=== PATIENT | male | born 1965 | race Caucasian/White ===

== ENCOUNTER 2016-04-11 13:15 | Emergency (ER) | payer MEDICAID, OTHER ==
[~2016-04-11 13:15] MED LIST: /ADVA50050 INH; ACTI300C PO; ADV500INH INH; ADVA115A INH; ALBU17IN INH; ALBU17IN2 INH; ALBU83IN INH; AVAP150T PO; AVAP150T31 PO; AZIT600T PO; BREO1INH3 INH; BUSP10TA PO; BUSP15TA47 PO; BUSP5TA PO; CELE20TA PO; CITA20TA4 PO; CITA40TA4 PO; CLOT10TR MT; DUONSOL INH; FLON1SPR; FOLI1TAB2 PO; FOLI1TAB86 PO; FOLI800T PO; HYDR25T PO; HYDROXYZINE HCL PO; INCR1INH IN; IPRA2IN INH; IPRASOL4 INH; IRBE150T3 PO; LEVOTAB10 PO; MONTELUKAST PO; MUCI600T34 PO; NALT50TA4 PO; NICO14PA EXT; NICO14PA TOP; NICO21PAT EXT; NICO21PAT TD; OMEP40CA2 PO; OXAZ10CA PO; PATA2.5S OU; PRED10TA PO; PRED10TA2 PO; PRED1TAB32 PO; PRED20TA PO; PRED50TA2 PO; Pantoprazole Sodium PO; SING10TA32 PO; SPIR1CAP INH; TRAZ50TA4 PO; TRIA1CR TOP; Thiamine Hcl PO; URSO300C2 PO; VENTAER INH; VIBR100C PO; VITA100T18 PO; VITA500T53 PO; XANA0.25 PO; [UNRECOGNIZED DRUG - REMARK] PO; b 12 PO; citalopram PO; ventolin neb INH
--- NOTE | 2016-04-11 16:14 | EDDOCDS ---
Physician Documentation [facility] Name: Dontae Castillo Age: 51 yrs Sex: Male : 1965 Arrival Date: 04/11/2016 Time: 13:15 Bed Triage 3 Private MD: Selwyn Johnson D Disposition: 04/11/16 16:14 Patient left the facility Before Provider Exam, No Interventions. - Patient left due to Left due to wait time. Historical: - Allergies: Latex (Rash); - Home Meds: 1. Advair Diskus 500-50 mcg/dose Inhl dsdv 1 puff 2 times per day 2. breo eliptical daily 200-25mcg daily 3. citalopram 40 mg Oral tab 1 tab once daily 4. DuoNeb 0.5 mg-3 mg(2.5 mg base)/3 mL Inhl nebu 3 mL 4 times per day 5. Flonase 50 mcg/actuation Nasal spsn 1 spray 2 times per day 6. folic acid 1 mg Oral tab 1 tab once daily 7. hydroxyzine HCl 25 mg Oral tab 1 tab as needed 8. incruse elipta 62.5mg daily daily 9. levocetirizine 5 mg oral tab 1 tab once daily 10. montelukast 10 mg oral tab 1 tab once daily 11. naltrexone 50 mg oral tab 1 tab once daily has not been taking 12. Nasonex 50 mcg/actuation Nasal spry 2 sprays once daily 13. nicotine 14 mg/24 hr TD pt24 1 patch once daily 14. Patanol 0.1 % Opht drop 1 drop as needed 15. ProAir HFA 90 mcg/actuation inhalation HFAA 16. trazodone 50 mg Oral tab as needed 17. triamcinolone acetonide 0.1 % Topical crea as needed as needed 18. Ventolin Rotahaler/Rotacaps Inhl as needed 19. Vitamin B-12 150 mg Oral daily - PMHx: COPD; ETOH abuse; Hypertension; Seasonal Allergies; - PSHx: varicocle ligation; - Social history: Smoking status: Patient uses tobacco products, heavy tobacco smoker. No barriers to communication noted, The patient speaks fluent Montserratian. - : The pt / caregiver states he / she is not on anticoagulants. Home medication list is obtained from [employer] import data. - Exposure Risk Screening:: None identified. Vital Signs: 04/11 13:18 BP 164 / 99; Pulse 84; Resp 18 S; Temp 97.8(O); Pulse Ox 98% on R/A; Weight 70.31 kg / gr2 155.01 lbs (R); Height 5 ft. 10 in. (177.80 cm) (R); Pain 0/10; 13:18 Body Mass Index 22.24 (70.31 kg, 177.80 cm) gr2 Signatures: Melissa Sadler, RN RN Rosie Gomez RN RN dls MTDD
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
--- NOTE | 2016-04-13 17:15 | EDDOCDS ---
Physician Documentation [facility] Name: Dontae Castillo Age: 51 yrs Sex: Male : 1965 Arrival Date: 04/11/2016 Time: 13:15 Bed Triage 3 Private MD: Selwyn Johnson D Disposition: 04/11/16 16:14 Patient left the facility Before Provider Exam, No Interventions. - Patient left due to Left due to wait time. Historical: - Allergies: Latex (Rash); - Home Meds: 1. Advair Diskus 500-50 mcg/dose Inhl dsdv 1 puff 2 times per day 2. breo eliptical daily 200-25mcg daily 3. citalopram 40 mg Oral tab 1 tab once daily 4. DuoNeb 0.5 mg-3 mg(2.5 mg base)/3 mL Inhl nebu 3 mL 4 times per day 5. Flonase 50 mcg/actuation Nasal spsn 1 spray 2 times per day 6. folic acid 1 mg Oral tab 1 tab once daily 7. hydroxyzine HCl 25 mg Oral tab 1 tab as needed 8. incruse elipta 62.5mg daily daily 9. levocetirizine 5 mg oral tab 1 tab once daily 10. montelukast 10 mg oral tab 1 tab once daily 11. naltrexone 50 mg oral tab 1 tab once daily has not been taking 12. Nasonex 50 mcg/actuation Nasal spry 2 sprays once daily 13. nicotine 14 mg/24 hr TD pt24 1 patch once daily 14. Patanol 0.1 % Opht drop 1 drop as needed 15. ProAir HFA 90 mcg/actuation inhalation HFAA 16. trazodone 50 mg Oral tab as needed 17. triamcinolone acetonide 0.1 % Topical crea as needed as needed 18. Ventolin Rotahaler/Rotacaps Inhl as needed 19. Vitamin B-12 150 mg Oral daily - PMHx: COPD; ETOH abuse; Hypertension; Seasonal Allergies; - PSHx: varicocle ligation; - Social history: Smoking status: Patient uses tobacco products, heavy tobacco smoker. No barriers to communication noted, The patient speaks fluent Moldovan. - : The pt / caregiver states he / she is not on anticoagulants. Home medication list is obtained from [employer] import data. - Exposure Risk Screening:: None identified. Vital Signs: 04/11 13:18 BP 164 / 99; Pulse 84; Resp 18 S; Temp 97.8(O); Pulse Ox 98% on R/A; Weight 70.31 kg / gr2 155.01 lbs (R); Height 5 ft. 10 in. (177.80 cm) (R); Pain 0/10; 13:18 Body Mass Index 22.24 (70.31 kg, 177.80 cm) gr2 MDM: 04/12 09:34 Refusal of Services was scanned into [employer] and attached to record. gb Signatures: eMlissa Sadler, RN RN kcs Rosie Lei RN RN dls Eryn Rivera, Reg Reg gb Chart Complete MTDD
--- NOTE | 2016-04-13 17:15 | EDDOCDS ---
Physician Documentation [facility] Name: Dontae Castillo Age: 51 yrs Sex: Male : 1965 Arrival Date: 04/11/2016 Time: 13:15 Bed Triage 3 Private MD: Selwyn Johnson D Disposition: 04/11/16 16:14 Patient left the facility Before Provider Exam, No Interventions. - Patient left due to Left due to wait time. Historical: - Allergies: Latex (Rash); - Home Meds: 1. Advair Diskus 500-50 mcg/dose Inhl dsdv 1 puff 2 times per day 2. breo eliptical daily 200-25mcg daily 3. citalopram 40 mg Oral tab 1 tab once daily 4. DuoNeb 0.5 mg-3 mg(2.5 mg base)/3 mL Inhl nebu 3 mL 4 times per day 5. Flonase 50 mcg/actuation Nasal spsn 1 spray 2 times per day 6. folic acid 1 mg Oral tab 1 tab once daily 7. hydroxyzine HCl 25 mg Oral tab 1 tab as needed 8. incruse elipta 62.5mg daily daily 9. levocetirizine 5 mg oral tab 1 tab once daily 10. montelukast 10 mg oral tab 1 tab once daily 11. naltrexone 50 mg oral tab 1 tab once daily has not been taking 12. Nasonex 50 mcg/actuation Nasal spry 2 sprays once daily 13. nicotine 14 mg/24 hr TD pt24 1 patch once daily 14. Patanol 0.1 % Opht drop 1 drop as needed 15. ProAir HFA 90 mcg/actuation inhalation HFAA 16. trazodone 50 mg Oral tab as needed 17. triamcinolone acetonide 0.1 % Topical crea as needed as needed 18. Ventolin Rotahaler/Rotacaps Inhl as needed 19. Vitamin B-12 150 mg Oral daily - PMHx: COPD; ETOH abuse; Hypertension; Seasonal Allergies; - PSHx: varicocle ligation; - Social history: Smoking status: Patient uses tobacco products, heavy tobacco smoker. No barriers to communication noted, The patient speaks fluent Chinese. - : The pt / caregiver states he / she is not on anticoagulants. Home medication list is obtained from [employer] import data. - Exposure Risk Screening:: None identified. Vital Signs: 04/11 13:18 BP 164 / 99; Pulse 84; Resp 18 S; Temp 97.8(O); Pulse Ox 98% on R/A; Weight 70.31 kg / gr2 155.01 lbs (R); Height 5 ft. 10 in. (177.80 cm) (R); Pain 0/10; 13:18 Body Mass Index 22.24 (70.31 kg, 177.80 cm) gr2 MDM: 04/12 09:34 Refusal of Services was scanned into [email or web address] and attached to record. gb Signatures: Melissa Sadler, RN RN kcs Rosie Lei RN RN dls Eryn Rivera, Reg Reg gb Chart Complete MTDD
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
--- NOTE | 2016-04-14 11:58 | EDDOCDS ---
Physician Documentation [facility] Name: Dontae Castillo Age: 51 yrs Sex: Male : 1965 Arrival Date: 04/11/2016 Time: 13:15 Bed Triage 3 Private MD: Selwyn Johnson D Disposition: 04/11/16 16:14 Patient left the facility Before Provider Exam, No Interventions. - Patient left due to Left due to wait time. Historical: - Allergies: Latex (Rash); - Home Meds: 1. Advair Diskus 500-50 mcg/dose Inhl dsdv 1 puff 2 times per day 2. breo eliptical daily 200-25mcg daily 3. citalopram 40 mg Oral tab 1 tab once daily 4. DuoNeb 0.5 mg-3 mg(2.5 mg base)/3 mL Inhl nebu 3 mL 4 times per day 5. Flonase 50 mcg/actuation Nasal spsn 1 spray 2 times per day 6. folic acid 1 mg Oral tab 1 tab once daily 7. hydroxyzine HCl 25 mg Oral tab 1 tab as needed 8. incruse elipta 62.5mg daily daily 9. levocetirizine 5 mg oral tab 1 tab once daily 10. montelukast 10 mg oral tab 1 tab once daily 11. naltrexone 50 mg oral tab 1 tab once daily has not been taking 12. Nasonex 50 mcg/actuation Nasal spry 2 sprays once daily 13. nicotine 14 mg/24 hr TD pt24 1 patch once daily 14. Patanol 0.1 % Opht drop 1 drop as needed 15. ProAir HFA 90 mcg/actuation inhalation HFAA 16. trazodone 50 mg Oral tab as needed 17. triamcinolone acetonide 0.1 % Topical crea as needed as needed 18. Ventolin Rotahaler/Rotacaps Inhl as needed 19. Vitamin B-12 150 mg Oral daily - PMHx: COPD; ETOH abuse; Hypertension; Seasonal Allergies; - PSHx: varicocle ligation; - Social history: Smoking status: Patient uses tobacco products, heavy tobacco smoker. No barriers to communication noted, The patient speaks fluent Polish. - : The pt / caregiver states he / she is not on anticoagulants. Home medication list is obtained from [employer] import data. - Exposure Risk Screening:: None identified. Vital Signs: 04/11 13:18 BP 164 / 99; Pulse 84; Resp 18 S; Temp 97.8(O); Pulse Ox 98% on R/A; Weight 70.31 kg / gr2 155.01 lbs (R); Height 5 ft. 10 in. (177.80 cm) (R); Pain 0/10; 13:18 Body Mass Index 22.24 (70.31 kg, 177.80 cm) gr2 MDM: 04/12 09:34 Refusal of Services was scanned into [employer] and attached to record. gb Signatures: Melissa Sadler, RN RN Rosie Gomez RN RN dls Eryn Rivera, Reg Reg gb MTDD
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
--- NOTE | 2016-04-14 11:58 | EDDOCDS ---
Physician Documentation [facility] Name: Dontae Castillo Age: 51 yrs Sex: Male : 1965 Arrival Date: 04/11/2016 Time: 13:15 Bed Triage 3 Private MD: Selwyn Johnson D Disposition: 04/11/16 16:14 Patient left the facility Before Provider Exam, No Interventions. - Patient left due to Left due to wait time. Historical: - Allergies: Latex (Rash); - Home Meds: 1. Advair Diskus 500-50 mcg/dose Inhl dsdv 1 puff 2 times per day 2. breo eliptical daily 200-25mcg daily 3. citalopram 40 mg Oral tab 1 tab once daily 4. DuoNeb 0.5 mg-3 mg(2.5 mg base)/3 mL Inhl nebu 3 mL 4 times per day 5. Flonase 50 mcg/actuation Nasal spsn 1 spray 2 times per day 6. folic acid 1 mg Oral tab 1 tab once daily 7. hydroxyzine HCl 25 mg Oral tab 1 tab as needed 8. incruse elipta 62.5mg daily daily 9. levocetirizine 5 mg oral tab 1 tab once daily 10. montelukast 10 mg oral tab 1 tab once daily 11. naltrexone 50 mg oral tab 1 tab once daily has not been taking 12. Nasonex 50 mcg/actuation Nasal spry 2 sprays once daily 13. nicotine 14 mg/24 hr TD pt24 1 patch once daily 14. Patanol 0.1 % Opht drop 1 drop as needed 15. ProAir HFA 90 mcg/actuation inhalation HFAA 16. trazodone 50 mg Oral tab as needed 17. triamcinolone acetonide 0.1 % Topical crea as needed as needed 18. Ventolin Rotahaler/Rotacaps Inhl as needed 19. Vitamin B-12 150 mg Oral daily - PMHx: COPD; ETOH abuse; Hypertension; Seasonal Allergies; - PSHx: varicocle ligation; - Social history: Smoking status: Patient uses tobacco products, heavy tobacco smoker. No barriers to communication noted, The patient speaks fluent Malawian. - : The pt / caregiver states he / she is not on anticoagulants. Home medication list is obtained from [employer] import data. - Exposure Risk Screening:: None identified. Vital Signs: 04/11 13:18 BP 164 / 99; Pulse 84; Resp 18 S; Temp 97.8(O); Pulse Ox 98% on R/A; Weight 70.31 kg / gr2 155.01 lbs (R); Height 5 ft. 10 in. (177.80 cm) (R); Pain 0/10; 13:18 Body Mass Index 22.24 (70.31 kg, 177.80 cm) gr2 MDM: 04/12 09:34 Refusal of Services was scanned into [employer] and attached to record. gb Signatures: Melissa Sadler, RN RN kcs Rosie Lei RN RN dls Eryn Rivera, Reg Reg gb Chart Complete MTDD
--- NOTE | 2016-04-14 11:58 | EDDOCDS ---
Physician Documentation [facility] Name: Dontae Castillo Age: 51 yrs Sex: Male : 1965 Arrival Date: 04/11/2016 Time: 13:15 Bed Triage 3 Private MD: Selwyn Johnson D Disposition: 04/11/16 16:14 Patient left the facility Before Provider Exam, No Interventions. - Patient left due to Left due to wait time. Historical: - Allergies: Latex (Rash); - Home Meds: 1. Advair Diskus 500-50 mcg/dose Inhl dsdv 1 puff 2 times per day 2. breo eliptical daily 200-25mcg daily 3. citalopram 40 mg Oral tab 1 tab once daily 4. DuoNeb 0.5 mg-3 mg(2.5 mg base)/3 mL Inhl nebu 3 mL 4 times per day 5. Flonase 50 mcg/actuation Nasal spsn 1 spray 2 times per day 6. folic acid 1 mg Oral tab 1 tab once daily 7. hydroxyzine HCl 25 mg Oral tab 1 tab as needed 8. incruse elipta 62.5mg daily daily 9. levocetirizine 5 mg oral tab 1 tab once daily 10. montelukast 10 mg oral tab 1 tab once daily 11. naltrexone 50 mg oral tab 1 tab once daily has not been taking 12. Nasonex 50 mcg/actuation Nasal spry 2 sprays once daily 13. nicotine 14 mg/24 hr TD pt24 1 patch once daily 14. Patanol 0.1 % Opht drop 1 drop as needed 15. ProAir HFA 90 mcg/actuation inhalation HFAA 16. trazodone 50 mg Oral tab as needed 17. triamcinolone acetonide 0.1 % Topical crea as needed as needed 18. Ventolin Rotahaler/Rotacaps Inhl as needed 19. Vitamin B-12 150 mg Oral daily - PMHx: COPD; ETOH abuse; Hypertension; Seasonal Allergies; - PSHx: varicocle ligation; - Social history: Smoking status: Patient uses tobacco products, heavy tobacco smoker. No barriers to communication noted, The patient speaks fluent Austrian. - : The pt / caregiver states he / she is not on anticoagulants. Home medication list is obtained from [employer] import data. - Exposure Risk Screening:: None identified. Vital Signs: 04/11 13:18 BP 164 / 99; Pulse 84; Resp 18 S; Temp 97.8(O); Pulse Ox 98% on R/A; Weight 70.31 kg / gr2 155.01 lbs (R); Height 5 ft. 10 in. (177.80 cm) (R); Pain 0/10; 13:18 Body Mass Index 22.24 (70.31 kg, 177.80 cm) gr2 MDM: 04/12 09:34 Refusal of Services was scanned into [employer] and attached to record. gb Signatures: Melissa Sadler, RN RN Rosie Gomez RN RN dls Eryn Rivera, Reg Reg gb MTDD
--- NOTE | 2016-04-14 11:59 | EDDOCDS ---
Physician Documentation [facility] Name: Dontae Castillo Age: 51 yrs Sex: Male : 1965 Arrival Date: 04/11/2016 Time: 13:15 Bed Triage 3 Private MD: Selwyn Johnson D Disposition: 04/11/16 16:14 Patient left the facility Before Provider Exam, No Interventions. - Patient left due to Left due to wait time. Historical: - Allergies: Latex (Rash); - Home Meds: 1. Advair Diskus 500-50 mcg/dose Inhl dsdv 1 puff 2 times per day 2. breo eliptical daily 200-25mcg daily 3. citalopram 40 mg Oral tab 1 tab once daily 4. DuoNeb 0.5 mg-3 mg(2.5 mg base)/3 mL Inhl nebu 3 mL 4 times per day 5. Flonase 50 mcg/actuation Nasal spsn 1 spray 2 times per day 6. folic acid 1 mg Oral tab 1 tab once daily 7. hydroxyzine HCl 25 mg Oral tab 1 tab as needed 8. incruse elipta 62.5mg daily daily 9. levocetirizine 5 mg oral tab 1 tab once daily 10. montelukast 10 mg oral tab 1 tab once daily 11. naltrexone 50 mg oral tab 1 tab once daily has not been taking 12. Nasonex 50 mcg/actuation Nasal spry 2 sprays once daily 13. nicotine 14 mg/24 hr TD pt24 1 patch once daily 14. Patanol 0.1 % Opht drop 1 drop as needed 15. ProAir HFA 90 mcg/actuation inhalation HFAA 16. trazodone 50 mg Oral tab as needed 17. triamcinolone acetonide 0.1 % Topical crea as needed as needed 18. Ventolin Rotahaler/Rotacaps Inhl as needed 19. Vitamin B-12 150 mg Oral daily - PMHx: COPD; ETOH abuse; Hypertension; Seasonal Allergies; - PSHx: varicocle ligation; - Social history: Smoking status: Patient uses tobacco products, heavy tobacco smoker. No barriers to communication noted, The patient speaks fluent Gambian. - : The pt / caregiver states he / she is not on anticoagulants. Home medication list is obtained from [employer] import data. - Exposure Risk Screening:: None identified. Vital Signs: 04/11 13:18 BP 164 / 99; Pulse 84; Resp 18 S; Temp 97.8(O); Pulse Ox 98% on R/A; Weight 70.31 kg / gr2 155.01 lbs (R); Height 5 ft. 10 in. (177.80 cm) (R); Pain 0/10; 13:18 Body Mass Index 22.24 (70.31 kg, 177.80 cm) gr2 MDM: 04/12 09:34 Refusal of Services was scanned into [employer] and attached to record. gb Signatures: Melissa Sadler, RN RN kcs Rosie Lei RN RN dls Eryn Rivera, Reg Reg gb Chart Complete MTDD
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
== END 2016-04-11 16:14 | disposition left against medical advice (07) ==
LOC: M ED 13:15
DX: R06.00 Dyspnea, unspecified (principal); Z53.29 Procedure and treatment not carried out because of patient's decision for other reasons

== ENCOUNTER 2016-04-11 19:07 | Emergency (ER) | payer MEDICAID, OTHER ==
[2016-04-11] MEDS ORDERED: dexameTHASONE 20 MG/5 ML VIAL (J1100) As Ordered ONE (23:25)
[2016-04-11] MEDS ORDERED: IPRATROPIUM 0.5MG/ALBUTEROL 2.5MG INH SOL UD 3ML (DUONEB)(J7620) As Ordered ONE (23:29)
--- NOTE | 2016-04-12 00:57 | EDDOCDS ---
Physician Documentation [facility] Name: Dontae Castillo Age: 51 yrs Sex: Male : 1965 Arrival Date: 04/11/2016 Time: 19:07 Bed 17 Private MD: Selwyn Johnson D Disposition: 04/12/16 00:45 Discharged to Home/Self Care. Impression: Chronic obstructive pulmonary disease, unspecified, Patient's other noncompliance with medication regimen. - Condition is Stable. - Medication Reconciliation, Local Pharmacy Hours form. - Follow up: Selwyn Johnson; When: Call to arrange an appointment; Reason: Recheck today's complaints. - Problem is chronic. - Symptoms have improved. Historical: - Allergies: Latex (Rash); - Home Meds: 1. Advair Diskus 500-50 mcg/dose Inhl dsdv 1 puff 2 times per day 2. breo eliptical daily 200-25mcg daily 3. citalopram 40 mg Oral tab 1 tab once daily 4. DuoNeb 0.5 mg-3 mg(2.5 mg base)/3 mL Inhl nebu 3 mL 4 times per day 5. folic acid 1 mg Oral tab 1 tab once daily 6. hydroxyzine HCl 25 mg Oral tab 1 tab as needed 7. incruse elipta 62.5mg daily daily 8. levocetirizine 5 mg oral tab 1 tab once daily 9. montelukast 10 mg oral tab 1 tab once daily 10. naltrexone 50 mg oral tab 1 tab once daily has not been taking 11. nicotine 14 mg/24 hr TD pt24 1 patch once daily 12. Patanol 0.1 % Opht drop 1 drop as needed 13. ProAir HFA 90 mcg/actuation inhalation HFAA prn 14. trazodone 50 mg Oral tab as needed 15. Vitamin B-12 150 mg Oral daily - PMHx: COPD; ETOH abuse; Hypertension; Seasonal Allergies; - PSHx: varicocele ligation; - Social history: Smoking status: Patient uses tobacco products, current every day smoker. No barriers to communication noted, The patient speaks fluent Italian. - Family history: Not pertinent. - : The pt / caregiver states he / she is not on anticoagulants. Home medication list is obtained from the patient, [employer] import data. - Exposure Risk Screening:: None identified. Vital Signs: 02/13 19:09 BP 158 / 109; Pulse 84; Resp 18 S; Temp 97.0(O); Pulse Ox 97% on 3 lpm NC; Weight 70.31 gr2 kg / 155.01 lbs (R); Height 5 ft. 10 in. (177.80 cm) (R); Pain 4/10; 23:07 BP 158 / 96 (auto/); mgs 23:08 Pulse Ox 96% ; mgs 23:09 Pulse 92 MON; Pulse Ox 95% ; mgs 04/12 00:41 Pulse 102; Resp 20; Pulse Ox 94% on R/A; mgs 00:55 Temp 97.1; mgs 04/11 19:09 Body Mass Index 22.24 (70.31 kg, 177.80 cm) gr2 MDM: 04/11 23:04 Chest, 2 View (pa\E\lat) Ordered. EDFL 23:22 Albuterol-Ipratropium 1 neb Nebulizer every 20 minutes x3 ordered. [facility] 23:22 Call Respiratory ordered. 11 23:22 Decadron - Dexamethasone Sodium Phosphate 10 mg IM once ordered. 11 23:23 Call Respiratory complete. mgs 04/12 00:40 Financial registration complete. hs2 Administered Medications: 04/11 23:30 Drug: Albuterol-Ipratropium 1 neb [ipratropium-albuterol 0.5 mg-3 mg(2.5 mg base)/3 mL 6 nebulization soln (1 neb)] Route: Nebulizer; 23:31 Drug: Decadron - Dexamethasone Sodium Phosphate 10 mg [dexamethasone 4 mg/mL injection mgs solution (2.5 mL)] Route: IM; Site: right gluteus; 23:54 Drug: Albuterol-Ipratropium 1 neb [ipratropium-albuterol 0.5 mg-3 mg(2.5 mg base)/3 mL jh6 nebulization soln (1 neb)] Route: Nebulizer; Signatures: Dispatcher [employer] EDMS Virginia Barker RN RN jjr Schiff, Craig, DO DO cs11 Marco Williamson RN RN mgs Talya Kellogg, Reg Reg hs2 Jose Umana 6 MTDD
--- NOTE | 2016-04-12 00:57 | EDDOCDS ---
Nurse's Notes [facility] Name: Dontae Castillo Age: 51 yrs Sex: Male : 1965 Arrival Date: 04/11/2016 Time: 19:07 Bed 17 Private MD: Selwyn Johnson D Diagnosis: Chronic obstructive pulmonary disease, unspecified;Patient's other noncompliance with medication regimen Presentation: 04/11 19:21 Presenting complaint: Patient states: increasing shortness of breath today, reports jjr drinking today. Adult Sepsis Screening: The patient does not have new or worsening altered mentation. Patient's respiratory rate is less than 22. Systolic blood pressure is greater than 100. Patient has a qSOFA score of 0- Negative Sepsis Screen. Suicide/Homicide risk assessment- the patient denies having any suicidal and/or homicidal ideations and does not present with any other emotional, behavioral or mental health complaints. Status: Patient is not a service clerk or dependent. Transition of care: patient was not received from another setting of care. 19:21 Acuity: LAVERNE Level 3 jjr 19:21 Method Of Arrival: Wheelchair jjr Triage Assessment: 19:27 General: Appears in no apparent distress, Behavior is appropriate for age, cooperative. jjr General: nasal cannula in place. Pain: Denies pain. HIV screening NA for this visit Offered previously. Respiratory: Onset: The symptoms/episode began/occurred today, Airway is patent Respiratory effort is even, unlabored, Respiratory pattern is regular. 22:27 General: pt was not available when called as noted, pt now returns with larger oxygen jjr tank stating he left to switch from portable tank. Historical: - Allergies: Latex (Rash); - Home Meds: 1. Advair Diskus 500-50 mcg/dose Inhl dsdv 1 puff 2 times per day 2. breo eliptical daily 200-25mcg daily 3. citalopram 40 mg Oral tab 1 tab once daily 4. DuoNeb 0.5 mg-3 mg(2.5 mg base)/3 mL Inhl nebu 3 mL 4 times per day 5. folic acid 1 mg Oral tab 1 tab once daily 6. hydroxyzine HCl 25 mg Oral tab 1 tab as needed 7. incruse elipta 62.5mg daily daily 8. levocetirizine 5 mg oral tab 1 tab once daily 9. montelukast 10 mg oral tab 1 tab once daily 10. naltrexone 50 mg oral tab 1 tab once daily has not been taking 11. nicotine 14 mg/24 hr TD pt24 1 patch once daily 12. Patanol 0.1 % Opht drop 1 drop as needed 13. ProAir HFA 90 mcg/actuation inhalation HFAA prn 14. trazodone 50 mg Oral tab as needed 15. Vitamin B-12 150 mg Oral daily - PMHx: COPD; ETOH abuse; Hypertension; Seasonal Allergies; - PSHx: varicocele ligation; - Social history: Smoking status: Patient uses tobacco products, current every day smoker. No barriers to communication noted, The patient speaks fluent Chilean. - Family history: Not pertinent. - : The pt / caregiver states he / she is not on anticoagulants. Home medication list is obtained from the patient, [employer] import data. - Exposure Risk Screening:: None identified. Screenin:17 Infection Control. gr2 04/12 00:41 Screening information is obtained from the patient. Fall risk: No risks identified. mgs Assistance ADL's: requires no assistance with activities of daily living. Abuse/DV Screen: The patient / caregiver reports he/she is: not in a situation that causes fear, pain or injury. Nutritional screening: No deficits noted. Advance Directives: Currently, there is a health care proxy, Luis Alberto Castillo, brother. There is no active DNR order. 00:41 home support is adequate. mgs Assessment: 04/11 21:47 General: Alejandro TOLL OPERATOR/Reg states pt left approx 30 minutes ago, pt is not in waiting jjr room or bathrooms. 23:11 General: Appears in no apparent distress, Behavior is cooperative. Pain: Denies pain. mgs Neurological: Level of Consciousness is awake, alert, Oriented to person, place, time. Cardiovascular: Capillary refill < 3 seconds Heart tones S1 S2 present Pulses are 2+ in right radial artery and left radial artery. Respiratory: Airway is patent Respiratory effort is even, unlabored, Respiratory pattern is regular, symmetrical, Breath sounds with rhonchi expiratory bilaterally. Breath sounds are diminished bilaterally. Breath sounds with wheezes expiratory bilaterally. Derm: Skin is pink, warm & dry. 23:11 General: Patient states has not taken any of his meds today and that his last buspirone mgs was at 0300.. 23:36 General: Appears in no apparent distress, Behavior is cooperative. Neurological: Level mgs of Consciousness is awake, alert, Oriented to person, place, time. Cardiovascular: Capillary refill < 3 seconds. Respiratory: Airway is patent Respiratory effort is even, unlabored, Respiratory pattern is regular, symmetrical. Derm: Skin is pink, warm & dry. 04/12 00:31 General: Appears in no apparent distress, Behavior is appropriate for age, cooperative. mgs Neurological: Level of Consciousness is awake, alert, Oriented to person, place, time. Cardiovascular: Capillary refill < 3 seconds. Respiratory: Airway is patent Respiratory effort is even, unlabored, Respiratory pattern is regular, symmetrical. Derm: Skin is pink, warm & dry. Vital Signs: 04/11 19:09 BP 158 / 109; Pulse 84; Resp 18 S; Temp 97.0(O); Pulse Ox 97% on 3 lpm NC; Weight 70.31 gr2 kg (R); Height 5 ft. 10 in. (177.80 cm) (R); Pain 4/10; 23:07 BP 158 / 96 (auto/); mgs 23:08 Pulse Ox 96% ; mgs 23:09 Pulse 92 MON; Pulse Ox 95% ; mgs 04/12 00:41 Pulse 102; Resp 20; Pulse Ox 94% on R/A; mgs 00:55 Temp 97.1; mgs 04/11 19:09 Body Mass Index 22.24 (70.31 kg, 177.80 cm) gr2 Vitals: 04/11 19:09 Log In Time: April 11, 2016 at 19:09. gr2 ED Course: 19:08 Patient visited by Alexa Barker. gr2 19:08 Selwyn Johnson is Private Physician. gr2 19:08 Patient moved to Waiting gr2 19:10 Patient visited by Alexa Barker. gr2 19:10 Patient moved to Pre RCE gr2 19:23 Triage Initiated jjr 22:57 Patient moved to 17 kb5 23:00 Marco Williamson,JAMES is Primary Nurse. mgs 23:01 August Barone DO is Attending Physician. cs11 23:03 Patient visited by August Barone DO. cs11 23:36 Patient visited by Marco Williamson RN. mgs 04/12 00:38 Patient visited by Marco Williamson RN. mgs 00:41 The patient / caregiver is instructed regarding the plan of care and ED course. mgs 00:45 Selwyn Johnson is Referral Physician. cs11 00:55 No procedures done that require assistance. mgs 00:56 No IV's were initiated during this patient's visit. mgs Administered Medications: 04/11 23:30 Drug: Albuterol-Ipratropium 1 neb [ipratropium-albuterol 0.5 mg-3 mg(2.5 mg base)/3 mL jh6 nebulization soln (1 neb)] Route: Nebulizer; 23:31 Drug: Decadron - Dexamethasone Sodium Phosphate 10 mg [dexamethasone 4 mg/mL injection mgs solution (2.5 mL)] Route: IM; Site: right gluteus; 23:54 Drug: Albuterol-Ipratropium 1 neb [ipratropium-albuterol 0.5 mg-3 mg(2.5 mg base)/3 mL jh6 nebulization soln (1 neb)] Route: Nebulizer; RT: 23:30 Initial Med Neb Given as ordered Patient was instructed and evaluated on procedure jh6 Patient tolerated procedure well without adverse effect. Respiratory: Airway is patent Respiratory effort is even, unlabored, Respiratory pattern is regular symmetrical, Breath sounds are coarse in left posterior upper lobe, right posterior upper lobe, left posterior lower lobe, right posterior middle lobe and right posterior lower lobe Breath sounds with wheezes in left posterior upper lobe, right posterior upper lobe, left posterior lower lobe, right posterior middle lobe and right posterior lower lobe at expiration. 23:54 Subsequent Med Neb Given as ordered Patient was reinforced on procedure Patient jh6 tolerated procedure well without adverse effect. Respiratory: Airway is patent Respiratory effort is even, unlabored, Respiratory pattern is regular symmetrical, Breath sounds are coarse in left posterior upper lobe, right posterior upper lobe, left posterior lower lobe, right posterior middle lobe and right posterior lower lobe Breath sounds with rhonchi in left posterior upper lobe, right posterior upper lobe, left posterior lower lobe, right posterior middle lobe and right posterior lower lobe Reports IMPROVEMENT AFTER FIRST NEB. Order Results: There are currently no results for this order. Outcome: 21:48 Left without being seen: Unknown reason, and the Refusal of Services form completed and jjr entered into the chart. 21:48 Patient left the ED. jjr 04/12 00:45 Discharge ordered by Provider. cs11 00:55 Discharge Assessment: Patient awake, alert and oriented x 3. No cognitive and/or mgs functional deficits noted. Patient verbalized understanding of disposition instructions. patient administered narcotics - no. The following High Risk Discharge criteria are identified: None. Discharged to home ambulatory. Condition: stable. Discharge instructions given to patient, Instructed on discharge instructions, follow up and referral plans. Demonstrated understanding of instructions, Pt was receptive of discharge instructions/ teaching. No special radiology studies were completed. Property sent home with patient. 00:56 Patient left the ED. mgs Signatures: Ace English, TOLL OPERATOR TOLL OPERATOR kb5 Virginia Barker, RN RN Jose Moreno 6 August Barone, DO cs11 Alexa Barker gr2 Marco Williamson,JAMES RN mgs Corrections: (The following items were deleted from the chart) 04/11 23:12 23:11 Respiratory: Airway is patent Respiratory effort is even, unlabored, Respiratory mgs pattern is regular, symmetrical, Breath sounds are diminished bilaterally. Breath sounds with wheezes expiratory bilaterally. mgs MTDD
--- NOTE | 2016-04-12 07:56 | REP ---
Clinical: Acute shortness of breath . Comparison: 02/09/2016 . Technique: PA and lateral. Findings: The mediastinum and cardiac silhouette are normal. The lung garcia are clear and without acute consolidation, effusion, or pneumothorax. The skeletal structures are intact and normal. Impression: 1. No acute cardiopulmonary process. Signed by Flex Forrest MD 04/12/2016 07:48 A
--- NOTE | 2016-04-14 01:56 | EDDOCDS ---
Physician Documentation [facility] Name: Dontae Castillo Age: 51 yrs Sex: Male : 1965 Arrival Date: 04/11/2016 Time: 19:07 Bed 17 Private MD: Selwyn Johnson D Disposition: 04/12/16 00:45 Discharged to Home/Self Care. Impression: Chronic obstructive pulmonary disease, unspecified, Patient's other noncompliance with medication regimen. - Condition is Stable. - Medication Reconciliation, Local Pharmacy Hours form. - Follow up: Selwyn Johnson; When: Call to arrange an appointment; Reason: Recheck today's complaints. - Problem is chronic. - Symptoms have improved. Historical: - Allergies: Latex (Rash); - Home Meds: 1. Advair Diskus 500-50 mcg/dose Inhl dsdv 1 puff 2 times per day 2. breo eliptical daily 200-25mcg daily 3. citalopram 40 mg Oral tab 1 tab once daily 4. DuoNeb 0.5 mg-3 mg(2.5 mg base)/3 mL Inhl nebu 3 mL 4 times per day 5. folic acid 1 mg Oral tab 1 tab once daily 6. hydroxyzine HCl 25 mg Oral tab 1 tab as needed 7. incruse elipta 62.5mg daily daily 8. levocetirizine 5 mg oral tab 1 tab once daily 9. montelukast 10 mg oral tab 1 tab once daily 10. naltrexone 50 mg oral tab 1 tab once daily has not been taking 11. nicotine 14 mg/24 hr TD pt24 1 patch once daily 12. Patanol 0.1 % Opht drop 1 drop as needed 13. ProAir HFA 90 mcg/actuation inhalation HFAA prn 14. trazodone 50 mg Oral tab as needed 15. Vitamin B-12 150 mg Oral daily - PMHx: COPD; ETOH abuse; Hypertension; Seasonal Allergies; - PSHx: varicocele ligation; - Social history: Smoking status: Patient uses tobacco products, current every day smoker. No barriers to communication noted, The patient speaks fluent Polish. - Family history: Not pertinent. - : The pt / caregiver states he / she is not on anticoagulants. Home medication list is obtained from the patient, [employer] import data. - Exposure Risk Screening:: None identified. Vital Signs: 02/13 19:09 BP 158 / 109; Pulse 84; Resp 18 S; Temp 97.0(O); Pulse Ox 97% on 3 lpm NC; Weight 70.31 gr2 kg / 155.01 lbs (R); Height 5 ft. 10 in. (177.80 cm) (R); Pain 4/10; 23:07 BP 158 / 96 (auto/); mgs 23:08 Pulse Ox 96% ; mgs 23:09 Pulse 92 MON; Pulse Ox 95% ; mgs 04/12 00:41 Pulse 102; Resp 20; Pulse Ox 94% on R/A; mgs 00:55 Temp 97.1; mgs 04/11 19:09 Body Mass Index 22.24 (70.31 kg, 177.80 cm) gr2 MDM: 04/11 23:04 Chest, 2 View (pa\E\lat) Ordered. EDMS 23:22 Albuterol-Ipratropium 1 neb Nebulizer every 20 minutes x3 ordered. cs11 23:22 Call Respiratory ordered. cs11 23:22 Decadron - Dexamethasone Sodium Phosphate 10 mg IM once ordered. cs11 23:23 Call Respiratory complete. mgs 04/12 00:40 Financial registration complete. hs2 01:37 [facility] was scanned into [employer] and attached to record. hs2 09:34 T-Sheet-- Draft Copy was scanned into [employer] and attached to record. gb 09:37 Refusal of Services was scanned into [employer] and attached to record. gb Administered Medications: 04/11 23:30 Drug: Albuterol-Ipratropium 1 neb [ipratropium-albuterol 0.5 mg-3 mg(2.5 mg base)/3 mL jh6 nebulization soln (1 neb)] Route: Nebulizer; 23:31 Drug: Decadron - Dexamethasone Sodium Phosphate 10 mg [dexamethasone 4 mg/mL injection mgs solution (2.5 mL)] Route: IM; Site: right gluteus; 23:54 Drug: Albuterol-Ipratropium 1 neb [ipratropium-albuterol 0.5 mg-3 mg(2.5 mg base)/3 mL jh6 nebulization soln (1 neb)] Route: Nebulizer; Signatures: Dispatcher [employer] Eryn Geronimo, Reg Reg gb Virginia Barker, JAMES RN August Gallagher, DO cs11 Marco Williamson,JAMES RN Talya Bridges, Reg Reg hs2 Jose Umana jh6 The chart was reviewed and I authenticate all verbal orders and agree with the evaluation and treatment provided.Attachments: 04/12 01:37 [facility] Agreement hs2 09:34 T-Sheet-- Draft Copy gb Chart Complete MTDD
--- NOTE | 2016-04-14 01:56 | EDDOCDS ---
Physician Documentation [facility] Name: Dontae Castillo Age: 51 yrs Sex: Male : 1965 Arrival Date: 04/11/2016 Time: 19:07 Bed 17 Private MD: Selwyn Johnson D Disposition: 04/12/16 00:45 Discharged to Home/Self Care. Impression: Chronic obstructive pulmonary disease, unspecified, Patient's other noncompliance with medication regimen. - Condition is Stable. - Medication Reconciliation, Local Pharmacy Hours form. - Follow up: Selwyn Johnson; When: Call to arrange an appointment; Reason: Recheck today's complaints. - Problem is chronic. - Symptoms have improved. Historical: - Allergies: Latex (Rash); - Home Meds: 1. Advair Diskus 500-50 mcg/dose Inhl dsdv 1 puff 2 times per day 2. breo eliptical daily 200-25mcg daily 3. citalopram 40 mg Oral tab 1 tab once daily 4. DuoNeb 0.5 mg-3 mg(2.5 mg base)/3 mL Inhl nebu 3 mL 4 times per day 5. folic acid 1 mg Oral tab 1 tab once daily 6. hydroxyzine HCl 25 mg Oral tab 1 tab as needed 7. incruse elipta 62.5mg daily daily 8. levocetirizine 5 mg oral tab 1 tab once daily 9. montelukast 10 mg oral tab 1 tab once daily 10. naltrexone 50 mg oral tab 1 tab once daily has not been taking 11. nicotine 14 mg/24 hr TD pt24 1 patch once daily 12. Patanol 0.1 % Opht drop 1 drop as needed 13. ProAir HFA 90 mcg/actuation inhalation HFAA prn 14. trazodone 50 mg Oral tab as needed 15. Vitamin B-12 150 mg Oral daily - PMHx: COPD; ETOH abuse; Hypertension; Seasonal Allergies; - PSHx: varicocele ligation; - Social history: Smoking status: Patient uses tobacco products, current every day smoker. No barriers to communication noted, The patient speaks fluent Greenlandic. - Family history: Not pertinent. - : The pt / caregiver states he / she is not on anticoagulants. Home medication list is obtained from the patient, [employer] import data. - Exposure Risk Screening:: None identified. Vital Signs: 02/13 19:09 BP 158 / 109; Pulse 84; Resp 18 S; Temp 97.0(O); Pulse Ox 97% on 3 lpm NC; Weight 70.31 gr2 kg / 155.01 lbs (R); Height 5 ft. 10 in. (177.80 cm) (R); Pain 4/10; 23:07 BP 158 / 96 (auto/); mgs 23:08 Pulse Ox 96% ; mgs 23:09 Pulse 92 MON; Pulse Ox 95% ; mgs 04/12 00:41 Pulse 102; Resp 20; Pulse Ox 94% on R/A; mgs 00:55 Temp 97.1; mgs 04/11 19:09 Body Mass Index 22.24 (70.31 kg, 177.80 cm) gr2 MDM: 04/11 23:04 Chest, 2 View (pa\E\lat) Ordered. EDMS 23:22 Albuterol-Ipratropium 1 neb Nebulizer every 20 minutes x3 ordered. cs11 23:22 Call Respiratory ordered. cs11 23:22 Decadron - Dexamethasone Sodium Phosphate 10 mg IM once ordered. cs11 23:23 Call Respiratory complete. mgs 04/12 00:40 Financial registration complete. hs2 01:37 [facility] was scanned into [employer] and attached to record. hs2 09:34 T-Sheet-- Draft Copy was scanned into [employer] and attached to record. gb 09:37 Refusal of Services was scanned into [employer] and attached to record. gb Administered Medications: 04/11 23:30 Drug: Albuterol-Ipratropium 1 neb [ipratropium-albuterol 0.5 mg-3 mg(2.5 mg base)/3 mL jh6 nebulization soln (1 neb)] Route: Nebulizer; 23:31 Drug: Decadron - Dexamethasone Sodium Phosphate 10 mg [dexamethasone 4 mg/mL injection mgs solution (2.5 mL)] Route: IM; Site: right gluteus; 23:54 Drug: Albuterol-Ipratropium 1 neb [ipratropium-albuterol 0.5 mg-3 mg(2.5 mg base)/3 mL jh6 nebulization soln (1 neb)] Route: Nebulizer; Signatures: Dispatcher [employer] Eryn Geronimo, Reg Reg gb Virginia Barker, JAMES RN August Gallagher, DO cs11 Marco Williamson,JAMES RN Talya Bridges, Reg Reg hs2 Jose Umana jh6 The chart was reviewed and I authenticate all verbal orders and agree with the evaluation and treatment provided.Attachments: 04/12 01:37 [facility] Agreement hs2 09:34 T-Sheet-- Draft Copy gb Chart Complete MTDD
--- NOTE | 2016-04-14 01:56 | EDDOCDS ---
Nurse's Notes [facility] Name: Dontae Castillo Age: 51 yrs Sex: Male : 1965 Arrival Date: 04/11/2016 Time: 19:07 Bed 17 Private MD: Selwyn Johnson D Diagnosis: Chronic obstructive pulmonary disease, unspecified;Patient's other noncompliance with medication regimen Presentation: 04/11 19:21 Presenting complaint: Patient states: increasing shortness of breath today, reports jjr drinking today. Adult Sepsis Screening: The patient does not have new or worsening altered mentation. Patient's respiratory rate is less than 22. Systolic blood pressure is greater than 100. Patient has a qSOFA score of 0- Negative Sepsis Screen. Suicide/Homicide risk assessment- the patient denies having any suicidal and/or homicidal ideations and does not present with any other emotional, behavioral or mental health complaints. Status: Patient is not a nutrition services manager or dependent. Transition of care: patient was not received from another setting of care. 19:21 Acuity: LAVERNE Level 3 jjr 19:21 Method Of Arrival: Wheelchair jjr Triage Assessment: 19:27 General: Appears in no apparent distress, Behavior is appropriate for age, cooperative. jjr General: nasal cannula in place. Pain: Denies pain. HIV screening NA for this visit Offered previously. Respiratory: Onset: The symptoms/episode began/occurred today, Airway is patent Respiratory effort is even, unlabored, Respiratory pattern is regular. 22:27 General: pt was not available when called as noted, pt now returns with larger oxygen jjr tank stating he left to switch from portable tank. Historical: - Allergies: Latex (Rash); - Home Meds: 1. Advair Diskus 500-50 mcg/dose Inhl dsdv 1 puff 2 times per day 2. breo eliptical daily 200-25mcg daily 3. citalopram 40 mg Oral tab 1 tab once daily 4. DuoNeb 0.5 mg-3 mg(2.5 mg base)/3 mL Inhl nebu 3 mL 4 times per day 5. folic acid 1 mg Oral tab 1 tab once daily 6. hydroxyzine HCl 25 mg Oral tab 1 tab as needed 7. incruse elipta 62.5mg daily daily 8. levocetirizine 5 mg oral tab 1 tab once daily 9. montelukast 10 mg oral tab 1 tab once daily 10. naltrexone 50 mg oral tab 1 tab once daily has not been taking 11. nicotine 14 mg/24 hr TD pt24 1 patch once daily 12. Patanol 0.1 % Opht drop 1 drop as needed 13. ProAir HFA 90 mcg/actuation inhalation HFAA prn 14. trazodone 50 mg Oral tab as needed 15. Vitamin B-12 150 mg Oral daily - PMHx: COPD; ETOH abuse; Hypertension; Seasonal Allergies; - PSHx: varicocele ligation; - Social history: Smoking status: Patient uses tobacco products, current every day smoker. No barriers to communication noted, The patient speaks fluent Yemeni. - Family history: Not pertinent. - : The pt / caregiver states he / she is not on anticoagulants. Home medication list is obtained from the patient, [employer] import data. - Exposure Risk Screening:: None identified. Screenin:17 Infection Control. gr2 04/12 00:41 Screening information is obtained from the patient. Fall risk: No risks identified. mgs Assistance ADL's: requires no assistance with activities of daily living. Abuse/DV Screen: The patient / caregiver reports he/she is: not in a situation that causes fear, pain or injury. Nutritional screening: No deficits noted. Advance Directives: Currently, there is a health care proxy, Luis Alberto Castillo, brother. There is no active DNR order. 00:41 home support is adequate. mgs Assessment: 04/11 21:47 General: Alejandro RESIDENTIAL PROPERTY MANAGER/Reg states pt left approx 30 minutes ago, pt is not in waiting jjr room or bathrooms. 23:11 General: Appears in no apparent distress, Behavior is cooperative. Pain: Denies pain. mgs Neurological: Level of Consciousness is awake, alert, Oriented to person, place, time. Cardiovascular: Capillary refill < 3 seconds Heart tones S1 S2 present Pulses are 2+ in right radial artery and left radial artery. Respiratory: Airway is patent Respiratory effort is even, unlabored, Respiratory pattern is regular, symmetrical, Breath sounds with rhonchi expiratory bilaterally. Breath sounds are diminished bilaterally. Breath sounds with wheezes expiratory bilaterally. Derm: Skin is pink, warm & dry. 23:11 General: Patient states has not taken any of his meds today and that his last buspirone mgs was at 0300.. 23:36 General: Appears in no apparent distress, Behavior is cooperative. Neurological: Level mgs of Consciousness is awake, alert, Oriented to person, place, time. Cardiovascular: Capillary refill < 3 seconds. Respiratory: Airway is patent Respiratory effort is even, unlabored, Respiratory pattern is regular, symmetrical. Derm: Skin is pink, warm & dry. 04/12 00:31 General: Appears in no apparent distress, Behavior is appropriate for age, cooperative. mgs Neurological: Level of Consciousness is awake, alert, Oriented to person, place, time. Cardiovascular: Capillary refill < 3 seconds. Respiratory: Airway is patent Respiratory effort is even, unlabored, Respiratory pattern is regular, symmetrical. Derm: Skin is pink, warm & dry. Vital Signs: 04/11 19:09 BP 158 / 109; Pulse 84; Resp 18 S; Temp 97.0(O); Pulse Ox 97% on 3 lpm NC; Weight 70.31 gr2 kg (R); Height 5 ft. 10 in. (177.80 cm) (R); Pain 4/10; 23:07 BP 158 / 96 (auto/); mgs 23:08 Pulse Ox 96% ; mgs 23:09 Pulse 92 MON; Pulse Ox 95% ; mgs 04/12 00:41 Pulse 102; Resp 20; Pulse Ox 94% on R/A; mgs 00:55 Temp 97.1; mgs 04/11 19:09 Body Mass Index 22.24 (70.31 kg, 177.80 cm) gr2 Vitals: 04/11 19:09 Log In Time: April 11, 2016 at 19:09. gr2 ED Course: 19:08 Patient visited by Alexa Barker. gr2 19:08 Selwyn Johnson is Private Physician. gr2 19:08 Patient moved to Waiting gr2 19:10 Patient visited by Alexa Barker. gr2 19:10 Patient moved to Pre RCE gr2 19:23 Triage Initiated jjr 22:57 Patient moved to 17 kb5 23:00 Marco Williamson,JAMES is Primary Nurse. mgs 23:01 August Barone DO is Attending Physician. cs11 23:03 Patient visited by August Barone DO. cs11 23:36 Patient visited by Marco Williamson RN. mgs 04/12 00:38 Patient visited by Marco Williamson RN. mgs 00:41 The patient / caregiver is instructed regarding the plan of care and ED course. mgs 00:45 Selwyn Johnson is Referral Physician. cs11 00:55 No procedures done that require assistance. mgs 00:56 No IV's were initiated during this patient's visit. mgs 01:37 [facility] Payment Agreement was scanned into [email or web address] and attached to record. hs2 08:07 Chest, 2 View (pa\E\lat) Returned. EDMS 09:34 T-Sheet-- Draft Copy was scanned into [email or web address] and attached to record. gb 09:37 Refusal of Services was scanned into [employer] and attached to record. gb Administered Medications: 04/11 23:30 Drug: Albuterol-Ipratropium 1 neb [ipratropium-albuterol 0.5 mg-3 mg(2.5 mg base)/3 mL jh6 nebulization soln (1 neb)] Route: Nebulizer; 23:31 Drug: Decadron - Dexamethasone Sodium Phosphate 10 mg [dexamethasone 4 mg/mL injection mgs solution (2.5 mL)] Route: IM; Site: right gluteus; 23:54 Drug: Albuterol-Ipratropium 1 neb [ipratropium-albuterol 0.5 mg-3 mg(2.5 mg base)/3 mL jh6 nebulization soln (1 neb)] Route: Nebulizer; Attachments: 09:37 Refusal of Services gb RT: 04/11 23:30 Initial Med Neb Given as ordered Patient was instructed and evaluated on procedure jh6 Patient tolerated procedure well without adverse effect. Respiratory: Airway is patent Respiratory effort is even, unlabored, Respiratory pattern is regular symmetrical, Breath sounds are coarse in left posterior upper lobe, right posterior upper lobe, left posterior lower lobe, right posterior middle lobe and right posterior lower lobe Breath sounds with wheezes in left posterior upper lobe, right posterior upper lobe, left posterior lower lobe, right posterior middle lobe and right posterior lower lobe at expiration. 23:54 Subsequent Med Neb Given as ordered Patient was reinforced on procedure Patient jh6 tolerated procedure well without adverse effect. Respiratory: Airway is patent Respiratory effort is even, unlabored, Respiratory pattern is regular symmetrical, Breath sounds are coarse in left posterior upper lobe, right posterior upper lobe, left posterior lower lobe, right posterior middle lobe and right posterior lower lobe Breath sounds with rhonchi in left posterior upper lobe, right posterior upper lobe, left posterior lower lobe, right posterior middle lobe and right posterior lower lobe Reports IMPROVEMENT AFTER FIRST NEB. Order Results: Radiology Order: Chest, 2 View (pa\E\lat) Test: Chest, 2 View (pa\E\lat) REASON FOR EXAMINATION: Shortness of Breath; Clinical: Acute shortness of breath .; ; Comparison: 02/09/2016 .; ; Technique: PA and lateral.; ; Findings:; The mediastinum and cardiac silhouette are normal. The lung garcia are clear and; without acute consolidation, effusion, or pneumothorax. The skeletal structures; are intact and normal.; ; Impression:; 1. No acute cardiopulmonary process.; ; ; Signed by; Flex Forrest MD 04/12/2016 07:48 A; Outcome: 21:48 Left without being seen: Unknown reason, and the Refusal of Services form completed and jjr entered into the chart. 21:48 Patient left the ED. jjr 04/12 00:45 Discharge ordered by Provider. cs11 00:55 Discharge Assessment: Patient awake, alert and oriented x 3. No cognitive and/or mgs functional deficits noted. Patient verbalized understanding of disposition instructions. patient administered narcotics - no. The following High Risk Discharge criteria are identified: None. Discharged to home ambulatory. Condition: stable. Discharge instructions given to patient, Instructed on discharge instructions, follow up and referral plans. Demonstrated understanding of instructions, Pt was receptive of discharge instructions/ teaching. No special radiology studies were completed. Property sent home with patient. 00:56 Patient left the ED. mgs Signatures: Dispatcher [employer] EDMS Eryn Rivera, Reg Reg gb Amador, Ace, RESIDENTIAL PROPERTY MANAGER RESIDENTIAL PROPERTY MANAGER kb5 Virginia Barker, RN RN Jose Moreno jh6 August Barone DO DO cs11 Alexa Barker gr2 Marco Williamson RN RN mgs Talya Kellogg, Reg Reg hs2 Corrections: (The following items were deleted from the chart) 04/11 23:12 23:11 Respiratory: Airway is patent Respiratory effort is even, unlabored, Respiratory mgs pattern is regular, symmetrical, Breath sounds are diminished bilaterally. Breath sounds with wheezes expiratory bilaterally. mgs Chart Complete MTDD
== END 2016-04-11 21:47 | disposition left against medical advice (07) ==
LOC: M ED 19:07
DX: J44.9 Chronic obstructive pulmonary disease, unspecified (principal); Z91.19 Patient's noncompliance with other medical treatment and regimen; I10 Essential (primary) hypertension; F10.10 Alcohol abuse, uncomplicated; J30.2 Other seasonal allergic rhinitis; Z79.899 Other long term (current) drug therapy; Z79.51 Long term (current) use of inhaled steroids; Z91.040 Latex allergy status; F17.210 Nicotine dependence, cigarettes, uncomplicated

== ENCOUNTER 2016-04-17 00:06 | Inpatient (IN) | payer OTHER ==
[2016-04-17] VITALS (9 sets, daily range): BP systolic 117–162; BP diastolic 66–90
[~2016-04-17] VITALS: Ht 180.3 cm; Wt 64.3 kg
[2016-04-17] MEDS ORDERED: IPRATROPIUM 0.5MG/ALBUTEROL 2.5MG INH SOL UD 3ML (DUONEB)(J7620) As Ordered ONE ×5 (00:39→23:28)
[2016-04-17] MEDS ORDERED: ACETAMINOPHEN TAB 650MG DOSE (2X325MG) As Ordered ONE ×2 (00:43→08:29)
[2016-04-17 01:36] LABS: ADD MORPHOLOGY? YES; BASO % 0.1 % (0.0-1.0); EOS % 0.3 % (0.0-3.0); LARGE UNSTAINED CELL # 0.2 K/mm3 (0.0-0.4); LARGE UNSTAINED CELL % 1.5 % (0.0-4.0); LYMPH # 2.3 K/mm3 (1.5-4.5); LYMPH % 17.5 % (24.0-44.0); MEAN CORPUSCULAR HEMOGLOBIN 32.6 pg (27.0-33.0); MEAN CORPUSCULAR HGB CONC 33.9 g/dl (32.0-36.5); MEAN CORPUSCULAR VOLUME 96.3 fl (80.0-96.0); MONO # 0.6 K/mm3 (0.0-0.8); NEUTROPHILS # 8.9 K/mm3 (1.8-7.7); NEUTROPHILS % 75.5 % (36.0-66.0); PLATELET COUNT, AUTOMATED 113 k/mm3 (150-450); RED CELL DISTRIBUTION WIDTH 14.2 % (11.5-14.5); WHITE BLOOD COUNT 11.8 K/mm3 (4.0-10.0)
[2016-04-17] MEDS ORDERED: NS 1,000 ML IV SCH ×2 (01:53→07:15)
[2016-04-17] MEDS ORDERED: IPRATROPIUM 0.5MG/ALBUTEROL 2.5MG INH SOL UD 3ML (DUONEB)(J7620) NEB PRN (02:00)
[2016-04-17] MEDS ORDERED: ACETAMINOPHEN TAB 650MG DOSE (2X325MG) PO PRN (02:00)
[2016-04-17] MEDS ORDERED: ONDANSETRON 4MG/2ML VIAL (J2405) IV PRN (02:00)
[2016-04-17 02:22] LABS: ANION GAP 13 MEQ/L (8-16); BLOOD UREA NITROGEN 12 MG/DL (7-18); CALCIUM LEVEL 7.4 MG/DL (8.5-10.1); CARBON DIOXIDE LEVEL 25 MEQ/L (21-32); CHLORIDE LEVEL 107 MEQ/L (98-107); GLOMERULAR FILTRATION RATE > 60.0 (>56); GLUCOSE, FASTING 112 MG/DL (70-105); SODIUM LEVEL 145 MEQ/L (136-145)
[2016-04-17] MEDS ORDERED: SODIUM CHLORIDE 0.9% 1000 ML IV ONE (02:30)
[2016-04-17] MEDS ORDERED: POTASSIUM CHLORIDE 10 MEQ SR TABLET PO SCH (02:50)
[2016-04-17] MEDS ORDERED: LevoFLOXacin(LEVAQUIN)500 MG/100 ML BAG (J1956) As Ordered ONE (03:03)
[2016-04-17] MEDS ORDERED: POTASSIUM CHLORIDE 10 MEQ SR TABLET As Ordered ONE (03:03)
[2016-04-17] MEDS ORDERED: BUSP15TA47 PO (03:04)
[2016-04-17] MEDS ORDERED: IPRASOL4 INH (03:04)
[2016-04-17] MEDS ORDERED: MOME50SP (03:04)
[2016-04-17] MEDS ORDERED: NALT50TA4 PO (03:04)
[2016-04-17] MEDS ORDERED: LEVOTAB10 PO (03:04)
[2016-04-17] MEDS ORDERED: TRIA1CR TOP (03:04)
[2016-04-17] MEDS ORDERED: INCR1INH INH (03:04)
[2016-04-17] MEDS ORDERED: FOLI1TAB2 PO (03:04)
[2016-04-17] MEDS ORDERED: CITA40TA4 PO (03:04)
[2016-04-17] MEDS ORDERED: ALBU17IN INH (03:04)
[2016-04-17] MEDS ORDERED: HYDR25T PO (03:04)
[2016-04-17] MEDS ORDERED: ADV500INH INH (03:04)
[2016-04-17] MEDS ORDERED: PRED20TA PO (03:04)
[2016-04-17] MEDS ORDERED: TRAZ100T4 PO (03:04)
[2016-04-17] MEDS ORDERED: BREO1INH3 INH (03:04)
[2016-04-17] MEDS ORDERED: SING10TA32 PO (03:04)
[2016-04-17] MEDS ORDERED: CYAN25TA PO (03:04)
[2016-04-17] MEDS: LevoFLOXacin IV 500 MG in APPROPRIATE DILUENT 1 EA IV SCH (03:22)
[2016-04-17] MEDS ORDERED: hydrOXYzine 25 MG TAB PO PRN (06:30)
[2016-04-17] MEDS: IPRATROPIUM 0.5MG/ALBUTEROL 2.5MG INH SOL UD 3ML (DUONEB)(J7620) NEB SCH ×3 (07:13→23:30)
[2016-04-17] MEDS ORDERED: MULTIVITAMINS/MINERALS THERAP 1 TAB As Ordered ONE (08:27)
[2016-04-17] MEDS ORDERED: busPIRone 5 MG TAB As Ordered ONE ×3 (08:27→20:23)
[2016-04-17] MEDS ORDERED: ENOXAPARIN 40 MG/0.4 ML SYRINGE (J1650) As Ordered ONE (08:27)
[2016-04-17] MEDS ORDERED: FOLIC ACID 1 MG TAB As Ordered ONE (08:27)
[2016-04-17] MEDS ORDERED: THIAMINE 100 MG TAB As Ordered ONE (08:27)
[2016-04-17] MEDS ORDERED: predniSONE 20 MG TAB As Ordered ONE (08:27)
[2016-04-17] MEDS: FLUTICASONE PROP 0.05% NASAL SPRAY 16 GM (FLONASE) SCH (08:30)
[2016-04-17] MEDS: CitaloPRAM (CeleXA) 20 MG TAB PO SCH (08:31)
[2016-04-17] MEDS: MULTIVITAMINS/MINERALS THERAP 1 TAB PO SCH (08:31)
[2016-04-17] MEDS: NICOTINE 14 MG/24 HR TRANSDERMAL TD SCH (08:31)
[2016-04-17] MEDS: THIAMINE 100 MG TAB PO SCH (08:31)
--- NOTE | 2016-04-17 08:31 | REP ---
Clinical: Cough . Comparison: 04/11/2016 . Findings: The mediastinum and cardiac silhouette are stable and within normal limits for portable technique. The lung garcia are clear without acute consolidation, effusion, or pneumothorax. Skeletal structures are intact. Impression: Normal portable chest x-ray Signed by Flex Forrest MD 04/17/2016 08:23 A
[2016-04-17] MEDS: ENOXAPARIN 40 MG/0.4 ML SYRINGE (J1650) SC SCH (08:32)
[2016-04-17] MEDS: NALTREXONE 50 MG TAB PO SCH (08:32)
[2016-04-17] MEDS: CETIRIZINE (ZyrTEC) 10 MG TAB PO SCH (08:32)
[2016-04-17] MEDS: MONTELUKAST 10 MG TAB PO SCH (08:32)
[2016-04-17] MEDS: FOLIC ACID 1 MG TAB PO SCH (08:32)
[2016-04-17] MEDS: busPIRone 5 MG TAB PO SCH ×2 (08:32→20:24)
[2016-04-17] MEDS: CYANOCOBALAMIN 250 MCG TABLET PO SCH (08:32)
--- NOTE | 2016-04-17 08:33 | ECGEPIP ---
Stationary ECG Study [facility] - ED Test Date: 2016-04-17 Pat Name: GORDON SERNA Department: Room: [place] [address] Gender: M [employer] Floor Walker: LugoB: 1965 Requested By: GAMA Frost Order Number: [id number] Reading MD: Stephan Myers Measurements Intervals [place] Rate: 115 P: 36 OR: 138 QRS: 62 QRSD: 148 T: -33 QT: 374 QTc: 518 Interpretive Statements SINUS TACHYCARDIA LEFT BUNDLE BRANCH BLOCK NEW SINCE 02/09/16 BUT SIMILAR TO 12/17/15 Electronically Signed On 04-17-2016 8:33:51 EST by Stephan Myers
[2016-04-17] MEDS ORDERED: OXAZEPAM 10 MG CAP As Ordered ONE ×2 (08:43→16:40)
[2016-04-17] MEDS: OXAZEPAM 10 MG CAP PO PRN ×2 (08:43→16:41)
--- NOTE | 2016-04-17 08:55 | IPNPDOC ---
Subjective Date Seen The patient was seen on 04/17/16. Subjective Chief Complaint/HPI The patient is a 51-year-old male admitted with a reason for visit of CAP. Events since last encounter Admitted for COPD exacerbation/pneumonia with elevated lactic acid level of 2.3. 1 view CXR negative. 2 view ordered and pending. Hypokalemia on admission received 40 mew x 2. Repeat CMP ordered and pending. Patient states homeless. has left SOs home. has had recent domestic disputes and interactions with police. recently trying to live in car in hospital parking lot. Was at [facility] last night to stay and developed sudden, worsening SOB. Smoking 1ppd. Has hx of ETOH abuse and is drinking bottles of vodka daily. Has been in and out of rehab multiple times over the last 2 years. Constitutional: Denies: Chills, Fever, Night Sweats ENT: Denies: Dysphagia, Ear Pain, Head Aches Pulmonary: Reports: Cough, Dyspnea, Pleuritic Chest Pain Cardiovascular: Denies: Chest Pain, Lt Headedness, Orthopnea, Palpitations, Paroxysmal Noc. Dyspnea Gastrointestinal: Denies: Abdominal Pain, Constipation, Diarrhea, Nausea, Vomiting Genitourinary: Denies: Dysuria, Frequency, Incontinence, Retention Hematologic: Denies: Bleeding Excessively, Bruising Psych: Reports: Other Psych (ETOH abuse, homeless. ), Denies: Anger, Thoughts of Harming Other, Thoughts of Self Harm Objective Physical Examination General Exam: Positive: Alert, Cooperative, No Acute Distress ENT Exam: Positive: Atraumatic, Mucous membr. moist/pink, Pharynx Normal Neck Exam: Positive: Supple, Negative: JVD, thyromegaly Chest Exam: Positive: Diminished Heart Exam: Positive: Normal S1, Normal S2, Tachycardic Telemetry: Positive: No significant arrhythmia, Tachycardia Abdomen Exam: Positive: Normal bowel sounds, Soft, Negative: Hepatospenomegaly, Tenderness Extremity Exam: Positive: Normal pulses, Negative: Clubbing, Cyanosis, Edema Skin Exam: Positive: Nl turgor and temperature, Negative: Breakdown, Rash Neuro Exam: Positive: Cranial Nerves 3-12 NL, Normal Gait, Normal Speech, Reflexes 2+ Psych Exam: Positive: Anxiety, Oriented x 3 Assessment /Plan Problems (1) COPD exacerbation Status: Acute Problem Text: Duonebs q 8 hrs with q2 hrs prn ordered. Solumedrol IV. Oxygen 2LNC. (2) CAP (community acquired pneumonia) Status: Acute Problem Text: Levaquin 500 mg D1. Repeat 2 view of chest today. Elevated lactic acid on admission and WBC of 11.8. Repeat labs pending. (3) Alcohol abuse Status: Chronic Problem Text: Folic Acid, B12 and thiamine on board. CIWA protocol ordered. Serax 15 mg po q 8 hrs. PFS consulted. Patient interested in rehabilitation services. Currently without a stable living situation. (4) Hypertension Status: Chronic Response to Treatment: Stable (5) Depression Status: Chronic (6) Tobacco abuse Status: Chronic Problem Text: Nicotine patch ordered and in place. Plan/VTE VTE Prophylaxis Ordered?: Yes (Lovenox) Plan Diet: Continue Current Activity: Continue Current Anticipated Discharge: Psych, Other Anticipated D/C (rehab) Attending Physician Note: I saw and examined this patient. The case was reviewed with the RPA. VS, I&O, 24H, Fishbone Vital Signs/I&O Vital Signs Date Time Temp Pulse Resp B/P Pulse Ox O2 Delivery O2 Flow Rate FiO2 04/17/16 08:41 99.9 112 22 151/76 91 Nasal Cannula 4.5 I&O- Last 24 Hours up to 6 AM 04/17/16 06:00 Intake Total 1160 ml Output Total 0 ml Balance 1160 ml Laboratory Data 24H LABS Laboratory Tests 2 04/17/16 00:54: White Blood Count 11.8H, Red Blood Count 3.81L, Hemoglobin 12.4L, Hematocrit 36.7L, Mean Corpuscular Volume 96.3H, Mean Corpuscular Hemoglobin 32.6, Mean Corpuscular Hemoglobin Concent 33.9, Red Cell Distribution Width 14.2, Platelet Count 113L, Neutrophils (%) (Auto) 75.5H, Lymphocytes (%) (Auto) 17.5L, Monocytes (%) (Auto) 5.0, Eosinophils (%) (Auto) 0.3, Basophils (%) (Auto) 0.1, Neutrophils # (Auto) 8.9H, Lymphocytes # (Auto) 2.3, Monocytes # (Auto) 0.6, Eosinophils # (Auto) 0.0, Basophils # (Auto) 0.0, Large Unclassified Cells # 0.2 , Large Unclassified Cells % 1.5, Platelet Estimate DECREASED 04/17/16 01:32: Anion Gap 13, Blood Urea Nitrogen 12, Creatinine 0.50L, Sodium Level 145, Potassium Level 3.0L, Chloride Level 107, Carbon Dioxide Level 25, Calcium Level 7.4L, Total Creatine Kinase 68, Creatine Kinase MB 1.0, Creatine Kinase MB Relative Index 1.47, Glomerular Filtration Rate > 60.0, Lactic Acid (Sepsis) 2.1*H, Troponin I < 0.02 04/17/16 05:53: Lactic Acid Level 2.3*H CBC/BMP Laboratory Tests 04/17/16 00:54 Red Blood Count 3.81 L, Mean Corpuscular Volume 96.3 H, Mean Corpuscular Hemoglobin 32.6, Mean Corpuscular Hemoglobin Concent 33.9, Red Cell Distribution Width 14.2, Neutrophils (%) (Auto) 75.5 H, Lymphocytes (%) (Auto) 17.5 L, Monocytes (%) (Auto) 5.0, Eosinophils (%) (Auto) 0.3, Basophils (%) ( Auto) 0.1, Neutrophils # (Auto) 8.9 H, Lymphocytes # (Auto) 2.3, Monocytes # ( Auto) 0.6, Eosinophils # (Auto) 0.0, Basophils # (Auto) 0.0 04/17/16 01:32 Calcium Level 7.4 L, Total Creatine Kinase 68 Microbiology Microbiology 04/17/16 Blood Culture, Received Pending 04/17/16 Blood Culture, Received Pending 04/17/16 Respiratory Virus Panel (PCR) ([facility]) - Final, Complete 04/17/16 Gram Stain, Received Pending 04/17/16 Sputum Culture, Received Pending 04/17/16 Influenza Virus Type A Antigen - Final, Complete 04/17/16 Influenza Virus Type B Antigen - Final, Complete Nano Sanderson [facility] Apr 17, 2016 08:55 Easton Levin M.D. Apr 17, 2016 18:02
[2016-04-17] MEDS ORDERED: predniSONE 20 MG TAB PO SCH (09:00)
--- NOTE | 2016-04-17 09:31 | REP ---
Clinical: Hypoxia and shortness of breath. Comparison: 04/17/2016 at 12:36 a.m. Findings: Mediastinum and cardiac silhouette are within normal limits and stable. Lung garcia demonstrate chronic interstitial changes with coarsened interstitial markings and subtle lower lobe opacities suggested. No effusion. No pneumothorax. Skeletal structures intact. Impression: Coarsened markings and subtle lower lobe opacities suggest bronchitis and possible basilar atelectasis/early infiltrate. Signed by Flex Forrest MD 04/17/2016 09:23 A
[2016-04-17 09:40] LABS: MEAN CORPUSCULAR HEMOGLOBIN 31.3 pg (27.0-33.0); MEAN CORPUSCULAR HGB CONC 32.6 g/dl (32.0-36.5); MEAN CORPUSCULAR VOLUME 96.2 fl (80.0-96.0); RED CELL DISTRIBUTION WIDTH 14.4 % (11.5-14.5); WHITE BLOOD COUNT 10.5 K/mm3 (4.0-10.0)
[2016-04-17 09:54] LABS: ALBUMIN 3.1 GM/DL (3.2-5.2); ALBUMIN/GLOBULIN RATIO 1.24 (1.00-1.93); ALKALINE PHOSPHATASE 57 U/L (45-117); ALT/SGPT 66 U/L (12-78); ANION GAP 11 MEQ/L (8-16); AST/SGOT 43 U/L (15-37); BILIRUBIN,TOTAL 0.8 MG/DL (0.2-1.0); BLOOD UREA NITROGEN 7 MG/DL (7-18); CALCIUM LEVEL 7.6 MG/DL (8.5-10.1); CARBON DIOXIDE LEVEL 25 MEQ/L (21-32); CHLORIDE LEVEL 105 MEQ/L (98-107); CREATININE FOR GFR 0.41 MG/DL (0.70-1.30); GLOMERULAR FILTRATION RATE > 60.0 (>56); GLUCOSE, FASTING 118 MG/DL (70-105); POTASSIUM SERUM 3.3 MEQ/L (3.5-5.1); SODIUM LEVEL 141 MEQ/L (136-145); TOTAL PROTEIN 5.6 GM/DL (6.4-8.2)
[2016-04-17 09:55] LABS: BASOPHILS 1 % (0-4)
[2016-04-17] MEDS: ADVAIR DISKUS 500/50 INH PWD INH SCH ×2 (10:05→19:42)
[2016-04-17] MEDS ORDERED: methylPREDNISolone INJ 125 MG/2 ML VIAL (J2930) As Ordered ONE ×2 (12:29→20:12)
[2016-04-17] MEDS: methylPREDNISolone INJ 125 MG/2 ML VIAL (J2930) IV SCH ×2 (12:32→20:21)
[2016-04-17] MEDS ORDERED: methylPREDNISolone INJ 125 MG/2 ML VIAL (J2930) IV SCH (17:00)
[2016-04-18] VITALS (12 sets, daily range): BP systolic 103–174; BP diastolic 62–98
[2016-04-18] MEDS ORDERED: OXAZEPAM 10 MG CAP As Ordered ONE ×2 (00:02→08:53)
[2016-04-18] MEDS: OXAZEPAM 10 MG CAP PO PRN ×3 (00:06→14:47)
--- NOTE | 2016-04-18 03:06 | HPE ---
DATE OF ADMISSION: 04/17/2016 PRIMARY CARE PROVIDER: JOSELITO Marks TYPESETTING MACHINE TENDER: Dr. Dean Pineda CHIEF COMPLAINT: Febrile illness. HISTORY OF PRESENT ILLNESS: 51-year-old gentleman who is homeless stays in a warehouse informed me that he has been feeling ill for the last week or so with fevers, chills, myalgias, intermittent productive cough, had been seen by his primary care provider close to a week ago, and is just about finished with the steroids that he was given for chronic obstructive pulmonary disease (COPD) exacerbation. He is not currently on any antibiotics. He stated that he normally uses 2-3 liters of oxygen for his chronic COPD with chronic hypoxia and this evening he had noticed that he had become more short of breath with chills, nausea, no vomiting and chest congestion. He denies any substernal chest pain. PAST MEDICAL HISTORY: COPD, alcohol abuse, hypertension, seasonal allergies, depression, folate deficiency. PAST SURGICAL HISTORY: Variceal ligation, left ear surgery. SOCIAL HISTORY: The patient is a chronic tobacco user, and he is down to less than a pack a day. He states he does drink alcohol but is unable to quantify for me, but he states that he normally does need to take something when he is admitted and to watch for withdrawal. FAMILY HISTORY: Noncontributory. ALLERGIES: LASIX. HOME MEDICATIONS: - prednisone 20 mg daily for two more days - Advair Diskus 500/50 mcg inhaler twice a day - Breo Ellipta daily - citalopram 40 mg daily - DuoNebs as directed four times daily - Flonase nasal spray one spray per nostril twice a day - folic acid 1 mg daily - hydroxyzine 25 mg three times a day as needed - Incruse Ellipta 62.5 mg daily - levocetirizine 5 mg daily - montelukast 10 mg daily - naltrexone 50 mg daily, which he states he has not been taking - Nasonex two sprays daily - Nicoderm CQ 14 mg tablet daily - Patanol ophthalmic drops as needed - ProAir HFA as needed - trazodone 50 mg nightly as needed - triamcinolone cream applied daily as needed - Ventolin inhaler as needed - vitamin B12, 150 mg daily Please note that his home medication list is currently being reconciled by pharmacy since there are some duplications on this list. REVIEW OF SYSTEMS: CONSTITUTIONAL: He has had some fevers, chills and rigors, myalgia, and has had decreased appetite. HEENT: No headache, lightheadedness, dizziness, blurry vision, double vision, or tinnitus. No difficulty with speech or swallow. PULMONARY: Intermittent productive sputum with yellow-green sputum. He has had increased shortness of breath with some dyspnea and wheeze. He denies any hemoptysis. CARDIOVASCULAR: No substernal chest pain. No paroxysmal nocturnal dyspnea (PND). No orthopnea. No lower extremity edema. GASTROINTESTINAL (GI): No nausea, vomiting, diarrhea. Bowel movements are regular. He denies any hematochezia or melena. GENITOURINARY (): No dysuria, frequency, hematuria. MUSCULOSKELETAL: No bone, muscle, or joint pain or swelling. However, he does describe some vague myalgias. NEUROLOGIC: No paresthesias or paralysis. No loss of consciousness. ENDOCRINE: Negative for diabetes. Negative for thyroid disorder. LYMPHATICS: No lumps, bumps, swelling in the neck, axillae, or groin. No night sweats. No weight loss. HEMATOLOGY: Negative for bleeding or bruising disorder. No prior history of venous thromboembolism. ONCOLOGY: No history of cancer. PSYCHIATRIC: Positive for depression. Positive alcohol abuse. 10-point review of systems complete; pertinent positives are listed. PHYSICAL EXAMINATION: VITAL SIGNS: Temperature is 101.4, respiratory rate is 22, pulse 96 and regular, blood pressure 138/73, SpO2 is 93% on room air. GENERAL: The patient appears to be in no acute distress. He is pleasant to talk to. HEENT: Head is atraumatic, normocephalic. Eyes: Pupils equal, round, reactive to light and accommodation (PERRLA). Throat clear. Mucous membranes moist. NECK: Is supple. LUNGS: Intermittent end expiratory wheeze throughout all lung garcia. No rhonchi. HEART: Regular rate and rhythm. ABDOMEN: Soft. EXTREMITIES: No edema or calf tenderness. NEUROLOGIC: Assistant Account Manager strength equal bilaterally. No asterixis is noted, and cranial nerves II-XII are grossly intact. LABORATORY DATA: White count 11.8, hemoglobin 12.4, platelets are 113,000. Influenza A and B are negative. However, respiratory panel is pending at this time. Blood cultures are pending. 12-lead EKG: Sinus tachycardia, interventricular conduction delay. Telemetry: His pulse rate is 88 with sinus rhythm. SpO2 is 97% currently. IMPRESSION: Mr. Castillo is a 51-year-old gentleman who follows with [facility], has been treated recently for COPD exacerbation, suddenly got worse with his increasing dyspnea and shortness of breath with wheeze this evening, and appears to have symptoms of underlying respiratory illness. PROBLEM LIST: 1. COPD exacerbation with possible community-acquired pneumonia. 2. Chronic hypoxic respiratory failure with home oxygen supplementation. 3. History of COPD. 4. Alcohol abuse. Will need to monitor for withdrawal. 5. Hypertension. 6. Seasonal allergies. 7. Folate deficiency, likely secondary to poor nutrition. PLAN: The patient will be admitted to medical-surgical per [facility]. Will continue with some gentle intravenous (IV) fluids, start on Levaquin IV. Will reconcile his home medications to continue. Continue with Acapella, sputum culture, DuoNebs, and check a respiratory panel and deep venous thrombosis (DVT) prophylaxis. The patient will be admitted to observation and will sign out to [facility] in the morning for further disposition at that time. Lactic acid is 2.1 in the emergency department. We will go and give him a liter bolus of normal saline, then return the flow rate to 80 mL within the next 8 hours for followup with sepsis protocol. Edited: león 04/18/2016 [id number]
[2016-04-18] MEDS ORDERED: LevoFLOXacin(LEVAQUIN)500 MG/100 ML BAG (J1956) As Ordered ONE (03:13)
[2016-04-18] MEDS ORDERED: methylPREDNISolone INJ 125 MG/2 ML VIAL (J2930) As Ordered ONE ×2 (03:25→12:22)
[2016-04-18] MEDS: methylPREDNISolone INJ 125 MG/2 ML VIAL (J2930) IV SCH ×3 (03:29→20:48)
[2016-04-18] MEDS: LevoFLOXacin IV 500 MG in APPROPRIATE DILUENT 1 EA IV SCH (03:30)
[2016-04-18] MEDS ORDERED: IPRATROPIUM 0.5MG/ALBUTEROL 2.5MG INH SOL UD 3ML (DUONEB)(J7620) As Ordered ONE (07:36)
[2016-04-18] MEDS: IPRATROPIUM 0.5MG/ALBUTEROL 2.5MG INH SOL UD 3ML (DUONEB)(J7620) NEB SCH ×3 (07:38→22:33)
[2016-04-18] MEDS: ADVAIR DISKUS 500/50 INH PWD INH SCH ×2 (07:38→21:00)
[2016-04-18] MEDS: FOLIC ACID 1 MG TAB PO SCH (08:50)
[2016-04-18] MEDS: CETIRIZINE (ZyrTEC) 10 MG TAB PO SCH (08:50)
[2016-04-18] MEDS: MULTIVITAMINS/MINERALS THERAP 1 TAB PO SCH (08:50)
[2016-04-18] MEDS: NICOTINE 14 MG/24 HR TRANSDERMAL TD SCH (08:50)
[2016-04-18] MEDS: CitaloPRAM (CeleXA) 20 MG TAB PO SCH (08:51)
[2016-04-18] MEDS: busPIRone 5 MG TAB PO SCH ×2 (08:51→20:47)
[2016-04-18] MEDS: MONTELUKAST 10 MG TAB PO SCH (08:51)
[2016-04-18] MEDS: CYANOCOBALAMIN 250 MCG TABLET PO SCH (08:51)
[2016-04-18] MEDS: NALTREXONE 50 MG TAB PO SCH (08:51)
[2016-04-18] MEDS: THIAMINE 100 MG TAB PO SCH (08:51)
[2016-04-18] MEDS: ENOXAPARIN 40 MG/0.4 ML SYRINGE (J1650) SC SCH (08:51)
[2016-04-18] MEDS: FLUTICASONE PROP 0.05% NASAL SPRAY 16 GM (FLONASE) SCH (08:52)
[2016-04-18] MEDS ORDERED: hydrOXYzine 25 MG TAB As Ordered ONE (12:33)
--- NOTE | 2016-04-18 13:29 | EDDOCDS ---
Nurse's Notes [facility] Name: Dontae Serna Age: 51 yrs Sex: Male : 1965 Arrival Date: 04/17/2016 Time: 00:06 Bed Admit Hold Private MD: Diagnosis: Influenza due to unidentified influenza virus Presentation: 04/17 00:14 Presenting complaint: EMS states: pt c/o SOB, SPO2 90% on 2L NC upon EMS arrival. pt mlc states that he is living in a [place] that has black mold on the ceiling. Adult Sepsis Screening: The patient does not have new or worsening altered mentation. Patient has a respiratory rate of greater than or equal to 22 (1 point). Systolic blood pressure is less than or equal to 100 (1 point). Patient has a qSOFA score of 1- Negative Sepsis Screen. Suicide/Homicide risk assessment- the patient denies having any suicidal and/or homicidal ideations and does not present with any other emotional, behavioral or mental health complaints. Status: Patient is not a patient services specialist or dependent. Transition of care: patient was not received from another setting of care. Care prior to arrival: IV initiated. Med neb given. 00:14 Acuity: LAVERNE Level 2 mlc 00:14 Method Of Arrival: Ambulance mlc Triage Assessment: 00:22 General: Appears in no apparent distress, comfortable, Behavior is appropriate for age, mlc cooperative. HIV screening NA for this visit Offered previously. The patient is triaged at the bedside. See Assessment in Nurses Notes section of ED record. Neurological: Level of Consciousness is awake, alert, obeys commands, Oriented to person, place, time. Cardiovascular: Rhythm is sinus tachycardia. Respiratory: Onset: The symptoms/episode began/occurred gradually, Airway is patent Respiratory effort is even, unlabored, Respiratory pattern is regular. Derm: Skin is normal. Historical: - Allergies: Latex (Rash); - Home Meds: 1. prednisone 20 mg Oral tab 2 tabs once daily 2. Advair Diskus 500-50 mcg/dose Inhl dsdv 1 puff 2 times per day 3. breo eliptical daily 200-25mcg daily 4. citalopram 40 mg Oral tab 1 tab once daily 5. DuoNeb 0.5 mg-3 mg(2.5 mg base)/3 mL Inhl nebu 3 mL 4 times per day 6. Flonase 50 mcg/actuation Nasal spsn 1 spray 2 times per day 7. folic acid 1 mg Oral tab 1 tab once daily 8. hydroxyzine HCl 25 mg Oral tab 1 tab as needed 9. incruse elipta 62.5mg daily daily 10. levocetirizine 5 mg oral tab 1 tab once daily 11. montelukast 10 mg oral tab 1 tab once daily 12. naltrexone 50 mg oral tab 1 tab once daily has not been taking 13. Nasonex 50 mcg/actuation Nasal spry 2 sprays once daily 14. nicotine 14 mg/24 hr TD pt24 1 patch once daily 15. Patanol 0.1 % Opht drop 1 drop as needed 16. ProAir HFA 90 mcg/actuation inhalation HFAA prn 17. trazodone 50 mg Oral tab as needed 18. triamcinolone acetonide 0.1 % Topical crea as needed as needed 19. Ventolin Rotahaler/Rotacaps Inhl as needed 20. Vitamin B-12 150 mg Oral daily - PMHx: COPD; ETOH abuse; Hypertension; Seasonal Allergies; - PSHx: varicocele ligation; left ear; - Social history: Smoking status: Patient uses tobacco products, heavy tobacco smoker. Patient uses alcohol on a daily basis. No barriers to communication noted, The patient speaks fluent Icelandic. - Family history: Not pertinent, No immediate family members are acutely ill. - : The pt / caregiver states he / she is not on anticoagulants. Home medication list is obtained from the patient, [employer] import data. - Exposure Risk Screening:: None identified. Screenin:06 Infection Control. ml3 00:30 Screening information is obtained from the patient. Fall risk: No risks identified. mlc Assistance ADL's: requires no assistance with activities of daily living. Abuse/DV Screen: The patient / caregiver reports he/she is: not in a situation that causes fear, pain or injury. Nutritional screening: No deficits noted. Advance Directives: Currently, there is a health care proxy, hermann Turnerer. There is an active DNR order but there is no copy available at this time. There is a living will, but a copy is not available at this time. There is an active Power of Account Classification Clerk, hermann Turnerer. home support is adequate. Assessment: 00:30 General: Appears in no apparent distress, comfortable, Behavior is cooperative. Pain: mlc Denies pain. Neurological: Level of Consciousness is awake, alert, obeys commands, Oriented to person, place, time. Cardiovascular: Capillary refill < 3 seconds Heart tones S1 S2 present Rhythm is sinus tachycardia Chest pain is denied. Respiratory: Airway is patent Respiratory effort is even, Respiratory pattern is regular, Breath sounds are coarse in left posterior lower lobe, right posterior middle lobe and right posterior lower lobe. Derm: Skin is normal. 01:16 Reassessment: Patient appears in no apparent distress at this time. IV fluids infusing mlc per order. pt coughing, non-productive. . 02:34 General: Appears in no apparent distress, comfortable, Behavior is cooperative. mlc General: Appears. Pain: Denies pain. Neurological: Level of Consciousness is awake, alert, Oriented to person, place, time. Cardiovascular: Rhythm is sinus rhythm. Respiratory: Airway is patent Respiratory effort is even, unlabored, Respiratory pattern is regular. 02:34 General: report given to Óscar Bear RN Admission Jones nurse, for further documentation ashanti see [facility].. Vital Signs: 00:15 BP 127 / 76; Pulse 134; Resp 22; Temp 101.4(TE); Pulse Ox 92% on 3 lpm NC; Weight 68.04 erica kg (R); Height 5 ft. 11 in. (180.34 cm) (R); Pain 0/10; 00:30 Pulse 118 MON; Pulse Ox 91% ; mlc 00:30 BP 122 / 75 (auto/); mlc 00:45 Pulse 98 MON; Pulse Ox 96% ; mlc 00:45 BP 128 / 58 (auto/); mlc 01:00 Pulse 103 MON; Pulse Ox 93% ; mlc 01:00 BP 126 / 68 (auto/); mlc 01:15 BP 138 / 73 (auto/); mlc 01:15 Pulse 96 MON; Pulse Ox 93% ; mlc 01:29 Pulse 94 MON; Pulse Ox 92% ; mlc 01:30 BP 131 / 74 (auto/); mlc 01:45 BP 102 / 57 (auto/); mlc 01:45 Pulse 92 MON; Pulse Ox 91% ; mlc 02:00 BP 105 / 57 (auto/); mlc 02:14 Pulse 110 MON; Pulse Ox 97% ; mlc 02:15 BP 121 / 64 (auto/); mlc 02:16 Temp 99.2(O); erica 00:15 Body Mass Index 20.92 (68.04 kg, 180.34 cm) erica Vitals: 00:22 Log In Time N/A - ambulance arrival. [facility] [place] [place] ED Course: 00:06 Patient visited by Bre Love, Personal Carer. ml3 00:06 Patient moved to Waiting ml3 00:07 Sherron Jane RN is Primary Nurse. ml3 00:07 Patient moved to 3 ml3 00:15 Pt greeted and oriented to ED. Patient advised of names of staff involved in care, erica location of call la, wait times and NPO status. Patient has correct armband on for positive identification. Placed in gown. Bed in low position. Call light in reach. Side rails up X2. air sampling and monitoring on. Pulse ox on. NIBP on. 00:18 Triage Initiated mlc 00:20 EKG done. (by ED staff). Reviewed by Gama Lorenzo DO. erica 00:21 Gama Lorenzo DO is Attending Physician. mm11 00:21 Patient visited by Gama Lorenzo DO. mm11 00:24 Patient visited by Sherron Jane RN. mlc 00:28 Patient visited by Gama Lorenzo DO. mm11 00:30 The patient / caregiver is instructed regarding the plan of care and ED course. mlc 00:30 Maintain field IV. Dressing intact. Good blood return noted. Site clean & dry. Gauge & mlc site: 18g left hand. 01:00 -Influenza A&B Rapid Antigen - Nose Sent. mlc 01:00 Lactic Acid (Anderson tube on ice) Sent. mlc 01:00 -Blood Culture Sent. mlc 01:00 Basic Metabolic Profile Sent. mlc 01:00 CBC with Diff Sent. mlc 01:00 Cardiac Injury Profile Sent. mlc 01:00 Troponin Sent. mlc 01:14 BLOOD CULTURES Sent. mlc 01:18 Patient visited by Sherron Jane RN. mlc 02:05 Patient visited by Gina Streeter PCA. erica 02:05 Hernando Mcgill DO is Hospitalizing Provider. mm11 02:06 Patient moved to Admit Hold ml3 02:17 Patient visited by Gina Streeter PCA. erica 02:17 No procedures done that require assistance. feb 02:18 Notified attending ED physician of Critical lab value. lactic acid of 2.[address] Lorenzo. 02:35 Patient visited by Sherron Jane RN. mlc 02:36 RESPIRATORY PANEL Sent. mlc 02:38 Patient moved to 20 feb 02:42 [facility] Payment Agreement was scanned into [employer] and attached to record. pm4 02:45 Patient moved to Admit Hold ml3 08:17 Primary Nurse role handed off by Sherron Jane RN ar3 08:38 EKG-ADULT Returned. EDMS 08:39 Chest, 1 View Returned. EDMS 09:47 Chest, 2 view PA, Lat Returned. EDMS 15:03 Admission Orders was scanned into [employer] and attached to record. ar3 19:32 T-Sheet-- Draft Copy was scanned into [employer] and attached to record. klr Administered Medications: 00:39 Drug: Albuterol-Ipratropium 3 ml [ipratropium-albuterol 0.5 mg-3 mg(2.5 mg base)/3 mL [facility] nebulization soln (3 mL)] Route: Inhalation; 01:00 Drug: NS 0.9% 1000 ml [sodium chloride 0.9 % intravenous solution] Route: IV; Rate: mlc bolus; Site: left hand; 01:00 Drug: Acetaminophen 650 mg [acetaminophen 325 mg tablet (2 tabs)] Route: PO; mlc 02:06 Drug: Albuterol-Ipratropium 3 ml [ipratropium-albuterol 0.5 mg-3 mg(2.5 mg base)/3 mL [facility] nebulization soln (3 mL)] Route: Inhalation; RT: 00:39 Initial Med Neb Given as ordered Patient was instructed and evaluated on procedure jh6 Patient tolerated procedure well without adverse effect. Respiratory: Airway is patent Respiratory effort is even, unlabored, Respiratory pattern is regular symmetrical, Breath sounds are coarse in right upper lobe, right middle lobe and right lower lobe Breath sounds are diminished in left upper lobe and left lower lobe. 02:06 Subsequent Med Neb Given as ordered Patient was reinforced on procedure Patient jh6 tolerated procedure well without adverse effect. Respiratory: Airway is patent Respiratory effort is even, unlabored, Respiratory pattern is regular symmetrical, Breath sounds are coarse in right upper lobe, left upper lobe, right middle lobe, left lower lobe and right lower lobe Breath sounds with rhonchi in right upper lobe, left upper lobe, right middle lobe, left lower lobe and right lower lobe. 02:13 Respiratory: Airway is patent Respiratory effort is even, unlabored, Respiratory jh6 pattern is regular symmetrical, Breath sounds with rhonchi in left posterior upper lobe, right posterior upper lobe, left posterior lower lobe, right posterior middle lobe and right posterior lower lobe. Order Results: Lab Order: -Blood Culture; SPEC'M 04/17/16 00:54 Test: BLOOD CULTURE; Value: No growth after 24 hours . All specimens observed; Status: F Test: BLOOD CULTURE; Value: for 7 days. Results final at that time.; Status: F Lab Order: Basic Metabolic Profile; SPEC'M 04/17/16 01:32 Test: GLUCOSE, FASTING; Value: 112; Range: 70-105; Abnormal: Above high normal; Units: MG/DL; Status: F Test: BLOOD UREA NITROGEN; Value: 12; Range: 7-18; Units: MG/DL; Status: F Test: CREATININE FOR GFR; Value: 0.50; Range: 0.70-1.30; Abnormal: Below low normal; Units: MG/DL; Status: F Test: GLOMERULAR FILTRATION RATE; Value: > 60.0; Range: >56; Status: F Test: SODIUM LEVEL; Value: 145; Range: 136-145; Units: MEQ/L; Status: F Test: POTASSIUM SERUM; Value: 3.0; Range: 3.5-5.1; Abnormal: Below low normal; Units: MEQ/L; Status: F Test: CHLORIDE LEVEL; Value: 107; Range: 98-107; Units: MEQ/L; Status: F Test: CARBON DIOXIDE LEVEL; Value: 25; Range: 21-32; Units: MEQ/L; Status: F Test: ANION GAP; Value: 13; Range: 8-16; Units: MEQ/L; Status: F Test: CALCIUM LEVEL; Value: 7.4; Range: 8.5-10.1; Abnormal: Below low normal; Units: MG/DL; Status: F Test Note: ; Units are mL/min/1.73 m2 Chronic Kidney Disease Staging per NKF: Stage I & II GFR >=60 Normal to Mildly Decreased Stage III GFR 30-59 Moderately Decreased Stage IV GFR 15-29 Severely Decreased Stage V GFR <15 Very Little GFR Left ESRD GFR <15 on LAPPING MACHINE SET UP OPERATOR Lab Order: CBC with Diff; SPEC'M 04/17/16 00:54 Test: WHITE BLOOD COUNT; Value: 11.8; Range: 4.0-10.0; Abnormal: Above high normal; Units: K/mm3; Status: F Test: RED BLOOD COUNT; Value: 3.81; Range: 4.30-6.10; Abnormal: Below low normal; Units: M/mm3; Status: F Test: HEMOGLOBIN; Value: 12.4; Range: 14.0-18.0; Abnormal: Below low normal; Units: g/dl; Status: F Test: HEMATOCRIT; Value: 36.7; Range: 42.0-52.0; Abnormal: Below low normal; Units: %; Status: F Test: MEAN CORPUSCULAR VOLUME; Value: 96.3; Range: 80.0-96.0; Abnormal: Above high normal; Units: fl; Status: F Test: MEAN CORPUSCULAR HEMOGLOBIN; Value: 32.6; Range: 27.0-33.0; Units: pg; Status: F Test: MEAN CORPUSCULAR HGB CONC; Value: 33.9; Range: 32.0-36.5; Units: g/dl; Status: F Test: RED CELL DISTRIBUTION WIDTH; Value: 14.2; Range: 11.5-14.5; Units: %; Status: F Test: PLATELET COUNT, AUTOMATED; Value: 113; Range: 150-450; Abnormal: Below low normal; Units: k/mm3; Status: F Test: NEUTROPHILS %; Value: 75.5; Range: 36.0-66.0; Abnormal: Above high normal; Units: %; Status: F Test: LYMPH %; Value: 17.5; Range: 24.0-44.0; Abnormal: Below low normal; Units: %; Status: F Test: MONO %; Value: 5.0; Range: 0.0-5.0; Units: %; Status: F Test: EOS %; Value: 0.3; Range: 0.0-3.0; Units: %; Status: F Test: BASO %; Value: 0.1; Range: 0.0-1.0; Units: %; Status: F Test: LARGE UNSTAINED CELL %; Value: 1.5; Range: 0.0-4.0; Units: %; Status: F Test: NEUTROPHILS #; Value: 8.9; Range: 1.8-7.7; Abnormal: Above high normal; Units: K/mm3; Status: F Test: LYMPH #; Value: 2.3; Range: 1.5-4.5; Units: K/mm3; Status: F Test: MONO #; Value: 0.6; Range: 0.0-0.8; Units: K/mm3; Status: F Test: EOS #; Value: 0.0; Range: 0.0-0.50; Units: K/mm3; Status: F Test: BASO #; Value: 0.0; Range: 0.0-0.2; Units: K/mm3; Status: F Test: LARGE UNSTAINED CELL #; Value: 0.2; Range: 0.0-0.4; Units: K/mm3; Status: F Lab Order: Cardiac Injury Profile; [facility]' 04/17/16 01:32 Test: CPK CREATINE PHOSPHOKINASE; Value: 68; Range: 39-308; Units: U/L; Status: F Test: CK-MB VALUE MASS; Value: 1.0; Range: 0.0-3.6; Units: NG/ML; Status: F Test: MB/CK RELATIVE INDEX; Value: 1.47; Range: < OR =4; Status: F Test Note: ; DIAGNOSIS CRITERIA MMB ng/ml Relative Index (RI) NON-AMI < or = 5 N/A ANDERSON ZONE > 5 < or = 4 AMI > 5 > 4 Lab Order: Troponin; SPEC' 04/17/16 01:32 Test: TROPONIN I; Value: < 0.02; Range: < 0.10; Units: NG/ML; Status: F Test Note: ; Troponin I Reference Interval for [employer] LOCI: 99th Percentile= 0.00-0.045 ng/ml Risk Stratification: <= 0.10 ng/ml Decreased Risk for Adverse Clinical Events. 0.10-1.50 ng/ml Increased Risk for Adverse Clinical Events. Evaluation of additional criterion and/or repeat testing in 2-6 hours is suggested to rule out myocardial damage. >= 1.50 ng/ml Indicative of Myocardial Injury. Lab Order: Lactic Acid (Anderson tube on ice); SPEC'M 04/17/16 01:32 Test: LACTIC ACID SEPSIS PROTOCOL; Value: 2.1; Range: 0.4-2.0; Abnormal: Above upper panic limits; Units: MMOL/L; Status: F Lab Order: -Influenza A&B Rapid Antigen - Nose; SPEC'M 04/17/16 00:54 Test: INFLUENZA A RAPID SCR by ICA; Value: INFLUENZA A RESULTS NEGATIVE; Status: F Test: INFLUENZA A RAPID SCR by ICA; Value: Comments:; Status: F Test: INFLUENZA B RAPID SCR by ICA; Value: INFLUENZA B RESULTS NEGATIVE; Status: F Test Note: ; The Influenza test is a direct rapid immunoassay for the qualitative detection of Influenza viral antigen. Cell culture (Viral Culture) testing should be considered to confirm NEGATIVE results and to assist in detecting other viruses that can provide similar clinical symptoms. Please contact the lab within 24 hours ([phone]) if confirmatory testing is desired. Lab Order: BLOOD CULTURES; SPEC'M 04/17/16 01:11 Test: BLOOD CULTURE; Value: No growth after 24 hours . All specimens observed; Status: F Test: BLOOD CULTURE; Value: for 7 days. Results final at that time.; Status: F Lab Order: RBC MORPH PROF NO CHARGE; SPEC'M 04/17/16 00:54 Test: PLATELET ESTIMATE; Value: DECREASED; Range: NORMAL; Status: F Lab Order: RESPIRATORY PANEL; SPEC'M 04/17/16 03:30 Test: RESPIRATORY PANEL; Value: RP PANEL RESULT NEGATIVE by PCR; Status: F Test: RESPIRATORY PANEL; Value: Comments:; Status: F Test Note: ; This respiratory PCR panel detects Influenza A H1, H3 and 2009 H1 viruses, Influenza B virus, Respiratory syncytial virus, Human metapneumovirus, Parainfluenza virus 1, 2, 3 and 4, Adenovirus, Rhinovirus/Enterovirus, Coronavirus HKU1, NL63, OC43 and 229E, Bordetella pertussis, Mycoplasma pneumoniae and Chlamydia pneumoniae. Lab Order: LACTIC ACID LEVEL, LACTATE; SPEC'M 04/17/16 09:08 Test: LACTIC ACID SEPSIS PROTOCOL; Value: 1.7; Range: 0.4-2.0; Units: MMOL/L; Status: F Lab Order: CBC WITH MANUAL DIFFERENTAL; SPEC'M 04/17/16 09:08 Test: WHITE BLOOD COUNT; Value: 10.5; Range: 4.0-10.0; Abnormal: Above high normal; Units: K/mm3; Status: F Test: RED BLOOD COUNT; Value: 3.67; Range: 4.30-6.10; Abnormal: Below low normal; Units: M/mm3; Status: F Test: HEMOGLOBIN; Value: 11.5; Range: 14.0-18.0; Abnormal: Below low normal; Units: g/dl; Status: F Test: HEMATOCRIT; Value: 35.3; Range: 42.0-52.0; Abnormal: Below low normal; Units: %; Status: F Test: MEAN CORPUSCULAR VOLUME; Value: 96.2; Range: 80.0-96.0; Abnormal: Above high normal; Units: fl; Status: F Test: MEAN CORPUSCULAR HEMOGLOBIN; Value: 31.3; Range: 27.0-33.0; Units: pg; Status: F Test: MEAN CORPUSCULAR HGB CONC; Value: 32.6; Range: 32.0-36.5; Units: g/dl; Status: F Test: RED CELL DISTRIBUTION WIDTH; Value: 14.4; Range: 11.5-14.5; Units: %; Status: F Test: PLATELET COUNT, AUTOMATED MD; Value: 78; Range: 150-450; Abnormal: Below low normal; Units: K/mm3; Status: F Test: NEUTROPHILS; Value: 89; Range: 35-75; Abnormal: Above high normal; Units: %; Status: F Test: LYMPHOCYTES; Value: 6; Range: 16-52; Abnormal: Below low normal; Units: %; Status: F Test: MONOCYTES; Value: 2; Range: 0-8; Units: %; Status: F Test: BASOPHILS; Value: 1; Range: 0-4; Units: %; Status: F Test: ATYPICAL LYMPH; Value: 2; Range: 0-5; Units: %; Status: F Test: RBC MORPHOLOGY; Value: NORMAL; Status: F Test: PLATELET ESTIMATE; Value: DECREASED; Range: NORMAL; Status: F Test Note: ; NO PLAT CLUMPING NOTED ON SLIDE. Lab Order: COMPLETE COMPHRENSIVE METABOLI; SPEC'M 04/17/16 09:08 Test: GLUCOSE, FASTING; Value: 118; Range: 70-105; Abnormal: Above high normal; Units: MG/DL; Status: F Test: BLOOD UREA NITROGEN; Value: 7; Range: 7-18; Units: MG/DL; Status: F Test: CREATININE FOR GFR; Value: 0.41; Range: 0.70-1.30; Abnormal: Below low normal; Units: MG/DL; Status: F Test: GLOMERULAR FILTRATION RATE; Value: > 60.0; Range: >56; Status: F Test: SODIUM LEVEL; Value: 141; Range: 136-145; Units: MEQ/L; Status: F Test: POTASSIUM SERUM; Value: 3.3; Range: 3.5-5.1; Abnormal: Below low normal; Units: MEQ/L; Status: F Test: CHLORIDE LEVEL; Value: 105; Range: 98-107; Units: MEQ/L; Status: F Test: CARBON DIOXIDE LEVEL; Value: 25; Range: 21-32; Units: MEQ/L; Status: F Test: ANION GAP; Value: 11; Range: 8-16; Units: MEQ/L; Status: F Test: CALCIUM LEVEL; Value: 7.6; Range: 8.5-10.1; Abnormal: Below low normal; Units: MG/DL; Status: F Test: AST/SGOT; Value: 43; Range: 15-37; Abnormal: Above high normal; Units: U/L; Status: F Test: ALT/SGPT; Value: 66; Range: 12-78; Units: U/L; Status: F Test: ALKALINE PHOSPHATASE; Value: 57; Range: 45-117; Units: U/L; Status: F Test: BILIRUBIN,TOTAL; Value: 0.8; Range: 0.2-1.0; Units: MG/DL; Status: F Test: TOTAL PROTEIN; Value: 5.6; Range: 6.4-8.2; Abnormal: Below low normal; Units: GM/DL; Status: F Test: ALBUMIN; Value: 3.1; Range: 3.2-5.2; Abnormal: Below low normal; Units: GM/DL; Status: F Test: ALBUMIN/GLOBULIN RATIO; Value: 1.24; Range: 1.00-1.93; Status: F Test Note: ; Units are mL/min/1.73 m2 Chronic Kidney Disease Staging per NKF: Stage I & II GFR >=60 Normal to Mildly Decreased Stage III GFR 30-59 Moderately Decreased Stage IV GFR 15-29 Severely Decreased Stage V GFR <15 Very Little GFR Left ESRD GFR <15 on LAPPING MACHINE SET UP OPERATOR Radiology Order: EKG-ADULT Test: EKG-ADULT REASON FOR EXAMINATION: Shortness of Breath; Stationary ECG Study; [facility] - ED; ; Test Date: 2016-04-17; Pat Name: DONTAE SERNA Department:; Room: [place] [address]; Gender: M 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; : 1965 Requested By: GAMA Frost; Order Number: [id number] Reading MD: Stephan Myers; Measurements; Intervals [place]; Rate: 115 P: 36; DC: 138 QRS: 62; QRSD: 148 T: -33; QT: 374; QTc: 518; Interpretive Statements; SINUS TACHYCARDIA; LEFT BUNDLE BRANCH BLOCK; NEW SINCE 02/09/16 BUT SIMILAR TO 12/17/15; Electronically Signed On 04-17-2016 8:33:51 EST by Stephan Myers; Radiology Order: Chest, 1 View Test: Chest, 1 View REASON FOR EXAMINATION: Cough; Clinical: Cough .; ; Comparison: 04/11/2016 .; ; Findings:; The mediastinum and cardiac silhouette are stable and within normal limits for; portable technique. The lung garcia are clear without acute consolidation,; effusion, or pneumothorax. Skeletal structures are intact.; ; Impression:; Normal portable chest x-ray; ; ; Signed by; Flex Forrest MD 04/17/2016 08:23 A; Radiology Order: Chest, 2 view PA, Lat Test: Chest, 2 view PA, Lat REASON FOR EXAMINATION: SOB, hypoxia; Clinical: Hypoxia and shortness of breath.; ; Comparison: 04/17/2016 at 12:36 a.m.; ; Findings:; Mediastinum and cardiac silhouette are within normal limits and stable. Lung; garcia demonstrate chronic interstitial changes with coarsened interstitial; markings and subtle lower lobe opacities suggested. No effusion. No; pneumothorax. Skeletal structures intact.; ; Impression:; Coarsened markings and subtle lower lobe opacities suggest bronchitis and; possible basilar atelectasis/early infiltrate.; ; ; Signed by; Flex Forrest MD 04/17/2016 09:23 A; Outcome: 02:06 Decision to Hospitalize by Provider. mm11 02:33 Admission hand-off: Report called to Óscar Bear student admissions clerk Jones Nurse. feb 28 11:55 Property [place] [facility] [place] Discharge Assessment: patient administered narcotics - yes. Patient was [place] to the [facility] or transferred to another facility. Condition: stable. No special radiology studies were completed. 13:27 The following High Risk Discharge criteria are identified: None. Admitted to [place] [facility] [place] by nurse, via stretcher, with oxygen, with chart. 13:28 Patient left the [place]. [facility] Signatures: Dispatcher [employer] EDMS Maday Hunt RN RN Bre Schafer, Personal Carer Unit 3 Ada Streeter,RESIDENTIAL FINISH CARPENTER RESIDENTIAL FINISH CARPENTER [facility] Gama Lorenzo, DO mm11 Kasia Renee, HOSPITALITY AIDE HOSPITALITY AIDE ar3 Gina Streeter, HOSPITALITY AIDE HOSPITALITY AIDE Jose Amaya jh6 Sherron Jane RN RN mlc Redder, Kathie klr Montondo, Paul, Reg Reg pm4 Corrections: (The following items were deleted from the chart) 04/17 01:17 00:30 Reassessment: Patient appears in no apparent distress at this time. IV fluids mlc infusing per order. pt coughing, non-productive. . [facility] [place] [place] 04/18 12:34 11:57 The following High Risk Discharge criteria are identified: None. Ad[place] [facility] [place] by nurse, via stretcher, on monitor, with chart, Other with Nadia Oakes RN ACLS [facility] MTDD
--- NOTE | 2016-04-18 13:29 | EDDOCDS ---
Physician Documentation [facility] Name: Dontae Castillo Age: 51 yrs Sex: Male : 1965 Arrival Date: 04/17/2016 Time: 00:06 Bed Admit Hold MD: Disposition: 04/17/16 02:06 Hospitalization ordered by Hernando Mcgill for Inpatient Admission. Preliminary diagnosis is Influenza due to unidentified influenza virus. - Bed requested for 4 [place]. - Status is Inpatient Admission. me3 - Condition is Stable. - Problem is an acute exacerbation. - Symptoms have improved. Historical: - Allergies: Latex (Rash); - Home Meds: 1. prednisone 20 mg Oral tab 2 tabs once daily 2. Advair Diskus 500-50 mcg/dose Inhl dsdv 1 puff 2 times per day 3. breo eliptical daily 200-25mcg daily 4. citalopram 40 mg Oral tab 1 tab once daily 5. DuoNeb 0.5 mg-3 mg(2.5 mg base)/3 mL Inhl nebu 3 mL 4 times per day 6. Flonase 50 mcg/actuation Nasal spsn 1 spray 2 times per day 7. folic acid 1 mg Oral tab 1 tab once daily 8. hydroxyzine HCl 25 mg Oral tab 1 tab as needed 9. incruse elipta 62.5mg daily daily 10. levocetirizine 5 mg oral tab 1 tab once daily 11. montelukast 10 mg oral tab 1 tab once daily 12. naltrexone 50 mg oral tab 1 tab once daily has not been taking 13. Nasonex 50 mcg/actuation Nasal spry 2 sprays once daily 14. nicotine 14 mg/24 hr TD pt24 1 patch once daily 15. Patanol 0.1 % Opht drop 1 drop as needed 16. ProAir HFA 90 mcg/actuation inhalation HFAA prn 17. trazodone 50 mg Oral tab as needed 18. triamcinolone acetonide 0.1 % Topical crea as needed as needed 19. Ventolin Rotahaler/Rotacaps Inhl as needed 20. Vitamin B-12 150 mg Oral daily - PMHx: COPD; ETOH abuse; Hypertension; Seasonal Allergies; - PSHx: varicocele ligation; left ear; - Social history: Smoking status: Patient uses tobacco products, heavy tobacco smoker. Patient uses alcohol on a daily basis. No barriers to communication noted, The patient speaks fluent Montenegrin. - Family history: Not pertinent, No immediate family members are acutely ill. - : The pt / caregiver states he / she is not on anticoagulants. Home medication list is obtained from the patient, [employer] import data. - Exposure Risk Screening:: None identified. Vital Signs: 04/17 00:15 BP 127 / 76; Pulse 134; Resp 22; Temp 101.4(TE); Pulse Ox 92% on 3 lpm NC; Weight 68.04 erica kg / 150 lbs (R); Height 5 ft. 11 in. (180.34 cm) (R); Pain 0/10; 00:30 Pulse 118 MON; Pulse Ox 91% ; mlc 00:30 BP 122 / 75 (auto/); mlc 00:45 Pulse 98 MON; Pulse Ox 96% ; mlc 00:45 BP 128 / 58 (auto/); mlc 01:00 Pulse 103 MON; Pulse Ox 93% ; mlc 01:00 BP 126 / 68 (auto/); mlc 01:15 BP 138 / 73 (auto/); mlc 01:15 Pulse 96 MON; Pulse Ox 93% ; mlc 01:29 Pulse 94 MON; Pulse Ox 92% ; mlc 01:30 BP 131 / 74 (auto/); mlc 01:45 BP 102 / 57 (auto/); mlc 01:45 Pulse 92 MON; Pulse Ox 91% ; mlc 02:00 BP 105 / 57 (auto/); mlc 02:14 Pulse 110 MON; Pulse Ox 97% ; mlc 02:15 BP 121 / 64 (auto/); mlc 02:16 Temp 99.2(O); erica 00:15 Body Mass Index 20.92 (68.04 kg, 180.34 cm) erica MDM: 00:17 ECG WITH READING ER PHYS+CARDIAG ordered. EDMS 00:29 -Blood Culture (Adults Only), peripheral from different site, or from device/port/PICC mm11 etc. if present ordered. 00:29 Call Respiratory ordered. mm11 00:29 Pipelines Supervisor/Pulse Ox/q 15 min VS ordered. mm11 00:29 IV Saline Lock ordered. mm11 00:29 Oxygen at 4L/Min NC or Home dosage ordered. mm11 00:29 Rhythm Strip to chart ordered. mm11 00:29 NS 0.9% 1000 ml IV at bolus once ordered. mm11 00:29 Acetaminophen Tablet 650 mg PO once ordered. mm11 00:29 Basic Metabolic Profile Ordered. EDMS 00:29 CBC with Diff Ordered. EDMS 00:29 Cardiac Injury Profile Ordered. EDMS 00:29 Troponin Ordered. EDMS 00:29 Lactic Acid (Anderson tube on ice) Ordered. EDMS 00:29 -Blood Culture Ordered. EDMS 00:30 -Influenza A&B Rapid Antigen - Nose Ordered. EDMS 00:30 Chest, 1 View Ordered. EDMS 00:31 Call Respiratory complete. ml3 00:31 Albuterol-Ipratropium 3 ml Inhalation once ordered. mm11 00:34 -Blood Culture (Adults Only), peripheral from different site, or from device/port/PICC ml3 etc. if present complete. 00:35 BLOOD CULTURES Ordered. EDMS 01:38 RBC MORPH PROF NO CHARGE Ordered. EDMS 01:39 Albuterol-Ipratropium 3 ml Inhalation once ordered. mm11 01:39 Call Respiratory ordered. mm11 01:41 CBC with Diff Reviewed. mm11 01:41 Call Respiratory complete. mlc 01:46 -Influenza A&B Rapid Antigen - Nose Reviewed. mm11 01:46 BED REQUEST+ADM ordered. EDMS 01:57 Admission / Observation Status ordered. EDMS 01:57 REGULAR DIET ordered. EDMS 01:59 RESPIRATORY PANEL Ordered. EDMS 01:59 SPUTUM CULTURE AND GRAM STAIN Ordered. EDMS 02:05 CBC with Diff Reviewed. mm11 02:05 RBC MORPH PROF NO CHARGE Reviewed. mm11 02:39 Financial registration complete. pm4 02:42 [facility] Payment Agreement was scanned into [employer] and attached to record. pm4 07:41 LACTIC ACID LEVEL, LACTATE Ordered. EDMS 08:44 Chest, 2 view PA, Lat Ordered. EDMS 08:46 CBC WITH MANUAL DIFFERENTAL Ordered. EDMS 08:46 COMPLETE COMPHRENSIVE METABOLI Ordered. EDMS 15:03 Admission Orders was scanned into [employer] and attached to record. ar3 19:32 T-Sheet-- Draft Copy was scanned into [employer] and attached to record. klr Administered Medications: 00:39 Drug: Albuterol-Ipratropium 3 ml [ipratropium-albuterol 0.5 mg-3 mg(2.5 mg base)/3 mL jh6 nebulization soln (3 mL)] Route: Inhalation; 01:00 Drug: NS 0.9% 1000 ml [sodium chloride 0.9 % intravenous solution] Route: IV; Rate: mlc bolus; Site: left hand; 01:00 Drug: Acetaminophen 650 mg [acetaminophen 325 mg tablet (2 tabs)] Route: PO; mlc 02:06 Drug: Albuterol-Ipratropium 3 ml [ipratropium-albuterol 0.5 mg-3 mg(2.5 mg base)/3 mL jh6 nebulization soln (3 mL)] Route: Inhalation; Signatures: Dispatcher [employer] EDMS Latrice Garay, JAMES RN kpj Bre Love, Metal Machine Setter Unit ml3 Ada Streeter LPN COMPUTER REPAIRER me3 Marco Lorenzo, DO DO mm11 Pablo, Kira mt4 Kasia Renee, LACE MENDER LACE MENDER ar3 Sherron Jane RN RN mlc Redder, Kathie klr Montondo, Paul, Reg Reg pm4 Jose Umana 6 The chart was reviewed and I authenticate all verbal orders and agree with the evaluation and treatment provided.Corrections: (The following items were deleted from the chart) 07:16 02:26 LACTIC ACID LEVEL, LACTATE ordered. [facility] EDNC Attachments: 02:42 [facility] Payment Agreement pm4 15:03 Admission Orders ar3 19:32 T-Sheet-- Draft Copy klcarolyn MTDD
--- NOTE | 2016-04-18 16:08 | IPNPDOC ---
Subjective Date Seen The patient was seen on 04/18/16. Subjective Chief Complaint/HPI The patient is a 51-year-old male admitted with a reason for visit of CAP. Events since last encounter Patient states he is feeling much better. Continues to have some shortness of breath, although improved. Continues to have wheezing, improved with nebulizer treatments. Patient is interested in quitting drinking. Currently drinking nearly a liter of hard alcohol daily. He had plans to go to rehabilitation. Constitutional: Denies: Chills, Fever, Malaise Skin: Denies: Rash Pulmonary: Reports: Cough, Denies: Dyspnea, Pleuritic Chest Pain Cardiovascular: Denies: Chest Pain, Palpitations Gastrointestinal: Denies: Abdominal Pain, Diarrhea, Nausea, Vomiting Genitourinary: Denies: Dysuria Other systems 10 point review of systems otherwise negative Objective Physical Examination General Exam: Positive: Alert, Cooperative, No Acute Distress ENT Exam: Positive: Atraumatic, Mucous membr. moist/pink, Pharynx Normal Neck Exam: Positive: Supple, Negative: JVD, thyromegaly Chest Exam: Positive: Diminished Heart Exam: Positive: Normal S1, Normal S2, Rate Normal, Regular Rhythm, Negative: Murmurs, Rubs Telemetry: Positive: No significant arrhythmia Abdomen Exam: Positive: Normal bowel sounds, Soft, Negative: Hepatospenomegaly, Tenderness Extremity Exam: Positive: Normal pulses, Negative: Clubbing, Cyanosis, Edema Skin Exam: Positive: Nl turgor and temperature, Negative: Breakdown, Rash Neuro Exam: Positive: Normal Gait, Normal Speech, Other (mild tremor) Psych Exam: Positive: Anxiety, Oriented x 3 Assessment /Plan Problems (1) COPD exacerbation Status: Acute Response to Treatment: Improving Problem Text: Levaquin day 2. Duonebs q 8 hrs with q2 hrs prn ordered. Solumedrol IV. Oxygen 2LNC, which is below patient's baseline. Afebrile for 24 hours. -Wean methylprednisolone -Continue Levaquin -Discharge planning with PFS (2) CAP (community acquired pneumonia) Status: Acute Problem Text: Levaquin day 2. See above. White count down trending, now normal , lactic acidosis resolved. (3) Alcohol abuse Status: Chronic Problem Text: PFS consulted. Patient interested in rehabilitation services. Currently without a stable living situation. -Folic Acid, B12 and thiamine -[facility] protocol -Tranxene 7.5 mg twice a day, with PRN lorazepam (4) Hypertension Status: Chronic Response to Treatment: Stable Problem Text: Blood pressures elevated, possibly secondary to alcohol withdrawal -Withdrawal management as above -Lisinopril 5 mg daily (5) Depression Status: Chronic Problem Text: Patient is currently in good spirits. Planning to rehabilitation from alcohol dependence. -Continue citalopram 40 mg daily (6) Tobacco abuse Status: Chronic Problem Text: Nicotine patch ordered and in place. Plan/VTE VTE Prophylaxis Ordered?: Yes (Lovenox) Plan Diet: Continue Current Activity: Continue Current Anticipated Discharge: Psych, Other Anticipated D/C (rehab) Disposition Discharge dependent on patient's withdrawal status and resolution of pneumonia VS, I&O, 24H, [place] Vital Signs/I&O Vital Signs Date Time Temp Pulse Resp B/P Pulse Ox O2 Delivery O2 Flow Rate FiO2 04/18/16 13:40 Nasal Cannula 2.0 04/18/16 13:40 98.7 103 19 158/96 95 I&O- Last 24 Hours up to 6 AM 04/18/16 06:00 Intake Total 1940 ml Output Total 4525 ml Balance -2585 ml Laboratory Data Microbiology Microbiology 04/17/16 Blood Culture - Preliminary, Resulted No growth after 24 hours . All specim... 04/17/16 Blood Culture - Preliminary, Resulted No growth after 24 hours . All specim... 04/17/16 Respiratory Virus Panel (PCR) ([facility]) - Final, Complete 04/17/16 Gram Stain, Ordered Pending 04/17/16 Sputum Culture, Ordered Pending 04/17/16 Influenza Virus Type A Antigen - Final, Complete 04/17/16 Influenza Virus Type B Antigen - Final, Complete ROBERT TEAGUE MD Apr 18, 2016 16:08
[2016-04-18] MEDS ORDERED: LORazepam 2 MG TAB PO PRN (16:15)
[2016-04-18] MEDS: CLORAZEPATE 3.75 MG TAB PO SCH (20:47)
[2016-04-19] MEDS: LevoFLOXacin IV 500 MG in APPROPRIATE DILUENT 1 EA IV SCH (02:32)
[2016-04-19] MEDS: methylPREDNISolone INJ 125 MG/2 ML VIAL (J2930) IV SCH ×2 (03:42→20:07)
[2016-04-19 05:45] LABS: MEAN CORPUSCULAR HEMOGLOBIN 32.5 pg (27.0-33.0); MEAN CORPUSCULAR HGB CONC 34.3 g/dl (32.0-36.5); MEAN CORPUSCULAR VOLUME 94.7 fl (80.0-96.0); RED CELL DISTRIBUTION WIDTH 13.9 % (11.5-14.5)
[2016-04-19 06:00] VITALS: BP 117/74
[2016-04-19 06:05] LABS: ALBUMIN 2.9 GM/DL (3.2-5.2); ALBUMIN/GLOBULIN RATIO 0.97 (1.00-1.93); ALKALINE PHOSPHATASE 55 U/L (45-117); ALT/SGPT 44 U/L (12-78); ANION GAP 9 MEQ/L (8-16); AST/SGOT 19 U/L (15-37); BILIRUBIN,TOTAL 0.8 MG/DL (0.2-1.0); BLOOD UREA NITROGEN 10 MG/DL (7-18); CALCIUM LEVEL 8.8 MG/DL (8.5-10.1); CARBON DIOXIDE LEVEL 27 MEQ/L (21-32); CHLORIDE LEVEL 101 MEQ/L (98-107); CREATININE FOR GFR 0.47 MG/DL (0.70-1.30); GLOMERULAR FILTRATION RATE > 60.0 (>56); GLUCOSE, FASTING 159 MG/DL (70-105); POTASSIUM SERUM 4.1 MEQ/L (3.5-5.1); SODIUM LEVEL 137 MEQ/L (136-145); TOTAL PROTEIN 5.9 GM/DL (6.4-8.2)
[2016-04-19] MEDS: ADVAIR DISKUS 500/50 INH PWD INH SCH ×2 (07:32→19:21)
[2016-04-19] MEDS: IPRATROPIUM 0.5MG/ALBUTEROL 2.5MG INH SOL UD 3ML (DUONEB)(J7620) NEB SCH ×3 (07:33→23:24)
[2016-04-19] MEDS: NICOTINE 14 MG/24 HR TRANSDERMAL TD SCH (10:09)
[2016-04-19] MEDS: ENOXAPARIN 40 MG/0.4 ML SYRINGE (J1650) SC SCH (10:09)
[2016-04-19] MEDS: NALTREXONE 50 MG TAB PO SCH (10:09)
[2016-04-19 10:10] VITALS: BP 129/73
[2016-04-19] MEDS: FOLIC ACID 1 MG TAB PO SCH (10:10)
[2016-04-19] MEDS: THIAMINE 100 MG TAB PO SCH (10:10)
[2016-04-19] MEDS: busPIRone 5 MG TAB PO SCH ×2 (10:10→20:08)
[2016-04-19] MEDS: LISINOPRIL 5 MG TAB PO SCH (10:10)
[2016-04-19] MEDS: MULTIVITAMINS/MINERALS THERAP 1 TAB PO SCH (10:11)
[2016-04-19] MEDS: CLORAZEPATE 3.75 MG TAB PO SCH ×2 (10:11→20:07)
[2016-04-19] MEDS: CYANOCOBALAMIN 250 MCG TABLET PO SCH (10:11)
[2016-04-19] MEDS: MONTELUKAST 10 MG TAB PO SCH (10:11)
[2016-04-19] MEDS: CETIRIZINE (ZyrTEC) 10 MG TAB PO SCH (10:11)
[2016-04-19] MEDS: CitaloPRAM (CeleXA) 20 MG TAB PO SCH (10:11)
[2016-04-19] MEDS: FLUTICASONE PROP 0.05% NASAL SPRAY 16 GM (FLONASE) SCH (10:12)
--- NOTE | 2016-04-19 10:29 | IPNPDOC ---
Subjective Date Seen The patient was seen on 04/19/16. Subjective Chief Complaint/HPI The patient is a 51-year-old male admitted with a reason for visit of CAP. Events since last encounter Subjectively, feeling much better today. Respiratory status improving. He's only requiring 2L NC-- home dose = 3L. Reports continued dry cough, unproductive. Afebrile. General: Reports: Normal Appetite, Denies: Chills, Fatigue, Malaise, Night Sweats Constitutional: Denies: Chills, Fever, Night Sweats Skin: Denies: Breakdown, Lesions, Rash Cardiovascular: Denies: Chest Pain, Lt Headedness, Orthopnea, Palpitations, Paroxysmal Noc. Dyspnea Musculoskeletal: Denies: Back Pain, Joint Pain, Muscle Pain, Neck Pain, Spasms Objective Physical Examination General Exam: Positive: Alert, Cooperative, No Acute Distress ENT Exam: Positive: Atraumatic, Mucous membr. moist/pink, Pharynx Normal Neck Exam: Positive: Supple, Negative: JVD, thyromegaly Chest Exam: Positive: Diminished, Other (coarse bilaterally) Heart Exam: Positive: Normal S1, Normal S2, Rate Normal, Regular Rhythm, Negative: Murmurs, Rubs Telemetry: Positive: No significant arrhythmia Abdomen Exam: Positive: Normal bowel sounds, Soft, Negative: Hepatospenomegaly, Tenderness Extremity Exam: Positive: Normal pulses, Negative: Clubbing, Cyanosis, Edema Skin Exam: Positive: Nl turgor and temperature, Negative: Breakdown, Rash Neuro Exam: Positive: Normal Gait, Normal Speech, Other (mild tremor) Psych Exam: Positive: Anxiety, Oriented x 3 Assessment /Plan Problems (1) COPD exacerbation Status: Acute Response to Treatment: Improving Problem Text: Levaquin day 3, switch to oral. Duonebs q 8 hrs with q2 hrs prn ordered. Solumedrol IV. Oxygen 2LNC, which is below patient's baseline. Afebrile for 24 hours. -Wean methylprednisolone to q12 today -Continue Levaquin -Discharge planning with PFS (2) CAP (community acquired pneumonia) Status: Acute Problem Text: Levaquin day 3. See above. White count down trending, now normal , lactic acidosis resolved. (3) Alcohol abuse Status: Chronic Problem Text: PFS consulted. Patient interested in rehabilitation services. Currently without a stable living situation. -CIWA scores have been low (1-2), however, he is at risk for severe withdrawal considering his high volume consumption. He would best be served being transferred to an in rehab center when a bed becomes available. -Folic Acid, B12 and thiamine -Tranxene 7.5 mg twice a day, with PRN lorazepam (has not required-- see CIWA #s ) (4) Hypertension Status: Chronic Response to Treatment: Stable Problem Text: Readings over past 6 hours demonstrate much improvement. -Withdrawal management as above -Lisinopril 5 mg daily continued (5) Depression Status: Chronic Problem Text: Patient is currently in good spirits. Planning to rehabilitation from alcohol dependence. -Continue citalopram 40 mg daily (6) Tobacco abuse Status: Chronic Problem Text: Nicotine patch ordered and in place. Plan/VTE VTE Prophylaxis Ordered?: Yes (Lovenox) Plan Diet: Continue Current Activity: Continue Current Anticipated Discharge: Psych, Other Anticipated D/C (rehab) Attending attestation: I saw and evaluated the patient, and I agree with the plan of care as discussed and documented by the resident. Terrence Jean Baptiste MD VS, I&O, 24H, [facility] Vital Signs/I&O Vital Signs Date Time Temp Pulse Resp B/P Pulse Ox O2 Delivery O2 Flow Rate FiO2 04/19/16 10:10 129/73 04/19/16 06:00 98.4 71 20 94 Nasal Cannula 2.0 I&O- Last 24 Hours up to 6 AM 04/19/16 05:59 Intake Total 1700 ml Output Total 2650 ml Balance -950 ml Laboratory Data 24H LABS Laboratory Tests 2 04/19/16 05:25: Blood Urea Nitrogen 10, Creatinine 0.47L, Sodium Level 137, Potassium Level 4.1# , Chloride Level 101, Carbon Dioxide Level 27, Calcium Level 8.8#, Aspartate Amino Transf (AST/SGOT) 19, Alanine Aminotransferase (ALT/SGPT) 44, Alkaline Phosphatase 55, Total Bilirubin 0.8, Total Protein 5.9L, Albumin 2.9L, Albumin/ Globulin Ratio 0.97L, Anion Gap 9, Atypical Lymphocytes 2, Glomerular Filtration Rate > 60.0, Lymphocytes (Manual) 5L, Monocytes (Manual) 6, Neutrophils 87H, Platelet Estimate DECREASED, Red Blood Cell Morphology NORMAL CBC/BMP Laboratory Tests 04/19/16 05:25 Calcium Level 8.8 #, Aspartate Amino Transf (AST/SGOT) 19, Alanine Aminotransferase (ALT/SGPT) 44, Alkaline Phosphatase 55, Total Bilirubin 0.8, Total Protein 5.9 L, Albumin 2.9 L Microbiology Microbiology 04/17/16 Blood Culture - Preliminary, Resulted No Growth after 48 hours. All Specime... 04/17/16 Blood Culture - Preliminary, Resulted No Growth after 48 hours. All Specime... 04/17/16 Respiratory Virus Panel (PCR) ([facility]) - Final, Complete 04/17/16 Gram Stain, Ordered Pending 04/17/16 Sputum Culture, Ordered Pending 04/17/16 Influenza Virus Type A Antigen - Final, Complete 04/17/16 Influenza Virus Type B Antigen - Final, Complete TEODORA MONTALVO DO Apr 19, 2016 10:29 TERRENCE JEAN BAPTISTE MD Apr 24, 2016 12:12
[2016-04-19 14:00] VITALS: BP 137/76
[2016-04-19 22:00] VITALS: BP 139/81
[2016-04-19 22:19] VITALS: BP 139/81
[2016-04-20] MEDS: LevoFLOXacin 500 MG TABLET PO SCH (05:21)
[2016-04-20 05:24] VITALS: BP 140/82
[2016-04-20 06:00] VITALS: BP 140/82
[2016-04-20 06:06] LABS: MEAN CORPUSCULAR HEMOGLOBIN 31.7 pg (27.0-33.0); MEAN CORPUSCULAR HGB CONC 33.3 g/dl (32.0-36.5); MEAN CORPUSCULAR VOLUME 95.1 fl (80.0-96.0); RED CELL DISTRIBUTION WIDTH 13.6 % (11.5-14.5); WHITE BLOOD COUNT 7.6 K/mm3 (4.0-10.0)
[2016-04-20 06:31] LABS: ALBUMIN 2.9 GM/DL (3.2-5.2); ALBUMIN/GLOBULIN RATIO 0.94 (1.00-1.93); ALKALINE PHOSPHATASE 49 U/L (45-117); ALT/SGPT 38 U/L (12-78); ANION GAP 10 MEQ/L (8-16); AST/SGOT 16 U/L (15-37); BILIRUBIN,TOTAL 0.5 MG/DL (0.2-1.0); BLOOD UREA NITROGEN 10 MG/DL (7-18); CALCIUM LEVEL 8.5 MG/DL (8.5-10.1); CARBON DIOXIDE LEVEL 27 MEQ/L (21-32); CHLORIDE LEVEL 102 MEQ/L (98-107); CREATININE FOR GFR 0.52 MG/DL (0.70-1.30); GLOMERULAR FILTRATION RATE > 60.0 (>56); GLUCOSE, FASTING 158 MG/DL (70-105); POTASSIUM SERUM 3.6 MEQ/L (3.5-5.1); SODIUM LEVEL 139 MEQ/L (136-145)
[2016-04-20] MEDS: ADVAIR DISKUS 500/50 INH PWD INH SCH ×2 (07:34→20:57)
[2016-04-20] MEDS: IPRATROPIUM 0.5MG/ALBUTEROL 2.5MG INH SOL UD 3ML (DUONEB)(J7620) NEB SCH ×3 (07:34→23:56)
[2016-04-20] MEDS: ENOXAPARIN 40 MG/0.4 ML SYRINGE (J1650) SC SCH (09:38)
[2016-04-20] MEDS: LISINOPRIL 5 MG TAB PO SCH (09:39)
[2016-04-20] MEDS: MULTIVITAMINS/MINERALS THERAP 1 TAB PO SCH (09:39)
[2016-04-20] MEDS: methylPREDNISolone INJ 125 MG/2 ML VIAL (J2930) IV SCH (09:39)
[2016-04-20] MEDS: NICOTINE 14 MG/24 HR TRANSDERMAL TD SCH (09:39)
[2016-04-20 09:40] VITALS: BP 153/87
[2016-04-20] MEDS: FLUTICASONE PROP 0.05% NASAL SPRAY 16 GM (FLONASE) SCH (09:40)
[2016-04-20] MEDS: CYANOCOBALAMIN 250 MCG TABLET PO SCH (09:40)
[2016-04-20] MEDS: THIAMINE 100 MG TAB PO SCH (09:40)
[2016-04-20] MEDS: FOLIC ACID 1 MG TAB PO SCH (09:40)
[2016-04-20] MEDS: CLORAZEPATE 3.75 MG TAB PO SCH ×2 (09:40→20:13)
[2016-04-20] MEDS: CitaloPRAM (CeleXA) 20 MG TAB PO SCH (09:40)
[2016-04-20] MEDS: NALTREXONE 50 MG TAB PO SCH (09:40)
[2016-04-20] MEDS: MONTELUKAST 10 MG TAB PO SCH (09:40)
[2016-04-20] MEDS: CETIRIZINE (ZyrTEC) 10 MG TAB PO SCH (09:40)
[2016-04-20] MEDS: busPIRone 5 MG TAB PO SCH ×2 (09:40→20:13)
--- NOTE | 2016-04-20 10:21 | IPNPDOC ---
Subjective Date Seen The patient was seen on 04/20/16. Subjective Chief Complaint/HPI The patient is a 51-year-old male admitted with a reason for visit of CAP. Events since last encounter Seen and evaluated on 4[facility]. Respiratory status continues to improve. Spoke c case management re: post-hospital placement. Apparently most in-patient rehabilitation centers will not take patients who have not yet participated in / failed outpt rehabilitation. PFS is working on options, including placement c [facility] for jail since he is homeless. General: Reports: Normal Appetite, Denies: Chills, Fatigue, Malaise, Night Sweats Constitutional: Denies: Chills, Fever, Night Sweats Pulmonary: Denies: Cough, Dyspnea Cardiovascular: Denies: Chest Pain, Lt Headedness, Orthopnea, Palpitations, Paroxysmal Noc. Dyspnea Gastrointestinal: Denies: Abdominal Pain, Constipation, Diarrhea, Nausea, Vomiting Neurological: Denies: Change in speech, Confusion, Numbness, Weakness Psych: Reports: Mood Normal, Denies: Depression, Memory Issues Objective Physical Examination General Exam: Positive: Alert, Cooperative, No Acute Distress ENT Exam: Positive: Atraumatic, Mucous membr. moist/pink, Pharynx Normal Neck Exam: Positive: Supple, Negative: JVD, thyromegaly Chest Exam: Positive: Diminished, Other (coarse bilaterally) Heart Exam: Positive: Normal S1, Normal S2, Rate Normal, Regular Rhythm, Negative: Murmurs, Rubs Telemetry: Positive: No significant arrhythmia Abdomen Exam: Positive: Normal bowel sounds, Soft, Negative: Hepatospenomegaly, Tenderness Extremity Exam: Positive: Normal pulses, Negative: Clubbing, Cyanosis, Edema Skin Exam: Positive: Nl turgor and temperature, Negative: Breakdown, Rash Neuro Exam: Positive: Normal Gait, Normal Speech, Other (mild tremor) Psych Exam: Positive: Anxiety, Oriented x 3 Assessment /Plan Problems (1) COPD exacerbation Status: Acute Response to Treatment: Improving Problem Text: Levaquin day 4. Duonebs q 8 hrs with q2 hrs prn ordered. Solumedrol IV. Oxygen 2LNC, which is below patient's baseline. Afebrile for 48 hours. -Wean methylprednisolone 80 BID to 40 BID today in anticipation of switching to oral tomorrow. -Continue Levaquin -Discharge planning with PFS (2) CAP (community acquired pneumonia) Status: Acute Problem Text: Levaquin day 4. See above. White count down trending, now normal , lactic acidosis resolved. (3) Alcohol abuse Status: Chronic Problem Text: PFS consulted. Patient interested in rehabilitation services. Currently without a stable living situation. Spoke c case management re: post- hospital placement. Apparently most in-patient rehabilitation centers will not take patients who have not yet participated in / failed outpt rehabilitation. PFS is working on options, including placement c [facility] for jail since he is homeless. -pt reports that he's on a waiting list @ [facility] inpt rehab -CIWA scores have been low (1-2), however, he is at risk for severe withdrawal considering his high volume consumption. - Reports that he's experienced tremors in the past but never seizures or other severe signs of EtOH w/drawal. Longest he's gone w/o EtOH is 11 yrs. -Folic Acid, B12 and thiamine -Tranxene 7.5 mg twice a day, with PRN lorazepam (has not required-- see CIWA #s ) (4) Hypertension Status: Chronic Response to Treatment: Stable Problem Text: Readings over past 6 hours demonstrate much improvement. -Withdrawal management as above -Lisinopril 5 mg daily continued (5) Depression Status: Chronic Problem Text: Patient is currently in good spirits. Planning to rehabilitation from alcohol dependence. -Continue citalopram 40 mg daily (6) Tobacco abuse Status: Chronic Problem Text: Nicotine patch ordered and in place. Plan/VTE VTE Prophylaxis Ordered?: Yes (Lovenox) Plan Diet: Continue Current Activity: Continue Current Anticipated Discharge: Psych, Other Anticipated D/C (rehab) VS, I&O, 24H, [facility] Vital Signs/I&O Vital Signs Date Time Temp Pulse Resp B/P Pulse Ox O2 Delivery O2 Flow Rate FiO2 04/20/16 09:39 153/87 04/20/16 06:00 96.0 56 20 97 Nasal Cannula 2.0 I&O- Last 24 Hours up to 6 AM 04/20/16 06:00 Intake Total 2400 ml Output Total 3275 ml Balance -875 ml Laboratory Data 24H LABS Laboratory Tests 2 04/20/16 05:42: Blood Urea Nitrogen 10, Creatinine 0.52L, Sodium Level 139, Potassium Level 3.6 , Chloride Level 102, Carbon Dioxide Level 27, Calcium Level 8.5, Aspartate Amino Transf (AST/SGOT) 16, Alanine Aminotransferase (ALT/SGPT) 38, Alkaline Phosphatase 49, Total Bilirubin 0.5, Total Protein 6.0L, Albumin 2.9L, Albumin/ Globulin Ratio 0.94L, Anion Gap 10, Atypical Lymphocytes 1, Glomerular Filtration Rate > 60.0, Lymphocytes (Manual) 16, Monocytes (Manual) 4, Neutrophils 79H, Platelet Estimate DECREASED CBC/BMP Laboratory Tests 04/20/16 05:42 Calcium Level 8.5, Aspartate Amino Transf (AST/SGOT) 16, Alanine Aminotransferase (ALT/SGPT) 38, Alkaline Phosphatase 49, Total Bilirubin 0.5, Total Protein 6.0 L, Albumin 2.9 L Microbiology Microbiology 04/17/16 Blood Culture - Preliminary, Resulted No Growth after 72 hours. All specime... 04/17/16 Blood Culture - Preliminary, Resulted No Growth after 72 hours. All specime... 04/17/16 Respiratory Virus Panel (PCR) ([facility]) - Final, Complete 04/17/16 Gram Stain, Ordered Pending 04/17/16 Sputum Culture, Ordered Pending 04/17/16 Influenza Virus Type A Antigen - Final, Complete 04/17/16 Influenza Virus Type B Antigen - Final, Complete TEODORA MONTALVO DO Apr 20, 2016 10:21
[2016-04-20 14:00] VITALS: BP 152/80
--- NOTE | 2016-04-20 14:29 | EDDOCDS ---
Physician Documentation [facility] Name: Dontae Castillo Age: 51 yrs Sex: Male : 1965 Arrival Date: 04/17/2016 Time: 00:06 Bed Admit Hold MD: Disposition: 04/17/16 02:06 Hospitalization ordered by Hernando Mcgill for Inpatient Admission. Preliminary diagnosis is Influenza due to unidentified influenza virus. - Bed requested for 4 [place]. - Status is Inpatient Admission. me3 - Condition is Stable. - Problem is an acute exacerbation. - Symptoms have improved. Historical: - Allergies: Latex (Rash); - Home Meds: 1. prednisone 20 mg Oral tab 2 tabs once daily 2. Advair Diskus 500-50 mcg/dose Inhl dsdv 1 puff 2 times per day 3. breo eliptical daily 200-25mcg daily 4. citalopram 40 mg Oral tab 1 tab once daily 5. DuoNeb 0.5 mg-3 mg(2.5 mg base)/3 mL Inhl nebu 3 mL 4 times per day 6. Flonase 50 mcg/actuation Nasal spsn 1 spray 2 times per day 7. folic acid 1 mg Oral tab 1 tab once daily 8. hydroxyzine HCl 25 mg Oral tab 1 tab as needed 9. incruse elipta 62.5mg daily daily 10. levocetirizine 5 mg oral tab 1 tab once daily 11. montelukast 10 mg oral tab 1 tab once daily 12. naltrexone 50 mg oral tab 1 tab once daily has not been taking 13. Nasonex 50 mcg/actuation Nasal spry 2 sprays once daily 14. nicotine 14 mg/24 hr TD pt24 1 patch once daily 15. Patanol 0.1 % Opht drop 1 drop as needed 16. ProAir HFA 90 mcg/actuation inhalation HFAA prn 17. trazodone 50 mg Oral tab as needed 18. triamcinolone acetonide 0.1 % Topical crea as needed as needed 19. Ventolin Rotahaler/Rotacaps Inhl as needed 20. Vitamin B-12 150 mg Oral daily - PMHx: COPD; ETOH abuse; Hypertension; Seasonal Allergies; - PSHx: varicocele ligation; left ear; - Social history: Smoking status: Patient uses tobacco products, heavy tobacco smoker. Patient uses alcohol on a daily basis. No barriers to communication noted, The patient speaks fluent Somali. - Family history: Not pertinent, No immediate family members are acutely ill. - : The pt / caregiver states he / she is not on anticoagulants. Home medication list is obtained from the patient, [employer] import data. - Exposure Risk Screening:: None identified. Vital Signs: 04/17 00:15 BP 127 / 76; Pulse 134; Resp 22; Temp 101.4(TE); Pulse Ox 92% on 3 lpm NC; Weight 68.04 erica kg / 150 lbs (R); Height 5 ft. 11 in. (180.34 cm) (R); Pain 0/10; 00:30 Pulse 118 MON; Pulse Ox 91% ; mlc 00:30 BP 122 / 75 (auto/); mlc 00:45 Pulse 98 MON; Pulse Ox 96% ; mlc 00:45 BP 128 / 58 (auto/); mlc 01:00 Pulse 103 MON; Pulse Ox 93% ; mlc 01:00 BP 126 / 68 (auto/); mlc 01:15 BP 138 / 73 (auto/); mlc 01:15 Pulse 96 MON; Pulse Ox 93% ; mlc 01:29 Pulse 94 MON; Pulse Ox 92% ; mlc 01:30 BP 131 / 74 (auto/); mlc 01:45 BP 102 / 57 (auto/); mlc 01:45 Pulse 92 MON; Pulse Ox 91% ; mlc 02:00 BP 105 / 57 (auto/); mlc 02:14 Pulse 110 MON; Pulse Ox 97% ; mlc 02:15 BP 121 / 64 (auto/); mlc 02:16 Temp 99.2(O); erica 00:15 Body Mass Index 20.92 (68.04 kg, 180.34 cm) erica MDM: 00:17 ECG WITH READING ER PHYS+CARDIAG ordered. EDMS 00:29 -Blood Culture (Adults Only), peripheral from different site, or from device/port/PICC mm11 etc. if present ordered. 00:29 Call Respiratory ordered. mm11 00:29 Material Reprocessing Associate/Pulse Ox/q 15 min VS ordered. mm11 00:29 IV Saline Lock ordered. mm11 00:29 Oxygen at 4L/Min NC or Home dosage ordered. mm11 00:29 Rhythm Strip to chart ordered. mm11 00:29 NS 0.9% 1000 ml IV at bolus once ordered. mm11 00:29 Acetaminophen Tablet 650 mg PO once ordered. mm11 00:29 Basic Metabolic Profile Ordered. EDMS 00:29 CBC with Diff Ordered. EDMS 00:29 Cardiac Injury Profile Ordered. EDMS 00:29 Troponin Ordered. EDMS 00:29 Lactic Acid (Anderson tube on ice) Ordered. EDMS 00:29 -Blood Culture Ordered. EDMS 00:30 -Influenza A&B Rapid Antigen - Nose Ordered. EDMS 00:30 Chest, 1 View Ordered. EDMS 00:31 Call Respiratory complete. ml3 00:31 Albuterol-Ipratropium 3 ml Inhalation once ordered. mm11 00:34 -Blood Culture (Adults Only), peripheral from different site, or from device/port/PICC ml3 etc. if present complete. 00:35 BLOOD CULTURES Ordered. EDMS 01:38 RBC MORPH PROF NO CHARGE Ordered. EDMS 01:39 Albuterol-Ipratropium 3 ml Inhalation once ordered. mm11 01:39 Call Respiratory ordered. mm11 01:41 CBC with Diff Reviewed. mm11 01:41 Call Respiratory complete. mlc 01:46 -Influenza A&B Rapid Antigen - Nose Reviewed. mm11 01:46 BED REQUEST+ADM ordered. EDMS 01:57 Admission / Observation Status ordered. EDMS 01:57 REGULAR DIET ordered. EDMS 01:59 RESPIRATORY PANEL Ordered. EDMS 01:59 SPUTUM CULTURE AND GRAM STAIN Ordered. EDMS 02:05 CBC with Diff Reviewed. mm11 02:05 RBC MORPH PROF NO CHARGE Reviewed. mm11 02:39 Financial registration complete. pm4 02:42 [facility] [place] Agreement was scanned into [employer] and attached to record. pm4 07:41 LACTIC ACID LEVEL, LACTATE Ordered. EDMS 08:44 Chest, 2 view PA, Lat Ordered. EDMS 08:46 CBC WITH MANUAL DIFFERENTAL Ordered. EDMS 08:46 COMPLETE COMPHRENSIVE METABOLI Ordered. EDMS 15:03 Admission Orders was scanned into [employer] and attached to record. ar3 19:32 T-Sheet-- Draft Copy was scanned into [employer] and attached to record. klr 04/18 14:39 ECG/EKG was scanned into [employer] and attached to record. gb 14:39 PCR was scanned into [employer] and attached to record. gb 04/19 13:10 Trend VS was scanned into [employer] and attached to record. gb Administered Medications: 04/17 00:39 Drug: Albuterol-Ipratropium 3 ml [ipratropium-albuterol 0.5 mg-3 mg(2.5 mg base)/3 mL jh6 nebulization soln (3 mL)] Route: Inhalation; 01:00 Drug: NS 0.9% 1000 ml [sodium chloride 0.9 % intravenous solution] Route: IV; Rate: mlc bolus; Site: left hand; 01:00 Drug: Acetaminophen 650 mg [acetaminophen 325 mg tablet (2 tabs)] [place] [facility] [place] Drug: Albuterol-Ipratropium 3 ml [ipratropium-albuterol 0.5 mg-3 mg(2.5 mg base)/3 mL jh6 nebulization soln (3 mL)] Route: Inhalation; Signatures: [facility] ED[facility] Latrice Garay, JAMES RAMIREZ Eryn Castro, Reg Reg gb Bre Love, Wood Router Unit ml3 Ada Streeter,COLORED LEATHER SETTER COLORED LEATHER SETTER me3 Marco Lorenzo, DO DO mm11 Pablo, Kira mt4 Kasia Renee, PROGRAMS DIRECTOR PROGRAMS DIRECTOR ar3 Sherron Jane RN RN [facility] [place] Ramonita Gil Paul, Reg Reg pm4 Jose Umana jh6 The chart was reviewed and I authenticate all verbal orders and agree with the evaluation and treatment provided.Corrections: (The following items were deleted from the chart) 07:16 02:26 LACTIC ACID LEVEL, LACTATE ordered. EDMO EDMS Attachments: 02:42 [facility] Agreement pm4 15:03 Admission Orders ar3 19:32 T-Sheet-- Draft Copy r 04/18 14:39 ECG/EKG Chart Complete MTDD
--- NOTE | 2016-04-20 14:29 | EDDOCDS ---
Physician Documentation [facility] Name: Dontae Castillo Age: 51 yrs Sex: Male : 1965 Arrival Date: 04/17/2016 Time: 00:06 Bed Admit Hold MD: Disposition: 04/17/16 02:06 Hospitalization ordered by Hernando Mcgill for Inpatient Admission. Preliminary diagnosis is Influenza due to unidentified influenza virus. - Bed requested for 4 [place]. - Status is Inpatient Admission. me3 - Condition is Stable. - Problem is an acute exacerbation. - Symptoms have improved. Historical: - Allergies: Latex (Rash); - Home Meds: 1. prednisone 20 mg Oral tab 2 tabs once daily 2. Advair Diskus 500-50 mcg/dose Inhl dsdv 1 puff 2 times per day 3. breo eliptical daily 200-25mcg daily 4. citalopram 40 mg Oral tab 1 tab once daily 5. DuoNeb 0.5 mg-3 mg(2.5 mg base)/3 mL Inhl nebu 3 mL 4 times per day 6. Flonase 50 mcg/actuation Nasal spsn 1 spray 2 times per day 7. folic acid 1 mg Oral tab 1 tab once daily 8. hydroxyzine HCl 25 mg Oral tab 1 tab as needed 9. incruse elipta 62.5mg daily daily 10. levocetirizine 5 mg oral tab 1 tab once daily 11. montelukast 10 mg oral tab 1 tab once daily 12. naltrexone 50 mg oral tab 1 tab once daily has not been taking 13. Nasonex 50 mcg/actuation Nasal spry 2 sprays once daily 14. nicotine 14 mg/24 hr TD pt24 1 patch once daily 15. Patanol 0.1 % Opht drop 1 drop as needed 16. ProAir HFA 90 mcg/actuation inhalation HFAA prn 17. trazodone 50 mg Oral tab as needed 18. triamcinolone acetonide 0.1 % Topical crea as needed as needed 19. Ventolin Rotahaler/Rotacaps Inhl as needed 20. Vitamin B-12 150 mg Oral daily - PMHx: COPD; ETOH abuse; Hypertension; Seasonal Allergies; - PSHx: varicocele ligation; left ear; - Social history: Smoking status: Patient uses tobacco products, heavy tobacco smoker. Patient uses alcohol on a daily basis. No barriers to communication noted, The patient speaks fluent Lao. - Family history: Not pertinent, No immediate family members are acutely ill. - : The pt / caregiver states he / she is not on anticoagulants. Home medication list is obtained from the patient, [employer] import data. - Exposure Risk Screening:: None identified. Vital Signs: 04/17 00:15 BP 127 / 76; Pulse 134; Resp 22; Temp 101.4(TE); Pulse Ox 92% on 3 lpm NC; Weight 68.04 erica kg / 150 lbs (R); Height 5 ft. 11 in. (180.34 cm) (R); Pain 0/10; 00:30 Pulse 118 MON; Pulse Ox 91% ; mlc 00:30 BP 122 / 75 (auto/); mlc 00:45 Pulse 98 MON; Pulse Ox 96% ; mlc 00:45 BP 128 / 58 (auto/); mlc 01:00 Pulse 103 MON; Pulse Ox 93% ; mlc 01:00 BP 126 / 68 (auto/); mlc 01:15 BP 138 / 73 (auto/); mlc 01:15 Pulse 96 MON; Pulse Ox 93% ; mlc 01:29 Pulse 94 MON; Pulse Ox 92% ; mlc 01:30 BP 131 / 74 (auto/); mlc 01:45 BP 102 / 57 (auto/); mlc 01:45 Pulse 92 MON; Pulse Ox 91% ; mlc 02:00 BP 105 / 57 (auto/); mlc 02:14 Pulse 110 MON; Pulse Ox 97% ; mlc 02:15 BP 121 / 64 (auto/); mlc 02:16 Temp 99.2(O); erica 00:15 Body Mass Index 20.92 (68.04 kg, 180.34 cm) erica MDM: 00:17 ECG WITH READING ER PHYS+CARDIAG ordered. EDMS 00:29 -Blood Culture (Adults Only), peripheral from different site, or from device/port/PICC mm11 etc. if present ordered. 00:29 Call Respiratory ordered. mm11 00:29 Police Commissioner/Pulse Ox/q 15 min VS ordered. mm11 00:29 IV Saline Lock ordered. mm11 00:29 Oxygen at 4L/Min NC or Home dosage ordered. mm11 00:29 Rhythm Strip to chart ordered. mm11 00:29 NS 0.9% 1000 ml IV at bolus once ordered. mm11 00:29 Acetaminophen Tablet 650 mg PO once ordered. mm11 00:29 Basic Metabolic Profile Ordered. EDMS 00:29 CBC with Diff Ordered. EDMS 00:29 Cardiac Injury Profile Ordered. EDMS 00:29 Troponin Ordered. EDMS 00:29 Lactic Acid (Anderson tube on ice) Ordered. EDMS 00:29 -Blood Culture Ordered. EDMS 00:30 -Influenza A&B Rapid Antigen - Nose Ordered. EDMS 00:30 Chest, 1 View Ordered. EDMS 00:31 Call Respiratory complete. ml3 00:31 Albuterol-Ipratropium 3 ml Inhalation once ordered. mm11 00:34 -Blood Culture (Adults Only), peripheral from different site, or from device/port/PICC ml3 etc. if present complete. 00:35 BLOOD CULTURES Ordered. EDMS 01:38 RBC MORPH PROF NO CHARGE Ordered. EDMS 01:39 Albuterol-Ipratropium 3 ml Inhalation once ordered. mm11 01:39 Call Respiratory ordered. mm11 01:41 CBC with Diff Reviewed. mm11 01:41 Call Respiratory complete. mlc 01:46 -Influenza A&B Rapid Antigen - Nose Reviewed. mm11 01:46 BED REQUEST+ADM ordered. EDMS 01:57 Admission / Observation Status ordered. EDMS 01:57 REGULAR DIET ordered. EDMS 01:59 RESPIRATORY PANEL Ordered. EDMS 01:59 SPUTUM CULTURE AND GRAM STAIN Ordered. EDMS 02:05 CBC with Diff Reviewed. mm11 02:05 RBC MORPH PROF NO CHARGE Reviewed. mm11 02:39 Financial registration complete. pm4 02:42 [facility] Payment Agreement was scanned into [employer] and attached to record. pm4 07:41 LACTIC ACID LEVEL, LACTATE Ordered. EDMS 08:44 Chest, 2 view PA, Lat Ordered. EDMS 08:46 CBC WITH MANUAL DIFFERENTAL Ordered. EDMS 08:46 COMPLETE COMPHRENSIVE METABOLI Ordered. EDMS 15:03 Admission Orders was scanned into [employer] and attached to record. ar3 19:32 T-Sheet-- Draft Copy was scanned into [employer] and attached to record. klr 04/18 14:39 ECG/EKG was scanned into [employer] and attached to record. gb 14:39 PCR was scanned into [employer] and attached to record. gb 04/19 13:10 Trend VS was scanned into [employer] and attached to record. gb Administered Medications: 04/17 00:39 Drug: Albuterol-Ipratropium 3 ml [ipratropium-albuterol 0.5 mg-3 mg(2.5 mg base)/3 mL jh6 nebulization soln (3 mL)] Route: Inhalation; 01:00 Drug: NS 0.9% 1000 ml [sodium chloride 0.9 % intravenous solution] Route: IV; Rate: mlc bolus; Site: left hand; 01:00 Drug: Acetaminophen 650 mg [acetaminophen 325 mg tablet (2 tabs)] Route: [place] [facility] [place]:06 Drug: Albuterol-Ipratropium 3 ml [ipratropium-albuterol 0.5 mg-3 mg(2.5 mg base)/3 mL jh6 nebulization soln (3 mL)] Route: Inhalation; Signatures: [facility] EDMS Latrice Garay, JAMES RAMIREZ Eryn Castro, Reg Reg gb Bre Love, Assistant Center Manager Unit ml3 Ada Streeter,DIRECTOR OF OPERATIONS FOR THERAPY DIRECTOR OF OPERATIONS FOR THERAPY me3 Marco Lorenzo, DO DO mm11 Pablo, Kira mt4 Kasia Renee, WILDLIFE CONSERVATIONIST WILDLIFE CONSERVATIONIST ar3 Sherron Jane RN RN [facility] [place] Ramonita Gil Paul, Reg Reg pm4 Jose Umana jh6 The chart was reviewed and I authenticate all verbal orders and agree with the evaluation and treatment provided.Corrections: (The following items were deleted from the chart) 07:16 02:26 LACTIC ACID LEVEL, LACTATE ordered. EDSD EDMS Attachments: 02:42 [facility] Payment Agreement pm4 15:03 Admission Orders ar3 19:32 T-Sheet-- Draft Copy r 04/18 14:39 ECG/EKG Chart Complete MTDD
--- NOTE | 2016-04-20 14:30 | EDDOCDS ---
Nurse's Notes [facility] Name: Dontae Serna Age: 51 yrs Sex: Male : 1965 Arrival Date: 04/17/2016 Time: 00:06 Bed Admit Hold Private MD: Diagnosis: Influenza due to unidentified influenza virus Presentation: 04/17 00:14 Presenting complaint: EMS states: pt c/o SOB, SPO2 90% on 2L NC upon EMS arrival. pt mlc states that he is living in a warehouse that has black mold on the ceiling. Adult Sepsis Screening: The patient does not have new or worsening altered mentation. Patient has a respiratory rate of greater than or equal to 22 (1 point). Systolic blood pressure is less than or equal to 100 (1 point). Patient has a qSOFA score of 1- Negative Sepsis Screen. Suicide/Homicide risk assessment- the patient denies having any suicidal and/or homicidal ideations and does not present with any other emotional, behavioral or mental health complaints. Status: Patient is not a program services assistant or dependent. Transition of care: patient was not received from another setting of care. Care prior to arrival: IV initiated. Med neb given. 00:14 Acuity: LAVERNE Level 2 mlc 00:14 Method Of Arrival: Ambulance mlc Triage Assessment: 00:22 General: Appears in no apparent distress, comfortable, Behavior is appropriate for age, mlc cooperative. HIV screening NA for this visit Offered previously. The patient is triaged at the bedside. See Assessment in Nurses Notes section of ED record. Neurological: Level of Consciousness is awake, alert, obeys commands, Oriented to person, place, time. Cardiovascular: Rhythm is sinus tachycardia. Respiratory: Onset: The symptoms/episode began/occurred gradually, Airway is patent Respiratory effort is even, unlabored, Respiratory pattern is regular. Derm: Skin is normal. Historical: - Allergies: Latex (Rash); - Home Meds: 1. prednisone 20 mg Oral tab 2 tabs once daily 2. Advair Diskus 500-50 mcg/dose Inhl dsdv 1 puff 2 times per day 3. breo eliptical daily 200-25mcg daily 4. citalopram 40 mg Oral tab 1 tab once daily 5. DuoNeb 0.5 mg-3 mg(2.5 mg base)/3 mL Inhl nebu 3 mL 4 times per day 6. Flonase 50 mcg/actuation Nasal spsn 1 spray 2 times per day 7. folic acid 1 mg Oral tab 1 tab once daily 8. hydroxyzine HCl 25 mg Oral tab 1 tab as needed 9. incruse elipta 62.5mg daily daily 10. levocetirizine 5 mg oral tab 1 tab once daily 11. montelukast 10 mg oral tab 1 tab once daily 12. naltrexone 50 mg oral tab 1 tab once daily has not been taking 13. Nasonex 50 mcg/actuation Nasal spry 2 sprays once daily 14. nicotine 14 mg/24 hr TD pt24 1 patch once daily 15. Patanol 0.1 % Opht drop 1 drop as needed 16. ProAir HFA 90 mcg/actuation inhalation HFAA prn 17. trazodone 50 mg Oral tab as needed 18. triamcinolone acetonide 0.1 % Topical crea as needed as needed 19. Ventolin Rotahaler/Rotacaps Inhl as needed 20. Vitamin B-12 150 mg Oral daily - PMHx: COPD; ETOH abuse; Hypertension; Seasonal Allergies; - PSHx: varicocele ligation; left ear; - Social history: Smoking status: Patient uses tobacco products, heavy tobacco smoker. Patient uses alcohol on a daily basis. No barriers to communication noted, The patient speaks fluent Macedonian. - Family history: Not pertinent, No immediate family members are acutely ill. - : The pt / caregiver states he / she is not on anticoagulants. Home medication list is obtained from the patient, [employer] import data. - Exposure Risk Screening:: None identified. Screenin:06 Infection Control. ml3 00:30 Screening information is obtained from the patient. Fall risk: No risks identified. mlc Assistance ADL's: requires no assistance with activities of daily living. Abuse/DV Screen: The patient / caregiver reports he/she is: not in a situation that causes fear, pain or injury. Nutritional screening: No deficits noted. Advance Directives: Currently, there is a health care proxy, hermann Turnerer. There is an active DNR order but there is no copy available at this time. There is a living will, but a copy is not available at this time. There is an active Power of Order Filler, hermann Turnerer. home support is adequate. Assessment: 00:30 General: Appears in no apparent distress, comfortable, Behavior is cooperative. Pain: mlc Denies pain. Neurological: Level of Consciousness is awake, alert, obeys commands, Oriented to person, place, time. Cardiovascular: Capillary refill < 3 seconds Heart tones S1 S2 present Rhythm is sinus tachycardia Chest pain is denied. Respiratory: Airway is patent Respiratory effort is even, Respiratory pattern is regular, Breath sounds are coarse in left posterior lower lobe, right posterior middle lobe and right posterior lower lobe. Derm: Skin is normal. 01:16 Reassessment: Patient appears in no apparent distress at this time. IV fluids infusing mlc per order. pt coughing, non-productive. . 02:34 General: Appears in no apparent distress, comfortable, Behavior is cooperative. mlc General: Appears. Pain: Denies pain. Neurological: Level of Consciousness is awake, alert, Oriented to person, place, time. Cardiovascular: Rhythm is sinus rhythm. Respiratory: Airway is patent Respiratory effort is even, unlabored, Respiratory pattern is regular. 02:34 General: report given to Óscar Bear RN Admission Jones nurse, for further documentation ashanti see [facility].. Vital Signs: 00:15 BP 127 / 76; Pulse 134; Resp 22; Temp 101.4(TE); Pulse Ox 92% on 3 lpm NC; Weight 68.04 erica kg (R); Height 5 ft. 11 in. (180.34 cm) (R); Pain 0/10; 00:30 Pulse 118 MON; Pulse Ox 91% ; mlc 00:30 BP 122 / 75 (auto/); mlc 00:45 Pulse 98 MON; Pulse Ox 96% ; mlc 00:45 BP 128 / 58 (auto/); mlc 01:00 Pulse 103 MON; Pulse Ox 93% ; mlc 01:00 BP 126 / 68 (auto/); mlc 01:15 BP 138 / 73 (auto/); mlc 01:15 Pulse 96 MON; Pulse Ox 93% ; mlc 01:29 Pulse 94 MON; Pulse Ox 92% ; mlc 01:30 BP 131 / 74 (auto/); mlc 01:45 BP 102 / 57 (auto/); mlc 01:45 Pulse 92 MON; Pulse Ox 91% ; mlc 02:00 BP 105 / 57 (auto/); mlc 02:14 Pulse 110 MON; Pulse Ox 97% ; mlc 02:15 BP 121 / 64 (auto/); mlc 02:16 Temp 99.2(O); erica 00:15 Body Mass Index 20.92 (68.04 kg, 180.34 cm) erica Vitals: 00:22 Log In Time N/A - ambulance arrival. [facility] ED Course: 00:06 Patient visited by Bre Love, Optical Lens Manufacturing Tech. ml3 00:06 Patient moved to Waiting ml3 00:07 Sherron Jane RN is Primary Nurse. ml3 00:07 Patient moved to 3 ml3 00:15 Pt greeted and oriented to ED. Patient advised of names of staff involved in care, erica location of call la, wait times and NPO status. Patient has correct armband on for positive identification. Placed in gown. Bed in low position. Call light in reach. Side rails up X2. immunochemist on. Pulse ox on. NIBP on. 00:18 Triage Initiated mlc 00:20 EKG done. (by ED staff). Reviewed by Gama Lorenzo DO. erica 00:21 Gama Lorenzo DO is Attending Physician. mm11 00:21 Patient visited by Gama Lorenzo DO. mm11 00:24 Patient visited by Sherron Jane RN. mlc 00:28 Patient visited by Gama Lorenzo DO. mm11 00:30 The patient / caregiver is instructed regarding the plan of care and ED course. mlc 00:30 Maintain field IV. Dressing intact. Good blood return noted. Site clean & dry. Gauge & mlc site: 18g left hand. 01:00 -Influenza A&B Rapid Antigen - Nose Sent. mlc 01:00 Lactic Acid (Anderson tube on ice) Sent. mlc 01:00 -Blood Culture Sent. mlc 01:00 Basic Metabolic Profile Sent. mlc 01:00 CBC with Diff Sent. mlc 01:00 Cardiac Injury Profile Sent. mlc 01:00 Troponin Sent. mlc 01:14 BLOOD CULTURES Sent. mlc 01:18 Patient visited by Sherron Jane RN. mlc 02:05 Patient visited by Gina Streeter PCA. erica 02:05 Hernando Mcgill DO is Hospitalizing Provider. mm11 02:06 Patient moved to Admit Hold ml3 02:17 Patient visited by Gina Streeter PCA. erica 02:17 No procedures done that require assistance. feb 02:18 Notified attending ED physician of Critical lab value. lactic acid of 2.[address] Lorenzo. 02:35 Patient visited by Sherron Jane RN. mlc 02:36 RESPIRATORY PANEL Sent. mlc 02:38 Patient moved to Feb 02:42 [facility] Payment Agreement was scanned into [employer] and attached to record. pm4 02:45 Patient moved to Admit Hold ml3 08:17 Primary Nurse role handed off by Sherron Jane RN ar3 08:38 EKG-ADULT Returned. EDMS 08:39 Chest, 1 View Returned. EDMS 09:47 Chest, 2 view PA, Lat Returned. EDMS 15:03 Admission Orders was scanned into [employer] and attached to record. ar3 19:32 T-Sheet-- Draft Copy was scanned into [employer] and attached to record. r 04/18 14:39 ECG/EKG was scanned into [employer] and attached to record. gb 14:39 PCR was scanned into [employer] and attached to record. gb 04/19 13:10 Trend VS was scanned into [employer] and attached to record. gb Administered Medications: 04/17 00:39 Drug: Albuterol-Ipratropium 3 ml [ipratropium-albuterol 0.5 mg-3 mg(2.5 mg base)/3 mL 6 nebulization soln (3 mL)] Route: Inhalation; 01:00 Drug: NS 0.9% 1000 ml [sodium chloride 0.9 % intravenous solution] Route: IV; Rate: mlc bolus; Site: left hand; 01:00 Drug: Acetaminophen 650 mg [acetaminophen 325 mg tablet (2 tabs)] Route: PO; [facility] 02:06 Drug: Albuterol-Ipratropium 3 ml [ipratropium-albuterol 0.5 mg-3 mg(2.5 mg base)/3 mL 6 nebulization soln (3 mL)] Route: Inhalation; Attachments: 04/19 13:10 Trend VS gb RT: 04/17 00:39 Initial Med Neb Given as ordered Patient was instructed and evaluated on procedure jh6 Patient tolerated procedure well without adverse effect. Respiratory: Airway is patent Respiratory effort is even, unlabored, Respiratory pattern is regular symmetrical, Breath sounds are coarse in right upper lobe, right middle lobe and right lower lobe Breath sounds are diminished in left upper lobe and left lower lobe. 02:06 Subsequent Med Neb Given as ordered Patient was reinforced on procedure Patient jh6 tolerated procedure well without adverse effect. Respiratory: Airway is patent Respiratory effort is even, unlabored, Respiratory pattern is regular symmetrical, Breath sounds are coarse in right upper lobe, left upper lobe, right middle lobe, left lower lobe and right lower lobe Breath sounds with rhonchi in right upper lobe, left upper lobe, right middle lobe, left lower lobe and right lower lobe. 02:13 Respiratory: Airway is patent Respiratory effort is even, unlabored, Respiratory jh6 pattern is regular symmetrical, Breath sounds with rhonchi in left posterior upper lobe, right posterior upper lobe, left posterior lower lobe, right posterior middle lobe and right posterior lower lobe. Order Results: Lab Order: -Blood Culture; SPEC'M 04/17/16 00:54 Test: BLOOD CULTURE; Value: No growth after 24 hours . All specimens observed; Status: F Test: BLOOD CULTURE; Value: for 7 days. Results final at that time.; Status: F Lab Order: Basic Metabolic Profile; SPEC'M 04/17/16 01:32 Test: GLUCOSE, FASTING; Value: 112; Range: 70-105; Abnormal: Above high normal; Units: MG/DL; Status: F Test: BLOOD UREA NITROGEN; Value: 12; Range: 7-18; Units: MG/DL; Status: F Test: CREATININE FOR GFR; Value: 0.50; Range: 0.70-1.30; Abnormal: Below low normal; Units: MG/DL; Status: F Test: GLOMERULAR FILTRATION RATE; Value: > 60.0; Range: >56; Status: F Test: SODIUM LEVEL; Value: 145; Range: 136-145; Units: MEQ/L; Status: F Test: POTASSIUM SERUM; Value: 3.0; Range: 3.5-5.1; Abnormal: Below low normal; Units: MEQ/L; Status: F Test: CHLORIDE LEVEL; Value: 107; Range: 98-107; Units: MEQ/L; Status: F Test: CARBON DIOXIDE LEVEL; Value: 25; Range: 21-32; Units: MEQ/L; Status: F Test: ANION GAP; Value: 13; Range: 8-16; Units: MEQ/L; Status: F Test: CALCIUM LEVEL; Value: 7.4; Range: 8.5-10.1; Abnormal: Below low normal; Units: MG/DL; Status: F Test Note: ; Units are mL/min/1.73 m2 Chronic Kidney Disease Staging per NKF: Stage I & II GFR >=60 Normal to Mildly Decreased Stage III GFR 30-59 Moderately Decreased Stage IV GFR 15-29 Severely Decreased Stage V GFR <15 Very Little GFR Left ESRD GFR <15 on RAC SPECIALIST Lab Order: CBC with Diff; SPEC'M 04/17/16 00:54 Test: WHITE BLOOD COUNT; Value: 11.8; Range: 4.0-10.0; Abnormal: Above high normal; Units: K/mm3; Status: F Test: RED BLOOD COUNT; Value: 3.81; Range: 4.30-6.10; Abnormal: Below low normal; Units: M/mm3; Status: F Test: HEMOGLOBIN; Value: 12.4; Range: 14.0-18.0; Abnormal: Below low normal; Units: g/dl; Status: F Test: HEMATOCRIT; Value: 36.7; Range: 42.0-52.0; Abnormal: Below low normal; Units: %; Status: F Test: MEAN CORPUSCULAR VOLUME; Value: 96.3; Range: 80.0-96.0; Abnormal: Above high normal; Units: fl; Status: F Test: MEAN CORPUSCULAR HEMOGLOBIN; Value: 32.6; Range: 27.0-33.0; Units: pg; Status: F Test: MEAN CORPUSCULAR HGB CONC; Value: 33.9; Range: 32.0-36.5; Units: g/dl; Status: F Test: RED CELL DISTRIBUTION WIDTH; Value: 14.2; Range: 11.5-14.5; Units: %; Status: F Test: PLATELET COUNT, AUTOMATED; Value: 113; Range: 150-450; Abnormal: Below low normal; Units: k/mm3; Status: F Test: NEUTROPHILS %; Value: 75.5; Range: 36.0-66.0; Abnormal: Above high normal; Units: %; Status: F Test: LYMPH %; Value: 17.5; Range: 24.0-44.0; Abnormal: Below low normal; Units: %; Status: F Test: MONO %; Value: 5.0; Range: 0.0-5.0; Units: %; Status: F Test: EOS %; Value: 0.3; Range: 0.0-3.0; Units: %; Status: F Test: BASO %; Value: 0.1; Range: 0.0-1.0; Units: %; Status: F Test: LARGE UNSTAINED CELL %; Value: 1.5; Range: 0.0-4.0; Units: %; Status: F Test: NEUTROPHILS #; Value: 8.9; Range: 1.8-7.7; Abnormal: Above high normal; Units: K/mm3; Status: F Test: LYMPH #; Value: 2.3; Range: 1.5-4.5; Units: K/mm3; Status: F Test: MONO #; Value: 0.6; Range: 0.0-0.8; Units: K/mm3; Status: F Test: EOS #; Value: 0.0; Range: 0.0-0.50; Units: K/mm3; Status: F Test: BASO #; Value: 0.0; Range: 0.0-0.2; Units: K/mm3; Status: F Test: LARGE UNSTAINED CELL #; Value: 0.2; Range: 0.0-0.4; Units: K/mm3; Status: F Lab Order: Cardiac Injury Profile; [facility]' 04/17/16 01:32 Test: CPK CREATINE PHOSPHOKINASE; Value: 68; Range: 39-308; Units: U/L; Status: F Test: CK-MB VALUE MASS; Value: 1.0; Range: 0.0-3.6; Units: NG/ML; Status: F Test: MB/CK RELATIVE INDEX; Value: 1.47; Range: < OR =4; Status: F Test Note: ; DIAGNOSIS CRITERIA MMB ng/ml Relative Index (RI) NON-AMI < or = 5 N/A ANDERSON ZONE > 5 < or = 4 AMI > 5 > 4 Lab Order: Troponin; SPEC' 04/17/16 01:32 Test: TROPONIN I; Value: < 0.02; Range: < 0.10; Units: NG/ML; Status: F Test Note: ; Troponin I Reference Interval for [employer] LOCI: 99th Percentile= 0.00-0.045 ng/ml Risk Stratification: <= 0.10 ng/ml Decreased Risk for Adverse Clinical Events. 0.10-1.50 ng/ml Increased Risk for Adverse Clinical Events. Evaluation of additional criterion and/or repeat testing in 2-6 hours is suggested to rule out myocardial damage. >= 1.50 ng/ml Indicative of Myocardial Injury. Lab Order: Lactic Acid (Anderson tube on ice); SPEC04/17/16 01:32 Test: LACTIC ACID SEPSIS PROTOCOL; Value: 2.1; Range: 0.4-2.0; Abnormal: Above upper panic limits; Units: MMOL/L; Status: F Lab Order: -Influenza A&B Rapid Antigen - Nose; 04/17/16 00:54 Test: INFLUENZA A RAPID SCR by ICA; Value: INFLUENZA A RESULTS NEGATIVE; Status: F Test: INFLUENZA A RAPID SCR by ICA; Value: Comments:; Status: F Test: INFLUENZA B RAPID SCR by ICA; Value: INFLUENZA B RESULTS NEGATIVE; Status: F Test Note: ; The Influenza test is a direct rapid immunoassay for the qualitative detection of Influenza viral antigen. Cell culture (Viral Culture) testing should be considered to confirm NEGATIVE results and to assist in detecting other viruses that can provide similar clinical symptoms. Please contact the lab within 24 hours ([phone]) if confirmatory testing is desired. Lab Order: BLOOD CULTURES; 04/17/16 01:11 Test: BLOOD CULTURE; Value: No growth after 24 hours . All specimens observed; Status: F Test: BLOOD CULTURE; Value: for 7 days. Results final at that time.; Status: F Lab Order: RBC MORPH PROF NO CHARGE; SPEC04/17/16 00:54 Test: PLATELET ESTIMATE; Value: DECREASED; Range: NORMAL; Status: F Lab Order: RESPIRATORY PANEL; SPEC04/17/16 03:30 Test: RESPIRATORY PANEL; Value: RP PANEL RESULT NEGATIVE by PCR; Status: F Test: RESPIRATORY PANEL; Value: Comments:; Status: F Test Note: ; This respiratory PCR panel detects Influenza A H1, H3 and 2009 H1 viruses, Influenza B virus, Respiratory syncytial virus, Human metapneumovirus, Parainfluenza virus 1, 2, 3 and 4, Adenovirus, Rhinovirus/Enterovirus, Coronavirus HKU1, NL63, OC43 and 229E, Bordetella pertussis, Mycoplasma pneumoniae and Chlamydia pneumoniae. Lab Order: LACTIC ACID LEVEL, LACTATE; SPEC'M 04/17/16 09:08 Test: LACTIC ACID SEPSIS PROTOCOL; Value: 1.7; Range: 0.4-2.0; Units: MMOL/L; Status: F Lab Order: CBC WITH MANUAL DIFFERENTAL; SPEC'M 04/17/16 09:08 Test: WHITE BLOOD COUNT; Value: 10.5; Range: 4.0-10.0; Abnormal: Above high normal; Units: K/mm3; Status: F Test: RED BLOOD COUNT; Value: 3.67; Range: 4.30-6.10; Abnormal: Below low normal; Units: M/mm3; Status: F Test: HEMOGLOBIN; Value: 11.5; Range: 14.0-18.0; Abnormal: Below low normal; Units: g/dl; Status: F Test: HEMATOCRIT; Value: 35.3; Range: 42.0-52.0; Abnormal: Below low normal; Units: %; Status: F Test: MEAN CORPUSCULAR VOLUME; Value: 96.2; Range: 80.0-96.0; Abnormal: Above high normal; Units: fl; Status: F Test: MEAN CORPUSCULAR HEMOGLOBIN; Value: 31.3; Range: 27.0-33.0; Units: pg; Status: F Test: MEAN CORPUSCULAR HGB CONC; Value: 32.6; Range: 32.0-36.5; Units: g/dl; Status: F Test: RED CELL DISTRIBUTION WIDTH; Value: 14.4; Range: 11.5-14.5; Units: %; Status: F Test: PLATELET COUNT, AUTOMATED MD; Value: 78; Range: 150-450; Abnormal: Below low normal; Units: K/mm3; Status: F Test: NEUTROPHILS; Value: 89; Range: 35-75; Abnormal: Above high normal; Units: %; Status: F Test: LYMPHOCYTES; Value: 6; Range: 16-52; Abnormal: Below low normal; Units: %; Status: F Test: MONOCYTES; Value: 2; Range: 0-8; Units: %; Status: F Test: BASOPHILS; Value: 1; Range: 0-4; Units: %; Status: F Test: ATYPICAL LYMPH; Value: 2; Range: 0-5; Units: %; Status: F Test: RBC MORPHOLOGY; Value: NORMAL; Status: F Test: PLATELET ESTIMATE; Value: DECREASED; Range: NORMAL; Status: F Test Note: ; NO PLAT CLUMPING NOTED ON SLIDE. Lab Order: COMPLETE COMPHRENSIVE METABOLI; SPEC'M 04/17/16 09:08 Test: GLUCOSE, FASTING; Value: 118; Range: 70-105; Abnormal: Above high normal; Units: MG/DL; Status: F Test: BLOOD UREA NITROGEN; Value: 7; Range: 7-18; Units: MG/DL; Status: F Test: CREATININE FOR GFR; Value: 0.41; Range: 0.70-1.30; Abnormal: Below low normal; Units: MG/DL; Status: F Test: GLOMERULAR FILTRATION RATE; Value: > 60.0; Range: >56; Status: F Test: SODIUM LEVEL; Value: 141; Range: 136-145; Units: MEQ/L; Status: F Test: POTASSIUM SERUM; Value: 3.3; Range: 3.5-5.1; Abnormal: Below low normal; Units: MEQ/L; Status: F Test: CHLORIDE LEVEL; Value: 105; Range: 98-107; Units: MEQ/L; Status: F Test: CARBON DIOXIDE LEVEL; Value: 25; Range: 21-32; Units: MEQ/L; Status: F Test: ANION GAP; Value: 11; Range: 8-16; Units: MEQ/L; Status: F Test: CALCIUM LEVEL; Value: 7.6; Range: 8.5-10.1; Abnormal: Below low normal; Units: MG/DL; Status: F Test: AST/SGOT; Value: 43; Range: 15-37; Abnormal: Above high normal; Units: U/L; Status: F Test: ALT/SGPT; Value: 66; Range: 12-78; Units: U/L; Status: F Test: ALKALINE PHOSPHATASE; Value: 57; Range: 45-117; Units: U/L; Status: F Test: BILIRUBIN,TOTAL; Value: 0.8; Range: 0.2-1.0; Units: MG/DL; Status: F Test: TOTAL PROTEIN; Value: 5.6; Range: 6.4-8.2; Abnormal: Below low normal; Units: GM/DL; Status: F Test: ALBUMIN; Value: 3.1; Range: 3.2-5.2; Abnormal: Below low normal; Units: GM/DL; Status: F Test: ALBUMIN/GLOBULIN RATIO; Value: 1.24; Range: 1.00-1.93; Status: F Test Note: ; Units are mL/min/1.73 m2 Chronic Kidney Disease Staging per NKF: Stage I & II GFR >=60 Normal to Mildly Decreased Stage III GFR 30-59 Moderately Decreased Stage IV GFR 15-29 Severely Decreased Stage V GFR <15 Very Little GFR Left ESRD GFR <15 on RAC SPECIALIST Radiology Order: EKG-ADULT Test: EKG-ADULT REASON FOR EXAMINATION: Shortness of Breath; Stationary ECG Study; [facility] - ED; ; Test Date: 2016-04-17; Pat Name: DONTAE SERNA Department:; Room: [place] [address]; Gender: M Investor Relations Coordinator: darell; : 1965 Requested By: GAMA Frost; Order Number: [id number] Reading MD: Stephan Myers; Measurements; Intervals [place]; Rate: 115 P: 36; WI: 138 QRS: 62; QRSD: 148 T: -33; QT: 374; QTc: 518; Interpretive Statements; SINUS TACHYCARDIA; LEFT BUNDLE BRANCH BLOCK; NEW SINCE 02/09/16 BUT SIMILAR TO 12/17/15; Electronically Signed On 04-17-2016 8:33:51 EST by Stephan Myers; Radiology Order: Chest, 1 View Test: Chest, 1 View REASON FOR EXAMINATION: Cough; Clinical: Cough .; ; Comparison: 04/11/2016 .; ; Findings:; The mediastinum and cardiac silhouette are stable and within normal limits for; portable technique. The lung garcia are clear without acute consolidation,; effusion, or pneumothorax. Skeletal structures are intact.; ; Impression:; Normal portable chest x-ray; ; ; Signed by; Flex Forrest MD 04/17/2016 08:23 A; Radiology Order: Chest, 2 view PA, Lat Test: Chest, 2 view PA, Lat REASON FOR EXAMINATION: SOB, hypoxia; Clinical: Hypoxia and shortness of breath.; ; Comparison: 04/17/2016 at 12:36 a.m.; ; Findings:; Mediastinum and cardiac silhouette are within normal limits and stable. Lung; garcia demonstrate chronic interstitial changes with coarsened interstitial; markings and subtle lower lobe opacities suggested. No effusion. No; pneumothorax. Skeletal structures intact.; ; Impression:; Coarsened markings and subtle lower lobe opacities suggest bronchitis and; possible basilar atelectasis/early infiltrate.; ; ; Signed by; Flex Forrest MD 04/17/2016 09:23 A; Outcome: 02:06 Decision to Hospitalize by Provider. mm11 02:33 Admission hand-off: Report called to Óscar Bear RN admission Jones Nurse. feb 28 11:55 Property sent home with patient. [facility] 11:57 Discharge Assessment: patient administered narcotics - yes. Patient was admitted to the [facility] hospital or transferred to another facility. Condition: stable. No special radiology studies were completed. 13:27 The following High Risk Discharge criteria are identified: None. Admitted to Med/Surg [facility] accompanied by nurse, via stretcher, with oxygen, with chart. 13:28 Patient left the ED. [facility] Signatures: Dispatcher [employer] EDMS Maday Hunt RN RN Eryn Magallanes, Reg Reg gb Bre Love, Optical Lens Manufacturing Tech Unit ml3 Ada Streeter,VACUUM CLEANER REPAIR PERSON VACUUM CLEANER REPAIR PERSON ri3 Gama Lorenzo, DO mm11 Kaisa Renee, RAC SPECIALIST RAC SPECIALIST ar3 Gina Streeter, RAC SPECIALIST RAC SPECIALIST Jose Amaya jh6 Sherron Jane RN RN Ramonita Wilson Paul, Reg Reg pm4 Corrections: (The following items were deleted from the chart) 04/17 01:17 00:30 Reassessment: Patient appears in no apparent distress at this time. IV fluids mlc infusing per order. pt coughing, non-productive. . mlc 04/18 12:34 11:57 The following High Risk Discharge criteria are identified: None. Admitted to PCU [facility] accompanied by nurse, via stretcher, on monitor, with chart, Other with Nadia Oakes RN ACLS [facility] Chart Complete MTDD
[2016-04-20] MEDS: methylPREDNISolone INJ 40 MG/1 ML VIAL (J2920) IV SCH (20:13)
[2016-04-20 21:00] VITALS: BP 153/87
[2016-04-20 22:00] VITALS: BP 147/78
[2016-04-21] MEDS: LevoFLOXacin 500 MG TABLET PO SCH (04:59)
[2016-04-21 05:52] LABS: MEAN CORPUSCULAR HEMOGLOBIN 31.6 pg (27.0-33.0); MEAN CORPUSCULAR HGB CONC 33.2 g/dl (32.0-36.5); MEAN CORPUSCULAR VOLUME 95.4 fl (80.0-96.0); RED CELL DISTRIBUTION WIDTH 13.5 % (11.5-14.5); WHITE BLOOD COUNT 7.9 K/mm3 (4.0-10.0)
[2016-04-21 06:00] VITALS: BP 158/77
[2016-04-21 06:21] LABS: ALBUMIN 2.8 GM/DL (3.2-5.2); ALBUMIN/GLOBULIN RATIO 0.88 (1.00-1.93); ALKALINE PHOSPHATASE 45 U/L (45-117); ALT/SGPT 37 U/L (12-78); ANION GAP 9 MEQ/L (8-16); AST/SGOT 12 U/L (15-37); BILIRUBIN,TOTAL 0.4 MG/DL (0.2-1.0); BLOOD UREA NITROGEN 12 MG/DL (7-18); CALCIUM LEVEL 8.6 MG/DL (8.5-10.1); CARBON DIOXIDE LEVEL 28 MEQ/L (21-32); CHLORIDE LEVEL 100 MEQ/L (98-107); CREATININE FOR GFR 0.46 MG/DL (0.70-1.30); GLOMERULAR FILTRATION RATE > 60.0 (>56); GLUCOSE, FASTING 128 MG/DL (70-105); POTASSIUM SERUM 3.8 MEQ/L (3.5-5.1); SODIUM LEVEL 137 MEQ/L (136-145)
[2016-04-21 08:00] VITALS: BP 158/77
[2016-04-21] MEDS: IPRATROPIUM 0.5MG/ALBUTEROL 2.5MG INH SOL UD 3ML (DUONEB)(J7620) NEB SCH (08:00)
[2016-04-21] MEDS: ADVAIR DISKUS 500/50 INH PWD INH SCH (09:01)
[2016-04-21] MEDS: ENOXAPARIN 40 MG/0.4 ML SYRINGE (J1650) SC SCH (09:23)
[2016-04-21] MEDS: methylPREDNISolone INJ 40 MG/1 ML VIAL (J2920) IV SCH (09:23)
[2016-04-21] MEDS: CYANOCOBALAMIN 250 MCG TABLET PO SCH (09:23)
[2016-04-21] MEDS: NICOTINE 14 MG/24 HR TRANSDERMAL TD SCH (09:23)
[2016-04-21] MEDS: CETIRIZINE (ZyrTEC) 10 MG TAB PO SCH (09:24)
[2016-04-21] MEDS: busPIRone 5 MG TAB PO SCH (09:24)
[2016-04-21] MEDS: FOLIC ACID 1 MG TAB PO SCH (09:24)
[2016-04-21] MEDS: CitaloPRAM (CeleXA) 20 MG TAB PO SCH (09:24)
[2016-04-21 09:25] VITALS: BP 156/78
[2016-04-21] MEDS: MULTIVITAMINS/MINERALS THERAP 1 TAB PO SCH (09:25)
[2016-04-21] MEDS: MONTELUKAST 10 MG TAB PO SCH (09:25)
[2016-04-21] MEDS: LISINOPRIL 5 MG TAB PO SCH (09:25)
[2016-04-21] MEDS: NALTREXONE 50 MG TAB PO SCH (09:25)
[2016-04-21] MEDS: THIAMINE 100 MG TAB PO SCH (09:26)
[2016-04-21] MEDS: FLUTICASONE PROP 0.05% NASAL SPRAY 16 GM (FLONASE) SCH (09:27)
[2016-04-21] MEDS: CLORAZEPATE 3.75 MG TAB PO SCH (10:00)
[2016-04-21] MEDS ORDERED: CLOR37TA PO (11:40)
[2016-04-21] MEDS ORDERED: LEVA500T PO (11:40)
[2016-04-21] MEDS ORDERED: THIA100TA PO (11:40)
== END 2016-04-21 14:58 | disposition home or self-care (01) | DRG 140 ==
LOC: M ED 00:06 → M ED INP 01:53 → M MSPAV 04-18 13:44 → OBSVTOIN 04-18 16:38
PROVIDERS: ADMIT Hospitalist; ATTEND Family Medicine
DX: J44.1 Chronic obstructive pulmonary disease with (acute) exacerbation (principal); J18.9 Pneumonia, unspecified organism; E53.8 Deficiency of other specified B group vitamins; F10.10 Alcohol abuse, uncomplicated; I10 Essential (primary) hypertension; J30.9 Allergic rhinitis, unspecified; F32.9 Major depressive disorder, single episode, unspecified; F17.210 Nicotine dependence, cigarettes, uncomplicated; Z79.52 Long term (current) use of systemic steroids; Z79.51 Long term (current) use of inhaled steroids; Z79.899 Other long term (current) drug therapy; E87.6 Hypokalemia; Z59.0 Homelessness

== ENCOUNTER 2016-06-15 23:19 | Emergency (ER) | payer OTHER ==
[~2016-06-15] VITALS: Ht 175.3 cm; Wt 73.5 kg
[~2016-06-15 23:19] MED LIST changes: +CLOR37TA PO; +CYAN25TA PO; +INCR1INH INH; +LEVA500T PO; +MOME50SP; +THIA100TA PO; +TRAZ100T4 PO
[2016-06-15] MEDS: IPRATROPIUM 0.5MG/ALBUTEROL 2.5MG INH SOL UD 3ML (DUONEB)(J7620) NEB PRN ×2 (23:55→23:56)
[2016-06-15 23:56] VITALS: O2SAT 98
[2016-06-16] MEDS ORDERED: methylPREDNISolone INJ 125 MG/2 ML VIAL (J2930) IV ONE
[2016-06-16 00:01] LABS: VENOUS PARTIAL PRESSURE CO2 34.8 mmHg (38.0-50.0); VENOUS PARTIAL PRESSURE O2 151.1 mmHg (30.0-50.0); VENOUS TOTAL CO2 27.8 MEQ/L (24.0-28.0)
[2016-06-16 00:16] LABS: BASO % 0.3 % (0.0-1.0); EOS % 0.3 % (0.0-3.0); LARGE UNSTAINED CELL # 0.2 K/mm3 (0.0-0.4); MEAN CORPUSCULAR HEMOGLOBIN 31.8 pg (27.0-33.0); MEAN CORPUSCULAR HGB CONC 33.9 g/dl (32.0-36.5); MEAN CORPUSCULAR VOLUME 93.9 fl (80.0-96.0); MONO # 0.4 K/mm3 (0.0-0.8); MONO % 6.1 % (0.0-5.0); NEUTROPHILS # 2.7 K/mm3 (1.8-7.7); NEUTROPHILS % 44.3 % (36.0-66.0); PLATELET COUNT, AUTOMATED 159 k/mm3 (150-450); WHITE BLOOD COUNT 6.2 K/mm3 (4.0-10.0)
[2016-06-16 00:27] LABS: ANION GAP 14 MEQ/L (8-16); BLOOD UREA NITROGEN 9 MG/DL (7-18); CALCIUM LEVEL 8.7 MG/DL (8.5-10.1); CARBON DIOXIDE LEVEL 27 MEQ/L (21-32); CHLORIDE LEVEL 100 MEQ/L (98-107); CREATININE FOR GFR 0.62 MG/DL (0.70-1.30); GLOMERULAR FILTRATION RATE > 60.0 (>56); GLUCOSE, FASTING 100 MG/DL (70-105); POTASSIUM SERUM 3.6 MEQ/L (3.5-5.1); SODIUM LEVEL 141 MEQ/L (136-145)
[2016-06-16] MEDS: IPRATROPIUM 0.5MG/ALBUTEROL 2.5MG INH SOL UD 3ML (DUONEB)(J7620) NEB PRN (00:35)
--- NOTE | 2016-06-16 01:10 | REPUSA ---
CLINICAL HISTORY: Neck pain. TECHNIQUE: Multiple axial images were obtained through the cervical spine. Images were also reconstru cted in coronal and sagittal planes. The study was performed without IV contrast. COMMENTS: There is no fracture or spondylolisthesis visualized. The paraspinal soft tissues are unremarkable. T here are no lytic or blastic lesions. Straightening of cervical lordosis is seen, suggesting muscular spasm. There is evidence of minimal m ultilevel disk disease, demonstrated by minimal osteophytosis and endplate sclerosis. No significant disk herniation is noted at any level. Canal and foramina remain patent. IMPRESSION: 1. No fracture or spondylolisthesis. 2. Straightening of cervical lordosis is seen, suggesting muscular spasm. 3. Minimal multilevel spondylosis. Thank you for your kind referral of this patient.
--- NOTE | 2016-06-16 01:10 | REPUSA ---
CLINICAL HISTORY: Head trauma. TECHNIQUE: Multiple axial brain CT scan sections were obtained from base to vertex without contrast a dministration. COMMENTS: There is no evidence of skull fracture. The study shows normal configuration of sella turcica. There are no intra or extra-axial collections. There is no mass effect or midline shift. There is no evidence of hematoma formation. No hydrocephal us is present. No abnormal calcifications are noted. No significant abnormalities are seen either in the posterior fossa or supratentorial compartment. Chronic mucosal inflammatory changes in the left maxillary sinus. The remaining sinuses and mastoid air cells are patent. IMPRESSION: Chronic mucosal inflammatory changes of the left maxillary sinus. No evidence of acute intracranial pathology. No intracranial hemorrhage or skull fracture. No change from the prior exam on 09/15/2015. Thank you for your kind referral of this patient.
--- NOTE | 2016-06-16 01:20 | REPUSA ---
HISTORY: Trauma. COMPARISON: Not provided. TECHNIQUE: Multiple thin section helically-acquired axially-displayed and helically acquired coronall y displayed computed tomographic images of the face are obtained from the mandible through the fronta l sinuses, with images obtained at soft tissue and bone window. 2D reformatted images were performed. FINDINGS: Normal bony mineralization. No fractures. Normal orbits. Chronic mucosal inflammatory changes of the left maxillary sinus. Normal oral and nasal cavities. Normal infratemporal fossa and deep parapharyngeal spaces with normal muscles of mastication. Normal parotid and submandibular glands. IMPRESSION: No fracture. Thank you for your kind referral of this patient
--- NOTE | 2016-06-16 01:30 | REPUSA ---
CLINICAL HISTORY: Chest pain, cough. TECHNIQUE: Multiple axial CT images were obtained through the thorax without IV contrast material. COMMENTS: Mild emphysema. Mild chronic bronchitis. There is no evidence of pleural or parenchymal-based mass. There are no pleural effusions. There is n o evidence of hilar or mediastinal lymphadenopathy. The heart and great vessels are within normal perez its. The visualized portions of the liver are of uniform attenuation without mass or defect. There is no i ntra or extrahepatic biliary ductal dilatation. The spleen is unremarkable. The visualized pancreas i s of normal contour and attenuation characteristics. There is no evidence of adrenal mass. The visual ized portions of the kidneys present no abnormalities. The bony structures are free of lytic or blastic lesions. IMPRESSION: Mild emphysema. Mild chronic bronchitis. No evidence of acute thoracic pathology. Thank you for your kind referral of this patient.
[2016-06-16] MEDS ORDERED: PRED20TA PO (02:01)
[2016-06-16 02:42] VITALS: BP 122/74
--- NOTE | 2016-06-17 20:00 | ECGEPIP ---
Stationary ECG Study [facility] - ED Test Date: 2016-06-15 Pat Name: GORDON SERNA Department: Room: - Gender: M Solution Advisor: abilio : 1965 Requested By: GAMA Frost Order Number: [id number] Reading MD: Esther Harvey Measurements Intervals [place] Rate: 104 P: 53 MI: 174 QRS: 67 QRSD: 150 T: 27 QT: 382 QTc: 503 Interpretive Statements SINUS TACHYCARDIA LEFT BUNDLE BRANCH BLOCK SIMILAR 04/17/16 Electronically Signed On 06-17-2016 20:00:02 EDT by Esther Harvey
== END 2016-06-16 02:58 | disposition home or self-care (01) ==
LOC: M ED 23:52
DX: J44.1 Chronic obstructive pulmonary disease with (acute) exacerbation (principal); I44.7 Left bundle-branch block, unspecified; F17.210 Nicotine dependence, cigarettes, uncomplicated; Z91.040 Latex allergy status; Z79.899 Other long term (current) drug therapy; Z79.51 Long term (current) use of inhaled steroids

== ENCOUNTER 2016-06-18 07:40 | Emergency (ER) | payer OTHER ==
[~2016-06-18] VITALS: Ht 177.8 cm; Wt 68.5 kg
[2016-06-18] MEDS ORDERED: methylPREDNISolone INJ 125 MG/2 ML VIAL (J2930) IV ONE (08:00)
[2016-06-18] MEDS ORDERED: ADV500INH (08:08)
[2016-06-18] MEDS ORDERED: VITA50TA (08:08)
[2016-06-18] MEDS: IPRATROPIUM 0.5MG/ALBUTEROL 2.5MG INH SOL UD 3ML (DUONEB)(J7620) NEB PRN ×3 (08:15→09:12)
--- NOTE | 2016-06-18 08:22 | REP ---
Portable chest, single AP view, patient sitting: Comparison is 04/17/2016. The lung garcia are clear. The cardiac size is normal. The radha, mediastinum, and bony thorax are unremarkable. Impression: Negative portable chest. Signed by Stalin Pantoja MD 06/18/2016 08:14 A
[2016-06-18 08:35] LABS: ABG BASE EXCESS 3.8 (-2.0-2.0); ABG HCO3 28.3 MEQ/L (22.0-26.0); ABG PARTIAL PRESSURE CO2 42.6 mmHg (35.0-45.0); ABG PARTIAL PRESSURE O2 93.5 mmHg (75.0-100.0); ABG STANDARD HCO3 27.8 MEQ/L (22.0-26.0); ABG TOTAL CO2 29.7 MEQ/L (22.0-29.0); ABG pH (ARTERIAL) 7.441 UNITS (7.350-7.450)
[2016-06-18 08:38] LABS: BASO % 0.1 % (0.0-1.0); EOS % 0.1 % (0.0-3.0); LARGE UNSTAINED CELL # 0.2 K/mm3 (0.0-0.4); LARGE UNSTAINED CELL % 2.6 % (0.0-4.0); LYMPH # 2.8 K/mm3 (1.5-4.5); MEAN CORPUSCULAR HEMOGLOBIN 32.7 pg (27.0-33.0); MEAN CORPUSCULAR HGB CONC 34.1 g/dl (32.0-36.5); MEAN CORPUSCULAR VOLUME 95.9 fl (80.0-96.0); MONO # 0.4 K/mm3 (0.0-0.8); MONO % 5.9 % (0.0-5.0); NEUTROPHILS % 47.2 % (36.0-66.0); PLATELET COUNT, AUTOMATED 143 k/mm3 (150-450); WHITE BLOOD COUNT 6.3 K/mm3 (4.0-10.0)
--- NOTE | 2016-06-18 08:54 | ECGEPIP ---
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
[2016-06-18 09:06] LABS: ALBUMIN 3.8 GM/DL (3.2-5.2); ALKALINE PHOSPHATASE 58 U/L (45-117); ALT/SGPT 84 U/L (12-78); AST/SGOT 118 U/L (15-37); BILIRUBIN,DIRECT 0.1 MG/DL (0.0-0.2); BILIRUBIN,TOTAL 0.4 MG/DL (0.2-1.0); BLOOD UREA NITROGEN 11 MG/DL (7-18); CALCIUM LEVEL 7.8 MG/DL (8.5-10.1); CARBON DIOXIDE LEVEL 31 MEQ/L (21-32); CHLORIDE LEVEL 100 MEQ/L (98-107); CREATININE FOR GFR 0.66 MG/DL (0.70-1.30); GLUCOSE, FASTING 122 MG/DL (70-105); POTASSIUM SERUM 3.6 MEQ/L (3.5-5.1); SODIUM LEVEL 140 MEQ/L (136-145); TOTAL PROTEIN 7.1 GM/DL (6.4-8.2)
[2016-06-18 09:09] LABS: ALBUMIN/GLOBULIN RATIO 1.15 (1.00-1.93)
[2016-06-18 09:10] LABS: ANION GAP 9 MEQ/L (8-16)
[2016-06-18] MEDS ORDERED: NS 1,000 ML IV SCH (09:43)
[2016-06-18 11:04] VITALS: BP 124/71
== END 2016-06-18 11:43 | disposition home or self-care (01) ==
LOC: EDBD 07:40 → M ED 08:14
DX: J44.9 Chronic obstructive pulmonary disease, unspecified (principal); F10.120 Alcohol abuse with intoxication, uncomplicated; R94.31 Abnormal electrocardiogram [ECG] [EKG]; J45.909 Unspecified asthma, uncomplicated; F32.9 Major depressive disorder, single episode, unspecified; F41.9 Anxiety disorder, unspecified; Z99.81 Dependence on supplemental oxygen; F17.200 Nicotine dependence, unspecified, uncomplicated; Z91.040 Latex allergy status; Z79.899 Other long term (current) drug therapy; Z79.51 Long term (current) use of inhaled steroids

== ENCOUNTER 2016-07-09 22:41 | Emergency (ER) | payer OTHER ==
[~2016-07-09] VITALS: Ht 180.3 cm; Wt 68.0 kg
[~2016-07-09 22:41] MED LIST changes: +ADV500INH; +VITA50TA
[2016-07-09] MEDS: IPRATROPIUM 0.5MG/ALBUTEROL 2.5MG INH SOL UD 3ML (DUONEB)(J7620) NEB PRN ×2 (23:58→23:59)
[2016-07-10] MEDS: IPRATROPIUM 0.5MG/ALBUTEROL 2.5MG INH SOL UD 3ML (DUONEB)(J7620) NEB PRN
[2016-07-10] MEDS ORDERED: methylPREDNISolone INJ 125 MG/2 ML VIAL (J2930) IV ONE
[2016-07-10 00:33] LABS: BASO % 0.6 % (0.0-1.0); EOS # 0.1 K/mm3 (0.0-0.50); EOS % 2.2 % (0.0-3.0); LARGE UNSTAINED CELL # 0.2 K/mm3 (0.0-0.4); LARGE UNSTAINED CELL % 2.9 % (0.0-4.0); LYMPH # 1.9 K/mm3 (1.5-4.5); LYMPH % 32.1 % (24.0-44.0); MEAN CORPUSCULAR HEMOGLOBIN 33.2 pg (27.0-33.0); MEAN CORPUSCULAR VOLUME 97.7 fl (80.0-96.0); MONO # 0.3 K/mm3 (0.0-0.8); MONO % 6.3 % (0.0-5.0); NEUTROPHILS # 3.1 K/mm3 (1.8-7.7); PLATELET COUNT, AUTOMATED 156 k/mm3 (150-450); RED CELL DISTRIBUTION WIDTH 14.4 % (11.5-14.5); WHITE BLOOD COUNT 5.5 K/mm3 (4.0-10.0)
[2016-07-10 00:55] LABS: VENOUS BASE EXCESS 2.5 (-2.0-2.0); VENOUS O2 SATURATION 98.9 % (60.0-80.0); VENOUS PARTIAL PRESSURE CO2 45.2 mmHg (38.0-50.0); VENOUS PARTIAL PRESSURE O2 162.8 mmHg (30.0-50.0); VENOUS STANDARD HCO3 26.7 MEQ/L; VENOUS TOTAL CO2 29.2 MEQ/L (24.0-28.0)
[2016-07-10 00:59] LABS: ANION GAP 10 MEQ/L (8-16); BLOOD UREA NITROGEN 12 MG/DL (7-18); CALCIUM LEVEL 8.4 MG/DL (8.5-10.1); CARBON DIOXIDE LEVEL 29 MEQ/L (21-32); CHLORIDE LEVEL 101 MEQ/L (98-107); CREATININE FOR GFR 0.67 MG/DL (0.70-1.30); GLOMERULAR FILTRATION RATE > 60.0 (>56); GLUCOSE, FASTING 97 MG/DL (70-105); POTASSIUM SERUM 4.1 MEQ/L (3.5-5.1); SODIUM LEVEL 140 MEQ/L (136-145)
[2016-07-10] MEDS ORDERED: METAL LOCK LOOP XX ONE (02:09)
[2016-07-10] MEDS: IPRATROPIUM 0.5MG/ALBUTEROL 2.5MG INH SOL UD 3ML (DUONEB)(J7620) NEB SCH ×3 (02:31→02:34)
[2016-07-10 03:43] VITALS: BP 118/67
[2016-07-10] MEDS ORDERED: PRED20TA PO (03:45)
--- NOTE | 2016-07-10 11:07 | ECGEPIP ---
Stationary ECG Study [facility] Test Date: 2016-07-10 Pat Name: GORDON SERNA Department: Room: - Gender: M Concierge Manager: alondra : 1965 Requested By: GAMA Frost Order Number: [id number] Reading MD: Robb Rodriguez Measurements Intervals [place] Rate: 92 P: 69 [place]: 157 QRS: 61 QRSD: 124 T: 70 QT: 375 QTc: 464 Interpretive Statements SINUS RHYTHM MODERATE INTRAVENTRICULAR CONDUCTION DELAY Low limb lead voltages. Mild ST elevation leads 2, 3, aVF, consider acute inferior wall myocardial infarct. Nonspecific T-wave abnormalities. Electronically Signed On 07-10-2016 11:07:02 EDT by Robb Rodriguez
--- NOTE | 2016-07-10 14:47 | REP ---
CHEST, TWO VIEWS: There is no evidence of acute infiltrate. No pleural effusion is seen. The heart is normal in size. The mediastinal silhouette is unremarkable. The visualized osseous structures are intact. IMPRESSION: No acute pulmonary disease. Signed by Stalin Anderson MD 07/10/2016 07:58 P
== END 2016-07-10 04:00 | disposition home or self-care (01) ==
LOC: EDBD 22:41 → M ED 23:32
DX: J44.1 Chronic obstructive pulmonary disease with (acute) exacerbation (principal); F17.200 Nicotine dependence, unspecified, uncomplicated; Z79.51 Long term (current) use of inhaled steroids; Z79.899 Other long term (current) drug therapy; Z91.040 Latex allergy status

== ENCOUNTER 2016-07-28 04:05 | Emergency (ER) | payer OTHER ==
[~2016-07-28] VITALS: Ht 180.3 cm; Wt 70.3 kg
[2016-07-28] MEDS ORDERED: VITA50TA PO (04:56)
[2016-07-28] MEDS ORDERED: KETOROLAC 30 MG/ML VIAL (J1885) IV ONE (05:00)
[2016-07-28] MEDS ORDERED: ISOVUE-370 76% 100ML VIAL (Q9967) As Ordered ONE (05:08)
[2016-07-28 05:19] LABS: BASO # 0.1 K/mm3 (0.0-0.2); BASO % 0.7 % (0.0-1.0); EOS # 0.1 K/mm3 (0.0-0.50); EOS % 1.3 % (0.0-3.0); LARGE UNSTAINED CELL # 0.3 K/mm3 (0.0-0.4); LARGE UNSTAINED CELL % 2.9 % (0.0-4.0); LYMPH # 2.2 K/mm3 (1.5-4.5); LYMPH % 24.5 % (24.0-44.0); MEAN CORPUSCULAR HEMOGLOBIN 33.3 pg (27.0-33.0); MEAN CORPUSCULAR HGB CONC 33.6 g/dl (32.0-36.5); MEAN CORPUSCULAR VOLUME 99.1 fl (80.0-96.0); MONO # 0.5 K/mm3 (0.0-0.8); MONO % 5.8 % (0.0-5.0); NEUTROPHILS # 5.8 K/mm3 (1.8-7.7); NEUTROPHILS % 64.9 % (36.0-66.0); PLATELET COUNT, AUTOMATED 110 k/mm3 (150-450); RED CELL DISTRIBUTION WIDTH 13.8 % (11.5-14.5); WHITE BLOOD COUNT 8.9 K/mm3 (4.0-10.0)
[2016-07-28 05:29] LABS: ANION GAP 13 MEQ/L (8-16); BLOOD UREA NITROGEN 5 MG/DL (7-18); CALCIUM LEVEL 8.3 MG/DL (8.5-10.1); CARBON DIOXIDE LEVEL 27 MEQ/L (21-32); CHLORIDE LEVEL 104 MEQ/L (98-107); CREATININE FOR GFR 0.59 MG/DL (0.70-1.30); GLOMERULAR FILTRATION RATE > 60.0 (>56); GLUCOSE, FASTING 93 MG/DL (70-105); POTASSIUM SERUM 3.8 MEQ/L (3.5-5.1); SODIUM LEVEL 144 MEQ/L (136-145)
[2016-07-28] MEDS ORDERED: IPRATROPIUM 0.5MG/ALBUTEROL 2.5MG INH SOL UD 3ML (DUONEB)(J7620) NEB ONE (06:00)
--- NOTE | 2016-07-28 06:10 | REPUSA ---
CLINICAL HISTORY: Chest pain, exclude PE. TECHNIQUE: Multiple incremental axial, coronal and oblique images are obtained from the thoracic inle t to the upper abdomen. Intravenous contrast material was administered as per pulmonary embolism prot ocol. COMMENTS: Comparison is made to prior exam performed on 11/16/2016. Unchanged emphysema. Unchanged chronic bronchitis. Interval appearance of airspace infiltrate in the right lower lobe. Interval appearance of airspace consolidation in the left lower lobe. There is excellent opacification of pulmonary arterial system without evidence for pulmonary embolism . Aorta is of normal caliber without evidence for dissection or aneurysm. There is no evidence of pleural or parenchymal mass. There are no pleural effusions. There is no evid ence of hilar or mediastinal lymphadenopathy. The heart and great vessels are within normal limits. Images of the upper abdomen demonstrate no evidence of adrenal mass. The bony structures are free of lytic or blastic lesions. Multilevel degenerative changes are seen in volving the visualized thoracolumbar spine. Scattered calcifications are seen involving the aorta and major branches compatible with atherosclero sis. Moderate hepatomegaly with fat infiltration. IMPRESSION: No evidence for pulmonary embolism. Interval appearance of bilateral multifocal airspace disease in the lower lobes. Findings are probabl y secondary to pneumonia. Thank you for your kind referral of this patient.
[2016-07-28 06:15] VITALS: O2SAT 97
[2016-07-28] MEDS ORDERED: cefTRIAXone SOD 1 GM in D5W MINI-BAG PLUS 50 ML IV ONE (06:15)
[2016-07-28] MEDS ORDERED: AZITHROMYCIN 250 MG TAB PO ONE (06:15)
[2016-07-28] MEDS ORDERED: AUGM875T27 PO (06:15)
[2016-07-28] MEDS ORDERED: AZIT250T3 PO (06:15)
[2016-07-28 07:47] VITALS: BP 118/81
--- NOTE | 2016-07-28 09:07 | ECGEPIP ---
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
== END 2016-07-28 08:03 | disposition home or self-care (01) ==
LOC: EDBD 04:05 → M ED 06:47
DX: J18.1 Lobar pneumonia, unspecified organism (principal); I44.7 Left bundle-branch block, unspecified; R06.02 Shortness of breath; F17.210 Nicotine dependence, cigarettes, uncomplicated; Z79.899 Other long term (current) drug therapy; Z91.040 Latex allergy status

== ENCOUNTER 2016-09-15 00:50 | Emergency (ER) | payer OTHER ==
[~2016-09-15] VITALS: Ht 177.8 cm; Wt 70.0 kg
[~2016-09-15 00:50] MED LIST changes: +AUGM875T28 PO; +AZIT-12 PO; -FOLI1TAB2 PO; +FOLI1TAB4 PO; +HYDR-3363 PO; -HYDR25T PO; +LEVA1TAB2 PO; -LEVA500T PO; -MUCI600T34 PO; +MUCI600T37 PO; -OXAZ10CA PO; +OXAZ10CA3 PO; +TRAZ-136 PO; -TRAZ100T4 PO; +TRAZ50TA11 PO; -TRAZ50TA4 PO; -VITA100T18 PO; +VITA100T88 PO; +VITA50TA PO
--- NOTE | 2016-09-15 02:10 | REPUSA ---
CLINICAL HISTORY: Head trauma. TECHNIQUE: Multiple axial brain CT scan sections were obtained from base to vertex without contrast a dministration. COMMENTS: Comparison is made to the prior exam performed on 06/16/2016. There is no evidence of skull fracture. The study shows normal configuration of sella turcica. There are no intra or extra-axial collections. There is no mass effect or midline shift. There is no evidence of hematoma formation. No hydrocephal us is present. No abnormal calcifications are noted. No significant abnormalities are seen either in the posterior fossa or supratentorial compartment. The sinuses and mastoid air cells are patent. IMPRESSION: No change is noted since the prior exam. No evidence of acute intracranial pathology. No intracranial hemorrhage or skull fracture. Thank you for your kind referral of this patient.
--- NOTE | 2016-09-15 02:20 | REPUSA ---
CLINICAL HISTORY: Trauma. TECHNIQUE: Multiple axial CT images were obtained through the thorax without IV contrast material. COMMENTS: Comparison is made to the prior exam performed on 07/28/2016. Bilateral basilar atelectatic pulmonary changes. There is no evidence of pleural or parenchymal-based mass. There are no pleural effusions. There is n o evidence of hilar or mediastinal lymphadenopathy. The heart and great vessels are within normal perez its. The visualized portions of the liver are of uniform attenuation without mass or defect. There is no i ntra or extrahepatic biliary ductal dilatation. The spleen is unremarkable. The visualized pancreas i s of normal contour and attenuation characteristics. There is no evidence of adrenal mass. The visual ized portions of the kidneys present no abnormalities. The bony structures are free of lytic or blastic lesions. Hepatomegaly with fatty infiltration. IMPRESSION: Bilateral basilar atelectatic pulmonary changes. No evidence of acute thoracic pathology. Hepatomegaly with fat infiltration. Resolution of bilateral groundglass densities. Thank you for your kind referral of this patient.
[2016-09-15] MEDS ORDERED: NORCOTAB PO (03:58)
[2016-09-15] MEDS ORDERED: ANEXSIA, NORCO 7.5MG/325MG TABLET(HYDROCODONE/APAP) PO ONE (04:00)
[2016-09-15 04:15] VITALS: BP 165/92
[2016-12-31] MEDS ORDERED: VITA100072 PO (19:46)
[2016-12-31] MEDS ORDERED: ASPI1TAB PO (19:46)
[2016-12-31] MEDS ORDERED: LOSA25TA8 PO (19:46)
[2016-12-31] MEDS ORDERED: MAGN400T5 PO (19:46)
[2016-12-31] MEDS ORDERED: BUSP15TA47 PO (19:46)
== END 2016-09-15 04:40 | disposition home or self-care (01) ==
LOC: M ED 00:50 → EDBD 00:50 → M ED 04:40
DX: S20.212A Contusion of left front wall of thorax, initial encounter (principal); W01.10XA Fall on same level from slipping, tripping and stumbling with subsequent striking against unspecified object, initial encounter; Y92.89 Other specified places as the place of occurrence of the external cause; Y93.89 Activity, other specified; Y99.8 Other external cause status; J44.9 Chronic obstructive pulmonary disease, unspecified; F17.210 Nicotine dependence, cigarettes, uncomplicated; Z91.040 Latex allergy status; Z79.899 Other long term (current) drug therapy; Z79.51 Long term (current) use of inhaled steroids

== ENCOUNTER 2016-09-30 16:28 | Inpatient (IN) | payer OTHER ==
[~2016-09-30] VITALS: Ht 177.8 cm; Wt 60.0 kg
[~2016-09-30 16:28] MED LIST changes: +NORCOTAB PO
[2016-09-30 17:21] LABS: BASO % 0.9 % (0.0-1.0); EOS % 0.3 % (0.0-3.0); LARGE UNSTAINED CELL # 0.1 K/mm3 (0.0-0.4); LARGE UNSTAINED CELL % 1.7 % (0.0-4.0); LYMPH # 0.5 K/mm3 (1.5-4.5); LYMPH % 9.2 % (24.0-44.0); MEAN CORPUSCULAR HEMOGLOBIN 33.1 pg (27.0-33.0); MEAN CORPUSCULAR HGB CONC 34.1 g/dl (32.0-36.5); MEAN CORPUSCULAR VOLUME 96.9 fl (80.0-96.0); MONO # 0.4 K/mm3 (0.0-0.8); MONO % 6.5 % (0.0-5.0); NEUTROPHILS # 4.5 K/mm3 (1.8-7.7); NEUTROPHILS % 81.3 % (36.0-66.0); PLATELET COUNT, AUTOMATED 120 k/mm3 (150-450); RED CELL DISTRIBUTION WIDTH 13.1 % (11.5-14.5); WHITE BLOOD COUNT 5.5 K/mm3 (4.0-10.0)
[2016-09-30 17:47] LABS: ANION GAP 20 MEQ/L (8-16); BLOOD UREA NITROGEN 6 MG/DL (7-18); CALCIUM LEVEL 9.2 MG/DL (8.5-10.1); CARBON DIOXIDE LEVEL 21 MEQ/L (21-32); CHLORIDE LEVEL 98 MEQ/L (98-107); CREATININE FOR GFR 0.94 MG/DL (0.70-1.30); GLOMERULAR FILTRATION RATE > 60.0 (>56); GLUCOSE, FASTING 181 MG/DL (70-105); POTASSIUM SERUM 3.4 MEQ/L (3.5-5.1); SODIUM LEVEL 139 MEQ/L (136-145)
--- NOTE | 2016-09-30 18:26 | REP ---
AP PORTABLE CHEST: 09/30/2016. Clinical history: Syncope, near-syncope. Comparison: 07/09/2016 chest x-ray, CT chest 09/15/2016. Findings: Lungs are well inflated. CP angles grossly clear. There is no effusion, infiltrate, atelectasis or mass. Heart is not enlarged. Some mild hyperinflation with pulmonary artery hypertension, likely on the basis of COPD. The aorta is normal for age. Airway is intact. No mediastinal or hilar mass. Bones show no acute finding. Impression: 1. Hyperinflation and changes of some COPD, but no acute infiltrate, effusion, cardiomegaly, edema, atelectasis or mass. Signed by Rito Mattson MD 09/30/2016 10:27 P
[2016-09-30] MEDS ORDERED: NS 500 ML IV ONE (18:30)
[2016-09-30 20:23] LABS: ABG BASE EXCESS 3.3 (-2.0-2.0); ABG HCO3 25.9 MEQ/L (22.0-26.0); ABG PARTIAL PRESSURE CO2 33.1 mmHg (35.0-45.0); ABG PARTIAL PRESSURE O2 140.2 mmHg (75.0-100.0); ABG STANDARD HCO3 27.5 MEQ/L (22.0-26.0); ABG pH (ARTERIAL) 7.512 UNITS (7.350-7.450)
[2016-09-30] MEDS ORDERED: LORazepam 2 MG/ML VIAL (J2060) IV STA (20:39)
[2016-09-30] MEDS ORDERED: NS 1,000 ML IV ONE (20:45)
[2016-09-30] MEDS ORDERED: OXAZEPAM 15 MG CAP PO ONE (20:45)
[2016-09-30] MEDS ORDERED: ONDANSETRON 4MG/2ML VIAL (J2405) IV ONE (20:45)
--- NOTE | 2016-09-30 21:20 | REPUSA ---
CLINICAL HISTORY: Syncope TECHNIQUE: Multiple axial brain CT scan sections were obtained from base to vertex without contrast a dministration. COMMENTS: The study shows normal configuration of sella turcica. There are no intra or extra-axial collections. There is no mass effect or midline shift. There is no evidence of hematoma formation. No hydrocephal us is present. No abnormal calcifications are noted. No significant abnormalities are seen either in the posterior fossa or supratentorial compartment. The sinuses and mastoid air cells are patent. IMPRESSION: No evidence of acute intracranial pathology. Thank you for your kind referral of this patient.
[2016-09-30] MEDS ORDERED: NORC1TAB4 PO (22:16)
[2016-09-30] MEDS ORDERED: LOSA25TA8 PO (22:16)
[2016-09-30] MEDS ORDERED: TRAZ50TA11 PO (22:16)
[2016-09-30] MEDS ORDERED: THIA100TA PO (22:16)
[2016-09-30] MEDS ORDERED: INCR1INH INH (22:16)
[2016-10-01] VITALS (10 sets, daily range): BP systolic 97–145; BP diastolic 68–95; O2SAT 99
[2016-10-01] MEDS ORDERED: IPRATROPIUM 0.5MG/ALBUTEROL 2.5MG INH SOL UD 3ML (DUONEB)(J7620) NEB PRN (00:15)
[2016-10-01] MEDS ORDERED: BISACODYL 5 MG TAB PO PRN (00:15)
[2016-10-01] MEDS ORDERED: ONDANSETRON 4 MG TAB (S0181) PO PRN (00:15)
[2016-10-01] MEDS ORDERED: MULTIVITAMINS/MINERALS THERAP 1 TAB PO STA (00:24)
[2016-10-01] MEDS: IPRATROPIUM 0.5MG/ALBUTEROL 2.5MG INH SOL UD 3ML (DUONEB)(J7620) NEB SCH ×4 (00:53→23:21)
[2016-10-01] MEDS: NS 1,000 ML IV SCH ×4 (01:23→19:38)
[2016-10-01] MEDS: ACETAMINOPHEN TAB 650MG DOSE (2X325MG) PO PRN (01:25)
[2016-10-01 04:47] LABS: BASO % 0.6 % (0.0-1.0); EOS # 0.1 K/mm3 (0.0-0.50); EOS % 1.9 % (0.0-3.0); LARGE UNSTAINED CELL # 0.2 K/mm3 (0.0-0.4); LARGE UNSTAINED CELL % 2.9 % (0.0-4.0); LYMPH # 1.2 K/mm3 (1.5-4.5); LYMPH % 21.8 % (24.0-44.0); MEAN CORPUSCULAR HEMOGLOBIN 32.8 pg (27.0-33.0); MEAN CORPUSCULAR VOLUME 96.6 fl (80.0-96.0); MONO # 0.4 K/mm3 (0.0-0.8); MONO % 6.3 % (0.0-5.0); NEUTROPHILS # 3.7 K/mm3 (1.8-7.7); NEUTROPHILS % 66.4 % (36.0-66.0); PLATELET COUNT, AUTOMATED 119 k/mm3 (150-450); RED CELL DISTRIBUTION WIDTH 13.2 % (11.5-14.5); WHITE BLOOD COUNT 5.6 K/mm3 (4.0-10.0)
[2016-10-01 05:06] LABS: ALBUMIN 3.4 GM/DL (3.2-5.2); ALBUMIN/GLOBULIN RATIO 1.13 (1.00-1.93); ALKALINE PHOSPHATASE 63 U/L (45-117); ALT/SGPT 52 U/L (12-78); ANION GAP 10 MEQ/L (8-16); AST/SGOT 78 U/L (15-37); BILIRUBIN,TOTAL 1.3 MG/DL (0.2-1.0); BLOOD UREA NITROGEN 4 MG/DL (7-18); CALCIUM LEVEL 8.3 MG/DL (8.5-10.1); CARBON DIOXIDE LEVEL 28 MEQ/L (21-32); CHLORIDE LEVEL 102 MEQ/L (98-107); CREATININE FOR GFR 0.39 MG/DL (0.70-1.30); GLUCOSE, FASTING 94 MG/DL (70-105); MAGNESIUM LEVEL 1.5 MG/DL (1.8-2.4); SODIUM LEVEL 140 MEQ/L (136-145); TOTAL PROTEIN 6.4 GM/DL (6.4-8.2)
[2016-10-01 05:19] LABS: GLOMERULAR FILTRATION RATE > 60.0 (>56)
[2016-10-01] MEDS: MAG SULF 1GM/100ML (MAG RUN) 1 GM in APPROPRIATE DILUENT 1 EA IV SCH ×2 (08:43→09:52)
[2016-10-01] MEDS: ENOXAPARIN 40 MG/0.4 ML SYRINGE (J1650) SC SCH (08:43)
[2016-10-01] MEDS: THIAMINE 100 MG TAB PO SCH (08:44)
[2016-10-01] MEDS: FOLIC ACID 1 MG TAB PO SCH (08:44)
[2016-10-01] MEDS ORDERED: POTASSIUM CHLORIDE 10 MEQ SR TABLET PO SCH (09:00)
--- NOTE | 2016-10-01 10:00 | ECGEPIP ---
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
[2016-10-01] MEDS: OXAZEPAM 10 MG CAP PO PRN (12:46)
--- NOTE | 2016-10-01 13:04 | IPNPDOC ---
Subjective Date Seen The patient was seen on 10/01/16. Subjective Chief Complaint/HPI The patient is a 51-year-old male admitted with a reason for visit of Syncope. 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 He denies any pain currently in his left leg but he states he feels "weak all over especially in my left leg". He denies feeling hot yesterday prior to collapsing, and states he has been eating and drinking normally. He states he has 3 alcoholic drinks per night, and his last drink was night. He states he had tremors in the ED that got better with Serax and ativan, and denies tremors at present. He states he has never collapsed before. General: Reports: Fatigue, Denies: Chills, Malaise Constitutional: Denies: Chills, Fever Eyes: Denies: Pain, Vision change ENT: Denies: Head Aches Skin: Denies: Rash Pulmonary: Reports: Dyspnea (chronic; wears O2 3L/min at night and PRN during the day), Other Symptoms (wheezing - chronic, at baseline), Denies: Cough Cardiovascular: Denies: Chest Pain, Palpitations, Orthopnea, Edema, Lt Headedness Genitourinary: Denies: Dysuria Musculoskeletal: Reports: Spasms (left leg intermittently), Denies: Neck Pain, Back Pain, Joint Pain, Muscle Pain Neurological: Reports: Weakness (generalized, L leg more than right leg), Numbness (bottoms of feet are chronically numb), Denies: Incoordination, Change in speech, Confusion, Seizures Psych: Reports: Mood Normal, Denies: Anxiety, Depression, Memory Issues Objective Physical Examination General Exam: Positive: Alert, Cooperative, No Acute Distress Eye Exam: Positive: PERRLA, Conjunctiva & lids normal, EOMI, Negative: Sclera icteric ENT Exam: Positive: Mucous membr. moist/pink Neck Exam: Positive: Supple Chest Exam: Positive: Rhonchi (faint rhonchi throughout), Wheezing (faint end- expiratory wheezing), Diminished, Negative: Rales Heart Exam: Positive: Rate Normal, Normal S1, Normal S2, Negative: Murmurs, Rubs Telemetry: Positive: No significant arrhythmia Abdomen Exam: Positive: Normal bowel sounds, Soft, Negative: Tenderness Extremity Exam: Negative: Edema, Normal pulses, Tenderness, Swelling Skin Exam: Positive: Nl turgor and temperature, Negative: Rash Neuro Exam: Positive: Normal Speech, Strength at 5/5 X4 ext (Initially, strength in left leg is 4+/5, however when ankle, knee, and hip joints are tested separately with encouragement, strength is 5/5 on left; strength is 5/5 on right), Normal Tone, Cranial Nerves 3-12 NL, Reflexes 2+, Other (Very slight resting tremor of hands bilaterally; very slight intention tremor with finger-to -nose testing), Negative: Sensation Intact (patient states bottoms of feet are chronically numb; otherwise sensation is intact) Psych Exam: Positive: Mental status NL, Mood NL, Memory Intact, Oriented x 3 Assessment /Plan Problems (1) Syncope Status: Acute Response to Treatment: Improving Problem Text: Patient has had no further episodes of syncope. - Orthostatic this morning - See below - Monitor on Telemetery - ECG suggest LAE; check echocardiogram (2) Orthostatic hypotension Status: Acute Problem Text: Orthostatic based on BP and HR this morning. - Continue IV NS - Recheck Orthostatic BP in the AM (3) Weakness Status: Acute Problem Text: Patient c/o generalized weakness and left leg > right leg weakness; when left leg joints are examined separately, strength is 5/5 for each joint. He is also c/o intermittent cramping/pain of left leg - no muscle spasms or tenderness are present today. - Not safe for discharge per PT due to overall shakiness and weakness - Continue PT (4) Alcohol dependence Status: Chronic Problem Text: Patient has history of alcohol use disorder and has been to rehab and detox in the past. Currently appears calm with very mild tremors of hands. - Monitor CIWA scoring - Serax and ativan ordered PRN (5) COPD (chronic obstructive pulmonary disease) Status: Chronic Response to Treatment: Stable Problem Text: Patient has diffuse faint rhonchi/end-expiratory wheezing but states he is at his baseline. O2 sat 97% on 2 L/min. Continue duonebs. Plan/VTE VTE Prophylaxis Ordered?: Yes (lovenox) VS, I&O, 24H, Fishbone Vital Signs/I&O Vital Signs Date Time Temp Pulse Resp B/P (MAP) Pulse Ox O2 Delivery O2 Flow Rate FiO2 10/01/16 12:00 98.5 92 22 125/77 (93) 97 Nasal Cannula 2.0 I&O- Last 24 Hours up to 6 AM 10/01/16 06:00 Intake Total 2050 ml Balance 2050 ml Laboratory Data 24H LABS Laboratory Tests 2 09/30/16 17:10: White Blood Count 5.5, Red Blood Count 3.85L, Hemoglobin 12.7L, Hematocrit 37.3L , Mean Corpuscular Volume 96.9H, Mean Corpuscular Hemoglobin 33.1H, Mean Corpuscular Hemoglobin Concent 34.1, Red Cell Distribution Width 13.1, Platelet Count 120L, Neutrophils (%) (Auto) 81.3H, Lymphocytes (%) (Auto) 9.2L, Monocytes (%) (Auto) 6.5H, Eosinophils (%) (Auto) 0.3, Basophils (%) (Auto) 0.9 , Neutrophils # (Auto) 4.5, Lymphocytes # (Auto) 0.5L, Monocytes # (Auto) 0.4, Eosinophils # (Auto) 0.0, Basophils # (Auto) 0.0, Large Unclassified Cells % 1.7 , Large Unclassified Cells # 0.1, Anion Gap 20H, Glomerular Filtration Rate > 60.0, Blood Urea Nitrogen 6L, Creatinine 0.94, Sodium Level 139, Potassium Level 3.4L, Chloride Level 98, Carbon Dioxide Level 21, Calcium Level 9.2, Total Creatine Kinase 132, Creatine Kinase MB 2.1, Creatine Kinase MB Relative Index 1.59, Troponin I 0.05, Thyroid Stimulating Hormone (TSH) 2.130, Ethyl Alcohol Level < 0.003 09/30/16 19:59: Blood Gas Bicarbonate Standard 27.5H, Arterial Blood pH 7.512H, Arterial Blood Partial Pressure CO2 33.1L, Arterial Blood Partial Pressure O2 140.2H, Arterial Blood Total CO2 27.0, Arterial Blood HCO3 25.9, Arterial Blood Base Excess 3.3H , Arterial Blood Oxygen Saturation 99.1H 10/01/16 04:36: White Blood Count 5.6, Red Blood Count 3.84L, Hemoglobin 12.6L, Hematocrit 37.1L , Mean Corpuscular Volume 96.6H, Mean Corpuscular Hemoglobin 32.8, Mean Corpuscular Hemoglobin Concent 34.0, Red Cell Distribution Width 13.2, Platelet Count 119L, Neutrophils (%) (Auto) 66.4H, Lymphocytes (%) (Auto) 21.8L, Monocytes (%) (Auto) 6.3H, Eosinophils (%) (Auto) 1.9, Basophils (%) (Auto) 0.6 , Neutrophils # (Auto) 3.7, Lymphocytes # (Auto) 1.2L, Monocytes # (Auto) 0.4, Eosinophils # (Auto) 0.1, Basophils # (Auto) 0.0, Large Unclassified Cells % 2.9 , Large Unclassified Cells # 0.2, Anion Gap 10, Glomerular Filtration Rate > 60.0, Blood Urea Nitrogen 4L, Creatinine 0.39#L, Sodium Level 140, Potassium Level 3.0L, Chloride Level 102, Carbon Dioxide Level 28, Calcium Level 8.3L, Aspartate Amino Transf (AST/SGOT) 78H, Alanine Aminotransferase (ALT/SGPT) 52, Alkaline Phosphatase 63, Total Bilirubin 1.3H, Total Protein 6.4, Albumin 3.4, Magnesium Level 1.5L, Albumin/Globulin Ratio 1.13 CBC/BMP Laboratory Tests 09/30/16 17:10 Red Blood Count 3.85 L, Mean Corpuscular Volume 96.9 H, Mean Corpuscular Hemoglobin 33.1 H, Mean Corpuscular Hemoglobin Concent 34.1, Red Cell Distribution Width 13.1, Neutrophils (%) (Auto) 81.3 H, Lymphocytes (%) (Auto) 9.2 L, Monocytes (%) (Auto) 6.5 H, Eosinophils (%) (Auto) 0.3, Basophils (%) ( Auto) 0.9, Neutrophils # (Auto) 4.5, Lymphocytes # (Auto) 0.5 L, Monocytes # ( Auto) 0.4, Eosinophils # (Auto) 0.0, Basophils # (Auto) 0.0, Calcium Level 9.2 10/01/16 04:36 Red Blood Count 3.84 L, Mean Corpuscular Volume 96.6 H, Mean Corpuscular Hemoglobin 32.8, Mean Corpuscular Hemoglobin Concent 34.0, Red Cell Distribution Width 13.2, Neutrophils (%) (Auto) 66.4 H, Lymphocytes (%) (Auto) 21.8 L, Monocytes (%) (Auto) 6.3 H, Eosinophils (%) (Auto) 1.9, Basophils (%) ( Auto) 0.6, Neutrophils # (Auto) 3.7, Lymphocytes # (Auto) 1.2 L, Monocytes # ( Auto) 0.4, Eosinophils # (Auto) 0.1, Basophils # (Auto) 0.0, Calcium Level 8.3 L , Aspartate Amino Transf (AST/SGOT) 78 H, Alanine Aminotransferase (ALT/SGPT) 52 , Alkaline Phosphatase 63, Total Bilirubin 1.3 H, Total Protein 6.4, Albumin 3.4 KAYDEN JARA MD Oct 01, 2016 12:56
[2016-10-01 15:22] LABS: ANION GAP 10 MEQ/L (8-16); BLOOD UREA NITROGEN 2 MG/DL (7-18); CALCIUM LEVEL 8.2 MG/DL (8.5-10.1); CARBON DIOXIDE LEVEL 27 MEQ/L (21-32); CHLORIDE LEVEL 103 MEQ/L (98-107); CREATININE FOR GFR 0.55 MG/DL (0.70-1.30); GLOMERULAR FILTRATION RATE > 60.0 (>56); GLUCOSE, FASTING 118 MG/DL (70-105); POTASSIUM SERUM 3.5 MEQ/L (3.5-5.1); SODIUM LEVEL 140 MEQ/L (136-145)
--- NOTE | 2016-10-01 16:28 | ECGEPIP ---
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 Electronically Signed On 10-01-2016 16:27:53 EDT by Robb Rodriguez
--- NOTE | 2016-10-01 20:25 | HPEPDOC ---
General Date of Admission Sep 30, 2016 at 23:05 Primary Care Physician: Selwyn Johnson MD Other Providers Also sees Ana Cristina YEE Attending Physician: HERNANDO FELDMAN DO Chief Complaint The patient is a 51-year-old male admitted with a reason for visit of Syncope. Source: Patient History of Present Illness CHIEF COMPLAINT: seizure, passed out HISTORY OF PRESENT ILLNESS: Mr. Castillo is a 51 yo M with a PMH of COPD on 3 liters of oxygen at home, EtOH abuse, HTN, seasonal allergies, depression, and folate deficiency (likely from malnutrition according to H&P from 04/17/16) who presented to [facility] ED on 09/30/16 for a syncopal episode that occurred at patient's workplace. 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 He was sitting before by the pumphouse, he went to stand up, and he then "went down" and passed out. States there were at least a half a dozen guys/ coworkers who were there waking him up. They called EMS and he arrived to the [facility] ED. Patient states that when he had stood up, his L leg was shaking/ trembling, he could not get his balance, and then he "crashed and burned." States he has passed out before a couple of times in the last couple of months as well, but denies passing out before then in his past hx. States he had 3 alcoholic [place] drinks the night before his syncopal episode. States he normally drinks 2-3 alcoholic drinks a night--depends on the day for him. He states he now feels weak in his arms and legs and has numbness in his feet. States the numbness in the feet he has had for a while. When I asked if it was peripheral neuropathy, he stated "I think that's what it is called." Denies hx of diabetes. States he has never had seizure before and was thinking this could have been a seizure he experienced. He also admits he felt dizzy before he passed out. States his loss of consciousness was witnessed by the other workers who were there, but cannot recall exactly who/how many. In addition, he states he has financial stress and has no income. He drinks due to his financial stress. 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 Has no chowdhury flow. The roof leaks. Denies fever, chills, dizziness right now, nausea, vomiting, diarrhea, abdominal pain, constipation, chest pain. Denies hematuria, hematochezia, dysuria. Admits to chronic cough from COPD. States when he is lying down, he has noticed an increase in buildup of phlegm. States he feels more SOB and feels a little more chest tightness than usual. Denies blurred vision. Admits to 5/10 pain in the back of his head which is throbbing and constant in nature with no radiation anywhere else. In the ED, patient's VS showed T 99.9, P 110, RR 18, BP 161/89, pulse ox 99% on 3 liters nasal cannula. His most recent VS when I saw patient in the ED were P 98, BP 119/87, pulse ox: 97% on 2 liters nasal cannula. He was administered serax 30 mg PO once, zofran 4 mg IV once, 1 liter normal saline bolus and a 500 mL normal saline bolus, and 1 mg ativan IV. States he felt better after that and his tremulousness improved. Labs were significant for hgb 12.7, hct 37.3, platelets of 120, neut % count of 81.3, lymph % count of 9.2, K 3.4, anion gap: 20, BUN 6, Cr 0.94, GFR >60, fasting glucose 181, Ca 9.2, CK-MB and troponin WNL , TSH 2.130 and WNL. Toxicology revealed ethyl alcohol level of <0.003. ABG showed: pH: 7.512, pCO2: 33.1, pO2: 140.2, base excess: 3.3, serum CO2: 21 consistent with respiratory alkalosis. Head CT was (-). CXR showed hyperinflation and changes of some COPD but no acute infiltrate, effusion, cardiomegaly, edema, atelectasis, or mass. PAST MEDICAL HISTORY: COPD on 3 liters of oxygen at home Chronic hypoxic respiratory failure with home O2 supplementation hx EtOH abuse Chronic Tobacco Use HTN Seasonal allergies Depression Folate deficiency (likely 2/2 poor nutrition according to H&P from 04/17/16) H/O Community Acquired Pneumonia PAST SURGICAL HISTORY: L ear surgery Variceal Ligation MEDICATIONS: Please see below. ALLERGIES: Seasonal Latex: rash, hives, edema SOCIAL HISTORY: Chronic tobacco user. Recently cut down to 10 cigarettes per day. If feels dizzy , does not smoke. Has smoked 1 PPD x 40 years. EtOH: 2-3 drinks a night x 40 years Smoked pot in [employer]. Lives in a [facility] mobile home across the street underneath [facility]. 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 Has no income and is under financial stress all of the time. FAMILY HISTORY: Mother: slight HTN, Dad: from sepsis Has 1 brother and 1 sister: both healthy Denies asbestos exposure that he knows of. CODE STATUS: FULL CODE REVIEW OF SYSTEMS: All ROS negative except for that which is stated above in HPI. PHYSICAL EXAMINATION: Please see VS and PE below. LABORATORY DATA: Please see above in HPI and below for full labs. ELECTROCARDIOGRAM: Showed sinus tachycardia with 1st degree AV block, L atrial enlargement, LBBB, ventricular rate of 101 bpm, AK interval: 274 ms, QRS duration: 154 ms, QTc: 465 ms. EKG from 07/28/16 showed sinus rhythm with new LBBB at a ventricular rate of 95. RADIOLOGY: CT scan of the brain without contrast: showed no evidence of acute intracranial pathology. ASSESSMENT: Patient is a 51 yo M who is presenting for a syncopal episode. Brain CT was negative for acute intracranial pathology. Orthostatic VS were positive this AM. Patient also has generalized weakness as well as more pronounced weakness in his lower extremities bilaterally. CXR showed hyperinflation and changes of some COPD but no acute infiltrate, effusion, cardiomegaly, edema, atelectasis, or mass. K was 3.4. Chronic Medical Issue: COPD on 3 liters of oxygen at home Chronic hypoxic respiratory failure with home O2 supplementation hx EtOH abuse HTN Seasonal allergies Depression Folate deficiency (likely 2/2 poor nutrition according to H&P from 04/17/16) H/O Community Acquired Pneumonia PLAN: Syncopal Episode: Admit to PCU. Monitor on telemetry. Check VS q4h. Do neuro checks 4h. Consider repeat EKG in morning. Consider 2D echocardiogram. Monitor CBCs daily. Orthostatic Hypotension: continue IVF and monitor VS q4h. Consider repeat orthostatics. Hold any home BP medications. Weakness: in lower extremities reported mainly. Physical therapy consult. EtOH dependence: have ordered PRN serax 10 mg q6h PRN, ativan 1 mg IV q4h PRN anxiety and agitation, multivitamin daily, thiamine 100 mg daily, folic acid 1 mg daily. Zofran PRN nausea. Have encouraged alcohol cessation. COPD: continue duonebs q6h scheduled and q2h PRN. Keep saturations >88%. Chronic tobacco use: patient would like nicotine patch during stay. Have encouraged smoking cessation. Hypokalemia: replace potassium as necessary. Monitor CMPs daily. Check Mg level. Continue home medications for chronic medical problems. Physical Therapy Consult I would like to place PFS consult as patient has a lot of social issues/ financial stress/lives in mobile home alone DVT ppx: lovenox 40 units SC daily FULL CODE STATUS Immunizations as per protocol. My preceptor for this patient encounter was Dr. Hernando Feldman, and was physically present in the building during the encounter and was fully available. As needed, all aspects of the patient interview, examination, medical decision making process, and medical care plan development were reviewed and approved by the preceptor. Preceptor is aware and concurs with the plan as stated in the body of this note and will attest to such by his/her cosignature. Home Medications Scheduled (Incruse Ellipta) 62.5 Mcg/Inh Inh, 62.5 MCG INH DAILY, (Reported) Citalopram Hydrobromide (Citalopram Hydrobromide) 40 Mg Tab, 40 MG PO DAILY, ( Reported) Cyanocobalamin (Vitamin B-12) 250 Mcg Tab, 250 MCG PO DAILY, (Reported) Folic Acid (Folic Acid) 1 Mg Tab, 1 MG PO DAILY, (Reported) Levocetirizine Hydrochloride (Levocetirizine Dihydrochl) 5 Mg Tab, 5 MG PO DAILY , (Reported) Losartan Potassium (Losartan Potassium) 25 Mg Tab, 25 MG PO DAILY, (Reported) Mometasone Furoate Monohydrate (Nasonex) 120 Glen/17 Gm Naspr, 1 SPRAY NA DAILY , (Reported) Montelukast Sodium (Singulair) 10 Mg Tab, 10 MG PO DAILY, (Reported) Naltrexone HCl (Naltrexone HCl) 50 Mg Tab, 50 MG PO BID, (Reported) Salmeterol/Fluticasone (Advair Diskus 500-50 Mcg/Dose) 28 Puff/Inhaler Aerp, 1 PUFF INH BID, (Reported) Thiamine Hcl (Thiamine Hcl) 100 Mg Tab, 100 MG PO DAILY, (Reported) Scheduled PRN Acetaminophen/Hydrocodone ([place] 5-325 mg) 1 Tab Tab, 1 TAB PO Q6H PRN for PAIN, (Reported) Albuterol Sulfate (Ventolin Hfa) 200 Puff/8 Gm Aers, 2 PUFF INH Q4H PRN for SOB/ WHEEZING, (Reported) Albuterol/Ipratropium (Ipratropium [place]/Albut 0.5-2.5 (3) mg/3Ml) 1 Sen Sen, 1 SEN INH Q6H PRN for SOB/WHEEZING, (Reported) Trazodone HCl (Trazodone HCl) 50 Mg Tab, 50 MG PO QHSP PRN for SLEEP, (Reported) Allergies Coded Allergies: Latex (Verified Allergy, Intermediate, HIVES, EDMA, 11/13/12) Physical Examination General Exam: Positive: Cooperative, Other (was in and out of alertness as he would fall asleep while asking him questions. But mental status was normal. Just some decreased mentation at times as he would nod off likely due to medications. ), Negative: No Acute Distress Eye Exam: Positive: PERRLA, Conjunctiva & lids normal, EOMI, Negative: Sclera icteric ENT Exam: Positive: Atraumatic, Mucous membr. moist/pink, Pharynx Normal, Tongue Midline, Negative: Pharyngeal Edema Neck Exam: Positive: Supple, Negative: JVD, thyromegaly, Lymphadenopathy Chest Exam: Positive: Wheezing (diffuse and prominent wheezing throughout lung garcia in both inspiratory and expiratory phase appreciated) Heart Exam: Positive: Tachycardic, Regular Rhythm, Normal S1, Normal S2, Negative: Gallops, Murmurs, Rubs Abdomen Exam: Positive: Normal bowel sounds, Soft, Other (nondistended), Negative: Tenderness, Hepatospenomegaly Extremity Exam: Positive: Normal pulses, Other (very cool feet bilaterally.), Negative: Clubbing, Cyanosis, Edema Skin Exam: Negative: Rash, Breakdown Neuro Exam: Positive: Normal Speech, Sensation Intact, Other (CN 2-12 intact bilaterally. 5/5 strength in upper extremities bilaterally. 3-4/5 strength in lower extremities bilaterally--either due to true weakness or due to medication effect of drowsiness and poor effort.) Psych Exam: Positive: Memory Intact, Oriented x 3, Other (Flat affect. In and out of mentation due to drowsiness from medication. Unable to determine more. ) Vital Signs Vital Signs Date Time Temp Pulse Resp B/P (MAP) Pulse Ox O2 Delivery O2 Flow Rate FiO2 10/01/16 08:41 100.1 79 20 120/84 (96) 97 Nasal Cannula 2.0 Laboratory Data Labs 24H Laboratory Tests 2 09/30/16 17:10: White Blood Count 5.5, Red Blood Count 3.85L, Hemoglobin 12.7L, Hematocrit 37.3L , Mean Corpuscular Volume 96.9H, Mean Corpuscular Hemoglobin 33.1H, Mean Corpuscular Hemoglobin Concent 34.1, Red Cell Distribution Width 13.1, Platelet Count 120L, Neutrophils (%) (Auto) 81.3H, Lymphocytes (%) (Auto) 9.2L, Monocytes (%) (Auto) 6.5H, Eosinophils (%) (Auto) 0.3, Basophils (%) (Auto) 0.9 , Neutrophils # (Auto) 4.5, Lymphocytes # (Auto) 0.5L, Monocytes # (Auto) 0.4, Eosinophils # (Auto) 0.0, Basophils # (Auto) 0.0, Large Unclassified Cells % 1.7 , Large Unclassified Cells # 0.1, Anion Gap 20H, Glomerular Filtration Rate > 60.0, Blood Urea Nitrogen 6L, Creatinine 0.94, Sodium Level 139, Potassium Level 3.4L, Chloride Level 98, Carbon Dioxide Level 21, Calcium Level 9.2, Total Creatine Kinase 132, Creatine Kinase MB 2.1, Creatine Kinase MB Relative Index 1.59, Troponin I 0.05, Thyroid Stimulating Hormone (TSH) 2.130, Ethyl Alcohol Level < 0.003 09/30/16 19:59: Blood Gas Bicarbonate Standard 27.5H, Arterial Blood pH 7.512H, Arterial Blood Partial Pressure CO2 33.1L, Arterial Blood Partial Pressure O2 140.2H, Arterial Blood Total CO2 27.0, Arterial Blood HCO3 25.9, Arterial Blood Base Excess 3.3H , Arterial Blood Oxygen Saturation 99.1H 10/01/16 04:36: White Blood Count 5.6, Red Blood Count 3.84L, Hemoglobin 12.6L, Hematocrit 37.1L , Mean Corpuscular Volume 96.6H, Mean Corpuscular Hemoglobin 32.8, Mean Corpuscular Hemoglobin Concent 34.0, Red Cell Distribution Width 13.2, Platelet Count 119L, Neutrophils (%) (Auto) 66.4H, Lymphocytes (%) (Auto) 21.8L, Monocytes (%) (Auto) 6.3H, Eosinophils (%) (Auto) 1.9, Basophils (%) (Auto) 0.6 , Neutrophils # (Auto) 3.7, Lymphocytes # (Auto) 1.2L, Monocytes # (Auto) 0.4, Eosinophils # (Auto) 0.1, Basophils # (Auto) 0.0, Large Unclassified Cells % 2.9 , Large Unclassified Cells # 0.2, Anion Gap 10, Glomerular Filtration Rate > 60.0, Blood Urea Nitrogen 4L, Creatinine 0.39#L, Sodium Level 140, Potassium Level 3.0L, Chloride Level 102, Carbon Dioxide Level 28, Calcium Level 8.3L, Aspartate Amino Transf (AST/SGOT) 78H, Alanine Aminotransferase (ALT/SGPT) 52, Alkaline Phosphatase 63, Total Bilirubin 1.3H, Total Protein 6.4, Albumin 3.4, Magnesium Level 1.5L, Albumin/Globulin Ratio 1.13 CBC/BMP Laboratory Tests 09/30/16 17:10 Red Blood Count 3.85 L, Mean Corpuscular Volume 96.9 H, Mean Corpuscular Hemoglobin 33.1 H, Mean Corpuscular Hemoglobin Concent 34.1, Red Cell Distribution Width 13.1, Neutrophils (%) (Auto) 81.3 H, Lymphocytes (%) (Auto) 9.2 L, Monocytes (%) (Auto) 6.5 H, Eosinophils (%) (Auto) 0.3, Basophils (%) ( Auto) 0.9, Neutrophils # (Auto) 4.5, Lymphocytes # (Auto) 0.5 L, Monocytes # ( Auto) 0.4, Eosinophils # (Auto) 0.0, Basophils # (Auto) 0.0, Calcium Level 9.2 10/01/16 04:36 Red Blood Count 3.84 L, Mean Corpuscular Volume 96.6 H, Mean Corpuscular Hemoglobin 32.8, Mean Corpuscular Hemoglobin Concent 34.0, Red Cell Distribution Width 13.2, Neutrophils (%) (Auto) 66.4 H, Lymphocytes (%) (Auto) 21.8 L, Monocytes (%) (Auto) 6.3 H, Eosinophils (%) (Auto) 1.9, Basophils (%) ( Auto) 0.6, Neutrophils # (Auto) 3.7, Lymphocytes # (Auto) 1.2 L, Monocytes # ( Auto) 0.4, Eosinophils # (Auto) 0.1, Basophils # (Auto) 0.0, Calcium Level 8.3 L , Aspartate Amino Transf (AST/SGOT) 78 H, Alanine Aminotransferase (ALT/SGPT) 52 , Alkaline Phosphatase 63, Total Bilirubin 1.3 H, Total Protein 6.4, Albumin 3.4 Plan / VTE VTE Prophylaxis Ordered?: Yes (SC lovenox 40 units daily) AUSTYN ELIZABETH OGME-1 Oct 01, 2016 10:59
[2016-10-02] VITALS: BP 128/25
[2016-10-02] MEDS: IPRATROPIUM 0.5MG/ALBUTEROL 2.5MG INH SOL UD 3ML (DUONEB)(J7620) NEB SCH ×4 (01:55→19:56)
[2016-10-02] MEDS: NS 1,000 ML IV SCH ×3 (02:54→21:52)
[2016-10-02 04:56] LABS: BASO % 0.3 % (0.0-1.0); EOS # 0.2 K/mm3 (0.0-0.50); EOS % 3.2 % (0.0-3.0); LARGE UNSTAINED CELL # 0.1 K/mm3 (0.0-0.4); LARGE UNSTAINED CELL % 2.2 % (0.0-4.0); LYMPH # 1.4 K/mm3 (1.5-4.5); MEAN CORPUSCULAR HEMOGLOBIN 33.2 pg (27.0-33.0); MEAN CORPUSCULAR HGB CONC 34.2 g/dl (32.0-36.5); MEAN CORPUSCULAR VOLUME 96.9 fl (80.0-96.0); MONO # 0.3 K/mm3 (0.0-0.8); MONO % 4.8 % (0.0-5.0); NEUTROPHILS % 68.5 % (36.0-66.0); RED CELL DISTRIBUTION WIDTH 13.4 % (11.5-14.5); WHITE BLOOD COUNT 5.8 K/mm3 (4.0-10.0)
[2016-10-02 05:09] LABS: ALBUMIN 3.1 GM/DL (3.2-5.2); ALBUMIN/GLOBULIN RATIO 1.11 (1.00-1.93); ALKALINE PHOSPHATASE 55 U/L (45-117); ALT/SGPT 46 U/L (12-78); ANION GAP 10 MEQ/L (8-16); AST/SGOT 56 U/L (15-37); BILIRUBIN,TOTAL 0.9 MG/DL (0.2-1.0); BLOOD UREA NITROGEN 3 MG/DL (7-18); CALCIUM LEVEL 7.8 MG/DL (8.5-10.1); CARBON DIOXIDE LEVEL 25 MEQ/L (21-32); CHLORIDE LEVEL 107 MEQ/L (98-107); GLOMERULAR FILTRATION RATE > 60.0 (>56); GLUCOSE, FASTING 114 MG/DL (70-105); MAGNESIUM LEVEL 1.6 MG/DL (1.8-2.4); POTASSIUM SERUM 3.3 MEQ/L (3.5-5.1); SODIUM LEVEL 142 MEQ/L (136-145); TOTAL PROTEIN 5.9 GM/DL (6.4-8.2)
[2016-10-02 05:36] LABS: PLATELET COUNT, AUTOMATED 98 k/mm3 (150-450)
[2016-10-02] MEDS: OXAZEPAM 10 MG CAP PO PRN ×3 (06:49→23:14)
--- NOTE | 2016-10-02 07:26 | IPNPDOC ---
Subjective Date Seen The patient was seen on 10/02/16. Subjective Chief Complaint/HPI The patient is a 51-year-old male admitted with a reason for visit of Syncope. Events since last encounter Mr. Castillo states he feels well today, though he feels a bit more tremulous in his upper extremities. He would like to try to get up and walk today. Constitutional: Denies: Chills, Fever ENT: Denies: Head Aches Pulmonary: Denies: Dyspnea, Cough Cardiovascular: Denies: Chest Pain, Palpitations, Orthopnea, Lt Headedness Gastrointestinal: Denies: Nausea, Vomiting, Abdominal Pain, Diarrhea, Constipation Genitourinary: Denies: Dysuria Musculoskeletal: Denies: Neck Pain, Back Pain Neurological: Denies: Weakness, Confusion Objective Physical Examination General Exam: Positive: Alert, Cooperative, No Acute Distress Eye Exam: Positive: PERRLA, Conjunctiva & lids normal ENT Exam: Positive: Mucous membr. moist/pink Neck Exam: Positive: Supple Chest Exam: Positive: Diminished, Negative: Rales, Rhonchi, Wheezing Heart Exam: Positive: Rate Normal, Normal S1, Normal S2, Negative: Murmurs, Rubs Telemetry: Positive: No significant arrhythmia Abdomen Exam: Positive: Normal bowel sounds, Soft, Negative: Tenderness Extremity Exam: Negative: Edema, Normal pulses, Tenderness, Swelling Skin Exam: Positive: Nl turgor and temperature, Negative: Rash Neuro Exam: Positive: Normal Speech, Strength at 5/5 X4 ext (Initially, strength in left leg is 4+/5, however when ankle, knee, and hip joints are tested separately with encouragement, strength is 5/5 on left; strength is 5/5 on right), Normal Tone, Cranial Nerves 3-12 NL, Reflexes 2+, Other (Intention tremor of bilateral upper extremities), Negative: Sensation Intact (patient states bottoms of feet are chronically numb; otherwise sensation is intact) Psych Exam: Positive: Mental status NL, Mood NL, Memory Intact, Oriented x 3 Assessment /Plan Problems (1) Syncope Status: Acute Response to Treatment: Improving Problem Text: Patient has had no further episodes of syncope and denies lightheadedness. - Recheck Orthostatic BP this morning - See below - See #2 below (2) Rate-dependent bundle branch block Status: Chronic Problem Text: He had intermittent tachycardia yesterday afternoon (10/01); multiple ECGs were obtained and were reviewed by Dr. Rodriguez, who found patient to have a rate-induced LBBB. Rhythm has been normal overnight - Monitor on Telemetry x 72H per Dr. Rodriguez's recommendation - Echocardiogram ordered on 10/01/16; results pending - Replete potassium and magnesium and monitor electrolytes daily (3) Orthostatic hypotension Status: Acute Problem Text: Recheck Orthostatics today - Continue IV NS; can d/c if Orthostatics are negative. (4) Weakness Status: Acute Problem Text: Patient denies focal weakness today. - Not safe for discharge per PT due to overall shakiness and weakness - Continue PT - will ask for PT eval prior to allowing him to ambulate independently (5) Alcohol dependence Status: Chronic Problem Text: Patient has history of alcohol use disorder and has been to rehab and detox in the past. - Monitor CIWA scoring - Serax and ativan ordered PRN agitation/restlessness; he has received 3 doses of serax since admission. (6) COPD (chronic obstructive pulmonary disease) Status: Chronic Response to Treatment: Stable Problem Text: Lungs are clear today. O2 sat 97% on 2 L/min. Continue duonebs. (7) Hypokalemia Status: Acute Problem Text: Increase PO potassium to 40 mEq BID (8) Hypomagnesemia Problem Text: Mag run x1 today (9) Anemia Status: Chronic Response to Treatment: Worse Problem Text: Likely anemia of chronic disease. H/H trending down - likely dilutional from IVF rehydration. - Monitor CBC daily Plan/VTE VTE Prophylaxis Ordered?: Yes (lovenox) VS, I&O, 24H, Fishbone Vital Signs/I&O Vital Signs Date Time Temp Pulse Resp B/P (MAP) Pulse Ox O2 Delivery O2 Flow Rate FiO2 10/02/16 04:00 Room Air 10/02/16 01:55 77 10/02/16 00:00 98.2 20 128/25 (59) 95 2.0 I&O- Last 24 Hours up to 6 AM 10/02/16 06:00 Intake Total 3286 ml Output Total 1600 ml Balance 1686 ml Laboratory Data 24H LABS Laboratory Tests 2 10/01/16 14:49: Anion Gap 10, Glomerular Filtration Rate > 60.0, Blood Urea Nitrogen 2L, Creatinine 0.55L, Sodium Level 140, Potassium Level 3.5, Chloride Level 103, Carbon Dioxide Level 27, Calcium Level 8.2L, Total Creatine Kinase 198, Magnesium Level 2.0, Creatine Kinase MB 2.2, Creatine Kinase MB Relative Index 1.11, Troponin I 0.05 10/02/16 04:39: Anion Gap 10, Glomerular Filtration Rate > 60.0, Blood Urea Nitrogen 3L, Creatinine 0.40L, Sodium Level 142, Potassium Level 3.3L, Chloride Level 107, Carbon Dioxide Level 25, Calcium Level 7.8L, Magnesium Level 1.6L, White Blood Count 5.8, Red Blood Count 3.28L, Hemoglobin 10.9L, Hematocrit 31.8L, Mean Corpuscular Volume 96.9H, Mean Corpuscular Hemoglobin 33.2H, Mean Corpuscular Hemoglobin Concent 34.2, Red Cell Distribution Width 13.4, Platelet Count 98L, Neutrophils (%) (Auto) 68.5H, Lymphocytes (%) (Auto) 21.0L, Monocytes (%) (Auto ) 4.8, Eosinophils (%) (Auto) 3.2H, Basophils (%) (Auto) 0.3, Neutrophils # ( Auto) 4.0, Lymphocytes # (Auto) 1.4L, Monocytes # (Auto) 0.3, Eosinophils # ( Auto) 0.2, Basophils # (Auto) 0.0, Large Unclassified Cells % 2.2, Large Unclassified Cells # 0.1, Aspartate Amino Transf (AST/SGOT) 56H, Alanine Aminotransferase (ALT/SGPT) 46, Alkaline Phosphatase 55, Total Bilirubin 0.9, Total Protein 5.9L, Albumin 3.1L, Albumin/Globulin Ratio 1.11 CBC/BMP Laboratory Tests 10/01/16 14:49 Calcium Level 8.2 L, Total Creatine Kinase 198 10/02/16 04:39 Calcium Level 7.8 L, Red Blood Count 3.28 L, Mean Corpuscular Volume 96.9 H, Mean Corpuscular Hemoglobin 33.2 H, Mean Corpuscular Hemoglobin Concent 34.2, Red Cell Distribution Width 13.4, Neutrophils (%) (Auto) 68.5 H, Lymphocytes (% ) (Auto) 21.0 L, Monocytes (%) (Auto) 4.8, Eosinophils (%) (Auto) 3.2 H, Basophils (%) (Auto) 0.3, Neutrophils # (Auto) 4.0, Lymphocytes # (Auto) 1.4 L, Monocytes # (Auto) 0.3, Eosinophils # (Auto) 0.2, Basophils # (Auto) 0.0, Aspartate Amino Transf (AST/SGOT) 56 H, Alanine Aminotransferase (ALT/SGPT) 46, Alkaline Phosphatase 55, Total Bilirubin 0.9, Total Protein 5.9 L, Albumin 3.1 L KAYDEN JARA MD Oct 02, 2016 07:26
[2016-10-02 08:00] VITALS: BP 116/76
[2016-10-02] MEDS ORDERED: MAG SULF 1GM/100ML (MAG RUN) 1 GM in APPROPRIATE DILUENT 1 EA IV ONE (08:00)
[2016-10-02] MEDS: ENOXAPARIN 40 MG/0.4 ML SYRINGE (J1650) SC SCH (08:02)
[2016-10-02] MEDS: POTASSIUM CHLORIDE 10 MEQ SR TABLET PO SCH ×2 (08:02→20:44)
[2016-10-02] MEDS: THIAMINE 100 MG TAB PO SCH (08:02)
[2016-10-02] MEDS: FOLIC ACID 1 MG TAB PO SCH (08:02)
[2016-10-02 12:00] VITALS: BP 129/87
[2016-10-02] MEDS: NICOTINE 21MG/24HR 1 EA TRANSDERMAL TD SCH (15:53)
[2016-10-02 16:00] VITALS: BP 127/84
[2016-10-02 17:15] VITALS: BP 147/75
[2016-10-02 19:43] VITALS: BP 150/91
[2016-10-02] MEDS: ACETAMINOPHEN TAB 650MG DOSE (2X325MG) PO PRN (19:49)
--- NOTE | 2016-10-02 21:54 | ECGEPIP ---
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
--- NOTE | 2016-10-02 21:55 | ECGEPIP ---
Stationary ECG Study 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
[2016-10-03] VITALS (9 sets, daily range): BP systolic 100–149; BP diastolic 78–98
[2016-10-03] MEDS: IPRATROPIUM 0.5MG/ALBUTEROL 2.5MG INH SOL UD 3ML (DUONEB)(J7620) NEB SCH ×5 (01:30→19:48)
[2016-10-03 04:56] LABS: BASO % 0.5 % (0.0-1.0); EOS # 0.2 K/mm3 (0.0-0.50); EOS % 4.3 % (0.0-3.0); LARGE UNSTAINED CELL # 0.2 K/mm3 (0.0-0.4); LARGE UNSTAINED CELL % 3.8 % (0.0-4.0); LYMPH # 1.2 K/mm3 (1.5-4.5); LYMPH % 21.3 % (24.0-44.0); MEAN CORPUSCULAR HGB CONC 33.8 g/dl (32.0-36.5); MEAN CORPUSCULAR VOLUME 97.7 fl (80.0-96.0); MONO # 0.3 K/mm3 (0.0-0.8); MONO % 5.4 % (0.0-5.0); NEUTROPHILS # 3.8 K/mm3 (1.8-7.7); NEUTROPHILS % 64.8 % (36.0-66.0); PLATELET COUNT, AUTOMATED 126 k/mm3 (150-450); RED CELL DISTRIBUTION WIDTH 13.2 % (11.5-14.5); WHITE BLOOD COUNT 5.8 K/mm3 (4.0-10.0)
[2016-10-03 05:00] LABS: ALBUMIN 3.2 GM/DL (3.2-5.2); ALKALINE PHOSPHATASE 66 U/L (45-117); ALT/SGPT 46 U/L (12-78); ANION GAP 9 MEQ/L (8-16); AST/SGOT 54 U/L (15-37); BILIRUBIN,TOTAL 0.7 MG/DL (0.2-1.0); BLOOD UREA NITROGEN 4 MG/DL (7-18); CALCIUM LEVEL 8.4 MG/DL (8.5-10.1); CARBON DIOXIDE LEVEL 24 MEQ/L (21-32); CHLORIDE LEVEL 107 MEQ/L (98-107); CREATININE FOR GFR 0.41 MG/DL (0.70-1.30); GLOMERULAR FILTRATION RATE > 60.0 (>56); GLUCOSE, FASTING 111 MG/DL (70-105); MAGNESIUM LEVEL 1.7 MG/DL (1.8-2.4); POTASSIUM SERUM 3.9 MEQ/L (3.5-5.1); SODIUM LEVEL 140 MEQ/L (136-145); TOTAL PROTEIN 6.4 GM/DL (6.4-8.2)
[2016-10-03] MEDS: OXAZEPAM 10 MG CAP PO PRN ×3 (05:38→21:11)
[2016-10-03] MEDS: NS 1,000 ML IV SCH (06:35)
[2016-10-03] MEDS: FOLIC ACID 1 MG TAB PO SCH (07:51)
[2016-10-03] MEDS: THIAMINE 100 MG TAB PO SCH (07:52)
[2016-10-03] MEDS: POTASSIUM CHLORIDE 10 MEQ SR TABLET PO SCH ×2 (07:52→21:11)
[2016-10-03] MEDS: ENOXAPARIN 40 MG/0.4 ML SYRINGE (J1650) SC SCH (07:52)
[2016-10-03] MEDS: NICOTINE 21MG/24HR 1 EA TRANSDERMAL TD SCH (07:53)
--- NOTE | 2016-10-03 07:57 | IPNPDOC ---
Subjective Date Seen The patient was seen on 10/03/16. Subjective Chief Complaint/HPI The patient is a 51-year-old male admitted with a reason for visit of Syncope. Events since last encounter Pt denies any new issues. Denies CP, SOB,, Abd pain. Constitutional: Denies: Chills, Fever Pulmonary: Denies: Dyspnea Cardiovascular: Denies: Chest Pain Gastrointestinal: Denies: Abdominal Pain Objective Physical Examination General Exam: Positive: Cooperative, Other (was in and out of alertness as he would fall asleep while asking him questions. But mental status was normal. Just some decreased mentation at times as he would nod off likely due to medications. ), Negative: No Acute Distress Eye Exam: Positive: PERRLA, Conjunctiva & lids normal, EOMI, Negative: Sclera icteric ENT Exam: Positive: Atraumatic, Mucous membr. moist/pink, Pharynx Normal, Tongue Midline, Negative: Pharyngeal Edema Neck Exam: Positive: Supple, Negative: JVD, thyromegaly, Lymphadenopathy Chest Exam: Positive: Wheezing (diffuse and prominent wheezing throughout lung garcia in both inspiratory and expiratory phase appreciated) Heart Exam: Positive: Tachycardic, Regular Rhythm, Normal S1, Normal S2, Negative: Gallops, Murmurs, Rubs Telemetry: Positive: No significant arrhythmia Abdomen Exam: Positive: Normal bowel sounds, Soft, Other (nondistended), Negative: Tenderness, Hepatospenomegaly Extremity Exam: Positive: Normal pulses, Other (very cool feet bilaterally.), Negative: Clubbing, Cyanosis, Edema Skin Exam: Negative: Rash, Breakdown Neuro Exam: Positive: Normal Speech, Sensation Intact, Other (CN 2-12 intact bilaterally. 5/5 strength in upper extremities bilaterally. 3-4/5 strength in lower extremities bilaterally--either due to true weakness or due to medication effect of drowsiness and poor effort.) Psych Exam: Positive: Memory Intact, Oriented x 3 Assessment /Plan Problems (1) Syncope Status: Acute Response to Treatment: Improving Problem Text: 10/03 - Pt denies any further syncope. Denies dizziness. Patient has had no further episodes of syncope and denies lightheadedness. 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 Rodriguez, who found patient to have a rate- induced LBBB. Rhythm has been normal overnight - Monitor on Telemetry x 72H per Dr. Rodriguez's recommendation - Echocardiogram ordered on 10/01/16; results pending - Replete potassium and magnesium and monitor electrolytes daily (3) Orthostatic hypotension Status: Acute Problem Text: 10/03 - On IVF Recheck Orthostatics today - Continue IV NS; can d/c if Orthostatics are negative. (4) Weakness Status: Acute Problem Text: Patient denies focal weakness today. - Not safe for discharge per PT due to overall shakiness and weakness - Continue PT - will ask for PT eval prior to allowing him to ambulate independently (5) Alcohol dependence Status: Chronic Problem Text: Patient has history of alcohol use disorder and has been to rehab and detox in the past. - Monitor CIWA scoring - Serax and ativan ordered PRN agitation/restlessness; he has received 3 doses of serax since admission. (6) COPD (chronic obstructive pulmonary disease) Status: Chronic Response to Treatment: Stable Problem Text: 10/03 - O2Sat 97% on RA Lungs are clear today. O2 sat 97% on 2 L/min. Continue duonebs. (7) Hypokalemia Status: Acute Problem Text: 10/03 - K 3.9. Getting KCl 40 meq BID Increase PO potassium to 40 mEq BID (8) Hypomagnesemia Problem Text: 10/03 - Mg 1.7. Give another Mag run today. Mag run x1 today (9) Anemia Status: Chronic Response to Treatment: Worse Problem Text: 10/03 - Hgb up some today to 11.7 (10.9 yesterday). Monitor. Likely anemia of chronic disease. H/H trending down - likely dilutional from IVF rehydration. - Monitor CBC daily Plan/VTE VTE Prophylaxis Ordered?: Yes (SC lovenox 40 units daily) VS, I&O, 24H, Fishbone Vital Signs/I&O Vital Signs Date Time Temp Pulse Resp B/P (MAP) Pulse Ox O2 Delivery O2 Flow Rate FiO2 10/03/16 04:00 98 135/98 10/03/16 04:00 99.1 16 97 Room Air 10/02/16 20:00 2.0 I&O- Last 24 Hours up to 6 AM 10/03/16 06:00 Intake Total 5005 ml Output Total 6395 ml Balance -1390 ml Laboratory Data 24H LABS Laboratory Tests 2 10/03/16 04:35: White Blood Count 5.8, Red Blood Count 3.56L, Hemoglobin 11.7L, Hematocrit 34.7L , Mean Corpuscular Volume 97.7H, Mean Corpuscular Hemoglobin 33.0, Mean Corpuscular Hemoglobin Concent 33.8, Red Cell Distribution Width 13.2, Platelet Count 126L, Neutrophils (%) (Auto) 64.8, Lymphocytes (%) (Auto) 21.3L, Monocytes (%) (Auto) 5.4H, Eosinophils (%) (Auto) 4.3H, Basophils (%) (Auto) 0.5 , Neutrophils # (Auto) 3.8, Lymphocytes # (Auto) 1.2L, Monocytes # (Auto) 0.3, Eosinophils # (Auto) 0.2, Basophils # (Auto) 0.0, Large Unclassified Cells % 3.8 , Large Unclassified Cells # 0.2, Anion Gap 9, Glomerular Filtration Rate > 60.0 , Blood Urea Nitrogen 4L, Creatinine 0.41L, Sodium Level 140, Potassium Level 3.9, Chloride Level 107, Carbon Dioxide Level 24, Calcium Level 8.4L, Aspartate Amino Transf (AST/SGOT) 54H, Alanine Aminotransferase (ALT/SGPT) 46, Alkaline Phosphatase 66, Total Bilirubin 0.7, Total Protein 6.4, Albumin 3.2, Magnesium Level 1.7L, Albumin/Globulin Ratio 1.00 CBC/BMP Laboratory Tests 10/03/16 04:35 Red Blood Count 3.56 L, Mean Corpuscular Volume 97.7 H, Mean Corpuscular Hemoglobin 33.0, Mean Corpuscular Hemoglobin Concent 33.8, Red Cell Distribution Width 13.2, Neutrophils (%) (Auto) 64.8, Lymphocytes (%) (Auto) 21.3 L, Monocytes (%) (Auto) 5.4 H, Eosinophils (%) (Auto) 4.3 H, Basophils (%) (Auto) 0.5, Neutrophils # (Auto) 3.8, Lymphocytes # (Auto) 1.2 L, Monocytes # ( Auto) 0.3, Eosinophils # (Auto) 0.2, Basophils # (Auto) 0.0, Calcium Level 8.4 L , Aspartate Amino Transf (AST/SGOT) 54 H, Alanine Aminotransferase (ALT/SGPT) 46 , Alkaline Phosphatase 66, Total Bilirubin 0.7, Total Protein 6.4, Albumin 3.2 Nahid Harman RPA-Nakia Oct 03, 2016 07:57
[2016-10-03] MEDS ORDERED: MAG SULF 1GM/100ML (MAG RUN) 1 GM in APPROPRIATE DILUENT 1 EA IV ONE (08:00)
[2016-10-03] MEDS: LORazepam 2 MG/ML VIAL (J2060) IV PRN (09:35)
[2016-10-04] VITALS (10 sets, daily range): BP systolic 116–149; BP diastolic 74–94
[2016-10-04] MEDS: IPRATROPIUM 0.5MG/ALBUTEROL 2.5MG INH SOL UD 3ML (DUONEB)(J7620) NEB SCH ×4 (01:59→21:00)
[2016-10-04] MEDS: LORazepam 2 MG/ML VIAL (J2060) IV PRN ×4 (02:33→18:05)
[2016-10-04 05:41] LABS: BASO % 0.4 % (0.0-1.0); EOS # 0.3 K/mm3 (0.0-0.50); EOS % 5.5 % (0.0-3.0); LARGE UNSTAINED CELL # 0.3 K/mm3 (0.0-0.4); LARGE UNSTAINED CELL % 4.5 % (0.0-4.0); LYMPH # 1.3 K/mm3 (1.5-4.5); MEAN CORPUSCULAR HEMOGLOBIN 33.4 pg (27.0-33.0); MEAN CORPUSCULAR HGB CONC 33.9 g/dl (32.0-36.5); MEAN CORPUSCULAR VOLUME 98.5 fl (80.0-96.0); MONO # 0.5 K/mm3 (0.0-0.8); MONO % 8.7 % (0.0-5.0); NEUTROPHILS # 3.7 K/mm3 (1.8-7.7); NEUTROPHILS % 59.9 % (36.0-66.0); PLATELET COUNT, AUTOMATED 158 k/mm3 (150-450); RED CELL DISTRIBUTION WIDTH 13.2 % (11.5-14.5); WHITE BLOOD COUNT 6.2 K/mm3 (4.0-10.0)
[2016-10-04 05:53] LABS: ALBUMIN 3.5 GM/DL (3.2-5.2); ALKALINE PHOSPHATASE 64 U/L (45-117); ALT/SGPT 61 U/L (12-78); ANION GAP 8 MEQ/L (8-16); AST/SGOT 68 U/L (15-37); BILIRUBIN,TOTAL 0.9 MG/DL (0.2-1.0); BLOOD UREA NITROGEN 6 MG/DL (7-18); CALCIUM LEVEL 9.6 MG/DL (8.5-10.1); CARBON DIOXIDE LEVEL 27 MEQ/L (21-32); CHLORIDE LEVEL 105 MEQ/L (98-107); CREATININE FOR GFR 0.47 MG/DL (0.70-1.30); GLOMERULAR FILTRATION RATE > 60.0 (>56); GLUCOSE, FASTING 94 MG/DL (70-105); POTASSIUM SERUM 4.6 MEQ/L (3.5-5.1); SODIUM LEVEL 140 MEQ/L (136-145)
[2016-10-04] MEDS: NICOTINE 21MG/24HR 1 EA TRANSDERMAL TD SCH (08:08)
[2016-10-04] MEDS: FOLIC ACID 1 MG TAB PO SCH (08:08)
[2016-10-04] MEDS: THIAMINE 100 MG TAB PO SCH (08:08)
[2016-10-04] MEDS: POTASSIUM CHLORIDE 10 MEQ SR TABLET PO SCH (08:09)
[2016-10-04] MEDS: ENOXAPARIN 40 MG/0.4 ML SYRINGE (J1650) SC SCH (08:16)
--- NOTE | 2016-10-04 08:48 | IPNPDOC ---
Subjective Date Seen The patient was seen on 10/04/16. Subjective Chief Complaint/HPI The patient is a 51-year-old male admitted with a reason for visit of Syncope. Events since last encounter Pt states he is feeling better. Denies any more syncopal episodes. Denies CP, SOB, Abd pain. Constitutional: Denies: Chills, Fever Pulmonary: Denies: Dyspnea Cardiovascular: Denies: Chest Pain, Palpitations Gastrointestinal: Denies: Abdominal Pain Objective Physical Examination General Exam: Positive: Cooperative, Other (was in and out of alertness as he would fall asleep while asking him questions. But mental status was normal. Just some decreased mentation at times as he would nod off likely due to medications. ), Negative: No Acute Distress Eye Exam: Positive: PERRLA, Conjunctiva & lids normal, EOMI, Negative: Sclera icteric ENT Exam: Positive: Atraumatic, Mucous membr. moist/pink, Pharynx Normal, Tongue Midline, Negative: Pharyngeal Edema Neck Exam: Positive: Supple, Negative: JVD, thyromegaly, Lymphadenopathy Chest Exam: Positive: Wheezing (diffuse and prominent wheezing throughout lung garcia in both inspiratory and expiratory phase appreciated) Heart Exam: Positive: Tachycardic, Regular Rhythm, Normal S1, Normal S2, Negative: Gallops, Murmurs, Rubs Telemetry: Positive: No significant arrhythmia Abdomen Exam: Positive: Normal bowel sounds, Soft, Negative: Tenderness, Hepatospenomegaly Extremity Exam: Positive: Normal pulses, Other (very cool feet bilaterally.), Negative: Clubbing, Cyanosis, Edema Skin Exam: Negative: Rash, Breakdown Neuro Exam: Positive: Normal Speech, Sensation Intact Psych Exam: Positive: Memory Intact, Oriented x 3 Assessment /Plan Problems (1) Syncope Status: Acute Response to Treatment: Improving Problem Text: 10/04 - Pt denies any further syncope. Will order ECHO. Cardiology consulted - I spoke to Dr Lutz who has seen pt in the past. 10/03 - Pt denies any further syncope. Denies dizziness. Patient has had no further episodes of syncope and denies lightheadedness. 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 Cardiology consulted - I spoke to Dr Lutz who has seen pt in the past. 10/03 - pt on telemetry He had intermittent tachycardia yesterday afternoon (10/01); multiple ECGs were obtained and were reviewed by Dr. Rodriguez, who found patient to have a rate- induced LBBB. Rhythm has been normal overnight - Monitor on Telemetry x 72H per Dr. Rodriguez's recommendation - Echocardiogram ordered on 10/01/16; results pending - Replete potassium and magnesium and monitor electrolytes daily (3) Orthostatic hypotension Status: Acute Problem Text: 10/04 - Stable off IVF 10/03 - On IVF Recheck Orthostatics today - Continue IV NS; can d/c if Orthostatics are negative. (4) Weakness Status: Acute Problem Text: Patient denies focal weakness today. - Not safe for discharge per PT due to overall shakiness and weakness - Continue PT - will ask for PT eval prior to allowing him to ambulate independently (5) Alcohol dependence Status: Chronic Problem Text: 10/04 - Patient has history of alcohol use disorder and has been to rehab and detox in the past. Has Serax and Ativan ordered PRN. Patient has history of alcohol use disorder and has been to rehab and detox in the past. - Monitor CIWA scoring - Serax and ativan ordered PRN agitation/restlessness; he has received 3 doses of serax since admission. (6) COPD (chronic obstructive pulmonary disease) Status: Chronic Response to Treatment: Stable Problem Text: 10/04 - O2Sat 98% on RA 10/03 - O2Sat 97% on RA Lungs are clear today. O2 sat 97% on 2 L/min. Continue duonebs. (7) Hypokalemia Status: Acute Problem Text: 10/03 - K 4.6. Getting KCl 40 meq BID. Will stop the KCL. Monitor. 10/03 - K 3.9. Getting KCl 40 meq BID Increase PO potassium to 40 mEq BID (8) Hypomagnesemia Problem Text: 10/04 - Mg 2.0. 10/03 - Mg 1.7. Give another Mag run today. Mag run x1 today (9) Anemia Status: Chronic Response to Treatment: Worse Problem Text: 10/04 - Hgb up today to 12.5 (11.7 yesterday). Monitor. 10/03 - Hgb up some today to 11.7 (10.9 yesterday). Monitor. Likely anemia of chronic disease. H/H trending down - likely dilutional from IVF rehydration. - Monitor CBC daily Plan/VTE VTE Prophylaxis Ordered?: Yes (SC lovenox 40 units daily) VS, I&O, 24H, Fishbone Vital Signs/I&O Vital Signs Date Time Temp Pulse Resp B/P (MAP) Pulse Ox O2 Delivery O2 Flow Rate FiO2 10/04/16 04:30 106 136/90 10/04/16 04:00 98.3 18 98 Room Air 10/04/16 00:00 3.0 I&O- Last 24 Hours up to 6 AM 10/04/16 05:59 Intake Total 2685 ml Output Total 2100 ml Balance 585 ml Laboratory Data 24H LABS Laboratory Tests 2 10/04/16 05:16: White Blood Count 6.2, Red Blood Count 3.75L, Hemoglobin 12.5L, Hematocrit 37.0L , Mean Corpuscular Volume 98.5H, Mean Corpuscular Hemoglobin 33.4H, Mean Corpuscular Hemoglobin Concent 33.9, Red Cell Distribution Width 13.2, Platelet Count 158, Neutrophils (%) (Auto) 59.9, Lymphocytes (%) (Auto) 21.0L, Monocytes (%) (Auto) 8.7H, Eosinophils (%) (Auto) 5.5H, Basophils (%) (Auto) 0.4, Neutrophils # (Auto) 3.7, Lymphocytes # (Auto) 1.3L, Monocytes # (Auto) 0.5, Eosinophils # (Auto) 0.3, Basophils # (Auto) 0.0, Large Unclassified Cells % 4.5H, Large Unclassified Cells # 0.3, Anion Gap 8, Glomerular Filtration Rate > 60.0, Blood Urea Nitrogen 6L, Creatinine 0.47L, Sodium Level 140, Potassium Level 4.6, Chloride Level 105, Carbon Dioxide Level 27, Calcium Level 9.6, Aspartate Amino Transf (AST/SGOT) 68H, Alanine Aminotransferase (ALT/SGPT) 61, Alkaline Phosphatase 64, Total Bilirubin 0.9, Total Protein 7.0, Albumin 3.5, Magnesium Level 2.0, Albumin/Globulin Ratio 1.00 CBC/BMP Laboratory Tests 10/04/16 05:16 Red Blood Count 3.75 L, Mean Corpuscular Volume 98.5 H, Mean Corpuscular Hemoglobin 33.4 H, Mean Corpuscular Hemoglobin Concent 33.9, Red Cell Distribution Width 13.2, Neutrophils (%) (Auto) 59.9, Lymphocytes (%) (Auto) 21.0 L, Monocytes (%) (Auto) 8.7 H, Eosinophils (%) (Auto) 5.5 H, Basophils (%) (Auto) 0.4, Neutrophils # (Auto) 3.7, Lymphocytes # (Auto) 1.3 L, Monocytes # ( Auto) 0.5, Eosinophils # (Auto) 0.3, Basophils # (Auto) 0.0, Calcium Level 9.6, Aspartate Amino Transf (AST/SGOT) 68 H, Alanine Aminotransferase (ALT/SGPT) 61, Alkaline Phosphatase 64, Total Bilirubin 0.9, Total Protein 7.0, Albumin 3.5 Nahid Harman RPA-C Oct 04, 2016 08:47
[2016-10-04] MEDS: PANTOPRAZOLE 40MG TAB (PROTONIX) PO SCH (09:00)
[2016-10-05] VITALS (10 sets, daily range): BP systolic 95–171; BP diastolic 58–94
[2016-10-05] MEDS: IPRATROPIUM 0.5MG/ALBUTEROL 2.5MG INH SOL UD 3ML (DUONEB)(J7620) NEB SCH ×4 (01:47→19:57)
[2016-10-05 06:15] LABS: BASO % 0.6 % (0.0-1.0); EOS # 0.4 K/mm3 (0.0-0.50); EOS % 6.6 % (0.0-3.0); LARGE UNSTAINED CELL # 0.2 K/mm3 (0.0-0.4); LYMPH # 1.4 K/mm3 (1.5-4.5); LYMPH % 20.6 % (24.0-44.0); MEAN CORPUSCULAR HEMOGLOBIN 32.7 pg (27.0-33.0); MEAN CORPUSCULAR HGB CONC 33.2 g/dl (32.0-36.5); MEAN CORPUSCULAR VOLUME 98.3 fl (80.0-96.0); MONO # 0.6 K/mm3 (0.0-0.8); MONO % 10.4 % (0.0-5.0); NEUTROPHILS # 3.2 K/mm3 (1.8-7.7); NEUTROPHILS % 57.8 % (36.0-66.0); PLATELET COUNT, AUTOMATED 191 k/mm3 (150-450); RED CELL DISTRIBUTION WIDTH 13.6 % (11.5-14.5); WHITE BLOOD COUNT 5.5 K/mm3 (4.0-10.0)
[2016-10-05 06:28] LABS: ALBUMIN 3.4 GM/DL (3.2-5.2); ALBUMIN/GLOBULIN RATIO 0.94 (1.00-1.93); ALKALINE PHOSPHATASE 61 U/L (45-117); ALT/SGPT 84 U/L (12-78); ANION GAP 10 MEQ/L (8-16); AST/SGOT 87 U/L (15-37); BILIRUBIN,TOTAL 0.7 MG/DL (0.2-1.0); BLOOD UREA NITROGEN 10 MG/DL (7-18); CALCIUM LEVEL 9.3 MG/DL (8.5-10.1); CARBON DIOXIDE LEVEL 23 MEQ/L (21-32); CHLORIDE LEVEL 106 MEQ/L (98-107); CREATININE FOR GFR 0.45 MG/DL (0.70-1.30); GLOMERULAR FILTRATION RATE > 60.0 (>56); GLUCOSE, FASTING 98 MG/DL (70-105); MAGNESIUM LEVEL 1.9 MG/DL (1.8-2.4); POTASSIUM SERUM 4.1 MEQ/L (3.5-5.1); SODIUM LEVEL 139 MEQ/L (136-145)
--- NOTE | 2016-10-05 07:39 | ECHO ---
DATE OF PROCEDURE: 10/04/2016 REFERRING PHYSICIAN: Nahid Harman PA-C and Dr. Lex Parish. The study was performed in 10/04/2016 for indication of abnormal echocardiogram (ECG) and syncope. The patient measures 17 inches and weighs 134 pounds. DIMENSIONS: IVS - 0.8 LV - 6.7 LVPW - 1.1 LA - 3.1 Aorta - 3.4 RV - 2.6 FINDINGS: The patient is in sinus tachycardia. Overall quality of the study is good. Left ventricle is moderately dilated and severely globally hypokinetic. There is a dyskinetic septal motion I suspect due to underlying conduction system disease. Overall left ventricular ejection fraction estimated around 15-20%. Right ventricle does not appear enlarged and is normally contractile. Left atrium and right atrium appear grossly normal size. Aortic, mitral, tricuspid valves appear normal. Pulmonic valve was not well seen. No pericardial effusion is noted. Inferior vena cava is on upper limits of normal size and appropriately collapses with respiration indicative of likely normal only mildly elevated central venous pressure. Aortic root and abdominal aorta appear normal. Aortic arch was not visualized. Doppler interrogation reveals no aortic disease. There is trace mitral insufficiency and trace tricuspid insufficiency. Calculated pulmonary artery pressure was within normal limits, but quality of TR jet was poor and consequently this should not be considered reliable. Evaluation of diastolic function based on mitral inflow pattern and tissue Doppler velocities of mitral annulus (E prime septal and lateral velocity is 3.8 and 3.5 cm/s respectively) reveal grade 2 diastolic dysfunction and likely high left ventricular end-diastolic pressure. CONCLUSIONS: 1. Study is of good technical quality. 2. Dilated, globally hypokinetic left ventricle with septal dyskinesis likely due to underlying left bundle branch block (LBBB). Overall left ventricular ejection fraction (LVEF) estimated at 15-20%. 2. At least grade 2 diastolic dysfunction. 3. No hemodynamically significant valvular disease. 4. Probably normal or mildly elevated central venous pressure (CVP), but unable to reliably estimate pulmonary artery pressure. COMMENT: SBE prophylaxis is not recommended. Both ischemic and nonischemic etiology of the patient's cardiomyopathy should be considered. MTDD
[2016-10-05] MEDS: TIOTROPIUM INHALER/CAPSULE (SPIRIVA) INH SCH (08:23)
--- NOTE | 2016-10-05 08:50 | IPNPDOC ---
Subjective Date Seen The patient was seen on 10/05/16. Subjective Chief Complaint/HPI The patient is a 51-year-old male admitted with a reason for visit of Syncope. Events since last encounter Pt denies any new issues. Denies CP, Palp, SOB. Constitutional: Denies: Chills, Fever Pulmonary: Denies: Dyspnea Cardiovascular: Denies: Chest Pain Gastrointestinal: Denies: Abdominal Pain Objective Physical Examination General Exam: Positive: Cooperative, Other (was in and out of alertness as he would fall asleep while asking him questions. But mental status was normal. Just some decreased mentation at times as he would nod off likely due to medications. ), Negative: No Acute Distress Eye Exam: Positive: PERRLA, Conjunctiva & lids normal, EOMI, Negative: Sclera icteric ENT Exam: Positive: Atraumatic, Mucous membr. moist/pink, Pharynx Normal, Tongue Midline, Negative: Pharyngeal Edema Neck Exam: Positive: Supple, Negative: JVD, thyromegaly, Lymphadenopathy Chest Exam: Positive: Wheezing (diffuse and prominent wheezing throughout lung garcia in both inspiratory and expiratory phase appreciated) Heart Exam: Positive: Tachycardic, Regular Rhythm, Normal S1, Normal S2, Negative: Gallops, Murmurs, Rubs Telemetry: Positive: No significant arrhythmia Abdomen Exam: Positive: Normal bowel sounds, Soft, Negative: Tenderness, Hepatospenomegaly Extremity Exam: Positive: Normal pulses, Other (very cool feet bilaterally.), Negative: Clubbing, Cyanosis, Edema Skin Exam: Negative: Rash, Breakdown Neuro Exam: Positive: Normal Speech, Sensation Intact Psych Exam: Positive: Memory Intact, Oriented x 3 Assessment /Plan Problems (1) Syncope Status: Acute Response to Treatment: Improving Problem Text: 10/05 - Pt seen by cardiology. I discussed with Dr Lutz who advises starting Coreg 3.125 mg bid AND Losartan 25 mg daily. Hold parameters. Dr Lutz wants to continue monitoring for a couple more days. Discussed [employer]. ECHO 1. Study is of good technical quality. 2. Dilated, globally hypokinetic left ventricle with septal dyskinesis likely due to underlying left bundle branch block (LBBB). Overall left ventricular ejection fraction (LVEF) estimated at 15-20%. 2. At least grade 2 diastolic dysfunction. 3. No hemodynamically significant valvular disease. 4. Probably normal mildly elevated central venous pressure (CVP), but unable to reliably estimate pulmonary artery pressure. COMMENT: SBE prophylaxis is not recommended. Both ischemic and nonischemic etiology of the patient's cardiomyopathy should be considered. 10/04 - Pt denies any further syncope. Will order ECHO. Cardiology consulted - I spoke to Dr Lutz who has seen pt in the past. 10/03 - Pt denies any further syncope. Denies dizziness. Patient has had no further episodes of syncope and denies lightheadedness. - Recheck Orthostatic BP this morning - See below - See #2 below (2) Rate-dependent bundle branch block Status: Chronic Problem Text: 10/05 - Pt seen by cardiology. I discussed with Dr Lutz who advises starting Coreg 3.125 mg bid AND Losartan 25 mg daily. Hold parameters. Dr Lutz wants to continue monitoring for a couple more days. Discussed [employer]. ECHO 1. Study is of good technical quality. 2. Dilated, globally hypokinetic left ventricle with septal dyskinesis likely due to underlying left bundle branch block (LBBB). Overall left ventricular ejection fraction (LVEF) estimated at 15-20%. 2. At least grade 2 diastolic dysfunction. 3. No hemodynamically significant valvular disease. 4. Probably normal mildly elevated central venous pressure (CVP), but unable to reliably estimate pulmonary artery pressure. COMMENT: SBE prophylaxis is not recommended. Both ischemic and nonischemic etiology of the patient's cardiomyopathy should be considered. 10/04 - Will order ECHO. Cardiology consulted - I spoke to Dr Lutz who has seen pt in the past. 10/03 - pt on telemetry He had intermittent tachycardia yesterday afternoon (10/01); multiple ECGs were obtained and were reviewed by Dr. Rodriguez, who found patient to have a rate- induced LBBB. Rhythm has been normal overnight - Monitor on Telemetry x 72H per Dr. Rodriguez's recommendation - Echocardiogram ordered on 10/01/16; results pending - Replete potassium and magnesium and monitor electrolytes daily (3) Orthostatic hypotension Status: Acute Problem Text: 10/05 - Pt seen by cardiology. I discussed with Dr Lutz who advises starting Coreg 3.125 mg bid AND Losartan 25 mg daily. Hold parameters. Dr Lutz wants to continue monitoring for a couple more days. Discussed [employer]. ECHO 1. Study is of good technical quality. 2. Dilated, globally hypokinetic left ventricle with septal dyskinesis likely due to underlying left bundle branch block (LBBB). Overall left ventricular ejection fraction (LVEF) estimated at 15-20%. 2. At least grade 2 diastolic dysfunction. 3. No hemodynamically significant valvular disease. 4. Probably normal mildly elevated central venous pressure (CVP), but unable to reliably estimate pulmonary artery pressure. COMMENT: SBE prophylaxis is not recommended. Both ischemic and nonischemic etiology of the patient's cardiomyopathy should be considered. 10/04 - Stable off IVF 10/03 - On IVF Recheck Orthostatics today - Continue IV NS; can d/c if Orthostatics are negative. (4) Weakness Status: Acute Problem Text: Patient denies focal weakness today. - Not safe for discharge per PT due to overall shakiness and weakness - Continue PT - will ask for PT eval prior to allowing him to ambulate independently (5) Alcohol dependence Status: Chronic Problem Text: 10/05 - Patient has history of alcohol use disorder and has been to rehab and detox in the past. Has Serax and Ativan ordered PRN. 10/04 - Patient has history of alcohol use disorder and has been to rehab and detox in the past. Has Serax and Ativan ordered PRN. Patient has history of alcohol use disorder and has been to rehab and detox in the past. - Monitor CIWA scoring - Serax and ativan ordered PRN agitation/restlessness; he has received 3 doses of serax since admission. (6) COPD (chronic obstructive pulmonary disease) Status: Chronic Response to Treatment: Stable Problem Text: 10/05 - O2Sat 99% on RA 10/04 - O2Sat 98% on RA 10/03 - O2Sat 97% on RA Lungs are clear today. O2 sat 97% on 2 L/min. Continue duonebs. (7) Hypokalemia Status: Acute Problem Text: 10/05 - K 4.1 10/04 - K 4.6. Getting KCl 40 meq BID. Will stop the KCL. Monitor. 10/03 - K 3.9. Getting KCl 40 meq BID Increase PO potassium to 40 mEq BID (8) Hypomagnesemia Problem Text: 10/05 - Mg 1.9 10/04 - Mg 2.0. 10/03 - Mg 1.7. Give another Mag run today. Mag run x1 today (9) Anemia Status: Chronic Response to Treatment: Worse Problem Text: 10/05 - Hgb 12.2. 10/04 - Hgb up today to 12.5 (11.7 yesterday). Monitor. 10/03 - Hgb up some today to 11.7 (10.9 yesterday). Monitor. Likely anemia of chronic disease. H/H trending down - likely dilutional from IVF rehydration. - Monitor CBC daily Plan/VTE VTE Prophylaxis Ordered?: Yes (SC lovenox 40 units daily) VS, I&O, 24H, Fishbone Vital Signs/I&O Vital Signs Date Time Temp Pulse Resp B/P (MAP) Pulse Ox O2 Delivery O2 Flow Rate FiO2 10/05/16 05:52 76 133/77 (95) 113 171/94 (119) 126 121/68 (85) 10/05/16 04:16 99.4 18 99 Room Air 10/04/16 20:00 3.0 I&O- Last 24 Hours up to 6 AM 10/05/16 06:00 Intake Total 2120 ml Output Total 2000 ml Balance 120 ml Laboratory Data 24H LABS Laboratory Tests 2 10/05/16 05:42: White Blood Count 5.5, Red Blood Count 3.73L, Hemoglobin 12.2L, Hematocrit 36.7L , Mean Corpuscular Volume 98.3H, Mean Corpuscular Hemoglobin 32.7, Mean Corpuscular Hemoglobin Concent 33.2, Red Cell Distribution Width 13.6, Platelet Count 191, Neutrophils (%) (Auto) 57.8, Lymphocytes (%) (Auto) 20.6L, Monocytes (%) (Auto) 10.4H, Eosinophils (%) (Auto) 6.6H, Basophils (%) (Auto) 0.6, Neutrophils # (Auto) 3.2, Lymphocytes # (Auto) 1.4L, Monocytes # (Auto) 0.6, Eosinophils # (Auto) 0.4, Basophils # (Auto) 0.0, Large Unclassified Cells % 4.0 , Large Unclassified Cells # 0.2, Anion Gap 10, Glomerular Filtration Rate > 60.0, Blood Urea Nitrogen 10#, Creatinine 0.45L, Sodium Level 139, Potassium Level 4.1, Chloride Level 106, Carbon Dioxide Level 23, Calcium Level 9.3, Aspartate Amino Transf (AST/SGOT) 87H, Alanine Aminotransferase (ALT/SGPT) 84H, Alkaline Phosphatase 61, Total Bilirubin 0.7, Total Protein 7.0, Albumin 3.4, Magnesium Level 1.9, Albumin/Globulin Ratio 0.94L CBC/BMP Laboratory Tests 10/05/16 05:42 Red Blood Count 3.73 L, Mean Corpuscular Volume 98.3 H, Mean Corpuscular Hemoglobin 32.7, Mean Corpuscular Hemoglobin Concent 33.2, Red Cell Distribution Width 13.6, Neutrophils (%) (Auto) 57.8, Lymphocytes (%) (Auto) 20.6 L, Monocytes (%) (Auto) 10.4 H, Eosinophils (%) (Auto) 6.6 H, Basophils (% ) (Auto) 0.6, Neutrophils # (Auto) 3.2, Lymphocytes # (Auto) 1.4 L, Monocytes # (Auto) 0.6, Eosinophils # (Auto) 0.4, Basophils # (Auto) 0.0, Calcium Level 9.3 , Aspartate Amino Transf (AST/SGOT) 87 H, Alanine Aminotransferase (ALT/SGPT) 84 H, Alkaline Phosphatase 61, Total Bilirubin 0.7, Total Protein 7.0, Albumin 3.4 Nahid Harman RPA-C Oct 05, 2016 08:50
[2016-10-05] MEDS: FOLIC ACID 1 MG TAB PO SCH (09:19)
[2016-10-05] MEDS: THIAMINE 100 MG TAB PO SCH (09:19)
[2016-10-05] MEDS: PANTOPRAZOLE 40MG TAB (PROTONIX) PO SCH (09:20)
[2016-10-05] MEDS: CARVedilol 3.125 MG TAB PO SCH ×2 (09:20→22:23)
[2016-10-05] MEDS: NICOTINE 21MG/24HR 1 EA TRANSDERMAL TD SCH (09:20)
[2016-10-05] MEDS: LOSARTAN 25 MG TAB PO SCH (09:20)
[2016-10-05] MEDS: ENOXAPARIN 40 MG/0.4 ML SYRINGE (J1650) SC SCH (09:21)
[2016-10-05] MEDS: LORazepam 2 MG/ML VIAL (J2060) IV PRN ×3 (09:59→22:23)
--- NOTE | 2016-10-05 18:34 | REP ---
REASON: Rhonchi. COMPARISON: 09/30/2016, a portable exam. FINDINGS: The superior mediastinal structures are midline. The cardiac silhouette is unremarkable in size, shape, and position. The diaphragmatic surfaces of the lungs are regular, and the costophrenic angles are clear. The pulmonary garcia are clear. The imaged osseous structures are intact. No significant change from the prior exam other than technique. IMPRESSION: There is no acute cardiopulmonary disease. Signed by Hung Bustillo DO 10/05/2016 07:00 P
[2016-10-06] VITALS (7 sets, daily range): BP systolic 99–147; BP diastolic 56–78
[2016-10-06] MEDS: IPRATROPIUM 0.5MG/ALBUTEROL 2.5MG INH SOL UD 3ML (DUONEB)(J7620) NEB SCH ×4 (01:38→19:33)
--- NOTE | 2016-10-06 02:01 | CR ---
DATE OF CONSULTATION: 10/05/2016 REFERRING PROVIDER: SOPHIA Aranda. INDICATION: Syncope. HISTORY OF PRESENT ILLNESS: Mr. Castillo is a 51-year-old man who presented to [facility] on 09/30/2016 after he suffered a syncopal event at work. He apparently was sitting, was feeling well and then he stood up, but before he was able to make a single step he collapsed to the floor without any warning. There were a lot of coworkers present and they called ambulance. There was no cardiopulmonary resuscitation (CPR) performed and by the time the ambulance arrived he was already alert. The ECG was somewhat variable. It appears that the patient has rate related left bundle branch block and most of the ECGs during this hospitalization indeed demonstrate left bundle branch block and sinus rhythm, but on ECGs where left bundle branch block is not present, he had fairly significant precordial T-wave inversions strongly suggestive of ischemia. He was admitted to telemetry. So far he has not had any significant arrhythmias. He had an echocardiogram that was interpreted by myself. The study was performed on 10/04/2016 and revealed severe left ventricular systolic dysfunction with global wall motion abnormality and estimated ejection fraction (EF) around 15-20%. There was no significant valvular disease. When I talked to the patient during my rounds, the patient reported two additional syncopal events in the last 2 weeks. Each one of them occurred under the same scenario. He was originally sitting and then he stood up and immediately collapsed. Neither time he had any warning and each time the loss of consciousness was very brief. Today, the patient has no complaints. He does not feel short of breath. He also denies any chest discomfort and he denies any sensation of palpitations. PAST MEDICAL HISTORY: 1. Chronic obstructive pulmonary disease (COPD). The patient has had chronic respiratory failure and has been using supplemental oxygen 3 liters per minute. He tells me that he sleeps with the oxygen and he is supposed to use it also during the day, but he often does not because he often feels well. 2. The patient had a similar presentation in 2013. At that time, he presented with acute respiratory failure requiring intubation and ventilation. He did have normal left ventricular systolic function, but mild troponin elevation and very profound repolarization abnormalities on EKG with precordial T-wave inversions. He was eventually transferred to [facility] where coronary angiogram did not reveal any obstructive coronary artery disease. I saw the patient in followup, but since then he has been lost to my followup. 3. The patient denies any history of diabetes, hyperlipidemia or hypertension. SOCIAL HISTORY: The patient is single, but has significant other. He is a smoker of variable amounts, but typically about half a pack a day. There were times where he smoked a lot more. He does admit to occasional alcohol use. He reportedly used to be heavy alcohol drinker, but has not been drinking heavily for at least 8 years. As of recently though he increased his consumption and he tells me that he typically has 2-3 drinks a day. FAMILY HISTORY: Negative for coronary artery disease in first-degree relatives. REVIEW OF SYSTEMS: The patient denies any recent fever, chills, nausea, vomiting or diarrhea. There has been no history of stroke. No chest pain. No palpitations. He does get shortness of breath with activity. There has been no abdominal pain. No nausea, vomiting. No genitourinary symptoms. No peripheral edema. No prior episodes of syncope. No neurologic events. The rest of review of systems is negative. PHYSICAL EXAMINATION: Mr. Castillo is a middle-aged man who appears approximately his age or older. He is alert and oriented and appropriate and in no distress. Blood pressure this morning was 133/77, heart rate in low 100s, afebrile. Saturation was 97% on room air. His weight was documented as 60.6 kg. His jugular venous pulse (JVP) is not elevated. Lungs are clear to auscultation. I do not appreciate any gallop, rub or murmur, but he has paradoxically splitting second heart sound. Abdomen is soft, nontender. No hepatosplenomegaly. No peripheral edema. Neurologically, he is intact. LABORATORY DATA: CBC reveals mild anemia with hemoglobin 12.2, hematocrit 36 and platelet count 191,000. Basic metabolic panel is normal. He had several cardiac enzymes that were all within normal range and no BNP was drawn. TSH was 2.1. There are numerous ECGs in the chart as per history of present illness (HPI). Echocardiogram also as per HPI. IMAGING: The chest x-ray reveals no obvious congestive heart failure or cardiomegaly. CT of the head does not reveal any evidence for hemorrhage or stroke. ASSESSMENT AND PLAN: Mr. Castillo is a 51-year-old man who presents with syncopal event. He actually had two additional episodes of syncope in last 2 weeks. Neither time he had any warning, but each time it occurred immediately after he stood up from a sitting position. Even though the orthostatic change seems to be suggestive of orthostatic mechanism, I am overall very skeptical as there was never any warning and he never had any prolonged orthostatic change. It looks like there was virtually no time delay from standing up. Considering the fact that he has severe left ventricular systolic dysfunction, I have to suspect that the etiology of his syncope is indeed arrhythmic. What is even more intriguing is the fact that he had a somewhat similar presentation in the past. Back then he had acute respiratory failure, very profound repolarization abnormalities on EKG and mild troponin elevation, but preserved left ventricular (LV) systolic function based on echocardiogram. His coronary arteries were then free of significant coronary artery disease. At this point, I would continue monitoring the patient in the hospital. If he does have any new evidence for ventricular tachycardia, then he should get a defibrillator. I would start treatment for LV dysfunction with beta blockers and angiotensin-converting enzyme (ROMULO) inhibitors in initially small doses because his blood pressure is not very high. He does not have any obvious fluid retention or symptoms of congestive heart failure and consequently I do not believe that we need to introduce diuretics. I will contact electrophysiology and discuss his case. I think that most likely he will be discharged home with a LifeVest unless we see some truly worrisome ventricular ectopy. Then if his left ventricular systolic function does not improve with appropriate medical therapy over the course of next 3 months, then he might be a candidate for defibrillator. I had a discussion with the patient and I explained the plan. I will continue following the patient with you in the hospital.
[2016-10-06] MEDS: OXAZEPAM 10 MG CAP PO PRN (05:41)
[2016-10-06 06:42] LABS: BASO % 0.7 % (0.0-1.0); EOS # 0.4 K/mm3 (0.0-0.50); EOS % 7.8 % (0.0-3.0); LARGE UNSTAINED CELL # 0.2 K/mm3 (0.0-0.4); LARGE UNSTAINED CELL % 4.5 % (0.0-4.0); LYMPH # 1.4 K/mm3 (1.5-4.5); LYMPH % 23.8 % (24.0-44.0); MEAN CORPUSCULAR HEMOGLOBIN 33.4 pg (27.0-33.0); MEAN CORPUSCULAR HGB CONC 33.6 g/dl (32.0-36.5); MEAN CORPUSCULAR VOLUME 99.3 fl (80.0-96.0); MONO # 0.6 K/mm3 (0.0-0.8); MONO % 11.1 % (0.0-5.0); NEUTROPHILS # 2.6 K/mm3 (1.8-7.7); NEUTROPHILS % 52.1 % (36.0-66.0); PLATELET COUNT, AUTOMATED 225 k/mm3 (150-450); RED CELL DISTRIBUTION WIDTH 13.4 % (11.5-14.5)
[2016-10-06 06:55] LABS: ALBUMIN 3.3 GM/DL (3.2-5.2); ALBUMIN/GLOBULIN RATIO 1.03 (1.00-1.93); ALKALINE PHOSPHATASE 57 U/L (45-117); ALT/SGPT 101 U/L (12-78); ANION GAP 10 MEQ/L (8-16); AST/SGOT 85 U/L (15-37); BILIRUBIN,TOTAL 0.7 MG/DL (0.2-1.0); BLOOD UREA NITROGEN 12 MG/DL (7-18); CARBON DIOXIDE LEVEL 23 MEQ/L (21-32); CHLORIDE LEVEL 107 MEQ/L (98-107); CREATININE FOR GFR 0.52 MG/DL (0.70-1.30); GLOMERULAR FILTRATION RATE > 60.0 (>56); GLUCOSE, FASTING 98 MG/DL (70-105); POTASSIUM SERUM 4.6 MEQ/L (3.5-5.1); SODIUM LEVEL 140 MEQ/L (136-145); TOTAL PROTEIN 6.5 GM/DL (6.4-8.2)
--- NOTE | 2016-10-06 08:00 | IPNPDOC ---
Subjective Date Seen The patient was seen on 10/06/16. Subjective Chief Complaint/HPI The patient is a 51-year-old male admitted with a reason for visit of Syncope. Events since last encounter Pt states he is doing better. Denies any further syncope. Denies CP, SOB, Abd pain, palpitations. Constitutional: Denies: Chills, Fever Pulmonary: Denies: Dyspnea Cardiovascular: Denies: Chest Pain, Palpitations Gastrointestinal: Denies: Abdominal Pain Objective Physical Examination General Exam: Positive: Cooperative, Other (was in and out of alertness as he would fall asleep while asking him questions. But mental status was normal. Just some decreased mentation at times as he would nod off likely due to medications. ), Negative: No Acute Distress Eye Exam: Positive: PERRLA, Conjunctiva & lids normal, EOMI, Negative: Sclera icteric ENT Exam: Positive: Atraumatic, Mucous membr. moist/pink, Pharynx Normal, Tongue Midline, Negative: Pharyngeal Edema Neck Exam: Positive: Supple, Negative: JVD, thyromegaly, Lymphadenopathy Chest Exam: Positive: Wheezing (diffuse and prominent wheezing throughout lung garcia in both inspiratory and expiratory phase appreciated) Heart Exam: Positive: Tachycardic, Regular Rhythm, Normal S1, Normal S2, Negative: Gallops, Murmurs, Rubs Telemetry: Positive: No significant arrhythmia Abdomen Exam: Positive: Normal bowel sounds, Soft, Negative: Tenderness, Hepatospenomegaly Extremity Exam: Positive: Normal pulses, Other (very cool feet bilaterally.), Negative: Clubbing, Cyanosis, Edema Skin Exam: Negative: Rash, Breakdown Neuro Exam: Positive: Normal Speech, Sensation Intact Psych Exam: Positive: Memory Intact, Oriented x 3 Assessment /Plan Problems (1) Rate-dependent bundle branch block Status: Chronic Problem Text: 10/06 - Cardiology following. Dr Lutz advises increasing the Coreg to 6.[address] Lutz states he will contact EP to discuss Lifevest vs Defibrillator. He states pt may possibly be able to be D/C'ed with Lifevest tomorrow if stable. 10/05 - Pt seen by cardiology. I discussed with Dr Lutz who advises starting Coreg 3.125 mg bid AND Losartan 25 mg daily. Hold parameters. Dr Lutz wants to continue monitoring for a couple more days. Discussed Lifevest. ECHO 1. Study is of good technical quality. 2. Dilated, globally hypokinetic left ventricle with septal dyskinesis likely due to underlying left bundle branch block (LBBB). Overall left ventricular ejection fraction (LVEF) estimated at 15-20%. 2. At least grade 2 diastolic dysfunction. 3. No hemodynamically significant valvular disease. 4. Probably normal mildly elevated central venous pressure (CVP), but unable to reliably estimate pulmonary artery pressure. COMMENT: SBE prophylaxis is not recommended. Both ischemic and nonischemic etiology of the patient's cardiomyopathy should be considered. 10/04 - Will order ECHO. Cardiology consulted - I spoke to Dr Lutz who has seen pt in the past. 10/03 - pt on telemetry He had intermittent tachycardia yesterday afternoon (10/01); multiple ECGs were obtained and were reviewed by Dr. Rodriguez, who found patient to have a rate- induced LBBB. Rhythm has been normal overnight - Monitor on Telemetry x 72H per Dr. Rodriguez's recommendation - Echocardiogram ordered on 10/01/16; results pending - Replete potassium and magnesium and monitor electrolytes daily (2) Syncope Status: Acute Response to Treatment: Improving Problem Text: 10/06 - Cardiology following. Dr Lutz advises increasing the Coreg to 6.[address] Lutz states he will contact EP to discuss Lifevest vs Defibrillator. He states pt may possibly be able to be D/C'ed with Lifevest tomorrow if stable. 10/05 - Pt seen by cardiology. I discussed with Dr Lutz who advises starting Coreg 3.125 mg bid AND Losartan 25 mg daily. Hold parameters. Dr Lutz wants to continue monitoring for a couple more days. Discussed Lifevest. ECHO 1. Study is of good technical quality. 2. Dilated, globally hypokinetic left ventricle with septal dyskinesis likely due to underlying left bundle branch block (LBBB). Overall left ventricular ejection fraction (LVEF) estimated at 15-20%. 2. At least grade 2 diastolic dysfunction. 3. No hemodynamically significant valvular disease. 4. Probably normal mildly elevated central venous pressure (CVP), but unable to reliably estimate pulmonary artery pressure. COMMENT: SBE prophylaxis is not recommended. Both ischemic and nonischemic etiology of the patient's cardiomyopathy should be considered. 10/04 - Pt denies any further syncope. Will order ECHO. Cardiology consulted - I spoke to Dr Lutz who has seen pt in the past. 10/03 - Pt denies any further syncope. Denies dizziness. Patient has had no further episodes of syncope and denies lightheadedness. - Recheck Orthostatic BP this morning - See below - See #2 below (3) Orthostatic hypotension Status: Acute Problem Text: 10/06 - Cardiology following. Dr Lutz advises increasing the Coreg to 6.[address] Lutz states he will contact EP to discuss Lifevest vs Defibrillator. He states pt may possibly be able to be D/C'ed with Lifevest tomorrow if stable. 10/05 - Pt seen by cardiology. I discussed with Dr Lutz who advises starting Coreg 3.125 mg bid AND Losartan 25 mg daily. Hold parameters. Dr Lutz wants to continue monitoring for a couple more days. Discussed Lifevest. ECHO 1. Study is of good technical quality. 2. Dilated, globally hypokinetic left ventricle with septal dyskinesis likely due to underlying left bundle branch block (LBBB). Overall left ventricular ejection fraction (LVEF) estimated at 15-20%. 2. At least grade 2 diastolic dysfunction. 3. No hemodynamically significant valvular disease. 4. Probably normal mildly elevated central venous pressure (CVP), but unable to reliably estimate pulmonary artery pressure. COMMENT: SBE prophylaxis is not recommended. Both ischemic and nonischemic etiology of the patient's cardiomyopathy should be considered. 10/04 - Stable off IVF 10/03 - On IVF Recheck Orthostatics today - Continue IV NS; can d/c if Orthostatics are negative. (4) Weakness Status: Acute Problem Text: Patient denies focal weakness today. - Not safe for discharge per PT due to overall shakiness and weakness - Continue PT - will ask for PT eval prior to allowing him to ambulate independently (5) Alcohol dependence Status: Chronic Problem Text: Patient has history of alcohol use disorder and has been to rehab and detox in the past. Has Serax and Ativan ordered PRN. Patient has history of alcohol use disorder and has been to rehab and detox in the past. - Monitor CIWA scoring - Serax and ativan ordered PRN agitation/restlessness; he has received 3 doses of serax since admission. (6) COPD (chronic obstructive pulmonary disease) Status: Chronic Response to Treatment: Stable Problem Text: 10/06 - O2Sat 96% on RA 10/05 - O2Sat 99% on RA 10/04 - O2Sat 98% on RA 10/03 - O2Sat 97% on RA Lungs are clear today. O2 sat 97% on 2 L/min. Continue duonebs. (7) Hypokalemia Status: Acute Problem Text: 10/06 - K 4.6 10/05 - K 4.1 10/04 - K 4.6. Getting KCl 40 meq BID. Will stop the KCL. Monitor. 10/03 - K 3.9. Getting KCl 40 meq BID Increase PO potassium to 40 mEq BID (8) Hypomagnesemia Problem Text: 10/06 - Mg 2.0 10/05 - Mg 1.9 10/04 - Mg 2.0. 10/03 - Mg 1.7. Give another Mag run today. Mag run x1 today (9) Anemia Status: Chronic Response to Treatment: Worse Problem Text: 10/06 - Hgb 11.6 (12.2 yesterday). 10/05 - Hgb 12.2. 10/04 - Hgb up today to 12.5 (11.7 yesterday). Monitor. 10/03 - Hgb up some today to 11.7 (10.9 yesterday). Monitor. Likely anemia of chronic disease. H/H trending down - likely dilutional from IVF rehydration. - Monitor CBC daily Plan/VTE VTE Prophylaxis Ordered?: Yes (SC lovenox 40 units daily) VS, I&O, 24H, Fishbone Vital Signs/I&O Vital Signs Date Time Temp Pulse Resp B/P (MAP) Pulse Ox O2 Delivery O2 Flow Rate FiO2 10/06/16 06:11 76 127/58 (81) 113 147/67 (93) 126 130/68 (88) 10/06/16 04:00 98.8 18 96 Room Air 10/04/16 20:00 3.0 I&O- Last 24 Hours up to 6 AM 10/06/16 06:00 Intake Total 1200 ml Output Total 1450 ml Balance -250 ml Laboratory Data 24H LABS Laboratory Tests 2 10/06/16 06:31: White Blood Count 5.0, Red Blood Count 3.49L, Hemoglobin 11.6L, Hematocrit 34.6L , Mean Corpuscular Volume 99.3H, Mean Corpuscular Hemoglobin 33.4H, Mean Corpuscular Hemoglobin Concent 33.6, Red Cell Distribution Width 13.4, Platelet Count 225, Neutrophils (%) (Auto) 52.1, Lymphocytes (%) (Auto) 23.8L, Monocytes (%) (Auto) 11.1H, Eosinophils (%) (Auto) 7.8H, Basophils (%) (Auto) 0.7, Neutrophils # (Auto) 2.6, Lymphocytes # (Auto) 1.4L, Monocytes # (Auto) 0.6, Eosinophils # (Auto) 0.4, Basophils # (Auto) 0.0, Large Unclassified Cells % 4.5H, Large Unclassified Cells # 0.2, Anion Gap 10, Glomerular Filtration Rate > 60.0, Blood Urea Nitrogen 12, Creatinine 0.52L, Sodium Level 140, Potassium Level 4.6, Chloride Level 107, Carbon Dioxide Level 23, Calcium Level 9.0, Aspartate Amino Transf (AST/SGOT) 85H, Alanine Aminotransferase (ALT/SGPT) 101H , Alkaline Phosphatase 57, Total Bilirubin 0.7, Total Protein 6.5, Albumin 3.3, Magnesium Level 2.0, Albumin/Globulin Ratio 1.03 CBC/BMP Laboratory Tests 10/06/16 06:31 Red Blood Count 3.49 L, Mean Corpuscular Volume 99.3 H, Mean Corpuscular Hemoglobin 33.4 H, Mean Corpuscular Hemoglobin Concent 33.6, Red Cell Distribution Width 13.4, Neutrophils (%) (Auto) 52.1, Lymphocytes (%) (Auto) 23.8 L, Monocytes (%) (Auto) 11.1 H, Eosinophils (%) (Auto) 7.8 H, Basophils (% ) (Auto) 0.7, Neutrophils # (Auto) 2.6, Lymphocytes # (Auto) 1.4 L, Monocytes # (Auto) 0.6, Eosinophils # (Auto) 0.4, Basophils # (Auto) 0.0, Calcium Level 9.0 , Aspartate Amino Transf (AST/SGOT) 85 H, Alanine Aminotransferase (ALT/SGPT) 101 H, Alkaline Phosphatase 57, Total Bilirubin 0.7, Total Protein 6.5, Albumin 3.3 Nahid Harman RPA-Nakia Oct 06, 2016 08:00
--- NOTE | 2016-10-06 08:35 | IPN ---
DATE: 10/06/2016 Mr. Castillo has been doing well. He has not had any arrhythmias. He was able to ambulate on telemetry without major difficulty. Denies any dizziness or near/syncope. Blood pressure this morning 157/58, does not seem to be any orthostatic change. His heart rate is around 90-110, but a little bit slower than yesterday. He is afebrile. Saturation 96% on room air. JVP is not up. Lungs are clear. Heart exam reveals paradoxically splitting second heart sound but otherwise regular. No gallop is appreciated. Abdomen is soft, nontender. No edema. Laboratory luna, hemoglobin 11.6, hematocrit 34, platelet count is 225,000. Basic metabolic panel is normal. ASSESSMENT/PLAN: Mr. Castillo is a 51-year-old man who has advanced chronic obstructive pulmonary disease (COPD) and who presented with syncopal event. It was his third syncopal event within 2 weeks, even though it happened up and standing, the overall scenario is very suspicious for arrhythmic etiology. He has probably rate related left bundle branch block and severe LV systolic dysfunction. I started him on low-dose carvedilol and will advance the dose today. He is already on a low dose ARB. We will progressively titrate the medications as tolerated. He still can be monitored on telemetry at least 24 hours. I attempted to contact EP, but hopefully I will be successful today. In my opinion, he most likely will be discharged home with a LifeVest with tentative defibrillator placement if his LV systolic function does not improve with medical management. I spoke with SOPHIA Aranda regarding this plan.
[2016-10-06] MEDS: FOLIC ACID 1 MG TAB PO SCH (08:36)
[2016-10-06] MEDS: PANTOPRAZOLE 40MG TAB (PROTONIX) PO SCH (08:36)
[2016-10-06] MEDS: THIAMINE 100 MG TAB PO SCH (08:37)
[2016-10-06] MEDS: LOSARTAN 25 MG TAB PO SCH (08:37)
[2016-10-06] MEDS: ENOXAPARIN 40 MG/0.4 ML SYRINGE (J1650) SC SCH (08:37)
[2016-10-06] MEDS: NICOTINE 21MG/24HR 1 EA TRANSDERMAL TD SCH (08:38)
[2016-10-06] MEDS: TIOTROPIUM INHALER/CAPSULE (SPIRIVA) INH SCH (08:51)
[2016-10-06] MEDS: CARVedilol 6.25 MG TAB PO SCH ×2 (09:53→21:19)
[2016-10-06] MEDS: LORazepam 2 MG/ML VIAL (J2060) IV PRN ×2 (09:53→16:49)
[2016-10-07] VITALS: BP 102/65
[2016-10-07] MEDS: LORazepam 2 MG/ML VIAL (J2060) IV PRN (01:08)
[2016-10-07] MEDS: IPRATROPIUM 0.5MG/ALBUTEROL 2.5MG INH SOL UD 3ML (DUONEB)(J7620) NEB SCH ×3 (01:29→13:14)
[2016-10-07 04:00] VITALS: BP 119/67
[2016-10-07 06:12] LABS: BASO % 1.1 % (0.0-1.0); EOS # 0.3 K/mm3 (0.0-0.50); EOS % 6.9 % (0.0-3.0); LARGE UNSTAINED CELL # 0.2 K/mm3 (0.0-0.4); LARGE UNSTAINED CELL % 4.8 % (0.0-4.0); LYMPH # 1.5 K/mm3 (1.5-4.5); LYMPH % 28.7 % (24.0-44.0); MEAN CORPUSCULAR HEMOGLOBIN 32.8 pg (27.0-33.0); MEAN CORPUSCULAR HGB CONC 32.8 g/dl (32.0-36.5); MEAN CORPUSCULAR VOLUME 100.2 fl (80.0-96.0); MONO # 0.5 K/mm3 (0.0-0.8); MONO % 12.4 % (0.0-5.0); NEUTROPHILS % 46.1 % (36.0-66.0); PLATELET COUNT, AUTOMATED 274 k/mm3 (150-450); RED CELL DISTRIBUTION WIDTH 13.3 % (11.5-14.5); WHITE BLOOD COUNT 4.4 K/mm3 (4.0-10.0)
[2016-10-07 06:31] LABS: ALBUMIN 3.2 GM/DL (3.2-5.2); ALBUMIN/GLOBULIN RATIO 0.86 (1.00-1.93); ALKALINE PHOSPHATASE 57 U/L (45-117); ALT/SGPT 120 U/L (12-78); ANION GAP 9 MEQ/L (8-16); AST/SGOT 88 U/L (15-37); BILIRUBIN,TOTAL 0.5 MG/DL (0.2-1.0); BLOOD UREA NITROGEN 11 MG/DL (7-18); CALCIUM LEVEL 9.1 MG/DL (8.5-10.1); CARBON DIOXIDE LEVEL 26 MEQ/L (21-32); CHLORIDE LEVEL 106 MEQ/L (98-107); CREATININE FOR GFR 0.51 MG/DL (0.70-1.30); GLOMERULAR FILTRATION RATE > 60.0 (>56); GLUCOSE, FASTING 87 MG/DL (70-105); POTASSIUM SERUM 4.6 MEQ/L (3.5-5.1); SODIUM LEVEL 141 MEQ/L (136-145); TOTAL PROTEIN 6.9 GM/DL (6.4-8.2)
[2016-10-07 07:25] VITALS: BP 112/71
[2016-10-07] MEDS: TIOTROPIUM INHALER/CAPSULE (SPIRIVA) INH SCH (07:40)
[2016-10-07] MEDS: OXAZEPAM 10 MG CAP PO PRN (07:42)
[2016-10-07 08:00] VITALS: BP 112/71
--- NOTE | 2016-10-07 08:04 | IPN ---
DATE: 10/07/2016 Mr. Castillo has been doing well. He was able to ambulate around PCU many times without major difficulty. He denies any significant dyspnea with this degree of activity. There has been no dizziness and certainly no syncopal events. A review of telemetry monitoring reveals sinus rhythm with alternating narrow and wide QRS complex. He has rate induced LBBB. Only a rare isolated ventricular ectopy, no ventricular tachycardia. Blood pressure 119/67, heart rate around 90-100. He is afebrile. Saturation 97% on room air. His fluid balance yesterday was slightly negative. Weight is documented at 60 kg. He is alert and oriented and appropriate. His JVP is not up. Lungs are clear. Heart exam reveals regular rhythm. He has paradoxically splitting second heart sound. I do not appreciate any murmur. Abdomen is soft, nontender. There is no peripheral edema. Peripheral pulses are of good quality. Neurologically he is intact. His skin is very dry, but I do not appreciate any lesions. Laboratory luna, his CBC reveals hemoglobin 11.6, hematocrit 35. Basic metabolic panel remains normal. Somewhat surprisingly his AST is continuously rising, it is 88 today, ALT is 120. They were all normal about four days ago. He does not take any hepatotoxic medications. ASSESSMENT/PLAN: Mr. Castillo is a 51-year-old man who comes with a total of three syncopal events over the span of the last 2 weeks, even though there was always some orthostatic event preceding the syncopal episode, he has virtually no warning. He also has LBBB and severe LV systolic dysfunction further increasing the risk of ventricular arrhythmias, but nevertheless during prolonged monitoring in the hospital there were no arrhythmias detected. He has been tolerating the addition of Coreg 6.25 twice a day. I believe it is appropriate to discharge the patient home. I would continue his losartan and Coreg in current doses. I will arrange for him to receive a LifeVest. I am hopeful that with medical management there will be improvement. I plan to see him in the office next week.
[2016-10-07] MEDS: FOLIC ACID 1 MG TAB PO SCH (09:22)
[2016-10-07] MEDS: PANTOPRAZOLE 40MG TAB (PROTONIX) PO SCH (09:22)
[2016-10-07] MEDS: THIAMINE 100 MG TAB PO SCH (09:22)
[2016-10-07 09:23] VITALS: BP 112/71
[2016-10-07] MEDS: CARVedilol 6.25 MG TAB PO SCH (09:23)
[2016-10-07] MEDS: LOSARTAN 25 MG TAB PO SCH (09:23)
[2016-10-07] MEDS: NICOTINE 21MG/24HR 1 EA TRANSDERMAL TD SCH (09:24)
[2016-10-07] MEDS: ENOXAPARIN 40 MG/0.4 ML SYRINGE (J1650) SC SCH (09:24)
[2016-10-07] MEDS ORDERED: SLF 3 ML SYR IV PRN (10:45)
[2016-10-07] MEDS ORDERED: CARV6.25 PO (11:53)
[2016-10-07] MEDS ORDERED: TIOT18INH INH (11:53)
[2016-10-07] MEDS ORDERED: PANT40TA2 PO (11:53)
[2016-10-07 12:00] VITALS: BP 110/68
[2016-10-07] MEDS ORDERED: SLF 3 ML SYR IV SCH (14:00)
--- NOTE | 2016-10-08 10:51 | DSES ---
DATE OF ADMISSION: 09/30/2016 DATE OF DISCHARGE: 10/07/2016 ATTENDING PHYSICIAN: Dr. Tana Muhammad PRIMARY CARE PROVIDER: Dr. Selwyn Johnson CONSULTATIONS: Dr. Luke Lutz, Cardiology HISTORY OF THE PRESENT ILLNESS: This is a 51-year-old gentleman who presented to [facility] for a syncopal episode that occurred at his workplace. The patient was transferred to [facility] by emergency medical services (EMS), was noted to have orthostatic hypotension. Admitted diagnoses included syncopal episode with admission to the progressive care unit (PCU), orthostatic hypotension, weakness, alcohol dependency, chronic obstructive pulmonary disease (COPD), chronic tobacco use, hypokalemia. He was subsequently admitted to the PCU under family medicine service. Cardiology was consulted. The patient's routine special skills officer, Dr. Luke Lutz, evaluated the patient. The patient was noted to have intermittent tachycardia. Cardiology did evaluate and noticed the patient had a rate-induced left bundle branch block. On 10/05/2016, Dr. Lutz evaluated the patient. It was felt that the patient had the necessity to obtain a LifeVest. Over the last 24 hours, the patient has had no arrhythmias, his telemetry has been fairly uneventful during the rest of his hospitalization. Dr. Lutz does advise the patient may go home and LifeVest will be obtained on an outpatient basis. Recommended to continue the losartan and Coreg at current doses. The addition of Coreg did improve patient's heart rate and blood pressure. On physical exam, blood pressure is stable at 112/71, heart rate 85, oxygen saturation is 97% on room air. Neck is supple without lymphadenopathy. Cardiovascular: Heart rate and rhythm are regular. Pulmonary: Lungs are clear. Abdomen: Soft and nontender. Bilateral lower extremities are without any edema. DISCHARGE DIAGNOSES: 1. Syncopal event. 2. Left bundle branch block with severe left ventricular systolic dysfunction, increasing the risk of ventricular arrhythmia. 3. Chronic obstructive pulmonary disease (COPD). 4. Alcohol dependency. PLAN: The patient will be discharged home. Diet is as tolerated. Activity is as tolerated. Medications are as follows: - carvedilol 6.25 mg by mouth twice a day - Protonix 40 mg by mouth daily - Spiriva HandiHaler one inhalation daily - [place] one tablet by mouth every 6 hours as needed for pain - albuterol sulfate two puffs every 4 hours as needed for shortness of breath or wheeze - DuoNeb every 6 hours as needed for shortness of breath and wheezing - citalopram 40 mg by mouth daily - vitamin B12 250 mcg by mouth daily - folic acid 1 mg daily - Incruse Ellipta 62.5 mcg inhalation daily - levocetirizine 5 mg by mouth daily - losartan potassium 25 mg by mouth daily - mometasone furoate one spray to each nostril daily - montelukast sodium 10 mg by mouth daily - naltrexone 50 mg by mouth twice a day - Advair Diskus 500-50 mcg one puff twice a day - thiamine 100 mg by mouth daily - trazodone 50 mg by mouth nightly as needed for sleep The patient is discharged in stable, satisfactory condition. The patient states he does not intend on drinking any alcohol upon discharge. He has received intermittent doses of oxazepam as needed throughout the hospitalization; however, no more than one per day and it is my opinion that the patient is using that more for anxiety than actual alcohol withdrawal symptoms. He has been without a drink for well over 10 days and is without any symptoms of further withdrawal at this time. The patient will followup with myself or Dr. Johnson in the office within the next week. He will also followup with his special skills officer within the next week. Imaging completed includes chest x-ray and head CT, all of which proved negative. The patient also had an echocardiogram completed on 10/04/2016. The patient was found to have globally hypokinetic left ventricle with septic dyskinesis secondary to left bundle branch block. He has an estimated ejection fraction (EF) of 15-20%.
[2016-12-31] MEDS ORDERED: MAGN400T5 PO (19:46)
[2016-12-31] MEDS ORDERED: BUSP15TA47 PO (19:46)
[2016-12-31] MEDS ORDERED: VITA100072 PO (19:46)
[2016-12-31] MEDS ORDERED: ASPI1TAB PO (19:46)
[2016-12-31] MEDS ORDERED: LOSA25TA8 PO (19:46)
== END 2016-10-07 16:41 | disposition home or self-care (01) | DRG 201 ==
LOC: EDBD 16:28 → M ED 16:28 → M ED INP 23:05 → M ICU 10-01 00:33 → OBSVTOIN 10-03 11:27 → M PCU 10-03 23:46
PROVIDERS: ADMIT Hospitalist; ATTEND Family Medicine
DX: I49.8 Other specified cardiac arrhythmias (principal); J96.11 Chronic respiratory failure with hypoxia; Z99.81 Dependence on supplemental oxygen; E53.8 Deficiency of other specified B group vitamins; J44.9 Chronic obstructive pulmonary disease, unspecified; E83.42 Hypomagnesemia; I44.7 Left bundle-branch block, unspecified; I95.1 Orthostatic hypotension; R53.1 Weakness; F10.20 Alcohol dependence, uncomplicated; I10 Essential (primary) hypertension; J30.2 Other seasonal allergic rhinitis; D63.8 Anemia in other chronic diseases classified elsewhere; F32.9 Major depressive disorder, single episode, unspecified; F17.210 Nicotine dependence, cigarettes, uncomplicated; Z91.040 Latex allergy status; E87.6 Hypokalemia; Z79.899 Other long term (current) drug therapy

== ENCOUNTER 2016-10-22 21:58 | Observation (INO) | payer OTHER ==
[~2016-10-22] VITALS: Ht 180.3 cm; Wt 58.5 kg
[~2016-10-22 21:58] MED LIST changes: +CARV6.25 PO; +LOSA25TA8 PO; +NORC1TAB4 PO; +PANT40TA2 PO; +TIOT18INH INH
[2016-10-22] MEDS ORDERED: VITA50TA PO (22:31)
[2016-10-22] MEDS ORDERED: BUSP15TA47 PO (22:31)
[2016-10-22] MEDS ORDERED: OLOP1OPD (22:31)
[2016-10-22] MEDS ORDERED: FLON1SPR (22:31)
[2016-10-22 22:54] LABS: BASO # 0.1 K/mm3 (0.0-0.2); BASO % 0.9 % (0.0-1.0); EOS % 0.2 % (0.0-3.0); LARGE UNSTAINED CELL # 0.1 K/mm3 (0.0-0.4); LARGE UNSTAINED CELL % 1.3 % (0.0-4.0); LYMPH # 0.9 K/mm3 (1.5-4.5); LYMPH % 10.9 % (24.0-44.0); MEAN CORPUSCULAR HEMOGLOBIN 33.3 pg (27.0-33.0); MEAN CORPUSCULAR HGB CONC 33.8 g/dl (32.0-36.5); MEAN CORPUSCULAR VOLUME 98.6 fl (80.0-96.0); MONO # 0.3 K/mm3 (0.0-0.8); MONO % 3.4 % (0.0-5.0); NEUTROPHILS # 7.2 K/mm3 (1.8-7.7); NEUTROPHILS % 83.3 % (36.0-66.0); PLATELET COUNT, AUTOMATED 181 k/mm3 (150-450); RED CELL DISTRIBUTION WIDTH 13.8 % (11.5-14.5); WHITE BLOOD COUNT 8.6 K/mm3 (4.0-10.0)
[2016-10-22 23:05] LABS: ANION GAP 11 MEQ/L (8-16); BLOOD UREA NITROGEN 8 MG/DL (7-18); CALCIUM LEVEL 8.6 MG/DL (8.5-10.1); CARBON DIOXIDE LEVEL 28 MEQ/L (21-32); CHLORIDE LEVEL 98 MEQ/L (98-107); CREATININE FOR GFR 0.55 MG/DL (0.70-1.30); GLOMERULAR FILTRATION RATE > 60.0 (>56); GLUCOSE, FASTING 134 MG/DL (70-105); POTASSIUM SERUM 4.3 MEQ/L (3.5-5.1); SODIUM LEVEL 137 MEQ/L (136-145)
[2016-10-22] MEDS ORDERED: ASPIRIN 325 MG TAB PO ONE (23:15)
[2016-10-22] MEDS ORDERED: MORPHINE 2 MG/ML 1ML SYRINGE IV ONE (23:15)
[2016-10-22 23:41] LABS: ABG BASE EXCESS -0.6 (-2.0-2.0); ABG HCO3 22.1 MEQ/L (22.0-26.0); ABG PARTIAL PRESSURE O2 123.6 mmHg (75.0-100.0)
[2016-10-23] VITALS (14 sets, daily range): BP systolic 120–161; BP diastolic 74–95
[2016-10-23] MEDS ORDERED: dexameTHASONE 20 MG/5 ML VIAL (J1100) IV ONE (01:30)
[2016-10-23] MEDS ORDERED: SPIR12.9 INH (03:25)
[2016-10-23] MEDS ORDERED: THIA100TA PO (03:25)
[2016-10-23] MEDS ORDERED: CARV6.25 PO (03:25)
[2016-10-23] MEDS ORDERED: PANT40TA2 PO (03:25)
[2016-10-23] MEDS ORDERED: NORCO, ANEXSIA 5/325MG TABLET (HYDROcodone/ACETAMINOPHEN) PO PRN (04:30)
[2016-10-23] MEDS ORDERED: IPRATROPIUM 0.5MG/ALBUTEROL 2.5MG INH SOL UD 3ML (DUONEB)(J7620) INH PRN (04:30)
[2016-10-23] MEDS ORDERED: ALBUTEROL 90 MCG/ACT 8GM HFA INHALER INH PRN (04:30)
[2016-10-23] MEDS ORDERED: traZODone 50 MG TAB PO PRN (04:30)
[2016-10-23] MEDS: HEPARIN SOD (PORCINE) 5000 UNITS/ML VIAL SC SCH ×3 (05:11→21:01)
--- NOTE | 2016-10-23 05:32 | HPEPDOC ---
General Date of Admission Oct 22, 2016 at 21:59 Primary Care Physician: Nahid Harman Attending Physician: JUDSON EDWARDS MD Chief Complaint The patient is a 51-year-old male admitted with a reason for visit of Chest Pain. Source: Patient Exam Limitations: No limitations Timing/Duration: 24 hours History of Present Illness Mr. Castillo is a 51-year-old male who presents to [facility]'s emergency Department with chest pain and weakness. Past medical history significant for hypertension, systolic and diastolic heart failure with a left ventricular ejection fraction 15-20%, COPD which is oxygen dependent on 3 L, alcohol dependence, allergies, depression, history of Staphylococcus epidermidis bacteremia, MRSA, history of hemorrhoids, history of hyperplastic polyp, dry skin, gastroesophageal reflux disease. Patient reports that he had been laying in bed all day feeling weak and exhausted when he managed to get up to go to the grocery store approximately 5: 30 PM. Reports that his LifeVest indicated that it was going to produce a shock. He switched it off. States that the LifeVest did this 2-3 more times and patient reports that he eventually took the battery out and put it back in with no more subsequent difficulty. At that point he called EMS. Patient also reports reproducible chest pain along the sternum. Reports that it happened this afternoon and has not been present since. States that the morphine administered in the emergency department has subsided the chest pain. Patient admits to blurry vision, feeling chilly, a cough productive of clear sputum, nasal congestion, and nonbloody diarrhea. All other review of systems were negative. Patient was previously admitted from 09/30/2016 to 10/07/2016 for a syncopal episode. At that time he was noted to have orthostatic hypotension. Cardiology was consulted and patient was noted to have intermittent tachycardia as well as a rate-induced left bundle branch block. As at that time that it was recommended that patient obtain a LifeVest. Patient was adequately managed and stable at time of discharge. There is a concern that on this current admission the left bundle branch block is still present on EKGs obtained in the emergency department, however patient is not tachycardic. Hospitalist service was consulted and patient was admitted for further medical management. Home Medications Scheduled (Incruse Ellipta) 62.5 Mcg/Inh Inh, 1 PUFF INH DAILY, (Reported) (Flonase Allergy Relief) 50 Mcg/Act Spr, 1 SPRAY NA DAILY, (Reported) Carvedilol (Carvedilol) 6.25 Mg Tab, 6.25 MG PO BID, (Reported) Citalopram Hydrobromide (Citalopram Hydrobromide) 40 Mg Tab, 40 MG PO DAILY, ( Reported) Folic Acid (Folic Acid) 1 Mg Tab, 1 MG PO DAILY, (Reported) Levocetirizine Hydrochloride (Levocetirizine Dihydrochl) 5 Mg Tab, 5 MG PO DAILY , (Reported) Montelukast Sodium (Singulair) 10 Mg Tab, 10 MG PO DAILY, (Reported) Pantoprazole Sodium (Pantoprazole Sodium) 40 Mg Tab, 40 MG PO DAILY, (Reported) Salmeterol/Fluticasone (Advair Diskus 500-50 Mcg/Dose) 28 Puff/Inhaler Aerp, 1 PUFF INH BID, (Reported) Thiamine Hcl (Thiamine Hcl) 100 Mg Tab, 100 MG PO DAILY, (Reported) Tiotropium Pointblank Monohydrate (Spiriva Respimat) 2.5 Mcg/Act Spr, 2 INHALATION INH DAILY, (Reported) Scheduled PRN Acetaminophen/Hydrocodone ([place] 5-325 mg) 1 Tab Tab, 1 TAB PO Q6H PRN for PAIN, (Reported) Albuterol Sulfate (Ventolin Hfa) 200 Puff/8 Gm Aers, 2 PUFF INH Q4H PRN for SOB/ WHEEZING, (Reported) Albuterol/Ipratropium (Ipratropium Pointblank/Albut 0.5-2.5 (3) mg/3Ml) 1 Sen Sen, 1 SEN INH Q6H PRN for SOB/WHEEZING, (Reported) Trazodone HCl (Trazodone HCl) 50 Mg Tab, 50 MG PO QHS PRN for SLEEP, (Reported) Allergies Coded Allergies: Latex (Verified Allergy, Intermediate, HIVES, EDMA, 11/13/12) Past Medical History Medical History 1. Hypertension 2. Systolic and diastolic heart failure with a left ventricular ejection fraction 15-20% 3. COPD which is oxygen dependent on 3 L 4. Alcohol dependence 5. Allergies 6. Depression 7. History of Staphylococcus epidermidis bacteremia 8. MRSA 9. History of hemorrhoids 10. History of hyperplastic polyp 11. Dry skin 12. Gastric esophageal reflux disease Surgical History 1. Colonoscopy 2. Left ear surgery 3. Variceal ligation, 1995 Family History Father: , 78, infection Mother: Alive, 84, hypertension Sister: Healthy Brother: Healthy Social History Homeless; lives in a warehouse and a [address] [place] No children Denies pets Was previously employed with [employer] Admits to tobacco use, half a pack per day, previously 2 packs per day, has been smoking since he was 13 years old Admits to current alcohol dependence, 3-4 drinks per day, has been drinking since he was 12 years old Denies environmental exposures Admits to domestic and international travel Review of Symptoms Constitutional: Reports: Chills, Weakness, Fatigue, Denies: Fever, Night Sweats Eyes: Denies: Pain, Vision change, Conjunctivae inflammation, Eyelid inflammation ENT: Reports: Sinus Congestion, Post Nasal Drip, Denies: Head Aches, Ear Pain, Dysphagia, Sore Throat, Epistaxis Skin: Reports: Dry, Denies: Rash, Lesions Pulmonary: Reports: Cough (productive of clear sputum), Pleuritic Chest Pain, Denies: Dyspnea Cardiovascular: Denies: Chest Pain, Palpitations, Orthopnea, Paroxysmal Noc. Dyspnea, Edema, Lt Headedness Gastrointestinal: Reports: Diarrhea, Denies: Nausea, Vomiting, Abdominal Pain, Constipation, Melena, Hematochezia Genitourinary: Denies: Dysuria, Frequency, Incontinence, Hematuria Hematologic: Denies: Bruising, Bleeding Excessively Musculoskeletal: Reports: Back Pain, Denies: Neck Pain, Joint Pain Neurological: Reports: Weakness, Denies: Numbness Physical Examination General Exam: Positive: Alert, Cooperative, No Acute Distress, Other (wearing LifeVest) Eye Exam: Positive: PERRLA, EOMI, Negative: Conjunctiva & lids normal (injected), Sclera icteric, Ptosis ENT Exam: Positive: Atraumatic, Pharynx Normal, Tongue Midline (oral candidiasis appears to be present), Nares Patent, Negative: Mucous membr. moist/pink (try), Pharyngeal Edema Neck Exam: Positive: Supple, +2 carotid pulse wo bruit, Negative: JVD, thyromegaly, Lymphadenopathy Chest Exam: Positive: Clear to auscultation, Normal air movement Heart Exam: Positive: Rate Normal, Regular Rhythm, Normal S1, Normal S2, Negative: Murmurs, Rubs Abdomen Exam: Positive: Normal bowel sounds, Soft, Negative: Tenderness, Hepatospenomegaly, Mass, Hernia Extremity Exam: Positive: Normal pulses, Negative: Clubbing, Cyanosis, Edema, Tenderness, Swelling Skin Exam: Positive: Other skin issue (dry skin), Negative: Nl turgor and temperature Neuro Exam: Positive: Normal Speech, Strength at 5/5 X4 ext Other physical findings Chest x-ray IMPRESSION: Report pending Vital Signs Vital Signs Date Time Temp Pulse Resp B/P (MAP) Pulse Ox O2 Delivery O2 Flow Rate FiO2 10/23/16 04:46 99.7 83 34 161/82 (108) 96 Nasal Cannula 3.0 Height (in): 71 Weight (kg): 53.6 BMI (kg): 16.5 Laboratory Data Labs 24H Laboratory Tests 2 10/22/16 22:18: White Blood Count 8.6, Red Blood Count 4.47, Hemoglobin 14.9, Hematocrit 44.1, Mean Corpuscular Volume 98.6H, Mean Corpuscular Hemoglobin 33.3H, Mean Corpuscular Hemoglobin Concent 33.8, Red Cell Distribution Width 13.8, Platelet Count 181, Neutrophils (%) (Auto) 83.3H, Lymphocytes (%) (Auto) 10.9L, Monocytes (%) (Auto) 3.4, Eosinophils (%) (Auto) 0.2, Basophils (%) (Auto) 0.9, Neutrophils # (Auto) 7.2, Lymphocytes # (Auto) 0.9L, Monocytes # (Auto) 0.3, Eosinophils # (Auto) 0.0, Basophils # (Auto) 0.1, Large Unclassified Cells % 1.3 , Large Unclassified Cells # 0.1, Anion Gap 11, Glomerular Filtration Rate > 60.0, Blood Urea Nitrogen 8, Creatinine 0.55L, Sodium Level 137, Potassium Level 4.3, Chloride Level 98, Carbon Dioxide Level 28, Calcium Level 8.6, Total Creatine Kinase 62, Creatine Kinase MB 1.2, Creatine Kinase MB Relative Index 1.93, Troponin I 0.04, Ethyl Alcohol Level 0.307H 10/22/16 23:35: Blood Gas Bicarbonate Standard 24.0, Arterial Blood pH 7.470H, Arterial Blood Partial Pressure CO2 31.0L, Arterial Blood Partial Pressure O2 123.6H, Arterial Blood Total CO2 23.0, Arterial Blood HCO3 22.1, Arterial Blood Base Excess -0.6 , Arterial Blood Oxygen Saturation 98.5 10/23/16 01:52: Total Creatine Kinase 42, Creatine Kinase MB 1.5, Creatine Kinase MB Relative Index 3.57, Troponin I 0.05# CBC/BMP Laboratory Tests 10/22/16 22:18 Red Blood Count 4.47, Mean Corpuscular Volume 98.6 H, Mean Corpuscular Hemoglobin 33.3 H, Mean Corpuscular Hemoglobin Concent 33.8, Red Cell Distribution Width 13.8, Neutrophils (%) (Auto) 83.3 H, Lymphocytes (%) (Auto) 10.9 L, Monocytes (%) (Auto) 3.4, Eosinophils (%) (Auto) 0.2, Basophils (%) ( Auto) 0.9, Neutrophils # (Auto) 7.2, Lymphocytes # (Auto) 0.9 L, Monocytes # ( Auto) 0.3, Eosinophils # (Auto) 0.0, Basophils # (Auto) 0.1, Calcium Level 8.6, Total Creatine Kinase 62 Microbiology Microbiology 10/23/16 Blood Culture, Received Pending Assessment/Plan This is a 51-year-old male with a past medical history significant for hypertension, systolic and diastolic heart failure with a left ventricular ejection fraction 15-20%, COPD which is oxygen dependent on 3 L, alcohol dependence, allergies, depression, history of Staphylococcus epidermidis bacteremia, MRSA, history of hemorrhoids, history of hyperplastic polyp, dry skin who presents with chest pain and weakness likely secondary to underlying systolic and diastolic heart failure. Plan / VTE VTE Prophylaxis Ordered?: Yes (TEDs, sequential, knee-high compression, heparin 5000 units subcutaneous every 8 hours) Plan Plan Chest pain Rule out cardiac. Likely secondary to gastroesophageal reflux disease as patient 's chest pain is reproducible and does not appear to meet criteria for anginal chest pain. Continue patient on Protonix. Administer Tums with meals. Obtain cardiac markers. Cardiac markers thus far been negative. Obtain an EKG in the morning. Admit patient to the ICU. Consider contacting the maker of patient's LifeVest for interrogation. Could consider initiating patient on spironolactone and an ACEi/ARB. Continue patient's carvedilol. Weakness Obtain a TSH. Patient's weakness is likely secondary to systolic and diastolic heart failure with a left ventricular ejection fraction of 15-20%. Alcohol dependence Continue patient on thiamine and folate. Administer multivitamin. Could consider adding benzodiazepine once patient's acute intoxication subsides. COPD Continue patient on oxygen by nasal cannula, 3 L. Continue current medication regimen. Depression Continue patient's current home medication regimen. Allergies Continue patient's current home medication regimen. DVT prophylaxis: TEDs, sequential, knee-high compression, heparin 5000 units subcutaneous every 8 hours. Disposition Admit: Intensive care unit Anticipated hospitalization: Observation Attending: Dr. Yoon Diet: Continue Current (no added salt) Activity: Encourage Ambulation Respiratory: Other Respiratory (3 L by nasal cannula) Diagnostics: Check Labs, Repeat Labs in AM, EKG Anticipated Discharge: Home AMANDA AVERY Oct 23, 2016 05:31
[2016-10-23 05:45] LABS: MAGNESIUM LEVEL 1.5 MG/DL (1.8-2.4)
[2016-10-23] MEDS: MAG SULF 1GM/100ML (MAG RUN) 1 GM in APPROPRIATE DILUENT 1 EA IV SCH ×2 (06:01→08:50)
--- NOTE | 2016-10-23 08:03 | REP ---
Chest two views HISTORY: Dyspnea Comparison: 10/05/2016 The lungs are clear. The heart is normal in size. The pulmonary vasculature is normal in appearance. The bony structure is intact. IMPRESSION: No acute disease. Signed by Shelton Mckay MD 10/23/2016 07:54 A
--- NOTE | 2016-10-23 08:42 | ECGEPIP ---
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
[2016-10-23] MEDS: THIAMINE 100 MG TAB PO SCH (08:49)
[2016-10-23] MEDS: PANTOPRAZOLE 40MG TAB (PROTONIX) PO SCH (08:49)
[2016-10-23] MEDS: FOLIC ACID 1 MG TAB PO SCH (08:49)
[2016-10-23] MEDS: CALCIUM CARBONATE 500 MG CHEW U/D PO SCH ×3 (08:49→17:10)
[2016-10-23] MEDS: CitaloPRAM (CeleXA) 20 MG TAB PO SCH (08:49)
[2016-10-23] MEDS: MULTIVITAMINS/MINERALS THERAP 1 TAB PO SCH (08:49)
[2016-10-23] MEDS: CARVedilol 6.25 MG TAB PO SCH ×2 (08:51→21:01)
[2016-10-23] MEDS: ADVAIR HFA 230/21MCG INHALER INH SCH ×2 (09:00→20:11)
--- NOTE | 2016-10-23 10:14 | IPNPDOC ---
Subjective Date Seen The patient was seen on 10/23/16. Subjective Chief Complaint/HPI The patient is a 51-year-old male admitted with a reason for visit of Chest Pain. Constitutional: Reports: Weakness, Denies: Fever Pulmonary: Denies: Dyspnea, Cough Cardiovascular: Denies: Chest Pain, Palpitations, Orthopnea Gastrointestinal: Denies: Nausea, Vomiting, Abdominal Pain Hematologic: Denies: Bruising, Petecchia Neurological: Reports: Other Symptoms (feels a bit anxious and jittery), Denies: Numbness, Change in speech, Confusion Objective Physical Examination General Exam: Positive: Alert, Cooperative, No Acute Distress, Other (wearing LifeVest) Eye Exam: Positive: PERRLA, EOMI, Negative: Conjunctiva & lids normal (injected), Sclera icteric, Ptosis ENT Exam: Positive: Atraumatic, Pharynx Normal, Tongue Midline (oral candidiasis appears to be present), Nares Patent, Negative: Pharyngeal Edema Neck Exam: Positive: Supple, +2 carotid pulse wo bruit, Negative: JVD, thyromegaly, Lymphadenopathy Chest Exam: Positive: Clear to auscultation, Normal air movement Heart Exam: Positive: Rate Normal, Regular Rhythm, Normal S1, Normal S2, Negative: Murmurs, Rubs Telemetry: Positive: No significant arrhythmia, Other Telemetry: (LBBB pattern. ) Abdomen Exam: Positive: Normal bowel sounds, Soft, Negative: Tenderness, Hepatospenomegaly, Mass, Hernia Extremity Exam: Positive: Normal pulses, Negative: Clubbing, Cyanosis, Edema, Tenderness, Swelling Skin Exam: Positive: Other skin issue (dry skin), Negative: Nl turgor and temperature Neuro Exam: Positive: Normal Speech, Strength at 5/5 X4 ext, Normal Tone, Other (minimal tremor, diphoresis noted forehead) Assessment /Plan Problems (1) Chest pain Status: Resolved Problem Specific Plan: Monitor Clinically Problem Text: negative enzymes, suspect GERD. Continue PPI. (2) Syncope Status: Chronic Response to Treatment: Stable Problem Specific Plan: Monitor Clinically Problem Text: Patient with LifeVest ([employer]) due to history of cardiomyopathy with EF 14-25%. Suspect alcoholism is cause of his cardiomyopathy. Likely candidate for Implantable defibrillator and is using LifeVest as bridge. His vest began giving him signal that it was about to defibrillate, but patient felt OK at the time. After 5 such alerts, he reset the device. According to Dr. eRddy, he was able to communicate to the [facility] representative who confirmed that Mr. Castillo' device was responding to artifact and the step that the patient took at the time to reset it was exactly correct. After the patient reset the device it stopped alerting him. The event naturally caused a great deal of concern to the patient leading to presentation to ER. He has experienced no subsequent syncope events since his last hospital admission when the Vest use was initiated. Will monitor another 24 hours, likely d/c tomorrow if no dysrhythmias. Consider asking for f/u visit with Dr. Lutz tomorrow (3) Alcohol dependence with withdrawal Status: Acute Problem Specific Plan: Monitor Clinically Problem Text: Jittery, diaphoretic this am. Will start Serax 15 q6 hours. (4) Hypomagnesemia Status: Acute Response to Treatment: Improving Problem Text: Just completed IV mag run and will start po repletion. (5) COPD (chronic obstructive pulmonary disease) Status: Chronic Response to Treatment: Stable Problem Text: On nebs. Added nicotine patch. Plan/VTE VTE Prophylaxis Ordered?: Yes (TEDs, sequential, knee-high compression, heparin 5000 units subcutaneous every 8 hours) Plan Diet: Continue Current (no added salt) Activity: Encourage Ambulation Respiratory: Other Respiratory (3 L by nasal cannula) Diagnostics: Check Labs, Repeat Labs in AM, EKG Anticipated Discharge: Home VS, I&O, 24H, [place] [facility] Vital Signs/I&O Vital Signs Date Time Temp Pulse Resp B/P (MAP) Pulse Ox O2 Delivery O2 Flow Rate FiO2 10/23/16 08:51 106 141/89 10/23/16 08:03 17 10/23/16 04:46 99.7 96 Nasal Cannula 3.0 Laboratory Data 24H LABS Laboratory Tests 2 10/22/16 22:18: White Blood Count 8.6, Red Blood Count 4.47, Hemoglobin 14.9, Hematocrit 44.1, Mean Corpuscular Volume 98.6H, Mean Corpuscular Hemoglobin 33.3H, Mean Corpuscular Hemoglobin Concent 33.8, Red Cell Distribution Width 13.8, Platelet Count 181, Neutrophils (%) (Auto) 83.3H, Lymphocytes (%) (Auto) 10.9L, Monocytes (%) (Auto) 3.4, Eosinophils (%) (Auto) 0.2, Basophils (%) (Auto) 0.9, Neutrophils # (Auto) 7.2, Lymphocytes # (Auto) 0.9L, Monocytes # (Auto) 0.3, Eosinophils # (Auto) 0.0, Basophils # (Auto) 0.1, Large Unclassified Cells % 1.3 , Large Unclassified Cells # 0.1, Anion Gap 11, Glomerular Filtration Rate > 60.0, Blood Urea Nitrogen 8, Creatinine 0.55L, Sodium Level 137, Potassium Level 4.3, Chloride Level 98, Carbon Dioxide Level 28, Calcium Level 8.6, Total Creatine Kinase 62, Creatine Kinase MB 1.2, Creatine Kinase MB Relative Index 1.93, Troponin I 0.04, Ethyl Alcohol Level 0.307H 10/22/16 23:35: Blood Gas Bicarbonate Standard 24.0, Arterial Blood pH 7.470H, Arterial Blood Partial Pressure CO2 31.0L, Arterial Blood Partial Pressure O2 123.6H, Arterial Blood Total CO2 23.0, Arterial Blood HCO3 22.1, Arterial Blood Base Excess -0.6 , Arterial Blood Oxygen Saturation 98.5 10/23/16 01:52: Total Creatine Kinase 42, Creatine Kinase MB 1.5, Creatine Kinase MB Relative Index 3.57, Troponin I 0.05# 10/23/16 05:09: Total Creatine Kinase 40, Creatine Kinase MB 1.1, Creatine Kinase MB Relative Index 2.75, Troponin I 0.04, Magnesium Level 1.5L, Thyroid Stimulating Hormone ( TSH) 0.755 CBC/BMP Laboratory Tests 10/22/16 22:18 Red Blood Count 4.47, Mean Corpuscular Volume 98.6 H, Mean Corpuscular Hemoglobin 33.3 H, Mean Corpuscular Hemoglobin Concent 33.8, Red Cell Distribution Width 13.8, Neutrophils (%) (Auto) 83.3 H, Lymphocytes (%) (Auto) 10.9 L, Monocytes (%) (Auto) 3.4, Eosinophils (%) (Auto) 0.2, Basophils (%) ( Auto) 0.9, Neutrophils # (Auto) 7.2, Lymphocytes # (Auto) 0.9 L, Monocytes # ( Auto) 0.3, Eosinophils # (Auto) 0.0, Basophils # (Auto) 0.1, Calcium Level 8.6, Total Creatine Kinase 62 Microbiology Microbiology 10/23/16 Blood Culture, Received Pending Sonu Yoon MD Oct 23, 2016 10:14
[2016-10-23] MEDS: OXAZEPAM 15 MG CAP PO SCH ×3 (11:05→23:27)
[2016-10-23] MEDS: MAGNESIUM OXIDE 400 MG TAB (MAG-OX) PO SCH ×2 (11:05→21:01)
[2016-10-23] MEDS: NICOTINE 21MG/24HR 1 EA TRANSDERMAL TD SCH (11:06)
[2016-10-23] MEDS: IPRATROPIUM 0.5MG/ALBUTEROL 2.5MG INH SOL UD 3ML (DUONEB)(J7620) INH SCH ×4 (11:29→23:20)
--- NOTE | 2016-10-23 12:11 | ECGEPIP ---
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
[2016-10-23] MEDS: FLUTICASONE PROP 0.05% NASAL SPRAY 16 GM (FLONASE) SCH (14:03)
[2016-10-23] MEDS: MONTELUKAST 10 MG TAB PO SCH (14:03)
--- NOTE | 2016-10-23 19:13 | ECGEPIP ---
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
[2016-10-23] MEDS: ONDANSETRON 4 MG TAB (S0181) PO PRN (21:19)
[2016-10-24] VITALS (9 sets, daily range): BP systolic 101–126; BP diastolic 63–95
[2016-10-24] MEDS: IPRATROPIUM 0.5MG/ALBUTEROL 2.5MG INH SOL UD 3ML (DUONEB)(J7620) INH SCH ×4 (03:08→15:11)
[2016-10-24 04:38] LABS: BASO % 0.2 % (0.0-1.0); EOS % 0.3 % (0.0-3.0); LARGE UNSTAINED CELL # 0.1 K/mm3 (0.0-0.4); LARGE UNSTAINED CELL % 1.4 % (0.0-4.0); LYMPH # 1.3 K/mm3 (1.5-4.5); MEAN CORPUSCULAR HEMOGLOBIN 33.8 pg (27.0-33.0); MEAN CORPUSCULAR VOLUME 99.2 fl (80.0-96.0); MONO # 0.5 K/mm3 (0.0-0.8); MONO % 5.4 % (0.0-5.0); NEUTROPHILS # 6.6 K/mm3 (1.8-7.7); NEUTROPHILS % 78.7 % (36.0-66.0); PLATELET COUNT, AUTOMATED 115 k/mm3 (150-450); RED CELL DISTRIBUTION WIDTH 13.9 % (11.5-14.5); WHITE BLOOD COUNT 8.4 K/mm3 (4.0-10.0)
[2016-10-24 04:58] LABS: ANION GAP 11 MEQ/L (8-16); BLOOD UREA NITROGEN 7 MG/DL (7-18); CALCIUM LEVEL 8.4 MG/DL (8.5-10.1); CARBON DIOXIDE LEVEL 26 MEQ/L (21-32); CHLORIDE LEVEL 99 MEQ/L (98-107); CREATININE FOR GFR 0.44 MG/DL (0.70-1.30); GLOMERULAR FILTRATION RATE > 60.0 (>56); GLUCOSE, FASTING 108 MG/DL (70-105); POTASSIUM SERUM 3.8 MEQ/L (3.5-5.1); SODIUM LEVEL 136 MEQ/L (136-145)
[2016-10-24] MEDS: ONDANSETRON 4 MG TAB (S0181) PO PRN ×2 (06:08→13:27)
[2016-10-24] MEDS: HEPARIN SOD (PORCINE) 5000 UNITS/ML VIAL SC SCH ×2 (06:08→14:00)
[2016-10-24] MEDS: OXAZEPAM 15 MG CAP PO SCH ×2 (06:08→11:16)
[2016-10-24] MEDS: ADVAIR HFA 230/21MCG INHALER INH SCH (07:20)
[2016-10-24] MEDS ORDERED: IPRATROPIUM 0.5MG/ALBUTEROL 2.5MG INH SOL UD 3ML (DUONEB)(J7620) INH SCH (08:00)
[2016-10-24] MEDS: FLUTICASONE PROP 0.05% NASAL SPRAY 16 GM (FLONASE) SCH (08:27)
[2016-10-24] MEDS: CALCIUM CARBONATE 500 MG CHEW U/D PO SCH ×2 (08:28→11:57)
[2016-10-24] MEDS: THIAMINE 100 MG TAB PO SCH (08:28)
[2016-10-24] MEDS: MULTIVITAMINS/MINERALS THERAP 1 TAB PO SCH (08:28)
[2016-10-24] MEDS: FOLIC ACID 1 MG TAB PO SCH (08:28)
[2016-10-24] MEDS: PANTOPRAZOLE 40MG TAB (PROTONIX) PO SCH (08:28)
[2016-10-24] MEDS: CitaloPRAM (CeleXA) 20 MG TAB PO SCH (08:28)
[2016-10-24] MEDS: MAGNESIUM OXIDE 400 MG TAB (MAG-OX) PO SCH (08:28)
[2016-10-24] MEDS: NICOTINE 21MG/24HR 1 EA TRANSDERMAL TD SCH (08:29)
[2016-10-24] MEDS: CARVedilol 6.25 MG TAB PO SCH (08:30)
[2016-10-24] MEDS: MONTELUKAST 10 MG TAB PO SCH (11:16)
[2016-10-24] MEDS ORDERED: MAG400TA PO (16:14)
[2016-10-24] MEDS ORDERED: OXAZ15CA4 PO (16:14)
--- NOTE | 2016-10-25 13:28 | DSES ---
DATE OF ADMISSION: 10/22/2016 DATE OF DISCHARGE: 10/24/2016 PRIMARY CARE PROVIDER: Flex Harman ATTENDING TODAY: Dr. Parish HISTORY: This is a 51-year-old male patient who presented to [facility] emergency room with chest pain and weakness. He had been laying in bed feeling weak and exhausted. He went to the grocery store at approximately 5:30 p.m. and his life vest indicated that it was going to produce a shock. He switched it off as he was feeling well. It did this two to three more times before he took the battery out and put it back in and had no more subsequent difficulties. He took the battery out after calling the life vest help line and was instructed to do so to reset the device. Soon thereafter, the patient began having chest pain along his sternum that was reproducible and it became alarming to the patient. He presented to the emergency room. He had negative troponins on evaluation while here. His chest pain resolved with morphine in the emergency room. His life vest has been replaced and has been reactivated. I have spoken with Dr. Lutz who will see the patient in followup this week. The patient has been seen by physical therapy who feels it is safe for discharge. DISCHARGE DIAGNOSES: 1. Chest pain. 2. History of syncope. 3. Alcohol dependence with recent withdrawal. 4. Hypomagnesemia. 5. Chronic obstructive pulmonary disease. DISCHARGE MEDICATIONS: - magnesium oxide 400 mg by mouth twice a day - oxazepam 15 mg three times a day times three days and then twice daily times three days and then daily times three days - [place] 5/325 one tablet every 6 hours as needed for pain - albuterol sulfate 2 puffs inhaled every 4 hours as needed for shortness of breath - DuoNeb inhaled every 6 hours as needed for shortness of breath - carvedilol 6.25 mg by mouth twice a day - citalopram 40 mg daily - Flonase intranasally daily - folic acid 1 mg daily - Incruse Ellipta 62.5 mcg inhaled daily - levocetirizine 5 mg daily - Singulair 10 mg daily - Protonix 40 mg daily - Advair Diskus 500/50 one inhalation twice a day - thiamine 100 mg daily - Spiriva Respimat 2.5 mcg 2 puffs daily - trazodone 50 mg by mouth as needed insomnia before bed DISCHARGE PLAN: To follow up with Dr. Lutz this week. Activity should be as tolerated. Diet should be regular. Followup with Flex Harman this week.
[2016-12-31] MEDS ORDERED: MAGN400T5 PO (19:46)
[2016-12-31] MEDS ORDERED: BUSP15TA47 PO (19:46)
[2016-12-31] MEDS ORDERED: LOSA25TA8 PO (19:46)
[2016-12-31] MEDS ORDERED: ASPI1TAB PO (19:46)
[2016-12-31] MEDS ORDERED: VITA100072 PO (19:46)
[2017-01-05] MEDS ORDERED: COZA50TA PO (16:22)
[2017-01-05] MEDS ORDERED: PRED20TA PO (16:22)
[2017-01-05] MEDS ORDERED: CEFT500T3 PO (16:22)
== END 2016-10-24 17:07 | disposition home or self-care (01) ==
LOC: M ED 21:58 → M ED INP 21:59 → M ICU 10-23 04:17
PROVIDERS: ADMIT Internal Medicine; ATTEND Family Medicine
DX: R07.9 Chest pain, unspecified (principal); R55 Syncope and collapse; F10.230 Alcohol dependence with withdrawal, uncomplicated; E83.42 Hypomagnesemia; J44.9 Chronic obstructive pulmonary disease, unspecified; R53.1 Weakness; I50.40 Unspecified combined systolic (congestive) and diastolic (congestive) heart failure; I11.0 Hypertensive heart disease with heart failure; I42.9 Cardiomyopathy, unspecified; I44.7 Left bundle-branch block, unspecified; K21.9 Gastro-esophageal reflux disease without esophagitis; F32.9 Major depressive disorder, single episode, unspecified; J30.9 Allergic rhinitis, unspecified; Z86.14 Personal history of Methicillin resistant Staphylococcus aureus infection; Z86.19 Personal history of other infectious and parasitic diseases; Z79.899 Other long term (current) drug therapy; Z79.51 Long term (current) use of inhaled steroids; F17.210 Nicotine dependence, cigarettes, uncomplicated; Z99.81 Dependence on supplemental oxygen
CPT/HCPCS: 36415; 36600; 71020; 80048; 80320; 82550; 82553; 82803; 83735; 84443; 85025; 87040; 93000; 96365; 96366; 96372; 96375; 97161; 99285; J1100; J3475

== ENCOUNTER 2016-11-15 20:47 | Emergency (ER) | payer OTHER ==
[~2016-11-15] VITALS: Ht 180.3 cm; Wt 63.6 kg
[~2016-11-15 20:47] MED LIST changes: +MAG400TA PO; +OLOP1OPD; +OXAZ15CA4 PO; +SPIR12.9 INH
[2016-11-15] MEDS ORDERED: HYDR-3363 PO (21:18)
[2016-11-15] MEDS ORDERED: dexameTHASONE 20 MG/5 ML VIAL (J1100) IV ONE (23:00)
[2016-11-15 23:10] LABS: ANION GAP 9 MEQ/L (8-16); BLOOD UREA NITROGEN 7 MG/DL (7-18); CALCIUM LEVEL 8.7 MG/DL (8.5-10.1); CARBON DIOXIDE LEVEL 28 MEQ/L (21-32); CHLORIDE LEVEL 102 MEQ/L (98-107); CREATININE FOR GFR 0.39 MG/DL (0.70-1.30); GLOMERULAR FILTRATION RATE > 60.0 (>56); GLUCOSE, FASTING 118 MG/DL (70-105); POTASSIUM SERUM 3.6 MEQ/L (3.5-5.1); SODIUM LEVEL 139 MEQ/L (136-145)
[2016-11-15 23:11] LABS: BASO % 0.2 % (0.0-1.0); EOS # 0.1 K/mm3 (0.0-0.50); EOS % 2.1 % (0.0-3.0); LARGE UNSTAINED CELL # 0.1 K/mm3 (0.0-0.4); LARGE UNSTAINED CELL % 0.9 % (0.0-4.0); LYMPH % 15.2 % (24.0-44.0); MEAN CORPUSCULAR HEMOGLOBIN 34.1 pg (27.0-33.0); MEAN CORPUSCULAR HGB CONC 34.9 g/dl (32.0-36.5); MEAN CORPUSCULAR VOLUME 97.8 fl (80.0-96.0); MONO # 0.3 K/mm3 (0.0-0.8); MONO % 3.8 % (0.0-5.0); NEUTROPHILS # 5.3 K/mm3 (1.8-7.7); NEUTROPHILS % 77.7 % (36.0-66.0); RED CELL DISTRIBUTION WIDTH 13.1 % (11.5-14.5); WHITE BLOOD COUNT 6.8 K/mm3 (4.0-10.0)
[2016-11-15 23:36] LABS: PLATELET COUNT, AUTOMATED 79 k/mm3 (150-450)
[2016-11-16] MEDS ORDERED: PRED20TA PO (03:06)
[2016-11-16 03:19] VITALS: BP 143/94
--- NOTE | 2016-11-16 06:15 | ECGEPIP ---
Stationary ECG Study [facility] - ED Test Date: 2016-11-15 Pat Name: GORDON SERNA Department: Room: - Gender: M Senior Label Specialist: : 1965 Requested By: DESMOND BARRERA Order Number: [id number] Reading MD: Stephan Myers Measurements Intervals [place] Rate: 77 P: 59 MS: 172 QRS: 78 QRSD: 151 T: 84 QT: 455 QTc: 518 Interpretive Statements SINUS RHYTHM LBBB SIMILAR TO 10/23/16 Electronically Signed On 11-16-2016 6:15:39 EDT by Stephan Myers
--- NOTE | 2016-11-16 08:05 | REP ---
PA and lateral chest: Comparison is 10/16, 08/16/2016. Lung garcia are clear. Cardiac size is normal. The radha, mediastinum, and bony thorax are unremarkable. There are numerous artifacts from a defibrillator vest. Impression: There are no acute cardiopulmonary findings. Signed by Stalin Pantoja MD 11/16/2016 07:56 A
[2016-12-31] MEDS ORDERED: VITA100072 PO (19:46)
[2016-12-31] MEDS ORDERED: MAGN400T5 PO (19:46)
[2016-12-31] MEDS ORDERED: BUSP15TA47 PO (19:46)
[2016-12-31] MEDS ORDERED: LOSA25TA8 PO (19:46)
[2016-12-31] MEDS ORDERED: ASPI1TAB PO (19:46)
[2017-01-05] MEDS ORDERED: COZA50TA PO (16:22)
[2017-01-05] MEDS ORDERED: CEFT500T3 PO (16:22)
[2017-01-05] MEDS ORDERED: PRED20TA PO (16:22)
== END 2016-11-16 03:40 | disposition home or self-care (01) ==
LOC: M ED 20:47 → EDBD 20:47 → M ED 11-16 03:40
DX: J44.9 Chronic obstructive pulmonary disease, unspecified (principal); K21.9 Gastro-esophageal reflux disease without esophagitis; F32.9 Major depressive disorder, single episode, unspecified; K74.60 Unspecified cirrhosis of liver; F17.200 Nicotine dependence, unspecified, uncomplicated; Z91.040 Latex allergy status; Z79.899 Other long term (current) drug therapy; Z79.51 Long term (current) use of inhaled steroids
CPT/HCPCS: 71020; 80048; 82550; 82553; 85025; 93000; 96374; 99284; J1100

== ENCOUNTER 2017-01-17 18:34 | Inpatient (IN) | payer OTHER ==
[~2017-01-17] VITALS: Ht 180.3 cm; Wt 65.1 kg
[~2017-01-17 18:34] MED LIST changes: +ASPI1TAB PO; +CEFT500T3 PO; +COZA50TA PO; +MAGN400T5 PO; +VITA100072 PO
[2017-01-17 19:23] LABS: BASO % 0.4 % (0.0-1.0); EOS # 0.3 10^3/uL (0.0-0.50); EOS % 2.2 % (0.0-3.0); IMMATURE GRANULOCYTE % 0.4 % (0-0); LYMPH # 2.6 10^3/uL (1.5-4.5); LYMPH % 23.3 % (24.0-44.0); MEAN CORPUSCULAR HEMOGLOBIN 32.8 pg (27.0-33.0); MEAN CORPUSCULAR HGB CONC 35.6 g/dl (32.0-36.5); MEAN CORPUSCULAR VOLUME 92.2 fl (80.0-96.0); MONO % 9.2 % (0.0-5.0); NEUTROPHILS # 7.3 10^3/uL (1.8-7.7); NEUTROPHILS % 64.5 % (36.0-66.0); PLATELET COUNT, AUTOMATED 194 10^3/uL (150-450); RED CELL DISTRIBUTION WIDTH 13.3 % (11.5-14.5); WHITE BLOOD COUNT 11.3 10^3/uL (4.0-10.0)
--- NOTE | 2017-01-17 19:44 | REP ---
Portable chest x-ray: Sitting AP view: History: Chest pain. Comparison chest x-ray: December 31, 2016, November 15, 2016, and October 22, 2016. Findings: EKG monitoring electrodes and defibrillation pads overlie the chest. Oxygen delivery tubing is seen. The lungs are symmetrically aerated and free of infiltrate. Pleural angles are sharp. Heart size is not enlarged. Pulmonary vasculature is not increased. Impression: No active disease. Cardiac monitoring and defibrillating leads overlie the chest. Signed by Sudarshan Louis MD 01/17/2017 07:49 P
[2017-01-17 19:48] LABS: ANION GAP 9 MEQ/L (8-16); BLOOD UREA NITROGEN 8 MG/DL (7-18); CALCIUM LEVEL 8.3 MG/DL (8.5-10.1); CARBON DIOXIDE LEVEL 25 MEQ/L (21-32); CHLORIDE LEVEL 107 MEQ/L (98-107); CREATININE FOR GFR 0.56 MG/DL (0.70-1.30); GLOMERULAR FILTRATION RATE > 60.0 (>56); GLUCOSE, FASTING 114 MG/DL (70-105); POTASSIUM SERUM 3.5 MEQ/L (3.5-5.1); SODIUM LEVEL 141 MEQ/L (136-145)
[2017-01-18] MEDS ORDERED: IPRATROPIUM 0.5MG/ALBUTEROL 2.5MG INH SOL UD 3ML (DUONEB)(J7620) NEB PRN (00:15)
[2017-01-18] MEDS ORDERED: THIAMINE 100 MG TAB PO ONE (00:15)
[2017-01-18] MEDS ORDERED: MULTIVITAMINS/MINERALS THERAP 1 TAB PO ONE (00:15)
[2017-01-18] MEDS ORDERED: FOLIC ACID 1 MG TAB PO ONE (00:15)
[2017-01-18 00:59] LABS: ALBUMIN 3.5 GM/DL (3.2-5.2); ALBUMIN/GLOBULIN RATIO 1.03 (1.00-1.93); ALKALINE PHOSPHATASE 62 U/L (45-117); ALT/SGPT 33 U/L (12-78); AST/SGOT 26 U/L (7-37); BILIRUBIN,DIRECT 0.1 MG/DL (0.0-0.2); BILIRUBIN,TOTAL 0.4 MG/DL (0.2-1.0); PHOSPHORUS LEVEL 2.3 MG/DL (2.5-4.9); TOTAL PROTEIN 6.9 GM/DL (6.4-8.2)
[2017-01-18 01:08] LABS: MAGNESIUM LEVEL 1.8 MG/DL (1.8-2.4)
[2017-01-18] MEDS: SENOKOT S TAB PO SCH ×2 (01:34→07:59)
[2017-01-18 03:30] VITALS: BP 155/81
[2017-01-18] MEDS ORDERED: PRED10TA2 PO (05:41)
[2017-01-18] MEDS ORDERED: LOSA50TA20 PO (05:41)
[2017-01-18] MEDS ORDERED: ADVI200T PO (05:44)
[2017-01-18] MEDS ORDERED: VITA50TA PO (05:44)
[2017-01-18 06:46] LABS: MEAN CORPUSCULAR HGB CONC 34.9 g/dl (32.0-36.5); MEAN CORPUSCULAR VOLUME 91.7 fl (80.0-96.0); PLATELET COUNT, AUTOMATED 154 10^3/uL (150-450); RED CELL DISTRIBUTION WIDTH 13.4 % (11.5-14.5); WHITE BLOOD COUNT 7.3 10^3/uL (4.0-10.0)
[2017-01-18 07:09] LABS: ANION GAP 8 MEQ/L (8-16); BLOOD UREA NITROGEN 6 MG/DL (7-18); CALCIUM LEVEL 8.2 MG/DL (8.5-10.1); CARBON DIOXIDE LEVEL 29 MEQ/L (21-32); CHLORIDE LEVEL 102 MEQ/L (98-107); CREATININE FOR GFR 0.43 MG/DL (0.70-1.30); GLOMERULAR FILTRATION RATE > 60.0 (>56); GLUCOSE, FASTING 83 MG/DL (70-105); POTASSIUM SERUM 3.3 MEQ/L (3.5-5.1); SODIUM LEVEL 139 MEQ/L (136-145)
[2017-01-18] MEDS ORDERED: CARVedilol 12.5 MG TAB PO SCH (09:00)
[2017-01-18] MEDS ORDERED: FLUTICASONE PROP 0.05% NASAL SPRAY 16 GM (FLONASE) SCH (09:00)
[2017-01-18] MEDS ORDERED: CYANOCOBALAMIN 500 MCG TAB PO SCH (09:00)
[2017-01-18] MEDS ORDERED: predniSONE 50 MG TAB PO SCH (09:00)
[2017-01-18] MEDS ORDERED: THIAMINE 100 MG TAB PO SCH (09:00)
[2017-01-18] MEDS ORDERED: ASPIRIN 81 MG ENTERIC TAB PO SCH (09:00)
[2017-01-18] MEDS ORDERED: LOSARTAN 25 MG TAB PO SCH (09:00)
[2017-01-18] MEDS ORDERED: ENOXAPARIN 40 MG/0.4 ML SYRINGE (J1650) SC SCH (09:00)
[2017-01-18] MEDS ORDERED: PANTOPRAZOLE 40MG TAB (PROTONIX) PO SCH (09:00)
[2017-01-18] MEDS ORDERED: CitaloPRAM (CeleXA) 20 MG TAB PO SCH (09:00)
[2017-01-18] MEDS ORDERED: FOLIC ACID 1 MG TAB PO SCH (09:00)
[2017-01-18] MEDS ORDERED: MONTELUKAST 10 MG TAB PO SCH (09:00)
[2017-01-18] MEDS ORDERED: ADVAIR HFA 230/21MCG INHALER INH SCH (09:00)
[2017-01-18] MEDS ORDERED: busPIRone 5 MG TAB PO SCH (09:00)
[2017-01-18] MEDS ORDERED: MAGNESIUM OXIDE 400 MG TAB (MAG-OX) PO SCH (09:00)
--- NOTE | 2017-01-18 09:10 | HPEPDOC ---
General Date of Admission 01/18/17 Primary Care Physician: Selwyn Johnson MD Other Providers Events Intern: Dr. Pineda Roll On Worker: Dr. West Chief Complaint 51 yo M drove himself to ED because his LifeVest activated 6 times today ~4pm while he was walking dog and with nonstrenuous mvmt. Pt states he was asymptomatic, and called the [employer], who clarified that his LifeVest was actually activated 10 times today and that he had multiple episodes of HR >150. PMH includes COPD on chronic 3L o2 at home, HTN, nonischemic dilated cardiomyopathy, hx alcohol & tobacco abuse, and severe systolic dysfxn, EF 15-20%, for which he wears defibrillator vest since ~3 months ago, and may possibly get permanent defibrillator implanted. Except for chronic dry cough, dyspnea, and wheezing from COPD, pt denies all ROS, including chest pain, tightness, pressure, and n/v, fever, chills, lightheadedness. Most recently was admitted to hospital on 12/31/16 due to sepsis 2/2 healthcare associated pneumonia. In ED, pt was tachycardic, with normal electrolytes and cardiac markers. CXR was negative. WBC was 11.3, but afebrile and asymptomatic. Pt normally is a pt of Dr. Lutz, and per ED staff reports, pt will be seen by Cardiology in the am. Home Medications Scheduled (Incruse Ellipta) 62.5 Mcg/Inh Inh, 1 PUFF INH DAILY, (Reported) (Flonase Allergy Relief) 50 Mcg/Act Spr, 1 SPRAY NA DAILY, (Reported) EACH NOSTRIL Aspirin (Aspirin 81) 81 Mg Tab, 81 MG PO DAILY, (Reported) Buspirone HCl (Buspirone HCl) 15 Mg Tab, 15 MG PO BID, (Reported) Carvedilol (Carvedilol) 12.5 Mg Tab, 12.5 MG PO BID Citalopram Hydrobromide (Citalopram Hydrobromide) 40 Mg Tab, 40 MG PO DAILY, ( Reported) Cyanocobalamin (Vitamin B12) 1,000 Mcg Tab, 1,000 MCG PO DAILY, (Reported) Folic Acid (Folic Acid) 1 Mg Tab, 1 MG PO DAILY, (Reported) Levocetirizine Hydrochloride (Levocetirizine Dihydrochl) 5 Mg Tab, 5 MG PO DAILY , (Reported) Losartan Potassium (Cozaar) 25 Mg Tab, 25 MG PO DAILY Magnesium Oxide (Magnesium Oxide 400) 400 Mg Tab, 400 MG PO DAILY, (Reported) Montelukast Sodium (Singulair) 10 Mg Tab, 10 MG PO DAILY, (Reported) Pantoprazole Sodium (Pantoprazole Sodium) 40 Mg Tab, 40 MG PO DAILY, (Reported) Prednisone (Prednisone) 10 Mg Tab, 50 MG PO DAILY, (Reported) 50mg for 1 wk then, 40mg for 1 wk then, 30mg for 1 wk then, 20mg for 1 wk then, 10mg for 1 wk then, 5mg for remainder Salmeterol/Fluticasone (Advair Diskus 500-50 Mcg/Dose) 28 Puff/Inhaler Aerp, 1 PUFF INH BID, (Reported) Thiamine HCl (Vitamin B-1) 50 Mg Tab, 50 MG PO DAILY, (Reported) Trazodone HCl (Trazodone HCl) 50 Mg Tab, 50 MG PO QHSP, (Reported) Scheduled PRN Albuterol Sulfate (Ventolin Hfa) 200 Puff/8 Gm Aers, 2 PUFF INH Q4H PRN for SOB/ WHEEZING, (Reported) Albuterol/Ipratropium (Ipratropium Apex/Albut 0.5-2.5 (3) mg/3Ml) 1 Sen Sen, 1 SEN INH Q4H PRN for SOB/WHEEZING, (Reported) Hydroxyzine HCl (Hydroxyzine HCl) 25 Mg Tab, 25 MG PO TID PRN for ITCHING, ( Reported) Ibuprofen (Advil) 200 Mg Tab, 600 MG PO Q6H PRN for BACK PAIN, (Reported) Allergies Coded Allergies: Latex (Verified Allergy, Intermediate, HIVES, EDMA, 11/13/12) Past Medical History Medical History severe systolic dysfxn, EF 15-20%, wearing defibrillator vest since ~3 months ago COPD on chronic 3L o2 at home chronic hypoxic resp failure HTN Nonischemic dilated cardiomyopathy hx alcohol abuse hx tobacco abuse Depression folic acid deficiency 2/2 poor nutrition hx community-acquired pneumonia Surgical History Variceal bleeding ' Cardiac cath, [place]' 11/2016 Social History Tobacco: 1ppd for 40+ yrs Alcohol: abuse hx, variceal bleeds, last drink today Illicit drugs: denies Lives in warehouse in mold/mildew because "girlfriend drinks excessively and I need to be away from that" Review of Symptoms Constitutional: Denies: Chills, Fever Eyes: Denies: Pain, Vision change ENT: Denies: Head Aches, Ear Pain, Dysphagia, Epistaxis Skin: Reports: Dry (chronic) Pulmonary: Reports: Dyspnea, Cough (dry), Denies: Pleuritic Chest Pain Cardiovascular: Denies: Chest Pain, Edema, Lt Headedness Gastrointestinal: Denies: Nausea, Vomiting, Abdominal Pain, Diarrhea, Constipation, Melena, Hematochezia Genitourinary: Denies: Hematuria Musculoskeletal: Denies: Joint Pain, Muscle Pain Neurological: Denies: Weakness, Numbness Physical Examination General Exam: Positive: Alert, Cooperative, No Acute Distress Eye Exam: Positive: PERRLA, Conjunctiva & lids normal, EOMI, Other Eye Symptoms (dilated pupils ~6mm), Negative: Ptosis ENT Exam: Positive: Atraumatic, Mucous membr. moist/pink, Tongue Midline, Nares Patent, Pinna Normal, Other ENT (bleeding small lesions perioral and on chin area. Pt unaware of how it happened) Neck Exam: Positive: Supple, +2 carotid pulse wo bruit, Negative: JVD, thyromegaly, Lymphadenopathy Chest Exam: Positive: Wheezing (course, loud, diffuse), Negative: Clear to auscultation Heart Exam: Positive: Tachycardic, Regular Rhythm (distant heart sounds), Normal S1, Normal S2 Abdomen Exam: Positive: Normal bowel sounds, Soft, Negative: Tenderness Extremity Exam: Positive: Normal pulses, Negative: Cyanosis, Edema, Tenderness, Swelling Skin Exam: Positive: Nl turgor and temperature, Lesion (mouth area, bleeding) Neuro Exam: Positive: Normal Speech, Strength at 5/5 X4 ext, Normal Tone, Sensation Intact, Cranial Nerves 3-12 NL Psych Exam: Positive: Mood NL, Oriented x 3, Other (verbose, tangential speech) Vital Signs Vital Signs Date Time Temp Pulse Resp B/P (MAP) Pulse Ox O2 Delivery O2 Flow Rate FiO2 01/17/17 19:40 01/17/17 18:34 98.1 126 18 Nasal Cannula 3.0 Laboratory Data Labs 24H Laboratory Tests 2 01/17/17 19:13: Immature Granulocyte % (Auto) 0.4H, White Blood Count 11.3H, Red Blood Count 3.96L, Hemoglobin 13.0L, Hematocrit 36.5L, Mean Corpuscular Volume 92.2, Mean Corpuscular Hemoglobin 32.8, Mean Corpuscular Hemoglobin Concent 35.6, Red Cell Distribution Width 13.3, Platelet Count 194, Neutrophils (%) (Auto) 64.5, Lymphocytes (%) (Auto) 23.3L, Monocytes (%) (Auto) 9.2H, Eosinophils (%) (Auto) 2.2, Basophils (%) (Auto) 0.4, Neutrophils # (Auto) 7.3, Lymphocytes # (Auto) 2.6, Monocytes # (Auto) 1.0H, Eosinophils # (Auto) 0.3, Basophils # (Auto) 0.0, Immature Granulocyte # (Auto) 0.0, Nucleated Red Blood Cells % (auto) 0.0, Anion Gap 9, Glomerular Filtration Rate > 60.0, Blood Urea Nitrogen 8, Creatinine 0.56L, Sodium Level 141, Potassium Level 3.5, Chloride Level 107, Carbon Dioxide Level 25, Calcium Level 8.3L, Total Creatine Kinase 60, Creatine Kinase MB 1.0, Creatine Kinase MB Relative Index 1.66, Troponin I < 0.02, NT-Pro -B-Type Natriuretic Peptide 35 CBC/BMP Laboratory Tests 01/17/17 19:13 Red Blood Count 3.96 L, Mean Corpuscular Volume 92.2, Mean Corpuscular Hemoglobin 32.8, Mean Corpuscular Hemoglobin Concent 35.6, Red Cell Distribution Width 13.3, Neutrophils (%) (Auto) 64.5, Lymphocytes (%) (Auto) 23.3 L, Monocytes (%) (Auto) 9.2 H, Eosinophils (%) (Auto) 2.2, Basophils (%) ( Auto) 0.4, Neutrophils # (Auto) 7.3, Lymphocytes # (Auto) 2.6, Monocytes # (Auto ) 1.0 H, Eosinophils # (Auto) 0.3, Basophils # (Auto) 0.0, Calcium Level 8.3 L, Total Creatine Kinase 60 Assessment/Plan Tachycardia, with trigger of LifeVest Per defibrillator vest company [employer], LifeVest was activated 10 times today. Pt reports to have no symptoms and states it was triggered from nonexertional movements. Pt presented to ED in sinus tach with HR 126, which normalized spontaneously. Cardiac markers and EKG negative. Electrolytes normal. Continue home Coreg, Donny, ASA 81 Cardiology consulted. A pt of Dr. Lutz in outpatient. Appreciate his input. Leukocytosis Possibly reactionary. Pt is also on steroid for recent admission 2 weeks ago for HCAP. Afebrile and asymptomatic. Negative CXR. Monitor Hx HCAP admitted most recently 12/31/16 for HCAP and is on steroid taper. Continue Prednisone 50mg. Non-ischemic severe diastolic dysfunction EF of 15-20%. Continue defibrillator vest with possible future permanent implant , and on telemetry. EKG in ED was sinus rhythm, no signs of ischemia or infarct Continue ASA 81mg Also linked to his Dilated Cardiomyopathy, see below. Dilated Cardiomyopathy pt is longstanding alcoholic. See above Hx alcohol abuse most recent drink was 2 glasses of Vodka today. Pt has no tremors or signs of withdrawal. previous hx of variceal bleed ligation in . Continue home Folate, Thiamine, Protonix, Cyanocobalamin. on CIWA protocol COPD continue nebs and o2. Pt normally on 3L o2 at home Hx tobacco abuse possibly consider Nicotene patch and provide cessation counseling Insomnia Trazodone Depression Celexa Anxiety Buspirone DVT ppx MAHAD/SCD. Lovenox injections Plan / VTE VTE Prophylaxis Ordered?: Yes (Lovenox) GME ATTESTATION ATTENDING NOTE I have seen and examined the patient as did the resident I have discussed the case and reviewed the plan with her. I concur with her findings on HX and PE and agree with her A&P with the following Additions Exceptions Patient with triggered life vest requiring further cards w/u, eval and Recommendation. ARIC MCELROY DO Jan 18, 2017 00:06 MERCED ONEILL MD Jan 19, 2017 06:44
[2017-01-18] MEDS ORDERED: hydrOXYzine 25 MG TAB PO PRN (09:15)
[2017-01-18] MEDS ORDERED: ALBUTEROL 90 MCG/ACT 8GM HFA INHALER INH PRN (09:15)
[2017-01-18] MEDS ORDERED: traZODone 50 MG TAB PO PRN (09:15)
[2017-01-18] MEDS ORDERED: IBUPROFEN 600 MG TAB PO PRN (09:15)
--- NOTE | 2017-01-18 09:31 | ECGEPIP ---
Stationary ECG Study [facility] - ED Test Date: 2017-01-17 Pat Name: GORDON SERNA Department: Room: [place] [address] Gender: M Hide Sorter: khoi : 1965 Requested By: TEODORA Hill Order Number: [id number] Reading MD: Esther Harvey Measurements Intervals [place] Rate: 102 P: [place]: 0 QRS: 36 QRSD: 104 T: 65 QT: 341 QTc: 445 Interpretive Statements SINUS RHYTHM LOW VOLTAGE LIMB ABNORMAL RHYTHM ECG LESS PRONOUNCED CHANGES COMPARED 01/01/17 Electronically Signed On 01-18-2017 9:31:26 EST by Esther Harvey
--- NOTE | 2017-01-18 10:09 | CR ---
DATE OF CONSULTATION: 01/18/2017 INDICATION: Tachycardia. HISTORY OF PRESENT ILLNESS: Mr. Castillo is well known to me. He is a pleasant 51-year-old man who has dilated cardiomyopathy very likely related to alcohol consumption. He was seen in the emergency room yesterday evening after he got several alarms from his LifeVest. After he had alarmed for six times, to the best of his recollection, he got really concerned, called the [employer], and when he did not get a straightforward answer as to what was going on he came to emergency room. I was contacting the company myself yesterday and we were able to get their transmissions. It turns out that the alarms went on for episodes of sinus tachycardia. The patient tells me that he was doing some light activity like climbing 3-4 stairs at the time, but nothing overly strenuous and did not have any obvious problems. He was always able to deactivate the device and never received defibrillator shock. This morning he feels better and does not have any complaints and feels that he is at his baseline. PAST MEDICAL HISTORY: 1. Nonischemic cardiomyopathy, on diagnosis the left ventricular ejection fraction was in the neighborhood of 15-20%. 2. Chronic obstructive pulmonary disease (COPD). 3. History of alcohol use, currently drinking two drinks a day. 4. Hypertension. 5. Depression. SURGICAL HISTORY: Positive for variceal ligation. Left ear surgery. HOME MEDICATIONS: Include: - aspirin 81 - Coreg 6.25 twice a day - citalopram 40 a day - vitamin B12 - Flonase - folic acid - hydroxyzine - losartan 25 mg a day - Protonix - Advair Diskus - thiamine 100 - trazodone 50 at night ALLERGIES: 1. He is allergic to LATEX. SOCIAL HISTORY: The patient is currently single. He has a very difficult living situation. He smokes about half a pack a day and he has a longstanding history of alcohol abuse. He has been sober numerous times on and off, but currently admits to drinking two drinks a day. FAMILY HISTORY: Not relevant for his situation. His father of sepsis. His mother has high blood pressure. REVIEW OF SYSTEMS: He denies any recent fever, chills, nausea or vomiting and diarrhea. He has New Heart Association class III dyspnea. No chest pain. No sensation of palpitations. No syncope and no actual LifeVest discharges. No peripheral edema. PHYSICAL EXAMINATION: Mr. Castillo is a pleasant middle-aged man who appears nervous and somewhat anxious. Last set of vital signs blood pressure 169/87, heart rate has been in 60s and on telemetry he did not have any arrhythmias overnight. Saturation is in the 90s on 3 liters of oxygen. He is alert, oriented and appropriate. His eyelids are swollen and he has obvious redness of the conjunctiva bilaterally, but more on his right eye. His JVP is not up. Lungs reveal fair air movement, but I do not appreciate any wheezing or crackles. Heart exam somewhat muffled heart sounds, but regular rhythm. No gallop or rub. Abdomen is soft. There is no peripheral edema. Neurologically he is intact. His skin is very dry. Laboratory luna, CBC hemoglobin 11, hematocrit 33, platelet count 154,000. Basic metabolic panel is normal but for potassium of 3.3. Cardiac enzymes were negative and surprisingly, NT-Pro-BNP was only 35. ASSESSMENT/PLAN: Mr. Castillo is a 51-year-old man who has dilated cardiomyopathy and presents with several episodes of tachycardia. I am not quite sure what is the course, but an analysis of his strips from [facility] indicate that it was sinus tachycardia. I would recommend to increase his carvedilol to 12.5 mg twice a day from current dose. Otherwise, I think he can continue his chronic medications. His low BNP indicates that he probably does not need diuretics. Otherwise, he would like to go home and provided he take his morning medicine and is able to ambulate without extreme tachycardia, I think he can be released.
[2017-01-18 10:30] VITALS: BP 169/87
[2017-01-18 13:34] VITALS: BP 171/86
[2017-01-18] MEDS ORDERED: CARV12.5 PO (14:34)
[2017-01-18] MEDS ORDERED: COZA1TAB PO (15:39)
[2017-01-18] MEDS ORDERED: CARVedilol 6.25 MG TAB PO SCH (21:00)
[2017-01-18] MEDS ORDERED: LOSARTAN 50 MG TAB PO SCH (21:00)
--- NOTE | 2017-01-20 04:08 | DSES ---
DATE OF ADMISSION: 01/18/2017 DATE OF DISCHARGE: 01/18/2017 PRIMARY CARE PROVIDER: JOSELITO Muller. ATTENDING PHYSICIAN: Kady Xiong MD. CONSULTING PHYSICIAN: Dr. Lutz. INVASIVE PROCEDURES: None. PRINCIPAL DIAGNOSIS: Sinus tachycardia. SECONDARY DIAGNOSES: 1. Nonischemic cardiomyopathy. 2. Chronic obstructive pulmonary disease (COPD). 3. History of alcohol use, currently drinking two drinks a day. 4. Hypertension. 5. Depression. SUMMARY STATEMENT: This is a 51-year-old man with a history of dilated cardiomyopathy who presented to the emergency room on date of admission after he received several alarms from his LifeVest. Dr. Lutz reviewed the transmissions of the LifeVest and found him to be in sinus tachycardia intermittently. Patient reports that at the time of these events he was likely climbing a couple of stairs. The patient reported he was always able to deactivate the device and he never received a defibrillator shock. Dr. Lutz increased his carvedilol to 12.5 mg twice a day from his previous dose of 6.25 mg twice a day. Thereafter, patient's heart rate was well controlled in the 50s to 60s at rest and to the 90s with activity. He felt well and he was discharged home in stable condition. DISCHARGE PLAN: DISCHARGE MEDICATIONS: New medication: - carvedilol 12.5 mg by mouth twice a day Continued medications: - albuterol sulfate two puffs every 4 hours as needed for shortness of breath - aspirin 81 mg by mouth daily - buspirone 15 mg twice daily - citalopram 40 mg by mouth daily - vitamin B12 1000 mcg daily - Flonase one spray in each nostril daily - folic acid 1 mg by mouth daily - hydroxyzine 25 mg three times daily as needed for itching - ibuprofen 600 mg every 6 hours as needed for back pain - Incruse Ellipta 62.5 mcg per inhalation daily - levocetirizine 5 mg by mouth daily - magnesium oxide 400 mg by mouth daily - Singulair 10 mg by mouth daily - pantoprazole 40 mg by mouth daily - prednisone 10 mg take 50 mg by mouth daily - Advair 500/50 mcg per dose one puff by inhalation twice daily - thiamine 50 mg by mouth daily - trazodone 50 mg nightly - losartan 25 mg daily FOLLOWUP: With Ana Cristina Sanderson in 1 week. PENDING STUDIES: None. DIET: Low-fat, low-cholesterol diet. ACTIVITY: As tolerated. CONDITION: Stable. PROGNOSIS: Good.
== END 2017-01-18 16:41 | disposition home or self-care (01) | DRG 201 ==
LOC: M ED 18:34 → M ED INP 01-18 01:38 → M PCU 01-18 13:23
PROVIDERS: ADMIT Internal Medicine; ATTEND Family Medicine
DX: R00.0 Tachycardia, unspecified (principal); J96.11 Chronic respiratory failure with hypoxia; I42.6 Alcoholic cardiomyopathy; Z99.81 Dependence on supplemental oxygen; J44.9 Chronic obstructive pulmonary disease, unspecified; E53.8 Deficiency of other specified B group vitamins; I10 Essential (primary) hypertension; Z79.82 Long term (current) use of aspirin; Z79.52 Long term (current) use of systemic steroids; Z79.899 Other long term (current) drug therapy; Z91.040 Latex allergy status; F10.10 Alcohol abuse, uncomplicated; F17.210 Nicotine dependence, cigarettes, uncomplicated; G47.00 Insomnia, unspecified; F32.9 Major depressive disorder, single episode, unspecified; F41.9 Anxiety disorder, unspecified

== ENCOUNTER 2017-02-05 07:49 | Emergency (ER) | payer OTHER ==
[~2017-02-05] VITALS: Ht 180.3 cm; Wt 68.2 kg
[~2017-02-05 07:49] MED LIST changes: +ADVI200T PO; +CARV12.5 PO; +COZA1TAB PO; +LOSA50TA20 PO
--- NOTE | 2017-02-05 08:41 | ECGEPIP ---
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
[2017-02-05 08:43] LABS: BASO % 0.8 % (0.0-1.0); EOS # 0.2 10^3/uL (0.0-0.50); EOS % 5.7 % (0.0-3.0); IMMATURE GRANULOCYTE % 0.3 % (0-0); LYMPH # 0.9 10^3/uL (1.5-4.5); LYMPH % 26.3 % (24.0-44.0); MEAN CORPUSCULAR HEMOGLOBIN 32.3 pg (27.0-33.0); MEAN CORPUSCULAR HGB CONC 35.2 g/dl (32.0-36.5); MEAN CORPUSCULAR VOLUME 91.6 fl (80.0-96.0); MONO # 0.3 10^3/uL (0.0-0.8); MONO % 8.8 % (0.0-5.0); NEUTROPHILS # 2.1 10^3/uL (1.8-7.7); NEUTROPHILS % 58.1 % (36.0-66.0); RED CELL DISTRIBUTION WIDTH 14.4 % (11.5-14.5); WHITE BLOOD COUNT 3.5 10^3/uL (4.0-10.0)
[2017-02-05 08:49] LABS: ALBUMIN 3.6 GM/DL (3.2-5.2); ALKALINE PHOSPHATASE 55 U/L (45-117); ALT/SGPT 68 U/L (12-78); ANION GAP 12 MEQ/L (8-16); AST/SGOT 85 U/L (7-37); BILIRUBIN,DIRECT 0.1 MG/DL (0.0-0.2); BILIRUBIN,TOTAL 0.6 MG/DL (0.2-1.0); BLOOD UREA NITROGEN 7 MG/DL (7-18); CALCIUM LEVEL 8.1 MG/DL (8.5-10.1); CARBON DIOXIDE LEVEL 24 MEQ/L (21-32); CHLORIDE LEVEL 104 MEQ/L (98-107); CREATININE FOR GFR 0.58 MG/DL (0.70-1.30); GLOMERULAR FILTRATION RATE > 60.0 (>56); GLUCOSE, FASTING 98 MG/DL (70-105); POTASSIUM SERUM 3.8 MEQ/L (3.5-5.1); SODIUM LEVEL 140 MEQ/L (136-145); TOTAL PROTEIN 7.2 GM/DL (6.4-8.2)
[2017-02-05] MEDS ORDERED: ASPIRIN ENTERIC 325 MG TAB PO SCH (09:00)
[2017-02-05 09:03] LABS: IMMATURE PLATELET FRACTION % 12.3 % (0.0-10.9); PLATELET COUNT, AUTOMATED 87 10^3/uL (150-450)
--- NOTE | 2017-02-05 10:01 | REP ---
REASON: Chest pain. COMPARISON: 01/17/2017. The technique utilized in obtaining the radiograph has magnified the cardiac silhouette and accentuated the interstitial markings. FINDINGS: The superior mediastinal structures are midline. The cardiac silhouette is unremarkable in size, shape, and position. The diaphragmatic surfaces of the lungs are regular, and the costophrenic angles are clear. The pulmonary garcia are clear. The imaged osseous structures are intact. IMPRESSION: There is no acute cardiopulmonary disease. Signed by Hung Bustillo DO 02/05/2017 10:28 A
[2017-02-05] MEDS ORDERED: OXAZEPAM 15 MG CAP PO ONE (10:30)
[2017-02-05 11:50] VITALS: BP 161/101
--- NOTE | 2017-02-05 18:10 | ECGEPIP ---
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
== END 2017-02-05 11:56 | disposition home or self-care (01) ==
LOC: EDBD 07:49 → M ED 07:49
DX: F10.129 Alcohol abuse with intoxication, unspecified (principal); I10 Essential (primary) hypertension; E78.5 Hyperlipidemia, unspecified; J44.9 Chronic obstructive pulmonary disease, unspecified; F33.9 Major depressive disorder, recurrent, unspecified; F17.210 Nicotine dependence, cigarettes, uncomplicated; Z79.51 Long term (current) use of inhaled steroids; Z79.52 Long term (current) use of systemic steroids; Z79.899 Other long term (current) drug therapy; Z91.040 Latex allergy status; Z87.19 Personal history of other diseases of the digestive system

== ENCOUNTER 2017-03-01 20:55 | Emergency (ER) | payer OTHER ==
[2017-03-01] MEDS: dexameTHASONE 20 MG/5 ML VIAL (J1100) IV (21:15)
[2017-03-01] MEDS: IPRATROPIUM 0.5MG/ALBUTEROL 2.5MG INH SOL UD 3ML (DUONEB)(J7620) NEB (22:07)
[2017-03-01 22:33] LABS: BASO % 0.4 % (0.0-1.0); EOS # 0.1 10^3/uL (0.0-0.50); EOS % 2.2 % (0.0-3.0); HEMATOCRIT 37.4 % (42.0-52.0); IMMATURE GRANULOCYTE % 0.4 % (0-0); LYMPH # 0.7 10^3/uL (1.5-4.5); LYMPH % 13.4 % (24.0-44.0); MEAN CORPUSCULAR HEMOGLOBIN 32.3 pg (27.0-33.0); MEAN CORPUSCULAR HGB CONC 34.8 g/dl (32.0-36.5); MEAN CORPUSCULAR VOLUME 92.8 fl (80.0-96.0); MONO # 0.2 10^3/uL (0.0-0.8); NEUTROPHILS % 80.6 % (36.0-66.0); RED BLOOD COUNT 4.03 10^6/uL (4.30-6.10); RED CELL DISTRIBUTION WIDTH 14.3 % (11.5-14.5)
[2017-03-01 22:40] LABS: PLATELET COUNT, AUTOMATED 77 10^3/uL (150-450)
[2017-03-01 22:41] LABS: IMMATURE PLATELET FRACTION % 14.2 % (0.0-10.9)
[2017-03-01 22:51] LABS: INR 0.92; PROTHROMBIN TIME 12.4 SECONDS (12.4-14.5)
[2017-03-01 22:52] LABS: PARTIAL THROMBOPLASTIN TIME 26.8 SECONDS (26.8-37.9)
[2017-03-01 22:58] LABS: ANION GAP 13 MEQ/L (8-16); BLOOD UREA NITROGEN 6 MG/DL (7-18); CALCIUM LEVEL 8.5 MG/DL (8.5-10.1); CARBON DIOXIDE LEVEL 27 MEQ/L (21-32); CHLORIDE LEVEL 99 MEQ/L (98-107); CPK CREATINE PHOSPHOKINASE 57 U/L (39-308); CREATININE FOR GFR 0.54 MG/DL (0.70-1.30); GLOMERULAR FILTRATION RATE > 60.0 (>56); GLUCOSE, FASTING 115 MG/DL (70-105); MB/CK RELATIVE INDEX 1.75 (< OR =4); POTASSIUM SERUM 3.6 MEQ/L (3.5-5.1); SODIUM LEVEL 139 MEQ/L (136-145); TROPONIN I < 0.02 NG/ML (< 0.10)
== END 2017-03-01 23:39 | disposition home or self-care (01) ==
LOC: M ED 20:55
DX: J44.1 Chronic obstructive pulmonary disease with (acute) exacerbation (principal); K21.9 Gastro-esophageal reflux disease without esophagitis; I10 Essential (primary) hypertension; F17.210 Nicotine dependence, cigarettes, uncomplicated; Z79.51 Long term (current) use of inhaled steroids; Z79.899 Other long term (current) drug therapy; Z91.040 Latex allergy status
CPT/HCPCS: J1100

== ENCOUNTER 2017-03-02 17:07 | Emergency (ER) | payer OTHER ==
[2017-03-02] MEDS: OXAZEPAM 15 MG CAP PO (18:43)
== END 2017-03-02 18:44 | disposition home or self-care (01) ==
LOC: M ED 17:07
DX: F10.229 Alcohol dependence with intoxication, unspecified (principal); I10 Essential (primary) hypertension; J44.9 Chronic obstructive pulmonary disease, unspecified; Z79.52 Long term (current) use of systemic steroids; Z79.82 Long term (current) use of aspirin; Z79.899 Other long term (current) drug therapy; Z91.040 Latex allergy status; Z86.14 Personal history of Methicillin resistant Staphylococcus aureus infection; Z87.891 Personal history of nicotine dependence
CPT/HCPCS: 99283

== ENCOUNTER 2017-04-12 06:22 | Emergency (ER) | payer OTHER ==
[2017-04-12] MEDS: dexameTHASONE 20 MG/5 ML VIAL (J1100) IV (06:52)
[2017-04-12 07:01] LABS: BASO # 0.1 10^3/uL (0.0-0.2); BASO % 0.6 % (0.0-1.0); EOS # 0.1 10^3/uL (0.0-0.50); EOS % 0.6 % (0.0-3.0); HEMATOCRIT 39.1 % (42.0-52.0); HEMOGLOBIN 13.4 g/dl (14.0-18.0); IMMATURE GRANULOCYTE % 0.3 % (0-3.0); LYMPH # 1.3 10^3/uL (1.5-4.5); LYMPH % 14.8 % (24.0-44.0); MEAN CORPUSCULAR HEMOGLOBIN 31.8 pg (27.0-33.0); MEAN CORPUSCULAR HGB CONC 34.3 g/dl (32.0-36.5); MEAN CORPUSCULAR VOLUME 92.9 fl (80.0-96.0); MONO # 0.8 10^3/uL (0.0-0.8); MONO % 8.5 % (0.0-5.0); NEUTROPHILS # 6.8 10^3/uL (1.8-7.7); NEUTROPHILS % 75.2 % (36.0-66.0); PLATELET COUNT, AUTOMATED 249 10^3/uL (150-450); RED BLOOD COUNT 4.21 10^6/uL (4.30-6.10); RED CELL DISTRIBUTION WIDTH 13.2 % (11.5-14.5)
[2017-04-12] MEDS: IPRATROPIUM 0.5MG/ALBUTEROL 2.5MG INH SOL UD 3ML (DUONEB)(J7620) NEB ×3 (07:10→07:26)
[2017-04-12 07:23] LABS: ANION GAP 10 MEQ/L (8-16); BLOOD UREA NITROGEN 11 MG/DL (7-18); CALCIUM LEVEL 8.7 MG/DL (8.5-10.1); CARBON DIOXIDE LEVEL 27 MEQ/L (21-32); CHLORIDE LEVEL 102 MEQ/L (98-107); CPK CREATINE PHOSPHOKINASE 52 U/L (39-308); CREATININE FOR GFR 0.69 MG/DL (0.70-1.30); GLOMERULAR FILTRATION RATE > 60.0 (>56); GLUCOSE, FASTING 130 MG/DL (70-100); POTASSIUM SERUM 3.9 MEQ/L (3.5-5.1); SODIUM LEVEL 139 MEQ/L (136-145); TROPONIN I < 0.02 NG/ML (< 0.10)
[2017-04-12 07:24] LABS: MB/CK RELATIVE INDEX 1.92 (< OR =4)
[2017-04-12 07:25] LABS: ABG HCO3 27.4 MEQ/L (22.0-26.0); ABG O2 SATURATION 98.5 % (95.0-99.0); ABG PARTIAL PRESSURE CO2 41.1 mmHg (35.0-45.0); ABG PARTIAL PRESSURE O2 113.3 mmHg (75.0-100.0); ABG STANDARD HCO3 27.2 MEQ/L (22.0-26.0); ABG TOTAL CO2 28.7 MEQ/L (22.0-29.0); ABG pH (ARTERIAL) 7.442 UNITS (7.350-7.450)
[2017-04-12 09:15] LABS: INFLUENZA A AMPLIFICATION NEGATIVE (NEGATIVE); INFLUENZA B AMPLIFICATION POSITIVE (NEGATIVE)
[2017-04-12] MEDS: OSELTAMIVIR PHOSPHATE 75 MG CAP (TAMIFLU) PO (10:27)
[2017-04-12 10:47] LABS: CPK CREATINE PHOSPHOKINASE 56 U/L (39-308); MB/CK RELATIVE INDEX 1.78 (< OR =4); TROPONIN I < 0.02 NG/ML (< 0.10)
== END 2017-04-12 11:14 | disposition home or self-care (01) ==
LOC: M ED 06:22
DX: J44.1 Chronic obstructive pulmonary disease with (acute) exacerbation (principal); J11.1 Influenza due to unidentified influenza virus with other respiratory manifestations; I10 Essential (primary) hypertension; K21.9 Gastro-esophageal reflux disease without esophagitis; F33.9 Major depressive disorder, recurrent, unspecified; F17.210 Nicotine dependence, cigarettes, uncomplicated; Z79.82 Long term (current) use of aspirin; Z79.51 Long term (current) use of inhaled steroids; Z79.899 Other long term (current) drug therapy; Z91.040 Latex allergy status; Z99.81 Dependence on supplemental oxygen
CPT/HCPCS: J1100

== ENCOUNTER 2017-04-14 17:03 | Inpatient (IN) | payer OTHER ==
[2017-04-14] MEDS: IPRATROPIUM 0.5MG/ALBUTEROL 2.5MG INH SOL UD 3ML (DUONEB)(J7620) NEB ×4 (17:43→21:37)
[2017-04-14] MEDS: ACETAMINOPHEN TAB 650MG DOSE (2X325MG) PO (17:54)
[2017-04-14] MEDS: methylPREDNISolone INJ 125 MG/2 ML VIAL (J2930) IV (17:54)
[2017-04-14 17:55] LABS: BASO % 0.1 % (0.0-1.0); HEMATOCRIT 40.3 % (42.0-52.0); HEMOGLOBIN 13.6 g/dl (14.0-18.0); IMMATURE GRANULOCYTE % 0.3 % (0-3.0); LYMPH # 1.1 10^3/uL (1.5-4.5); LYMPH % 10.6 % (24.0-44.0); MEAN CORPUSCULAR HEMOGLOBIN 31.3 pg (27.0-33.0); MEAN CORPUSCULAR HGB CONC 33.7 g/dl (32.0-36.5); MEAN CORPUSCULAR VOLUME 92.6 fl (80.0-96.0); MONO # 0.6 10^3/uL (0.0-0.8); MONO % 5.5 % (0.0-5.0); NEUTROPHILS # 8.6 10^3/uL (1.8-7.7); NEUTROPHILS % 83.5 % (36.0-66.0); PLATELET COUNT, AUTOMATED 208 10^3/uL (150-450); RED BLOOD COUNT 4.35 10^6/uL (4.30-6.10); RED CELL DISTRIBUTION WIDTH 13.2 % (11.5-14.5); WHITE BLOOD COUNT 10.3 10^3/uL (4.0-10.0)
[2017-04-14 18:02] LABS: ABG BASE EXCESS 3.7 (-2.0-2.0); ABG HCO3 27.7 MEQ/L (22.0-26.0); ABG O2 SATURATION 92.7 % (95.0-99.0); ABG PARTIAL PRESSURE CO2 39.7 mmHg (35.0-45.0); ABG PARTIAL PRESSURE O2 62.2 mmHg (75.0-100.0); ABG STANDARD HCO3 27.6 MEQ/L (22.0-26.0); ABG TOTAL CO2 28.9 MEQ/L (22.0-29.0); ABG pH (ARTERIAL) 7.461 UNITS (7.350-7.450)
[2017-04-14 18:22] LABS: ANION GAP 9 MEQ/L (8-16); BLOOD UREA NITROGEN 19 MG/DL (7-18); CALCIUM LEVEL 8.7 MG/DL (8.5-10.1); CARBON DIOXIDE LEVEL 29 MEQ/L (21-32); CHLORIDE LEVEL 98 MEQ/L (98-107); GLOMERULAR FILTRATION RATE > 60.0 (>56); GLUCOSE, FASTING 109 MG/DL (70-100); POTASSIUM SERUM 3.7 MEQ/L (3.5-5.1); SODIUM LEVEL 136 MEQ/L (136-145)
[2017-04-14 18:26] LABS: LACTIC ACID SEPSIS PROTOCOL 1.4 MMOL/L (0.4-2.0)
[2017-04-14] MEDS ORDERED: IPRATROPIUM 0.5MG/ALBUTEROL 2.5MG INH SOL UD 3ML (DUONEB)(J7620) NEB (19:45)
[2017-04-14] MEDS ORDERED: traZODone 50 MG TAB PO (19:45)
[2017-04-14] MEDS ORDERED: guaiFENesin ER 600 MG TAB PO (19:45)
[2017-04-14] MEDS ORDERED: hydrOXYzine 25 MG TAB PO (19:45)
[2017-04-14] MEDS ORDERED: POLYVINYL ALCOHOL OPHTH SOLN 15 ML(LIQUITEARS) OU (19:45)
[2017-04-14 21:20] LABS: C REACTIVE PROTEIN QUANTITATIV 6.63 MG/DL (0.00-0.30); CPK CREATINE PHOSPHOKINASE 48 U/L (39-308); TROPONIN I < 0.02 NG/ML (< 0.10)
[2017-04-14 21:21] LABS: MB/CK RELATIVE INDEX 2.08 (< OR =4)
[2017-04-14] MEDS: AZITHROMYCIN INJ 500 MG, VIAL MATE ADAPTER 1 EACH in D5W 250 ML IV (21:38)
[2017-04-14] MEDS: OSELTAMIVIR PHOSPHATE 75 MG CAP (TAMIFLU) PO (21:41)
[2017-04-14] MEDS: SENOKOT S TAB PO (21:41)
[2017-04-14] MEDS: CARVedilol 12.5 MG TAB PO (21:41)
[2017-04-14] MEDS: ADVAIR HFA 230/21MCG INHALER INH (22:19)
[2017-04-14] MEDS: NALTREXONE 50 MG TAB PO (22:23)
[2017-04-14] MEDS: busPIRone 5 MG TAB PO (22:23)
[2017-04-14] MEDS: VANCOMYCIN HCL 1,000 MG, VIAL MATE ADAPTER 1 EACH in D5W 250 ML IV (23:05)
[2017-04-15] MEDS: CEFTRIAXONE SOD 2 GM in APPROPRIATE DILUENT 1 EA IV (00:39)
[2017-04-15] MEDS: VANCOMYCIN HCL 500 MG in D5W MINI-BAG PLUS 100 ML IV (01:15)
[2017-04-15] MEDS: IPRATROPIUM 0.5MG/ALBUTEROL 2.5MG INH SOL UD 3ML (DUONEB)(J7620) NEB ×4 (02:00→20:00)
[2017-04-15] MEDS: methylPREDNISolone INJ 125 MG/2 ML VIAL (J2930) IV ×3 (02:19→18:13)
[2017-04-15 02:24] LABS: CPK CREATINE PHOSPHOKINASE 42 U/L (39-308); TROPONIN I < 0.02 NG/ML (< 0.10)
[2017-04-15 02:25] LABS: MB/CK RELATIVE INDEX 2.38 (< OR =4)
[2017-04-15 05:57] LABS: HEMATOCRIT 39.6 % (42.0-52.0); HEMOGLOBIN 13.2 g/dl (14.0-18.0); MEAN CORPUSCULAR HEMOGLOBIN 31.2 pg (27.0-33.0); MEAN CORPUSCULAR HGB CONC 33.3 g/dl (32.0-36.5); MEAN CORPUSCULAR VOLUME 93.6 fl (80.0-96.0); PLATELET COUNT, AUTOMATED 193 10^3/uL (150-450); RED BLOOD COUNT 4.23 10^6/uL (4.30-6.10); RED CELL DISTRIBUTION WIDTH 13.2 % (11.5-14.5); WHITE BLOOD COUNT 12.8 10^3/uL (4.0-10.0)
[2017-04-15 06:23] LABS: ANION GAP 6 MEQ/L (8-16); BLOOD UREA NITROGEN 21 MG/DL (7-18); CALCIUM LEVEL 8.6 MG/DL (8.5-10.1); CARBON DIOXIDE LEVEL 32 MEQ/L (21-32); CHLORIDE LEVEL 100 MEQ/L (98-107); CREATININE FOR GFR 0.72 MG/DL (0.70-1.30); GLOMERULAR FILTRATION RATE > 60.0 (>56); GLUCOSE, FASTING 163 MG/DL (70-100); MAGNESIUM LEVEL 2.3 MG/DL (1.8-2.4); POTASSIUM SERUM 4.4 MEQ/L (3.5-5.1); SODIUM LEVEL 138 MEQ/L (136-145)
[2017-04-15] MEDS: HEPARIN SOD (PORCINE) 5000 UNITS/ML VIAL SC ×2 (08:35→21:31)
[2017-04-15] MEDS: SENOKOT S TAB PO ×2 (08:36→21:30)
[2017-04-15] MEDS: MONTELUKAST 10 MG TAB PO (08:36)
[2017-04-15] MEDS: MAGNESIUM OXIDE 400 MG TAB (MAG-OX) PO (08:36)
[2017-04-15] MEDS: NICOTINE 21MG/24HR 1 EA TRANSDERMAL TD (08:36)
[2017-04-15] MEDS: CARVedilol 12.5 MG TAB PO ×2 (08:37→21:35)
[2017-04-15] MEDS: CYANOCOBALAMIN 500 MCG TAB PO (08:38)
[2017-04-15] MEDS: LOSARTAN 25 MG TAB PO (08:38)
[2017-04-15] MEDS: PANTOPRAZOLE 40MG TAB (PROTONIX) PO (08:38)
[2017-04-15] MEDS: NALTREXONE 50 MG TAB PO ×2 (08:39→21:30)
[2017-04-15] MEDS: ASPIRIN 81 MG ENTERIC TAB PO (08:39)
[2017-04-15] MEDS: CitaloPRAM (CeleXA) 20 MG TAB PO (08:39)
[2017-04-15] MEDS: OSELTAMIVIR PHOSPHATE 75 MG CAP (TAMIFLU) PO ×2 (08:39→21:31)
[2017-04-15] MEDS: FOLIC ACID 1 MG TAB PO (08:39)
[2017-04-15] MEDS: THIAMINE 100 MG TAB PO (08:40)
[2017-04-15] MEDS: busPIRone 5 MG TAB PO ×2 (08:49→21:30)
[2017-04-15] MEDS: ADVAIR HFA 230/21MCG INHALER INH ×2 (09:55→20:03)
[2017-04-15] MEDS: VANCOMYCIN HCL 1,000 MG, VIAL MATE ADAPTER 1 EACH in D5W 250 ML IV ×2 (10:41→22:57)
[2017-04-15] MEDS: AZITHROMYCIN INJ 500 MG, VIAL MATE ADAPTER 1 EACH in D5W 250 ML IV (21:32)
[2017-04-15 23:01] LABS: VANCOMYCIN LEVEL TROUGH 6.5 UG/ML (10.0-20.0)
[2017-04-15] MEDS: ALBUTEROL SULFATE 2.5 MG/0.5 ML INH NEB SOLN NEB (23:38)
[2017-04-16] MEDS: CEFTRIAXONE SOD 2 GM in APPROPRIATE DILUENT 1 EA IV (00:28)
[2017-04-16] MEDS: IPRATROPIUM 0.5MG/ALBUTEROL 2.5MG INH SOL UD 3ML (DUONEB)(J7620) NEB ×4 (01:41→21:19)
[2017-04-16] MEDS: methylPREDNISolone INJ 125 MG/2 ML VIAL (J2930) IV ×3 (01:46→17:35)
[2017-04-16] MEDS: VANCOMYCIN HCL 1,000 MG, VIAL MATE ADAPTER 1 EACH in D5W 250 ML IV ×4 (06:22→22:49)
[2017-04-16 06:43] LABS: HEMOGLOBIN 12.6 g/dl (14.0-18.0); MEAN CORPUSCULAR HEMOGLOBIN 30.7 pg (27.0-33.0); MEAN CORPUSCULAR HGB CONC 33.2 g/dl (32.0-36.5); MEAN CORPUSCULAR VOLUME 92.5 fl (80.0-96.0); PLATELET COUNT, AUTOMATED 213 10^3/uL (150-450); RED BLOOD COUNT 4.11 10^6/uL (4.30-6.10); RED CELL DISTRIBUTION WIDTH 13.1 % (11.5-14.5); WHITE BLOOD COUNT 11.7 10^3/uL (4.0-10.0)
[2017-04-16 06:58] LABS: ANION GAP 8 MEQ/L (8-16); BLOOD UREA NITROGEN 16 MG/DL (7-18); CALCIUM LEVEL 8.4 MG/DL (8.5-10.1); CARBON DIOXIDE LEVEL 29 MEQ/L (21-32); CHLORIDE LEVEL 102 MEQ/L (98-107); CREATININE FOR GFR 0.54 MG/DL (0.70-1.30); GLOMERULAR FILTRATION RATE > 60.0 (>56); GLUCOSE, FASTING 151 MG/DL (70-100); MAGNESIUM LEVEL 2.2 MG/DL (1.8-2.4); POTASSIUM SERUM 3.8 MEQ/L (3.5-5.1); SODIUM LEVEL 139 MEQ/L (136-145)
[2017-04-16] MEDS: NICOTINE 21MG/24HR 1 EA TRANSDERMAL TD (08:51)
[2017-04-16] MEDS: OSELTAMIVIR PHOSPHATE 75 MG CAP (TAMIFLU) PO ×2 (08:52→21:30)
[2017-04-16] MEDS: CitaloPRAM (CeleXA) 20 MG TAB PO (08:52)
[2017-04-16] MEDS: HEPARIN SOD (PORCINE) 5000 UNITS/ML VIAL SC ×2 (08:52→21:21)
[2017-04-16] MEDS: ASPIRIN 81 MG ENTERIC TAB PO (08:52)
[2017-04-16] MEDS: PANTOPRAZOLE 40MG TAB (PROTONIX) PO ×2 (08:52→09:17)
[2017-04-16] MEDS: CYANOCOBALAMIN 500 MCG TAB PO (08:52)
[2017-04-16] MEDS: busPIRone 5 MG TAB PO ×2 (08:53→21:21)
[2017-04-16] MEDS: CARVedilol 12.5 MG TAB PO ×2 (08:53→21:22)
[2017-04-16] MEDS: NALTREXONE 50 MG TAB PO ×2 (08:54→21:22)
[2017-04-16] MEDS: MAGNESIUM OXIDE 400 MG TAB (MAG-OX) PO (08:54)
[2017-04-16] MEDS: MONTELUKAST 10 MG TAB PO (08:54)
[2017-04-16] MEDS: THIAMINE 100 MG TAB PO (08:54)
[2017-04-16] MEDS: LOSARTAN 25 MG TAB PO (08:55)
[2017-04-16] MEDS: SENOKOT S TAB PO ×2 (08:55→21:23)
[2017-04-16] MEDS: FOLIC ACID 1 MG TAB PO (09:00)
[2017-04-16] MEDS: ADVAIR HFA 230/21MCG INHALER INH ×2 (09:54→21:00)
[2017-04-16 13:15] LABS: VANCOMYCIN LEVEL TROUGH 11.5 UG/ML (10.0-20.0)
[2017-04-16] MEDS: FLUTICASONE PROP 0.05% NASAL SPRAY 16 GM (FLONASE) (15:55)
[2017-04-16] MEDS: AZITHROMYCIN INJ 500 MG, VIAL MATE ADAPTER 1 EACH in D5W 250 ML IV (21:21)
[2017-04-17] MEDS: CEFTRIAXONE SOD 2 GM in APPROPRIATE DILUENT 1 EA IV ×2 (00:01→23:52)
[2017-04-17] MEDS: methylPREDNISolone INJ 125 MG/2 ML VIAL (J2930) IV ×3 (01:42→18:32)
[2017-04-17] MEDS: IPRATROPIUM 0.5MG/ALBUTEROL 2.5MG INH SOL UD 3ML (DUONEB)(J7620) NEB ×4 (02:20→20:00)
[2017-04-17] MEDS: VANCOMYCIN HCL 1,000 MG, VIAL MATE ADAPTER 1 EACH in D5W 250 ML IV (05:37)
[2017-04-17 05:46] LABS: HEMATOCRIT 36.8 % (42.0-52.0); HEMOGLOBIN 12.5 g/dl (14.0-18.0); MEAN CORPUSCULAR VOLUME 91.3 fl (80.0-96.0); PLATELET COUNT, AUTOMATED 241 10^3/uL (150-450); RED BLOOD COUNT 4.03 10^6/uL (4.30-6.10); RED CELL DISTRIBUTION WIDTH 12.8 % (11.5-14.5); WHITE BLOOD COUNT 11.2 10^3/uL (4.0-10.0)
[2017-04-17 06:23] LABS: ANION GAP 8 MEQ/L (8-16); BLOOD UREA NITROGEN 13 MG/DL (7-18); CALCIUM LEVEL 8.7 MG/DL (8.5-10.1); CARBON DIOXIDE LEVEL 31 MEQ/L (21-32); CHLORIDE LEVEL 99 MEQ/L (98-107); CREATININE FOR GFR 0.52 MG/DL (0.70-1.30); GLOMERULAR FILTRATION RATE > 60.0 (>56); GLUCOSE, FASTING 149 MG/DL (70-100); MAGNESIUM LEVEL 2.2 MG/DL (1.8-2.4); POTASSIUM SERUM 3.9 MEQ/L (3.5-5.1); SODIUM LEVEL 138 MEQ/L (136-145)
[2017-04-17] MEDS: ADVAIR HFA 230/21MCG INHALER INH ×2 (09:00→21:11)
[2017-04-17] MEDS: NICOTINE 21MG/24HR 1 EA TRANSDERMAL TD (09:10)
[2017-04-17] MEDS: HEPARIN SOD (PORCINE) 5000 UNITS/ML VIAL SC ×2 (09:11→20:18)
[2017-04-17] MEDS: MONTELUKAST 10 MG TAB PO (09:11)
[2017-04-17] MEDS: SENOKOT S TAB PO ×2 (09:11→20:18)
[2017-04-17] MEDS: MAGNESIUM OXIDE 400 MG TAB (MAG-OX) PO (09:11)
[2017-04-17] MEDS: FOLIC ACID 1 MG TAB PO (09:12)
[2017-04-17] MEDS: CARVedilol 12.5 MG TAB PO ×2 (09:12→20:17)
[2017-04-17] MEDS: LOSARTAN 25 MG TAB PO (09:12)
[2017-04-17] MEDS: busPIRone 5 MG TAB PO ×2 (09:12→20:18)
[2017-04-17] MEDS: CitaloPRAM (CeleXA) 20 MG TAB PO (09:12)
[2017-04-17] MEDS: PANTOPRAZOLE 40MG TAB (PROTONIX) PO (09:13)
[2017-04-17] MEDS: CYANOCOBALAMIN 500 MCG TAB PO (09:13)
[2017-04-17] MEDS: ASPIRIN 81 MG ENTERIC TAB PO (09:13)
[2017-04-17] MEDS: OSELTAMIVIR PHOSPHATE 75 MG CAP (TAMIFLU) PO ×2 (09:13→20:18)
[2017-04-17] MEDS: NALTREXONE 50 MG TAB PO ×2 (09:13→20:18)
[2017-04-17] MEDS: FLUTICASONE PROP 0.05% NASAL SPRAY 16 GM (FLONASE) (09:13)
[2017-04-17] MEDS: THIAMINE 100 MG TAB PO (09:14)
[2017-04-18] MEDS: methylPREDNISolone INJ 125 MG/2 ML VIAL (J2930) IV (01:40)
[2017-04-18] MEDS: IPRATROPIUM 0.5MG/ALBUTEROL 2.5MG INH SOL UD 3ML (DUONEB)(J7620) NEB ×4 (02:16→19:33)
[2017-04-18 06:36] LABS: HEMATOCRIT 37.7 % (42.0-52.0); HEMOGLOBIN 12.9 g/dl (14.0-18.0); MEAN CORPUSCULAR HEMOGLOBIN 30.9 pg (27.0-33.0); MEAN CORPUSCULAR HGB CONC 34.2 g/dl (32.0-36.5); MEAN CORPUSCULAR VOLUME 90.4 fl (80.0-96.0); PLATELET COUNT, AUTOMATED 269 10^3/uL (150-450); RED BLOOD COUNT 4.17 10^6/uL (4.30-6.10); RED CELL DISTRIBUTION WIDTH 12.7 % (11.5-14.5); WHITE BLOOD COUNT 8.3 10^3/uL (4.0-10.0)
[2017-04-18 06:46] LABS: ANION GAP 7 MEQ/L (8-16); BLOOD UREA NITROGEN 14 MG/DL (7-18); CALCIUM LEVEL 8.8 MG/DL (8.5-10.1); CARBON DIOXIDE LEVEL 32 MEQ/L (21-32); CHLORIDE LEVEL 96 MEQ/L (98-107); CREATININE FOR GFR 0.52 MG/DL (0.70-1.30); GLOMERULAR FILTRATION RATE > 60.0 (>56); GLUCOSE, FASTING 141 MG/DL (70-100); MAGNESIUM LEVEL 2.1 MG/DL (1.8-2.4); SODIUM LEVEL 135 MEQ/L (136-145)
[2017-04-18] MEDS: ADVAIR HFA 230/21MCG INHALER INH ×2 (08:17→19:33)
[2017-04-18] MEDS: CYANOCOBALAMIN 500 MCG TAB PO (08:25)
[2017-04-18] MEDS: CARVedilol 12.5 MG TAB PO ×2 (08:26→20:51)
[2017-04-18] MEDS: FOLIC ACID 1 MG TAB PO (08:26)
[2017-04-18] MEDS: PANTOPRAZOLE 40MG TAB (PROTONIX) PO (08:26)
[2017-04-18] MEDS: SENOKOT S TAB PO ×2 (08:26→20:50)
[2017-04-18] MEDS: NALTREXONE 50 MG TAB PO ×2 (08:26→20:50)
[2017-04-18] MEDS: OSELTAMIVIR PHOSPHATE 75 MG CAP (TAMIFLU) PO ×2 (08:26→20:50)
[2017-04-18] MEDS: MONTELUKAST 10 MG TAB PO (08:26)
[2017-04-18] MEDS: THIAMINE 100 MG TAB PO (08:26)
[2017-04-18] MEDS: CitaloPRAM (CeleXA) 20 MG TAB PO (08:27)
[2017-04-18] MEDS: MAGNESIUM OXIDE 400 MG TAB (MAG-OX) PO (08:27)
[2017-04-18] MEDS: LOSARTAN 25 MG TAB PO (08:27)
[2017-04-18] MEDS: ASPIRIN 81 MG ENTERIC TAB PO (08:27)
[2017-04-18] MEDS: busPIRone 5 MG TAB PO ×2 (08:27→20:50)
[2017-04-18] MEDS: NICOTINE 21MG/24HR 1 EA TRANSDERMAL TD (08:28)
[2017-04-18] MEDS: FLUTICASONE PROP 0.05% NASAL SPRAY 16 GM (FLONASE) (08:28)
[2017-04-18] MEDS: HEPARIN SOD (PORCINE) 5000 UNITS/ML VIAL SC ×2 (08:28→20:51)
[2017-04-18] MEDS: methylPREDNISolone INJ 40 MG/1 ML VIAL (J2920) IV ×2 (10:02→17:29)
[2017-04-19] MEDS: CEFTRIAXONE SOD 2 GM in APPROPRIATE DILUENT 1 EA IV ×2 (00:01→23:59)
[2017-04-19] MEDS: IPRATROPIUM 0.5MG/ALBUTEROL 2.5MG INH SOL UD 3ML (DUONEB)(J7620) NEB ×4 (00:42→20:00)
[2017-04-19] MEDS: methylPREDNISolone INJ 40 MG/1 ML VIAL (J2920) IV ×3 (02:20→18:32)
[2017-04-19 06:10] LABS: HEMATOCRIT 37.5 % (42.0-52.0); HEMOGLOBIN 13.1 g/dl (14.0-18.0); MEAN CORPUSCULAR HEMOGLOBIN 31.8 pg (27.0-33.0); MEAN CORPUSCULAR HGB CONC 34.9 g/dl (32.0-36.5); PLATELET COUNT, AUTOMATED 291 10^3/uL (150-450); RED BLOOD COUNT 4.12 10^6/uL (4.30-6.10); RED CELL DISTRIBUTION WIDTH 12.9 % (11.5-14.5); WHITE BLOOD COUNT 7.7 10^3/uL (4.0-10.0)
[2017-04-19 06:27] LABS: ANION GAP 5 MEQ/L (8-16); BLOOD UREA NITROGEN 16 MG/DL (7-18); CALCIUM LEVEL 8.4 MG/DL (8.5-10.1); CARBON DIOXIDE LEVEL 31 MEQ/L (21-32); CHLORIDE LEVEL 98 MEQ/L (98-107); CREATININE FOR GFR 0.57 MG/DL (0.70-1.30); GLOMERULAR FILTRATION RATE > 60.0 (>56); GLUCOSE, FASTING 148 MG/DL (70-100); MAGNESIUM LEVEL 2.4 MG/DL (1.8-2.4); POTASSIUM SERUM 4.3 MEQ/L (3.5-5.1); SODIUM LEVEL 134 MEQ/L (136-145)
[2017-04-19] MEDS: SENOKOT S TAB PO ×2 (08:30→20:59)
[2017-04-19] MEDS: CitaloPRAM (CeleXA) 20 MG TAB PO (08:31)
[2017-04-19] MEDS: MAGNESIUM OXIDE 400 MG TAB (MAG-OX) PO (08:31)
[2017-04-19] MEDS: OSELTAMIVIR PHOSPHATE 75 MG CAP (TAMIFLU) PO ×2 (08:31→20:59)
[2017-04-19] MEDS: NALTREXONE 50 MG TAB PO ×2 (08:31→20:59)
[2017-04-19] MEDS: busPIRone 5 MG TAB PO ×2 (08:31→20:59)
[2017-04-19] MEDS: ASPIRIN 81 MG ENTERIC TAB PO (08:31)
[2017-04-19] MEDS: FOLIC ACID 1 MG TAB PO (08:31)
[2017-04-19] MEDS: PANTOPRAZOLE 40MG TAB (PROTONIX) PO (08:31)
[2017-04-19] MEDS: THIAMINE 100 MG TAB PO (08:32)
[2017-04-19] MEDS: MONTELUKAST 10 MG TAB PO (08:32)
[2017-04-19] MEDS: CARVedilol 12.5 MG TAB PO ×2 (08:32→20:59)
[2017-04-19] MEDS: CYANOCOBALAMIN 500 MCG TAB PO (08:32)
[2017-04-19] MEDS: LOSARTAN 25 MG TAB PO (08:32)
[2017-04-19] MEDS: NICOTINE 21MG/24HR 1 EA TRANSDERMAL TD (08:33)
[2017-04-19] MEDS: HEPARIN SOD (PORCINE) 5000 UNITS/ML VIAL SC ×2 (08:33→21:00)
[2017-04-19] MEDS: FLUTICASONE PROP 0.05% NASAL SPRAY 16 GM (FLONASE) (08:33)
[2017-04-19] MEDS: ADVAIR HFA 230/21MCG INHALER INH ×2 (12:13→21:20)
[2017-04-19] MEDS: IBUPROFEN 200 MG TAB PO (21:49)
[2017-04-20] MEDS: methylPREDNISolone INJ 40 MG/1 ML VIAL (J2920) IV ×2 (01:47→09:20)
[2017-04-20] MEDS: IPRATROPIUM 0.5MG/ALBUTEROL 2.5MG INH SOL UD 3ML (DUONEB)(J7620) NEB ×2 (02:21→09:04)
[2017-04-20 06:16] LABS: HEMATOCRIT 37.4 % (42.0-52.0); HEMOGLOBIN 12.8 g/dl (14.0-18.0); MEAN CORPUSCULAR HEMOGLOBIN 30.5 pg (27.0-33.0); MEAN CORPUSCULAR HGB CONC 34.2 g/dl (32.0-36.5); MEAN CORPUSCULAR VOLUME 89.3 fl (80.0-96.0); PLATELET COUNT, AUTOMATED 313 10^3/uL (150-450); RED BLOOD COUNT 4.19 10^6/uL (4.30-6.10); RED CELL DISTRIBUTION WIDTH 12.6 % (11.5-14.5); WHITE BLOOD COUNT 8.7 10^3/uL (4.0-10.0)
[2017-04-20 06:30] LABS: ANION GAP 7 MEQ/L (8-16); BLOOD UREA NITROGEN 16 MG/DL (7-18); CALCIUM LEVEL 8.1 MG/DL (8.5-10.1); CARBON DIOXIDE LEVEL 30 MEQ/L (21-32); CHLORIDE LEVEL 98 MEQ/L (98-107); CREATININE FOR GFR 0.57 MG/DL (0.70-1.30); GLOMERULAR FILTRATION RATE > 60.0 (>56); GLUCOSE, FASTING 143 MG/DL (70-100); MAGNESIUM LEVEL 2.3 MG/DL (1.8-2.4); POTASSIUM SERUM 4.3 MEQ/L (3.5-5.1); SODIUM LEVEL 135 MEQ/L (136-145)
[2017-04-20] MEDS: ADVAIR HFA 230/21MCG INHALER INH (09:05)
[2017-04-20] MEDS: MONTELUKAST 10 MG TAB PO (09:20)
[2017-04-20] MEDS: PANTOPRAZOLE 40MG TAB (PROTONIX) PO (09:20)
[2017-04-20] MEDS: MAGNESIUM OXIDE 400 MG TAB (MAG-OX) PO (09:20)
[2017-04-20] MEDS: NICOTINE 21MG/24HR 1 EA TRANSDERMAL TD (09:20)
[2017-04-20] MEDS: FOLIC ACID 1 MG TAB PO (09:20)
[2017-04-20] MEDS: NALTREXONE 50 MG TAB PO (09:20)
[2017-04-20] MEDS: busPIRone 5 MG TAB PO (09:20)
[2017-04-20] MEDS: THIAMINE 100 MG TAB PO (09:21)
[2017-04-20] MEDS: CYANOCOBALAMIN 500 MCG TAB PO (09:21)
[2017-04-20] MEDS: SENOKOT S TAB PO (09:21)
[2017-04-20] MEDS: ASPIRIN 81 MG ENTERIC TAB PO (09:21)
[2017-04-20] MEDS: LOSARTAN 25 MG TAB PO (09:21)
[2017-04-20] MEDS: CARVedilol 12.5 MG TAB PO (09:21)
[2017-04-20] MEDS: OSELTAMIVIR PHOSPHATE 75 MG CAP (TAMIFLU) PO (09:21)
[2017-04-20] MEDS: CitaloPRAM (CeleXA) 20 MG TAB PO (09:21)
[2017-04-20] MEDS: HEPARIN SOD (PORCINE) 5000 UNITS/ML VIAL SC (09:22)
[2017-04-20] MEDS: FLUTICASONE PROP 0.05% NASAL SPRAY 16 GM (FLONASE) (09:22)
== END 2017-04-20 13:20 | disposition home or self-care (01) | DRG 133 ==
LOC: M ED 17:03 → M ED INP 19:44 → M MSPAV 21:00
DX: J96.21 Acute and chronic respiratory failure with hypoxia (principal); J10.08 Influenza due to other identified influenza virus with other specified pneumonia; I11.0 Hypertensive heart disease with heart failure; J13 Pneumonia due to Streptococcus pneumoniae; I50.9 Heart failure, unspecified; J44.1 Chronic obstructive pulmonary disease with (acute) exacerbation; K21.9 Gastro-esophageal reflux disease without esophagitis; J30.9 Allergic rhinitis, unspecified; F32.9 Major depressive disorder, single episode, unspecified; F17.210 Nicotine dependence, cigarettes, uncomplicated; Z99.81 Dependence on supplemental oxygen; Z79.82 Long term (current) use of aspirin; Z79.899 Other long term (current) drug therapy

== ENCOUNTER 2017-05-30 08:59 | Day surgery (SDC) | payer OTHER ==
[~2017-05-30 08:59] MED LIST changes: -/ADVA50050 INH; +ACETAMINOPHEN 325 MG TAB PO; -ACTI300C PO; -ADV500INH; -ADV500INH INH; -ADVA115A INH; -ADVI200T PO; -ALBU17IN INH; -ALBU17IN2 INH; -ALBU83IN INH; -ASPI1TAB PO; -AUGM875T28 PO; -AVAP150T PO; -AVAP150T31 PO; -AZIT-12 PO; -AZIT600T PO; -BREO1INH3 INH; -BUSP10TA PO; -BUSP15TA47 PO; -BUSP5TA PO; -CARV12.5 PO; -CARV6.25 PO; -CEFT500T3 PO; -CELE20TA PO; -CITA20TA4 PO; -CITA40TA4 PO; -CLOR37TA PO; -CLOT10TR MT; -COZA1TAB PO; -COZA50TA PO; -CYAN25TA PO; -DUONSOL INH; -FLON1SPR; -FOLI1TAB4 PO; -FOLI1TAB86 PO; -FOLI800T PO; -HYDR-3363 PO; -HYDROXYZINE HCL PO; -INCR1INH IN; -INCR1INH INH; -IPRA2IN INH; -IPRASOL4 INH; -IRBE150T3 PO; -LEVA1TAB2 PO; -LEVOTAB10 PO; -LOSA25TA8 PO; -LOSA50TA20 PO; -MAG400TA PO; -MAGN400T5 PO; -MOME50SP; -MONTELUKAST PO; -MUCI600T37 PO; -NALT50TA4 PO; -NICO14PA EXT; -NICO14PA TOP; -NICO21PAT EXT; -NICO21PAT TD; -NORC1TAB4 PO; -NORCOTAB PO; -OLOP1OPD; -OMEP40CA2 PO; -OXAZ10CA3 PO; -OXAZ15CA4 PO; -PANT40TA2 PO; -PATA2.5S OU; +PHENYLEPHRINE HCL 10 % OPHTH. SOL 5ML OS; -PRED10TA PO; -PRED10TA2 PO; -PRED1TAB32 PO; -PRED20TA PO; -PRED50TA2 PO; +PROPARACAINE 0.5% OPHTH SOL 15ML OS; -Pantoprazole Sodium PO; -SING10TA32 PO; -SPIR12.9 INH; -SPIR1CAP INH; -THIA100TA PO; -TIOT18INH INH; -TRAZ-136 PO; -TRAZ50TA11 PO; -TRIA1CR TOP; -Thiamine Hcl PO; -URSO300C2 PO; -VENTAER INH; -VIBR100C PO; -VITA100072 PO; -VITA100T88 PO; -VITA500T53 PO; -VITA50TA; -VITA50TA PO; -XANA0.25 PO; -[UNRECOGNIZED DRUG - REMARK] PO; -b 12 PO; -citalopram PO; -ventolin neb INH
[2017-05-30] MEDS: CARVedilol 6.25 MG TAB PO (10:07)
[2017-05-30] MEDS: CYCLOPENTOLATE 2% OPHTH SOLN 2ML BTL OS (10:07)
[2017-05-30] MEDS: LIDOCAINE 3.5 % 1ML OPHTH TOPICAL GEL OU (10:08)
[2017-05-30] MEDS: TROPICAMIDE 1% OPHTH SOLN 2ML OS (10:08)
[2017-05-30] MEDS: OFLOXACIN 0.3 % (OCUFLOX) OPTH SOL 5ML OS (10:08)
[2017-05-30] MEDS: PHENYLEPHRINE 2.5% OPHTH SOL 2ML OS (10:08)
[2017-05-30] MEDS ORDERED: MIDAZOLAM INJ 2 MG/2 ML VIAL (J2250) As Ordered (10:20)
[2017-05-30] MEDS ORDERED: fentaNYL 100 MCG/2 ML INJECTION (J3010) As Ordered (10:20)
[2017-05-30] MEDS: HEALON DUET (HEALON 10MG/ML 0.55ML & HEALON ENDOCOAT 30MG/ML 0.85ML) As Ordered ×2 (10:52→11:01)
[2017-05-30] MEDS: BALANCED SALT IRRIGATION SOLUTION 500ML BAG (FOR OR EYE MACHINE) As Ordered (11:01)
[2017-05-30] MEDS: LIDOCAINE 1% SDV 5 ML VIAL As Ordered (11:01)
[2017-05-30] MEDS: CEFUROXIME 1MG/0.1ML INTRACAMERAL INJ As Ordered (11:01)
[2017-05-30] MEDS: POVIDONE-IODINE 5% OPHTH PREP SOL 30ML As Ordered (11:01)
[2017-05-30] MEDS: ACETYLCHOLINE OPHTH SOLN 1% 2ML (MIOCHOL-E) As Ordered (11:08)
[2017-05-30] MEDS ORDERED: TRIMETHOBENZAMIDE 300 MG CAP PO (11:30)
[2017-05-30] MEDS: AcetaZOLAMIDE 500 MG ER CAP PO (11:31)
[2017-05-30] MEDS: KETOROLAC 0.5% OPHTH SOLN OS (11:31)
== END 2017-05-30 12:00 | disposition home or self-care (01) ==
LOC: M SDC 08:59
DX: H25.042 Posterior subcapsular polar age-related cataract, left eye (principal); H21.562 Pupillary abnormality, left eye; I10 Essential (primary) hypertension; I25.10 Atherosclerotic heart disease of native coronary artery without angina pectoris; K21.9 Gastro-esophageal reflux disease without esophagitis; Z91.040 Latex allergy status; F41.9 Anxiety disorder, unspecified; Z79.51 Long term (current) use of inhaled steroids; F32.9 Major depressive disorder, single episode, unspecified; J44.9 Chronic obstructive pulmonary disease, unspecified; F17.210 Nicotine dependence, cigarettes, uncomplicated; Z99.81 Dependence on supplemental oxygen
CPT/HCPCS: 66982

== ENCOUNTER 2017-06-07 05:20 | Inpatient (IN) | payer OTHER ==
[2017-06-07 05:37] LABS: BASO # 0.1 10^3/uL (0.0-0.2); BASO % 1.1 % (0.0-1.0); EOS # 0.1 10^3/uL (0.0-0.50); EOS % 1.1 % (0.0-3.0); HEMATOCRIT 36.6 % (42.0-52.0); HEMOGLOBIN 12.5 g/dl (13.5-17.5); IMMATURE GRANULOCYTE % 0.5 % (0-3.0); LYMPH # 1.3 10^3/uL (1.5-4.5); LYMPH % 20.8 % (24.0-44.0); MEAN CORPUSCULAR HEMOGLOBIN 31.6 pg (27.0-33.0); MEAN CORPUSCULAR HGB CONC 34.2 g/dl (32.0-36.5); MEAN CORPUSCULAR VOLUME 92.4 fl (80.0-96.0); MONO # 0.9 10^3/uL (0.0-0.8); MONO % 13.5 % (0.0-5.0); PLATELET COUNT, AUTOMATED 270 10^3/uL (150-450); RED BLOOD COUNT 3.96 10^6/uL (4.30-6.10); RED CELL DISTRIBUTION WIDTH 15.8 % (11.5-14.5); WHITE BLOOD COUNT 6.3 10^3/uL (4.0-10.0)
[2017-06-07 05:59] LABS: ALBUMIN 3.5 GM/DL (3.2-5.2); ALBUMIN/GLOBULIN RATIO 1.06 (1.00-1.93); ALKALINE PHOSPHATASE 55 U/L (45-117); ALT/SGPT 29 U/L (12-78); ANION GAP 8 MEQ/L (8-16); AST/SGOT 27 U/L (7-37); BILIRUBIN,DIRECT < 0.1 MG/DL (0.0-0.2); BILIRUBIN,TOTAL 0.2 MG/DL (0.2-1.0); BLOOD UREA NITROGEN 13 MG/DL (7-18); CALCIUM LEVEL 8.2 MG/DL (8.5-10.1); CARBON DIOXIDE LEVEL 27 MEQ/L (21-32); CHLORIDE LEVEL 107 MEQ/L (98-107); CREATININE FOR GFR 0.53 MG/DL (0.70-1.30); GLOMERULAR FILTRATION RATE > 60.0 (>56); GLUCOSE, FASTING 88 MG/DL (70-100); NT-PRO BNP 30 PG/ML (<125); POTASSIUM SERUM 3.9 MEQ/L (3.5-5.1); SODIUM LEVEL 142 MEQ/L (136-145); TOTAL PROTEIN 6.8 GM/DL (6.4-8.2)
[2017-06-07 06:00] LABS: LACTIC ACID SEPSIS PROTOCOL 2.3 MMOL/L (0.4-2.0)
[2017-06-07] MEDS: IPRATROPIUM 0.5MG/ALBUTEROL 2.5MG INH SOL UD 3ML (DUONEB)(J7620) NEB (06:13)
[2017-06-07 07:59] LABS: ABG BASE EXCESS 2.7 (-2.0-2.0); ABG O2 SATURATION 94.3 % (95.0-99.0); ABG PARTIAL PRESSURE CO2 40.6 mmHg (35.0-45.0); ABG PARTIAL PRESSURE O2 72.2 mmHg (75.0-100.0); ABG STANDARD HCO3 26.8 MEQ/L (22.0-26.0); ABG TOTAL CO2 28.3 MEQ/L (22.0-29.0); ABG pH (ARTERIAL) 7.441 UNITS (7.350-7.450)
[2017-06-07 08:14] LABS: INFLUENZA A AMPLIFICATION NEGATIVE (NEGATIVE); INFLUENZA B AMPLIFICATION NEGATIVE (NEGATIVE)
[2017-06-07] MEDS: NALTREXONE 50 MG TAB PO ×2 (09:00→21:13)
[2017-06-07 10:32] LABS: CK-MB VALUE MASS < 1.0 NG/ML (<3.6); CPK CREATINE PHOSPHOKINASE 52 U/L (39-308); MB/CK RELATIVE INDEX 1.92 (< OR =4); TROPONIN I < 0.02 NG/ML (< 0.10)
[2017-06-07] MEDS: methylPREDNISolone INJ 125 MG/2 ML VIAL (J2930) IV ×2 (11:27→18:01)
[2017-06-07] MEDS: CitaloPRAM (CeleXA) 20 MG TAB PO (11:28)
[2017-06-07] MEDS: DOXYCYCLINE HYCLATE 100 MG TAB PO ×2 (11:28→21:14)
[2017-06-07] MEDS: busPIRone 5 MG TAB PO ×2 (11:29→21:14)
[2017-06-07] MEDS: PANTOPRAZOLE 40MG TAB (PROTONIX) PO (11:29)
[2017-06-07] MEDS: ASPIRIN 81 MG CHEW TABLET PO (11:29)
[2017-06-07] MEDS: THIAMINE 100 MG TAB PO (11:30)
[2017-06-07] MEDS: CYANOCOBALAMIN 500 MCG TAB PO (11:30)
[2017-06-07] MEDS: LOSARTAN 25 MG TAB PO (11:31)
[2017-06-07] MEDS: FOLIC ACID 1 MG TAB PO (11:31)
[2017-06-07] MEDS: MAGNESIUM OXIDE 400 MG TAB (MAG-OX) PO ×2 (11:40→21:13)
[2017-06-07] MEDS: ALBUTEROL SULFATE 2.5 MG/0.5 ML INH NEB SOLN NEB ×4 (11:53→19:34)
[2017-06-07] MEDS: IPRATROPIUM 0.02% SOLN 0.5MG/2.5 ML NEB NEB ×2 (14:51→19:34)
[2017-06-07] MEDS: ACETAMINOPHEN TAB 650MG DOSE (2X325MG) PO (21:14)
[2017-06-07] MEDS: CARVedilol 12.5 MG TAB PO (21:14)
[2017-06-08] MEDS: IPRATROPIUM 0.02% SOLN 0.5MG/2.5 ML NEB NEB ×4 (02:10→20:48)
[2017-06-08] MEDS: ALBUTEROL SULFATE 2.5 MG/0.5 ML INH NEB SOLN NEB ×7 (02:10→20:48)
[2017-06-08] MEDS: methylPREDNISolone INJ 125 MG/2 ML VIAL (J2930) IV ×3 (02:43→18:23)
[2017-06-08 08:30] LABS: HEMATOCRIT 38.8 % (42.0-52.0); HEMOGLOBIN 13.2 g/dl (13.5-17.5); MEAN CORPUSCULAR HEMOGLOBIN 31.1 pg (27.0-33.0); MEAN CORPUSCULAR VOLUME 91.5 fl (80.0-96.0); PLATELET COUNT, AUTOMATED 290 10^3/uL (150-450); RED BLOOD COUNT 4.24 10^6/uL (4.30-6.10); RED CELL DISTRIBUTION WIDTH 15.4 % (11.5-14.5); WHITE BLOOD COUNT 4.4 10^3/uL (4.0-10.0)
[2017-06-08] MEDS: CYANOCOBALAMIN 500 MCG TAB PO (08:57)
[2017-06-08] MEDS: ASPIRIN 81 MG CHEW TABLET PO (08:57)
[2017-06-08] MEDS: NALTREXONE 50 MG TAB PO ×2 (08:58→21:27)
[2017-06-08] MEDS: FOLIC ACID 1 MG TAB PO (08:58)
[2017-06-08] MEDS: DOXYCYCLINE HYCLATE 100 MG TAB PO ×2 (08:58→21:27)
[2017-06-08] MEDS: PANTOPRAZOLE 40MG TAB (PROTONIX) PO (08:58)
[2017-06-08] MEDS: CARVedilol 12.5 MG TAB PO ×2 (08:58→21:28)
[2017-06-08] MEDS: busPIRone 5 MG TAB PO ×2 (08:58→21:27)
[2017-06-08] MEDS: THIAMINE 100 MG TAB PO (08:58)
[2017-06-08] MEDS: CitaloPRAM (CeleXA) 20 MG TAB PO (08:58)
[2017-06-08] MEDS: MAGNESIUM OXIDE 400 MG TAB (MAG-OX) PO ×2 (08:58→21:27)
[2017-06-08] MEDS: LOSARTAN 25 MG TAB PO (08:59)
[2017-06-08 09:03] LABS: ALBUMIN 3.3 GM/DL (3.2-5.2); ALBUMIN/GLOBULIN RATIO 0.94 (1.00-1.93); ALKALINE PHOSPHATASE 53 U/L (45-117); ALT/SGPT 25 U/L (12-78); ANION GAP 8 MEQ/L (8-16); AST/SGOT 22 U/L (7-37); BILIRUBIN,TOTAL 0.3 MG/DL (0.2-1.0); BLOOD UREA NITROGEN 13 MG/DL (7-18); CALCIUM LEVEL 9.1 MG/DL (8.5-10.1); CARBON DIOXIDE LEVEL 28 MEQ/L (21-32); CHLORIDE LEVEL 103 MEQ/L (98-107); CREATININE FOR GFR 0.54 MG/DL (0.70-1.30); GLOMERULAR FILTRATION RATE > 60.0 (>56); GLUCOSE, FASTING 161 MG/DL (70-100); POTASSIUM SERUM 4.3 MEQ/L (3.5-5.1); SODIUM LEVEL 139 MEQ/L (136-145); TOTAL PROTEIN 6.8 GM/DL (6.4-8.2)
[2017-06-08] MEDS: ENOXAPARIN 40 MG/0.4 ML SYRINGE (J1650) SC (09:42)
[2017-06-08] MEDS: FLUTICASONE PROP 0.05% NASAL SPRAY 16 GM (FLONASE) (10:34)
[2017-06-09] MEDS: ALBUTEROL SULFATE 2.5 MG/0.5 ML INH NEB SOLN NEB ×5 (02:17→20:20)
[2017-06-09] MEDS: IPRATROPIUM 0.02% SOLN 0.5MG/2.5 ML NEB NEB ×4 (02:17→20:20)
[2017-06-09] MEDS: methylPREDNISolone INJ 125 MG/2 ML VIAL (J2930) IV ×3 (03:50→18:14)
[2017-06-09 06:30] LABS: HEMATOCRIT 37.4 % (42.0-52.0); HEMOGLOBIN 12.6 g/dl (13.5-17.5); MEAN CORPUSCULAR HEMOGLOBIN 30.7 pg (27.0-33.0); MEAN CORPUSCULAR HGB CONC 33.7 g/dl (32.0-36.5); MEAN CORPUSCULAR VOLUME 91.2 fl (80.0-96.0); PLATELET COUNT, AUTOMATED 287 10^3/uL (150-450); RED CELL DISTRIBUTION WIDTH 15.2 % (11.5-14.5); WHITE BLOOD COUNT 6.7 10^3/uL (4.0-10.0)
[2017-06-09 06:53] LABS: ALBUMIN/GLOBULIN RATIO 0.79 (1.00-1.93); ALKALINE PHOSPHATASE 45 U/L (45-117); ALT/SGPT 26 U/L (12-78); ANION GAP 5 MEQ/L (8-16); AST/SGOT 22 U/L (7-37); BILIRUBIN,TOTAL 0.2 MG/DL (0.2-1.0); BLOOD UREA NITROGEN 13 MG/DL (7-18); CARBON DIOXIDE LEVEL 31 MEQ/L (21-32); CHLORIDE LEVEL 102 MEQ/L (98-107); CREATININE FOR GFR 0.56 MG/DL (0.70-1.30); GLOMERULAR FILTRATION RATE > 60.0 (>56); GLUCOSE, FASTING 142 MG/DL (70-100); POTASSIUM SERUM 4.1 MEQ/L (3.5-5.1); SODIUM LEVEL 138 MEQ/L (136-145); TOTAL PROTEIN 6.8 GM/DL (6.4-8.2)
[2017-06-09] MEDS: FLUTICASONE PROP 0.05% NASAL SPRAY 16 GM (FLONASE) (08:59)
[2017-06-09] MEDS: ENOXAPARIN 40 MG/0.4 ML SYRINGE (J1650) SC (09:00)
[2017-06-09] MEDS: PANTOPRAZOLE 40MG TAB (PROTONIX) PO (09:00)
[2017-06-09] MEDS: NALTREXONE 50 MG TAB PO ×2 (09:00→23:17)
[2017-06-09] MEDS: FOLIC ACID 1 MG TAB PO (09:00)
[2017-06-09] MEDS: THIAMINE 100 MG TAB PO (09:00)
[2017-06-09] MEDS: ASPIRIN 81 MG CHEW TABLET PO (09:00)
[2017-06-09] MEDS: CARVedilol 12.5 MG TAB PO ×2 (09:00→23:22)
[2017-06-09] MEDS: busPIRone 5 MG TAB PO ×2 (09:00→23:15)
[2017-06-09] MEDS: CitaloPRAM (CeleXA) 20 MG TAB PO (09:00)
[2017-06-09] MEDS: CYANOCOBALAMIN 500 MCG TAB PO (09:01)
[2017-06-09] MEDS: DOXYCYCLINE HYCLATE 100 MG TAB PO ×2 (09:01→23:17)
[2017-06-09] MEDS: LOSARTAN 25 MG TAB PO (09:01)
[2017-06-09] MEDS: MAGNESIUM OXIDE 400 MG TAB (MAG-OX) PO ×2 (09:02→23:16)
[2017-06-09] MEDS: guaiFENesin ER 600 MG TAB PO (23:16)
[2017-06-10] MEDS: ALBUTEROL SULFATE 2.5 MG/0.5 ML INH NEB SOLN NEB ×4 (02:23→20:12)
[2017-06-10] MEDS: IPRATROPIUM 0.02% SOLN 0.5MG/2.5 ML NEB NEB ×4 (02:23→20:12)
[2017-06-10] MEDS: methylPREDNISolone INJ 125 MG/2 ML VIAL (J2930) IV ×3 (03:12→18:54)
[2017-06-10] MEDS: ASPIRIN 81 MG CHEW TABLET PO (10:30)
[2017-06-10] MEDS: PANTOPRAZOLE 40MG TAB (PROTONIX) PO (10:30)
[2017-06-10] MEDS: NALTREXONE 50 MG TAB PO ×2 (10:30→20:14)
[2017-06-10] MEDS: CitaloPRAM (CeleXA) 20 MG TAB PO (10:30)
[2017-06-10] MEDS: FOLIC ACID 1 MG TAB PO (10:30)
[2017-06-10] MEDS: ENOXAPARIN 40 MG/0.4 ML SYRINGE (J1650) SC (10:30)
[2017-06-10] MEDS: guaiFENesin ER 600 MG TAB PO ×2 (10:30→20:15)
[2017-06-10] MEDS: THIAMINE 100 MG TAB PO (10:31)
[2017-06-10] MEDS: busPIRone 5 MG TAB PO ×2 (10:31→20:14)
[2017-06-10] MEDS: CARVedilol 12.5 MG TAB PO ×2 (10:31→20:19)
[2017-06-10] MEDS: MAGNESIUM OXIDE 400 MG TAB (MAG-OX) PO ×2 (10:31→20:15)
[2017-06-10] MEDS: LOSARTAN 25 MG TAB PO (10:32)
[2017-06-10] MEDS: DOXYCYCLINE HYCLATE 100 MG TAB PO ×2 (10:32→20:16)
[2017-06-10] MEDS: FLUTICASONE PROP 0.05% NASAL SPRAY 16 GM (FLONASE) (10:32)
[2017-06-10] MEDS: CYANOCOBALAMIN 500 MCG TAB PO (10:32)
[2017-06-10] MEDS: OLOPATADINE 0.1% OPHTH SOL 5ML(PATANOL) OU (20:14)
[2017-06-11] MEDS: ALBUTEROL SULFATE 2.5 MG/0.5 ML INH NEB SOLN NEB ×4 (01:53→19:58)
[2017-06-11] MEDS: IPRATROPIUM 0.02% SOLN 0.5MG/2.5 ML NEB NEB ×5 (01:53→19:58)
[2017-06-11] MEDS: methylPREDNISolone INJ 125 MG/2 ML VIAL (J2930) IV ×3 (02:11→17:55)
[2017-06-11] MEDS: ASPIRIN 81 MG CHEW TABLET PO (10:15)
[2017-06-11] MEDS: CitaloPRAM (CeleXA) 20 MG TAB PO (10:17)
[2017-06-11] MEDS: CARVedilol 12.5 MG TAB PO ×2 (10:17→21:27)
[2017-06-11] MEDS: LOSARTAN 25 MG TAB PO (10:18)
[2017-06-11] MEDS: FOLIC ACID 1 MG TAB PO (10:18)
[2017-06-11] MEDS: guaiFENesin ER 600 MG TAB PO ×2 (10:19→21:25)
[2017-06-11] MEDS: PANTOPRAZOLE 40MG TAB (PROTONIX) PO (10:19)
[2017-06-11] MEDS: MAGNESIUM OXIDE 400 MG TAB (MAG-OX) PO ×2 (10:19→21:25)
[2017-06-11] MEDS: NALTREXONE 50 MG TAB PO ×2 (10:20→21:25)
[2017-06-11] MEDS: DOXYCYCLINE HYCLATE 100 MG TAB PO ×2 (10:20→21:25)
[2017-06-11] MEDS: THIAMINE 100 MG TAB PO (10:20)
[2017-06-11] MEDS: CYANOCOBALAMIN 500 MCG TAB PO (10:21)
[2017-06-11] MEDS: FLUTICASONE PROP 0.05% NASAL SPRAY 16 GM (FLONASE) (10:24)
[2017-06-11] MEDS: ENOXAPARIN 40 MG/0.4 ML SYRINGE (J1650) SC (10:24)
[2017-06-11] MEDS: OLOPATADINE 0.1% OPHTH SOL 5ML(PATANOL) OU ×2 (10:26→17:55)
[2017-06-11] MEDS: busPIRone 5 MG TAB PO ×2 (10:29→21:25)
[2017-06-12] MEDS: methylPREDNISolone INJ 125 MG/2 ML VIAL (J2930) IV ×3 (02:10→21:17)
[2017-06-12] MEDS: IPRATROPIUM 0.02% SOLN 0.5MG/2.5 ML NEB NEB ×3 (02:40→20:19)
[2017-06-12] MEDS: ALBUTEROL SULFATE 2.5 MG/0.5 ML INH NEB SOLN NEB ×4 (02:40→20:19)
[2017-06-12] MEDS: busPIRone 5 MG TAB PO ×2 (08:32→21:18)
[2017-06-12] MEDS: ASPIRIN 81 MG CHEW TABLET PO (08:32)
[2017-06-12] MEDS: CARVedilol 12.5 MG TAB PO ×2 (08:33→21:18)
[2017-06-12] MEDS: CitaloPRAM (CeleXA) 20 MG TAB PO (08:33)
[2017-06-12] MEDS: LOSARTAN 25 MG TAB PO (08:34)
[2017-06-12] MEDS: guaiFENesin ER 600 MG TAB PO ×2 (08:34→21:17)
[2017-06-12] MEDS: FOLIC ACID 1 MG TAB PO (08:34)
[2017-06-12] MEDS: PANTOPRAZOLE 40MG TAB (PROTONIX) PO (08:34)
[2017-06-12] MEDS: MAGNESIUM OXIDE 400 MG TAB (MAG-OX) PO ×2 (08:34→21:18)
[2017-06-12] MEDS: DOXYCYCLINE HYCLATE 100 MG TAB PO ×2 (08:35→21:17)
[2017-06-12] MEDS: CYANOCOBALAMIN 500 MCG TAB PO (08:35)
[2017-06-12] MEDS: THIAMINE 100 MG TAB PO (08:35)
[2017-06-12] MEDS: NALTREXONE 50 MG TAB PO ×2 (08:35→21:18)
[2017-06-12] MEDS: ENOXAPARIN 40 MG/0.4 ML SYRINGE (J1650) SC (08:40)
[2017-06-12] MEDS: OLOPATADINE 0.1% OPHTH SOL 5ML(PATANOL) OU ×2 (08:40→17:42)
[2017-06-12] MEDS: FLUTICASONE PROP 0.05% NASAL SPRAY 16 GM (FLONASE) (08:40)
[2017-06-12 11:25] LABS: BASO % 0.1 % (0.0-1.0); HEMATOCRIT 38.6 % (42.0-52.0); IMMATURE GRANULOCYTE % 0.6 % (0-3.0); LYMPH # 0.8 10^3/uL (1.5-4.5); LYMPH % 10.2 % (24.0-44.0); MEAN CORPUSCULAR HEMOGLOBIN 30.8 pg (27.0-33.0); MEAN CORPUSCULAR HGB CONC 33.7 g/dl (32.0-36.5); MEAN CORPUSCULAR VOLUME 91.5 fl (80.0-96.0); MONO # 0.2 10^3/uL (0.0-0.8); MONO % 3.1 % (0.0-5.0); NEUTROPHILS # 6.7 10^3/uL (1.8-7.7); PLATELET COUNT, AUTOMATED 237 10^3/uL (150-450); RED BLOOD COUNT 4.22 10^6/uL (4.30-6.10); RED CELL DISTRIBUTION WIDTH 14.3 % (11.5-14.5); WHITE BLOOD COUNT 7.8 10^3/uL (4.0-10.0)
[2017-06-12 12:24] LABS: ALBUMIN 2.7 GM/DL (3.2-5.2); ALKALINE PHOSPHATASE 38 U/L (45-117); ALT/SGPT 40 U/L (12-78); ANION GAP 6 MEQ/L (8-16); AST/SGOT 20 U/L (7-37); BILIRUBIN,TOTAL 0.4 MG/DL (0.2-1.0); BLOOD UREA NITROGEN 21 MG/DL (7-18); CALCIUM LEVEL 8.6 MG/DL (8.5-10.1); CARBON DIOXIDE LEVEL 30 MEQ/L (21-32); CHLORIDE LEVEL 100 MEQ/L (98-107); CREATININE FOR GFR 0.66 MG/DL (0.70-1.30); GLOMERULAR FILTRATION RATE > 60.0 (>56); GLUCOSE, FASTING 214 MG/DL (70-100); SODIUM LEVEL 136 MEQ/L (136-145); TOTAL PROTEIN 5.7 GM/DL (6.4-8.2)
[2017-06-13] MEDS: IPRATROPIUM 0.02% SOLN 0.5MG/2.5 ML NEB NEB ×4 (02:03→20:00)
[2017-06-13] MEDS: ALBUTEROL SULFATE 2.5 MG/0.5 ML INH NEB SOLN NEB ×4 (02:03→20:00)
[2017-06-13] MEDS: CitaloPRAM (CeleXA) 20 MG TAB PO (09:24)
[2017-06-13] MEDS: THIAMINE 100 MG TAB PO (09:24)
[2017-06-13] MEDS: FOLIC ACID 1 MG TAB PO (09:24)
[2017-06-13] MEDS: CYANOCOBALAMIN 500 MCG TAB PO (09:24)
[2017-06-13] MEDS: CARVedilol 12.5 MG TAB PO ×2 (09:24→21:21)
[2017-06-13] MEDS: busPIRone 5 MG TAB PO ×2 (09:25→21:21)
[2017-06-13] MEDS: NALTREXONE 50 MG TAB PO ×2 (09:25→21:21)
[2017-06-13] MEDS: predniSONE 20 MG TAB PO ×2 (09:25→21:21)
[2017-06-13] MEDS: LOSARTAN 25 MG TAB PO (09:25)
[2017-06-13] MEDS: ASPIRIN 81 MG CHEW TABLET PO (09:25)
[2017-06-13] MEDS: guaiFENesin ER 600 MG TAB PO ×2 (09:25→21:21)
[2017-06-13] MEDS: PANTOPRAZOLE 40MG TAB (PROTONIX) PO (09:25)
[2017-06-13] MEDS: OLOPATADINE 0.1% OPHTH SOL 5ML(PATANOL) OU ×2 (09:26→17:25)
[2017-06-13] MEDS: ENOXAPARIN 40 MG/0.4 ML SYRINGE (J1650) SC (09:26)
[2017-06-13] MEDS: DOXYCYCLINE HYCLATE 100 MG TAB PO ×2 (09:26→21:21)
[2017-06-13] MEDS: FLUTICASONE PROP 0.05% NASAL SPRAY 16 GM (FLONASE) (09:26)
[2017-06-13] MEDS: MAGNESIUM OXIDE 400 MG TAB (MAG-OX) PO ×2 (09:26→21:22)
[2017-06-14] MEDS: ALBUTEROL SULFATE 2.5 MG/0.5 ML INH NEB SOLN NEB ×2 (01:51→08:05)
[2017-06-14] MEDS: IPRATROPIUM 0.02% SOLN 0.5MG/2.5 ML NEB NEB ×2 (01:51→08:05)
[2017-06-14] MEDS: CitaloPRAM (CeleXA) 20 MG TAB PO (09:29)
[2017-06-14] MEDS: busPIRone 5 MG TAB PO (09:29)
[2017-06-14] MEDS: LOSARTAN 25 MG TAB PO (09:29)
[2017-06-14] MEDS: predniSONE 20 MG TAB PO (09:29)
[2017-06-14] MEDS: CARVedilol 12.5 MG TAB PO (09:29)
[2017-06-14] MEDS: MAGNESIUM OXIDE 400 MG TAB (MAG-OX) PO (09:29)
[2017-06-14] MEDS: OLOPATADINE 0.1% OPHTH SOL 5ML(PATANOL) OU (09:30)
[2017-06-14] MEDS: CYANOCOBALAMIN 500 MCG TAB PO (09:30)
[2017-06-14] MEDS: THIAMINE 100 MG TAB PO (09:30)
[2017-06-14] MEDS: ASPIRIN 81 MG CHEW TABLET PO (09:30)
[2017-06-14] MEDS: PANTOPRAZOLE 40MG TAB (PROTONIX) PO (09:30)
[2017-06-14] MEDS: guaiFENesin ER 600 MG TAB PO (09:30)
[2017-06-14] MEDS: ENOXAPARIN 40 MG/0.4 ML SYRINGE (J1650) SC (09:30)
[2017-06-14] MEDS: NALTREXONE 50 MG TAB PO (09:30)
[2017-06-14] MEDS: FOLIC ACID 1 MG TAB PO (09:30)
[2017-06-14] MEDS: FLUTICASONE PROP 0.05% NASAL SPRAY 16 GM (FLONASE) (09:30)
== END 2017-06-14 12:10 | disposition home or self-care (01) | DRG 133 ==
LOC: M ED 05:20 → M ED INP 10:16 → M MS5PR 15:20
DX: J96.21 Acute and chronic respiratory failure with hypoxia (principal); I42.6 Alcoholic cardiomyopathy; Z99.81 Dependence on supplemental oxygen; J43.9 Emphysema, unspecified; I10 Essential (primary) hypertension; K21.9 Gastro-esophageal reflux disease without esophagitis; F17.210 Nicotine dependence, cigarettes, uncomplicated; J45.909 Unspecified asthma, uncomplicated; F32.9 Major depressive disorder, single episode, unspecified; Z91.040 Latex allergy status; Z79.899 Other long term (current) drug therapy; Z79.82 Long term (current) use of aspirin

== ENCOUNTER 2017-06-25 23:04 | Inpatient (IN) | payer OTHER ==
[2017-06-26 00:24] LABS: HEMOGLOBIN 13.5 g/dl (13.5-17.5); MEAN CORPUSCULAR HGB CONC 33.8 g/dl (32.0-36.5); PLATELET COUNT, AUTOMATED 186 10^3/uL (150-450); RED BLOOD COUNT 4.35 10^6/uL (4.30-6.10); RED CELL DISTRIBUTION WIDTH 15.9 % (11.5-14.5); WHITE BLOOD COUNT 7.1 10^3/uL (4.0-10.0)
[2017-06-26 00:28] LABS: AMPHETAMINES LEVEL URINE NEGATIVE (NEGATIVE); BARBITURATES URINE NEGATIVE (NEGATIVE); BENZODIAZEPINES URINE NEGATIVE (NEGATIVE); CANNABINOIDS URINE NEGATIVE (NEGATIVE); COCAINE METABOLITE URINE NEGATIVE (NEGATIVE); METHADONE URINE NEGATIVE (NEGATIVE); OPIATES URINE NEGATIVE (NEGATIVE); PHENCYCLIDINE URINE NEGATIVE (NEGATIVE)
[2017-06-26 00:38] LABS: ACETAMINOPHEN LEVEL < 2.0 UG/ML (10.0-30.0); ALBUMIN 3.6 GM/DL (3.2-5.2); ALBUMIN/GLOBULIN RATIO 1.03 (1.00-1.93); ALKALINE PHOSPHATASE 54 U/L (45-117); ALT/SGPT 34 U/L (12-78); ANION GAP 9 MEQ/L (8-16); AST/SGOT 26 U/L (7-37); BILIRUBIN,DIRECT 0.1 MG/DL (0.0-0.2); BILIRUBIN,TOTAL 0.3 MG/DL (0.2-1.0); BLOOD UREA NITROGEN 11 MG/DL (7-18); CALCIUM LEVEL 8.4 MG/DL (8.5-10.1); CARBON DIOXIDE LEVEL 26 MEQ/L (21-32); CHLORIDE LEVEL 108 MEQ/L (98-107); CREATININE FOR GFR 0.64 MG/DL (0.70-1.30); GLOMERULAR FILTRATION RATE > 60.0 (>56); GLUCOSE, FASTING 95 MG/DL (70-100); POTASSIUM SERUM 4.5 MEQ/L (3.5-5.1); SALICYLATE LEVEL 3.7 MG/DL (5.0-30.0); SODIUM LEVEL 143 MEQ/L (136-145); TOTAL PROTEIN 7.1 GM/DL (6.4-8.2)
[2017-06-26] MEDS: IPRATROPIUM 0.5MG/ALBUTEROL 2.5MG INH SOL UD 3ML (DUONEB)(J7620) NEB (12:15)
[2017-06-26] MEDS: **hydrALAZINE** 10 MG TAB PO (12:45)
[2017-06-26] MEDS: LORazepam 1 MG TAB PO (13:46)
[2017-06-26] MEDS ORDERED: MOM 30ML SUSPENSION UDC PO (14:00)
[2017-06-26] MEDS ORDERED: MAALOX 30 ML SUSP *UDC PO (14:00)
[2017-06-26] MEDS ORDERED: LORazepam 2 MG TAB PO (14:00)
[2017-06-26] MEDS: MULTIVITAMINS/MINERALS THERAP 1 TAB PO (17:49)
[2017-06-26] MEDS: FOLIC ACID 1 MG TAB PO (17:49)
[2017-06-26] MEDS: THIAMINE 100 MG TAB PO ×2 (17:49→20:53)
[2017-06-26] MEDS: ACETAMINOPHEN TAB 650MG DOSE (2X325MG) PO (17:53)
[2017-06-26] MEDS: traZODone 50 MG TAB PO (20:53)
[2017-06-26] MEDS ORDERED: hydrOXYzine 25 MG TAB PO (21:45)
[2017-06-26] MEDS ORDERED: IBUPROFEN 600 MG TAB PO (21:45)
[2017-06-26] MEDS ORDERED: guaiFENesin ER 600 MG TAB PO (21:45)
[2017-06-26] MEDS ORDERED: ALBUTEROL 90 MCG/ACT 8GM HFA INHALER INH (21:45)
[2017-06-26] MEDS ORDERED: IPRATROPIUM 0.5MG/ALBUTEROL 2.5MG INH SOL UD 3ML (DUONEB)(J7620) INH (21:45)
[2017-06-26] MEDS ORDERED: traZODone 50 MG TAB PO (21:45)
[2017-06-26] MEDS: busPIRone 5 MG TAB PO (23:06)
[2017-06-26] MEDS: CitaloPRAM (CeleXA) 20 MG TAB PO (23:06)
[2017-06-26] MEDS: CARVedilol 12.5 MG TAB PO (23:11)
[2017-06-27] MEDS ORDERED: ENTER DRUG NAME HERE (PATIENT'S OWN MED) INH (09:00)
[2017-06-27] MEDS ORDERED: THIAMINE 100 MG TAB PO (09:00)
[2017-06-27] MEDS ORDERED: FOLIC ACID 1 MG TAB PO (09:00)
[2017-06-27] MEDS ORDERED: ENTER DRUG NAME HERE (PATIENT'S OWN MED) PO (09:00)
[2017-06-27] MEDS: prednisoLONE ACET 1% OPHTH SUSP 5ML OS ×4 (09:08→20:28)
[2017-06-27] MEDS: NICOTINE 21MG/24HR 1 EA TRANSDERMAL TD (09:08)
[2017-06-27] MEDS: KETOROLAC 0.5% OPHTH SOLN OS ×4 (09:09→20:28)
[2017-06-27] MEDS: busPIRone 5 MG TAB PO ×2 (09:10→20:29)
[2017-06-27] MEDS: THIAMINE 100 MG TAB PO ×2 (09:10→20:29)
[2017-06-27] MEDS: ASPIRIN 81 MG ENTERIC TAB PO (09:10)
[2017-06-27] MEDS: NALTREXONE 50 MG TAB PO ×2 (09:10→20:28)
[2017-06-27] MEDS: ADVAIR HFA 230/21MCG INHALER INH ×2 (09:10→20:27)
[2017-06-27] MEDS: CYANOCOBALAMIN 500 MCG TAB PO (09:11)
[2017-06-27] MEDS: MONTELUKAST 10 MG TAB PO (09:11)
[2017-06-27] MEDS: MULTIVITAMINS/MINERALS THERAP 1 TAB PO (09:11)
[2017-06-27] MEDS: MAGNESIUM OXIDE 400 MG TAB (MAG-OX) PO (09:11)
[2017-06-27] MEDS: CARVedilol 12.5 MG TAB PO ×2 (09:11→20:28)
[2017-06-27] MEDS: PANTOPRAZOLE 40MG TAB (PROTONIX) PO (09:11)
[2017-06-27] MEDS: FOLIC ACID 1 MG TAB PO (09:11)
[2017-06-27] MEDS: LOSARTAN 25 MG TAB PO (09:12)
[2017-06-27] MEDS: FLUTICASONE PROP 0.05% NASAL SPRAY 16 GM (FLONASE) (15:22)
[2017-06-27] MEDS: CitaloPRAM (CeleXA) 20 MG TAB PO (20:28)
[2017-06-27] MEDS: traZODone 50 MG TAB PO (20:29)
[2017-06-27] MEDS: POLYVINYL ALCOHOL OPHTH SOLN 15 ML(LIQUITEARS) OU (20:44)
[2017-06-28] MEDS: prednisoLONE ACET 1% OPHTH SUSP 5ML OS ×2 (08:27→13:22)
[2017-06-28] MEDS: KETOROLAC 0.5% OPHTH SOLN OS ×2 (08:28→13:22)
[2017-06-28] MEDS: POLYVINYL ALCOHOL OPHTH SOLN 15 ML(LIQUITEARS) OU (08:28)
[2017-06-28] MEDS: FLUTICASONE PROP 0.05% NASAL SPRAY 16 GM (FLONASE) (08:28)
[2017-06-28] MEDS: ADVAIR HFA 230/21MCG INHALER INH (08:29)
[2017-06-28] MEDS: LOSARTAN 25 MG TAB PO (08:31)
[2017-06-28] MEDS: CYANOCOBALAMIN 500 MCG TAB PO (08:31)
[2017-06-28] MEDS: NICOTINE 21MG/24HR 1 EA TRANSDERMAL TD (08:32)
[2017-06-28] MEDS: ASPIRIN 81 MG ENTERIC TAB PO (08:32)
[2017-06-28] MEDS: PANTOPRAZOLE 40MG TAB (PROTONIX) PO (08:32)
[2017-06-28] MEDS: MAGNESIUM OXIDE 400 MG TAB (MAG-OX) PO (08:32)
[2017-06-28] MEDS: FOLIC ACID 1 MG TAB PO (08:32)
[2017-06-28] MEDS: NALTREXONE 50 MG TAB PO (08:32)
[2017-06-28] MEDS: THIAMINE 100 MG TAB PO (08:32)
[2017-06-28] MEDS: busPIRone 5 MG TAB PO (08:32)
[2017-06-28] MEDS: MONTELUKAST 10 MG TAB PO (08:33)
[2017-06-28] MEDS: CARVedilol 12.5 MG TAB PO (08:33)
[2017-06-28] MEDS: MULTIVITAMINS/MINERALS THERAP 1 TAB PO (08:36)
[2017-06-28] MEDS ORDERED: PILL CRUSHER/CUTTER 1 EACH XX (08:45)
== END 2017-06-28 14:58 | disposition home or self-care (01) | DRG 775 ==
LOC: M ED INP 06-26 13:58 → M ED 23:04 → M PSY 06-26 16:34
DX: F10.24 Alcohol dependence with alcohol-induced mood disorder (principal); F10.229 Alcohol dependence with intoxication, unspecified; I42.6 Alcoholic cardiomyopathy; J43.9 Emphysema, unspecified; J45.909 Unspecified asthma, uncomplicated; J96.10 Chronic respiratory failure, unspecified whether with hypoxia or hypercapnia; K21.9 Gastro-esophageal reflux disease without esophagitis; G47.00 Insomnia, unspecified; I10 Essential (primary) hypertension; G62.9 Polyneuropathy, unspecified; K76.0 Fatty (change of) liver, not elsewhere classified; F17.210 Nicotine dependence, cigarettes, uncomplicated; E83.42 Hypomagnesemia; Z98.49 Cataract extraction status, unspecified eye

== ENCOUNTER 2017-07-23 20:48 | Emergency (ER) | payer OTHER ==
[2017-07-23] MEDS: FUROSEMIDE 20 MG TAB PO (21:45)
[2017-07-23 22:22] LABS: BASO % 0.7 % (0.0-1.0); EOS # 0.2 10^3/uL (0.0-0.50); EOS % 3.8 % (0.0-3.0); HEMATOCRIT 29.7 % (42.0-52.0); HEMOGLOBIN 10.3 g/dl (13.5-17.5); IMMATURE GRANULOCYTE % 0.5 % (0-3.0); LYMPH # 1.8 10^3/uL (1.5-4.5); MEAN CORPUSCULAR HEMOGLOBIN 31.3 pg (27.0-33.0); MEAN CORPUSCULAR HGB CONC 34.7 g/dl (32.0-36.5); MEAN CORPUSCULAR VOLUME 90.3 fl (80.0-96.0); MONO # 0.7 10^3/uL (0.0-0.8); MONO % 16.5 % (0.0-5.0); NEUTROPHILS # 1.7 10^3/uL (1.8-7.7); NEUTROPHILS % 38.5 % (36.0-66.0); PLATELET COUNT, AUTOMATED 103 10^3/uL (150-450); RED BLOOD COUNT 3.29 10^6/uL (4.30-6.10); RED CELL DISTRIBUTION WIDTH 14.7 % (11.5-14.5); WHITE BLOOD COUNT 4.4 10^3/uL (4.0-10.0)
[2017-07-23 22:47] LABS: ANION GAP 8 MEQ/L (8-16); BLOOD UREA NITROGEN 10 MG/DL (7-18); CALCIUM LEVEL 8.5 MG/DL (8.5-10.1); CARBON DIOXIDE LEVEL 29 MEQ/L (21-32); CHLORIDE LEVEL 107 MEQ/L (98-107); CK-MB VALUE MASS < 1.0 NG/ML (<3.6); CPK CREATINE PHOSPHOKINASE 66 U/L (39-308); CREATININE FOR GFR 0.44 MG/DL (0.70-1.30); GLOMERULAR FILTRATION RATE > 60.0 (>56); GLUCOSE, FASTING 93 MG/DL (70-100); MB/CK RELATIVE INDEX 1.51 (< OR =4); NT-PRO BNP 37 PG/ML (<125); POTASSIUM SERUM 3.2 MEQ/L (3.5-5.1); SODIUM LEVEL 144 MEQ/L (136-145); TROPONIN I < 0.02 NG/ML (< 0.10)
[2017-07-23] MEDS: POTASSIUM CHLORIDE 10 MEQ SR TABLET PO (23:15)
== END 2017-07-23 23:32 | disposition home or self-care (01) ==
LOC: M ED 20:48
DX: R60.9 Edema, unspecified (principal); J44.9 Chronic obstructive pulmonary disease, unspecified; F17.200 Nicotine dependence, unspecified, uncomplicated; Z79.82 Long term (current) use of aspirin; Z79.51 Long term (current) use of inhaled steroids; Z79.899 Other long term (current) drug therapy; Z91.040 Latex allergy status
CPT/HCPCS: 71045

== ENCOUNTER 2017-09-07 03:45 | Emergency (ER) | payer OTHER ==
[2017-09-07] MEDS ORDERED: dexameTHASONE 20 MG/5 ML VIAL (J1100) IV (04:45)
[2017-09-07] MEDS: ALBUTEROL SULFATE 2.5 MG/0.5 ML INH NEB SOLN NEB (04:54)
[2017-09-07] MEDS: PHENobarbital 30 MG TAB PO (06:21)
[2017-09-07] MEDS: dexameTHASONE 20 MG/5 ML VIAL (J1100) IV (06:22)
== END 2017-09-07 06:29 | disposition home or self-care (01) ==
LOC: M ED 03:45
DX: J44.1 Chronic obstructive pulmonary disease with (acute) exacerbation (principal); I10 Essential (primary) hypertension; K21.9 Gastro-esophageal reflux disease without esophagitis; F17.200 Nicotine dependence, unspecified, uncomplicated; Z99.81 Dependence on supplemental oxygen
CPT/HCPCS: J1100

== ENCOUNTER 2017-09-10 14:15 | Inpatient (IN) | payer OTHER ==
[2017-09-10] MEDS: methylPREDNISolone INJ 125 MG/2 ML VIAL (J2930) IV ×2 (14:45→22:26)
[2017-09-10 14:47] LABS: ABG BASE EXCESS -0.6 (-2.0-2.0); ABG HCO3 22.6 MEQ/L (22.0-26.0); ABG O2 SATURATION 95.9 % (95.0-99.0); ABG PARTIAL PRESSURE CO2 33.3 mmHg (35.0-45.0); ABG TOTAL CO2 23.6 MEQ/L (22.0-29.0)
[2017-09-10] MEDS: IPRATROPIUM 0.5MG/ALBUTEROL 2.5MG INH SOL UD 3ML (DUONEB)(J7620) NEB ×3 (14:55→20:00)
[2017-09-10] MEDS: NS 1,000 ML IV ×3 (15:00→19:38)
[2017-09-10] MEDS ORDERED: ISOVUE-370 76% 100ML VIAL (Q9967) As Ordered (15:14)
[2017-09-10 15:49] LABS: HEMATOCRIT 37.2 % (42.0-52.0); IMMATURE GRANULOCYTE % 0.2 % (0-3.0); LYMPH # 2.2 10^3/uL (1.5-4.5); LYMPH % 52.8 % (24.0-44.0); MEAN CORPUSCULAR HEMOGLOBIN 31.3 pg (27.0-33.0); MEAN CORPUSCULAR HGB CONC 34.9 g/dl (32.0-36.5); MEAN CORPUSCULAR VOLUME 89.6 fl (80.0-96.0); MONO # 0.2 10^3/uL (0.0-0.8); MONO % 4.8 % (0.0-5.0); NEUTROPHILS # 1.7 10^3/uL (1.8-7.7); NEUTROPHILS % 42.2 % (36.0-66.0); RED BLOOD COUNT 4.15 10^6/uL (4.30-6.10); RED CELL DISTRIBUTION WIDTH 14.1 % (11.5-14.5); WHITE BLOOD COUNT 4.1 10^3/uL (4.0-10.0)
[2017-09-10 15:50] LABS: IMMATURE PLATELET FRACTION % 22.4 % (0.0-10.9); PLATELET COUNT, AUTOMATED 88 10^3/uL (150-450)
[2017-09-10] MEDS ORDERED: ONDANSETRON 4MG/2ML VIAL (J2405) As Ordered (16:32)
[2017-09-10] MEDS: ONDANSETRON 4MG/2ML VIAL (J2405) IV ×2 (16:34→23:43)
[2017-09-10 16:56] LABS: LACTIC ACID SEPSIS PROTOCOL 6.8 MMOL/L (0.4-2.0)
[2017-09-10 17:10] LABS: ALBUMIN 3.5 GM/DL (3.2-5.2); ALBUMIN/GLOBULIN RATIO 1.09 (1.00-1.93); ALKALINE PHOSPHATASE 58 U/L (45-117); ALT/SGPT 61 U/L (12-78); ANION GAP 18 MEQ/L (8-16); AST/SGOT 205 U/L (7-37); BILIRUBIN,TOTAL 1.6 MG/DL (0.2-1.0); BLOOD UREA NITROGEN 15 MG/DL (7-18); CALCIUM LEVEL 7.6 MG/DL (8.5-10.1); CARBON DIOXIDE LEVEL 20 MEQ/L (21-32); CHLORIDE LEVEL 98 MEQ/L (98-107); CPK CREATINE PHOSPHOKINASE 42 U/L (39-308); CREATININE FOR GFR 0.88 MG/DL (0.70-1.30); GLOMERULAR FILTRATION RATE > 60.0 (>56); GLUCOSE, FASTING 201 MG/DL (70-100); POTASSIUM SERUM 3.1 MEQ/L (3.5-5.1); SODIUM LEVEL 136 MEQ/L (136-145); TOTAL PROTEIN 6.7 GM/DL (6.4-8.2); TROPONIN I < 0.02 NG/ML (< 0.10)
[2017-09-10 17:13] LABS: CK-MB VALUE MASS < 1.0 NG/ML (<3.6); MB/CK RELATIVE INDEX 2.38 (< OR =4); NT-PRO BNP 70 PG/ML (<125)
[2017-09-10 17:31] LABS: APPEARANCE, URINE HAZY (CLEAR); BACTERIA, URINE AUTO NEGATIVE (NEGATIVE); BILIRUBIN, URINE AUTO NEGATIVE (NEGATIVE); BLOOD, URINE BLOOD NEGATIVE (NEGATIVE); COLOR, URINE AMBER (YELLOW); GLUCOSE, URINE (UA) AUTO 1+ mg/dL (NEGATIVE); KETONE, URINE AUTO TRACE mg/dL (NEGATIVE); LEUKOCYTE ESTERASE, URINE AUTO NEGATIVE (NEGATIVE); NITRITE, URINE AUTO NEGATIVE (NEGATIVE); PROTEIN, URINE AUTO 2+ mg/dL (NEGATIVE); RBC, URINE AUTO 4 /HPF (0-3); SQUAMOUS EPITHELIAL CELL UR AU 0 /HPF (0-6); WBC, URINE AUTO 3 /HPF (0-3)
[2017-09-10 17:33] LABS: SPECIFIC GRAVITY URINE AUTO >1.060 (1.002-1.035)
[2017-09-10] MEDS: POTASSIUM CHLORIDE 10 MEQ SR TABLET PO (17:42)
[2017-09-10] MEDS: CEFEPIME HCL 2 GM in D5W MINI-BAG PLUS 50 ML IV (17:42)
[2017-09-10] MEDS: DILUENT IV (17:43)
[2017-09-10] MEDS: NS IV (17:43)
[2017-09-10] MEDS ORDERED: ALBUTEROL SULFATE 2.5 MG/0.5 ML INH NEB SOLN NEB (19:30)
[2017-09-10] MEDS ORDERED: NALTREXONE 50 MG TAB PO (19:30)
[2017-09-10] MEDS ORDERED: IBUPROFEN 600 MG TAB PO (19:30)
[2017-09-10] MEDS ORDERED: D5W/0.45% SODIUM CHLORIDE 1,000 ML IV (19:30)
[2017-09-10] MEDS ORDERED: hydrOXYzine 25 MG TAB PO (19:30)
[2017-09-10] MEDS ORDERED: POLYVINYL ALCOHOL OPHTH SOLN 15 ML(LIQUITEARS) OU (19:30)
[2017-09-10] MEDS: SENOKOT S TAB PO (21:00)
[2017-09-10] MEDS: CARVedilol 12.5 MG TAB PO (21:01)
[2017-09-10] MEDS: busPIRone 5 MG TAB PO (21:01)
[2017-09-10] MEDS: KCL 20MEQ IN D5/0.45NS 1000ML 1,000 ML IV (21:02)
[2017-09-11] MEDS: IPRATROPIUM 0.5MG/ALBUTEROL 2.5MG INH SOL UD 3ML (DUONEB)(J7620) NEB ×7 (00:25→23:35)
[2017-09-11] MEDS: ONDANSETRON 4MG/2ML VIAL (J2405) IV ×2 (05:35→19:53)
[2017-09-11] MEDS: CEFEPIME HCL 2 GM in D5W MINI-BAG PLUS 50 ML IV ×2 (05:35→17:49)
[2017-09-11] MEDS: methylPREDNISolone INJ 125 MG/2 ML VIAL (J2930) IV ×2 (06:21→14:21)
[2017-09-11 07:56] LABS: HEMATOCRIT 32.4 % (42.0-52.0); HEMOGLOBIN 11.6 g/dl (13.5-17.5); IMMATURE GRANULOCYTE % 0.6 % (0-3.0); LYMPH # 0.5 10^3/uL (1.5-4.5); MEAN CORPUSCULAR HEMOGLOBIN 31.6 pg (27.0-33.0); MEAN CORPUSCULAR HGB CONC 35.8 g/dl (32.0-36.5); MEAN CORPUSCULAR VOLUME 88.3 fl (80.0-96.0); MONO # 0.4 10^3/uL (0.0-0.8); MONO % 6.5 % (0.0-5.0); NEUTROPHILS # 4.5 10^3/uL (1.8-7.7); NEUTROPHILS % 82.9 % (36.0-66.0); RED BLOOD COUNT 3.67 10^6/uL (4.30-6.10); RED CELL DISTRIBUTION WIDTH 13.5 % (11.5-14.5); WHITE BLOOD COUNT 5.4 10^3/uL (4.0-10.0)
[2017-09-11 08:00] LABS: PLATELET COUNT, AUTOMATED 79 10^3/uL (150-450)
[2017-09-11 08:24] LABS: ALBUMIN/GLOBULIN RATIO 0.88 (1.00-1.93); ALKALINE PHOSPHATASE 47 U/L (45-117); ALT/SGPT 43 U/L (12-78); AST/SGOT 83 U/L (7-37); BILIRUBIN,TOTAL 1.2 MG/DL (0.2-1.0); BLOOD UREA NITROGEN 10 MG/DL (7-18); CALCIUM LEVEL 7.9 MG/DL (8.5-10.1); CARBON DIOXIDE LEVEL 25 MEQ/L (21-32); CHLORIDE LEVEL 97 MEQ/L (98-107); CREATININE FOR GFR 0.62 MG/DL (0.70-1.30); GLOMERULAR FILTRATION RATE > 60.0 (>56); GLUCOSE, FASTING 189 MG/DL (70-100); TOTAL PROTEIN 6.4 GM/DL (6.4-8.2)
[2017-09-11 08:32] LABS: ANION GAP 9 MEQ/L (8-16); SODIUM LEVEL 131 MEQ/L (136-145)
[2017-09-11 08:33] LABS: POTASSIUM SERUM 4.2 MEQ/L (3.5-5.1)
[2017-09-11] MEDS: ENOXAPARIN 40 MG/0.4 ML SYRINGE (J1650) SC (09:07)
[2017-09-11] MEDS: THIAMINE 100 MG TAB PO (09:07)
[2017-09-11] MEDS: SENOKOT S TAB PO ×2 (09:07→19:53)
[2017-09-11] MEDS: FOLIC ACID 1 MG TAB PO (09:08)
[2017-09-11] MEDS: PANTOPRAZOLE 40MG TAB (PROTONIX) PO (09:08)
[2017-09-11] MEDS: CARVedilol 12.5 MG TAB PO ×2 (09:09→19:52)
[2017-09-11] MEDS: ASPIRIN 81 MG ENTERIC TAB PO (09:09)
[2017-09-11] MEDS: CYANOCOBALAMIN 500 MCG TAB PO (09:09)
[2017-09-11] MEDS: MAGNESIUM OXIDE 400 MG TAB (MAG-OX) PO (09:10)
[2017-09-11] MEDS: OXAZEPAM 10 MG CAP PO (09:11)
[2017-09-11] MEDS: busPIRone 5 MG TAB PO ×2 (09:14→19:51)
[2017-09-11] MEDS: MONTELUKAST 10 MG TAB PO (09:14)
[2017-09-11] MEDS: CitaloPRAM (CeleXA) 20 MG TAB PO (09:14)
[2017-09-11] MEDS: NS 1,000 ML IV ×2 (09:20→17:49)
[2017-09-11] MEDS ORDERED: LORazepam 2 MG/ML VIAL (J2060) IV (10:45)
[2017-09-11] MEDS: LORazepam 2 MG/ML VIAL (J2060) IV (10:50)
[2017-09-12] MEDS: methylPREDNISolone INJ 125 MG/2 ML VIAL (J2930) IV ×4 (00:01→23:22)
[2017-09-12] MEDS: ONDANSETRON 4MG/2ML VIAL (J2405) IV ×3 (02:55→16:37)
[2017-09-12] MEDS: IPRATROPIUM 0.5MG/ALBUTEROL 2.5MG INH SOL UD 3ML (DUONEB)(J7620) NEB ×6 (03:54→23:12)
[2017-09-12 05:03] LABS: ALBUMIN/GLOBULIN RATIO 0.94 (1.00-1.93); ALKALINE PHOSPHATASE 52 U/L (45-117); ALT/SGPT 33 U/L (12-78); ANION GAP 10 MEQ/L (8-16); AST/SGOT 44 U/L (7-37); BILIRUBIN,TOTAL 0.8 MG/DL (0.2-1.0); BLOOD UREA NITROGEN 8 MG/DL (7-18); CALCIUM LEVEL 8.2 MG/DL (8.5-10.1); CARBON DIOXIDE LEVEL 27 MEQ/L (21-32); CHLORIDE LEVEL 95 MEQ/L (98-107); CREATININE FOR GFR 0.58 MG/DL (0.70-1.30); GLOMERULAR FILTRATION RATE > 60.0 (>56); GLUCOSE, FASTING 228 MG/DL (70-100); POTASSIUM SERUM 3.5 MEQ/L (3.5-5.1); SODIUM LEVEL 132 MEQ/L (136-145); TOTAL PROTEIN 6.2 GM/DL (6.4-8.2)
[2017-09-12 05:04] LABS: LACTIC ACID SEPSIS PROTOCOL 1.7 MMOL/L (0.4-2.0)
[2017-09-12] MEDS: CEFEPIME HCL 2 GM in D5W MINI-BAG PLUS 50 ML IV ×2 (05:55→18:02)
[2017-09-12] MEDS: NS 1,000 ML IV (05:58)
[2017-09-12] MEDS: ENOXAPARIN 40 MG/0.4 ML SYRINGE (J1650) SC (08:46)
[2017-09-12] MEDS: CitaloPRAM (CeleXA) 20 MG TAB PO (08:47)
[2017-09-12] MEDS: CYANOCOBALAMIN 500 MCG TAB PO (08:47)
[2017-09-12] MEDS: busPIRone 5 MG TAB PO ×2 (08:47→20:01)
[2017-09-12] MEDS: PANTOPRAZOLE 40MG TAB (PROTONIX) PO (08:47)
[2017-09-12] MEDS: MAGNESIUM OXIDE 400 MG TAB (MAG-OX) PO (08:48)
[2017-09-12] MEDS: SENOKOT S TAB PO (08:48)
[2017-09-12] MEDS: THIAMINE 100 MG TAB PO (08:48)
[2017-09-12] MEDS: CARVedilol 12.5 MG TAB PO ×2 (08:48→20:00)
[2017-09-12] MEDS: MONTELUKAST 10 MG TAB PO (08:48)
[2017-09-12] MEDS: ASPIRIN 81 MG ENTERIC TAB PO (08:48)
[2017-09-12] MEDS: FOLIC ACID 1 MG TAB PO (08:49)
[2017-09-12] MEDS ORDERED: IBUPROFEN 600 MG TAB PO (17:30)
[2017-09-12] MEDS ORDERED: traZODone 50 MG TAB PO (17:30)
[2017-09-12] MEDS: OXAZEPAM 10 MG CAP PO (21:21)
[2017-09-12] MEDS: NICOTINE 14 MG/24 HR TRANSDERMAL TD (21:22)
[2017-09-13] MEDS: IPRATROPIUM 0.5MG/ALBUTEROL 2.5MG INH SOL UD 3ML (DUONEB)(J7620) NEB ×6 (03:55→23:09)
[2017-09-13 05:03] LABS: HEMATOCRIT 35.6 % (42.0-52.0); HEMOGLOBIN 12.6 g/dl (13.5-17.5); MEAN CORPUSCULAR HEMOGLOBIN 31.3 pg (27.0-33.0); MEAN CORPUSCULAR HGB CONC 35.4 g/dl (32.0-36.5); MEAN CORPUSCULAR VOLUME 88.6 fl (80.0-96.0); RED BLOOD COUNT 4.02 10^6/uL (4.30-6.10); RED CELL DISTRIBUTION WIDTH 13.3 % (11.5-14.5); WHITE BLOOD COUNT 5.6 10^3/uL (4.0-10.0)
[2017-09-13 05:06] LABS: PLATELET COUNT, AUTOMATED 94 10^3/uL (150-450)
[2017-09-13 05:07] LABS: IMMATURE PLATELET FRACTION % 23.1 % (0.0-10.9)
[2017-09-13 05:19] LABS: ALBUMIN/GLOBULIN RATIO 0.86 (1.00-1.93); ALKALINE PHOSPHATASE 43 U/L (45-117); ALT/SGPT 33 U/L (12-78); ANION GAP 8 MEQ/L (8-16); AST/SGOT 43 U/L (7-37); BILIRUBIN,TOTAL 0.8 MG/DL (0.2-1.0); BLOOD UREA NITROGEN 12 MG/DL (7-18); CALCIUM LEVEL 8.5 MG/DL (8.5-10.1); CARBON DIOXIDE LEVEL 29 MEQ/L (21-32); CHLORIDE LEVEL 96 MEQ/L (98-107); CREATININE FOR GFR 0.51 MG/DL (0.70-1.30); GLOMERULAR FILTRATION RATE > 60.0 (>56); GLUCOSE, FASTING 186 MG/DL (70-100); POTASSIUM SERUM 3.2 MEQ/L (3.5-5.1); SODIUM LEVEL 133 MEQ/L (136-145); TOTAL PROTEIN 6.5 GM/DL (6.4-8.2)
[2017-09-13] MEDS: CEFEPIME HCL 2 GM in D5W MINI-BAG PLUS 50 ML IV (06:09)
[2017-09-13] MEDS: methylPREDNISolone INJ 125 MG/2 ML VIAL (J2930) IV (06:09)
[2017-09-13] MEDS: ASPIRIN 81 MG ENTERIC TAB PO (08:28)
[2017-09-13] MEDS: MAGNESIUM OXIDE 400 MG TAB (MAG-OX) PO (08:28)
[2017-09-13] MEDS: FOLIC ACID 1 MG TAB PO (08:28)
[2017-09-13] MEDS: PANTOPRAZOLE 40MG TAB (PROTONIX) PO (08:28)
[2017-09-13] MEDS: MONTELUKAST 10 MG TAB PO (08:29)
[2017-09-13] MEDS: busPIRone 5 MG TAB PO ×2 (08:29→20:11)
[2017-09-13] MEDS: THIAMINE 100 MG TAB PO (08:29)
[2017-09-13] MEDS: CYANOCOBALAMIN 500 MCG TAB PO (08:29)
[2017-09-13] MEDS: CARVedilol 12.5 MG TAB PO ×2 (08:29→20:11)
[2017-09-13] MEDS: CitaloPRAM (CeleXA) 20 MG TAB PO (08:29)
[2017-09-13] MEDS: ONDANSETRON 4MG/2ML VIAL (J2405) IV (09:58)
[2017-09-13] MEDS: ACETAMINOPHEN TAB 650MG DOSE (2X325MG) PO (09:58)
[2017-09-13] MEDS: POTASSIUM CHLORIDE 10 MEQ SR TABLET PO ×2 (09:59→13:32)
[2017-09-13] MEDS: CEFUROXIME 500 MG TAB PO ×2 (12:24→20:10)
[2017-09-13] MEDS: OXAZEPAM 10 MG CAP PO (13:31)
[2017-09-13] MEDS: methylPREDNISolone INJ 40 MG/1 ML VIAL (J2920) IV ×2 (16:33→22:30)
[2017-09-13] MEDS: KCL 40MEQ in NS 1000ML 1,000 ML IV (19:49)
[2017-09-13] MEDS: NICOTINE 14 MG/24 HR TRANSDERMAL TD (20:17)
[2017-09-13] MEDS: CLOTRIMAZOLE 10 MG TROCHE PO (22:30)
[2017-09-14] MEDS: ONDANSETRON 4MG/2ML VIAL (J2405) IV ×3 (02:19→22:57)
[2017-09-14] MEDS: OXAZEPAM 10 MG CAP PO ×3 (02:19→22:57)
[2017-09-14] MEDS: IPRATROPIUM 0.5MG/ALBUTEROL 2.5MG INH SOL UD 3ML (DUONEB)(J7620) NEB ×6 (03:22→23:45)
[2017-09-14 05:07] LABS: HEMATOCRIT 33.9 % (42.0-52.0); MEAN CORPUSCULAR HEMOGLOBIN 31.7 pg (27.0-33.0); MEAN CORPUSCULAR HGB CONC 35.4 g/dl (32.0-36.5); MEAN CORPUSCULAR VOLUME 89.4 fl (80.0-96.0); PLATELET COUNT, AUTOMATED 109 10^3/uL (150-450); RED BLOOD COUNT 3.79 10^6/uL (4.30-6.10); RED CELL DISTRIBUTION WIDTH 13.4 % (11.5-14.5); WHITE BLOOD COUNT 5.1 10^3/uL (4.0-10.0)
[2017-09-14 05:22] LABS: MAGNESIUM LEVEL 1.5 MG/DL (1.8-2.4)
[2017-09-14 05:26] LABS: ALBUMIN 2.7 GM/DL (3.2-5.2); ALBUMIN/GLOBULIN RATIO 0.82 (1.00-1.93); ALKALINE PHOSPHATASE 43 U/L (45-117); ALT/SGPT 37 U/L (12-78); ANION GAP 7 MEQ/L (8-16); AST/SGOT 45 U/L (7-37); BILIRUBIN,TOTAL 0.6 MG/DL (0.2-1.0); BLOOD UREA NITROGEN 13 MG/DL (7-18); CARBON DIOXIDE LEVEL 28 MEQ/L (21-32); CHLORIDE LEVEL 100 MEQ/L (98-107); CREATININE FOR GFR 0.53 MG/DL (0.70-1.30); GLOMERULAR FILTRATION RATE > 60.0 (>56); GLUCOSE, FASTING 177 MG/DL (70-100); POTASSIUM SERUM 4.4 MEQ/L (3.5-5.1); SODIUM LEVEL 135 MEQ/L (136-145)
[2017-09-14] MEDS: methylPREDNISolone INJ 40 MG/1 ML VIAL (J2920) IV ×3 (06:08→22:58)
[2017-09-14] MEDS: MAG SULF 1GM/100ML (MAG RUN) 1 GM in APPROPRIATE DILUENT 1 EA IV (06:08)
[2017-09-14] MEDS: KCL 40MEQ in NS 1000ML 1,000 ML IV (06:08)
[2017-09-14] MEDS: CitaloPRAM (CeleXA) 20 MG TAB PO (07:57)
[2017-09-14] MEDS: CYANOCOBALAMIN 500 MCG TAB PO (07:57)
[2017-09-14] MEDS: ASPIRIN 81 MG ENTERIC TAB PO (07:58)
[2017-09-14] MEDS: MAGNESIUM OXIDE 400 MG TAB (MAG-OX) PO (07:58)
[2017-09-14] MEDS: FOLIC ACID 1 MG TAB PO (07:58)
[2017-09-14] MEDS: MONTELUKAST 10 MG TAB PO (07:58)
[2017-09-14] MEDS: PANTOPRAZOLE 40MG TAB (PROTONIX) PO (07:58)
[2017-09-14] MEDS: busPIRone 5 MG TAB PO ×2 (07:58→22:01)
[2017-09-14] MEDS: THIAMINE 100 MG TAB PO (07:58)
[2017-09-14] MEDS: CEFUROXIME 500 MG TAB PO ×2 (07:58→21:09)
[2017-09-14] MEDS: CARVedilol 12.5 MG TAB PO ×2 (07:59→21:10)
[2017-09-14] MEDS: MAALOX 30 ML SUSP *UDC PO (22:00)
[2017-09-15] MEDS: IPRATROPIUM 0.5MG/ALBUTEROL 2.5MG INH SOL UD 3ML (DUONEB)(J7620) NEB ×6 (03:01→22:51)
[2017-09-15] MEDS: methylPREDNISolone INJ 40 MG/1 ML VIAL (J2920) IV (06:25)
[2017-09-15] MEDS: OXAZEPAM 10 MG CAP PO ×3 (06:51→20:41)
[2017-09-15 07:18] LABS: ALBUMIN 2.8 GM/DL (3.2-5.2); ALBUMIN/GLOBULIN RATIO 0.88 (1.00-1.93); ALKALINE PHOSPHATASE 42 U/L (45-117); ALT/SGPT 61 U/L (12-78); ANION GAP 8 MEQ/L (8-16); AST/SGOT 64 U/L (7-37); BILIRUBIN,TOTAL 0.5 MG/DL (0.2-1.0); BLOOD UREA NITROGEN 14 MG/DL (7-18); CALCIUM LEVEL 8.3 MG/DL (8.5-10.1); CARBON DIOXIDE LEVEL 28 MEQ/L (21-32); CHLORIDE LEVEL 99 MEQ/L (98-107); GLOMERULAR FILTRATION RATE > 60.0 (>56); GLUCOSE, FASTING 129 MG/DL (70-100); MAGNESIUM LEVEL 1.6 MG/DL (1.8-2.4); POTASSIUM SERUM 4.3 MEQ/L (3.5-5.1); SODIUM LEVEL 135 MEQ/L (136-145)
[2017-09-15] MEDS: CARVedilol 12.5 MG TAB PO ×2 (08:55→20:41)
[2017-09-15] MEDS: FOLIC ACID 1 MG TAB PO (08:55)
[2017-09-15] MEDS: THIAMINE 100 MG TAB PO (08:55)
[2017-09-15] MEDS: ASPIRIN 81 MG ENTERIC TAB PO (08:56)
[2017-09-15] MEDS: CYANOCOBALAMIN 500 MCG TAB PO (08:56)
[2017-09-15] MEDS: CEFUROXIME 500 MG TAB PO ×2 (08:56→20:41)
[2017-09-15] MEDS: MONTELUKAST 10 MG TAB PO (08:56)
[2017-09-15] MEDS: CitaloPRAM (CeleXA) 20 MG TAB PO (08:56)
[2017-09-15] MEDS: PANTOPRAZOLE 40MG TAB (PROTONIX) PO (08:56)
[2017-09-15] MEDS: MAGNESIUM OXIDE 400 MG TAB (MAG-OX) PO (08:56)
[2017-09-15] MEDS: busPIRone 5 MG TAB PO ×2 (11:22→20:41)
[2017-09-15] MEDS: CLOTRIMAZOLE 10 MG TROCHE PO ×2 (11:22→22:49)
[2017-09-15] MEDS: ONDANSETRON 4MG/2ML VIAL (J2405) IV ×2 (13:52→20:41)
[2017-09-15] MEDS: predniSONE 20 MG TAB PO (20:41)
[2017-09-16] MEDS: IPRATROPIUM 0.5MG/ALBUTEROL 2.5MG INH SOL UD 3ML (DUONEB)(J7620) NEB ×5 (03:43→19:54)
[2017-09-16] MEDS: OXAZEPAM 10 MG CAP PO ×3 (05:06→21:32)
[2017-09-16] MEDS: ACETAMINOPHEN TAB 650MG DOSE (2X325MG) PO (05:07)
[2017-09-16] MEDS: MAGNESIUM OXIDE 400 MG TAB (MAG-OX) PO (08:48)
[2017-09-16] MEDS: PANTOPRAZOLE 40MG TAB (PROTONIX) PO (08:48)
[2017-09-16] MEDS: THIAMINE 100 MG TAB PO (08:49)
[2017-09-16] MEDS: MONTELUKAST 10 MG TAB PO (08:49)
[2017-09-16] MEDS: ASPIRIN 81 MG ENTERIC TAB PO (08:49)
[2017-09-16] MEDS: predniSONE 20 MG TAB PO ×2 (08:49→21:25)
[2017-09-16] MEDS: CARVedilol 12.5 MG TAB PO ×2 (08:50→21:26)
[2017-09-16] MEDS: FOLIC ACID 1 MG TAB PO (08:51)
[2017-09-16] MEDS: CitaloPRAM (CeleXA) 20 MG TAB PO (08:51)
[2017-09-16] MEDS: busPIRone 5 MG TAB PO ×2 (08:51→21:25)
[2017-09-16] MEDS: CYANOCOBALAMIN 500 MCG TAB PO (08:54)
[2017-09-16] MEDS: CEFUROXIME 500 MG TAB PO ×2 (08:55→21:25)
[2017-09-16 10:40] LABS: HEMOGLOBIN 11.5 g/dl (13.5-17.5); MEAN CORPUSCULAR HEMOGLOBIN 31.6 pg (27.0-33.0); MEAN CORPUSCULAR HGB CONC 34.8 g/dl (32.0-36.5); MEAN CORPUSCULAR VOLUME 90.7 fl (80.0-96.0); PLATELET COUNT, AUTOMATED 174 10^3/uL (150-450); RED BLOOD COUNT 3.64 10^6/uL (4.30-6.10); RED CELL DISTRIBUTION WIDTH 13.9 % (11.5-14.5); WHITE BLOOD COUNT 6.3 10^3/uL (4.0-10.0)
[2017-09-17] MEDS: IPRATROPIUM 0.5MG/ALBUTEROL 2.5MG INH SOL UD 3ML (DUONEB)(J7620) NEB ×5 (00:44→15:21)
[2017-09-17] MEDS: CitaloPRAM (CeleXA) 20 MG TAB PO (08:51)
[2017-09-17] MEDS: CYANOCOBALAMIN 500 MCG TAB PO (08:51)
[2017-09-17] MEDS: THIAMINE 100 MG TAB PO (08:52)
[2017-09-17] MEDS: CEFUROXIME 500 MG TAB PO (08:52)
[2017-09-17] MEDS: PANTOPRAZOLE 40MG TAB (PROTONIX) PO (08:52)
[2017-09-17] MEDS: MAGNESIUM OXIDE 400 MG TAB (MAG-OX) PO (08:52)
[2017-09-17] MEDS: CARVedilol 12.5 MG TAB PO (08:52)
[2017-09-17] MEDS: ASPIRIN 81 MG ENTERIC TAB PO (08:52)
[2017-09-17] MEDS: MONTELUKAST 10 MG TAB PO (08:52)
[2017-09-17] MEDS: FOLIC ACID 1 MG TAB PO (08:52)
[2017-09-17] MEDS: predniSONE 20 MG TAB PO (08:52)
[2017-09-17] MEDS: busPIRone 5 MG TAB PO (08:52)
== END 2017-09-17 15:46 | disposition home or self-care (01) | DRG 140 ==
LOC: M MSPAV 09-14 17:16 → M ED 14:15 → M ED INP 19:23 → M ICU 20:48
DX: J44.1 Chronic obstructive pulmonary disease with (acute) exacerbation (principal); I42.6 Alcoholic cardiomyopathy; E87.2 Acidosis; D69.6 Thrombocytopenia, unspecified; I95.9 Hypotension, unspecified; Z99.81 Dependence on supplemental oxygen; F17.210 Nicotine dependence, cigarettes, uncomplicated; I10 Essential (primary) hypertension; E87.6 Hypokalemia; J30.9 Allergic rhinitis, unspecified; K21.9 Gastro-esophageal reflux disease without esophagitis; F10.239 Alcohol dependence with withdrawal, unspecified; F32.9 Major depressive disorder, single episode, unspecified; F10.288 Alcohol dependence with other alcohol-induced disorder; Z98.41 Cataract extraction status, right eye; Z79.82 Long term (current) use of aspirin; Z79.899 Other long term (current) drug therapy; Z91.040 Latex allergy status; R06.03 Acute respiratory distress

== ENCOUNTER 2017-10-04 15:10 | Inpatient (IN) | payer OTHER ==
[2017-10-04] MEDS: IPRATROPIUM 0.5MG/ALBUTEROL 2.5MG INH SOL UD 3ML (DUONEB)(J7620) NEB (16:44)
[2017-10-04] MEDS: NS 500 ML IV (16:49)
[2017-10-04] MEDS: FAMOTIDINE IV BAG 20 MG in APPROPRIATE DILUENT 1 EA IV (17:45)
[2017-10-04 22:11] LABS: BASO % 0.3 % (0.0-1.0); EOS # 0.1 10^3/uL (0.0-0.50); EOS % 2.2 % (0.0-3.0); HEMATOCRIT 42.4 % (42.0-52.0); HEMOGLOBIN 14.1 g/dl (13.5-17.5); IMMATURE GRANULOCYTE % 0.3 % (0-3.0); LYMPH # 3.1 10^3/uL (1.5-4.5); LYMPH % 51.2 % (24.0-44.0); MEAN CORPUSCULAR HGB CONC 33.3 g/dl (32.0-36.5); MEAN CORPUSCULAR VOLUME 96.4 fl (80.0-96.0); MONO # 0.4 10^3/uL (0.0-0.8); NEUTROPHILS # 2.3 10^3/uL (1.8-7.7); PLATELET COUNT, AUTOMATED 244 10^3/uL (150-450); RED CELL DISTRIBUTION WIDTH 15.5 % (11.5-14.5)
[2017-10-04 22:12] LABS: ALBUMIN 3.3 GM/DL (3.2-5.2); ALBUMIN/GLOBULIN RATIO 0.92 (1.00-1.93); ALKALINE PHOSPHATASE 64 U/L (45-117); ALT/SGPT 63 U/L (12-78); ANION GAP 16 MEQ/L (8-16); AST/SGOT 67 U/L (7-37); BILIRUBIN,DIRECT 0.1 MG/DL (0.0-0.2); BILIRUBIN,TOTAL 0.3 MG/DL (0.2-1.0); BLOOD UREA NITROGEN 12 MG/DL (7-18); CALCIUM LEVEL 8.2 MG/DL (8.5-10.1); CARBON DIOXIDE LEVEL 22 MEQ/L (21-32); CHLORIDE LEVEL 104 MEQ/L (98-107); COMPLEMENT C4 25.9 MG/DL (10-40); CREATININE FOR GFR 1.29 MG/DL (0.70-1.30); GLOMERULAR FILTRATION RATE > 60.0 (>56); GLUCOSE, FASTING 133 MG/DL (70-100); SODIUM LEVEL 142 MEQ/L (136-145); TOTAL PROTEIN 6.9 GM/DL (6.4-8.2)
[2017-10-04 22:39] LABS: ERYTHROCYTE SEDIMENTATION RATE 29 mm/hr (0-20)
[2017-10-04] MEDS: methylPREDNISolone INJ 125 MG/2 ML VIAL (J2930) IV (22:52)
[2017-10-04] MEDS ORDERED: POLYVINYL ALCOHOL OPHTH SOLN 15 ML(LIQUITEARS) OU (23:15)
[2017-10-04] MEDS ORDERED: hydrOXYzine 25 MG TAB PO (23:15)
[2017-10-04] MEDS ORDERED: THIAMINE HCL 200 MG/2 ML VIAL (J3411) IM (23:15)
[2017-10-04] MEDS ORDERED: ACETAMINOPHEN 500 MG TAB PO (23:15)
[2017-10-05] MEDS ORDERED: LORazepam 2 MG TAB PO
[2017-10-05 00:32] LABS: MAGNESIUM LEVEL 1.6 MG/DL (1.8-2.4); PHOSPHORUS LEVEL 4.6 MG/DL (2.5-4.9)
[2017-10-05] MEDS: diphenhydrAMINE 25 MG CAP PO ×5 (00:35→22:44)
[2017-10-05] MEDS: CARVedilol 12.5 MG TAB PO ×3 (00:35→20:12)
[2017-10-05] MEDS: MULTIVITAMIN -ADULT INJECTION 10 ML, THIAMINE INJection 100 MG, FOLIC ACID 1 MG in NS 1... IV (00:36)
[2017-10-05] MEDS: IPRATROPIUM 0.5MG/ALBUTEROL 2.5MG INH SOL UD 3ML (DUONEB)(J7620) NEB ×5 (01:20→20:12)
[2017-10-05] MEDS: MAG SULF 1GM/100ML (MAG RUN) 1 GM in APPROPRIATE DILUENT 1 EA IV ×2 (01:25→02:25)
[2017-10-05] MEDS: methylPREDNISolone INJ 40 MG/1 ML VIAL (J2920) IV ×4 (03:58→22:44)
[2017-10-05] MEDS ORDERED: METAL LOCK LOOP XX (05:42)
[2017-10-05] MEDS: FAMOTIDINE IV BAG 20 MG in APPROPRIATE DILUENT 1 EA IV ×2 (05:51→18:53)
[2017-10-05 07:29] LABS: ALBUMIN 2.9 GM/DL (3.2-5.2); ALBUMIN/GLOBULIN RATIO 0.74 (1.00-1.93); ALKALINE PHOSPHATASE 55 U/L (45-117); ALT/SGPT 47 U/L (12-78); ANION GAP 9 MEQ/L (8-16); AST/SGOT 32 U/L (7-37); BILIRUBIN,TOTAL 0.6 MG/DL (0.2-1.0); BLOOD UREA NITROGEN 12 MG/DL (7-18); CALCIUM LEVEL 8.5 MG/DL (8.5-10.1); CARBON DIOXIDE LEVEL 27 MEQ/L (21-32); CHLORIDE LEVEL 103 MEQ/L (98-107); CREATININE FOR GFR 0.59 MG/DL (0.70-1.30); GLUCOSE, FASTING 189 MG/DL (70-100); MAGNESIUM LEVEL 2.1 MG/DL (1.8-2.4); PHOSPHORUS LEVEL 2.4 MG/DL (2.5-4.9); SODIUM LEVEL 139 MEQ/L (136-145); TOTAL PROTEIN 6.8 GM/DL (6.4-8.2)
[2017-10-05 07:40] LABS: GLOMERULAR FILTRATION RATE > 60.0 (>56)
[2017-10-05] MEDS: ADVAIR HFA 230/21MCG INHALER INH ×2 (08:27→20:00)
[2017-10-05] MEDS ORDERED: THIAMINE 100 MG TAB PO ×2 (09:00)
[2017-10-05] MEDS ORDERED: LOSARTAN 25 MG TAB PO (09:00)
[2017-10-05] MEDS: MAGNESIUM OXIDE 400 MG TAB (MAG-OX) PO (10:06)
[2017-10-05] MEDS: THIAMINE 100 MG TAB PO ×2 (10:06→20:12)
[2017-10-05] MEDS: CitaloPRAM (CeleXA) 20 MG TAB PO (10:07)
[2017-10-05] MEDS: FOLIC ACID 1 MG TAB PO (10:07)
[2017-10-05] MEDS: PANTOPRAZOLE 40MG TAB (PROTONIX) PO (10:07)
[2017-10-05] MEDS: MONTELUKAST 10 MG TAB PO (10:08)
[2017-10-05] MEDS: MULTIVITAMINS/MINERALS THERAP 1 TAB PO (10:08)
[2017-10-05] MEDS: CYANOCOBALAMIN 500 MCG TAB PO (10:08)
[2017-10-05] MEDS: ASPIRIN 81 MG ENTERIC TAB PO (10:09)
[2017-10-05] MEDS: ENOXAPARIN 40 MG/0.4 ML SYRINGE (J1650) SC (10:10)
[2017-10-05] MEDS: NICOTINE 21MG/24HR 1 EA TRANSDERMAL TD (10:11)
[2017-10-05] MEDS: busPIRone 5 MG TAB PO (20:12)
[2017-10-05] MEDS: LORazepam 2 MG TAB PO (20:17)
[2017-10-06] MEDS: IPRATROPIUM 0.5MG/ALBUTEROL 2.5MG INH SOL UD 3ML (DUONEB)(J7620) NEB ×3 (01:35→13:46)
[2017-10-06] MEDS: LORazepam 2 MG TAB PO ×2 (01:52→09:24)
[2017-10-06] MEDS: FAMOTIDINE IV BAG 20 MG in APPROPRIATE DILUENT 1 EA IV (06:24)
[2017-10-06] MEDS: diphenhydrAMINE 25 MG CAP PO ×2 (06:24→15:29)
[2017-10-06] MEDS: ADVAIR HFA 230/21MCG INHALER INH (07:41)
[2017-10-06] MEDS: NICOTINE 21MG/24HR 1 EA TRANSDERMAL TD (09:00)
[2017-10-06] MEDS: ENOXAPARIN 40 MG/0.4 ML SYRINGE (J1650) SC (09:21)
[2017-10-06] MEDS: MULTIVITAMINS/MINERALS THERAP 1 TAB PO (09:21)
[2017-10-06] MEDS: predniSONE 20 MG TAB PO (09:21)
[2017-10-06] MEDS: THIAMINE 100 MG TAB PO (09:21)
[2017-10-06] MEDS: MONTELUKAST 10 MG TAB PO (09:21)
[2017-10-06] MEDS: CYANOCOBALAMIN 500 MCG TAB PO (09:22)
[2017-10-06] MEDS: MAGNESIUM OXIDE 400 MG TAB (MAG-OX) PO (09:22)
[2017-10-06] MEDS: PANTOPRAZOLE 40MG TAB (PROTONIX) PO (09:22)
[2017-10-06] MEDS: FOLIC ACID 1 MG TAB PO (09:22)
[2017-10-06] MEDS: CitaloPRAM (CeleXA) 20 MG TAB PO (09:22)
[2017-10-06] MEDS: CARVedilol 12.5 MG TAB PO (09:23)
[2017-10-06] MEDS: busPIRone 5 MG TAB PO (09:23)
[2017-10-06] MEDS: ASPIRIN 81 MG ENTERIC TAB PO (09:24)
[2017-10-06] MEDS: NALTREXONE 50 MG TAB PO (09:24)
[2017-10-10 00:07] LABS: C1 ESTER INHIB. NON FUNCTIONAL 41 mg/dL (21-39); COAGULATION FACTOR XII ACTIVIT 101 % (50-150); TRYPTASE 9.2 ug/L (2.2-13.2)
[2017-10-10 00:07] LABS: C1 ESTERASE INHIB. FUNCTIONAL 100 (.)
== END 2017-10-06 16:44 | disposition home or self-care (01) | DRG 811 ==
LOC: M ED INP 23:04 → M ED 15:10 → M PCU 10-05 15:15
DX: T78.3XXA Angioneurotic edema, initial encounter (principal); I42.6 Alcoholic cardiomyopathy; I11.0 Hypertensive heart disease with heart failure; Z99.81 Dependence on supplemental oxygen; T78.2XXA Anaphylactic shock, unspecified, initial encounter; I50.22 Chronic systolic (congestive) heart failure; J44.9 Chronic obstructive pulmonary disease, unspecified; F17.210 Nicotine dependence, cigarettes, uncomplicated; K21.9 Gastro-esophageal reflux disease without esophagitis; J30.9 Allergic rhinitis, unspecified; F10.288 Alcohol dependence with other alcohol-induced disorder; F32.9 Major depressive disorder, single episode, unspecified; Z79.82 Long term (current) use of aspirin; Z79.899 Other long term (current) drug therapy; Z91.040 Latex allergy status

== ENCOUNTER 2017-11-17 20:42 | Emergency (ER) | payer OTHER ==
[2017-11-17] MEDS: IPRATROPIUM 0.5MG/ALBUTEROL 2.5MG INH SOL UD 3ML (DUONEB)(J7620) NEB ×3 (23:03→23:46)
[2017-11-17 23:09] LABS: BASO % 0.5 % (0.0-1.0); EOS # 0.1 10^3/uL (0.0-0.50); HEMATOCRIT 32.9 % (42.0-52.0); HEMOGLOBIN 11.5 g/dl (13.5-17.5); IMMATURE GRANULOCYTE % 0.5 % (0-3.0); LYMPH # 1.7 10^3/uL (1.5-4.5); LYMPH % 42.6 % (24.0-44.0); MEAN CORPUSCULAR HEMOGLOBIN 32.6 pg (27.0-33.0); MEAN CORPUSCULAR VOLUME 93.2 fl (80.0-96.0); MONO # 0.5 10^3/uL (0.0-0.8); MONO % 12.6 % (0.0-5.0); NEUTROPHILS # 1.7 10^3/uL (1.8-7.7); NEUTROPHILS % 41.8 % (36.0-66.0); PLATELET COUNT, AUTOMATED 153 10^3/uL (150-450); RED BLOOD COUNT 3.53 10^6/uL (4.30-6.10); RED CELL DISTRIBUTION WIDTH 14.3 % (11.5-14.5)
[2017-11-17 23:40] LABS: ANION GAP 14 MEQ/L (8-16); BLOOD UREA NITROGEN 7 MG/DL (7-18); CALCIUM LEVEL 8.5 MG/DL (8.5-10.1); CARBON DIOXIDE LEVEL 25 MEQ/L (21-32); CHLORIDE LEVEL 102 MEQ/L (98-107); CREATININE FOR GFR 0.54 MG/DL (0.70-1.30); GLOMERULAR FILTRATION RATE > 60.0 (>56); GLUCOSE, FASTING 83 MG/DL (70-100); POTASSIUM SERUM 3.8 MEQ/L (3.5-5.1); SODIUM LEVEL 141 MEQ/L (136-145)
[2017-11-18] MEDS: methylPREDNISolone INJ 125 MG/2 ML VIAL (J2930) IV (00:03)
== END 2017-11-18 00:27 | disposition home or self-care (01) ==
LOC: M ED 11-18 00:27
DX: J44.1 Chronic obstructive pulmonary disease with (acute) exacerbation (principal); F41.9 Anxiety disorder, unspecified; I51.9 Heart disease, unspecified; I10 Essential (primary) hypertension; F10.10 Alcohol abuse, uncomplicated; J30.2 Other seasonal allergic rhinitis; Z72.0 Tobacco use; Z79.82 Long term (current) use of aspirin; Z79.899 Other long term (current) drug therapy; Z91.040 Latex allergy status
CPT/HCPCS: J2930

== ENCOUNTER 2017-11-18 11:42 | Emergency (ER) | payer OTHER ==
[2017-11-18 13:56] LABS: ALBUMIN 4.1 GM/DL (3.2-5.2); ALBUMIN/GLOBULIN RATIO 1.17 (1.00-1.93); ALKALINE PHOSPHATASE 60 U/L (45-117); ALT/SGPT 57 U/L (12-78); ANION GAP 11 MEQ/L (8-16); AST/SGOT 69 U/L (7-37); BILIRUBIN,DIRECT 0.3 MG/DL (0.0-0.2); BILIRUBIN,TOTAL 0.8 MG/DL (0.2-1.0); BLOOD UREA NITROGEN 6 MG/DL (7-18); CARBON DIOXIDE LEVEL 26 MEQ/L (21-32); CHLORIDE LEVEL 99 MEQ/L (98-107); CREATININE FOR GFR 0.71 MG/DL (0.70-1.30); FREE T4 0.74 NG/DL (0.76-1.46); GLOMERULAR FILTRATION RATE > 60.0 (>56); GLUCOSE, FASTING 163 MG/DL (70-100); MAGNESIUM LEVEL 1.4 MG/DL (1.8-2.4); PHOSPHORUS LEVEL 2.4 MG/DL (2.5-4.9); POTASSIUM SERUM 4.1 MEQ/L (3.5-5.1); SODIUM LEVEL 136 MEQ/L (136-145); TOTAL PROTEIN 7.6 GM/DL (6.4-8.2)
[2017-11-18 14:06] LABS: HEMATOCRIT 35.7 % (42.0-52.0); HEMOGLOBIN 12.6 g/dl (13.5-17.5); IMMATURE GRANULOCYTE % 1.2 % (0-3.0); LYMPH # 0.4 10^3/uL (1.5-4.5); MEAN CORPUSCULAR HEMOGLOBIN 32.6 pg (27.0-33.0); MEAN CORPUSCULAR HGB CONC 35.3 g/dl (32.0-36.5); MEAN CORPUSCULAR VOLUME 92.2 fl (80.0-96.0); MONO # 0.2 10^3/uL (0.0-0.8); MONO % 7.4 % (0.0-5.0); NEUTROPHILS % 77.4 % (36.0-66.0); PLATELET COUNT, AUTOMATED 158 10^3/uL (150-450); RED BLOOD COUNT 3.87 10^6/uL (4.30-6.10); WHITE BLOOD COUNT 2.6 10^3/uL (4.0-10.0)
[2017-11-18] MEDS: MAGNESIUM OXIDE 400 MG TAB (MAG-OX) PO (18:34)
[2017-11-18] MEDS: NEUTRA-PHOS 1.25 GM PACKET PO (18:34)
== END 2017-11-18 18:53 | disposition home or self-care (01) ==
LOC: M ED 11:42
DX: E83.42 Hypomagnesemia (principal); J44.9 Chronic obstructive pulmonary disease, unspecified; I10 Essential (primary) hypertension; K21.9 Gastro-esophageal reflux disease without esophagitis; F33.9 Major depressive disorder, recurrent, unspecified; F10.10 Alcohol abuse, uncomplicated; Z79.899 Other long term (current) drug therapy; Z79.82 Long term (current) use of aspirin; Z79.51 Long term (current) use of inhaled steroids; Z91.040 Latex allergy status; F17.210 Nicotine dependence, cigarettes, uncomplicated
CPT/HCPCS: 83735

== ENCOUNTER → 2017-11-29 | Outpatient (CLI) | payer OTHER ==
[2017-11-29 20:11] LABS: ALBUMIN 3.1 GM/DL (3.2-5.2); ALBUMIN/GLOBULIN RATIO 0.91 (1.00-1.93); ALKALINE PHOSPHATASE 46 U/L (45-117); ALT/SGPT 110 U/L (12-78); ANION GAP 8 MEQ/L (8-16); AST/SGOT 100 U/L (7-37); BILIRUBIN,TOTAL 0.2 MG/DL (0.2-1.0); BLOOD UREA NITROGEN 9 MG/DL (7-18); CALCIUM LEVEL 8.3 MG/DL (8.5-10.1); CARBON DIOXIDE LEVEL 30 MEQ/L (21-32); CHLORIDE LEVEL 105 MEQ/L (98-107); CREATININE FOR GFR 0.53 MG/DL (0.70-1.30); GLOMERULAR FILTRATION RATE > 60.0 (>56); GLUCOSE, FASTING 96 MG/DL (70-100); MAGNESIUM LEVEL 1.8 MG/DL (1.8-2.4); POTASSIUM SERUM 4.9 MEQ/L (3.5-5.1); SODIUM LEVEL 143 MEQ/L (136-145); TOTAL PROTEIN 6.5 GM/DL (6.4-8.2)
== END ==
LOC: M WUC 16:19
DX: E83.42 Hypomagnesemia (principal); E83.39 Other disorders of phosphorus metabolism
CPT/HCPCS: 83735

== ENCOUNTER 2018-01-04 18:12 | Emergency (ER) | payer OTHER ==
[2018-01-04 18:47] LABS: ABG BASE EXCESS -1.1 (-2.0-2.0); ABG HCO3 22.6 MEQ/L (22.0-26.0); ABG O2 SATURATION 98.4 % (95.0-99.0); ABG PARTIAL PRESSURE CO2 34.6 mmHg (35.0-45.0); ABG PARTIAL PRESSURE O2 127.4 mmHg (75.0-100.0); ABG STANDARD HCO3 23.6 MEQ/L (22.0-26.0); ABG TOTAL CO2 23.6 MEQ/L (22.0-29.0); ABG pH (ARTERIAL) 7.432 UNITS (7.350-7.450)
[2018-01-04 18:55] LABS: BASO # 0.1 10^3/uL (0.0-0.2); BASO % 1.1 % (0.0-1.0); EOS # 0.1 10^3/uL (0.0-0.50); EOS % 2.3 % (0.0-3.0); HEMATOCRIT 39.1 % (42.0-52.0); HEMOGLOBIN 13.6 g/dl (13.5-17.5); IMMATURE GRANULOCYTE % 0.2 % (0-3.0); LYMPH # 1.9 10^3/uL (1.5-4.5); LYMPH % 42.4 % (24.0-44.0); MEAN CORPUSCULAR HEMOGLOBIN 32.7 pg (27.0-33.0); MEAN CORPUSCULAR HGB CONC 34.8 g/dl (32.0-36.5); MONO # 0.5 10^3/uL (0.0-0.8); MONO % 11.4 % (0.0-5.0); NEUTROPHILS # 1.9 10^3/uL (1.8-7.7); NEUTROPHILS % 42.6 % (36.0-66.0); RED BLOOD COUNT 4.16 10^6/uL (4.30-6.10); RED CELL DISTRIBUTION WIDTH 13.6 % (11.5-14.5); WHITE BLOOD COUNT 4.4 10^3/uL (4.0-10.0)
[2018-01-04 19:09] LABS: INR 0.95; PROTHROMBIN TIME 12.8 SECONDS (12.1-14.4)
[2018-01-04 19:30] LABS: ALBUMIN 4.1 GM/DL (3.2-5.2); ALBUMIN/GLOBULIN RATIO 1.28 (1.00-1.93); ALKALINE PHOSPHATASE 83 U/L (45-117); ALT/SGPT 72 U/L (12-78); ANION GAP 15 MEQ/L (8-16); AST/SGOT 181 U/L (7-37); BILIRUBIN,DIRECT 0.4 MG/DL (0.0-0.2); BLOOD UREA NITROGEN 6 MG/DL (7-18); CALCIUM LEVEL 9.4 MG/DL (8.5-10.1); CARBON DIOXIDE LEVEL 25 MEQ/L (21-32); CHLORIDE LEVEL 96 MEQ/L (98-107); CK-MB VALUE MASS < 1.0 NG/ML (<3.6); CPK CREATINE PHOSPHOKINASE 63 U/L (39-308); CREATININE FOR GFR 0.49 MG/DL (0.70-1.30); GLOMERULAR FILTRATION RATE > 60.0 (>56); GLUCOSE, FASTING 88 MG/DL (70-100); MB/CK RELATIVE INDEX 1.59 (< OR =4); NT-PRO BNP 16 PG/ML (<125); POTASSIUM SERUM 3.6 MEQ/L (3.5-5.1); SODIUM LEVEL 136 MEQ/L (136-145); TOTAL PROTEIN 7.3 GM/DL (6.4-8.2); TROPONIN I < 0.02 NG/ML (< 0.10)
[2018-01-04] MEDS: dexameTHASONE 20 MG/5 ML VIAL (J1100) IV (20:00)
[2018-01-04] MEDS: IPRATROPIUM 0.5MG/ALBUTEROL 2.5MG INH SOL UD 3ML (DUONEB)(J7620) NEB (20:08)
== END 2018-01-04 21:35 | disposition home or self-care (01) ==
LOC: M ED 18:12
DX: J44.1 Chronic obstructive pulmonary disease with (acute) exacerbation (principal); I10 Essential (primary) hypertension; F10.20 Alcohol dependence, uncomplicated; Z99.81 Dependence on supplemental oxygen; F17.200 Nicotine dependence, unspecified, uncomplicated; J30.2 Other seasonal allergic rhinitis; Z91.040 Latex allergy status; Z79.899 Other long term (current) drug therapy; Z79.51 Long term (current) use of inhaled steroids
CPT/HCPCS: J1100

== ENCOUNTER → 2018-01-09 | Outpatient (REF) | payer OTHER ==
[2018-01-10 12:01] LABS: PSA SCREENING 0.5 NG/ML (< 4.0)
== END ==
LOC: M SFHCCLAY 15:47
DX: R39.12 Poor urinary stream (principal)
CPT/HCPCS: 84153

== ENCOUNTER → 2018-01-24 | Outpatient (REF) | payer OTHER ==
[2018-01-24 13:38] LABS: APPEARANCE, URINE CLEAR (CLEAR); BACTERIA, URINE AUTO NEGATIVE (NEGATIVE); BILIRUBIN, URINE AUTO NEGATIVE (NEGATIVE); BLOOD, URINE BLOOD NEGATIVE (NEGATIVE); COLOR, URINE YELLOW (YELLOW); GLUCOSE, URINE (UA) AUTO NEGATIVE (NEGATIVE); KETONE, URINE AUTO TRACE mg/dL (NEGATIVE); LEUKOCYTE ESTERASE, URINE AUTO NEGATIVE (NEGATIVE); MUCUS, URINE SMALL (NEGATIVE); NITRITE, URINE AUTO NEGATIVE (NEGATIVE); PROTEIN, URINE AUTO NEGATIVE (NEGATIVE); RBC, URINE AUTO 0 /HPF (0-3); SPECIFIC GRAVITY URINE AUTO 1.025 (1.002-1.035); SQUAMOUS EPITHELIAL CELL UR AU 0 /HPF (0-6); WBC, URINE AUTO 1 /HPF (0-3)
== END ==
LOC: M SMT 13:00
DX: R39.15 Urgency of urination (principal)
CPT/HCPCS: 81001

== ENCOUNTER 2018-02-08 18:25 | Emergency (ER) | payer OTHER ==
[2018-02-08] MEDS: dexameTHASONE 20 MG/5 ML VIAL (J1100) IV (19:30)
[2018-02-08 19:39] LABS: BASO % 0.4 % (0.0-1.0); EOS # 0.1 10^3/uL (0.0-0.50); EOS % 1.8 % (0.0-3.0); HEMATOCRIT 39.8 % (42.0-52.0); IMMATURE GRANULOCYTE % 0.5 % (0-3.0); LYMPH % 35.8 % (24.0-44.0); MEAN CORPUSCULAR HEMOGLOBIN 33.2 pg (27.0-33.0); MEAN CORPUSCULAR HGB CONC 35.2 g/dl (32.0-36.5); MEAN CORPUSCULAR VOLUME 94.3 fl (80.0-96.0); MONO # 0.8 10^3/uL (0.0-0.8); MONO % 14.3 % (0.0-5.0); NEUTROPHILS # 2.6 10^3/uL (1.8-7.7); NEUTROPHILS % 47.2 % (36.0-66.0); PLATELET COUNT, AUTOMATED 113 10^3/uL (150-450); RED BLOOD COUNT 4.22 10^6/uL (4.30-6.10); RED CELL DISTRIBUTION WIDTH 13.1 % (11.5-14.5); WHITE BLOOD COUNT 5.5 10^3/uL (4.0-10.0)
[2018-02-08 19:42] LABS: ANION GAP 13 MEQ/L (8-16); BLOOD UREA NITROGEN 9 MG/DL (7-18); CALCIUM LEVEL 8.9 MG/DL (8.5-10.1); CARBON DIOXIDE LEVEL 26 MEQ/L (21-32); CHLORIDE LEVEL 97 MEQ/L (98-107); CREATININE FOR GFR 0.86 MG/DL (0.70-1.30); GLOMERULAR FILTRATION RATE > 60.0 (>56); GLUCOSE, FASTING 120 MG/DL (70-100); POTASSIUM SERUM 3.5 MEQ/L (3.5-5.1); SODIUM LEVEL 136 MEQ/L (136-145)
[2018-02-08] MEDS: IPRATROPIUM 0.5MG/ALBUTEROL 2.5MG INH SOL UD 3ML (DUONEB)(J7620) NEB ×3 (20:10→20:50)
[2018-02-08 20:37] LABS: ABG BASE EXCESS 1.8 (-2.0-2.0); ABG O2 SATURATION 92.1 % (95.0-99.0); ABG PARTIAL PRESSURE CO2 44.5 mmHg (35.0-45.0); ABG PARTIAL PRESSURE O2 66.8 mmHg (75.0-100.0); ABG STANDARD HCO3 25.9 MEQ/L (22.0-26.0); ABG TOTAL CO2 28.4 MEQ/L (22.0-29.0); ABG pH (ARTERIAL) 7.401 UNITS (7.350-7.450)
== END 2018-02-08 22:35 | disposition home or self-care (01) ==
LOC: M ED 18:25
DX: J44.9 Chronic obstructive pulmonary disease, unspecified (principal); I10 Essential (primary) hypertension; K21.9 Gastro-esophageal reflux disease without esophagitis; F10.10 Alcohol abuse, uncomplicated; J30.9 Allergic rhinitis, unspecified; Z79.82 Long term (current) use of aspirin; Z79.899 Other long term (current) drug therapy; Z91.040 Latex allergy status
CPT/HCPCS: J1100

== ENCOUNTER 2018-03-12 00:05 | Emergency (ER) | payer OTHER ==
[~2018-03-12 00:05] MED LIST changes: +/ADVA50050 INH; +ABIL1TAB11 PO; -ACETAMINOPHEN 325 MG TAB PO; +ACTI300C PO; +ADV500INH; +ADV500INH INH; +ADVA115A INH; +ADVI200T PO; +ALBU17IN INH; +ALBU17IN2 INH; +ALBU83IN INH; +ARTI99.0 OU; +ASPI1TAB PO; +ASPI81CH PO; +AUGM875T28 PO; +AVAP150T PO; +AVAP150T31 PO; +AZIT-12 PO; +AZIT600T PO; +BREO1INH3 INH; +BUSP10TA PO; +BUSP15TA47 PO; +BUSP5TA PO; +CARV12.5 PO; +CARV6.25 PO; +CEFD1CAP8 PO; +CEFT500T3 PO; +CEFU50TA PO; +CELE20TA PO; +CITA-231 PO; +CITA20TA4 PO; +CITA40TA4 PO; +CLOR37TA PO; +CLOT10TR MT; +COZA1TAB PO; +COZA50TA PO; +DOXY100T PO; +DUONSOL INH; +FLON1SPR; +FOLI1TAB11 PO; +FOLI1TAB86 PO; +FOLI800T PO; +HYDR-3363 PO; +HYDROXYZINE HCL PO; +INCR1INH IN; +INCR1INH INH; +IPRA0.00 INH; +IPRA2IN INH; +IRBE150T3 PO; +KETO5OPD OD; +KETO5OPD OS; +LEVA1TAB2 PO; +LEVOTAB10 PO; +LOSA25TA14 PO; +LOSA50TA88 PO; +MAG400TA PO; +MAGN400T5 PO; +MOME50SP; +MONTELUKAST PO; +MUCI600T37 PO; +NALT50TA4 PO; +NASA1SPR; +NICO14PA EXT; +NICO14PA TOP; +NICO21DI31 TD; +NICO21PAT EXT; +NICO21PAT TD; +NORC1TAB4 PO; +NORCOTAB PO; +OLOP1OPD; +OMEP40CA2 PO; +OSEL75CA PO; +OXAZ10CA3 PO; +OXAZ15CA4 PO; +OXAZ30CA2 PO; +PANT40TA3 PO; +PATA2.5S OU; -PHENYLEPHRINE HCL 10 % OPHTH. SOL 5ML OS; +PRED10TA PO; +PRED10TA2; +PRED10TA2 PO; +PRED1SOL3 OS; +PRED1TAB32 PO; +PRED20TA PO; +PRED50TA2 PO; +PREDOPD OS; -PROPARACAINE 0.5% OPHTH SOL 15ML OS; +Pantoprazole Sodium PO; +SING10TA32 PO; +SPIR12.9 INH; +SPIR1CAP INH; +THIA100TA PO; +TIOT18INH INH; +TOBR0.3S37 OD; +TRAZ-160 PO; +TRAZ-163 PO; +TRIA1CR TOP; +TYLE500T78 PO; +Thiamine Hcl PO; +URSO300C2 PO; +VENTAER INH; +VIBR100C PO; +VITA100072 PO; +VITA100T88 PO; +VITA250T50 PO; +VITA500T53 PO; +VITA50TA47; +VITA50TA47 PO; +XANA0.25 PO; +[UNRECOGNIZED DRUG - REMARK] PO; +b 12 PO; +citalopram PO; +ventolin neb INH
[2018-03-12] MEDS ORDERED: methylPREDNISolone INJ 125 MG/2 ML VIAL (J2930) IV ONE (01:15)
[2018-03-12 01:32] LABS: VENOUS HCO3 25.4 MEQ/L (23.0-27.0); VENOUS O2 SATURATION 93.5 % (60.0-80.0); VENOUS PARTIAL PRESSURE O2 71.9 mmHg (30.0-50.0); VENOUS PH 7.379 UNITS (7.330-7.430); VENOUS STANDARD HCO3 24.4 MEQ/L; VENOUS TOTAL CO2 26.7 MEQ/L (24.0-28.0)
[2018-03-12 01:34] LABS: BASO % 0.3 % (0.0-1.0); EOS % 0.3 % (0.0-3.0); HEMATOCRIT 40.6 % (42.0-52.0); HEMOGLOBIN 13.8 g/dl (13.5-17.5); LYMPH # 0.5 10^3/uL (1.5-4.5); LYMPH % 8.3 % (24.0-44.0); MEAN CORPUSCULAR HEMOGLOBIN 32.9 pg (27.0-33.0); MEAN CORPUSCULAR VOLUME 96.7 fl (80.0-96.0); MONO # 0.2 10^3/uL (0.0-0.8); NEUTROPHILS # 5.2 10^3/uL (1.8-7.7); NEUTROPHILS % 87.6 % (36.0-66.0); PLATELET COUNT, AUTOMATED 106 10^3/uL (150-450); WHITE BLOOD COUNT 5.9 10^3/uL (4.0-10.0)
[2018-03-12 02:09] LABS: INFLUENZA A AMPLIFICATION NEGATIVE (NEGATIVE); INFLUENZA B AMPLIFICATION NEGATIVE (NEGATIVE)
[2018-03-12 02:45] LABS: ALT/SGPT 53 U/L (12-78); BILIRUBIN,DIRECT 0.3 MG/DL (0.0-0.2); BILIRUBIN,TOTAL 0.5 MG/DL (0.2-1.0); BLOOD UREA NITROGEN 8 MG/DL (7-18); CALCIUM LEVEL 8.4 MG/DL (8.5-10.1); CARBON DIOXIDE LEVEL 23 MEQ/L (21-32); CHLORIDE LEVEL 103 MEQ/L (98-107); CREATININE FOR GFR 0.56 MG/DL (0.70-1.30); ETHYL ALCOHOL (ETHANOL) 0.309 % (0.000-0.010); GLOMERULAR FILTRATION RATE > 60.0 (>56); GLUCOSE, FASTING 108 MG/DL (70-100); LIPASE 157 U/L (73-393); POTASSIUM SERUM 4.1 MEQ/L (3.5-5.1); SODIUM LEVEL 141 MEQ/L (136-145); TOTAL PROTEIN 7.4 GM/DL (6.4-8.2)
--- NOTE | 2018-03-12 02:49 | REP ---
Clinical: Cough and dyspnea . Comparison: 02/08/2018 . Findings: The mediastinum and cardiac silhouette are stable and within normal limits for portable technique. The lung garcia demonstrate chronic interstitial change and subtle right basilar atelectasis cannot be excluded. No effusion. No pneumothorax. Skeletal structures are intact. Impression: Initial view suggests the possibility of subtle right basilar atelectasis which may be improved with inspiration. Electronically Signed by Flex Forrest MD 03/12/2018 02:40 A
[2018-03-12 03:30] VITALS: BP 130/75
[2018-03-12] MEDS ORDERED: PRED20TA PO (04:13)
--- NOTE | 2018-03-12 14:48 | ECGEPIP ---
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
== END 2018-03-12 04:23 | disposition home or self-care (01) ==
LOC: M ED 00:05
DX: J44.9 Chronic obstructive pulmonary disease, unspecified (principal); F17.210 Nicotine dependence, cigarettes, uncomplicated
CPT/HCPCS: 71045; 80048; 80076; 82803; 83690; 85025; 87040; 87502; 93005; 93041; 94760; 96374; 99285; G0480; J2930

== ENCOUNTER 2018-04-07 09:50 | Emergency (ER) | payer OTHER ==
[~2018-04-07] VITALS: Ht 180.3 cm; Wt 70.5 kg
[2018-04-07] MEDS ORDERED: VENTAER (10:10)
[2018-04-07 11:30] LABS: INFLUENZA A AMPLIFICATION NEGATIVE (NEGATIVE); INFLUENZA B AMPLIFICATION NEGATIVE (NEGATIVE)
--- NOTE | 2018-04-07 11:31 | REP ---
CHEST, TWO VIEWS: There is no evidence of acute infiltrate. No pleural effusion is seen. The heart is normal in size. The mediastinal silhouette is unremarkable. The visualized osseous structures are intact. IMPRESSION: No acute pulmonary disease. Electronically Signed by Stalin Anderson MD 04/07/2018 07:23 P
[2018-04-07 11:45] VITALS: BP 128/73
[2018-04-07] MEDS ORDERED: predniSONE 20 MG TAB PO ONE (11:45)
[2018-04-07] MEDS ORDERED: PRED10TA2 PO (12:01)
== END 2018-04-07 12:09 | disposition home or self-care (01) ==
LOC: EDBD 09:50 → M ED 09:50
DX: J44.1 Chronic obstructive pulmonary disease with (acute) exacerbation (principal); I11.0 Hypertensive heart disease with heart failure; I50.9 Heart failure, unspecified; K21.9 Gastro-esophageal reflux disease without esophagitis; F10.10 Alcohol abuse, uncomplicated; Z99.81 Dependence on supplemental oxygen; Z87.891 Personal history of nicotine dependence; Z91.040 Latex allergy status; J30.2 Other seasonal allergic rhinitis; Z79.899 Other long term (current) drug therapy; Z79.51 Long term (current) use of inhaled steroids; Z79.82 Long term (current) use of aspirin

== ENCOUNTER 2018-05-05 21:34 | Inpatient (IN) | payer OTHER ==
[~2018-05-05] VITALS: Ht 180.3 cm; Wt 63.9 kg
[2018-05-05] MEDS ORDERED: IPRATROPIUM 0.5MG/ALBUTEROL 2.5MG INH SOL UD 3ML (DUONEB)(J7620) NEB ONE (22:15)
[2018-05-05 22:23] LABS: VENOUS BASE EXCESS 7.1 (-2.0-2.0); VENOUS HCO3 30.9 MEQ/L (23.0-27.0); VENOUS O2 SATURATION 91.6 % (60.0-80.0); VENOUS PARTIAL PRESSURE CO2 40.3 mmHg (38.0-50.0); VENOUS PH 7.502 UNITS (7.330-7.430); VENOUS STANDARD HCO3 30.8 MEQ/L; VENOUS TOTAL CO2 32.1 MEQ/L (24.0-28.0)
[2018-05-05 22:24] LABS: BASO # 0.1 10^3/uL (0.0-0.2); BASO % 0.6 % (0.0-1.0); EOS # 0.1 10^3/uL (0.0-0.50); EOS % 0.8 % (0.0-3.0); HEMOGLOBIN 12.9 g/dl (13.5-17.5); LYMPH # 0.9 10^3/uL (1.5-4.5); LYMPH % 11.5 % (24.0-44.0); MEAN CORPUSCULAR HEMOGLOBIN 31.8 pg (27.0-33.0); MEAN CORPUSCULAR HGB CONC 34.9 g/dl (32.0-36.5); MEAN CORPUSCULAR VOLUME 91.1 fl (80.0-96.0); MONO # 0.6 10^3/uL (0.0-0.8); MONO % 7.5 % (0.0-5.0); NEUTROPHILS # 6.3 10^3/uL (1.8-7.7); PLATELET COUNT, AUTOMATED 154 10^3/uL (150-450); RED BLOOD COUNT 4.06 10^6/uL (4.30-6.10)
[2018-05-05] MEDS ORDERED: ACETAMINOPHEN 325 MG TAB PO ONE (22:30)
[2018-05-05 22:49] LABS: BLOOD UREA NITROGEN 6 MG/DL (7-18); CALCIUM LEVEL 8.4 MG/DL (8.5-10.1); CARBON DIOXIDE LEVEL 32 MEQ/L (21-32); CHLORIDE LEVEL 86 MEQ/L (98-107); CK-MB VALUE MASS < 1.0 NG/ML (<3.6); CPK CREATINE PHOSPHOKINASE 36 U/L (39-308); CREATININE FOR GFR 0.62 MG/DL (0.70-1.30); GLOMERULAR FILTRATION RATE > 60.0 (>56); GLUCOSE, FASTING 113 MG/DL (70-100); MB/CK RELATIVE INDEX 2.78 (< OR =4); POTASSIUM SERUM 2.8 MEQ/L (3.5-5.1); SODIUM LEVEL 130 MEQ/L (136-145); TROPONIN I < 0.02 NG/ML (< 0.10)
[2018-05-05 22:52] LABS: INFLUENZA A AMPLIFICATION POSITIVE (NEGATIVE); INFLUENZA B AMPLIFICATION NEGATIVE (NEGATIVE)
[2018-05-05] MEDS ORDERED: KCL 10MEQ/100ML SWI (KRUN) 10 MEQ in APPROPRIATE DILUENT 1 EA IV ONE ×4 (23:00)
[2018-05-05] MEDS ORDERED: POTASSIUM CHLORIDE 10 MEQ SR TABLET PO ONE (23:00)
[2018-05-06] MEDS ORDERED: AZITHROMYCIN 250 MG TAB PO ONE (00:15)
[2018-05-06] MEDS ORDERED: hydrOXYzine 25 MG TAB PO PRN (00:30)
[2018-05-06] MEDS ORDERED: NALTREXONE 50 MG TAB PO PRN (00:30)
[2018-05-06] MEDS ORDERED: POLYVINYL ALCOHOL OPHTH SOLN 15 ML(LIQUITEARS) OU PRN (00:30)
[2018-05-06] MEDS ORDERED: ALBUTEROL 90 MCG/ACT 8GM HFA INHALER INH PRN (00:30)
--- NOTE | 2018-05-06 01:43 | HPEPDOC ---
[facility] Medical History & Physical Date of Admission May 05, 2018 Attending Physician: MOY MCGEE DO History and Physical CHIEF COMPLAINT: Shortness of breath HISTORY OF PRESENT ILLNESS: Patient is a 53 year old male with a past medical history significant for COPD, hypertension, alcoholism, depression, and GERD who presented to the [facility] ER with complaint of shortness of breath. Patient states that a few days ago he developed a worsening cough and felt tired. He denied any fevers at the time but stated that he got chills. He denies any nausea or vomiting but states that he lost his appetite. He denies any increased sputum production. He states that his shortness of breath has continued to worsen and he has felt more tired today which prompted him to come to the ER. At the ER the patient was found to have a slight fever of 100.6. He was not found to have an elevated WBC. He received a chest X-ray in the ER which was not impressive or suggestive of a pneumonia or COPD exacerbation. A rapid flu was performed and the patient tested positive for influenza type A. Hospitalist service was then contacted and the patient was admitted for further evaluation and management PAST MEDICAL HISTORY: 1. COPD on 3L Nocturnal Oxygen 2. Alcoholic 3-4 vodka drinks a day 3. Hypertension 4. 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 Tobacco Abuse 6. GERD 7. Depression PAST SURGICAL HISTORY: None SOCIAL HISTORY: Patient lives alone. He is a long time smoker since the age of 12. Currently smokes 1/2 pack per day. He admits to alcohol use drinking 3-4 vodka drinks per day. Patient has had alcohol withdrawal in the past but denies a history of alcohol withdrawal seizures FAMILY HISTORY: Noncontributory ALLERGIES: Please see below. REVIEW OF SYSTEMS: CONSTITUTIONAL: Admits to chills. Denies fevers. Denies unintentional weight loss or weigh gain HEENT: Admits to cough and congestion. Denies sore throat CARDIOVASCULAR: Denies chest pain. Denies palpitations or feelings of the heart racing RESPIRATORY: Admits to worsening shortness of breath. Admits to cough. Denies increased sputum production GASTROINTESTINAL: Admits to occasional nausea. Denies vomiting. Denies constipation or diarrhea. Denies abdominal pain GENITOURINARY: Denies dysuria, increased urgency or frequency SKIN: Denies rashes or lesions NEUROLOGICAL: Denies changes in speech or gait PSYCHIATRIC: Admits to depression. Denies anxiety ENDOCRINE: Denies heat intolerance. Denies cold intolerance HEMATOLOGIC/LYMPHATIC: Denies easy bruising or bleeding HOME MEDICATIONS: Please see below. PHYSICAL EXAMINATION: VITAL SIGNS: Temperature 100.6, pulse 92, respiratory rate 20, blood pressure 122/74, pulse oximetry 100% on room air. GENERAL APPEARANCE: Patient is awake, alert, and oriented. He is lying in bed comfortably. He does not appear in acute distress. He is cooperative and co nversive HEENT: Atraumatic normocephalic. Eyes are non-icteric. Trachea is midline. Nares are patent. NC in place. Dentition is poor. Mucous membranes are pink and moist CARDIOVASCULAR: Normal S1 and S2. Regular rate and Rhythm. No clicks, rubs, or murmurs LUNGS: Scattered wheezing throughout. Rhonchi bilaterally. No crackles. Good respiratory effort. Patient is coughing during exam. No accessory muscle use ABDOMEN: Soft, non-distended, nontender to palpation of all 4 quadrants. Positive bowel sounds EXTREMITIES: 2+ posterior tibial pulses bilaterally. 2+ radial pulses bilaterally. No edema NEUROLOGICAL: No focal neurological deficits noted PSYCHIATRIC: Mood and affect appear appropriate LABORATORY DATA: See below. IMAGING: Chest x-ray negative for any acute pulmonary disease MICROBIOLOGY: Please see below. ASSESSMENT and PLAN 1. COPD exacerbation 2/2 Influenza -Patient has tested positive for Influenza type A. He has noted increased SOB over the past few days. He does have a fever. He does not have an elevated WBC at this point in time. -Tamiflu 75mg BID for Influenza -Azithromycin 500 once. 250 daily for 5 days for COPD exacerbation -Prednisone 30mg PO -Duonebs prn -Continue home COPD inhalers -Incentive spirometry 2. Alcohol Abuse -Patient has extensive alcohol use history. He will be started on serax protocol. -Alcoholic seizure precautions -CIWA score -Thiamine and folic acid 3. Tobacco Abuse -Nicotine patch 14mg daily 4. Depression -Continue home Cymbalta 5. DVT prophylaxis -Lovenox 40mg SC daily Vital Signs Vital Signs Date Time Temp Pulse Resp B/P (MAP) Pulse Ox O2 Delivery O2 Flow Rate FiO2 05/05/18 21:47 100.6 92 20 122/74 (90) 100 Room Air Laboratory Data Labs 24H Laboratory Tests 2 05/05/18 22:06: Immature Granulocyte % (Auto) 0.6, White Blood Count 8.0, Red Blood Count 4.06L, Hemoglobin 12.9L, Hematocrit 37.0L, Mean Corpuscular Volume 91.1, Mean Corpuscular Hemoglobin 31.8, Mean Corpuscular Hemoglobin Concent 34.9, Red Cell Distribution Width 11.9, Platelet Count 154, Neutrophils (%) (Auto) 79.0H, Lymphocytes (%) (Auto) 11.5L, Monocytes (%) (Auto) 7.5H, Eosinophils (%) (Auto) 0.8, Basophils (%) (Auto) 0.6, Neutrophils # (Auto) 6.3, Lymphocytes # (Auto) 0.9L, Monocytes # (Auto) 0.6, Eosinophils # (Auto) 0.1, Basophils # (Auto) 0.1, Nucleated Red Blood Cells % (auto) 0.0, Blood Gas Bicarbonate Standard 30.8, Venous Blood pH 7.502H, Venous Blood Partial Pressure CO2 40.3, Venous Blood Partial Pressure O2 61.0H, Venous Blood Total Carbon Dioxide 32.1H, Venous Blood HCO3 30.9H, Venous Blood Oxygen Saturation 91.6H, Venous Blood Base Excess 7.1H, Anion Gap 12, Glomerular Filtration Rate > 60.0, Blood Urea Nitrogen 6L, Creatinine 0.62L, Sodium Level 130L, Potassium Level 2.8*L, Chloride Level 86L, Carbon Dioxide Level 32, Calcium Level 8.4L, Total Creatine Kinase 36L, Creatine Kinase MB < 1.0, Creatine Kinase MB Relative Index 2.78, Troponin I < 0.02 05/05/18 22:15: Influenza Type A (RT-PCR) POSITIVEH, Influenza Type B (RT-PCR) NEGATIVE CBC/BMP Laboratory Tests 05/05/18 22:06 Red Blood Count 4.06 L, Mean Corpuscular Volume 91.1, Mean Corpuscular Hemoglobin 31.8, Mean Corpuscular Hemoglobin Concent 34.9, Red Cell Distribution Width 11.9, Neutrophils (%) (Auto) 79.0 H, Lymphocytes (%) (Auto) 11.5 L, Monocytes (%) (Auto) 7.5 H, Eosinophils (%) (Auto) 0.8, Basophils (%) (Auto) 0.6, Neutrophils # (Auto) 6.3, Lymphocytes # (Auto) 0.9 L, Monocytes # (Auto) 0.6, Eosinophils # (Auto) 0.1, Basophils # (Auto) 0.1, Calcium Level 8.4 L, Total Creatine Kinase 36 L Microbiology Microbiology 05/05/18 Blood Culture, Received Pending Home Medications Scheduled (Incruse Ellipta) 62.5 Mcg/Inh Inh, 1 PUFF INH DAILY (Aspirin) 81 Mg Chw, 81 MG PO DAILY Buspirone HCl (Buspirone HCl) 15 Mg Tab, 15 MG PO BID Carvedilol (Carvedilol) 12.5 Mg Tab, 12.5 MG PO BID Citalopram Hydrobromide (Citalopram) 40 Mg Tab, 40 MG PO DAILY Cyanocobalamin (Vitamin B12) 1,000 Mcg Tab, 1,000 MCG PO DAILY Folic Acid (Folic Acid) 1 Mg Tab, 1 MG PO DAILY Levocetirizine Hydrochloride (Levocetirizine Dihydrochl) 5 Mg Tab, 5 MG PO DAILY Magnesium Oxide (Magnesium Oxide 400) 400 Mg Tab, 400 MG PO DAILY Montelukast Sodium (Singulair) 10 Mg Tab, 10 MG PO DAILY Pantoprazole Sodium (Pantoprazole Sodium) 40 Mg Tab, 40 MG PO DAILY Salmeterol/Fluticasone (Advair Diskus 500-50 Mcg/Dose) 28 Puff/Inhaler Aerp, 1 PUFF INH BID Thiamine HCl (Vitamin B-1) 50 Mg Tab, 100 MG PO DAILY Scheduled PRN (Nasacort Allergy 24Hr) 55 Mcg/Act Spr, 1 SPRAY NA BID PRN for ALLERGY SYMPTOMS Acetaminophen (Tylenol Extra Strength) 500 Mg Tab, 1,000 MG PO Q6H PRN for PAIN Albuterol Sulfate (Ventolin Hfa) 108 Mcg/Act Aer, 2 PUFFS INH Q4H PRN for SHORTNESS OF BREATH Albuterol/Ipratropium (Ipratropium Morton/Albut 0.5-2.5 (3) mg/3Ml) 1 Sen Sen, 1 SEN INH Q4H PRN for SOB/WHEEZING Artificial Tears (Artificial Tears) 1.4 % Sen, 2 DROP OU QID PRN for DRY EYES Hydroxyzine HCl (Hydroxyzine HCl) 25 Mg Tab, 25 MG PO TID PRN for ITCHING Naltrexone HCl (Naltrexone HCl) 50 Mg Tab, 50 MG PO BID PRN for CRAVING Trazodone HCl (Trazodone HCl) 50 Mg Tab, 50 MG PO QHS PRN for SLEEP Allergies Coded Allergies: Latex (Verified Allergy, Intermediate, HIVES, EDMA, 04/07/18) SEASONAL ALLERGIES (Verified Allergy, Unknown, 04/07/18) GME ATTESTATION GME ATTESTATION My faculty preceptor for this patient encounter was physically present during the encounter and was fully available. All aspects of the patient interview, examination, medical decision making process, and medical care plan development were reviewed and approved by the faculty preceptor. The faculty preceptor is aware and concurs with the plan as stated in the body of this note and will attest to such by his/her cosignature. GAMA LENTZ DO May 06, 2018 01:43 DALILA WISDOM MD May 06, 2018 18:49
[2018-05-06] MEDS: NS 1,000 ML IV SCH ×2 (01:57→14:15)
[2018-05-06] MEDS: CARVedilol 12.5 MG TAB PO SCH ×3 (01:59→21:54)
[2018-05-06] MEDS: OSELTAMIVIR PHOSPHATE 75 MG CAP (TAMIFLU) PO SCH ×3 (03:00→21:53)
[2018-05-06] MEDS: OXAZEPAM 15 MG CAP PO SCH ×4 (03:01→21:53)
[2018-05-06] MEDS: busPIRone 5 MG TAB PO SCH ×3 (03:01→21:53)
[2018-05-06 07:23] LABS: BASO % 0.3 % (0.0-1.0); HEMATOCRIT 35.1 % (42.0-52.0); HEMOGLOBIN 12.3 g/dl (13.5-17.5); LYMPH # 0.3 10^3/uL (1.5-4.5); MEAN CORPUSCULAR HEMOGLOBIN 31.6 pg (27.0-33.0); MEAN CORPUSCULAR VOLUME 90.2 fl (80.0-96.0); MONO # 0.1 10^3/uL (0.0-0.8); MONO % 2.1 % (0.0-5.0); NEUTROPHILS # 5.7 10^3/uL (1.8-7.7); NEUTROPHILS % 92.3 % (36.0-66.0); PLATELET COUNT, AUTOMATED 147 10^3/uL (150-450); RED BLOOD COUNT 3.89 10^6/uL (4.30-6.10); WHITE BLOOD COUNT 6.1 10^3/uL (4.0-10.0)
[2018-05-06 07:58] LABS: BLOOD UREA NITROGEN 7 MG/DL (7-18); CALCIUM LEVEL 8.2 MG/DL (8.5-10.1); CARBON DIOXIDE LEVEL 31 MEQ/L (21-32); CHLORIDE LEVEL 89 MEQ/L (98-107); CREATININE FOR GFR 0.59 MG/DL (0.70-1.30); GLOMERULAR FILTRATION RATE > 60.0 (>56); GLUCOSE, FASTING 166 MG/DL (70-100); POTASSIUM SERUM 4.1 MEQ/L (3.5-5.1); SODIUM LEVEL 130 MEQ/L (136-145)
[2018-05-06 08:05] LABS: LYMPH % 4.6 % (24.0-44.0)
--- NOTE | 2018-05-06 08:18 | REP ---
Portable chest, single AP sitting view, 10:20 p.m.: Comparison is 04/07/2018. The lung garcia are clear. The cardiac size is normal. The radha, mediastinum, and skeletal structures are unremarkable. Impression: Negative portable chest. There is no interval change. Electronically Signed by Stalin Pantoja MD 05/06/2018 08:09 A
[2018-05-06] MEDS: ADVAIR HFA 230/21MCG INHALER INH SCH ×2 (08:31→20:35)
[2018-05-06] MEDS: CYANOCOBALAMIN 500 MCG TAB PO SCH (09:54)
[2018-05-06] MEDS: MAGNESIUM OXIDE 400 MG TAB (MAG-OX) PO SCH (09:54)
[2018-05-06] MEDS: predniSONE 10 MG TAB PO SCH (09:55)
[2018-05-06] MEDS: ASPIRIN 81 MG ENTERIC TAB PO SCH (09:55)
[2018-05-06] MEDS: MONTELUKAST 10 MG TAB PO SCH (09:55)
[2018-05-06] MEDS: FOLIC ACID 1 MG TAB PO SCH (09:55)
[2018-05-06] MEDS: THIAMINE 100 MG TAB PO SCH (09:55)
[2018-05-06] MEDS: ENOXAPARIN 40 MG/0.4 ML SYRINGE (J1650) SC SCH (09:56)
[2018-05-06] MEDS: NICOTINE 14 MG/24 HR TRANSDERMAL TD SCH (09:56)
[2018-05-06] MEDS: CitaloPRAM (CeleXA) 20 MG TAB PO SCH (09:56)
[2018-05-06] MEDS: PANTOPRAZOLE 40MG TAB (PROTONIX) PO SCH (10:14)
[2018-05-06] MEDS: IPRATROPIUM 0.5MG/ALBUTEROL 2.5MG INH SOL UD 3ML (DUONEB)(J7620) NEB PRN ×3 (12:26→23:49)
[2018-05-06] MEDS: ONDANSETRON 4MG/2ML VIAL (J2405) IV PRN (12:55)
[2018-05-06 13:58] VITALS: BP 142/91
[2018-05-06 20:00] VITALS: BP 144/93
--- NOTE | 2018-05-06 21:01 | ECGEPIP ---
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
[2018-05-06] MEDS: ACETAMINOPHEN TAB 650MG DOSE (2X325MG) PO PRN (21:53)
[2018-05-06] MEDS: AZITHROMYCIN 250 MG TAB PO SCH (21:53)
[2018-05-07] MEDS: NS 1,000 ML IV SCH ×2 (03:06→14:21)
[2018-05-07 04:00] VITALS: BP 124/75
[2018-05-07] MEDS: IPRATROPIUM 0.5MG/ALBUTEROL 2.5MG INH SOL UD 3ML (DUONEB)(J7620) NEB PRN ×5 (04:29→23:33)
[2018-05-07] MEDS: OXAZEPAM 15 MG CAP PO SCH ×3 (06:05→20:56)
[2018-05-07] MEDS: ACETAMINOPHEN TAB 650MG DOSE (2X325MG) PO PRN (06:13)
[2018-05-07 06:26] VITALS: BP 144/75
[2018-05-07 07:19] LABS: BASO % 0.3 % (0.0-1.0); EOS % 0.1 % (0.0-3.0); HEMATOCRIT 34.1 % (42.0-52.0); HEMOGLOBIN 11.8 g/dl (13.5-17.5); LYMPH # 1.2 10^3/uL (1.5-4.5); LYMPH % 14.4 % (24.0-44.0); MEAN CORPUSCULAR HEMOGLOBIN 32.1 pg (27.0-33.0); MEAN CORPUSCULAR HGB CONC 34.6 g/dl (32.0-36.5); MEAN CORPUSCULAR VOLUME 92.7 fl (80.0-96.0); MONO # 0.5 10^3/uL (0.0-0.8); MONO % 5.8 % (0.0-5.0); NEUTROPHILS # 6.3 10^3/uL (1.8-7.7); NEUTROPHILS % 78.8 % (36.0-66.0); PLATELET COUNT, AUTOMATED 150 10^3/uL (150-450); RED BLOOD COUNT 3.68 10^6/uL (4.30-6.10)
[2018-05-07] MEDS: ADVAIR HFA 230/21MCG INHALER INH SCH ×2 (08:44→19:53)
[2018-05-07] MEDS: OSELTAMIVIR PHOSPHATE 75 MG CAP (TAMIFLU) PO SCH ×2 (08:52→20:56)
[2018-05-07] MEDS: ENOXAPARIN 40 MG/0.4 ML SYRINGE (J1650) SC SCH (08:52)
[2018-05-07] MEDS: ASPIRIN 81 MG ENTERIC TAB PO SCH (08:52)
[2018-05-07] MEDS: busPIRone 5 MG TAB PO SCH ×2 (08:52→20:57)
[2018-05-07] MEDS: MONTELUKAST 10 MG TAB PO SCH (08:52)
[2018-05-07] MEDS: THIAMINE 100 MG TAB PO SCH (08:52)
[2018-05-07] MEDS: CitaloPRAM (CeleXA) 20 MG TAB PO SCH (08:52)
[2018-05-07] MEDS: PANTOPRAZOLE 40MG TAB (PROTONIX) PO SCH (08:52)
[2018-05-07] MEDS: CYANOCOBALAMIN 500 MCG TAB PO SCH (08:53)
[2018-05-07] MEDS: MAGNESIUM OXIDE 400 MG TAB (MAG-OX) PO SCH (08:53)
[2018-05-07] MEDS: predniSONE 10 MG TAB PO SCH (08:53)
[2018-05-07] MEDS: CARVedilol 12.5 MG TAB PO SCH ×2 (08:53→20:56)
[2018-05-07] MEDS: FOLIC ACID 1 MG TAB PO SCH (08:54)
[2018-05-07] MEDS: NICOTINE 14 MG/24 HR TRANSDERMAL TD SCH (08:55)
[2018-05-07 09:00] LABS: BLOOD UREA NITROGEN 8 MG/DL (7-18); CALCIUM LEVEL 7.9 MG/DL (8.5-10.1); CARBON DIOXIDE LEVEL 31 MEQ/L (21-32); CHLORIDE LEVEL 96 MEQ/L (98-107); CREATININE FOR GFR 0.51 MG/DL (0.70-1.30); GLOMERULAR FILTRATION RATE > 60.0 (>56); GLUCOSE, FASTING 93 MG/DL (70-100); POTASSIUM SERUM 3.1 MEQ/L (3.5-5.1); SODIUM LEVEL 134 MEQ/L (136-145)
[2018-05-07 10:00] VITALS: BP 126/64
[2018-05-07] MEDS ORDERED: POTASSIUM CHLORIDE 10 MEQ SR TABLET PO ONE (10:00)
--- NOTE | 2018-05-07 10:02 | IPNPDOC ---
Subjective Date Seen The patient was seen on 05/07/18. Subjective Chief Complaint/HPI Pt this morning reports he feels is breathing is very tight. Slightly better than on admission, but not where he feels it should be. He is coughing some. He has no other concerns. Transciptions from 05/06 not yet transcribed. General: Denies: Fatigue Constitutional: Denies: Chills, Fever ENT: Denies: Head Aches Pulmonary: Reports: Dyspnea, Cough Cardiovascular: Denies: Chest Pain, Palpitations Gastrointestinal: Denies: Nausea, Vomiting, Diarrhea Neurological: Denies: Weakness Psych: Reports: Mood Normal Objective Physical Examination General Exam: Positive: Alert, Cooperative, No Acute Distress Chest Exam: Positive: Wheezing (end exp wheeze), Diminished (no dyspnea with conversation noted.); Negative: Clear to auscultation (coarse BS), Rales, Rhonchi Heart Exam: Positive: Rate Normal, Regular Rhythm, Normal S1, Normal S2 Abdomen Exam: Positive: Normal bowel sounds, Soft, Tenderness Extremity Exam: Negative: Edema Neuro Exam: Positive: Normal Speech Psych Exam: Positive: Mental status NL Assessment /Plan Problems (1) COPD exacerbation Status: Acute Response to Treatment: Stable Discussed With: Nurse, Patient Problem Specific Plan: Monitor Clinically, Repeat Labs Problem Text: Pt on prednisone, will give depomedrol 80 mg IM x1 today. Anticipate d/c home tomorrow. Cont with Duonebs (2) Influenza Status: Acute Problem Specific Plan: Monitor Clinically, Repeat Labs Problem Text: Afebrile for > 24 hours, cont with tamiflu D2, H & P notes that this was positive in the ED, although I don't see record of this. (3) Alcohol dependence Status: Chronic Response to Treatment: Stable Problem Text: Serax protocol available Plan/VTE VTE Prophylaxis Ordered?: Yes VS, I&O, 24H, Fishbone Vital Signs/I&O Vital Signs Date Time Temp Pulse Resp B/P (MAP) Pulse Ox O2 Delivery O2 Flow Rate FiO2 05/07/18 08:53 74 144/75 05/07/18 04:00 98.8 18 96 3.0 05/06/18 13:48 Nasal Cannula I&O- Last 24 Hours up to 6 AM 05/07/18 06:00 Intake Total 2825 ml Output Total 175 ml Balance 2650 ml Laboratory Data 24H LABS Laboratory Tests 2 05/07/18 06:55: Immature Granulocyte % (Auto) 0.6, White Blood Count 8.0, Red Blood Count 3.68L, Hemoglobin 11.8L, Hematocrit 34.1L, Mean Corpuscular Volume 92.7, Mean Corpuscular Hemoglobin 32.1, Mean Corpuscular Hemoglobin Concent 34.6, Red Cell Distribution Width 12.0, Platelet Count 150, Neutrophils (%) (Auto) 78.8H, Lymphocytes (%) (Auto) 14.4L, Monocytes (%) (Auto) 5.8H, Eosinophils (%) (Auto) 0.1, Basophils (%) (Auto) 0.3, Neutrophils # (Auto) 6.3, Lymphocytes # (Auto) 1.2L, Monocytes # (Auto) 0.5, Eosinophils # (Auto) 0.0, Basophils # (Auto) 0.0, Nucleated Red Blood Cells % (auto) 0.0, Anion Gap 7L, Glomerular Filtration Rate > 60.0, Blood Urea Nitrogen 8, Creatinine 0.51L, Sodium Level 134L, Potassium Level 3.1#L, Chloride Level 96L, Carbon Dioxide Level 31, Calcium Level 7.9L CBC/BMP Laboratory Tests 05/07/18 06:55 Red Blood Count 3.68 L, Mean Corpuscular Volume 92.7, Mean Corpuscular Hemoglobin 32.1, Mean Corpuscular Hemoglobin Concent 34.6, Red Cell Distribution Width 12.0, Neutrophils (%) (Auto) 78.8 H, Lymphocytes (%) (Auto) 14.4 L, Monocytes (%) (Auto) 5.8 H, Eosinophils (%) (Auto) 0.1, Basophils (%) (Auto) 0.3, Neutrophils # (Auto) 6.3, Lymphocytes # (Auto) 1.2 L, Monocytes # (Auto) 0.5, Eosinophils # (Auto) 0.0, Basophils # (Auto) 0.0, Calcium Level 7.9 L Microbiology Microbiology 05/06/18 Blood Culture - Preliminary, Resulted No growth after 24 hours . All specim... 05/05/18 Blood Culture - Preliminary, Resulted No growth after 24 hours . All specim... 05/06/18 MRSA Screen, Received Pending REBECCA WRIGHT PA-C May 07, 2018 10:01
[2018-05-07] MEDS ORDERED: methylPREDNISolone 80MG/ML SUSP 1ML VIAL (J1040) IM ONE (11:00)
--- NOTE | 2018-05-07 12:07 | IPN ---
DATE: 05/06/2018 Mr. Jonathan hinton was admitted overnight with chronic obstructive pulmonary disease (COPD) exacerbation secondary to acute influenza A. One year ago, the patient had been hospitalized with influenza B. He was hospitalized a month ago with COPD exacerbation and has been in and out of the hospital. He is well-known to our group mostly for his chronic lung disease patient and alcoholic. He has had some sweats but does not think that he has had much in the way of temperature. He has been raising a lot of white phlegm during the past week. He gets very anxious when he is short of breath.. Fortunately, he is in a better living situation than he had been. He had previously been living in or near a warehouse that his family owns, but this was than a less than desirable situation with inadequate heat, a lot of dust and molds. He is now in [facility] on [facility]. He reports that he has lot of difficulty getting around, not just short of breath but also weak. He is using a wheelchair or a cane. If he goes to the grocery store he uses their motorized conveyance, he is taking the buses, but this is largely because he does not have the resources to afford insurance or gasoline for his car. He was having some diarrhea at home and this has cleared up. He is not having any back pain or chest pain. CURRENT MEDICATIONS: He is getting azithromycin. I ordered some Zofran for this morning. He is on Lovenox, nicotine patch, 30 mg of prednisone daily, cyanocobalamin, folic acid, magnesium oxide, Singulair, Protonix, Advair HFA, thiamine, aspirin, Celexa, albuterol, hydroxyzine, which he has as needed for itching. He also has trazodone as needed for sleep, naltrexone as needed for craving. His oxazepam scheduled every 8 hours, Tamiflu, BuSpar and Coreg. PHYSICAL EXAMINATION: On examination, his temperature is 98.8, yesterday afternoon it was 99.5, blood pressure 142/91, pulse 75, respirations 20, oxygen saturation on 3 liters is 96%. He is alert, oriented, pleasant and cooperative. He is very slightly tremulous. He does not appear particularly anxious at this time. He is speaking in complete sentences, does not have any audible wheezing. His eyes are clear. Speech is clear. No neck masses, tenderness or adenopathy. No carotid bruits. Lungs show diminished breath sounds with increased expiratory phase and some wheezes at bases. Heart has regular rhythm without any murmur, click or gallop. His heart sounds are diminished. Abdomen is soft and nontender. There is no edema. LABORATORIES: Labs done today showed a hemoglobin of 12.3, WBCs 6100, potassium is 4.1, it had been 2.8 yesterday, glucose was 166, calcium 8.2. As mentioned, the influenza A was positive. Chest x-ray was showing clear lung sounds without any interval change. ASSESSMENT: 1. Acute influenza A. 2. Exacerbation of chronic obstructive pulmonary disease. 3. History of alcohol abuse. 4. History of tobacco abuse. 5. Depression. 6. Deep vein thrombosis (DVT) prophylaxis. PLAN: He will be treated with Tamiflu and bronchodilators. He has by mouth prednisone. We will be covering him for alcohol withdrawal with the Serax, given some Zofran for nausea. He is getting a nicotine patch. He is continued on his usual home medications. Getting Lovenox for deep vein thrombosis (DVT) prophylaxis. The possibility that given how he looks today that he could be discharged tomorrow, but we will wait and see. I should note that he had received a flu shot as he did last year where he had influenza B, but I indicated to him that if someone gets the flu and has had the shot that usually they have a milder case than they would have had if they had not had the immunization. ROBYN
[2018-05-07 14:00] VITALS: BP 148/86
[2018-05-07 17:59] VITALS: BP 141/79
[2018-05-07 20:00] VITALS: BP 150/91
[2018-05-07] MEDS: AZITHROMYCIN 250 MG TAB PO SCH (20:56)
[2018-05-08] VITALS (19 sets, daily range): BP systolic 84–170; BP diastolic 40–107; O2SAT 99
[2018-05-08 01:13] LABS: ABG BASE EXCESS 2.6 (-2.0-2.0); ABG HCO3 26.2 MEQ/L (22.0-26.0); ABG O2 SATURATION 86.5 % (95.0-99.0); ABG PARTIAL PRESSURE CO2 36.9 mmHg (35.0-45.0); ABG PARTIAL PRESSURE O2 51.3 mmHg (75.0-100.0); ABG STANDARD HCO3 26.6 MEQ/L (22.0-26.0); ABG TOTAL CO2 27.3 MEQ/L (22.0-29.0); ABG pH (ARTERIAL) 7.469 UNITS (7.350-7.450)
[2018-05-08] MEDS ORDERED: methylPREDNISolone INJ 125 MG/2 ML VIAL (J2930) IV ONE (01:15)
[2018-05-08] MEDS ORDERED: ISOVUE-370 76% 100ML VIAL (Q9967) As Ordered ONE (01:18)
[2018-05-08] MEDS ORDERED: EPINEPHrine INJ 1 MG/ML 1ML AMP IM STA (01:38)
[2018-05-08] MEDS ORDERED: NS 1,000 ML IV ONE (01:45)
[2018-05-08] MEDS: diphenhydrAMINE INJ 50MG/ML VIAL (J1200) IV SCH ×5 (01:53→21:06)
[2018-05-08] MEDS: FAMOTIDINE IV BAG 20 MG in APPROPRIATE DILUENT 1 EA IV SCH ×2 (01:55→13:49)
--- NOTE | 2018-05-08 01:57 | IPNPDOC ---
Date Seen The patient was seen on 05/08/18. Progress Note A Rapid Assessment was called on the patient at 1230 for decreased oxygen saturation and shortness of breath. I assessed the patient at bedside. He had oxygen saturations of 80% on 3L NC. He denies any chest pain at the time. ABG and portable chest were ordered. CT angio when patient is stable. He is currently receiving lovenox 40mg BID. Patient received 125 mg IV solumedoral. Patient is on the Family Medicine service. Dr. Yoon was contacted by nursing and stated that he would be coming in. Care will be deferred to Family Medicine team. OBJECTIVE On PE patient was awake, alert and oriented. He lung exam demonstrated rhonci bilaterally. I did not appreciate much wheezing. He complains of LABORATORY DATA, IMAGING STUDIES, MICROBIOLOGY: Please see below. ASSESSMENT and PLAN 1. Hypoxia 2/2 COPD exacerbation vs pneumonia vs PE vs angioedema secondary to medication -Chest x-ray pending. History of COPD and admission with Flu. Pneumonia is high on differential -Patient will receive a chest x-ray and CT angio when stabilized. He had previously been saturating in the 90's on 3L and just recently decreased to 80%. He denies any pleuritic symptoms and has been on Lovenox BID. A PE is unlikely at this point however, given his acute decrease in O2 sats a CT angio is ordered for when he is stabilized -Patient did complain of some swelling and hives after medications. He was g iven 125 mg IV solumederol. He may be having an allergic reaction to medication -Patient is a Family Medicine Patient. Further care is deferred to Family Medicine VS, I&O, 24H, Anastacia Vital Signs/I&O Vital Signs Date Time Temp Pulse Resp B/P (MAP) Pulse Ox O2 Delivery O2 Flow Rate FiO2 05/08/18 01:00 97 05/08/18 00:30 99.3 82 20 84/40 (55) 3.0 05/06/18 13:48 Nasal Cannula I&O- Last 24 Hours up to 6 AM 05/08/18 06:00 Intake Total 1980 ml Output Total 2000 ml Balance -20 ml Laboratory Data 24H LABS Laboratory Tests 2 05/07/18 06:55: Immature Granulocyte % (Auto) 0.6, White Blood Count 8.0, Red Blood Count 3.68L, Hemoglobin 11.8L, Hematocrit 34.1L, Mean Corpuscular Volume 92.7, Mean Corpuscular Hemoglobin 32.1, Mean Corpuscular Hemoglobin Concent 34.6, Red Cell Distribution Width 12.0, Platelet Count 150, Neutrophils (%) (Auto) 78.8H, Lymphocytes (%) (Auto) 14.4L, Monocytes (%) (Auto) 5.8H, Eosinophils (%) (Auto) 0.1, Basophils (%) (Auto) 0.3, Neutrophils # (Auto) 6.3, Lymphocytes # (Auto) 1.2L, Monocytes # (Auto) 0.5, Eosinophils # (Auto) 0.0, Basophils # (Auto) 0.0, Nucleated Red Blood Cells % (auto) 0.0, Anion Gap 7L, Glomerular Filtration Rate > 60.0, Blood Urea Nitrogen 8, Creatinine 0.51L, Sodium Level 134L, Potassium Level 3.1#L, Chloride Level 96L, Carbon Dioxide Level 31, Calcium Level 7.9L 05/08/18 01:00: Blood Gas Bicarbonate Standard 26.6H, Arterial Blood pH 7.469H, Arterial Blood Partial Pressure CO2 36.9, Arterial Blood Partial Pressure O2 51.3L, Arterial Blood Total CO2 27.3, Arterial Blood HCO3 26.2H, Arterial Blood Base Excess 2.6H, Arterial Blood Oxygen Saturation 86.5L CBC/BMP Laboratory Tests 05/07/18 06:55 Red Blood Count 3.68 L, Mean Corpuscular Volume 92.7, Mean Corpuscular Hemoglobin 32.1, Mean Corpuscular Hemoglobin Concent 34.6, Red Cell Distribution Width 12.0, Neutrophils (%) (Auto) 78.8 H, Lymphocytes (%) (Auto) 14.4 L, Monocytes (%) (Auto) 5.8 H, Eosinophils (%) (Auto) 0.1, Basophils (%) (Auto) 0.3, Neutrophils # (Auto) 6.3, Lymphocytes # (Auto) 1.2 L, Monocytes # (Auto) 0.5, Eosinophils # (Auto) 0.0, Basophils # (Auto) 0.0, Calcium Level 7.9 L Microbiology Microbiology 05/06/18 Blood Culture - Preliminary, Resulted No growth after 24 hours . All specim... 05/05/18 Blood Culture - Preliminary, Resulted No Growth after 48 hours. All Specime... 05/06/18 MRSA Screen, Received Pending GME ATTESTATION GME ATTESTATION My faculty preceptor for this patient encounter was physically present during the encounter and was fully available. All aspects of the patient interview, examination, medical decision making process, and medical care plan development were reviewed and approved by the faculty preceptor. The faculty preceptor is aware and concurs with the plan as stated in the body of this note and will att est to such by his/her cosignature. GAMA LENTZ DO May 08, 2018 01:57
--- NOTE | 2018-05-08 02:00 | REP ---
Clinical: Shortness of breath . Comparison: 05/05/2018 . Findings: The mediastinum and cardiac silhouette are stable and within normal limits for portable technique. The lung garcia are clear without acute consolidation, effusion, or pneumothorax. Skeletal structures are intact. Impression: No acute cardiopulmonary process appreciated. Electronically Signed by Flex Forrest MD 05/08/2018 01:51 A
[2018-05-08 02:01] LABS: HEMATOCRIT 36.9 % (42.0-52.0); HEMOGLOBIN 12.5 g/dl (13.5-17.5); MEAN CORPUSCULAR HEMOGLOBIN 32.2 pg (27.0-33.0); MEAN CORPUSCULAR HGB CONC 33.9 g/dl (32.0-36.5); MEAN CORPUSCULAR VOLUME 95.1 fl (80.0-96.0); PLATELET COUNT, AUTOMATED 157 10^3/uL (150-450); RED BLOOD COUNT 3.88 10^6/uL (4.30-6.10); WHITE BLOOD COUNT 5.3 10^3/uL (4.0-10.0)
[2018-05-08] MEDS ORDERED: IPRATROPIUM 0.5MG/ALBUTEROL 2.5MG INH SOL UD 3ML (DUONEB)(J7620) NEB ONE (02:30)
[2018-05-08 02:37] LABS: BLOOD UREA NITROGEN 8 MG/DL (7-18); CALCIUM LEVEL 7.4 MG/DL (8.5-10.1); CARBON DIOXIDE LEVEL 29 MEQ/L (21-32); CHLORIDE LEVEL 100 MEQ/L (98-107); GLOMERULAR FILTRATION RATE > 60.0 (>56); GLUCOSE, FASTING 178 MG/DL (70-100); POTASSIUM SERUM 3.9 MEQ/L (3.5-5.1); SODIUM LEVEL 136 MEQ/L (136-145)
[2018-05-08] MEDS: IPRATROPIUM 0.5MG/ALBUTEROL 2.5MG INH SOL UD 3ML (DUONEB)(J7620) NEB SCH ×5 (03:34→20:00)
[2018-05-08] MEDS: OXAZEPAM 15 MG CAP PO SCH ×3 (05:00→21:06)
[2018-05-08 05:04] LABS: BASO % 0.1 % (0.0-1.0); HEMATOCRIT 35.6 % (42.0-52.0); HEMOGLOBIN 12.3 g/dl (13.5-17.5); LYMPH # 0.6 10^3/uL (1.5-4.5); LYMPH % 8.1 % (24.0-44.0); MEAN CORPUSCULAR HEMOGLOBIN 31.7 pg (27.0-33.0); MEAN CORPUSCULAR HGB CONC 34.6 g/dl (32.0-36.5); MEAN CORPUSCULAR VOLUME 91.8 fl (80.0-96.0); MONO # 0.3 10^3/uL (0.0-0.8); MONO % 4.3 % (0.0-5.0); NEUTROPHILS # 6.6 10^3/uL (1.8-7.7); NEUTROPHILS % 86.7 % (36.0-66.0); PLATELET COUNT, AUTOMATED 171 10^3/uL (150-450); RED BLOOD COUNT 3.88 10^6/uL (4.30-6.10); WHITE BLOOD COUNT 7.6 10^3/uL (4.0-10.0)
[2018-05-08 05:31] LABS: BLOOD UREA NITROGEN 7 MG/DL (7-18); CALCIUM LEVEL 7.4 MG/DL (8.5-10.1); CARBON DIOXIDE LEVEL 28 MEQ/L (21-32); CHLORIDE LEVEL 100 MEQ/L (98-107); CREATININE FOR GFR 0.47 MG/DL (0.70-1.30); GLOMERULAR FILTRATION RATE > 60.0 (>56); GLUCOSE, FASTING 142 MG/DL (70-100); POTASSIUM SERUM 3.8 MEQ/L (3.5-5.1); SODIUM LEVEL 134 MEQ/L (136-145)
[2018-05-08] MEDS: ADVAIR HFA 230/21MCG INHALER INH SCH ×2 (08:00→20:15)
--- NOTE | 2018-05-08 08:20 | CR ---
DATE OF CONSULTATION: 05/08/2018 The patient is a 53-year-old male with a past medical history of chronic obstructive pulmonary artery disease (COPD) on nocturnal oxygen, hypertension, alcoholism, congestive heart failure (CHF), depression and gastroesophageal reflux disease (GERD) who presented to [facility] with increasing shortness of breath on 05/05/2018. Patient initially on presentation had complained of increasing cough and shortness of breath. In the emergency department (ED) he was febrile. His x-ray did not show any evidence of acute infiltrate or opacity. His rapid flu was positive and the patient was positive for influenza A. He was admitted for COPD exacerbation secondary to influenza and for treatment. The patient was started on Tamiflu and azithromycin for his COPD as well as prednisone 30 mg by mouth. Given his history of alcohol use he was also started on a Serax protocol. Overnight on 05/08/2018 around 12:30 a.m. patient was noted to have increasing shortness of breath and desaturation on his usual 3 liters nasal cannula. The patient also started developing swelling around his eyes and on his upper lip as well as complaining of itchy sensation and feeling like his throat was closing. The patient also had hives on his back. The patient had noted to desaturate down to 71% on his nasal cannula and he also became hypotensive. His blood pressures dropped to 84/40 where previously he had been hypertensive with a blood pressure of 150/90s. During this he was placed on a non-rebreather for his oxygen saturation and started on normal saline IV fluid bolus. The patient was also given Solu-Medrol IV push of 125 mg, patient was also given famotidine, 50 mg of Benadryl. Pulmonary was consulted given the concern for a angioedema. Based on presentation there was concern for anaphylaxis and the patient was also given epinephrine IM injection 0.3 mg. Upon reassessment approximately 30 minutes later his edema in his face had significantly improved. He did not have any further lip swelling. His shortness of breath had also improved and his saturations had improved back to his baseline on the 3 liters nasal cannula. The patient's blood pressure had also improved at that time. He had no rashes as well. On exam the patient did continue to have some diffuse wheezing bilaterally so he was ordered for an additional treatment of DuoNebs. Upon further questioning patient reports that he had angioedema in the past. The last time was in the summer when he noticed swelling of his lips and his face. He went to the ED and was treated then. There was concern that maybe one of his blood pressure medications was causing the angioedema, suspect that he may have been on an ROMULO inhibitor as it was discontinued after that. There was also concern that he had a peach prior to this which was not washed and that may have contributed as well to this reaction. He denies any known food allergies, however. He did have fish and cottage cheese with fruit for dinner which he has had in the past and had not had any issues with it. Patient did receive his evening medications prior to this episode, he was given Tamiflu, azithromycin, Serax, BuSpar, and carvedilol. Most of those medications were home medications except for the Tamiflu, the Serax and the azithromycin. He had previously received azithromycin as an outpatient without any adverse reactions. The Tamiflu is thought to have been the new medication which potentially could have triggered this reaction, however both azithromycin and Tamiflu were discontinued. PAST MEDICAL HISTORY: 1. Chronic obstructive pulmonary artery disease (COPD) on 3 liters nocturnal oxygen and as needed. 2. History of alcohol abuse. 3. Hypertension. 4. Heart failure with preserved ejection fraction (EF). 5. Tobacco abuse. 6. Gastroesophageal reflux disease (GERD). 7. Depression. PAST SURGICAL HISTORY: None. SOCIAL HISTORY: The patient lives alone. He is a current smoker of a half pack per day, has been smoking since the age of 12. Patient also drinks about three to four vodka drinks daily. Has a history of alcohol withdrawal in the past, but denies history of alcohol withdrawal seizures. ALLERGIES: The patient previously has a history of a LATEX and SEASONAL ALLERGIES. Denies any food allergies. Will add ROMULO INHIBITOR to his medication allergies HOME MEDICATIONS: Include: aspirin, buspirone, carvedilol, citalopram, vitamin B12, folic acid, levocetirizine, magnesium oxide, Singulair, pantoprazole, Advair and thiamine, trazodone as needed, naltrexone as needed, hydroxyzine as needed, DuoNebs as needed. PHYSICAL EXAMINATION: Temperature is 99.3, blood pressure was 170/101, O2 sat improved to 97% on his 3 liters nasal cannula. General: The patient is a thin male who is sitting in bed, does not appear to be in any acute respiratory distress at this time. He is not using any accessory muscles of respiration. HEENT: He is normocephalic, atraumatic. The patient has some very slight residual periorbital edema, however, it has significantly improved as per the patient. His lip swelling and also improved. He has no tongue swelling noted and his uvula is clearly seen and there does not appear to be a pharyngeal edema. Neck is supple. Trachea is midline. There is no stridor auscultated on exam Cardiovascular: Regular rate and rhythm. Normal S1-S2. No murmurs auscultated. Somewhat distant breath sounds. Pulmonary: Diffuse wheezes with occasional rhonchi. Breath sounds bilaterally. No crackles noted. Abdomen is soft, nontender, nondistended. Extremities: There is no lower extremity edema noted. There are no rashes noted and no hives. LABORATORY DATA: WBC 5.3, hemoglobin 12.5, platelets 157. Chemistry - sodium is 136, potassium 3.9, chloride 100, bicarb 29, BUN 8, creatinine 0.6, glucose 178. ABG drawn during this pH was 7.469, pCO2 of 36.9, pO2 of 51.3. Chest x-ray done shows hyperinflation, no focal opacities or infiltrates. No pleural effusions. IMPRESSION: Patient is a 53-year-old male with a past medical history of COPD, alcohol abuse, hypertension, gastroesophageal reflux disease and depression who presented initially with shortness of breath likely due to an acute COPD exacerbation in the setting of influenza A. He was admitted and started on Tamiflu and azithromycin for his influenza and COPD exacerbation respectively. He was also on prednisone 30 mg and DuoNebs. Earlier in this morning the patient was started complaining of increasing shortness of breath. He was also noted to be desaturating on his usual nasal cannula and hypotensive. The patient had also started having periorbital swelling and lip swelling and hives. Given the clinical presentation, the patient was having an acute anaphylactic reaction. He had already received Solu-Medrol, Benadryl and famotidine. He was then given an epinephrine IM 0.3 mg. His symptoms started to improve and his blood pressure responded and his saturations improved to his baseline. Patient on exam currently does not have any acute respiratory distress. He does not have any stridor, no evidence of any airway compromise due to any edema. He was admitted to the intensive care unit (ICU) for further observation. We will continue monitoring in the ICU for potential biphasic anaphylactic response. If patient is noted to have any desaturation, increasing shortness of breath, hypotension or any new rashes, hives or edema would give another dose of epinephrine IM 0.3 mg Can continue with steroids. He has diffuse wheezing noted on exam currently apparently earlier in the day he did not have any significant wheezing. Therefore would increase his steroids to Solu-Medrol with 60 mg every 8 hours and change his DuoNebs to standing. Continue his home medications. He is on Advair and Incruse. The Incruse is on hold while he is here, but this can continue the Advair. Continue with H1 and H2 blockers with famotidine and Benadryl for the next 12 hours. Can likely discontinue after that time. Would discontinue azithromycin and discontinue Tamiflu for now as there is concern that the patient had the anaphylactic reaction most likely to the Tamiflu as the azithromycin is not a new medication. We will also add ROMULO inhibitor to his allergy list given his history of likely angioedema secondary to ROMULO inhibitor. Will continue with the Serax protocol as per primary team, but we will monitor after his next dose of Serax in case patient had a reaction to that medication, although less likely. Continue with nasal cannula supplementation at 3 liters at night and as needed. Deep venous thrombosis (DVT) prophylaxis with Lovenox. Full code. Total critical care time spent 1 hour and 30 minutes. MTDD
--- NOTE | 2018-05-08 09:00 | IPNPDOC ---
Subjective Date Seen The patient was seen on 05/08/18. Subjective Chief Complaint/HPI Pt last night developed sudden worsening in his breathing with increased O2 demands. He was transferred to the ICU for mgmt for concerns of angioedema. Given IV solumedrol 125. His breathing has stabilized and his sats have returned to previous. He reports that he is feeling much better this morning but he is very tired. He states that his cough is also better this morning. General: Reports: Fatigue Constitutional: Denies: Chills, Fever Pulmonary: Reports: Dyspnea, Cough Cardiovascular: Denies: Chest Pain, Palpitations Gastrointestinal: Denies: Nausea, Vomiting, Diarrhea Musculoskeletal: Denies: Neck Pain Neurological: Denies: Weakness Psych: Reports: Mood Normal Objective Physical Examination General Exam: Positive: Alert, Cooperative, No Acute Distress ENT Exam: Positive: Mucous membr. moist/pink Chest Exam: Positive: Wheezing (end exp wheeze), Diminished; Negative: Clear to auscultation (coarse BS), Rales, Rhonchi Heart Exam: Positive: Rate Normal, Regular Rhythm, Normal S1, Normal S2 Abdomen Exam: Positive: Normal bowel sounds, Soft, Tenderness Extremity Exam: Negative: Edema Neuro Exam: Positive: Normal Speech Psych Exam: Positive: Mental status NL Assessment /Plan Assessment CDT -- agree with below plan, except to clarify that patient was NOT taking ACEI during this hospitalization. Within the last year, he had a similar episode that was either felt to be secondary to fruit that he ate, vs reaction to ACEI. This medication, though not administered in months, was formally added to his allergy list last night. Patient looks comfortable while seen in the ICU. Probably should be assessed by allergy/immunology upon DC, to help determine which medications he may be truly allergic to. Problems (1) Anaphylaxis Status: Acute Response to Treatment: Improving Discussed With: Patient Problem Specific Plan: Consult Specialist, Monitor Clinically, Repeat Labs Problem Text: Pt admitted [place] from [place], appears like to be from tamiflu has also be taking ACEi, and Azithromycin, all have been d/c'd. Monitor for further reactions. Cont with SM, H1 and H2 blockers (can d/c these tonight). (2) Angioedema Problem Text: See above. (3) COPD exacerbation Status: Acute Response to Treatment: Stable Discussed With: Nurse, Patient Problem Specific Plan: Monitor Clinically, Repeat Labs Problem Text: 05/08 Pt rec IV solumedrol 125 mg overnight, now on SM 60 IV q8h, Pulm/Leather Roller following. Resp status improved. Sats stable on 3 L. Afebrile. Cont with nebs. 05/07 Pt on prednisone, will give depomedrol 80 mg IM x1 today. Anticipate d/c home tomorrow. Cont with Duonebs (4) Influenza Status: Acute Problem Specific Plan: Monitor Clinically, Repeat Labs Problem Text: 05/08 Tamiflu d/c d/t concerns of angioedema. 05/07 Afebrile for > 24 hours, cont with tamiflu D2, H & P notes that this was positive in the ED, although I don't see record of this. (5) Alcohol dependence Status: Chronic Response to Treatment: Stable Problem Text: Serax protocol available Plan/VTE VTE Prophylaxis Ordered?: Yes VS, I&O, 24H, Fishbone Vital Signs/I&O Vital Signs Date Time Temp Pulse Resp B/P (MAP) Pulse Ox O2 Delivery O2 Flow Rate FiO2 05/08/18 06:00 61 18 144/87 (106) 94 3.0 05/08/18 04:00 98.3 05/08/18 03:35 Nasal Cannula I&O- Last 24 Hours up to 6 AM 05/08/18 06:00 Intake Total 2080 ml Output Total 2550 ml Balance -470 ml Laboratory Data 24H LABS Laboratory Tests 2 05/08/18 01:00: Blood Gas Bicarbonate Standard 26.6H, Arterial Blood pH 7.469H, Arterial Blood Partial Pressure CO2 36.9, Arterial Blood Partial Pressure O2 51.3L, Arterial Blood Total CO2 27.3, Arterial Blood HCO3 26.2H, Arterial Blood Base Excess 2.6H, Arterial Blood Oxygen Saturation 86.5L 05/08/18 01:55: Nucleated Red Blood Cells % (auto) 0.0, Anion Gap 7L, Glomerular Filtration Rate > 60.0, Blood Urea Nitrogen 8, Creatinine 0.60L, Sodium Level 136, Potassium Level 3.9#, Chloride Level 100, Carbon Dioxide Level 29, Calcium Level 7.4L 05/08/18 04:51: Nucleated Red Blood Cells % (auto) 0.0, Anion Gap 6L, Glomerular Filtration Rate > 60.0, Blood Urea Nitrogen 7, Creatinine 0.47L, Sodium Level 134L, Potassium Level 3.8, Chloride Level 100, Carbon Dioxide Level 28, Calcium Level 7.4L, Immature Granulocyte % (Auto) 0.8, White Blood Count 7.6, Red Blood Count 3.88L, Hemoglobin 12.3L, Hematocrit 35.6L, Mean Corpuscular Volume 91.8, Mean Corpuscular Hemoglobin 31.7, Mean Corpuscular Hemoglobin Concent 34.6, Red Cell Distribution Width 12.2, Platelet Count 171, Neutrophils (%) (Auto) 86.7H, Lymphocytes (%) (Auto) 8.1L, Monocytes (%) (Auto) 4.3, Eosinophils (%) (Auto) 0.0, Basophils (%) (Auto) 0.1, Neutrophils # (Auto) 6.6, Lymphocytes # (Auto) 0.6L, Monocytes # (Auto) 0.3, Eosinophils # (Auto) 0.0, Basophils # (Auto) 0.0 CBC/BMP Laboratory Tests 05/08/18 01:55 Red Blood Count 3.88 L, Mean Corpuscular Volume 95.1, Mean Corpuscular Hemoglobin 32.2, Mean Corpuscular Hemoglobin Concent 33.9, Red Cell Distribution Width 12.3, Calcium Level 7.4 L 05/08/18 04:51 Red Blood Count 3.88 L, Mean Corpuscular Volume 91.8, Mean Corpuscular Hemoglobin 31.7, Mean Corpuscular Hemoglobin Concent 34.6, Red Cell Distribution Width 12.2, Calcium Level 7.4 L, Neutrophils (%) (Auto) 86.7 H, Lymphocytes (%) (Auto) 8.1 L, Monocytes (%) (Auto) 4.3, Eosinophils (%) (Auto) 0.0, Basophils (%) (Auto) 0.1, Neutrophils # (Auto) 6.6, Lymphocytes # (Auto) 0.6 L, Monocytes # (Auto) 0.3, Eosinophils # (Auto) 0.0, Basophils # (Auto) 0.0 Microbiology Microbiology 05/06/18 Blood Culture - Preliminary, Resulted No Growth after 48 hours. All Specime... 05/05/18 Blood Culture - Preliminary, Resulted No Growth after 48 hours. All Specime... 05/06/18 MRSA Screen, Received Pending REBECCA WRIGHT PA-C May 08, 2018 09:00 MOY MCGEE DO May 09, 2018 01:40
[2018-05-08] MEDS: methylPREDNISolone INJ 125 MG/2 ML VIAL (J2930) IV SCH ×2 (09:28→18:30)
[2018-05-08] MEDS: busPIRone 5 MG TAB PO SCH ×2 (09:31→21:06)
[2018-05-08] MEDS: THIAMINE 100 MG TAB PO SCH (09:32)
[2018-05-08] MEDS: MONTELUKAST 10 MG TAB PO SCH (09:32)
[2018-05-08] MEDS: CYANOCOBALAMIN 500 MCG TAB PO SCH (09:33)
[2018-05-08] MEDS: CARVedilol 12.5 MG TAB PO SCH ×2 (09:33→21:06)
[2018-05-08] MEDS: FOLIC ACID 1 MG TAB PO SCH (09:33)
[2018-05-08] MEDS: ASPIRIN 81 MG ENTERIC TAB PO SCH (09:33)
[2018-05-08] MEDS: CitaloPRAM (CeleXA) 20 MG TAB PO SCH (09:34)
[2018-05-08] MEDS: PANTOPRAZOLE 40MG TAB (PROTONIX) PO SCH (09:34)
[2018-05-08] MEDS: MAGNESIUM OXIDE 400 MG TAB (MAG-OX) PO SCH (09:34)
[2018-05-08] MEDS: ENOXAPARIN 40 MG/0.4 ML SYRINGE (J1650) SC SCH (09:37)
[2018-05-08] MEDS: NICOTINE 14 MG/24 HR TRANSDERMAL TD SCH (09:42)
[2018-05-08] MEDS ORDERED: HYDROCORTISONE 100 MG/2 ML VIAL (J1720) IV SCH (12:00)
--- NOTE | 2018-05-08 19:42 | IPN ---
DATE: 05/08/2018 I was paged at 12:50 this morning by Jimmie Iyer. Mr. Dontae Castillo had become unstable. He developed acute swelling of his eyelids and upper lip and was having respiratory distress. His oxygen saturation was 71%. His blood pressure was 80/40. I advised that we call a rapid response team while I drove in from home. I arrived at 1:30 am. The patient was on high flow oxygen and Oxygen saturation was up to 97% but he was complaining of dyspnea. He said that he did itching in the back of his throat but no tongue swelling. He said he had developmental swelling of his upper lip and eyelids this evening. He has had no past history of this. He is not on an ROMULO inhibitor. The only new medicine is azithromycin and Tamiflu. PHYSICAL EXAMINATION: Blood pressure 84/50, Oxygen saturation 71% up to 90% with high flow Oxygen. GENERAL APPEARANCE: He is alert and conversant. He does not have any stridor. His speech is normal. His upper lids are both edematous. His upper lip is swollen. His tongue is not swollen. His voice is not husky. He has expiratory wheezes in all garcia and was tachypneic. Heart, regular rate and rhythm. Abdomen is soft and nontender and no masses. No peripheral edema. I did not see any hives on his back but he felt his back was itchy. Neither hand was swollen. He has a STAT ABG ordered 7.46/36/51/85% on specific oxygenation. IMPRESSION: Acute angioedema probably from Tamiflu. This is rare but a reported side effect from the medication. PLAN: Patient has been transferred to the ICU. I have ordered a bolus of saline, epinephrine 0.3 mg IM STAT, IV hydrocortisone 100 mg IV every 12 , IV Pepcid 20 mg IV every 12 hours, IV Benadryl 50 mg IV every 6 hours. I have discussed the case with Dr. Corona the men's and boys' clothing salesperson and she has been consulted. Patient is being transferred to ICU pending bed movement.
[2018-05-09] VITALS (7 sets, daily range): BP systolic 126–162; BP diastolic 79–97
[2018-05-09] MEDS: IPRATROPIUM 0.5MG/ALBUTEROL 2.5MG INH SOL UD 3ML (DUONEB)(J7620) NEB SCH ×6 (00:19→20:00)
[2018-05-09] MEDS: FAMOTIDINE IV BAG 20 MG in APPROPRIATE DILUENT 1 EA IV SCH (02:00)
[2018-05-09] MEDS: methylPREDNISolone INJ 125 MG/2 ML VIAL (J2930) IV SCH (02:00)
[2018-05-09 05:28] LABS: HEMATOCRIT 36.8 % (42.0-52.0); HEMOGLOBIN 12.6 g/dl (13.5-17.5); LYMPH # 0.8 10^3/uL (1.5-4.5); LYMPH % 11.3 % (24.0-44.0); MEAN CORPUSCULAR HEMOGLOBIN 32.1 pg (27.0-33.0); MEAN CORPUSCULAR HGB CONC 34.2 g/dl (32.0-36.5); MEAN CORPUSCULAR VOLUME 93.6 fl (80.0-96.0); MONO # 0.6 10^3/uL (0.0-0.8); MONO % 8.1 % (0.0-5.0); NEUTROPHILS # 5.6 10^3/uL (1.8-7.7); PLATELET COUNT, AUTOMATED 176 10^3/uL (150-450); RED BLOOD COUNT 3.93 10^6/uL (4.30-6.10)
[2018-05-09 05:35] LABS: BLOOD UREA NITROGEN 10 MG/DL (7-18); CALCIUM LEVEL 7.6 MG/DL (8.5-10.1); CARBON DIOXIDE LEVEL 28 MEQ/L (21-32); CHLORIDE LEVEL 97 MEQ/L (98-107); CREATININE FOR GFR 0.67 MG/DL (0.70-1.30); GLOMERULAR FILTRATION RATE > 60.0 (>56); GLUCOSE, FASTING 217 MG/DL (70-100); POTASSIUM SERUM 3.8 MEQ/L (3.5-5.1); SODIUM LEVEL 133 MEQ/L (136-145)
[2018-05-09] MEDS: OXAZEPAM 15 MG CAP PO SCH ×3 (06:00→21:53)
[2018-05-09] MEDS: ADVAIR HFA 230/21MCG INHALER INH SCH ×2 (08:01→21:55)
[2018-05-09] MEDS: NICOTINE 14 MG/24 HR TRANSDERMAL TD SCH (09:41)
[2018-05-09] MEDS: CARVedilol 12.5 MG TAB PO SCH ×2 (09:42→21:54)
[2018-05-09] MEDS: CYANOCOBALAMIN 500 MCG TAB PO SCH (09:42)
[2018-05-09] MEDS: MAGNESIUM OXIDE 400 MG TAB (MAG-OX) PO SCH (09:42)
[2018-05-09] MEDS: busPIRone 5 MG TAB PO SCH ×2 (09:42→21:53)
[2018-05-09] MEDS: ENOXAPARIN 40 MG/0.4 ML SYRINGE (J1650) SC SCH (09:42)
[2018-05-09] MEDS: FOLIC ACID 1 MG TAB PO SCH (09:42)
[2018-05-09] MEDS: ASPIRIN 81 MG ENTERIC TAB PO SCH (09:42)
[2018-05-09] MEDS: THIAMINE 100 MG TAB PO SCH (09:43)
[2018-05-09] MEDS: MONTELUKAST 10 MG TAB PO SCH (09:43)
[2018-05-09] MEDS: CitaloPRAM (CeleXA) 20 MG TAB PO SCH (09:43)
[2018-05-09] MEDS: predniSONE 50 MG TAB PO SCH (09:43)
[2018-05-09] MEDS: PANTOPRAZOLE 40MG TAB (PROTONIX) PO SCH (09:43)
--- NOTE | 2018-05-09 10:04 | IPNPDOC ---
Subjective Date Seen The patient was seen on 05/09/18. Subjective Chief Complaint/HPI Patient lying comfortably in bed as I entered the room. He reports to be feeling much better, breathing has improved Constitutional: Denies: Chills, Fever Pulmonary: Reports: Cough; Denies: Dyspnea, Pleuritic Chest Pain Gastrointestinal: Denies: Nausea, Vomiting, Abdominal Pain Psych: Reports: Mood Normal Objective Physical Examination General Exam: Positive: Alert, Cooperative, No Acute Distress ENT Exam: Positive: Mucous membr. moist/pink Chest Exam: Positive: Diminished; Negative: Clear to auscultation (coarse BS), Rales, Rhonchi, Wheezing Heart Exam: Positive: Rate Normal, Regular Rhythm, Normal S1, Normal S2 Abdomen Exam: Positive: Normal bowel sounds, Soft, Tenderness Extremity Exam: Negative: Edema Neuro Exam: Positive: Normal Speech Psych Exam: Positive: Mental status NL Assessment /Plan Problems (1) Anaphylaxis Status: Resolved Response to Treatment: Improving Discussed With: Patient Problem Specific Plan: Consult Specialist, Monitor Clinically, Repeat Labs Problem Text: 05/09/18: Resolved. Patient much improved. Dr. Corona continues to follow. Patient is being transitioned from Solumedrol to oral prednisone. If patient tolerates without worsening of symptoms and continued improvement he may be able to be discharged tomorrow. Patient will be transferred to med-surg floor today Pt admitted to ICU from [place], appears like to be from [facility] has also be taking ACEi, and Azithromycin, all have been d/c'd. Monitor for further reactions. Cont with SM, H1 and H2 blockers (can d/c these tonight). (2) Angioedema Problem Text: See above. (3) COPD exacerbation Status: Acute Response to Treatment: Stable Discussed With: Nurse, Patient Problem Specific Plan: Monitor Clinically, Repeat Labs Problem Text: 05/09/18: Patient is being transitioned from Iv solumedrol to oral Prednisone 50 mg. Continue with nebs. Patient is doing better. Patient is med- surg status. We will d/c tele today. PT to evaluate today. PT requested OT be consulted as well. 05/08 Pt rec IV solumedrol 125 mg overnight, now on SM 60 IV q8h, Pulm/Soapstoner following. Resp status improved. Sats stable on 3 L. Af ebrile. Cont with nebs. 05/07 Pt on prednisone, will give depomedrol 80 mg IM x1 today. Anticipate d/c home tomorrow. Cont with [place] (4) Influenza Status: Acute Problem Specific Plan: Monitor Clinically, Repeat Labs Problem Text: 05/08 Tamiflu d/c d/t concerns of angioedema. 05/07 Afebrile for > 24 hours, cont with tamiflu D2, H & P notes that this was positive in the ED, although I don't see record of this. (5) Alcohol dependence Status: Chronic Response to Treatment: Stable Problem Text: Serax protocol available Plan/VTE VTE Prophylaxis Ordered?: Yes (Lovenox) VS, I&O, 24H, Fishbone Vital Signs/I&O Vital Signs Date Time Temp Pulse Resp B/P (MAP) Pulse Ox O2 Delivery O2 Flow Rate FiO2 05/09/18 08:00 98.9 65 16 154/97 (116) 95 05/09/18 04:00 3.0 05/08/18 20:17 Nasal Cannula I&O- Last 24 Hours up to 6 AM 05/09/18 06:00 Intake Total 1420 ml Output Total 1425 ml Balance -5 ml Laboratory Data 24H LABS Laboratory Tests 2 05/09/18 04:58: Immature Granulocyte % (Auto) 0.6, White Blood Count 7.0, Red Blood Count 3.93L, Hemoglobin 12.6L, Hematocrit 36.8L, Mean Corpuscular Volume 93.6, Mean Corpuscular Hemoglobin 32.1, Mean Corpuscular Hemoglobin Concent 34.2, Red Cell Distribution Width 12.3, Platelet Count 176, Neutrophils (%) (Auto) 80.0H, Lymphocytes (%) (Auto) 11.3L, Monocytes (%) (Auto) 8.1H, Eosinophils (%) (Auto) 0.0, Basophils (%) (Auto) 0.0, Neutrophils # (Auto) 5.6, Lymphocytes # (Auto) 0.8L, Monocytes # (Auto) 0.6, Eosinophils # (Auto) 0.0, Basophils # (Auto) 0.0, Nucleated Red Blood Cells % (auto) 0.0, Anion Gap 8, Glomerular Filtration Rate > 60.0, Blood Urea Nitrogen 10, Creatinine 0.67L, Sodium Level 133L, Potassium Level 3.8, Chloride Level 97L, Carbon Dioxide Level 28, Calcium Level 7.6L CBC/BMP Laboratory Tests 05/09/18 04:58 Red Blood Count 3.93 L, Mean Corpuscular Volume 93.6, Mean Corpuscular Hemoglobin 32.1, Mean Corpuscular Hemoglobin Concent 34.2, Red Cell Distribution Width 12.3, Neutrophils (%) (Auto) 80.0 H, Lymphocytes (%) (Auto) 11.3 L, Monocytes (%) (Auto) 8.1 H, Eosinophils (%) (Auto) 0.0, Basophils (%) (Auto) 0.0, Neutrophils # (Auto) 5.6, Lymphocytes # (Auto) 0.8 L, Monocytes # (Auto) 0.6, Eosinophils # (Auto) 0.0, Basophils # (Auto) 0.0, Calcium Level 7.6 L Microbiology Microbiology 05/06/18 Blood Culture - Preliminary, Resulted No Growth after 72 hours. All specime... 05/05/18 Blood Culture - Preliminary, Resulted No Growth after 72 hours. All specime... 05/06/18 MRSA Screen - Final, Complete [facility]ORENZO [facility] May 09, 2018 09:37
--- NOTE | 2018-05-09 11:53 | CCN ---
DATE: 05/09/2018 CRITICAL CARE PROGRESS NOTE: Patient was seen and examined this morning during rounds. He reports his breathing has significantly improved. He denies any significant wheezing. No shortness of breath or chest pain. He has an occasional cough but he is easily able to expectorate and produce mucus. He had no fevers overnight. He had no further episodes of lip swelling, eye swelling, rash or hives. PHYSICAL EXAMINATION: Temperature 98.3, pulse 80, respirations 16, blood pressure 120/80, oxygen saturation 97% on 3 liters nasal cannula. General: Patient is a thin male, sitting in bed, in no acute distress. He is speaking in complete sentences and is not using any accessory muscles of respiration. HEENT: Normocephalic, atraumatic. No edema in his eyes, lips or tongue. Neck is supple. Trachea is midline and he has no stridor auscultated. Cardiovascular: Regular rate and rhythm. Normal S1, S2. Some distant heart sounds. No murmurs appreciated. Pulmonary: No wheezing noted. There are rhonchi bilaterally. Abdomen is soft, nontender, nondistended. Extremities: There is no lower extremity edema noted. There is some mild clubbing in his fingers. There are no rashes or hives noted. LABORATORY DATA: WBC 7.0, hemoglobin 12.6, platelets 176. Chemistry: Sodium 133, potassium 3.8, chloride 97, bicarbonate 28, BUN 10, creatinine 0.67, glucose 217. IMPRESSION: Patient is a 53-year-old male with a past medical history of chronic obstructive pulmonary disease (COPD), alcohol abuse, hypertension, gastroesophageal reflux disease (GERD) and depression, who presented with shortness of breath likely due to an acute COPD exacerbation in the setting of influenza A. Patient was started on Tamiflu and azithromycin for his influenza and COPD exacerbation, respectively. He was also started on prednisone and DuoNebs. On 05/08/2018, early in the morning, patient had complained of increasing shortness of breath. He was also noted to have periorbital swelling and lip swelling and hives. Patient also was desaturating on nasal cannula and hypotensive. Patient likely with an acute anaphylactic reaction, possibly secondary to his medications. He was given Solu-Medrol, Benadryl and famotidine. He was then given epinephrine intramuscular (IM) with improvement in his symptoms. Patient was admitted to the intensive care unit (ICU) for further observation. In the ICU, he has had no further episodes of desaturation, hypotension, no rashes, hives or edema. At this point, would discontinue his Pepcid and Benadryl. Will change his Solu-Medrol to prednisone 50 mg daily for his COPD exacerbation. He will need a prednisone taper for his COPD exacerbation His breathing has improved and he does not have any significant wheezing on exam today. He does have some rhonchi and mucus. Discussed with the patient about pulmonary toilet and mucus clearance. Continue with DuoNebs. Continue with his home medications of Advair, and he will need to restart Incruse once he is discharged. Azithromycin and Tamiflu was discontinued. Tamiflu was added to his potential allergy list. Patient also reports a previous history of angioedema in the summertime, which may have been secondary to an angiotensin-converting enzyme (ROMULO) inhibitor. However, there was also concern that he may have had an allergy and possible anaphylactic reaction after he had eaten some fruit, more specifically a peach, which was not washed. Therefore, as patient has had two episodes would discharge him with an EpiPen and patient was instructed to use the EpiPen if he has any symptoms of angioedema, throat swelling/tightness, increased shortness of breath with hives. Patient may benefit from allergy followup as an outpatient. Patient is on nasal cannula supplementation prior to this admission, which he reportedly uses at night and as needed. Patient currently is saturating well on room air. Unclear if he requires nocturnal oxygen supplementation. He can get followup as an outpatient for testing for nocturnal oximetry. Deep venous thrombosis (DVT) prophylaxis with Lovenox. FULL CODE. Total critical care time spent, not including any procedures, approximately 45 minutes.
[2018-05-09] MEDS: ONDANSETRON 4MG/2ML VIAL (J2405) IV PRN (21:53)
[2018-05-09] MEDS: ACETAMINOPHEN TAB 650MG DOSE (2X325MG) PO PRN (22:03)
[2018-05-10 00:57] VITALS: BP 143/90
[2018-05-10] MEDS: IPRATROPIUM 0.5MG/ALBUTEROL 2.5MG INH SOL UD 3ML (DUONEB)(J7620) NEB SCH ×7 (04:51→23:10)
[2018-05-10] MEDS: OXAZEPAM 15 MG CAP PO SCH ×3 (05:04→21:08)
[2018-05-10 06:00] VITALS: BP 151/98
[2018-05-10 06:27] LABS: BASO % 0.1 % (0.0-1.0); EOS % 0.1 % (0.0-3.0); HEMATOCRIT 35.4 % (42.0-52.0); HEMOGLOBIN 12.5 g/dl (13.5-17.5); LYMPH # 1.6 10^3/uL (1.5-4.5); LYMPH % 19.6 % (24.0-44.0); MEAN CORPUSCULAR HEMOGLOBIN 32.2 pg (27.0-33.0); MEAN CORPUSCULAR HGB CONC 35.3 g/dl (32.0-36.5); MEAN CORPUSCULAR VOLUME 91.2 fl (80.0-96.0); MONO # 0.8 10^3/uL (0.0-0.8); MONO % 9.9 % (0.0-5.0); NEUTROPHILS # 5.7 10^3/uL (1.8-7.7); NEUTROPHILS % 69.5 % (36.0-66.0); PLATELET COUNT, AUTOMATED 200 10^3/uL (150-450); RED BLOOD COUNT 3.88 10^6/uL (4.30-6.10); WHITE BLOOD COUNT 8.3 10^3/uL (4.0-10.0)
[2018-05-10 06:48] LABS: BLOOD UREA NITROGEN 13 MG/DL (7-18); CALCIUM LEVEL 7.8 MG/DL (8.5-10.1); CARBON DIOXIDE LEVEL 29 MEQ/L (21-32); CHLORIDE LEVEL 98 MEQ/L (98-107); GLOMERULAR FILTRATION RATE > 60.0 (>56); GLUCOSE, FASTING 90 MG/DL (70-100); POTASSIUM SERUM 3.4 MEQ/L (3.5-5.1); SODIUM LEVEL 135 MEQ/L (136-145)
[2018-05-10] MEDS: ADVAIR HFA 230/21MCG INHALER INH SCH ×2 (08:08→21:02)
--- NOTE | 2018-05-10 10:20 | IPNPDOC ---
Subjective Date Seen The patient was seen on 05/10/18. Subjective Chief Complaint/HPI Pt reports no new concerns today. Reports feeling well, unsteady when OOB. Breathing stable, slightly better than on admission. General: Reports: Fatigue Constitutional: Denies: Chills, Fever ENT: Denies: Head Aches Pulmonary: Reports: Dyspnea, Cough Cardiovascular: Denies: Chest Pain, Palpitations Gastrointestinal: Denies: Nausea, Vomiting, Diarrhea Neurological: Reports: Weakness Psych: Reports: Mood Normal Objective Physical Examination General Exam: Positive: Alert, Cooperative, No Acute Distress ENT Exam: Positive: Mucous membr. moist/pink Chest Exam: Positive: Wheezing, Diminished; Negative: Clear to auscultation (coarse BS), Rales, Rhonchi Heart Exam: Positive: Rate Normal, Regular Rhythm, Normal S1, Normal S2 Abdomen Exam: Positive: Normal bowel sounds, Soft, Tenderness Extremity Exam: Negative: Edema Neuro Exam: Positive: Normal Speech Psych Exam: Positive: Mental status NL Assessment /Plan Problems (1) COPD exacerbation Status: Acute Response to Treatment: Stable Discussed With: Nurse, Patient Problem Specific Plan: Monitor Clinically, Repeat Labs Problem Text: 05/10 On PO Pred, resp status stable. Await clearance from PT to d/c home. 05/09/18: Patient is being transitioned from Iv solumedrol to oral Prednisone 50 mg. Continue with nebs. Patient is doing better. Patient is med-surg status. We will d/c tele today. PT to evaluate today. PT requested OT be consulted as well. 05/08 Pt rec IV solumedrol 125 mg overnight, now on SM 60 IV q8h, Pulm/Commercial Underwriter following. Resp status improved. Sats stable on 3 L. Afebrile. Cont with nebs. 05/07 Pt on prednisone, will give depomedrol 80 mg IM x1 today. Anticipate d/c home tomorrow. Cont with [facility] (2) Anaphylaxis Status: Resolved Response to Treatment: Improving Discussed With: Patient Problem Specific Plan: Consult Specialist, Monitor Clinically, Repeat Labs Problem Text: 05/09/18: Resolved. Patient much improved. Dr. Corona continues to follow. Patient is being transitioned from Solumedrol to oral prednisone. If patient tolerates without worsening of symptoms and continued improvement he may be able to be discharged tomorrow. Patient will be transferred to med-surg floor today Pt admitted to ICU from [place], appears like to be from tamiflu has also be taking ACEi, and Azithromycin, all have been d/c'd. Monitor for further reactions. Cont with SM, H1 and H2 blockers (can d/c these tonight). (3) Angioedema Status: Resolved Problem Text: See above. (4) Influenza Status: Acute Problem Specific Plan: Monitor Clinically, Repeat Labs Problem Text: 05/08 Tamiflu d/c d/t concerns of angioedema. 05/07 Afebrile for > 24 hours, cont with tamiflu D2, H & P notes that this was positive in the ED, although I don't see record of this. (5) Alcohol dependence Status: Chronic Response to Treatment: Stable Problem Text: Serax protocol available (6) Acute respiratory failure with hypoxia Status: Resolved Response to Treatment: Stable Problem Specific Plan: Consult Specialist, Monitor Clinically Problem Text: Pt with ARF, hypoxic due to anaphylaxis, with angioedema necessitating transfer to ICU for monitoring. Plan/VTE VTE Prophylaxis Ordered?: Yes (Lovenox) [facility]O Vital Signs Date Time Temp Pulse Resp B/P (MAP) Pulse Ox O2 Delivery O2 Flow Rate FiO2 05/10/18 06:00 98.3 65 18 151/98 (115) 96 05/09/18 04:00 3.0 05/08/18 20:17 Nasal Cannula I&O- Last 24 Hours up to 6 AM 05/10/18 06:00 Intake Total 1560 ml Output Total 1325 ml Balance 235 ml Laboratory Data 24H LABS Laboratory Tests 2 05/10/18 06:02: Immature Granulocyte % (Auto) 0.8, White Blood Count 8.3, Red Blood Count 3.88L, Hemoglobin 12.5L, Hematocrit 35.4L, Mean Corpuscular Volume 91.2, Mean Corpuscular Hemoglobin 32.2, Mean Corpuscular Hemoglobin Concent 35.3, Red Cell Distribution Width 12.4, Platelet Count 200, Neutrophils (%) (Auto) 69.5H, Lymphocytes (%) (Auto) 19.6L, Monocytes (%) (Auto) 9.9H, Eosinophils (%) (Auto) 0.1, Basophils (%) (Auto) 0.1, Neutrophils # (Auto) 5.7, Lymphocytes # (Auto) 1.6, Monocytes # (Auto) 0.8, Eosinophils # (Auto) 0.0, Basophils # (Auto) 0.0, Nucleated Red Blood Cells % (auto) 0.0, Anion Gap 8, Glomerular Filtration Rate > 60.0, Blood Urea Nitrogen 13, Creatinine 0.60L, Sodium Level 135L, Potassium Level 3.4L, Chloride Level 98, Carbon Dioxide Level 29, Calcium Level 7.8L CBC/BMP Laboratory Tests 05/10/18 06:02 Red Blood Count 3.88 L, Mean Corpuscular Volume 91.2, Mean Corpuscular Hemoglobin 32.2, Mean Corpuscular Hemoglobin Concent 35.3, Red Cell Distribution Width 12.4, Neutrophils (%) (Auto) 69.5 H, Lymphocytes (%) (Auto) 19.6 L, Monocytes (%) (Auto) 9.9 H, Eosinophils (%) (Auto) 0.1, Basophils (%) (Auto) 0.1, Neutrophils # (Auto) 5.7, Lymphocytes # (Auto) 1.6, Monocytes # (Auto) 0.8, Eosinophils # (Auto) 0.0, Basophils # (Auto) 0.0, Calcium Level 7.8 L Microbiology Microbiology 05/06/18 Blood Culture - Preliminary, Resulted No Growth after 72 hours. All specime... 05/05/18 Blood Culture - Preliminary, Resulted No Growth after 72 hours. All specime... 05/06/18 MRSA Screen - Final, Complete REBECCA WRIGHT PA-C May 10, 2018 10:20
[2018-05-10] MEDS: ASPIRIN 81 MG ENTERIC TAB PO SCH (10:23)
[2018-05-10] MEDS: predniSONE 50 MG TAB PO SCH (10:23)
[2018-05-10] MEDS: PANTOPRAZOLE 40MG TAB (PROTONIX) PO SCH (10:23)
[2018-05-10] MEDS: CitaloPRAM (CeleXA) 20 MG TAB PO SCH (10:24)
[2018-05-10] MEDS: CYANOCOBALAMIN 500 MCG TAB PO SCH (10:24)
[2018-05-10] MEDS: THIAMINE 100 MG TAB PO SCH (10:24)
[2018-05-10] MEDS: FOLIC ACID 1 MG TAB PO SCH (10:24)
[2018-05-10] MEDS: MAGNESIUM OXIDE 400 MG TAB (MAG-OX) PO SCH (10:25)
[2018-05-10] MEDS: MONTELUKAST 10 MG TAB PO SCH (10:25)
[2018-05-10] MEDS: busPIRone 5 MG TAB PO SCH ×2 (10:25→20:43)
[2018-05-10] MEDS: NICOTINE 14 MG/24 HR TRANSDERMAL TD SCH (10:26)
[2018-05-10] MEDS: ENOXAPARIN 40 MG/0.4 ML SYRINGE (J1650) SC SCH (10:26)
[2018-05-10] MEDS: CARVedilol 12.5 MG TAB PO SCH ×2 (10:28→20:43)
[2018-05-10 14:00] VITALS: BP 141/86
[2018-05-10 14:22] VITALS: BP 141/86
[2018-05-10] MEDS: ACETAMINOPHEN TAB 650MG DOSE (2X325MG) PO PRN ×2 (14:29→20:44)
[2018-05-10] MEDS: ONDANSETRON 4MG/2ML VIAL (J2405) IV PRN (20:44)
[2018-05-10 22:00] VITALS: BP 143/73
[2018-05-11] MEDS: IPRATROPIUM 0.5MG/ALBUTEROL 2.5MG INH SOL UD 3ML (DUONEB)(J7620) NEB SCH ×6 (03:49→23:51)
[2018-05-11] MEDS: ONDANSETRON 4MG/2ML VIAL (J2405) IV PRN ×2 (05:39→21:07)
[2018-05-11] MEDS: ACETAMINOPHEN TAB 650MG DOSE (2X325MG) PO PRN ×3 (05:40→21:07)
[2018-05-11 06:00] VITALS: BP 138/93
[2018-05-11 06:22] LABS: BASO % 0.3 % (0.0-1.0); HEMATOCRIT 38.2 % (42.0-52.0); HEMOGLOBIN 13.1 g/dl (13.5-17.5); LYMPH # 1.7 10^3/uL (1.5-4.5); LYMPH % 23.1 % (24.0-44.0); MEAN CORPUSCULAR HEMOGLOBIN 31.6 pg (27.0-33.0); MEAN CORPUSCULAR HGB CONC 34.3 g/dl (32.0-36.5); MEAN CORPUSCULAR VOLUME 92.3 fl (80.0-96.0); MONO # 1.1 10^3/uL (0.0-0.8); NEUTROPHILS # 4.6 10^3/uL (1.8-7.7); NEUTROPHILS % 60.5 % (36.0-66.0); PLATELET COUNT, AUTOMATED 227 10^3/uL (150-450); RED BLOOD COUNT 4.14 10^6/uL (4.30-6.10); WHITE BLOOD COUNT 7.5 10^3/uL (4.0-10.0)
[2018-05-11 06:51] LABS: BLOOD UREA NITROGEN 12 MG/DL (7-18); CALCIUM LEVEL 8.2 MG/DL (8.5-10.1); CARBON DIOXIDE LEVEL 28 MEQ/L (21-32); CHLORIDE LEVEL 98 MEQ/L (98-107); CREATININE FOR GFR 0.62 MG/DL (0.70-1.30); GLOMERULAR FILTRATION RATE > 60.0 (>56); GLUCOSE, FASTING 89 MG/DL (70-100); POTASSIUM SERUM 3.6 MEQ/L (3.5-5.1); SODIUM LEVEL 134 MEQ/L (136-145)
[2018-05-11] MEDS: OXAZEPAM 15 MG CAP PO SCH ×3 (07:13→21:07)
[2018-05-11] MEDS: ADVAIR HFA 230/21MCG INHALER INH SCH ×2 (08:23→20:50)
[2018-05-11] MEDS: NICOTINE 14 MG/24 HR TRANSDERMAL TD SCH (08:45)
[2018-05-11] MEDS: FOLIC ACID 1 MG TAB PO SCH (08:45)
[2018-05-11] MEDS: MONTELUKAST 10 MG TAB PO SCH (08:45)
[2018-05-11] MEDS: CitaloPRAM (CeleXA) 20 MG TAB PO SCH (08:46)
[2018-05-11] MEDS: PANTOPRAZOLE 40MG TAB (PROTONIX) PO SCH (08:46)
[2018-05-11] MEDS: MAGNESIUM OXIDE 400 MG TAB (MAG-OX) PO SCH (08:46)
[2018-05-11] MEDS: busPIRone 5 MG TAB PO SCH ×2 (08:46→21:06)
[2018-05-11] MEDS: THIAMINE 100 MG TAB PO SCH (08:46)
[2018-05-11] MEDS: predniSONE 50 MG TAB PO SCH (08:46)
[2018-05-11] MEDS: ASPIRIN 81 MG ENTERIC TAB PO SCH (08:46)
[2018-05-11] MEDS: CYANOCOBALAMIN 500 MCG TAB PO SCH (08:46)
[2018-05-11] MEDS: CARVedilol 12.5 MG TAB PO SCH ×2 (08:47→21:07)
[2018-05-11] MEDS: ENOXAPARIN 40 MG/0.4 ML SYRINGE (J1650) SC SCH (08:47)
[2018-05-11 09:00] VITALS: BP 142/90
--- NOTE | 2018-05-11 10:31 | IPNPDOC ---
Subjective Date Seen The patient was seen on 05/11/18. Subjective Chief Complaint/HPI Pt reports feeling tired this morning, didn't do well with PT yesterday, slept most of the day yest and awake most of the night. Constitutional: Denies: Chills, Fever Skin: Denies: Rash Pulmonary: Reports: Dyspnea, Cough Cardiovascular: Denies: Chest Pain, Palpitations Gastrointestinal: Denies: Nausea, Vomiting, Diarrhea Neurological: Reports: Weakness Psych: Reports: Mood Normal Objective Physical Examination General Exam: Positive: Alert, Cooperative, No Acute Distress ENT Exam: Positive: Mucous membr. moist/pink Chest Exam: Positive: Wheezing, Diminished; Negative: Clear to auscultation (coarse BS), Rales, Rhonchi Heart Exam: Positive: Rate Normal, Regular Rhythm, Normal S1, Normal S2 Abdomen Exam: Positive: Normal bowel sounds, Soft, Tenderness Extremity Exam: Negative: Edema Neuro Exam: Positive: Normal Speech Psych Exam: Positive: Mental status NL Assessment /Plan Problems (1) COPD exacerbation Status: Acute Response to Treatment: Stable Discussed With: Nurse, Patient Problem Specific Plan: Monitor Clinically, Repeat Labs Problem Text: 05/11 Cont current regimen. Await clearance from PT for d/c home likely will need homecare. 05/10 On PO Pred, resp status stable. Await clearance from PT to d/c home. 05/09/18: Patient is being transitioned from Iv solumedrol to oral Prednisone 50 mg. Continue with nebs. Patient is doing better. Patient is med-surg status. We will d/c tele today. PT to evaluate today. PT requested OT be consulted as well. 05/08 Pt rec IV solumedrol 125 mg overnight, now on SM 60 IV q8h, Pulm/Irs Agent following. Resp status improved. Sats stable on 3 L. Afebrile. Cont with nebs. 05/07 Pt on prednisone, will give depomedrol 80 mg IM x1 today. Anticipate d/c home tomorrow. Cont with [facility] (2) Anaphylaxis Status: Resolved Response to Treatment: Improving Discussed With: Patient Problem Specific Plan: Consult Specialist, Monitor Clinically, Repeat Labs Problem Text: 05/09/18: Resolved. Patient much improved. Dr. Corona continues to follow. Patient is being transitioned from Solumedrol to oral prednisone. If patient tolerates without worsening of symptoms and continued improvement he may be able to be discharged tomorrow. Patient will be transferred to med-surg floor today Pt admitted to ICU from [place], appears like to be from tamiflu has also be taking ACEi, and Azithromycin, all have been d/c'd. Monitor for further reactions. Cont with SM, H1 and H2 blockers (can d/c these tonight). (3) Angioedema Status: Resolved Problem Text: See above. (4) Influenza Status: Resolved Problem Specific Plan: Monitor Clinically, Repeat Labs Problem Text: 05/08 Tamiflu d/c d/t concerns of angioedema. 05/07 Afebrile for > 24 hours, cont with tamiflu D2, H & P notes that this was positive in the ED, although I don't see record of this. (5) Alcohol dependence Status: Chronic Response to Treatment: Stable Problem Text: Serax protocol available (6) Acute respiratory failure with hypoxia Status: Resolved Response to Treatment: Stable Problem Specific Plan: Consult Specialist, Monitor Clinically Problem Text: Pt with ARF, hypoxic due to anaphylaxis, with angioedema n ecessitating transfer to ICU for monitoring. Plan/VTE VTE Prophylaxis Ordered?: Yes (Lovenox) VS, I&O, 24H, [facility] Vital Signs/I&O Vital Signs Date Time Temp Pulse Resp B/P (MAP) Pulse Ox O2 Delivery O2 Flow Rate FiO2 05/11/18 08:47 63 142/90 05/11/18 08:24 Nasal Cannula 3.0 05/11/18 06:00 98.8 16 99 I&O- Last 24 Hours up to 6 AM 05/11/18 06:00 Intake Total 916 ml Output Total 1150 ml Balance -234 ml Laboratory Data 24H LABS Laboratory Tests 2 05/11/18 06:00: Immature Granulocyte % (Auto) 1.1, White Blood Count 7.5, Red Blood Count 4.14L, Hemoglobin 13.1L, Hematocrit 38.2L, Mean Corpuscular Volume 92.3, Mean Corpuscular Hemoglobin 31.6, Mean Corpuscular Hemoglobin Concent 34.3, Red Cell Distribution Width 12.3, Platelet Count 227, Neutrophils (%) (Auto) 60.5, Lympho cytes (%) (Auto) 23.1L, Monocytes (%) (Auto) 15.0H, Eosinophils (%) (Auto) 0.0, Basophils (%) (Auto) 0.3, Neutrophils # (Auto) 4.6, Lymphocytes # (Auto) 1.7, Monocytes # (Auto) 1.1H, Eosinophils # (Auto) 0.0, Basophils # (Auto) 0.0, Nucleated Red Blood Cells % (auto) 0.0, Anion Gap 8, Glomerular Filtration Rate > 60.0, Blood Urea Nitrogen 12, Creatinine 0.62L, Sodium Level 134L, Potassium Level 3.6, Chloride Level 98, Carbon Dioxide Level 28, Calcium Level 8.2L CBC/BMP Laboratory Tests 05/11/18 06:00 Red Blood Count 4.14 L, Mean Corpuscular Volume 92.3, Mean Corpuscular H emoglobin 31.6, Mean Corpuscular Hemoglobin Concent 34.3, Red Cell Distribution Width 12.3, Neutrophils (%) (Auto) 60.5, Lymphocytes (%) (Auto) 23.1 L, Monocytes (%) (Auto) 15.0 H, Eosinophils (%) (Auto) 0.0, Basophils (%) (Auto) 0.3, Neutrophils # (Auto) 4.6, Lymphocytes # (Auto) 1.7, Monocytes # (Auto) 1.1 H, Eosinophils # (Auto) 0.0, Basophils # (Auto) 0.0, Calcium Level 8.2 L Microbiology Microbiology 05/06/18 Blood Culture - Final, Complete NO GROWTH AFTER 5 DAYS 05/05/18 Blood Culture - Final, Complete NO GROWTH AFTER 5 DAYS 05/06/18 MRSA Screen - Final, Complete REBECCA WRIGHT PA-C May 11, 2018 10:31
[2018-05-11 14:00] VITALS: BP 140/71
[2018-05-11 16:00] VITALS: BP 140/71
[2018-05-11] MEDS: EUCERIN 120GM CREAM TOP PRN (21:10)
[2018-05-11 22:00] VITALS: BP 153/93
[2018-05-12] MEDS: ONDANSETRON 4MG/2ML VIAL (J2405) IV PRN ×3 (03:15→17:43)
[2018-05-12] MEDS: ACETAMINOPHEN TAB 650MG DOSE (2X325MG) PO PRN ×4 (03:15→20:43)
[2018-05-12] MEDS: IPRATROPIUM 0.5MG/ALBUTEROL 2.5MG INH SOL UD 3ML (DUONEB)(J7620) NEB SCH ×6 (04:32→23:41)
[2018-05-12] MEDS: OXAZEPAM 15 MG CAP PO SCH ×3 (05:23→21:20)
[2018-05-12 06:00] VITALS: BP 167/92
[2018-05-12 06:56] LABS: EOS % 0.1 % (0.0-3.0); HEMATOCRIT 34.6 % (42.0-52.0); HEMOGLOBIN 12.2 g/dl (13.5-17.5); LYMPH # 1.7 10^3/uL (1.5-4.5); LYMPH % 17.7 % (24.0-44.0); MEAN CORPUSCULAR HGB CONC 35.3 g/dl (32.0-36.5); MEAN CORPUSCULAR VOLUME 90.8 fl (80.0-96.0); MONO # 1.2 10^3/uL (0.0-0.8); MONO % 12.5 % (0.0-5.0); NEUTROPHILS # 6.5 10^3/uL (1.8-7.7); NEUTROPHILS % 69.2 % (36.0-66.0); PLATELET COUNT, AUTOMATED 242 10^3/uL (150-450); RED BLOOD COUNT 3.81 10^6/uL (4.30-6.10); WHITE BLOOD COUNT 9.3 10^3/uL (4.0-10.0)
[2018-05-12 07:19] LABS: BLOOD UREA NITROGEN 12 MG/DL (7-18); CALCIUM LEVEL 7.8 MG/DL (8.5-10.1); CARBON DIOXIDE LEVEL 27 MEQ/L (21-32); CHLORIDE LEVEL 98 MEQ/L (98-107); CREATININE FOR GFR 0.38 MG/DL (0.70-1.30); GLOMERULAR FILTRATION RATE > 60.0 (>56); GLUCOSE, FASTING 91 MG/DL (70-100); POTASSIUM SERUM 3.5 MEQ/L (3.5-5.1); SODIUM LEVEL 134 MEQ/L (136-145)
[2018-05-12 08:00] VITALS: BP 158/88
[2018-05-12] MEDS: ENOXAPARIN 40 MG/0.4 ML SYRINGE (J1650) SC SCH (09:39)
[2018-05-12] MEDS: CitaloPRAM (CeleXA) 20 MG TAB PO SCH (09:39)
[2018-05-12] MEDS: MONTELUKAST 10 MG TAB PO SCH (09:40)
[2018-05-12] MEDS: MAGNESIUM OXIDE 400 MG TAB (MAG-OX) PO SCH (09:40)
[2018-05-12] MEDS: predniSONE 50 MG TAB PO SCH (09:40)
[2018-05-12] MEDS: busPIRone 5 MG TAB PO SCH ×2 (09:40→20:43)
[2018-05-12] MEDS: CYANOCOBALAMIN 500 MCG TAB PO SCH (09:40)
[2018-05-12] MEDS: PANTOPRAZOLE 40MG TAB (PROTONIX) PO SCH (09:40)
[2018-05-12] MEDS: FOLIC ACID 1 MG TAB PO SCH (09:40)
[2018-05-12] MEDS: ASPIRIN 81 MG ENTERIC TAB PO SCH (09:40)
[2018-05-12] MEDS: CARVedilol 12.5 MG TAB PO SCH ×2 (09:41→20:43)
[2018-05-12] MEDS: THIAMINE 100 MG TAB PO SCH (09:41)
[2018-05-12] MEDS: NICOTINE 14 MG/24 HR TRANSDERMAL TD SCH (09:42)
[2018-05-12] MEDS: ADVAIR HFA 230/21MCG INHALER INH SCH ×2 (09:43→21:10)
--- NOTE | 2018-05-12 12:52 | IPNPDOC ---
Subjective Date Seen The patient was seen on 05/12/18. Subjective Chief Complaint/HPI Patient doing well this AM, no acute events overnight. Denies fevers, chills, chest pain, SOB. Objective Physical Examination General Exam: Positive: Alert, Cooperative, No Acute Distress ENT Exam: Positive: Mucous membr. moist/pink Chest Exam: Positive: Wheezing (expiratory wheezes on auscultation), Diminished; Negative: Clear to auscultation (coarse BS), Rales, Rhonchi Heart Exam: Positive: Rate Normal, Regular Rhythm, Normal S1, Normal S2 Abdomen Exam: Positive: Normal bowel sounds, Soft, Tenderness Extremity Exam: Negative: Edema Neuro Exam: Positive: Normal Speech Psych Exam: Positive: Mental status NL Assessment /Plan Problems (1) COPD exacerbation Status: Acute Response to Treatment: Stable Discussed With: Nurse, Patient Problem Specific Plan: Monitor Clinically, Repeat Labs Problem Text: 05/12 Continue current regimen, patient will continue to work with PT and should be ok to get D/C'd with homecare. 05/11 Cont current regimen. Await clearance from PT for d/c home likely will need homecare. 05/10 On PO Pred, resp status stable. Await clearance from PT to d/c home. 05/09/18: Patient is being transitioned from Iv solumedrol to oral Prednisone 50 mg. Continue with nebs. Patient is doing better. Patient is med-surg status. We will d/c tele today. PT to evaluate today. PT requested OT be consulted as well. 05/08 Pt rec IV solumedrol 125 mg overnight, now on SM 60 IV q8h, Pulm/Line Welder following. Resp status improved. Sats stable on 3 L. Afebrile. Cont with nebs. 05/07 Pt on prednisone, will give depomedrol 80 mg IM x1 today. Anticipate d/c home tomorrow. Cont with [facility] (2) Anaphylaxis Status: Resolved Response to Treatment: Improving Discussed With: Patient Problem Specific Plan: Consult Specialist, Monitor Clinically, Repeat Labs Problem Text: 05/09/18: Resolved. Patient much improved. Dr. Corona continues to follow. Patient is being transitioned from Solumedrol to oral prednisone. If patient tolerates without worsening of symptoms and continued improvement he may be able to be discharged tomorrow. Patient will be transferred to med-surg floor today Pt admitted to ICU from [place], appears like to be from tamiflu has also be taking ACEi, and Azithromycin, all have been d/c'd. Monitor for further reactions. Cont with SM, H1 and H2 blockers (can d/c these tonight). (3) Angioedema Status: Resolved Problem Text: See above. (4) Influenza Status: Resolved Problem Specific Plan: Monitor Clinically, Repeat Labs Problem Text: 05/08 Tamiflu d/c d/t concerns of angioedema. 05/07 Afebrile for > 24 hours, cont with tamiflu D2, H & P notes that this was positive in the ED, although I don't see record of this. (5) Alcohol dependence Status: Chronic Response to Treatment: Stable Problem Text: Serax protocol available (6) Acute respiratory failure with hypoxia Status: Resolved Response to Treatment: Stable Problem Specific Plan: Consult Specialist, Monitor Clinically Problem Text: Pt with ARF, hypoxic due to anaphylaxis, with angioedema necessitating transfer to ICU for monitoring. Plan/VTE VTE Prophylaxis Ordered?: Yes (Lovenox) [facility]&O Vital Signs Date Time Temp Pulse Resp B/P (MAP) Pulse Ox O2 Delivery O2 Flow Rate FiO2 05/12/18 09:41 66 158/88 05/12/18 06:00 99.2 18 96 2.0 05/11/18 08:24 Nasal Cannula I&O- Last 24 Hours up to 6 AM 05/12/18 06:00 Intake Total 2050 ml Output Total 1475 ml Balance 575 ml Laboratory Data 24H LABS Laboratory Tests 2 05/12/18 05:59: Immature Granulocyte % (Auto) 0.5, White Blood Count 9.3, Red Blood Count 3.81L, Hemoglobin 12.2L, Hematocrit 34.6L, Mean Corpuscular Volume 90.8, Mean Corpuscular Hemoglobin 32.0, Mean Corpuscular Hemoglobin Concent 35.3, Red Cell Distribution Width 12.3, Platelet Count 242, Neutrophils (%) (Auto) 69.2H, Lymphocytes (%) (Auto) 17.7L, Monocytes (%) (Auto) 12.5H, Eosinophils (%) (Auto) 0.1, Basophils (%) (Auto) 0.0, Neutrophils # (Auto) 6.5, Lymphocytes # (Auto) 1.7, Monocytes # (Auto) 1.2H, Eosinophils # (Auto) 0.0, Basophils # (Auto) 0.0, Nucleated Red Blood Cells % (auto) 0.0, Anion Gap 9, Glomerular Filtration Rate > 60.0, Blood Urea Nitrogen 12, Creatinine 0.38L, Sodium Level 134L, Potassium Level 3.5, Chloride Level 98, Carbon Dioxide Level 27, Calcium Level 7.8L CBC/BMP Laboratory Tests 05/12/18 05:59 Red Blood Count 3.81 L, Mean Corpuscular Volume 90.8, Mean Corpuscular Hemoglobin 32.0, Mean Corpuscular Hemoglobin Concent 35.3, Red Cell Distribution Width 12.3, Neutrophils (%) (Auto) 69.2 H, Lymphocytes (%) (Auto) 17.7 L, Monocytes (%) (Auto) 12.5 H, Eosinophils (%) (Auto) 0.1, Basophils (%) (Auto) 0.0, Neutrophils # (Auto) 6.5, Lymphocytes # (Auto) 1.7, Monocytes # (Auto) 1.2 H, Eosinophils # (Auto) 0.0, Basophils # (Auto) 0.0, Calcium Level 7.8 L Microbiology Microbiology 05/06/18 Blood Culture - Final, Complete NO GROWTH AFTER 5 DAYS 05/05/18 Blood Culture - Final, Complete NO GROWTH AFTER 5 DAYS 05/06/18 MRSA Screen - Final, Complete GME ATTESTATION GME ATTESTATION My faculty preceptor for this patient encounter was physically present during the encounter and was fully available. All aspects of the patient interview, examination, medical decision making process, and medical care plan development were reviewed and approved by the faculty preceptor. The faculty preceptor is aware and concurs with the plan as stated in the body of this note and will attest to such by his/her cosignature. GUERA ARIAS DO May 12, 2018 12:52
[2018-05-12 14:00] VITALS: BP 149/84
[2018-05-12 15:00] VITALS: BP 149/84
[2018-05-12 20:35] VITALS: BP 148/97
[2018-05-12] MEDS: traZODone 50 MG TAB PO PRN (20:43)
[2018-05-12] MEDS: EUCERIN 120GM CREAM TOP PRN (20:44)
[2018-05-12 22:00] VITALS: BP 148/97
[2018-05-13] MEDS: IPRATROPIUM 0.5MG/ALBUTEROL 2.5MG INH SOL UD 3ML (DUONEB)(J7620) NEB SCH ×5 (04:18→18:39)
[2018-05-13 06:00] VITALS: BP_SYST 144; BP_SYST 157; BP_DIAS 83; BP_DIAS 86
[2018-05-13] MEDS: ONDANSETRON 4MG/2ML VIAL (J2405) IV PRN ×3 (06:35→22:18)
[2018-05-13] MEDS: OXAZEPAM 15 MG CAP PO SCH ×3 (06:35→20:53)
[2018-05-13] MEDS: ACETAMINOPHEN TAB 650MG DOSE (2X325MG) PO PRN ×2 (06:36→20:53)
[2018-05-13 09:00] VITALS: BP 144/86
[2018-05-13] MEDS: ASPIRIN 81 MG ENTERIC TAB PO SCH (09:10)
[2018-05-13] MEDS: THIAMINE 100 MG TAB PO SCH (09:10)
[2018-05-13] MEDS: MONTELUKAST 10 MG TAB PO SCH (09:10)
[2018-05-13] MEDS: CYANOCOBALAMIN 500 MCG TAB PO SCH (09:10)
[2018-05-13] MEDS: PANTOPRAZOLE 40MG TAB (PROTONIX) PO SCH (09:11)
[2018-05-13] MEDS: MAGNESIUM OXIDE 400 MG TAB (MAG-OX) PO SCH (09:11)
[2018-05-13] MEDS: ENOXAPARIN 40 MG/0.4 ML SYRINGE (J1650) SC SCH (09:11)
[2018-05-13] MEDS: CitaloPRAM (CeleXA) 20 MG TAB PO SCH (09:11)
[2018-05-13] MEDS: predniSONE 50 MG TAB PO SCH (09:11)
[2018-05-13] MEDS: CARVedilol 12.5 MG TAB PO SCH ×2 (09:11→20:53)
[2018-05-13] MEDS: FOLIC ACID 1 MG TAB PO SCH (09:11)
[2018-05-13] MEDS: busPIRone 5 MG TAB PO SCH ×2 (09:11→20:52)
[2018-05-13] MEDS: NICOTINE 14 MG/24 HR TRANSDERMAL TD SCH (09:13)
[2018-05-13] MEDS: ADVAIR HFA 230/21MCG INHALER INH SCH ×2 (11:53→18:39)
--- NOTE | 2018-05-13 13:59 | IPN ---
DATE: 05/13/2018 Dontae is seen [facility]. He is going home tomorrow. He is walking with his nurses in the halls. His exercise tolerance is improving. He is not having any shortness of breath. He is afebrile. Vital signs stable. Lungs clear. Heart regular rhythm. Abdomen soft, nontender. Labs are from yesterday and there are no new labs today. PLAN: Discharge tomorrow. He has no new medical issues. He needs a home safety in the morning and he should be cleared for discharge.
[2018-05-13 14:00] VITALS: BP 136/91
[2018-05-13] MEDS: traZODone 50 MG TAB PO PRN (20:53)
[2018-05-13 21:45] VITALS: BP 156/78
[2018-05-13 22:00] VITALS: BP 156/78
[2018-05-14] MEDS: ACETAMINOPHEN TAB 650MG DOSE (2X325MG) PO PRN ×2 (01:17→09:32)
[2018-05-14] MEDS: IPRATROPIUM 0.5MG/ALBUTEROL 2.5MG INH SOL UD 3ML (DUONEB)(J7620) NEB SCH ×4 (02:00→11:36)
[2018-05-14] MEDS: ONDANSETRON 4MG/2ML VIAL (J2405) IV PRN (05:59)
[2018-05-14] MEDS: OXAZEPAM 15 MG CAP PO SCH ×2 (05:59→14:00)
[2018-05-14 06:00] VITALS: BP 164/82
[2018-05-14] MEDS: ADVAIR HFA 230/21MCG INHALER INH SCH (08:01)
[2018-05-14] MEDS: predniSONE 50 MG TAB PO SCH (09:23)
[2018-05-14] MEDS: ENOXAPARIN 40 MG/0.4 ML SYRINGE (J1650) SC SCH (09:23)
[2018-05-14 09:24] VITALS: BP 158/88
[2018-05-14] MEDS: CYANOCOBALAMIN 500 MCG TAB PO SCH (09:24)
[2018-05-14] MEDS: FOLIC ACID 1 MG TAB PO SCH (09:24)
[2018-05-14] MEDS: busPIRone 5 MG TAB PO SCH (09:24)
[2018-05-14] MEDS: THIAMINE 100 MG TAB PO SCH (09:24)
[2018-05-14] MEDS: PANTOPRAZOLE 40MG TAB (PROTONIX) PO SCH (09:24)
[2018-05-14] MEDS: MAGNESIUM OXIDE 400 MG TAB (MAG-OX) PO SCH (09:24)
[2018-05-14] MEDS: MONTELUKAST 10 MG TAB PO SCH (09:24)
[2018-05-14] MEDS: CitaloPRAM (CeleXA) 20 MG TAB PO SCH (09:24)
[2018-05-14] MEDS: CARVedilol 12.5 MG TAB PO SCH (09:24)
[2018-05-14] MEDS: ASPIRIN 81 MG ENTERIC TAB PO SCH (09:24)
[2018-05-14] MEDS: NICOTINE 14 MG/24 HR TRANSDERMAL TD SCH (09:25)
[2018-05-14] MEDS ORDERED: PRED50TA PO (10:08)
--- NOTE | 2018-05-14 12:27 | DSES ---
DATE OF ADMISSION: 05/05/2018 DATE OF DISCHARGE: 05/14/2018 PRIMARY CARE PHYSICIAN: Ana Cristina Sanderson, nurse practitioner. ATTENDING PHYSICIAN: Dr. Miki Laird. HISTORY OF PRESENT ILLNESS: This is a 53-year-old male with a significant past medical history of chronic obstructive pulmonary disease (COPD), hypertension, alcoholism, depression, gastroesophageal reflux disease (GERD), alcoholic cardiomyopathy, presented to [facility] emergency department with complaints of shortness of breath. Patient had noted that he had had a worsening cough and had felt fatigued without fevers or cold chills at the time. Emergency room workup proved positive with a temperature of 100.6, rapid flu tested positive for influenza type A. Chest x-ray was fairly benign with no suggestion for pneumonia versus chronic obstructive pulmonary disease (COPD) exacerbation. Patient was subsequently admitted to [facility]. HOSPITAL COURSE: Patient was placed on Tamiflu, steroids and nebulizers. Patient was monitored for alcohol withdrawal given his chronic history of alcoholism. On 05/08/2018, a rapid assessment was called on patient for decreased oxygen saturation and shortness of breath. He was subsequently transitioned to intensive care unit (ICU). Was also noted to have significant developing swelling around his eyes and upper lip. It was deemed patient was probably having some form of allergic reaction which improved with treatment of Solu-Medrol 120 mg IV, famotidine and 50 mg of Benadryl. Secondary to concern for anaphylaxis, patient was given epinephrine 0.3 mg. Within 30 minutes, patient's face swelling had significantly improved as well as his lip swelling and shortness of breath returned back to baseline. Over the next several days, patient was totally transitioned to oral medications as well as back down to his baseline oxygen needs. He continued to feel well. It is unclear what caused the anaphylaxis, whether it was azithromycin or Tamiflu, these should both be documented as allergies at this point. Patient is status post home safety evaluation today with physical therapy and they are recommending a rolling walker. PHYSICAL EXAMINATION: Vital signs are stable. He is afebrile. Oxygen saturation stable at 97% on 2 liters nasal cannula. HEENT: Neck is supple without lymphadenopathy or jugular venous distention (JVD). Cardiovascular: Heart rate and rhythm are regular. Pulmonary: Lungs are diminished bibasilar, otherwise clear. Abdomen: Soft, nontender. Bilateral lower extremities are without edema. ASSESSMENT: 1. Chronic obstructive pulmonary disease (COPD) exacerbation. 2. Influenza type A. 3. Chronic alcoholism. 4. Anaphylaxis. SECONDARY DIAGNOSES INCLUDE: 1. Hypertension. 2. Cardiomyopathy. PLAN: Patient will be discharged to home. Diet is as tolerated. Activity is as tolerated. He will followup with me in the outpatient setting for a recheck on 05/17/2018 at 10 a.m. Patient is discharged in stable and satisfactory condition with no further questions at time of discharge. edited: 05/15/2018 [id number] [email or web address]
[2018-05-16] MEDS ORDERED: EPIN0.3I11 INJ (08:59)
[2018-05-16] MEDS ORDERED: OXYB5TAB PO (10:22)
[2018-05-16] MEDS ORDERED: CLOB0.0548 TOP (10:22)
[2018-05-16] MEDS ORDERED: VITMTA PO (10:22)
[2018-05-16] MEDS ORDERED: PRED50TA PO (10:22)
== END 2018-05-14 15:15 | disposition home or self-care (01) | DRG 140 ==
LOC: M ED 21:34 → M ED INP 23:26 → M MS4PR 05-06 14:08 → M ICU 05-08 03:05 → M MSPAV 05-09 14:03
PROVIDERS: ADMIT Hospitalist; ATTEND Family Medicine
DX: J44.0 Chronic obstructive pulmonary disease with (acute) lower respiratory infection (principal); J96.01 Acute respiratory failure with hypoxia; I42.6 Alcoholic cardiomyopathy; D69.0 Allergic purpura; T88.6XXA Anaphylactic reaction due to adverse effect of correct drug or medicament properly administered, initial encounter; T37.5X5A Adverse effect of antiviral drugs, initial encounter; I10 Essential (primary) hypertension; T36.3X5A Adverse effect of macrolides, initial encounter; J10.1 Influenza due to other identified influenza virus with other respiratory manifestations; F10.20 Alcohol dependence, uncomplicated; F32.9 Major depressive disorder, single episode, unspecified; K21.9 Gastro-esophageal reflux disease without esophagitis; J30.2 Other seasonal allergic rhinitis; F17.210 Nicotine dependence, cigarettes, uncomplicated; Z79.899 Other long term (current) drug therapy; Z91.040 Latex allergy status; J44.1 Chronic obstructive pulmonary disease with (acute) exacerbation

== ENCOUNTER 2018-05-29 08:44 | Emergency (ER) | payer OTHER ==
[~2018-05-29] VITALS: Ht 177.8 cm; Wt 70.5 kg
[~2018-05-29 08:44] MED LIST changes: -/ADVA50050 INH; +ADVA1AER2 INH; -ASPI1TAB PO; -ASPI81CH PO; +ASPI81CH49 PO; +ASPI81TA26 PO; -CITA-231 PO; -CITA20TA4 PO; +CITA20TA6 PO; +CITA40TA6 PO; +CLOB0.0548 TOP; +EPIN0.3I11 INJ; +HYDR-3715 PO; +KETO0.5S2 OD; +KETO0.5S2 OS; -KETO5OPD OD; -KETO5OPD OS; +LINE1TAB PO; +NICO14DI20 EXT; +NICO14DI20 TOP; -NICO14PA EXT; -NICO14PA TOP; +NICO21DI3 EXT; +NICO21DI3 TD; -NICO21PAT EXT; -NICO21PAT TD; -NORC1TAB4 PO; +NORC1TAB7 PO; -NORCOTAB PO; -OLOP1OPD; +OXYB5TAB PO; +PATA2.5S; +PRED-351 PO; -PRED10TA PO; +PRED50TA PO; +TRIA0.1C60 TOP; -TRIA1CR TOP; +VITA100018 PO; -VITA100072 PO; +VITA500T17 PO; +VITMTA PO
[2018-05-29] MEDS ORDERED: NS 1,000 ML IV ONE (09:30)
[2018-05-29 10:26] LABS: BASO % 0.1 % (0.0-1.0); EOS # 0.1 10^3/uL (0.0-0.50); HEMATOCRIT 31.2 % (42.0-52.0); HEMOGLOBIN 10.4 g/dl (13.5-17.5); LYMPH # 2.7 10^3/uL (1.5-4.5); MEAN CORPUSCULAR HEMOGLOBIN 31.4 pg (27.0-33.0); MEAN CORPUSCULAR HGB CONC 33.3 g/dl (32.0-36.5); MEAN CORPUSCULAR VOLUME 94.3 fl (80.0-96.0); MONO # 0.7 10^3/uL (0.0-0.8); MONO % 5.9 % (0.0-5.0); NEUTROPHILS # 7.6 10^3/uL (1.8-7.7); NEUTROPHILS % 68.4 % (36.0-66.0); PLATELET COUNT, AUTOMATED 473 10^3/uL (150-450); RED BLOOD COUNT 3.31 10^6/uL (4.30-6.10); WHITE BLOOD COUNT 11.1 10^3/uL (4.0-10.0)
[2018-05-29 10:59] LABS: ALBUMIN 2.5 GM/DL (3.2-5.2); ALT/SGPT 33 U/L (12-78); BILIRUBIN,DIRECT 0.1 MG/DL (0.0-0.2); BILIRUBIN,TOTAL 0.3 MG/DL (0.2-1.0); BLOOD UREA NITROGEN 9 MG/DL (7-18); CALCIUM LEVEL 7.9 MG/DL (8.5-10.1); CARBON DIOXIDE LEVEL 30 MEQ/L (21-32); CHLORIDE LEVEL 106 MEQ/L (98-107); CK-MB VALUE MASS < 1.0 NG/ML (<3.6); CPK CREATINE PHOSPHOKINASE 23 U/L (39-308); CREATININE FOR GFR 0.38 MG/DL (0.70-1.30); GLOMERULAR FILTRATION RATE > 60.0 (>56); GLUCOSE, FASTING 81 MG/DL (70-100); MB/CK RELATIVE INDEX 4.35 (< OR =4); POTASSIUM SERUM 4.1 MEQ/L (3.5-5.1); SODIUM LEVEL 142 MEQ/L (136-145); TROPONIN I < 0.02 NG/ML (< 0.10)
[2018-05-29] MEDS ORDERED: METAL LOCK LOOP XX ONE (11:01)
--- NOTE | 2018-05-29 12:31 | REP ---
Bilateral knee series: Nine views presented. History: Trauma. Findings: Five views of each knee demonstrate clothing artifact over the distal thighs. There is no evidence of fracture or subluxation. There is a pattern of periosteal reaction involving the distal peggy metaphyseal region of the right femur. This is a new finding compared with the June 27, 2017 prior study. This may reflect stress fracture healing or etiology. Consider MRI scanning of the right femur. Impression: No acute fracture seen. There is periosteal reaction visible in the distal femur on the right as a new finding compared with the June 27, 2017 study. Question healing stress fracture or stress phenomenon, versus other lesion. Consider MRI scanning of the right femur. Electronically Signed by Sudarshan Louis MD 05/29/2018 01:21 P
[2018-05-29] MEDS ORDERED: ACETAMINOPHEN 325 MG TAB PO ONE (14:00)
[2018-05-29 19:17] LABS: ETHYL ALCOHOL (ETHANOL) 0.254 % (0.000-0.010)
[2018-05-29] MEDS ORDERED: PROHANCE 279.3MG/ML 15ML VIAL (A9576) As Ordered ONE (20:42)
--- NOTE | 2018-05-29 22:08 | ECGEPIP ---
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
[2018-05-29 22:15] VITALS: BP 188/101
[2018-05-29] MEDS ORDERED: CARVedilol 12.5 MG TAB PO ONE (22:15)
--- NOTE | 2018-05-29 22:37 | REPVR ---
EXAM: MRI Right Lower Extremity Without and With Contrast, Femur. EXAM DATE/TIME: 05/29/2018 9:09 PM CLINICAL HISTORY: 53 years old, male; Pain and signs and symptoms; Other: Abnormal xray; Knee and thigh; Right; Patient HX: PT fell and has pain distal right femur, abn xray on pacs R/O lesion; Additional info: Knee pain TECHNIQUE: Imaging protocol: MR of the Right femur without and with intravenous contrast. Contrast material: PROHANCE Contrast volume: 14 ml Contrast route: IV COMPARISON: CR Knee, complete BILATERAL 05/29/2018 9:58 AM FINDINGS: Bones/joints: Medullary lesion in the distal femur measures 9 x 2.5 x 3.6 centimeters demonstrating a serpiginous low signal border surrounded by high signal in the marrow space and high signal adjacent to the scalloped border internally with a low signal central portion, which demonstrates mild enhancement on post gadolinium imaging. Findings consistent with a medullary infarct. Small knee joint effusion. Soft tissues: Unremarkable. 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 Less likely considerations include a low grade chondrosarcoma. Electronically signed by: Andrew Allan On 05/29/2018 22:37:09 PM
[2018-05-29 23:36] VITALS: BP 163/94
--- NOTE | 2018-05-30 09:26 | ED PDOC ---
Post-Departure Follow-Up dr nicole and joycelyng faxed formal report of mri femur for fu Cuca Hopkins MD May 30, 2018 09:25
== END 2018-05-29 23:30 | disposition home or self-care (01) ==
LOC: EDBD 08:44 → M ED 08:44
DX: M87.851 Other osteonecrosis, right femur (principal); I10 Essential (primary) hypertension; J44.9 Chronic obstructive pulmonary disease, unspecified; K21.9 Gastro-esophageal reflux disease without esophagitis; I42.6 Alcoholic cardiomyopathy; J30.2 Other seasonal allergic rhinitis; Z79.82 Long term (current) use of aspirin; Z79.899 Other long term (current) drug therapy; Z88.8 Allergy status to other drugs, medicaments and biological substances; Z88.1 Allergy status to other antibiotic agents; Z91.040 Latex allergy status
CPT/HCPCS: 36415; 73564; 73720; 80048; 80076; 82550; 82553; 83605; 85025; 93005; 96360; 99285; A9576; G0480

== ENCOUNTER 2018-06-19 06:32 | Emergency (ER) | payer OTHER ==
[~2018-06-19] VITALS: Ht 177.8 cm; Wt 65.9 kg
[2018-06-19] MEDS ORDERED: IPRATROPIUM 0.5MG/ALBUTEROL 2.5MG INH SOL UD 3ML (DUONEB)(J7620) NEB PRN (06:45)
[2018-06-19] MEDS ORDERED: dexameTHASONE 20 MG/5 ML VIAL (J1100) IV ONE (07:00)
[2018-06-19 07:13] LABS: BASO % 0.7 % (0.0-1.0); EOS # 0.1 10^3/uL (0.0-0.50); EOS % 1.4 % (0.0-3.0); HEMATOCRIT 35.8 % (42.0-52.0); HEMOGLOBIN 11.9 g/dl (13.5-17.5); LYMPH # 2.7 10^3/uL (1.5-4.5); LYMPH % 47.4 % (24.0-44.0); MEAN CORPUSCULAR HEMOGLOBIN 31.6 pg (27.0-33.0); MEAN CORPUSCULAR HGB CONC 33.2 g/dl (32.0-36.5); MEAN CORPUSCULAR VOLUME 95.2 fl (80.0-96.0); MONO # 0.5 10^3/uL (0.0-0.8); MONO % 8.4 % (0.0-5.0); NEUTROPHILS # 2.4 10^3/uL (1.8-7.7); NEUTROPHILS % 41.8 % (36.0-66.0); PLATELET COUNT, AUTOMATED 161 10^3/uL (150-450); RED BLOOD COUNT 3.76 10^6/uL (4.30-6.10); WHITE BLOOD COUNT 5.7 10^3/uL (4.0-10.0)
[2018-06-19 07:26] LABS: ABG BASE EXCESS 2.1 (-2.0-2.0); ABG HCO3 27.9 MEQ/L (22.0-26.0); ABG O2 SATURATION 97.3 % (95.0-99.0); ABG PARTIAL PRESSURE CO2 48.4 mmHg (35.0-45.0); ABG PARTIAL PRESSURE O2 104.5 mmHg (75.0-100.0); ABG STANDARD HCO3 26.4 MEQ/L (22.0-26.0); ABG TOTAL CO2 29.4 MEQ/L (22.0-29.0); ABG pH (ARTERIAL) 7.379 UNITS (7.350-7.450)
[2018-06-19 07:36] LABS: BLOOD UREA NITROGEN 9 MG/DL (7-18); CALCIUM LEVEL 8.3 MG/DL (8.5-10.1); CARBON DIOXIDE LEVEL 29 MEQ/L (21-32); CHLORIDE LEVEL 106 MEQ/L (98-107); CK-MB VALUE MASS < 1.0 NG/ML (<3.6); CPK CREATINE PHOSPHOKINASE 32 U/L (39-308); CREATININE FOR GFR 0.48 MG/DL (0.70-1.30); GLOMERULAR FILTRATION RATE > 60.0 (>56); GLUCOSE, FASTING 83 MG/DL (70-100); MB/CK RELATIVE INDEX 3.12 (< OR =4); NT-PRO BNP 12 PG/ML (<125); POTASSIUM SERUM 3.8 MEQ/L (3.5-5.1); SODIUM LEVEL 143 MEQ/L (136-145); TROPONIN I < 0.02 NG/ML (< 0.10)
[2018-06-19] MEDS ORDERED: NS 1,000 ML IV ONE (07:45)
--- NOTE | 2018-06-19 08:13 | REP ---
PORTABLE CHEST X-RAY: SINGLE VIEW. HISTORY: Dyspnea and cough. COMPARISON CHEST X-RAY: May 16, 2018 FINDINGS: The previously noted left upper lobe infiltrate is improved although not completely resolved. No new infiltrate is seen. The lungs are otherwise well inflated and clear. Pleural angles are sharp. Heart size is normal. Pulmonary vasculature is not increased. IMPRESSION: Improving left upper lobe pneumonia. Otherwise no acute disease. Electronically Signed by Sudarshan Louis MD 06/19/2018 09:00 A
[2018-06-19 08:17] LABS: ALBUMIN 3.6 GM/DL (3.2-5.2); ALT/SGPT 30 U/L (12-78); BILIRUBIN,DIRECT 0.2 MG/DL (0.0-0.2); BILIRUBIN,TOTAL 0.4 MG/DL (0.2-1.0)
[2018-06-19 11:35] LABS: CK-MB VALUE MASS < 1.0 NG/ML (<3.6); CPK CREATINE PHOSPHOKINASE 30 U/L (39-308); MB/CK RELATIVE INDEX 3.33 (< OR =4); TROPONIN I < 0.02 NG/ML (< 0.10)
--- NOTE | 2018-06-19 11:48 | ED PDOC ---
Post-Departure Follow-Up donnell garvey faxed formal report of p cxr for fu Cuca Hopkins MD Jun 19, 2018 11:48
[2018-06-19] MEDS ORDERED: PRED20TA PO (12:50)
[2018-06-19 12:55] VITALS: O2SAT 95
[2018-06-19 13:00] VITALS: BP 137/84
--- NOTE | 2018-06-19 23:14 | ECGEPIP ---
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
== END 2018-06-19 13:05 | disposition home or self-care (01) ==
LOC: M ED 06:32
DX: J44.0 Chronic obstructive pulmonary disease with (acute) lower respiratory infection (principal); J18.1 Lobar pneumonia, unspecified organism; I10 Essential (primary) hypertension; Z79.899 Other long term (current) drug therapy; Z79.82 Long term (current) use of aspirin; Z88.1 Allergy status to other antibiotic agents; Z88.8 Allergy status to other drugs, medicaments and biological substances; Z91.040 Latex allergy status; F17.210 Nicotine dependence, cigarettes, uncomplicated
CPT/HCPCS: 36600; 71045; 80048; 80076; 82550; 82553; 82803; 83605; 83880; 85025; 87040; 93005; 93041; 94640; 96361; 96374; 99285; J1100

== ENCOUNTER 2018-06-29 01:49 | Emergency (ER) | payer OTHER ==
[~2018-06-29] VITALS: Ht 180.3 cm; Wt 65.9 kg
[2018-06-29 02:23] LABS: BASO % 0.3 % (0.0-1.0); HEMATOCRIT 33.7 % (42.0-52.0); HEMOGLOBIN 11.4 g/dl (13.5-17.5); LYMPH # 1.2 10^3/uL (1.5-4.5); LYMPH % 32.2 % (24.0-44.0); MEAN CORPUSCULAR HEMOGLOBIN 32.9 pg (27.0-33.0); MEAN CORPUSCULAR HGB CONC 33.8 g/dl (32.0-36.5); MEAN CORPUSCULAR VOLUME 97.4 fl (80.0-96.0); MONO # 0.4 10^3/uL (0.0-0.8); MONO % 11.4 % (0.0-5.0); NEUTROPHILS # 2.1 10^3/uL (1.8-7.7); NEUTROPHILS % 55.8 % (36.0-66.0); RED BLOOD COUNT 3.46 10^6/uL (4.30-6.10); WHITE BLOOD COUNT 3.7 10^3/uL (4.0-10.0)
[2018-06-29] MEDS ORDERED: CITA40TA4 PO (02:32)
[2018-06-29 02:43] LABS: PLATELET COUNT, AUTOMATED 66 10^3/uL (150-450)
[2018-06-29 02:49] LABS: BLOOD UREA NITROGEN 10 MG/DL (7-18); CALCIUM LEVEL 7.7 MG/DL (8.5-10.1); CARBON DIOXIDE LEVEL 24 MEQ/L (21-32); CHLORIDE LEVEL 111 MEQ/L (98-107); CREATININE FOR GFR 0.83 MG/DL (0.70-1.30); GLOMERULAR FILTRATION RATE > 60.0 (>56); GLUCOSE, FASTING 146 MG/DL (70-100); POTASSIUM SERUM 3.4 MEQ/L (3.5-5.1); SODIUM LEVEL 145 MEQ/L (136-145)
[2018-06-29] MEDS ORDERED: NICO14DI24 TOP (04:27)
[2018-06-29] MEDS ORDERED: PRED20TA PO (05:33)
[2018-06-29 06:05] VITALS: BP 111/77
--- NOTE | 2018-06-29 07:33 | REP ---
Clinical: Dyspnea. Technique: PA and lateral. Comparison: 06/19/2018. Findings: Mediastinum and cardiac silhouette are within normal limits and stable. Lung garcia demonstrate chronic-appearing changes. Left upper lobe/perihilar opacities are essentially unchanged. No new acute consolidation, effusion, or pneumothorax. Skeletal structures are intact. Impression: No significant change from prior examination. Left suprahilar opacities similar to prior examination. No new acute process identified. Electronically Signed by Flex Forrest MD 06/29/2018 04:02 A
--- NOTE | 2018-06-29 09:27 | ECGEPIP ---
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
--- NOTE | 2018-07-02 15:19 | ED PDOC ---
Post-Departure Follow-Up isaac garvey faxed formal report of cxr for fu Cuca Hopkins MD July 02, 2018 15:19
== END 2018-06-29 06:17 | disposition home or self-care (01) ==
LOC: M ED 01:49
DX: J44.1 Chronic obstructive pulmonary disease with (acute) exacerbation (principal); F41.1 Generalized anxiety disorder; Z87.891 Personal history of nicotine dependence; Z88.8 Allergy status to other drugs, medicaments and biological substances; Z88.1 Allergy status to other antibiotic agents; Z91.040 Latex allergy status; J30.2 Other seasonal allergic rhinitis; Z79.899 Other long term (current) drug therapy; Z79.51 Long term (current) use of inhaled steroids; Z79.82 Long term (current) use of aspirin

== ENCOUNTER 2018-07-07 17:18 | Emergency (ER) | payer OTHER ==
[~2018-07-07] VITALS: Ht 180.3 cm; Wt 68.2 kg
[~2018-07-07 17:18] MED LIST changes: +NICO14DI24 TOP
[2018-07-07] MEDS ORDERED: CITA40TA6 PO (17:42)
[2018-07-07] MEDS ORDERED: TRAZ-160 PO (17:42)
[2018-07-07] MEDS: IPRATROPIUM 0.5MG/ALBUTEROL 2.5MG INH SOL UD 3ML (DUONEB)(J7620) NEB PRN ×3 (17:50→18:26)
[2018-07-07 18:03] LABS: BASO % 0.7 % (0.0-1.0); EOS # 0.1 10^3/uL (0.0-0.50); EOS % 2.2 % (0.0-3.0); HEMOGLOBIN 11.4 g/dl (13.5-17.5); LYMPH # 1.3 10^3/uL (1.5-4.5); LYMPH % 21.5 % (24.0-44.0); MEAN CORPUSCULAR HEMOGLOBIN 32.9 pg (27.0-33.0); MEAN CORPUSCULAR HGB CONC 33.5 g/dl (32.0-36.5); MONO # 0.8 10^3/uL (0.0-0.8); NEUTROPHILS # 3.8 10^3/uL (1.8-7.7); NEUTROPHILS % 62.3 % (36.0-66.0); PLATELET COUNT, AUTOMATED 141 10^3/uL (150-450); RED BLOOD COUNT 3.47 10^6/uL (4.30-6.10)
[2018-07-07 18:36] LABS: BLOOD UREA NITROGEN 3 MG/DL (7-18); CALCIUM LEVEL 7.9 MG/DL (8.5-10.1); CARBON DIOXIDE LEVEL 26 MEQ/L (21-32); CHLORIDE LEVEL 103 MEQ/L (98-107); CPK CREATINE PHOSPHOKINASE 51 U/L (39-308); CREATININE FOR GFR 0.45 MG/DL (0.70-1.30); GLOMERULAR FILTRATION RATE > 60.0 (>56); GLUCOSE, FASTING 95 MG/DL (70-100); MB/CK RELATIVE INDEX 2.35 (< OR =4); NT-PRO BNP 105 PG/ML (<125); POTASSIUM SERUM 3.3 MEQ/L (3.5-5.1); SODIUM LEVEL 139 MEQ/L (136-145); TROPONIN I < 0.02 NG/ML (< 0.10)
[2018-07-07 18:42] VITALS: O2SAT 98
[2018-07-07 19:00] VITALS: BP 157/94
[2018-07-07] MEDS ORDERED: MEDR4PAK PO (19:26)
[2018-07-07] MEDS ORDERED: KEFL500C17 PO (19:26)
--- NOTE | 2018-07-08 07:52 | ECGEPIP ---
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
--- NOTE | 2018-07-08 08:04 | REP ---
PORTABLE CHEST X-RAY: AP SEMI-ERECT VIEW. HISTORY: Dyspnea and cough. COMPARISON CHEST X-RAY: June 29, 2018 FINDINGS: The lungs are somewhat hyperinflated but the free of new infiltrate. There is a left perihilar somewhat linear opacity again noted, unchanged from June 29, 2018. This is improved compared to June 19, 2018. No new infiltrate is seen. Pleural angles are sharp. Heart size is normal. EKG monitoring electrodes and oxygen delivery tubing are seen. IMPRESSION: Gradually clearing left upper lobe infiltrate. Some streaky linear density persists on the left. Mild hyperinflation. No acute infiltrate seen. Electronically Signed by Sudarshan Louis MD 07/08/2018 09:20 A
--- NOTE | 2018-07-10 06:01 | ED PDOC ---
Post-Departure Follow-Up dr nicole faxed formal report of cxr for fu Cuca Hopkins MD July 10, 2018 06:01
== END 2018-07-07 19:55 | disposition home or self-care (01) ==
LOC: EDBD 17:18 → M ED 17:18
DX: J44.1 Chronic obstructive pulmonary disease with (acute) exacerbation (principal); E87.6 Hypokalemia; F32.9 Major depressive disorder, single episode, unspecified; K21.9 Gastro-esophageal reflux disease without esophagitis; I10 Essential (primary) hypertension; F17.210 Nicotine dependence, cigarettes, uncomplicated; F10.10 Alcohol abuse, uncomplicated; Z88.8 Allergy status to other drugs, medicaments and biological substances; Z88.1 Allergy status to other antibiotic agents; Z91.040 Latex allergy status; Z79.899 Other long term (current) drug therapy; Z79.51 Long term (current) use of inhaled steroids; Z79.82 Long term (current) use of aspirin

== ENCOUNTER 2018-08-02 22:37 | Inpatient (IN) | payer OTHER ==
[~2018-08-02] VITALS: Ht 172.7 cm; Wt 63.6 kg
[~2018-08-02 22:37] MED LIST changes: +KEFL500C17 PO; +MEDR4PAK PO; -TRAZ-160 PO; +TRAZ-252 PO
[2018-08-02] MEDS ORDERED: IPRATROPIUM 0.5MG/ALBUTEROL 2.5MG INH SOL UD 3ML (DUONEB)(J7620) NEB ONE ×2 (23:15→23:30)
[2018-08-02] MEDS ORDERED: methylPREDNISolone INJ 125 MG/2 ML VIAL (J2930) IV ONE (23:30)
[2018-08-02 23:37] LABS: BASO % 0.6 % (0.0-1.0); EOS # 0.1 10^3/uL (0.0-0.50); EOS % 1.5 % (0.0-3.0); HEMATOCRIT 38.4 % (42.0-52.0); HEMOGLOBIN 12.8 g/dl (13.5-17.5); LYMPH # 2.3 10^3/uL (1.5-4.5); LYMPH % 34.8 % (24.0-44.0); MEAN CORPUSCULAR HEMOGLOBIN 33.2 pg (27.0-33.0); MEAN CORPUSCULAR HGB CONC 33.3 g/dl (32.0-36.5); MEAN CORPUSCULAR VOLUME 99.7 fl (80.0-96.0); MONO # 0.6 10^3/uL (0.0-0.8); MONO % 9.3 % (0.0-5.0); NEUTROPHILS # 3.6 10^3/uL (1.8-7.7); NEUTROPHILS % 53.7 % (36.0-66.0); PLATELET COUNT, AUTOMATED 203 10^3/uL (150-450); RED BLOOD COUNT 3.85 10^6/uL (4.30-6.10); WHITE BLOOD COUNT 6.7 10^3/uL (4.0-10.0)
[2018-08-03 00:11] LABS: ALBUMIN 3.1 GM/DL (3.2-5.2); ALT/SGPT 27 U/L (12-78); BILIRUBIN,DIRECT 0.1 MG/DL (0.0-0.2); BILIRUBIN,TOTAL 0.3 MG/DL (0.2-1.0); BLOOD UREA NITROGEN 5 MG/DL (7-18); CALCIUM LEVEL 8.2 MG/DL (8.5-10.1); CARBON DIOXIDE LEVEL 24 MEQ/L (21-32); CHLORIDE LEVEL 104 MEQ/L (98-107); CK-MB VALUE MASS < 1.0 NG/ML (<3.6); CPK CREATINE PHOSPHOKINASE 38 U/L (39-308); CREATININE FOR GFR 0.52 MG/DL (0.70-1.30); GLOMERULAR FILTRATION RATE > 60.0 (>56); GLUCOSE, FASTING 88 MG/DL (70-100); MB/CK RELATIVE INDEX 2.63 (< OR =4); POTASSIUM SERUM 3.8 MEQ/L (3.5-5.1); SODIUM LEVEL 139 MEQ/L (136-145); TOTAL PROTEIN 6.6 GM/DL (6.4-8.2); TROPONIN I < 0.02 NG/ML (< 0.10)
[2018-08-03 00:27] LABS: NT-PRO BNP 127 PG/ML (<125)
[2018-08-03] MEDS ORDERED: IPRATROPIUM 0.5MG/ALBUTEROL 2.5MG INH SOL UD 3ML (DUONEB)(J7620) NEB ONE (01:15)
[2018-08-03] MEDS ORDERED: MAGN1TAB26 PO (02:08)
[2018-08-03] MEDS ORDERED: ACET-897 PO (02:08)
[2018-08-03] MEDS ORDERED: ASPI-161 PO (02:08)
[2018-08-03] MEDS ORDERED: ACETAMINOPHEN TAB 650MG DOSE (2X325MG) PO PRN (03:15)
[2018-08-03] MEDS ORDERED: IPRATROPIUM 0.5MG/ALBUTEROL 2.5MG INH SOL UD 3ML (DUONEB)(J7620) NEB PRN (03:30)
--- NOTE | 2018-08-03 03:39 | HPEPDOC ---
[facility] Medical History & Physical Date of Admission Aug 03, 2018 Date of Service: Aug 03, 2018 History and Physical CHIEF COMPLAINT: SOB HISTORY OF PRESENT ILLNESS: Patient is a 53-year-old male with past medical history of COPD on 3 L home oxygen, hypertension, HFrEF presented to the ER with complaints of worsening SOB since the evening. He reports significant SOB when coming in but had improved after getting steroids and nebulizer treatment. Denies any particular triggers or any other complaints including fever, chills, chest pain. He is still wheezing but states that he is comfortable and is much better now. PAST MEDICAL HISTORY: Refer to [facility] PAST SURGICAL HISTORY: ligation of varicocele cardiac cath SOCIAL HISTORY: Denies tobacco, alcohol or illicit drug use. FAMILY HISTORY: Mother and father with HTN and CAD ALLERGIES: Please see below. REVIEW OF SYSTEMS: 10 point review of system negative except as stated in [facility] HOME MEDICATIONS: Please see below. PHYSICAL EXAMINATION: General: Minimal respiratory distress, speak in full sentences Eyes: Normal sclera, EOMI, SLICK HENT: Atraumatic, neck supple, moist mucous membranes Cardiovascular: Normal rate, normal rhythm. No murmurs appreciated. Pulmonary: diffuse b/l wheezing GI: Soft, nontender, nondistended Skin: Warm and dry Neuro: CN grossly intact. No focal deficits. Strengths equal b/l. Psych: oriented x 3 LABORATORY DATA: See below. MICROBIOLOGY: Please see below. ASSESSMENT AND PLAN: 1. COPD exacerbation - clinically improved. - c/w nebs, solumedrol. - O2 support as needed. Baseline 3L O2 via NC at home. - Saturating well at this time. - No ABG taken yet. Will get VBG. 2. HTN - Resume home meds. 3. CAD - Resume home meds. - No chest pain. 4. HFrEF - Follows with Dr. Lutz. - Reportedly improved over the years. DVT ppx: HSQ and SCD Code status: Full code Vital Signs Vital Signs Date Time Temp Pulse Resp B/P (MAP) Pulse Ox O2 Delivery O2 Flow Rate FiO2 08/02/18 23:37 82 22 98 Nasal Cannula 3.0 08/02/18 23:31 141/95 (110) 08/02/18 22:57 98.2 Laboratory Data Labs 24H Laboratory Tests 2 08/02/18 23:21: Immature Granulocyte % (Auto) 0.1, White Blood Count 6.7, Red Blood Count 3.85L, Hemoglobin 12.8L, Hematocrit 38.4L, Mean Corpuscular Volume 99.7H, Mean Corpuscular Hemoglobin 33.2H, Mean Corpuscular Hemoglobin Concent 33.3, Red Cell Distribution Width 13.6, Platelet Count 203, Neutrophils (%) (Auto) 53.7, Lymphocytes (%) (Auto) 34.8, Monocytes (%) (Auto) 9.3H, Eosinophils (%) (Auto) 1.5, Basophils (%) (Auto) 0.6, Neutrophils # (Auto) 3.6, Lymphocytes # (Auto) 2.3, Monocytes # (Auto) 0.6, Eosinophils # (Auto) 0.1, Basophils # (Auto) 0.0, Nucleated Red Blood Cells % (auto) 0.0, Anion Gap 11, Glomerular Filtration Rate > 60.0, Calcium Level 8.2L, Aspartate Amino Transf (AST/SGOT) 19, Alanine Aminotransferase (ALT/SGPT) 27, Alkaline Phosphatase 49, Total Bilirubin 0.3, Direct Bilirubin 0.1, Total Creatine Kinase 38L, Creatine Kinase MB < 1.0, Creatine Kinase MB Relative Index 2.63, Troponin I < 0.02, FM-Jds-A-Type Natriuretic Peptide 127H, Total Protein 6.6, Albumin 3.1L, Albumin/Globulin Ratio 0.89L, Thyroid Stimulating Hormone (TSH) 1.820 CBC/BMP Laboratory Tests 08/02/18 23:21 Red Blood Count 3.85 L, Mean Corpuscular Volume 99.7 H, Mean Corpuscular Hem oglobin 33.2 H, Mean Corpuscular Hemoglobin Concent 33.3, Red Cell Distribution Width 13.6, Neutrophils (%) (Auto) 53.7, Lymphocytes (%) (Auto) 34.8, Monocytes (%) (Auto) 9.3 H, Eosinophils (%) (Auto) 1.5, Basophils (%) (Auto) 0.6, Neutrophils # (Auto) 3.6, Lymphocytes # (Auto) 2.3, Monocytes # (Auto) 0.6, Eosinophils # (Auto) 0.1, Basophils # (Auto) 0.0 Home Medications Scheduled Aspirin (Aspirin EC) 81 Mg Tablet.dr, 81 MG PO DAILY Buspirone HCl (Buspirone HCl) 15 Mg Tab, 15 MG PO BID Carvedilol (Carvedilol) 12.5 Mg Tab, 12.5 MG PO BID Citalopram Hydrobromide (Citalopram HBr) 40 Mg Tablet, 40 MG PO DAILY Cyanocobalamin (Vitamin B-12) (Vitamin B-12) 1,000 Mcg Tab, 1,000 MCG PO DAILY Folic Acid (Folic Acid) 1 Mg Tab, 1 MG PO DAILY Ipratropium/Albuterol Sulfate (Iprat-Albut 0.5-3(2.5) mg/3 ml) 1 Bell Bell, 3 ML INH QID Levocetirizine Dihydrochloride (Levocetirizine Dihydrochloride) 5 Mg Tab, 5 MG PO DAILY Magnesium Oxide (Magnesium Oxide) 400 Mg Tablet, 400 MG PO DAILY Montelukast Sodium (Singulair) 10 Mg Tab, 10 MG PO DAILY Multivitamins (Thera M Plus Tablet) 1 Tab Tab, 1 TAB PO DAILY Oxybutynin Chloride (Oxybutynin Chloride ER) 5 Mg Tab, 5 MG PO DAILY Pantoprazole Sodium (Pantoprazole Sodium) 40 Mg Tab, 40 MG PO DAILY Salmeterol/Fluticasone (Advair 500-50 Diskus) 28 Puff/Inhaler Aerp, 1 PUFF INH BID Thiamine HCl (Vitamin B-1) 50 Mg Tab, 100 MG PO DAILY Triamcinolone Acetonide (Nasacort) 55 Mcg/Act Spr, 1 SPRAY NA DAILY Umeclidinium [place] (Incruse Ellipta) 62.5 Mcg/Inh Inh, 1 PUFF INH DAILY Scheduled PRN Acetaminophen (Tylenol Extra Strength) 500 Mg Tablet, 1,000 MG PO Q6H PRN for PAIN Albuterol Sulfate (Ventolin Hfa) 108 Mcg/Act Aer, 2 PUFFS INH Q4H PRN for SHORTNESS OF BREATH Clobetasol Propionate/Emoll (Clobetasol Emollient 0.05% Crm) 0.05 % Cre, 1 APLCT TOP BID PRN for RASH APPLIES TO AFFECTED AREAS ON HANDS Epinephrine (Epinephrine) 0.3 Mg/0.3 Ml Inj, 0.3 MG INJ ASDIRECTED PRN for ANAPHYLAXIS Hydroxyzine HCl (Hydroxyzine HCl) 25 Mg Tab, 25 MG PO TID PRN for ITCHING Naltrexone HCl (Naltrexone HCl) 50 Mg Tab, 50 MG PO BID PRN for CRAVING Polyvinyl Alcohol (Artificial Tears) 1.4 % Bell, 1 DROP OU QID PRN for DRY EYES Trazodone HCl (Trazodone HCl) 50 Mg Tablet, 50 MG PO QHS PRN for SLEEP Allergies Coded Allergies: azithromycin (Verified Allergy, Severe, ANAPHYLAXIS, 05/29/18) oseltamivir (Verified Allergy, Severe, ANAPHYLAXIS, 05/29/18) ROMULO Inhibitors (Verified Allergy, Intermediate, ANGIOEDEMA, 05/29/18) latex (Verified Allergy, Intermediate, HIVES, EDEMA, 05/29/18) SEASONAL ALLERGIES (Verified Allergy, Unknown, 04/07/18) A-FIB/CHADSVASC A-FIB History Current/History of A-Fib/PAF?: No KRISTINA JAUREGUI MD Aug 03, 2018 03:39
[2018-08-03] MEDS: HEPARIN SOD (PORCINE) 5000 UNITS/ML VIAL SC SCH ×3 (06:30→22:18)
[2018-08-03] MEDS: methylPREDNISolone INJ 125 MG/2 ML VIAL (J2930) IV SCH ×3 (06:30→22:17)
--- NOTE | 2018-08-03 07:35 | REP ---
Clinical: Cough and dyspnea . Comparison: 07/07/2018, 02/08/2018 Technique: PA and lateral. Findings: The mediastinum and cardiac silhouette are normal. The lung garcia are clear and without acute consolidation, effusion, or pneumothorax. Chronic area of linear opacity in the left mid/upper lung zone. The skeletal structures are intact and normal. Impression: 1. Chronic stable changes. No acute cardiopulmonary process. Electronically Signed by Flex Forrest MD 08/03/2018 01:35 A
[2018-08-03 07:58] LABS: HEMATOCRIT 39.2 % (42.0-52.0); MEAN CORPUSCULAR HEMOGLOBIN 32.3 pg (27.0-33.0); MEAN CORPUSCULAR HGB CONC 33.2 g/dl (32.0-36.5); MEAN CORPUSCULAR VOLUME 97.3 fl (80.0-96.0); PLATELET COUNT, AUTOMATED 205 10^3/uL (150-450); RED BLOOD COUNT 4.03 10^6/uL (4.30-6.10); WHITE BLOOD COUNT 3.9 10^3/uL (4.0-10.0)
[2018-08-03 08:06] LABS: BLOOD UREA NITROGEN 9 MG/DL (7-18); CARBON DIOXIDE LEVEL 26 MEQ/L (21-32); CHLORIDE LEVEL 102 MEQ/L (98-107); CREATININE FOR GFR 0.53 MG/DL (0.70-1.30); GLOMERULAR FILTRATION RATE > 60.0 (>56); GLUCOSE, FASTING 142 MG/DL (70-100); POTASSIUM SERUM 4.3 MEQ/L (3.5-5.1); SODIUM LEVEL 136 MEQ/L (136-145)
[2018-08-03] MEDS: IPRATROPIUM 0.5MG/ALBUTEROL 2.5MG INH SOL UD 3ML (DUONEB)(J7620) NEB SCH ×3 (08:15→18:16)
--- NOTE | 2018-08-03 11:21 | IPNPDOC ---
Subjective Date Seen The patient was seen on 08/03/18. Subjective Chief Complaint/HPI Patient lying on stretcher in the ER as I entered the room. He reports to be feeling better then he did on arrival. Breathing is improving Constitutional: Denies: Chills, Fever Pulmonary: Reports: Dyspnea (chronic), Cough; Denies: Pleuritic Chest Pain Cardiovascular: Denies: Chest Pain, Palpitations, Orthopnea, Edema Gastrointestinal: Denies: Nausea, Vomiting, Abdominal Pain Psych: Reports: Mood Normal Objective Physical Examination General Exam: Positive: Alert, Cooperative, No Acute Distress Eye Exam: Positive: Conjunctiva & lids normal Neck Exam: Positive: Supple; Negative: JVD, Lymphadenopathy Chest Exam: Positive: Wheezing; Negative: Rales, Rhonchi Heart Exam: Positive: Rate Normal Abdomen Exam: Positive: Normal bowel sounds, Soft; Negative: Tenderness Extremity Exam: Negative: Edema Psych Exam: Positive: Mood NL Assessment /Plan Problems (1) Asthma with acute exacerbation Status: Acute Problem Specific Plan: Monitor Clinically Problem Text: Initially he was thought to have a COPD exacerbation, and there may be a component of this, however, his primary pulmonary problem is difficult to control asthma and he has both inspiratory and expiratory wheezing. Started on Solumedrol 60 mg q 8 hours, continue with nebs and O2. (2) Chronic respiratory failure with hypoxia Status: Chronic Problem Text: Continue oxygen supplementation, nebs and steroids as above (3) Alcohol abuse Status: Chronic Problem Specific Plan: Monitor Clinically Problem Text: He reports that he is no longer drinking regularly, but that he will occasionally drink 2 or even 3 drinks in a day. He reports that he had two drinks the evening before admission. I am not certain of the veracity of this report. The [facility] protocol was initiated to make sure that IF he begins to withdraw we are prepared. (4) Hypertension Status: Chronic Response to Treatment: Stable Problem Text: Stable. We will continue home meds (5) Depression Status: Chronic Response to Treatment: Stable Problem Text: Continue with home meds Plan/VTE VTE Prophylaxis Ordered?: Yes (Heparin ) Plan Family Medicine Attending Note: I saw and examined Mr. Castillo, discussed with Lorenzo Grant DNP. Agree with her note as documented. I adjusted the admission diagnosis as noted above. He is stable and doing ok this evening. Continue current regimen, monitor. 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) VS, I&O, 24H, Fishbone Vital Signs/I&O Vital Signs Date Time Temp Pulse Resp B/P (MAP) Pulse Ox O2 Delivery O2 Flow Rate FiO2 08/03/18 07:35 73 18 132/92 (105) 95 Nasal Cannula 3.0 08/02/18 22:57 98.2 Laboratory Data 24H LABS Laboratory Tests 2 08/02/18 23:21: Immature Granulocyte % (Auto) 0.1, White Blood Count 6.7, Red Blood Count 3.85L, Hemoglobin 12.8L, Hematocrit 38.4L, Mean Corpuscular Volume 99.7H, Mean Corpuscular Hemoglobin 33.2H, Mean Corpuscular Hemoglobin Concent 33.3, Red Cell Distribution Width 13.6, Platelet Count 203, Neutrophils (%) (Auto) 53.7, Lymphocytes (%) (Auto) 34.8, Monocytes (%) (Auto) 9.3H, Eosinophils (%) (Auto) 1.5, Basophils (%) (Auto) 0.6, Neutrophils # (Auto) 3.6, Lymphocytes # (Auto) 2.3, Monocytes # (Auto) 0.6, Eosinophils # (Auto) 0.1, Basophils # (Auto) 0.0, Nucleated Red Blood Cells % (auto) 0.0, Anion Gap 11, Glomerular Filtration Rate > 60.0, Calcium Level 8.2L, Aspartate Amino Transf (AST/SGOT) 19, Alanine Aminot ransferase (ALT/SGPT) 27, Alkaline Phosphatase 49, Total Bilirubin 0.3, Direct Bilirubin 0.1, Total Creatine Kinase 38L, Creatine Kinase MB < 1.0, Creatine Kinase MB Relative Index 2.63, Troponin I < 0.02, GM-Hux-I-Type Natriuretic Peptide 127H, Total Protein 6.6, Albumin 3.1L, Albumin/Globulin Ratio 0.89L, Thyroid Stimulating Hormone (TSH) 1.820 08/03/18 07:11: Nucleated Red Blood Cells % (auto) 0.0, Anion Gap 8, Glomerular Filtration Rate > 60.0, Calcium Level 9.0, Blood Urea Nitrogen 9#, Creatinine 0.53L, Sodium Level 136, Potassium Level 4.3, Chloride Level 102, Carbon Dioxide Level 26 CBC/BMP Laboratory Tests 08/02/18 23:21 Red Blood Count 3.85 L, Mean Corpuscular Volume 99.7 H, Mean Corpuscular Hemoglobin 33.2 H, Mean Corpuscular Hemoglobin Concent 33.3, Red Cell Distribution Width 13.6, Neutrophils (%) (Auto) 53.7, Lymphocytes (%) (Auto) 34 .8, Monocytes (%) (Auto) 9.3 H, Eosinophils (%) (Auto) 1.5, Basophils (%) (Auto) 0.6, Neutrophils # (Auto) 3.6, Lymphocytes # (Auto) 2.3, Monocytes # (Auto) 0.6, Eosinophils # (Auto) 0.1, Basophils # (Auto) 0.0 08/03/18 07:11 Red Blood Count 4.03 L, Mean Corpuscular Volume 97.3 H, Mean Corpuscular Hemoglobin 32.3, Mean Corpuscular Hemoglobin Concent 33.2, Red Cell Distribution Width 13.4, Calcium Level 9.0 LORENZO GRANT Aug 03, 2018 11:21 Selwyn Johnson MD Aug 03, 2018 20:36
[2018-08-03 14:00] VITALS: BP 150/87
[2018-08-03] MEDS ORDERED: LORazepam 2 MG TAB PO PRN (18:15)
[2018-08-03] MEDS: THIAMINE 100 MG TAB PO SCH (18:41)
[2018-08-03 20:57] VITALS: BP 180/88
[2018-08-03 21:00] VITALS: BP 157/98
[2018-08-03 21:03] VITALS: BP 150/88
[2018-08-04] MEDS: IPRATROPIUM 0.5MG/ALBUTEROL 2.5MG INH SOL UD 3ML (DUONEB)(J7620) NEB SCH ×4 (01:19→19:30)
[2018-08-04] MEDS: methylPREDNISolone INJ 125 MG/2 ML VIAL (J2930) IV SCH ×3 (05:37→21:12)
[2018-08-04] MEDS: HEPARIN SOD (PORCINE) 5000 UNITS/ML VIAL SC SCH ×3 (05:37→21:13)
[2018-08-04 06:32] VITALS: BP 157/99
[2018-08-04 06:49] VITALS: BP 157/99
[2018-08-04 06:53] LABS: HEMOGLOBIN 12.4 g/dl (13.5-17.5); MEAN CORPUSCULAR HEMOGLOBIN 32.5 pg (27.0-33.0); MEAN CORPUSCULAR HGB CONC 33.5 g/dl (32.0-36.5); MEAN CORPUSCULAR VOLUME 96.9 fl (80.0-96.0); PLATELET COUNT, AUTOMATED 191 10^3/uL (150-450); RED BLOOD COUNT 3.82 10^6/uL (4.30-6.10); WHITE BLOOD COUNT 7.7 10^3/uL (4.0-10.0)
[2018-08-04 07:17] LABS: BLOOD UREA NITROGEN 11 MG/DL (7-18); CALCIUM LEVEL 8.9 MG/DL (8.5-10.1); CARBON DIOXIDE LEVEL 25 MEQ/L (21-32); CHLORIDE LEVEL 104 MEQ/L (98-107); CREATININE FOR GFR 0.61 MG/DL (0.70-1.30); GLOMERULAR FILTRATION RATE > 60.0 (>56); GLUCOSE, FASTING 142 MG/DL (70-100); POTASSIUM SERUM 3.8 MEQ/L (3.5-5.1); SODIUM LEVEL 137 MEQ/L (136-145)
--- NOTE | 2018-08-04 08:28 | ECGEPIP ---
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
[2018-08-04] MEDS ORDERED: THIAMINE 100 MG TAB PO SCH (09:00)
[2018-08-04] MEDS ORDERED: MULTIVITAMINS/MINERALS THERAP 1 TAB PO SCH (09:00)
[2018-08-04] MEDS: MULTIVITAMINS/MINERALS THERAP 1 TAB PO SCH (09:36)
[2018-08-04] MEDS: FOLIC ACID 1 MG TAB PO SCH (09:36)
[2018-08-04] MEDS: THIAMINE 100 MG TAB PO SCH ×2 (09:36→21:12)
[2018-08-04] MEDS ORDERED: NALTREXONE 50 MG TAB PO PRN (12:00)
[2018-08-04] MEDS ORDERED: traZODone 50 MG TAB PO PRN (12:00)
[2018-08-04] MEDS ORDERED: POLYVINYL ALCOHOL OPHTH SOLN 15 ML(LIQUITEARS) OU PRN (12:00)
[2018-08-04] MEDS ORDERED: hydrOXYzine 25 MG TAB PO PRN (12:00)
[2018-08-04 14:00] VITALS: BP 140/80
[2018-08-04] MEDS: CYANOCOBALAMIN 500 MCG TAB PO SCH (14:24)
[2018-08-04] MEDS: oxyBUTYnin *DITROPAN XL* 5 MG TABCR PO SCH (14:26)
[2018-08-04] MEDS: MONTELUKAST 10 MG TAB PO SCH (14:26)
[2018-08-04] MEDS: busPIRone 5 MG TAB PO SCH ×2 (14:26→21:12)
[2018-08-04] MEDS: PANTOPRAZOLE 40MG TAB (PROTONIX) PO SCH (14:27)
[2018-08-04] MEDS: CARVedilol 12.5 MG TAB PO SCH ×2 (14:28→21:12)
[2018-08-04] MEDS: ADVAIR HFA 230/21MCG INHALER INH SCH ×2 (14:31→19:30)
[2018-08-04 15:06] VITALS: BP 140/84
[2018-08-04 20:59] VITALS: BP 136/91
[2018-08-04 21:00] VITALS: BP 136/91
[2018-08-05] MEDS: IPRATROPIUM 0.5MG/ALBUTEROL 2.5MG INH SOL UD 3ML (DUONEB)(J7620) NEB SCH ×4 (01:01→20:00)
--- NOTE | 2018-08-05 01:13 | IPNPDOC ---
Subjective Date Seen The patient was seen on 08/04/18. Subjective Chief Complaint/HPI dyspnea Events since last encounter He reports that he thinks his breathing has been slowly improving. Admits to persistent wheeze and dyspnea, though. Otherwise reports that he is feeling well. Nursing states that they have not needed to give him any prns on the CIWA scale. Constitutional: Denies: Chills, Fever Pulmonary: Reports: Dyspnea, Cough, Other Symptoms (wheeze) Cardiovascular: Denies: Chest Pain, Palpitations Gastrointestinal: Denies: Nausea, Vomiting, Abdominal Pain, Diarrhea, Constipation Neurological: Reports: Weakness Psych: Reports: Mood Normal Objective Physical Examination General Exam: Positive: Alert, Cooperative, No Acute Distress Eye Exam: Positive: Conjunctiva & lids normal Neck Exam: Positive: Supple; Negative: JVD, Lymphadenopathy Chest Exam: Positive: Wheezing; Negative: Rales, Rhonchi Heart Exam: Positive: Rate Normal Abdomen Exam: Positive: Normal bowel sounds, Soft; Negative: Tenderness Extremity Exam: Negative: Edema Psych Exam: Positive: Mood NL Assessment /Plan Problems (1) Asthma with acute exacerbation Status: Acute Problem Specific Plan: Monitor Clinically Problem Text: Initially he was thought to have a COPD exacerbation, and there may be a component of this, however, his primary pulmonary problem is difficult to control asthma and he has both inspiratory and expiratory wheezing. Started on Solumedrol 60 mg q 8 hours, continue with nebs and O2. (2) Chronic respiratory failure with hypoxia Status: Chronic Problem Text: Continue oxygen supplementation, nebs and steroids as above (3) Alcohol abuse Status: Chronic Problem Specific Plan: Monitor Clinically Problem Text: 08/04: Consistent with his history of decreased ETOH intake, nursing reports that he has not required any prns so far. He reports that he is no longer drinking regularly, but that he will occasionally drink 2 or even 3 drinks in a day. He reports that he had two drinks the evening before admission. I am not certain of the veracity of this report. The CIWA protocol was initiated to make sure that IF he begins to withdraw we are prepared. (4) Hypertension Status: Chronic Response to Treatment: Stable Problem Text: Stable. We will continue home meds (5) Depression Status: Chronic Response to Treatment: Stable Problem Text: Continue with home meds Plan/VTE VTE Prophylaxis Ordered?: Yes (Heparin ) VS, I&O, 24H, Fishbone Vital Signs/I&O Vital Signs Date Time Temp Pulse Resp B/P (MAP) Pulse Ox O2 Delivery O2 Flow Rate FiO2 08/04/18 21:12 65 136/91 08/04/18 21:00 3.0 08/04/18 20:59 98.8 18 95 08/03/18 12:41 Nasal Cannula I&O- Last 24 Hours up to 6 AM 08/05/18 06:00 Intake Total 120 ml Output Total 0 ml Balance 120 ml Laboratory Data 24H LABS Laboratory Tests 2 08/04/18 06:37: Nucleated Red Blood Cells % (auto) 0.0, Anion Gap 8, Glomerular Filtration Rate > 60.0, Blood Urea Nitrogen 11, Creatinine 0.61L, Sodium Level 137, Potassium Level 3.8, Chloride Level 104, Carbon Dioxide Level 25, Calcium Level 8.9 CBC/BMP Laboratory Tests 08/04/18 06:37 Red Blood Count 3.82 L, Mean Corpuscular Volume 96.9 H, Mean Corpuscular Hemoglobin 32.5, Mean Corpuscular Hemoglobin Concent 33.5, Red Cell Distribution Width 13.1, Calcium Level 8.9 Microbiology Microbiology 08/03/18 MRSA Screen, Received Pending MOY MCGEE DO Aug 05, 2018 01:13
[2018-08-05] MEDS: methylPREDNISolone INJ 125 MG/2 ML VIAL (J2930) IV SCH ×3 (06:00→21:09)
[2018-08-05] MEDS: HEPARIN SOD (PORCINE) 5000 UNITS/ML VIAL SC SCH ×3 (06:00→21:09)
[2018-08-05 06:14] VITALS: BP 157/99
[2018-08-05] MEDS: ADVAIR HFA 230/21MCG INHALER INH SCH ×2 (06:21→20:55)
[2018-08-05 06:34] LABS: HEMATOCRIT 37.9 % (42.0-52.0); HEMOGLOBIN 12.4 g/dl (13.5-17.5); MEAN CORPUSCULAR HGB CONC 32.7 g/dl (32.0-36.5); MEAN CORPUSCULAR VOLUME 100.8 fl (80.0-96.0); PLATELET COUNT, AUTOMATED 172 10^3/uL (150-450); RED BLOOD COUNT 3.76 10^6/uL (4.30-6.10)
[2018-08-05 06:58] LABS: BLOOD UREA NITROGEN 12 MG/DL (7-18); CALCIUM LEVEL 8.8 MG/DL (8.5-10.1); CARBON DIOXIDE LEVEL 28 MEQ/L (21-32); CHLORIDE LEVEL 104 MEQ/L (98-107); GLOMERULAR FILTRATION RATE > 60.0 (>56); GLUCOSE, FASTING 102 MG/DL (70-100); POTASSIUM SERUM 3.7 MEQ/L (3.5-5.1); SODIUM LEVEL 139 MEQ/L (136-145)
[2018-08-05 08:00] VITALS: BP 157/99
[2018-08-05] MEDS: THIAMINE 100 MG TAB PO SCH ×2 (08:34→21:10)
[2018-08-05] MEDS: MULTIVITAMINS/MINERALS THERAP 1 TAB PO SCH (08:34)
[2018-08-05] MEDS: PANTOPRAZOLE 40MG TAB (PROTONIX) PO SCH (08:35)
[2018-08-05] MEDS: MONTELUKAST 10 MG TAB PO SCH (08:35)
[2018-08-05] MEDS: busPIRone 5 MG TAB PO SCH ×2 (08:35→21:10)
[2018-08-05] MEDS: CARVedilol 12.5 MG TAB PO SCH ×2 (08:35→21:10)
[2018-08-05] MEDS: CYANOCOBALAMIN 500 MCG TAB PO SCH (08:35)
[2018-08-05] MEDS: FOLIC ACID 1 MG TAB PO SCH (08:35)
[2018-08-05] MEDS: oxyBUTYnin *DITROPAN XL* 5 MG TABCR PO SCH (08:35)
[2018-08-05 10:36] VITALS: BP 152/90
[2018-08-05 14:42] VITALS: BP 151/90
[2018-08-05] MEDS: guaiFENesin 200 MG TAB PO SCH ×2 (21:09→23:38)
[2018-08-05 22:00] VITALS: BP 151/90
[2018-08-06] MEDS: IPRATROPIUM 0.5MG/ALBUTEROL 2.5MG INH SOL UD 3ML (DUONEB)(J7620) NEB SCH ×4 (01:11→20:38)
[2018-08-06 02:00] VITALS: BP 151/90
--- NOTE | 2018-08-06 03:59 | IPNPDOC ---
Subjective Date Seen The patient was seen on 08/06/18. Subjective Chief Complaint/HPI He feels that his breathing is significantly improved, and hopes to go home soon. Constitutional: Denies: Chills, Fever Pulmonary: Reports: Cough; Denies: Dyspnea Cardiovascular: Denies: Chest Pain Gastrointestinal: Reports: Constipation; Denies: Nausea, Vomiting, Diarrhea Objective Physical Examination General Exam: Positive: Alert, Cooperative, No Acute Distress Eye Exam: Positive: Conjunctiva & lids normal Neck Exam: Positive: Supple; Negative: JVD, Lymphadenopathy Chest Exam: Negative: Rales, Rhonchi, Wheezing Heart Exam: Positive: Rate Normal Abdomen Exam: Positive: Normal bowel sounds, Soft; Negative: Tenderness Extremity Exam: Negative: Edema Psych Exam: Positive: Mood NL Assessment /Plan Problems (1) Asthma with acute exacerbation Status: Acute Problem Specific Plan: Monitor Clinically Problem Text: 08/05 -- much improved. Cut down on Solumedrol. Initially he was thought to have a COPD exacerbation, and there may be a component of this, however, his primary pulmonary problem is difficult to control asthma and he has both inspiratory and expiratory wheezing. Started on Solumedrol 60 mg q 8 hours, continue with nebs and O2. (2) Chronic respiratory failure with hypoxia Status: Chronic Problem Text: Continue oxygen supplementation, nebs and steroids as above (3) Alcohol abuse Status: Chronic Problem Specific Plan: Monitor Clinically Problem Text: 08/04: Consistent with his history of decreased ETOH intake, nursing reports that he has not required any prns so far. He reports that he is no longer drinking regularly, but that he will occasionally drink 2 or even 3 drinks in a day. He reports that he had two drinks the evening before admission. I am not certain of the veracity of this report. The [facility] protocol was initiated to make sure that IF he begins to withdraw we are prepared. (4) Hypertension Status: Chronic Response to Treatment: Stable Problem Text: Stable. We will continue home meds (5) Depression Status: Chronic Response to Treatment: Stable Problem Text: Continue with home meds Plan/VTE VTE Prophylaxis Ordered?: Yes (Heparin ) VS, I&O, 24H, Fishbone Vital Signs/I&O Vital Signs Date Time Temp Pulse Resp B/P (MAP) Pulse Ox O2 Delivery O2 Flow Rate FiO2 08/06/18 02:00 98.7 68 18 151/90 (110) 95 08/05/18 21:00 3.0 08/03/18 12:41 Nasal Cannula I&O- Last 24 Hours up to 6 AM 08/06/18 06:00 Intake Total 670 ml Balance 670 ml Laboratory Data 24H LABS Laboratory Tests 2 08/05/18 05:55: Nucleated Red Blood Cells % (auto) 0.0, Anion Gap 7L, Glomerular Filtration Rate > 60.0, Blood Urea Nitrogen 12, Creatinine 0.50L, Sodium Level 139, Potassium Level 3.7, Chloride Level 104, Carbon Dioxide Level 28, Calcium Level 8.8 CBC/BMP Laboratory Tests 08/05/18 05:55 Red Blood Count 3.76 L, Mean Corpuscular Volume 100.8 H, Mean Corpuscular Hemoglobin 33.0, Mean Corpuscular Hemoglobin Concent 32.7, Red Cell Distribution Width 13.2, Calcium Level 8.8 Microbiology Microbiology 08/03/18 MRSA Screen - Final, Complete Staph.aureus Methicillin Resis MOY MCGEE DO Aug 06, 2018 03:59
[2018-08-06] MEDS: guaiFENesin 200 MG TAB PO SCH ×4 (05:33→22:48)
[2018-08-06] MEDS: HEPARIN SOD (PORCINE) 5000 UNITS/ML VIAL SC SCH ×3 (05:33→22:49)
[2018-08-06 06:00] VITALS: BP 150/91
[2018-08-06] MEDS: ADVAIR HFA 230/21MCG INHALER INH SCH ×2 (07:33→20:38)
[2018-08-06] MEDS: busPIRone 5 MG TAB PO SCH ×2 (08:45→22:48)
[2018-08-06] MEDS: THIAMINE 100 MG TAB PO SCH (08:46)
[2018-08-06] MEDS: MONTELUKAST 10 MG TAB PO SCH (08:46)
[2018-08-06] MEDS: FOLIC ACID 1 MG TAB PO SCH (08:46)
[2018-08-06] MEDS: CARVedilol 12.5 MG TAB PO SCH ×2 (08:46→22:49)
[2018-08-06] MEDS: oxyBUTYnin *DITROPAN XL* 5 MG TABCR PO SCH (08:46)
[2018-08-06] MEDS: CYANOCOBALAMIN 500 MCG TAB PO SCH (08:46)
[2018-08-06] MEDS: PANTOPRAZOLE 40MG TAB (PROTONIX) PO SCH (08:46)
[2018-08-06] MEDS: MULTIVITAMINS/MINERALS THERAP 1 TAB PO SCH (08:46)
[2018-08-06] MEDS: methylPREDNISolone INJ 125 MG/2 ML VIAL (J2930) IV SCH ×2 (08:47→22:47)
--- NOTE | 2018-08-06 09:13 | IPNPDOC ---
Subjective Date Seen The patient was seen on 08/06/18. Subjective Chief Complaint/HPI Pt this morning states that he is finally feeling a lot better. He is less SOB, cough has also improved. General: Reports: Fatigue Constitutional: Denies: Chills, Fever ENT: Denies: Head Aches Pulmonary: Reports: Dyspnea, Cough Cardiovascular: Denies: Chest Pain, Palpitations Gastrointestinal: Denies: Nausea, Vomiting, Abdominal Pain Neurological: Reports: Weakness Psych: Reports: Mood Normal Objective Physical Examination General Exam: Positive: Alert, Cooperative, No Acute Distress Neck Exam: Positive: Supple; Negative: JVD, Lymphadenopathy Chest Exam: Positive: Wheezing (+ exp wheeze, prolonged expiration); Negative: Rales, Rhonchi Heart Exam: Positive: Rate Normal Abdomen Exam: Positive: Normal bowel sounds, Soft; Negative: Tenderness Extremity Exam: Negative: Edema Neuro Exam: Positive: Normal Speech Psych Exam: Positive: Mood NL Assessment /Plan Problems (1) Asthma with acute exacerbation Status: Acute Problem Specific Plan: Monitor Clinically Problem Text: 08/06 SOlumedrol 60 mg BID, decreased from TID yest, anticipate changing to PO in AM, cont with nebs, O2 08/05 -- much improved. Cut down on Solumedrol. Initially he was thought to have a COPD exacerbation, and there may be a component of this, however, his primary pulmonary problem is difficult to control asthma and he has both inspiratory and expiratory wheezing. Started on Solumedrol 60 mg q 8 hours, continue with nebs and O2. 04/2018 MRSA PN (08/03/18 + MRSA screen, no BCX/SCX done, on no abx, 08/06 WBC to 11 but AF, tf) (2) Chronic respiratory failure with hypoxia Status: Chronic Problem Text: Continue oxygen supplementation, nebs and steroids as above (3) Alcohol abuse Status: Chronic Problem Specific Plan: Monitor Clinically Problem Text: 08/04: Consistent with his history of decreased ETOH intake, nursing reports that he has not required any prns so far. He reports that he is no longer drinking regularly, but that he will occasionally drink 2 or even 3 drinks in a day. He reports that he had two drinks the evening before admission. I am not certain of the veracity of this report. The [facility] protocol was initiated to make sure that IF he begins to withdraw we are prepared. (4) Hypertension Status: Chronic Response to Treatment: Stable Problem Text: Stable. We will continue home meds (5) Depression Status: Chronic Response to Treatment: Stable Problem Text: Continue with home meds (6) Physical deconditioning Problem Text: on home mobility and on HD O2 3L NC Plan/VTE VTE Prophylaxis Ordered?: Yes (Heparin ) VS, I&O, 24H, Fishbone Vital Signs/I&O Vital Signs Date Time Temp Pulse Resp B/P (MAP) Pulse Ox O2 Delivery O2 Flow Rate FiO2 08/06/18 08:46 62 150/91 08/06/18 06:00 98.6 14 94 3.0 08/03/18 12:41 Nasal Cannula I&O- Last 24 Hours up to 6 AM 08/06/18 06:00 Intake Total 670 ml Balance 670 ml Laboratory Data Microbiology Microbiology 08/03/18 MRSA Screen - Final, Complete Staph.aureus Methicillin Resis REBECCA WRIGHT PA-C Aug 06, 2018 09:13 Miki Laird M.D. Aug 06, 2018 15:39
[2018-08-06 10:00] VITALS: BP 140/98
[2018-08-06 14:00] VITALS: BP 150/90
[2018-08-06 18:00] VITALS: BP 151/86
[2018-08-06 22:00] VITALS: BP 162/96
[2018-08-07 02:00] VITALS: BP 168/108
[2018-08-07] MEDS: IPRATROPIUM 0.5MG/ALBUTEROL 2.5MG INH SOL UD 3ML (DUONEB)(J7620) NEB SCH ×2 (02:14→07:34)
[2018-08-07] MEDS: HEPARIN SOD (PORCINE) 5000 UNITS/ML VIAL SC SCH (05:38)
[2018-08-07] MEDS: guaiFENesin 200 MG TAB PO SCH (05:38)
[2018-08-07 06:00] VITALS: BP 143/92
[2018-08-07 07:04] LABS: BASO % 0.1 % (0.0-1.0); HEMATOCRIT 37.8 % (42.0-52.0); HEMOGLOBIN 12.7 g/dl (13.5-17.5); LYMPH # 1.1 10^3/uL (1.5-4.5); LYMPH % 9.1 % (24.0-44.0); MEAN CORPUSCULAR HEMOGLOBIN 33.6 pg (27.0-33.0); MEAN CORPUSCULAR HGB CONC 33.6 g/dl (32.0-36.5); MONO # 0.6 10^3/uL (0.0-0.8); MONO % 4.6 % (0.0-5.0); NEUTROPHILS # 10.1 10^3/uL (1.8-7.7); NEUTROPHILS % 84.5 % (36.0-66.0); PLATELET COUNT, AUTOMATED 140 10^3/uL (150-450); RED BLOOD COUNT 3.78 10^6/uL (4.30-6.10)
[2018-08-07] MEDS: ADVAIR HFA 230/21MCG INHALER INH SCH (07:34)
[2018-08-07] MEDS: MULTIVITAMINS/MINERALS THERAP 1 TAB PO SCH (08:30)
[2018-08-07] MEDS: busPIRone 5 MG TAB PO SCH (08:30)
[2018-08-07] MEDS: methylPREDNISolone INJ 125 MG/2 ML VIAL (J2930) IV SCH (08:30)
[2018-08-07] MEDS: FOLIC ACID 1 MG TAB PO SCH (08:31)
[2018-08-07] MEDS: oxyBUTYnin *DITROPAN XL* 5 MG TABCR PO SCH (08:31)
[2018-08-07] MEDS: MONTELUKAST 10 MG TAB PO SCH (08:31)
[2018-08-07] MEDS: CYANOCOBALAMIN 500 MCG TAB PO SCH (08:31)
[2018-08-07] MEDS: PANTOPRAZOLE 40MG TAB (PROTONIX) PO SCH (08:31)
[2018-08-07 08:32] VITALS: BP 155/102
[2018-08-07] MEDS: CARVedilol 12.5 MG TAB PO SCH (08:32)
[2018-08-07] MEDS ORDERED: PRED10TA2 PO (08:39)
--- NOTE | 2018-08-07 09:06 | DSES ---
DATE OF ADMISSION: 08/03/2018 DATE OF DISCHARGE: 08/07/2018 PRIMARY CARE PROVIDER: JOSELITO Marks ATTENDING PROVIDER: Miki Laird MD HISTORY: This is a 53-year-old male patient who follows with [facility], Nano Sanderson, who presented to [facility] Emergency Room with increasing shortness of breath since the evening prior. He has a history of chronic obstructive pulmonary disease (COPD) with exacerbation. He had been using his nebulizer at home, although was not finding any improvement. He had improvement after receiving steroids and nebulizers in the emergency room, and admission was arranged. During his hospitalization, he remained medically stable. He has been treated with intravenous (IV) steroids, as well as nebulizers and oxygen. His oxygen is weaned to his baseline of 3 liters per nasal cannula. His Solu-Medrol will be transitioned to oral with a taper. He has mild leukocytosis, although this is likely secondary to a steroid effect. His diagnoses include: 1. Asthma with acute exacerbation. 2. Chronic respiratory failure with hypoxemia. 3. Alcohol abuse. 4. Hypertension. 5. Depression. 6. Physical deconditioning. DISCHARGE MEDICATIONS: Include: - prednisone 40 mg daily times 3 days, then 30 times 3 days, then 20 times 3 days, then 10 times 3 days - acetaminophen 1000 mg every 6 hours as needed for pain - albuterol sulfate - Ventolin two puffs inhaled every 4 hours as needed for shortness of breath - aspirin 81 mg daily - BuSpar 15 mg by mouth twice a day - carvedilol 12.5 mg by mouth twice a day - citalopram 40 mg daily - clobetasol 0.05% topically twice daily as needed for rash - B12 1000 mcg daily - folic acid 1 mg by mouth daily - hydroxyzine 25 mg by mouth three times daily as needed for itching - DuoNebs inhaled four times daily and every 2 hours as needed for shortness of breath - Xyzal 5 mg by mouth daily - magnesium oxide 400 mg by mouth daily - Singulair 10 mg by mouth daily - multivitamin one tablet daily - naltrexone 50 mg by mouth twice a day as needed for cravings - oxybutynin 5 mg by mouth daily - Protonix 40 mg daily - artifical tears one drop each eye four times daily - Advair 500/50 one inhalation twice a day - thiamine 100 mg by mouth daily - trazodone 50 mg by mouth nightly as needed for sleep - triamcinolone acetonide one spray intranasally daily - Incruse Ellipta 62.5 mcg one puff inhaled daily DISCHARGE PLAN: Will be to followup with Nano Sanderson in 1 week. Activity should be as tolerated. Diet is regular. edited: 08/08/2018 0739 tkf MTDD
== END 2018-08-07 10:10 | disposition home or self-care (01) | DRG 141 ==
LOC: M ED 22:37 → M ED INP 08-03 03:15 → M MS5PR 08-03 12:45
PROVIDERS: ADMIT Student in an Organized Health Care Education/Training Program; ATTEND Family Medicine
DX: J45.901 Unspecified asthma with (acute) exacerbation (principal); J96.11 Chronic respiratory failure with hypoxia; Z99.81 Dependence on supplemental oxygen; J44.1 Chronic obstructive pulmonary disease with (acute) exacerbation; F32.9 Major depressive disorder, single episode, unspecified; I10 Essential (primary) hypertension; F10.10 Alcohol abuse, uncomplicated; Z79.82 Long term (current) use of aspirin; Z79.899 Other long term (current) drug therapy; Z88.1 Allergy status to other antibiotic agents; Z88.8 Allergy status to other drugs, medicaments and biological substances; Z91.040 Latex allergy status

== ENCOUNTER → 2018-08-21 | Outpatient (CLI) | payer OTHER ==
[~2018-08-21] MED LIST changes: +ACET-897 PO; +AMLO5TAB6 PO; +ASPI-161 PO; +MAGN1TAB26 PO; +MUCI600T31 PO; +NICO1DIS10 TD; +OLOP0.1D OU
--- NOTE | 2018-08-21 08:41 | REP ---
Nickel: Follow up abnormal lung findings. Technique: Axial noncontrast images from the thoracic inlet to the upper abdomen with coronal and sagittal re-formations. Comparison: 05/16/2018. Findings: Previously identified left upper lobe pneumonia has essentially completely resolved although minimal residual subtle areas of opacity and suspected interstitial scarring at the site of prior pneumonia are identified. Remainder of the lung garcia are well-aerated and demonstrate mild stable chronic age-related subtle changes along with findings to suggest a very mild emphysematous disease. No new area of consolidation, significant nodule or mass lesion noted. No pleural effusion. No pneumothorax. Tracheobronchial tree is patent. No obvious adenopathy. The mediastinum demonstrates relatively normal thoracic aorta, heart and pericardium. Surrounding musculoskeletal structures are intact without focal abnormality. Limited upper abdomen demonstrates normal bilateral adrenal glands. Impression: 1. Essentially complete resolution to the previously noted left upper lobe pneumonia with minimal suspected chronic changes now appreciated in the left upper lobe. 2. Mild chronic stable changes including very subtle emphysematous change. Electronically Signed by Flex Forrest MD 08/21/2018 08:32 A
== END ==
LOC: M RAD 07:43
PROVIDERS: ATTEND Physician Assistant
DX: R91.1 Solitary pulmonary nodule (principal)

== ENCOUNTER 2018-08-22 14:31 | Inpatient (IN) | payer OTHER ==
[~2018-08-22] VITALS: Ht 180.3 cm; Wt 74.1 kg
[~2018-08-22 14:31] MED LIST changes: -AMLO5TAB6 PO; -MUCI600T31 PO; -NICO1DIS10 TD; -OLOP0.1D OU
[2018-08-22] MEDS ORDERED: MUCI600T31 PO (14:47)
[2018-08-22] MEDS ORDERED: FAMOTIDINE INJ 20MG/2ML VIAL (S0028) IVP ONE (15:00)
[2018-08-22] MEDS ORDERED: methylPREDNISolone INJ 125 MG/2 ML VIAL (J2930) IV ONE (15:00)
[2018-08-22] MEDS: ALBUTEROL SULFATE 2.5 MG/0.5 ML INH NEB SOLN NEB SCH ×3 (15:04→16:11)
[2018-08-22] MEDS ORDERED: NICO1DIS10 TD (15:05)
[2018-08-22 15:08] LABS: BASO % 0.2 % (0.0-1.0); EOS # 0.1 10^3/uL (0.0-0.50); EOS % 1.2 % (0.0-3.0); HEMATOCRIT 43.4 % (42.0-52.0); HEMOGLOBIN 14.4 g/dl (13.5-17.5); LYMPH # 2.5 10^3/uL (1.5-4.5); LYMPH % 30.9 % (24.0-44.0); MEAN CORPUSCULAR HEMOGLOBIN 33.6 pg (27.0-33.0); MEAN CORPUSCULAR HGB CONC 33.2 g/dl (32.0-36.5); MEAN CORPUSCULAR VOLUME 101.2 fl (80.0-96.0); MONO # 0.8 10^3/uL (0.0-0.8); MONO % 9.6 % (0.0-5.0); NEUTROPHILS # 4.6 10^3/uL (1.8-7.7); NEUTROPHILS % 57.7 % (36.0-66.0); PLATELET COUNT, AUTOMATED 180 10^3/uL (150-450); RED BLOOD COUNT 4.29 10^6/uL (4.30-6.10)
[2018-08-22 15:27] LABS: BLOOD UREA NITROGEN 11 MG/DL (7-18); CALCIUM LEVEL 8.9 MG/DL (8.5-10.1); CARBON DIOXIDE LEVEL 25 MEQ/L (21-32); CHLORIDE LEVEL 108 MEQ/L (98-107); GLOMERULAR FILTRATION RATE > 60.0 (>56); GLUCOSE, FASTING 163 MG/DL (70-100); POTASSIUM SERUM 4.2 MEQ/L (3.5-5.1); SODIUM LEVEL 141 MEQ/L (136-145)
--- NOTE | 2018-08-22 15:58 | REP ---
Clinical: Cough and dyspnea . Comparison: 08/02/2018. Technique: PA and lateral. Findings: The mediastinum and cardiac silhouette are normal. The lung garcia are clear and without acute consolidation, effusion, or pneumothorax. The skeletal structures are intact and normal. Impression: 1. No acute cardiopulmonary process. Electronically Signed by Flex Forrest MD 08/22/2018 03:50 P
[2018-08-22] MEDS ORDERED: diphenhydrAMINE 25 MG CAP PO PRN (21:00)
[2018-08-22] MEDS ORDERED: CARVedilol 12.5 MG TAB PO SCH (21:00)
[2018-08-22] MEDS ORDERED: hydrOXYzine 25 MG TAB PO PRN (21:00)
[2018-08-22] MEDS ORDERED: CLOBETASOL PROPIONATE EMOLLIENT 0.05% CR 60 GM TOP PRN (21:00)
[2018-08-22] MEDS ORDERED: NALTREXONE 50 MG TAB PO PRN (21:00)
[2018-08-22] MEDS ORDERED: IPRATROPIUM 0.5MG/ALBUTEROL 2.5MG INH SOL UD 3ML (DUONEB)(J7620) INH PRN (21:00)
[2018-08-22] MEDS ORDERED: traZODone 50 MG TAB PO PRN (21:00)
[2018-08-22] MEDS: ADVAIR HFA 230/21MCG INHALER INH SCH (21:00)
[2018-08-22] MEDS ORDERED: ACETAMINOPHEN 500 MG TAB PO PRN (21:00)
[2018-08-22] MEDS ORDERED: ALBUTEROL 90 MCG/ACT 8GM HFA INHALER INH PRN (21:00)
[2018-08-22] MEDS ORDERED: busPIRone 5 MG TAB PO SCH (21:00)
[2018-08-22] MEDS ORDERED: FAMOTIDINE 20 MG TAB PO SCH (21:00)
[2018-08-22] MEDS ORDERED: POLYVINYL ALCOHOL OPHTH SOLN 15 ML(LIQUITEARS) OU PRN (21:00)
--- NOTE | 2018-08-22 21:14 | HPEPDOC ---
[facility] Medical History & Physical Date of Admission Aug 22, 2018 Date of Service: Aug 22, 2018 History and Physical PCP:Ana Cristina Sanderson CHIEF COMPLAINT: Facial swelling HISTORY OF PRESENT ILLNESS: Patient is a 53 man who was struggled with allergies throughout his entire life, he has seen neurologists in the past and has been told he is allergic to almost everything. He was recently hospitalized for decapitation of his COPD 08/03 through 08/07. He had been doing well at home in his usual state of health utilizing baseline 3 L O2 as needed. He tells me he woke this morning and had significant allergies with itchy eyes he tended. Neck earlier today was outside for quite a bit time and noticed that his allergies progressively got worse and worse noticing intense swelling of his eyes bilate rally starting with the upper lids, he subsequently noticed swelling of his lips as well in addition to the area of his sternocleidomastoid bilaterally. The patient did not have any shortness of breath however he didn't feel as though he was concerned of progression and EMS was called. He did not utilize his own EpiPen he did receive use of an EpiPen through EMS as well as receiving Benadryl on Ambien try to the hospital he did have a rash with intense itching throughout his body that was fairly diffuse. At this time the patient tells me that it is resolving and swelling in his eyes better the rash is gone but he certainly not back to normal yet. Otherwise patient denies weight loss, hair loss, headache, visual changes, chest pain, shortness of breath, cough, nausea, vomiting, diarrhea, abdominal pain, muscle aches, worsening arthritis, change in mood PAST MEDICAL HISTORY: 1. COPD chronic hypoxic respiratory failure baseline 3 L O2. 2. Alcohol use. 3. Hypertension 4 mood disorder 6 congestive heart failure 7 tobacco abuse 8. Environmental allergies 9. Anxiety 10. Gastroesophageal reflux disease 11. Overactive bladder HOME MEDICATIONS: Please see below. ALLERGIES: Please see below PAST SURGICAL HISTORY: 1. Ligation of varicocele. 2. Cardiac catheterization. SOCIAL HISTORY: Lives with: Alone, Employment: Is not currently working, Tobacco use: [id number] history still actively smoking but weaning himself a lso utilizing a patch. ETOH: 3 alcohol drinks last night and often goes several days without drinking considers himself a social drinker, Illicit drug use: Denies, Tattoos done unprofessionally: Denies, CODE STATUS: Focal FAMILY HISTORY:Reviewed and noncontributory REVIEW OF SYSTEMS: 10 systems reviewed and negative other than HPI PHYSICAL EXAMINATION: VITAL SIGNS: Temperature 99.1, pulse 66, respiratory rate 18, blood pressure 118/68, pulse oximetry 96 % on 3 L nasal cannula GENERAL: Pleasant man appears older than stated age sitting up in bed awake alert oriented speaking in complete sentences no acute distress HEENT: Moist mucous membranes no elevation and CVP, possible angioedema of the sternocleidomastoid area bilaterally, certainly angioedema of the eyelids bilaterally not appreciated on the lip or tongue CARDIOVASCULAR: S1 S2 regular no additional heart sounds appreciated he is not tachycardic. RESPIRATORY: Clear to auscultation bilaterally no audible wheezes at this time prolonged expiratory phase noted. ABDOMINAL: Bowel sounds present abdomen soft and nontender EXTREMITIES: No clubbing cyanosis or edema NEUROLOGICAL: Spontaneously moves all 4 extremities cranial 2 through 12 grossly intact no gross focal deficits appreciated PSYCHOLOGICAL: Appropriate LABORATORY DATA: See below. MICROBIOLOGY: Please see below. IMAGING: CT chest 08/21/2018:1. Essentially complete resolution to the previously noted left upper lobe pneumonia with minimal suspected chronic changes now appreciated in the left upper lobe. 2. Mild chronic stable changes including very subtle emphysematous change. Chest x-ray:1. No acute cardiopulmonary process. ASSESSMENT & PLAN: This is a 53-year-old man with acute angioedema with urticaria. PROBLEMS: 1. Acute angioedema with urticaria: Patient has a lifelong history of allergies and is on numerous medications related to this. He has history of anaphylaxis to azithromycin Hunter inhibitors. And is followed with the outreach rep in the past. No obvious triggers other than the [facility] no new dietary intakes or exposures otherwise noted and he is well aware of the potentials. For the time being we'll continue with Solu-Medrol Benadryl as well as Pepcid. I suspect he can be monitored for 24 hours potentially disposition home tomorrow should he continue to improve as he already has begun to in the emergency room thus far. The area of swelling in the sternocleidomastoids bilaterally is somewhat peculiar it certainly could be angioedema however he states that this had started yesterday prior to the onset of his angioedema today or symptoms today. I will check a CT of the neck noncontrast and appears almost as excess tissue no crepitus noted. 2. COPD: He is not far from his baseline respiratory status wean O2 process 88- 92, continue with Advair restart levo cetirizine when able, continue with DuoNeb's Singulair 3. Mood disorder: Continue with trazodone plus prone as well as citalopram 4.Hypertension: Controlled continue with carvedilol 5. Overactive bladder: Continue with oxybutynin 6. Macrocytosis: Continue with B12 and folic acid 7. Tobacco abuse: Cessation counseling provided 8. Alcohol use monitor for withdrawal symptoms continue with multivitamin and folic acid as well as thiamine. Moderation encouraged 9. Gastroesophageal reflux disease: Continue with pantoprazole DVT PROPHYLAXIS:Lovenox DISPOSITION: Admitted to [facility] with continuous pulse ox monitoring observation status. Vital Signs Vital Signs Date Time Temp Pulse Resp B/P (MAP) Pulse Ox O2 Delivery O2 Flow Rate FiO2 08/22/18 19:00 68 18 125/78 (94) 96 Nasal Cannula 2.0 08/22/18 14:33 99.1 Laboratory Data Labs 24H Laboratory Tests 2 08/22/18 14:52: Immature Granulocyte % (Auto) 0.4, White Blood Count 8.0, Red Blood Count 4.29L, Hemoglobin 14.4, Hematocrit 43.4, Mean Corpuscular Volume 101.2H, Mean Corpuscular Hemoglobin 33.6H, Mean Corpuscular Hemoglobin Concent 33.2, Red Cell Distribution Width 13.6, Platelet Count 180, Neutrophils (%) (Auto) 57.7, Lymphocytes (%) (Auto) 30.9, Monocytes (%) (Auto) 9.6H, Eosinophils (%) (Auto) 1.2, Basophils (%) (Auto) 0.2, Neutrophils # (Auto) 4.6, Lymphocytes # (Auto) 2.5, Monocytes # (Auto) 0.8, Eosinophils # (Auto) 0.1, Basophils # (Auto) 0.0, Nucleated Red Blood Cells % (auto) 0.0, Anion Gap 8, Glomerular Filtration Rate > 60.0, Blood Urea Nitrogen 11, Creatinine 0.80, Sodium Level 141, Potassium Level 4.2, Chloride Level 108H, Carbon Dioxide Level 25, Calcium Level 8.9 CBC/BMP Laboratory Tests 08/22/18 14:52 Red Blood Count 4.29 L, Mean Corpuscular Volume 101.2 H, Mean Corpuscular Hemoglobin 33.6 H, Mean Corpuscular Hemoglobin Concent 33.2, Red Cell Distribution Width 13.6, Neutrophils (%) (Auto) 57.7, Lymphocytes (%) (Auto) 30.9, Monocytes (%) (Auto) 9.6 H, Eosinophils (%) (Auto) 1.2, Basophils (%) (Auto) 0.2, Neutrophils # (Auto) 4.6, Lymphocytes # (Auto) 2.5, Monocytes # (Auto) 0.8, Eosinophils # (Auto) 0.1, Basophils # (Auto) 0.0, Calcium Level 8.9 Home Medications Scheduled Aspirin (Aspirin EC) 81 Mg Tablet.dr, 81 MG PO DAILY Buspirone HCl (Buspirone HCl) 15 Mg Tab, 15 MG PO BID Carvedilol (Carvedilol) 12.5 Mg Tab, 12.5 MG PO BID Citalopram Hydrobromide (Citalopram HBr) 40 Mg Tablet, 40 MG PO DAILY Cyanocobalamin (Vitamin B-12) (Vitamin B-12) 1,000 Mcg Tab, 1,000 MCG PO DAILY Folic Acid (Folic Acid) 1 Mg Tab, 1 MG PO DAILY Guaifenesin (Mucinex) 600 Mg Tab.er.12h, 600 MG PO BID Levocetirizine Dihydrochloride (Levocetirizine Dihydrochloride) 5 Mg Tab, 5 MG PO DAILY Magnesium Oxide (Magnesium Oxide) 400 Mg Tablet, 400 MG PO DAILY Montelukast Sodium (Singulair) 10 Mg Tab, 10 MG PO DAILY Multivitamins (Thera M Plus Tablet) 1 Tab Tab, 1 TAB PO DAILY Nicotine (Nicotine Patch) 14 Mg/24 Hr Patch.td24, 14 MG TD DAILY Oxybutynin Chloride (Oxybutynin Chloride ER) 5 Mg Tab, 5 MG PO DAILY Pantoprazole Sodium (Pantoprazole Sodium) 40 Mg Tab, 40 MG PO DAILY Salmeterol/Fluticasone (Advair 500-50 Diskus) 28 Puff/Inhaler Aerp, 1 PUFF INH BID Thiamine HCl (Vitamin B-1) 50 Mg Tab, 100 MG PO DAILY Triamcinolone Acetonide (Nasacort) 55 Mcg/Act Spr, 1 SPRAY NA DAILY Umeclidinium [place] (Incruse Ellipta) 62.5 Mcg/Inh Inh, 1 PUFF INH DAILY Scheduled PRN Acetaminophen (Tylenol Extra Strength) 500 Mg Tablet, 1,000 MG PO Q6H PRN for PAIN Albuterol Sulfate (Ventolin Hfa) 108 Mcg/Act Aer, 2 PUFFS INH Q4H PRN for SHORTNESS OF BREATH Clobetasol Propionate/Emoll (Clobetasol Emollient 0.05% Crm) 0.05 % Cre, 1 APLCT TOP BID PRN for RASH APPLIES TO AFFECTED AREAS ON HANDS Epinephrine (Epinephrine) 0.3 Mg/0.3 Ml Inj, 0.3 MG INJ ASDIRECTED PRN for ANAPHYLAXIS Hydroxyzine HCl (Hydroxyzine HCl) 25 Mg Tab, 25 MG PO TID PRN for ITCHING Ipratropium/Albuterol Sulfate (Iprat-Albut 0.5-3(2.5) mg/3 ml) 1 Bell Bell, 3 ML INH QID PRN for SHORTNESS OF BREATH Naltrexone HCl (Naltrexone HCl) 50 Mg Tab, 50 MG PO BID PRN for CRAVING Polyvinyl Alcohol (Artificial Tears) 1.4 % Bell, 1 DROP OU QID PRN for DRY EYES Trazodone HCl (Trazodone HCl) 50 Mg Tablet, 50 MG PO QHS PRN for SLEEP Allergies Coded Allergies: HUNTER Inhibitors (Verified Allergy, Severe, ANGIOEDEMA, 08/22/18) azithromycin (Verified Allergy, Severe, ANAPHYLAXIS, 05/29/18) latex (Verified Allergy, Severe, HIVES, EDEMA, 08/22/18) oseltamivir (Verified Allergy, Severe, ANAPHYLAXIS, 05/29/18) SEASONAL ALLERGIES (Verified Allergy, Unknown, 04/07/18) A-FIB/CHADSVASC A-FIB History Current/History of A-Fib/PAF?: No JUDSON EDWARDS MD Aug 22, 2018 21:14
--- NOTE | 2018-08-22 21:49 | REP ---
Clinical: Bilateral neck swelling. Technique: Axial noncontrast images from the the mid skull through the thoracic inlet with coronal and sagittal re-formations. Findings: Moderate mucoperiosteal changes involving the left ethmoid and maxillary sinus along with mucosal thickening of the left-sided nasal turbinates suggests chronic sinusitis. The nasopharyngeal, oral pharyngeal and upper tracheal airway is otherwise patent, midline, and normal. Nasopharyngeal soft tissues including parapharyngeal and retropharyngeal spaces are unremarkable. No abscess. No focal inflammatory stranding. No significant adenopathy. Glandular tissue appears symmetric and normal. The osseous structures are intact. Mastoid air cells are clear. Impression: 1. Moderate chronic sinusitis suggested with mucoperiosteal changes involving the left ethmoid and maxillary sinuses as well as the left nasal turbinates. 2. Otherwise normal neck CT without adenopathy, focal inflammatory stranding, or mass/mass effect. Airway is patent, midline and without mass effect. Electronically Signed by Flex Forrest MD 08/22/2018 09:41 P
[2018-08-22] MEDS: guaiFENesin ER 600 MG TAB PO SCH (22:00)
[2018-08-22] MEDS ORDERED: IPRATROPIUM 0.5MG/ALBUTEROL 2.5MG INH SOL UD 3ML (DUONEB)(J7620) NEB PRN (22:45)
[2018-08-22] MEDS: methylPREDNISolone INJ 125 MG/2 ML VIAL (J2930) IV SCH (22:57)
[2018-08-23] MEDS: IPRATROPIUM 0.5MG/ALBUTEROL 2.5MG INH SOL UD 3ML (DUONEB)(J7620) NEB SCH ×6 (04:47→19:47)
[2018-08-23 06:54] LABS: HEMATOCRIT 41.3 % (42.0-52.0); HEMOGLOBIN 13.5 g/dl (13.5-17.5); MEAN CORPUSCULAR HEMOGLOBIN 33.2 pg (27.0-33.0); MEAN CORPUSCULAR HGB CONC 32.7 g/dl (32.0-36.5); MEAN CORPUSCULAR VOLUME 101.5 fl (80.0-96.0); PLATELET COUNT, AUTOMATED 157 10^3/uL (150-450); RED BLOOD COUNT 4.07 10^6/uL (4.30-6.10); WHITE BLOOD COUNT 8.1 10^3/uL (4.0-10.0)
[2018-08-23 07:20] LABS: BLOOD UREA NITROGEN 12 MG/DL (7-18); CARBON DIOXIDE LEVEL 29 MEQ/L (21-32); CHLORIDE LEVEL 105 MEQ/L (98-107); CREATININE FOR GFR 0.78 MG/DL (0.70-1.30); GLOMERULAR FILTRATION RATE > 60.0 (>56); GLUCOSE, FASTING 150 MG/DL (70-100); SODIUM LEVEL 139 MEQ/L (136-145)
[2018-08-23] MEDS: methylPREDNISolone INJ 125 MG/2 ML VIAL (J2930) IV SCH ×3 (07:48→23:08)
--- NOTE | 2018-08-23 08:34 | IPNPDOC ---
Subjective Date Seen The patient was seen on 08/23/18. Subjective Chief Complaint/HPI Swelling better, still some noisy breathing. Constitutional: Denies: Chills, Fever Eyes: Denies: Vision change Skin: Reports: Other (periobital swelling) Pulmonary: Reports: Cough; Denies: Pleuritic Chest Pain Cardiovascular: Denies: Chest Pain, Palpitations Gastrointestinal: Denies: Nausea, Abdominal Pain Genitourinary: Denies: Dysuria Hematologic: Denies: Bruising Musculoskeletal: Reports: Neck Pain (slight right sided neck discomfort and soft swelling) Neurological: Denies: Weakness, Numbness Psych: Reports: Mood Normal Objective Physical Examination General Exam: Positive: Alert, Cooperative, No Acute Distress Eye Exam: Positive: PERRLA; Negative: Conjunctiva & lids normal (swelling of lids bilaterally, L slightly more prominent than right.) ENT Exam: Positive: Mucous membr. moist/pink, Pharynx Normal; Negative: Pharyngeal Edema Neck Exam: Positive: Supple, Other (soft compressible swelling right neck, no nodules, no sense of fluid transfer, texture suggestive of fat pad); Negative: thyromegaly Chest Exam: Positive: Rhonchi; Negative: Rales Heart Exam: Positive: Rate Normal, Regular Rhythm Abdomen Exam: Positive: Normal bowel sounds, Soft; Negative: Tenderness Extremity Exam: Negative: Clubbing, Edema Skin Exam: Positive: Nl turgor and temperature Neuro Exam: Positive: Normal Speech Psych Exam: Positive: Mental status NL Assessment /Plan Problems (1) Anaphylactic reaction (2) Asthma Status: Acute Response to Treatment: Improving Problem Text: wide spread rhonchi, anticipate continued improvement with systemic glucocorticoid then will need taper, continue inhaled agents. (3) Cardiomyopathy Status: Chronic Problem Specific Plan: Consult Specialist Problem Text: he has show improvement in EF while on carvedilol, but use of non-cardioselective beta candy in patient who has need for bronchodilators is problematic. use of cardioselective beta candy can also be troublesome in patient with hx of anaphylaxis because use of epinephrine can create unopposed alpha effect resulting in extreme surge in blood pressure. Will seek opinion from Dr. Lutz about this issue. (4) COPD (chronic obstructive pulmonary disease) with emphysema Status: Chronic Response to Treatment: Worse Problem Text: on multiple agents to try to control, complicated by his continued smoking. last smoked 08/22/18 (5) Tobacco dependency Status: Chronic Response to Treatment: Stable Problem Text: nicotine patch ordered. Plan/VTE VTE Prophylaxis Ordered?: Yes Plan Anticipated Discharge: Home VS, I&O, 24H, [facility] Vital Signs/I&O Vital Signs Date Time Temp Pulse Resp B/P (MAP) Pulse Ox O2 Delivery O2 Flow Rate FiO2 08/23/18 06:00 72 18 125/69 (87) 96 Room Air 08/23/18 04:15 97.2 08/23/18 04:00 2.0 Laboratory Data 24H LABS Laboratory Tests 2 08/22/18 14:52: Immature Granulocyte % (Auto) 0.4, White Blood Count 8.0, Red Blood Count 4.29L, Hemoglobin 14.4, Hematocrit 43.4, Mean Corpuscular Volume 101.2H, Mean Channing uscular Hemoglobin 33.6H, Mean Corpuscular Hemoglobin Concent 33.2, Red Cell Distribution Width 13.6, Platelet Count 180, Neutrophils (%) (Auto) 57.7, Lymphocytes (%) (Auto) 30.9, Monocytes (%) (Auto) 9.6H, Eosinophils (%) (Auto) 1.2, Basophils (%) (Auto) 0.2, Neutrophils # (Auto) 4.6, Lymphocytes # (Auto) 2.5, Monocytes # (Auto) 0.8, Eosinophils # (Auto) 0.1, Basophils # (Auto) 0.0, Nucleated Red Blood Cells % (auto) 0.0, Anion Gap 8, Glomerular Filtration Rate > 60.0, Blood Urea Nitrogen 11, Creatinine 0.80, Sodium Level 141, Potassium Level 4.2, Chloride Level 108H, Carbon Dioxide Level 25, Calcium Level 8.9 08/23/18 06:40: Nucleated Red Blood Cells % (auto) 0.0, Anion Gap 5L, Glomerular Filtration Rate > 60.0, Blood Urea Nitrogen 12, Creatinine 0.78, Sodium Level 139, Potassium Level 4.0, Chloride Level 105, Carbon Dioxide Level 29, Calcium Level 9.0 CBC/BMP Laboratory Tests 08/22/18 14:52 Red Blood Count 4.29 L, Mean Corpuscular Volume 101.2 H, Mean Corpuscular Hemoglobin 33.6 H, Mean Corpuscular Hemoglobin Concent 33.2, Red Cell Distri bution Width 13.6, Neutrophils (%) (Auto) 57.7, Lymphocytes (%) (Auto) 30.9, Monocytes (%) (Auto) 9.6 H, Eosinophils (%) (Auto) 1.2, Basophils (%) (Auto) 0.2, Neutrophils # (Auto) 4.6, Lymphocytes # (Auto) 2.5, Monocytes # (Auto) 0.8, Eosinophils # (Auto) 0.1, Basophils # (Auto) 0.0, Calcium Level 8.9 08/23/18 06:40 Red Blood Count 4.07 L, Mean Corpuscular Volume 101.5 H, Mean Corpuscular Hemoglobin 33.2 H, Mean Corpuscular Hemoglobin Concent 32.7, Red Cell Distribution Width 13.4, Calcium Level 9.0 Sonu Yoon MD Aug 23, 2018 08:34
[2018-08-23] MEDS: ENOXAPARIN 40 MG/0.4 ML SYRINGE (J1650) SC SCH (08:43)
[2018-08-23] MEDS: oxyBUTYnin *DITROPAN XL* 5 MG TABCR PO SCH (08:43)
[2018-08-23] MEDS: THIAMINE 100 MG TAB PO SCH (08:43)
[2018-08-23] MEDS: PANTOPRAZOLE 40MG TAB (PROTONIX) PO SCH (08:44)
[2018-08-23] MEDS: FAMOTIDINE 20 MG TAB PO SCH ×2 (08:44→20:38)
[2018-08-23] MEDS: CitaloPRAM (CeleXA) 20 MG TAB PO SCH (08:44)
[2018-08-23] MEDS: ASPIRIN 81 MG CHEW TABLET PO SCH (08:44)
[2018-08-23] MEDS: MONTELUKAST 10 MG TAB PO SCH (08:44)
[2018-08-23] MEDS: guaiFENesin ER 600 MG TAB PO SCH ×2 (08:45→20:38)
[2018-08-23] MEDS: NICOTINE 14 MG/24 HR TRANSDERMAL TD SCH (08:45)
[2018-08-23] MEDS: FOLIC ACID 1 MG TAB PO SCH (08:45)
[2018-08-23] MEDS: CYANOCOBALAMIN 500 MCG TAB PO SCH (08:45)
[2018-08-23] MEDS: MULTIVITAMINS/MINERALS THERAP 1 TAB PO SCH (08:45)
[2018-08-23] MEDS: ADVAIR HFA 230/21MCG INHALER INH SCH ×2 (09:00→19:48)
[2018-08-23 14:00] VITALS: BP 133/76
[2018-08-23 22:00] VITALS: BP 134/76
[2018-08-24] MEDS: IPRATROPIUM 0.5MG/ALBUTEROL 2.5MG INH SOL UD 3ML (DUONEB)(J7620) NEB SCH ×7 (00:40→23:53)
[2018-08-24 06:00] VITALS: BP 157/90
[2018-08-24 06:29] LABS: HEMATOCRIT 38.6 % (42.0-52.0); HEMOGLOBIN 12.5 g/dl (13.5-17.5); MEAN CORPUSCULAR HEMOGLOBIN 32.5 pg (27.0-33.0); MEAN CORPUSCULAR HGB CONC 32.4 g/dl (32.0-36.5); MEAN CORPUSCULAR VOLUME 100.3 fl (80.0-96.0); PLATELET COUNT, AUTOMATED 154 10^3/uL (150-450); RED BLOOD COUNT 3.85 10^6/uL (4.30-6.10); WHITE BLOOD COUNT 11.8 10^3/uL (4.0-10.0)
[2018-08-24] MEDS: methylPREDNISolone INJ 125 MG/2 ML VIAL (J2930) IV SCH (06:32)
[2018-08-24 06:48] LABS: BLOOD UREA NITROGEN 14 MG/DL (7-18); CALCIUM LEVEL 8.8 MG/DL (8.5-10.1); CARBON DIOXIDE LEVEL 29 MEQ/L (21-32); CHLORIDE LEVEL 105 MEQ/L (98-107); CREATININE FOR GFR 0.62 MG/DL (0.70-1.30); GLOMERULAR FILTRATION RATE > 60.0 (>56); GLUCOSE, FASTING 157 MG/DL (70-100); POTASSIUM SERUM 3.9 MEQ/L (3.5-5.1); SODIUM LEVEL 139 MEQ/L (136-145)
[2018-08-24] MEDS: FOLIC ACID 1 MG TAB PO SCH (08:00)
[2018-08-24] MEDS: guaiFENesin ER 600 MG TAB PO SCH ×2 (08:00→22:39)
[2018-08-24] MEDS: PANTOPRAZOLE 40MG TAB (PROTONIX) PO SCH (08:00)
[2018-08-24] MEDS: MULTIVITAMINS/MINERALS THERAP 1 TAB PO SCH (08:00)
[2018-08-24] MEDS: FAMOTIDINE 20 MG TAB PO SCH ×2 (08:00→22:39)
[2018-08-24] MEDS: CYANOCOBALAMIN 500 MCG TAB PO SCH (08:00)
[2018-08-24] MEDS: THIAMINE 100 MG TAB PO SCH (08:00)
[2018-08-24] MEDS: CitaloPRAM (CeleXA) 20 MG TAB PO SCH (08:00)
[2018-08-24] MEDS: oxyBUTYnin *DITROPAN XL* 5 MG TABCR PO SCH (08:00)
[2018-08-24] MEDS: ENOXAPARIN 40 MG/0.4 ML SYRINGE (J1650) SC SCH (08:01)
[2018-08-24] MEDS: NICOTINE 14 MG/24 HR TRANSDERMAL TD SCH (08:01)
[2018-08-24] MEDS: ASPIRIN 81 MG CHEW TABLET PO SCH (08:01)
[2018-08-24] MEDS: MONTELUKAST 10 MG TAB PO SCH (08:01)
[2018-08-24] MEDS: ADVAIR HFA 230/21MCG INHALER INH SCH ×2 (08:22→19:57)
--- NOTE | 2018-08-24 10:55 | IPNPDOC ---
Subjective Date Seen The patient was seen on 08/24/18. Subjective Chief Complaint/HPI Pt this morning states that he is feeling better. He feels the swelling cont to improve. Denies any new respiratory symptoms. States despite the swelling never felt worsening of his breathing or oral swelling General: Denies: Fatigue Constitutional: Denies: Chills, Fever ENT: Denies: Head Aches Pulmonary: Reports: Dyspnea (at baseline); Denies: Cough Cardiovascular: Denies: Chest Pain, Palpitations Gastrointestinal: Denies: Nausea, Vomiting, Abdominal Pain, Diarrhea Neurological: Denies: Weakness Psych: Reports: Mood Normal Objective Physical Examination General Exam: Positive: Alert, Cooperative, No Acute Distress Eye Exam: Positive: PERRLA; Negative: Conjunctiva & lids normal (mild swelling of lids bilaterally, L slightly more prominent than right.) ENT Exam: Positive: Mucous membr. moist/pink, Pharynx Normal; Negative: Pharyngeal Edema Neck Exam: Positive: Supple, Other (soft compressible swelling right neck, no nodules, no sense of fluid transfer, texture suggestive of fat pad); Negative: thyromegaly Chest Exam: Positive: Rhonchi; Negative: Rales Heart Exam: Positive: Rate Normal, Regular Rhythm Abdomen Exam: Positive: Normal bowel sounds, Soft; Negative: Tenderness Extremity Exam: Negative: Clubbing, Edema Skin Exam: Positive: Nl turgor and temperature Neuro Exam: Positive: Normal Speech Psych Exam: Positive: Mental status NL Assessment /Plan Problems (1) Anaphylactic reaction Status: Acute Response to Treatment: Stable Problem Specific Plan: Monitor Clinically Problem Text: Pt on solumedrol 60 mg Q8h, aman d/c start Pred taper. Pt counseled on need for dot net developer at f/u. He expressed understanding. (2) Asthma Status: Acute Response to Treatment: Improving Problem Text: wide spread rhonchi, anticipate continued improvement with systemic glucocorticoid then will need taper, continue inhaled agents. (3) Cardiomyopathy Status: Chronic Problem Specific Plan: Consult Specialist Problem Text: 08/24 [facility] hasn't seen pt, Dr Yoon called to f/u. 08/23 he has show improvement in EF while on carvedilol, but use of non- cardioselective beta candy in patient who has need for bronchodilators is problematic. use of cardioselective beta candy can also be troublesome in patient with hx of anaphylaxis because use of epinephrine can create unopposed alpha effect resulting in extreme surge in blood pressure. Will seek opinion from Dr. Lutz about this issue. (4) COPD (chronic obstructive pulmonary disease) with emphysema Status: Chronic Response to Treatment: Worse Problem Text: on multiple agents to try to control, complicated by his continue d smoking. last smoked 08/22/18 (5) Tobacco dependency Status: Chronic Response to Treatment: Stable Problem Text: nicotine patch ordered. Plan/VTE VTE Prophylaxis Ordered?: Yes Plan Anticipated Discharge: Home VS, I&O, 24H, [facility] Vital Signs/I&O Vital Signs Date Time Temp Pulse Resp B/P (MAP) Pulse Ox O2 Delivery O2 Flow Rate FiO2 08/24/18 06:00 98.2 72 18 157/90 (112) 96 08/23/18 22:00 2.0 08/23/18 08:45 Nasal Cannula I&O- Last 24 Hours up to 6 AM 08/24/18 06:00 Intake Total 1725 ml Output Total 300 ml Balance 1425 ml Laboratory Data 24H LABS Laboratory Tests 2 08/24/18 06:14: Nucleated Red Blood Cells % (auto) 0.0, Anion Gap 5L, Glomerular Filtration Rate > 60.0, Blood Urea Nitrogen 14, Creatinine 0.62L, Sodium Level 139, Potassium Level 3.9, Chloride Level 105, Carbon Dioxide Level 29, Calcium Level 8.8 CBC/BMP Laboratory Tests 08/24/18 06:14 Red Blood Count 3.85 L, Mean Corpuscular Volume 100.3 H, Mean Corpuscular Hemoglobin 32.5, Mean Corpuscular Hemoglobin Concent 32.4, Red Cell Distribution Width 13.3, Calcium Level 8.8 Attending Note Attending Note Dr. Martin wasn't able to get in to see him yesterday but recommended that we use amlodipine to help keep pressure controlled. Reminded patient of importance of alcohol avoidance to avoid recurrent cardiomyopathy related to EtOH. Change to po steroid then should be able to d/c tomorrow. Persistent periorbital swelling and itchy eyes, will add Patanol and check CT craniofacial. REEBCCA WRIGHT PA-C Aug 24, 2018 10:55 Sonu Yoon MD Aug 24, 2018 12:04
[2018-08-24] MEDS: predniSONE 20 MG TAB PO SCH (12:00)
[2018-08-24] MEDS ORDERED: ISOVUE-370 76% 100ML VIAL (Q9967) As Ordered ONE (12:15)
[2018-08-24] MEDS: CETIRIZINE (ZyrTEC) 10 MG TAB PO SCH (12:30)
[2018-08-24 14:00] VITALS: BP 122/78
--- NOTE | 2018-08-24 14:07 | REP ---
Maxillofacial CT study with IV contrast : History: Periorbital swelling associated with anaphylaxis. Comparison maxillofacial CT study is from June 16, 2016. CT contrast dose: 75 mL of intravenous Isovue 370. CT findings: The preliminary digital consumer educator radiographs are unremarkable. No significant and periorbital or facial swelling is seen. Submandibular and parotid glands are normal and symmetric. No intraorbital fluid collection or mass or edema is seen. The left ocular lens is not seen today suggesting interval cataract procedure. There is minimal generalized intracranial atrophy. Minimal carotid vascular calcification is seen. The sphenoid sinuses are clear. Frontal sinuses are clear. There are minimal mucosal thickening changes in the left ethmoid air cells. There is moderate mucosal thickening affecting the left maxillary sinus. This is improved compared with the May 2016 study. The left ostiomeatal complex is patent although there is mucosal thickening. There is an aerated chandu bullosa on the left as before along with some Ashwini cells. The right OMC is widely patent. Bony nasal septum deviates somewhat to the right without an observable beak. No evidence of nasal polyp. No abnormal contrast enhancement. Impression: Mucosal thickening affecting the left maxillary sinus and one or two left ethmoid air cells. This is improved from the comparison study. No abnormal fluid collection to suggest abscess. Minimal vascular calcification. Electronically Signed by Sudarshan Louis MD 08/24/2018 04:23 P
[2018-08-24] MEDS: OLOPATADINE 0.1% OPHTH SOL 5ML(PATANOL) OU SCH (17:43)
[2018-08-24 22:00] VITALS: BP 137/81
[2018-08-25] MEDS: IPRATROPIUM 0.5MG/ALBUTEROL 2.5MG INH SOL UD 3ML (DUONEB)(J7620) NEB SCH ×5 (02:45→15:00)
[2018-08-25 06:00] VITALS: BP 141/87
[2018-08-25 06:11] LABS: HEMATOCRIT 39.3 % (42.0-52.0); MEAN CORPUSCULAR HEMOGLOBIN 33.2 pg (27.0-33.0); MEAN CORPUSCULAR HGB CONC 33.1 g/dl (32.0-36.5); MEAN CORPUSCULAR VOLUME 100.3 fl (80.0-96.0); PLATELET COUNT, AUTOMATED 168 10^3/uL (150-450); RED BLOOD COUNT 3.92 10^6/uL (4.30-6.10); WHITE BLOOD COUNT 11.6 10^3/uL (4.0-10.0)
[2018-08-25 06:32] LABS: BLOOD UREA NITROGEN 11 MG/DL (7-18); CALCIUM LEVEL 8.4 MG/DL (8.5-10.1); CARBON DIOXIDE LEVEL 30 MEQ/L (21-32); CHLORIDE LEVEL 104 MEQ/L (98-107); CREATININE FOR GFR 0.57 MG/DL (0.70-1.30); GLOMERULAR FILTRATION RATE > 60.0 (>56); GLUCOSE, FASTING 108 MG/DL (70-100); POTASSIUM SERUM 3.7 MEQ/L (3.5-5.1); SODIUM LEVEL 141 MEQ/L (136-145)
[2018-08-25] MEDS: ADVAIR HFA 230/21MCG INHALER INH SCH (07:23)
[2018-08-25] MEDS ORDERED: amLODIPine 5 MG TAB PO SCH (09:00)
[2018-08-25 09:18] VITALS: BP_SYST 149; BP_SYST 177; BP_DIAS 104; BP_DIAS 90
[2018-08-25] MEDS: MONTELUKAST 10 MG TAB PO SCH (10:06)
[2018-08-25] MEDS: FAMOTIDINE 20 MG TAB PO SCH (10:06)
[2018-08-25] MEDS: MULTIVITAMINS/MINERALS THERAP 1 TAB PO SCH (10:07)
[2018-08-25] MEDS: THIAMINE 100 MG TAB PO SCH (10:07)
[2018-08-25] MEDS: oxyBUTYnin *DITROPAN XL* 5 MG TABCR PO SCH (10:08)
[2018-08-25] MEDS: PANTOPRAZOLE 40MG TAB (PROTONIX) PO SCH (10:08)
[2018-08-25] MEDS: CETIRIZINE (ZyrTEC) 10 MG TAB PO SCH (10:09)
[2018-08-25 10:11] VITALS: BP 149/90
[2018-08-25] MEDS: guaiFENesin ER 600 MG TAB PO SCH (10:12)
[2018-08-25] MEDS: predniSONE 20 MG TAB PO SCH (10:12)
[2018-08-25] MEDS: FOLIC ACID 1 MG TAB PO SCH (10:20)
[2018-08-25] MEDS: CitaloPRAM (CeleXA) 20 MG TAB PO SCH (10:20)
[2018-08-25] MEDS: CYANOCOBALAMIN 500 MCG TAB PO SCH (10:21)
[2018-08-25] MEDS: ASPIRIN 81 MG CHEW TABLET PO SCH (10:22)
[2018-08-25] MEDS: NICOTINE 14 MG/24 HR TRANSDERMAL TD SCH (10:23)
[2018-08-25] MEDS: OLOPATADINE 0.1% OPHTH SOL 5ML(PATANOL) OU SCH ×2 (10:23→17:24)
[2018-08-25] MEDS: ENOXAPARIN 40 MG/0.4 ML SYRINGE (J1650) SC SCH (10:24)
[2018-08-25 14:01] VITALS: BP 148/92
--- NOTE | 2018-08-25 17:54 | DS.PDOC ---
Discharge Summary General Date of Admission Aug 24, 2018 at 10:55 Date of Discharge 08/25/18 Primary Care Physician: Sonu Yoon MD Attending Physician: Selwyn Johnson MD Specialist/Consultants Involve: TRU MATIAS MD Discharge Summary PROCEDURES PERFORMED DURING STAY: [None]. ADMITTING DIAGNOSES: 1. . DISCHARGE DIAGNOSES: 1. . COMPLICATIONS/CHIEF COMPLAINT: Angioedema. HISTORY OF PRESENT ILLNESS: . HOSPITAL COURSE: . DISCHARGE MEDICATIONS: Please see below. ALLERGIES: Please see below. PHYSICAL EXAMINATION ON DISCHARGE: VITAL SIGNS: Please see below. GENERAL: HEENT: NECK: CARDIOVASCULAR EXAMINATION: RESPIRATORY EXAMINATION: ABDOMINAL EXAMINATION: EXTREMITIES: SKIN: NEUROLOGICAL EXAMINATION: PSYCHIATRIC EXAMINATION: LABORATORY DATA: Please see below. IMAGING: PROGNOSIS: ACTIVITY: [As tolerated]. DIET: DISCHARGE PLAN: DISPOSITION: . DISCHARGE INSTRUCTIONS: 1. . ITEMS TO FOLLOWUP ON ON OUTPATIENT: 1. . DISCHARGE CONDITION: [Stable]. TIME SPENT ON DISCHARGE: Greater than minutes. Vital Signs/I&Os Vital Signs Date Time Temp Pulse Resp B/P (MAP) Pulse Ox O2 Delivery O2 Flow Rate FiO2 08/25/18 14:01 99.1 78 16 148/92 (110) 94 08/25/18 11:09 2.0 08/23/18 08:45 Nasal Cannula I&O- Last 24 Hours up to 6 AM 08/25/18 06:00 Intake Total 2770 ml Balance 2770 ml Laboratory Data Labs 24H Laboratory Tests 2 08/25/18 05:45: Nucleated Red Blood Cells % (auto) 0.0, Anion Gap 7L, Glomerular Filtration Rate > 60.0, Blood Urea Nitrogen 11, Creatinine 0.57L, Sodium Level 141, Potassium Level 3.7, Chloride Level 104, Carbon Dioxide Level 30, Calcium Level 8.4L CBC/BMP Laboratory Tests 08/25/18 05:45 Red Blood Count 3.92 L, Mean Corpuscular Volume 100.3 H, Mean Corpuscular Hemoglobin 33.2 H, Mean Corpuscular Hemoglobin Concent 33.1, Red Cell Distribution Width 13.2, Calcium Level 8.4 L Discharge Medications Scheduled Aspirin (Aspirin EC) 81 Mg Tablet.dr, 81 MG PO DAILY, (Reported) Buspirone HCl (Buspirone HCl) 15 Mg Tab, 15 MG PO BID, (Reported) Carvedilol (Carvedilol) 12.5 Mg Tab, 12.5 MG PO BID, (Reported) Citalopram Hydrobromide (Citalopram HBr) 40 Mg Tablet, 40 MG PO DAILY, (Reported) Cyanocobalamin (Vitamin B-12) (Vitamin B-12) 1,000 Mcg Tab, 1,000 MCG PO DAILY, (Reported) Folic Acid (Folic Acid) 1 Mg Tab, 1 MG PO DAILY, (Reported) Guaifenesin (Mucinex) 600 Mg Tab.er.12h, 600 MG PO BID, (Reported) Levocetirizine Dihydrochloride (Levocetirizine Dihydrochloride) 5 Mg Tab, 5 MG PO DAILY, (Reported) Magnesium Oxide (Magnesium Oxide) 400 Mg Tablet, 400 MG PO DAILY, (Reported) Montelukast Sodium (Singulair) 10 Mg Tab, 10 MG PO DAILY, (Reported) Multivitamins (Thera M Plus Tablet) 1 Tab Tab, 1 TAB PO DAILY, (Reported) Nicotine (Nicotine Patch) 14 Mg/24 Hr Patch.td24, 14 MG TD DAILY, (Reported) Oxybutynin Chloride (Oxybutynin Chloride ER) 5 Mg Tab, 5 MG PO DAILY, (Reported) Pantoprazole Sodium (Pantoprazole Sodium) 40 Mg Tab, 40 MG PO DAILY, (Reported) Salmeterol/Fluticasone (Advair 500-50 Diskus) 28 Puff/Inhaler Aerp, 1 PUFF INH BID, (Reported) Thiamine HCl (Vitamin B-1) 50 Mg Tab, 100 MG PO DAILY, (Reported) Triamcinolone Acetonide (Nasacort) 55 Mcg/Act Spr, 1 SPRAY NA DAILY, (Reported) Umeclidinium [place] (Incruse Ellipta) 62.5 Mcg/Inh Inh, 1 PUFF INH DAILY, (Reported) Scheduled PRN Acetaminophen (Tylenol Extra Strength) 500 Mg Tablet, 1,000 MG PO Q6H PRN for PAIN, (Reported) Albuterol Sulfate (Ventolin Hfa) 108 Mcg/Act Aer, 2 PUFFS INH Q4H PRN for SHORTNESS OF BREATH, (Reported) Clobetasol Propionate/Emoll (Clobetasol Emollient 0.05% Crm) 0.05 % Cre, 1 APLCT TOP BID PRN for RASH, (Reported) APPLIES TO AFFECTED AREAS ON HANDS Epinephrine (Epinephrine) 0.3 Mg/0.3 Ml Inj, 0.3 MG INJ ASDIRECTED PRN for ANAPHYLAXIS, (Reported) Hydroxyzine HCl (Hydroxyzine HCl) 25 Mg Tab, 25 MG PO TID PRN for ITCHING, (Rep orted) Ipratropium/Albuterol Sulfate (Iprat-Albut 0.5-3(2.5) mg/3 ml) 1 Bell Bell, 3 ML INH QID PRN for SHORTNESS OF BREATH, (Reported) Naltrexone HCl (Naltrexone HCl) 50 Mg Tab, 50 MG PO BID PRN for CRAVING, (Reported) Polyvinyl Alcohol (Artificial Tears) 1.4 % Bell, 1 DROP OU QID PRN for DRY EYES, (Reported) Trazodone HCl (Trazodone HCl) 50 Mg Tablet, 50 MG PO QHS PRN for SLEEP, (Reported) Allergies Coded Allergies: ROMULO Inhibitors (Verified Allergy, Severe, ANGIOEDEMA, 08/22/18) azithromycin (Verified Allergy, Severe, ANAPHYLAXIS, 05/29/18) latex (Verified Allergy, Severe, HIVES, EDEMA, 08/22/18) oseltamivir (Verified Allergy, Severe, ANAPHYLAXIS, 05/29/18) SEASONAL ALLERGIES (Verified Allergy, Unknown, 04/07/18) Selwyn Johnson MD Aug 25, 2018 17:54
[2018-08-25] MEDS ORDERED: PRED10TA2 PO (18:10)
[2018-08-25] MEDS ORDERED: AMLO5TAB6 PO (18:10)
[2018-08-25] MEDS ORDERED: OLOP0.1D OU (18:10)
--- NOTE | 2018-08-26 16:30 | CR ---
DATE OF CONSULTATION: 08/25/2018 REFERRING PROVIDER: Dr. Sonu Yoon. REASON FOR THE CONSULT: History of cardiomyopathy. The patient with history of angioedema to angiotensin-converting enzyme (ROMULO) inhibitors/angiotensin receptor candy (ARB). Admitted with angioedema, now on carvedilol. Mr. Dontae Castillo was seen in the morning of 08/25/2018. He was in bed and in no akinesis at rest. He stated that he feels fine and he is getting much better. He is looking forward to go home. Case was discussed on 08/24/[address] Yoon and we decided to start him on amlodipine for his blood pressure, which he received without any side effects. As noted above, he has history of allergies, both related to medications and the environment and was evaluated in the past by an geophysical laboratory supervisor. He plans on to go back. Last September, he was admitted with angioedema and some other time he was losartan. On previous chart, he has prior history of angioedema to ROMULO inhibitor. This time, he has been taking his medication regularly and the morning of admission, the started having itchy eyes with swelling of the eyelids, and then developed swelling of his lips and decided to come to the emergency room (ER) for further evaluation. He has an EpiPen at home, but did not use it. He call [facility] and this was administered while coming to the hospital. He was also was given Benadryl. He also was found to have a diffuse rash examination. He was treated with Solu-Medrol and his carvedilol was discontinued. In view of his underlying cardiac history, cardiology consult was called. Mr. Dontae Castillo, as mentioned above, denies any chest pain and he stated that his shortness of breath has been stable. 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 He denies any chest pain, palpitations, pedal edema, orthopnea, syncope or near syncope. He has a cough, but denies any hemoptysis. He has no nausea or vomiting, diarrhea, melena or hematemesis. He has no focal manifestation. He has a past medical history, as mentioned above, for alcohol-induced cardiomyopathy, resolved. He was a history of chronic obstructive pulmonary disease (COPD) with chronic hypoxemic respiratory failure, for which he has been on nasal cannula oxygen at 3 liters per minute, hypertension, anxiety, gastroesophageal reflux disease (GERD), overactive bladder, anxiety/depression, multiple allergies. There is no known history of coronary artery disease, cerebrovascular accident (CVA), atrial fibrillation, sudden cardiac , diabetes mellitus, kidney disease, thyroid disorders, hyperlipidemia. Past surgical history is positive for ligation of varicocele, otherwise unremarkable. FAMILY HISTORY: Noncontributory. SOCIAL HISTORY: Patient lives alone and does smoke. He does have a history of EtOH abuse, but denies any illicit drugs. ALLERGIES: ROMULO INHIBITOR AND ARB, adverse reaction describes angioedema. He also has a history of allergies to ZITHROMAX, anaphylaxis. He had developed hives with LATEX. He developed anaphylaxis to OSELTAMIVIR. The most current angioedema is thought to be related to CARVEDILOL. CODE STATUS: Patient is a FULL CODE. MEDICATIONS AT HOME: - aspirin 81 mg by mouth daily - buspirone 15 mg by mouth twice a day - carvedilol 2.5 mg by mouth twice a day - citalopram 40 mg by mouth daily - vitamin B12 1000 mg by mouth daily - folic acid 1 mg by mouth daily - levocetirizine 5 mg by mouth daily - magnesium oxide 400 mg by mouth daily - Singular 10 mg by mouth daily - nicotine patch - multivitamins one tablet by mouth daily - oxybutynin 5 mg by mouth daily - pantoprazole 40 mg by mouth daily - Advair Diskus 100/50 twice a day via inhalation - thiamine 100 mg by mouth daily - Nasacort one spray daily - Incruse Ellipta 62.5 mcg per inhalation daily Also on as needed medication with: - Tylenol - albuterol sulfate - EpiPen - hydroxyzine 25 mg by mouth three times a day as needed - ipratropium/albuterol sulfate as directed - naltrexone 50 mg by mouth twice a day as needed - trazodone 50 mg by mouth at bedtime as needed - Artificial Tears PHYSICAL EXAMINATION: The patient is alert and oriented, in akinesis at rest. VITAL SIGNS: When I saw him revealed a blood pressure of 149/90 and prior to that, around 6 o'clock in the morning, it was 141/87, pulse 76, respirations 14 and his maximum temperature was 98.1 degrees Fahrenheit, oxygen saturation of 96% on 2 liters nasal cannula. EXAMINATION OF THE HEAD: Atraumatic. NECK: Neck is supple. No jugular venous distention (JVD) appreciated. LUNGS: Did not reveal any wheezing or crackles. HEART EXAMINATION: Revealed irregular, S1. Without gallops. The point of maximum impulse (PMI) is not displaced. There is no rub. ABDOMEN: Soft and nontender, bowel sounds active. EXTREMITIES: Reveal no pedal edema. NEUROLOGIC EXAMINATION: Negative for focal deficit. LABORATORY DATA: Complete blood count (CBC) on 08/25/2018 revealed a WBC of 11.6, hemoglobin 13.0 hematocrit 39.3 and platelet 168,000. Basic metabolic panel (BMP) revealed a sodium of 141, potassium 3.7, chloride 104, CO2 30, BUN 11, creatinine 0.57 and GFR more than 60, fasting glucose 108 and calcium 8.4. Serum IgG was 210.0. Chest x-ray on admission, 08/22/2018, revealed no acute disease process. CT of the neck on admission, 08/22/2018, revealed moderate chronic sinusitis involving the left ethmoid and maxillary sinuses as well as left nasal turbinates. Otherwise it was a normal study. Maxillofacial CT on 08/24/2018 revealed mucosal thickening affecting the left maxillary sinus, improved when compared to prior studies. IMPRESSION: 1. Status post angioedema. Patient does have a history of angioedema to ROMULO inhibitor and ARB. The allergy this time is not clear. Carvedilol was discontinued. He is planning to see a new cargo worker. Case was discussed yesterday with alma Aguiar. We will stay away from the carvedilol for now pending further evaluation. It is unclear whether this reaction was related to the carvedilol or not. 2. Hypertension. Not quite under control, off his antihypertensive medications, the carvedilol and he was started on amlodipine after discussing with Jayashree marquez. Today, it will be increased up to 5 mg by mouth daily and if he remains stable, he can be discharged home later today. He will call the office this coming 08/27/2018, for an appointment followup. 3. History of chronic obstructive pulmonary disease (COPD) with chronic hypoxemic respiratory failure for which he has been on oxygen supplement. 4. History of anxiety/depletion, being addressed. 5. History of gastroesophageal reflux disease (GERD). 6. History of overactive bladder. 7. History of cardiomyopathy, related to alcohol abuse. According to patient, his LVEF has improved and was more than 50% on the most recent hospitalization. 8. Tobacco smoker and currently using a nicotine patch and patient was strongly advised to cut back and quit. 9. History of EtOH abuse. Patient is well aware that he needs to avoid alcohol in view of his history. It was a pleasure to participate in the care of . Dontae Castillo for his underlying cardiac condition. I will continue to see him as needed while in the hospital and upon discharge, he will call the office for an appointment.
[2018-08-27] MEDS ORDERED: predniSONE 10 MG TAB PO SCH (09:00)
[2018-08-30] MEDS ORDERED: predniSONE 20 MG TAB PO SCH (09:00)
[2018-09-02] MEDS ORDERED: predniSONE 10 MG TAB PO SCH (09:00)
== END 2018-08-25 18:34 | disposition home or self-care (01) | DRG 811 ==
LOC: M ED 14:31 → EDBD 14:31 → M ED INP 19:40 → M MSPAV 08-23 14:15 → OBSVTOIN 08-24 10:55
PROVIDERS: ADMIT Internal Medicine; ATTEND Family Medicine
DX: T78.3XXA Angioneurotic edema, initial encounter (principal); J96.11 Chronic respiratory failure with hypoxia; I11.0 Hypertensive heart disease with heart failure; Z99.81 Dependence on supplemental oxygen; I50.9 Heart failure, unspecified; F10.10 Alcohol abuse, uncomplicated; F39 Unspecified mood [affective] disorder; F17.200 Nicotine dependence, unspecified, uncomplicated; J45.909 Unspecified asthma, uncomplicated; F41.9 Anxiety disorder, unspecified; K21.9 Gastro-esophageal reflux disease without esophagitis; N32.81 Overactive bladder; J44.9 Chronic obstructive pulmonary disease, unspecified; D75.89 Other specified diseases of blood and blood-forming organs; Z79.82 Long term (current) use of aspirin; Z79.899 Other long term (current) drug therapy; Z88.1 Allergy status to other antibiotic agents; Z91.040 Latex allergy status; Z88.8 Allergy status to other drugs, medicaments and biological substances; T44.6X5A Adverse effect of alpha-adrenoreceptor antagonists, initial encounter

== ENCOUNTER 2018-08-30 03:56 | Emergency (ER) | payer OTHER ==
[~2018-08-30] VITALS: Ht 180.3 cm; Wt 75.5 kg
[~2018-08-30 03:56] MED LIST changes: +AMLO5TAB6 PO; +MUCI600T31 PO; +NICO1DIS10 TD; +OLOP0.1D OU
[2018-08-30 03:58] VITALS: BP 113/80
--- NOTE | 2018-08-30 08:03 | REP ---
Clinical: Trauma. Technique: AP, lateral, bilateral oblique views of the right foot. Findings: Generalized age-related changes are appreciated. No acute fracture or dislocation identified. Impression: No acute fracture dislocation Electronically Signed by Flex Forrest MD 08/30/2018 07:54 A
--- NOTE | 2018-08-30 08:07 | REP ---
Clinical: Trauma. Technique: AP, lateral, bilateral oblique views of the right ankle. Findings: Lateral swelling is appreciated. Generalized degenerative changes are suggested AP view demonstrates subtle bony irregularities along the lateral aspect of the of the ankle/foot which may represent subtle avulsion fractures versus chronic degenerative changes and correlation is required. Origin of these subtle bony fragments are unclear. Impression: 1. Lateral swelling. 2. Cannot exclude degenerative changes versus subtle a avulsion fracture along the lateral aspect of the hind/midfoot region only identified on AP view. Correlation is required. Electronically Signed by Flex Forrest MD 08/30/2018 07:58 A
--- NOTE | 2018-09-03 11:23 | ED PDOC ---
Post-Departure Follow-Up dr nicole faxed formal report of right ankle film fo rfu Cuca Hopkins MD Sep 03, 2018 11:23
== END 2018-08-30 06:53 | disposition home or self-care (01) ==
LOC: M ED 03:56
DX: S93.401A Sprain of unspecified ligament of right ankle, initial encounter (principal); S90.31XA Contusion of right foot, initial encounter; X50.1XXA Overexertion from prolonged static or awkward postures, initial encounter; Y92.89 Other specified places as the place of occurrence of the external cause; Y93.9 Activity, unspecified; Y99.9 Unspecified external cause status; Z72.0 Tobacco use; Z98.61 Coronary angioplasty status; G62.9 Polyneuropathy, unspecified; I50.9 Heart failure, unspecified; I10 Essential (primary) hypertension; J45.909 Unspecified asthma, uncomplicated; J44.9 Chronic obstructive pulmonary disease, unspecified; G47.30 Sleep apnea, unspecified; Z87.01 Personal history of pneumonia (recurrent); J30.2 Other seasonal allergic rhinitis; K21.9 Gastro-esophageal reflux disease without esophagitis; E34.9 Endocrine disorder, unspecified; K76.9 Liver disease, unspecified; M54.5 Low back pain; F41.9 Anxiety disorder, unspecified; F10.10 Alcohol abuse, uncomplicated; F32.9 Major depressive disorder, single episode, unspecified; F39 Unspecified mood [affective] disorder; Z86.14 Personal history of Methicillin resistant Staphylococcus aureus infection; Z79.82 Long term (current) use of aspirin; Z79.899 Other long term (current) drug therapy; Z88.8 Allergy status to other drugs, medicaments and biological substances; Z88.1 Allergy status to other antibiotic agents; Z91.040 Latex allergy status

== ENCOUNTER 2018-09-05 20:54 | Emergency (ER) | payer OTHER ==
[~2018-09-05] VITALS: Ht 175.3 cm; Wt 75.5 kg
--- NOTE | 2018-09-05 22:33 | REP ---
Clinical: Trauma/fall . Technique: AP, lateral, bilateral oblique views of the right elbow. Findings: Lateral swelling appreciated. No acute fracture or dislocation identified. Lateral view demonstrates normal positioning to the anterior and posterior fat pads. No subcutaneous emphysema or foreign body identified. Impression: Posterior swelling. No acute fracture. Electronically Signed by Flex Forrest MD 09/05/2018 10:25 P
[2018-09-06 00:42] VITALS: BP 160/103
== END 2018-09-06 00:43 | disposition home or self-care (01) ==
LOC: M ED 20:54
DX: M70.21 Olecranon bursitis, right elbow (principal); M25.421 Effusion, right elbow; R29.6 Repeated falls; I11.0 Hypertensive heart disease with heart failure; I50.9 Heart failure, unspecified; J45.909 Unspecified asthma, uncomplicated; G62.9 Polyneuropathy, unspecified; K76.9 Liver disease, unspecified; F17.210 Nicotine dependence, cigarettes, uncomplicated; Z88.8 Allergy status to other drugs, medicaments and biological substances; Z88.1 Allergy status to other antibiotic agents; Z91.040 Latex allergy status; Z79.899 Other long term (current) drug therapy; Z79.51 Long term (current) use of inhaled steroids; Z79.82 Long term (current) use of aspirin

== ENCOUNTER 2018-10-02 21:16 | Emergency (ER) | payer OTHER ==
[~2018-10-02 21:16] MED LIST changes: -ARTI99.0 OU; +ARTIDRO2 OU; +OXYB-54 PO; -OXYB5TAB PO; -TRAZ-163 PO; +TRAZ-257 PO
[2018-10-02 21:59] LABS: BASO # 0.1 10^3/uL (0.0-0.2); BASO % 0.7 % (0.0-1.0); EOS # 0.1 10^3/uL (0.0-0.50); EOS % 0.8 % (0.0-3.0); HEMATOCRIT 38.4 % (42.0-52.0); LYMPH % 27.6 % (24.0-44.0); MEAN CORPUSCULAR HEMOGLOBIN 31.1 pg (27.0-33.0); MEAN CORPUSCULAR HGB CONC 33.9 g/dl (32.0-36.5); MEAN CORPUSCULAR VOLUME 91.9 fl (80.0-96.0); MONO # 0.8 10^3/uL (0.0-0.8); MONO % 11.8 % (0.0-5.0); NEUTROPHILS # 4.2 10^3/uL (1.8-7.7); NEUTROPHILS % 58.7 % (36.0-66.0); PLATELET COUNT, AUTOMATED 308 10^3/uL (150-450); RED BLOOD COUNT 4.18 10^6/uL (4.30-6.10); WHITE BLOOD COUNT 7.1 10^3/uL (4.0-10.0)
[2018-10-02] MEDS ORDERED: IPRATROPIUM 0.5MG/ALBUTEROL 2.5MG INH SOL UD 3ML (DUONEB)(J7620) NEB ONE (22:00)
[2018-10-02 22:34] LABS: ALT/SGPT 15 U/L (12-78); BILIRUBIN,DIRECT 0.1 MG/DL (0.0-0.2); BILIRUBIN,TOTAL 0.3 MG/DL (0.2-1.0); BLOOD UREA NITROGEN 8 MG/DL (7-18); CALCIUM LEVEL 8.5 MG/DL (8.5-10.1); CARBON DIOXIDE LEVEL 23 MEQ/L (21-32); CHLORIDE LEVEL 104 MEQ/L (98-107); CK-MB VALUE MASS < 1.0 NG/ML (<3.6); CPK CREATINE PHOSPHOKINASE 70 U/L (39-308); CREATININE FOR GFR 0.74 MG/DL (0.70-1.30); GLOMERULAR FILTRATION RATE > 60.0 (>56); GLUCOSE, FASTING 146 MG/DL (70-100); MB/CK RELATIVE INDEX 1.43 (< OR =4); NT-PRO BNP 19 PG/ML (<125); POTASSIUM SERUM 3.7 MEQ/L (3.5-5.1); SODIUM LEVEL 140 MEQ/L (136-145); THYROXINE (T4) 6.5 UG/DL (4.5-12.0); TOTAL PROTEIN 6.2 GM/DL (6.4-8.2); TROPONIN I < 0.02 NG/ML (< 0.10)
[2018-10-02] MEDS ORDERED: PRED20TA PO (22:40)
[2018-10-02 22:45] VITALS: BP 169/97
--- NOTE | 2018-10-03 01:48 | REP ---
Clinical: Cough and dyspnea . Comparison: 08/22/2018 . Findings: The mediastinum and cardiac silhouette are stable and within normal limits for portable technique. The lung garcia demonstrate scattered chronic changes including linear scarring in the left mid lung zone without acute consolidation, effusion, or pneumothorax. Skeletal structures are intact. Impression: No acute cardiopulmonary process appreciated. Electronically Signed by Flex Forrest MD 10/03/2018 01:40 A
--- NOTE | 2018-10-03 21:37 | ECGEPIP ---
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
== END 2018-10-02 22:59 | disposition home or self-care (01) ==
LOC: M ED 21:16
DX: J44.1 Chronic obstructive pulmonary disease with (acute) exacerbation (principal); I10 Essential (primary) hypertension; Z99.81 Dependence on supplemental oxygen; Z88.1 Allergy status to other antibiotic agents; Z88.8 Allergy status to other drugs, medicaments and biological substances; J30.2 Other seasonal allergic rhinitis; F10.10 Alcohol abuse, uncomplicated; Z79.899 Other long term (current) drug therapy; Z79.82 Long term (current) use of aspirin; F17.210 Nicotine dependence, cigarettes, uncomplicated

== ENCOUNTER 2018-11-11 00:56 | Emergency (ER) | payer OTHER ==
[~2018-11-11] VITALS: Ht 177.8 cm; Wt 74.1 kg
[2018-11-11 01:19] LABS: BASO # 0.1 10^3/uL (0.0-0.2); BASO % 1.1 % (0.0-1.0); EOS # 0.1 10^3/uL (0.0-0.5); EOS % 2.5 % (0.0-3.0); HEMATOCRIT 40.1 % (42.0-52.0); HEMOGLOBIN 13.7 g/dl (13.5-17.5); LYMPH # 2.4 10^3/uL (1.5-5.0); LYMPH % 49.5 % (24.0-44.0); MEAN CORPUSCULAR HEMOGLOBIN 30.8 pg (27.0-33.0); MEAN CORPUSCULAR HGB CONC 34.2 g/dl (32.0-36.5); MEAN CORPUSCULAR VOLUME 90.1 fl (80.0-96.0); MONO # 0.4 10^3/uL (0.0-0.8); MONO % 9.1 % (0.0-5.0); NEUTROPHILS # 1.8 10^3/uL (1.5-8.5); NEUTROPHILS % 37.4 % (36.0-66.0); RED BLOOD COUNT 4.45 10^6/uL (4.30-6.10); WHITE BLOOD COUNT 4.8 10^3/uL (4.0-10.0)
[2018-11-11] MEDS ORDERED: IPRATROPIUM 0.5MG/ALBUTEROL 2.5MG INH SOL UD 3ML (DUONEB)(J7620) NEB ONE (01:30)
[2018-11-11 01:42] LABS: PLATELET COUNT, AUTOMATED 87 10^3/uL (150-450)
[2018-11-11 02:32] LABS: INFLUENZA A AMPLIFICATION NEGATIVE (NEGATIVE); INFLUENZA B AMPLIFICATION NEGATIVE (NEGATIVE)
[2018-11-11 02:46] LABS: ALBUMIN 3.7 GM/DL (3.2-5.2); ALT/SGPT 95 U/L (12-78); BILIRUBIN,DIRECT 0.4 MG/DL (0.0-0.2); BLOOD UREA NITROGEN 7 MG/DL (7-18); CALCIUM LEVEL 8.6 MG/DL (8.5-10.1); CARBON DIOXIDE LEVEL 25 MEQ/L (21-32); CHLORIDE LEVEL 103 MEQ/L (98-107); CK-MB VALUE MASS < 1.0 NG/ML (<3.6); CPK CREATINE PHOSPHOKINASE 87 U/L (39-308); CREATININE FOR GFR 0.65 MG/DL (0.70-1.30); GLOMERULAR FILTRATION RATE > 60.0 (>56); GLUCOSE, FASTING 97 MG/DL (70-100); LIPASE 143 U/L (73-393); MB/CK RELATIVE INDEX 1.15 (< OR =4); NT-PRO BNP 10 PG/ML (<125); POTASSIUM SERUM 4.2 MEQ/L (3.5-5.1); SODIUM LEVEL 141 MEQ/L (136-145); TOTAL PROTEIN 6.7 GM/DL (6.4-8.2); TROPONIN I < 0.02 NG/ML (< 0.10)
--- NOTE | 2018-11-11 03:56 | REPVR ---
EXAM: US Abdomen Limited, Right Upper Quadrant EXAM DATE/TIME: 11/11/18 (2:21am) CLINICAL HISTORY: 53 year old male with RUQ pain / right flank pain TECHNIQUE: Imaging protocol: Real-time ultrasound of the abdomen with image documentation. Examination was focused on the right upper quadrant. COMPARISON: US LIVER of 12/21/15 FINDINGS: The liver is normal in size (17.2 cm length), with fatty infiltration. Gallstones and sludge. Normal gallbladder wall thickness (1.5 mm). No pericholecystic fluid is appreciated. The sonographic Pan's sign is reported to be (+). The CBD is mildly dilated (6 mm diameter). The pancreas is not well seen (obscured by overlying bowel). The right kidney measures 12.2 cm in length, with no hydronephrosis appreciated. Perhaps a duplex right intrarenal collecting system. No ascites is seen. IMPRESSION: Possible acute cholecystitis. Multiple gallstones and sludge. The gallbladder wall is thin. The sonographic Pan's sign is reported to be (+). Mild biliary dilatation. Clinical correlation is needed. Electronically signed by: Pascale Laird On 11/11/2018 03:55:34 AM
[2018-11-11 05:00] VITALS: BP 139/79
[2018-11-11] MEDS ORDERED: HYOSCYAMINE SULFATE 0.125 MG SUBL TABLET PO ONE (05:15)
[2018-11-11] MEDS ORDERED: PRED20TA PO (05:22)
[2018-11-11] MEDS ORDERED: LEVS0.124 SL (05:22)
--- NOTE | 2018-11-11 09:03 | ECGEPIP ---
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
--- NOTE | 2018-11-11 09:22 | REP ---
REASON: Dyspnea. COMPARISON: Multiple, the latest 10/02/2018. The technique utilized in obtaining the radiograph has magnified the cardiac silhouette and accentuated the interstitial markings. FINDINGS: The superior mediastinal structures are midline. The cardiac silhouette is unremarkable in size, shape, and position. The diaphragmatic surfaces of the lungs are regular, and the costophrenic angles are clear. The pulmonary garcia are clear. The imaged osseous structures are intact. IMPRESSION: There is no acute cardiopulmonary disease. Electronically Signed by Hung Bustillo DO 11/11/2018 09:25 A
--- NOTE | 2018-11-13 12:14 | ED PDOC ---
Post-Departure Follow-Up dr nicole faxed formal report of us for fu Cuca Hopkins MD Nov 13, 2018 12:14
== END 2018-11-11 05:35 | disposition home or self-care (01) ==
LOC: M ED 00:56
DX: J44.9 Chronic obstructive pulmonary disease, unspecified (principal); K80.50 Calculus of bile duct without cholangitis or cholecystitis without obstruction; K76.0 Fatty (change of) liver, not elsewhere classified; Z99.81 Dependence on supplemental oxygen; R10.11 Right upper quadrant pain; F17.200 Nicotine dependence, unspecified, uncomplicated; Z88.8 Allergy status to other drugs, medicaments and biological substances; Z88.1 Allergy status to other antibiotic agents; Z91.040 Latex allergy status; J30.2 Other seasonal allergic rhinitis; Z79.899 Other long term (current) drug therapy; Z79.51 Long term (current) use of inhaled steroids; Z79.82 Long term (current) use of aspirin

== ENCOUNTER 2018-11-12 23:15 | Emergency (ER) | payer OTHER ==
[~2018-11-12] VITALS: Ht 177.8 cm; Wt 74.1 kg
[~2018-11-12 23:15] MED LIST changes: +LEVS0.124 SL; -OXYB-54 PO; +OXYB5TAB2 PO; +TRAZ-163 PO; -TRAZ-257 PO
[2018-11-13 00:46] LABS: BASO % 0.3 % (0.0-1.0); HEMATOCRIT 36.4 % (42.0-52.0); HEMOGLOBIN 12.5 g/dl (13.5-17.5); LYMPH # 1.2 10^3/uL (1.5-5.0); LYMPH % 30.7 % (24.0-44.0); MEAN CORPUSCULAR HEMOGLOBIN 32.1 pg (27.0-33.0); MEAN CORPUSCULAR HGB CONC 34.3 g/dl (32.0-36.5); MEAN CORPUSCULAR VOLUME 93.3 fl (80.0-96.0); MONO # 0.4 10^3/uL (0.0-0.8); MONO % 11.1 % (0.0-5.0); NEUTROPHILS # 2.2 10^3/uL (1.5-8.5); NEUTROPHILS % 56.8 % (36.0-66.0); WHITE BLOOD COUNT 3.8 10^3/uL (4.0-10.0)
[2018-11-13 00:50] LABS: PLATELET COUNT, AUTOMATED 82 10^3/uL (150-450)
[2018-11-13 01:00] LABS: INR 1.02; PARTIAL THROMBOPLASTIN TIME 25.9 SECONDS (25.0-38.4); PROTHROMBIN TIME 13.1 SECONDS (11.8-14.0)
[2018-11-13 01:07] LABS: ALBUMIN 3.6 GM/DL (3.2-5.2); ALT/SGPT 80 U/L (12-78); BILIRUBIN,DIRECT 0.2 MG/DL (0.0-0.2); BILIRUBIN,TOTAL 0.7 MG/DL (0.2-1.0); BLOOD UREA NITROGEN 10 MG/DL (7-18); CALCIUM LEVEL 8.5 MG/DL (8.5-10.1); CARBON DIOXIDE LEVEL 22 MEQ/L (21-32); CHLORIDE LEVEL 104 MEQ/L (98-107); CREATININE FOR GFR 0.78 MG/DL (0.70-1.30); ETHYL ALCOHOL (ETHANOL) 0.359 % (0.000-0.010); GLOMERULAR FILTRATION RATE > 60.0 (>56); GLUCOSE, FASTING 134 MG/DL (70-100); LIPASE 146 U/L (73-393); POTASSIUM SERUM 4.7 MEQ/L (3.5-5.1); SODIUM LEVEL 140 MEQ/L (136-145); TOTAL PROTEIN 6.8 GM/DL (6.4-8.2)
[2018-11-13] MEDS ORDERED: KETOROLAC 30 MG/ML VIAL (J1885) IV ONE (01:15)
--- NOTE | 2018-11-13 01:49 | REPVR ---
EXAM: US Abdomen Limited, Right Upper Quadrant EXAM DATE/TIME: 11/13/2018 1:09 AM CLINICAL HISTORY: 53 years old, male; Abdominal pain; Acute; Additional info: Eval cholelitihiasis TECHNIQUE: Imaging protocol: Real-time ultrasound of the abdomen with image documentation. Examination was focused on the right upper quadrant. COMPARISON: GALLBLADDER US 11/11/2018 2:20 AM FINDINGS: Liver: The liver demonstrates no focal defects. Gallbladder: The gallbladder demonstrates no wall thickening measuring 1 mm right internal sludge and stones. Common bile duct: The CBD measures 5 mm. Pancreas: The pancreatic head and body appear to be within normal limits. The tail is not seen. Right kidney: The right kidney is normal measuring 12.3 cm. Intraperitoneal space: Minimal perihepatic fluid. IMPRESSION: 1. Cholelithiasis with sludge. 2. Minimal perihepatic fluid. 3. Otherwise negative right upper quadrant sonogram. Electronically signed by: Alexys Miramontes On 11/13/2018 01:48:54 AM
[2018-11-13] MEDS ORDERED: METAL LOCK LOOP XX ONE (02:49)
[2018-11-13 05:00] VITALS: BP 117/70
== END 2018-11-13 05:25 | disposition home or self-care (01) ==
LOC: M ED 23:15
DX: K80.20 Calculus of gallbladder without cholecystitis without obstruction (principal); F10.20 Alcohol dependence, uncomplicated; R06.02 Shortness of breath; I10 Essential (primary) hypertension; J44.9 Chronic obstructive pulmonary disease, unspecified; K21.9 Gastro-esophageal reflux disease without esophagitis; F32.9 Major depressive disorder, single episode, unspecified; F41.9 Anxiety disorder, unspecified; J30.2 Other seasonal allergic rhinitis; Z99.81 Dependence on supplemental oxygen; F17.200 Nicotine dependence, unspecified, uncomplicated; Z88.8 Allergy status to other drugs, medicaments and biological substances; Z88.1 Allergy status to other antibiotic agents; Z91.040 Latex allergy status; Z79.899 Other long term (current) drug therapy; Z79.52 Long term (current) use of systemic steroids; Z79.51 Long term (current) use of inhaled steroids; Z79.82 Long term (current) use of aspirin
CPT/HCPCS: 76705; 80048; 80076; 83690; 85025; 85049; 85055; 85610; 85730; 96374; 99284; G0480; J1885

== ENCOUNTER 2018-11-18 12:01 | Emergency (ER) | payer OTHER ==
[~2018-11-18] VITALS: Ht 165.1 cm; Wt 62.7 kg
[~2018-11-18 12:01] MED LIST changes: +OXYB-54 PO; -OXYB5TAB2 PO; -TRAZ-163 PO; +TRAZ-257 PO
[2018-11-18 12:35] LABS: BASO % 0.3 % (0.0-1.0); EOS # 0.1 10^3/uL (0.0-0.5); EOS % 1.7 % (0.0-3.0); HEMATOCRIT 36.9 % (42.0-52.0); HEMOGLOBIN 12.9 g/dl (13.5-17.5); LYMPH % 34.1 % (24.0-44.0); MEAN CORPUSCULAR VOLUME 91.6 fl (80.0-96.0); MONO # 0.9 10^3/uL (0.0-0.8); MONO % 14.4 % (0.0-5.0); NEUTROPHILS # 2.9 10^3/uL (1.5-8.5); NEUTROPHILS % 49.2 % (36.0-66.0); PLATELET COUNT, AUTOMATED 100 10^3/uL (150-450); RED BLOOD COUNT 4.03 10^6/uL (4.30-6.10); WHITE BLOOD COUNT 5.9 10^3/uL (4.0-10.0)
[2018-11-18] MEDS ORDERED: ONDANSETRON 4MG/2ML VIAL (J2405) IV ONE (12:45)
[2018-11-18] MEDS ORDERED: MORPHINE 4 MG/ML 1ML VIAL/SYRINGE (J2270) IV ONE (12:45)
[2018-11-18 13:02] LABS: ALBUMIN 3.6 GM/DL (3.2-5.2); BILIRUBIN,DIRECT 0.1 MG/DL (0.0-0.2); BILIRUBIN,TOTAL 0.8 MG/DL (0.2-1.0); TOTAL PROTEIN 7.1 GM/DL (6.4-8.2)
[2018-11-18 13:14] LABS: INR 1.06; PARTIAL THROMBOPLASTIN TIME 26.5 SECONDS (25.0-38.4); PROTHROMBIN TIME 13.5 SECONDS (11.8-14.0)
--- NOTE | 2018-11-18 14:16 | REP ---
RIGHT UPPER QUADRANT ULTRASOUND: Real-time sonographic evaluation of the right upper quadrant performed. The gallbladder demonstrates sludge and stones. The patient is tender at the site of the gallbladder. There is no gallbladder wall thickening or pericholecystic fluid. There is no intrahepatic or extrahepatic biliary dilatation, common bile duct measuring 4 mm. The liver demonstrates diffuse increased echotexture compatible with diffuse fibrofatty infiltration. The length of the liver is 17.3 cm, slightly enlarged. No gross liver or pancreatic mass is seen. The pancreas is not well seen due to overlying bowel gas. Right kidney demonstrates no hydronephrosis with normal size 11.8 cm in length. IMPRESSION: Sludge and stones in the gallbladder without gallbladder wall thickening, free fluid or biliary dilatation. Diffuse fibrofatty infiltration of the liver. Electronically Signed by Stalin Anderson MD 11/18/2018 06:08 P
[2018-11-18] MEDS ORDERED: NS 1,000 ML IV ONE (14:30)
[2018-11-18 15:39] VITALS: BP 135/85
[2018-11-18] MEDS ORDERED: PERC5TAB12 PO (15:40)
== END 2018-11-18 15:50 | disposition home or self-care (01) ==
LOC: M ED 12:01
DX: K80.70 Calculus of gallbladder and bile duct without cholecystitis without obstruction (principal); K21.9 Gastro-esophageal reflux disease without esophagitis; G62.9 Polyneuropathy, unspecified; K76.9 Liver disease, unspecified; F10.10 Alcohol abuse, uncomplicated; M79.9 Soft tissue disorder, unspecified; J30.2 Other seasonal allergic rhinitis; F17.210 Nicotine dependence, cigarettes, uncomplicated; Z88.8 Allergy status to other drugs, medicaments and biological substances; Z88.1 Allergy status to other antibiotic agents; Z91.040 Latex allergy status; Z79.899 Other long term (current) drug therapy; Z79.52 Long term (current) use of systemic steroids; Z79.51 Long term (current) use of inhaled steroids; Z79.82 Long term (current) use of aspirin
CPT/HCPCS: 76705; 80047; 80076; 81001; 83605; 83690; 85025; 85610; 85730; 96374; 96375; 99284; J2270; J2405

== ENCOUNTER → 2018-12-07 | Outpatient (CLI) | payer OTHER ==
[~2018-12-07] MED LIST changes: -OXYB-54 PO; +OXYB5TAB2 PO; +PERC5TAB12 PO; +TRAZ-163 PO; -TRAZ-257 PO
--- NOTE | 2018-12-07 09:52 | REP ---
Hepatobiliary scan: History: Gallbladder calculus. Progressive right upper quadrant pain times 1 month. Technique: 6.6 mCi technetium 99m mebrofenin is injected and sequential anterior abdominal images are acquired. Scintigraphic findings: The initial hepatocellular parenchymal uptake phase is normal. Intrahepatic bile ducts and gallbladder are first visualized at 10 minutes. Subsequent images demonstrate a normal parenchymal washout from the liver. The extrahepatic bile duct is visualized at the 20 minutes and the duodenum at 40 minutes. Impression: Normal hepatobiliary scan. Electronically Signed by Sudarshan Louis MD 12/07/2018 11:25 A
== END ==
LOC: M RAD 07:56
PROVIDERS: ATTEND Surgery
DX: K80.10 Calculus of gallbladder with chronic cholecystitis without obstruction (principal)
CPT/HCPCS: 78226; A9537

== ENCOUNTER 2018-12-14 22:55 | Emergency (ER) | payer OTHER ==
[~2018-12-14] VITALS: Ht 177.8 cm; Wt 74.0 kg
[2018-12-15 00:18] LABS: VENOUS BASE EXCESS -2.5 (-2.0-2.0); VENOUS HCO3 23.2 MEQ/L (23.0-27.0); VENOUS O2 SATURATION 98.4 % (60.0-80.0); VENOUS PARTIAL PRESSURE CO2 43.3 mmHg (38.0-50.0); VENOUS PARTIAL PRESSURE O2 142.5 mmHg (30.0-50.0); VENOUS PH 7.346 UNITS (7.330-7.430); VENOUS STANDARD HCO3 22.4 MEQ/L; VENOUS TOTAL CO2 24.5 MEQ/L (24.0-28.0)
[2018-12-15 00:23] LABS: BASO % 0.7 % (0.0-1.0); EOS # 0.2 10^3/uL (0.0-0.5); EOS % 4.2 % (0.0-3.0); HEMATOCRIT 37.6 % (42.0-52.0); HEMOGLOBIN 12.7 g/dl (13.5-17.5); LYMPH # 1.2 10^3/uL (1.5-5.0); LYMPH % 27.6 % (24.0-44.0); MEAN CORPUSCULAR HEMOGLOBIN 31.6 pg (27.0-33.0); MEAN CORPUSCULAR HGB CONC 33.8 g/dl (32.0-36.5); MEAN CORPUSCULAR VOLUME 93.5 fl (80.0-96.0); MONO # 0.3 10^3/uL (0.0-0.8); MONO % 6.2 % (0.0-5.0); NEUTROPHILS # 2.8 10^3/uL (1.5-8.5); NEUTROPHILS % 61.1 % (36.0-66.0); PLATELET COUNT, AUTOMATED 153 10^3/uL (150-450); RED BLOOD COUNT 4.02 10^6/uL (4.30-6.10); WHITE BLOOD COUNT 4.5 10^3/uL (4.0-10.0)
[2018-12-15 00:47] LABS: ALBUMIN 3.6 GM/DL (3.2-5.2); ALT/SGPT 40 U/L (12-78); BILIRUBIN,DIRECT < 0.1 MG/DL (0.0-0.2); BILIRUBIN,TOTAL 0.2 MG/DL (0.2-1.0); CK-MB VALUE MASS < 1.0 NG/ML (<3.6); CPK CREATINE PHOSPHOKINASE 74 U/L (39-308); MB/CK RELATIVE INDEX 1.35 (< OR =4); NT-PRO BNP 9 PG/ML (<125); THYROXINE (T4) 6.3 UG/DL (4.5-12.0); TOTAL PROTEIN 7.2 GM/DL (6.4-8.2); TROPONIN I < 0.02 NG/ML (< 0.10)
[2018-12-15] MEDS ORDERED: PRED20TA PO (02:12)
[2018-12-15 02:16] VITALS: BP 122/72
--- NOTE | 2018-12-15 07:51 | ECGEPIP ---
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
--- NOTE | 2018-12-15 08:25 | REP ---
Portable chest x-ray: Sitting AP view. History: Dyspnea and cough. Comparison study: November 11, 2018. Findings: Oxygen delivery tubing and monitoring electrodes are seen. The lungs are well inflated. No infiltrate is seen. Pleural angles are sharp. Heart size is normal. Impression: No acute disease. Electronically Signed by Sudarshan Louis MD 12/15/2018 08:17 A
== END 2018-12-15 02:45 | disposition home or self-care (01) ==
LOC: M ED 22:55
DX: J44.1 Chronic obstructive pulmonary disease with (acute) exacerbation (principal); I45.89 Other specified conduction disorders; J30.2 Other seasonal allergic rhinitis; F17.200 Nicotine dependence, unspecified, uncomplicated; Z79.82 Long term (current) use of aspirin; Z79.899 Other long term (current) drug therapy; Z88.8 Allergy status to other drugs, medicaments and biological substances; Z88.1 Allergy status to other antibiotic agents; Z91.040 Latex allergy status

== ENCOUNTER → 2018-12-28 | Outpatient (REF) | payer OTHER ==
[2018-12-28 12:00] LABS: BASO # 0.1 10^3/uL (0.0-0.2); BASO % 0.9 % (0.0-1.0); EOS # 0.2 10^3/uL (0.0-0.5); EOS % 2.7 % (0.0-3.0); HEMOGLOBIN 13.2 g/dl (13.5-17.5); LYMPH # 1.8 10^3/uL (1.5-5.0); MEAN CORPUSCULAR HEMOGLOBIN 31.6 pg (27.0-33.0); MEAN CORPUSCULAR HGB CONC 33.8 g/dl (32.0-36.5); MEAN CORPUSCULAR VOLUME 93.3 fl (80.0-96.0); MONO % 15.1 % (0.0-5.0); NEUTROPHILS # 3.7 10^3/uL (1.5-8.5); PLATELET COUNT, AUTOMATED 267 10^3/uL (150-450); RED BLOOD COUNT 4.18 10^6/uL (4.30-6.10); WHITE BLOOD COUNT 6.8 10^3/uL (4.0-10.0)
[2018-12-28 12:33] LABS: ALBUMIN 3.7 GM/DL (3.2-5.2); ALT/SGPT 38 U/L (12-78); BILIRUBIN,TOTAL 1.1 MG/DL (0.2-1.0); BLOOD UREA NITROGEN 10 MG/DL (7-18); CALCIUM LEVEL 8.7 MG/DL (8.5-10.1); CARBON DIOXIDE LEVEL 26 MEQ/L (21-32); CHLORIDE LEVEL 101 MEQ/L (98-107); CREATININE FOR GFR 0.62 MG/DL (0.70-1.30); GLOMERULAR FILTRATION RATE > 60.0 (>56); GLUCOSE, FASTING 139 MG/DL (70-100); NT-PRO BNP 67 PG/ML (<125); POTASSIUM SERUM 3.7 MEQ/L (3.5-5.1); SODIUM LEVEL 136 MEQ/L (136-145); TOTAL PROTEIN 7.2 GM/DL (6.4-8.2)
== END ==
LOC: M SFHCPLAZ 10:29
PROVIDERS: ATTEND Family Medicine
DX: Z01.818 Encounter for other preprocedural examination (principal)

== ENCOUNTER 2019-01-04 06:02 | Day surgery (SDC) | payer OTHER ==
[~2019-01-04] VITALS: Ht 177.8 cm; Wt 72.6 kg
[~2019-01-04 06:02] MED LIST changes: +AMPICILLIN SOD/SULBACTAM SOD 3 GM in D5W MINI-BAG PLUS 100 ML IV ONE; +LIDOCAINE 1% MDV 20ML VIAL SQ PRN; +LR 1,000 ML IV ONE
[2019-01-04] MEDS ORDERED: LIDOCAINE 1% SDV INJ 30 ML VIAL As Ordered ONE (06:56)
[2019-01-04] MEDS ORDERED: BUPIVACAINE HCL 0.25% 30 ML VIAL As Ordered ONE (06:56)
[2019-01-04] MEDS ORDERED: dexameTHASONE 4 MG/ML 1ML VIAL (J1100) As Ordered ONE (07:14)
[2019-01-04] MEDS ORDERED: LIDOCAINE 2% INJ 100 MG/5 ML SDV (FOR ANES.) As Ordered ONE (07:14)
[2019-01-04] MEDS ORDERED: ONDANSETRON 4MG/2ML VIAL (J2405) As Ordered ONE (07:14)
[2019-01-04] MEDS ORDERED: ROCURONIUM BROMIDE 50 MG/5 ML VIAL As Ordered ONE (07:14)
[2019-01-04] MEDS ORDERED: PROPOFOL 200 MG/20 ML VIAL As Ordered ONE (07:14)
[2019-01-04] MEDS ORDERED: MIDAZOLAM INJ 2 MG/2 ML VIAL (J2250) As Ordered ONE (07:15)
[2019-01-04] MEDS ORDERED: fentaNYL 100 MCG/2 ML INJECTION (J3010) As Ordered ONE (07:15)
[2019-01-04] MEDS ORDERED: SUGAMMADEX SODIUM 500 MG/5 ML VIAL (BRIDION) As Ordered ONE (07:47)
[2019-01-04] MEDS ORDERED: ACETAMINOPHEN 1000MG 100ML IV BTL (OFIRMEV) (J0131 PER 10MG) As Ordered ONE (07:48)
[2019-01-04] MEDS ORDERED: HYDROmorphone HCL 2 MG/ML 1ML VIAL (J1170) As Ordered ONE (07:52)
[2019-01-04] MEDS ORDERED: BUPIVACAINE HCL 0.25% 10 ML VIAL As Ordered ONE (08:29)
[2019-01-04] MEDS ORDERED: BUPIVACAINE LIPOSOME/PF 1.3% 20ML VIAL (13.3MG/ML)(EXPAREL)(C9290 PER1MG) As Ordered ONE (08:29)
[2019-01-04] MEDS ORDERED: NORCO, ANEXSIA 5/325MG TABLET (HYDROcodone/ACETAMINOPHEN) PO PRN (09:30)
[2019-01-04] MEDS ORDERED: fentaNYL 100 MCG/2 ML INJECTION (J3010) IV PRN (09:30)
[2019-01-04] MEDS ORDERED: LR 1,000 ML IV SCH (09:30)
[2019-01-04] MEDS ORDERED: oxyCODONE 5MG TAB PO PRN (09:30)
[2019-01-04] MEDS ORDERED: KETOROLAC 30 MG/ML VIAL (J1885) IV PRN (09:30)
[2019-01-04] MEDS ORDERED: ONDANSETRON 4MG/2ML VIAL (J2405) IV PRN ×2 (09:30)
[2019-01-04] MEDS ORDERED: METOCLOPRAMIDE INJ 10MG/2ML VIAL (J2765) IV PRN (09:30)
[2019-01-04] MEDS ORDERED: HYDROMORPHONE HCL 0.5 MG/ 0.5 ML SYRINGE (J1170 PER 1) IV PRN (09:30)
[2019-01-04 10:45] VITALS: BP 158/87
== END 2019-01-04 10:45 | disposition home or self-care (01) ==
LOC: M SDC 06:02
PROVIDERS: ATTEND Surgery
DX: K80.10 Calculus of gallbladder with chronic cholecystitis without obstruction (principal); I10 Essential (primary) hypertension; K21.9 Gastro-esophageal reflux disease without esophagitis; I42.9 Cardiomyopathy, unspecified; J44.9 Chronic obstructive pulmonary disease, unspecified; F41.9 Anxiety disorder, unspecified; F32.9 Major depressive disorder, single episode, unspecified; Z91.040 Latex allergy status; Z88.8 Allergy status to other drugs, medicaments and biological substances; Z79.899 Other long term (current) drug therapy; F17.218 Nicotine dependence, cigarettes, with other nicotine-induced disorders
CPT/HCPCS: 47562; 88304; C9290; J0131; J1100; J1170; J2250; J2405; J3010

== ENCOUNTER 2019-02-16 08:13 | Emergency (ER) | payer OTHER ==
[~2019-02-16] VITALS: Ht 180.3 cm; Wt 68.8 kg
[~2019-02-16 08:13] MED LIST changes: -AMPICILLIN SOD/SULBACTAM SOD 3 GM in D5W MINI-BAG PLUS 100 ML IV ONE; -LIDOCAINE 1% MDV 20ML VIAL SQ PRN; -LR 1,000 ML IV ONE; -OXYB5TAB2 PO; +OXYB5TAB3 PO
[2019-02-16 08:38] LABS: ABG BASE EXCESS 2.8 (-2.0-2.0); ABG HCO3 25.5 MEQ/L (22.0-26.0); ABG O2 SATURATION 99.2 % (95.0-99.0); ABG PARTIAL PRESSURE CO2 33.7 mmHg (35.0-45.0); ABG PARTIAL PRESSURE O2 178.6 mmHg (75.0-100.0); ABG TOTAL CO2 26.5 MEQ/L (22.0-29.0); ABG pH (ARTERIAL) 7.497 UNITS (7.350-7.450)
[2019-02-16 08:56] LABS: BASO % 0.7 % (0.0-1.0); EOS % 0.7 % (0.0-3.0); HEMATOCRIT 43.3 % (42.0-52.0); HEMOGLOBIN 14.8 g/dl (13.5-17.5); LYMPH # 2.3 10^3/uL (1.5-5.0); LYMPH % 49.7 % (24.0-44.0); MEAN CORPUSCULAR HEMOGLOBIN 30.5 pg (27.0-33.0); MEAN CORPUSCULAR HGB CONC 34.2 g/dl (32.0-36.5); MEAN CORPUSCULAR VOLUME 89.3 fl (80.0-96.0); MONO # 0.3 10^3/uL (0.0-0.8); MONO % 7.5 % (0.0-5.0); NEUTROPHILS # 1.9 10^3/uL (1.5-8.5); RED BLOOD COUNT 4.85 10^6/uL (4.30-6.10); WHITE BLOOD COUNT 4.5 10^3/uL (4.0-10.0)
[2019-02-16] MEDS: IPRATROPIUM 0.5MG/ALBUTEROL 2.5MG INH SOL UD 3ML (DUONEB)(J7620) NEB PRN ×2 (08:58→10:05)
[2019-02-16 09:08] LABS: INFLUENZA A AMPLIFICATION NEGATIVE (NEGATIVE); INFLUENZA B AMPLIFICATION NEGATIVE (NEGATIVE)
[2019-02-16 09:16] LABS: INR 0.98; PROTHROMBIN TIME 12.7 SECONDS (11.8-14.0)
[2019-02-16 09:31] LABS: PLATELET COUNT, AUTOMATED 45 10^3/uL (150-450)
--- NOTE | 2019-02-16 09:45 | REP ---
REASON: Cough and dyspnea. COMPARISON: Multiple. The technique utilized in obtaining the radiograph has magnified the cardiac silhouette and accentuated the interstitial markings. FINDINGS: The superior mediastinal structures are midline. The cardiac silhouette is unremarkable in size, shape, and position. The diaphragmatic surfaces of the lungs are regular, and the costophrenic angles are clear. The pulmonary garcia are clear. The imaged osseous structures are intact. IMPRESSION: There is no acute cardiopulmonary disease. Electronically Signed by Hung Bustillo DO 02/16/2019 10:22 A
[2019-02-16 09:49] LABS: ALT/SGPT 134 U/L (12-78); BILIRUBIN,DIRECT 0.4 MG/DL (0.0-0.2); BILIRUBIN,TOTAL 0.7 MG/DL (0.2-1.0); BLOOD UREA NITROGEN 7 MG/DL (7-18); CALCIUM LEVEL 8.6 MG/DL (8.5-10.1); CARBON DIOXIDE LEVEL 27 MEQ/L (21-32); CHLORIDE LEVEL 96 MEQ/L (98-107); CK-MB VALUE MASS < 1.0 NG/ML (<3.6); CPK CREATINE PHOSPHOKINASE 92 U/L (39-308); CREATININE FOR GFR 0.64 MG/DL (0.70-1.30); ETHYL ALCOHOL (ETHANOL) 0.368 % (0.000-0.010); GLOMERULAR FILTRATION RATE > 60.0 (>56); GLUCOSE, FASTING 110 MG/DL (70-100); MB/CK RELATIVE INDEX 1.09 (< OR =4); NT-PRO BNP 24 PG/ML (<125); POTASSIUM SERUM 3.2 MEQ/L (3.5-5.1); SODIUM LEVEL 137 MEQ/L (136-145); TOTAL PROTEIN 7.8 GM/DL (6.4-8.2); TROPONIN I < 0.02 NG/ML (< 0.10)
[2019-02-16 11:07] VITALS: O2SAT 97
[2019-02-16] MEDS ORDERED: DOXY100C37 PO (11:19)
[2019-02-16 11:28] VITALS: BP 139/93
[2019-02-16] MEDS ORDERED: DOXYCYCLINE HYCLATE 100 MG TAB PO ONE (11:30)
[2019-02-16] MEDS ORDERED: POTASSIUM CHLORIDE 10 MEQ SR TABLET PO ONE (11:30)
--- NOTE | 2019-02-16 12:12 | ECGEPIP ---
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
== END 2019-02-16 11:40 | disposition home or self-care (01) ==
LOC: M ED 08:13 → EDBD 08:13 → M ED 11:40
DX: R06.03 Acute respiratory distress (principal); J44.1 Chronic obstructive pulmonary disease with (acute) exacerbation; F10.10 Alcohol abuse, uncomplicated; Y90.1 Blood alcohol level of 20-39 mg/100 ml; I10 Essential (primary) hypertension; K21.9 Gastro-esophageal reflux disease without esophagitis; F33.9 Major depressive disorder, recurrent, unspecified; Z99.81 Dependence on supplemental oxygen; Z79.899 Other long term (current) drug therapy; Z79.82 Long term (current) use of aspirin; Z88.1 Allergy status to other antibiotic agents; Z88.8 Allergy status to other drugs, medicaments and biological substances; Z91.040 Latex allergy status; F17.210 Nicotine dependence, cigarettes, uncomplicated
CPT/HCPCS: 36415; 36600; 71045; 80048; 80076; 82550; 82553; 82803; 83605; 83880; 85025; 85049; 85055; 85610; 87040; 87502; 93005; 93041; 94640; 99291; G0480

== ENCOUNTER 2019-03-12 21:35 | Emergency (ER) | payer OTHER ==
[~2019-03-12] VITALS: Ht 180.3 cm; Wt 65.9 kg
[~2019-03-12 21:35] MED LIST changes: +DOXY100C37 PO; +OXYB-54 PO; -OXYB5TAB3 PO; -TRAZ-163 PO; +TRAZ-257 PO
[2019-03-12] MEDS ORDERED: methylPREDNISolone INJ 125 MG/2 ML VIAL (J2930) IV ONE (21:45)
[2019-03-12] MEDS: IPRATROPIUM 0.5MG/ALBUTEROL 2.5MG INH SOL UD 3ML (DUONEB)(J7620) NEB PRN ×3 (21:58→22:22)
[2019-03-12 22:05] LABS: BASO % 0.7 % (0.0-1.0); EOS # 0.1 10^3/uL (0.0-0.5); EOS % 2.7 % (0.0-3.0); HEMATOCRIT 40.5 % (42.0-52.0); HEMOGLOBIN 13.3 g/dl (13.5-17.5); LYMPH # 2.3 10^3/uL (1.5-5.0); LYMPH % 53.2 % (24.0-44.0); MEAN CORPUSCULAR HEMOGLOBIN 30.2 pg (27.0-33.0); MEAN CORPUSCULAR HGB CONC 32.8 g/dl (32.0-36.5); MONO # 0.4 10^3/uL (0.0-0.8); MONO % 9.6 % (0.0-5.0); NEUTROPHILS # 1.5 10^3/uL (1.5-8.5); NEUTROPHILS % 33.6 % (36.0-66.0); PLATELET COUNT, AUTOMATED 170 10^3/uL (150-450); WHITE BLOOD COUNT 4.4 10^3/uL (4.0-10.0)
[2019-03-12 22:25] LABS: ABG BASE EXCESS 0.1 (-2.0-2.0); ABG O2 SATURATION 99.3 % (95.0-99.0); ABG PARTIAL PRESSURE CO2 41.6 mmHg (35.0-45.0); ABG PARTIAL PRESSURE O2 209.6 mmHg (75.0-100.0); ABG STANDARD HCO3 24.6 MEQ/L (22.0-26.0); ABG TOTAL CO2 26.3 MEQ/L (22.0-29.0); ABG pH (ARTERIAL) 7.397 UNITS (7.350-7.450)
[2019-03-12 22:41] LABS: BLOOD UREA NITROGEN 7 MG/DL (7-18); CALCIUM LEVEL 8.8 MG/DL (8.5-10.1); CARBON DIOXIDE LEVEL 27 MEQ/L (21-32); CHLORIDE LEVEL 101 MEQ/L (98-107); CK-MB VALUE MASS 1.5 NG/ML (<3.6); CPK CREATINE PHOSPHOKINASE 127 U/L (39-308); CREATININE FOR GFR 0.53 MG/DL (0.70-1.30); ETHYL ALCOHOL (ETHANOL) 0.282 % (0.000-0.010); GLOMERULAR FILTRATION RATE > 60.0 (>56); GLUCOSE, FASTING 78 MG/DL (70-100); MB/CK RELATIVE INDEX 1.18 (< OR =4); POTASSIUM SERUM 3.9 MEQ/L (3.5-5.1); SODIUM LEVEL 140 MEQ/L (136-145); TROPONIN I < 0.02 NG/ML (< 0.10)
[2019-03-12] MEDS ORDERED: AMLO5TAB6 PO (23:02)
[2019-03-12] MEDS ORDERED: OLOP0.1D OD (23:02)
[2019-03-12] MEDS ORDERED: VISISOL2 OU (23:02)
[2019-03-12] MEDS ORDERED: IPRATROPIUM 0.5MG/ALBUTEROL 2.5MG INH SOL UD 3ML (DUONEB)(J7620) NEB PRN (23:45)
[2019-03-13] VITALS: BP 151/83
--- NOTE | 2019-03-13 01:24 | REP ---
Clinical: Cough and dyspnea . Comparison: 04/19/2018 . Findings: The mediastinum and cardiac silhouette are stable and within normal limits for portable technique. The lung garcia demonstrate mild chronic changes r without acute consolidation, effusion, or pneumothorax. Skeletal structures are intact. Impression: No acute cardiopulmonary process appreciated. Electronically Signed by Flex Forrest MD 03/13/2019 01:16 A
--- NOTE | 2019-03-13 10:19 | ECGEPIP ---
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
== END 2019-03-13 00:17 | disposition home or self-care (01) ==
LOC: M ED 21:35
DX: J96.11 Chronic respiratory failure with hypoxia (principal); F10.10 Alcohol abuse, uncomplicated; Y90.1 Blood alcohol level of 20-39 mg/100 ml; I10 Essential (primary) hypertension; J44.9 Chronic obstructive pulmonary disease, unspecified; K74.69 Other cirrhosis of liver; F33.9 Major depressive disorder, recurrent, unspecified; K21.9 Gastro-esophageal reflux disease without esophagitis; Z99.81 Dependence on supplemental oxygen; Z79.899 Other long term (current) drug therapy; Z79.82 Long term (current) use of aspirin; Z88.1 Allergy status to other antibiotic agents; Z88.8 Allergy status to other drugs, medicaments and biological substances; Z91.040 Latex allergy status; F17.210 Nicotine dependence, cigarettes, uncomplicated
CPT/HCPCS: 36415; 36600; 71045; 80048; 82550; 82553; 82803; 83605; 85025; 87040; 93005; 93041; 99291; G0480

== ENCOUNTER → 2019-06-07 | Outpatient (CLI) | payer OTHER ==
[~2019-06-07] MED LIST changes: -ARTIDRO2 OU; +OLOP0.1D OD; +POLYOPD OU; +VISISOL2 OU
--- NOTE | 2019-06-07 14:48 | REPPI ---
RIGHT SHOULDER THREE VIEWS: Three views right shoulder are performed. There is no acute fracture, dislocation, or intrinsic bone disease. Joint spaces appear unremarkable. IMPRESSION: Negative right shoulder series. Electronically Signed by Stalin Anderson MD 06/07/2019 03:02 P
== END ==
LOC: M PLAIMG 13:34
PROVIDERS: ATTEND Family Medicine
DX: M75.41 Impingement syndrome of right shoulder (principal)

== ENCOUNTER → 2019-06-07 | Outpatient (REF) | payer OTHER ==
[2019-06-07 15:33] LABS: BASO % 0.5 % (0.0-1.0); EOS # 0.1 10^3/uL (0.0-0.5); EOS % 1.1 % (0.0-3.0); HEMATOCRIT 44.5 % (42.0-52.0); HEMOGLOBIN 14.7 g/dl (13.5-17.5); LYMPH # 2.7 10^3/uL (1.5-5.0); LYMPH % 42.8 % (24.0-44.0); MEAN CORPUSCULAR HEMOGLOBIN 30.4 pg (27.0-33.0); MEAN CORPUSCULAR VOLUME 92.1 fl (80.0-96.0); MONO # 0.5 10^3/uL (0.0-0.8); MONO % 8.4 % (0.0-5.0); NEUTROPHILS # 2.9 10^3/uL (1.5-8.5); NEUTROPHILS % 46.9 % (36.0-66.0); PLATELET COUNT, AUTOMATED 252 10^3/uL (150-450); RED BLOOD COUNT 4.83 10^6/uL (4.30-6.10); WHITE BLOOD COUNT 6.2 10^3/uL (4.0-10.0)
[2019-06-07 15:34] LABS: HEMATOCRIT 44.5 % (42.0-52.0)
[2019-06-07 15:50] LABS: HEMOGLOBIN A1c 5.6 %
[2019-06-07 16:13] LABS: ALBUMIN 3.9 GM/DL (3.2-5.2); ALT/SGPT 24 U/L (12-78); BILIRUBIN,TOTAL 0.3 MG/DL (0.2-1.0); BLOOD UREA NITROGEN 6 MG/DL (7-18); C REACTIVE PROTEIN QUANTITATIV 0.41 MG/DL (0.00-0.30); CALCIUM LEVEL 9.1 MG/DL (8.5-10.1); CARBON DIOXIDE LEVEL 30 MEQ/L (21-32); CHLORIDE LEVEL 103 MEQ/L (98-107); CHOLESTEROL LEVEL 208 MG/DL (<200); FREE T4 1.07 NG/DL (0.76-1.46); GLOMERULAR FILTRATION RATE > 60.0 (>56); GLUCOSE, FASTING 88 MG/DL (70-100); HDL CHOLESTEROL 100 MG/DL (>40); LDL CHOLESTEROL 91 MG/DL (<100); MAGNESIUM LEVEL 2.1 MG/DL (1.8-2.4); NON-HDL-C 108 MG/DL; POTASSIUM SERUM 3.9 MEQ/L (3.5-5.1); SODIUM LEVEL 140 MEQ/L (136-145); THYROID STIMULATING HORMONE 0.942 uIU/ML (0.358-3.740); TOTAL PROTEIN 7.7 GM/DL (6.4-8.2); TRIGLYCERIDES LEVEL 84 MG/DL (<150)
[2019-06-07 16:18] LABS: VITAMIN B12 LEVEL 774 PG/ML (247-911)
== END ==
LOC: M SFHCPLAZ 13:25
PROVIDERS: ATTEND Family Medicine
DX: Z12.5 Encounter for screening for malignant neoplasm of prostate (principal); I10 Essential (primary) hypertension; F10.10 Alcohol abuse, uncomplicated; G62.9 Polyneuropathy, unspecified

== ENCOUNTER 2019-09-16 10:15 | Emergency (ER) | payer OTHER ==
[~2019-09-16] VITALS: Ht 180.3 cm; Wt 60.0 kg
[~2019-09-16 10:15] MED LIST changes: +AMLO1TAB24 PO; -AMLO5TAB6 PO; -OLOP0.1D OD; +PANT40TA29 PO; -PANT40TA3 PO; -VITA100T88 PO; +VITAMIN B-1100 M4 PO
[2019-09-16] MEDS ORDERED: ATOR1TAB19 PO (10:57)
[2019-09-16 11:02] LABS: BASO % 0.4 % (0.0-1.0); EOS % 0.2 % (0.0-3.0); HEMATOCRIT 39.3 % (42.0-52.0); HEMOGLOBIN 14.1 g/dl (13.5-17.5); LYMPH # 1.3 10^3/uL (1.5-5.0); LYMPH % 22.5 % (24.0-44.0); MEAN CORPUSCULAR HEMOGLOBIN 31.5 pg (27.0-33.0); MEAN CORPUSCULAR HGB CONC 35.9 g/dl (32.0-36.5); MEAN CORPUSCULAR VOLUME 87.7 fl (80.0-96.0); MONO # 0.5 10^3/uL (0.0-0.8); MONO % 8.6 % (0.0-5.0); NEUTROPHILS # 3.9 10^3/uL (1.5-8.5); NEUTROPHILS % 67.8 % (36.0-66.0); RED BLOOD COUNT 4.48 10^6/uL (4.30-6.10); WHITE BLOOD COUNT 5.7 10^3/uL (4.0-10.0)
[2019-09-16 11:08] LABS: PLATELET COUNT, AUTOMATED 56 10^3/uL (150-450)
--- NOTE | 2019-09-16 11:09 | REP ---
Clinical: Cough and dyspnea . Comparison: 03/12/2019 . Findings: The mediastinum and cardiac silhouette are stable and within normal limits for portable technique. The lung garcia are clear without acute consolidation, effusion, or pneumothorax. Skeletal structures are intact. Impression: No acute cardiopulmonary process appreciated. Electronically Signed by Flex Forrest MD 09/16/2019 11:00 A
[2019-09-16 11:28] LABS: ALBUMIN 3.6 GM/DL (3.2-5.2); ALT/SGPT 39 U/L (12-78); BILIRUBIN,DIRECT 0.4 MG/DL (0.0-0.2); BILIRUBIN,TOTAL 0.8 MG/DL (0.2-1.0); BLOOD UREA NITROGEN 12 MG/DL (7-18); CALCIUM LEVEL 8.8 MG/DL (8.5-10.1); CARBON DIOXIDE LEVEL 25 MEQ/L (21-32); CHLORIDE LEVEL 92 MEQ/L (98-107); GLOMERULAR FILTRATION RATE > 60.0 (>56); GLUCOSE, FASTING 117 MG/DL (70-100); POTASSIUM SERUM 2.8 MEQ/L (3.5-5.1); SODIUM LEVEL 132 MEQ/L (136-145); TOTAL PROTEIN 7.2 GM/DL (6.4-8.2)
[2019-09-16] MEDS ORDERED: IPRATROPIUM 0.5MG/ALBUTEROL 2.5MG INH SOL UD 3ML (DUONEB) NEB ONE (11:45)
[2019-09-16] MEDS ORDERED: POTASSIUM CHLORIDE 10 MEQ SR TABLET PO ONE (11:45)
[2019-09-16 14:30] VITALS: BP 145/91
--- NOTE | 2019-09-17 07:22 | ECGEPIP ---
[facility] - ED Test Date: 2019-09-16 Pat Name: GORDON SERNA Department: Room: - Gender: Male Sky Cap: conchis : 1965 Requested By: Stephan Kumar Order Number: [id number] Reading MD: Robb Martin Measurements Intervals [place] Rate: 91 P: -13 PA: 150 QRS: -15 QRSD: 107 T: 70 QT: 382 QTc: 470 Interpretive Statements SINUS RHYTHM ST DEVIATION AND MODERATE T-WAVE ABNORMALITY, CONSIDER ANTERIOR ISCHEMIA Low voltages throughout Inferior Q waves of uncertain significance ST-T wave changes new from 03-12-19 Electronically Signed on 09-17-2019 7:22:02 EDT by Robb Martin
--- NOTE | 2019-09-17 07:27 | ECGEPIP ---
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
== END 2019-09-16 14:40 | disposition home or self-care (01) ==
LOC: M ED 10:15
DX: J44.9 Chronic obstructive pulmonary disease, unspecified (principal); I10 Essential (primary) hypertension; K21.9 Gastro-esophageal reflux disease without esophagitis; F10.20 Alcohol dependence, uncomplicated; F17.200 Nicotine dependence, unspecified, uncomplicated; Z88.8 Allergy status to other drugs, medicaments and biological substances; Z88.1 Allergy status to other antibiotic agents; Z91.040 Latex allergy status; J30.1 Allergic rhinitis due to pollen; Z79.899 Other long term (current) drug therapy; Z79.51 Long term (current) use of inhaled steroids; Z99.81 Dependence on supplemental oxygen

== ENCOUNTER 2019-09-23 21:20 | Emergency (ER) | payer OTHER ==
[~2019-09-23 21:20] MED LIST changes: +ATOR1TAB19 PO; +KCL 10MEQ IN STERILE WATER 100ML As Ordered ONE; +POTASSIUM CHLORIDE 10 MEQ SR TABLET As Ordered ONE; +methylPREDNISolone 125MG 2ML VIAL As Ordered ONE
[2019-10-20 14:10] LABS: BLOOD UREA NITROGEN 7 MG/DL (7-18); CALCIUM LEVEL 7.9 MG/DL (8.5-10.1); CARBON DIOXIDE LEVEL 24 MEQ/L (21-32); CHLORIDE LEVEL 99 MEQ/L (98-107); CK-MB VALUE MASS < 1.0 NG/ML (<3.6); CPK CREATINE PHOSPHOKINASE 87 U/L (39-308); CREATININE FOR GFR 0.55 MG/DL (0.70-1.30); GLOMERULAR FILTRATION RATE > 60.0 (>56); GLUCOSE, FASTING 158 MG/DL (70-100); POTASSIUM SERUM 2.9 MEQ/L (3.5-5.1); SODIUM LEVEL 138 MEQ/L (136-145)
[2019-10-20 14:11] LABS: MB/CK RELATIVE INDEX 1.15 (< OR =4); TROPONIN I < 0.02 NG/ML (< 0.10)
[2019-10-25 23:38] LABS: HEMATOCRIT 30.2 % (42.0-52.0); HEMOGLOBIN 10.6 g/dl (13.5-17.5); MEAN CORPUSCULAR HEMOGLOBIN 31.5 pg (27.0-33.0); MEAN CORPUSCULAR HGB CONC 35.1 g/dl (32.0-36.5); MEAN CORPUSCULAR VOLUME 89.6 fl (80.0-96.0); PLATELET COUNT, AUTOMATED 196 10^3/uL (150-450); RED BLOOD COUNT 3.37 10^6/uL (4.30-6.10); WHITE BLOOD COUNT 5.1 10^3/uL (4.0-10.0)
[2019-10-25 23:43] LABS: INR 0.99; PROTHROMBIN TIME 13.3 SECONDS (11.8-14.0)
== END 2019-09-23 21:25 | disposition home or self-care (01) ==
LOC: M ED 21:20
DX: J44.1 Chronic obstructive pulmonary disease with (acute) exacerbation (principal); E87.6 Hypokalemia; I10 Essential (primary) hypertension; Z79.899 Other long term (current) drug therapy; Z87.891 Personal history of nicotine dependence; Z79.52 Long term (current) use of systemic steroids; Z79.51 Long term (current) use of inhaled steroids
CPT/HCPCS: 71045; 80048; 82550; 82553; 83735; 85027; 85610; 94640; 96374; 99285; J2930

== ENCOUNTER 2019-09-25 12:25 | Emergency (ER) | payer OTHER ==
[~2019-09-25 12:25] MED LIST changes: -KCL 10MEQ IN STERILE WATER 100ML As Ordered ONE; -POTASSIUM CHLORIDE 10 MEQ SR TABLET As Ordered ONE; -methylPREDNISolone 125MG 2ML VIAL As Ordered ONE
[2019-09-25] MEDS ORDERED: diphenhydrAMINE 50MG/ML VIAL (J1200) As Ordered ONE (13:59)
[2019-09-25] MEDS ORDERED: methylPREDNISolone 125MG 2ML VIAL As Ordered ONE (14:10)
[2019-09-25] MEDS ORDERED: MAGNESIUM SULFATE 1GM/100ML D5W BAG (10MG/ML) As Ordered ONE (16:38)
[2019-11-03 10:11] LABS: BASO % 0.1 % (0.0-1.0); EOS % 0.3 % (0.0-3.0); HEMATOCRIT 32.6 % (42.0-52.0); HEMOGLOBIN 11.1 g/dl (13.5-17.5); LYMPH # 1.5 10^3/uL (1.5-5.0); LYMPH % 20.3 % (24.0-44.0); MEAN CORPUSCULAR HEMOGLOBIN 31.2 pg (27.0-33.0); MEAN CORPUSCULAR VOLUME 91.6 fl (80.0-96.0); MONO # 0.9 10^3/uL (0.0-0.8); MONO % 12.4 % (0.0-5.0); NEUTROPHILS % 66.4 % (36.0-66.0); PLATELET COUNT, AUTOMATED 261 10^3/uL (150-450); RED BLOOD COUNT 3.56 10^6/uL (4.30-6.10); WHITE BLOOD COUNT 7.6 10^3/uL (4.0-10.0)
[2019-11-03 13:53] LABS: ALT/SGPT 75 U/L (12-78); BILIRUBIN,TOTAL 0.5 MG/DL (0.2-1.0); BLOOD UREA NITROGEN 8 MG/DL (7-18); CALCIUM LEVEL 8.1 MG/DL (8.5-10.1); CARBON DIOXIDE LEVEL 28 MEQ/L (21-32); CHLORIDE LEVEL 102 MEQ/L (98-107); CREATININE FOR GFR 0.52 MG/DL (0.70-1.30); GLOMERULAR FILTRATION RATE > 60.0 (>56); GLUCOSE, FASTING 102 MG/DL (70-100); POTASSIUM SERUM 3.5 MEQ/L (3.5-5.1); SODIUM LEVEL 138 MEQ/L (136-145); TOTAL PROTEIN 6.3 GM/DL (6.4-8.2)
[2019-12-08 10:11] LABS: VENOUS HCO3 24.8 MEQ/L (23.0-27.0); VENOUS PARTIAL PRESSURE CO2 41.2 mmHg (38.0-50.0); VENOUS PARTIAL PRESSURE O2 62.7 mmHg (30.0-50.0); VENOUS PH 7.398 UNITS (7.330-7.430); VENOUS STANDARD HCO3 24.3 MEQ/L; VENOUS TOTAL CO2 26.1 MEQ/L (24.0-28.0)
[2019-12-08 10:12] LABS: VENOUS O2 SATURATION 90.8 % (60.0-80.0)
== END 2019-09-25 19:55 | disposition home or self-care (01) ==
LOC: M ED 12:25
DX: R20.2 Paresthesia of skin (principal); E83.42 Hypomagnesemia; T78.40XA Allergy, unspecified, initial encounter; Y92.239 Unspecified place in hospital as the place of occurrence of the external cause; F17.200 Nicotine dependence, unspecified, uncomplicated; Z79.899 Other long term (current) drug therapy; Z79.82 Long term (current) use of aspirin; Z79.51 Long term (current) use of inhaled steroids; Z91.040 Latex allergy status
CPT/HCPCS: 80053; 82803; 83735; 85025; 96365; 96366; 96375; 99283; J1200; J2930; J3475

== ENCOUNTER → 2019-09-29 | Emergency (ER) | payer OTHER ==
[~2019-09-29] MED LIST changes: +DOXY-350 PO; +GABA-1171 PO; +GABAPENTIN 100 MG CAP As Ordered ONE; +GABAPENTIN 100 MG CAP ONE; +GI COCKTAIL 50ML BTL(HYOSCYAMINE/MAALOX/LIDOCAINE VISCOUS)(1:3:1) As Ordered ONE; +GI COCKTAIL 50ML BTL(HYOSCYAMINE/MAALOX/LIDOCAINE VISCOUS)(1:3:1) ONE; +ISOVUE-370 76% 100ML VIAL As Ordered ONE; +SENO8.6T10 PO
[2019-11-14 17:11] LABS: BASO % 0.4 % (0.0-1.0); EOS # 0.2 10^3/uL (0.0-0.5); EOS % 2.4 % (0.0-3.0); HEMATOCRIT 31.6 % (42.0-52.0); HEMOGLOBIN 10.6 g/dl (13.5-17.5); LYMPH # 1.7 10^3/uL (1.5-5.0); LYMPH % 24.9 % (24.0-44.0); MEAN CORPUSCULAR HEMOGLOBIN 31.5 pg (27.0-33.0); MEAN CORPUSCULAR HGB CONC 33.5 g/dl (32.0-36.5); MONO # 0.9 10^3/uL (0.0-0.8); MONO % 13.6 % (0.0-5.0); NEUTROPHILS # 3.9 10^3/uL (1.5-8.5); PLATELET COUNT, AUTOMATED 251 10^3/uL (150-450); RED BLOOD COUNT 3.36 10^6/uL (4.30-6.10); WHITE BLOOD COUNT 6.7 10^3/uL (4.0-10.0)
[2019-12-11 15:16] LABS: ALT/SGPT 44 U/L (12-78); BILIRUBIN,TOTAL 0.4 MG/DL (0.2-1.0); BLOOD UREA NITROGEN 6 MG/DL (7-18); CALCIUM LEVEL 8.1 MG/DL (8.5-10.1); CARBON DIOXIDE LEVEL 28 MEQ/L (21-32); CHLORIDE LEVEL 107 MEQ/L (98-107); CREATININE FOR GFR 0.41 MG/DL (0.70-1.30); GLOMERULAR FILTRATION RATE > 60.0 (>56); GLUCOSE, FASTING 90 MG/DL (70-100); POTASSIUM SERUM 3.6 MEQ/L (3.5-5.1); SODIUM LEVEL 142 MEQ/L (136-145)
== END | disposition home or self-care (01) ==
LOC: M ED 15:25
DX: R10.9 Unspecified abdominal pain (principal); R20.2 Paresthesia of skin; R21 Rash and other nonspecific skin eruption; J44.9 Chronic obstructive pulmonary disease, unspecified; E78.00 Pure hypercholesterolemia, unspecified; Z79.899 Other long term (current) drug therapy; Z79.52 Long term (current) use of systemic steroids; Z79.51 Long term (current) use of inhaled steroids; Z91.040 Latex allergy status
CPT/HCPCS: 36415; 74177; 80053; 85025; 99284; Q9967

== ENCOUNTER 2019-10-04 09:05 | Emergency (ER) | payer OTHER ==
[~2019-10-04 09:05] MED LIST changes: -DOXY-350 PO; -GABA-1171 PO; -GABAPENTIN 100 MG CAP As Ordered ONE; -GABAPENTIN 100 MG CAP ONE; -GI COCKTAIL 50ML BTL(HYOSCYAMINE/MAALOX/LIDOCAINE VISCOUS)(1:3:1) As Ordered ONE; -GI COCKTAIL 50ML BTL(HYOSCYAMINE/MAALOX/LIDOCAINE VISCOUS)(1:3:1) ONE; -ISOVUE-370 76% 100ML VIAL As Ordered ONE; -SENO8.6T10 PO; +predniSONE 20 MG TAB As Ordered ONE; +predniSONE 20 MG TAB ONE
--- NOTE | 2019-11-14 10:46 | ECGEPIP ---
SINUS RHYTHM NORMAL ECG DELAYED R PROGRESSION SEE SCANNED DOWNTIME REPORT MTDD
[2019-11-17 18:20] LABS: BASO # 0.1 10^3/uL (0.0-0.2); BASO % 0.7 % (0.0-1.0); EOS # 0.2 10^3/uL (0.0-0.5); EOS % 2.2 % (0.0-3.0); HEMATOCRIT 34.1 % (42.0-52.0); HEMOGLOBIN 11.2 g/dl (13.5-17.5); LYMPH % 27.6 % (24.0-44.0); MEAN CORPUSCULAR HEMOGLOBIN 31.6 pg (27.0-33.0); MEAN CORPUSCULAR HGB CONC 32.8 g/dl (32.0-36.5); MEAN CORPUSCULAR VOLUME 96.3 fl (80.0-96.0); MONO # 0.6 10^3/uL (0.0-0.8); MONO % 8.8 % (0.0-5.0); NEUTROPHILS # 4.4 10^3/uL (1.5-8.5); NEUTROPHILS % 60.4 % (36.0-66.0); PLATELET COUNT, AUTOMATED 206 10^3/uL (150-450); RED BLOOD COUNT 3.54 10^6/uL (4.30-6.10); WHITE BLOOD COUNT 7.3 10^3/uL (4.0-10.0)
[2019-12-23 11:03] LABS: ABG PARTIAL PRESSURE CO2 41.2 mmHg (35.0-45.0); ABG PARTIAL PRESSURE O2 94.8 mmHg (75.0-100.0); ABG pH (ARTERIAL) 7.423 UNITS (7.350-7.450)
[2019-12-23 11:04] LABS: ABG BASE EXCESS 1.7 (-2.0-2.0); ABG HCO3 26.3 MEQ/L (22.0-26.0); ABG O2 SATURATION 97.2 % (95.0-99.0); ABG TOTAL CO2 27.6 MEQ/L (22.0-29.0)
[2019-12-23 11:45] LABS: ALBUMIN 3.1 GM/DL (3.2-5.2); ALT/SGPT 33 U/L (12-78); BILIRUBIN,TOTAL 0.3 MG/DL (0.2-1.0); BLOOD UREA NITROGEN 5 MG/DL (7-18); CALCIUM LEVEL 8.6 MG/DL (8.5-10.1); CARBON DIOXIDE LEVEL 27 MEQ/L (21-32); CHLORIDE LEVEL 105 MEQ/L (98-107); CREATININE FOR GFR 0.49 MG/DL (0.70-1.30); FOLATE 11.7 NG/ML; GLOMERULAR FILTRATION RATE > 60.0 (>56); GLUCOSE, FASTING 73 MG/DL (70-100); NT-PRO BNP 328 PG/ML (<125); POTASSIUM SERUM 4.1 MEQ/L (3.5-5.1); SODIUM LEVEL 138 MEQ/L (136-145); TOTAL PROTEIN 6.3 GM/DL (6.4-8.2); TROPONIN I < 0.02 NG/ML (< 0.10); VITAMIN B12 LEVEL 1480 PG/ML
== END 2019-10-04 11:00 | disposition home or self-care (01) ==
LOC: M ED 09:05
DX: G90.09 Other idiopathic peripheral autonomic neuropathy (principal); J44.9 Chronic obstructive pulmonary disease, unspecified; R91.8 Other nonspecific abnormal finding of lung field; G89.29 Other chronic pain; M54.5 Low back pain; I10 Essential (primary) hypertension; J30.2 Other seasonal allergic rhinitis; Z91.040 Latex allergy status; Z79.899 Other long term (current) drug therapy

== ENCOUNTER → 2019-10-08 | Emergency (ER) | payer OTHER ==
[~2019-10-08] MED LIST changes: +DOXY-350 PO; +GABA-1171 PO; +SENO8.6T10 PO; -predniSONE 20 MG TAB As Ordered ONE; -predniSONE 20 MG TAB ONE
[2019-11-10 13:08] LABS: BASO % 0.6 % (0.0-1.0); EOS # 0.2 10^3/uL (0.0-0.5); EOS % 3.7 % (0.0-3.0); HEMOGLOBIN 9.9 g/dl (13.5-17.5); LYMPH # 1.7 10^3/uL (1.5-5.0); LYMPH % 27.4 % (24.0-44.0); MEAN CORPUSCULAR HEMOGLOBIN 31.9 pg (27.0-33.0); MEAN CORPUSCULAR VOLUME 96.8 fl (80.0-96.0); MONO # 0.4 10^3/uL (0.0-0.8); MONO % 6.4 % (0.0-5.0); NEUTROPHILS # 3.9 10^3/uL (1.5-8.5); NEUTROPHILS % 61.7 % (36.0-66.0); PLATELET COUNT, AUTOMATED 238 10^3/uL (150-450); WHITE BLOOD COUNT 6.3 10^3/uL (4.0-10.0)
[2019-11-21 13:32] LABS: BLOOD UREA NITROGEN 9 MG/DL (7-18); CALCIUM LEVEL 8.5 MG/DL (8.5-10.1); CARBON DIOXIDE LEVEL 24 MEQ/L (21-32); CHLORIDE LEVEL 106 MEQ/L (98-107); CPK CREATINE PHOSPHOKINASE 38 U/L (39-308); CREATININE FOR GFR 0.52 MG/DL (0.70-1.30); ETHYL ALCOHOL (ETHANOL) 0.206 % (0.000-0.010); GLOMERULAR FILTRATION RATE > 60.0 (>56); GLUCOSE, FASTING 181 MG/DL (70-100); MB/CK RELATIVE INDEX 2.63 (< OR =4); NT-PRO BNP 127 PG/ML (<125); POTASSIUM SERUM 3.3 MEQ/L (3.5-5.1); SODIUM LEVEL 139 MEQ/L (136-145); TROPONIN I < 0.02 NG/ML (< 0.10)
== END | disposition home or self-care (01) ==
LOC: M ED 20:20
DX: J44.9 Chronic obstructive pulmonary disease, unspecified (principal); F10.10 Alcohol abuse, uncomplicated; F17.210 Nicotine dependence, cigarettes, uncomplicated; Z79.899 Other long term (current) drug therapy
CPT/HCPCS: 36415; 71046; 80048; 82550; 82553; 83605; 83880; 85025; 87040; 99284; G0480

== ENCOUNTER 2019-10-12 02:40 | Emergency (ER) | payer OTHER ==
[~2019-10-12 02:40] MED LIST changes: -DOXY-350 PO; -GABA-1171 PO; -SENO8.6T10 PO
--- NOTE | 2019-11-11 14:15 | ECGEPIP ---
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
[2019-11-25 13:34] LABS: BASO % 0.2 % (0.0-1.0); EOS # 0.3 10^3/uL (0.0-0.5); EOS % 3.1 % (0.0-3.0); HEMATOCRIT 36.3 % (42.0-52.0); HEMOGLOBIN 12.1 g/dl (13.5-17.5); LYMPH # 2.4 10^3/uL (1.5-5.0); LYMPH % 22.9 % (24.0-44.0); MEAN CORPUSCULAR HEMOGLOBIN 32.5 pg (27.0-33.0); MEAN CORPUSCULAR HGB CONC 33.3 g/dl (32.0-36.5); MEAN CORPUSCULAR VOLUME 97.6 fl (80.0-96.0); MONO # 0.7 10^3/uL (0.0-0.8); MONO % 6.5 % (0.0-5.0); NEUTROPHILS # 6.9 10^3/uL (1.5-8.5); NEUTROPHILS % 67.1 % (36.0-66.0); PLATELET COUNT, AUTOMATED 280 10^3/uL (150-450); RED BLOOD COUNT 3.72 10^6/uL (4.30-6.10); WHITE BLOOD COUNT 10.3 10^3/uL (4.0-10.0)
== END 2019-10-12 04:55 | disposition home or self-care (01) ==
LOC: M ED 02:40
DX: R20.2 Paresthesia of skin (principal); R93.0 Abnormal findings on diagnostic imaging of skull and head, not elsewhere classified; J44.9 Chronic obstructive pulmonary disease, unspecified; J30.2 Other seasonal allergic rhinitis; F17.210 Nicotine dependence, cigarettes, uncomplicated; Z79.899 Other long term (current) drug therapy

== ENCOUNTER 2019-10-23 23:51 | Emergency (ER) | payer OTHER ==
[~2019-10-23] VITALS: Ht 180.3 cm; Wt 70.5 kg
[2019-10-23 23:58] VITALS: BP 147/94
[2019-10-24] MEDS ORDERED: dexameTHASONE 20MG/5ML VIAL (J1100 PER 1MG) IV ONE (01:00)
[2019-10-24] MEDS ORDERED: PRED20TA PO (02:11)
[2019-10-24] MEDS ORDERED: COMBIVENT RESPIMAT 100-20MCG INHALER 4GM INH SCH (09:00)
--- NOTE | 2019-10-31 14:12 | REP ---
PORTABLE CHEST X-RAY CLINICAL: Dyspnea. COMPARISON: 10/08/2019. FINDINGS: Mediastinum and cardiac silhouette normal. Lung garcia clear. No focal consolidation, effusion, or pneumothorax. Skeletal structures are intact. IMPRESSION: Normal portable chest x-ray. MTDD
== END 2019-10-24 03:16 | disposition home or self-care (01) ==
LOC: M ED 23:51
DX: J44.9 Chronic obstructive pulmonary disease, unspecified (principal); R20.2 Paresthesia of skin; I10 Essential (primary) hypertension; F10.10 Alcohol abuse, uncomplicated; D69.6 Thrombocytopenia, unspecified; Z99.81 Dependence on supplemental oxygen; F17.200 Nicotine dependence, unspecified, uncomplicated
CPT/HCPCS: 71045; 96374; 99284; J1100

== ENCOUNTER 2019-10-29 23:46 | Emergency (ER) | payer OTHER ==
[~2019-10-29] VITALS: Ht 180.3 cm; Wt 70.5 kg
[~2019-10-29 23:46] MED LIST changes: -DOXY-350 PO; -GABA-1171 PO; -SENO8.6T10 PO
[2019-10-30] MEDS ORDERED: LORazepam 2 MG/ML VIAL IV STA (00:27)
[2019-10-30] MEDS ORDERED: LORazepam 2 MG/ML VIAL As Ordered ONE (00:53)
[2019-10-30 00:57] LABS: BASO % 0.4 % (0.0-1.0); EOS # 0.1 10^3/uL (0.0-0.5); EOS % 1.3 % (0.0-3.0); HEMATOCRIT 36.7 % (42.0-52.0); HEMOGLOBIN 12.3 g/dl (13.5-17.5); LYMPH # 2.6 10^3/uL (1.5-5.0); LYMPH % 27.9 % (24.0-44.0); MEAN CORPUSCULAR HEMOGLOBIN 32.3 pg (27.0-33.0); MEAN CORPUSCULAR HGB CONC 33.5 g/dl (32.0-36.5); MEAN CORPUSCULAR VOLUME 96.3 fl (80.0-96.0); MONO # 0.7 10^3/uL (0.0-0.8); MONO % 7.8 % (0.0-5.0); NEUTROPHILS # 5.8 10^3/uL (1.5-8.5); NEUTROPHILS % 62.4 % (36.0-66.0); PLATELET COUNT, AUTOMATED 286 10^3/uL (150-450); RED BLOOD COUNT 3.81 10^6/uL (4.30-6.10); VENOUS PARTIAL PRESSURE CO2 44.9 mmHg (38.0-50.0); VENOUS PH 7.426 UNITS (7.330-7.430); VENOUS TOTAL CO2 30.2 MEQ/L (24.0-28.0); WHITE BLOOD COUNT 9.3 10^3/uL (4.0-10.0)
[2019-10-30 00:58] LABS: VENOUS BASE EXCESS 3.9 (-2.0-2.0); VENOUS HCO3 28.9 MEQ/L (23.0-27.0); VENOUS O2 SATURATION 94.9 % (60.0-80.0); VENOUS STANDARD HCO3 27.9 MEQ/L
[2019-10-30 01:27] LABS: BLOOD UREA NITROGEN 12 MG/DL (7-18); CALCIUM LEVEL 9.1 MG/DL (8.5-10.1); CARBON DIOXIDE LEVEL 29 MEQ/L (21-32); CHLORIDE LEVEL 105 MEQ/L (98-107); CREATININE FOR GFR 1.21 MG/DL (0.70-1.30); GLOMERULAR FILTRATION RATE > 60.0 (>56); GLUCOSE, FASTING 101 MG/DL (70-100); POTASSIUM SERUM 4.3 MEQ/L (3.5-5.1); SODIUM LEVEL 139 MEQ/L (136-145)
--- NOTE | 2019-10-30 03:14 | REPVR ---
PROCEDURE INFORMATION: Exam: MR Lumbar Spine Without Contrast. Exam date and time: 10/30/2019 2:31 AM Age: 54 years old Clinical indication: Numbness; Additional info: Saddle parethesia TECHNIQUE: Imaging protocol: Multiplanar magnetic resonance images of the lumbar spine without intravenous contrast. COMPARISON: No relevant prior studies available. FINDINGS: Vertebrae: The lumbar vertebral bodies are normal in height, without abnormal subluxation. There is a focal concavity/Schmorl's node involving the inferior L1 endplate. Small concavity is identified of the superior L3 and L4 endplates. Spinal cord: The distal end of the conus medullaris ends at L1-L2, normal in position. Multilevel findings: Degenerative disc disease is noted at multiple lumbar levels, with a decrease in the T2 signal intensity of the discs as well as disc bulge/osteophyte complexes. L1-L2: Minimal disc bulging, without significant narrowing of the thecal sac or neural foramina. L2-L3: No significant narrowing of the thecal sac or neural foramina. L3-L4: Bilateral facet arthropathy with hypertrophy of the ligamentum flavum. A small broad-based disc bulge is identified, with mild narrowing of the thecal sac. Mild bilateral neural foraminal narrowing. Modic endplate changes. L4-L5: Bilateral facet arthropathy with hypertrophy of the ligamentum flavum. A broad-based disc bulge is identified causing flattening of the ventral border of the thecal sac without significant overall narrowing. Mild to moderate left and mild right neural foraminal narrowing. There is narrowing of both lateral recesses. L5-S1: Facet arthropathy identified. Minimal disc bulging, without significant narrowing of the thecal sac or neural foramina. Other bones/joints: Nonspecific heterogeneous signal intensity of the visualized bone marrow. A linear focus of T1 hyperintensity is identified within the lumbar spinal canal, consistent with a fibrolipoma of the filum terminale. Kidneys and ureters: Abnormal signal intensity is identified at the midpole of the left kidney, which is incompletely visualized. Soft tissues: No significant paraspinal swelling. IMPRESSION: 1. Degenerative changes are noted at multiple lumbar levels, as described above. 2. Mild narrowing of the thecal sac at L3-L4. 3. Neural foraminal narrowing identified at L3-L4 and L4-L5. 4. Nonspecific heterogeneous signal intensity of the visualized bone marrow. This can be due to an increase in the cellular content of the marrow, although additional pathology cannot be excluded. 5. Fibrolipoma of the filum terminale. 6. Abnormal signal intensity is identified at the midpole of the left kidney, which is incompletely visualized. Correlation with ultrasonography recommended. Electronically signed by: Truong Jean Baptiste On 10/30/2019 03:14:21 AM
[2019-10-30 03:30] VITALS: BP 138/79
--- NOTE | 2019-10-31 10:48 | ED PDOC ---
Post-Departure Follow-Up yoav nicole and sukhwinder faxed formal report of mri ls spine for fu Cuca Hopkins MD Oct 31, 2019 10:48
== END 2019-10-30 04:18 | disposition home or self-care (01) ==
LOC: M ED 23:46 → EDBD 23:46 → M ED 10-30 04:18
DX: R20.2 Paresthesia of skin (principal); R06.02 Shortness of breath; R93.7 Abnormal findings on diagnostic imaging of other parts of musculoskeletal system; D17.79 Benign lipomatous neoplasm of other sites; M48.061 Spinal stenosis, lumbar region without neurogenic claudication; J44.9 Chronic obstructive pulmonary disease, unspecified; F17.200 Nicotine dependence, unspecified, uncomplicated; F41.1 Generalized anxiety disorder; F10.220 Alcohol dependence with intoxication, uncomplicated; Z79.51 Long term (current) use of inhaled steroids; Z79.52 Long term (current) use of systemic steroids; Z79.82 Long term (current) use of aspirin; Z79.899 Other long term (current) drug therapy; Z88.1 Allergy status to other antibiotic agents; Z88.8 Allergy status to other drugs, medicaments and biological substances; Z91.040 Latex allergy status
CPT/HCPCS: 72148; 80048; 82803; 85025; 96374; 99284; J2060

== ENCOUNTER → 2019-10-29 | Outpatient (CLI) | payer OTHER ==
[~2019-10-29] MED LIST changes: +DOXY-350 PO; +GABA-1171 PO; +SENO8.6T10 PO
--- NOTE | 2019-11-27 07:55 | REP ---
LOW DOSE LUNG SCREENING CT CLINICAL: History of nicotine dependence. TECHNIQUE: Axial noncontrast images from the thoracic inlet to the upper abdomen using low dose lung screening technique. COMPARISON: Chest CT dated 08/21/2018. FINDINGS: Mild/moderate emphysematous changes are appreciated primarily involving the bilateral upper lung zones. Somewhat ill-defined areas of linear scarring in the left upper lobe noted and improved as compared to prior examination. No consolidation. No nodule or mass lesion. No effusion. No pneumothorax. Tracheobronchial tree is patent. IMPRESSION: Emphysematous changes and scattered somewhat ill-defined linear scarring in the left upper lobe remain similar to prior examination. No obvious nodule or mass lesions. Findings consistent with Lung-RADS category 1. Management and recommendations include annual low dose CT surveillance. [facility]
== END ==
LOC: M RAD 12:54
PROVIDERS: ATTEND Physician Assistant
DX: Z12.2 Encounter for screening for malignant neoplasm of respiratory organs (principal); F17.218 Nicotine dependence, cigarettes, with other nicotine-induced disorders; J43.9 Emphysema, unspecified; J98.4 Other disorders of lung

== ENCOUNTER 2019-11-01 08:20 | Observation (INO) | payer OTHER ==
[~2019-11-01] VITALS: Ht 180.3 cm; Wt 62.0 kg
[2019-11-01 08:57] LABS: BASO # 0.1 10^3/uL (0.0-0.2); BASO % 0.8 % (0.0-1.0); EOS # 0.2 10^3/uL (0.0-0.5); EOS % 2.5 % (0.0-3.0); HEMOGLOBIN 13.8 g/dl (13.5-17.5); LYMPH % 37.8 % (24.0-44.0); MEAN CORPUSCULAR HEMOGLOBIN 31.8 pg (27.0-33.0); MEAN CORPUSCULAR HGB CONC 32.1 g/dl (32.0-36.5); MEAN CORPUSCULAR VOLUME 99.1 fl (80.0-96.0); MONO # 0.8 10^3/uL (0.0-0.8); NEUTROPHILS # 3.9 10^3/uL (1.5-8.5); NEUTROPHILS % 48.5 % (36.0-66.0); PLATELET COUNT, AUTOMATED 263 10^3/uL (150-450); RED BLOOD COUNT 4.34 10^6/uL (4.30-6.10)
--- NOTE | 2019-11-01 09:49 | REPVR ---
PROCEDURE INFORMATION: Exam: XR Chest, 1 View Exam date and time: 11/01/2019 8:54 AM Age: 54 years old Clinical indication: Cough and dyspnea; Additional info: Dyspnea/cough TECHNIQUE: Imaging protocol: XR of the chest Views: 1 view. COMPARISON: CR Chest, 1 view 10/24/2019 1:08 AM FINDINGS: Lungs: No acute infiltrate is seen. Pleural space: No pneumothorax or pleural effusion is seen. Heart/Mediastinum: No cardiomegaly. Bones/joints: The visualized osseous structures are unremarkable. No acute fracture or dislocation is seen. IMPRESSION: No acute infiltrate, pneumothorax or pleural effusion is seen. Electronically signed by: Kunal Case On 11/01/2019 09:49:31 AM
[2019-11-01 11:09] LABS: ALBUMIN 3.4 GM/DL (3.2-5.2); ALT/SGPT 51 U/L (12-78); BILIRUBIN,DIRECT 0.1 MG/DL (0.0-0.2); BILIRUBIN,TOTAL 0.4 MG/DL (0.2-1.0); BLOOD UREA NITROGEN 10 MG/DL (7-18); CALCIUM LEVEL 9.5 MG/DL (8.5-10.1); CARBON DIOXIDE LEVEL 28 MEQ/L (21-32); CHLORIDE LEVEL 106 MEQ/L (98-107); GLOMERULAR FILTRATION RATE > 60.0 (>56); GLUCOSE, FASTING 81 MG/DL (70-100); POTASSIUM SERUM 4.2 MEQ/L (3.5-5.1); SODIUM LEVEL 141 MEQ/L (136-145)
[2019-11-01 11:11] LABS: VITAMIN B12 LEVEL 611 PG/ML (247-911)
[2019-11-01] MEDS ORDERED: ISOVUE-370 76% 100ML VIAL As Ordered ONE ×2 (11:48→12:26)
--- NOTE | 2019-11-01 13:11 | REPVR ---
PROCEDURE INFORMATION: Exam: CT Head Without Contrast Exam date and time: 11/01/2019 12:47 PM Age: 54 years old Clinical indication: Other: Parasthesia TECHNIQUE: Imaging protocol: Computed tomography of the head without contrast. Radiation optimization: All CT scans at this facility use at least one of these dose optimization techniques: automated exposure control; mA and/or kV adjustment per patient size (includes targeted exams where dose is matched to clinical indication); or iterative reconstruction. COMPARISON: CT Head without contrast 09/10/2017 3:10 PM FINDINGS: Brain: There is mild ill-defined patchy hypodensity within the bilateral cerebral periventricular white matter, consistent with chronic microvascular ischemic changes. There is mild diffuse cerebral atrophy present, consistent with this patient's age. Ventricles: The ventricular system demonstrates mild diffuse compensatory enlargement. Bones/joints: Unremarkable. No acute fracture. Sinuses: Visualized sinuses are unremarkable. No fluid levels. Mastoid air cells: Visualized mastoid air cells are well aerated. Soft tissues: Unremarkable. IMPRESSION: 1. No acute infarction, masses or hemorrhage is seen. No acute intracranial abnormality is identified. 2. Diffuse age-related cerebral atrophy and mild chronic microvascular white matter ischemic changes. Electronically signed by: Kunal Case On 11/01/2019 13:11:20 PM
--- NOTE | 2019-11-01 13:19 | REPVR ---
PROCEDURE INFORMATION: Exam: CT Angiography Chest With Contrast Exam date and time: 11/01/2019 12:47 PM Age: 54 years old Clinical indication: Pain; Other: SOB TECHNIQUE: Imaging protocol: Computed tomographic angiography of the chest with intravenous contrast. 3D rendering (Not supervised by radiologist): MIP and/or 3D reconstructed images were created by the technologist. Radiation optimization: All CT scans at this facility use at least one of these dose optimization techniques: automated exposure control; mA and/or kV adjustment per patient size (includes targeted exams where dose is matched to clinical indication); or iterative reconstruction. Contrast material: ISOVUE 370; Contrast volume: 150 ml; Contrast route: INTRAVENOUS (IV); COMPARISON: CT ANGIO CHEST 09/10/2017 3:13 PM FINDINGS: Pulmonary arteries: The pulmonary arteries are adequately opacified. No evidence of pulmonary embolism in the main, central, lobar or segmental pulmonary arteries. Aorta: There is mild dilation of the ascending thoracic aorta measuring 4 cms in maximum AP diameter. Lungs: Mild chronic fibrotic scarring is seen in the left upper lobe axial image 37. No acute infiltrate or consolidation is seen. Pleural space: There is biapical pleural thickening and fibrotic scarring consistent with remote granulomatous organism exposure. No pleural effusion or pneumothorax is seen. Heart: No cardiomegaly. No pericardial effusion. Lymph nodes: No enlarged lymph nodes. Bones/joints: Unremarkable. No acute fracture. Soft tissues: Unremarkable. IMPRESSION: 1. The pulmonary arteries are adequately opacified. No evidence of pulmonary embolism in the main, central, lobar or segmental pulmonary arteries. 2. No acute infiltrate or consolidation is seen. Electronically signed by: Kunal Case On 11/01/2019 13:19:15 PM
--- NOTE | 2019-11-01 13:46 | REPVR ---
PROCEDURE INFORMATION: Exam: CT Abdomen And Pelvis With Contrast Exam date and time: 11/01/2019 12:47 PM Age: 54 years old Clinical indication: Abdominal pain; Additional info: Abdominal discomfort TECHNIQUE: Imaging protocol: Computed tomography of the abdomen and pelvis with intravenous contrast. Radiation optimization: All CT scans at this facility use at least one of these dose optimization techniques: automated exposure control; mA and/or kV adjustment per patient size (includes targeted exams where dose is matched to clinical indication); or iterative reconstruction. Contrast material: ISOVUE 370; Contrast volume: 150 ml; Contrast route: INTRAVENOUS (IV); COMPARISON: CT ABD/PEL W/IV CONTRAST ONLY 09/10/2017 3:13 PM FINDINGS: Liver: There is a diffuse decrease in hepatic parenchymal density, consistent with fatty infiltration.There are no focal lesions present. Gallbladder and bile ducts: Status post cholecystectomy. The CBD measures 6 mm in diameter. No discrete CBD stone is seen. Pancreas: Normal. No ductal dilation. Spleen: Normal. No splenomegaly. Adrenals: Normal. No mass. Kidneys and ureters: 9 mm simple cortical cyst is seen in the superior pole of the right kidney. No hydronephrosis or solid enhancing masses are seen. Stomach and bowel: There is moderate colonic stool.There is no evidence for intestinal obstruction. Appendix: No evidence of appendicitis. Intraperitoneal space: Unremarkable. No free air. No significant fluid collection. Vasculature: Unremarkable. No abdominal aortic aneurysm. Lymph nodes: Unremarkable. No enlarged lymph nodes. Bladder: Unremarkable as visualized. Reproductive: Unremarkable as visualized. Bones/joints: Unremarkable. No acute fracture. Soft tissues: Unremarkable. IMPRESSION: 1. There is a diffuse decrease in hepatic parenchymal density, consistent with fatty infiltration.There are no focal lesions present. 2. Status post cholecystectomy. 3. There is moderate colonic stool.There is no evidence for intestinal obstruction. 4. No evidence of acute abnormality in the abdomen. COMMENTS: Consistent with the [employer]'s Incidental Findings Committee white paper (J Am Maribel Radiol 2018): Any incidental renal lesion less than 1.0 cm or classified as too small to characterize, or any incidental cystic renal lesion characterized as simple-appearing, is likely benign. No follow-up imaging is recommended for these lesions per consensus recommendations based on imaging criteria. Electronically signed by: Kunal Case On 11/01/2019 13:46:11 PM
[2019-11-01] MEDS ORDERED: ACETAMINOPHEN TAB 650MG DOSE (2X325MG) PO PRN (16:00)
[2019-11-01] MEDS ORDERED: PRED20TA PO (16:09)
[2019-11-01] MEDS ORDERED: ALBUTEROL 90 MCG/ACT 8GM HFA INHALER INH PRN (16:30)
[2019-11-01] MEDS ORDERED: CLOBETASOL PROPIONATE EMOLLIENT 0.05% CR 60 GM TOP PRN (16:30)
[2019-11-01] MEDS ORDERED: POLYVINYL ALCOHOL OPHTH SOLN 15 ML(LIQUITEARS) OU PRN (16:30)
[2019-11-01] MEDS ORDERED: hydrOXYzine 25 MG TAB PO PRN (16:30)
--- NOTE | 2019-11-01 16:34 | HPEPDOC ---
General Date of Admission 11/01/19 Date of Service: Nov 01, 2019 Chief Complaint The patient is a 54-year-old male admitted with a reason for visit of Diff Breathing. Source: Patient Exam Limitations: No limitations Timing/Duration: Day(s) Severity: Mild Associated Symptoms: Other (paresthesia of LE b/l) History of Present Illness Pt is 54 yo M with PMH of COPD, alcoholism, HTN, CHF, GERD, overactive bladder presented to the hospital with bilateral numbness of his LE. Pt stated that his symptoms started a few days ago. He denies recent vaccination, infectious illness or diarrhea. He stated that he developed legs numbness from his feet to lower part of abdomen. He denies any urinary or fecal incontinence, any muscle weakness, but he developed b/l legs paresthesias. In ER imaging studies did not show acute infectious process, fractures. B12 wnl, blood glucose level wnl. Home Medications Scheduled Amlodipine Besylate (Amlodipine Besylate) 5 Mg Tablet, 5 MG PO DAILY, (Reported) Aspirin (Aspirin EC) 81 Mg Tablet.dr, 81 MG PO DAILY, (Reported) Atorvastatin Calcium (Atorvastatin Calcium) 10 Mg Tablet, PO QAM, (Reported) Citalopram Hydrobromide (Citalopram HBr) 40 Mg Tablet, 40 MG PO DAILY, (Reported) Cyanocobalamin (Vitamin B-12) (Vitamin B-12) 1,000 Mcg Tab, 1,000 MCG PO DAILY, (Reported) Folic Acid (Folic Acid) 1 Mg Tab, 1 MG PO DAILY, (Reported) Guaifenesin (Mucinex) 600 Mg Tab.er.12h, 600 MG PO DAILY, (Reported) Levocetirizine Dihydrochloride (Levocetirizine Dihydrochloride) 5 Mg Tab, 5 MG PO DAILY, (Reported) Magnesium Oxide (Magnesium Oxide) 400 Mg Tablet, 400 MG PO DAILY, (Reported) Montelukast Sodium (Singulair) 10 Mg Tab, 10 MG PO DAILY, (Reported) Multivitamins (Thera M Plus Tablet) 1 Tab Tab, 1 TAB PO DAILY, (Reported) Naltrexone HCl (Naltrexone HCl) 50 Mg Tab, 50 MG PO DAILY, (Reported) Nicotine (Nicotine Patch) 14 Mg/24 Hr Patch.td24, 14 MG TD DAILY, (Reported) ALTERNATES ARMS Oxybutynin Chloride (Oxybutynin Chloride ER) 5 Mg Tab, 5 MG PO DAILY, (Reported) Pantoprazole Sodium (Pantoprazole Sodium) 40 Mg Tab, 40 MG PO DAILY, (Reported) Prednisone (Prednisone) 20 Mg Tablet, 60 MG PO DAILY Salmeterol/Fluticasone (Advair 500-50 Diskus) 28 Puff/Inhaler Aerp, 1 PUFF INH BID, (Reported) Thiamine HCl (Vitamin B-1) 50 Mg Tab, 100 MG PO DAILY, (Reported) Triamcinolone Acetonide (Nasacort) 55 Mcg/Act Spr, 1 SPRAY NA DAILY, (Reported) Umeclidinium [place] (Incruse Ellipta) 62.5 Mcg/Inh Inh, 1 PUFF INH DAILY, (Reported) Scheduled PRN Acetaminophen (Tylenol Extra Strength) 500 Mg Tablet, 1,000 MG PO Q6H PRN for PAIN, (Reported) Albuterol Sulfate (Ventolin Hfa) 108 Mcg/Act Aer, 2 PUFFS INH Q4H PRN for SHORTNESS OF BREATH, (Reported) Clobetasol Propionate/Emoll (Clobetasol Emollient 0.05% Crm) 0.05 % Cre, 1 DOSE TOP BID PRN for RASH, (Reported) APPLIES TO AFFECTED AREAS ON HANDS Epinephrine (Epinephrine) 0.3 Mg/0.3 Ml Inj, 0.3 MG INJ ASDIRECTED PRN for ANAPHYLAXIS, (Reported) Hydroxyzine HCl (Hydroxyzine HCl) 25 Mg Tab, 25 MG PO TID PRN for ITCHING, (Reported) Ipratropium/Albuterol Sulfate (Iprat-Albut 0.5-3(2.5) mg/3 ml) 1 Bell Bell, 3 ML INH QID PRN for SHORTNESS OF BREATH, (Reported) Olopatadine HCl (Olopatadine HCl) 0.1% 5ML Drops, 1 DROP OD BID PRN for ITCHING, (Reported) Polyvinyl Alcohol (Artificial Tears) 1.4 % Bell, 1 DROP OU QID PRN for DRY EYES, (Reported) Trazodone HCl (Trazodone HCl) 50 Mg Tablet, 50 MG PO QHS PRN for SLEEP, (Reported) Allergies Coded Allergies: ROMULO Inhibitors (Verified Allergy, Severe, ANGIOEDEMA, 12/20/18) azithromycin (Verified Allergy, Severe, ANAPHYLAXIS, 12/20/18) oseltamivir (Verified Allergy, Severe, ANAPHYLAXIS, 12/20/18) latex (Verified Allergy, Intermediate, HIVES, EDEMA, 12/20/18) SEASONAL ALLERGIES (Verified Allergy, Unknown, 12/20/18) Past Medical History Medical History 1. COPD chronic hypoxic respiratory failure baseline 3 L O2. 2. Alcohol use. 3. Hypertension 4 mood disorder 6 congestive heart failure 7 tobacco abuse 8. Environmental allergies 9. Anxiety 10. Gastroesophageal reflux disease 11. Overactive bladder Surgical History 1. Ligation of varicocele. 2. Cardiac catheterization. Family History I personally reviewed FH and found not pertinent Social History * Smoker: current smoker Alcohol: heavy Drugs: denies A-FIB/CHADSVASC A-FIB History Current/History of A-Fib/PAF?: No Current PO Anticoag Therapy: No Review of Systems Constitutional: Denies: Chills, Fever Eyes: Denies: Pain, Vision change ENT: Denies: Head Aches Skin: Denies: Rash Pulmonary: Reports: Dyspnea; Denies: Cough Cardiovascular: Denies: Chest Pain Gastrointestinal: Denies: Nausea Genitourinary: Denies: Dysuria Hematologic: Denies: Bruising, Bleeding Excessively Endocrine: Denies: Polydipsia Musculoskeletal: Denies: Neck Pain, Back Pain Neurological: Reports: Other Symptoms (LE numbness) Psych: Reports: Mood Normal Physical Examination General Exam: Positive: Alert, Cooperative Eye Exam: Positive: PERRLA ENT Exam: Positive: Atraumatic Neck Exam: Positive: Supple; Negative: JVD Chest Exam: Positive: Wheezing (b/l) Heart Exam: Positive: Rate Normal Telemetry: Positive: No significant arrhythmia Abdomen Exam: Positive: Normal bowel sounds Extremity Exam: Positive: Clubbing; Negative: Cyanosis Skin Exam: Positive: Nl turgor and temperature Neuro Exam: Positive: Strength at 5/5 X4 ext, Cranial Nerves 3-12 NL; Negative: Sensation Intact (diminished sensation of LE b/l) Psych Exam: Positive: Mental status NL Vital Signs Vital Signs Date Time Temp Pulse Resp B/P (MAP) Pulse Ox O2 Delivery O2 Flow Rate FiO2 11/01/19 15:05 62 99 11/01/19 14:19 22 11/01/19 14:16 150/100 (117) 11/01/19 08:35 Room Air 11/01/19 08:32 98.3 4.0 Laboratory Data Labs 24H Laboratory Tests 2 11/01/19 08:36: Immature Granulocyte % (Auto) 0.4, Neutrophils (%) (Auto) 48.5, Lymphocytes (%) (Auto) 37.8, Monocytes (%) (Auto) 10.0H, Eosinophils (%) (Auto) 2.5, Basophils (%) (Auto) 0.8, Neutrophils # (Auto) 3.9, Lymphocytes # (Auto) 3.0, Monocytes # (Auto) 0.8, Eosinophils # (Auto) 0.2, Basophils # (Auto) 0.1, Nucleated Red Blood Cells % (auto) 0.0, Anion Gap 7L, Glomerular Filtration Rate > 60.0, Calcium Level 9.5, Total Bilirubin 0.4, Direct Bilirubin 0.1, Aspartate Amino Transf (AST/SGOT) 35, Alanine Aminotransferase (ALT/SGPT) 51, Alkaline Ph osphatase 64, Total Protein 7.0, Albumin 3.4, Albumin/Globulin Ratio 0.9, Vitamin B12 Level 611 11/01/19 14:47: CBC/BMP Laboratory Tests 11/01/19 08:36 Assessment/Plan Pt is 54 yo M with PMH of COPD, alcoholism, HTN, CHF, GERD, overactive bladder presented to the hospital with bilateral numbness of his LE. Pt stated that his symptoms started a few days ago. He denies recent vaccination, infectious illness or diarrhea. He stated that he developed legs numbness from his feet to lower part of abdomen. He denies any urinary or fecal incontinence, any muscle weakness, but he developed b/l legs paresthesias. In ER imaging studies did not show acute infectious process, fractures. B12 wnl, blood glucose level wnl. Problems (1) Paresthesia of bilateral legs Status: Acute Problem Text: superimposed with numbness Unknown etiology Diff diagnoses includes: alcohol related neuropathy, side effect of meds, hypothyroidism, idiopathic, MGUS, DM Will check folate, TSH, methylmalonate Pt had a long hx of ETOH abuse Glu wnl, Ca wnl. 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
[2019-11-01 17:54] VITALS: BP 146/100
[2019-11-01] MEDS: HEPARIN SOD (PORCINE) 5000UNITS/ML 1ML VIAL/SYRINGE SC SCH (20:06)
[2019-11-01] MEDS: amLODIPine 5 MG TAB PO SCH (20:10)
[2019-11-01 20:44] LABS: FOLATE 19.1 NG/ML (>5.4); MAGNESIUM LEVEL 1.9 MG/DL (1.8-2.4); THYROID STIMULATING HORMONE 1.14 uIU/ML (0.358-3.740)
[2019-11-01] MEDS: ADVAIR HFA 230/21MCG INHALER INH SCH (21:07)
[2019-11-01 22:00] VITALS: BP 122/80
[2019-11-02 06:00] VITALS: BP 129/86
[2019-11-02 06:20] LABS: HEMATOCRIT 37.2 % (42.0-52.0); MEAN CORPUSCULAR HEMOGLOBIN 31.7 pg (27.0-33.0); MEAN CORPUSCULAR HGB CONC 32.3 g/dl (32.0-36.5); MEAN CORPUSCULAR VOLUME 98.2 fl (80.0-96.0); PLATELET COUNT, AUTOMATED 267 10^3/uL (150-450); RED BLOOD COUNT 3.79 10^6/uL (4.30-6.10)
[2019-11-02 06:44] LABS: ALBUMIN 2.8 GM/DL (3.2-5.2); ALT/SGPT 45 U/L (12-78); BILIRUBIN,TOTAL 0.3 MG/DL (0.2-1.0); BLOOD UREA NITROGEN 13 MG/DL (7-18); CARBON DIOXIDE LEVEL 27 MEQ/L (21-32); CHLORIDE LEVEL 110 MEQ/L (98-107); CREATININE FOR GFR 0.55 MG/DL (0.70-1.30); GLOMERULAR FILTRATION RATE > 60.0 (>56); GLUCOSE, FASTING 123 MG/DL (70-100); MAGNESIUM LEVEL 1.9 MG/DL (1.8-2.4); POTASSIUM SERUM 4.2 MEQ/L (3.5-5.1); SODIUM LEVEL 143 MEQ/L (136-145)
[2019-11-02] MEDS: ADVAIR HFA 230/21MCG INHALER INH SCH (07:46)
[2019-11-02] MEDS: HEPARIN SOD (PORCINE) 5000UNITS/ML 1ML VIAL/SYRINGE SC SCH (08:38)
[2019-11-02 08:42] VITALS: BP 124/88
[2019-11-02] MEDS: amLODIPine 5 MG TAB PO SCH (08:42)
[2019-11-02] MEDS ORDERED: oxyBUTYnin *DITROPAN XL* 5 MG TABCR PO SCH (09:00)
[2019-11-02] MEDS ORDERED: amLODIPine 5 MG TAB PO SCH (09:00)
[2019-11-02] MEDS ORDERED: ATORVASTATIN 10 MG TAB PO SCH (09:00)
[2019-11-02] MEDS ORDERED: THIAMINE 100 MG TAB PO SCH (09:00)
[2019-11-02] MEDS ORDERED: FOLIC ACID 1 MG TAB PO SCH (09:00)
[2019-11-02] MEDS ORDERED: PANTOPRAZOLE 40MG TAB (PROTONIX) PO SCH (09:00)
[2019-11-02] MEDS ORDERED: guaiFENesin ER 600 MG TAB PO SCH (09:00)
[2019-11-02] MEDS ORDERED: FLUBLOK(EGG FREE)(QUAD)INFLUENZA VACC 0.5ML SYRINGE 18YRS & OLDER IM ONE (09:00)
[2019-11-02] MEDS ORDERED: ASPIRIN 81 MG ENTERIC TAB PO SCH (09:00)
[2019-11-02] MEDS ORDERED: predniSONE 20 MG TAB PO SCH (09:00)
[2019-11-02] MEDS ORDERED: CYANOCOBALAMIN 500 MCG TAB PO SCH (09:00)
[2019-11-02] MEDS ORDERED: MONTELUKAST 10 MG TAB PO SCH (09:00)
[2019-11-02] MEDS: IPRATROPIUM 0.5MG/ALBUTEROL 2.5MG INH SOL UD 3ML (DUONEB) INH PRN ×2 (11:05→14:59)
--- NOTE | 2019-11-02 12:16 | REPVR ---
PROCEDURE INFORMATION: Exam: CT Lumbar Spine Without Contrast Exam date and time: 11/02/2019 11:59 AM Age: 54 years old Clinical indication: Numbness; Additional info: Legs numbness TECHNIQUE: Imaging protocol: Computed tomography images of the lumbar spine without contrast. Radiation optimization: All CT scans at this facility use at least one of these dose optimization techniques: automated exposure control; mA and/or kV adjustment per patient size (includes targeted exams where dose is matched to clinical indication); or iterative reconstruction. COMPARISON: MRI-Spine, L.S. without con 10/30/2019 2:22 AM FINDINGS: Vertebrae: Straightening of the normal lumbar lordosis may be related to patient position or due to muscle spasm. L1-L2: No significant disc protrusion. No severe spinal canal stenosis. No significant neural foraminal narrowing. L2-L3: There is a small bulge which flattens the sac. No spinal canal stenosis. No neural foraminal narrowing. L3-L4: There is a small bulge which flattens the sac. There are facet joint degenerative changes with mild central stenosis. No significant neural foraminal narrowing. L4-L5: There is a small bulge which flattens the sac. No severe spinal canal stenosis. No significant neural foraminal narrowing. L5-S1: No significant disc protrusion. No severe spinal canal stenosis. No significant neural foraminal narrowing. The gallbladder is surgically absent. There is athrosclerotic disease involving the abdominal aorta and pelvis vessels without an aneurysm. Soft tissues: Unremarkable. IMPRESSION: 1. Straightening of the normal lumbar lordosis may be related to patient position or due to muscle spasm. 2. There are degenerative changes with mild central stenosis at L3-L4. Electronically signed by: Quique Baer On 11/02/2019 12:15:55 PM
[2019-11-02 14:00] VITALS: BP 125/90
--- NOTE | 2019-11-02 14:09 | DS.PDOC ---
Discharge Summary General Date of Admission Nov 01, 2019 at 08:21 Date of Discharge 11/02/19 Discharge Summary PROCEDURES PERFORMED DURING STAY: [None]. ADMITTING DIAGNOSES: Paresthesia of bilateral legs Tobacco dependency COPD (chronic obstructive pulmonary disease) Congestive heart failure (CHF) Alcohol dependence DISCHARGE DIAGNOSES: Paresthesia of bilateral legs Tobacco dependency COPD (chronic obstructive pulmonary disease) Congestive heart failure (CHF) Alcohol dependence COMPLICATIONS/CHIEF COMPLAINT: Stefano Leg Paresthesia. HISTORY OF PRESENT ILLNESS: Pt is 54 yo M with PMH of COPD, alcoholism, HTN, CHF, GERD, overactive bladder presented to the hospital with bilateral numbness of his LE. Pt stated that his symptoms started a few days ago. He denies recent vaccination, infectious illness or diarrhea. He stated that he developed legs numbness from his feet to lower part of abdomen. He denies any urinary or fecal incontinence, any muscle weakness, but he developed b/l legs paresthesias. In ER imaging studies did not show acute infectious process, fractures. B12 wnl, blood glucose level wnl. HOSPITAL COURSE: During hospital stay the following issues addressed (1) Paresthesia of bilateral legs superimposed with numbness Unknown etiology Diff diagnoses includes: alcohol related neuropathy, side effect of meds, hypothyroidism, idiopathic, MGUS, DM folate, TSH, methylmalonate wnl Pt had a long hx of ETOH abuse Glu wnl, Ca wnl. 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 ALLERGIES: Please see below. PHYSICAL EXAMINATION ON DISCHARGE: Physical Examination General Exam: Positive: Alert, Cooperative Eye Exam: Positive: PERRLA ENT Exam: Positive: Atraumatic Neck Exam: Positive: Supple; Negative: JVD Chest Exam: Positive: Wheezing (b/l) Heart Exam: Positive: Rate Normal Telemetry: Positive: No significant arrhythmia Abdomen Exam: Positive: Normal bowel sounds Extremity Exam: Positive: Clubbing; Negative: Cyanosis Skin Exam: Positive: Nl turgor and temperature Neuro Exam: Positive: Strength at 5/5 X4 ext, Cranial Nerves 3-12 NL; Negative: Sensation Intact (diminished sensation of LE b/l) Psych Exam: Positive: Mental status NL LABORATORY DATA: Please see below. IMAGING: PROCEDURE INFORMATION: Exam: CT Lumbar Spine Without Contrast Exam date and time: 11/02/2019 11:59 AM Age: 54 years old Clinical indication: Numbness; Additional info: Legs numbness TECHNIQUE: Imaging protocol: Computed tomography images of the lumbar spine without contrast. Radiation optimization: All CT scans at this facility use at least one of these dose optimization techniques: automated exposure control; mA and/or kV adjustment per patient size (includes targeted exams where dose is matched to clinical indication); or iterative reconstruction. COMPARISON: MRI-Spine, L.S. without con 10/30/2019 2:22 AM FINDINGS: Vertebrae: Straightening of the normal lumbar lordosis may be related to patient position or due to muscle spasm. L1-L2: No significant disc protrusion. No severe spinal canal stenosis. No significant neural foraminal narrowing. L2-L3: There is a small bulge which flattens the sac. No spinal canal stenosis. No neural foraminal narrowing. L3-L4: There is a small bulge which flattens the sac. There are facet joint degenerative changes with mild central stenosis. No significant neural foraminal narrowing. L4-L5: There is a small bulge which flattens the sac. No severe spinal canal stenosis. No significant neural foraminal narrowing. L5-S1: No significant disc protrusion. No severe spinal canal stenosis. No significant neural foraminal narrowing. The gallbladder is surgically absent. There is athrosclerotic disease involving the abdominal aorta and pelvis vessels without an aneurysm. Soft tissues: Unremarkable. IMPRESSION: 1. Straightening of the normal lumbar lordosis may be related to patient position or due to muscle spasm. 2. There are degenerative changes with mild central stenosis at L3-L4. Electronically signed by: Kym Baer On 11/02/2019 12:15:55 PM DD: KYM BAER MD 11/02/19 1159 PROGNOSIS: ACTIVITY: [As tolerated]. DIET: cardiac DISCHARGE PLAN: f/up with neurologist DISPOSITION: home DISCHARGE CONDITION: [Stable]. TIME SPENT ON DISCHARGE: Greater than 20 minutes. Vital Signs/I&Os Vital Signs Date Time Temp Pulse Resp B/P (MAP) Pulse Ox O2 Delivery O2 Flow Rate FiO2 11/02/19 09:00 4.0 11/02/19 08:42 92 124/88 11/02/19 06:00 99.0 18 96 Room Air I&O- Last 24 Hours up to 6 AM 11/02/19 06:00 Intake Total 870 ml Output Total 650 ml Balance 220 ml Laboratory Data Labs 24H Laboratory Tests 2 11/01/19 14:47: 11/01/19 17:22: Magnesium Level 1.9, Folate 19.1, Thyroid Stimulating Hormone (TSH) 1.140 11/01/19 18:40: Urine Color YELLOW, Urine Appearance CLEAR, Urine pH 6.0, Urine Specific [place] >1.060H, Urine Protein NEGATIVE, Urine Glucose (UA) NEGATIVE, Urine Ketones NEGATIVE, Urine Blood NEGATIVE, Urine Nitrite NEGATIVE, Urine Bilirubin NEGATIVE, Urine Urobilinogen 0.2, Urine Leukocyte Esterase NEGATIVE, Urine WBC (Auto) 1, Urine RBC (Auto) 0, Urine Hyaline Casts (Auto) 0, Urine Bacteria (Auto) NEGATIVE, Urine Squamous Epithelial Cells 0, Urine Sperm (Auto) 11/02/19 05:39: Magnesium Level 1.9, Nucleated Red Blood Cells % (auto) 0.0, Anion Gap 6L, Glomerular Filtration Rate > 60.0, Calcium Level 9.0, Total Bilirubin 0.3, Aspartate Amino Transf (AST/SGOT) 24, Alanine Aminotransferase (ALT/SGPT) 45, Alkaline Phosphatase 63, Total Protein 6.0L, Albumin 2.8L, Albumin/Globulin Ratio 0.9 CBC/BMP Laboratory Tests 11/02/19 05:39 Discharge Medications Scheduled Amlodipine Besylate (Amlodipine Besylate) 5 Mg Tablet, 5 MG PO DAILY, (Reported) Aspirin (Aspirin EC) 81 Mg Tablet.dr, 81 MG PO DAILY, (Reported) Atorvastatin Calcium (Atorvastatin Calcium) 10 Mg Tablet, 10 MG PO QAM, (Reported) Citalopram Hydrobromide (Citalopram HBr) 40 Mg Tablet, 40 MG PO DAILY, (Reported) Cyanocobalamin (Vitamin B-12) (Vitamin B-12) 1,000 Mcg Tab, 1,000 MCG PO DAILY, (Reported) Folic Acid (Folic Acid) 1 Mg Tab, 1 MG PO DAILY, (Reported) Guaifenesin (Mucinex) 600 Mg Tab.er.12h, 600 MG PO DAILY, (Reported) Levocetirizine Dihydrochloride (Levocetirizine Dihydrochloride) 5 Mg Tab, 5 MG PO DAILY, (Reported) Magnesium Oxide (Magnesium Oxide) 400 Mg Tablet, 400 MG PO DAILY, (Reported) Montelukast Sodium (Singulair) 10 Mg Tab, 10 MG PO DAILY, (Reported) Multivitamins (Thera M Plus Tablet) 1 Tab Tab, 1 TAB PO DAILY, (Reported) Oxybutynin Chloride (Oxybutynin Chloride ER) 5 Mg Tab, 5 MG PO DAILY, (Reported) Pantoprazole Sodium (Pantoprazole Sodium) 40 Mg Tab, 40 MG PO DAILY, (Reported) Prednisone (Prednisone) 20 Mg Tablet, 60 MG PO DAILY, (Reported) Salmeterol/Fluticasone (Advair 500-50 Diskus) 28 Puff/Inhaler Aerp, 1 PUFF INH BID, (Reported) Thiamine HCl (Vitamin B-1) 50 Mg Tab, 100 MG PO DAILY, (Reported) Umeclidinium [place] (Incruse Ellipta) 62.5 Mcg/Inh Inh, 1 PUFF INH DAILY, (Reported) Scheduled PRN Acetaminophen (Tylenol Extra Strength) 500 Mg Tablet, 1,000 MG PO Q6H PRN for PAIN, (Reported) Albuterol Sulfate (Ventolin Hfa) 108 Mcg/Act Aer, 2 PUFFS INH Q4H PRN for SHORTNESS OF BREATH, (Reported) Clobetasol Propionate/Emoll (Clobetasol Emollient 0.05% Crm) 0.05 % Cre, 1 DOSE TOP BID PRN for RASH, (Reported) APPLIES TO AFFECTED AREAS ON HANDS Epinephrine (Epinephrine) 0.3 Mg/0.3 Ml Inj, 0.3 MG INJ ASDIRECTED PRN for ANAPHYLAXIS, (Reported) Hydroxyzine HCl (Hydroxyzine HCl) 25 Mg Tab, 25 MG PO TID PRN for ITCHING, (Reported) Ipratropium/Albuterol Sulfate (Iprat-Albut 0.5-3(2.5) mg/3 ml) 1 Bell Bell, 1 VIAL INH QID PRN for SHORTNESS OF BREATH, (Reported) Olopatadine HCl (Olopatadine HCl) 0.1% 5ML Drops, 1 DROP OD BID PRN for ITCHING, (Reported) Polyvinyl Alcohol (Artificial Tears) 1.4 % Bell, 1 DROP OU QID PRN for DRY EYES, (Reported) Trazodone HCl (Trazodone HCl) 50 Mg Tablet, 50 MG PO QHS PRN for SLEEP, (Reported) Allergies Coded Allergies: ROMULO Inhibitors (Verified Allergy, Severe, ANGIOEDEMA, 12/20/18) azithromycin (Verified Allergy, Severe, ANAPHYLAXIS, 12/20/18) oseltamivir (Verified Allergy, Severe, ANAPHYLAXIS, 12/20/18) latex (Verified Allergy, Intermediate, HIVES, EDEMA, 12/20/18) SEASONAL ALLERGIES (Verified Allergy, Unknown, 12/20/18) ELVIRA WHITLOCK DO Nov 02, 2019 14:09
[2019-11-08 13:08] LABS: Methylmalonic Acid 157 nmol/L (0-378)
--- NOTE | 2019-11-13 17:06 | ECGEPIP ---
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
== END 2019-11-02 17:17 | disposition home or self-care (01) ==
LOC: M ED 08:20 → M ED INP 08:21 → ENRESERV 16:17 → M MSPAV 17:49
PROVIDERS: ADMIT Internal Medicine; ATTEND Internal Medicine
DX: R20.2 Paresthesia of skin (principal); F17.218 Nicotine dependence, cigarettes, with other nicotine-induced disorders; J44.9 Chronic obstructive pulmonary disease, unspecified; I50.9 Heart failure, unspecified; F10.20 Alcohol dependence, uncomplicated; I11.0 Hypertensive heart disease with heart failure; K21.9 Gastro-esophageal reflux disease without esophagitis; N32.81 Overactive bladder; F39 Unspecified mood [affective] disorder; F41.9 Anxiety disorder, unspecified; Z79.82 Long term (current) use of aspirin; Z79.899 Other long term (current) drug therapy; Z79.51 Long term (current) use of inhaled steroids; Z79.52 Long term (current) use of systemic steroids; Z88.1 Allergy status to other antibiotic agents; Z88.8 Allergy status to other drugs, medicaments and biological substances; Z91.040 Latex allergy status
CPT/HCPCS: 36415; 36600; 70450; 71045; 71275; 72131; 74177; 80048; 80053; 80076; 81001; 82607; 82746; 82803; 83735; 83921; 84425; 84443; 85025; 85027; 90471; 90682; 93005; 93041; 94640; 96372; 99285; J1644; Q9967

== ENCOUNTER 2019-11-07 22:43 | Emergency (ER) | payer OTHER ==
[~2019-11-07] VITALS: Ht 180.3 cm; Wt 70.5 kg
[2019-11-07 22:58] VITALS: BP 140/80
[2019-11-08] MEDS ORDERED: LORazepam 2 MG/ML VIAL IV STA (00:01)
== END 2019-11-08 02:44 | disposition home or self-care (01) ==
LOC: M ED 22:43
DX: R20.2 Paresthesia of skin (principal); F41.1 Generalized anxiety disorder; R06.02 Shortness of breath; J44.9 Chronic obstructive pulmonary disease, unspecified; I25.10 Atherosclerotic heart disease of native coronary artery without angina pectoris; F17.210 Nicotine dependence, cigarettes, uncomplicated; Z79.899 Other long term (current) drug therapy; Z79.51 Long term (current) use of inhaled steroids; Z79.82 Long term (current) use of aspirin; Z88.1 Allergy status to other antibiotic agents; Z88.8 Allergy status to other drugs, medicaments and biological substances; Z91.040 Latex allergy status; J30.1 Allergic rhinitis due to pollen
CPT/HCPCS: 96374; 99284; J2060

== ENCOUNTER 2019-11-26 16:13 | Emergency (ER) | payer OTHER ==
[2019-11-26 17:10] LABS: BASO % 0.5 % (0.0-1.0); EOS # 0.1 10^3/uL (0.0-0.5); EOS % 1.2 % (0.0-3.0); HEMOGLOBIN 13.4 g/dl (13.5-17.5); LYMPH # 1.6 10^3/uL (1.5-5.0); LYMPH % 27.7 % (24.0-44.0); MEAN CORPUSCULAR HEMOGLOBIN 31.2 pg (27.0-33.0); MEAN CORPUSCULAR HGB CONC 32.7 g/dl (32.0-36.5); MEAN CORPUSCULAR VOLUME 95.3 fl (80.0-96.0); MONO # 0.5 10^3/uL (0.0-0.8); NEUTROPHILS # 3.5 10^3/uL (1.5-8.5); NEUTROPHILS % 61.3 % (36.0-66.0); PLATELET COUNT, AUTOMATED 234 10^3/uL (150-450); WHITE BLOOD COUNT 5.8 10^3/uL (4.0-10.0)
--- NOTE | 2019-11-26 17:16 | ECGEPIP ---
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
[2019-11-26 17:36] LABS: ALBUMIN 3.5 GM/DL (3.2-5.2); BILIRUBIN,DIRECT 0.3 MG/DL (0.0-0.2); BILIRUBIN,TOTAL 1.1 MG/DL (0.2-1.0); TOTAL PROTEIN 6.9 GM/DL (6.4-8.2)
[2019-11-26] MEDS ORDERED: ISOVUE-370 76% 100ML VIAL As Ordered ONE (17:50)
[2019-11-26] MEDS ORDERED: IPRATROPIUM 0.5MG/ALBUTEROL 2.5MG INH SOL UD 3ML (DUONEB) NEB ONE (18:00)
[2019-11-26 18:06] LABS: MAGNESIUM LEVEL 1.6 MG/DL (1.8-2.4)
[2019-11-26] MEDS ORDERED: MAG SULF 1GM/100ML (MAG RUN) 1 GM in IV 1 EA IV ONE (18:30)
--- NOTE | 2019-11-26 18:38 | REPVR ---
PROCEDURE INFORMATION: Exam: CT Abdomen And Pelvis With Contrast Exam date and time: 11/26/2019 6:09 PM Age: 54 years old Clinical indication: Abdominal pain; Additional info: Jael mccain TECHNIQUE: Imaging protocol: Computed tomography of the abdomen and pelvis with intravenous contrast. Radiation optimization: All CT scans at this facility use at least one of these dose optimization techniques: automated exposure control; mA and/or kV adjustment per patient size (includes targeted exams where dose is matched to clinical indication); or iterative reconstruction. Contrast material: ISOVUE 370; Contrast volume: 100 ml; Contrast route: INTRAVENOUS (IV); COMPARISON: CT ABD/PEL W/IV CONTRAST ONLY 11/01/2019 12:05 PM FINDINGS: Liver: There is a diffuse decrease in hepatic parenchymal density, consistent with steatosis. Gallbladder and bile ducts: There has been a cholecystectomy. Pancreas: Normal. No ductal dilation. Spleen: Normal. No splenomegaly. Adrenals: Normal. No mass. Kidneys and ureters: 9 mm simple cyst upper pole right kidney. No follow-up suggested. Stomach and bowel: Unremarkable. No obstruction. No mucosal thickening. Appendix: No evidence of appendicitis. Intraperitoneal space: Unremarkable. No free air. No significant fluid collection. Vasculature: The aortoiliac vessels demonstrate mild atherosclerotic calcification. Lymph nodes: Unremarkable. No enlarged lymph nodes. Urinary bladder: Unremarkable as visualized. Reproductive: Unremarkable as visualized. Bones/joints: Moderate central spinal stenosis L3-L4 and L4-L5. Soft tissues: Unremarkable. IMPRESSION: 1. There is a diffuse decrease in hepatic parenchymal density, consistent with steatosis. 2. There has been a cholecystectomy. 3. No acute findings. COMMENTS: Consistent with the [place] [employer]'s Incidental Findings Committee white paper (J Am Maribel Radiol 2018): Any incidental renal lesion less than 1.0 cm or classified as too small to characterize, or any incidental cystic renal lesion characterized as simple-appearing, is likely benign. No follow-up imaging is recommended for these lesions per consensus recommendations based on imaging criteria. Electronically signed by: Andrew Allan On 11/26/2019 18:37:32 PM
[2019-11-26 21:15] VITALS: BP 149/82
== END 2019-11-26 20:40 | disposition home or self-care (01) ==
LOC: EDBD 16:13 → M ED 16:13
DX: R20.2 Paresthesia of skin (principal); R10.9 Unspecified abdominal pain; K76.89 Other specified diseases of liver; N28.1 Cyst of kidney, acquired; I11.0 Hypertensive heart disease with heart failure; I25.10 Atherosclerotic heart disease of native coronary artery without angina pectoris; J44.9 Chronic obstructive pulmonary disease, unspecified; K21.9 Gastro-esophageal reflux disease without esophagitis; F17.200 Nicotine dependence, unspecified, uncomplicated; Z88.1 Allergy status to other antibiotic agents; Z88.8 Allergy status to other drugs, medicaments and biological substances; Z91.040 Latex allergy status; Z79.899 Other long term (current) drug therapy; Z79.51 Long term (current) use of inhaled steroids
CPT/HCPCS: 74177; 80047; 80076; 83690; 83735; 85025; 93005; 93041; 94640; 96365; 99285; J3475; Q9967

== ENCOUNTER 2019-11-28 17:59 | Emergency (ER) | payer OTHER ==
[~2019-11-28] VITALS: Ht 180.3 cm; Wt 70.5 kg
--- NOTE | 2019-11-28 18:27 | REPVR ---
PROCEDURE INFORMATION: Exam: XR Chest, 1 View Exam date and time: 11/28/2019 6:09 PM Age: 54 years old Clinical indication: Cough; Additional info: Dyspnea/cough TECHNIQUE: Imaging protocol: XR of the chest Views: 1 view. COMPARISON: CR PORTABLE CHEST X-RAY 11/01/2019 8:49 AM FINDINGS: Lungs: Unremarkable. No consolidation. Pleural space: Unremarkable. No pleural effusion. No pneumothorax. Heart/Mediastinum: Unremarkable. No cardiomegaly. Bones/joints: Unremarkable. IMPRESSION: No acute findings. Electronically signed by: Andrew Allan On 11/28/2019 18:26:33 PM
[2019-11-28 18:58] LABS: BASO % 0.6 % (0.0-1.0); EOS # 0.1 10^3/uL (0.0-0.5); EOS % 1.5 % (0.0-3.0); HEMATOCRIT 41.4 % (42.0-52.0); HEMOGLOBIN 13.5 g/dl (13.5-17.5); LYMPH # 1.9 10^3/uL (1.5-5.0); LYMPH % 29.8 % (24.0-44.0); MEAN CORPUSCULAR HEMOGLOBIN 31.2 pg (27.0-33.0); MEAN CORPUSCULAR HGB CONC 32.6 g/dl (32.0-36.5); MEAN CORPUSCULAR VOLUME 95.6 fl (80.0-96.0); MONO # 0.5 10^3/uL (0.0-0.8); NEUTROPHILS # 3.9 10^3/uL (1.5-8.5); NEUTROPHILS % 59.9 % (36.0-66.0); PLATELET COUNT, AUTOMATED 252 10^3/uL (150-450); RED BLOOD COUNT 4.33 10^6/uL (4.30-6.10); WHITE BLOOD COUNT 6.5 10^3/uL (4.0-10.0)
[2019-11-28] MEDS ORDERED: ALBUTEROL SULFATE 2.5 MG/0.5 ML INH NEB SOLN NEB ONE (19:00)
[2019-11-28] MEDS ORDERED: IPRATROPIUM 0.5MG/ALBUTEROL 2.5MG INH SOL UD 3ML (DUONEB) NEB ONE (19:00)
[2019-11-28] MEDS ORDERED: methylPREDNISolone 125MG 2ML VIAL IV ONE (19:15)
[2019-11-28 19:46] LABS: ALBUMIN 3.5 GM/DL (3.2-5.2); ALT/SGPT 24 U/L (12-78); BILIRUBIN,DIRECT 0.2 MG/DL (0.0-0.2); BILIRUBIN,TOTAL 0.3 MG/DL (0.2-1.0); BLOOD UREA NITROGEN 6 MG/DL (7-18); CALCIUM LEVEL 9.6 MG/DL (8.5-10.1); CARBON DIOXIDE LEVEL 30 MEQ/L (21-32); CHLORIDE LEVEL 103 MEQ/L (98-107); CK-MB VALUE MASS < 1.0 NG/ML (<3.6); CPK CREATINE PHOSPHOKINASE 53 U/L (39-308); CREATININE FOR GFR 0.58 MG/DL (0.70-1.30); GLOMERULAR FILTRATION RATE > 60.0 (>56); GLUCOSE, FASTING 97 MG/DL (70-100); MAGNESIUM LEVEL 1.9 MG/DL (1.8-2.4); MB/CK RELATIVE INDEX 1.89 (< OR =4); NT-PRO BNP 153 PG/ML (<125); POTASSIUM SERUM 4.7 MEQ/L (3.5-5.1); SODIUM LEVEL 139 MEQ/L (136-145); TOTAL PROTEIN 7.2 GM/DL (6.4-8.2); TROPONIN I < 0.02 NG/ML (< 0.10)
[2019-11-28 20:01] VITALS: BP 137/85
[2019-11-28] MEDS ORDERED: PRED10TA2 PO (20:05)
--- NOTE | 2019-11-29 09:16 | ECGEPIP ---
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
== END 2019-11-28 20:25 | disposition home or self-care (01) ==
LOC: M ED 17:59
DX: J44.1 Chronic obstructive pulmonary disease with (acute) exacerbation (principal); J45.909 Unspecified asthma, uncomplicated; K21.9 Gastro-esophageal reflux disease without esophagitis; F10.10 Alcohol abuse, uncomplicated; F17.210 Nicotine dependence, cigarettes, uncomplicated; Z99.81 Dependence on supplemental oxygen; Z98.61 Coronary angioplasty status; Z88.8 Allergy status to other drugs, medicaments and biological substances; Z88.1 Allergy status to other antibiotic agents; Z79.899 Other long term (current) drug therapy; Z79.52 Long term (current) use of systemic steroids; Z79.82 Long term (current) use of aspirin
CPT/HCPCS: 71045; 80048; 80076; 82550; 82553; 83735; 83880; 84443; 85025; 93005; 93041; 94640; 94760; 96374; 99285; J2930

== ENCOUNTER 2019-12-01 21:58 | Emergency (ER) | payer OTHER ==
[~2019-12-01] VITALS: Ht 180.3 cm; Wt 69.1 kg
[2019-12-01] MEDS ORDERED: NS 1,000 ML IV SCH (22:16)
--- NOTE | 2019-12-01 22:47 | REPVR ---
PROCEDURE INFORMATION: Exam: XR Chest, 1 View Exam date and time: 12/01/2019 10:42 PM Age: 54 years old Clinical indication: Cough and dyspnea; Additional info: Dyspnea/cough TECHNIQUE: Imaging protocol: XR of the chest Views: 1 view. COMPARISON: CR PORTABLE CHEST X-RAY 11/28/2019 6:14 PM FINDINGS: Lungs: Unremarkable. No consolidation. Pleural space: Unremarkable. No pleural effusion. No pneumothorax. Heart/Mediastinum: Unremarkable. No cardiomegaly. Bones/joints: Unremarkable. IMPRESSION: No acute findings. Electronically signed by: Andrew Allan On 12/01/2019 22:47:15 PM
[2019-12-01 23:12] LABS: BASO % 0.3 % (0.0-1.0); EOS # 0.1 10^3/uL (0.0-0.5); EOS % 0.8 % (0.0-3.0); HEMATOCRIT 40.6 % (42.0-52.0); HEMOGLOBIN 13.3 g/dl (13.5-17.5); LYMPH # 1.9 10^3/uL (1.5-5.0); LYMPH % 25.9 % (24.0-44.0); MEAN CORPUSCULAR HEMOGLOBIN 31.3 pg (27.0-33.0); MEAN CORPUSCULAR HGB CONC 32.8 g/dl (32.0-36.5); MEAN CORPUSCULAR VOLUME 95.5 fl (80.0-96.0); MONO # 0.3 10^3/uL (0.0-0.8); MONO % 3.8 % (0.0-5.0); NEUTROPHILS # 5.1 10^3/uL (1.5-8.5); NEUTROPHILS % 68.9 % (36.0-66.0); PLATELET COUNT, AUTOMATED 261 10^3/uL (150-450); RED BLOOD COUNT 4.25 10^6/uL (4.30-6.10); WHITE BLOOD COUNT 7.5 10^3/uL (4.0-10.0)
[2019-12-01] MEDS ORDERED: LORazepam 2 MG/ML VIAL IV STA (23:22)
[2019-12-01 23:38] LABS: ALBUMIN 3.4 GM/DL (3.2-5.2); ALT/SGPT 28 U/L (12-78); BILIRUBIN,DIRECT < 0.1 MG/DL (0.0-0.2); BILIRUBIN,TOTAL 0.3 MG/DL (0.2-1.0); BLOOD UREA NITROGEN 7 MG/DL (7-18); CALCIUM LEVEL 8.8 MG/DL (8.5-10.1); CARBON DIOXIDE LEVEL 29 MEQ/L (21-32); CHLORIDE LEVEL 105 MEQ/L (98-107); CK-MB VALUE MASS < 1.0 NG/ML (<3.6); CPK CREATINE PHOSPHOKINASE 39 U/L (39-308); CREATININE FOR GFR 0.62 MG/DL (0.70-1.30); GLOMERULAR FILTRATION RATE > 60.0 (>56); GLUCOSE, FASTING 107 MG/DL (70-100); MB/CK RELATIVE INDEX 2.56 (< OR =4); POTASSIUM SERUM 3.8 MEQ/L (3.5-5.1); SODIUM LEVEL 141 MEQ/L (136-145); TOTAL PROTEIN 6.7 GM/DL (6.4-8.2); TROPONIN I < 0.02 NG/ML (< 0.10)
[2019-12-01] MEDS: IPRATROPIUM 0.5MG/ALBUTEROL 2.5MG INH SOL UD 3ML (DUONEB) NEB PRN ×2 (23:40→23:46)
[2019-12-02 00:15] VITALS: BP 126/81
--- NOTE | 2019-12-02 18:52 | ECGEPIP ---
[facility] - ED Test Date: 2019-12-01 Pat Name: GORDON SERNA Department: Room: - Gender: Male Miller Kiln Dried Salt: daniel : 1965 Requested By: GLENN YEE Order Number: [id number] Reading MD: Stephan Myers Measurements Intervals [place] Rate: 67 P: 45 [place]: 151 QRS: 38 QRSD: 103 T: 55 QT: 381 QTc: 405 Interpretive Statements SINUS RHYTHM WITH SINUS ARRHYTHMIA POOR R WAVE PROGRESSION SIMILAR TO 11/28/19 Electronically Signed on 12-02-2019 18:51:32 EDT by Stephan Myers
== END 2019-12-02 00:42 | disposition home or self-care (01) ==
LOC: M ED 21:58
DX: J44.1 Chronic obstructive pulmonary disease with (acute) exacerbation (principal); R00.0 Tachycardia, unspecified; I10 Essential (primary) hypertension; K75.9 Inflammatory liver disease, unspecified; Z95.1 Presence of aortocoronary bypass graft; Z95.5 Presence of coronary angioplasty implant and graft; F17.200 Nicotine dependence, unspecified, uncomplicated; Z88.1 Allergy status to other antibiotic agents; Z88.8 Allergy status to other drugs, medicaments and biological substances; Z91.040 Latex allergy status; J30.2 Other seasonal allergic rhinitis; Z79.899 Other long term (current) drug therapy; Z79.51 Long term (current) use of inhaled steroids; Z79.82 Long term (current) use of aspirin
CPT/HCPCS: 71045; 80048; 80076; 82550; 82553; 85025; 93005; 93041; 94640; 94760; 96361; 96374; 99285; J2060

== ENCOUNTER 2019-12-14 18:24 | Emergency (ER) | payer OTHER ==
[~2019-12-14] VITALS: Ht 180.3 cm; Wt 70.5 kg
[2019-12-14] MEDS ORDERED: COMBIVENT RESPIMAT 100-20MCG INHALER 4GM INH ONE (19:00)
[2019-12-14] MEDS ORDERED: methylPREDNISolone 125MG 2ML VIAL IV ONE (19:00)
[2019-12-14 19:58] LABS: BASO % 0.4 % (0.0-1.0); EOS # 0.1 10^3/uL (0.0-0.5); EOS % 1.7 % (0.0-3.0); HEMATOCRIT 44.7 % (42.0-52.0); HEMOGLOBIN 14.1 g/dl (13.5-17.5); LYMPH # 1.9 10^3/uL (1.5-5.0); LYMPH % 23.3 % (24.0-44.0); MEAN CORPUSCULAR HEMOGLOBIN 30.1 pg (27.0-33.0); MEAN CORPUSCULAR HGB CONC 31.5 g/dl (32.0-36.5); MEAN CORPUSCULAR VOLUME 95.3 fl (80.0-96.0); MONO # 0.6 10^3/uL (0.0-0.8); NEUTROPHILS # 5.6 10^3/uL (1.5-8.5); NEUTROPHILS % 67.4 % (36.0-66.0); PLATELET COUNT, AUTOMATED 252 10^3/uL (150-450); RED BLOOD COUNT 4.69 10^6/uL (4.30-6.10); WHITE BLOOD COUNT 8.2 10^3/uL (4.0-10.0)
[2019-12-14] MEDS ORDERED: IPRATROPIUM 0.5MG/ALBUTEROL 2.5MG INH SOL UD 3ML (DUONEB) NEB ONE (21:00)
--- NOTE | 2019-12-14 22:12 | REPVR ---
PROCEDURE INFORMATION: Exam: XR Chest, 2 Views Exam date and time: 12/14/2019 9:56 PM Age: 54 years old Clinical indication: Other: Dyspnea/cough TECHNIQUE: Imaging protocol: XR of the chest Views: 2 views. COMPARISON: CR PORTABLE CHEST X-RAY 12/01/2019 10:35 PM FINDINGS: Lungs: Well inflated lungs consistent with COPD. No segmental or lobar infiltrates. Pleural space: Unremarkable. No pleural effusion. No pneumothorax. Heart/Mediastinum: Unremarkable. No cardiomegaly. Bones/joints: Unremarkable. IMPRESSION: Well inflated lungs consistent with COPD. No segmental or lobar infiltrates. Electronically signed by: Andrew Allan On 12/14/2019 22:12:15 PM
[2019-12-14 22:32] LABS: ALBUMIN 3.5 GM/DL (3.2-5.2); ALT/SGPT 15 U/L (12-78); BILIRUBIN,DIRECT < 0.1 MG/DL (0.0-0.2); BILIRUBIN,TOTAL 0.2 MG/DL (0.2-1.0); BLOOD UREA NITROGEN 7 MG/DL (7-18); CALCIUM LEVEL 9.2 MG/DL (8.5-10.1); CARBON DIOXIDE LEVEL 29 MEQ/L (21-32); CHLORIDE LEVEL 106 MEQ/L (98-107); CK-MB VALUE MASS < 1.0 NG/ML (<3.6); CPK CREATINE PHOSPHOKINASE 55 U/L (39-308); CREATININE FOR GFR 0.73 MG/DL (0.70-1.30); GLOMERULAR FILTRATION RATE > 60.0 (>56); GLUCOSE, FASTING 105 MG/DL (70-100); MB/CK RELATIVE INDEX 1.82 (< OR =4); NT-PRO BNP 51 PG/ML (<125); POTASSIUM SERUM 4.1 MEQ/L (3.5-5.1); SODIUM LEVEL 142 MEQ/L (136-145); THYROID STIMULATING HORMONE 0.433 uIU/ML (0.358-3.740); TOTAL PROTEIN 6.9 GM/DL (6.4-8.2); TROPONIN I < 0.02 NG/ML (< 0.10)
[2019-12-14] MEDS ORDERED: PRED20TA PO (22:55)
[2019-12-14 22:59] VITALS: O2SAT 96
[2019-12-15 00:30] VITALS: BP 115/71
--- NOTE | 2019-12-15 20:45 | ECGEPIP ---
[facility] - ED Test Date: 2019-12-14 Pat Name: GORDON SERNA Department: Room: - Gender: Male Outreach Professional: elvia : 1965 Requested By: DWIGHT Khan Order Number: [id number] Reading MD: Eshter Harvey Measurements Intervals [place] Rate: 79 P: 65 ND: 155 QRS: 14 QRSD: 102 T: 52 QT: 362 QTc: 416 Interpretive Statements SINUS RHYTHM DELAYED R PROGRESSION INCREASED RATE 12/01/19 Electronically Signed on 12-15-2019 20:45:17 EDT by Esther Harvey
== END 2019-12-15 00:30 | disposition home or self-care (01) ==
LOC: M ED 18:24 → EDBD 18:24 → M ED 12-15 00:30
DX: J44.1 Chronic obstructive pulmonary disease with (acute) exacerbation (principal); Z99.81 Dependence on supplemental oxygen; I50.9 Heart failure, unspecified; I11.0 Hypertensive heart disease with heart failure; K21.9 Gastro-esophageal reflux disease without esophagitis; F10.20 Alcohol dependence, uncomplicated; F17.200 Nicotine dependence, unspecified, uncomplicated; Z88.8 Allergy status to other drugs, medicaments and biological substances; Z88.1 Allergy status to other antibiotic agents; Z91.040 Latex allergy status; Z79.51 Long term (current) use of inhaled steroids; Z79.899 Other long term (current) drug therapy; Z79.82 Long term (current) use of aspirin
CPT/HCPCS: 71046; 80048; 80076; 82550; 82553; 83880; 84443; 85025; 87486; 87581; 87633; 87798; 93005; 93041; 94640; 94760; 96374; 99285; J2930

== ENCOUNTER 2019-12-19 11:28 | Observation (INO) | payer OTHER ==
[~2019-12-19] VITALS: Ht 180.3 cm; Wt 63.7 kg
[2019-12-19] MEDS ORDERED: ACETAMINOPHEN TAB 650MG DOSE (2X325MG) PO ONE (12:15)
[2019-12-19] MEDS ORDERED: IPRATROPIUM 0.5MG/ALBUTEROL 2.5MG INH SOL UD 3ML (DUONEB) NEB ONE (12:15)
[2019-12-19 12:42] LABS: BASO % 0.3 % (0.0-1.0); EOS % 0.4 % (0.0-3.0); HEMOGLOBIN 13.3 g/dl (13.5-17.5); LYMPH # 2.1 10^3/uL (1.5-5.0); LYMPH % 21.8 % (24.0-44.0); MEAN CORPUSCULAR HEMOGLOBIN 30.4 pg (27.0-33.0); MEAN CORPUSCULAR HGB CONC 32.4 g/dl (32.0-36.5); MEAN CORPUSCULAR VOLUME 93.8 fl (80.0-96.0); MONO # 0.6 10^3/uL (0.0-0.8); MONO % 6.6 % (0.0-5.0); NEUTROPHILS # 6.8 10^3/uL (1.5-8.5); NEUTROPHILS % 70.6 % (36.0-66.0); PLATELET COUNT, AUTOMATED 220 10^3/uL (150-450); RED BLOOD COUNT 4.37 10^6/uL (4.30-6.10); WHITE BLOOD COUNT 9.7 10^3/uL (4.0-10.0)
[2019-12-19 13:21] LABS: ALBUMIN 3.4 GM/DL (3.2-5.2); ALT/SGPT 17 U/L (12-78); BILIRUBIN,DIRECT < 0.1 MG/DL (0.0-0.2); BILIRUBIN,TOTAL 0.4 MG/DL (0.2-1.0); BLOOD UREA NITROGEN 12 MG/DL (7-18); CARBON DIOXIDE LEVEL 27 MEQ/L (21-32); CHLORIDE LEVEL 106 MEQ/L (98-107); CK-MB VALUE MASS 1.3 NG/ML (<3.6); CPK CREATINE PHOSPHOKINASE 97 U/L (39-308); CREATININE FOR GFR 0.64 MG/DL (0.70-1.30); GLOMERULAR FILTRATION RATE > 60.0 (>56); GLUCOSE, FASTING 84 MG/DL (70-100); LIPASE 72 U/L (73-393); MB/CK RELATIVE INDEX 1.34 (< OR =4); POTASSIUM SERUM 5.4 MEQ/L (3.5-5.1); SODIUM LEVEL 138 MEQ/L (136-145)
[2019-12-19] MEDS ORDERED: ISOVUE-370 76% 100ML VIAL As Ordered ONE (13:53)
--- NOTE | 2019-12-19 16:27 | REPVR ---
PROCEDURE INFORMATION: Exam: CT Abdomen And Pelvis With Contrast Exam date and time: 12/19/2019 2:08 PM Age: 54 years old Clinical indication: Abdominal pain; Generalized; Additional info: Gen abd pain TECHNIQUE: Imaging protocol: Computed tomography of the abdomen and pelvis with intravenous contrast. Radiation optimization: All CT scans at this facility use at least one of these dose optimization techniques: automated exposure control; mA and/or kV adjustment per patient size (includes targeted exams where dose is matched to clinical indication); or iterative reconstruction. Contrast material: ISOVUE 370; Contrast volume: 100 ml; Contrast route: INTRAVENOUS (IV); COMPARISON: CT ABD/PEL W/IV CONTRAST ONLY 11/26/2019 6:00 PM FINDINGS: Lungs: Chest/lung findings are dictated separately. Liver: Diffuse hepatic steatosis. No mass. Gallbladder and bile ducts: There has been a cholecystectomy. Pancreas: Normal. No ductal dilation. Spleen: Normal. No splenomegaly. Adrenals: Normal. No mass. Kidneys and ureters: 7 mm right renal cortical hypodensity. This is too small to definitively characterize, but likely represents a cyst. No hydronephrosis. Stomach and bowel: Unremarkable. No obstruction. No mucosal thickening. Appendix: No evidence of appendicitis. Intraperitoneal space: Unremarkable. No free air. No significant fluid collection. Vasculature: Mild atherosclerotic changes. Lymph nodes: Unremarkable. No enlarged lymph nodes. Urinary bladder: Unremarkable as visualized. Reproductive: Unremarkable as visualized. Bones/joints: Mild degenerative change of the spine. Bilateral femoral head osteonecrosis, with no articular surface collapse. Soft tissues: Unremarkable. IMPRESSION: 1. No acute abnormality is identified within the abdomen/pelvis. 2. Diffuse hepatic steatosis. 3. Bilateral femoral head osteonecrosis. Electronically signed by: Kayleigh Joe On 12/19/2019 16:27:31 PM
--- NOTE | 2019-12-19 16:36 | REPVR ---
PROCEDURE INFORMATION: Exam: CT Angiography Chest With Contrast Exam date and time: 12/19/2019 2:08 PM Age: 54 years old Clinical indication: Shortness of breath; Additional info: SOB TECHNIQUE: Imaging protocol: Computed tomographic angiography of the chest with intravenous contrast. 3D rendering (Not supervised by radiologist): MIP and/or 3D reconstructed images were created by the technologist. Radiation optimization: All CT scans at this facility use at least one of these dose optimization techniques: automated exposure control; mA and/or kV adjustment per patient size (includes targeted exams where dose is matched to clinical indication); or iterative reconstruction. Contrast material: ISOVUE 370; Contrast volume: 100 ml; Contrast route: INTRAVENOUS (IV); COMPARISON: 1. CT ANGIO CHEST 11/01/2019 12:05 PM 2. SR - CT Chest without contrast 08/21/2018 8:01:56 AM FINDINGS: Pulmonary arteries: Normal. No pulmonary emboli. Aorta: Mild fusiform ectasia of the ascending thoracic aorta, measuring up to 4.1 cm by 3.9 cm. This is unchanged. No thoracic aortic dissection. Minimal atherosclerotic change of the thoracic aorta. Lungs: Mild subpleural scarring in the lung apices. Mild bilateral centrilobular emphysematous changes. Mild linear scarring in the left upper lobe. Stable 2 mm noncalcified left upper lobe pulmonary nodule (series 401, image 79). Stable noncalcified 3 mm left upper lobe pulmonary nodule (series 401, image 101). Pleural space: Unremarkable. No pneumothorax. No pleural effusion. Heart: Unremarkable. No cardiomegaly. No pericardial effusion. Lymph nodes: Unremarkable. No enlarged lymph nodes. Bones/joints: Degenerative change of the spine. Soft tissues: Unremarkable. Other findings: Abdomen findings are dictated separately. IMPRESSION: 1. No evidence of pulmonary embolism. 2. Stable mild fusiform ectasia of the ascending thoracic aorta. 3. 2 mm and 3 mm left upper lobe pulmonary nodules. The 2 mm nodule has been stable for over 1 year. The 3 mm nodule is difficult to identify on the chest CT from 2019. For patients at low risk (minimal or absent history of smoking and of other known risk factors), no routine follow-up is indicated. For patients at high risk (history of smoking or of other known risk factors), consider optional CT Chest at 12 months. (Reference: Say) REFERENCES: MacMahon H, et al. Guidelines for Management of Incidental Pulmonary Nodules Detected on CT Images: From the Fleischner Society 2017. Radiology. 2017;284(1):228-243. Electronically signed by: Kayleigh Joe On 12/19/2019 16:36:04 PM
[2019-12-19] MEDS ORDERED: BUSP15TA47 PO (17:37)
[2019-12-19] MEDS ORDERED: ACETAMINOPHEN 500 MG TAB PO PRN (18:15)
[2019-12-19] MEDS ORDERED: IPRATROPIUM 0.5MG/ALBUTEROL 2.5MG INH SOL UD 3ML (DUONEB) NEB PRN (18:15)
[2019-12-19] MEDS ORDERED: LORazepam 2 MG TAB PO PRN (18:15)
[2019-12-19] MEDS ORDERED: traZODone 50 MG TAB PO PRN (18:15)
[2019-12-19] MEDS: THIAMINE 100 MG TAB PO SCH (18:41)
[2019-12-19] MEDS: ADVAIR HFA 230/21MCG INHALER INH SCH (20:15)
[2019-12-19 20:18] LABS: MB/CK RELATIVE INDEX 2.17 (< OR =4); TROPONIN I 0.23 NG/ML (< 0.10)
[2019-12-19 21:25] VITALS: BP 140/74
[2019-12-19 22:00] VITALS: BP 140/74
[2019-12-19] MEDS: busPIRone 5 MG TAB PO SCH (22:10)
[2019-12-19] MEDS: GABAPENTIN 100 MG CAP PO SCH (22:10)
[2019-12-20] VITALS: BP 136/82
[2019-12-20 01:22] LABS: CK-MB VALUE MASS < 1.0 NG/ML (<3.6); CPK CREATINE PHOSPHOKINASE 48 U/L (39-308); MB/CK RELATIVE INDEX 2.08 (< OR =4); TROPONIN I 0.16 NG/ML (< 0.10)
[2019-12-20 04:00] VITALS: BP 122/78
[2019-12-20] MEDS: ADVAIR HFA 230/21MCG INHALER INH SCH (07:23)
[2019-12-20 08:00] VITALS: BP_SYST 144; BP_SYST 148; BP_DIAS 94
[2019-12-20] MEDS ORDERED: TIOTROPIUM INHALER/CAPSULE (SPIRIVA) INH SCH (08:00)
--- NOTE | 2019-12-20 08:23 | ECGEPIP ---
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 Could not rule out prior septal infarction. Right precordial T wave changes from earlier the same day Clinical correlation advised Electronically Signed on 12-20-2019 8:23:16 EDT by Piotr Gauthier
[2019-12-20] MEDS: busPIRone 5 MG TAB PO SCH (08:25)
[2019-12-20] MEDS: GABAPENTIN 100 MG CAP PO SCH (08:25)
[2019-12-20] MEDS: THIAMINE 100 MG TAB PO SCH (08:25)
[2019-12-20 08:26] VITALS: BP 148/94
[2019-12-20 08:34] LABS: BASO % 0.4 % (0.0-1.0); EOS # 0.2 10^3/uL (0.0-0.5); EOS % 2.5 % (0.0-3.0); HEMATOCRIT 35.6 % (42.0-52.0); HEMOGLOBIN 11.6 g/dl (13.5-17.5); LYMPH # 2.3 10^3/uL (1.5-5.0); LYMPH % 30.1 % (24.0-44.0); MEAN CORPUSCULAR HEMOGLOBIN 30.1 pg (27.0-33.0); MEAN CORPUSCULAR HGB CONC 32.6 g/dl (32.0-36.5); MEAN CORPUSCULAR VOLUME 92.2 fl (80.0-96.0); MONO # 0.9 10^3/uL (0.0-0.8); MONO % 11.4 % (0.0-5.0); NEUTROPHILS # 4.1 10^3/uL (1.5-8.5); NEUTROPHILS % 55.3 % (36.0-66.0); PLATELET COUNT, AUTOMATED 197 10^3/uL (150-450); RED BLOOD COUNT 3.86 10^6/uL (4.30-6.10); WHITE BLOOD COUNT 7.5 10^3/uL (4.0-10.0)
[2019-12-20 08:51] LABS: BLOOD UREA NITROGEN 12 MG/DL (7-18); CALCIUM LEVEL 8.6 MG/DL (8.5-10.1); CARBON DIOXIDE LEVEL 29 MEQ/L (21-32); CHLORIDE LEVEL 106 MEQ/L (98-107); CREATININE FOR GFR 0.77 MG/DL (0.70-1.30); GLOMERULAR FILTRATION RATE > 60.0 (>56); GLUCOSE, FASTING 167 MG/DL (70-100); POTASSIUM SERUM 3.8 MEQ/L (3.5-5.1); SODIUM LEVEL 142 MEQ/L (136-145)
[2019-12-20] MEDS ORDERED: MULTIVITAMINS/MINERALS THERAP 1 TAB PO SCH (09:00)
[2019-12-20] MEDS ORDERED: ATORVASTATIN 10 MG TAB PO SCH (09:00)
[2019-12-20] MEDS ORDERED: CYANOCOBALAMIN 500 MCG TAB PO SCH (09:00)
[2019-12-20] MEDS ORDERED: ENOXAPARIN 40MG/0.4ML SYRINGE (J1650 PER 10MG) SC SCH (09:00)
[2019-12-20] MEDS ORDERED: oxyBUTYnin *DITROPAN XL* 5 MG TABCR PO SCH (09:00)
[2019-12-20] MEDS ORDERED: MAGNESIUM OXIDE 400 MG TAB (MAG-OX) PO SCH (09:00)
[2019-12-20] MEDS ORDERED: LORATADINE 5 MG HALF-TAB PO SCH (09:00)
[2019-12-20] MEDS ORDERED: FOLIC ACID 1 MG TAB PO SCH ×2 (09:00)
[2019-12-20] MEDS ORDERED: MONTELUKAST 10 MG TAB PO SCH (09:00)
[2019-12-20] MEDS ORDERED: amLODIPine 5 MG TAB PO SCH (09:00)
[2019-12-20] MEDS ORDERED: PANTOPRAZOLE 40MG TAB (PROTONIX) PO SCH (09:00)
[2019-12-20] MEDS ORDERED: ASPIRIN 81 MG ENTERIC TAB PO SCH (09:00)
[2019-12-20] MEDS ORDERED: GABA-1171 PO (10:15)
[2019-12-20] MEDS ORDERED: SLF 3 ML SYR IV PRN (10:15)
[2019-12-20 12:00] VITALS: BP_SYST 152; BP_SYST 160; BP_DIAS 104
--- NOTE | 2019-12-20 12:53 | HPEPDOC ---
General Date of Admission 12/19/19 Date of Service: Dec 19, 2019 Chief Complaint The patient is a 54-year-old male admitted with a reason for visit of Abd Pain. Source: Patient, RN/MD History of Present Illness 54 year old male with COPD/ emphysema with chronic resp failure with hypoxia on 4 liters of oxygen, alcoholic, H/o Alcoholic cardiomyopathy now with improved EF, presented to the ED with complaints of numbness of both his lower extremities involving the inner thighs, calf, heels to the toes on both sides extending to the genitals and up into the abdominal wall up the xiphisternum. He feels his skin is very thick. He denied any weakness or difficulty in ambulation or any bowel or bladder issues. He also complained of abdominal distension and hardness which was making him very anxious and precipitated acute shortness of breath so he called the EMS. By the time he had reached the ED his breathing had improved. In the ED he was found to have elevated troponins with normal EKG and no chest pain. He had a CT angio of the chest done which was negative for P ulmonary embolism. He also had a CT abdomen and pelvis which did not show any acute abnormalities but did show bilateral osteonecrosis of the head of femur. He denied any hip pain. He also complained of cough with whitish phlegm production. His last drink was on the night of 12/18/19 when he reports he just had 2 vodkas. He had an appointment with Neurology on 12/17/19 which he missed. He was admitted for elevated troponins to rule out ACS. Home Medications Scheduled Amlodipine Besylate (Amlodipine Besylate) 5 Mg Tablet, 5 MG PO DAILY, (Reported) Aspirin (Aspirin EC) 81 Mg Tablet.dr, 81 MG PO DAILY, (Reported) Atorvastatin Calcium (Atorvastatin Calcium) 10 Mg Tablet, 10 MG PO DAILY, (Reported) Buspirone HCl (Buspirone HCl) 15 Mg Tablet, 15 MG PO BID, (Reported) Citalopram Hydrobromide (Citalopram HBr) 40 Mg Tablet, 40 MG PO DAILY, (Reported) Cyanocobalamin (Vitamin B-12) (Vitamin B-12) 1,000 Mcg Tab, 1,000 MCG PO DAILY, (Reported) Folic Acid (Folic Acid) 1 Mg Tab, 1 MG PO DAILY, (Reported) Gabapentin (Gabapentin) 100 Mg Capsule, 100 MG PO BID Levocetirizine Dihydrochloride (Levocetirizine Dihydrochloride) 5 Mg Tab, 5 MG PO DAILY, (Reported) Magnesium Oxide (Magnesium Oxide) 400 Mg Tablet, 400 MG PO DAILY, (Reported) Montelukast Sodium (Singulair) 10 Mg Tab, 10 MG PO DAILY, (Reported) Multivitamins (Thera M Plus Tablet) 1 Tab Tab, 1 TAB PO DAILY, (Reported) Oxybutynin Chloride (Oxybutynin Chloride ER) 5 Mg Tab, 5 MG PO DAILY, (Reported) Pantoprazole Sodium (Pantoprazole Sodium) 40 Mg Tab, 40 MG PO DAILY, (Reported) Salmeterol/Fluticasone (Advair 500-50 Diskus) 28 Puff/Inhaler Aerp, 1 PUFF INH BID, (Reported) Thiamine HCl (Vitamin B-1) 50 Mg Tab, 100 MG PO DAILY, (Reported) Umeclidinium [place] (Incruse Ellipta) 62.5 Mcg/Inh Inh, 1 PUFF INH DAILY, (Reported) Scheduled PRN Acetaminophen (Tylenol Extra Strength) 500 Mg Tablet, 1,000 MG PO Q6H PRN for PAIN, (Reported) Albuterol Sulfate (Ventolin Hfa) 108 Mcg/Act Aer, 2 PUFFS INH Q4H PRN for SHORTNESS OF BREATH, (Reported) Epinephrine (Epinephrine) 0.3 Mg/0.3 Ml Inj, 0.3 MG INJ ASDIRECTED PRN for ANAPHYLAXIS, (Reported) Guaifenesin (Mucinex) 600 Mg Tab.er.12h, 600 MG PO BID PRN for CONGESTION, (Reported) Hydroxyzine HCl (Hydroxyzine HCl) 25 Mg Tab, 25 MG PO TID PRN for ITCHING, (Reported) Ipratropium/Albuterol Sulfate (Iprat-Albut 0.5-3(2.5) mg/3 ml) 1 Bell Bell, 1 VIAL INH QID PRN for SHORTNESS OF BREATH, (Reported) Olopatadine HCl (Olopatadine HCl) 0.1% 5ML Drops, 1 DROP OU BID PRN for ITCHING, (Reported) Polyvinyl Alcohol (Artificial Tears) 1.4 % Bell, 1 DROP OU QID PRN for DRY EYES, (Reported) Trazodone HCl (Trazodone HCl) 50 Mg Tablet, 50 MG PO QHS PRN for SLEEP, (Reported) Allergies Coded Allergies: ROMULO Inhibitors (Verified Allergy, Severe, ANGIOEDEMA, 11/26/19) azithromycin (Verified Allergy, Severe, ANAPHYLAXIS, 11/26/19) latex (Verified Allergy, Severe, HIVES, EDEMA, 12/19/19) oseltamivir (Verified Allergy, Severe, ANAPHYLAXIS, 11/26/19) SEASONAL ALLERGIES (Verified Allergy, Unknown, 11/26/19) Past Medical History Medical History SEVERE COPD (GOLD III) (03/27/19 FEV1 1.8L/RATIO 57%)/ASTHMA OVERLAP CHRONIC RESPIRATORY FAILURE WITH HYPOXIA HYPERTENSION CHRONIC ETOH ABUSE/ALCOHOLIC HEPATITIS. MULTIPLE ADMISSIONS TO REHAB/DETOX H/O SEVERE ALCOHOLIC CARDIOMYOPAHY ( LVEF 15% C GLOBAL HYPO KINESIS) Improved with LVEF 55%, AVS, MILD AR/MR-09/12/17 TTE ALLERGIC RHINITIS/CONJUNCTIVITIS/HO MULTIPLE DRUG ANAPHALAXIS (ACEI, OSELTAMVIR, AZITHROMYCIN, LATEX) NICOTINE USE DISORDER-70 PY HO (2-50Y 2PPD) GERD CHRONIC/MDD/ZELDA IGM DEFICIENCY-05/25/18 IGM 22 CHRONIC THROMBOCYTOPENIA B12 DEFICIENCY CHRONIC PRURITUS OAB CHRONIC DISABILITY 2 COPD/ASTHMA Surgical History VARICOCOELE LIGATION [facility]- CARDIAC CATHETERIZATION- NO ANGIOGRAPHIC CAD/NORMAL LV SYSTOLIC FUNCTION/MILD APICAL HYPOKINESIS SUGGESTIVE OF APICAL BALLOONING 09/12/13 COLONOSCOPY-DR. VASQUEZ 12/01/2014 CARDIAC CATH- [facility] 11/23/2016 R IOL 11/2018 [facility] 01/04/2019 Family History FATHER: 80 YRS, SEPSIS COMPLICATED BY CHF; ALSO KNOWN TO HAVE ALLERGIES, HYPERTENSION MOTHER: HYPERTENSION Social History * Smoker: current smoker Alcohol: heavy Drugs: denies A-FIB/CHADSVASC A-FIB History Current/History of A-Fib/PAF?: No Review of Systems Constitutional: Denies: Chills, Fever, Night Sweats Eyes: Denies: Pain, Vision change ENT: Denies: Head Aches, Ear Pain, Dysphagia Skin: Reports: Itching, Dry Pulmonary: Reports: Dyspnea, Cough Cardiovascular: Denies: Chest Pain, Palpitations, Orthopnea, Paroxysmal Noc. Dyspnea, Lt Headedness Gastrointestinal: Reports: Other Symptoms (abdominal distension and hardness); Denies: Nausea, Vomiting, Abdominal Pain, Diarrhea Genitourinary: Denies: Dysuria, Frequency, Incontinence, Retention Hematologic: Denies: Bruising, Bleeding Excessively Musculoskeletal: Reports: Back Pain; Denies: Neck Pain, Joint Pain, Muscle Pain, Spasms Neurological: Reports: Numbness (of both lower extremity, genitals extending upto the upper abdomen.); Denies: Weakness, Incoordination Psych: Reports: Anxiety Physical Examination General Exam: Positive: Alert, Cooperative, No Acute Distress Eye Exam: Positive: PERRLA, Conjunctiva & lids normal, EOMI; Negative: Sclera icteric ENT Exam: Positive: Atraumatic, Mucous membr. moist/pink, Pharynx Normal Neck Exam: Positive: Supple; Negative: JVD, thyromegaly Chest Exam: Positive: Clear to auscultation, Normal air movement Heart Exam: Positive: Rate Normal, Regular Rhythm, Normal S1, Normal S2; Negative: Murmurs, Rubs Telemetry: Positive: No significant arrhythmia Abdomen Exam: Positive: Normal bowel sounds, Soft; Negative: Tenderness, Hepatospenomegaly Extremity Exam: Positive: Normal pulses; Negative: Clubbing, Cyanosis, Edema Skin Exam: Positive: Nl turgor and temperature, Pruritus; Negative: Breakdown, Lesion Neuro Exam: Positive: Normal Gait, Normal Speech, Strength at 5/5 X4 ext, Normal Tone, Sensation Intact, Reflexes 2+ Vital Signs Vital Signs Date Time Temp Pulse Resp B/P (MAP) Pulse Ox O2 Delivery O2 Flow Rate FiO2 12/19/19 17:00 81 143/82 (102) 100 12/19/19 12:39 Nasal Cannula 5.0 12/19/19 11:35 98.6 20 Laboratory Data Labs 24H Laboratory Tests 2 12/19/19 12:28: Immature Granulocyte % (Auto) 0.3, Neutrophils (%) (Auto) 70.6H, Lymphocytes (%) (Auto) 21.8L, Monocytes (%) (Auto) 6.6H, Eosinophils (%) (Auto) 0.4, Basophils (%) (Auto) 0.3, Neutrophils # (Auto) 6.8, Lymphocytes # (Auto) 2.1, Monocytes # (Auto) 0.6, Eosinophils # (Auto) 0.0, Basophils # (Auto) 0.0, Nucleated Red Blood Cells % (auto) 0.0, Anion Gap 5L, Glomerular Filtration Rate > 60.0, C alcium Level 9.0, Total Bilirubin 0.4, Direct Bilirubin < 0.1, Aspartate Amino Transf (AST/SGOT) 28, Alanine Aminotransferase (ALT/SGPT) 17, Alkaline Phosphatase 69, Total Creatine Kinase 97, Creatine Kinase MB 1.3, Creatine Kinase MB Relative Index 1.34, Troponin I 0.40H, Total Protein 7.0, Albumin 3.4, Albumin/Globulin Ratio 0.9, Lipase 72L CBC/BMP Laboratory Tests 12/19/19 12:28 Assessment/Plan 54 year old male with COPD/ emphysema with chronic resp failure with hypoxia on 4 liters of oxygen, alcoholic, H/o Alcoholic cardiomyopathy now with improved EF, presented to the ED with complaints of numbness of both his lower extremities involving the inner thighs, calf, heels to the toes on both sides extending to the genitals and up into the abdominal wall up the xiphisternum. He feels his skin is very thick. He denied any weakness or difficulty in ambulation or any bowel or bladder issues. He also complained of abdominal distension and hardness which was making him very anxious and precipitated acute shortness of breath so he called the EMS. By the time he had reached the ED his breathing had improved. In the ED he was found to have elevated troponins with normal EKG and no chest pain. He had a CT angio of the chest done which was negative for Pulmonary embolism. He also had a CT abdomen and pelvis which did not show any acute abnormalities but did show bilateral osteonecrosis of the head of femur. He denied any hip pain. He also complained of cough with whitish phlegm production. His last drink was on the night of 12/18/19 when he reports he just had 2 vodkas. He had an appointment with Neurology on 12/17/19 which he missed. He was admitted for elevated troponins to rule out ACS. Elevated troponins EKG sinus rhythm , no chest pain ro discomfort may again have cardiomyopathy from his chronic alcohol abuse will order echo. repeat cardiac enzymes. Numbness of both lower extremities could be alcohol related DTRs 2+, no loss of fine tough or pressure sensation VIt B12 levels normal in Oct 2019 on vit b12 supplementation start on gabapentin appointment with Neurology was set up which unfortunately he missed. Patient advised to reschedule it. COPD/ Asthma with chronic resp failure at baseline cont home meds Hyperlipidemia statin Urge incontinence once oxybutinin Alcohol abuse no withdrawal at present [facility] protocol. hypertension amlodipine. Plan / VTE VTE Prophylaxis Ordered?: Yes SREEKANTH TEAGUE MD Dec 19, 2019 17:29
[2019-12-20] MEDS ORDERED: SLF 3 ML SYR IV SCH (14:00)
--- NOTE | 2019-12-20 20:17 | ECGEPIP ---
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
--- NOTE | 2019-12-21 13:09 | DS.PDOC ---
Discharge Summary General Date of Admission Dec 19, 2019 at 11:29 Date of Discharge 12/20/19 Discharge Summary PROCEDURES PERFORMED DURING STAY: [None]. DISCHARGE DIAGNOSES: Neuropathy of both legs needs work up. Elevated Troponins/ ACS ruled out/ possibly tachycardia and hypoxia at home. Alcohol use disorder SECONDARY DIAGNOSIS: SEVERE COPD (GOLD III) (03/27/19 FEV1 1.8L/RATIO 57%)/ASTHMA OVERLAP CHRONIC RESPIRATORY FAILURE WITH HYPOXIA HYPERTENSION CHRONIC ETOH ABUSE/ALCOHOLIC HEPATITIS. MULTIPLE ADMISSIONS TO REHAB/DETOX H/O SEVERE ALCOHOLIC CARDIOMYOPATHY ( LVEF 15% C GLOBAL HYPOKINESIS) Improved with LVEF 55%, AVS, MILD AR/MR-09/12/17 TTE ALLERGIC RHINITIS/CONJUNCTIVITIS/HO MULTIPLE DRUG ANAPHYLAXIS (ACEI, OSELTAMVIR, AZITHROMYCIN, LATEX) NICOTINE USE DISORDER-70 PY HO (2-50Y 2PPD) GERD CHRONIC/MDD/ZELDA IGM DEFICIENCY-05/25/18 IGM 24 THROMBOCYTOPENIA now resolved B12 DEFICIENCY CHRONIC PRURITUS OVER ACTIVE BLADDER CHRONIC DISABILITY 2 COPD/ASTHMA COMPLICATIONS/CHIEF COMPLAINT: Elevated Troponin. HOSPITAL COURSE: 54 year old male with COPD/ emphysema with chronic resp failure with hypoxia on 4 liters of oxygen, alcoholic, H/o Alcoholic cardiomyopathy now with improved EF, presented to the ED with complaints of numbness of both his lower extremities involving the inner thighs, calf, heels to the toes on both sides extending to the genitals and up into the abdominal wall up the xiphist ernum. He feels his skin is very thick. He denied any weakness or difficulty in ambulation or any bowel or bladder issues. He also complained of abdominal distension and hardness which was making him very anxious and precipitated acute shortness of breath so he called the EMS. By the time he had reached the ED his breathing had improved. In the ED he was found to have elevated troponins with normal EKG and no chest pain. He had a CT angio of the chest done which was negative for Pulmonary embolism. He also had a CT abdomen and pelvis which did not show any acute abnormalities but did show bilateral osteonecrosis of the head of femur. He denied any hip pain. He also complained of cough with whitish phlegm production. His last drink was on the night of 12/18/19 when he reports he just had 2 vodkas. He had an appointment with Neurology on 12/17/19 which he missed. He was admitted for elevated troponins to rule out ACS. Elevated troponins EKG sinus rhythm , no chest pain ro discomfort may again have cardiomyopathy from his chronic alcohol abuse CT angio of chest negative. repeat cardiac enzymes and EKG was negative for any ACS. Numbness of both lower extremities could be alcohol related DTRs 2+, no loss of fine tough or pressure sensation VIt B12 levels normal in Oct 2019 on vit b12 supplementation start on gabapentin appointment with Neurology was set up which unfortunately he missed. Patient advised to reschedule it. COPD/ Asthma with chronic resp failure at baseline cont home meds Hyperlipidemia statin Urge incontinence once oxybutinin Alcohol abuse no withdrawal hypertension amlodipine. DISCHARGE MEDICATIONS: Please see below. ALLERGIES: Please see below. PHYSICAL EXAMINATION ON DISCHARGE: VITAL SIGNS: Please see below. General Exam: Positive: Alert, Cooperative, No Acute Distress Eye Exam: Positive: PERRLA, Conjunctiva & lids normal, EOMI; Negative: Sclera icteric ENT Exam: Positive: Atraumatic, Mucous membr. moist/pink, Pharynx Normal Neck Exam: Positive: Supple; Negative: JVD, thyromegaly Chest Exam: Positive: Clear to auscultation, Normal air movement Heart Exam: Positive: Rate Normal, Regular Rhythm, Normal S1, Normal S2; Negative: Murmurs, Rubs Telemetry: Positive: No significant arrhythmia Abdomen Exam: Positive: Normal bowel sounds, Soft; Negative: Tenderness, Hepatospenomegaly Extremity Exam: Positive: Normal pulses; Negative: Clubbing, Cyanosis, Edema Skin Exam: Positive: Nl turgor and temperature, Pruritus; Negative: Breakdown, Lesion Neuro Exam: Positive: Normal Gait, Normal Speech, Strength at 5/5 X4 ext, Normal Tone, Sensation Intact, Reflexes 2+ LABORATORY DATA: Please see below. ACTIVITY: [As tolerated]. DIET: As tolerated DISPOSITION: Home, Self-Care. DISCHARGE INSTRUCTIONS: Follow up PMD in 1 week ITEMS TO FOLLOWUP ON ON OUTPATIENT: Needs echo DISCHARGE CONDITION: [Stable]. TIME SPENT ON DISCHARGE: 35 minutes. Vital Signs/I&Os Vital Signs Date Time Temp Pulse Resp B/P (MAP) Pulse Ox O2 Delivery O2 Flow Rate FiO2 12/20/19 12:00 98.1 82 18 160/104 (122) 95 Nasal Cannula 4.0 I&O- Last 24 Hours up to 6 AM 12/21/19 06:00 Intake Total 0 ml Balance 0 ml Laboratory Data CBC/BMP Item Value Date Time White Blood Count 7.5 10^3/uL 12/20/19818 Red Blood Count 3.86 10^6/uL L 12/20/19818 Hemoglobin 11.6 g/dl L 12/20/19818 Hematocrit 35.6 % L 12/20/19818 Mean Corpuscular Volume 92.2 fl 12/20/19818 Mean Corpuscular Hemoglobin 30.1 pg 12/20/19818 Mean Corpuscular Hemoglobin Concent 32.6 g/dl 12/20/19818 Red Cell Distribution Width 12.3 % 12/20/19818 Platelet Count 197 10^3/uL 12/20/19818 Immature Granulocyte % (Auto) 0.3 % 12/20/19818 Neutrophils (%) (Auto) 55.3 % 12/20/19818 Lymphocytes (%) (Auto) 30.1 % 12/20/19818 Monocytes (%) (Auto) 11.4 % H 12/20/19818 Eosinophils (%) (Auto) 2.5 % 12/20/19818 Basophils (%) (Auto) 0.4 % 12/20/19818 Neutrophils # (Auto) 4.1 10^3/uL 12/20/19818 Lymphocytes # (Auto) 2.3 10^3/uL 12/20/19818 Monocytes # (Auto) 0.9 10^3/uL H 12/20/19818 Eosinophils # (Auto) 0.2 10^3/uL 12/20/19818 Basophils # (Auto) 0.0 10^3/uL 12/20/19818 Nucleated Red Blood Cells % (auto) 0.0 % 12/20/19818 Sodium Level 142 MEQ/L 12/20/19818 Potassium Level 3.8 MEQ/L # 12/20/19818 Chloride Level 106 MEQ/L 12/20/19818 Carbon Dioxide Level 29 MEQ/L 12/20/19818 Anion Gap 7 MEQ/L L 12/20/19818 Blood Urea Nitrogen 12 MG/DL 12/20/19818 Creatinine 0.77 MG/DL 12/20/19818 Glomerular Filtration Rate > 60.0 12/20/19818 Fasting Glucose 167 MG/DL H 12/20/19818 Calcium Level 8.6 MG/DL 12/20/19818 Total Creatine Kinase 97 U/L 12/19/19 1228 Creatine Kinase MB 1.3 NG/ML 12/19/19 1228 Creatine Kinase MB Relative Index 1.34 12/19/19 1228 Troponin I 0.40 NG/ML H 12/19/19 1228 Total Creatine Kinase 46 U/L 12/19/19 1926 Creatine Kinase MB 1.0 NG/ML 12/19/19 1926 Creatine Kinase MB Relative Index 2.17 12/19/19 1926 Troponin I 0.23 NG/ML H # 12/19/19 1926 Total Creatine Kinase 48 U/L 12/20/19 0044 Creatine Kinase MB < 1.0 NG/ML 12/20/194 Creatine Kinase MB Relative Index 2.08 12/20/19 0044 Troponin I 0.16 NG/ML H # 12/20/19 0044 Discharge Medications Scheduled Amlodipine Besylate (Amlodipine Besylate) 5 Mg Tablet, 5 MG PO DAILY, (Reported) Aspirin (Aspirin EC) 81 Mg Tablet.dr, 81 MG PO DAILY, (Reported) Atorvastatin Calcium (Atorvastatin Calcium) 10 Mg Tablet, 10 MG PO DAILY, (Reported) Buspirone HCl (Buspirone HCl) 15 Mg Tablet, 15 MG PO BID, (Reported) Citalopram Hydrobromide (Citalopram HBr) 40 Mg Tablet, 40 MG PO DAILY, (Reported) Cyanocobalamin (Vitamin B-12) (Vitamin B-12) 1,000 Mcg Tab, 1,000 MCG PO DAILY, (Reported) Folic Acid (Folic Acid) 1 Mg Tab, 1 MG PO DAILY, (Reported) Gabapentin (Gabapentin) 100 Mg Capsule, 100 MG PO BID Levocetirizine Dihydrochloride (Levocetirizine Dihydrochloride) 5 Mg Tab, 5 MG PO DAILY, (Reported) Magnesium Oxide (Magnesium Oxide) 400 Mg Tablet, 400 MG PO DAILY, (Reported) Montelukast Sodium (Singulair) 10 Mg Tab, 10 MG PO DAILY, (Reported) Multivitamins (Thera M Plus Tablet) 1 Tab Tab, 1 TAB PO DAILY, (Reported) Oxybutynin Chloride (Oxybutynin Chloride ER) 5 Mg Tab, 5 MG PO DAILY, (Reported) Pantoprazole Sodium (Pantoprazole Sodium) 40 Mg Tab, 40 MG PO DAILY, (Reported) Salmeterol/Fluticasone (Advair 500-50 Diskus) 28 Puff/Inhaler Aerp, 1 PUFF INH BID, (Reported) Thiamine HCl (Vitamin B-1) 50 Mg Tab, 100 MG PO DAILY, (Reported) Umeclidinium [place] (Incruse Ellipta) 62.5 Mcg/Inh Inh, 1 PUFF INH DAILY, (Reported) Scheduled PRN Acetaminophen (Tylenol Extra Strength) 500 Mg Tablet, 1,000 MG PO Q6H PRN for PAIN, (Reported) Albuterol Sulfate (Ventolin Hfa) 108 Mcg/Act Aer, 2 PUFFS INH Q4H PRN for SHORTNESS OF BREATH, (Reported) Epinephrine (Epinephrine) 0.3 Mg/0.3 Ml Inj, 0.3 MG INJ ASDIRECTED PRN for ANAPHYLAXIS, (Reported) Guaifenesin (Mucinex) 600 Mg Tab.er.12h, 600 MG PO BID PRN for CONGESTION, (Reported) Hydroxyzine HCl (Hydroxyzine HCl) 25 Mg Tab, 25 MG PO TID PRN for ITCHING, (Reported) Ipratropium/Albuterol Sulfate (Iprat-Albut 0.5-3(2.5) mg/3 ml) 1 Bell Bell, 1 VIAL INH QID PRN for SHORTNESS OF BREATH, (Reported) Olopatadine HCl (Olopatadine HCl) 0.1% 5ML Drops, 1 DROP OU BID PRN for ITCHING, (Reported) Polyvinyl Alcohol (Artificial Tears) 1.4 % Bell, 1 DROP OU QID PRN for DRY EYES, (Reported) Trazodone HCl (Trazodone HCl) 50 Mg Tablet, 50 MG PO QHS PRN for SLEEP, (Reported) Allergies Coded Allergies: ROMULO Inhibitors (Verified Allergy, Severe, ANGIOEDEMA, 11/26/19) azithromycin (Verified Allergy, Severe, ANAPHYLAXIS, 11/26/19) latex (Verified Allergy, Severe, HIVES, EDEMA, 12/19/19) oseltamivir (Verified Allergy, Severe, ANAPHYLAXIS, 11/26/19) SEASONAL ALLERGIES (Verified Allergy, Unknown, 11/26/19) SREEKANTH TEAGUE MD Dec 21, 2019 13:09
[2019-12-21] MEDS ORDERED: PRED10TA2 PO (18:45)
[2019-12-21] MEDS ORDERED: DOXY-350 PO (18:46)
== END 2019-12-20 13:00 | disposition home or self-care (01) ==
LOC: EDBD 11:28 → M ED 11:28 → M ED INP 11:29 → ENRESERV 19:55 → M PCU 21:25
PROVIDERS: ADMIT Internal Medicine Nephrology; ATTEND Internal Medicine Nephrology
DX: G62.9 Polyneuropathy, unspecified (principal); R10.9 Unspecified abdominal pain; F10.10 Alcohol abuse, uncomplicated; J44.9 Chronic obstructive pulmonary disease, unspecified; K70.11 Alcoholic hepatitis with ascites; K21.9 Gastro-esophageal reflux disease without esophagitis; F17.218 Nicotine dependence, cigarettes, with other nicotine-induced disorders; F41.1 Generalized anxiety disorder; D80.3 Selective deficiency of immunoglobulin G [IgG] subclasses; D69.6 Thrombocytopenia, unspecified; D51.9 Vitamin B12 deficiency anemia, unspecified; N32.81 Overactive bladder; J30.9 Allergic rhinitis, unspecified; L29.9 Pruritus, unspecified; J96.11 Chronic respiratory failure with hypoxia; E78.5 Hyperlipidemia, unspecified; I10 Essential (primary) hypertension; N39.41 Urge incontinence; Z79.82 Long term (current) use of aspirin; Z79.899 Other long term (current) drug therapy; Z91.040 Latex allergy status; Z88.8 Allergy status to other drugs, medicaments and biological substances
CPT/HCPCS: 36415; 71275; 74177; 80048; 80076; 82550; 82553; 83690; 85025; 93005; 93041; 94640; 96372; 99285; J1650; Q9967

== ENCOUNTER 2019-12-21 17:08 | Emergency (ER) | payer OTHER ==
[~2019-12-21] VITALS: Ht 180.3 cm; Wt 70.5 kg
[~2019-12-21 17:08] MED LIST changes: +GABA-1171 PO
[2019-12-21] MEDS ORDERED: ALBUTEROL SULFATE 2.5 MG/0.5 ML INH NEB SOLN INH ONE ×2 (17:30→17:45)
[2019-12-21] MEDS ORDERED: IPRATROPIUM 0.5MG/ALBUTEROL 2.5MG INH SOL UD 3ML (DUONEB) NEB ONE ×2 (17:30→17:45)
[2019-12-21 17:36] LABS: BASO % 0.2 % (0.0-1.0); EOS # 0.1 10^3/uL (0.0-0.5); HEMATOCRIT 38.6 % (42.0-52.0); HEMOGLOBIN 12.5 g/dl (13.5-17.5); LYMPH # 1.8 10^3/uL (1.5-5.0); LYMPH % 17.1 % (24.0-44.0); MEAN CORPUSCULAR HEMOGLOBIN 30.3 pg (27.0-33.0); MEAN CORPUSCULAR HGB CONC 32.4 g/dl (32.0-36.5); MEAN CORPUSCULAR VOLUME 93.5 fl (80.0-96.0); MONO # 0.6 10^3/uL (0.0-0.8); MONO % 5.8 % (0.0-5.0); NEUTROPHILS # 7.9 10^3/uL (1.5-8.5); NEUTROPHILS % 75.6 % (36.0-66.0); PLATELET COUNT, AUTOMATED 203 10^3/uL (150-450); RED BLOOD COUNT 4.13 10^6/uL (4.30-6.10); WHITE BLOOD COUNT 10.4 10^3/uL (4.0-10.0)
--- NOTE | 2019-12-21 17:39 | REP ---
INDICATION: DYSPNEA/COUGH COMPARISON: 12/14/2019 TECHNIQUE: Portable AP view of the chest FINDINGS: The mediastinum and cardiac silhouette are stable and within normal limits for portable technique. The lung garcia are clear without acute consolidation, effusion, or pneumothorax. Skeletal structures are intact. IMPRESSION: No acute cardiopulmonary process appreciated. <Electronically signed by Flex Forrest > 12/21/19 [id number]
[2019-12-21 18:15] LABS: ALBUMIN 3.3 GM/DL (3.2-5.2); BILIRUBIN,DIRECT 0.2 MG/DL (0.0-0.2); BILIRUBIN,TOTAL 0.6 MG/DL (0.2-1.0); THYROID STIMULATING HORMONE 1.37 uIU/ML (0.358-3.740); THYROXINE (T4) 7.7 UG/DL (4.5-12.0); TOTAL PROTEIN 6.7 GM/DL (6.4-8.2)
[2019-12-21 18:45] VITALS: BP 134/71
[2019-12-21] MEDS ORDERED: PRED10TA2 PO (18:45)
[2019-12-21] MEDS ORDERED: DOXY-350 PO (18:46)
--- NOTE | 2019-12-24 08:52 | ECGEPIP ---
[facility] - ED Test Date: 2019-12-21 Pat Name: GORDON SERNA Department: Room: - Gender: Male Rod Piler: jonathan : 1965 Requested By: HARRIS Ryan Order Number: [id number] Reading MD: Esther Harvey Measurements Intervals [place] Rate: 79 P: 69 OK: 156 QRS: 58 QRSD: 101 T: 58 QT: 379 QTc: 437 Interpretive Statements SINUS RHYTHM POSSIBLE SEPTAL MT SIMILAR 12/19/19 Electronically Signed on 12-24-2019 8:52:52 EDT by Esther Harvey
== END 2019-12-21 19:12 | disposition home or self-care (01) ==
LOC: M ED 17:08
DX: J44.1 Chronic obstructive pulmonary disease with (acute) exacerbation (principal); J44.0 Chronic obstructive pulmonary disease with (acute) lower respiratory infection; G62.9 Polyneuropathy, unspecified; J96.10 Chronic respiratory failure, unspecified whether with hypoxia or hypercapnia; Z99.81 Dependence on supplemental oxygen; F32.9 Major depressive disorder, single episode, unspecified; F10.10 Alcohol abuse, uncomplicated; Z79.899 Other long term (current) drug therapy; Z79.82 Long term (current) use of aspirin; Z79.51 Long term (current) use of inhaled steroids; Z91.040 Latex allergy status; Z88.8 Allergy status to other drugs, medicaments and biological substances; Z88.1 Allergy status to other antibiotic agents; F17.200 Nicotine dependence, unspecified, uncomplicated

== ENCOUNTER 2019-12-29 01:16 | Emergency (ER) | payer OTHER ==
[~2019-12-29] VITALS: Ht 180.3 cm; Wt 70.5 kg
[2019-12-29 01:01] LABS: HEMATOCRIT 36.6 % (42.0-52.0); MEAN CORPUSCULAR HEMOGLOBIN 30.2 pg (27.0-33.0); MEAN CORPUSCULAR HGB CONC 32.8 g/dl (32.0-36.5); MEAN CORPUSCULAR VOLUME 92.2 fl (80.0-96.0); NEUTROPHILS % 47.4 % (36.0-66.0); PLATELET COUNT, AUTOMATED 236 10^3/uL (150-450); RED BLOOD COUNT 3.97 10^6/uL (4.30-6.10)
[~2019-12-29 01:16] MED LIST changes: +DOXY-350 PO
[2019-12-29 01:30] LABS: ALBUMIN 3.4 GM/DL (3.2-5.2); ALT/SGPT 15 U/L (12-78); BILIRUBIN,DIRECT < 0.1 MG/DL (0.0-0.2); BILIRUBIN,TOTAL 0.1 MG/DL (0.2-1.0); BLOOD UREA NITROGEN 8 MG/DL (7-18); CALCIUM LEVEL 8.8 MG/DL (8.5-10.1); CARBON DIOXIDE LEVEL 27 MEQ/L (21-32); CHLORIDE LEVEL 107 MEQ/L (98-107); CK-MB VALUE MASS < 1.0 NG/ML (<3.6); CPK CREATINE PHOSPHOKINASE 66 U/L (39-308); CREATININE FOR GFR 0.75 MG/DL (0.70-1.30); GLOMERULAR FILTRATION RATE > 60.0 (>56); LIPASE 103 U/L (73-393); MB/CK RELATIVE INDEX 1.52 (< OR =4); NT-PRO BNP 31 PG/ML (<125); POTASSIUM SERUM 4.3 MEQ/L (3.5-5.1); SODIUM LEVEL 141 MEQ/L (136-145); TOTAL PROTEIN 6.5 GM/DL (6.4-8.2); TROPONIN I < 0.02 NG/ML (< 0.10)
--- NOTE | 2019-12-29 01:39 | REPVR ---
PROCEDURE INFORMATION: Exam: XR Chest, 2 Views Exam date and time: 12/29/2019 1:31 AM Age: 54 years old Clinical indication: Other: Dyspnea/cough TECHNIQUE: Imaging protocol: XR of the chest Views: 2 views. COMPARISON: [place] PORTABLE CHEST X-RAY 12/21/2019 5:21 PM FINDINGS: Lungs: Pulmonary hyperinflation with relative lucency of the lungs. There are no interval infiltrates. Pleural space: Unremarkable. No pleural effusion. No pneumothorax. Heart/Mediastinum: Unremarkable. No cardiomegaly. Bones/joints: Unremarkable. IMPRESSION: Stable chest since 12/21/2019 with evidence of COPD. No acute interval process is identified. Electronically signed by: Alexys Miramontes On 12/29/2019 01:38:56 AM
[2019-12-29] MEDS ORDERED: methylPREDNISolone 125MG 2ML VIAL IV ONE (01:45)
[2019-12-29] MEDS ORDERED: IPRATROPIUM 0.5MG/ALBUTEROL 2.5MG INH SOL UD 3ML (DUONEB) NEB PRN (01:45)
[2019-12-29] MEDS ORDERED: ISOVUE-370 76% 100ML VIAL As Ordered ONE (03:50)
--- NOTE | 2019-12-29 04:16 | REPVR ---
PROCEDURE INFORMATION: Exam: CT Abdomen And Pelvis With Contrast Exam date and time: 12/29/2019 3:59 AM Age: 54 years old Clinical indication: Abdominal pain; Localized; Lower; Additional info: Lower abdominal pain TECHNIQUE: Imaging protocol: Computed tomography of the abdomen and pelvis with intravenous contrast. Radiation optimization: All CT scans at this facility use at least one of these dose optimization techniques: automated exposure control; mA and/or kV adjustment per patient size (includes targeted exams where dose is matched to clinical indication); or iterative reconstruction. Contrast material: ISOVUE 370; Contrast volume: 100 ml; Contrast route: INTRAVENOUS (IV); COMPARISON: CT ABD/PEL W/IV CONTRAST ONLY 12/19/2019 1:54 PM FINDINGS: Liver: The liver attenuation is 68 Hounsfield units and the spleen is 111 Hounsfield units. Gallbladder and bile ducts: Status post cholecystectomy. Pancreas: Normal. No ductal dilation. Spleen: Normal. No splenomegaly. Adrenal glands: Normal. No mass. Kidneys and ureters: There is a right renal cyst measuring 9 mm consistent with a small simple cyst. No follow-up imaging is recommended. Stomach and bowel: Mild stool throughout much of the colon. Appendix: A normal appendix is seen. Intraperitoneal space: Unremarkable. No free air. No significant fluid collection. Vasculature: There is mild calcification of the abdominal aorta with extension into the iliac arteries. Lymph nodes: Unremarkable. No enlarged lymph nodes. Urinary bladder: Unremarkable as visualized. Reproductive: Unremarkable as visualized. Bones/joints: Unremarkable. No acute fracture. Soft tissues: Unremarkable. IMPRESSION: 1. There has been little change from 12/19/2019. No acute interval process is identified. 2. Status post cholecystectomy. 3. Fatty infiltration of the liver. COMMENTS: Consistent with the [place] [employer]'s Incidental Findings Committee white paper (J Am Maribel Radiol 2018): Any incidental renal lesion less than 1 cm or classified as too small to characterize, or any incidental cystic renal lesion characterized as simple-appearing, is likely benign. No follow-up imaging is recommended for these lesions per consensus recommendations based on imaging criteria. Electronically signed by: Alexys Miramontes On 12/29/2019 04:15:39 AM
[2019-12-29] MEDS ORDERED: NS 1,000 ML IV ONE (04:45)
[2019-12-29 05:30] VITALS: BP 155/86
--- NOTE | 2019-12-29 08:03 | ECGEPIP ---
[facility] - ED Test Date: 2019-12-29 Pat Name: GORDON SERNA Department: Room: - Gender: Male Director Speech: krish : 1965 Requested By: STEPHAN MARTI Order Number: [id number] Reading MD: Stephan Myers Measurements Intervals [place] Rate: 97 P: 63 MS: 144 QRS: 64 QRSD: 103 T: 68 QT: 348 QTc: 443 Interpretive Statements SINUS RHYTHM POOR R WAVE PROGRESSION NSTTW ABNORMALITY(S) SIMILAR TO 12/21/19 Electronically Signed on 12-29-2019 8:03:35 EST by tSephan Myers
[2019-12-29] MEDS ORDERED: SENO8.6T10 PO (19:23)
[2020-01-13 15:10] LABS: WHITE BLOOD COUNT 6.3 10^3/uL (4.0-10.0)
[2020-01-13 15:49] LABS: GLUCOSE, FASTING 104 MG/DL (70-100)
== END 2019-12-29 06:05 | disposition home or self-care (01) ==
LOC: M ED 01:16
DX: J44.1 Chronic obstructive pulmonary disease with (acute) exacerbation (principal); R06.00 Dyspnea, unspecified; K59.00 Constipation, unspecified; R10.9 Unspecified abdominal pain; J45.909 Unspecified asthma, uncomplicated; F17.200 Nicotine dependence, unspecified, uncomplicated
CPT/HCPCS: 71046; 74177; 80048; 80076; 82550; 82553; 83605; 83690; 83880; 85025; 93005; 96361; 96374; 99285; J2930; Q9967

== ENCOUNTER 2019-12-29 17:40 | Emergency (ER) | payer OTHER ==
[~2019-12-29] VITALS: Ht 180.3 cm; Wt 70.5 kg
[2019-12-29 18:43] LABS: HEMATOCRIT 37.8 % (42.0-52.0); HEMOGLOBIN 12.4 g/dl (13.5-17.5); MEAN CORPUSCULAR HGB CONC 32.8 g/dl (32.0-36.5); MEAN CORPUSCULAR VOLUME 91.5 fl (80.0-96.0); PLATELET COUNT, AUTOMATED 239 10^3/uL (150-450); RED BLOOD COUNT 4.13 10^6/uL (4.30-6.10); WHITE BLOOD COUNT 8.2 10^3/uL (4.0-10.0)
[2019-12-29] MEDS ORDERED: COMBIVENT RESPIMAT 100-20MCG INHALER 4GM INH ONE (18:45)
[2019-12-29 19:11] LABS: ALBUMIN 3.5 GM/DL (3.2-5.2); ALT/SGPT 14 U/L (12-78); BILIRUBIN,TOTAL 0.4 MG/DL (0.2-1.0); BLOOD UREA NITROGEN 9 MG/DL (7-18); CALCIUM LEVEL 9.1 MG/DL (8.5-10.1); CARBON DIOXIDE LEVEL 28 MEQ/L (21-32); CHLORIDE LEVEL 104 MEQ/L (98-107); CREATININE FOR GFR 0.64 MG/DL (0.70-1.30); GLOMERULAR FILTRATION RATE > 60.0 (>56); GLUCOSE, FASTING 114 MG/DL (70-100); POTASSIUM SERUM 4.1 MEQ/L (3.5-5.1); SODIUM LEVEL 139 MEQ/L (136-145); TOTAL PROTEIN 6.8 GM/DL (6.4-8.2)
[2019-12-29] MEDS ORDERED: SENO8.6T10 PO (19:23)
[2019-12-29] MEDS ORDERED: MAGNESIUM CITRATE 300 ML BTL PO SCH (19:30)
--- NOTE | 2019-12-29 19:41 | REP ---
INDICATION: shortness of breath. COMPARISON: December 29, 2019, 1:25 a.m.. TECHNIQUE: Upright AP views, two views presented. FINDINGS: The lungs are hyperinflated but remain clear. Pleural angles are sharp. Heart size is normal. Monitoring electrodes are seen. Pulmonary vasculature is not increased. IMPRESSION: Hyperinflation, no infiltrate seen. Otherwise no acute disease. <Electronically signed by Vamsi Louis > 12/29/191936
[2019-12-29 19:45] VITALS: BP 129/87
== END 2019-12-29 20:03 | disposition home or self-care (01) ==
LOC: M ED 17:40
DX: K59.00 Constipation, unspecified (principal); J96.11 Chronic respiratory failure with hypoxia; J44.9 Chronic obstructive pulmonary disease, unspecified; Z99.81 Dependence on supplemental oxygen; I10 Essential (primary) hypertension; E53.8 Deficiency of other specified B group vitamins; Z88.8 Allergy status to other drugs, medicaments and biological substances; Z88.1 Allergy status to other antibiotic agents; Z91.040 Latex allergy status; J30.2 Other seasonal allergic rhinitis; Z79.899 Other long term (current) drug therapy; Z79.52 Long term (current) use of systemic steroids; Z79.2 Long term (current) use of antibiotics; Z79.51 Long term (current) use of inhaled steroids; Z79.82 Long term (current) use of aspirin

== ENCOUNTER 2019-12-30 17:45 | Emergency (ER) | payer OTHER ==
[~2019-12-30] VITALS: Ht 180.3 cm; Wt 70.5 kg
[~2019-12-30 17:45] MED LIST changes: +SENO8.6T10 PO
[2019-12-30 20:09] LABS: BASO % 0.2 % (0.0-1.0); EOS % 0.1 % (0.0-3.0); HEMATOCRIT 37.6 % (42.0-52.0); HEMOGLOBIN 11.8 g/dl (13.5-17.5); LYMPH # 2.2 10^3/uL (1.5-5.0); LYMPH % 25.1 % (24.0-44.0); MEAN CORPUSCULAR HEMOGLOBIN 29.4 pg (27.0-33.0); MEAN CORPUSCULAR HGB CONC 31.4 g/dl (32.0-36.5); MEAN CORPUSCULAR VOLUME 93.5 fl (80.0-96.0); MONO # 0.6 10^3/uL (0.0-0.8); MONO % 6.4 % (0.0-5.0); NEUTROPHILS % 67.9 % (36.0-66.0); PLATELET COUNT, AUTOMATED 238 10^3/uL (150-450); RED BLOOD COUNT 4.02 10^6/uL (4.30-6.10); WHITE BLOOD COUNT 8.8 10^3/uL (4.0-10.0)
[2019-12-30 20:34] LABS: ALBUMIN 3.2 GM/DL (3.2-5.2); ALT/SGPT 16 U/L (12-78); BILIRUBIN,DIRECT 0.2 MG/DL (0.0-0.2); BILIRUBIN,TOTAL 0.5 MG/DL (0.2-1.0); BLOOD UREA NITROGEN 11 MG/DL (7-18); CALCIUM LEVEL 8.8 MG/DL (8.5-10.1); CARBON DIOXIDE LEVEL 28 MEQ/L (21-32); CHLORIDE LEVEL 104 MEQ/L (98-107); CREATININE FOR GFR 0.59 MG/DL (0.70-1.30); GLOMERULAR FILTRATION RATE > 60.0 (>56); GLUCOSE, FASTING 81 MG/DL (70-100); LIPASE 73 U/L (73-393); POTASSIUM SERUM 3.8 MEQ/L (3.5-5.1); SODIUM LEVEL 139 MEQ/L (136-145); TOTAL PROTEIN 6.3 GM/DL (6.4-8.2)
[2019-12-30 21:30] VITALS: BP 142/82
== END 2019-12-30 21:56 | disposition home or self-care (01) ==
LOC: M ED 17:45 → EDBD 17:45 → M ED 21:56
DX: R10.9 Unspecified abdominal pain (principal); J44.9 Chronic obstructive pulmonary disease, unspecified; K21.9 Gastro-esophageal reflux disease without esophagitis; I10 Essential (primary) hypertension; F41.9 Anxiety disorder, unspecified; F32.9 Major depressive disorder, single episode, unspecified; F17.200 Nicotine dependence, unspecified, uncomplicated; Z88.1 Allergy status to other antibiotic agents; Z88.8 Allergy status to other drugs, medicaments and biological substances; Z91.040 Latex allergy status; Z79.82 Long term (current) use of aspirin; Z79.899 Other long term (current) drug therapy; Z99.81 Dependence on supplemental oxygen

== ENCOUNTER 2020-01-28 16:37 | Emergency (ER) | payer OTHER ==
[~2020-01-28 16:37] MED LIST changes: +NICO1DIS12 TD; -NICO21DI31 TD
[2020-01-28 17:16] LABS: BASO % 0.5 % (0.0-1.0); HEMATOCRIT 39.7 % (42.0-52.0); HEMOGLOBIN 12.8 g/dl (13.5-17.5); LYMPH # 1.2 10^3/uL (1.5-5.0); LYMPH % 18.8 % (24.0-44.0); MEAN CORPUSCULAR HEMOGLOBIN 28.8 pg (27.0-33.0); MEAN CORPUSCULAR HGB CONC 32.2 g/dl (32.0-36.5); MEAN CORPUSCULAR VOLUME 89.4 fl (80.0-96.0); MONO # 0.4 10^3/uL (0.0-0.8); MONO % 6.1 % (0.0-5.0); NEUTROPHILS # 4.6 10^3/uL (1.5-8.5); NEUTROPHILS % 74.1 % (36.0-66.0); PLATELET COUNT, AUTOMATED 218 10^3/uL (150-450); RED BLOOD COUNT 4.44 10^6/uL (4.30-6.10); WHITE BLOOD COUNT 6.2 10^3/uL (4.0-10.0)
[2020-01-28 17:55] LABS: ALBUMIN 3.5 GM/DL (3.2-5.2); ALT/SGPT 27 U/L (12-78); BILIRUBIN,DIRECT 0.2 MG/DL (0.0-0.2); BILIRUBIN,TOTAL 0.2 MG/DL (0.2-1.0); BLOOD UREA NITROGEN 11 MG/DL (7-18); CALCIUM LEVEL 8.8 MG/DL (8.5-10.1); CARBON DIOXIDE LEVEL 25 MEQ/L (21-32); CHLORIDE LEVEL 108 MEQ/L (98-107); CREATININE FOR GFR 0.62 MG/DL (0.70-1.30); GLOMERULAR FILTRATION RATE > 60.0 (>56); GLUCOSE, FASTING 106 MG/DL (70-100); LIPASE 59 U/L (73-393); POTASSIUM SERUM 3.8 MEQ/L (3.5-5.1); SODIUM LEVEL 140 MEQ/L (136-145); TOTAL PROTEIN 7.7 GM/DL (6.4-8.2)
[2020-01-28] MEDS ORDERED: ISOVUE-370 76% 100ML VIAL As Ordered ONE (18:12)
--- NOTE | 2020-01-28 19:11 | REPVR ---
PROCEDURE INFORMATION: Exam: CT Abdomen And Pelvis With Contrast Exam date and time: 01/28/2020 6:42 PM Age: 55 years old Clinical indication: Abdominal pain; Localized; Right; Additional info: Right sided abdominal pain TECHNIQUE: Imaging protocol: Computed tomography of the abdomen and pelvis with intravenous contrast. Radiation optimization: All CT scans at this facility use at least one of these dose optimization techniques: automated exposure control; mA and/or kV adjustment per patient size (includes targeted exams where dose is matched to clinical indication); or iterative reconstruction. Contrast material: ISOVUE 370; Contrast volume: 100 ml; Contrast route: INTRAVENOUS (IV); COMPARISON: CT ABD/PEL W/IV CONTRAST ONLY 12/29/2019 3:55 AM FINDINGS: Lungs: There is mild dependent atelectasis in both lower lobes. The lungs were not fully imaged. Heart: No cardiomegaly or pericardial effusion. Liver: The attenuation of the liver is lower compared to the spleen, which can be seen with fatty liver infiltration. No liver lesion is seen. The contour of the liver is smooth. No hepatomegaly is noted. Gallbladder and bile ducts: No dilation of the bile ducts is noted. No calcified stones are seen in the common bile duct. There has been a cholecystectomy. There is no fluid collection in the gallbladder fossa. Pancreas: Normal. No dilation of the main pancreatic duct is noted. There is no inflammatory fat stranding around the pancreas to suggest acute pancreatitis. Spleen: Normal. No splenomegaly is noted. Adrenal glands: Normal. No adrenal mass is noted. Kidneys and ureters: There is a 9 mm benign-appearing simple cyst arising from the upper pole of the right kidney, which is unchanged compared to the prior CT on 12/29/2019 and for which further imaging evaluation and follow-up is not recommended. The left kidney is unremarkable. No stones are noted in the kidneys or ureters. There is no hydronephrosis or hydroureter. Stomach and bowel: There is thickening of the wall of the stomach, which may be secondary to its decompressed state versus gastritis. The small bowel is unremarkable. There is no evidence for a bowel obstruction, diverticulosis, diverticulitis, colitis, perforated viscus, pneumatosis intestinalis, intussusception, or volvulus. There is a moderate amount of formed stool in the cecum, ascending colon, and transverse colon. Appendix: Normal. There is no evidence for appendicitis. Intraperitoneal space: No free air. No ascites. No asbcess. Retroperitoneal space: No fluid collection. No mass. Vasculature: The abdominal aorta is patent, normal in caliber, and there is no dissection. The iliac arteries, common femoral arteries, renal arteries, celiac artery, superior mesenteric artery, and inferior mesenteric artery are patent. There are mild to moderate atherosclerotic calcifications. Lymph nodes: No enlarged lymph nodes. Urinary bladder: The distended urinary bladder is normal in appearance. No stones or masses are seen in the bladder. Reproductive: The prostate gland and seminal vesicles are unremarkable. Bones/joints: There is no fracture or dislocation. No suspicious osteolytic or osteoblastic lesion. There are degenerative changes involving the lumbar spine. There is serpiginous sclerosis in both femoral heads, which is compatible with avascular necrosis that is similar in appearance compared to the prior CT abdomen and pelvis on 12/29/2019. No subchondral fracture line or collapse of the articular surfaces of the femoral heads is noted. Soft tissues: Unremarkable. No hernia. No soft tissue fluid collection. IMPRESSION: 1. Thickening of the wall of the stomach, which may be secondary to its decompressed state versus gastritis. 2. Fatty liver. 3. Avascular necrosis of both femoral heads, which is unchanged compared to the prior CT abdomen and pelvis on 12/29/2019. Electronically signed by: Shola Felix On 01/28/2020 19:12:07 PM
[2020-01-28] MEDS ORDERED: SUCR1TA PO (19:27)
[2020-01-28 19:30] VITALS: BP 129/73
[2020-01-29] MEDS ORDERED: CYAN100050 (22:25)
[2020-01-29] MEDS ORDERED: SUCR1TAB56 (22:25)
[2020-01-29] MEDS ORDERED: VITA100T28 (22:25)
== END 2020-01-28 19:35 | disposition home or self-care (01) ==
LOC: M ED 16:37
DX: K29.70 Gastritis, unspecified, without bleeding (principal); J44.9 Chronic obstructive pulmonary disease, unspecified; F17.210 Nicotine dependence, cigarettes, uncomplicated; K76.9 Liver disease, unspecified; M54.9 Dorsalgia, unspecified; K21.9 Gastro-esophageal reflux disease without esophagitis; F41.9 Anxiety disorder, unspecified; F32.9 Major depressive disorder, single episode, unspecified; F10.10 Alcohol abuse, uncomplicated; Z88.1 Allergy status to other antibiotic agents; Z88.8 Allergy status to other drugs, medicaments and biological substances; Z99.81 Dependence on supplemental oxygen; Z79.82 Long term (current) use of aspirin; Z79.899 Other long term (current) drug therapy
CPT/HCPCS: 36415; 74177; 80048; 80076; 83605; 83690; 85025; 93041; 99285; Q9967

== ENCOUNTER 2020-01-29 19:29 | Emergency (ER) | payer OTHER ==
[~2020-01-29] VITALS: Ht 177.8 cm; Wt 70.5 kg
[~2020-01-29 19:29] MED LIST changes: +SUCR1TA PO
[2020-01-29] MEDS ORDERED: GI COCKTAIL 50ML BTL(HYOSCYAMINE/MAALOX/LIDOCAINE VISCOUS)(1:3:1) PO ONE (20:45)
[2020-01-29] MEDS ORDERED: SUCRALFATE 1 GM TAB PO ONE (22:00)
[2020-01-29] MEDS ORDERED: CYAN100050 (22:25)
[2020-01-29] MEDS ORDERED: SUCR1TAB56 (22:25)
[2020-01-29] MEDS ORDERED: VITA100T28 (22:25)
[2020-01-29 22:42] VITALS: BP 153/78
== END 2020-01-29 22:43 | disposition home or self-care (01) ==
LOC: M ED 19:29
DX: K29.70 Gastritis, unspecified, without bleeding (principal); K21.9 Gastro-esophageal reflux disease without esophagitis; I10 Essential (primary) hypertension; J44.9 Chronic obstructive pulmonary disease, unspecified; F10.10 Alcohol abuse, uncomplicated; F17.210 Nicotine dependence, cigarettes, uncomplicated; K76.9 Liver disease, unspecified; F41.9 Anxiety disorder, unspecified; F32.9 Major depressive disorder, single episode, unspecified; Z88.1 Allergy status to other antibiotic agents; Z88.8 Allergy status to other drugs, medicaments and biological substances; Z91.040 Latex allergy status; Z99.81 Dependence on supplemental oxygen; Z79.82 Long term (current) use of aspirin; Z79.899 Other long term (current) drug therapy

== ENCOUNTER 2020-02-02 21:36 | Emergency (ER) | payer OTHER ==
[~2020-02-02] VITALS: Ht 180.3 cm; Wt 70.5 kg
[~2020-02-02 21:36] MED LIST changes: +CYAN100050; +SUCR1TAB56; +VITA100T28
[2020-02-02 23:45] VITALS: BP 131/89
== END 2020-02-03 00:11 | disposition home or self-care (01) ==
LOC: M ED 21:36
DX: R10.9 Unspecified abdominal pain (principal); G89.29 Other chronic pain; F41.1 Generalized anxiety disorder; R45.851 Suicidal ideations; F99 Mental disorder, not otherwise specified; Z88.8 Allergy status to other drugs, medicaments and biological substances; Z88.1 Allergy status to other antibiotic agents; Z91.040 Latex allergy status; J30.2 Other seasonal allergic rhinitis; Z79.899 Other long term (current) drug therapy; Z79.51 Long term (current) use of inhaled steroids; Z79.82 Long term (current) use of aspirin

== ENCOUNTER 2020-02-24 15:08 | Emergency (ER) | payer OTHER ==
--- NOTE | 2020-02-24 18:18 | REPVR ---
PROCEDURE INFORMATION: Exam: MR Abdomen Without Contrast Exam date and time: 02/24/2020 4:35 PM Age: 55 years old Clinical indication: Abdominal pain; Right upper quadrant (ruq); Patient HX: Area of point tenderness to right of midline, marker placed over area PT indicated. ; Additional info: ? Spigelian hernia ruq TECHNIQUE: Imaging protocol: MR of the abdomen without contrast. COMPARISON: CT ABD/PEL W/IV CONTRAST ONLY 01/28/2020 6:26 PM FINDINGS: Liver: 4 mm simple cyst segment 4B left lobe of the liver. Liver otherwise unremarkable. There is enlargement of the left and caudate lobes of the liver as well as a lobular surface contour of the liver. Findings may indicate the presence of cirrhosis in this patient with no reported history of chronic liver disease. No focal abnormality demonstrated. Gallbladder and bile ducts: There has been a cholecystectomy. Pancreas: Unremarkable. No ductal dilation. Spleen: Unremarkable. No splenomegaly. Adrenals: Unremarkable. No mass. Kidneys and ureters: Unremarkable. No solid mass. No hydronephrosis. Stomach and bowel: Visualized stomach and intestines are unremarkable. Intraperitoneal space: No free fluid. Arteries: No abdominal aortic aneurysm. Bones/joints: Unremarkable. Soft tissues: No hernia in the anterior abdominal wall in the area of clinical concern. IMPRESSION: 1. There has been a cholecystectomy. 2. There is enlargement of the left and caudate lobes of the liver as well as a lobular surface contour of the liver. Findings may indicate the presence of cirrhosis in this patient with no reported history of chronic liver disease. No focal abnormality demonstrated. 3. No hernia in the anterior abdominal wall in the area of clinical concern. Electronically signed by: Andrew Allan On 02/24/2020 18:18:08 PM
[2020-02-24 19:29] VITALS: BP 135/68
--- NOTE | 2020-02-25 07:03 | ED PDOC ---
Post-Departure Follow-Up radiology report faxed to Esther Diaz MD Feb 25, 2020 07:03
== END 2020-02-24 19:31 | disposition home or self-care (01) ==
LOC: M ED 15:08
DX: R10.9 Unspecified abdominal pain (principal); G89.29 Other chronic pain; K29.20 Alcoholic gastritis without bleeding; I10 Essential (primary) hypertension; J44.9 Chronic obstructive pulmonary disease, unspecified; N32.81 Overactive bladder; I42.9 Cardiomyopathy, unspecified; F10.10 Alcohol abuse, uncomplicated; F17.210 Nicotine dependence, cigarettes, uncomplicated; Z88.8 Allergy status to other drugs, medicaments and biological substances; Z88.1 Allergy status to other antibiotic agents; Z91.040 Latex allergy status; Z79.899 Other long term (current) drug therapy; Z79.51 Long term (current) use of inhaled steroids; Z79.82 Long term (current) use of aspirin; Z99.81 Dependence on supplemental oxygen

== ENCOUNTER 2020-03-04 10:36 | Emergency (ER) | payer OTHER ==
[~2020-03-04] VITALS: Ht 182.9 cm; Wt 70.5 kg
[2020-03-04 13:05] LABS: BASO % 0.3 % (0.0-1.0); EOS % 0.6 % (0.0-3.0); HEMATOCRIT 38.9 % (42.0-52.0); HEMOGLOBIN 12.5 g/dl (13.5-17.5); LYMPH # 1.5 10^3/uL (1.5-5.0); MEAN CORPUSCULAR HEMOGLOBIN 29.2 pg (27.0-33.0); MEAN CORPUSCULAR HGB CONC 32.1 g/dl (32.0-36.5); MEAN CORPUSCULAR VOLUME 90.9 fl (80.0-96.0); MONO # 0.9 10^3/uL (0.0-0.8); MONO % 13.3 % (0.0-5.0); NEUTROPHILS # 4.4 10^3/uL (1.5-8.5); NEUTROPHILS % 63.4 % (36.0-66.0); PLATELET COUNT, AUTOMATED 235 10^3/uL (150-450); RED BLOOD COUNT 4.28 10^6/uL (4.30-6.10); WHITE BLOOD COUNT 6.9 10^3/uL (4.0-10.0)
[2020-03-04 13:50] LABS: ALBUMIN 3.6 GM/DL (3.2-5.2); ALT/SGPT 24 U/L (12-78); BILIRUBIN,TOTAL 0.9 MG/DL (0.2-1.0); BLOOD UREA NITROGEN 9 MG/DL (7-18); CALCIUM LEVEL 9.1 MG/DL (8.5-10.1); CARBON DIOXIDE LEVEL 30 MEQ/L (21-32); CHLORIDE LEVEL 105 MEQ/L (98-107); CREATININE FOR GFR 0.59 MG/DL (0.70-1.30); FOLATE 17.6 NG/ML (>5.4); GLOMERULAR FILTRATION RATE > 60.0 (>56); GLUCOSE, FASTING 106 MG/DL (70-100); IRON (FE) 248 UG/DL (65-175); PERCENT SATURATION 58.8 % (19.7-50.0); POTASSIUM SERUM 4.8 MEQ/L (3.5-5.1); SODIUM LEVEL 137 MEQ/L (136-145); THYROID STIMULATING HORMONE 0.986 uIU/ML (0.358-3.740); TOTAL 25(OH) VITAMIN D 10.9 NG/ML (30.0-100.0); TOTAL IRON BINDING CAPACITY 422 UG/DL (250-450); TOTAL PROTEIN 6.7 GM/DL (6.4-8.2); VITAMIN B12 LEVEL 375 PG/ML (247-911)
[2020-03-04] MEDS ORDERED: VITA50005 PO (14:27)
[2020-03-04 14:45] VITALS: BP 157/95
== END 2020-03-04 15:09 | disposition home or self-care (01) ==
LOC: EDBD 10:36 → M ED 10:36
DX: E55.9 Vitamin D deficiency, unspecified (principal); R20.2 Paresthesia of skin; R20.8 Other disturbances of skin sensation; Z91.81 History of falling; R10.9 Unspecified abdominal pain; G89.29 Other chronic pain; F10.10 Alcohol abuse, uncomplicated; M54.5 Low back pain; J30.2 Other seasonal allergic rhinitis; Z87.891 Personal history of nicotine dependence; Z91.040 Latex allergy status; Z88.8 Allergy status to other drugs, medicaments and biological substances; Z79.899 Other long term (current) drug therapy; Z79.51 Long term (current) use of inhaled steroids; Z79.82 Long term (current) use of aspirin

== ENCOUNTER 2020-03-14 06:44 | Emergency (ER) | payer OTHER ==
[~2020-03-14] VITALS: Ht 180.3 cm; Wt 70.5 kg
[~2020-03-14 06:44] MED LIST changes: -MAG400TA PO; +MAGN400T35 PO; +VITA50005 PO
--- OUTSIDE RECORDS SUMMARY | 2020-03-14 06:50 | CCD ---
Author Author [facility] Organization [facility] Address Unknown Phone Unavailable Care Team Providers Care Anesthetist Name Role Phone EitanMiki huizar Unavailable PROBLEMS Type Condition ICD9-CM Code [id number] Code Onset Dates Condition S tatus SNOMED Code Notes Problem Nicotine use disorder F17.200 Active 87652803 Problem Chronic pruritus L29.9 Active 035586462 Problem ZELDA (generalized anxiety disorder) F41.1 Activ e 32730120 Problem OAB (overactive bladder) N32.81 Active 5628104 00 Problem Mild persistent asthma without complication J45.30 Active 178490901 Problem Allergic conjunctivitis of both eyes H10.13 Act sonam 419858332 Problem Psychophysiological insomnia F51.04 Active 425 964086 Problem Allergic rhinitis J30.9 Active 48892364 Problem Gastroesophageal reflux disease with esophagitis K 21.0 Active 039036028 Problem Essential hypertension I10 Active 79028999 Problem Colon cancer screening Z12.11 Active 791705415 Problem B12 deficiency E53.8 Active 349070334 Problem Prostate cancer screening Z12.5 Active 977838 001 Problem 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 Active 298883814045480 Problem IFG (impaired fasting glucose) R73.01 Active 3 73686083 Problem Encounter for screening for lung cancer Z12.2 Active 506150885 Problem Mixed hyperlipidemia E78.2 Active 101136702 Problem Peripheral neuropathy G62.9 Active 255721521 Problem Adverse effect of drug therapy T50.905A Active Problem Chronic major depressive disorder F32.9 Active 514314763 Problem Impingement syndrome of right shoulder M75.41 A ctive 184802379 Problem Alcoholic cardiomyopathy I42.6 Active 2070851 8 Problem Stage 3 severe COPD by GOLD classification J44.9 Active 594101253 Problem Chronic alcohol abuse F10.10 Active 55895811 ALLERGIES Allergen (clinical drug ingredient) Drug/Non Drug Allergy do cumented on EMR Reaction Allergy Type Onset Date Status latex swelling,redness,itching Non Drug Allergy Active ACEI Anaphylaxis Non Drug Allergy Active azithromycin Anaphylaxis Non Drug Allergy Activ e oseltamivir Tamiflu([facility] Code:[address]-68) Anaphylaxis Drug Allergy Active seasonal Unknown Non Drug Allergy Active ENCOUNTERS from 1963 to 2020-03-06 Encounter Location Date Provider Diagnosis [address] [place] [address] Feb, 021 Miki Laidr IMMUNIZATIONS Vaccine Route Administration Date Status Influenza (18 yrs & older) Flublok IM Intramuscular Nov 27, 2017 Administered Pneumococcal Adult 0.5mL (Pneumovax 23) IM Intramuscular Oct Administered TDAP Unknown July 17, 2009 Administered Pneumococcal 0.5mL (Prevnar 13) IM Intramuscular Nov 26, 2015 Administered Influenza (6mo & up) Fluzone Unknown Nov 01, 2016 Oth ers Influenza (6mo & up) Fluzone IM Intramuscular Nov 26, 2015 Ad ministered Influenza (6mo & up) Fluzone IM Intramuscular Nov 14, 2014 Ad ministered Influenza (6mo & up) Fluzone IM Intramuscular Nov 29, 2013 Ad ministered Influenza (6mo & up) Fluzone IM Intramuscular Dec 20, 2012 Ad ministered SOCIAL HISTORY Tobacco Use: Social History Observation Description Date Details (start date - stop date) Current Smoker Sex Assigned At : Social History Observation Description Sex Assigned At Unknown Education: Question Answer Notes Level of Education: College Audit Question Answer Notes Total Score: 9 Interpretation: Simple Advice Language: Question Answer Notes Languages spoken: Divehi Methodist: Question Answer Notes Methodist 06 [employer] Sexual Hx: Question Answer Notes Had sex in the last 12 months (vaginal, oral, or anal)? No Have you ever had an STD? No Drug and Alcohol Question Answer Notes Total Score: 0 Interpretation: No problems reported Alcohol Screening: Question Answer Notes Points 0 Interpretation Negative BMI Care Goal Follow-Up Question Answer Notes Below Normal BMI Follow-Up Lifestyle education regarding t Tobacco Use: Question Answer Notes Are you a: current every day smoker Additional Findings: Tobacco User Light cigarette smoker ((1 -9 cigs/day) Smoking Cessation Information Given 02/10/2020 REASON FOR REFERRAL No Information VITAL SIGNS No information MEDICATIONS Medication SIG (Take, Route, Frequency, Duration) Notes Start Da te End Date Status Levocetirizine Dihydrochloride 5 MG 1 tablet in the ev ening Orally Once a day for 30 Days Active Incruse Ellipta 62.5 MCG/INH 1 puff Inhalation Once a day for 30 Days Active Olopatadine HCl 0.1 % 1 drop into each eye Ophthalmic Twice a da y for 30 Days Active Nasacort Allergy 24HR 55 MCG/ACT 2 puffs in each nostr il Nasally every morning for 30 Days Active Ipratropium-Albuterol 0.5-2.5 (3) MG/3ML 3 ml Inhalati on every 4 hours as needed for 30 Days Active EpiPen 2-Kirby 0.3 MG/0.3ML as directed Injection prn for 30 Days Active Mucinex 600 MG 1 tablet Orally every 12 hrs for 30 Days Active Advair Diskus 500-50 MCG/DOSE 1 Inhalation every 12 hrs for 30 Days Active Ventolin HFA 108 (90 Base) MCG/ACT 2 puffs as needed I nhalation every 4 hrs for 30 Days Active Gabapentin 100 MG 1 capsule Orally TWICE A DAY Nov, 0 Active TraZODone HCl 50 MG 1 tab Orally before bedtime prn for 30 Days Active Thiamine 50 MG 2 capsule Orally Once a day for 30 Active Pantoprazole Sodium 40 MG 1 tablet Orally every morning for 30 day(s) Active Oxybutynin Chloride ER 5 MG 1 tablet Orally Once a day for 30 Days Active Folic Acid 1 MG 1 cap(s) Orally Once a day for 30 Days Active Montelukast Sodium 10 MG 1 tablet Orally at bedtime Active May Have - 3l nasal cannula orally/nasally Daily Nov, 019 Active Citalopram Hydrobromide 40 MG 1 tablet Orally Once a day for 30 Days Active Vitamin B-1 50 MG 2 tab Orally Once a day for 30 Days Active AmLODIPine Besylate 5 MG 1 tablet Orally Once a day for 30 Days Active Artificial Tear Solution - as directed _ Instill 1 fercho p into each eye 4 times daily as needed for dry eyes for 30 Days Active Vitamin B-12 1000 MCG 1 tablet Orally Once a day for 30 Days Active Magnesium Oxide 400 MG 1 tablet Orally once daily for 30 Days Active HydrOXYzine HCl 25 MG 1 tab Orally TID prn pruritus for 30 Days Active Aspirin Adult Low Dose 81 MG 1 tablet Orally Once a day for 30 Days Active BusPIRone HCl 15 MG 1 tablet Orally Twice a day Active Tylenol Extra Strength 500 MG 2 tablet Orally every 6 hrs as nee ded for pain Jul, Active PROCEDURES No Information RESULTS No Results REASON FOR VISIT ER Visit [facility] 03/04; Diff Breathing MEDICAL (GENERAL) HISTORY Type Description Date Medical History severe COPD (Gold III) (03/27 FEV1 1.8L/ratio 57%)/asthma overlap Medical History hypertension, essential Medical History allergic rhinitis/conjunctiv itis/ho multiple drug anaphalaxis (ACEI, oseltamvir, azithromycin, atex) Medical History nicotine use disorder-68 PY ho (2-48Y 2P PD) Medical History GERD Medical History chronic/MDD/ZELDA Medical History chronic EthOH abuse/alcoholi c hepatitis. 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 Medical History chronic mild leukopenia/thrombocytopenia Medical History B12 deficiency Medical History chronic pruritus Medical History OAB Medical History ho severe alcoholic CMP (10/04 2016 LVEF 15% c global hypokinesis)//LVEF 55%, AVS, mild AR/MR-09/12/17 TTE Medical History chronic disability 2 COPD/asthma Medical History lumbar spondylosis-10/30/19 MR I LS B L35 mild B NFN 2 faceat arthropathy, small bulges, [facility] Surgical History varicocoele ligation Surgical History [facility]- cardiac c atheterization- no angiographic CAD/normal LV systolic function/mild apical hypokinesis suggestive of apical ballooning 09/12/13 Surgical History Colonoscopy-Dr. Weiss 12/01/2014 Surgical History Cardiac Cath- [facility] 11/23/2016 Surgical History R IOL 11/2018 Surgical History lap [facility] 01/04/2019 Hospitalization History respiratory distress requiri ng intubation, subsequent EKG with nonspecific ST wave changes and mild elevation in troponin level with subsequent transfer for cardiac catheterization 09/09 Hospitalization History Admitted due to alcholism- [facility] 05/2015 Hospitalization History Detox: [facility] 09/2015 Hospitalization History Suicidal ideation: alcoholism Hospitalization History syncope 09/2016 Hospitalization History [facility]- Cardiomyopathy 12/2016 Hospitalization History [facility]- ETOH Detox, COPD exa cerbation 01/2017 Hospitalization History COPD exacerbation, pneumonia, Influe nza- [facility] 03/2017 Hospitalization History [facility]-COPD 06/07- Hospitalization History [facility]- IMHU 06/2017 Hospitalization History [facility]- COPD Exacerbation 09/10/17 Hospitalization History [facility]- Angioedema 10/06/17 Hospitalization History COPD exacerbation 10/2017 Hospitalization History COPD exacerbation 07/2018 Hospitalization History COPD exacerbation/peripheral neuropathy flares, T-I to 0.4 12/19- Goals Section No Information Health Concerns No Information MEDICAL EQUIPMENT No Information MENTAL STATUS No Information FUNCTIONAL STATUS No Information ASSESSMENTS No Information PLAN OF TREATMENT Next Appt Details Provider Name:Miki Laird, 2020-03-09 0 2:00:00 PM, [address] [place] [address], [phone], Insurance Providers Payer Name Payer Address Payer Phone Insured Name Patient Relati onship to Insured Coverage Start Date Coverage End Date [facility] [employer] DEPT [address] [facility] [phone] [place] CASTILLO self
--- OUTSIDE RECORDS SUMMARY | 2020-03-14 06:50 | CCD ---
Author Author [facility] Organization [facility] Address Unknown Phone Unavailable Care Team Providers Care Trimmer Helper Name Role Phone EitanMiki huizar Unavailable PROBLEMS Type Condition ICD9-CM Code [id number] Code Onset Dates Condition S tatus SNOMED Code Notes Problem Nicotine use disorder F17.200 Active 13486312 Problem Chronic pruritus L29.9 Active 792351212 Problem ZELDA (generalized anxiety disorder) F41.1 Activ e 57359628 Problem OAB (overactive bladder) N32.81 Active 5047473 00 Problem Mild persistent asthma without complication J45.30 Active 354318564 Problem Allergic conjunctivitis of both eyes H10.13 Act sonam 462770944 Problem Psychophysiological insomnia F51.04 Active 425 219180 Problem Allergic rhinitis J30.9 Active 92093295 Problem Gastroesophageal reflux disease with esophagitis K 21.0 Active 400739314 Problem Essential hypertension I10 Active 94121544 Problem Colon cancer screening Z12.11 Active 065032938 Problem B12 deficiency E53.8 Active 640758346 Problem Prostate cancer screening Z12.5 Active 621638 001 Problem 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 Active 295016549646076 Problem IFG (impaired fasting glucose) R73.01 Active 3 46059001 Problem Encounter for screening for lung cancer Z12.2 Active 808555152 Problem Mixed hyperlipidemia E78.2 Active 633786957 Problem Peripheral neuropathy G62.9 Active 497931606 Problem Adverse effect of drug therapy T50.905A Active Problem Chronic major depressive disorder F32.9 Active 799972348 Problem Impingement syndrome of right shoulder M75.41 A ctive 974037066 Problem Alcoholic cardiomyopathy I42.6 Active 2784462 8 Problem Stage 3 severe COPD by GOLD classification J44.9 Active 329116321 Problem Chronic alcohol abuse F10.10 Active 66841925 ALLERGIES Allergen (clinical drug ingredient) Drug/Non Drug Allergy do cumented on EMR Reaction Allergy Type Onset Date Status latex swelling,redness,itching Non Drug Allergy Active ACEI Anaphylaxis Non Drug Allergy Active azithromycin Anaphylaxis Non Drug Allergy Activ e oseltamivir Tamiflu([facility] Code:[address]-05) Anaphylaxis Drug Allergy Active seasonal Unknown Non Drug Allergy Active ENCOUNTERS from 1963 to 2020-03-11 Encounter Location Date Provider Diagnosis [address] [place] [address] Feb, 021 Miki Laird IMMUNIZATIONS Vaccine Route Administration Date Status Influenza [...] of Education: College Audit Question Answer Notes Interpretation: Simple Advice Total Score: 9 Language: Question Answer Notes Languages spoken: Bulgarian Gnosticism: Question Answer Notes Gnosticism 06 Confucianism Sexual Hx: Question Answer Notes Had sex in the last 12 months (vaginal, oral, or anal)? No Have you ever had an STD? No Drug and Alcohol Question Answer Notes Interpretation: No problems reported Total Score: 0 Alcohol Screening: Question Answer Notes Points 0 [...] Information RESULTS No Results REASON FOR VISIT 3rd no show MEDICAL (GENERAL) HISTORY Type Description Date Medical [...] [facility] Surgical History varicocoele ligation Surgical History [facility]- cardiac c atheterization- no angiographic CAD/normal LV systolic function/mild apical hypokinesis suggestive of apical ballooning 09/12/13 Surgical History Colonoscopy-Dr. Weiss 12/01/2014 Surgical History Cardiac Cath- [facility] 11/23/2016 Surgical History R IOL 11/2018 Surgical History lap [facility] 01/04/2019 Hospitalization History respiratory distress requiri ng intubation, subsequent EKG with nonspecific ST wave changes and mild elevation in troponin level with subsequent transfer for cardiac catheterization 09/09 Hospitalization History Admitted due to alcholism- [facility] 05/2015 Hospitalization History Detox: [facility] 09/2015 Hospitalization History Suicidal ideation: alcoholism Hospitalization History syncope 09/2016 Hospitalization History [facility]- Cardiomyopathy 12/2016 Hospitalization History [facility]- ETOH Detox, COPD exa cerbation 01/2017 Hospitalization History COPD exacerbation, pneumonia, Influe nza- [facility] 03/2017 Hospitalization History [facility]-COPD 06/07- Hospitalization History [facility]- IMHU 06/2017 Hospitalization History [facility]- COPD Exacerbation 09/10/17 Hospitalization History [facility]- Angioedema 10/06/17 Hospitalization History COPD exacerbation 10/2017 Hospitalization History COPD exacerbation 07/2018 Hospitalization History COPD exacerbation/peripheral neuropathy flares, T-I to 0.4 12/19- Goals Section No Information Health Concerns No Information MEDICAL EQUIPMENT No Information MENTAL STATUS No Information FUNCTIONAL STATUS No Information ASSESSMENTS No Information PLAN OF TREATMENT Next Appt Details Provider Name:Miki Laird, 2020-03-26 0 2:00:00 PM, [facility] [place], [address], Insurance Providers Payer Name Payer Address Payer Phone Insured Name Patient Relati onship to Insured Coverage Start Date Coverage End Date [facility] [employer] CLAIM[employer] DEPT [address] [facility] [phone] G[place]ON CASTILLO self
--- OUTSIDE RECORDS SUMMARY | 2020-03-14 06:51 | CCD ---
Author Author [facility] Organization [facility] Address Unknown Phone Unavailable Care Team Providers Care Bog Worker Name Role Phone Fermín, A Liza SALES AND OPERATIONS TRAINEE Unavailable Unavailable Fermín, A Liza SALES AND OPERATIONS TRAINEE Unavailable Unavailable Fermín, A Liza SALES AND OPERATIONS TRAINEE Unavailable Unavailable Fermín, A Liza SALES AND OPERATIONS TRAINEE Unavailable Unavailable Fermín, A Liza SALES AND OPERATIONS TRAINEE Unavailable Unavailable Fermín, A Liza SALES AND OPERATIONS TRAINEE Unavailable Unavailable Fermín, A Liza SALES AND OPERATIONS TRAINEE Unavailable Unavailable Fermín, A Liza SALES AND OPERATIONS TRAINEE Unavailable Unavailable Efrmín, A Liza SALES AND OPERATIONS TRAINEE Unavailable Unavailable Fermín, A Liza SALES AND OPERATIONS TRAINEE Unavailable Unavailable Fermín, A Liza SALES AND OPERATIONS TRAINEE Unavailable Unavailable Fermín, A Liza SALES AND OPERATIONS TRAINEE Unavailable Unavailable Ferímn, A Liza SALES AND OPERATIONS TRAINEE Unavailable Unavailable Fermín, A Liza SALES AND OPERATIONS TRAINEE Unavailable Unavailable Fermín, A Liza SALES AND OPERATIONS TRAINEE Unavailable Unavailable Fermín, A Liza SALES AND OPERATIONS TRAINEE Unavailable Unavailable Fermín, A Liza SALES AND OPERATIONS TRAINEE Unavailable Unavailable Fermín, A Liza SALES AND OPERATIONS TRAINEE Unavailable Unavailable Fermín, A Liza SALES AND OPERATIONS TRAINEE Unavailable Unavailable Fermín, A Liza SALES AND OPERATIONS TRAINEE Unavailable Unavailable Fermín, A Liza SALES AND OPERATIONS TRAINEE Unavailable Unavailable Fermín, A Liza SALES AND OPERATIONS TRAINEE Unavailable Unavailable Fermín, A Liza SALES AND OPERATIONS TRAINEE Unavailable Unavailable Fermín, A Liza SALES AND OPERATIONS TRAINEE Unavailable Unavailable Fermín, A Liza SALES AND OPERATIONS TRAINEE Unavailable Unavailable Fermín, A Liza SALES AND OPERATIONS TRAINEE Unavailable Unavailable Fermín, A Liza SALES AND OPERATIONS TRAINEE Unavailable Unavailable Rosie Stanton MD Unavailable Unavailable Kolflorencio Rosie MD Unavailable Unavailable Kolflorencio Rosie MD Unavailable Unavailable Kolflorencio Rosie MD Unavailable Unavailable Kolflorencio Rosie MD Unavailable Unavailable Kolflorencio Rosie MD Unavailable Unavailable Koloms Rosie MD Unavailable Unavailable Koloms Rosie MD Unavailable Unavailable Koloms Rosie MD Unavailable Unavailable Koloms Rosie MD Unavailable Unavailable Kolflorencio Rosie Unavailable Unavailable Koloms Rosie Unavailable Unavailable Kolflorencio Rosie Unavailable Unavailable Kolflorencio Rosie MD Unavailable Unavailable Kolflorencio Rosie MD Unavailable Unavailable Koloms Rosie MD Unavailable Unavailable Kolflorencio Rosie MD Unavailable Unavailable Koloms Rosie Unavailable Unavailable Koloms Rosie Unavailable Unavailable Koloms Rosie Unavailable Unavailable Koloms Rosie Unavailable Unavailable Kolflorencio Rosie MD Unavailable Unavailable Kolflorencio Rosie Unavailable Unavailable Koloms Rosie Unavailable Unavailable Koloms Rosie Unavailable Unavailable Rosie Stanton MD Unavailable Unavailable Rosie Stanton MD Unavailable Unavailable Rosie Stanton MD Unavailable Unavailable Arnett, L Cyndee PA Unavailable Unavailable Arnett, L Cyndee PA Unavailable Unavailable Arnett, L Cyndee PA Unavailable Unavailable Arnett, L Cyndee PA Unavailable Unavailable Arnett, L Cyndee PA Unavailable Unavailable Arnett, L Cyndee PA Unavailable Unavailable Arnett, L Cyndee PA Unavailable Unavailable Arnett, L Cyndee PA Unavailable Unavailable Arnett, L Cyndee PA Unavailable Unavailable Arnett, L Cyndee PA Unavailable Unavailable Arnett, L Cyndee PA Unavailable Unavailable Arnett, L Cyndee PA Unavailable Unavailable Arnett, L Cyndee PA Unavailable Unavailable Arnett, L Cyndee PA Unavailable Unavailable Arnett, L Cyndee PA Unavailable Unavailable Arnett, L Cyndee PA Unavailable Unavailable Arnett, L Cyndee PA Unavailable Unavailable Arnett, L Cyndee PA Unavailable Unavailable Arnett, L Cyndee PA Unavailable Unavailable Arnett, L Cyndee PA Unavailable Unavailable Arnett, L Cyndee PA Unavailable Unavailable Arnett, L Cyndee PA Unavailable Unavailable Arnett, L Cyndee PA Unavailable Unavailable Arnett, L Cyndee PA Unavailable Unavailable Arnett, L Cyndee PA Unavailable Unavailable Arnett, L Cyndee PA Unavailable Unavailable Arnett, L Cyndee PA Unavailable Unavailable Arnett, L Cyndee PA Unavailable Unavailable Arnett, L Cyndee PA Unavailable Unavailable Arnett, L Cyndee PA Unavailable Unavailable Arnett, L Cyndee PA Unavailable Unavailable Arnett, L Cyndee PA Unavailable Unavailable Arnett, L Cyndee PA Unavailable Unavailable Arnett, L Cyndee PA Unavailable Unavailable Arnett, L Cyndee PA Unavailable Unavailable Arnett, L Cyndee PA Unavailable Unavailable Swatsworth, A Corona PA Unavailable Unavailable Swatsworth, A Corona PA Unavailable Unavailable Swatsworth, A Corona PA Unavailable Unavailable Swatsworth, A Corona PA Unavailable Unavailable Swatsworth, A Corona PA Unavailable Unavailable Swatsworth, A Corona PA Unavailable Unavailable Swatsworth, A Corona PA Unavailable Unavailable Swatsworth, A Corona PA Unavailable Unavailable Swatsworth, A Corona PA Unavailable Unavailable Swatsworth, A Corona PA Unavailable Unavailable Swatsworth, A Corona PA Unavailable Unavailable Swatsworth, A Corona PA Unavailable Unavailable Swatsworth, A Corona PA Unavailable Unavailable Swatsworth, A Corona PA Unavailable Unavailable Margot Johnson MD Unavailable Unavailable Margot Johnson MD Unavailable Unavailable Margot Johnson MD Unavailable Unavailable Margot Johnson MD Unavailable Unavailable Margot Johnson MD Unavailable Unavailable Margot Johnson MD Unavailable Unavailable Margot Johnson MD Unavailable Unavailable Margot Johnson MD Unavailable Unavailable Margot Johnson MD Unavailable Unavailable Margot Johnson MD Unavailable Unavailable Margot Johnson MD Unavailable Unavailable Margot Johnson MD Unavailable Unavailable Margot Johnson MD Unavailable Unavailable Margot Johnson MD Unavailable Unavailable Margot Johnson MD Unavailable Unavailable Margot Johnson MD Unavailable Unavailable Margot Johnson MD Unavailable Unavailable Margot Johnson MD Unavailable Unavailable Margot Johnson MD Unavailable Unavailable Margot Johnson MD Unavailable Unavailable Margot Johnson MD Unavailable Unavailable Margot Johnson MD Unavailable Unavailable Margot Johnson MD Unavailable Unavailable Margot Johnson MD Unavailable Unavailable Margot Johnson MD Unavailable Unavailable Margot Johnson MD Unavailable Unavailable Margot Johnson MD Unavailable Unavailable Margot Johnson MD Unavailable Unavailable Margot Johnson MD Unavailable Unavailable Margot Johnson MD Unavailable Unavailable Margot Johnson MD Unavailable Unavailable Margot Johnson MD Unavailable Unavailable Margot Johnson MD Unavailable Unavailable Margot Johnson MD Unavailable Unavailable Margot Johnson MD Unavailable Unavailable Margot Johnson MD Unavailable Unavailable Margot Johnson MD Unavailable Unavailable Margot Johnson MD Unavailable Unavailable Margot Johnson MD Unavailable Unavailable Margot Johnson MD Unavailable Unavailable Margot Johnson MD Unavailable Unavailable Margot Johnson MD Unavailable Unavailable Margot Johnson MD Unavailable Unavailable Margot Johnson MD Unavailable Unavailable Margot Johnson MD Unavailable Unavailable Margot Johnson MD Unavailable Unavailable Margot Johnson MD Unavailable Unavailable Margot Johnson MD Unavailable Unavailable Margot Johnson MD Unavailable Unavailable Margot Johnson MD Unavailable Unavailable Mragot Johnson MD Unavailable Unavailable Margot Johnson MD Unavailable Unavailable Margot Johnson MD Unavailable Unavailable Margot Johnson MD Unavailable Unavailable OMID SCOTT Unavailable Unavailable Liza Kovacs SALES AND OPERATIONS TRAINEE Unavailable Unavailable Re-disclosure Warning The records that you are about to access may contain information from federally-assisted alcohol or drug abuse programs. If such information is present, then the following federally mandated warning applies: This information has been disclosed to you from records protected by federal confidentiality rules (42 CFR part 2). The federal rules prohibit you from making any further disclosure of this information unless further disclosure is expressly permitted by the written consent of the person to whom it pertains or as otherwise permitted by 42 CFR part 2. A general authorization for the release of medical or other information is NOT sufficient for this purpose. The Federal rules restrict any use of the information to criminally investigate or prosecute any alcohol or drug abuse patient.The records that you are about to access may contain highly sensitive health information, the redisclosure of which is protected by Article 27-F of the [facility] Public Health law. If you continue you may have access to information: Regarding HIV / AIDS; Provided by facilities licensed or operated by the [facility] Office of Mental Health; or Provided by the [facility] Office for People With Developmental Disabilities. If such information is present, then the following [facility] mandated warning applies: This information has been disclosed to you from confidential records which are protected by state law. State law prohibits you from making any further disclosure of this information without the specific written consent of the person to whom it pertains, or as otherwise permitted by law. Any unauthorized further disclosure in violation of state law may result in a fine or mcfp sentence or both. A general authorization for the release of medical or other information is NOT sufficient authorization for further disc losure. Allergies and Adverse Reactions Type Description Substance Reaction Status Data Source(s ) Drug allergy Tamiflu Oseltamivir Anaphylaxis Active eCW1 ([facility]) latex latex latex swelling,redness,itching Active eCW1 ([facility]) ACEI ACEI ACEI Anaphylaxis Active eCW1 ([facility]) seasonal seasonal seasonal Unknown Active eCW1 ([facility]) azithromycin azithromycin azithromycin Anaphylaxis Active eCW1 ( [facility]) latex latex latex swelling,redness,itching Active eCW1 ([facility]) ACEI ACEI ACEI Anaphylaxis Active eCW1 ([facility]) seasonal seasonal seasonal Unknown Active eCW1 ([facility]) azithromycin azithromycin azithromycin Anaphylaxis Active eCW1 ( [facility]) Family History Family Member Name Family Member Gender Family Member Status Date o f Status Description Data Source(s) Unknown Male Problem MEDENT ([facility]) Encounters Encounter Providers Location Date Indications Data Source(s ) Unknown [address] [facility] [address] 03/05/2020 12:00:00 AM EST eCW1 ([facility]) Unknown [address] [facility] [address] 03/02/2020 12:00:00 AM EST eCW1 ([facility]) [place] [address] [facility] [place] [address] 02/17/2020 12:00:00 AM EST eCW1 ([facility]) Outpatient [address] [facility] Y [address] 02/10/2020 12:00:00 AM EST eCW1 ([facility]) Unknown [address] [facility] [place] [address] 01/29/2020 12:00:00 AM EST eCW1 ([facility]) [place] [address] [facility] [place] [address] 01/02/2020 12:00:00 AM EST eCW1 ([facility]) Emergency Attender: Corona Diaz PAConsultant: Selwyn Johnson MD 10/02/2019 05:48:00 AM EDT - 10/02/2019 07:55:00 AM EDT [facility] Patient discharged. [place] [address] [facility] [place] [address] 09/17/2019 12:00:00 AM EDT eCW1 ([facility]) Unknown [address] [facility] [address] 09/17/2019 12:00:00 AM EDT eCW1 ([facility]) [facility] [place] [address] [facility] [place] [address] 08/26/2019 12:00:00 AM EDT eCW1 ([facility]) Outpatient Attender: JOSELITO GARCIA 08/06/2019 07:47:22 P M EDT [facility] [place] [address] [facility] [address] 07/26/2019 12:00:00 AM EDT eCW1 ([facility]) [address] [address] 07/11/2019 12:00:00 AM EDT [facility] Outpatient Referrer: OMID SCOTT 06/24/2019 05:12:00 AM EDT [facility] [address] [address] 06/13/2019 12:00:00 AM EDT eCW1 ([facility] [place]) Outpatient Attender: Cyndee MIRAMONTESADITI-SJPDonalADITI 12:00:00 AM EDT - 06/12/2019 08:02:24 AM EDT [address] [address] 06/11/2019 12:00:00 AM EDT [facility]CW1 [facility] [address] [address] 06/03/2019 12:00:00 AM EDT eCW1 [facility] [address] [address] 05/28/2019 12:00:00 AM EDT eCW1 ([facility] [address] [address] 05/28/2019 12:00:00 AM EDT eCW1 ([facility]) [address] [address] 05/27/2019 12:00:00 AM EDT eCW1 ([facility]) [address] [address] 05/27/2019 12:00:00 AM EDT eCW1 [facility] [address] [address] 05/14/2019 12:00:00 AM EDT eCW1 ([facility]) [address] [address] 05/02/2019 12:00:00 AM EST eCW1 ([facility]) Outpatient Attender: JOSELITO Kovacs [employer]PER[employer] TRAINEE FP 05/01/2019 09:01:04 P M [facility] Outpatient Attender: JOSELITO Kovacs [facility] [place] 05/01/2019 10:52:01 A M [address] [address] 04/29/2019 12:00:00 AM EST eCW1 ([facility]) [address] [place] [address] 04/24/2019 12:00:00 AM EST eCW1 ([facility]) [address] [address] 04/19/2019 12:00:00 AM EST eCW1 ([facility]) [address] [address] 04/19/2019 12:00:00 AM EST eCW1 ([facility]) [address] [address] 04/03/2019 12:00:00 AM EST eCW1 ([facility]) Outpatient Referrer: OMID SCOTT 03/25/2019 08:00:00 PM EST [facility] [address] [address] 03/19/2019 12:00:00 AM EST eCW1 ([facility]) [address] [address] 03/13/2019 12:00:00 AM EST eCW1 ([facility]) Outpatient Referrer: OMID SCOTT 03/07/2019 01:32:00 PM EST [facility] Outpatient Attender: Liza Kovacs [facility] FP 02/18/2019 10:0 8:01 AM [facility] [address] [facility] [address] 02/18/2019 12:00:00 AM EST eCW1 ([facility]) [facility] [address] [facility] [address] 01/28/2019 12:00:00 AM EST eCW1 ([facility]) [facility] [address] [facility] [address] 01/21/2019 12:00:00 AM EST eCW1 ([facility] [address] [facility] [address] 01/18/2019 12:00:00 AM EST eCW1 ([facility]) Outpatient Attender: Rosie Stanton MD 2018 08:28:00 AM EDT - 12/12/2018 09:50:00 AM EDT CATARACT/CATARACT REMOVAL [id number] [facility] CATARACT/CATARACT REMOVAL [id number] Patient discharged. Medications Medication Brand Name Start Date Product Form Dose Route Admi nistrative Instructions Pharmacy Instructions Status Indications Reaction Description Data Source(s) 1 gram 01/28/2020 12:00:00 AM EST tablet 120 TAKE ONE TABLET BY MOUTH FOUR TIMES A DAY TAKE ONE TABLET BY MOUTH FOUR TIMES A DAY SOLD: 02/14/2020 [facility] Doxycycline Monohydrate 100 MG Oral Capsule Doxycycline [place] hydrate 100 MG 12/23/2019 12:00:00 AM EDT 1.0 {capsule} active Doxycycline Monohydrate 100 MG eCW1 ([facility]) Doxycycline Monohydrate 100 MG Oral Capsule Doxycycline [place] hydrate 100 MG 12/23/2019 12:00:00 AM EDT 1.0 {capsule} active Doxycycline Monohydrate 100 MG eCW1 ([facility]) gabapentin 100 MG Oral Capsule Gabapentin 100 MG Gabapentin 100 MG 12/20/2019 12:00:00 AM EDT 1.0 {capsule} active G abapentin 100 MG eCW1 ([facility]) gabapentin 100 MG Oral Capsule Gabapentin 100 MG Gabapentin 100 MG 12/20/2019 12:00:00 AM EDT 1.0 {capsule} active G abapentin 100 MG eCW1 ([facility]) gabapentin 100 MG Oral Capsule Gabapentin 100 MG Gabapentin 100 MG 12/20/2019 12:00:00 AM EDT 1.0 {capsule} active G abapentin 100 MG eCW1 ([facility]) gabapentin 100 MG Oral Capsule Gabapentin 100 MG Gabapentin 100 MG 12/20/2019 12:00:00 AM EDT 1.0 {capsule} active G abapentin 100 MG eCW1 ([facility]) gabapentin 100 MG Oral Capsule Gabapentin 100 MG Gabapentin 100 MG 12/20/2019 12:00:00 AM EDT 1.0 {capsule} active G abapentin 100 MG eCW1 ([facility]) gabapentin 100 MG Oral Capsule Gabapentin 100 MG Gabapentin 100 MG 12/20/2019 12:00:00 AM EDT 1.0 {capsule} active G abapentin 100 MG eCW1 ([facility]) gabapentin 100 MG Oral Capsule Gabapentin 100 MG Gabapentin 100 MG 12/20/2019 12:00:00 AM EDT 1.0 {capsule} active G abapentin 100 MG eCW1 ([facility]) 20 mg 09/21/2019 12:00:00 AM EDT tablet 15 TAKE THREE TABLETS BY MOUTH EVERY DAY TAKE THREE TABLETS BY MOUTH EVERY DAY SOLD: 09/21/2019 [facility] levocetirizine dihydrochloride 5 MG Oral Tablet LEVOCETIRIZI NE DIHYDROCHLORIDE 07/26/2019 12:00:00 AM EDT tablet 30 TAKE ONE TABLE T BY MOUTH EVERY EVENING TAKE ONE TABLET BY MOUTH EVERY EVENING SOLD: 07/31/2019 [facility] 5 mg 07/26/2019 12:00:00 AM EDT tablet 30 TAKE ONE TABLET BY MOUTH EVERY DAY TAKE ONE TABLET BY MOUTH EVERY DAY SOLD: 07/31/2019 [facility] 10 mg 06/12/2019 12:00:00 AM EDT tablet 30 TAKE ONE TABLET BY MOUTH EVERY DAY TAKE ONE TABLET BY MOUTH EVERY DAY SOLD: 06/25/2019 [facility] 90 mcg/actuation 06/05/2019 12:00:00 AM EDT HFA aerosol inha ler 18 INHALE TWO PUFFS BY MOUTH EVERY 4 HOURS NEEDED INHALE TWO PUFFS BY MOUTH EVERY 4 HOURS NEEDED SOLD: 06/25/2019 [facility] 5 mg 05/29/2019 12:00:00 AM EDT tablet 30 TAKE ONE TABLET BY MOUTH EVERY DAY TAKE ONE TABLET BY MOUTH EVERY DAY SOLD: 05/31/2019 [facility] 500-50 mcg/dose 05/29/2019 12:00:00 AM EDT blister with godwin ce 60 INHALE ONE PUFF BY MOUTH EVERY 12 HOURS INHALE ONE PUFF BY MOUTH EVERY 12 HOURS SOLD: 05/31/2019 [facility] levocetirizine dihydrochloride 5 MG Oral Tablet LEVOCETIRIZI NE DIHYDROCHLORIDE 05/29/2019 12:00:00 AM EDT tablet 30 TAKE ONE TABLE T BY MOUTH EVERY EVENING TAKE ONE TABLET BY MOUTH EVERY EVENING SOLD: 05/31/2019 [facility] 40 mg 05/29/2019 12:00:00 AM EDT tablet,delayed release (DR/EC) 30 TAKE ONE TABLET BY MOUTH EVERY MORNING TAKE ONE TABLET BY MOUTH EVERY MORNING SOLD: 05/31/2019 [facility] 500-50 mcg/dose 05/29/2019 12:00:00 AM EDT blister with godwin ce 60 INHALE ONE PUFF BY MOUTH EVERY 12 HOURS INHALE ONE PUFF BY MOUTH EVERY 12 HOURS SOLD: 07/21/2019 [facility] 1,000 mcg 05/28/2019 12:00:00 AM EDT tablet 30 TAKE ONE TABLET BY MOUTH EVERY DAY TAKE ONE TABLET BY MOUTH EVERY DAY SOLD: 05/28/2019 [facility] 81 mg 05/28/2019 12:00:00 AM EDT tablet,delayed release (DR/EC) 30 TAKE ONE TABLET BY MOUTH EVERY DAY TAKE ONE TABLET BY MOUTH EVERY DAY SOLD: 05/28/2019 [facility] 55 mcg 05/28/2019 12:00:00 AM EDT aerosol,spray 16 SPRAY TWO SPRAYS IN EACH NOSTRIL EVERY MORNING SPRAY TWO SPRAYS IN EACH NOSTRIL EVERY MORNING SOLD: 05/28/2019 [facility] 400 mg (241.3 mg magnesium) 05/28/2019 12:00:00 AM EDT table t 30 TAKE ONE TABLET BY MOUTH EVERY DAY TAKE ONE TABLET BY MOUTH EVERY DAY SOLD: 05/28/2019 [facility] 0.5 mg-3 mg(2.5 mg base)/3 mL 05/28/2019 12:00:0 0 AM EDT solution for nebulization 360 TAKE 1 VIAL VIA NEBULIZER EVERY 4 HOURS NEEDED TAKE 1 VIAL VIA NEBULIZER EVERY 4 HOURS NEEDED SOLD: 05/28/2019 [facility] 50 mg 05/28/2019 12:00:00 AM EDT tablet 60 TAKE TWO TABLETS BY MOUTH EVERY DAY TAKE TWO TABLETS BY MOUTH EVERY DAY SOLD: 05/28/2019 [facility] 0.05 % 05/28/2019 12:00:00 AM EDT cream 60 APPLY TO AFFECTED AREA(S) TWO TIMES A DAY FOR 7 DAYS WITH FLARES USE EXTERNALLY APPLY TO AFFECTED AREA(S) TWO TIMES A DAY FOR 7 DAYS WITH FLARES USE EXTERNALLY SOLD: 05/28/2019 [facility] [id number] 0.3 ML Epinephrine 1 MG/ML Auto-Injector EPINEPHRI NE 05/28/2019 12:00:00 AM EDT auto-injector 2 USE DIRECTED NEEDE D USE DIRECTED NEEDED SOLD: 05/28/2019 [facility] 50 mg 05/28/2019 12:00:00 AM EDT tablet 30 TAKE ONE TABLET BY MOUTH AT BEDTIME NEEDED TAKE ONE TABLET BY MOUTH AT BEDTIME NEEDED SOLD: [facility] 25 mg 05/28/2019 12:00:00 AM EDT tablet 30 TAKE ONE TABLET BY MOUTH THREE TIMES A DAY NEEDED FOR PRURITUS TAKE ONE TABLET BY MOUTH THREE TIMES A D AY NEEDED FOR PRURITUS SOLD: 05/28/2019 [facility] 1 mg 05/28/2019 12:00:00 AM EDT tablet 30 TAKE ONE TABLET BY MOUTH EVERY DAY TAKE ONE TABLET BY MOUTH EVERY DAY SOLD: 05/28/2019 [facility] pantoprazole 40 MG Delayed Release Oral Tablet Pantopr azole Sodium 40 MG Pantoprazole Sodium 40 MG 05/27/2019 12:00:00 AM EDT 1.0 {tablet} active Pantoprazole Sodium 40 MG eCW1 ( [facility]) pantoprazole 40 MG Delayed Release Oral Tablet Pantopr azole Sodium 40 MG Pantoprazole Sodium 40 MG 05/27/2019 12:00:00 AM EDT 1.0 {tablet} active Pantoprazole Sodium 40 MG eCW1 ( [facility]) pantoprazole 40 MG Delayed Release Oral Tablet Pantopr azole Sodium 40 MG Pantoprazole Sodium 40 MG 05/27/2019 12:00:00 AM EDT active 1 tablet eCW1 ([facility]) pantoprazole 40 MG Delayed Release Oral Tablet Pantopr azole Sodium 40 MG Pantoprazole Sodium 40 MG 05/27/2019 12:00:00 AM EDT 1.0 {tablet} active Pantoprazole Sodium 40 MG eCW1 ( [facility]) pantoprazole 40 MG Delayed Release Oral Tablet Pantopr azole Sodium 40 MG Pantoprazole Sodium 40 MG 05/27/2019 12:00:00 AM EDT active 1 tablet eCW1 ([facility]) pantoprazole 40 MG Delayed Release Oral Tablet Pantopr azole Sodium 40 MG Pantoprazole Sodium 40 MG 05/27/2019 12:00:00 AM EDT 1.0 {tablet} active Pantoprazole Sodium 40 MG eCW1 ( [facility]) 40 mg 05/14/2019 12:00:00 AM EDT tablet 30 TAKE ONE TABLET BY MOUTH EVERY DAY TAKE ONE TABLET BY MOUTH EVERY DAY SOLD: 06/25/2019 [facility] 40 mg 05/14/2019 12:00:00 AM EDT tablet 30 TAKE ONE TABLET BY MOUTH EVERY DAY TAKE ONE TABLET BY MOUTH EVERY DAY SOLD: 05/14/2019 [facility] 600 mg 05/14/2019 12:00:00 AM EDT tablet extended release 12hr 60 TAKE ONE TABLET BY MOUTH EVERY 12 HOURS TAKE ONE TABLET BY MOUTH EVERY 12 HOURS SOLD: 05/14/2019 [facility] 5 mg 05/11/2019 12:00:00 AM EDT tablet extended release 24hr 30 TAKE ONE TABLET BY MOUTH EVERY DAY TAKE ONE TABLET BY MOUTH EVERY DAY SOLD: 06/25/2019 [facility] 5 mg 05/11/2019 12:00:00 AM EDT tablet extended release 24hr 30 TAKE ONE TABLET BY MOUTH EVERY DAY TAKE ONE TABLET BY MOUTH EVERY DAY SOLD: 05/14/2019 [facility] 50 mg 05/03/2019 12:00:00 AM EST tablet 30 TAKE ONE TABLET BY MOUTH AT BEDTIME NEEDED TAKE ONE TABLET BY MOUTH AT BEDTIME NEEDED SOLD: [facility] 100 mg 05/02/2019 12:00:00 AM EST tablet 30 TAKE ONE TABLET BY MOUTH EVERY DAY TAKE ONE TABLET BY MOUTH EVERY DAY SOLD: 05/06/2019 [facility] montelukast 10 MG Oral Tablet MONTELUKAST SODIUM 04/09/2019 12:0 0:00 AM EST tablet 30 TAKE ONE TABLET BY MOUTH EVERY E VENING TAKE ONE TABLET BY MOUTH EVERY EVENING SOLD: 06/25/2019 [facility] montelukast 10 MG Oral Tablet MONTELUKAST SODIUM 04/09/2019 12:0 0:00 AM EST tablet 30 TAKE ONE TABLET BY MOUTH EVERY E VENING TAKE ONE TABLET BY MOUTH EVERY EVENING SOLD: 04/10/2019 [facility] 62.5 mcg/actuation 04/08/2019 12:00:00 AM EST blister with d evice 30 INHALE ONE PUFF BY MOUTH EVERY DAY INHALE ONE PUFF BY MOUTH EVERY DAY SOLD: 07/21/2019 [facility] 62.5 mcg/actuation 04/08/2019 12:00:00 AM EST blister with d evice 30 INHALE ONE PUFF BY MOUTH EVERY DAY INHALE ONE PUFF BY MOUTH EVERY DAY SOLD: 05/23/2019 [facility] 62.5 mcg/actuation 04/08/2019 12:00:00 AM EST blister with d evice 30 INHALE ONE PUFF BY MOUTH EVERY DAY INHALE ONE PUFF BY MOUTH EVERY DAY SOLD: 04/10/2019 [facility] Nebulizer Kit/Tubing/Mouthpiece 04/03/2019 12:00:00 AM EST active [facility] ([facility], ) Albuterol 0.83 MG/ML Inhalant Solution Albuterol Sulfate 0 03/27/2019 12:00:00 AM EST active [facility] ([facility], ) Nebulizer 03/27/2019 12:00:00 AM EST active [facility] ([facility], ) 100 mg 02/16/2019 12:00:00 AM EST capsule 20 TAKE ONE CAPSULE BY MOUTH EVERY 12 HOURS TAKE ONE CAPSULE BY MOUTH EVERY 12 HOURS SOLD: 02/16/2019 [facility] 40 mg 01/19/2019 12:00:00 AM EST tablet 30 TAKE ONE TABLET BY MOUTH EVERY DAY TAKE ONE TABLET BY MOUTH EVERY DAY SOLD: 03/13/2019 [facility] 40 mg 01/19/2019 12:00:00 AM EST tablet 30 TAKE ONE TABLET BY MOUTH EVERY DAY TAKE ONE TABLET BY MOUTH EVERY DAY SOLD: 01/27/2019 [facility] 5 mg 01/19/2019 12:00:00 AM EST tablet extended release 24hr 30 TAKE ONE TABLET BY MOUTH EVERY DAY TAKE ONE TABLET BY MOUTH EVERY DAY SOLD: 03/13/2019 [facility] montelukast 10 MG Oral Tablet MONTELUKAST SODIUM 01/19/2019 12:0 0:00 AM EST tablet 30 TAKE ONE TABLET BY MOUTH EVERY E VENING TAKE ONE TABLET BY MOUTH EVERY EVENING SOLD: 03/13/2019 [facility] 10 mg 01/19/2019 12:00:00 AM EST tablet 30 TAKE ONE TABLET BY MOUTH EVERY EVENING TAKE ONE TABLET BY MOUTH EVERY EVENING SOLD: 01/27/2019 [facility] 5 mg 01/19/2019 12:00:00 AM EST tablet extended release 24hr 30 TAKE ONE TABLET BY MOUTH EVERY DAY TAKE ONE TABLET BY MOUTH EVERY DAY SOLD: 01/27/2019 [facility] levocetirizine dihydrochloride 5 MG Oral Tablet LEVOCETIRIZI NE DIHYDROCHLORIDE 12/06/2018 12:00:00 AM EDT tablet 30 TAKE ONE TABLE T BY MOUTH EVERY EVENING TAKE ONE TABLET BY MOUTH EVERY EVENING SOLD: 03/13/2019 [facility] levocetirizine dihydrochloride 5 MG Oral Tablet LEVOCETIRIZI NE DIHYDROCHLORIDE 12/06/2018 12:00:00 AM EDT tablet 30 TAKE ONE TABLE T BY MOUTH EVERY EVENING TAKE ONE TABLET BY MOUTH EVERY EVENING SOLD: 05/06/2019 [facility] levocetirizine dihydrochloride 5 MG Oral Tablet LEVOCETIRIZI NE DIHYDROCHLORIDE 12/06/2018 12:00:00 AM EDT tablet 30 TAKE ONE TABLE T BY MOUTH EVERY EVENING TAKE ONE TABLET BY MOUTH EVERY EVENING SOLD: 06/25/2019 [facility] 5 mg 12/06/2018 12:00:00 AM EDT tablet 30 TAKE ONE TABLET BY MOUTH EVERY EVENING TAKE ONE TABLET BY MOUTH EVERY EVENING SOLD: 04/10/2019 [facility] 5 mg 11/06/2018 12:00:00 AM EDT tablet 30 TAKE ONE TABLET BY MOUTH EVERY DAY TAKE ONE TABLET BY MOUTH EVERY DAY SOLD: 06/25/2019 [facility] 5 mg 11/06/2018 12:00:00 AM EDT tablet 30 TAKE ONE TABLET BY MOUTH EVERY DAY TAKE ONE TABLET BY MOUTH EVERY DAY SOLD: 04/10/2019 [facility] 5 mg 11/06/2018 12:00:00 AM EDT tablet 30 TAKE ONE TABLET BY MOUTH EVERY DAY TAKE ONE TABLET BY MOUTH EVERY DAY SOLD: 03/13/2019 [facility] 5 mg 11/06/2018 12:00:00 AM EDT tablet 30 TAKE ONE TABLET BY MOUTH EVERY DAY TAKE ONE TABLET BY MOUTH EVERY DAY SOLD: 05/06/2019 [facility] 50 mg 10/26/2018 12:00:00 AM EDT tablet 30 TAKE ONE TABLET BY MOUTH AT BEDTIME NEEDED TAKE ONE TABLET BY MOUTH AT BEDTIME NEEDED SOLD: [facility] 500-50 mcg/dose 10/25/2018 12:00:00 AM EDT blister with godwin ce 60 INHALE ONE PUFF BY MOUTH TWICE A DAY INHALE ONE PUFF BY MOUTH TWICE A DAY SOLD: 06/25/2019 [facility] 500-50 mcg/dose 10/25/2018 12:00:00 AM EDT blister with godwin ce 60 INHALE ONE PUFF BY MOUTH TWICE A DAY INHALE ONE PUFF BY MOUTH TWICE A DAY SOLD: 05/06/2019 [facility] 500-50 mcg/dose 10/25/2018 12:00:00 AM EDT blister with godwin ce 60 INHALE ONE PUFF BY MOUTH TWICE A DAY INHALE ONE PUFF BY MOUTH TWICE A DAY SOLD: 04/10/2019 [facility] 500-50 mcg/dose 10/25/2018 12:00:00 AM EDT blister with godwin ce 60 INHALE ONE PUFF BY MOUTH TWICE A DAY INHALE ONE PUFF BY MOUTH TWICE A DAY SOLD: 03/13/2019 [facility] buspirone hydrochloride 15 MG Oral Tablet BUSPIRONE HCL 09/01/2018 12:00:00 AM EDT tablet 60 TAKE ONE TABLET BY MOUTH TWI CE A DAY TAKE ONE TABLET BY MOUTH TWICE A DAY SOLD: 05/14/2019 [facility] 600 mg 08/09/2018 12:00:00 AM EDT tablet extended release 12hr 60 TAKE ONE TABLET BY MOUTH EVERY 12 HOURS TAKE ONE TABLET BY MOUTH EVERY 12 HOURS SOLD: 03/13/2019 [facility] 90 mcg/actuation 06/07/2018 12:00:00 AM EDT HFA aerosol inha ler 18 INHALE TWO PUFFS BY MOUTH EVERY 4 HOURS NEEDED INHALE TWO PUFFS BY MOUTH EVERY 4 HOURS NEEDED SOLD: 05/28/2019 [facility] 90 mcg/actuation 06/07/2018 12:00:00 AM EDT HFA aerosol inha ler 18 INHALE TWO PUFFS BY MOUTH EVERY 4 HOURS NEEDED INHALE TWO PUFFS BY MOUTH EVERY 4 HOURS NEEDED SOLD: 03/17/2019 [facility] 90 mcg/actuation 06/07/2018 12:00:00 AM EDT HFA aerosol inha ler 18 INHALE TWO PUFFS BY MOUTH EVERY 4 HOURS NEEDED INHALE TWO PUFFS BY MOUTH EVERY 4 HOURS NEEDED SOLD: 04/10/2019 [facility] 40 mg 05/23/2018 12:00:00 AM EDT tablet,delayed release (DR/EC) 30 TAKE ONE TABLET BY MOUTH EVERY DAY TAKE ONE TABLET BY MOUTH EVERY DAY SOLD: 04/10/2019 [facility] 40 mg 05/23/2018 12:00:00 AM EDT tablet,delayed release (DR/EC) 30 TAKE ONE TABLET BY MOUTH EVERY DAY TAKE ONE TABLET BY MOUTH EVERY DAY SOLD: 03/13/2019 [facility] 40 mg 05/23/2018 12:00:00 AM EDT tablet,delayed release (DR/EC) 30 TAKE ONE TABLET BY MOUTH EVERY DAY TAKE ONE TABLET BY MOUTH EVERY DAY SOLD: 05/06/2019 [facility] 62.5 mcg/actuation 05/23/2018 12:00:00 AM EDT blister with d evice 30 INHALE ONE PUFF BY MOUTH EVERY DAY INHALE ONE PUFF BY MOUTH EVERY DAY SOLD: 03/13/2019 [facility] 0.3 mg/0.3 mL 05/15/2018 12:00:00 AM EDT auto-injector 2 INJECT NEEDED DIRECTED INJECT NEEDED DIRECTED SOLD: 03/13/2019 [facility] Insurance Providers Payer name Policy type / Coverage type Policy ID Covered democrat ID Covered democrat's relationship to guzman Policy [place] Plan Information [place] [id number] SP [id number] 200 [place] [id number] S [id number] [place] [id number] SP [id number] 200 [place] [id number] SP [id number] 200 [place] -[place] [id number] 18 [id number] Managed Care [place] P [id number] S [id number] Medicaid S [id number] S [id number] [place] MEDICAID [id number] Xi [id number] [place] I [id number] Self [id number] 200 ANSI-Commercial [id number] ANSI-Medicaid [id number] [place] [id number] Self [id number] [place]FHP [place] [facility] [place] [id number] Self [id number] [place] Commercial [id number] Family Dependent [id number] ANSI-Medicaid [id number] ANSI-Commercial [id number] ANSI-Medicaid [id number] ANSI-Commercial [id number] ANSI-Medicaid [id number] ANSI-Commercial [id number] ANSI-Commercial [id number] ANSI-Medicaid [id number] ANSI-Medicaid [id number] ANSI-Commercial [id number] ANSI-Medicaid [id number] ANSI-Commercial [id number]-[id number] ANSI-Commercial [id number]-289m-[id number]-[id number] ANSI-Medicaid [id number] ANSI-Medicaid [id number] ANSI-Commercial [id number]-[id number] ANSI-Medicaid [id number] ANSI-Commercial [id number]-[id number]-9g95-8w77-[id number] ANSI-Commercial [id number]-[id number] [id number] [facility] [id number] [facility] [id number] ANSI-Commercial [id number] [facility]-Medicaid [id number] ANSI-Commercial [id number] ANSI-Commercial [id number]-[id number] ANSI-Medicaid [id number] ANSI-Commercial [id number]-[id number] [id number]-[id number] [facility]-Medicaid [id number] ANSI-Medicaid [id number] ANSI-Commercial [id number]-[id number]-[id number] 5422881m-10ax-6732-ef10-[id number] ANSI-Commercial [id number]-[id number]-y0xz-[id number] [id number]-f535-779o-d5wj-[id number] ANSI-Medicaid [id number] ANSI-Commercial [id number]-u726-12x5-[id number]-o98v-[id number] ANSI-Medicaid [id number] [facility] [id number] ANSI-Medicaid [id number] ANSI-Commercial [id number]-pjt6-56l8-[id number]-tjp4-72i6-[id number] ANSI-Commercial [id number]-o364-798z-006t-[id number]-d854-529w-950t-[id number] ANSI-Medicaid [id number] [facility] [id number] ANSI-Medicaid [id number] ANSI-Medicaid [id number] [facility] [id number]-[id number] [facility] [id number] [facility] [id number]-s795-[id number] [facility] [id number]-o7bb-454r-[id number] [facility] [id number] [facility] [id number] [facility] [id number] ANSI-Commercial [id number]-[id number]-32xi-[id number]-i321-796l-44yu-[id number] ANSI-Medicaid [id number] ANSI-Commercial [id number]-[id number] [facility] [id number] ANSI-Medicaid [id number] ANSI-Commercial [id number]-811s-d91m-991nok79k1ze [id number]-750r-k94x-[id number] ANSI-Medicaid [id number] ANSI-Commercial [id number]-[id number] [id number]-6tw0-32261kx9x7b8 ANSI-Commercial aflqs7m0-8o78-6d75-3372-[id number] kijvg2p4-6y49-3u39-3367-[id number] ANSI-Medicaid [id number] ANSI-Commercial [id number]-[id number]-51mk-[id number] 65x19882-10gb-9k1o-03jw-[id number] [facility] [id number] ANSI-Medicaid [id number] ANSI-Commercial [id number]-4r45-33r5-v246-[id number] [id number]-7g19-76h3-y992-[id number] [facility] [id number] ANSI-Commercial [id number]-j35y-4204-c2ie-[id number] 784czv73-i82v-1123-w5ep-66zj0qhw7a48 ANSI-Commercial [id number]-a50j-8luh-6123-fn8cj49z5l80 o3m3t9p8-h15v-3ybw-2748-[id number] ANSI-Medicaid [id number] ANSI-Medicaid [id number] ANSI-Commercial 81yokk55-d8js-99p9-k7oo-[id number] 79qzcd58-t2gs-85k7-n7gf-[id number] ANSI-Commercial [id number]-n09k-9g35-rc8e-[id number] [id number]-s54f-1c09-yg6j-[id number] ANSI-Medicaid [id number] [facility] [id number] ANSI-Commercial [id number]-2h58-9ygu-3988-[id number] [id number]-7r43-4gtq-3866-bdo8006p97oj ANSI-Commercial 89lu2v83-q1m2-20d4-jm5d-tl8610jw2a4t 53rz6w87-m6w8-75j8-rq3g-[id number] [facility] [id number] ANSI-Commercial [id number]-4988-2d3l-7a3u-[id number] wzi75nug-4960-8k3s-5d8j-[id number] [facility]-Medicaid [id number] ANSI-Commercial [id number]-ju6q-08jz-48g7-[id number]-aa1t-[id number]-[id number] [facility] [id number] [facility] [id number] ANSI-Commercial [id number]-7o96-8awp-[id number]-1h01-1nkm-[id number] ANSI-Commercial [id number]-[id number] ANSI-Medicaid [id number] [facility] [id number] SP [id number] 200 Managed [facility] [place] UNAVAILABLE S UNAVAILABLE Medicaid S [id number] S [id number] [place] [id number] SP [id number] 200 Medicaid [facility] Part B [id number] Self [id number] [place] [id number] Self [id number] [place] [id number] SP [id number] [place] [id number] S [id number] [facility] MEDICAID PI PI EXCELLUS BCBS [id number] Xi VYA [id number] UNAVAILABLE UNAVAILA BLE MEDICAID [id number] SP [id number] SELF PAY ONLY SP1 SP SP1 Medicaid Dental P [id number] S [id number] MEDICAID W [id number] S [id number] MEDICAID W [id number] S [id number] [place] 306/806 [id number] SP [id number] [facility] [id number] [place] Commercial Self BS/W/Id#Prefix/W ALL #'S Commercial Self [place] 306/806 [id number] SP [id number] [place] PPO 302/307 [id number] [employer] BCBS P [id number] S VYA [id number] [address] [address] [place] UNAVAILABLE [id number] UNAVA ILABLE [id number] Problems, Conditions, and Diagnoses Code Display Name Description Problem Type Effective Dates Data Source(s) E78.2 [id number] Mixed hyperlipidemia Problem 02/10/2020 12:0 0:00 AM EST eCW1 ([facility]) E11.42 [id number] Peripheral sensory n europathy due to type 2 diabetes mellitus Problem 02/10/2020 12:00:00 AM EST eCW1 ([facility]) F10.10 Alcohol abuse Chronic alcohol abuse Problem 05/27/2019 12:00:00 AM EDT eCW1 ([facility]) J44.9 [id number] Stage 3 severe COPD by GOLD classificatio n Problem 05/27/2019 12:00:00 AM EDT eCW1 ([facility]) 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 Problem 05/27/2019 12:00:00 AM EDT eCW1 ([facility]) M75.41 [id number] Impingement syndrome of right shoulder Pr oblem 05/27/2019 12:00:00 AM EDT eCW1 ([facility]) F32.9 [id number] Chronic major depressive disorder Problem 05/27/2019 12:00:00 AM EDT eCW1 ([facility]) T50.905A Adverse effect of unspecifie d drugs, medicaments and biological substances, initial encounter Adverse effect of drug therapy Problem 05/27/2019 12:00:00 AM EDT eCW1 ([facility]) G62.9 Neuropathy Peripheral neuropathy Problem 05/27/2019 12: 00:00 AM EDT eCW1 ([facility]) Z12.2 [id number] Encounter for screening for lung cancer P roblem 05/27/2019 12:00:00 AM EDT eCW1 ([facility]) R73.01 134398772 IFG (impaired fasting glucose) Problem 05/27/2019 12:00:00 AM EDT eCW1 ([facility]) Z12.5 [id number] Prostate cancer screening Problem 05/27/2019 12:00:00 AM EDT eCW1 ([facility]) E53.8 [id number] B12 deficiency Problem 05/27/2019 12:00:00 A M EDT eCW1 ([facility]) Z12.11 463460859 Colon cancer screening Problem 05/27/2019 12 :00:00 AM EDT eCW1 ([facility]) K21.0 308459248 Gastroesophageal reflux disease with esop hagitis Problem 05/27/2019 12:00:00 AM EDT eCW1 ([facility]) F51.04 657753975 Psychophysiological insomnia Problem 05/27/2019 12:00:00 AM EDT eCW1 ([facility]) H10.13 712231643 Allergic conjunctivitis of both eyes Prob sheila 05/27/2019 12:00:00 AM EDT eCW1 ([facility]) J45.30 204470619 Mild persistent asthma without complicati on Problem 05/27/2019 12:00:00 AM EDT eCW1 ([facility]) N32.81 711697093 OAB (overactive bladder) Problem 05/27/2019 12:00:00 AM EDT eCW1 ([facility]) F41.1 06816492 ZELDA (generalized anxiety disorder) Proble m 05/27/2019 12:00:00 AM EDT eCW1 ([facility]) L29.9 313780201 Chronic pruritus Problem 05/27/2019 12:00:00 AM EDT eCW1 ([facility]) F17.200 65185572 Nicotine use disorder Problem 05/27/2019 12: 00:00 AM EDT eCW1 ([facility]) Z12.11 798484055 Colon cancer screening Problem 05/27/2019 12 :00:00 AM EDT eCW1 ([facility]) R73.01 165390918 IFG (impaired fasting glucose) Problem 05/27/2019 12:00:00 AM EDT eCW1 ([facility]) G62.9 Neuropathy Peripheral neuropathy Problem 05/27/2019 12: 00:00 AM EDT eCW1 ([facility]) F51.04 293976434 Psychophysiological insomnia Problem 05/27/2019 12:00:00 AM EDT eCW1 ([facility]) M75.41 033962973 Impingement syndrome of right shoulder Pr oblem 05/27/2019 12:00:00 AM EDT eCW1 ([facility]) N32.81 212702078 OAB (overactive bladder) Problem 05/27/2019 12:00:00 AM EDT eCW1 ([facility]) Z12.5 276726302 Prostate cancer screening Problem 05/27/2019 12:00:00 AM EDT eCW1 ([facility]) F41.1 61188450 ZELDA (generalized anxiety disorder) Proble m 05/27/2019 12:00:00 AM EDT eCW1 ([facility]) E53.8 275044196 B12 deficiency Problem 05/27/2019 12:00:00 A M EDT eCW1 ([facility]) K21.0 832183911 Gastroesophageal reflux disease with esop hagitis Problem 05/27/2019 12:00:00 AM EDT eCW1 ([facility]) J45.30 468440335 Mild persistent asthma without complicati on Problem 05/27/2019 12:00:00 AM EDT eCW1 ([facility]) H10.13 387683602 Allergic conjunctivitis of both eyes Prob sheila 05/27/2019 12:00:00 AM EDT eCW1 ([facility]) L29.9 520600271 Chronic pruritus Problem 05/27/2019 12:00:00 AM EDT eCW1 ([facility]) F17.200 61826923 Nicotine use disorder Problem 05/27/2019 12: 00:00 AM EDT eCW1 ([facility]) Z12.2 427074912 Encounter for screening for lung cancer P roblem 05/27/2019 12:00:00 AM EDT eCW1 ([facility]) F32.9 344262672 Chronic major depressive disorder Problem 05/27/2019 12:00:00 AM EDT eCW1 ([facility]) F10.10 Alcohol abuse Chronic alcohol abuse Problem 05/27/2019 12:00:00 AM EDT eCW1 ([facility]) T50.905A Adverse effect of unspecifie d drugs, medicaments and biological substances, initial encounter Adverse effect of drug therapy Problem 05/27/2019 12:00:00 AM EDT eCW1 ([facility]) 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 Problem 05/27/2019 12:00:00 AM EDT eCW1 ([facility]) J44.9 [id number] Stage 3 severe COPD by GOLD classificatio n Problem 05/27/2019 12:00:00 AM EDT eCW1 ([facility]) D68649 Nicotine dependence, cigarettes, uncompl icated Nicotine dependence, cigarettes, uncomplicated Diagnosis 10/02/2019 05:48:00 AM EDT [facility] I10 Essential (primary) hypertension Essential (primary) h ypertension Diagnosis 10/02/2019 05:48:00 AM EDT [facility] J441 Chronic obstructive pulmonary disease wi th (acute) exacerbation Chronic obstructive pulmonary disease with (acute) exacerbation Diagnosis 10/02/2019 05:48:00 AM EDT [facility] R0600 Dyspnea, unspecified Dyspnea, unspecified Diagnosis 10/02/2019 05:48:00 AM EDT [facility] I10 Essential (primary) hypertension Essential (primary) h ypertension Diagnosis 06/11/2019 01:08:39 PM EDT [facility] F17.200 Nicotine dependence, unspecified, uncomp licated Nicotine dependence, unspecified, uncomp Diagnosis 06/11/2019 01:08:39 PM EDT [facility] Z13.220 Encounter for screening for lipoid disor ders Encounter for screening for lipoid disor Diagnosis 06/11/2019 01:08:39 PM EDT [facility] I42.9 Cardiomyopathy, unspecified Cardiomyopathy, unspecifie d Diagnosis 06/11/2019 01:08:39 PM EDT [facility] F10.10 Alcohol abuse, uncomplicated Alcohol abuse, uncomplica michelle Diagnosis 06/11/2019 01:08:39 PM EDT [facility] R94.31 Abnormal electrocardiogram [ECG] [EKG] A bnormal electrocardiogram (ECG) (EKG) Diagnosis 06/11/2019 01:08:39 PM EDT [facility] E78.2 Mixed hyperlipidemia Mixed hyperlipidemia Diagnosis 06/11/2019 01:08:39 PM EDT [facility] Results ID Date Data Source [id number] 11/13/2019 02:22:00 PM EDT [facility] ([facility], ) Name Value Range Interpretation Code Description Data Mavis rce(s) Supporting Document(s) PDFReport Laboratory test result [facility] ([facility], ) FVC-Pred 4.60 L [facility] ([facility], ) FVC-LLN 3.71 L [facility] ([facility]) FVC-%Pred-Pre 60 L [facility] ([facility], ) FVC-Pre 2.76 L [facility] ([facility]) Fev1-Pred 3.52 L [facility] ([facility]) Fev1-Pre 1.43 L [facility] ([facility]) Fev1-LLN 2.77 L [facility] ([facility]) Fev1-%Pred-Pre 40 L [facility] ([facility], ) Fev6-Pre 2.55 L [facility] ([facility]) Fev6-%Pred-Pre 57 L [facility] ([facility]) Fev6-Pred 4.41 L [facility] ([facility], ) Fev6-LLN 3.54 L [facility] ([facility]) Uog6ewx-%Pred-Pre 67 % [facility] ([facility]) Ims7dot-Abnn 76 % [facility] ([facility]) Por4jdg-Mxt 52 % [facility] ([facility], ) Gih6qdx-Czwn 96 % MEDENT ([facility]) Sil6ifq-QTT 67 % [facility] ([facility]) Ftp0vmy-Vwn 92 % [facility] ([facility], ) Xdb1feq-%Pred-Pre 96 % [facility]ENT ([facility], ) FEFMax-Pred 9.11 L/E/sec MEDENT ([facility], ) FEFMax-Pre 4.07 L/E/sec MEDENT ([facility]) FEFMax-LLN 6.90 L/E/sec MEDENT ([facility]) FEFMax-%Pred-Pre 44 L/E/sec MEDENT ([facility]) Sfl3871-Susk 3.01 L/E/sec MEDENT ([facility]) Zst3569-CFO 1.49 L/E/sec MEDENT ([facility]) Mxp4859-Pwq 0.69 L/E/sec [facility]ENT ([facility]) Ykb4438-%Pred-Pre 23 L/E/sec [facility] ([facility]) ExpTime-Pre 6.72 sec MEDENT ([facility]) Kuc3ivu7-Lape 80 % MEDENT ([facility]) Crd0fsj2-Osc 56 % [facility] ([facility]) Nlx6txz5-%Pred-Pre 70 % [facility] ([facility]) Wwt0axb6-CCG 71 % [facility] ([facility]) ID Date Data Source [id number] 10/02/2019 05:48:00 AM EDT [facility] 1 OrderSheet [facility] Emergency Department [address] [place] [address] Phone #: ext- [phone] 10/02/2019 05:48 [id number] Sex: [facility] : 1965 Age: 54yWEIGHT:72.5 kg (S) HEIGHT:71 inches (S) BMI:22.3ALLERGIES: No Known Drug AllergyCHIEF COMPLAINT: dyspnea, COPDDIAGNOSIS: Chronic obstructive lung diseaseLAB ORDERSOrder Description Priority Entered Acknowledged InitialedCBC w Diff STAT 06:21 10/02/2019 06:27 Salena Bryant R.N. PA;Troponin-T STAT 06:10/02/2019 06:27 Salena Bryant R.N. PA;CMP STAT 06:21 10/02/2019 06:27 Salena Bryant R.N. PA;Lactic Acid STAT 06:10/02/2019 06:27 Salena Bryant R.N. PA;Venous Blood Gas STAT 06:21 10/02/2019 06:27 Salena Bryant R.N. PA;DIAGNOSTIC STUDY ORDERSOrder Description Priority Entered Acknowledged InitialedChest 2 View STAT 06:21 10/02/2019 06:27 Salena Kahn(Oxygen?(No)) Corona CORTES; Reason for Study: COPDMEDICATION/IV/DRIP/FLUID ORDERSOrder Description Priority Entered Acknowledged InitialedNS IV 500 mL 06:21 10/02/2019 Ack'd: 06:28 Salena 06:47 Salena FemiBolus: : Bolus 500 Corona Bryant R.NDonal Bryant R.NDonalmL (X1) PA;SOLU-Medrol 125 06:21 10/02/2019 Ack'd: 06:28 Salena 06:48 Salena Blairmg IV X1 Dose: 125 Corona Bryant R.NDonal Bryant R.NDonalmg (X1) PA; 2 OrderSheet [facility] Emergency Department [address] [place] [address] Phone #: ext- [phone] 10/02/2019 05:48 Patient: GORDON SERNA Sex: M : 1965 Age: 54yDuoNeb 3 mL X2 06:21 10/02/2019 Ack'd: 06:28 Salena 06:46 Salena BlairDoses: 6 mL (3 mL Corona Bryant R.N. Manny R.N.X2 Doses) PA;(After Duoneb) 06:21 10/02/2019 Ack'd: 06:28 Salena 06:50 Salena BlairAlbuterol 2.5 mg X1 Corona Bryant R.N. Manyn R.N.Dose 2.5 mg (X1) PA;Magnesium Sulfate 06:21 10/02/2019 Ack'd: 06:28 Salena 06:48 Salena Blair2 g IVPB X1 dose: 2 Corona Emily Bryant R.N. Manny R.N.gm (HIGH ALERT PA;MEDICATION, X1)levoFLOXacin PO 07:02 10/02/2019 07:11 Laura Ochoa500 mg Corona Diaz R.N. PA;GENERAL ORDERSOrder Description Priority Entered Acknowledged InitialedCardiac Monitor 06:21 10/02/2019 06:27 Salena Femi(continuous) Corona CORTES;EKG 06:21 10/02/2019 06:27 Salena Femi Corona Bryant R.N. PA;NPO 06:21 10/02/2019 06:27 Salena Femi Corona CORTES;Saline Lock 06:21 10/02/2019 06:27 Salena Femi Bryant R.N. PA;Vitals 06:21 10/02/2019 06:27 Salena Femi Corona VickNDonal CORTES;Pulse Oximetry 06:21 10/02/2019 06:27 Salena BlairContinuous Corona Bryant R.N. PA;[Electronically signed by Keiry Singh R.N. (07:55 10/02/2019)][Electronically signed by Corona Diaz (21:44 10/07/2019)][Electronically locked by Keiry Singh R.N. (07:55 10/02/2019)] Name Value Range Interpretation Code Description Data Mavis rce(s) Supporting Document(s) ID Date Data Source [id number] 10/02/2019 05:48:00 AM EDT [facility] 1 Medication Reconciliation Report [facility] Emergency Department [address] [place] [address] Phone #: ext- [phone] 10/02/2019 05:48 Patient: GORDON SERNA Sex: M : 1965 Age: 54yWeight: 72.5 kgHeight/Length: 71 in.BMI: 22.3ALLERGIES: No Known Drug AllergyThe patient's Home Medications are listed below:CONTINUE TAKING THE FOLLOWING MEDICATIONS: 4LNC at HS and PRN Advair Diskus Inhalation Albuterol Sulfate HFA Inhalation HHN DUO nebs Q4 hrs Losartan Potassium Oral Prednisone finished a couple weeks ago Pt states that he does not have a list with him. He will contact someone at his apartment and try to get the complete list Singulair OralThe source(s) of the original Home Medication information:Not obtained.The following Medications were given to the patient in the Emergency Department:Duoneb [Neb Tx] Neb TX 2 unit dose, administered: 10/02/2019 6:34:00 AMNS [IV] IV Fluids bolus 0, then 500 mL/hr, administered: 10/02/2019 6:42:00 AMSolu-Medrol [IVP] IVP 125 mg, administered: 10/02/2019 6:36:00 AMMagnesium Sulfate [IVPB] IVPB bolus 0, then 2 gm 50 mL/hr, administered: 10/02/2019 6:48:00 AM 2 Medication Reconciliation Report [facility] Emergency Department [address] [place] [address] Phone #: ext [phone] 10/02/2019 05:48 Patient: GORDON SERNA Sex: M : 1965 Age: 54yAlbuterol [Neb Tx] Neb TX 2.5 mg, administered: 10/02/2019 6:50:00 AMLevofloxacin [PO] PO 500 mg, administered: 10/02/2019 7:11:00 AMThe following Medications were prescribed to the patient:Levaquin 500 mg tablet Take 1 tablet once a day as directed for 10 days -- Dispense 10 tablet. Refills: 0.Substitution permitted.[facility] - [address] [place] [address]. .prednisone 20 mg tablet Take 3 tablet once a day -- for 3 days then 2 tabs for 3 days then 1 tab for 3days. Dispense 18 tablet. Refills: 0. Substitution permitted.[facility] [place] [address]. . -- SOPHIA Granados Name Value Range Interpretation Code Description Data Mavis rce(s) Supporting Document(s) ID Date Data Source [id number] 10/02/2019 05:48:00 AM EDT [facility] 1 Medication Administration Record [facility] Emergency Department [address] [place] [address] Phone #: ext- [phone] 10/02/2019 05:48 Patient: GORDON SERNA Sex: M : 1965 Age: 54yWeight: 72.5 kgHeight/Length: 71 inBMI: 22.3ALLERGIES: No Known Drug Allergy Date/Time Medication Administered Medication OrderedStart NS [IV] NS IV 500 mL Bolus: : Bolus 13679:42 10/02/2019 Dose: IV Fluids mL (X1)Salena Bryant R.N. Rate: 500 mL/hr---- Dispensed: 1000 mL bagStop Site: #1 left ckkkgib05:53 10/02/2019Keiry Singh R.N.Given SOLU-MEDROL [IVP] SOLU-Medrol 125 mg IV X1 Dose:06:36 10/02/2019 (METHYLPREDNISOLONE SODIUM 125 mg (X1)Salena Bryant R.N. SUCC) Dose: 125 mg IVP Site: #1 left forearmGiven DUONEB [NEB TX] DuoNeb 3 mL X2 Doses: 6 mL (306:34 10/02/2019 Dose: 2 unit dose Nebulizer Neb TX mL X2 Doses)Salena Bryant R.N.----Stop07:38 10/02/2019Keiry Singh R.N.Given ALBUTEROL [NEB TX] (After Duoneb) Albuterol 2.5 mg06:50 10/02/2019 Dose: 2.5 mg Nebulizer Neb TX X1 Dose 2.5 mg (X1)Salena Bryant R.N.----Stop07:44 10/02/2019Keiry Singh R.N.Start MAGNESIUM SULFATE [IVPB] Magnesium Sulfate 2 g IVPB X106:48 10/02/2019 Dose: 2 gm IVPB dose: 2 gm (HIGH ALERTSalena Bryant R.N. Rate: 50 mL/hr MEDICATION, X1)---- Dispensed: 50 mL bagStop Site: #1 left [id number]:54 10/02/2019Keiry Singh R.N.Given LEVOFLOXACIN [PO] levoFLOXacin PO 500 mg07:11 10/02/2019 Dose: 500 mg Tablets Laura Russ R.N. Name Value Range Interpretation Code Description Data Mavis rce(s) Supporting Document(s) ID Date Data Source [id number] 10/02/2019 05:48:00 AM EDT [facility] 1 General Instructions [facility] Emergency Department [address] [place] [address] Phone #: ext- [phone] 10/02/2019 05:48 Patient: GORDON SERNA Sex: M : 1965 Age: 54yAcute exacerbation of COPD (chronic bronchitis)INSTRUCTIONSAvoid tobacco smoke.Warnings: GENERAL WARNINGS: Return or contact your physician immediately if your conditionworsens or changes unexpectedly, if not improving as expected, or if other problems arise.SPECIFICALLY, return if you develop chest pain; or if there is worsening of the difficulty breathing.Your Current Medications: Your current home medications have been reviewed.CONTINUE TAKING THE FOLLOWING MEDICATIONS:4LNC at HS and PRN*.Advair Diskus Inhalation.Albuterol Sulfate HFA Inhalation.HHN DUO nebs Q4 hrs*.Losartan Potassium Oral.Prednisone finished a couple weeks ago*.Pt states that he does not have a list with him. He will contact someone at his apartment and try to get thecomplete list*.Singulair Oral.Prescription Medications:Levaquin 500 mg tablet Take 1 tablet once a day as directed for 10 days -- Dispense 10 tablet. Refills: 0.Substitution permitted.[facility] - [id number] [place] [address]. .prednisone 20 mg tablet Take 3 tablet once a day -- for 3 days then 2 tabs for 3 days then 1 tab for 3days. Dispense 18 tablet. Refills: 0. Substitution permitted.[facility] [place] [address]. .Follow-up:Follow up with your doctor today. Call for the next available appointment. Reason for referral: evaluationand treatment. Summary of care provided to patient.Understanding of the discharge instructions verbalized by patient. 2 General Instructions [facility] Emergency Department [address] [place] [address] Phone #: ext- [phone] 10/02/2019 05:48 Patient: GORDON SERNA Sex: M : 1965 Age: 54y ADDITIONAL INFORMATIONBronchitis, Antibiotic Treatment (Adult)Bronchitis is an infection of the air passages (bronchial tubes) in your lungs. It often occurs when youhave a cold. This illness is contagious during the first few days and is spread through the air bycoughing and sneezing, or by direct contact (touching the sick person and then touching your owneyes, nose, or mouth).Symptoms of bronchitis include cough with mucus (phlegm) and low-grade fever. Bronchitis usuallylasts 7 to 14 days. Mild cases can be treated with simple home remedies. More severe infection istreated with an antibiotic.Home care 3 General Instructions [facility] Emergency Department [address] [place] [address] Phone #: ext- [phone] 10/02/2019 05:48 Patient: GORDON SERNA Sex: M : 1965 Age: 54yFollow these guidelines when caring for yourself at home: If your symptoms are severe, rest at home for the first 2 to 3 days. When you go back to your usual activities, don't let yourself get too tired. Don't smoke. Also stay away from secondhand smoke. You may use gtwc-ebh-yajjrht medicines to control fever or pain, unless another medicine was prescribed. If you have chronic liver or kidney disease or have ever had a stomach ulcer or gastrointestinal bleeding, talk with your healthcare provider before using these medicines. Also talk to your provider if you are taking medicine to prevent blood clots. Aspirin should never be given to anyone younger than 18 who is ill with a viral infection or fever. It may cause severe liver or brain damage. Your appetite may be low, so a light diet is fine. Stay well hydrated by drinking 6 to 8 glasses of fluids per day. This includes water, soft drinks, sports drinks, juices, tea, or soup. Extra fluids will help loosen mucus in your nose and lungs. Ejxx-yyx-zykixja cough, cold, and sore-throat medicines will not shorten the length of the illness, but they may be helpful to reduce your symptoms. Don't use decongestants if you have high blood pressure. Finish all antibiotic medicine. Do this even if you are feeling better after only a few days.Follow-up careFollow up with your healthcare provider, or as advised. If you had an X-ray or ECG(electrocardiogram), a specialist will review it. You will be told of any new test results that may affectyour care.If you are age 65 or older, if you smoke, or if you have a chronic lung disease or condition that affectsyour immune system, ask your healthcare provider about getting a pneumococcal vaccine and ayearly flu shot (influenza vaccine).When to seek medical adviceCall your healthcare provider right away if any of these occur: Fever of 100.4F (38C) or higher, or as directed by your healthcare provider Coughing up more sputum Weakness, drowsiness, headache, facial pain, ear pain, or a stiff neckCall 911 4 General Instructions [facility] Emergency Department [address] [place] [address] Phone #: ext- [phone] 10/02/2019 05:48 Patient: GORDON SERNA Sex: M : 1965 Age: 54yCall 911 if any of these occur. Coughing up blood Weakness, drowsiness, headache, or stiff neck that get worse Trouble breathing, wheezing, or pain with breathing [id number] The [employer] car easily [employer]. [address] [place] [address], [place] [address]. All rights reserved. This information is not intended as asubstitute for professional medical care. Always follow your healthcare professional's instructions. You have been given the following additional information: Bronchitis, Antibiotic Treatment (Adult)(Electronically signed by SOPHIA Granados 10/07/2019 21:44) Name Value Range Interpretation Code Description Data Mavis rce(s) Supporting Document(s) ID Date Data Source [id number] 10/02/2019 05:48:00 AM EDT [facility] 1 Clinical Report - Nurses [facility] Emergency Department [address] [place] [address] Phone #: ext- [phone] 10/02/2019 05:48 Patient: GORDON SERNA Sex: M : 1965 Age: 54yTRIAGEArrived by EMS, and ([facility]). Historian: EMS and patient.Triage time: 05:45 10/02/2019.Chief Complaint: SHORTNESS OF BREATH and DIFFICULTY BREATHING.This is a recurrent problem. (few hrs, seen at [facility] multiple times in the last few weeks). ( Was at thisgirlfriends and woke short of breath and scared,). He has had a cough and wheezing. No fever, chills orchest pain.EMS Treatment [employer]:See EMS report. --05:56 10/02/19 Salena Bryant R.N.05:57 10/02/19. BP: 178/89. MAP: 118. HR: 74. RR: 20. O2 saturation: 100%. Temp: 98.3 F. Pain levelnow: 6/10. Additional comments: with cough. --06:00 10/02/19 Salena Bryant R.N.06:02 10/02/19.Treatment [employer]:(Had labs and a CT at [facility]). --06:12 10/02/19 Salena Bryant R.N.( (complains of numbness from his top of his head to his toes)). --06:13 10/02/19 Salena Bryant R.N.Acuity: LEVEL 3. --07:55 10/02/19 Keiry Singh R.N.Weight: 72.5 kg stated. Height/Length: 71 inches Per Patient. BMI: 22.3. --05:57 10/02/19 Salena Bryant R.N.MedicationsPrednisone finished a couple weeks ago. --06:01 10/02/19 Salena Bryant R.N. Advair Diskus Inhalation. Albuterol Sulfate HFA Inhalation. --06:02 10/02/19 Salena Bryant R.N. HHN DUO nebs Q4 hrs. --06:02 10/02/19 Salena Bryant R.N. Losartan Potassium Oral. --06:03 10/02/19 Salena Bryant R.N. Singulair Oral. --06:03 10/02/19 Salena Bryant R.N. Pt states that he does not have a list with him. He will contact someone at his apartment and try to get thecomplete list. --06:08 10/02/19 Salena Bryant R.N. 4LNC at and PRN. --06:09 10/02/19 Salena Bryant R.N.AllergiesNo Known Drug Allergy. --06:01 10/02/19 Salena Bryant R.N. 2 Clinical Report - Nurses [facility] Emergency Department [address] [place] [address], [place] [address] Phone #: ext- [phone] 10/02/2019 05:48 Patient: GORDON SERNA Sex: M : 1965 Age: 54y History SOCIAL HX: Current every day heavy tobacco smoker- less than 1 pack per day (down from 2 packs a day. Refused quitting smoking information today. Pt counseled that smoking is bad for his health). Regular alcohol use. (one drink today). No drug use. He has not traveled outside the [place] Infectious disease exposure: No infectious disease exposure. (Negative test for COVID a few days ago). --05:56 10/02/19 Salena Bryant R.N. PAST MEDICAL HX: Hypertension. Chronic obstructive pulmonary disease. No history of diabetes mellitus or congestive heart failure. SOCIAL HX: The patient was offered HIV testing but declined and hepatitis C testing but declined. SELF HARM ASSESSMENT: Self harm assessment was performed. The patient answered "no" to the question(s) "Do you have thoughts of harming or killing yourself?" and "Have you recently had thoughts about harming or killing others?". ABUSE ASSESSMENT: No report of abuse. FALL RISK ASSESSMENT: Fall risk assessment completed. No risk factors identified. Fall interventions initiated. Side rails up x2. Bed in low position. Brakes on. Patient visible from nurses' station. Call light in reach of patient. --06:00 10/02/19 Salena Bryant R.N.PHYSICAL FCLNWWPANR61:02 10/02/19. To room via stretcher.GENERAL / NEURO / PSYCH: Alert. Oriented X 4. Appears in no acute distress.RESPIRATORY: The patient can speak in full sentences. Cough. Wheezing present. Rhonchi present.No nasal flaring.GI / : Ab domen soft. Abdominal tenderness.SKIN: Skin is warm and dry. Generalized skin rash present. --06:12 10/02/19 Salena Bryant R.N.NURSING PROGRESS NOTES06:22 10/02/2019 Site #1 started prior to arrival by EMS via IV in the left forearm with an 18g angiocath,with aseptic technique. Blood drawn: rainbow set. --06:47 10/02/19 Salena Bryant R.N. 06:34 10/02/2019 Duoneb Neb TX Nebulizer 2 unit dose given. Given by the nurse. Allergies verified and confirmed 5 rights. Information reviewed with patient including reason for taking this medication. Verbalizes understanding. --06:46 10/02/19 Salena Bryant R.N. 06:36 10/02/2019 Solu-Medrol (methylPREDNISolone Sodium Succ) IVP 125 mg given via site #1. Allergies verified and confirmed 5 rights. IV patency established. IV site checked: no pain, redness, or swelling. IV flushed thoroughly pre- and post-medication administration. IVP given by RN. Information reviewed with patient including reason for taking this medication. Verbalizes understanding. - -06:48 10/02/19 Salena Bryant R.N. 3 Clinical Report - Nurses [facility] Emergency Department [address] [place] [address] Phone #: ext- [phone] 10/02/2019 05:48 Patient: GORDON SERNA Sex: M : 1965 Age: 54y 06:42 10/02/2019 Started bag #1 1000 mL IV Fluids NS; at 500 mL/hr via site #1 via IV pump. Allergies verified and confirmed 5 rights. IV patency established. IV site checked: no pain, redness, or swelling. IV flushed thoroughly pre- and post-medication administration. Information reviewed with patient including reason for taking this medication. Verbalizes understanding. --06:47 10/02/19 Salena Bryant R.N. 06:48 10/02/2019 Started 2 gm of Magnesium Sulfate IVPB in bag #1 50 mL; at 50 mL/hr via site #1. via IV pump. Allergies verified and confirmed 5 rights. IV patency established. IV site checked: no pain, redness, or swelling. IV flushed thoroughly pre- and post- medication administration. Information reviewed with patient including reason for taking this medication. Verbalizes understanding. --06:48 10/02/19 Salena Bryant R.N. 06:50 10/02/2019 Albuterol Neb TX Nebulizer 2.5 mg given. Given by the nurse. Allergies verified and confirmed 5 rights. Information reviewed with patient including reason for taking this medication. Verbalizes understanding. --06:50 10/02/19 Salena Bryant R.N. 07:11 10/02/2019 Levofloxacin PO Tablets 500 mg given. Allergies verified and confirmed 5 rights. Information reviewed with patient including reason for taking this medication, signs of allergic reaction and precautions. Verbalizes understanding. --07:11 10/02/19 Laura Ochoa R.N. 07:38 10/02/2019 Duoneb Neb TX discontinued due to improvement in patient condition. --07:53 10/02/19 Keiry Singh R.N. 07:44 10/02/2019 Albuterol Neb TX discontinued due to improvement in patient condition. --07:54 10/02/19 Keiry Singh R.N. 07:53 10/02/2019 IV Fluids NS via IV site #1 Discontinued: completed. Total amount infused: 500 mL. IV patency established. IV site checked: no pain, redness, or swelling. IV flushed thoroughly. --07:53 10/02/19 Keiry Singh R.N. 07:54 10/02/2019 Magnesium Sulfate IVPB via IV site #1 Discontinued: completed. IV patency established. IV site checked: no pain, redness, or swelling. IV flushed thoroughly. --07:54 10/02/19 Keiry Singh R.N.DISPOSITION / DISCHARGE No learning barriers present. Discharge instructions provided and reviewed with the patient and the patient left prior to discharge education being provided. Reviewed medication(s). Treatments reviewed. Patient verbalized understanding. Written instructions provided in Ugandan. The patient was discharged home and unaccompanied at time of discharge. He left ambulatory and via private vehicle. Patient driving. --07:53 10/02/19 Keiry Singh R.N. 07:52 10/02/19. BP: 162/90. MAP: 114. HR: 81. RR: 18. O2 saturation: 99% on room air. Temp: 98.3 F. Pain level now: 04/08. --07:53 10/02/19 Keiry Singh R.N. 07:55 10/02/2019 Site #1 removed upon discharge. Bandaid applied. --07:55 10/02/19 Keiry Singh, 4 Clinical Report - Nurses [facility] Emergency Department [address] [place] [address] Phone #: ext- [phone]/2019 05:48 Patient: GORDON SERNA Sex: M : 1965 Age: 54y R.N.Locked/Released at 10/02/2019 07:55 by Keiry Singh R.N. Name Value Range Interpretation Code Description Data Mavis rce(s) Supporting Document(s) ID Date Data Source [id number] 10/02/2019 05:48:00 AM EDT [facility] 1 Clinical Report - Physicians/Mid Levels [facility] Emergency Department [address] [place] [address] Phone #: ext- [phone] 10/02/2019 05:48 Patient: GORDON SERNA Sex: M : 1965 Age: 54y Time Seen: 06:16 10/02/2019. Arrived- By ambulance. Historian- patient and EMS personnel.HISTORY OF PRESENT ILLNESS Chief Complaint: DYSPNEA and HISTORY OF CHRONIC OBSTRUCTIVE PULMONARY DISEASE. This started today 3 hours ago; few hrs, seen at [facility] multiple times in the last few weeks). ( Was at this girlfriends and woke short of breath and scared,). He has had a cough and wheezing. No fever, chills or chest pain and is still present. It was abrupt in onset and has been constant. The dyspnea is described as moderate. The patient has had a cough and wheezing. No sputum production, fever, sweating episodes or chills. No chest pain or discomfort, calf pain, foot swelling or anxiety. No dizziness, tingling, numbness or palpitations. Similar symptoms previously. Patient has had similar symptoms several times. Recent medical care: The patient was seen recen tlashlie at another facility in the emergency department.REVIEW OF SYSTEMSThe patient has not had weight loss. No muscle aches, eye irritation, sore throat, nasal discharge or sinusdrainage. No nausea, vomiting, abdominal pain, diarrhea or black stools. No bloody stools, headache,fainting episodes, blurred vision or difficulty with urination. No excessive urination, skin rash, enlargedlymph nodes or joint pain.PAST HISTORYProblems:Hypertension.COPD - Chronic Obstructive Pulmonary Disease. Medications: 4LNC at HS and PRN. Pt states that he does not have a list with him. He will contact someone at his apartment and try to get the complete list. Singulair Oral. Losartan Potassium Oral. HHN DUO nebs Q4 hrs. Advair Diskus Inhalation. Albuterol Sulfate HFA Inhalation. Prednisone finished a couple weeks ago. Allergies: No Known Drug Allergy.SOCIAL HISTORY 2 Clinical Report - Physicians/Mid Levels [facility] Emergency Department [address] [place] [address] Phone #: ext- [phone] 10/02/2019 05:48 Patient: GORDON SERNA Sex: M : 1965 Age: 54y Heavy tobacco smoker (cigarette)- 1 pack per day. Occasional alcohol use. No drug use.PHYSICAL EXAMVital Signs: 10/02/2019 05:57 BP: 178/89. MAP: 118. HR: 74. RR: 20. O2 saturation: 100%. Temp: 98.3F. Pain level now: 610. Have been reviewed as abnormal. Hypertensive. Oxygen saturation normal.Appearance: Alert. No acute distress. Anxious.Eyes: Pupils equal, round and reactive to light. Eyes normal inspection.ENT: Ears normal. Nose normal. Pharynx normal. Uvula midline.Neck: Normal inspection. No jugular venous distention. Neck supple.CVS: Normal heart rate. Heart sounds normal.Respiratory: No respiratory distress. Decreased air movement. Wheezing present. Mild rhonchipresent bilaterally.Abdomen: Soft and nontender. No organomegaly.Back: Normal inspection.Skin: Skin warm and dry. Normal skin color. Normal skin turgor. Mild, generalized, erythematous,papular skin rash.Extremities: Extremities exhibit normal ROM. No lower extremity edema.Neuro: Oriented X 3.LABS, X-RAYS, AND EKGChest X-ray: No acute disease. (COPD). Views: PA and lateral. The X-rays were interpreted by theradiologist and contemporaneously by me. Interpretation time: 07:01 10/02/2019.Laboratory Tests: Laboratory tests have been ordered, with results reviewed and considered in themedical decision making process. CBC w Diff: (TOÑITO: 10/02/2019 06:05) ( MsgRcvd 10/02/2019 06:35) Final results Test Result Flag Units (Reference) CBC W/AUTOMATED DIFF COMPLETE BLOOD COUNT WBC 6.2 1 0/uL (4.2 - 11.0) RBC 3.29 L 10/uL (4.50 - 6.30) HEMOGLOBIN 10.3 L g/dL (14.0 - 16.0) HEMATOCRIT 31.2 L % (41.0 - 51.0) MCV 94.8 H fL (80.0 - 94.0) MCH 31.3 pg (27.0 - 34.0) MCHC 33.0 g/dL (31.0 - 36.0) RDW 15.9 H % (11.5 - 14.8) PLATELETS 207 10/uL (150 - 450) MPV 10.6 H fL (7.4 - 10.4) NEUT 66.6 % (37.0 - 80.0) LYMPH 20.1 L % (25.0 - 40.0) MONO 10.3 H % (3.0 - 8.0) EOS 2.2 % (0.0 - 7.0) BASO 0.5 % (0.0 - 2.0) %IG 0.3 H % (0.0 - 0.0) %NRBC 0.0 % (0.0 - 0.0) #NEUT 4.15 10/uL (2.00 - 6.90) #LYMPH 1.25 10/uL (0.60 - 3.40) #MONO 0.64 10/uL (0.00 - 0.90) #EOS 0.14 10/uL (0.00 - 0.70) #BASO 0.03 10/uL (0.00 - 0.20) 3 Clinical Report - Physicians/Mid Levels [facility] Emergency Department [address] [place] [address] Phone #: ext- [phone] 10/02/2019 05:48 Patient: GORDON SERNA MRN: [id number] Sex: M : 1965 Age: 54y #IG 0.02 10/uL (0.00 - 0.10) #NRBC 0.00 10/uL (0.00 - 0.00) MANUAL DIFF NOT INDICATED RBC MORPH NOT INDICATED Troponin-T: (TOÑITO: 10/02/2019 06:05) ( [facility] 10/02/2019 06:57) Final results Test Result Flag Units (Reference) TROPONIN T <0.01 NG/ML (0.00 - 0.10) TROPONIN T0.1 ng/ml Recommended as the clinical threshold value forTroponin T. Lactic Acid: (TOÑITO: 10/02/2019 06:05) ( [facility] 10[facility] Final results Test Result Flag Units (Reference) LACTIC ACID 2.8 H MMOL/L (0.2 - 2.2) Venous Blood Gas: (TOÑITO: 10/02/2019 06:05) ( MsgRcvd 10/02/2019 06:59) Final results Test Result Flag Units (Reference) pH V 7.35 (7.32 - 7.43) pCO2 V 46.7 mm/HG (38.0 - 51.0) pO2 V 31.4 mm/HG (30.0 - 55.0) HCO3 V 25.0 meq/L (22.0 - 29.0) TCO2 V 26.5 meq/L (22.0 - 29.0) BASE EXCESS -0.8 (-2.0 - 2.0) O2 SAT V 55.9 % (40.0 - 85.0).PROGRESS AND PROCEDURESCourse of Care: 07:Oct 02 2019. Evaluation after observation. (Discussed exam findings, dx and txplan.). Patient counseled in person regarding the patient's stable condition, test results, diagnosis and need for follow-up. Patient agrees with plan of care. 07:Oct 02 2019. Disposition: Discharged home in good and improved condition (07:Oct 02 2019).CLINICAL IMPRESSION Acute exacerbation of COPD (chronic bronchitis)INSTRUCTIONS Avoid tobacco smoke. Warnings: GENERAL WARNINGS: Return or contact your physician immediately if your condition worsens or changes unexpectedly, if not improving as expected, or if other problems arise. SPECIFICALLY, return if you develop chest pain; or if there is worsening of the difficulty breathing. 4 Clinical Report - Physicians/Mid Levels [facility] Emergency Department [address] [place] [address] Phone #: ext- [phone] 10/02/2019 05:48 Patient: GORDON SERNA Sex: M : 1965 Age: 54y Your Current Medications: Your current home medications have been reviewed. CONTINUE TAKING THE FOLLOWING MEDICATIONS: 4LNC at HS and PRN*. Advair Diskus Inhalation. Albuterol Sulfate HFA Inhalation. HHN DUO nebs Q4 hrs*. Losartan Potassium Oral. Prednisone finished a couple weeks ago*. Pt states that he does not have a list with him. He will contact someone at his apartment and try to get the complete list*. Singulair Oral. Prescription Medications: Levaquin 500 mg tablet Take 1 tablet once a day as directed for 10 days -- Dispense 10 tablet. Refills: 0. Substitution permitted. [facility] - [address] [facility] ; [place] [address]. . prednisone 20 mg tablet Take 3 tablet once a day -- for 3 days then 2 tabs for 3 days then 1 tab for 3 days. Dispense 18 tablet. Refills: 0. Substitution permitted. [facility] - [address] [facility] ; [place] [address]. . Follow-up: Follow up with your doctor today. Call for the next available appointment. Reason for referral: evaluation and treatment. Summary of care provided to patient. Understanding of the discharge instructions verbalized by patient.(Electronically signed by SOPHIA Granados 10/07/2019 21:44) Name Value Range Interpretation Code Description Data Mavis rce(s) Supporting Document(s) ID Date Data Source [id number] 10/02/2019 11:19:00 [place] [address] RESPIRATORY CARE REPORT ==== ---------NAME------- NUMBER SEX AGE ADMIT DISC. XRAY# F/C TYPECLEANALILIA [id number] M 54 10/02/19 10/02/19 [id number] XB2 E/R DATE OF : 1965 M/R# [id number] #: [id number] TR-03 LOCATION: [facility] [address] COMPLETE:10/02/19 0 7:02 EWW [id number] PHYSICIAN: EMILY Name Value Range Interpretation Code Description Data Mavis rce(s) Supporting Document(s) ID Date Data Source [id number] 10/02/2019 09:41:00 AM EDT [facility] [address] [place] [address] PHONE: [phone] FAX: [phone] Name .................. : KAREEM LEYVA Acct Number.................. : [id number] ROOM. ................. : TR-03 Number ................... : [id number] Stay type ............. : E/R Discharge Date......... ... : Admit Date ......... : 10/02/19 Admit Phys .................... : EMILY Date of ....... : 1965 Family Phys ................... : Phone .................. : Age ................................ : 54 Film# .................. .:[id number] Sex ................................. : M Unsigned transcriptions are preliminary reports and do not represent a medical or legal document CHEST 2 VIEWS [id number] COMPLETE:10/02/19 06:21 [id number] Reason(s): COPD TWO VIEWS CHEST, 10/02/19: CLINICAL INFORMATION: COPD. Comparison none. FINDINGS: Normal heart size. Normal pulmonary vessels. The lungs are hyperinflated, but clear. No focal osseous abnormality. No pleural effusion. IMPRESSION: Negative study without active cardiopulmonary disease. Electronically Reviewed and Signed By Param Baron MD , 10/02/19 09:41, APDevin Transcribe Initials: SSR, Transcribe Date: 10/02/19 07:06, Dictation Date: Copy for: EMILY THOMAS via fax Copy for: [address] [place] [address] REC DISCHARGED Page 1 of 1 Name Value Range Interpretation Code Description Data Mavis rce(s) Supporting Document(s) ID Date Data Source [id number] 10/02/2019 07:16:00 AM EDT [facility] Name Value Range Interpretation Code Description Data Mavis rce(s) Supporting Document(s) COMPREHENSIVE METABOLIC PANEL [facility] COMPREHENSIVE METABOLIC PANEL Sodium [Moles/volume] in Serum or Plasma 138 mEq/L 134 - 153 [facility] Potassium [Moles/volume] in Serum or Plasma 3.8 mEq/L 3.6 - 5.0 [facility] Chloride [Moles/volume] in Serum or Plasma 101 mEq/L 98 - 107 [facility] Carbon dioxide, total [Moles/volume] in Serum or Plasma 27 MEQ/L 22 - 30 [facility] Glucose [Mass/volume] in Serum or Plasma 102 MG/DL 65 - 110 [facility] BUN 5 MG/DL 7 - 21 L [facility] Creatinine [Mass/volume] in Serum or Plasma 0.4 MG/DL 0.7 - 1.5 L [facility] BUN/CREAT 13 8 - 27 [facility] Protein [Mass/volume] in Serum or Plasma 6.3 G/DL 6.3 - 8.2 [facility] Albumin [Mass/volume] in Serum or Plasma 3.8 G/DL 3.9 - 5.0 L [facility] Globulin [Mass/volume] in Serum by calculation 2.5 GM/DL 2.4 - 3.2 [facility] A/G RATIO 1.5 0.8 - 2.0 [facility] Calcium [Mass/volume] in Serum or Plasma 8.7 MG/DL 8.4 - 10.2 [facility] Bilirubin.total [Mass/volume] in Serum or Plasma <0.7 MG/DL 0.2 - 1.3 [facility] Alkaline phosphatase [Enzymatic activity/volume] in Serum or Plasma 61 U/L 38 - 126 [facility] Aspartate aminotransferase [Enzymatic activity/volume] in Serum or Plasma 22 U/L 5 - 40 [facility] Alanine aminotransferase [Enzymatic activity/volume] in Seru m or Plasma 24 U/L 7 - 56 [facility] Anion gap 3 in Serum or Plasma 10.0 mmol/L 8.0 - 16.0 [facility] AGE 54 yrs [facility] NON-AA GFR >60 mL/min [facility] ital AFR AMER GFR >60 mL/min [facility] Male GFR In terprentation 20-49 yrs >60 mL/min Normal 50-59 yrs >56 mL/min Normal 60-69 yrs >49 mL/min Normal 70-79yrs >42 mL/min Normal 80 and above >35 mL/min Normal Female GFR Interpretation 20-39 yrs >60 mL/min Normal 40-49 yrs >58 mL/min Normal 50-59 yrs >51 mL/min Normal 60-69 yrs >45 mL/min Normal 70-79 yrs >39 mL/min Normal 80 and above >32 mL/min Normal ID Date Data Source [id number] 10/02/2019 06:59:00 AM EDT [facility] Name Value Range Interpretation Code Description Data Mavis rce(s) Supporting Document(s) pH of Serum or Plasma 7.35 7.32 - 7.43 [facility] pCO2 V 46.7 mm/HG 38.0 - 51.0 [facility] pO2 V 31.4 mm/HG 30.0 - 55.0 [facility] Bicarbonate [Moles/volume] in Venous blood 25.0 meq/L 22.0 - 29.0 [facility] TCO2 V 26.5 meq/L 22.0 - 29.0 [facility] Base excess in Blood by calculation -0.8 -2.0 - 2.0 [facility] O2 SAT V 55.9 % 40.0 - 85.0 [facility] ID Date Data Source [id number] 10/02/2019 06:59:00 AM EDT [facility] Name Value Range Interpretation Code Description Data Mavis rce(s) Supporting Document(s) Lactate [Moles/volume] in Serum or Plasma 2.8 MMOL/L 0.2 - 2.2 H [facility] ID Date Data Source [id number] 10/02/2019 06:57:00 AM EDT [facility] Name Value Range Interpretation Code Description Data Mavis rce(s) Supporting Document(s) TROPONIN T <0.01 NG/ML 0.00 - 0.10 [facility] o[facility]ital TROPONIN T0.1 ng/ml Recommended as the c linical threshold value forTroponin T. ID Date Data Source [id number] 10/02/2019 06:35:00 AM EDT [facility] Name Value Range Interpretation Code Description Data Mavis rce(s) Supporting Document(s) CBC W/AUTOMATED DIFF [facility] COMPLETE BLOOD COUNT Leukocytes [#/volume] in Blood by Automated count 6.2 10^3/uL 4.2 - 1 1.0 [facility] Erythrocytes [#/volume] in Blood by Automated count 3.29 10^6/uL 4. 50 - 6.30 L [facility] Hemoglobin [Mass/volume] in Blood 10.3 g/dL 14.0 - 16.0 L [facility] Hematocrit [Volume Fraction] of Blood by Automated count 31.2 % 4 1.0 - 51.0 L [facility] Erythrocyte mean corpuscular volume [Entitic volume] by Auto mated count 94.8 fL 80.0 - 94.0 H [facility] Erythrocyte mean corpuscular hemoglobin [Entitic mass] by Automated count 31.3 pg 27.0 - 34.0 [facility] Erythrocyte mean corpuscular hemoglobin concentration [Mass/volume] by Automated count 33.0 g/dL 31.0 - 36.0 [facility] Erythrocyte distribution width [Ratio] by Automated count 15.9 % 11.5 - 14.8 H [facility] Platelets [#/volume] in Blood by Automated count 207 10^3/uL 150 - 45 0 [facility] Platelet mean volume [Entitic volume] in Blood by Automated count 10.6 fL 7.4 - 10.4 H [facility] Neutrophils/100 leukocytes in Blood by Automated count 66.6 % 37. 0 - 80.0 [facility] Lymphocytes/100 leukocytes in Blood by Manual count 20.1 % 25.0 - 40.0 L [facility] Monocytes/100 leukocytes in Blood by Automated count 10.3 % 3.0 - 8.0 H [facility] Eosinophils/100 leukocytes in Blood by Automated count 2.2 % 0.0 - 7.0 [facility] Basophils/100 leukocytes in Blood by Automated count 0.5 % 0.0 - 2.0 [facility] %IG 0.3 % 0.0 - 0.0 H [facility] %NRBC 0.0 % 0.0 - 0.0 [facility] Neutrophils [#/volume] in Blood by Automated count 4.15 10^3/uL 2.00 - 6.90 [facility] Lymphocytes [#/volume] in Blood by Automated count 1.25 10^3/uL 0.60 - 3.40 [facility] Monocytes [#/volume] in Blood by Automated count 0.64 10^3/uL 0.00 - 0.90 [facility] Eosinophils [#/volume] in Blood by Automated count 0.14 10^3/uL 0.00 - 0.70 [facility] Basophils [#/volume] in Blood by Automated count 0.03 10^3/uL 0.00 - 0.20 [facility] #IG 0.02 10^3/uL 0.00 - 0.10 [facility] #NRBC 0.00 10^3/uL 0.00 - 0.00 [facility] MANUAL DIFF NOT INDICATED [facility] RBC MORPH NOT INDICATED [facility] ID Date Data Source RBC FOLATE PROFILE 06/07/2019 12:00:00 AM EDT eCW1 ([facility]) Name Value Range Interpretation Code Description Data Mavis rce(s) Supporting Document(s) 44.5 42.0-52.0 HEMATOCRIT eCW1 ([facility]) [phone] RBC FOLATE eCW1 ([facility]) ID Date Data Source VITAMIN B1 LEVEL WHOLE BLOOD 06/07/2019 12:00:00 AM EDT eCW1 ([facility]) Name Value Range Interpretation Code Description Data Mavis rce(s) Supporting Document(s) 116.2 66.5-200.0 VITAMIN B1 LEVEL WHOLE BL OOD eCW1 ([facility]) ID Date Data Source INSULIN LEVEL 06/07/2019 12:00:00 AM EDT eCW1 ([facility]) Name Value Range Interpretation Code Description Data Mavis rce(s) Supporting Document(s) 9.7 2.6-24.9 INSULIN LEVEL eCW1 ([facility]) ID Date Data Source PSA SCREENING 06/07/2019 12:00:00 AM EDT eCW1 ([facility]) Name Value Range Interpretation Code Description Data Mavis rce(s) Supporting Document(s) 0.63 < 4.00 PSA SCREENING eCW1 ([facility]) ID Date Data Source Reticulocyte Count Sysmex 06/07/2019 12:00:00 AM EDT eCW1 ([facility]) Name Value Range Interpretation Code Description Data Mavis rce(s) Supporting Document(s) 0.9 0.5-1.5 RETICULOCYTE % eCW1 ([facility]) ID Date Data Source VITAMIN B12 LEVEL 06/07/2019 12:00:00 AM EDT eCW1 ([facility]) Name Value Range Interpretation Code Description Data Mavis rce(s) Supporting Document(s) [id number] VITAMIN B12 LEVEL eCW1 ([facility]) ID Date Data Source MAGNESIUM LEVEL 06/07/2019 12:00:00 AM EDT eCW1 ([facility]) Name Value Range Interpretation Code Description Data Mavis rce(s) Supporting Document(s) 2.1 1.8-2.4 MAGNESIUM LEVEL eCW1 ([facility]) ID Date Data Source FREE T4 & TSH PANEL 06/07/2019 12:00:00 AM EDT eCW1 ([facility]) Name Value Range Interpretation Code Description Data Mavis rce(s) Supporting Document(s) 0.942 0.358-3.740 THYROID STIMULATING HORM ONE eCW1 ([facility]) 1.07 0.76-1.46 FREE T4 eCW1 ([facility]) ID Date Data Source LIPID PANEL (CARDIAC RISK) 06/07/2019 12:00:00 AM EDT eCW1 ( [facility]) Name Value Range Interpretation Code Description Data Mavis rce(s) Supporting Document(s) Triglyceride [Mass/volume] in Serum or Plasma by calculation 84 <150 TRIGLYCERIDES LEVEL eCW1 ([facility]) Cholesterol [Moles/volume] in Serum or Plasma 208 <200 CHOLESTEROL LEVEL eCW1 ([facility]) Cholesterol in LDL [Mass/volume] in Serum or Plasma by calculation 91 <100 LDL CHOLESTEROL eCW1 ([facility]) 108 NON-HDL-C eCW1 ([facility]) Cholesterol in HDL [Moles/volume] in Serum or Plasma 100 >40 HDL CHOLESTEROL eCW1 ([facility]) 2.080 <5 CHOLESTEROL RISK RATIO eCW1 ([facility]) ID Date Data Source [id number] 06/07/2019 12:00:00 AM EDT eCW1 ([facility]) Name Value Range Interpretation Code Description Data Mavis rce(s) Supporting Document(s) Hemoglobin A1c/Hemoglobin.total in Blood 5.6 HEMOGLOBIN A1c eCW1 ([facility]) ID Date Data Source Comprehensive Metabolic Profile (CMP) 06/07/2019 12:00:00 AM EDT eCW1 ([facility]) Name Value Range Interpretation Code Description Data Mavis rce(s) Supporting Document(s) 88 70-100 GLUCOSE, FASTING eCW1 ([facility]) 6 7-18 BLOOD UREA NITROGEN eCW1 ([facility]) 0.70 0.70-1.30 CREATININE FOR GFR eCW1 ([facility]) > 60.0 >56 GLOMERULAR FILTRATION RATE eCW 1 ([facility]) 140 136-145 SODIUM LEVEL eCW1 ([facility]) 9.1 8.5-10.1 CALCIUM LEVEL eCW1 ([facility]) 30 21-32 CARBON DIOXIDE LEVEL eCW1 ([facility]) 103 98-107 CHLORIDE LEVEL eCW1 ([facility]) 3.9 3.5-5.1 POTASSIUM SERUM eCW1 ([facility]) 24 12-78 ALT/SGPT eCW1 ([facility]) 45 7-37 AST/SGOT eCW1 ([facility]) 0.3 0.2-1.0 BILIRUBIN,TOTAL eCW1 ([facility]) 92 45-117 ALKALINE PHOSPHATASE eCW1 ([facility]) 3.9 3.2-5.2 ALBUMIN eCW1 ([facility]) 1.03 1.00-1.93 ALBUMIN/GLOBULIN RATIO eCW1 ([facility]) 7.7 6.4-8.2 TOTAL PROTEIN eCW1 ([facility]) ID Date Data Source C REACTIVE PROTEIN QUANTITATIV ([facility]) 06/07/2019 12:00 :00 AM EDT eCW1 ([facility]) Name Value Range Interpretation Code Description Data Mavis rce(s) Supporting Document(s) 0.41 0.00-0.30 C REACTIVE PROTEIN QUANTI TATIV eCW1 ([facility]) ID Date Data Source CBC with Differential 06/07/2019 12:00:00 AM EDT eCW1 ([facility]) Name Value Range Interpretation Code Description Data Mavis rce(s) Supporting Document(s) 6.2 4.0-10.0 WHITE BLOOD COUNT eCW1 ([facility]) 4.83 4.30-6.10 RED BLOOD COUNT eCW1 ([facility]) 14.7 13.5-17.5 HEMOGLOBIN eCW1 ([facility]) 30.4 27.0-33.0 MEAN CORPUSCULAR HEMOGLOB IN eCW1 ([facility]) 92.1 80.0-96.0 MEAN CORPUSCULAR VOLUME e CW1 ([facility]) 44.5 42.0-52.0 HEMATOCRIT eCW1 ([facility]) 13.2 11.5-14.5 RED CELL DISTRIBUTION WID TH eCW1 ([facility]) 33.0 32.0-36.5 MEAN CORPUSCULAR HGB CONC eCW1 ([facility]) 252 150-450 PLATELET COUNT, AUTOMATED eCW1 ([facility]) 46.9 36.0-66.0 NEUTROPHILS % eCW1 ([facility]) 1.1 0.0-3.0 EOS % eCW1 ([facility]) 8.4 0.0-5.0 MONO % eCW1 ([facility]) 42.8 24.0-44.0 LYMPH % eCW1 ([facility]) 2.7 1.5-5.0 LYMPH # eCW1 ([facility]) 2.9 1.5-8.5 NEUTROPHILS # eCW1 ([facility]) 0.5 0.0-1.0 BASO % eCW1 ([facility]) 0.5 0.0-0.8 MONO # eCW1 ([facility]) 0.0 0.0-0.2 BASO # eCW1 ([facility]) 0.1 0.0-0.5 EOS # eCW1 ([facility]) ID Date Data Source AMMONIA 06/07/2019 12:00:00 AM EDT eCW1 ([facility]) Name Value Range Interpretation Code Description Data Mavis rce(s) Supporting Document(s) 19 <32 AMMONIA eCW1 ([facility]) ID Date Data Source ALPHA FETOPROTEIN TUMOR QUANT 06/07/2019 12:00:00 AM EDT eCW 1 ([facility]) Name Value Range Interpretation Code Description Data Mavis rce(s) Supporting Document(s) 1.5 <8.1 ALPHA FETOPROTEIN TUMOR Q UANT eCW1 ([facility]) Procedure Social History Code Duration Value Status Description Data Source(s ) Smoking 02/10/2020 12:00:00 AM EST Current Smoker completed Curre nt Smoker eCW1 ([facility]) Smoking 02/10/2020 12:00:00 AM EST Current Smoker completed Curre nt Smoker eCW1 ([facility]) Smoking 02/10/2020 12:00:00 AM EST Current Smoker completed Curre nt Smoker eCW1 ([facility]) Smoking 02/10/2020 12:00:00 AM EST Current Smoker completed Curre nt Smoker eCW1 ([facility]) Smoking 02/10/2020 12:00:00 AM EST Current Smoker completed Curre nt Smoker eCW1 ([facility]) Smoking 05/27/2019 12:00:00 AM EDT Current Smoker completed Curre nt Smoker eCW1 ([facility]) Smoking 05/27/2019 12:00:00 AM EDT Current Smoker completed Curre nt Smoker eCW1 ([facility]) Smoking 05/27/2019 12:00:00 AM EDT Current Smoker completed Curre nt Smoker eCW1 ([facility]) Smoking 05/27/2019 12:00:00 AM EDT Current Smoker completed Curre nt Smoker eCW1 ([facility]) Vital Signs ID Date Data Source UNK Name Value Range Interpretation Code Description Data Source(s) Diastolic blood pressure 68 mm[Hg] 68 mm[Hg] eCW1 ([facility]) Systolic blood pressure 122 mm[Hg] 122 mm[Hg] e CW1 ([facility]) Body temperature 97.9 [degF] 97.9 [degF] eCW1 ( [facility]) Respiratory rate 18 /min 18 /min eCW1 ([facility]) Heart rate 99 /min 99 /min eCW1 ([facility]) Body mass index (BMI) [Ratio] 20.92 kg/m2 20.92 kg/m2 eCW1 ([facility]) Body height 73 [in_i] 73 [in_i] eCW1 ([facility]) Body weight 158.6 [lb_av] 158.6 [lb_av] eCW1 ([facility]) Diastolic blood pressure 68 mm[Hg] 68 mm[Hg] eCW1 ([facility]) Systolic blood pressure 122 mm[Hg] 122 mm[Hg] e CW1 ([facility]) Body temperature 97.9 [degF] 97.9 [degF] eCW1 ( [facility]) Respiratory rate 18 /min 18 /min eCW1 ([facility]) Heart rate 99 /min 99 /min eCW1 ([facility]) Body mass index (BMI) [Ratio] 20.92 kg/m2 20.92 kg/m2 eCW1 ([facility]) Body height 73 [in_i] 73 [in_i] eCW1 ([facility]) Body weight 158.6 [lb_av] 158.6 [lb_av] eCW1 ([facility]) Body weight 65.035 kg 65.035 kg [facility], [facility] Body mass index (BMI) [Ratio] 21.6 kg/m2 21.6 k g/m2 [facility] ([facility], ) Body weight 143.38 [lb_av] 143.38 [lb_av] MEDEN T ([facility], ) Body height 68.25 [in_i] 68.25 [in_i] [facility], ) 5'8.25" Body temperature 98.2 [degF] 98.2 [degF] [facility] ([facility], ) Oxygen saturation in Arterial blood by Pulse oximetry 97 % 97 % [facility] ([facility], ) Heart rate 101 /min 101 /min [facility], ) Diastolic blood pressure 80 mm[Hg] 80 mm[Hg] MEDENT ([facility], ) Systolic blood pressure 138 mm[Hg] 138 mm[Hg] M EDENT ([facility], ) Diastolic blood pressure 78 mm[Hg] 78 mm[Hg] eCW1 ([facility]) Systolic blood pressure 130 mm[Hg] 130 mm[Hg] e CW1 ([facility]) Body temperature 99.1 [degF] 99.1 [degF] eCW1 ( [facility]) Respiratory rate 18 /min 18 /min eCW1 ([facility]) Heart rate 98 /min 98 /min eCW1 ([facility]) Body mass index (BMI) [Ratio] 21.95 kg/m2 21.95 kg/m2 eCW1 ([facility]) Body height 73 [in_us] 73 [in_us] eCW1 ([facility]) Body weight Measured 166.4 [lb_av] 166.4 [lb_av ] eCW1 ([facility]) Diastolic blood pressure 78 mm[Hg] 78 mm[Hg] eCW1 ([facility]) Systolic blood pressure 130 mm[Hg] 130 mm[Hg] e CW1 ([facility]) Body temperature 99.1 [degF] 99.1 [degF] eCW1 ( [facility]) Respiratory rate 18 /min 18 /min eCW1 ([facility]) Heart rate 98 /min 98 /min eCW1 ([facility]) Body mass index (BMI) [Ratio] 21.95 kg/m2 21.95 kg/m2 eCW1 ([facility]) Body height 73 [in_us] 73 [in_us] eCW1 ([facility]) Body weight Measured 166.4 [lb_av] 166.4 [lb_av ] eCW1 ([facility]) Body weight 68.494 kg 68.494 kg [facility] Body mass index (BMI) [Ratio] 22.8 kg/m2 22.8 k g/m2 [facility] ([facility], ) Body weight 151.00 [lb_av] 151.00 [lb_av] MEDEN T ([facility]) Body height 68.25 [in_i] 68.25 [in_i] [facility] ([facility]) 5'8.25" Oxygen saturation in Arterial blood by Pulse oximetry 94 % 94 % [facility] ([facility]) Heart rate 82 /min 82 /min [facility] ([facility]) Diastolic blood pressure 88 mm[Hg] 88 mm[Hg] [facility] ([facility]) Systolic blood pressure 154 mm[Hg] 154 mm[Hg] M [facility] ([facility]) Body weight 72.576 kg 72.576 kg [facility] ([facility]) Body mass index (BMI) [Ratio] 22.3 kg/m2 22.3 k g/m2 [facility] ([facility]) Body weight 160.00 [lb_av] 160.00 [lb_av] [facility] Body height 71 [in_i] 71 [in_i] [facility] ([facility]) 5'11" Diastolic blood pressure 102 mm[Hg] 102 mm[Hg] [facility] ([facility]) Systolic blood pressure 152 mm[Hg] 152 mm[Hg] [facility] ([facility]) Patient Treatment Plan of Care Planned Activity Planned Date Details Description Data Source (s) gabapentin 100 MG Oral Capsule 12/20/2019 12:00:00 AM EDT eCW1 ([facility]) gabapentin 100 MG Oral Capsule 12/20/2019 12:00:00 AM EDT eCW1 ([facility]) pantoprazole 40 MG Delayed Release Oral Tablet 05/27/2019 12:00:00 AM EDT eCW1 ([facility]) pantoprazole 40 MG Delayed Release Oral Tablet 05/27/2019 12:00:00 AM EDT eCW1 ([facility])
[2020-03-14] MEDS ORDERED: COMBIVENT RESPIMAT 100-20MCG INHALER 4GM INH PRN (07:30)
[2020-03-14 07:48] LABS: BASO % 0.6 % (0.0-1.0); EOS # 0.2 10^3/uL (0.0-0.5); EOS % 2.6 % (0.0-3.0); HEMATOCRIT 39.4 % (42.0-52.0); HEMOGLOBIN 12.5 g/dl (13.5-17.5); LYMPH # 2.6 10^3/uL (1.5-5.0); LYMPH % 39.8 % (24.0-44.0); MEAN CORPUSCULAR HEMOGLOBIN 29.8 pg (27.0-33.0); MEAN CORPUSCULAR HGB CONC 31.7 g/dl (32.0-36.5); MONO # 0.7 10^3/uL (0.0-0.8); MONO % 10.7 % (0.0-5.0); NEUTROPHILS % 46.1 % (36.0-66.0); PLATELET COUNT, AUTOMATED 216 10^3/uL (150-450); RED BLOOD COUNT 4.19 10^6/uL (4.30-6.10); WHITE BLOOD COUNT 6.5 10^3/uL (4.0-10.0)
--- OUTSIDE RECORDS SUMMARY | 2020-03-14 08:19 | CCD ---
Author Author [facility] Organization [facility] Address Unknown Phone Unavailable Care Team Providers Care [place] Machine Operator Name Role Phone Fermín, A Liza TOOL LATHE OPERATOR Unavailable Unavailable Fermín, A Liza TOOL LATHE OPERATOR Unavailable Unavailable Fermín, A Liza TOOL LATHE OPERATOR Unavailable Unavailable Fermín, A Liza TOOL LATHE OPERATOR Unavailable Unavailable Fermín, A Liza TOOL LATHE OPERATOR Unavailable Unavailable Fermín, A Liza TOOL LATHE OPERATOR Unavailable Unavailable Fermín, A Liza TOOL LATHE OPERATOR Unavailable Unavailable Fermín, A Liza TOOL LATHE OPERATOR Unavailable Unavailable Fermín, A Liza TOOL LATHE OPERATOR Unavailable Unavailable Fermín, A Liza TOOL LATHE OPERATOR Unavailable Unavailable Fermín, A Liza TOOL LATHE OPERATOR Unavailable Unavailable Fermín, A Liza TOOL LATHE OPERATOR Unavailable Unavailable Fermín, A Liza TOOL LATHE OPERATOR Unavailable Unavailable Fermín, A Liza TOOL LATHE OPERATOR Unavailable Unavailable Fermín, A Liza TOOL LATHE OPERATOR Unavailable Unavailable Fermín, A Liza TOOL LATHE OPERATOR Unavailable Unavailable Fermín, A Liza TOOL LATHE OPERATOR Unavailable Unavailable Fermín, A Liza TOOL LATHE OPERATOR Unavailable Unavailable Fermín, A Liza TOOL LATHE OPERATOR Unavailable Unavailable Fermín, A Liza TOOL LATHE OPERATOR Unavailable Unavailable Fermín, A Liza TOOL LATHE OPERATOR Unavailable Unavailable Fermín, A Liza TOOL LATHE OPERATOR Unavailable Unavailable Fermín, A Liza TOOL LATHE OPERATOR Unavailable Unavailable Fermín, A Liza TOOL LATHE OPERATOR Unavailable Unavailable Fermín, A Liza TOOL LATHE OPERATOR Unavailable Unavailable Fermín, A Liza TOOL LATHE OPERATOR Unavailable Unavailable Fermín, A Liza TOOL LATHE OPERATOR Unavailable Unavailable Rosie Stanton MD Unavailable Unavailable [...] Unavailable Arnett, L Cyndee PA Unavailable Unavailable Anrett, L Cyndee PA Unavailable Unavailable Arnett, L [...] Unavailable OMID SCOTT Unavailable Unavailable Liza Kovacs TOOL LATHE OPERATOR Unavailable Unavailable Re-disclosure Warning The records that [...] is protected by Article 27-F of the [facility] Public Health law. If you continue you may have access to information: Regarding HIV / AIDS; Provided by facilities licensed or operated by the [facility] Office of Mental Health; or Provided by the [facility] Office for People With Developmental Disabilities. If such information is present, then the following [facility] mandated warning applies: This information has been [...] law may result in a fine or senior care sentence or both. A general authorization for the release of medical or other information is NOT sufficient authorization for further disc losure. Allergies and Adverse Reactions Type Description Substance Reaction Status Data Source(s ) Drug allergy Tamiflu Oseltamivir Anaphylaxis Active eCW1 ([facility]) latex latex latex swelling,redness,itching Active eCW1 ([facility]) ACEI ACEI ACEI Anaphylaxis Active eCW1 ([facility]) seasonal seasonal seasonal Unknown Active eCW1 ([facility]) azithromycin azithromycin azithromycin Anaphylaxis Active eCW1 ( [facility]) latex latex latex swelling,redness,itching Active eCW1 ([facility]) ACEI ACEI ACEI Anaphylaxis Active eCW1 ([facility]) seasonal seasonal seasonal Unknown Active eCW1 ([facility]) azithromycin azithromycin azithromycin Anaphylaxis Active eCW1 ( [facility]) Family History Family Member Name Family Member Gender Family Member Status Date o f Status Description Data Source(s) Unknown Male Problem MEDENT ([facility]) Encounters Encounter Providers Location Date Indications Data Source(s ) [place] [address] [facility] [address] 03/05/2020 12:00:00 AM EST eCW1 ([facility]) [place] [address] [facility] [address] 03/02/2020 12:00:00 AM EST eCW1 ([facility]) Unknown [address] [place] [place] [address] 02/17/2020 12:00:00 AM EST eCW1 ([facility]) Outpatient [address] [facility] Y [address] 02/10/2020 12:00:00 AM EST eCW1 ([facility]) Unknown [address] [facility] [place] [address] 01/29/2020 12:00:00 AM EST eCW1 ([facility]) Unknown [address] [place] [address] 01/02/2020 12:00:00 AM EST eCW1 ([facility]) Emergency Attender: Corona Diaz PAConsultant: Selwyn Johnson MD 10/02/2019 05:48:00 AM EDT - 10/02/2019 07:55:00 AM EDT [facility] Patient discharged. Unknown [address] [place] [address] 09/17/2019 12:00:00 AM EDT eCW1 ([facility]) [place] [address] [facility] [address] 09/17/2019 12:00:00 AM EDT eCW1 ([facility]) [facility] Guy [address] [facility] [place] [address] 08/26/2019 12:00:00 AM EDT eCW1 ([facility]) Outpatient Attender: JOSELITO GARCIA 08/06/2019 07:47:22 P M EDT [facility] [place] [address] [facility] [address] 07/26/2019 12:00:00 AM EDT eCW1 ([facility]) [address] [address] 07/11/2019 12:00:00 AM EDT [facility] Outpatient Referrer: OMID SCOTT 06/24/2019 05:12:00 AM EDT [facility] [address] [address] 06/13/2019 12:00:00 AM EDT eCW1 ([facility]) Outpatient Attender: Cyndee MIRAMONTESADITI-SJPDonalADITI 12:00:00 AM EDT - 06/12/2019 08:02:24 AM ED[place] [address] [address] 06/11/2019 12:00:00 AM EDT [facility]CW1 [facility] [address] [address] 06/03/2019 12:00:00 AM EDT eCW1 ([facility] [address] [address] 05/28/2019 12:00:00 AM EDT eCW1 ([facility] [address] [address] 05/28/2019 12:00:00 AM EDT eCW1 ([facility]) [address] [address] 05/27/2019 12:00:00 AM EDT eCW1 ([facility]) [address] [address] 05/27/2019 12:00:00 AM EDT eCW1 ([facility] [address] [address] 05/14/2019 12:00:00 AM EDT eCW1 ([facility]) [address] [address] 05/02/2019 12:00:00 AM EST eCW1 ([facility]) Outpatient Attender: JOSELITO Kovacs TOOL LATHE OPERATOR FP 05/01/2019 09:01:04 P M [facility] Outpatient Attender: JOSELITO Kovacs [facility] FP 05/01/2019 10:52:01 A M [address] [address] 04/29/2019 12:00:00 AM EST eCW1 ([facility]) [address] [place] [address] 04/24/2019 12:00:00 AM EST eCW1 ([facility]) [address] [address] 04/19/2019 12:00:00 AM EST eCW1 ([facility]) [address] [address] 04/19/2019 12:00:00 AM EST eCW1 ([facility]) [address] [address] 04/03/2019 12:00:00 AM EST eCW1 ([facility]) Outpatient Referrer: OMID SCOTT 03/25/2019 08:00:00 PM EST [facility] [address] [address] 03/19/2019 12:00:00 AM EST eCW1 ([facility]) [address] [address] 03/13/2019 12:00:00 AM EST eCW1 ([facility]) Outpatient Referrer: OMID SCOTT 03/07/2019 01:32:00 PM EST [facility] Outpatient Attender: Liza Kovacs [facility] FP 02/18/2019 10:0 8:01 AM EST [facility] [address] [facility] [address] 02/18/2019 12:00:00 AM EST eCW1 ([facility]) [facility] [place] [address] [facility] [address] 01/28/2019 12:00:00 AM EST eCW1 [facility]) [facility] [address] [facility] [address] 01/21/2019 12:00:00 AM EST eCW1 ([facility]) [facility] [address] [facility] [address] 01/18/2019 12:00:00 AM EST eCW1 ([facility]) Outpatient Attender: Rosie Stanton MD 2018 08:28:00 AM EDT - 12/12/2018 09:50:00 AM EDT CATARACT/CATARACT REMOVAL [id number] [facility] CATARACT/CATARACT REMOVAL 13664 Patient discharged. Medications Medication Brand Name Start Date Product Form Dose Route Admi nistrative Instructions Pharmacy Instructions Status Indications Reaction Description Data Source(s) 1 gram 01/28/2020 12:00:00 AM EST tablet 120 TAKE ONE TABLET BY MOUTH FOUR TIMES A DAY TAKE ONE TABLET BY MOUTH FOUR TIMES A DAY SOLD: 02/14/2020 [facility] Doxycycline Monohydrate 100 MG Oral Capsule Doxycycline [place] hydrate 100 MG 12/23/2019 12:00:00 AM EDT 1.0 {capsule} active Doxycycline Monohydrate 100 MG eCW1 ([facility]) Doxycycline Monohydrate 100 MG Oral Capsule Doxycycline [place] hydrate 100 MG 12/23/2019 12:00:00 AM EDT 1.0 {capsule} active Doxycycline Monohydrate 100 MG eCW1 ([facility]) gabapentin 100 MG Oral Capsule Gabapentin 100 MG Gabapentin 100 MG 12/20/2019 12:00:00 AM EDT 1.0 {capsule} active G abapentin 100 MG eCW1 ([facility]) gabapentin 100 MG Oral Capsule Gabapentin 100 MG Gabapentin 100 MG 12/20/2019 12:00:00 AM EDT 1.0 {capsule} active G abapentin 100 MG eCW1 ([facility]) gabapentin 100 MG Oral Capsule Gabapentin 100 MG Gabapentin 100 MG 12/20/2019 12:00:00 AM EDT 1.0 {capsule} active G abapentin 100 MG eCW1 ([facility]) gabapentin 100 MG Oral Capsule Gabapentin 100 MG Gabapentin 100 MG 12/20/2019 12:00:00 AM EDT 1.0 {capsule} active G abapentin 100 MG eCW1 ([facility]) gabapentin 100 MG Oral Capsule Gabapentin 100 MG Gabapentin 100 MG 12/20/2019 12:00:00 AM EDT 1.0 {capsule} active G abapentin 100 MG eCW1 ([facility]) gabapentin 100 MG Oral Capsule Gabapentin 100 MG Gabapentin 100 MG 12/20/2019 12:00:00 AM EDT 1.0 {capsule} active G abapentin 100 MG eCW1 ([facility]) gabapentin 100 MG Oral Capsule Gabapentin 100 MG Gabapentin 100 MG 12/20/2019 12:00:00 AM EDT 1.0 {capsule} active G abapentin 100 MG eCW1 ([facility]) 20 mg 09/21/2019 12:00:00 AM EDT tablet [...] FLARES USE EXTERNALLY SOLD: 05/28/2019 [facility] [id number] 0.3 ML Epinephrine 1 MG/ML Auto-Injector EPINEPHRI [...] active Pantoprazole Sodium 40 MG eCW1 ( [facility]) pantoprazole 40 MG Delayed Release Oral Tablet Pantopr azole Sodium 40 MG Pantoprazole Sodium 40 MG 05/27/2019 12:00:00 AM EDT 1.0 {tablet} active Pantoprazole Sodium 40 MG eCW1 ( [facility]) pantoprazole 40 MG Delayed Release Oral Tablet Pantopr azole Sodium 40 MG Pantoprazole Sodium 40 MG 05/27/2019 12:00:00 AM EDT active 1 tablet eCW1 ([facility]) pantoprazole 40 MG Delayed Release Oral Tablet Pantopr azole Sodium 40 MG Pantoprazole Sodium 40 MG 05/27/2019 12:00:00 AM EDT 1.0 {tablet} active Pantoprazole Sodium 40 MG eCW1 ( [facility]) pantoprazole 40 MG Delayed Release Oral Tablet Pantopr azole Sodium 40 MG Pantoprazole Sodium 40 MG 05/27/2019 12:00:00 AM EDT active 1 tablet eCW1 ([facility]) pantoprazole 40 MG Delayed Release Oral Tablet Pantopr azole Sodium 40 MG Pantoprazole Sodium 40 MG 05/27/2019 12:00:00 AM EDT 1.0 {tablet} active Pantoprazole Sodium 40 MG eCW1 ( [facility]) 40 mg 05/14/2019 12:00:00 AM EDT tablet [...] Kit/Tubing/Mouthpiece 04/03/2019 12:00:00 AM EST active MEDENT ([facility], ) Albuterol 0.83 MG/ML Inhalant Solution Albuterol Sulfate 0 03/27/2019 12:00:00 AM EST active MEDENT ([facility], ) Nebulizer 03/27/2019 12:00:00 AM EST active MEDENT ([facility], ) 100 mg 02/16/2019 12:00:00 AM EST [...] BY MOUTH TWICE A DAY SOLD: 05/06/2019 [facility] 500-50 mcg/dose 10/25/2018 12:00:00 AM [...] type / Coverage type Policy ID Covered green party ID Covered green party's relationship to guzman Policy [place] Plan Information MICHOACANO [id number] SP [id number] 200 [place] [id number] S [id number] MIC[place]ANO [id number] SP [id number] 200 [place] [id number] SP [id number] 200 [place] [id number] 18 [id number] Managed Care [place] P [id number] S [id number] Medicaid S [id number] S [id number] [place] MEDICAID [id number] Xi 7 [id number] MIC[place]O I [id number] Self [id number] 200 ANSI-Commercial [id number] ANSI-Medicaid [id number] Medicare [place] Med[place] Part B [id number] Self [id number] [place] Medicaid/CHP/FHP [facility] Part B [id number] Self [id number] BS [place] Commercial [id number] Family Dependent [id number] ANSI-Medicaid [id number] ANSI-Commercial [id number] ANSI-Medicaid [id number] ANSI-Commercial [id number] ANSI-Medicaid [id number] ANSI-Commercial [id number] ANSI-Commercial [id number] ANSI-Medicaid [id number] ANSI-Medicaid [id number] ANSI-Commercial [id number] ANSI-Medicaid [id number] ANSI-Commercial [id number]-[id number] ANSI-Commercial [id number] ANSI-Medicaid [id number] ANSI-Medicaid [id number] ANSI-Commercial [id number] ANSI-Medicaid [id number] ANSI-Commercial [id number]-[id number]-[id number] ANSI-Commercial [id number] [facility] [id number] [facility] [id number] ANSI-Commercial [id number] [facility]-Medicaid [id number] ANSI-Commercial [id number]-[id number] ANSI-Commercial [id number]-[id number] [id number] ANSI-Medicaid [id number] ANSI-Commercial [id number]-8518-[id number]-5526-[id number] [facility]-Medicaid [id number] ANSI-Medicaid [id number] ANSI-Commercial [id number]-[id number]-5281-fp05-[id number] ANSI-Commercial [id number]-u852-042w-j9cr-[id number] [id number]-h9fy-[id number] ANSI-Medicaid [id number] ANSI-Commercial [id number]-[id number]-y224-41w4-f34g-[id number] ANSI-Medicaid [id number] MICHO[place]ANO [id number] 200 ANSI-Medicaid [id number] ANSI-Commercial [id number]-[id number]-muj7-90c0-[id number] ANSI-Commercial [id number]-[id number]-551y-[id number] r044q809-k864-871y-183u-[id number] ANSI-Medicaid [id number] [employer] [place] [id number] ANSI-Medicaid [id number] ANSI-Medicaid [id number] ANSI[employer] Card [place] [id number] [employer]IPPDaiMedicaid [id number] ANSI[place] Card [place] [id number] ANSI[employer] Card [place] [id number] [employer]-Medicaid [id number] [employer]-Medicaid [id number] ANSI[employer] Card [place] [id number] ANSI-Commercial [id number]-[id number]-79qn-[id number]-o599-493o-93ow-[id number] ANSI-Medicaid [id number] ANSI-Commercial [id number]-[id number] [facility] [id number] ANSI-Medicaid [id number] ANSI-Commercial [id number]-378n-f59r-[id number] [id number]-708z-d66i-[id number] ANSI-Medicaid [id number] ANSI-Commercial ue556881-6573-1o5t-4ts3-53360mm5b9l7 [id number]-[id number] ANSI-Commercial [id number]-[id number] kfmvd1a3-0o47-3g81-0975-[id number] ANSI-Medicaid [id number] ANSI-Commercial [id number]-[id number]-5w3p-[id number] [facility] [id number] ANSI-Medicaid [id number] ANSI-Commercial [id number]-o886-[id number]-2c26-48f5-[id number] [facility] [id number] ANSI-Commercial [id number]-[id number]-4744-h1aa-[id number] [id number]-f98r-3276-a6ga-[id number] ANSI-Commercial [id number]-b98u-0qph-4703-[id number] [id number]-l10g-5krh-7701-[id number] ANSI-Medicaid [id number] ANSI-Medicaid [id number] ANSI-Commercial [id number]-[id number]-07s0-e5fi-[id number] 55forf85-r0dl-64x6-e8vs-n5b639lilcf2 ANSI-Commercial [id number]-f23a-4m46-hr1l-[id number]-y51r-6r97-[id number]-[id number] ANSI-Medicaid [id number] [facility] [id number] ANSI-Commercial [id number] ANSI-Commercial [id number] [facility] [id number] ANSI-Commercial [id number] [facility]-Medicaid [id number] ANSI-Commercial [id number] [facility] [id number] [facility] [id number] ANSI-Commercial [id number] ANSI-Commercial [id number] ANSI-Medicaid [id number] [place] [id number] SP [id number] 200 Managed [employer] [place] P UNAVAILABLE S UNAVAILABLE Medicaid S [id number] S [id number] [place] [id number] SP [id number] Medicaid [facility] Part B [id number] Self [id number] [place] [id number] Self [id number] [place] [id number] SP [id number] [place] [id number] S [id number] [facility] MEDICAID PI PI EXCELLUS BCBS [id number] Xi VYA [id number] UNAVAILABLE UNAVAILA BLE MEDICAID [id number] SP [id number] SELF PAY ONLY SP1 SP SP1 Medicaid Dental P [id number] S [id number] MEDICAID W [id number] S [id number] MEDICAID W [id number] S [id number] [place] 306/806 [id number] SP [id number] [facility] [id number] BS Of [place] Commercial Self BS/W/Id#Prefix/W ALL #'S Commercial Self [place] 306/806 [id number] SP [id number] [place]BS [place] PPO 302/307 [id number] [place] BCBS P [id number] S VYA [id number] [address] [address] [place] UNAVAILABLE [id number] UNAVA ILABLE [id number] Problems, Conditions, and Diagnoses Code Display Name Description Problem Type Effective Dates Data Source(s) E78.2 [id number] Mixed hyperlipidemia Problem 02/10/2020 12:0 0:00 AM EST eCW1 ([facility]) E11.42 [id number] Peripheral sensory n europathy due to type 2 diabetes mellitus Problem 02/10/2020 12:00:00 AM EST eCW1 ([facility]) F10.10 Alcohol abuse Chronic alcohol abuse Problem 05/27/2019 12:00:00 AM EDT eCW1 ([facility]) J44.9 [id number] Stage 3 severe COPD by GOLD classificatio n Problem 05/27/2019 12:00:00 AM EDT eCW1 ([facility]) 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 Problem 05/27/2019 12:00:00 AM EDT eCW1 ([facility]) M75.41 [id number] Impingement syndrome of right shoulder Pr oblem 05/27/2019 12:00:00 AM EDT eCW1 ([facility]) F32.9 991802375 Chronic major depressive disorder Problem 05/27/2019 12:00:00 AM EDT eCW1 ([facility]) T50.905A Adverse effect of unspecifie d drugs, medicaments and biological substances, initial encounter Adverse effect of drug therapy Problem 05/27/2019 12:00:00 AM EDT eCW1 ([facility]) G62.9 Neuropathy Peripheral neuropathy Problem 05/27/2019 12: 00:00 AM EDT eCW1 ([facility]) Z12.2 761459966 Encounter for screening for lung cancer P roblem 05/27/2019 12:00:00 AM EDT eCW1 ([facility]) R73.01 671312973 IFG (impaired fasting glucose) Problem 05/27/2019 12:00:00 AM EDT eCW1 ([facility]) Z12.5 238703845 Prostate cancer screening Problem 05/27/2019 12:00:00 AM EDT eCW1 ([facility]) E53.8 773105810 B12 deficiency Problem 05/27/2019 12:00:00 A M EDT eCW1 ([facility]) Z12.11 582274438 Colon cancer screening Problem 05/27/2019 12 :00:00 AM EDT eCW1 ([facility]) K21.0 659090013 Gastroesophageal reflux disease with esop hagitis Problem 05/27/2019 12:00:00 AM EDT [facility]CW1 [facility] [facility] F51.04 [id number] Psychophysiological insomnia Problem 05/27/2019 12:00:00 AM EDT eCW1 ([facility]) H10.13 [id number] Allergic conjunctivitis of both eyes Prob sheila 05/27/2019 12:00:00 AM EDT eCW1 ([facility]) J45.30 820441900 Mild persistent asthma without complicati on Problem 05/27/2019 12:00:00 AM EDT eCW1 ([facility]) N32.81 [id number] OAB (overactive bladder) Problem 05/27/2019 12:00:00 AM EDT eCW1 ([facility]) F41.1 62210733 ZELDA (generalized anxiety disorder) Proble m 05/27/2019 12:00:00 AM EDT eCW1 ([facility]) L29.9 849230873 Chronic pruritus Problem 05/27/2019 12:00:00 AM EDT eCW1 ([facility]) F17.200 10713533 Nicotine use disorder Problem 05/27/2019 12: 00:00 AM EDT eCW1 ([facility]) Z12.11 975958692 Colon cancer screening Problem 05/27/2019 12 :00:00 AM EDT eCW1 ([facility]) R73.01 621817856 IFG (impaired fasting glucose) Problem 05/27/2019 12:00:00 AM EDT eCW1 ([facility]) G62.9 Neuropathy Peripheral neuropathy Problem 05/27/2019 12: 00:00 AM EDT eCW1 ([facility]) F51.04 049093831 Psychophysiological insomnia Problem 05/27/2019 12:00:00 AM EDT eCW1 ([facility]) M75.41 060409272 Impingement syndrome of right shoulder Pr oblem 05/27/2019 12:00:00 AM EDT eCW1 ([facility]) N32.81 999004516 OAB (overactive bladder) Problem 05/27/2019 12:00:00 AM EDT eCW1 ([facility]) Z12.5 460972874 Prostate cancer screening Problem 05/27/2019 12:00:00 AM EDT eCW1 ([facility]) F41.1 75480789 ZELDA (generalized anxiety disorder) Proble m 05/27/2019 12:00:00 AM EDT eCW1 ([facility]) E53.8 [id number] B12 deficiency Problem 05/27/2019 12:00:00 A M EDT eCW1 ([facility]) K21.0 185423556 Gastroesophageal reflux disease with esop hagitis Problem 05/27/2019 12:00:00 AM EDT eCW1 ([facility]) J45.30 150978591 Mild persistent asthma without complicati on Problem 05/27/2019 12:00:00 AM EDT eCW1 ([facility]) H10.13 811297984 Allergic conjunctivitis of both eyes Prob sheila 05/27/2019 12:00:00 AM EDT eCW1 ([facility]) L29.9 129369261 Chronic pruritus Problem 05/27/2019 12:00:00 AM EDT eCW1 ([facility]) F17.200 94330523 Nicotine use disorder Problem 05/27/2019 12: 00:00 AM EDT eCW1 ([facility]) Z12.2 964898062 Encounter for screening for lung cancer P roblem 05/27/2019 12:00:00 AM EDT eCW1 ([facility]) F32.9 258228155 Chronic major depressive disorder Problem 05/27/2019 12:00:00 AM EDT eCW1 ([facility]) F10.10 Alcohol abuse Chronic alcohol abuse Problem 05/27/2019 12:00:00 AM EDT eCW1 ([facility]) T50.905A Adverse effect of unspecifie d drugs, medicaments and biological substances, initial encounter Adverse effect of drug therapy Problem 05/27/2019 12:00:00 AM EDT eCW1 ([facility]) 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 Problem 05/27/2019 12:00:00 AM EDT eCW1 ([facility]) J44.9 [id number] Stage 3 severe COPD by GOLD classificatio n Problem 05/27/2019 12:00:00 AM EDT eCW1 ([facility]) R28889 Nicotine dependence, cigarettes, uncompl icated Nicotine dependence, cigarettes, uncomplicated Diagnosis 10/02/2019 05:48:00 AM EDT [facility] I10 Essential (primary) hypertension Essential (primary) h ypertension Diagnosis 10/02/2019 05:48:00 AM EDT [facility] J441 Chronic obstructive pulmonary disease wi th (acute) exacerbation Chronic obstructive pulmonary disease with (acute) exacerbation Diagnosis 10/02/2019 05:48:00 AM EDT [facility] R0600 Dyspnea, unspecified Dyspnea, unspecified Diagnosis 10/02/2019 05:48:00 AM EDT [facility] I10 Essential (primary) hypertension Essential (primary) h ypertension Diagnosis 06/11/2019 01:08:[address] [facility] F17.200 Nicotine dependence, unspecified, uncomp licated Nicotine dependence, unspecified, uncomp Diagnosis 06/11/2019 01:08:[address] [facility] Z13.220 Encounter for screening for lipoid disor ders Encounter for screening for lipoid disor Diagnosis 06/11/2019 01:08:[address] [facility] I42.9 Cardiomyopathy, unspecified Cardiomyopathy, unspecifie d Diagnosis 06/11/2019 01:08:[address] [facility] F10.10 Alcohol abuse, uncomplicated Alcohol abuse, uncomplica michelle Diagnosis 06/11/2019 01:08:[address] [facility] R94.31 Abnormal electrocardiogram [ECG] [EKG] A bnormal electrocardiogram (ECG) (EKG) Diagnosis 06/11/2019 01:08:[address] [facility] E78.2 Mixed hyperlipidemia Mixed hyperlipidemia Diagnosis 06/11/2019 01:08:[address] [facility] Results ID Date Data Source [id number] 11/13/2019 02:22:00 PM EDT MEDENT ([facility], ) Name Value Range Interpretation Code Description Data Mavis rce(s) Supporting Document(s) PDFReport Laboratory test result [facility] ([facility], ) FVC-Pred 4.60 L [facility] ([facility], ) FVC-LLN 3.71 L [facility] ([facility]) FVC-%Pred-Pre 60 L [facility] ([facility], ) FVC-Pre 2.76 L [facility] ([facility]) Fev1-Pred 3.52 L [facility] ([facility]) Fev1-Pre 1.43 L [facility] ([facility]) Fev1-LLN 2.77 L [facility] ([facility]) Fev1-%Pred-Pre 40 L [facility] ([facility], ) Fev6-Pre 2.55 L [facility] ([facility]) Fev6-%Pred-Pre 57 L [facility] ([facility]) Fev6-Pred 4.41 L [facility] ([facility], ) Fev6-LLN 3.54 L [facility] ([facility]) Dey1xfx-%Pred-Pre 67 % [facility] ([facility]) Ugz0krr-Tnsu 76 % [facility] ([facility]) Xmi9vli-Ghz 52 % [facility] ([facility], ) Onm6pay-Siuk 96 % [facility] ([facility]) Lrs6ryc-EQU 67 % [facility] ([facility]) Eqp9ajy-Ugc 92 % [facility] ([facility], ) Pit5cue-%Pred-Pre 96 % [facility] ([facility], ) FEFMax-Pred 9.11 L/E/sec [facility] ([facility], ) FEFMax-Pre 4.07 L/E/sec [facility] ([facility]) FEFMax-LLN 6.90 L/E/sec [facility] ([facility]) FEFMax-%Pred-Pre 44 L/E/sec [facility] ([facility]) Krm8630-Mqgb 3.01 L/E/sec [facility] ([facility]) Jfx3495-ZPQ 1.49 L/E/sec [facility] ([facility]) Bmu4596-Poy 0.69 L/E/sec [facility] ([facility]) Mnk5892-%Pred-Pre 23 L/E/sec [facility] ([facility]) ExpTime-Pre 6.72 sec [facility] ([facility]) Ikm1kjr0-Omuy 80 % [facility] ([facility]) Rqt1ewy8-Krm 56 % [facility] ([facility]) Npb3vio4-%Pred-Pre 70 % [facility] ([facility]) Nwp2rag1-FNB 71 % [facility] ([facility]) ID Date Data Source [id number] 10/02/2019 05:48:00 AM EDT [facility] 1 OrderSheet [facility] Emergency Department [address] [place] [address] Phone #: ext- [phone] 10/02/2019 05:48 [id number] Sex: M : 1965 Age: 54yWEIGHT:72.5 kg [...] R.NDonal Bryant R.NDonalmg (X1) PA; 2 OrderSheet [facility] Emergency Department [address] [place] [address] Phone #: ext- [phone] 10/02/2019 05:48 Patient: GORDON SERNA Sex: M : 1965 Age: 54yDuoNeb 3 mL X2 06:21 10/02/2019 Ack'd: 06:28 Salena 06:46 Salena BlairDoses: 6 mL (3 mL Corona Bryant R.N. Manny R.N.X2 Doses) PA;(After Duoneb) 06:21 10/02/2019 Ack'd: 06:28 Salena 06:50 Salena BlairAlbuterol 2.5 mg X1 Corona Bryant R.N. Manny R.N.Dose 2.5 mg (X1) PA;Magnesium Sulfate 06:21 [...] rce(s) Supporting Document(s) ID Date Data Source [id number] 10/02/2019 05:48:00 AM EDT [facility] 1 Medication Reconciliation Report [facility] Emergency Department [address] [place] [address] Phone #: ext- [phone] 10/02/2019 05:48 Patient: GORDON SERNA Sex: M [...] 10/02/2019 6:48:00 AM 2 Medication Reconciliation Report [facility] Emergency Department [address] [place] [address] Phone #: ext [phone] 10/02/2019 05:48 Patient: GORDON SERNA Sex: M : 1965 Age: 54yAlbuterol [Neb Tx] Neb TX 2.5 mg, administered: 10/02/2019 6:50:00 AMLevofloxacin [PO] PO 500 mg, administered: 10/02/2019 7:11:00 AMThe following Medications were prescribed to the patient:Levaquin 500 mg tablet Take 1 tablet once a day as directed for 10 days -- Dispense 10 tablet. Refills: 0.Substitution permitted.[employer] [address] - [address] [place] [address]. .prednisone 20 mg tablet Take 3 tablet once a day -- for 3 days then 2 tabs for 3 days then 1 tab for 3days. Dispense 18 tablet. Refills: 0. Substitution permitted.[employer] [address] - [address] [place] [address]. . -- SOPHIA Granados Name Value Range Interpretation Code Description Data Mavis rce(s) Supporting Document(s) ID Date Data Source [id number] 10/02/2019 05:48:00 AM EDT [facility] 1 Medication Administration Record [facility] Emergency Department [address] [place] [address] Phone #: ext- [phone] 10/02/2019 05:48 Patient: GORDON SERNA Sex: M : 1965 Age: 54yWeight: 72.5 kgHeight/Length: 71 inBMI: 22.3ALLERGIES: No Known Drug Allergy Date/Time Medication Administered Medication OrderedStart NS [IV] NS IV 500 mL Bolus: : Bolus 81351:[id number] 10/02/2019 Dose: IV Fluids mL (X1)Salena Bryant R.N. Rate: 500 mL/hr---- Dispensed: 1000 mL bagStop Site: #1 left gnylykl89:53 10/02/2019Keiry Singh R.N.Given SOLU-MEDROL [IVP] SOLU-Medrol 125 [...] Dispensed: 50 mL bagStop Site: #1 left jsxezxh39:54 10/02/2019Keiry Singh R.N.Given LEVOFLOXACIN [PO] levoFLOXacin PO 500 mg07:11 10/02/2019 Dose: 500 mg Tablets Laura Russ R.N. Name Value Range Interpretation Code Description Data Mavis rce(s) Supporting Document(s) ID Date Data Source [id number] 10/02/2019 05:48:00 AM EDT [facility] 1 General Instructions [facility] Emergency Department [address] [place] [address] Phone #: ext- [phone] 10/02/2019 05:48 Patient: GORDON SERNA Sex: M [...] days -- Dispense 10 tablet. Refills: 0.Substitution permitted.[employer] [facility] [address] [place] [address]. .prednisone 20 mg tablet Take 3 tablet once a day -- for 3 days then 2 tabs for 3 days then 1 tab for 3days. Dispense 18 tablet. Refills: 0. Substitution permitted.[employer] [address] - [address] [place] [address]. .Follow-up:Follow up with your doctor today. Call for the next available appointment. Reason for referral: evaluationand treatment. Summary of care provided to patient.Understanding of the discharge instructions verbalized by patient. 2 General Instructions [facility] Emergency Department [address] [place] [address] Phone #: ext- [phone] 10/02/2019 05:48 Patient: [...] with an antibiotic.Home care 3 General Instructions [facility] Emergency Department [address] [place] [address] Phone #: ext- [phone] 10/02/2019 05:48 Patient: GORDON SERNA Sex: M : 1965 Age: 54yFollow these guidelines when caring for yourself at home: If your symptoms are severe, rest at home for the first 2 to 3 days. When you go back to your usual activities, don't let yourself get too tired. Don't smoke. Also stay away from secondhand smoke. You may use okeo-xtt-mzaywyl medicines to control fever or pain, unless [...] loosen mucus in your nose and lungs. Xrfz-yhx-iqgkrvs cough, cold, and sore-throat medicines will not [...] a stiff neckCall 911 4 General Instructions [facility] Emergency Department [address] [place] [address] Phone #: ext- [phone] 10/02/2019 05:48 Patient: GORDON SERNA Sex: M : 1965 Age: 54yCall 911 if any of these occur. Coughing up blood Weakness, drowsiness, headache, or stiff neck that get worse Trouble breathing, wheezing, or pain with breathing [id number] [employer] [address] [place] [address], [place] [address]. All rights reserved. This information is not intended as asubstitute for professional medical care. Always follow your healthcare professional's instructions. You have been given the following additional information: Bronchitis, Antibiotic Treatment (Adult)(Electronically signed by SOPHIA Granados 10/07/2019 21:44) Name Value Range Interpretation Code Description Data Mavis rce(s) Supporting Document(s) ID Date Data Source [id number] 10/02/2019 05:48:00 AM EDT [facility] 1 Clinical Report - Nurses [facility] Emergency Department [address] [place] [address] Phone #: ext- [phone] 10/02/2019 05:48 Patient: GORDON SERNA Sex: M : 1965 Age: 54yTRIAGEArrived by EMS, and ([facility]). Historian: EMS and patient.Triage time: 05:45 10/02/2019.Chief Complaint: SHORTNESS OF BREATH and DIFFICULTY BREATHING.This is a recurrent problem. (few hrs, seen at [facility] multiple times in the last few weeks). ( Was at thisgirlfriends and woke short of breath and scared,). He has had a cough and wheezing. 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 --05:56 10/02/19 Salena Bryant R.N.05:57 10/02/19. BP: 178/89. MAP: 118. HR: 74. RR: 20. O2 saturation: 100%. Temp: 98.3 F. Pain levelnow: 6/10. Additional comments: with cough. 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 --06:12 10/02/19 Salena Bryant R.N.( (complains [...] Bryant R.N. 2 Clinical Report - Nurses [facility] Emergency Department [address] [place] [address], [place] [address] Phone #: ext- [phone] 10/02/2019 05:48 Patient: GORDON SERNA Sex: M [...] of patient. --06:00 10/02/19 Salena Bryant R.N.PHYSICAL YFLGENMNML31:02 10/02/19. To room via stretcher.GENERAL / NEURO [...] Bryant R.N. 3 Clinical Report - Nurses [facility] Emergency Department [address] [place] [address] Phone #: ext- [phone] 10/02/2019 05:48 Patient: [...] Patient verbalized understanding. Written instructions provided in Belgian. The patient was discharged home and unaccompanied [...] Keiry Singh, 4 Clinical Report - Nurses [facility] Emergency Department [address] [place] [address] Phone #: ext- [phone]/2019 05:48 Patient: GORDON SERNA Sex: M : 1965 Age: 54y R.N.Locked/Released at 10/02/2019 07:55 by Keiry Singh R.N. Name Value Range Interpretation Code Description Data Mavis rce(s) Supporting Document(s) ID Date Data Source [id number] 10/02/2019 05:48:00 AM EDT [facility] 1 Clinical Report - Physicians/Mid Levels [facility] Emergency Department [address] [place] [address] Phone #: ext- [phone] 10/02/2019 05:48 Patient: GORDON SERNA Sex: M : 1965 Age: 54y Time Seen: 06:16 10/02/2019. Arrived- By ambulance. Historian- patient and EMS personnel.HISTORY OF PRESENT ILLNESS Chief Complaint: DYSPNEA and HISTORY OF CHRONIC OBSTRUCTIVE PULMONARY DISEASE. This started today 3 hours ago; few hrs, seen at [facility] multiple times in the last few [...] HISTORY 2 Clinical Report - Physicians/Mid Levels [facility] Emergency Department [address] [place] [address] Phone #: ext- [phone] 10/02/2019 05:48 Patient: GORDON SERNA Sex: M [...] 0.20) 3 Clinical Report - Physicians/Mid Levels [facility] Emergency Department [address] [place] [address] Phone #: ext- [phone] 10/02/2019 05:48 Patient: GORDON SERNA MRN: [id number] Sex: M : 1965 Age: 54y #IG 0.02 10/uL (0.00 - 0.10) #NRBC 0.00 10/uL (0.00 - 0.00) MANUAL DIFF NOT INDICATED RBC MORPH NOT INDICATED Troponin-T: (TOÑITO: 10/02/2019 06:05) ( [facility] 10/02/2019 06:57) Final results Test Result Flag Units (Reference) TROPONIN T <0.01 NG/ML (0.00 - 0.10) TROPONIN T0.1 ng/ml Recommended as the clinical threshold value forTroponin T. Lactic Acid: (TOÑITO: 10/02/2019 06:05) ( [facility] 10/02/2019 06:59) Final results Test Result Flag [...] breathing. 4 Clinical Report - Physicians/Mid Levels [facility] Emergency Department [address] [place] [address] Phone #: ext- [phone] 10/02/2019 05:48 Patient: [...] Dispense 10 tablet. Refills: 0. Substitution permitted. [employer] [address] - [address] [facility] ; [place] [address]. . prednisone 20 mg tablet Take 3 tablet once a day -- for 3 days then 2 tabs for 3 days then 1 tab for 3 days. Dispense 18 tablet. Refills: 0. Substitution permitted. [employer] [address] - [address] [facility] ; [place] [address]. . Follow-up: Follow up with your doctor today. Call for the next available appointment. Reason for referral: evaluation and treatment. Summary of care provided to patient. Understanding of the discharge instructions verbalized by patient.(Electronically signed by SOPHIA Granados 10/07/2019 21:44) Name Value Range Interpretation Code Description Data Mavis rce(s) Supporting Document(s) ID Date Data Source [id number] 10/02/2019 11:19:00 [place] [address] RESPIRATORY CARE REPORT ==== ---------NAME------- NUMBER SEX AGE ADMIT DISC. XRAY# F/C TYPECLEANALILIA [id number] M 54 10/02/19 10/02/19 [id number] XB2 E/R DATE OF : 1965 M/R# [id number] #: [id number] TR-03 LOCATION: [facility] [address] COMPLETE:10/02/19 0 7:02 EWW 56015 PHYSICIAN: EMILY Name Value Range Interpretation Code Description Data Mavis rce(s) Supporting Document(s) ID Date Data Source [id number] 10/02/2019 09:41:00 AM EDT [facility] [address] [place] [address] PHONE: [phone] FAX: [phone] Name .................. : KAREEM LEYVA Acct Number.................. : [id number] ROOM. ................. : TR-03 Number ................... : [id number] Stay type ............. : E/R Discharge Date......... ... : Admit Date ......... : 10/02/19 Admit Phys .................... : EMILY Date of ....... : 1965 Family Phys ................... : Phone .................. : Age ................................ : 54 Film# .................. .:[id number] Sex ................................. : M Unsigned transcriptions are preliminary reports and do not represent a medical or legal document CHEST 2 VIEWS 66925 COMPLETE:10/02/19 06:21 [id number] Reason(s): COPD TWO VIEWS CHEST, 10/02/19: CLINICAL [...] for: EMILY THOMAS via fax Copy for: [address] [place] [address] REC DISCHARGED Page 1 of 1 Name Value Range Interpretation Code Description Data Mavis rce(s) Supporting Document(s) ID Date Data Source [id number] 10/02/2019 07:16:00 AM EDT [facility] Name Value Range Interpretation Code Description Data Mavis rce(s) Supporting Document(s) COMPREHENSIVE METABOLIC PANEL [facility] COMPREHENSIVE METABOLIC PANEL Sodium [Moles/volume] in Serum or Plasma 138 mEq/L 134 - 153 [facility] Potassium [Moles/volume] in Serum or Plasma 3.8 mEq/L 3.6 - 5.0 [facility] Chloride [Moles/volume] in Serum or Plasma 101 mEq/L 98 - 107 [facility] Carbon dioxide, total [Moles/volume] in Serum or Plasma 27 MEQ/L 22 - 30 [facility] Glucose [Mass/volume] in Serum or Plasma 102 MG/DL 65 - 110 [facility] BUN 5 MG/DL 7 - 21 L [facility] Creatinine [Mass/volume] in Serum or Plasma 0.4 MG/DL 0.7 - 1.5 L [facility] BUN/CREAT 13 8 - 27 [facility] Protein [Mass/volume] in Serum or Plasma 6.3 G/DL 6.3 - 8.2 [facility] Albumin [Mass/volume] in Serum or Plasma 3.8 G/DL 3.9 - 5.0 L [facility] Globulin [Mass/volume] in Serum by calculation 2.5 GM/DL 2.4 - 3.2 [facility] A/G RATIO 1.5 0.8 - 2.0 [facility] Calcium [Mass/volume] in Serum or Plasma 8.7 MG/DL 8.4 - 10.2 [facility] Bilirubin.total [Mass/volume] in Serum or Plasma <0.7 MG/DL 0.2 - 1.3 [facility] Alkaline phosphatase [Enzymatic activity/volume] in Serum or Plasma 61 U/L 38 - 126 [facility] Aspartate aminotransferase [Enzymatic activity/volume] in Serum or Plasma 22 U/L 5 - 40 [facility] Alanine aminotransferase [Enzymatic activity/volume] in Seru m or Plasma 24 U/L 7 - 56 [facility] Anion gap 3 in Serum or Plasma 10.0 mmol/L 8.0 - 16.0 [facility] AGE 54 yrs [facility] al NON-AA GFR >60 mL/min [facility] ital AFR AMER GFR >60 mL/min [facility] Ho spital Male GFR In terprentation 20-49 [...] >32 mL/min Normal ID Date Data Source [id number] 10/02/2019 06:59:00 AM EDT [facility] Name Value Range Interpretation Code Description Data Mavis rce(s) Supporting Document(s) pH of Serum or Plasma 7.35 7.32 - 7.43 [facility] pCO2 V 46.7 mm/HG 38.0 - 51.0 [facility] pO2 V 31.4 mm/HG 30.0 - 55.0 [facility] Bicarbonate [Moles/volume] in Venous blood 25.0 meq/L 22.0 - 29.0 [facility] TCO2 V 26.5 meq/L 22.0 - 29.0 [facility] Base excess in Blood by calculation -0.8 -2.0 - 2.0 [facility] O2 SAT V 55.9 % 40.0 - 85.0 [facility] ital ID Date Data Source [id number] 10/02/2019 06:59:00 AM EDT [facility] Name Value Range Interpretation Code Description Data Mavis rce(s) Supporting Document(s) Lactate [Moles/volume] in Serum or Plasma 2.8 MMOL/L 0.2 - 2.2 H [facility] ID Date Data Source [id number] 10/02/2019 06:57:00 AM EDT [facility] Name Value Range Interpretation Code Description Data Mavis rce(s) Supporting Document(s) TROPONIN T <0.01 NG/ML 0.00 - 0.10 [facility] ospital TROPONIN T0.1 ng/ml Recommended as the c linical threshold value forTroponin T. ID Date Data Source [id number] 10/02/2019 06:35:00 AM EDT [facility] Name Value Range Interpretation Code Description Data Mavis rce(s) Supporting Document(s) CBC W/AUTOMATED DIFF [facility] COMPLETE BLOOD COUNT Leukocytes [#/volume] in Blood by Automated count 6.2 10^3/uL 4.2 - 1 1.0 [facility] Erythrocytes [#/volume] in Blood by Automated count 3.29 10^6/uL 4. 50 - 6.30 L [facility] Hemoglobin [Mass/volume] in Blood 10.3 g/dL 14.0 - 16.0 L [facility] Hematocrit [Volume Fraction] of Blood by Automated count 31.2 % 4 1.0 - 51.0 L [facility] Erythrocyte mean corpuscular volume [Entitic volume] by Auto mated count 94.8 fL 80.0 - 94.0 H [facility] Erythrocyte mean corpuscular hemoglobin [Entitic mass] by Automated count 31.3 pg 27.0 - 34.0 [facility] Erythrocyte mean corpuscular hemoglobin concentration [Mass/volume] by Automated count 33.0 g/dL 31.0 - 36.0 [facility] Erythrocyte distribution width [Ratio] by Automated count 15.9 % 11.5 - 14.8 H [facility] Platelets [#/volume] in Blood by Automated count 207 10^3/uL 150 - 45 0 [facility] Platelet mean volume [Entitic volume] in Blood by Automated count 10.6 fL 7.4 - 10.4 H [facility] Neutrophils/100 leukocytes in Blood by Automated count 66.6 % 37. 0 - 80.0 [facility] Lymphocytes/100 leukocytes in Blood by Manual count 20.1 % 25.0 - 40.0 L [facility] Monocytes/100 leukocytes in Blood by Automated count 10.3 % 3.0 - 8.0 H [facility] Eosinophils/100 leukocytes in Blood by Automated count 2.2 % 0.0 - 7.0 [facility] Basophils/100 leukocytes in Blood by Automated count 0.5 % 0.0 - 2.0 [facility] %IG 0.3 % 0.0 - 0.0 H [facility] %NRBC 0.0 % 0.0 - 0.0 [facility] Neutrophils [#/volume] in Blood by Automated count 4.15 10^3/uL 2.00 - 6.90 [facility] Lymphocytes [#/volume] in Blood by Automated count 1.25 10^3/uL 0.60 - 3.40 [facility] Monocytes [#/volume] in Blood by Automated count 0.64 10^3/uL 0.00 - 0.90 [facility] Eosinophils [#/volume] in Blood by Automated count 0.14 10^3/uL 0.00 - 0.70 [facility] Basophils [#/volume] in Blood by Automated count 0.03 10^3/uL 0.00 - 0.20 [facility] #IG 0.02 10^3/uL 0.00 - 0.10 [facility] #NRBC 0.00 10^3/uL 0.00 - 0.00 [facility] MANUAL DIFF NOT INDICATED [facility] RBC MORPH NOT INDICATED [facility] ID Date Data Source RBC FOLATE PROFILE 06/07/2019 12:00:00 AM EDT eCW1 ([facility]) Name Value Range Interpretation Code Description Data Mavis rce(s) Supporting Document(s) 44.5 42.0-52.0 HEMATOCRIT eCW1 ([facility]) [phone] RBC FOLATE eCW1 ([facility]) ID Date Data Source VITAMIN B1 LEVEL WHOLE BLOOD 06/07/2019 12:00:00 AM EDT eCW1 ([facility]) Name Value Range Interpretation Code Description Data Mavis rce(s) Supporting Document(s) 116.2 66.5-200.0 VITAMIN B1 LEVEL WHOLE BL OOD eCW1 ([facility]) ID Date Data Source INSULIN LEVEL 06/07/2019 12:00:00 AM EDT eCW1 ([facility]) Name Value Range Interpretation Code Description Data Mavis rce(s) Supporting Document(s) 9.7 2.6-24.9 INSULIN LEVEL eCW1 ([facility]) ID Date Data Source PSA SCREENING 06/07/2019 12:00:00 AM EDT eCW1 ([facility]) Name Value Range Interpretation Code Description Data Mavis rce(s) Supporting Document(s) 0.63 < 4.00 PSA SCREENING eCW1 ([facility]) ID Date Data Source Reticulocyte Count Sysmex 06/07/2019 12:00:00 AM EDT eCW1 ([facility]) Name Value Range Interpretation Code Description Data Mavis rce(s) Supporting Document(s) 0.9 0.5-1.5 RETICULOCYTE % eCW1 ([facility]) ID Date Data Source VITAMIN B12 LEVEL 06/07/2019 12:00:00 AM EDT eCW1 ([facility]) Name Value Range Interpretation Code Description Data Mavis rce(s) Supporting Document(s) 146 357-590 VITAMIN B12 LEVEL eCW1 ([facility]) ID Date Data Source MAGNESIUM LEVEL 06/07/2019 12:00:00 AM EDT eCW1 ([facility]) Name Value Range Interpretation Code Description Data Mavis rce(s) Supporting Document(s) 2.1 1.8-2.4 MAGNESIUM LEVEL eCW1 ([facility]) ID Date Data Source FREE T4 & TSH PANEL 06/07/2019 12:00:00 AM EDT eCW1 ([facility]) Name Value Range Interpretation Code Description Data Mavis rce(s) Supporting Document(s) 0.942 0.358-3.740 THYROID STIMULATING HORM ONE eCW1 ([facility]) 1.07 0.76-1.46 FREE T4 eCW1 ([facility]) ID Date Data Source LIPID PANEL (CARDIAC RISK) 06/07/2019 12:00:00 AM EDT eCW1 ( [facility]) Name Value Range Interpretation Code Description Data Mavis rce(s) Supporting Document(s) Triglyceride [Mass/volume] in Serum or Plasma by calculation 84 <150 TRIGLYCERIDES LEVEL eCW1 ([facility]) Cholesterol [Moles/volume] in Serum or Plasma 208 <200 CHOLESTEROL LEVEL eCW1 ([facility]) Cholesterol in LDL [Mass/volume] in Serum or Plasma by calculation 91 <100 LDL CHOLESTEROL eCW1 ([facility]) 108 NON-HDL-C eCW1 ([facility]) Cholesterol in HDL [Moles/volume] in Serum or Plasma 100 >40 HDL CHOLESTEROL eCW1 ([facility]) 2.080 <5 CHOLESTEROL RISK RATIO eCW1 ([facility]) ID Date Data Source [id number] 06/07/2019 12:00:00 AM EDT eCW1 ([facility]) Name Value Range Interpretation Code Description Data Mavis rce(s) Supporting Document(s) Hemoglobin A1c/Hemoglobin.total in Blood 5.6 HEMOGLOBIN A1c eCW1 ([facility]) ID Date Data Source Comprehensive Metabolic Profile (CMP) 06/07/2019 12:00:00 AM EDT eCW1 ([facility]) Name Value Range Interpretation Code Description Data Mavis rce(s) Supporting Document(s) 88 70-100 GLUCOSE, FASTING eCW1 ([facility]) 6 7-18 BLOOD UREA NITROGEN eCW1 ([facility]) 0.70 0.70-1.30 CREATININE FOR GFR eCW1 ([facility]) > 60.0 >56 GLOMERULAR FILTRATION RATE eCW 1 ([facility]) 140 136-145 SODIUM LEVEL eCW1 ([facility]) 9.1 8.5-10.1 CALCIUM LEVEL eCW1 ([facility]) 30 21-32 CARBON DIOXIDE LEVEL eCW1 ([facility]) 103 98-107 CHLORIDE LEVEL eCW1 ([facility]) 3.9 3.5-5.1 POTASSIUM SERUM eCW1 ([facility]) 24 12-78 ALT/SGPT eCW1 ([facility]) 45 7-37 AST/SGOT eCW1 ([facility]) 0.3 0.2-1.0 BILIRUBIN,TOTAL eCW1 ([facility]) 92 45-117 ALKALINE PHOSPHATASE eCW1 ([facility]) 3.9 3.2-5.2 ALBUMIN eCW1 ([facility]) 1.03 1.00-1.93 ALBUMIN/GLOBULIN RATIO eCW1 ([facility]) 7.7 6.4-8.2 TOTAL PROTEIN eCW1 ([facility]) ID Date Data Source C REACTIVE PROTEIN QUANTITATIV (At [facility]) 06/07/2019 12:00 :00 AM EDT eCW1 ([facility]) Name Value Range Interpretation Code Description Data Mavis rce(s) Supporting Document(s) 0.41 0.00-0.30 C REACTIVE PROTEIN QUANTI TATIV eCW1 ([facility]) ID Date Data Source CBC with Differential 06/07/2019 12:00:00 AM EDT eCW1 ([facility]) Name Value Range Interpretation Code Description Data Mavis rce(s) Supporting Document(s) 6.2 4.0-10.0 WHITE BLOOD COUNT eCW1 ([facility]) 4.83 4.30-6.10 RED BLOOD COUNT eCW1 ([facility]) 14.7 13.5-17.5 HEMOGLOBIN eCW1 ([facility]) 30.4 27.0-33.0 MEAN CORPUSCULAR HEMOGLOB IN eCW1 ([facility]) 92.1 80.0-96.0 MEAN CORPUSCULAR VOLUME e CW1 ([facility]) 44.5 42.0-52.0 HEMATOCRIT eCW1 ([facility]) 13.2 11.5-14.5 RED CELL DISTRIBUTION WID TH eCW1 ([facility]) 33.0 32.0-36.5 MEAN CORPUSCULAR HGB CONC eCW1 ([facility]) 252 150-450 PLATELET COUNT, AUTOMATED eCW1 ([facility]) 46.9 36.0-66.0 NEUTROPHILS % eCW1 ([facility]) 1.1 0.0-3.0 EOS % eCW1 ([facility]) 8.4 0.0-5.0 MONO % eCW1 ([facility]) 42.8 24.0-44.0 LYMPH % eCW1 ([facility]) 2.7 1.5-5.0 LYMPH # eCW1 ([facility]) 2.9 1.5-8.5 NEUTROPHILS # eCW1 ([facility]) 0.5 0.0-1.0 BASO % eCW1 ([facility]) 0.5 0.0-0.8 MONO # eCW1 ([facility]) 0.0 0.0-0.2 BASO # eCW1 ([facility]) 0.1 0.0-0.5 EOS # eCW1 ([facility]) ID Date Data Source AMMONIA 06/07/2019 12:00:00 AM EDT eCW1 ([facility]) Name Value Range Interpretation Code Description Data Mavis rce(s) Supporting Document(s) 19 <32 AMMONIA eCW1 ([facility]) ID Date Data Source ALPHA FETOPROTEIN TUMOR QUANT 06/07/2019 12:00:00 AM EDT eCW 1 ([facility]) Name Value Range Interpretation Code Description Data Mavis rce(s) Supporting Document(s) 1.5 <8.1 ALPHA FETOPROTEIN TUMOR Q UANT eCW1 ([facility]) Procedure Social History Code Duration Value Status Description Data Source(s ) Smoking 02/10/2020 12:00:00 AM EST Current Smoker completed Curre nt Smoker eCW1 ([facility]) Smoking 02/10/2020 12:00:00 AM EST Current Smoker completed Curre nt Smoker eCW1 ([facility]) Smoking 02/10/2020 12:00:00 AM EST Current Smoker completed Curre nt Smoker eCW1 ([facility]) Smoking 02/10/2020 12:00:00 AM EST Current Smoker completed Curre nt Smoker eCW1 ([facility]) Smoking 02/10/2020 12:00:00 AM EST Current Smoker completed Curre nt Smoker eCW1 ([facility]) Smoking 05/27/2019 12:00:00 AM EDT Current Smoker completed Curre nt Smoker eCW1 ([facility]) Smoking 05/27/2019 12:00:00 AM EDT Current Smoker completed Curre nt Smoker eCW1 ([facility]) Smoking 05/27/2019 12:00:00 AM EDT Current Smoker completed Curre nt Smoker eCW1 ([facility]) Smoking 05/27/2019 12:00:00 AM EDT Current Smoker completed Curre nt Smoker eCW1 ([facility]) Vital Signs ID Date Data Source UNK Name Value Range Interpretation Code Description Data Source(s) Diastolic blood pressure 68 mm[Hg] 68 mm[Hg] eCW1 ([facility]) Systolic blood pressure 122 mm[Hg] 122 mm[Hg] e CW1 ([facility]) Body temperature 97.9 [degF] 97.9 [degF] eCW1 ( [facility]) Respiratory rate 18 /min 18 /min eCW1 ([facility] Heart rate 99 /min 99 /min eCW1 ([facility]) Body mass index (BMI) [Ratio] 20.92 kg/m2 20.92 kg/m2 eCW1 ([facility]) Body height 73 [in_i] 73 [in_i] eCW1 ([facility]) Body weight 158.6 [lb_av] 158.6 [lb_av] eCW1 ([facility]) Diastolic blood pressure 68 mm[Hg] 68 mm[Hg] eCW1 ([facility]) Systolic blood pressure 122 mm[Hg] 122 mm[Hg] e CW1 ([facility]) Body temperature 97.9 [degF] 97.9 [degF] eCW1 ( [facility]) Respiratory rate 18 /min 18 /min eCW1 ([facility]) Heart rate 99 /min 99 /min eCW1 ([facility]) Body mass index (BMI) [Ratio] 20.92 kg/m2 20.92 kg/m2 eCW1 ([facility]) Body height 73 [in_i] 73 [in_i] eCW1 ([facility]) Body weight 158.6 [lb_av] 158.6 [lb_av] eCW1 ([facility]) Body weight 65.035 kg 65.035 kg [facility] ([facility], ) Body mass index (BMI) [Ratio] 21.6 kg/m2 21.6 k g/m2 [facility] ([facility], ) Body weight 143.38 [lb_av] 143.38 [lb_av] MEDEN T ([facility], ) Body height 68.25 [in_i] 68.25 [in_i] [facility] ([facility], ) 5'8.25" Body temperature 98.2 [degF] 98.2 [degF] [facility] ([facility], ) Oxygen saturation in Arterial blood by Pulse oximetry 97 % 97 % [facility] ([facility], ) Heart rate 101 /min 101 /min [facility] ([facility], ) Diastolic blood pressure 80 mm[Hg] 80 mm[Hg] MEDENT ([facility], ) Systolic blood pressure 138 mm[Hg] 138 mm[Hg] M EDENT ([facility], ) Diastolic blood pressure 78 mm[Hg] 78 mm[Hg] eCW1 ([facility]) Systolic blood pressure 130 mm[Hg] 130 mm[Hg] e CW1 ([facility]) Body temperature 99.1 [degF] 99.1 [degF] eCW1 ( [facility]) Respiratory rate 18 /min 18 /min eCW1 ([facility]) Heart rate 98 /min 98 /min eCW1 ([facility]) Body mass index (BMI) [Ratio] 21.95 kg/m2 21.95 kg/m2 eCW1 ([facility]) Body height 73 [in_us] 73 [in_us] eCW1 ([facility]) Body weight Measured 166.4 [lb_av] 166.4 [lb_av ] eCW1 ([facility]) Diastolic blood pressure 78 mm[Hg] 78 mm[Hg] eCW1 ([facility]) Systolic blood pressure 130 mm[Hg] 130 mm[Hg] e CW1 ([facility]) Body temperature 99.1 [degF] 99.1 [degF] eCW1 ( [facility]) Respiratory rate 18 /min 18 /min eCW1 ([facility]) Heart rate 98 /min 98 /min eCW1 ([facility]) Body mass index (BMI) [Ratio] 21.95 kg/m2 21.95 kg/m2 eCW1 ([facility]) Body height 73 [in_us] 73 [in_us] eCW1 ([facility]) Body weight Measured 166.4 [lb_av] 166.4 [lb_av ] eCW1 ([facility]) Body weight 68.494 kg 68.494 kg [facility] ([facility], ) Body mass index (BMI) [Ratio] 22.8 kg/m2 22.8 k g/m2 MEDENT ([facility], ) Body weight 151.00 [lb_av] 151.00 [lb_av] MEDEN T ([facility]) Body height 68.25 [in_i] 68.25 [in_i] [facility] ([facility]) 5'8.25" Oxygen saturation in Arterial blood by Pulse oximetry 94 % 94 % [facility] ([facility]) Heart rate 82 /min 82 /min [facility] ([facility]) Diastolic blood pressure 88 mm[Hg] 88 mm[Hg] [facility] ([facility]) Systolic blood pressure 154 mm[Hg] 154 mm[Hg] M [facility] ([facility]) Body weight 72.576 kg 72.576 kg [facility] ([facility]) Body mass index (BMI) [Ratio] 22.3 kg/m2 22.3 k g/m2 [facility] ([facility]) Body weight 160.00 [lb_av] 160.00 [lb_av] [facility] Body height 71 [in_i] 71 [in_i] [facility] ([facility]) 5'11" Diastolic blood pressure 102 mm[Hg] 102 mm[Hg] [facility] ([facility]) Systolic blood pressure 152 mm[Hg] 152 mm[Hg] [facility] ([facility]) Patient Treatment Plan of Care Planned Activity Planned Date Details Description Data Source (s) gabapentin 100 MG Oral Capsule 12/20/2019 12:00:00 AM EDT eCW1 ([facility]) gabapentin 100 MG Oral Capsule 12/20/2019 12:00:00 AM EDT eCW1 ([facility]) pantoprazole 40 MG Delayed Release Oral Tablet 05/27/2019 12:00:00 AM EDT eCW1 ([facility]) pantoprazole 40 MG Delayed Release Oral Tablet 05/27/2019 12:00:00 AM EDT eCW1 ([facility])
[2020-03-14 08:20] LABS: ALBUMIN 3.5 GM/DL (3.2-5.2); ALT/SGPT 16 U/L (12-78); BILIRUBIN,DIRECT 0.1 MG/DL (0.0-0.2); BILIRUBIN,TOTAL 0.8 MG/DL (0.2-1.0); BLOOD UREA NITROGEN 11 MG/DL (7-18); CALCIUM LEVEL 9.2 MG/DL (8.5-10.1); CARBON DIOXIDE LEVEL 31 MEQ/L (21-32); CHLORIDE LEVEL 103 MEQ/L (98-107); CREATININE FOR GFR 0.85 MG/DL (0.70-1.30); GLOMERULAR FILTRATION RATE > 60.0 (>56); GLUCOSE, FASTING 119 MG/DL (70-100); POTASSIUM SERUM 3.7 MEQ/L (3.5-5.1); SODIUM LEVEL 139 MEQ/L (136-145); TOTAL PROTEIN 6.6 GM/DL (6.4-8.2)
--- NOTE | 2020-03-14 08:20 | REP ---
INDICATION: DYSPNEA/COUGH. COMPARISON: 12/29/2019. TECHNIQUE: SINGLE PORTABLE AP VIEW OF THE CHEST WAS PERFORMED. FINDINGS: THERE IS NO ACUTE INFILTRATE OR PULMONARY EDEMA. LUNGS ARE CLEAR. HEART IS NOT SIGNIFICANTLY ENLARGED. MEDIASTINAL SILHOUETTE IS UNREMARKABLE. THE VISUALIZED OSSEOUS STRUCTURES ARE INTACT. IMPRESSION: NO ACUTE PULMONARY DISEASE. <Electronically signed by Stalin Anderson > 03/14/20 0816
[2020-03-14 08:45] VITALS: BP 154/87
--- NOTE | 2020-03-16 08:20 | ECGEPIP ---
[facility] - ED Test Date: 2020-03-14 Pat Name: GORDON SERNA Department: Room: - Gender: Male Residential Concierge: nikole : 1965 Requested By: AMINTA HURLEY Order Number: [id number] Reading MD: Esther Harvey Measurements Intervals [place] Rate: 58 P: 22 VT: 170 QRS: -2 QRSD: 108 T: 53 QT: 409 QTc: 402 Interpretive Statements SINUS BRADYCARDIA NSTTW abnormalities DECREASED RATE 12/29/19 Electronically Signed on 03-16-2020 8:20:44 EST by Esther Harvey
== END 2020-03-14 09:09 | disposition home or self-care (01) ==
LOC: M ED 06:44
DX: J44.9 Chronic obstructive pulmonary disease, unspecified (principal); G62.9 Polyneuropathy, unspecified; J45.909 Unspecified asthma, uncomplicated; Z79.899 Other long term (current) drug therapy; Z79.82 Long term (current) use of aspirin; Z88.1 Allergy status to other antibiotic agents; Z88.8 Allergy status to other drugs, medicaments and biological substances; Z91.040 Latex allergy status; F17.210 Nicotine dependence, cigarettes, uncomplicated

== ENCOUNTER 2020-04-01 12:20 | Emergency (ER) | payer OTHER ==
[~2020-04-01] VITALS: Ht 180.3 cm; Wt 64.0 kg
[~2020-04-01 12:20] MED LIST changes: +MAG400TA PO; -MAGN400T35 PO
[2020-04-01] MEDS ORDERED: IPRATROPIUM 0.02% SOLN 0.5MG 2.5ML NEB INH ONE (12:45)
--- NOTE | 2020-04-01 13:03 | REP ---
INDICATION: DYSPNEA/COUGH COMPARISON: 03/14/2020 TECHNIQUE: Portable AP view of the chest FINDINGS: The mediastinum and cardiac silhouette are stable and within normal limits for portable technique. The lung garcia demonstrate chronic appearing changes without acute consolidation, effusion, or pneumothorax. Skeletal structures are intact. IMPRESSION: No focal consolidation or effusion. <Electronically signed by Flex Forrest > 04/01/20 1300
[2020-04-01 13:14] LABS: VENOUS BASE EXCESS 1.2 (-2.0-2.0); VENOUS HCO3 27.3 MEQ/L (23.0-27.0); VENOUS O2 SATURATION 81.7 % (60.0-80.0); VENOUS PARTIAL PRESSURE CO2 48.8 mmHg (38.0-50.0); VENOUS PARTIAL PRESSURE O2 46.2 mmHg (30.0-50.0); VENOUS PH 7.365 UNITS (7.330-7.430); VENOUS STANDARD HCO3 25.2 MEQ/L; VENOUS TOTAL CO2 28.8 MEQ/L (24.0-28.0)
[2020-04-01 13:15] LABS: BASO % 0.4 % (0.0-1.0); EOS % 0.1 % (0.0-3.0); HEMATOCRIT 40.3 % (42.0-52.0); HEMOGLOBIN 13.1 g/dl (13.5-17.5); LYMPH # 1.3 10^3/uL (1.5-5.0); LYMPH % 14.3 % (24.0-44.0); MEAN CORPUSCULAR HEMOGLOBIN 29.6 pg (27.0-33.0); MEAN CORPUSCULAR HGB CONC 32.5 g/dl (32.0-36.5); MONO # 0.5 10^3/uL (0.0-0.8); MONO % 5.7 % (0.0-5.0); NEUTROPHILS # 7.2 10^3/uL (1.5-8.5); NEUTROPHILS % 79.2 % (36.0-66.0); PLATELET COUNT, AUTOMATED 216 10^3/uL (150-450); RED BLOOD COUNT 4.43 10^6/uL (4.30-6.10); WHITE BLOOD COUNT 9.1 10^3/uL (4.0-10.0)
[2020-04-01] MEDS ORDERED: IPRATROPIUM HFA INHALER 12.9 GRAMS (ATROVENT HFA) INH ONE (13:15)
[2020-04-01 13:49] LABS: ALBUMIN 3.6 GM/DL (3.2-5.2); ALT/SGPT 18 U/L (12-78); BILIRUBIN,DIRECT 0.2 MG/DL (0.0-0.2); BILIRUBIN,TOTAL 0.8 MG/DL (0.2-1.0); BLOOD UREA NITROGEN 6 MG/DL (7-18); CALCIUM LEVEL 9.7 MG/DL (8.5-10.1); CARBON DIOXIDE LEVEL 30 MEQ/L (21-32); CHLORIDE LEVEL 101 MEQ/L (98-107); CK-MB VALUE MASS < 1.0 NG/ML (<3.6); CPK CREATINE PHOSPHOKINASE 72 U/L (39-308); CREATININE FOR GFR 0.81 MG/DL (0.70-1.30); GLOMERULAR FILTRATION RATE > 60.0 (>56); GLUCOSE, FASTING 119 MG/DL (70-100); MB/CK RELATIVE INDEX 1.39 (< OR =4); NT-PRO BNP 44 PG/ML (<125); POTASSIUM SERUM 3.9 MEQ/L (3.5-5.1); SODIUM LEVEL 136 MEQ/L (136-145); TOTAL PROTEIN 7.4 GM/DL (6.4-8.2); TROPONIN I < 0.02 NG/ML (< 0.10)
[2020-04-01 14:48] LABS: ACETAMINOPHEN LEVEL 4.8 UG/ML (10.0-30.0); ETHYL ALCOHOL (ETHANOL) < 0.003 % (0.000-0.010); SALICYLATE LEVEL 2.9 MG/DL (5.0-30.0)
[2020-04-01 15:43] LABS: AMPHETAMINES LEVEL URINE NEGATIVE (NEGATIVE); BARBITURATES URINE NEGATIVE (NEGATIVE); BENZODIAZEPINES URINE NEGATIVE (NEGATIVE); CANNABINOIDS URINE NEGATIVE (NEGATIVE); COCAINE METABOLITE URINE NEGATIVE (NEGATIVE); METHADONE URINE NEGATIVE (NEGATIVE); OPIATES URINE NEGATIVE (NEGATIVE); PHENCYCLIDINE URINE NEGATIVE (NEGATIVE)
[2020-04-01 21:54] VITALS: BP 130/88
--- NOTE | 2020-04-02 07:37 | ECGEPIP ---
[facility] - ED Test Date: 2020-04-01 Pat Name: GORDON SERNA Department: Room: - Gender: Male Adult Services Librarian: : 1965 Requested By: GLENN YEE Order Number: [id number] Reading MD: Esther Harvey Measurements Intervals Kimberly Rate: 73 P: 51 TX: 146 QRS: 33 QRSD: 108 T: 53 QT: 396 QTc: 436 Interpretive Statements Normal sinus rhythm Low voltage QRS NSTTW abnormalities INCREASED RATE 03/14/20 Electronically Signed on 04-02-2020 7:36:54 EST by Esther Harvey
== END 2020-04-01 21:54 | disposition short-term general hospital (02) ==
LOC: M ED 12:20 → EDBD 12:20 → M ED 21:54
DX: R45.851 Suicidal ideations (principal); J44.9 Chronic obstructive pulmonary disease, unspecified; F17.200 Nicotine dependence, unspecified, uncomplicated; Z91.040 Latex allergy status; Z88.1 Allergy status to other antibiotic agents; Z88.8 Allergy status to other drugs, medicaments and biological substances

== ENCOUNTER 2020-05-13 17:55 | Inpatient (IN) | payer OTHER ==
[~2020-05-13] VITALS: Ht 177.8 cm; Wt 77.3 kg
[~2020-05-13 17:55] MED LIST changes: +FOLI0.8T3 PO; -MAG400TA PO; +MAGN400T35 PO; -VITA250T50 PO; +VITA250T7 PO
[2020-05-13] MEDS ORDERED: COMBIVENT RESPIMAT 100-20MCG INHALER 4GM INH SCH (18:10)
[2020-05-13] MEDS: COMBIVENT RESPIMAT 100-20MCG INHALER 4GM INH SCH (18:34)
[2020-05-13 21:20] LABS: HEMATOCRIT 41.4 % (42.0-52.0); HEMOGLOBIN 13.6 g/dl (13.5-17.5); MEAN CORPUSCULAR HEMOGLOBIN 29.8 pg (27.0-33.0); MEAN CORPUSCULAR HGB CONC 32.9 g/dl (32.0-36.5); MEAN CORPUSCULAR VOLUME 90.6 fl (80.0-96.0); PLATELET COUNT, AUTOMATED 232 10^3/uL (150-450); RED BLOOD COUNT 4.57 10^6/uL (4.30-6.10); WHITE BLOOD COUNT 8.6 10^3/uL (4.0-10.0)
[2020-05-13 21:53] LABS: ACETAMINOPHEN LEVEL < 2.0 UG/ML (10.0-30.0); ALBUMIN 3.8 GM/DL (3.2-5.2); ALT/SGPT 22 U/L (12-78); BILIRUBIN,DIRECT < 0.1 MG/DL (0.0-0.2); BILIRUBIN,TOTAL 0.2 MG/DL (0.2-1.0); BLOOD UREA NITROGEN 9 MG/DL (7-18); CALCIUM LEVEL 9.4 MG/DL (8.5-10.1); CARBON DIOXIDE LEVEL 29 MEQ/L (21-32); CHLORIDE LEVEL 108 MEQ/L (98-107); CREATININE FOR GFR 0.68 MG/DL (0.70-1.30); ETHYL ALCOHOL (ETHANOL) < 0.003 % (0.000-0.010); GLOMERULAR FILTRATION RATE > 60.0 (>56); GLUCOSE, FASTING 89 MG/DL (70-100); POTASSIUM SERUM 4.2 MEQ/L (3.5-5.1); SALICYLATE LEVEL 3.8 MG/DL (5.0-30.0); SODIUM LEVEL 141 MEQ/L (136-145); THYROID STIMULATING HORMONE 0.486 uIU/ML (0.358-3.740); TOTAL PROTEIN 6.8 GM/DL (6.4-8.2)
[2020-05-13 22:20] LABS: RSV AMPLIFICATION NEGATIVE (NEGATIVE)
[2020-05-13 23:45] LABS: AMPHETAMINES LEVEL URINE NEGATIVE (NEGATIVE); BARBITURATES URINE NEGATIVE (NEGATIVE); BENZODIAZEPINES URINE NEGATIVE (NEGATIVE); CANNABINOIDS URINE POSITIVE (NEGATIVE); COCAINE METABOLITE URINE NEGATIVE (NEGATIVE); METHADONE URINE NEGATIVE (NEGATIVE); OPIATES URINE NEGATIVE (NEGATIVE); PHENCYCLIDINE URINE NEGATIVE (NEGATIVE)
[2020-05-14] MEDS: COMBIVENT RESPIMAT 100-20MCG INHALER 4GM INH SCH ×3 (02:00→14:12)
[2020-05-14] MEDS ORDERED: ACETAMINOPHEN TAB 650MG DOSE (2X325MG) PO PRN (09:25)
[2020-05-14] MEDS ORDERED: MOM 30ML SUSPENSION UDC PO PRN (09:25)
[2020-05-14] MEDS ORDERED: MAALOX 30 ML SUSP *UDC PO PRN (09:25)
[2020-05-14] MEDS ORDERED: traZODone 50 MG TAB PO PRN (09:25)
--- NOTE | 2020-05-14 11:29 | ECGEPIP ---
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
--- NOTE | 2020-05-14 17:43 | MHHPEPDOC ---
General Date Of Admission: May 14, 2020 Legal Status: 9.39 Chief Complaint Patient reports suicidal ideation to jump from a bridge or shoot himself. 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 "I did very well for many years and started a family, I got after I moved here and I had a successful and happy life. All things went as planned but we couldn't have a family. We had a beautiful house and boat." States his worked at the [employer] and raised money. 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 Patient ruminated quite a but about the success and fall of his business and feeling guilty about his employees. He ruminated about his successes with his house and water life. He states that when his father he was under the impression that the land would be given to him but his mother sold it. He states, "My equipment and personal belongings were still there and that bothered me that Ann-Marie sold it. I was furious - that triggered me - the world is crashing down because it was suppose to be willed to me. He reports that he has had suicidal thoughts for a long time, won't give a time line but states the loss of this property, poor supports and other situational stressors are causing him increased depression. PER ED REPORT: PT is +SI with plan to jump from a bridge or shoot himself. PT states that he was having an anxiety attack which caused him to be SOB and he is also suicidal. PT states that he and his family had owned a business in [place] for years and that his mother told him they sold it and he was had been told about it. He also had his own home that he thinks was sold around the same time but that he also is confused about that sale. 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 PT states he did not take anything but that all of his belongings to include office supplies, files and machinery are still there. PT speaks as if he still has use of both properties and that he continues to have belongings at both places. He cant seem to let the situation go but he admits has done no follow up in regards to getting clarity. PT lives in his own apartment that is subsidized and he has been there for two years. He attempts to assist another resident "Haris" but that is the only consistent relationship he currently has. PT has Hx of alcohol abuse and after months of sobriety he states he got intoxicated last week. PT has come close 2x to killing himself and both times he called a friend instead. He was admitted to [facility] 03/2020 after self-presenting to [facility] with SI. When he was d/c he attended an intake appointment 04/07 at [facility] Out[facility] but is unclear why there were no other appointments. PT states that he has access to guns "They are in the warehouse" but admits he has not seen them in the two years since the building was sold. "I don't feel safe from myself right now" when being discharged is discussed. PT discovered a friend after they had committed suicide many years ago and PT went inpatient as a result. He states his current SI can be intense and he cannot CFS. PT is O2 dependent and has complaints of numbness in his feet so he has been utilizing a wheelchair. He is aware that [facility] is at capacity and that he will need to be transferred. It is not clear if PT is truly confused with memory lapses or delusional in regards to family business sales and the properties. Psychiatric Review of Systems Depression (2 or more weeks): depressed mood, anhedonia, insomnia/hypersomnia (has a poor schedule, so the structure of sleep patterns is poor ), decreased energy, difficulty concentrating, psychomotor changes, suicidal thoughts Emily (4 or more days of): other (reports racing thoughts) Psychosis: paranoia (feels like management is invading my property, DSS hasn't paid my rent, they shut off my assistance) PTSD: denies Anxiety: situational anxiety, stressor related anxiety, panic attacks Anxiety/ 6 months or more of: restlessness, keyed up, difficulty concentrating, muscle tension, sleep disturbance Past Psychiatric History Previous Psychiatric Diagnosis: Previous Psychiatric Admissions: 2 or 3 times Suicide Attempts: Suicidal thoughts only Psychiatric Follow-up: None, Bertha Kumar Psychiatric medications: See Home Medication Reconciliation Past Medical History Medical Problems COPD Weak left heart Asthma Seasonal Allergies - Skin issues, very dry skin Verocyle longation Hematomoa in earlobe allergies see below Head Injury: No Seizures: No Hospitalizations: Yes Surgeries: Yes Family Medical/Psychiatric HX Medical Problems Allergies Father- dry skin, HTN Mother - HTN Psychiatric Disorders: No Addiction: No Addiction History nicotine, alcohol (sober 1983. Started drinking 1993) Social History Childhood: Born in [facility], Describes childhood outstanding. Did ok in school, was very active. Older sister and older brother, he is the youngest. Both siblings still alive Abuse/Trauma: No Current Living Situation: Living in an apartment, alone Education: High School Diploma and some college Employment: Unemployed, looking for work Social Support: Limited in the building, handful of friends Legal: spent brief times in senior living, no current issues Marital: Single, no children Mental Status Examination General Appearance: disheveled, ds/not appear stated age (older), hospital scubs/clothing Build: thin Demeanor: average Eye Contact: average Activity: average Behavior: cooperative Speech: clear, rapid (mildly), other (loud) Mood: depressed, anxious Affect: constricted Thought Process: logical/linear Thought Content (Delusions): grandiose, paranoia Thought Content (Other): none reported Thought Content (Aggressive): none reported Perception (Hallucinations): none reported Perception (Other): none reported Cognition (Impairment of): none reported Cognition(Intelligence Est.): average Oriented: Awake, Alert, Oriented times three Insight: fair Judgment: Fair Psychosis: Denies Diagnoses Major Depressive Disorder, Recurrent, Moderate Nicotine Use Disorder Asthma COPD Hernia A-FIB/CHADSVASC A-FIB History Current/History of A-Fib/PAF?: No Current PO Anticoag Therapy: No Age/Risk Factor Scoring CHADSVASC: CHADSVASC Response (Comments) Value Age Risk Factor Age < 65 years old 0 Gender Risk Factor Male 0 Hx of CHF No 0 Hx of HTN Yes 1 Hx of Stroke/TIA/or VTE No 0 Hx of Diabetes No 0 Hx of Vascular Disease No 0 Total 1 Assessment Patient is a 55 year old Single, Unemployed/Disabled, Domiciled, Male who is reporting suicidal ideation to jump from a bridge or shoot himself with a gun. He recently learned that a business property that he thought would be given to him was sold and now is locked. He reports that he still has equipment and personal belongings in this business, including guns. He currently lives in an apartment and believes that other people are going through his things. He has a alcohol history and reports being intoxicated last week. He has multiple somatic complaints and reported to the ED that he cannot contract for safety. P giuseppe is alert and oriented, appears older than his stated age, wearing hospital scrubs and hygiene and grooming is fair. Patient does look a little frail and then using a wheelchair has oxygen for his COPD . . He is alert and oriented, cooperative in the interview, quite pleasant. His eye contact is appropriate. He seems relaxed in the interview. No abnormal movements noted. No protrusions or lip-smacking. His posture is upright. Patient's speech is mildly rapid and pressured. He is very loud in the interview He appears very depressed and anxious, has rapid loud speech and reports racing thoughts. Patient reports that he is depressed and anxious, but feeling sad as well . . His affect is blunted and flat since perception has some paranoia. Reports that people are going through his apartment, but his thought process is mostly linear, goal oriented and organized. He has mild loosening of associations. His thought content is mostly surrounding the loss of the business, therefore some suicidal ideation and he has had thoughts of jumping from a bridge or shooting himself with a gun. These guns are in the business that has now been sold. His cognition is average. Abstract reasoning is intact short and long-term memory are intact. Fund of knowledge average. Insight and judgment fair. Patient to be admitted to my service on an 939 legal status. Will start patient on all of his home medications and titrate his antidepressants and anxiolytics to therapeutic levels. Hospitalist to cover medical coverage for the patient. We will discharge when he is stable and has a safe discharge plan Initial Treatment Plan 1. Patient was admitted on a [9.39] status. 2. Complete history was obtained. 3. With patients permission, family will be contacted and database will be expanded. 4. Patients medication regimen will be reviewed and changed accordingly. 5. Patient will be provided with protected environment. 6. Patient will be treated with individual, group, and milieu therapies. 7. Patient will receive supportive psych-education. 8. Discharge planning will commence immediately. 9. Outpatient follow-up treatment will be strongly recommended. 10. The initial treatment plan will focus initially on: * Depression. * Risk for suicide. ESTIMATED LENGTH OF STAY: 3-5 DAYS. TIME SPENT COUNSELING AND COORDINATING INITIAL CARE: 60 minutes. N/A-No Antipsychotics Vital Signs Vital Signs Date Time Temp Pulse Resp B/P (MAP) Pulse Ox O2 Delivery O2 Flow Rate FiO2 05/14/20 11:34 98.3 66 18 122/58 (79) 97 Nasal Cannula 4.0 Laboratory Data 24H Labs Laboratory Tests 2 05/13/20 21:06: Nucleated Red Blood Cells % (auto) 0.0, Anion Gap 4L, Glomerular Filtration Rate > 60.0, Calcium Level 9.4, Total Bilirubin 0.2, Direct Bilirubin < 0.1, Aspartate Amino Transf (AST/SGOT) 8, Alanine Aminotransferase (ALT/SGPT) 22, Alkaline Phosphatase 78, Total Protein 6.8, Albumin 3.8, Albumin/Globulin Ratio 1.3, Thyroid Stimulating Hormone (TSH) 0.486, Salicylates Level 3.8L, Urine Opiates Screen NEGATIVE, Urine Methadone Screen NEGATIVE, Acetaminophen Level < 2.0L, Urine Barbiturates Screen NEGATIVE, Urine Phencyclidine Screen NEGATIVE, Urine Amphetamines Screen NEGATIVE, Urine Benzodiazepines Screen NEGATIVE, Urine Cocaine Metabolite Screen NEGATIVE, Urine Cannabinoids Screen POSITIVEH, Ethyl Alcohol Level < 0.003 05/13/20 21:14: Coronavirus (COVID-19)(PCR) NEGATIVE, Influenza Type A (RT-PCR) NEGATIVE, Influenza Type B (RT-PCR) NEGATIVE, Respiratory Syncytial Virus (PCR) NEGATIVE CBC/BMP Laboratory Tests 05/13/20 21:06 Medications Scheduled Amlodipine Besylate (Amlodipine Besylate) 5 Mg Tablet, 5 MG PO DAILY, (Reported) Aspirin (Aspirin EC) 81 Mg Tablet.dr, 81 MG PO DAILY, (Reported) Atorvastatin Calcium (Atorvastatin Calcium) 10 Mg Tablet, 10 MG PO DAILY, (Reported) Buspirone HCl (Buspirone HCl) 15 Mg Tablet, 15 MG PO BID, (Reported) Citalopram Hydrobromide (Citalopram HBr) 40 Mg Tablet, 40 MG PO DAILY, (Reported) Cyanocobalamin (Vitamin B-12) (Vitamin B-12) 1,000 Mcg Tab, 1,000 MCG PO DAILY, (Reported) Folic Acid (Folic Acid) 1 Mg Tab, 1 MG PO DAILY, (Reported) Gabapentin (Gabapentin) 100 Mg Capsule, 100 MG PO BID Levocetirizine Dihydrochloride (Levocetirizine Dihydrochloride) 5 Mg Tab, 5 MG PO DAILY, (Reported) Magnesium Oxide (Magnesium Oxide) 400 Mg Tablet, 400 MG PO DAILY, (Reported) Montelukast Sodium (Singulair) 10 Mg Tab, 10 MG PO DAILY, (Reported) Multivitamins (Thera M Plus Tablet) 1 Tab Tab, 1 TAB PO DAILY, (Reported) Oxybutynin Chloride (Oxybutynin Chloride ER) 5 Mg Tab, 5 MG PO DAILY, (Reported) Pantoprazole Sodium (Pantoprazole Sodium) 40 Mg Tab, 40 MG PO DAILY, (Reported) Salmeterol/Fluticasone (Advair 500-50 Diskus) 28 Puff/Inhaler Aerp, 1 PUFF INH BID, (Reported) Thiamine HCl (Vitamin B-1) 50 Mg Tab, 100 MG PO DAILY, (Reported) Umeclidinium [employer] (Incruse Ellipta) 62.5 Mcg/Inh Inh, 1 PUFF INH DAILY, (Reported) Scheduled PRN Acetaminophen (Tylenol Extra Strength) 500 Mg Tablet, 1,000 MG PO Q6H PRN for PAIN, (Reported) Albuterol Sulfate (Ventolin Hfa) 108 Mcg/Act Aer, 2 PUFFS INH Q4H PRN for SHORTNESS OF BREATH, (Reported) Epinephrine (Epinephrine) 0.3 Mg/0.3 Ml Inj, 0.3 MG INJ ASDIRECTED PRN for ANAPHYLAXIS, (Reported) Guaifenesin (Mucinex) 600 Mg Tab.er.12h, 600 MG PO BID PRN for CONGESTION, (Reported) Hydroxyzine HCl (Hydroxyzine HCl) 25 Mg Tab, 25 MG PO TID PRN for ITCHING, (Reported) Ipratropium/Albuterol Sulfate (Iprat-Albut 0.5-3(2.5) mg/3 ml) 1 Bell Bell, 1 VIAL INH QID PRN for SHORTNESS OF BREATH, (Reported) Olopatadine HCl (Olopatadine HCl) 0.1% 5ML Drops, 1 DROP OU BID PRN for ITCHING, (Reported) Polyvinyl Alcohol (Artificial Tears) 1.4 % Bell, 1 DROP OU QID PRN for DRY EYES, (Reported) Trazodone HCl (Trazodone HCl) 50 Mg Tablet, 50 MG PO QHS PRN for SLEEP, (Reported) Allergies Coded Allergies: ROMULO Inhibitors (Verified Allergy, Severe, ANGIOEDEMA, 11/26/19) azithromycin (Verified Allergy, Severe, ANAPHYLAXIS, 11/26/19) oseltamivir (Verified Allergy, Severe, ANAPHYLAXIS, 11/26/19) latex (Verified Allergy, Intermediate, HIVES, EDEMA, 01/29/20) SEASONAL ALLERGIES (Verified Allergy, Unknown, 11/26/19) JANINE LOERA NP May 14, 2020 17:34
[2020-05-14] MEDS ORDERED: OLOPATADINE 0.1% OPHTH SOL 5ML(PATANOL) OU PRN (17:45)
[2020-05-14] MEDS ORDERED: ACETAMINOPHEN 500 MG TAB PO PRN (17:45)
[2020-05-14] MEDS ORDERED: ALBUTEROL 90 MCG/ACT 8GM HFA INHALER INH PRN (17:45)
[2020-05-14] MEDS ORDERED: EPINEPHrine INJ 1 MG/ML 1ML AMP INJ PRN (17:45)
[2020-05-14] MEDS ORDERED: guaiFENesin ER 600 MG TAB PO PRN (17:45)
[2020-05-14] MEDS ORDERED: hydrOXYzine 25 MG TAB PO PRN (17:45)
[2020-05-14] MEDS ORDERED: POLYVINYL ALCOHOL OPHTH SOLN 15 ML(LIQUITEARS) OU PRN (17:45)
[2020-05-14 18:52] VITALS: BP 140/87
[2020-05-14] MEDS: ADVAIR HFA 230/21MCG INHALER INH SCH (20:29)
[2020-05-14] MEDS: traZODone 50 MG TAB PO PRN (20:30)
[2020-05-14] MEDS: GABAPENTIN 100 MG CAP PO SCH (20:30)
[2020-05-14] MEDS: busPIRone 5 MG TAB PO SCH (20:30)
[2020-05-15] MEDS: ADVAIR HFA 230/21MCG INHALER INH SCH ×2 (07:50→21:03)
[2020-05-15] MEDS: TIOTROPIUM INHALER/CAPSULE (SPIRIVA) INH SCH (07:51)
[2020-05-15] MEDS: FOLIC ACID 1 MG TAB PO SCH (07:51)
[2020-05-15] MEDS: oxyBUTYnin *DITROPAN XL* 5 MG TABCR PO SCH (07:51)
[2020-05-15] MEDS: busPIRone 5 MG TAB PO SCH ×2 (07:51→21:04)
[2020-05-15] MEDS: ASPIRIN 81MG ENTERIC TABLET PO SCH (07:51)
[2020-05-15] MEDS: MULTIVITAMINS/MINERALS THERAP 1 TAB PO SCH (07:51)
[2020-05-15] MEDS: GABAPENTIN 100 MG CAP PO SCH ×2 (07:52→21:04)
[2020-05-15] MEDS: amLODIPine 5 MG TAB PO SCH (07:52)
[2020-05-15] MEDS: MONTELUKAST 10 MG TAB PO SCH (07:52)
[2020-05-15] MEDS: MAGNESIUM OXIDE 400MG TAB (MAG-OX) PO SCH (07:52)
[2020-05-15] MEDS: PANTOPRAZOLE 40MG TAB (PROTONIX) PO SCH (07:52)
[2020-05-15] MEDS: CYANOCOBALAMIN 500 MCG TAB PO SCH (07:53)
[2020-05-15] MEDS: CETIRIZINE (ZyrTEC) 10 MG TAB PO SCH (07:53)
[2020-05-15] MEDS: THIAMINE 100 MG TAB PO SCH (07:53)
[2020-05-15] MEDS: ATORVASTATIN 10 MG TAB PO SCH (07:53)
[2020-05-15 08:06] VITALS: BP 128/84
[2020-05-15] MEDS ORDERED: POLYVINYL ALCOHOL OPHTH SOLN 15 ML(LIQUITEARS) OU PRN (10:15)
--- NOTE | 2020-05-15 14:15 | HPE ---
HISTORY AND PHYSICAL DATE OF ADMISSION: 05/14/2020 REASON FOR EXAMINATION: Routine medical examination for psychiatric admission. HISTORY OF PRESENT ILLNESS: This is a 55-year-old male with a history of severe COPD Gold III with FEV of 1.8 liters for a ratio of 57%/asthma overlap, chronic respiratory failure with hypoxia with supplemental oxygen as needed with portability, hypertension, history of chronic alcohol abuse with alcoholic hepatitis, cardiomyopathy with an ejection fraction of 15%, global hypokinesis in 2017 with repeat echo in 2018 with EF improving to 55%, mild aortic regurgitation, mild mitral regurgitation, allergic rhinitis, conjunctivitis. Nicotine abuse, reflux. Major depression. Generalized anxiety disorder. IgM deficiency. Chronic thrombocytopenia, B12 deficiency. Chronic pruritus. Overactive bladder. Chronic disability secondary to COPD/asthma. He was admitted to the Inpatient Mental Health Unit due to depression. Patient complains of occasional shortness of breath with exertion but improves with nebulizer treatment and resting. 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 He says that his primary care doctor takes care of everything. The patient's shortness of breath has been ascribed to asthma, improves with inhalers and nebulizer treatments at home. He says that he does not have any nighttime symptoms and has not had any exacerbations for the past one month. He admits to chronic wheezing that does not get better even with cough. He has chronic allergic conjunctivitis but refusing to use Pataday or Patanol and Refresh eyedrops. He says his eyes have been itching for some time now. He otherwise denies chest pain, pressure or tightness, or worsening shortness of breath. He has as chronic cough without fever or chills. No nausea or vomiting. No epigastric pain or bright-red blood rectum, melena or black-tarry stools, palpitations, lightheadedness, fever, chills, weight gain, weight loss, changes in appetite or rhinorrhea. He does complain of occasional allergic rhinitis especially when the pollen comes out in the spring but none while he has been in the hospital. He denies dysuria, urgency or frequency. No flank pain. He denies any upper or lower extremity weakness. He denies any polyuria, polydipsia or polyphagia. No changes in sleep habits. All other review of systems otherwise negative. PAST MEDICAL HISTORY: Severe COPD, Gold III, asthma overlap, chronic respiratory failure with hypoxia, hypertension, chronic alcohol abuse, alcohol hepatitis, history of severe alcoholic cardiomyopathy, EF of 15% on echocardiogram in 10/13, repeat echo in 2017 showed ejection fraction of 55%, AVS, mild AR, MR. Allergic rhinitis, conjunctivitis, nicotine abuse, reflux, major depressive disorder, generalized anxiety disorder, IgM deficiency, chronic thrombocytopenia, B12 deficiency, chronic pruritus, overactive bladder, chronic disability secondary to COPD and asthma. PAST SURGICAL HISTORY: Varicocele ligation at [facility], cardiac catheterization. No angiographic CAD, normal LV systolic function mild apical hypokinesis suggestive of apical ballooning 09/12/2013. Colonoscopy by Dr. Weiss in 2014, cardiac catheterization in 2016, right IOL 12/15, lap cholecystectomy by Dr. Ward in December 2018. ALLERGIES: ROMULO inhibitors causing angioedema, azithromycin, anaphylaxis, latex, hives and edema, Oseltamivir causing anaphylaxis. Seasonal allergies. FAMILY HISTORY: Father at 80, sepsis complicated by CHF, hypertension. Mother with hypertension. SOCIAL HISTORY: Prior history of alcohol abuse, still drinks occasionally, none in the hospital. Previous smoker. No recreational drug use, on chronic disability, full code. REVIEW OF SYSTEMS: Per HPI. A 12 point system otherwise negative. PHYSICAL EXAMINATION: Vitals: Temperature 98.4, pulse 62, respiratory rate 16, blood pressure is 128/84, 98% on room air. Generally, the patient is awake, alert and oriented to person, place and time. Anicteric. No jaundice. No pallor. No use of respiratory accessory muscles. Able to speak in full sentences without conversational dyspnea. No tripod positioning or pursed lip breathing. HEENT: Pupils equally round, reactive to light and accommodation. Extraocular muscles are intact. The patient has injection of the sclera bilaterally. No pharyngeal erythema or cervical lymphadenopathy, JVD of thyromegaly. Lungs are diminished, bilateral scattered wheezing. No use of respiratory accessory muscles. No nasal flaring. No tracheal deviation. Heart is S1 and S2, sinus rhythm. No murmurs, rubs or gallops. Abdomen is soft, nontender, nondistended. Positive bowel sounds. Extremities: No cyanosis, clubbing or pitting edema. Skin: Warm, dry, well-perfused, pink in color. LABORATORY DATA: 05/13/2020: White count 8.6, hemoglobin 13, hematocrit 41, platelet count 232, sodium 141, potassium is 4.2, chloride is 108, bicarbonate 28, BUN 9, creatinine 0.68, glucose is 89, calcium is 9.4, T-bili 0.2, direct bilirubin less than 0.1. AST 8, ALT, alkaline phosphatase 78, total protein 6.8, albumin is 3.8. TSH is 0.486. HOSPITAL MEDICATIONS: 1. Norvasc 5 daily. 2. Aspirin 81 mg daily. 3. Lipitor 10 daily. 4. Vitamin B12 1000 mcg daily. 5. Folic acid 1 mg daily. 6. Singulair 10 daily. 7. Multivitamin one tablet daily. 8. Oxybutynin. 9. Ditropan XL 5 mg daily. 10.Protonix 40 daily. 11.Thiamine 100 daily. 12.Mag-Ox 400 daily. 13.Zyrtec 5 mg q.a.m. 14.Spiriva one inhaled daily. 15.BuSpar 15 mg b.i.d. 16.Neurontin 100 b.i.d. 17.Advair HFA two puffs routine b.i.d. 18.Tylenol 1 gram q. 6 as needed. 19.Proventil two puffs q. 4 as needed. 20.Adrenaline 0.3 injected as needed for anaphylaxis. 21.Mucinex 600 b.i.d. as needed. 22.Atarax 25 t.i.d. for pruritus. 23.Artifical tears one drop q.i.d. as needed. 24.Patanol one drop b.i.d. as needed. 25.Trazodone 50 q.h.s. 26.Milk of Magnesia 30 ml daily as needed. 27.Mylanta 30 ml q. 4 as needed. ASSESSMENT AND PLAN: A 55-year-old admitted to Mental Health Unit for severe depression with a history of COPD, hypoxia on oxygen as needed, chronic respiratory failure, hypertension, alcohol abuse, alcohol cardiomyopathy, prior tobacco abuse, reflux, anxiety/depression, chronic thrombocytopenia, admitted for depression. The patient is currently compensated and despite wheezing on examination does not appear to be in exacerbation of COPD or asthma. He has nebulizer treatments as needed which should be continued, Montelukast and Spiriva, inhaled steroids. No other acute issues for this patient at this time. Hospitalist will sign off. Please re-consult as needed for any acute medical issues. Edited: [facility] 05/18/2020 [id number] [id number]
--- NOTE | 2020-05-15 14:27 | MHIPNPDOC ---
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 "I did very well for many years and started a family, I got after I moved here and I had a successful and happy life. All things went as planned but we couldn't have a family. We had a beautiful house and boat." States his worked at the [employer] and raised money. 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 Patient ruminated quite a but about the success and fall of his business and feeling guilty about his employees. He ruminated about his successes with his house and water life. He states that when his father he was under the impression that the land would be given to him but his mother sold it. He states, "My equipment and personal belongings were still there and that bothered me that Ann-Marie sold it. I was furious - that triggered me - the world is crashing down because it was suppose to be willed to me. He reports that he has had suicidal thoughts for a long time, won't give a time line but states the loss of this property, poor supports and other situational stressors are causing him increased depression. PER ED REPORT: PT is +SI with plan to jump from a bridge or shoot himself. PT states that he was having an anxiety attack which caused him to be SOB and he is also suicidal. 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 He also had his own home that he thinks was sold around the same time but that he also is confused about that sale. 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 PT states he did not take anything but that all of his belongings to include office supplies, files and machinery are still there. PT s peaks as if he still has use of both properties and that he continues to have belongings at both places. He cant seem to let the situation go but he admits has done no follow up in regards to getting clarity. PT lives in his own apartment that is subsidized and he has been there for two years. He attempts to assist another resident "Haris" but that is the only consistent relationship he currently has. PT has Hx of alcohol abuse and after months of sobriety he states he got intoxicated last week. PT has come close 2x to killing himself and both times he called a friend instead. He was admitted to [facility] 03/2020 after self-presenting to [facility] with SI. When he was d/c he attended an intake appointment 04/07 at [facility] Outpatient but is unclear why there were no other appointments. PT states that he has access to guns "They are in the warehouse" but admits he has not seen them in the two years since the building was sold. "I don't feel safe from myself right now" when being discharged is discussed. PT discovered a friend after they had committed suicide many years ago and PT went inpatient as a result. He states his current SI can be intense and he cannot CFS. PT is O2 dependent and has complaints of numbness in his feet so he has been utilizing a wheelchair. He is aware that [facility] is at capacity and that he will need to be transferred. It is not clear if PT is truly confused with m chastity lapses or delusional in regards to family business sales and the properties. VITAL SIGNS: See below. CURRENT MEDICATIONS: See below. 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, , male, who reports reports that he has had suicidal thoughts for a long time General Appearance: disheveled, ds/not appear stated age (older), hospital scubs/clothing Build: thin Demeanor: average Eye Contact: average Activity: average Behavior: cooperative Speech: clear, slow rate, tone ad volume Mood: depressed, anxious Affect: constricted Thought Process: logical/linear Thought Content (Delusions): less grandiose, paranoia Thought Content (Other): none reported Thought Content (Aggressive): none reported Perception (Hallucinations): none reported Perception (Other): none reported Cognition (Impairment of): none reported Cognition(Intelligence Est.): average Oriented: Awake, Alert, Oriented times three Insight: fair Judgment: Fair Psychosis: Denies DIAGNOSES: Major Depressive Disorder, Recurrent, Moderate Nicotine Use Disorder Asthma COPD Hernia ASSESSMENT: Patient on 1:1 observations for oxygen, unsteady gait. Patient continues to have depression and states he does not have suicidal thoughts during the interview. Patient is observed to be having racing thoughts. States he doesn't know why he was admitted to this facility vs being sent to a different hospital, focused on his medications, feels that he is not getting all of his medications but can't review his medications but brought all the bottles in. Spoke to Primary RN to verify medications vs if patient is missing medications. MANAGEMENT PLAN: Continue all medications TIME SPENT: 35 minutes. Vital Signs Vital Signs Date Time Temp Pulse Resp B/P (MAP) Pulse Ox O2 Delivery O2 Flow Rate FiO2 05/15/20 08:06 98.4 62 16 128/84 (99) 98 Room Air 05/14/20 11:34 4.0 Current Medications Current Medications Medications (Trade) Dose Ordered Sig/Rey Route PRN Reason Start Time Stop Time Status Last Admin Dose Admin Acetaminophen (Tylenol Tab) 650 mg Q6HP PRN PO HEADACHE or DISCOMFORT 05/14/20 09:25 05/14/20 18:23 DC Acetaminophen (Tylenol Tab) 1,000 mg Q6H PRN PO PAIN 05/14/20 17:45 Al Hydrox/Mg Hydrox/Simethicone (Mylanta) 30 ml Q4HP PRN PO HEARTBURN/INDIGESTION 05/14/20 09:25 Albuterol Sulfate (Proventil, Ventolin Hfa) 2 puff Q4H PRN INH SHORTNESS OF BREATH 05/14/20 17:45 Albuterol/ Ipratropium (Combivent Respimat 100-20mcg) 1 puff Q6H INH 05/13/20 18:10 05/13/20 18:12 DC Albuterol/ Ipratropium (Combivent Respimat 100-20mcg) 1 puff RQ6H INH 05/13/20 20:00 05/14/20 18:11 DC 05/14/20 14:12 Amlodipine Besylate (Norvasc) 5 mg DAILY PO 05/15/20 09:00 05/15/20 07:52 Artificial Tears (Akwa Tears) 1 drop QID PRN OU DRY EYES 05/14/20 17:45 05/15/20 10:15 DC Artificial Tears (Akwa Tears) 2 drop QIDP PRN OU DRY EYES 05/15/20 10:15 Aspirin (Ecotrin) 81 mg DAILY PO 05/15/20 09:00 05/15/20 07:51 Atorvastatin Calcium (Lipitor) 10 mg DAILY PO 05/15/20 09:00 05/15/20 07:53 Buspirone HCl (Buspar) 15 mg BID PO 05/14/20 21:00 05/15/20 07:51 Cetirizine HCl (ZyrTEC) 5 mg QAM PO 05/15/20 09:00 05/15/20 07:53 Cyanocobalamin (Vitamin B12) 1,000 mcg DAILY PO 05/15/20 09:00 05/15/20 07:53 Epinephrine HCl (Adrenalin) 0.3 mg ASDIRECTED PRN INJ ANAPHYLAXIS 05/14/20 17:45 Folic Acid (Folic Acid) 1 mg DAILY PO 05/15/20 09:00 05/15/20 07:51 Gabapentin (Neurontin) 100 mg BID PO 05/14/20 21:00 05/15/20 07:52 Guaifenesin (Mucinex Tab Er) 600 mg BID PRN PO CONGESTION 05/14/20 17:45 Home Med (Med Rec Complete!) ASDIRECTED XX 05/14/20 08:05 05/14/20 08:04 DC Hydroxyzine HCl (Atarax) 25 mg TID PRN PO ITCHING 05/14/20 17:45 Magnesium Hydroxide (Milk Of Magnesia) 30 ml DAILYPRN PRN PO CONSTIPATION 05/14/20 09:25 Magnesium Oxide (Mag-Ox) 400 mg DAILY PO 05/15/20 09:00 05/15/20 07:52 Montelukast Sodium (Singulair) 10 mg DAILY PO 05/15/20 09:00 05/15/20 07:52 Multivitamins (Theragram-M) 1 tab DAILY PO 05/15/20 09:00 05/15/20 07:51 Olopatadine HCl (Patanol) 1 drop BID PRN OU ITCHING 05/14/20 17:45 Oxybutynin Chloride (Ditropan Xl) 5 mg DAILY PO 05/15/20 09:00 05/15/20 07:51 Pantoprazole Sodium (Protonix) 40 mg DAILY PO 05/15/20 09:00 05/15/20 07:52 Salmeterol Xinafoate/ Fluticasone (Advair Hfa ) 2 puff RBID INH 05/14/20 20:00 05/15/20 07:50 Thiamine HCl (Thiamine HCl) 100 mg DAILY PO 05/15/20 09:00 05/15/20 07:53 Tiotropium [place] (Spiriva Handihaler) 1 inhalation DAILY@08 INH 05/15/20 08:00 05/15/20 07:51 Trazodone HCl (Desyrel) 50 mg QHS PRN PO SLEEP 05/14/20 17:45 05/14/20 20:30 Trazodone HCl (Desyrel) 50 mg QHSP PRN PO INSOMNIA 05/14/20 09:25 05/14/20 18:23 DC Allergies Coded Allergies: ROMULO Inhibitors (Verified Allergy, Severe, ANGIOEDEMA, 11/26/19) azithromycin (Verified Allergy, Severe, ANAPHYLAXIS, 11/26/19) oseltamivir (Verified Allergy, Severe, ANAPHYLAXIS, 11/26/19) latex (Verified Allergy, Intermediate, HIVES, EDEMA, 01/29/20) SEASONAL ALLERGIES (Verified Allergy, Unknown, 11/26/19) JANINE LOERA NP May 15, 2020 14:27
[2020-05-15 16:22] VITALS: BP 120/73
[2020-05-15] MEDS: traZODone 50 MG TAB PO PRN (21:04)
[2020-05-16 06:31] VITALS: BP 111/56
[2020-05-16] MEDS: ADVAIR HFA 230/21MCG INHALER INH SCH ×2 (08:37→21:21)
[2020-05-16] MEDS: TIOTROPIUM INHALER/CAPSULE (SPIRIVA) INH SCH (08:37)
[2020-05-16] MEDS: GABAPENTIN 100 MG CAP PO SCH ×2 (08:41→21:20)
[2020-05-16] MEDS: MAGNESIUM OXIDE 400MG TAB (MAG-OX) PO SCH (08:41)
[2020-05-16] MEDS: MONTELUKAST 10 MG TAB PO SCH (08:41)
[2020-05-16] MEDS: busPIRone 5 MG TAB PO SCH ×2 (08:41→21:21)
[2020-05-16] MEDS: amLODIPine 5 MG TAB PO SCH (08:41)
[2020-05-16] MEDS: FOLIC ACID 1 MG TAB PO SCH (08:41)
[2020-05-16] MEDS: THIAMINE 100 MG TAB PO SCH (08:41)
[2020-05-16] MEDS: PANTOPRAZOLE 40MG TAB (PROTONIX) PO SCH (08:41)
[2020-05-16] MEDS: ATORVASTATIN 10 MG TAB PO SCH (08:41)
[2020-05-16] MEDS: CYANOCOBALAMIN 500 MCG TAB PO SCH (08:41)
[2020-05-16] MEDS: ASPIRIN 81MG ENTERIC TABLET PO SCH (08:41)
[2020-05-16] MEDS: PILL CUTTER 1 EACH XX PRN (08:42)
[2020-05-16] MEDS: MULTIVITAMINS/MINERALS THERAP 1 TAB PO SCH (08:42)
[2020-05-16] MEDS: oxyBUTYnin *DITROPAN XL* 5 MG TABCR PO SCH (08:42)
[2020-05-16] MEDS: CETIRIZINE (ZyrTEC) 10 MG TAB PO SCH (08:42)
--- NOTE | 2020-05-16 12:41 | MHIPNPDOC ---
[facility] Progress Note Progress Note DATE OF SERVICE: 05/16/20 HISTORY: PER ED REPORT: PT is +SI with plan to jump from a bridge or shoot himself. PT states that he was having an anxiety attack which caused him to be SOB and he is also suicidal. 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 He also had his own home that he thinks was sold around the same time but that he also is confused about that sale. 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 PT states he did not take anything but that all of his belongings to include office supplies, files and machinery are still there. PT speaks as if he still has use of both properties and that he continues to have belongings at both places. He cant seem to let the situation go but he admits has done no follow up in regards to getting clarity. PT lives in his own apartment that is subsidized and he has been there for two years. He attempts to assist another resident "Haris" but that is the only consistent relationship he currently has. PT has Hx of alcohol abuse and after months of sobriety he states he got intoxicated last week. PT has come close 2x to killing himself and both times he called a friend instead. He was admitted to [facility] 03/2020 after self-presenting to [facility] with SI. When he was d/c he attended an intake appointment 04/07 at [facility] Outpatient but is unclear why there were no other appointments. PT states that he has access to guns "They are in the warehouse" but admits he has not seen them in the two years since the building was sold. "I don't feel safe from myself right now" when being discharged is discussed. PT discovered a friend after they had committed suicide many years ago and PT went inpatient as a result. He states his current SI can be intense and he cannot CFS. PT is O2 dependent and has complaints of numbness in his feet so he has been utilizing a wheelchair. He is aware that [facility] is at capacity and that he will need to be transferred. It is not clear if PT is truly confused with memory lapses or delusional in regards to family business sales and the properties. My interview with the patient. Patient states he came here, but was quite kd nging to get information in that he wanted specific questions. He came here with severe neuropathy and abdominal hernia. He missed states that he has gallbladder issues, but he states things are "mumbling against once again to talk about his and he and their split the money they had raised for [place]. 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 It was quite difficult to get him to be specific as to why he was admitted finally he agreed that he had had a history of suicide ideation and a history of outpatient treatment. His speech was rapid, tangential and circular. VITAL SIGNS: See below. NEW TEST RESULTS: None. CURRENT MEDICATIONS: See below. MENTAL STATUS EXAMINATION: Patient is a 55-year old male, who is, admitted with numerous complaints, rapid speech and tangential thinking. Speech: Is rapid. Language skills are intact. Thought processes including:. His medical issues and it is quite difficult to get him to discuss his psychiatric issues as he speaks and circular style and tangential as well as finding that he does not want to answer direct questions Thought content: As above. Abstract reasoning, and computation: Able to abstract. Description of associations: Some loose association. Description of abnormal or psychotic thoughts:, Possibly psychotic thought abnormal thought regarding his ability to tell a clear story. His business crumbling is questionable as to then why he is now in the position he is in financially and in house. Judgment:, Poor. Insight:, Limited. Orientation: 3. Recent and remote memory: Intact. Attention span and concentration: Intact. Language:. No disturbance. Fund of knowledge: Reasonable. Mood: Euthymic. Affect:, Congruent. DIAGNOSES: 1., Rule out bipolar disorder. 2.. Alcohol abuse. 3., None. ASSESSMENT: As above MANAGEMENT PLAN:. Further examination. TIME SPENT: 30 minutes. Vital Signs Vital Signs Date Time Temp Pulse Resp B/P (MAP) Pulse Ox O2 Delivery O2 Flow Rate FiO2 05/16/20 08:41 62 123/72 05/16/20 06:31 98.0 18 99 Nasal Cannula 4.0 Current Medications Current Medications Medications (Trade) Dose Ordered Sig/Rey Route PRN Reason Start Time Stop Time Status Last Admin Dose Admin Acetaminophen (Tylenol Tab) 650 mg Q6HP PRN PO HEADACHE or DISCOMFORT 05/14/20 09:25 05/14/20 18:23 DC Acetaminophen (Tylenol Tab) 1,000 mg Q6H PRN PO PAIN 05/14/20 17:45 Al Hydrox/Mg Hydrox/Simethicone (Mylanta) 30 ml Q4HP PRN PO HEARTBURN/INDIGESTION 05/14/20 09:25 Albuterol Sulfate (Proventil, Ventolin Hfa) 2 puff Q4H PRN INH SHORTNESS OF BREATH 05/14/20 17:45 Albuterol/ Ipratropium (Combivent Respimat 100-20mcg) 1 puff Q6H INH 05/13/20 18:10 05/13/20 18:12 DC Albuterol/ Ipratropium (Combivent Respimat 100-20mcg) 1 puff RQ6H INH 05/13/20 20:00 05/14/20 18:11 DC 05/14/20 14:12 Amlodipine Besylate (Norvasc) 5 mg DAILY PO 05/15/20 09:00 05/16/20 08:41 Artificial Tears (Akwa Tears) 1 drop QID PRN OU DRY EYES 05/14/20 17:45 05/15/20 10:15 DC Artificial Tears (Akwa Tears) 2 drop QIDP PRN OU DRY EYES 05/15/20 10:15 Aspirin (Ecotrin) 81 mg DAILY PO 05/15/20 09:00 05/16/20 08:41 Atorvastatin Calcium (Lipitor) 10 mg DAILY PO 05/15/20 09:00 05/16/20 08:41 Buspirone HCl (Buspar) 15 mg BID PO 05/14/20 21:00 05/16/20 08:41 Cetirizine HCl (ZyrTEC) 5 mg QAM PO 05/15/20 09:00 05/16/20 08:42 Cyanocobalamin (Vitamin B12) 1,000 mcg DAILY PO 05/15/20 09:00 05/16/20 08:41 Epinephrine HCl (Adrenalin) 0.3 mg ASDIRECTED PRN INJ ANAPHYLAXIS 05/14/20 17:45 Folic Acid (Folic Acid) 1 mg DAILY PO 05/15/20 09:00 05/16/20 08:41 Gabapentin (Neurontin) 100 mg BID PO 05/14/20 21:00 05/16/20 08:41 Guaifenesin (Mucinex Tab Er) 600 mg BID PRN PO CONGESTION 05/14/20 17:45 Home Med (Med Rec Complete!) ASDIRECTED XX 05/14/20 08:05 05/14/20 08:04 DC Hydroxyzine HCl (Atarax) 25 mg TID PRN PO ITCHING 05/14/20 17:45 Magnesium Hydroxide (Milk Of Magnesia) 30 ml DAILYPRN PRN PO CONSTIPATION 05/14/20 09:25 Magnesium Oxide (Mag-Ox) 400 mg DAILY PO 05/15/20 09:00 05/16/20 08:41 Montelukast Sodium (Singulair) 10 mg DAILY PO 05/15/20 09:00 05/16/20 08:41 Multivitamins (Theragram-M) 1 tab DAILY PO 05/15/20 09:00 05/16/20 08:42 Olopatadine HCl (Patanol) 1 drop BID PRN OU ITCHING 05/14/20 17:45 Oxybutynin Chloride (Ditropan Xl) 5 mg DAILY PO 05/15/20 09:00 05/16/20 08:42 Pantoprazole Sodium (Protonix) 40 mg DAILY PO 05/15/20 09:00 05/16/20 08:41 Salmeterol Xinafoate/ Fluticasone (Advair Hfa 230/ ) 2 puff RBID INH 05/14/20 20:00 05/16/20 08:37 Thiamine HCl (Thiamine HCl) 100 mg DAILY PO 05/15/20 09:00 05/16/20 08:41 Tiotropium [place] (Spiriva Handihaler) 1 inhalation DAILY@08 INH 05/15/20 08:00 05/16/20 08:37 Trazodone HCl (Desyrel) 50 mg QHS PRN PO SLEEP 05/14/20 17:45 05/15/20 21:04 Trazodone HCl (Desyrel) 50 mg QHSP PRN PO INSOMNIA 05/14/20 09:25 05/14/20 18:23 DC Allergies Coded Allergies: ROMULO Inhibitors (Verified Allergy, Severe, ANGIOEDEMA, 11/26/19) azithromycin (Verified Allergy, Severe, ANAPHYLAXIS, 11/26/19) oseltamivir (Verified Allergy, Severe, ANAPHYLAXIS, 11/26/19) latex (Verified Allergy, Intermediate, HIVES, EDEMA, 01/29/20) SEASONAL ALLERGIES (Verified Allergy, Unknown, 11/26/19) ILIA RAMIREZ MD May 16, 2020 12:41
[2020-05-16 16:15] VITALS: BP 129/76
[2020-05-16] MEDS: traZODone 50 MG TAB PO PRN (21:21)
[2020-05-17 06:28] VITALS: BP 116/58
[2020-05-17] MEDS: ADVAIR HFA 230/21MCG INHALER INH SCH ×2 (07:52→21:36)
[2020-05-17] MEDS: ASPIRIN 81MG ENTERIC TABLET PO SCH (07:53)
[2020-05-17] MEDS: MONTELUKAST 10 MG TAB PO SCH (07:53)
[2020-05-17] MEDS: MAGNESIUM OXIDE 400MG TAB (MAG-OX) PO SCH (07:53)
[2020-05-17] MEDS: GABAPENTIN 100 MG CAP PO SCH ×2 (07:53→21:36)
[2020-05-17] MEDS: PILL CUTTER 1 EACH XX PRN (07:53)
[2020-05-17] MEDS: busPIRone 5 MG TAB PO SCH ×2 (07:53→21:36)
[2020-05-17] MEDS: CYANOCOBALAMIN 500 MCG TAB PO SCH (07:54)
[2020-05-17] MEDS: CETIRIZINE (ZyrTEC) 10 MG TAB PO SCH (07:54)
[2020-05-17] MEDS: ATORVASTATIN 10 MG TAB PO SCH (07:54)
[2020-05-17] MEDS: TIOTROPIUM INHALER/CAPSULE (SPIRIVA) INH SCH (07:54)
[2020-05-17] MEDS: PANTOPRAZOLE 40MG TAB (PROTONIX) PO SCH (07:54)
[2020-05-17] MEDS: FOLIC ACID 1 MG TAB PO SCH (07:54)
[2020-05-17] MEDS: MULTIVITAMINS/MINERALS THERAP 1 TAB PO SCH (07:54)
[2020-05-17] MEDS: THIAMINE 100 MG TAB PO SCH (07:55)
[2020-05-17] MEDS: oxyBUTYnin *DITROPAN XL* 5 MG TABCR PO SCH (07:55)
[2020-05-17] MEDS: amLODIPine 5 MG TAB PO SCH (08:03)
--- NOTE | 2020-05-17 16:20 | MHIPNPDOC ---
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 "I did very well for many years and started a family, I got after I moved here and I had a successful and happy life. All things went as planned but we couldn't have a family. We had a beautiful house and boat." States his worked at the [employer] and raised money. 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 Patient ruminated quite a but about the success and fall of his business and feeling guilty about his employees. He ruminated about his successes with his house and water life. He states that when his father he was under the impression that the land would be given to him but his mother sold it. He stat es, "My equipment and personal belongings were still there and that bothered me that Ann-Marie sold it. I was furious - that triggered me - the world is crashing down because it was suppose to be willed to me. He reports that he has had suicidal thoughts for a long time, won't give a time line but states the loss of this property, poor supports and other situational stressors are causing him increased depression. PER ED REPORT: PT is +SI with plan to jump from a bridge or shoot himself. PT states that he was having an anxiety attack which caused him to be SOB and he is also suicidal. PT states that he and his family had owned a business in [place] for years and that his mother told him they sold it and he was had bee n told about it. He also had his own home that he thinks was sold around the same time but that he also is confused about that sale. 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 PT states he did not take anything but that all of his belongings to include office supplies, files and machinery are still there. PT speaks as if he still has use of both properties and that he continues to have belongings at both places. He cant seem to let the situation go but he admits has done no follow up in regards to getting clarity. PT lives in his own apartment that is subsidized and he has been there for two years. He attempts to assist another resident "Haris" but that is the only consistent relationship he currently has. PT has Hx of alcohol abuse and after months of sobriety he states he got intoxicated last week. PT has come close 2x to killing himself and both times he called a friend instead. He was admitted to [facility] 03/2020 after self-presenting to [facility] with SI. When he was d/c he attended an intake appointment 04/07 at [facility] Outpatient but is unclear why there were no other appointments. PT states that he has access to guns "They are in the warehouse" but admits he has not seen them in the two years since the building was sold. "I don't feel safe from myself right now" when being discharged is discussed. PT discovered a friend after they had committed suicide many years ago and PT went inpatient as a result. He states his current SI can be intense and he cannot CFS. PT is O2 dependent and has complaints of numbness in his feet so he has been utilizing a wheelchair. He is aware that [facility] is at capacity and that he will need to be transferred. It is not clear if PT is truly confused with memory lapses or delusional in regards to family business sales and the properti es. I requested he perform MMOCA test as he appears to be confabulating and has memory lapses VITAL SIGNS: See below. NEW TEST RESULTS: . CURRENT MEDICATIONS: See below. MENTAL STATUS EXAMINATION: Patient is a 55-year old male, who is superficially charming. Speech: Is no gross disturbance. Language skills are gross disturbance. Thought processes including: Oddly attempts to clarify questions without answering. Thought content: As above. Abstract reasoning, and computation:, Minimal. Description of associations:, No loose associations. Description of abnormal or psychotic thoughts:. Thoughts are abnormal, not necessarily psychotic. Judgment:, Poor. Insight:, Limited. Orientation: 3. Recent and remote memory: May be distorted. Attention span and concentration: Fair but memory deficits noted. Language:. No gross disturbance. Fund of knowledge: Reasonable. Mood: Euthymic. Affect: Congruent, inappropriate to his admission presentation. DIAGNOSES: 1. Major depression. 2., Rule out Korsakoff's dementia. 3. None. ASSESSMENT: As above MANAGEMENT PLAN:. Continue to assess. TIME SPENT: 25 minutes. Vital Signs Vital Signs Date Time Temp Pulse Resp B/P (MAP) Pulse Ox O2 Delivery O2 Flow Rate FiO2 05/17/20 08:03 71 122/69 05/17/20 06:28 98.5 16 98 05/16/20 16:15 Room Air 05/16/20 06:31 4.0 Current Medications Current Medications Medications (Trade) Dose Ordered Sig/Rey Route PRN Reason Start Time Stop Time Status Last Admin Dose Admin Acetaminophen (Tylenol Tab) 650 mg Q6HP PRN PO HEADACHE or DISCOMFORT 05/14/20 09:25 05/14/20 18:23 DC Acetaminophen (Tylenol Tab) 1,000 mg Q6H PRN PO PAIN 05/14/20 17:45 Al Hydrox/Mg Hydrox/Simethicone (Mylanta) 30 ml Q4HP PRN PO HEARTBURN/INDIGESTION 05/14/20 09:25 Albuterol Sulfate (Proventil, Ventolin Hfa) 2 puff Q4H PRN INH SHORTNESS OF BREATH 05/14/20 17:45 Albuterol/ Ipratropium (Combivent Respimat 100-20mcg) 1 puff Q6H INH 05/13/20 18:10 05/13/20 18:12 DC Albuterol/ Ipratropium (Combivent Respimat 100-20mcg) 1 puff RQ6H INH 05/13/20 20:00 05/14/20 18:11 DC 05/14/20 14:12 Amlodipine Besylate (Norvasc) 5 mg DAILY PO 05/15/20 09:00 05/17/20 08:03 Artificial Tears (Akwa Tears) 1 drop QID PRN OU DRY EYES 05/14/20 17:45 05/15/20 10:15 DC Artificial Tears (Akwa Tears) 2 drop QIDP PRN OU DRY EYES 05/15/20 10:15 Aspirin (Ecotrin) 81 mg DAILY PO 05/15/20 09:00 05/17/20 07:53 Atorvastatin Calcium (Lipitor) 10 mg DAILY PO 05/15/20 09:00 05/17/20 07:54 Buspirone HCl (Buspar) 15 mg BID PO 05/14/20 21:00 05/17/20 07:53 Cetirizine HCl (ZyrTEC) 5 mg QAM PO 05/15/20 09:00 05/17/20 07:54 Cyanocobalamin (Vitamin B12) 1,000 mcg DAILY PO 05/15/20 09:00 05/17/20 07:54 Epinephrine HCl (Adrenalin) 0.3 mg ASDIRECTED PRN INJ ANAPHYLAXIS 05/14/20 17:45 Folic Acid (Folic Acid) 1 mg DAILY PO 05/15/20 09:00 05/17/20 07:54 Gabapentin (Neurontin) 100 mg BID PO 05/14/20 21:00 05/17/20 07:53 Guaifenesin (Mucinex Tab Er) 600 mg BID PRN PO CONGESTION 05/14/20 17:45 Home Med (Med Rec Complete!) ASDIRECTED XX 05/14/20 08:05 05/14/20 08:04 DC Hydroxyzine HCl (Atarax) 25 mg TID PRN PO ITCHING 05/14/20 17:45 Magnesium Hydroxide (Milk Of Magnesia) 30 ml DAILYPRN PRN PO CONSTIPATION 05/14/20 09:25 Magnesium Oxide (Mag-Ox) 400 mg DAILY PO 05/15/20 09:00 05/17/20 07:53 Montelukast Sodium (Singulair) 10 mg DAILY PO 05/15/20 09:00 05/17/20 07:53 Multivitamins (Theragram-M) 1 tab DAILY PO 05/15/20 09:00 05/17/20 07:54 Olopatadine HCl (Patanol) 1 drop BID PRN OU ITCHING 05/14/20 17:45 Oxybutynin Chloride (Ditropan Xl) 5 mg DAILY PO 05/15/20 09:00 05/17/20 07:55 Pantoprazole Sodium (Protonix) 40 mg DAILY PO 05/15/20 09:00 05/17/20 07:54 Salmeterol Xinafoate/ Fluticasone (Advair Hfa ) 2 puff RBID INH 05/14/20 20:00 05/17/20 07:52 Thiamine HCl (Thiamine HCl) 100 mg DAILY PO 05/15/20 09:00 05/17/20 07:55 Tiotropium [place] (Spiriva Handihaler) 1 inhalation DAILY@08 INH 05/15/20 08:00 05/17/20 07:54 Trazodone HCl (Desyrel) 50 mg QHS PRN PO SLEEP 05/14/20 17:45 05/16/20 21:21 Trazodone HCl (Desyrel) 50 mg QHSP PRN PO INSOMNIA 05/14/20 09:25 05/14/20 18:23 DC Allergies Coded Allergies: ROMULO Inhibitors (Verified Allergy, Severe, ANGIOEDEMA, 11/26/19) azithromycin (Verified Allergy, Severe, ANAPHYLAXIS, 11/26/19) oseltamivir (Verified Allergy, Severe, ANAPHYLAXIS, 11/26/19) latex (Verified Allergy, Intermediate, HIVES, EDEMA, 01/29/20) SEASONAL ALLERGIES (Verified Allergy, Unknown, 11/26/19) ILIA RAMIREZ MD May 17, 2020 16:20
[2020-05-17 16:22] VITALS: BP 120/69
[2020-05-17] MEDS: traZODone 50 MG TAB PO PRN (21:36)
[2020-05-18] MEDS: MULTIVITAMINS/MINERALS THERAP 1 TAB PO SCH (08:19)
[2020-05-18] MEDS: PILL CUTTER 1 EACH XX PRN (08:19)
[2020-05-18] MEDS: busPIRone 5 MG TAB PO SCH ×2 (08:19→22:48)
[2020-05-18] MEDS: ATORVASTATIN 10 MG TAB PO SCH (08:19)
[2020-05-18] MEDS: oxyBUTYnin *DITROPAN XL* 5 MG TABCR PO SCH (08:19)
[2020-05-18] MEDS: CETIRIZINE (ZyrTEC) 10 MG TAB PO SCH (08:19)
[2020-05-18] MEDS: TIOTROPIUM INHALER/CAPSULE (SPIRIVA) INH SCH (08:19)
[2020-05-18] MEDS: PANTOPRAZOLE 40MG TAB (PROTONIX) PO SCH (08:19)
[2020-05-18] MEDS: GABAPENTIN 100 MG CAP PO SCH ×2 (08:20→22:48)
[2020-05-18] MEDS: ADVAIR HFA 230/21MCG INHALER INH SCH ×2 (08:20→22:48)
[2020-05-18] MEDS: CYANOCOBALAMIN 500 MCG TAB PO SCH (08:20)
[2020-05-18] MEDS: amLODIPine 5 MG TAB PO SCH (08:21)
[2020-05-18] MEDS: THIAMINE 100 MG TAB PO SCH (08:21)
[2020-05-18] MEDS: MAGNESIUM OXIDE 400MG TAB (MAG-OX) PO SCH (08:21)
[2020-05-18] MEDS: ASPIRIN 81MG ENTERIC TABLET PO SCH (08:21)
[2020-05-18] MEDS: FOLIC ACID 1 MG TAB PO SCH (08:21)
[2020-05-18] MEDS: MONTELUKAST 10 MG TAB PO SCH (08:25)
[2020-05-18] MEDS: CitaloPRAM (CeleXA) 20 MG TAB PO SCH (15:22)
--- NOTE | 2020-05-18 16:26 | MHIPNPDOC ---
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 "I did very well for many years and started a family, I got after I moved here and I had a successful and happy life. All things went as planned but we couldn't have a family. We had a beautiful house and boat." States his worked at the [employer] and raised money. 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 Patient ruminated quite a bit about the success and fall of his business and feeling guilty about his employees. He ruminated about his successes with his house and water life. He states that when his father he was under the impression that the land would be given to him but his mother sold it. He states, "My equipment and personal belongings were still there and that bothered me that Ann-Marie sold it. I was furious - that triggered me - the world is crashing down because it was supposed to be willed to me. He reports that he has had suicidal thoughts for a long time, won't give a time line but states the loss of this property, poor supports and other situational stressors are causing him increased depression. PER ED REPORT: PT is +SI with plan to jump from a bridge or shoot himself. PT states that he was having an anxiety attack which caused him to be SOB and he is also suicidal. PT states that he and his family had owned a business in [place] for years and that his mother told him they sold it and he was had been told about it. He also had his own home that he thinks was sold around the same time but that he also is confused about that sale. 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 PT states he did not take anything but that all of his belongings to include office supplies, files and machinery are still there. PT s peaks as if he still has use of both properties and that he continues to have belongings at both places. He cant seem to let the situation go but he admits has done no follow up in regards to getting clarity. PT lives in his own apartment that is subsidized and he has been there for two years. He attempts to assist another resident "Haris" but that is the only consistent relationship he currently has. PT has Hx of alcohol abuse and after months of sobriety he states he got intoxicated last week. PT has come close 2x to killing himself and both times he called a friend instead. He was admitted to [facility] 03/2020 after self-presenting to [facility] with SI. When he was d/c he attended an intake appointment 04/07 at [facility] Outpatient but is unclear why there were no other appointments. PT states that he has access to guns "They are in the warehouse" but admits he has not seen them in the two years since the building was sold. "I don't feel safe from myself right now" when being discharged is discussed. PT discovered a friend after they had committed suicide many years ago and PT went inpatient as a result. He states his current SI can be intense and he cannot CFS. PT is O2 dependent and has complaints of numbness in his feet so he has been utilizing a wheelchair. He is aware that [facility] is at capacity and that he will need to be transferred. It is not clear if PT is truly confused with m chastity lapses or delusional in regards to family business sales and the properties. VITAL SIGNS: See below. CURRENT MEDICATIONS: See below. MENTAL STATUS EXAMINATION: Speech: Is fluid, conversant, normal rate, tone and volume Language skills are intact Thought processes including: linear and goal oriented Thought content: denies depression and anxiety. Denies suicidal/homicidal ideation, planning or intent. Abstract reasoning, and computation: fair Description of associations: denies, none observed Description of abnormal or psychotic thoughts: denies, none observed. Judgment: fair Insight: fair Orientation: alert and oriented to person, place, time and situation Recent and remote memory: mostly intact Attention span and concentration: fair Language: expansive Fund of knowledge: average Mood: Depressed Mood Affect: Constricted DIAGNOSES: Major Depressive Disorder, Recurrent, Moderate Alcohol Use Disorder Nicotine Use Disorder Asthma COPD Hernia ASSESSMENT: Patient is reporting continued depression, anxiety about leaving including the stressors of housing, the property that his mother sold and also worrying about caring for his mother. He is less tangential and hyperverbal than in his last interview with this blurb writer. Patient denies current suicidal thinking but reports that it is fleeting. Does not feel that his depression has improved enough to be safe on the outside. Patient scored high on a Mood Disorder Questionnaire. Reviewed with patient medications options and he does not feel that he needs mood stabilizer, today he is observed with less energy, less tangential verbage but he still remains moderately grandiose about his life achievements. MANAGEMENT PLAN: Continue all medications, titrate Citalopram up to 40 mg. Patient does not feel that he needs a mood stabilizer. TIME SPENT: 40 minutes. Vital Signs Vital Signs Date Time Temp Pulse Resp B/P (MAP) Pulse Ox O2 Delivery O2 Flow Rate FiO2 05/18/20 08:21 63 122/69 05/17/20 16:22 98.9 16 98 05/16/20 16:15 Room Air 05/16/20 06:31 4.0 Current Medications Current Medications Medications (Trade) Dose Ordered Sig/Rey Route PRN Reason Start Time Stop Time Status Last Admin Dose Admin Acetaminophen (Tylenol Tab) 650 mg Q6HP PRN PO HEADACHE or DISCOMFORT 05/14/20 09:25 05/14/20 18:23 DC Acetaminophen (Tylenol Tab) 1,000 mg Q6H PRN PO PAIN 05/14/20 17:45 Al Hydrox/Mg Hydrox/Simethicone (Mylanta) 30 ml Q4HP PRN PO HEARTBURN/INDIGESTION 05/14/20 09:25 Albuterol Sulfate (Proventil, Ventolin Hfa) 2 puff Q4H PRN INH SHORTNESS OF BREATH 05/14/20 17:45 Albuterol/ Ipratropium (Combivent Respimat 100-20mcg) 1 puff Q6H INH 05/13/20 18:10 05/13/20 18:12 DC Albuterol/ Ipratropium (Combivent Respimat 100-20mcg) 1 puff RQ6H INH 05/13/20 20:00 05/14/20 18:11 DC 05/14/20 14:12 Amlodipine Besylate (Norvasc) 5 mg DAILY PO 05/15/20 09:00 05/18/20 08:21 Artificial Tears (Akwa Tears) 1 drop QID PRN OU DRY EYES 05/14/20 17:45 05/15/20 10:15 DC Artificial Tears (Akwa Tears) 2 drop QIDP PRN OU DRY EYES 05/15/20 10:15 Aspirin (Ecotrin) 81 mg DAILY PO 05/15/20 09:00 05/18/20 08:21 Atorvastatin Calcium (Lipitor) 10 mg DAILY PO 05/15/20 09:00 05/18/20 08:19 Buspirone HCl (Buspar) 15 mg BID PO 05/14/20 21:00 05/18/20 08:19 Cetirizine HCl (ZyrTEC) 5 mg QAM PO 05/15/20 09:00 05/18/20 08:19 Citalopram Hydrobromide (CeleXA) 20 mg DAILY PO 05/18/20 15:00 05/18/20 15:22 Cyanocobalamin (Vitamin B12) 1,000 mcg DAILY PO 05/15/20 09:00 05/18/20 08:20 Epinephrine HCl (Adrenalin) 0.3 mg ASDIRECTED PRN INJ ANAPHYLAXIS 05/14/20 17:45 Folic Acid (Folic Acid) 1 mg DAILY PO 05/15/20 09:00 05/18/20 08:21 Gabapentin (Neurontin) 100 mg BID PO 05/14/20 21:00 05/18/20 08:20 Guaifenesin (Mucinex Tab Er) 600 mg BID PRN PO CONGESTION 05/14/20 17:45 Home Med (Med Rec Complete!) ASDIRECTED XX 05/14/20 08:05 05/14/20 08:04 DC Hydroxyzine HCl (Atarax) 25 mg TID PRN PO ITCHING 05/14/20 17:45 Magnesium Hydroxide (Milk Of Magnesia) 30 ml DAILYPRN PRN PO CONSTIPATION 05/14/20 09:25 Magnesium Oxide (Mag-Ox) 400 mg DAILY PO 05/15/20 09:00 05/18/20 08:21 Montelukast Sodium (Singulair) 10 mg DAILY PO 05/15/20 09:00 05/18/20 08:25 Multivitamins (Theragram-M) 1 tab DAILY PO 05/15/20 09:00 05/18/20 08:19 Olopatadine HCl (Patanol) 1 drop BID PRN OU ITCHING 05/14/20 17:45 Oxybutynin Chloride (Ditropan Xl) 5 mg DAILY PO 05/15/20 09:00 05/18/20 08:19 Pantoprazole Sodium (Protonix) 40 mg DAILY PO 05/15/20 09:00 05/18/20 08:19 Salmeterol Xinafoate/ Fluticasone (Advair Hfa ) 2 puff RBID INH 05/14/20 20:00 05/18/20 08:20 Thiamine HCl (Thiamine HCl) 100 mg DAILY PO 05/15/20 09:00 05/18/20 08:21 Tiotropium [place] (Spiriva Handihaler) 1 inhalation DAILY@08 INH 05/15/20 08:00 05/18/20 08:19 Trazodone HCl (Desyrel) 50 mg QHS PRN PO SLEEP 05/14/20 17:45 05/17/20 21:36 Trazodone HCl (Desyrel) 50 mg QHSP PRN PO INSOMNIA 05/14/20 09:25 05/14/20 18:23 DC Allergies Coded Allergies: ROMULO Inhibitors (Verified Allergy, Severe, ANGIOEDEMA, 11/26/19) azithromycin (Verified Allergy, Severe, ANAPHYLAXIS, 11/26/19) oseltamivir (Verified Allergy, Severe, ANAPHYLAXIS, 11/26/19) latex (Verified Allergy, Intermediate, HIVES, EDEMA, 01/29/20) SEASONAL ALLERGIES (Verified Allergy, Unknown, 11/26/19) JANINE LOERA NP May 18, 2020 16:26
[2020-05-18 18:00] VITALS: BP 138/89
[2020-05-18] MEDS: traZODone 50 MG TAB PO PRN (22:48)
[2020-05-19 06:28] VITALS: BP 118/76
[2020-05-19] MEDS: ADVAIR HFA 230/21MCG INHALER INH SCH ×2 (08:20→20:57)
[2020-05-19] MEDS: oxyBUTYnin *DITROPAN XL* 5 MG TABCR PO SCH (08:21)
[2020-05-19] MEDS: PILL CUTTER 1 EACH XX PRN (08:21)
[2020-05-19] MEDS: CETIRIZINE (ZyrTEC) 10 MG TAB PO SCH (08:22)
[2020-05-19] MEDS: MONTELUKAST 10 MG TAB PO SCH (08:22)
[2020-05-19] MEDS: CYANOCOBALAMIN 500 MCG TAB PO SCH (08:22)
[2020-05-19] MEDS: ATORVASTATIN 10 MG TAB PO SCH (08:22)
[2020-05-19] MEDS: TIOTROPIUM INHALER/CAPSULE (SPIRIVA) INH SCH (08:25)
[2020-05-19] MEDS: amLODIPine 5 MG TAB PO SCH (08:26)
[2020-05-19] MEDS: MULTIVITAMINS/MINERALS THERAP 1 TAB PO SCH (08:27)
[2020-05-19] MEDS: PANTOPRAZOLE 40MG TAB (PROTONIX) PO SCH (08:27)
[2020-05-19] MEDS: GABAPENTIN 100 MG CAP PO SCH ×2 (08:27→20:58)
[2020-05-19] MEDS: ASPIRIN 81MG ENTERIC TABLET PO SCH (08:27)
[2020-05-19] MEDS: FOLIC ACID 1 MG TAB PO SCH (08:27)
[2020-05-19] MEDS: busPIRone 5 MG TAB PO SCH ×2 (08:27→20:58)
[2020-05-19] MEDS: MAGNESIUM OXIDE 400MG TAB (MAG-OX) PO SCH (08:27)
[2020-05-19] MEDS: THIAMINE 100 MG TAB PO SCH (08:27)
[2020-05-19] MEDS: CitaloPRAM (CeleXA) 20 MG TAB PO SCH (08:27)
[2020-05-19] MEDS: OLOPATADINE 0.1% OPHTH SOL 5ML(PATANOL) OU SCH ×2 (11:52→18:13)
--- NOTE | 2020-05-19 16:37 | MHIPNPDOC ---
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 "I did very well for many years and started a family, I got after I moved here and I had a successful and happy life. All things went as planned but we couldn't have a family. We had a beautiful house and boat." States his worked at the [employer] and raised money. 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 Patient ruminated quite a bit about the success and fall of his business and feeling guilty about his employees. He ruminated about his successes with his house and water life. He states that when his father he was under the impression that the land would be given to him but his mother sold it. He states, "My equipment and personal belongings were still there and that bothered me that Ann-Marie sold it. I was furious - that triggered me - the world is crashing down because it was supposed to be willed to me. He reports that he has had suicidal thoughts for a long time, won't give a time line but states the loss of this property, poor supports and other situational stressors are causing him increased depression. PER ED REPORT: PT is +SI with plan to jump from a bridge or shoot himself. PT states that he was having an anxiety attack which caused him to be SOB and he is also suicidal. PT states that he and his family had owned a business in [employer] for years and that his mother told him they sold it and he was had been told about it. He also had his own home that he thinks was sold around the same time but that he also is confused about that sale. 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 PT states he did not take anything but that all of his belongings to include office supplies, files and machinery are still there. PT s peaks as if he still has use of both properties and that he continues to have belongings at both places. He cant seem to let the situation go but he admits has done no follow up in regards to getting clarity. PT lives in his own apartment that is subsidized and he has been there for two years. He attempts to assist another resident "Haris" but that is the only consistent relationship he currently has. PT has Hx of alcohol abuse and after months of sobriety he states he got intoxicated last week. PT has come close 2x to killing himself and both times he called a friend instead. He was admitted to [facility] 03/2020 after self-presenting to [facility] with SI. When he was d/c he attended an intake appointment 04/07 at [facility] Outpatient but is unclear why there were no other appointments. PT states that he has access to guns "They are in the warehouse" but admits he has not seen them in the two years since the building was sold. "I don't feel safe from myself right now" when being discharged is discussed. PT discovered a friend after they had committed suicide many years ago and PT went inpatient as a result. He states his current SI can be intense and he cannot CFS. PT is O2 dependent and has complaints of numbness in his feet so he has been utilizing a wheelchair. He is aware that [facility] is at capacity and that he will need to be transferred. It is not clear if PT is truly confused with m chastity lapses or delusional in regards to family business sales and the properties. VITAL SIGNS: See below. CURRENT MEDICATIONS: See below. MENTAL STATUS EXAMINATION: Speech: Is fluid, low rate, tone and volume Language skills are intact Thought processes including: linear and goal oriented Thought content: reports continued depression and anxiety. decreased suicidal ideation, no planning or intent. Abstract reasoning, and computation: fair Description of associations: denies, none observed Description of abnormal or psychotic thoughts: denies, none observed. Judgment: fair Insight: fair Orientation: alert and oriented to person, place, time and situation Recent and remote memory: mostly intact Attention span and concentration: fair Language: expansive Fund of knowledge: average Mood: Depressed Mood Affect: Constricted DIAGNOSES: Unspecified Bipolar Disorder Alcohol Use Disorder Nicotine Use Disorder Asthma COPD Hernia ASSESSMENT: Patient states that he has pain in his feet due to recently diagnosed with neuropathy in feet. Has possible herniated disc/back problems that is causing this. He reports that he has numbness and pain in his feet. He is requesting his shoes for ambulation. Patient is continued on 1:1 due to oxygen use. Reports 5/10 depression but reports incrementally feeling better. He states that he doesn't feel like himself as he still has no motivation. Focused on Housing issues, [facility] assistance being terminated, wants to have contact name at [facility] and would like to research his ability to qualift for senior housing at [place]. Reports fleeting suicidal ideation, but decreasing. He appears to be moderately grandiose in his conversations. Appears superficial many times in the interview. MANAGEMENT PLAN: Continue all medications, titrate Citalopram up to 40 mg. TIME SPENT: 25 minutes. Vital Signs Vital Signs Date Time Temp Pulse Resp B/P (MAP) Pulse Ox O2 Delivery O2 Flow Rate FiO2 05/19/20 08:26 69 118/76 05/19/20 06:28 98.7 16 99 Nasal Cannula 05/16/20 06:31 4.0 Current Medications Current Medications Medications (Trade) Dose Ordered Sig/Rey Route PRN Reason Start Time Stop Time Status Last Admin Dose Admin Acetaminophen (Tylenol Tab) 650 mg Q6HP PRN PO HEADACHE or DISCOMFORT 05/14/20 09:25 05/14/20 18:23 DC Acetaminophen (Tylenol Tab) 1,000 mg Q6H PRN PO PAIN 05/14/20 17:45 Al Hydrox/Mg Hydrox/Simethicone (Mylanta) 30 ml Q4HP PRN PO HEARTBURN/INDIGESTION 05/14/20 09:25 Albuterol Sulfate (Proventil, Ventolin Hfa) 2 puff Q4H PRN INH SHORTNESS OF BREATH 05/14/20 17:45 Albuterol/ Ipratropium (Combivent Respimat 100-20mcg) 1 puff Q6H INH 05/13/20 18:10 05/13/20 18:12 DC Albuterol/ Ipratropium (Combivent Respimat 100-20mcg) 1 puff RQ6H INH 05/13/20 20:00 05/14/20 18:11 DC 05/14/20 14:12 Amlodipine Besylate (Norvasc) 5 mg DAILY PO 05/15/20 09:00 05/19/20 08:26 Artificial Tears (Akwa Tears) 1 drop QID PRN OU DRY EYES 05/14/20 17:45 05/15/20 10:15 DC Artificial Tears (Akwa Tears) 2 drop QIDP PRN OU DRY EYES 05/15/20 10:15 Aspirin (Ecotrin) 81 mg DAILY PO 05/15/20 09:00 05/19/20 08:27 Atorvastatin Calcium (Lipitor) 10 mg DAILY PO 05/15/20 09:00 05/19/20 08:22 Buspirone HCl (Buspar) 15 mg BID PO 05/14/20 21:00 05/19/20 08:27 Cetirizine HCl (ZyrTEC) 5 mg QAM PO 05/15/20 09:00 05/19/20 08:22 Citalopram Hydrobromide (CeleXA) 20 mg DAILY PO 05/18/20 15:00 05/19/20 08:27 Cyanocobalamin (Vitamin B12) 1,000 mcg DAILY PO 05/15/20 09:00 05/19/20 08:22 Epinephrine HCl (Adrenalin) 0.3 mg ASDIRECTED PRN INJ ANAPHYLAXIS 05/14/20 17:45 Folic Acid (Folic Acid) 1 mg DAILY PO 05/15/20 09:00 05/19/20 08:27 Gabapentin (Neurontin) 100 mg BID PO 05/14/20 21:00 05/19/20 08:27 Guaifenesin (Mucinex Tab Er) 600 mg BID PRN PO CONGESTION 05/14/20 17:45 Home Med (Med Rec Complete!) ASDIRECTED XX 05/14/20 08:05 05/14/20 08:04 DC Hydroxyzine HCl (Atarax) 25 mg TID PRN PO ITCHING 05/14/20 17:45 Magnesium Hydroxide (Milk Of Magnesia) 30 ml DAILYPRN PRN PO CONSTIPATION 05/14/20 09:25 Magnesium Oxide (Mag-Ox) 400 mg DAILY PO 05/15/20 09:00 05/19/20 08:27 Montelukast Sodium (Singulair) 10 mg DAILY PO 05/15/20 09:00 05/19/20 08:22 Multivitamins (Theragram-M) 1 tab DAILY PO 05/15/20 09:00 05/19/20 08:27 Olopatadine HCl (Patanol) 1 drop BID PRN OU ITCHING 05/14/20 17:45 05/19/20 10:35 DC Olopatadine HCl (Patanol) 1 drop BID@09,17 OU 05/19/20 09:00 05/19/20 11:52 Oxybutynin Chloride (Ditropan Xl) 5 mg DAILY PO 05/15/20 09:00 05/19/20 08:21 Pantoprazole Sodium (Protonix) 40 mg DAILY PO 05/15/20 09:00 05/19/20 08:27 Salmeterol Xinafoate/ Fluticasone (Advair Hfa 230/ 21) 2 puff RBID INH 05/14/20 20:00 05/19/20 08:20 Thiamine HCl (Thiamine HCl) 100 mg DAILY PO 05/15/20 09:00 05/19/20 08:27 Tiotropium [place] (Spiriva Handihaler) 1 inhalation DAILY@08 INH 05/15/20 08:00 05/19/20 08:25 Trazodone HCl (Desyrel) 50 mg QHS PRN PO SLEEP 05/14/20 17:45 05/18/20 22:48 Trazodone HCl (Desyrel) 50 mg QHSP PRN PO INSOMNIA 05/14/20 09:25 05/14/20 18:23 DC Allergies Coded Allergies: ROMULO Inhibitors (Verified Allergy, Severe, ANGIOEDEMA, 11/26/19) azithromycin (Verified Allergy, Severe, ANAPHYLAXIS, 11/26/19) oseltamivir (Verified Allergy, Severe, ANAPHYLAXIS, 11/26/19) latex (Verified Allergy, Intermediate, HIVES, EDEMA, 01/29/20) SEASONAL ALLERGIES (Verified Allergy, Unknown, 11/26/19) JANINE LOERA NP May 19, 2020 14:31
[2020-05-19 17:07] VITALS: BP 123/72
[2020-05-19] MEDS: traZODone 50 MG TAB PO PRN (20:58)
[2020-05-20 06:38] VITALS: BP 110/55
[2020-05-20] MEDS: TIOTROPIUM INHALER/CAPSULE (SPIRIVA) INH SCH (08:23)
[2020-05-20] MEDS: ADVAIR HFA 230/21MCG INHALER INH SCH ×2 (08:23→21:38)
[2020-05-20] MEDS: OLOPATADINE 0.1% OPHTH SOL 5ML(PATANOL) OU SCH ×2 (08:24→18:25)
[2020-05-20] MEDS: oxyBUTYnin *DITROPAN XL* 5 MG TABCR PO SCH (08:24)
[2020-05-20] MEDS: MULTIVITAMINS/MINERALS THERAP 1 TAB PO SCH (08:25)
[2020-05-20] MEDS: CitaloPRAM (CeleXA) 20 MG TAB PO SCH (08:25)
[2020-05-20] MEDS: THIAMINE 100 MG TAB PO SCH (08:25)
[2020-05-20] MEDS: MONTELUKAST 10 MG TAB PO SCH (08:25)
[2020-05-20] MEDS: CETIRIZINE (ZyrTEC) 10 MG TAB PO SCH (08:25)
[2020-05-20] MEDS: ATORVASTATIN 10 MG TAB PO SCH (08:25)
[2020-05-20] MEDS: CYANOCOBALAMIN 500 MCG TAB PO SCH (08:26)
[2020-05-20] MEDS: GABAPENTIN 100 MG CAP PO SCH ×2 (08:26→20:17)
[2020-05-20] MEDS: amLODIPine 5 MG TAB PO SCH (08:26)
[2020-05-20] MEDS: busPIRone 5 MG TAB PO SCH ×2 (08:27→20:17)
[2020-05-20] MEDS: PANTOPRAZOLE 40MG TAB (PROTONIX) PO SCH (08:27)
[2020-05-20] MEDS: MAGNESIUM OXIDE 400MG TAB (MAG-OX) PO SCH (08:28)
[2020-05-20] MEDS: ASPIRIN 81MG ENTERIC TABLET PO SCH (08:28)
[2020-05-20] MEDS: FOLIC ACID 1 MG TAB PO SCH (08:28)
--- NOTE | 2020-05-20 17:09 | MHIPNPDOC ---
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 "I did very well for many years and started a family, I got after I moved here and I had a successful and happy life. All things went as planned but we couldn't have a family. We had a beautiful house and boat." States his worked at the [employer] and raised money. 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 Patient ruminated quite a bit about the success and fall of his business and feeling guilty about his employees. He ruminated about his successes with his house and water life. He states that when his father he was under the impression that the land would be given to him but his mother sold it. He states, "My equipment and personal belongings were still there and that bothered me that Ann-Mraie sold it. I was furious - that triggered me - the world is crashing down because it was supposed to be willed to me. He reports that he has had suicidal thoughts for a long time, won't give a time line but states the loss of this property, poor supports and other situational stressors are causing him increased depression. PER ED REPORT: PT is +SI with plan to jump from a bridge or shoot himself. PT states that he was having an anxiety attack which caused him to be SOB and he is also suicidal. 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 He also had his own home that he thinks was sold around the same time but that he also is confused about that sale. 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 PT states he did not take anything but that all of his belongings to include office supplies, files and machinery are still there. PT s peaks as if he still has use of both properties and that he continues to have belongings at both places. He cant seem to let the situation go but he admits has done no follow up in regards to getting clarity. PT lives in his own apartment that is subsidized and he has been there for two years. He attempts to assist another resident "Haris" but that is the only consistent relationship he currently has. PT has Hx of alcohol abuse and after months of sobriety he states he got intoxicated last week. PT has come close 2x to killing himself and both times he called a friend instead. He was admitted to [facility] 03/2020 after self-presenting to [facility] with SI. When he was d/c he attended an intake appointment 04/07 at [facility] Outpatient but is unclear why there were no other appointments. PT states that he has access to guns "They are in the warehouse" but admits he has not seen them in the two years since the building was sold. "I don't feel safe from myself right now" when being discharged is discussed. PT discovered a friend after they had committed suicide many years ago and PT went inpatient as a result. He states his current SI can be intense and he cannot CFS. PT is O2 dependent and has complaints of numbness in his feet so he has been utilizing a wheelchair. He is aware that [facility] is at capacity and that he will need to be transferred. It is not clear if PT is truly confused with m chastity lapses or delusional in regards to family business sales and the properties. VITAL SIGNS: See below. CURRENT MEDICATIONS: See below. MENTAL STATUS EXAMINATION: Speech: Is fluid, conversant, normal rate, tone and volume Language skills are intact Thought processes including: linear and goal oriented Thought content: reports continued depression and anxiety. decreased suicidal ideation, no planning or intent. Abstract reasoning, and computation: fair Description of associations: denies, none observed Description of abnormal or psychotic thoughts: denies, none observed. Judgment: fair Insight: fair Orientation: alert and oriented to person, place, time and situation Recent and remote memory: mostly intact Attention span and concentration: fair Language: expansive Fund of knowledge: average Mood: Depressed Mood Affect: Constricted DIAGNOSES: Unspecified Bipolar Disorder Alcohol Use Disorder Nicotine Use Disorder Asthma COPD Hernia ASSESSMENT: Patient is alert and oriented, he is cooperative with the treatment modalities and appears to be improving. Patient's Citalopram will increased tomorrow and will monitor for any adverse effects and will discharge on Monday. Patient has reported that at times he has complaints of abdominal pain on right side. States that he has a Hernia, was suppose to have a CT scan ordered by PCP but due to his being admitted to psychiatry has not seen his PCP. Alerted the Primary RN regarding patient's complaints. MANAGEMENT PLAN: Continue all medications, titrated Citalopram up to 40 mg. TIME SPENT: 25 minutes. Vital Signs Vital Signs Date Time Temp Pulse Resp B/P (MAP) Pulse Ox O2 Delivery O2 Flow Rate FiO2 05/20/20 08:26 65 110/55 05/20/20 06:38 98.3 20 98 Nasal Cannula 4.0 Current Medications Current Medications Medications (Trade) Dose Ordered Sig/Rey Route PRN Reason Start Time Stop Time Status Last Admin Dose Admin Acetaminophen (Tylenol Tab) 650 mg Q6HP PRN PO HEADACHE or DISCOMFORT 05/14/20 09:25 05/14/20 18:23 DC Acetaminophen (Tylenol Tab) 1,000 mg Q6H PRN PO PAIN 05/14/20 17:45 Al Hydrox/Mg Hydrox/Simethicone (Mylanta) 30 ml Q4HP PRN PO HEARTBURN/INDIGESTION 05/14/20 09:25 Albuterol Sulfate (Proventil, Ventolin Hfa) 2 puff Q4H PRN INH SHORTNESS OF BREATH 05/14/20 17:45 Albuterol/ Ipratropium (Combivent Respimat 100-20mcg) 1 puff Q6H INH 05/13/20 18:10 05/13/20 18:12 DC Albuterol/ Ipratropium (Combivent Respimat 100-20mcg) 1 puff RQ6H INH 05/13/20 20:00 05/14/20 18:11 DC 05/14/20 14:12 Amlodipine Besylate (Norvasc) 5 mg DAILY PO 05/15/20 09:00 05/20/20 08:26 Artificial Tears (Akwa Tears) 1 drop QID PRN OU DRY EYES 05/14/20 17:45 05/15/20 10:15 DC Artificial Tears (Akwa Tears) 2 drop QIDP PRN OU DRY EYES 05/15/20 10:15 Aspirin (Ecotrin) 81 mg DAILY PO 05/15/20 09:00 05/20/20 08:28 Atorvastatin Calcium (Lipitor) 10 mg DAILY PO 05/15/20 09:00 05/20/20 08:25 Buspirone HCl (Buspar) 15 mg BID PO 05/14/20 21:00 05/20/20 08:27 Cetirizine HCl (ZyrTEC) 5 mg QAM PO 05/15/20 09:00 05/20/20 08:25 Citalopram Hydrobromide (CeleXA) 20 mg DAILY PO 05/18/20 15:00 05/20/20 08:25 Cyanocobalamin (Vitamin B12) 1,000 mcg DAILY PO 05/15/20 09:00 05/20/20 08:26 Epinephrine HCl (Adrenalin) 0.3 mg ASDIRECTED PRN INJ ANAPHYLAXIS 05/14/20 17:45 Folic Acid (Folic Acid) 1 mg DAILY PO 05/15/20 09:00 05/20/20 08:28 Gabapentin (Neurontin) 100 mg BID PO 05/14/20 21:00 05/20/20 08:26 Guaifenesin (Mucinex Tab Er) 600 mg BID PRN PO CONGESTION 05/14/20 17:45 Home Med (Med Rec Complete!) ASDIRECTED XX 05/14/20 08:05 05/14/20 08:04 DC Hydroxyzine HCl (Atarax) 25 mg TID PRN PO ITCHING 05/14/20 17:45 Magnesium Hydroxide (Milk Of Magnesia) 30 ml DAILYPRN PRN PO CONSTIPATION 05/14/20 09:25 Magnesium Oxide (Mag-Ox) 400 mg DAILY PO 05/15/20 09:00 05/20/20 08:28 Montelukast Sodium (Singulair) 10 mg DAILY PO 05/15/20 09:00 05/20/20 08:25 Multivitamins (Theragram-M) 1 tab DAILY PO 05/15/20 09:00 05/20/20 08:25 Olopatadine HCl (Patanol) 1 drop BID PRN OU ITCHING 05/14/20 17:45 05/19/20 10:35 DC Olopatadine HCl (Patanol) 1 drop BID@09,17 OU 05/19/20 09:00 05/20/20 08:24 Oxybutynin Chloride (Ditropan Xl) 5 mg DAILY PO 05/15/20 09:00 05/20/20 08:24 Pantoprazole Sodium (Protonix) 40 mg DAILY PO 05/15/20 09:00 05/20/20 08:27 Salmeterol Xinafoate/ Fluticasone (Advair Hfa ) 2 puff RBID INH 05/14/20 20:00 05/20/20 08:23 Thiamine HCl (Thiamine HCl) 100 mg DAILY PO 05/15/20 09:00 05/20/20 08:25 Tiotropium [place] (Spiriva Handihaler) 1 inhalation DAILY@08 INH 05/15/20 08:00 05/20/20 08:23 Trazodone HCl (Desyrel) 50 mg QHS PRN PO SLEEP 05/14/20 17:45 05/19/20 20:58 Trazodone HCl (Desyrel) 50 mg QHSP PRN PO INSOMNIA 05/14/20 09:25 05/14/20 18:23 DC Allergies Coded Allergies: ROMULO Inhibitors (Verified Allergy, Severe, ANGIOEDEMA, 11/26/19) azithromycin (Verified Allergy, Severe, ANAPHYLAXIS, 11/26/19) oseltamivir (Verified Allergy, Severe, ANAPHYLAXIS, 11/26/19) latex (Verified Allergy, Intermediate, HIVES, EDEMA, 01/29/20) SEASONAL ALLERGIES (Verified Allergy, Unknown, 11/26/19) JANINE LOERA NP May 20, 2020 17:09
[2020-05-20 17:42] VITALS: BP 119/77
[2020-05-20] MEDS: traZODone 50 MG TAB PO PRN (20:17)
[2020-05-21 01:55] VITALS: BP 120/68
[2020-05-21 06:56] VITALS: BP 133/66
[2020-05-21] MEDS: TIOTROPIUM INHALER/CAPSULE (SPIRIVA) INH SCH (08:46)
[2020-05-21] MEDS: MAGNESIUM OXIDE 400MG TAB (MAG-OX) PO SCH (08:46)
[2020-05-21] MEDS: MONTELUKAST 10 MG TAB PO SCH (08:46)
[2020-05-21] MEDS: CitaloPRAM (CeleXA) 20 MG TAB PO SCH (08:47)
[2020-05-21] MEDS: ASPIRIN 81MG ENTERIC TABLET PO SCH (08:48)
[2020-05-21] MEDS: oxyBUTYnin *DITROPAN XL* 5 MG TABCR PO SCH (08:48)
[2020-05-21] MEDS: MULTIVITAMINS/MINERALS THERAP 1 TAB PO SCH (08:48)
[2020-05-21] MEDS: busPIRone 5 MG TAB PO SCH ×2 (08:48→20:46)
[2020-05-21] MEDS: PANTOPRAZOLE 40MG TAB (PROTONIX) PO SCH (08:48)
[2020-05-21] MEDS: CETIRIZINE (ZyrTEC) 10 MG TAB PO SCH (08:48)
[2020-05-21] MEDS: ATORVASTATIN 10 MG TAB PO SCH (08:48)
[2020-05-21] MEDS: GABAPENTIN 100 MG CAP PO SCH ×2 (08:50→20:45)
[2020-05-21] MEDS: THIAMINE 100 MG TAB PO SCH (08:50)
[2020-05-21] MEDS: FOLIC ACID 1 MG TAB PO SCH (08:50)
[2020-05-21] MEDS: ADVAIR HFA 230/21MCG INHALER INH SCH ×2 (08:50→20:46)
[2020-05-21] MEDS: CYANOCOBALAMIN 500 MCG TAB PO SCH (08:51)
[2020-05-21] MEDS: OLOPATADINE 0.1% OPHTH SOL 5ML(PATANOL) OU SCH ×2 (08:53→16:19)
[2020-05-21] MEDS: amLODIPine 5 MG TAB PO SCH (08:55)
[2020-05-21] MEDS ORDERED: ISOVUE-370 76% 100ML VIAL As Ordered ONE (11:57)
--- NOTE | 2020-05-21 14:10 | REP ---
INDICATION: RUQ pain, looking for hernia, has avascular necrosis of fem. COMPARISON: 01/28/2020 abdomen/pelvis CT and 12/29/2019 abdomen/pelvis CT. TECHNIQUE: The current study is performed with IV and bowel contrast. The study is performed to evaluate for hernia. FINDINGS: The visualized lung garcia are unremarkable. The hepatic parenchyma is diffusely less dense than the spleen compatible with hepato steatosis. This is unchanged. There are no hepatic masses or cysts. No biliary duct dilatation. There are surgical clips in the gallbladder fossa. This is unchanged. The pancreas and spleen are unremarkable and unchanged. The adrenals and kidneys are unremarkable and unchanged. Abdominal aorta is unremarkable. There is no periaortic adenopathy or mass. There is no bowel distention or stood obstruction. The stomach is distended with ingested material. There is no umbilical hernia. There is no splenic ileum hernia. No other ventral hernia is identified. Pelvis: The appendix is unremarkable. Pelvic bowel loops are unremarkable. The bladder is unremarkable. There is no ascites or adenopathy. There is no inguinal hernia on the right or the left. There are faintly visible lucencies in the femoral heads and necks bilaterally, similar to the prior studies, compatible with the clinical history of bilateral hip avascular necrosis. No fractures are identified. No femoral head flattening or deformity. IMPRESSION: Is no evidence of abdominal wall hernia. Hepato steatosis. Cholecystectomy. Bilateral hip avascular necrosis by history. No flattening, deformity, or fracture of the femoral heads or necks are identified. <Electronically signed by Stalin Pantoja > 05/21/20 [id number]
--- NOTE | 2020-05-21 14:32 | MHIPNPDOC ---
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 "I did very well for many years and started a family, I got after I moved here and I had a successful and happy life. All things went as planned but we couldn't have a family. We had a beautiful house and boat." States his worked at the [employer] and raised money. 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 Patient ruminated quite a bit about the success and fall of his business and feeling guilty about his employees. He ruminated about his successes with his house and water life. He states that when his father he was under the impression that the land would be given to him but his mother sold it. He states, "My equipment and personal belongings were still there and that bothered me that Ann-Marie sold it. I was furious - that triggered me - the world is crashing down because it was supposed to be willed to me. He reports that he has had suicidal thoughts for a long time, won't give a time line but states the loss of this property, poor supports and other situational stressors are causing him increased depression. PER ED REPORT: PT is +SI with plan to jump from a bridge or shoot himself. PT states that he was having an anxiety attack which caused him to be SOB and he is also suicidal. PT states that he and his family had owned a business in [place] for years and that his mother told him they sold it and he was had been told about it. He also had his own home that he thinks was sold around the same time but that he also is confused about that sale. 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 PT states he did not take anything but that all of his belongings to include office supplies, files and machinery are still there. PT speaks as if he still has use of both properties and that he continues to have belongings at both places. He cant seem to let the situation go but he admits has done no follow up in regards to getting clarity. PT lives in his own apartment that is subsidized and he has been there for two years. He attempts to assist another resident "Haris" but that is the only consistent relationship he currently has. PT has Hx of alcohol abuse and after months of sobriety he states he got intoxicated last week. PT has come close 2x to killing himself and both times he called a friend instead. He was admitted to [facility] 03/2020 after self-presenting to [facility] with SI. When he was d/c he attended an intake appointment 04/07 at [facility] Outpatient but is unclear why there were no other appointments. PT states that he has access to guns "They are in the warehouse" but admits he has not seen them in the two years since the building was sold. "I don't feel safe from myself right now" when being discharged is discussed. PT discovered a friend after they had committed suicide many years ago and PT went inpatient as a result. He states his current SI can be intense and he cannot CFS. PT is O2 dependent and has complaints of numbness in his feet so he has been utilizing a wheelchair. He is aware that [facility] is at capacity and that he will need to be transferred. It is not clear if PT is truly confused with memory lapses or delusional in regards to family business sales and the properties. VITAL SIGNS: See below. CURRENT MEDICATIONS: See below. MENTAL STATUS EXAMINATION: Speech: Is fluid, conversant, fast rate, tone and volume, tangential, at times hyperverbal Language skills are intact Thought processes including: linear and goal oriented Thought content: reports continued depression and anxiety. decreased suicidal ideation, no planning or intent but reports fleeting thoughts. Abstract reas oning, and computation: fair Description of associations: denies, none observed Description of abnormal or psychotic thoughts: denies, none observed. Judgment: fair Insight: fair Orientation: alert and oriented to person, place, time and situation Recent and remote memory: mostly intact Attention span and concentration: fair Language: expansive Fund of knowledge: average Mood: Improved Mood Affect: Flat DIAGNOSES: Unspecified Bipolar Disorder Alcohol Use Disorder Nicotine Use Disorder Asthma COPD Hernia ASSESSMENT: Patient remains on 1:1 for oxygen use. He is superficial and many times grandiose. He appears to confabulate within the session. Reviewing many things that have been discussed and reviewing it under the guise that he is preparing for discharge but patient's is impaired. In today's interview he has a folder with many papers that are written on, these are his notes for lists of things to do. He appears mildly disorganized in his thought processes, states that his exit is like that of a shotgun in that the ballistic sprays vs unlike a rifle where the target is more direct. His notes are disorganized and he has many pieces of paper. Patient does not wish to start mood stabilizer, although I have encouraged it. I believe that much of his disorganization is two fold, he has symptoms of bipolar disorder and he has memory issues. He seems to confabulate and has an ability to minimize his memory problems by being grandiose in other subject matters. When discussing his discharge plans today, he stated that he felt somewhat uncomfortable with it. He did not give a clear reason as to why he is unsure of being discharged tomorrow. He denies suicidality, but states at the moment he was not suicidal but that he continues to have fleeting thoughts. MANAGEMENT PLAN: Continue all medications, discharge tomorrow TIME SPENT: 25 minutes. Vital Signs Vital Signs Date Time Temp Pulse Resp B/P (MAP) Pulse Ox O2 Delivery O2 Flow Rate FiO2 05/21/20 08:55 77 112/73 05/21/20 06:56 99.0 16 100 Nasal Cannula 4.0 Current Medications Current Medications Medications (Trade) Dose Ordered Sig/Rey Route PRN Reason Start Time Stop Time Status Last Admin Dose Admin Acetaminophen (Tylenol Tab) 650 mg Q6HP PRN PO HEADACHE or DISCOMFORT 05/14/20 09:25 05/14/20 18:23 DC Acetaminophen (Tylenol Tab) 1,000 mg Q6H PRN PO PAIN 05/14/20 17:45 Al Hydrox/Mg Hydrox/Simethicone (Mylanta) 30 ml Q4HP PRN PO HEARTBURN/INDIGESTION 05/14/20 09:25 Albuterol Sulfate (Proventil, Ventolin Hfa) 2 puff Q4H PRN INH SHORTNESS OF BREATH 05/14/20 17:45 05/21/20 01:59 Albuterol/ Ipratropium (Combivent Respimat 100-20mcg) 1 puff Q6H INH 05/13/20 18:10 05/13/20 18:12 DC Albuterol/ Ipratropium (Combivent Respimat 100-20mcg) 1 puff RQ6H INH 05/13/20 20:00 05/14/20 18:11 DC 05/14/20 14:12 Amlodipine Besylate (Norvasc) 5 mg DAILY PO 05/15/20 09:00 05/21/20 08:55 Artificial Tears (Akwa Tears) 1 drop QID PRN OU DRY EYES 05/14/20 17:45 05/15/20 10:15 DC Artificial Tears (Akwa Tears) 2 drop QIDP PRN OU DRY EYES 05/15/20 10:15 Aspirin (Ecotrin) 81 mg DAILY PO 05/15/20 09:00 05/21/20 08:48 Atorvastatin Calcium (Lipitor) 10 mg DAILY PO 05/15/20 09:00 05/21/20 08:48 Buspirone HCl (Buspar) 15 mg BID PO 05/14/20 21:00 05/21/20 08:48 Cetirizine HCl (ZyrTEC) 5 mg QAM PO 05/15/20 09:00 05/21/20 08:48 Citalopram Hydrobromide (CeleXA) 20 mg DAILY PO 05/18/20 15:00 05/20/20 17:04 DC 05/20/20 08:25 Citalopram Hydrobromide (CeleXA) 40 mg DAILY PO 05/21/20 09:00 05/21/20 08:47 Cyanocobalamin (Vitamin B12) 1,000 mcg DAILY PO 05/15/20 09:00 05/21/20 08:51 Epinephrine HCl (Adrenalin) 0.3 mg ASDIRECTED PRN INJ ANAPHYLAXIS 05/14/20 17:45 Folic Acid (Folic Acid) 1 mg DAILY PO 05/15/20 09:00 05/21/20 08:50 Gabapentin (Neurontin) 100 mg BID PO 05/14/20 21:00 05/21/20 08:50 Guaifenesin (Mucinex Tab Er) 600 mg BID PRN PO CONGESTION 05/14/20 17:45 05/21/20 01:59 Home Med (Med Rec Complete!) ASDIRECTED XX 05/14/20 08:05 05/14/20 08:04 DC Hydroxyzine HCl (Atarax) 25 mg TID PRN PO ITCHING 05/14/20 17:45 Magnesium Hydroxide (Milk Of Magnesia) 30 ml DAILYPRN PRN PO CONSTIPATION 05/14/20 09:25 Magnesium Oxide (Mag-Ox) 400 mg DAILY PO 05/15/20 09:00 05/21/20 08:46 Montelukast Sodium (Singulair) 10 mg DAILY PO 05/15/20 09:00 05/21/20 08:46 Multivitamins (Theragram-M) 1 tab DAILY PO 05/15/20 09:00 05/21/20 08:48 Olopatadine HCl (Patanol) 1 drop BID PRN OU ITCHING 05/14/20 17:45 05/19/20 10:35 DC Olopatadine HCl (Patanol) 1 drop BID@09,17 OU 05/19/20 09:00 05/21/20 08:53 Oxybutynin Chloride (Ditropan Xl) 5 mg DAILY PO 05/15/20 09:00 05/21/20 08:48 Pantoprazole Sodium (Protonix) 40 mg DAILY PO 05/15/20 09:00 05/21/20 08:48 Salmeterol Xinafoate/ Fluticasone (Advair Hfa 230/ ) 2 puff RBID INH 05/14/20 20:00 05/21/20 08:50 Thiamine HCl (Thiamine HCl) 100 mg DAILY PO 05/15/20 09:00 05/21/20 08:50 Tiotropium [place] (Spiriva Handihaler) 1 inhalation DAILY@08 INH 05/15/20 08:00 05/21/20 08:46 Trazodone HCl (Desyrel) 50 mg QHS PRN PO SLEEP 05/14/20 17:45 05/20/20 20:17 Trazodone HCl (Desyrel) 50 mg QHSP PRN PO INSOMNIA 05/14/20 09:25 05/14/20 18:23 DC Allergies Coded Allergies: ROMULO Inhibitors (Verified Allergy, Severe, ANGIOEDEMA, 11/26/19) azithromycin (Verified Allergy, Severe, ANAPHYLAXIS, 11/26/19) oseltamivir (Verified Allergy, Severe, ANAPHYLAXIS, 11/26/19) latex (Verified Allergy, Intermediate, HIVES, EDEMA, 01/29/20) SEASONAL ALLERGIES (Verified Allergy, Unknown, 11/26/19) JANINE LOERA NP May 21, 2020 13:23
[2020-05-21 15:24] LABS: HEMATOCRIT 37.8 % (42.0-52.0); HEMOGLOBIN 12.3 g/dl (13.5-17.5); MEAN CORPUSCULAR HEMOGLOBIN 29.7 pg (27.0-33.0); MEAN CORPUSCULAR HGB CONC 32.5 g/dl (32.0-36.5); MEAN CORPUSCULAR VOLUME 91.3 fl (80.0-96.0); PLATELET COUNT, AUTOMATED 222 10^3/uL (150-450); RED BLOOD COUNT 4.14 10^6/uL (4.30-6.10); WHITE BLOOD COUNT 9.9 10^3/uL (4.0-10.0)
[2020-05-21 15:45] LABS: BLOOD UREA NITROGEN 17 MG/DL (7-18); CALCIUM LEVEL 9.1 MG/DL (8.5-10.1); CARBON DIOXIDE LEVEL 32 MEQ/L (21-32); CHLORIDE LEVEL 104 MEQ/L (98-107); GLOMERULAR FILTRATION RATE > 60.0 (>56); GLUCOSE, FASTING 123 MG/DL (70-100); POTASSIUM SERUM 4.4 MEQ/L (3.5-5.1); SODIUM LEVEL 141 MEQ/L (136-145)
[2020-05-21 18:34] VITALS: BP 142/81
[2020-05-21] MEDS: traZODone 50 MG TAB PO PRN (20:45)
--- NOTE | 2020-05-21 21:05 | IPNPDOC ---
Subjective Date Seen The patient was seen on 05/21/20. Subjective Chief Complaint/HPI Mr. Castillo is a 55 year [facility] for major depressive disorder. I was asked to re-evaluate the patient for episode of dyspnea and abdominal wall pain. Yesterday evening, he had a coughing fit and was feeling short of breath. He normally uses his albuterol inhaler, and it was added on that night. The coughing fit and dyspnea lasted for about 15 mins before resolving. Cough was dry and non-productive. Since then, he has carried his oxygen take as a rescue measure. Otherwise, he reports history of abdominal hernia. He was supposed to have a CT image for the hernia, but missed his CT appointment since he was here in the [facility]. Otherwise, patient denies fever/chills or dysuria. Objective Physical Examination General Exam: Positive: Alert, Cooperative Eye Exam: Positive: EOMI Neck Exam: Positive: Supple Chest Exam: Positive: Other (Mild expiratory wheeze) Heart Exam: Positive: Rate Normal, Regular Rhythm Abdomen Exam: Positive: Normal bowel sounds, Soft, Tenderness (right upper quadrant with very deep palpation) Extremity Exam: Negative: Edema Neuro Exam: Positive: Normal Speech, Cranial Nerves 3-12 NL Psych Exam: Positive: Anxiety Assessment /Plan Assessment Mr. Castillo is a 55 year old male in the [facility] mental health unit for major depressive disorder. He has mild expiratory wheeze, but is doing very well at room air. I agree with the albuterol inhaler as needed. Continue Advair and Spiriva. If symptoms done respond to albuterol, can consider adding on prednisone and azithromycin. No leukocytosis, hypoxia, or productive sputum to suggest pneumonia. Otherwise, CT abd/pelvis with and without contrast is negative for any hernia. Patient does have signs of cholecystectomy Plan/VTE VTE Prophylaxis Ordered?: No (ambulation) Plan 1. Major depressive episode -Continue to be managed in the inpatient mental health unit 2. COPD -Continue Advair and Spiriva -Use albuterol as need -If symptoms worsen or not controlled by albuterol, reconsult me and I'll add on prednisone and azithromycin -Oxygen as needed 3. Abdominal pain -CT abd/pelvis with and without contrast is negative for hernia -No intra-abdominal cause of RUQ pain seen on imaging -May be musculoskeletal pain Thank you for consulting us. We will sign off at this time. If there are any further questions or concerns, please do not hesitate to reconsult us. VS, I&O, 24H, Fishbone Vital Signs/I&O Vital Signs Date Time Temp Pulse Resp B/P (MAP) Pulse Ox O2 Delivery O2 Flow Rate FiO2 05/21/20 18:55 99.8 05/21/20 18:34 84 14 142/81 (101) 05/21/20 06:56 100 Nasal Cannula 4.0 Laboratory Data 24H LABS Laboratory Tests 2 05/21/20 15:09: Nucleated Red Blood Cells % (auto) 0.0, Anion Gap 5L, Glomerular Filtration Rate > 60.0, Calcium Level 9.1 CBC/BMP Laboratory Tests 05/21/20 15:09 HOME KEATING DO May 21, 2020 21:05
[2020-05-22 06:26] VITALS: BP 131/67
[2020-05-22] MEDS: ADVAIR HFA 230/21MCG INHALER INH SCH ×2 (08:53→20:22)
[2020-05-22] MEDS: OLOPATADINE 0.1% OPHTH SOL 5ML(PATANOL) OU SCH ×2 (08:55→17:03)
[2020-05-22] MEDS: ATORVASTATIN 10 MG TAB PO SCH (08:55)
[2020-05-22] MEDS: oxyBUTYnin *DITROPAN XL* 5 MG TABCR PO SCH (08:55)
[2020-05-22] MEDS: PILL CUTTER 1 EACH XX PRN (08:55)
[2020-05-22] MEDS: MONTELUKAST 10 MG TAB PO SCH (08:56)
[2020-05-22] MEDS: CYANOCOBALAMIN 500 MCG TAB PO SCH (08:56)
[2020-05-22] MEDS: CitaloPRAM (CeleXA) 20 MG TAB PO SCH (08:57)
[2020-05-22] MEDS: GABAPENTIN 100 MG CAP PO SCH ×2 (08:57→20:22)
[2020-05-22] MEDS: busPIRone 5 MG TAB PO SCH ×2 (08:57→20:22)
[2020-05-22] MEDS: amLODIPine 5 MG TAB PO SCH (08:57)
[2020-05-22] MEDS: THIAMINE 100 MG TAB PO SCH (08:57)
[2020-05-22] MEDS: PANTOPRAZOLE 40MG TAB (PROTONIX) PO SCH (08:58)
[2020-05-22] MEDS: MULTIVITAMINS/MINERALS THERAP 1 TAB PO SCH (08:58)
[2020-05-22] MEDS: ASPIRIN 81MG ENTERIC TABLET PO SCH (08:58)
[2020-05-22] MEDS: TIOTROPIUM INHALER/CAPSULE (SPIRIVA) INH SCH (08:58)
[2020-05-22] MEDS: FOLIC ACID 1 MG TAB PO SCH (08:58)
[2020-05-22] MEDS: CETIRIZINE (ZyrTEC) 10 MG TAB PO SCH (08:59)
[2020-05-22] MEDS: MAGNESIUM OXIDE 400MG TAB (MAG-OX) PO SCH (08:59)
[2020-05-22 16:51] VITALS: BP 122/62
--- NOTE | 2020-05-22 17:34 | MHIPNPDOC ---
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 "I did very well for many years and started a family, I got after I moved here and I had a successful and happy life. All things went as planned but we couldn't have a family. We had a beautiful house and boat." States his worked at the [employer] and raised money. 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 Patient ruminated quite a bit about the success and fall of his business and feeling guilty about his employees. He ruminated about his successes with his house and water life. He states that when his father he was under the impression that the land would be given to him but his mother sold it. He states, "My equipment and personal belongings were still there and that bothered me that Ann[employer] sold it. I was furious - that triggered me - the world is crashing down because it was supposed to be willed to me. He reports that he has had suicidal thoughts for a long time, won't give a time line but states the loss of this property, poor supports and other situational stressors are causing him increased depression. PER ED REPORT: PT is +SI with plan to jump from a bridge or shoot himself. PT states that he was having an anxiety attack which caused him to be SOB and he is also suicidal. PT states that he and his family had owned a business in [place] for years and that his mother told him they sold it and he was had been told about it. He also had his own home that he thinks was sold around the same time but that he also is confused about that sale. 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 PT states he did not take anything but that all of his belongings to include office supplies, files and machinery are still there. PT speaks as if he still has use of both properties and that he continues to have belongings at both places. He cant seem to let the situation go but he admits has done no follow up in regards to getting clarity. PT lives in his own apartment that is subsidized and he has been there for two years. He attempts to assist another resident "Haris" but that is the only consistent relationship he currently has. PT has Hx of alcohol abuse and after months of sobriety he states he got intoxicated last week. PT has come close 2x to killing himself and both times he called a friend instead. He was admitted to [facility] 03/2020 after self-presenting to [facility] with SI. When he was d/c he attended an intake appointment 04/07 at [facility] Outpatient but is unclear why there were no other appointments. PT states that he has access to guns "They are in the warehouse" but admits he has not seen them in the two years since the building was sold. "I don't feel safe from myself right now" when being discharged is discussed. PT discovered a friend after they had committed suicide many years ago and PT went inpatient as a result. He states his current SI can be intense and he cannot CFS. PT is O2 dependent and has complaints of numbness in his feet so he has been utilizing a wheelchair. He is aware that [facility] is at capacity and that he will need to be transferred. It is not clear if PT is truly confused with memory lapses or delusional in regards to family business sales and the properties. VITAL SIGNS: See below. CURRENT MEDICATIONS: See below. MENTAL STATUS EXAMINATION: Speech: Is fluid, conversant, fast rate, tone and volume, tangential, at times hyperverbal Language skills are intact Thought processes including: linear and goal oriented Thought content: reports continued depression and anxiety. decreased suicidal ideation, no planning or intent but reports fleeting thoughts. Abstract reasoning, and computation: fair Description of associations: denies, none observed Description of abnormal or psychotic thoughts: denies, none observed. Judgment: fair Insight: fair Orientation: alert and oriented to person, place, time and situation Recent and remote memory: mostly intact Attention span and concentration: fair Language: expansive Fund of knowledge: average Mood: Improved Mood Affect: Flat DIAGNOSES: Unspecified Bipolar Disorder Alcohol Use Disorder Nicotine Use Disorder Asthma COPD Hernia ASSESSMENT: Patient states he continues to have moderate depression and anxiety and did not feel safe for discharge today. He is on a 1:1 sitter due to oxygen use. He is attending groups, visible on the milieu and cooperative with treatment. He is observed to be somewhat disheveled today. He is hyperverbal, tangential and often circumstantial in the interview. Today he demonstrates some memory issues which he acknowledges that he has. 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 I feel strongly that patient would benefit from a mild mood stabilizer but patient continues to decline it. I feel that patient can be discharged safely to home on Monday. MANAGEMENT PLAN: Continue all medications, discharge Monday. TIME SPENT: 25 minutes. Vital Signs Vital Signs Date Time Temp Pulse Resp B/P (MAP) Pulse Ox O2 Delivery O2 Flow Rate FiO2 05/22/20 08:57 61 131/67 05/22/20 06:26 97.9 18 100 Room Air 05/21/20 06:56 4.0 Laboratory Data 24H Labs Laboratory Tests 2 05/21/20 15:09: Nucleated Red Blood Cells % (auto) 0.0, Anion Gap 5L, Glomerular Filtration Rate > 60.0, Calcium Level 9.1 CBC/BMP Laboratory Tests 05/21/20 15:09 Current Medications Current Medications Medications (Trade) Dose Ordered Sig/Rey Route PRN Reason Start Time Stop Time Status Last Admin Dose Admin Acetaminophen (Tylenol Tab) 650 mg Q6HP PRN PO HEADACHE or DISCOMFORT 05/14/20 09:25 05/14/20 18:23 DC Acetaminophen (Tylenol Tab) 1,000 mg Q6H PRN PO PAIN 05/14/20 17:45 Al Hydrox/Mg Hydrox/Simethicone (Mylanta) 30 ml Q4HP PRN PO HEARTBURN/INDIGESTION 05/14/20 09:25 Albuterol Sulfate (Proventil, Ventolin Hfa) 2 puff Q4H PRN INH SHORTNESS OF BREATH 05/14/20 17:45 05/21/20 01:59 Albuterol/ Ipratropium (Combivent Respimat 100-20mcg) 1 puff Q6H INH 05/13/20 18:10 05/13/20 18:12 DC Albuterol/ Ipratropium (Combivent Respimat 100-20mcg) 1 puff RQ6H INH 05/13/20 20:00 05/14/20 18:11 DC 05/14/20 14:12 Amlodipine Besylate (Norvasc) 5 mg DAILY PO 05/15/20 09:00 05/22/20 08:57 Artificial Tears (Akwa Tears) 1 drop QID PRN OU DRY EYES 05/14/20 17:45 05/15/20 10:15 DC Artificial Tears (Akwa Tears) 2 drop QIDP PRN OU DRY EYES 05/15/20 10:15 Aspirin (Ecotrin) 81 mg DAILY PO 05/15/20 09:00 05/22/20 08:58 Atorvastatin Calcium (Lipitor) 10 mg DAILY PO 05/15/20 09:00 05/22/20 08:55 Buspirone HCl (Buspar) 15 mg BID PO 05/14/20 21:00 05/22/20 08:57 Cetirizine HCl (ZyrTEC) 5 mg QAM PO 05/15/20 09:00 05/22/20 08:59 Citalopram Hydrobromide (CeleXA) 20 mg DAILY PO 05/18/20 15:00 05/20/20 17:04 DC 05/20/20 08:25 Citalopram Hydrobromide (CeleXA) 40 mg DAILY PO 05/21/20 09:00 05/22/20 08:57 Cyanocobalamin (Vitamin B12) 1,000 mcg DAILY PO 05/15/20 09:00 05/22/20 08:56 Epinephrine HCl (Adrenalin) 0.3 mg ASDIRECTED PRN INJ ANAPHYLAXIS 05/14/20 17:45 Folic Acid (Folic Acid) 1 mg DAILY PO 05/15/20 09:00 05/22/20 08:58 Gabapentin (Neurontin) 100 mg BID PO 05/14/20 21:00 05/22/20 08:57 Guaifenesin (Mucinex Tab Er) 600 mg BID PRN PO CONGESTION 05/14/20 17:45 05/21/20 01:59 Home Med (Med Rec Complete!) ASDIRECTED XX 05/14/20 08:05 05/14/20 08:04 DC Hydroxyzine HCl (Atarax) 25 mg TID PRN PO ITCHING 05/14/20 17:45 Magnesium Hydroxide (Milk Of Magnesia) 30 ml DAILYPRN PRN PO CONSTIPATION 05/14/20 09:25 Magnesium Oxide (Mag-Ox) 400 mg DAILY PO 05/15/20 09:00 05/22/20 08:59 Montelukast Sodium (Singulair) 10 mg DAILY PO 05/15/20 09:00 05/22/20 08:56 Multivitamins (Theragram-M) 1 tab DAILY PO 05/15/20 09:00 05/22/20 08:58 Olopatadine HCl (Patanol) 1 drop BID PRN OU ITCHING 05/14/20 17:45 05/19/20 10:35 DC Olopatadine HCl (Patanol) 1 drop BID@,17 OU 05/19/20 09:00 05/22/20 08:55 Oxybutynin Chloride (Ditropan Xl) 5 mg DAILY PO 05/15/20 09:00 05/22/20 08:55 Pantoprazole Sodium (Protonix) 40 mg DAILY PO 05/15/20 09:00 05/22/20 08:58 Salmeterol Xinafoate/ Fluticasone (Advair Hfa ) 2 puff RBID INH 05/14/20 20:00 05/22/20 08:53 Thiamine HCl (Thiamine HCl) 100 mg DAILY PO 05/15/20 09:00 05/22/20 08:57 Tiotropium [place] (Spiriva Handihaler) 1 inhalation DAILY@08 INH 05/15/20 08:00 05/22/20 08:58 Trazodone HCl (Desyrel) 50 mg QHS PRN PO SLEEP 05/14/20 17:45 05/21/20 20:45 Trazodone HCl (Desyrel) 50 mg QHSP PRN PO INSOMNIA 05/14/20 09:25 05/14/20 18:23 DC Allergies Coded Allergies: ROMULO Inhibitors (Verified Allergy, Severe, ANGIOEDEMA, 11/26/19) azithromycin (Verified Allergy, Severe, ANAPHYLAXIS, 11/26/19) oseltamivir (Verified Allergy, Severe, ANAPHYLAXIS, 11/26/19) latex (Verified Allergy, Intermediate, HIVES, EDEMA, 01/29/20) SEASONAL ALLERGIES (Verified Allergy, Unknown, 11/26/19) JANINE LOERA NP May 22, 2020 13:45
[2020-05-22] MEDS: traZODone 50 MG TAB PO PRN (20:22)
[2020-05-23 06:55] VITALS: BP 116/59
[2020-05-23] MEDS: PILL CUTTER 1 EACH XX PRN (08:27)
[2020-05-23] MEDS: OLOPATADINE 0.1% OPHTH SOL 5ML(PATANOL) OU SCH ×2 (08:27→17:08)
[2020-05-23] MEDS: oxyBUTYnin *DITROPAN XL* 5 MG TABCR PO SCH (08:27)
[2020-05-23] MEDS: CYANOCOBALAMIN 500 MCG TAB PO SCH (08:28)
[2020-05-23] MEDS: CETIRIZINE (ZyrTEC) 10 MG TAB PO SCH (08:28)
[2020-05-23] MEDS: ATORVASTATIN 10 MG TAB PO SCH (08:28)
[2020-05-23] MEDS: MONTELUKAST 10 MG TAB PO SCH (08:28)
[2020-05-23] MEDS: amLODIPine 5 MG TAB PO SCH (08:29)
[2020-05-23] MEDS: CitaloPRAM (CeleXA) 20 MG TAB PO SCH (08:29)
[2020-05-23] MEDS: PANTOPRAZOLE 40MG TAB (PROTONIX) PO SCH (08:30)
[2020-05-23] MEDS: busPIRone 5 MG TAB PO SCH ×2 (08:30→20:58)
[2020-05-23] MEDS: MULTIVITAMINS/MINERALS THERAP 1 TAB PO SCH (08:30)
[2020-05-23] MEDS: THIAMINE 100 MG TAB PO SCH (08:30)
[2020-05-23] MEDS: FOLIC ACID 1 MG TAB PO SCH (08:30)
[2020-05-23] MEDS: ASPIRIN 81MG ENTERIC TABLET PO SCH (08:30)
[2020-05-23] MEDS: GABAPENTIN 100 MG CAP PO SCH ×2 (08:30→20:58)
[2020-05-23] MEDS: ADVAIR HFA 230/21MCG INHALER INH SCH ×2 (08:31→20:59)
[2020-05-23] MEDS: MAGNESIUM OXIDE 400MG TAB (MAG-OX) PO SCH (08:31)
[2020-05-23] MEDS: TIOTROPIUM INHALER/CAPSULE (SPIRIVA) INH SCH (08:31)
--- NOTE | 2020-05-23 08:32 | REP ---
INDICATION: Leg pitting edema. COMPARISON: None. TECHNIQUE: Bilateral lower extremity duplex venous ultrasound. FINDINGS: The deep veins are anechoic and fully compressible from the groin to the popliteal fossa in the left and right lower extremity. Color flow imaging is homogeneous. Spectral Doppler interrogation demonstrates intact respiratory variation in flow and normal manual augmentation of flow. There is no evidence of deep vein thrombosis. IMPRESSION: Negative bilateral lower extremity duplex venous ultrasound. No evidence of deep vein thrombosis. <Electronically signed by Vamsi Louis > 05/23/20 [id number]
[2020-05-23] MEDS: NYSTATIN 100,000 UNITS/GM TOPICAL PWD 15 GM TOP SCH ×2 (15:31→20:59)
[2020-05-23 18:44] VITALS: BP 124/78
[2020-05-23] MEDS: traZODone 50 MG TAB PO PRN (20:59)
[2020-05-24 06:52] VITALS: BP 114/65
[2020-05-24] MEDS: TIOTROPIUM INHALER/CAPSULE (SPIRIVA) INH SCH (09:03)
[2020-05-24] MEDS: FOLIC ACID 1 MG TAB PO SCH (09:03)
[2020-05-24] MEDS: CitaloPRAM (CeleXA) 20 MG TAB PO SCH (09:04)
[2020-05-24] MEDS: amLODIPine 5 MG TAB PO SCH (09:04)
[2020-05-24] MEDS: ASPIRIN 81MG ENTERIC TABLET PO SCH (09:04)
[2020-05-24] MEDS: GABAPENTIN 100 MG CAP PO SCH ×2 (09:04→20:26)
[2020-05-24] MEDS: THIAMINE 100 MG TAB PO SCH (09:04)
[2020-05-24] MEDS: MULTIVITAMINS/MINERALS THERAP 1 TAB PO SCH (09:04)
[2020-05-24] MEDS: PANTOPRAZOLE 40MG TAB (PROTONIX) PO SCH (09:04)
[2020-05-24] MEDS: ATORVASTATIN 10 MG TAB PO SCH (09:04)
[2020-05-24] MEDS: MAGNESIUM OXIDE 400MG TAB (MAG-OX) PO SCH (09:04)
[2020-05-24] MEDS: oxyBUTYnin *DITROPAN XL* 5 MG TABCR PO SCH (09:05)
[2020-05-24] MEDS: CETIRIZINE (ZyrTEC) 10 MG TAB PO SCH (09:05)
[2020-05-24] MEDS: OLOPATADINE 0.1% OPHTH SOL 5ML(PATANOL) OU SCH ×2 (09:05→17:00)
[2020-05-24] MEDS: CYANOCOBALAMIN 500 MCG TAB PO SCH (09:05)
[2020-05-24] MEDS: MONTELUKAST 10 MG TAB PO SCH (09:05)
[2020-05-24] MEDS: ADVAIR HFA 230/21MCG INHALER INH SCH ×2 (09:06→20:27)
[2020-05-24] MEDS: NYSTATIN 100,000 UNITS/GM TOPICAL PWD 15 GM TOP SCH ×2 (09:06→20:27)
[2020-05-24] MEDS: busPIRone 5 MG TAB PO SCH ×2 (09:06→20:26)
--- NOTE | 2020-05-24 11:41 | MHIPNPDOC ---
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 "I did very well for many years and started a family, I got after I moved here and I had a successful and happy life. All things went as planned but we couldn't have a family. We had a beautiful house and boat." States his worked at the [employer] and raised money. 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 Patient ruminated quite a bit about the success and fall of his business and feeling guilty about his employees. He ruminated about his successes with his house and water life. He states that when his father he was under the impression that the land would be given to him but his mother sold it. He states, "My equipment and personal belongings were still there and that bothered me that Ann-Marie sold it. I was furious - that triggered me - the world is crashing down because it was supposed to be willed to me. He reports that he has had suicidal thoughts for a long time, won't give a time line but states the loss of this property, poor supports and other situational stressors are causing him increased depression. Patient appears in good mood. He continues to be somewhat circumferential in speech. In no burt to be discharged. No significant complaints of depression today. CURRENT MEDICATIONS: See below. MENTAL STATUS EXAMINATION: Speech: Is fluid, conversant, fast rate, tone and volume, tangential, at times hyperverbal Language skills are intact Thought processes including: linear and goal oriented Thought content: reports continued depression and anxiety. decreased suicidal ideation, no planning or intent but reports fleeting thoughts. Abstract reasoning, and computation: fair Description of associations: denies, none observed Description of abnormal or psychotic thoughts: denies, none observed. Judgment: fair Insight: fair Orientation: alert and oriented to person, place, time and situation Recent and remote memory: mostly intact Attention span and concentration: fair Language: expansive Fund of knowledge: average Mood: Improved Mood Affect: Flat DIAGNOSES: Unspecified Bipolar Disorder Alcohol Use Disorder Korsakoffs Dementia Nicotine Use Disorder Asthma COPD Hernia ASSESSMENT: Patient states he continues to have moderate depression and anxiety and did not feel safe for discharge today. He is on a 1:1 sitter due to oxygen use. He is attending groups, visible on the milieu and cooperative with treatment. He is hyperverbal, tangential and often circumstantial in the interview. Today he demonstrates some memory issues which he acknowledges that he has. The diagnosis of Korsakoffs Dementia has been entertained. Patient is often talkative reporting a story that demonstrates his jail memory but he often does not remember conversations that we had yesterday. I feel strongly that patient would benefit from a mild mood stabilizer but patient continues to decline it. I feel that patient can be discharged safely to home on Monday. MANAGEMENT PLAN: Continue all medications, discharge Monday. TIME SPENT: 25 minutes. Vital Signs Vital Signs Date Time Temp Pulse Resp B/P (MAP) Pulse Ox O2 Delivery O2 Flow Rate FiO2 05/24/20 09:04 61 114/65 05/24/20 06:52 99.0 18 100 Nasal Cannula 4.0 Current Medications Current Medications Medications (Trade) Dose Ordered Sig/Rey Route PRN Reason Start Time Stop Time Status Last Admin Dose Admin Acetaminophen (Tylenol Tab) 650 mg Q6HP PRN PO HEADACHE or DISCOMFORT 05/14/20 09:25 05/14/20 18:23 DC Acetaminophen (Tylenol Tab) 1,000 mg Q6H PRN PO PAIN 05/14/20 17:45 Al Hydrox/Mg Hydrox/Simethicone (Mylanta) 30 ml Q4HP PRN PO HEARTBURN/INDIGESTION 05/14/20 09:25 Albuterol Sulfate (Proventil, Ventolin Hfa) 2 puff Q4H PRN INH SHORTNESS OF BREATH 05/14/20 17:45 05/21/20 01:59 Albuterol/ Ipratropium (Combivent Respimat 100-20mcg) 1 puff Q6H INH 05/13/20 18:10 05/13/20 18:12 DC Albuterol/ Ipratropium (Combivent Respimat 100-20mcg) 1 puff RQ6H INH 05/13/20 20:00 05/14/20 18:11 DC 05/14/20 14:12 Amlodipine Besylate (Norvasc) 5 mg DAILY PO 05/15/20 09:00 05/24/20 09:04 Artificial Tears (Akwa Tears) 1 drop QID PRN OU DRY EYES 05/14/20 17:45 05/15/20 10:15 DC Artificial Tears (Akwa Tears) 2 drop QIDP PRN OU DRY EYES 05/15/20 10:15 Aspirin (Ecotrin) 81 mg DAILY PO 05/15/20 09:00 05/24/20 09:04 Atorvastatin Calcium (Lipitor) 10 mg DAILY PO 05/15/20 09:00 05/24/20 09:04 Buspirone HCl (Buspar) 15 mg BID PO 05/14/20 21:00 05/24/20 09:06 Cetirizine HCl (ZyrTEC) 5 mg QAM PO 05/15/20 09:00 05/24/20 09:05 Citalopram Hydrobromide (CeleXA) 20 mg DAILY PO 05/18/20 15:00 05/20/20 17:04 DC 05/20/20 08:25 Citalopram Hydrobromide (CeleXA) 40 mg DAILY PO 05/21/20 09:00 05/24/20 09:04 Cyanocobalamin (Vitamin B12) 1,000 mcg DAILY PO 05/15/20 09:00 05/24/20 09:05 Epinephrine HCl (Adrenalin) 0.3 mg ASDIRECTED PRN INJ ANAPHYLAXIS 05/14/20 17:45 Folic Acid (Folic Acid) 1 mg DAILY PO 05/15/20 09:00 05/24/20 09:03 Gabapentin (Neurontin) 100 mg BID PO 05/14/20 21:00 05/24/20 09:04 Guaifenesin (Mucinex Tab Er) 600 mg BID PRN PO CONGESTION 05/14/20 17:45 05/21/20 01:59 Home Med (Med Rec Complete!) ASDIRECTED XX 05/14/20 08:05 05/14/20 08:04 DC Hydroxyzine HCl (Atarax) 25 mg TID PRN PO ITCHING 05/14/20 17:45 Magnesium Hydroxide (Milk Of Magnesia) 30 ml DAILYPRN PRN PO CONSTIPATION 05/14/20 09:25 Magnesium Oxide (Mag-Ox) 400 mg DAILY PO 05/15/20 09:00 05/24/20 09:04 Montelukast Sodium (Singulair) 10 mg DAILY PO 05/15/20 09:00 05/24/20 09:05 Multivitamins (Theragram-M) 1 tab DAILY PO 05/15/20 09:00 05/24/20 09:04 Nystatin (Mycostatin Powder, Nystop) BOTH FEET BID TOP 05/23/20 14:45 05/24/20 09:06 Olopatadine HCl (Patanol) 1 drop BID PRN OU ITCHING 05/14/20 17:45 05/19/20 10:35 DC Olopatadine HCl (Patanol) 1 drop BID@09,17 OU 05/19/20 09:00 05/24/20 09:05 Oxybutynin Chloride (Ditropan Xl) 5 mg DAILY PO 05/15/20 09:00 05/24/20 09:05 Pantoprazole Sodium (Protonix) 40 mg DAILY PO 05/15/20 09:00 05/24/20 09:04 Salmeterol Xinafoate/ Fluticasone (Advair Hfa / ) 2 puff RBID INH 05/14/20 20:00 05/24/20 09:06 Thiamine HCl (Thiamine HCl) 100 mg DAILY PO 05/15/20 09:00 05/24/20 09:04 Tiotropium Maurice (Spiriva Handihaler) 1 inhalation DAILY@08 INH 05/15/20 08:00 05/24/20 09:03 Trazodone HCl (Desyrel) 50 mg QHS PRN PO SLEEP 05/14/20 17:45 05/23/20 20:59 Trazodone HCl (Desyrel) 50 mg QHSP PRN PO INSOMNIA 05/14/20 09:25 05/14/20 18:23 DC Allergies Coded Allergies: ROMULO Inhibitors (Verified Allergy, Severe, ANGIOEDEMA, 11/26/19) azithromycin (Verified Allergy, Severe, ANAPHYLAXIS, 11/26/19) oseltamivir (Verified Allergy, Severe, ANAPHYLAXIS, 11/26/19) latex (Verified Allergy, Intermediate, HIVES, EDEMA, 01/29/20) SEASONAL ALLERGIES (Verified Allergy, Unknown, 11/26/19) ILIA RAMIREZ MD May 24, 2020 11:41
--- NOTE | 2020-05-24 13:30 | REP ---
INDICATION: left foot pain. COMPARISON: None. TECHNIQUE: Four views of the left ankle. FINDINGS: Four views of the left ankle demonstrate an intact ankle mortise. There is mild anterior soft tissue swelling. Subtle cortical irregularity is seen on the oblique radiograph at the medial malleolar tip. I cannot exclude a chip fracture here. IMPRESSION: Anterior soft tissue swelling. Question chip fracture at the medial malleolar tip. This should be correlated with area of tenderness to palpation on physical exam. No other evidence of fracture. <Electronically signed by Vamsi Louis > 05/24/20 [id number]
--- NOTE | 2020-05-24 13:31 | REP ---
INDICATION: left foot pain. COMPARISON: None. TECHNIQUE: Four views of the left foot are obtained. FINDINGS: Four views of the left foot demonstrate normal bones, joints, and soft tissues. No fracture or subluxation is seen. No opaque foreign body noted. IMPRESSION: Negative left foot series. <Electronically signed by Vamsi Louis > 05/24/20 [id number]
--- NOTE | 2020-05-24 17:22 | IPNPDOC ---
Subjective Date Seen The patient was seen on 05/24/20. Subjective Chief Complaint/HPI Mr. Castillo is a 55 [facility] old [facility]. I was called to see him for left foot pain. Patient tells me yesterday evening, he had pain and swelling in both feet. Today, he kept his foot elevated. I obtained XRay of the left ankle and foot. No fracture in foot. There was question of chip fracture at medial malleolar tip. When I saw patient, there was no pain or tenderness of the medial malleolus. Pain is distally towards the toes and tender to touch. It is warm, erythematous, and swollen. No pain, redness, or erythema of right foot. Elevation has taken care of swelling of the right and there is no pain in right foot at time of examination. He has cellulitis of right foot. Will give him Bactrim DS 1 tablet BID. Would recommend that he continues for 7 days and follow up with PCP for resolution of cellul itis. Objective Physical Examination General Exam: Positive: Alert, Cooperative Eye Exam: Positive: EOMI Neck Exam: Positive: Supple Extremity Exam: Positive: Edema (left foot, right foot without swelling) Skin Exam: Positive: Rash (Left foot erythema, swelling, and tenderness) Neuro Exam: Positive: Normal Speech Psych Exam: Positive: Mental status NL, Mood NL Assessment /Plan Plan/VTE VTE Prophylaxis Ordered?: No (ambulation) Plan 1. Left foot cellulitis -Start Bactrim DS 1tab BID for 7 days -Follow up with PCP for re-evaluation of cellulitis VS, I&O, 24H, Fishbone Vital Signs/I&O Vital Signs Date Time Temp Pulse Resp B/P (MAP) Pulse Ox O2 Delivery O2 Flow Rate FiO2 05/24/20 09:04 61 114/65 05/24/20 06:52 99.0 18 100 Nasal Cannula 4.0 HOME KEATING DO May 24, 2020 17:22
[2020-05-24 17:36] VITALS: BP 119/72
[2020-05-24] MEDS: BACTRIM 160MG/800MG DS TAB PO SCH (20:26)
[2020-05-24] MEDS: traZODone 50 MG TAB PO PRN (20:26)
[2020-05-25 06:45] VITALS: BP 115/65
[2020-05-25] MEDS: TIOTROPIUM INHALER/CAPSULE (SPIRIVA) INH SCH (08:28)
[2020-05-25] MEDS: ADVAIR HFA 230/21MCG INHALER INH SCH ×2 (08:28→20:10)
[2020-05-25] MEDS: NYSTATIN 100,000 UNITS/GM TOPICAL PWD 15 GM TOP SCH ×2 (08:30→20:10)
[2020-05-25] MEDS: PILL CUTTER 1 EACH XX PRN (08:30)
[2020-05-25] MEDS: CETIRIZINE (ZyrTEC) 10 MG TAB PO SCH (08:30)
[2020-05-25] MEDS: ASPIRIN 81MG ENTERIC TABLET PO SCH (08:30)
[2020-05-25] MEDS: CitaloPRAM (CeleXA) 20 MG TAB PO SCH (08:30)
[2020-05-25] MEDS: oxyBUTYnin *DITROPAN XL* 5 MG TABCR PO SCH (08:30)
[2020-05-25] MEDS: OLOPATADINE 0.1% OPHTH SOL 5ML(PATANOL) OU SCH ×2 (08:30→17:06)
[2020-05-25] MEDS: CYANOCOBALAMIN 500 MCG TAB PO SCH (08:30)
[2020-05-25] MEDS: BACTRIM 160MG/800MG DS TAB PO SCH ×2 (08:30→20:10)
[2020-05-25] MEDS: MAGNESIUM OXIDE 400MG TAB (MAG-OX) PO SCH (08:30)
[2020-05-25] MEDS: GABAPENTIN 100 MG CAP PO SCH ×2 (08:31→20:10)
[2020-05-25] MEDS: MONTELUKAST 10 MG TAB PO SCH (08:31)
[2020-05-25] MEDS: MULTIVITAMINS/MINERALS THERAP 1 TAB PO SCH (08:31)
[2020-05-25] MEDS: THIAMINE 100 MG TAB PO SCH (08:31)
[2020-05-25] MEDS: PANTOPRAZOLE 40MG TAB (PROTONIX) PO SCH (08:31)
[2020-05-25] MEDS: ATORVASTATIN 10 MG TAB PO SCH (08:31)
[2020-05-25] MEDS: busPIRone 5 MG TAB PO SCH ×2 (08:31→20:10)
[2020-05-25] MEDS: FOLIC ACID 1 MG TAB PO SCH (08:31)
[2020-05-25] MEDS: amLODIPine 5 MG TAB PO SCH (08:31)
[2020-05-25] MEDS ORDERED: BUSP15TA47 PO (10:22)
[2020-05-25] MEDS ORDERED: CITA40TA6 PO (10:22)
[2020-05-25] MEDS ORDERED: SULF1TAB23 PO (10:22)
[2020-05-25 16:45] VITALS: BP 142/79
[2020-05-25] MEDS: traZODone 50 MG TAB PO PRN (20:10)
[2020-05-26 06:31] VITALS: BP 131/67
[2020-05-26] MEDS: ADVAIR HFA 230/21MCG INHALER INH SCH (07:48)
[2020-05-26] MEDS: TIOTROPIUM INHALER/CAPSULE (SPIRIVA) INH SCH (07:49)
[2020-05-26] MEDS: OLOPATADINE 0.1% OPHTH SOL 5ML(PATANOL) OU SCH (07:51)
[2020-05-26] MEDS: NYSTATIN 100,000 UNITS/GM TOPICAL PWD 15 GM TOP SCH (07:51)
[2020-05-26] MEDS: CYANOCOBALAMIN 500 MCG TAB PO SCH (07:53)
[2020-05-26 07:55] VITALS: BP 114/79
[2020-05-26] MEDS: MAGNESIUM OXIDE 400MG TAB (MAG-OX) PO SCH (07:55)
[2020-05-26] MEDS: oxyBUTYnin *DITROPAN XL* 5 MG TABCR PO SCH (07:55)
[2020-05-26] MEDS: PANTOPRAZOLE 40MG TAB (PROTONIX) PO SCH (07:55)
[2020-05-26] MEDS: amLODIPine 5 MG TAB PO SCH (07:55)
[2020-05-26] MEDS: CitaloPRAM (CeleXA) 20 MG TAB PO SCH (07:56)
[2020-05-26] MEDS: busPIRone 5 MG TAB PO SCH (07:56)
[2020-05-26] MEDS: BACTRIM 160MG/800MG DS TAB PO SCH (07:56)
[2020-05-26] MEDS: MULTIVITAMINS/MINERALS THERAP 1 TAB PO SCH (07:56)
[2020-05-26] MEDS: PILL CUTTER 1 EACH XX PRN (07:56)
[2020-05-26] MEDS: ATORVASTATIN 10 MG TAB PO SCH (07:56)
[2020-05-26] MEDS: GABAPENTIN 100 MG CAP PO SCH (07:56)
[2020-05-26] MEDS: MONTELUKAST 10 MG TAB PO SCH (07:56)
[2020-05-26] MEDS: CETIRIZINE (ZyrTEC) 10 MG TAB PO SCH (07:56)
[2020-05-26] MEDS: THIAMINE 100 MG TAB PO SCH (07:56)
[2020-05-26] MEDS: ASPIRIN 81MG ENTERIC TABLET PO SCH (07:57)
[2020-05-26] MEDS: FOLIC ACID 1 MG TAB PO SCH (07:57)
--- NOTE | 2020-05-26 15:24 | MHDSPDOC ---
[facility] Discharge Summary Discharge Summary DATE OF ADMISSION: May 14, 2020 at 09:23 DATE OF DISCHARGE: May 26, 2020 at 11:15 DISCHARGE DIAGNOSES: Unspecified Bipolar Disorder Alcohol Use Disorder Rule out Korsakoffs Dementia Nicotine Use Disorder Asthma COPD Hernia Cellulitis REASON FOR ADMISSION: HISTORY: Patient is a 55 -year-old Single, Unemployed, Domiciled, , male, who reports suicidal ideation to jump from a bridge. 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 "I did very well for many years and started a family, I got after I moved here and I had a successful and happy life. All things went as planned but we couldn't have a family. We had a beautiful house and boat." States his worked at the [employer] for [employer] and raised money. 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 Patient ruminated quite a bit about the success and fall of his business and feeling guilty about his employees. He ruminated about his successes with his house and water life. He states that when his father he was under the impre ssion that the land would be given to him but his mother sold it. He states, "My equipment and personal belongings were still there and that bothered me that Ann[employer]Marie sold it. I was furious - that triggered me - the world is crashing down because it was supposed to be willed to me. He reports that he has had suicidal thoughts for a long time, won't give a time line but states the loss of this property, poor supports and other situational stressors are causing him increased depression. PER ED REPORT: PT is +SI with plan to jump from a bridge or shoot himself. PT states that he was having an anxiety attack which caused him to be SOB and he is also suicidal. PT states that he and his family had owned a business in [place] for years and that his mother told him they sold it and he was had been told about it. He also had his own home that he thinks was sold around the same time but that he also is confused about that sale. 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 PT states he did not take anything but that all of his belongings to include office supplies, files and machinery are still there. PT speaks as if he still has use of both properties and that he continues to have belongings at both places. He cant seem to let the situation go but he admits has done no follow up in regards to getting clarity. PT lives in his own apartment that is subsidized and he has been there for two years. He attempts to assist another resident "Haris" but that is the only consistent relationship he currently has. PT has Hx of alcohol abuse and after months of sobriety he states he got intoxicated last week. PT has come close 2x to killing himself and both times he called a friend instead. He was admitted to [facility] 03/2020 after self-presenting to [facility] with SI. When he was d/c he attended an intake appointment 04/07 at [facility] Out[facility] but is unclear why there were no other appointments. PT states that he has access to guns "They are in the warehouse" but admits he has not seen them in the two years since the building was sold. "I don't feel safe from myself right now" when being discharged is discussed. PT discovered a friend after they had committed suicide many years ago and PT went inpatient as a result. He states his current SI can be intense and he cannot CFS. PT is O2 dependent and has complaints of numbness in his feet so he has been utilizing a wheelchair. He is aware that [facility] is at capacity and that he will need to be transferred. It is not clear if PT is truly confused with memory lapses or delusional in regards to family business sales and the properties. CONSULTANTS INVOLVED: See Medical H + P by Hospitalist TREATMENT AND PROGRESS ON THE UNIT: Patient was admitted to the [facility] on a 9.39 legal status he was afforded the following treatment modalities: 1) Individual Therapy 2) Group Therapy 3) Medication Management 4) Milieu Therapy 5) Safe Environment HOSPITAL COURSE: Patient was admitted to [facility] on a 9.39 legal status. He was reporting depression and anxiety along with suicidal ideation to jump from a bridge. He was initially very depressed, was placed on 1:1 sitter because of oxygen use and unsteadiness. This was maintained throughout his hospitalization. Patient was cooperative with treatment. He did decline a mood stabilizer. Patient displayed symptoms of bipolar: grandiosity, expansive mood, making lists, having multiple chaotic notes for himself, rapid pressured speech. I educated him on the effects of a mood stabilizer but he was not agreeable and stated that he did not feel that he had Bipolar symptoms. Patient did not exhibit manic behaviors but there was no reason enforce a mood stabilizer. He r eported depression and he was restarted on his Citalopram. Much of the treatment was group and individual therapy for this patient. DISCHARGE ASSESSMENT: In today's interview, patient is alert and oriented, pts dress is appropriate. Hygiene and grooming is well-kempt. Smiles on approach and is pleasant and engaged in the interview. Denies depression and anxiety. Denies suicidal and homicidal ideation, planning or intent. Denies and is not observed with delvis, psychotic symptoms of delusions, bizarre thinking, obsessions, paranoia, ruminations illogical thoughts, flight of ideas or having poor insight and judgement. Patient has normal mentation, declines further hospitalization on a voluntary status and meets criteria for discharge today. Patient encouraged to return to hospital if his symptoms worsen or change and encouraged to call unit if he/she/they needs to speak to provider for questions regarding medications or care. MENTAL STATUS EXAMINATION ON DISCHARGE: giuseppe is a 55 -year-old Single, Unemployed, Domiciled, , male, who reports suicidal ideation to jump from a bridge. Speech: Is fluid, conversant, normal rate, tone and volume Language skills are intact Thought processes including: linear and goal oriented Thought content: denies depression and anxiety. Denies suicidal/homicidal ideation, planning or intent. Abstract reasoning, and computation: fair Description of associations: denies, none observed Description of abnormal or psychotic thoughts: denies, none observed. Judgment: fair Insight: fair Orientation: alert and oriented to person, place, time and situation Recent and remote memory: intact, has memory issues with short term Attention span and concentration: good Language: expansive Fund of knowledge: average Mood: Euthymic Mood, reports being nervous and anxious with discharge Affect: flat MEDICATIONS ON DISCHARGE: See Medication Reconciliation PLAN/FOLLOWUP ARRANGEMENTS: CCBRENDAN The amount of time spent in the coordination of care for this patient was approximately 25 minutes. ETOH/Disorder Med Rx ETOH/DRUG DISORDER RX: Offrd @ d/c & pt refused Vital Signs/I&Os Vital Signs Date Time Temp Pulse Resp B/P (MAP) Pulse Ox O2 Delivery O2 Flow Rate FiO2 05/26/20 07:55 96 114/79 05/26/20 06:31 99.7 16 96 Room Air 05/25/20 09:49 4.0 Medications Scheduled Amlodipine Besylate (Amlodipine Besylate) 5 Mg Tablet, 5 MG PO DAILY, (Reported) Aspirin (Aspirin EC) 81 Mg Tablet.dr, 81 MG PO DAILY, (Reported) Atorvastatin Calcium (Atorvastatin Calcium) 10 Mg Tablet, 10 MG PO DAILY, (Reported) Buspirone HCl (Buspirone HCl) 15 Mg Tablet, 15 MG PO BID for anxiety, #14 Citalopram Hydrobromide (Citalopram HBr) 40 Mg Tablet, 40 MG PO DAILY for Mood, #7 Cyanocobalamin (Vitamin B-12) (Vitamin B-12) 1,000 Mcg Tab, 1,000 MCG PO DAILY, (Reported) Folic Acid (Folic Acid) 1 Mg Tab, 1 MG PO DAILY, (Reported) Gabapentin (Gabapentin) 100 Mg Capsule, 100 MG PO BID, #30 Levocetirizine Dihydrochloride (Levocetirizine Dihydrochloride) 5 Mg Tab, 5 MG PO DAILY, (Reported) Magnesium Oxide (Magnesium Oxide) 400 Mg Tablet, 400 MG PO DAILY, (Reported) Montelukast Sodium (Singulair) 10 Mg Tab, 10 MG PO DAILY, (Reported) Multivitamins (Thera M Plus Tablet) 1 Tab Tab, 1 TAB PO DAILY, (Reported) Oxybutynin Chloride (Oxybutynin Chloride ER) 5 Mg Tab, 5 MG PO DAILY, (Reported) Pantoprazole Sodium (Pantoprazole Sodium) 40 Mg Tab, 40 MG PO DAILY, (Reported) Salmeterol/Fluticasone (Advair 500-50 Diskus) 28 Puff/Inhaler Aerp, 1 PUFF INH BID, (Reported) Sulfamethoxazole/Trimethoprim (Sulfamethoxazole-Tmp Ds Tablet) 800 Mg-160 Mg Tablet, 1 TAB PO BID for Cellulitis, #25 Thiamine HCl (Vitamin B-1) 50 Mg Tab, 100 MG PO DAILY, (Reported) Umeclidinium [place] (Incruse Ellipta) 62.5 Mcg/Inh Inh, 1 PUFF INH DAILY, (Reported) Scheduled PRN Acetaminophen (Tylenol Extra Strength) 500 Mg Tablet, 1,000 MG PO Q6H PRN for PAIN, (Reported) Albuterol Sulfate (Ventolin Hfa) 108 Mcg/Act Aer, 2 PUFFS INH Q4H PRN for SHORTNESS OF BREATH, (Reported) Epinephrine (Epinephrine) 0.3 Mg/0.3 Ml Inj, 0.3 MG INJ ASDIRECTED PRN for ANAPHYLAXIS, (Reported) Guaifenesin (Mucinex) 600 Mg Tab.er.12h, 600 MG PO BID PRN for CONGESTION, (Reported) Hydroxyzine HCl (Hydroxyzine HCl) 25 Mg Tab, 25 MG PO TID PRN for ITCHING, (Reported) Ipratropium/Albuterol Sulfate (Iprat-Albut 0.5-3(2.5) mg/3 ml) 1 Bell Bell, 1 VIAL INH QID PRN for SHORTNESS OF BREATH, (Reported) Olopatadine HCl (Olopatadine HCl) 0.1% 5ML Drops, 1 DROP OU BID PRN for ITCHING, (Reported) Polyvinyl Alcohol (Artificial Tears) 1.4 % Bell, 1 DROP OU QID PRN for DRY EYES, (Reported) Trazodone HCl (Trazodone HCl) 50 Mg Tablet, 50 MG PO QHS PRN for SLEEP, (Reported) Allergies Coded Allergies: ROMULO Inhibitors (Verified Allergy, Severe, ANGIOEDEMA, 11/26/19) azithromycin (Verified Allergy, Severe, ANAPHYLAXIS, 11/26/19) oseltamivir (Verified Allergy, Severe, ANAPHYLAXIS, 11/26/19) latex (Verified Allergy, Intermediate, HIVES, EDEMA, 01/29/20) SEASONAL ALLERGIES (Verified Allergy, Unknown, 11/26/19) JANINE LOERA NP May 26, 2020 14:59
[2020-05-27] MEDS ORDERED: BACT800T5 PO (01:59)
[2020-05-27] MEDS ORDERED: CELE40TA PO (01:59)
[2020-05-27] MEDS ORDERED: GABA-1171 PO (01:59)
[2020-05-27] MEDS ORDERED: BUSP15TA47 PO (01:59)
== END 2020-05-26 11:15 | disposition home or self-care (01) | DRG 753 ==
LOC: EDBD 17:55 → M ED 17:55 → M ED INP 05-14 09:23 → M PSY 05-14 11:42
PROVIDERS: ADMIT Psychiatry & Neurology Child & Adolescent Psychiatry; ATTEND Psychiatry & Neurology Psychiatry
DX: F31.9 Bipolar disorder, unspecified (principal); F10.96 Alcohol use, unspecified with alcohol-induced persisting amnestic disorder; F17.210 Nicotine dependence, cigarettes, uncomplicated; L03.115 Cellulitis of right lower limb; J44.9 Chronic obstructive pulmonary disease, unspecified; K76.0 Fatty (change of) liver, not elsewhere classified; M25.572 Pain in left ankle and joints of left foot; R10.9 Unspecified abdominal pain; R45.851 Suicidal ideations; R06.00 Dyspnea, unspecified; Z88.1 Allergy status to other antibiotic agents; Z88.8 Allergy status to other drugs, medicaments and biological substances; Z91.040 Latex allergy status; Z79.899 Other long term (current) drug therapy; Z56.0 Unemployment, unspecified; Z90.49 Acquired absence of other specified parts of digestive tract; Z99.81 Dependence on supplemental oxygen; Z87.19 Personal history of other diseases of the digestive system; Z20.822 Contact with and (suspected) exposure to COVID-19

== ENCOUNTER 2020-05-26 23:30 | Observation (INO) | payer OTHER ==
[~2020-05-26] VITALS: Ht 172.7 cm; Wt 75.0 kg
[~2020-05-26 23:30] MED LIST changes: +SULF1TAB23 PO
[2020-05-26] MEDS ORDERED: CEFTAROLINE FOSAMIL 600 MG in D5W MINI-BAG PLUS 50 ML IV ONE (23:45)
[2020-05-27 00:07] LABS: BASO % 0.4 % (0.0-1.0); EOS # 0.2 10^3/uL (0.0-0.5); EOS % 1.4 % (0.0-3.0); HEMATOCRIT 35.7 % (42.0-52.0); HEMOGLOBIN 11.8 g/dl (13.5-17.5); LYMPH # 1.8 10^3/uL (1.5-5.0); LYMPH % 16.1 % (24.0-44.0); MEAN CORPUSCULAR HEMOGLOBIN 29.4 pg (27.0-33.0); MEAN CORPUSCULAR HGB CONC 33.1 g/dl (32.0-36.5); MONO # 1.3 10^3/uL (0.0-0.8); MONO % 11.7 % (2.0-8.0); NEUTROPHILS % 69.7 % (36.0-66.0); PLATELET COUNT, AUTOMATED 204 10^3/uL (150-450); RED BLOOD COUNT 4.01 10^6/uL (4.30-6.10); WHITE BLOOD COUNT 11.4 10^3/uL (4.0-10.0)
[2020-05-27 00:45] LABS: ALBUMIN 3.7 GM/DL (3.2-5.2); ALT/SGPT 21 U/L (12-78); BILIRUBIN,DIRECT 0.1 MG/DL (0.0-0.2); BILIRUBIN,TOTAL 0.2 MG/DL (0.2-1.0); BLOOD UREA NITROGEN 21 MG/DL (7-18); C REACTIVE PROTEIN QUANTITATIV 2.09 MG/DL (0.00-0.30); CARBON DIOXIDE LEVEL 27 MEQ/L (21-32); CHLORIDE LEVEL 101 MEQ/L (98-107); CREATININE FOR GFR 0.94 MG/DL (0.70-1.30); GLOMERULAR FILTRATION RATE > 60.0 (>56); GLUCOSE, FASTING 128 MG/DL (70-100); NT-PRO BNP 72 PG/ML (<125); SODIUM LEVEL 135 MEQ/L (136-145); TOTAL PROTEIN 6.9 GM/DL (6.4-8.2)
--- NOTE | 2020-05-27 01:05 | REPVR ---
PROCEDURE INFORMATION: Exam: XR Left Foot Exam date and time: 05/27/2020 12:34 AM Age: 55 years old Clinical indication: Pain; Foot; Left; Additional info: Dyspnea/cough TECHNIQUE: Imaging protocol: XR Left foot. Views: 3 or more views. COMPARISON: CR Foot, complete LEFT 05/24/2020 1:14 PM FINDINGS: Bones/joints: Normal. No fracture. Soft tissues: Slight soft tissue swelling of the foot. IMPRESSION: 1. Slight soft tissue swelling dorsally. 2. Otherwise negative left foot. No fracture. Electronically signed by: Alexys Miramontes On 05/27/2020 01:05:34 AM
--- NOTE | 2020-05-27 01:06 | REPVR ---
PROCEDURE INFORMATION: Exam: XR Chest Exam date and time: 05/27/2020 12:34 AM Age: 55 years old Clinical indication: Cough and dyspnea; Additional info: Dyspnea/cough TECHNIQUE: Imaging protocol: XR of the chest Views: 1 view. COMPARISON: CR PORTABLE CHEST X-RAY 04/01/2020 12:58 PM FINDINGS: Lungs: Mild pulmonary hyperinflation which is unchanged from the prior study. No interval infiltrates. Pleural spaces: Unremarkable. No pleural effusion. No pneumothorax. Heart/Mediastinum: Unremarkable. No cardiomegaly. Bones/joints: Unremarkable. IMPRESSION: Stable essentially negative chest since 04/01/2020. No acute interval process is identified. Electronically signed by: Alexys Miramontes On 05/27/2020 01:06:39 AM
[2020-05-27 01:47] LABS: ERYTHROCYTE SEDIMENTATION RATE 44 mm/hr (0-20)
--- NOTE | 2020-05-27 01:49 | REPVR ---
PROCEDURE INFORMATION: Exam: US Duplex Left Lower Extremity Veins, Limited Exam date and time: 05/27/2020 1:34 AM Age: 55 years old Clinical indication: Pain; Foot; Left; Additional info: Pain/ redness TECHNIQUE: Imaging protocol: Real-time Duplex ultrasound of the Left Lower Extremity with 2-D bermudez scale, color Doppler flow and spectral waveform analysis with image documentation. Limited exam focused on the left lower extremity veins. COMPARISON: US Duplex, Ext LOWER veins, bilat BILATERAL 05/22/2020 9:36 PM FINDINGS: Left deep veins: Unremarkable. The common femoral, femoral, proximal profunda femoral and popliteal veins are patent without thrombus. Normal Doppler waveforms. Normal compressibility and/or augmentation response. Left superficial veins: Unremarkable. Saphenofemoral junction is patent without thrombus. Soft tissues: Unremarkable. IMPRESSION: Negative left lower extremity venous duplex exam without evidence of deep venous thrombosis. Electronically signed by: Alexys Miramontes On 05/27/2020 01:49:26 AM
[2020-05-27] MEDS ORDERED: CELE40TA PO (01:59)
[2020-05-27] MEDS ORDERED: GABA-1171 PO (01:59)
[2020-05-27] MEDS ORDERED: BUSP15TA47 PO (01:59)
[2020-05-27] MEDS ORDERED: BACT800T5 PO (01:59)
[2020-05-27 02:35] LABS: RSV AMPLIFICATION NEGATIVE (NEGATIVE)
[2020-05-27] MEDS ORDERED: ALBUTEROL 90 MCG/ACT 8GM HFA INHALER INH PRN (02:35)
[2020-05-27] MEDS ORDERED: traZODone 50 MG TAB PO PRN (02:35)
[2020-05-27] MEDS ORDERED: POLYVINYL ALCOHOL OPHTH SOLN 15 ML(LIQUITEARS) OU PRN (02:35)
[2020-05-27] MEDS ORDERED: guaiFENesin ER 600 MG TAB PO PRN (02:35)
[2020-05-27] MEDS ORDERED: IPRATROPIUM 0.5MG/ALBUTEROL 2.5MG INH SOL UD 3ML (DUONEB) INH PRN (02:35)
[2020-05-27] MEDS ORDERED: CLINDAMYCIN 300 MG in IV 1 EA IV SCH (03:00)
[2020-05-27] MEDS ORDERED: ACETAMINOPHEN 500 MG TAB PO PRN (03:00)
--- NOTE | 2020-05-27 03:26 | HPEPDOC ---
General Date of Admission Date of Service: May 27, 2020 Attending Physician: OSVALDO MAYFIELD MD Chief Complaint The patient is a 55-year-old male admitted with a reason for visit of Left Leg I s Swollen. History of Present Illness HPI: This is a 55 year old male who had just been discharged from [facility] for MDD and while he was there, medicine was consulted for L foot cellulitis and previous XR of ankle and foot reports questionable chip fracture at medial malleolar tip. Pt was given a course of bactrim DS1 tablet BID upon discharge and instructed to take for 7 days and to f/u with PCP afterwards. Pt states that he took the abx as prescribed for a day but the L foot continues to get progressively more erythematous, swollen,more tender to touch and now he can barely put weight on his L foot. He states that at the last hospitalization, the pain and redness and swelling would be alleviated with elevation of his foot. However, this time, icing and elevation did not resolve his symptoms. In the ER, XR foot shows slight soft tissue swelling dorsally, but not fractures. He denies any injury to his foot. Also denies any CP, SOB, abd discomfort, fever, n/v/d. PAST MEDICAL Hx: Severe COPD, Gold III, asthma overlap, chronic respiratory failure with hypoxia Hypertension Chronic alcohol abuse Alcohol hepatitis Hx of severe alcoholic cardiomyopathy, EF of 15% on ECHO in 2017 Repeat ECHO in 2018- EF of 55%,AVS, mild AR, MR Allergic rhinitis conjunctivitis GERD nicotine abuse reflux, major depressive disorder generalized anxiety disorder IgM deficiency, chronic thrombocytopenia B12 deficiency chronic pruritus overactive bladder PAST SURGICAL Hx: Varicocele ligation cardiac cath in 2013, and 2017 lap cholecystectomy 2019 ALLERGIES: ROMULO inhibitors causing angioedema, azithromycin, anaphylaxis, latex, hives and edema, Oseltamivir causing anaphylaxis. Seasonal allergies. FAMILY Hx: Father at 80, HTN Mother- HTN SOCIAL Hx: Prior history of alcohol abuse, still drinks occasionally Current smoker- less than 1 pack/day. Denies illicit drug use On chronic disability IMAGING: XR foot : Slight soft tissue swelling dorsally. Otherwise negative left foot. No fracture XR chest:Stable essentially negative chest since 04/01/2020. No acute interval process is identified Venous doppler U/S of L lower extr: Negative left lower extremity venous duplex exam without evidence of deep venous thrombosis. PHYSICAL EXAM: VS: see below GENERAL: Pt is laying comfortably, NAD HEENT: EOMI. Conjunctiva and lids normal. CARDIOVASCULAR: Regular rate and rhythm. No murmurs, rubs, or gallops appreciated. no crackles PULMONARY: wheezing appreciated throughout ABD: No tenderness to palpation. Normoactive bowel sounds to all four quadrants. No guarding on palpation EXTREMITIES: 2+ DP pulses. no lower extr pitting edema. SKIN: erythematous, scaly dry skin on L dorsal and medial malleoulous area. tender in medial malleolus on L side. sensation intact, very warm to touch NEURO: No focal neurological deficits. strength 5/5 throughout. sensation intact throughout PSYCH: appropriate mood and affect; no thoughts of self harm or suicidal i deation ASSESSMENT AND PLAN: This is a 55 y.o male with multiple co-morbidities admitted for treatment of cellulitis. Pt will be started on abx and blood cultures will be ordered. #L foot cellulitis - mild leukocytosis - Pt took 1 day course of bactrim - XR foot- no acute processes; slight soft tissue swelling dorsally - No abscess or drainage seen on foot - Prior xr foot and ankle shows questionable chip fracture at medial malleolar tip - am team to follow up w/ podiatry or ortho to follow up as needed as pt has severe tenderness in L medial malleolus region- consider CT scan - will start on IV cefipime and vanco - will order for Mrsa PCR - elevated acute inflammatory markers on admission- will order for daily CRP trend - tylenol for pain # HTN - c/w home meds - 2g Na diet #CAD - c/w ASA - c/w statin #HFpEF -XR chest Stable essentially negative chest since 04/01/2020. No acute interval process - not in decompensated states - c/w home meds - daily weight ins and strict in and outs #COPD - not in exacerbation - O2 titration orders to titrate O2 between 88-92% - C/w home meds - educated again about smoking cessation #MDD - no suicidal ideation or thoughts of self harm; appropriate mood and affect - c/w home meds #GERD - c/w home protonix #Overactive bladder -cw home oxybutynin #B12 def - c/w home med #Folate def c/w home med DVT ppx: lovenox Code status: Full Home Medications Scheduled Amlodipine Besylate (Amlodipine Besylate) 5 Mg Tablet, 5 MG PO DAILY, (Reported) Aspirin (Aspirin EC) 81 Mg Tablet.dr, 81 MG PO DAILY, (Reported) Atorvastatin Calcium (Atorvastatin Calcium) 10 Mg Tablet, 10 MG PO DAILY, (Reported) Buspirone HCl (Buspirone HCl) 15 Mg Tablet, 15 MG PO BID, (Reported) Citalopram Hydrobromide (Celexa) 40 Mg Tablet, 40 MG PO DAILY, (Reported) Cyanocobalamin (Vitamin B-12) (Vitamin B-12) 1,000 Mcg Tab, 1,000 MCG PO DAILY, (Reported) Folic Acid (Folic Acid) 1 Mg Tab, 1 MG PO DAILY, (Reported) Gabapentin (Gabapentin) 100 Mg Capsule, 100 MG PO BID, (Reported) Levocetirizine Dihydrochloride (Levocetirizine Dihydrochloride) 5 Mg Tab, 5 MG PO DAILY, (Reported) Magnesium Oxide (Magnesium Oxide) 400 Mg Tablet, 400 MG PO DAILY, (Reported) Montelukast Sodium (Singulair) 10 Mg Tab, 10 MG PO DAILY, (Reported) Multivitamins (Thera M Plus Tablet) 1 Tab Tab, 1 TAB PO DAILY, (Reported) Oxybutynin Chloride (Oxybutynin Chloride ER) 5 Mg Tab, 5 MG PO DAILY, (Reported) Pantoprazole Sodium (Pantoprazole Sodium) 40 Mg Tab, 40 MG PO DAILY, (Reported) Salmeterol/Fluticasone (Advair 500-50 Diskus) 28 Puff/Inhaler Aerp, 1 PUFF INH BID, (Reported) Sulfamethoxazole/Trimethoprim (Bactrim Ds Tablet) 1 Each Tablet, 1 TAB PO BID, (Reported) HAS NOT STARTED YET Thiamine HCl (Vitamin B-1) 50 Mg Tab, 100 MG PO DAILY, (Reported) Umeclidinium [place] (Incruse Ellipta) 62.5 Mcg/Inh Inh, 1 PUFF INH DAILY, (Reported) Scheduled PRN Acetaminophen (Tylenol Extra Strength) 500 Mg Tablet, 1,000 MG PO Q6H PRN for PAIN, (Reported) Albuterol Sulfate (Ventolin Hfa) 108 Mcg/Act Aer, 2 PUFFS INH Q4H PRN for SHORTNESS OF BREATH, (Reported) Epinephrine (Epinephrine) 0.3 Mg/0.3 Ml Inj, 0.3 MG INJ ASDIRECTED PRN for ANAPHYLAXIS, (Reported) Guaifenesin (Mucinex) 600 Mg Tab.er.12h, 600 MG PO BID PRN for CONGESTION, (Repo rted) Hydroxyzine HCl (Hydroxyzine HCl) 25 Mg Tab, 25 MG PO TID PRN for ITCHING, (Reported) Ipratropium/Albuterol Sulfate (Iprat-Albut 0.5-3(2.5) mg/3 ml) 1 Bell Bell, 3 ML INH QID PRN for SHORTNESS OF BREATH, (Reported) Olopatadine HCl (Olopatadine HCl) 0.1% 5ML Drops, 1 DROP OU BID PRN for ITCHING, (Reported) Polyvinyl Alcohol (Artificial Tears) 1.4 % Bell, 1 DROP OU QID PRN for DRY EYES, (Reported) Trazodone HCl (Trazodone HCl) 50 Mg Tablet, 50 MG PO QHS PRN for INSOMNIA, (Reported) Allergies Coded Allergies: ROMULO Inhibitors (Verified Allergy, Severe, ANGIOEDEMA, 11/26/19) azithromycin (Verified Allergy, Severe, ANAPHYLAXIS, 11/26/19) oseltamivir (Verified Allergy, Severe, ANAPHYLAXIS, 11/26/19) latex (Verified Allergy, Intermediate, HIVES, EDEMA, 01/29/20) SEASONAL ALLERGIES (Verified Allergy, Unknown, 11/26/19) A-FIB/CHADSVASC A-FIB History Current/History of A-Fib/PAF?: No Current PO Anticoag Therapy: No Vital Signs Vital Signs Date Time Temp Pulse Resp B/P (MAP) Pulse Ox O2 Delivery O2 Flow Rate FiO2 05/27/20 00:45 76 95 05/27/20 00:30 18 Room Air 05/27/20 00:16 116/78 (91) 05/26/20 23:45 99.6 Laboratory Data Labs 24H Laboratory Tests 2 05/26/20 23:52: Immature Granulocyte % (Auto) 0.7, Neutrophils (%) (Auto) 69.7H, Lymphocytes (%) (Auto) 16.1L, Monocytes (%) (Auto) 11.7H, Eosinophils (%) (Auto) 1.4, Basophils (%) (Auto) 0.4, Neutrophils # (Auto) 8.0, Lymphocytes # (Auto) 1.8, Monocytes # (Auto) 1.3H, Eosinophils # (Auto) 0.2, Basophils # (Auto) 0.0, Nucleated Red Blood Cells % (auto) 0.0, Erythrocyte Sedimentation Rate 44H, Anion Gap 7L, Glomerular Filtration Rate > 60.0, Calcium Level 9.0, Total Bilirubin 0.2, Direct Bilirubin 0.1, Aspartate Amino Transf (AST/SGOT) 19, Alanine Aminotransferase (ALT/SGPT) 21, Alkaline Phosphatase 76, C-Reactive Protein, Quantitative 2.09H, PD-Qfe-D-Type Natriuretic Peptide 72, Total Protein 6.9, Albumin 3.7, Albumin/Globulin Ratio 1.2, Thyroid Stimulating Hormone (TSH) 3.270 05/27/20 01:53: Coronavirus (COVID-19)(PCR) NEGATIVE, Influenza Type A (RT-PCR) NEGATIVE, Influenza Type B (RT-PCR) NEGATIVE, Respiratory Syncytial Virus (PCR) NEGATIVE CBC/BMP Laboratory Tests 05/26/20 23:52 Microbiology Microbiology 05/26/20 Blood Culture, Received Pending 05/26/20 Blood Culture, Received Pending Plan / VTE VTE Prophylaxis Ordered?: Yes GME ATTESTATION GME ATTESTATION My faculty preceptor for this patient encounter was physically present during the encounter and was fully available. All aspects of the patient interview, examination, medical decision making process, and medical care plan development were reviewed and approved by the faculty preceptor. The faculty preceptor is aware and concurs with the plan as stated in the body of this note and will attest to such by his/her cosignature. ATTENDING NOTE I, Osvaldo Mayfield MD, have independently examined this patient and performed my own physical exam, as well as reviewed the documentation and edited where necessary. I have discussed in detail with the resident / student the findings and plan of treatment as documented by the resident / student and edited their note. I agree with their findings and treatment plan and have edited their documentation. I will continue to follow the patient during this hospital stay. Bubba Stack DO May 27, 2020 03:26 OSVALDO MAYFIELD MD May 27, 2020 19:19
[2020-05-27] MEDS ORDERED: VANCOMYCIN HCL 1,000 MG, VIAL MATE ADAPTER 1 EACH in NS 250 ML IV SCH (04:45)
[2020-05-27] MEDS: ENOXAPARIN 40MG/0.4ML SYRINGE (J1650 PER 10MG) SC SCH ×2 (04:59→14:33)
[2020-05-27 05:00] VITALS: BP 125/85
[2020-05-27] MEDS ORDERED: VANCOMYCIN HCL 1,000 MG, VIAL MATE ADAPTER 1 EACH in NS 250 ML IV ONE (07:00)
[2020-05-27] MEDS ORDERED: VANCOMYCIN HCL 750 MG, VIAL MATE ADAPTER 1 EACH in NS 250 ML IV ONE (07:00)
[2020-05-27] MEDS: ADVAIR HFA 230/21MCG INHALER INH SCH ×2 (08:04→19:39)
[2020-05-27] MEDS: MULTIVITAMINS/MINERALS THERAP 1 TAB PO SCH (08:44)
[2020-05-27] MEDS: FOLIC ACID 1 MG TAB PO SCH (08:45)
[2020-05-27] MEDS: THIAMINE 100 MG TAB PO SCH (08:45)
[2020-05-27] MEDS: GABAPENTIN 100 MG CAP PO SCH ×2 (08:45→20:15)
[2020-05-27] MEDS: ASPIRIN 81MG ENTERIC TABLET PO SCH (08:45)
[2020-05-27] MEDS: CitaloPRAM (CeleXA) 20 MG TAB PO SCH (08:45)
[2020-05-27] MEDS: MONTELUKAST 10 MG TAB PO SCH (08:46)
[2020-05-27] MEDS: PANTOPRAZOLE 40MG TAB (PROTONIX) PO SCH (08:46)
[2020-05-27] MEDS: CYANOCOBALAMIN 500 MCG TAB PO SCH (08:46)
[2020-05-27] MEDS: oxyBUTYnin *DITROPAN XL* 5 MG TABCR PO SCH (08:47)
[2020-05-27] MEDS: ATORVASTATIN 10 MG TAB PO SCH (08:47)
[2020-05-27] MEDS: amLODIPine 5 MG TAB PO SCH (09:00)
[2020-05-27] MEDS ORDERED: CEFEPIME HCL 2 GM in D5W MINI-BAG PLUS 50 ML IV SCH (09:00)
[2020-05-27] MEDS ORDERED: OLOPATADINE 0.1% OPHTH SOL 5ML(PATANOL) OU PRN (09:00)
[2020-05-27] MEDS ORDERED: ISOVUE-370 76% 100ML VIAL As Ordered ONE (09:01)
[2020-05-27 09:30] VITALS: BP 102/77
--- NOTE | 2020-05-27 10:36 | REP ---
INDICATION: Prior xr foot and ankle shows questionable chip fracture. COMPARISON: X-rays dated 05/24/2020 TECHNIQUE: Axial noncontrast images through the left ankle with coronal and sagittal reformations. FINDINGS: Diffuse soft tissue swelling about the ankle is appreciated. The osseous structures demonstrate age-related changes and there is no evidence for acute fracture or dislocation. Ankle mortise and joint spaces appear intact. The subtle small cortical irregularity at the tip of the medial malleolus appears to correlate with a small incidental focal area of bony lucency without adjacent cortical break to suspect fracture. IMPRESSION: Diffuse soft tissue swelling. No obvious acute fracture or dislocation. <Electronically signed by Flex Forrest > 05/27/20 [id number]
[2020-05-27] MEDS: busPIRone 5 MG TAB PO SCH ×2 (13:06→20:15)
[2020-05-27 14:00] VITALS: BP 108/74
[2020-05-27] MEDS: VANCOMYCIN HCL 1,000 MG, VIAL MATE ADAPTER 1 EACH in NS 250 ML IV SCH ×2 (14:30→23:44)
--- NOTE | 2020-05-27 15:52 | IPNPDOC ---
Text Note Date of Service The patient was seen on 05/27/20. NOTE Subjective: No any acute events overnight. Patient denies fever, chills, nausea, vomiting diarrhea or dysuria Objective: GENERAL APPEARANCE: NAD HEENT: no scleral icterus, no JVD, EOMI CARDIOVASCULAR: S1S2 LUNGS: CTA ABDOMEN: soft & not tender w palpitation MUSCULOSKELETAL: no cyanosis, left distal lower extremity is swollen around ankle and dorsum of the foot with redness INTEGUMENT: Erythema of left foot and ankle NEUROLOGICAL: cranial nerve function from 2-12 intact intact, follows commands, speech not dysarthric ASSESSMENT AND PLAN: Patient is 55 years old male with past medical history of COPD, hypertension, alcohol abuse presented to the hospital with left ankle and foot erythema and swelling. Left foot cellulitis CT ankle negative for fracture Patient has a history of IgM deficiency which can contribute to development of cellulitis Patient has nonpurulent cellulitis, but MRSA screen positive. I will continue vancomycin, DC cefepime Await blood culture High blood pressure Cardiac diet Blood pressure under control Continue home cardioprotective medications Coronary artery diseases Continue home cardioprotective medications Diastolic CHF Not in acute exacerbation Continue home cardioprotective medications I's and O's COPD Not in acute exacerbation Continue home inhalers Depression Continue home meds GERD PPI by mouth Overactive bladder oxybutynin Folate deficiency C/w home meds VS,Fishbone, I+O VS, Fishbone, I+O Laboratory Tests 05/26/20 23:52 Vital Signs Date Time Temp Pulse Resp B/P (MAP) Pulse Ox O2 Delivery O2 Flow Rate FiO2 05/27/20 14:00 97.6 89 17 108/74 (85) 97 Room Air I&O- Last 24 Hours up to 6 AM 05/27/20 05:59 Intake Total 100 ml Balance 100 ml ELVIRA WHITLOCK DO May 27, 2020 15:52
[2020-05-27 16:20] LABS: BASO % 0.4 % (0.0-1.0); EOS # 0.2 10^3/uL (0.0-0.5); EOS % 2.4 % (0.0-3.0); HEMOGLOBIN 11.5 g/dl (13.5-17.5); LYMPH # 1.9 10^3/uL (1.5-5.0); LYMPH % 23.5 % (24.0-44.0); MEAN CORPUSCULAR HEMOGLOBIN 29.9 pg (27.0-33.0); MEAN CORPUSCULAR HGB CONC 32.9 g/dl (32.0-36.5); MEAN CORPUSCULAR VOLUME 90.9 fl (80.0-96.0); MONO % 12.3 % (2.0-8.0); NEUTROPHILS # 4.9 10^3/uL (1.5-8.5); PLATELET COUNT, AUTOMATED 216 10^3/uL (150-450); RED BLOOD COUNT 3.85 10^6/uL (4.30-6.10)
[2020-05-27 16:52] LABS: ALBUMIN 3.1 GM/DL (3.2-5.2); ALT/SGPT 20 U/L (12-78); BILIRUBIN,TOTAL 0.4 MG/DL (0.2-1.0); BLOOD UREA NITROGEN 16 MG/DL (7-18); CALCIUM LEVEL 8.8 MG/DL (8.5-10.1); CARBON DIOXIDE LEVEL 25 MEQ/L (21-32); CHLORIDE LEVEL 106 MEQ/L (98-107); CREATININE FOR GFR 0.76 MG/DL (0.70-1.30); GLOMERULAR FILTRATION RATE > 60.0 (>56); GLUCOSE, FASTING 123 MG/DL (70-100); POTASSIUM SERUM 4.3 MEQ/L (3.5-5.1); SODIUM LEVEL 138 MEQ/L (136-145)
--- NOTE | 2020-05-27 20:28 | ECGEPIP ---
[facility] - ED Test Date: 2020-05-27 Pat Name: GORDON SERNA Department: Room: [place] [address] Gender: Male Patient Transport Officer: : 1965 Requested By: HARRIS Ryan Order Number: [id number] Reading MD: Stephan Myers Measurements Intervals [place] Rate: 81 P: 57 CT: 160 QRS: 24 QRSD: 96 T: 47 QT: 388 QTc: 450 Interpretive Statements Normal sinus rhythm POOR R WAVE PROGRESSION NSTTW ABNORMALITY(S) SIMILAR TO 05/14/20 Electronically Signed on 05-27-2020 20:27:52 EDT by Stephan Myers
[2020-05-27 22:00] VITALS: BP 116/67
[2020-05-28] MEDS: ENOXAPARIN 40MG/0.4ML SYRINGE (J1650 PER 10MG) SC SCH ×2 (02:54→15:14)
[2020-05-28 05:50] LABS: HEMATOCRIT 36.7 % (42.0-52.0); HEMOGLOBIN 11.8 g/dl (13.5-17.5); MEAN CORPUSCULAR HEMOGLOBIN 29.1 pg (27.0-33.0); MEAN CORPUSCULAR HGB CONC 32.2 g/dl (32.0-36.5); MEAN CORPUSCULAR VOLUME 90.6 fl (80.0-96.0); PLATELET COUNT, AUTOMATED 207 10^3/uL (150-450); RED BLOOD COUNT 4.05 10^6/uL (4.30-6.10); WHITE BLOOD COUNT 7.2 10^3/uL (4.0-10.0)
[2020-05-28 06:00] VITALS: BP 115/66
[2020-05-28] MEDS: VANCOMYCIN HCL 1,000 MG, VIAL MATE ADAPTER 1 EACH in NS 250 ML IV SCH ×2 (06:16→15:18)
[2020-05-28 06:27] LABS: BLOOD UREA NITROGEN 12 MG/DL (7-18); C REACTIVE PROTEIN QUANTITATIV 7.89 MG/DL (0.00-0.30); CALCIUM LEVEL 8.5 MG/DL (8.5-10.1); CARBON DIOXIDE LEVEL 30 MEQ/L (21-32); CHLORIDE LEVEL 105 MEQ/L (98-107); CREATININE FOR GFR 0.67 MG/DL (0.70-1.30); GLOMERULAR FILTRATION RATE > 60.0 (>56); GLUCOSE, FASTING 95 MG/DL (70-100); POTASSIUM SERUM 4.3 MEQ/L (3.5-5.1); SODIUM LEVEL 140 MEQ/L (136-145)
[2020-05-28] MEDS: ADVAIR HFA 230/21MCG INHALER INH SCH ×2 (08:33→19:30)
[2020-05-28] MEDS: CitaloPRAM (CeleXA) 20 MG TAB PO SCH (10:26)
[2020-05-28] MEDS: CYANOCOBALAMIN 500 MCG TAB PO SCH (10:26)
[2020-05-28] MEDS: GABAPENTIN 100 MG CAP PO SCH ×2 (10:27→20:15)
[2020-05-28] MEDS: THIAMINE 100 MG TAB PO SCH (10:27)
[2020-05-28] MEDS: PANTOPRAZOLE 40MG TAB (PROTONIX) PO SCH (10:27)
[2020-05-28] MEDS: MONTELUKAST 10 MG TAB PO SCH (10:27)
[2020-05-28] MEDS: oxyBUTYnin *DITROPAN XL* 5 MG TABCR PO SCH (10:27)
[2020-05-28] MEDS: busPIRone 5 MG TAB PO SCH ×2 (10:27→20:15)
[2020-05-28] MEDS: ASPIRIN 81MG ENTERIC TABLET PO SCH (10:27)
[2020-05-28] MEDS: MULTIVITAMINS/MINERALS THERAP 1 TAB PO SCH (10:27)
[2020-05-28] MEDS: FOLIC ACID 1 MG TAB PO SCH (10:28)
[2020-05-28] MEDS: amLODIPine 5 MG TAB PO SCH (10:28)
[2020-05-28] MEDS: ATORVASTATIN 10 MG TAB PO SCH (10:28)
--- NOTE | 2020-05-28 13:52 | IPNPDOC ---
Text Note Date of Service The patient was seen on 05/28/20. NOTE Subjective: Patient developed suicidal ideation, he stated that after discharge he will jump from a bridge. His stated that he is anxious and depressed. Objective: GENERAL APPEARANCE: Anxious male HEENT: no scleral icterus, no JVD, EOMI CARDIOVASCULAR: S1S2 LUNGS: CTA ABDOMEN: soft & not tender w palpitation MUSCULOSKELETAL: no cyanosis, left distal lower extremity is mildly swollen around ankle and dorsum of the foot with mild redness INTEGUMENT: Erythema of left foot and ankle NEUROLOGICAL: cranial nerve function from 2-12 intact intact, follows commands, speech not dysarthric ASSESSMENT AND PLAN: Patient is 55 years old male with past medical history of COPD, hypertension, alcohol abuse presented to the hospital with left ankle and foot erythema and swelling. Left foot cellulitis CT ankle negative for fracture Patient has a history of IgM deficiency which can contribute to development of cellulitis Patient has nonpurulent cellulitis, but MRSA screen positive. Today cellulitis improved. Patient afebrile, does not have leukocytosis. I will change vancomycin IV to doxycycline PO blood culture negative High blood pressure Cardiac diet Blood pressure under control Continue home cardioprotective medications Depression/suicidal ideation Patient will need a transfusion to mental health unit Appreciate/agree with psych consult Sitter Coronary artery diseases Continue home cardioprotective medications Diastolic CHF Not in acute exacerbation Continue home cardioprotective medications I's and O's COPD Not in acute exacerbation Continue home inhalers Depression Continue home meds GERD PPI by mouth Overactive bladder oxybutynin Folate deficiency C/w home meds VS,Fishbone, I+O VS, Fishbone, I+O Laboratory Tests 05/27/20 16:02 05/28/20 05:18 Vital Signs Date Time Temp Pulse Resp B/P (MAP) Pulse Ox O2 Delivery O2 Flow Rate FiO2 05/28/20 10:28 85 118/69 05/28/20 06:00 98.0 18 93 Room Air I&O- Last 24 Hours up to 6 AM 05/28/20 05:59 Intake Total 2065 ml Output Total 1275 ml Balance 790 ml ELVIRA WHITLOCK DO May 28, 2020 13:52
[2020-05-28 14:00] VITALS: BP 120/87
[2020-05-28] MEDS: DOXYCYCLINE HYCLATE 100MG TABLET PO SCH (20:15)
[2020-05-28 22:00] VITALS: BP 121/79
[2020-05-29] MEDS: ENOXAPARIN 40MG/0.4ML SYRINGE (J1650 PER 10MG) SC SCH ×2 (03:52→15:36)
[2020-05-29 06:00] VITALS: BP 127/76
[2020-05-29 06:18] LABS: HEMATOCRIT 37.3 % (42.0-52.0); HEMOGLOBIN 12.1 g/dl (13.5-17.5); MEAN CORPUSCULAR HEMOGLOBIN 29.1 pg (27.0-33.0); MEAN CORPUSCULAR HGB CONC 32.4 g/dl (32.0-36.5); MEAN CORPUSCULAR VOLUME 89.7 fl (80.0-96.0); PLATELET COUNT, AUTOMATED 238 10^3/uL (150-450); RED BLOOD COUNT 4.16 10^6/uL (4.30-6.10); WHITE BLOOD COUNT 6.4 10^3/uL (4.0-10.0)
[2020-05-29 06:46] LABS: BLOOD UREA NITROGEN 12 MG/DL (7-18); C REACTIVE PROTEIN QUANTITATIV 3.64 MG/DL (0.00-0.30); CALCIUM LEVEL 8.9 MG/DL (8.5-10.1); CARBON DIOXIDE LEVEL 29 MEQ/L (21-32); CHLORIDE LEVEL 105 MEQ/L (98-107); CREATININE FOR GFR 0.71 MG/DL (0.70-1.30); GLOMERULAR FILTRATION RATE > 60.0 (>56); GLUCOSE, FASTING 103 MG/DL (70-100); POTASSIUM SERUM 4.1 MEQ/L (3.5-5.1); SODIUM LEVEL 138 MEQ/L (136-145)
[2020-05-29] MEDS: ADVAIR HFA 230/21MCG INHALER INH SCH ×2 (09:15→19:12)
[2020-05-29] MEDS: GABAPENTIN 100 MG CAP PO SCH ×2 (09:21→20:51)
[2020-05-29] MEDS: MONTELUKAST 10 MG TAB PO SCH (09:21)
[2020-05-29] MEDS: CitaloPRAM (CeleXA) 20 MG TAB PO SCH (09:21)
[2020-05-29] MEDS: PANTOPRAZOLE 40MG TAB (PROTONIX) PO SCH (09:21)
[2020-05-29] MEDS: ASPIRIN 81MG ENTERIC TABLET PO SCH (09:21)
[2020-05-29] MEDS: DOXYCYCLINE HYCLATE 100MG TABLET PO SCH ×2 (09:22→20:51)
[2020-05-29] MEDS: MULTIVITAMINS/MINERALS THERAP 1 TAB PO SCH (09:22)
[2020-05-29] MEDS: CYANOCOBALAMIN 500 MCG TAB PO SCH (09:22)
[2020-05-29] MEDS: ATORVASTATIN 10 MG TAB PO SCH (09:22)
[2020-05-29] MEDS: busPIRone 5 MG TAB PO SCH ×2 (09:22→20:51)
[2020-05-29] MEDS: THIAMINE 100 MG TAB PO SCH (09:22)
[2020-05-29] MEDS: oxyBUTYnin *DITROPAN XL* 5 MG TABCR PO SCH (09:22)
[2020-05-29] MEDS: FOLIC ACID 1 MG TAB PO SCH (09:22)
[2020-05-29 09:23] VITALS: BP 126/79
[2020-05-29] MEDS: amLODIPine 5 MG TAB PO SCH (09:23)
[2020-05-29 14:00] VITALS: BP 120/80
[2020-05-29] MEDS ORDERED: DOXY100T PO (15:50)
--- NOTE | 2020-05-29 17:19 | DS.PDOC ---
Discharge Summary General Date of Admission May 26, 2020 at 23:31 Date of Discharge 05/29/20 Discharge Summary PROCEDURES PERFORMED DURING STAY: [None]. ADMITTING DIAGNOSES: Left foot cellulitis High blood pressure Depression/suicidal ideation Diastolic CHF Coronary artery diseases COPD Depression GERD Overactive bladder Folate deficiency DISCHARGE DIAGNOSES: Left foot cellulitis High blood pressure Depression/suicidal ideation Diastolic CHF Coronary artery diseases COPD Depression GERD Overactive bladder Folate deficiency COMPLICATIONS/CHIEF COMPLAINT: Cellulitis. HISTORY OF PRESENT ILLNESS: This is a 55 year old male who had just been discharged from [facility] for MDD and while he was there, medicine was consulted for L foot cellulitis and previous XR of ankle and foot reports questionable chip fracture at medial malleolar tip. Pt was given a course of bactrim DS1 tablet BID upon discharge and instructed to take for 7 days and to f/u with PCP afterwards. Pt states that he took the abx as prescribed for a day but the L foot continues to get progressively more erythematous, swollen,more tender to touch and now he can barely put weight on his L foot. He states that at the last hospitalization, the pain and redness and swelling would be alleviated with elevation of his foot. However, this time, icing and elevation did not resolve his symptoms. In the ER, XR foot shows slight soft tissue swelling dorsally, but not fractures. He denies any injury to his foot. Also denies any CP, SOB, abd discomfort, fever, n/v/d. HOSPITAL COURSE: During this hospital stay the following issues addressed Left foot cellulitis CT ankle negative for fracture Patient has a history of IgM deficiency which can contribute to development of cellulitis Patient has nonpurulent cellulitis, but MRSA screen positive. Today cellulitis improved. Patient afebrile, does not have leukocytosis. I will change vancomycin IV to doxycycline PO blood culture negative High blood pressure Cardiac diet Blood pressure under control Continue home cardioprotective medications Depression/suicidal ideation Patient will need a transfer to mental health unit Sitter Coronary artery diseases Continue home cardioprotective medications Diastolic CHF Not in acute exacerbation Continue home cardioprotective medications I's and O's COPD Not in acute exacerbation Continue home inhalers Depression Continue home meds GERD PPI by mouth Overactive bladder oxybutynin Folate deficiency C/w home meds DISCHARGE MEDICATIONS: Please see below. ALLERGIES: Please see below. PHYSICAL EXAMINATION ON DISCHARGE: VITAL SIGNS: Please see below. GENERAL APPEARANCE: Anxious male HEENT: no scleral icterus, no JVD, EOMI CARDIOVASCULAR: S1S2 LUNGS: CTA ABDOMEN: soft & not tender w palpitation MUSCULOSKELETAL: no cyanosis, left distal lower extremity is mildly swollen around ankle and dorsum of the foot with mild redness INTEGUMENT: Erythema of left foot and ankle NEUROLOGICAL: cranial nerve function from 2-12 intact intact, follows commands, speech not dysarthric LABORATORY DATA: Please see below. IMAGING: See above PROGNOSIS: Fair ACTIVITY: [As tolerated]. DIET: Cardiac DISCHARGE PLAN:[facility] ITEMS TO FOLLOWUP ON ON OUTPATIENT: Follow-up with PCP in psych team DISCHARGE CONDITION: [Stable]. TIME SPENT ON DISCHARGE: 40 minutes. Vital Signs/I&Os Vital Signs Date Time Temp Pulse Resp B/P (MAP) Pulse Ox O2 Delivery O2 Flow Rate FiO2 05/29/20 14:00 99.2 84 16 120/80 (93) 95 05/29/20 06:00 Nasal Cannula 2.0 I&O- Last 24 Hours up to 6 AM 05/29/20 06:00 Intake Total 2220 ml Balance 2220 ml Laboratory Data Labs 24H Laboratory Tests 2 05/29/20 05:31: Nucleated Red Blood Cells % (auto) 0.0, Anion Gap 4L, Glomerular Filtration Rate > 60.0, Calcium Level 8.9, C-Reactive Protein, Quantitative 3.64H CBC/BMP Laboratory Tests 05/29/20 05:31 Microbiology Microbiology 05/26/20 Blood Culture - Preliminary, Resulted No Growth after 48 hours. All Specime... 05/26/20 Blood Culture - Preliminary, Resulted No Growth after 48 hours. All Specime... Discharge Medications Scheduled Amlodipine Besylate (Amlodipine Besylate) 5 Mg Tablet, 5 MG PO DAILY, (Reported) Aspirin (Aspirin EC) 81 Mg Tablet.dr, 81 MG PO DAILY, (Reported) Atorvastatin Calcium (Atorvastatin Calcium) 10 Mg Tablet, 10 MG PO DAILY, (Reported) Buspirone HCl (Buspirone HCl) 15 Mg Tablet, 15 MG PO BID, (Reported) Citalopram Hydrobromide (Celexa) 40 Mg Tablet, 40 MG PO DAILY, (Reported) Cyanocobalamin (Vitamin B-12) (Vitamin B-12) 1,000 Mcg Tab, 1,000 MCG PO DAILY, (Reported) Doxycycline Hyclate (Doxycycline Hyclate) 100 Mg Tablet, 100 MG PO BID Folic Acid (Folic Acid) 1 Mg Tab, 1 MG PO DAILY, (Reported) Gabapentin (Gabapentin) 100 Mg Capsule, 100 MG PO BID, (Reported) Levocetirizine Dihydrochloride (Levocetirizine Dihydrochloride) 5 Mg Tab, 5 MG PO DAILY, (Reported) Magnesium Oxide (Magnesium Oxide) 400 Mg Tablet, 400 MG PO DAILY, (Reported) Montelukast Sodium (Singulair) 10 Mg Tab, 10 MG PO DAILY, (Reported) Multivitamins (Thera M Plus Tablet) 1 Tab Tab, 1 TAB PO DAILY, (Reported) Oxybutynin Chloride (Oxybutynin Chloride ER) 5 Mg Tab, 5 MG PO DAILY, (Reported) Pantoprazole Sodium (Pantoprazole Sodium) 40 Mg Tab, 40 MG PO DAILY, (Reported) Salmeterol/Fluticasone (Advair 500-50 Diskus) 28 Puff/Inhaler Aerp, 1 PUFF INH BID, (Reported) Thiamine HCl (Vitamin B-1) 50 Mg Tab, 100 MG PO DAILY, (Reported) Umeclidinium [place] (Incruse Ellipta) 62.5 Mcg/Inh Inh, 1 PUFF INH DAILY, (Reported) Scheduled PRN Acetaminophen (Tylenol Extra Strength) 500 Mg Tablet, 1,000 MG PO Q6H PRN for PAIN, (Reported) Albuterol Sulfate (Ventolin Hfa) 108 Mcg/Act Aer, 2 PUFFS INH Q4H PRN for SHORTNESS OF BREATH, (Reported) Epinephrine (Epinephrine) 0.3 Mg/0.3 Ml Inj, 0.3 MG INJ ASDIRECTED PRN for ANAPHYLAXIS, (Reported) Guaifenesin (Mucinex) 600 Mg Tab.er.12h, 600 MG PO BID PRN for CONGESTION, (Reported) Hydroxyzine HCl (Hydroxyzine HCl) 25 Mg Tab, 25 MG PO TID PRN for ITCHING, (Reported) Ipratropium/Albuterol Sulfate (Iprat-Albut 0.5-3(2.5) mg/3 ml) 1 Bell Bell, 3 ML INH QID PRN for SHORTNESS OF BREATH, (Reported) Olopatadine HCl (Olopatadine HCl) 0.1% 5ML Drops, 1 DROP OU BID PRN for ITCHING, (Reported) Polyvinyl Alcohol (Artificial Tears) 1.4 % Bell, 1 DROP OU QID PRN for DRY EYES, (Reported) Trazodone HCl (Trazodone HCl) 50 Mg Tablet, 50 MG PO QHS PRN for INSOMNIA, (Reported) Allergies Coded Allergies: ROMULO Inhibitors (Verified Allergy, Severe, ANGIOEDEMA, 11/26/19) azithromycin (Verified Allergy, Severe, ANAPHYLAXIS, 11/26/19) oseltamivir (Verified Allergy, Severe, ANAPHYLAXIS, 11/26/19) latex (Verified Allergy, Intermediate, HIVES, EDEMA, 01/29/20) SEASONAL ALLERGIES (Verified Allergy, Unknown, 11/26/19) ELVIRA WHITLOCK DO May 29, 2020 17:19
[2020-05-29] MEDS ORDERED: MOM 30ML SUSPENSION UDC PO PRN (21:15)
[2020-05-29] MEDS ORDERED: MAALOX 30 ML SUSP *UDC PO PRN (21:15)
[2020-05-29] MEDS ORDERED: ACETAMINOPHEN TAB 650MG DOSE (2X325MG) PO PRN (21:15)
[2020-05-29] MEDS ORDERED: traZODone 50 MG TAB PO PRN (21:15)
[2020-05-29 22:00] VITALS: BP 121/78
--- NOTE | 2020-05-31 10:27 | MHCR ---
[facility] CONSULTATION DATE: 05/29/2020 HISTORY OF PRESENT ILLNESS: I was asked to see this 55-year-old man because the patient was hospitalized for cellulitis and when he was told he was going to get discharged today he said that he was depressed and suicidal with thoughts of jumping from a bridge. Of note the patient was just in the Psychiatric Unit at [facility] from 05/14/2020-05/26/2020 and diagnosed with unspecified bipolar disorder, alcohol use disorder, rule out Korsakoff's dementia and he was discharged on citalopram 40 mg once daily and according to the records the Discharge Summary said that the patient was stable at the time, but the patient tells me today that he really did not feel ready to be discharged from the hospital at the time. He had actually been admitted to the Psychiatric Unit for the same reasons of depression and he said he was suicidal with thoughts of jumping from a bridge. He states that he has been depressed for quite a while now feeling hopeless and helpless. Please refer to both Admission and Discharge Records for further details of this patient's history and treatment. PAST PSYCHIATRIC HISTORY: The patient has had 2-3 prior psychiatric admissions. He has never actually made any suicide attempts. PAST MEDICAL HISTORY: 1. COPD and is oxygen dependent. 2. Asthma. 3. Seasonal allergies. SUBSTANCE ABUSE: The patient has a problem with abusing alcohol. MENTAL STATUS EXAM: This patient was alert and oriented times 3. He is pleasant and cooperative. He is verbally spontaneous. There is no formal thought disorder noted. He said he was depressed and his affect was appropriate. He is not psychotic. The patient reports suicidal thoughts, but denies homicidal thoughts. Concentration is fair. Memory is grossly intact and his insight and judgment is poor. DIAGNOSES: 1. Major depression disorder recurrent, severe without psychotic symptoms. 2. Alcohol use disorder. TREATMENT PLAN: At this point the patient is saying that he is suicidal and depressed and when we do have a bed available at [facility] we will be transferring the patient there. In the meantime he should be maintained on a 1:1 sitter.
== END 2020-05-29 22:00 ==
LOC: M ED 23:30 → M ED INP 23:31 → ENRESERV 05-27 04:14 → M MSPAV 05-27 04:50
PROVIDERS: ADMIT Family Medicine; ATTEND Internal Medicine
DX: L03.116 Cellulitis of left lower limb (principal); F33.2 Major depressive disorder, recurrent severe without psychotic features; Z72.89 Other problems related to lifestyle; R45.851 Suicidal ideations; I11.0 Hypertensive heart disease with heart failure; I50.30 Unspecified diastolic (congestive) heart failure; J44.9 Chronic obstructive pulmonary disease, unspecified; Z99.81 Dependence on supplemental oxygen; J45.909 Unspecified asthma, uncomplicated; K21.9 Gastro-esophageal reflux disease without esophagitis; N32.81 Overactive bladder; E53.8 Deficiency of other specified B group vitamins; D80.4 Selective deficiency of immunoglobulin M [IgM]; Z79.899 Other long term (current) drug therapy; Z79.82 Long term (current) use of aspirin; Z79.2 Long term (current) use of antibiotics; Z88.8 Allergy status to other drugs, medicaments and biological substances; Z88.1 Allergy status to other antibiotic agents; Z91.040 Latex allergy status; F17.210 Nicotine dependence, cigarettes, uncomplicated
CPT/HCPCS: 36415; 71045; 73630; 73701; 80048; 80053; 80076; 80202; 83605; 83880; 84443; 85025; 85027; 85652; 86140; 87040; 87631; 87641; 93005; 93041; 93971; 94640; 94760; 96365; 96366; 96367; 96372; 96376; 97161; 99285; J0712; J1650; J3370; Q9967

== ENCOUNTER 2020-05-29 19:54 | Inpatient (IN) | payer OTHER ==
[~2020-05-29] VITALS: Ht 180.3 cm; Wt 79.0 kg
[~2020-05-29 19:54] MED LIST changes: +BACT800T5 PO; +CELE40TA PO
[2020-05-29 22:58] VITALS: BP 135/79
[2020-05-30] MEDS ORDERED: MOM 30ML SUSPENSION UDC PO PRN (04:30)
[2020-05-30] MEDS ORDERED: hydrOXYzine 25 MG TAB PO PRN (04:30)
[2020-05-30] MEDS ORDERED: ACETAMINOPHEN TAB 650MG DOSE (2X325MG) PO PRN (04:30)
[2020-05-30] MEDS ORDERED: MAALOX 30 ML SUSP *UDC PO PRN (04:30)
[2020-05-30 06:22] VITALS: BP 122/77
[2020-05-30] MEDS: ADVAIR HFA 230/21MCG INHALER INH SCH ×2 (07:01→20:44)
[2020-05-30] MEDS: guaiFENesin 200 MG TAB PO SCH ×2 (08:43→20:44)
[2020-05-30] MEDS: ATORVASTATIN 10 MG TAB PO SCH (08:44)
[2020-05-30] MEDS: oxyBUTYnin 5 MG TAB PO SCH (08:44)
[2020-05-30] MEDS: busPIRone 5 MG TAB PO SCH ×2 (08:44→20:44)
[2020-05-30] MEDS: PANTOPRAZOLE 40MG TAB (PROTONIX) PO SCH (08:44)
[2020-05-30] MEDS: CYANOCOBALAMIN 500 MCG TAB PO SCH (08:44)
[2020-05-30] MEDS: MAGNESIUM OXIDE 400MG TAB (MAG-OX) PO SCH (08:45)
[2020-05-30] MEDS: ASPIRIN 81MG ENTERIC TABLET PO SCH (08:45)
[2020-05-30] MEDS: CitaloPRAM (CeleXA) 20 MG TAB PO SCH (08:46)
[2020-05-30] MEDS: CETIRIZINE (ZyrTEC) 10 MG TAB PO SCH (08:46)
[2020-05-30] MEDS: MONTELUKAST 10 MG TAB PO SCH (08:46)
[2020-05-30] MEDS: amLODIPine 5 MG TAB PO SCH (08:46)
[2020-05-30] MEDS: FOLIC ACID 1 MG TAB PO SCH (08:46)
[2020-05-30] MEDS: DOXYCYCLINE HYCLATE 100MG TABLET PO SCH ×2 (08:46→20:44)
[2020-05-30] MEDS: GABAPENTIN 100 MG CAP PO SCH ×2 (08:46→20:44)
[2020-05-30] MEDS: THIAMINE 100 MG TAB PO SCH (08:46)
[2020-05-30] MEDS: MULTIVITAMINS/MINERALS THERAP 1 TAB PO SCH (08:46)
[2020-05-30] MEDS ORDERED: IPRATROPIUM 0.5MG/ALBUTEROL 2.5MG INH SOL UD 3ML (DUONEB) NEB PRN (09:00)
[2020-05-30] MEDS ORDERED: ALBUTEROL 90 MCG/ACT 8GM HFA INHALER INH PRN (09:00)
[2020-05-30] MEDS ORDERED: POLYVINYL ALCOHOL OPHTH SOLN 15 ML(LIQUITEARS) OU PRN ×2 (09:00→14:15)
[2020-05-30] MEDS ORDERED: OLOPATADINE 0.1% OPHTH SOL 5ML(PATANOL) OU PRN (09:00)
--- NOTE | 2020-05-30 15:52 | HPEPDOC ---
[facility] Medical History & Physical Date of Admission May 29, 2020 Date of Service: May 30, 2020 Attending Physician: RACHEL ORELLANA MD History and Physical CHIEF COMPLAINT: Depression HISTORY OF PRESENT ILLNESS: 55 year old M who was recently admitted to medicine for L foot cellulitis and was discharged to the [facility] for severe depression on 05/29/2020 on doxycycline to complete a course for whom medicine is consulted for medical evaluation while in the inpatient mental health unit. He reports that his foot is doing so much better and was laying down to keep it up, is not red and hot any longer and swelling has diminished significantly. He also reports that his mood is better and feels that he is in the right place and where he needs to be right now. He denies any CP, SOB, abd discomfort, fever, n/v/d. PAST MEDICAL Hx: Severe COPD, Gold III, asthma overlap, chronic respiratory failure with hypoxia Hypertension Chronic alcohol abuse Alcohol hepatitis Hx of severe alcoholic cardiomyopathy, EF of 15% on ECHO in 2017 Repeat ECHO in 2018- EF of 55%,AVS, mild AR, MR Allergic rhinitis conjunctivitis GERD nicotine abuse reflux, major depressive disorder generalized anxiety disorder IgM deficiency, chronic thrombocytopenia B12 deficiency chronic pruritus overactive bladder PAST SURGICAL Hx: Varicocele ligation cardiac cath in 2013, and 2017 lap cholecystectomy 2019 ALLERGIES: ROMULO inhibitors causing angioedema, azithromycin, anaphylaxis, latex, hives and edema, Oseltamivir causing anaphylaxis. Seasonal allergies. FAMILY Hx: Father at 80, HTN Mother- HTN SOCIAL Hx: Prior history of alcohol abuse, still drinks occasionally Current smoker- less than 1 pack/day. Denies illicit drug use On chronic disability PHYSICAL EXAM: VS: see below GENERAL: Pt is laying comfortably, NAD HEENT: EOMI. Conjunctiva and lids normal. CARDIOVASCULAR: Regular rate and rhythm. No murmurs, rubs, or gallops appreciated. no crackles PULMONARY: wheezing appreciated throughout ABD: Normoactive bowel sounds in all four quadrants. No tenderness to palpation. Soft. EXTREMITIES: 2+ DP pulses. no lower extr pitting edema. No noted erythema or hotness to touch. SKIN: Scaly dry skin in lower extremities, old border for cellulitis with no erythema. NEURO: No focal neurological deficits. strength 5/5 throughout. sensation intact throughout PSYCH: appropriate mood and affect, no thoughts of self harm or suicidal ideation at this time Labs and Imaging: Reviewed ASSESSMENT: 55 y.o M who was recently admitted to medicine for treatment of cellulitis and doing well on doxycycline and was discharged to the [facility] for severe depression, reportedly doing well. #L foot cellulitis - XR foot- no acute processes; slight soft tissue swelling dorsally - No abscess or drainage seen on foot - Prior xr foot and ankle shows questionable chip fracture at medial malleolar tip - On doxycycline till 06/04/2020 # HTN - c/w home meds - 2g Na diet #CAD - c/w ASA - c/w statin #HFpEF - not in decompensated states - c/w home meds #COPD - not in exacerbation - O2 titration orders to titrate O2 between 88-92%, on 2L at baseline - C/w home meds #MDD - no suicidal ideation or thoughts of self harm; appropriate mood and affect at this time - per psychiatry team #GERD - c/w home protonix #Overactive bladder -cw home oxybutynin #B12 def - c/w home med #Folate def c/w home med DVT ppx: ambulatory, low risk. Code status: Full Vital Signs Vital Signs Date Time Temp Pulse Resp B/P (MAP) Pulse Ox O2 Delivery O2 Flow Rate FiO2 05/30/20 08:46 77 132/84 05/30/20 06:22 99.7 18 95 Room Air Home Medications Scheduled Amlodipine Besylate (Amlodipine Besylate) 5 Mg Tablet, 5 MG PO DAILY Aspirin (Aspirin EC) 81 Mg Tablet.dr, 81 MG PO DAILY Atorvastatin Calcium (Atorvastatin Calcium) 10 Mg Tablet, 10 MG PO DAILY Buspirone HCl (Buspirone HCl) 15 Mg Tablet, 15 MG PO BID Citalopram Hydrobromide (Celexa) 40 Mg Tablet, 40 MG PO DAILY Cyanocobalamin (Vitamin B-12) (Vitamin B-12) 1,000 Mcg Tab, 1,000 MCG PO DAILY Doxycycline Hyclate (Doxycycline Hyclate) 100 Mg Tablet, 100 MG PO BID Folic Acid (Folic Acid) 1 Mg Tab, 1 MG PO DAILY Gabapentin (Gabapentin) 100 Mg Capsule, 100 MG PO BID Levocetirizine Dihydrochloride (Levocetirizine Dihydrochloride) 5 Mg Tab, 5 MG PO DAILY Magnesium Oxide (Magnesium Oxide) 400 Mg Tablet, 400 MG PO DAILY Montelukast Sodium (Singulair) 10 Mg Tab, 10 MG PO DAILY Multivitamins (Thera M Plus Tablet) 1 Tab Tab, 1 TAB PO DAILY Oxybutynin Chloride (Oxybutynin Chloride ER) 5 Mg Tab, 5 MG PO DAILY Pantoprazole Sodium (Pantoprazole Sodium) 40 Mg Tab, 40 MG PO DAILY Salmeterol/Fluticasone (Advair 500-50 Diskus) 28 Puff/Inhaler Aerp, 1 PUFF INH BID Thiamine HCl (Vitamin B-1) 50 Mg Tab, 100 MG PO DAILY Umeclidinium Bascom (Incruse Ellipta) 62.5 Mcg/Inh Inh, 1 PUFF INH DAILY Scheduled PRN Acetaminophen (Tylenol Extra Strength) 500 Mg Tablet, 1,000 MG PO Q6H PRN for PAIN Albuterol Sulfate (Ventolin Hfa) 108 Mcg/Act Aer, 2 PUFFS INH Q4H PRN for SHORTNESS OF BREATH Epinephrine (Epinephrine) 0.3 Mg/0.3 Ml Inj, 0.3 MG INJ ASDIRECTED PRN for ANAPHYLAXIS Guaifenesin (Mucinex) 600 Mg Tab.er.12h, 600 MG PO BID PRN for CONGESTION Hydroxyzine HCl (Hydroxyzine HCl) 25 Mg Tab, 25 MG PO TID PRN for ITCHING Ipratropium/Albuterol Sulfate (Iprat-Albut 0.5-3(2.5) mg/3 ml) 1 Bell Bell, 3 ML INH QID PRN for SHORTNESS OF BREATH Olopatadine HCl (Olopatadine HCl) 0.1% 5ML Drops, 1 DROP OU BID PRN for ITCHING Polyvinyl Alcohol (Artificial Tears) 1.4 % Bell, 1 DROP OU QID PRN for DRY EYES Trazodone HCl (Trazodone HCl) 50 Mg Tablet, 50 MG PO QHS PRN for INSOMNIA Allergies Coded Allergies: ROMULO Inhibitors (Verified Allergy, Severe, ANGIOEDEMA, 11/26/19) azithromycin (Verified Allergy, Severe, ANAPHYLAXIS, 11/26/19) oseltamivir (Verified Allergy, Severe, ANAPHYLAXIS, 11/26/19) latex (Verified Allergy, Intermediate, HIVES, EDEMA, 01/29/20) SEASONAL ALLERGIES (Verified Allergy, Unknown, 11/26/19) A-FIB/CHADSVASC A-FIB History Current/History of A-Fib/PAF?: No Current PO Anticoag Therapy: No Age/Risk Factor Scoring CHADSVASC: CHADSVASC Response (Comments) Value Age Risk Factor Age < 65 years old 0 Gender Risk Factor Male 0 Hx of CHF No 0 Hx of HTN Yes 1 Hx of Stroke/TIA/or VTE No 0 Hx of Diabetes No 0 Hx of Vascular Disease No 0 Total 1 Treatment Treatment ordered: NONE Reason Anticoagulant not given: Not indicated/[id number] RACHEL ORELLANA MD May 30, 2020 15:52
[2020-05-30 16:15] VITALS: BP 141/76
[2020-05-30] MEDS: traZODone 50 MG TAB PO PRN (20:44)
[2020-05-31 06:15] VITALS: BP 115/73
[2020-05-31] MEDS: THIAMINE 100 MG TAB PO SCH (08:48)
[2020-05-31] MEDS: MULTIVITAMINS/MINERALS THERAP 1 TAB PO SCH (08:48)
[2020-05-31] MEDS: PANTOPRAZOLE 40MG TAB (PROTONIX) PO SCH (08:48)
[2020-05-31] MEDS: GABAPENTIN 100 MG CAP PO SCH ×2 (08:48→20:22)
[2020-05-31] MEDS: oxyBUTYnin 5 MG TAB PO SCH (08:48)
[2020-05-31] MEDS: amLODIPine 5 MG TAB PO SCH (08:49)
[2020-05-31] MEDS: ATORVASTATIN 10 MG TAB PO SCH (08:49)
[2020-05-31] MEDS: DOXYCYCLINE HYCLATE 100MG TABLET PO SCH ×2 (08:49→20:22)
[2020-05-31] MEDS: ASPIRIN 81MG ENTERIC TABLET PO SCH (08:49)
[2020-05-31] MEDS: FOLIC ACID 1 MG TAB PO SCH (08:50)
[2020-05-31] MEDS: guaiFENesin 200 MG TAB PO SCH ×2 (08:50→20:25)
[2020-05-31] MEDS: CitaloPRAM (CeleXA) 20 MG TAB PO SCH (08:50)
[2020-05-31] MEDS: MAGNESIUM OXIDE 400MG TAB (MAG-OX) PO SCH (08:50)
[2020-05-31] MEDS: CETIRIZINE (ZyrTEC) 10 MG TAB PO SCH (08:51)
[2020-05-31] MEDS: busPIRone 5 MG TAB PO SCH ×2 (08:51→20:22)
[2020-05-31] MEDS: CYANOCOBALAMIN 500 MCG TAB PO SCH (08:51)
[2020-05-31] MEDS: ADVAIR HFA 230/21MCG INHALER INH SCH ×2 (08:52→20:22)
[2020-05-31] MEDS: MONTELUKAST 10 MG TAB PO SCH (08:58)
--- NOTE | 2020-05-31 09:23 | MHHPE ---
[facility] HISTORY AND PHYSICAL DATE OF ADMISSION: 05/29/2020 VITAL SIGNS: Blood pressure 141/76, pulse 74, temperature 98.6. CHIEF COMPLAINT: Feels depressed. SUBJECTIVE: He is 55 years old, he was admitted here to psychiatry on 05/14/2020 through 05/26/2020, and diagnosed with unspecified bipolar disorder, alcohol use disorder, and there was a question of ruling out dementia, with Korsakoff syndrome. Please refer to the discharge summary for details related to the course of hospitalization. Was discharged on buspirone, Celexa, gabapentin, along with psychotropics. Please see the full list for the other medications. He came to the emergency room, 05/27/2020, as had concerns left leg was swollen, had been diagnosed with cellulitis. While on the medical floor, was seen by Dr. Deleon, on consult. The consult note is apparently not yet available. She had decided that he needed readmission to inpatient psychiatry, and he was transferred. 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 Says was concerned about involving other people as well, but denied that he had thoughts of harming anyone else. PAST PSYCHIATRIC HISTORY: Please refer to the previous chart summary. MEDICAL HISTORY: Please refer to the recent medical assessment made on the medical floor. MENTAL STATUS EXAMINATION: He is neat, cooperative, but a bit guarded, appears a bit anxious, coherent, no overt agitation, answers questions briefly, logically, alludes to thoughts of suicide but no plans. No fluctuation of consciousness, does not at present appear internally preoccupied. Cognition grossly intact. Judgment and insight questionable. ASSESSMENT: Bipolar disorder by history, current episode possibly manic possibly mixed. PLAN: He is admitted to the inpatient psychiatry unit and placed on relevant precautions. We will look at obtaining collateral information. He is resumed on previous medications which include buspirone, citalopram, and gabapentin. May need to consider adding a mood stabilizer. Further recommendations will be made depending on the clinical picture. Anticipate a 5-7 day stay.
[2020-05-31 16:16] VITALS: BP 117/66
[2020-05-31] MEDS: traZODone 50 MG TAB PO PRN (20:22)
[2020-06-01 06:00] VITALS: BP 126/65
[2020-06-01] MEDS: ADVAIR HFA 230/21MCG INHALER INH SCH ×2 (08:24→20:41)
[2020-06-01] MEDS: guaiFENesin 200 MG TAB PO SCH ×2 (08:26→20:40)
[2020-06-01] MEDS: oxyBUTYnin 5 MG TAB PO SCH (08:26)
[2020-06-01] MEDS: ATORVASTATIN 10 MG TAB PO SCH (08:27)
[2020-06-01] MEDS: DOXYCYCLINE HYCLATE 100MG TABLET PO SCH ×2 (08:27→20:41)
[2020-06-01] MEDS: MONTELUKAST 10 MG TAB PO SCH (08:27)
[2020-06-01] MEDS: CETIRIZINE (ZyrTEC) 10 MG TAB PO SCH (08:27)
[2020-06-01] MEDS: CYANOCOBALAMIN 500 MCG TAB PO SCH (08:27)
[2020-06-01] MEDS: CitaloPRAM (CeleXA) 20 MG TAB PO SCH (08:28)
[2020-06-01] MEDS: busPIRone 5 MG TAB PO SCH ×2 (08:30→20:40)
[2020-06-01] MEDS: THIAMINE 100 MG TAB PO SCH (08:30)
[2020-06-01] MEDS: MULTIVITAMINS/MINERALS THERAP 1 TAB PO SCH (08:30)
[2020-06-01] MEDS: amLODIPine 5 MG TAB PO SCH (08:30)
[2020-06-01] MEDS: ASPIRIN 81MG ENTERIC TABLET PO SCH (08:30)
[2020-06-01] MEDS: FOLIC ACID 1 MG TAB PO SCH (08:30)
[2020-06-01] MEDS: MAGNESIUM OXIDE 400MG TAB (MAG-OX) PO SCH (08:30)
[2020-06-01] MEDS: PANTOPRAZOLE 40MG TAB (PROTONIX) PO SCH (08:30)
[2020-06-01] MEDS: GABAPENTIN 100 MG CAP PO SCH ×2 (08:30→20:41)
--- NOTE | 2020-06-01 14:34 | MHIPNPDOC ---
[facility] Progress Note Progress Note DATE OF SERVICE: 06/01/20 HISTORY: Patient is a 55-year-old single, unemployed, silent, male who recently had a psychiatric admission to this facility from 05/14/2020 to 05/26, diagnosis of unspecified bipolar disorder and rule out dementia secondary to Korsakoff's syndrome at that time patient has positive suicidal ideation to jump from a bridge or shoot himself. On this occasion patient was admitted to medical for cellulitis. While he was on the medical floor he made vague suicidal statements. VITAL SIGNS: See below. CURRENT MEDICATIONS: See below. MENTAL STATUS EXAMINATION: Patient is a 55-year-old single, unemployed, silent, male who recently had a psychiatric admission to this facility from 05/14/2020 to 05/26/2020, diagnosis of unspecified bipolar. He was initially admitted to medical for cellulitis. While he was on the medical floor he made vague suicidal statements. Speech: Is hyperverbal, tangential, mildly rapid. overly conversant Language skills are intact Thought processes including: Mostly linear, sometimes disorganized Thought content: Reporting depression, anxiety and fleeting suicidal ideation Abstract reasoning, and computation: , Fair. Description of associations: Denies auditory or visual hallucinations . Description of abnormal or psychotic thoughts: Patient observed to be mildly hypomanic Judgment: Fair to impaired Insight: Fair to impaired Orientation: Alert and oriented to person, place, time and situation Recent and remote memory: Patient has difficulty with short-term memory Attention span and concentration: Fair Language: Expansive Fund of knowledge: Average Mood: Depressed Affect: Constricted DIAGNOSES: Unspecified bipolar disorder Alcohol use disorder Rule out Korsakoff's dementia Nicotine use disorder Asthma COPD Hernia Cellulitis ASSESSMENT: Patient is alert and oriented to person, place, time and situation. He reports feeling depressed and suicidal. States that he "wasn't in a good place." Patient states that much of his stressors are his health and housing, stating that he is unsure that he has any housing from this point on. He has fear of the unknown in that his biggest stressor is his health. Much of the patient's last hospitalization centered on his wanting to have the answers about his housing clarified upon discharge, it appears that patient's continues to have that rumination that he needs his housing verified. 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 Patient is observed with numerous papers writing all over a folder with many notes much of his conversations is filled with confabulations as well as a moderate amount of grandiosity. He does however look very depressed as well as reporting that he has a significant ideation of wanting to jump from a bridge MANAGEMENT PLAN: Continue all medications, we'll consider Lamictal 25 mg TIME SPENT: 25 minutes. Vital Signs Vital Signs Date Time Temp Pulse Resp B/P (MAP) Pulse Ox O2 Delivery O2 Flow Rate FiO2 06/01/20 08:30 66 126/65 06/01/20 06:00 98.9 20 95 05/31/20 16:16 Room Air Current Medications Current Medications Medications (Trade) Dose Ordered Sig/Rey Route PRN Reason Start Time Stop Time Status Last Admin Dose Admin Acetaminophen (Tylenol Tab) 650 mg Q6HP PRN PO HEADACHE or DISCOMFORT 05/30/20 04:30 Al Hydrox/Mg Hydrox/Simethicone (Mylanta) 30 ml Q4HP PRN PO HEARTBURN/INDIGESTION 05/30/20 04:30 Albuterol Sulfate (Proventil, Ventolin Hfa) 2 puff QID PRN INH SHORTNESS OF BREATH 05/30/20 09:00 Albuterol/ Ipratropium (Duoneb (Ipr 0.5mg/Alb 2.5mg)) 3 ml QID PRN NEB SOB/WHEEZING 05/30/20 09:00 Amlodipine Besylate (Norvasc) 5 mg DAILY PO 05/30/20 09:00 06/01/20 08:30 Artificial Tears (Akwa Tears) 2 drop QIDP PRN OU DRY EYES 05/30/20 09:00 Artificial Tears (Akwa Tears) 2 drop TIDP PRN OU DRY EYES 05/30/20 14:15 UNV Aspirin (Ecotrin) 81 mg DAILY PO 05/30/20 09:00 06/01/20 08:30 Atorvastatin Calcium (Lipitor) 10 mg DAILY PO 05/30/20 09:00 06/01/20 08:27 Buspirone HCl (Buspar) 15 mg BID PO 05/30/20 09:00 06/01/20 08:30 Cetirizine HCl (ZyrTEC) 10 mg DAILY PO 05/30/20 09:00 06/01/20 08:27 Citalopram Hydrobromide (CeleXA) 40 mg DAILY PO 05/30/20 09:00 06/01/20 08:28 Cyanocobalamin (Vitamin B12) 1,000 mcg DAILY PO 05/30/20 09:00 06/01/20 08:27 Doxycycline Hyclate (Vibramycin) 100 mg BID PO 05/30/20 09:00 06/04/20 09:00 06/01/20 08:27 Folic Acid (Folic Acid) 1 mg DAILY PO 05/30/20 09:00 06/01/20 08:30 Gabapentin (Neurontin) 100 mg BID PO 05/30/20 09:00 06/01/20 08:30 Guaifenesin (Robitussin Tab) 600 mg BID PO 05/30/20 09:00 06/01/20 08:26 Hydroxyzine HCl (Atarax) 25 mg BID PRN PO ITCHING 05/30/20 04:30 Magnesium Hydroxide (Milk Of Magnesia) 30 ml DAILYPRN PRN PO CONSTIPATION 05/30/20 04:30 Magnesium Oxide (Mag-Ox) 400 mg DAILY PO 05/30/20 09:00 06/01/20 08:30 Montelukast Sodium (Singulair) 10 mg DAILY PO 05/30/20 09:00 06/01/20 08:27 Multivitamins (Theragram-M) 1 tab DAILY PO 05/30/20 09:00 06/01/20 08:30 Olopatadine HCl (Patanol) 1 drop BID@09,17 PRN OU ITCHING 05/30/20 09:00 Oxybutynin Chloride (Ditropan) 5 mg DAILY PO 05/30/20 09:00 06/01/20 08:26 Pantoprazole Sodium (Protonix) 40 mg DAILY PO 05/30/20 09:00 06/01/20 08:30 Salmeterol Xinafoate/ Fluticasone (Advair Hfa ) 2 puff RBID INH 05/30/20 08:00 06/01/20 08:24 Thiamine HCl (Thiamine HCl) 100 mg DAILY PO 05/30/20 09:00 06/01/20 08:30 Trazodone HCl (Desyrel) 50 mg QHSP PRN PO INSOMNIA 05/30/20 09:00 05/31/20 20:22 Allergies Coded Allergies: ROMULO Inhibitors (Verified Allergy, Severe, ANGIOEDEMA, 11/26/19) azithromycin (Verified Allergy, Severe, ANAPHYLAXIS, 11/26/19) oseltamivir (Verified Allergy, Severe, ANAPHYLAXIS, 11/26/19) latex (Verified Allergy, Intermediate, HIVES, EDEMA, 01/29/20) SEASONAL ALLERGIES (Verified Allergy, Unknown, 11/26/19) JANINE LOERA PREPARATORY TECHNICIAN Jun 01, 2020 14:34
[2020-06-01 18:47] VITALS: BP 139/72
[2020-06-01] MEDS: traZODone 50 MG TAB PO PRN (20:41)
[2020-06-02 07:10] VITALS: BP 145/82
[2020-06-02] MEDS: ADVAIR HFA 230/21MCG INHALER INH SCH ×2 (08:41→20:10)
[2020-06-02] MEDS: oxyBUTYnin 5 MG TAB PO SCH (08:42)
[2020-06-02] MEDS: guaiFENesin 200 MG TAB PO SCH ×2 (08:42→20:10)
[2020-06-02] MEDS: CYANOCOBALAMIN 500 MCG TAB PO SCH (08:42)
[2020-06-02] MEDS: ATORVASTATIN 10 MG TAB PO SCH (08:42)
[2020-06-02] MEDS: CETIRIZINE (ZyrTEC) 10 MG TAB PO SCH (08:43)
[2020-06-02] MEDS: MONTELUKAST 10 MG TAB PO SCH (08:43)
[2020-06-02] MEDS: DOXYCYCLINE HYCLATE 100MG TABLET PO SCH ×2 (08:43→20:10)
[2020-06-02] MEDS: GABAPENTIN 100 MG CAP PO SCH ×2 (08:45→20:10)
[2020-06-02] MEDS: CitaloPRAM (CeleXA) 20 MG TAB PO SCH (08:45)
[2020-06-02] MEDS: lamoTRIgine 25MG TAB PO SCH (08:45)
[2020-06-02] MEDS: ASPIRIN 81MG ENTERIC TABLET PO SCH (08:45)
[2020-06-02] MEDS: THIAMINE 100 MG TAB PO SCH (08:45)
[2020-06-02] MEDS: busPIRone 5 MG TAB PO SCH ×2 (08:46→20:10)
[2020-06-02] MEDS: PANTOPRAZOLE 40MG TAB (PROTONIX) PO SCH (08:46)
[2020-06-02] MEDS: MAGNESIUM OXIDE 400MG TAB (MAG-OX) PO SCH (08:46)
[2020-06-02] MEDS: MULTIVITAMINS/MINERALS THERAP 1 TAB PO SCH (08:46)
[2020-06-02] MEDS: amLODIPine 5 MG TAB PO SCH (08:46)
[2020-06-02] MEDS: FOLIC ACID 1 MG TAB PO SCH (08:46)
--- NOTE | 2020-06-02 09:02 | MHIPN ---
[facility] PROGRESS NOTE DATE: 05/31/2020 Vital signs: Blood pressure 117/66, pulse 70, temperature 98.9. This is a video assessment, he is seen in the presence of staff. CHIEF COMPLAINT: He says he is okay. SUBJECTIVE: Seen for followup. Indicates is okay, but as okay as he was yesterday, rather vague on this, he is not sure if he would harm himself, should a situation arise. Says slept reasonably well, and pain in the leg is improved. MENTAL STATUS EXAMINATION: He is neat, cooperative but still a bit guarded, not as anxious, he is coherent with a restricted affect. No overt agitation. Denies any firm plans of harming himself, no homicidal ideas or intents. Cognition grossly intact in that he is alert and oriented. Judgment and insight remain questionable. ASSESSMENT: Bipolar disorder by history, current episode possibly manic, possibly mixed. PLAN: Continue current care, observations, and look at obtaining collateral information. Encourage participation in the activities on the unit as tolerated. Further recommendations to be made when he sees the clinicians tomorrow.
--- NOTE | 2020-06-02 15:51 | MHIPNPDOC ---
[facility] Progress Note Progress Note DATE OF SERVICE: 06/02/20 HISTORY: Patient is a 55-year-old single, unemployed, silent, male who recently had a psychiatric admission to this facility from 05/14/2020 to 04/29, diagnosis of unspecified bipolar disorder and rule out dementia secondary to Korsakoff's syndrome at that time patient has positive suicidal ideation to jump from a bridge or shoot himself. On this occasion patient was admitted to medical for cellulitis. While he was on the medical floor he made vague suicidal statements. VITAL SIGNS: See below. CURRENT MEDICATIONS: See below. MENTAL STATUS EXAMINATION: Patient is a 55-year-old single, unemployed, silent, male who recently had a psychiatric admission to this facility from 05/14/2020 to 05/26/2020, diagnosis of unspecified bipolar. He was initially admitted to medical for cellulitis. While he was on the medical floor he made vague suicidal statements. Speech: Is hyperverbal, tangential, mildly rapid. overly conversant Language skills are intact Thought processes including: Mostly linear, ruminations, is observed with scattered writing in his folder, numerous papers with writing on it. Thought content: Reporting depression, anxiety and fleeting suicidal ideation, racing thoughts Abstract reasoning, and computation: Fair. Description of associations: Denies auditory or visual hallucinations . Description of abnormal or psychotic thoughts: Patient very ruminative about his family business Judgment: Fair to impaired Insight: Fair to impaired Orientation: Alert and oriented to person, place, time and situation Recent and remote memory: Patient has difficulty with short-term memory Attention span and concentration: Fair Language: Expansive Fund of knowledge: Average Mood: Euthymic Affect: Constricted DIAGNOSES: Unspecified bipolar disorder Alcohol use disorder Rule out Korsakoff's dementia Nicotine use disorder Asthma COPD Hernia Cellulitis ASSESSMENT: Patient is alert and oriented to person, place, time and situation. He states that he is "good" reporting less agitation, less anxiety. States that he wants to speak to the Hospitalist about his abdominal pain and Hernia. I reminded the patient that he was seen for this on his last admission and that he had diagnostic imaging for this. He reports that he is now hearing about the results of this and that he feels that he wants a further investigation of abdominal pain. He denies that he fell. Patient has a long history of ETOH and COPD, but doubts that he may have fallen. He reports that he has depression, fleeting suicidal ideations and states "Do I want to hurt myself right now? NO! But I don't know how I will be tomorrow." Reminded the patient that ultimately he has the choice to not hurt himself. 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 Throughout the interview patient reports that he cannot leave the hospital until he is "mentally and physically better." When asked what the steps or processes are needed for meeting this goal patient reverts back to the list of things he needs to do (find out if the contents/material goods of the business were sold, who is paying the taxes, when will he be told what officially has been sold) Patient is unable or will not address his goals for this hospitalization other than to "be mentally stable" Patient is agreeable to mood stabilizer, he was given education on Bipolar Symptomology and he agrees that he exhibits some of the symptoms. MANAGEMENT PLAN: Continue all medications, started Lamictal 25 mg yesterday TIME SPENT: 25 minutes. Vital Signs Vital Signs Date Time Temp Pulse Resp B/P (MAP) Pulse Ox O2 Delivery O2 Flow Rate FiO2 06/02/20 08:46 70 145/82 06/02/20 07:10 98.3 18 96 Room Air Current Medications Current Medications Medications (Trade) Dose Ordered Sig/Rey Route PRN Reason Start Time Stop Time Status Last Admin Dose Admin Acetaminophen (Tylenol Tab) 650 mg Q6HP PRN PO HEADACHE or DISCOMFORT 05/30/20 04:30 Al Hydrox/Mg Hydrox/Simethicone (Mylanta) 30 ml Q4HP PRN PO HEARTBURN/INDIGESTION 05/30/20 04:30 Albuterol Sulfate (Proventil, Ventolin Hfa) 2 puff QID PRN INH SHORTNESS OF BREATH 05/30/20 09:00 Albuterol/ Ipratropium (Duoneb (Ipr 0.5mg/Alb 2.5mg)) 3 ml QID PRN NEB SOB/WHEEZING 05/30/20 09:00 Amlodipine Besylate (Norvasc) 5 mg DAILY PO 05/30/20 09:00 06/02/20 08:46 Artificial Tears (Akwa Tears) 2 drop QIDP PRN OU DRY EYES 05/30/20 09:00 06/01/20 20:41 Artificial Tears (Akwa Tears) 2 drop TIDP PRN OU DRY EYES 05/30/20 14:15 UNV Aspirin (Ecotrin) 81 mg DAILY PO 05/30/20 09:00 06/02/20 08:45 Atorvastatin Calcium (Lipitor) 10 mg DAILY PO 05/30/20 09:00 06/02/20 08:42 Buspirone HCl (Buspar) 15 mg BID PO 05/30/20 09:00 06/02/20 08:46 Cetirizine HCl (ZyrTEC) 10 mg DAILY PO 05/30/20 09:00 06/02/20 08:43 Citalopram Hydrobromide (CeleXA) 40 mg DAILY PO 05/30/20 09:00 06/02/20 08:45 Cyanocobalamin (Vitamin B12) 1,000 mcg DAILY PO 05/30/20 09:00 06/02/20 08:42 Doxycycline Hyclate (Vibramycin) 100 mg BID PO 05/30/20 09:00 06/04/20 09:00 06/02/20 08:43 Folic Acid (Folic Acid) 1 mg DAILY PO 05/30/20 09:00 06/02/20 08:46 Gabapentin (Neurontin) 100 mg BID PO 05/30/20 09:00 06/02/20 08:45 Guaifenesin (Robitussin Tab) 600 mg BID PO 05/30/20 09:00 06/02/20 08:42 Hydroxyzine HCl (Atarax) 25 mg BID PRN PO ITCHING 05/30/20 04:30 Lamotrigine (LaMICtal) 25 mg QAM PO 06/02/20 09:00 06/02/20 08:45 Magnesium Hydroxide (Milk Of Magnesia) 30 ml DAILYPRN PRN PO CONSTIPATION 05/30/20 04:30 Magnesium Oxide (Mag-Ox) 400 mg DAILY PO 05/30/20 09:00 06/02/20 08:46 Montelukast Sodium (Singulair) 10 mg DAILY PO 05/30/20 09:00 06/02/20 08:43 Multivitamins (Theragram-M) 1 tab DAILY PO 05/30/20 09:00 06/02/20 08:46 Olopatadine HCl (Patanol) 1 drop BID@09,17 PRN OU ITCHING 05/30/20 09:00 Oxybutynin Chloride (Ditropan) 5 mg DAILY PO 05/30/20 09:00 06/02/20 08:42 Pantoprazole Sodium (Protonix) 40 mg DAILY PO 05/30/20 09:00 06/02/20 08:46 Salmeterol Xinafoate/ Fluticasone (Advair Hfa ) 2 puff RBID INH 05/30/20 08:00 06/02/20 08:41 Thiamine HCl (Thiamine HCl) 100 mg DAILY PO 05/30/20 09:00 06/02/20 08:45 Trazodone HCl (Desyrel) 50 mg QHSP PRN PO INSOMNIA 05/30/20 09:00 06/01/20 20:41 Allergies Coded Allergies: ROMULO Inhibitors (Verified Allergy, Severe, ANGIOEDEMA, 11/26/19) azithromycin (Verified Allergy, Severe, ANAPHYLAXIS, 11/26/19) oseltamivir (Verified Allergy, Severe, ANAPHYLAXIS, 11/26/19) latex (Verified Allergy, Intermediate, HIVES, EDEMA, 01/29/20) SEASONAL ALLERGIES (Verified Allergy, Unknown, 11/26/19) JANINE LOERA NP Jun 02, 2020 11:45
[2020-06-02 17:50] VITALS: BP 146/73
[2020-06-02] MEDS: traZODone 50 MG TAB PO PRN (20:11)
[2020-06-03 06:00] VITALS: BP 125/78
[2020-06-03] MEDS: MONTELUKAST 10 MG TAB PO SCH (08:26)
[2020-06-03] MEDS: ADVAIR HFA 230/21MCG INHALER INH SCH ×2 (08:26→20:17)
[2020-06-03] MEDS: guaiFENesin 200 MG TAB PO SCH ×2 (08:26→20:18)
[2020-06-03] MEDS: CYANOCOBALAMIN 500 MCG TAB PO SCH (08:26)
[2020-06-03] MEDS: ASPIRIN 81MG ENTERIC TABLET PO SCH (08:27)
[2020-06-03] MEDS: FOLIC ACID 1 MG TAB PO SCH (08:27)
[2020-06-03] MEDS: busPIRone 5 MG TAB PO SCH ×2 (08:27→20:18)
[2020-06-03] MEDS: MULTIVITAMINS/MINERALS THERAP 1 TAB PO SCH (08:27)
[2020-06-03] MEDS: MAGNESIUM OXIDE 400MG TAB (MAG-OX) PO SCH (08:27)
[2020-06-03] MEDS: PANTOPRAZOLE 40MG TAB (PROTONIX) PO SCH (08:27)
[2020-06-03] MEDS: CitaloPRAM (CeleXA) 20 MG TAB PO SCH (08:27)
[2020-06-03] MEDS: oxyBUTYnin 5 MG TAB PO SCH (08:27)
[2020-06-03] MEDS: amLODIPine 5 MG TAB PO SCH (08:28)
[2020-06-03] MEDS: GABAPENTIN 100 MG CAP PO SCH ×2 (08:28→20:18)
[2020-06-03] MEDS: CETIRIZINE (ZyrTEC) 10 MG TAB PO SCH (08:28)
[2020-06-03] MEDS: lamoTRIgine 25MG TAB PO SCH (08:28)
[2020-06-03] MEDS: ATORVASTATIN 10 MG TAB PO SCH (08:28)
[2020-06-03] MEDS: DOXYCYCLINE HYCLATE 100MG TABLET PO SCH ×2 (08:28→20:18)
[2020-06-03] MEDS: THIAMINE 100 MG TAB PO SCH (08:28)
--- NOTE | 2020-06-03 15:11 | MHIPNPDOC ---
[facility] Progress Note Progress Note DATE OF SERVICE: 06/03/20 HISTORY: Patient is a 55-year-old single, unemployed, silent, male who recently had a psychiatric admission to this facility from 05/14/2020 to 05/26, diagnosis of unspecified bipolar disorder, patient was admitted to medical for cellulitis. While he was on the medical floor he made vague suicidal statements. VITAL SIGNS: See below. CURRENT MEDICATIONS: See below. MENTAL STATUS EXAMINATION: Patient is a 55-year-old single, unemployed, silent, male who had been recently discharged on 05/26/2020, and returned on the same day with complaints of swelling in his leg. He was admitted to medical where he made vague suicidal statements. Speech: Is less hyperverbal, less tangential, less rapid speech. Language skills are intact Thought processes including: Mostly linear, disorganized writing on his folders Thought content: Reporting depression, anxiety and fleeting suicidal ideation, racing thoughts Abstract reasoning, and computation: Fair. Description of associations: Denies auditory or visual hallucinations . 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, but more somatic and ruminative about cellulitis Judgment: Fair to impaired Insight: Fair to impaired Orientation: Alert and oriented to person, place, time and situation Recent and remote memory: Patient has difficulty with short-term memory Attention span and concentration: Fair Language: Expansive Fund of knowledge: Average Mood: Euthymic Affect: Constricted DIAGNOSES: Unspecified bipolar disorder Alcohol use disorder Nicotine use disorder Asthma COPD Hernia Cellulitis ASSESSMENT: Patient is dressed appropriate, maintains good eye contact, has normal speech, is seen in the milieu, social with peers and staff, writing excessive notes on folder and paper about medications, somatic complaints, attends the group therapy sessions, reports being euthymic and having less de pression. States "Doing well, slept well, it's been uneventful." Reports his swelling in left leg is decreased. Redness from the calves are reduced, reports he will be on antibiotics for 9-10 days. Further states that he has the "issues I had yesterday are the same, foot, numbness, CT, abdominal pain, housing, side effects, blurred vision. Having trouble staying focused, reports anger and agitation. When asked about how to meet his needs in order to be prepared for his discharge. He states that he has 4/5 pages of action that addresses housing ([place]) speaking with Lawson Davis, Atty He is grandiose stating, "I was very agitated with another peer and I was recognized for keeping it together. That was like a Kudos for my being able to keep it in control. I am just that kind of a person, I was just helping one of the other patients because he doesn't know why he is here and instead of ignoring him and directing him to the nurses station when no one is there, I was helping him to stay calm. I am just consciousness of what someone needs, I am just that kind of person." Continues to ruminate his property and housing. Has repeatedly said that he has an finance attorney that had dropped off the application for [facility] assistance for housing and that his finance attorney took it to [facility]. On his last hospitalization, we were informed that his housing was intact until June. Patient states that he has been on Citalopram for many years, was started on Lamictal 25 mg on this occurrence. MANAGEMENT PLAN: Continue all medications, discharge when stable TIME SPENT: 25 minutes. Vital Signs Vital Signs Vital Signs Date Time Temp Pulse Resp B/P (MAP) Pulse Ox O2 Delivery O2 Flow Rate FiO2 06/03/20 08:28 75 120/78 06/03/20 06:00 98.0 18 99 06/02/20 07:10 Room Air Current Medications Current Medications Medications (Trade) Dose Ordered Sig/Rey Route PRN Reason Start Time Stop Time Status Last Admin Dose Admin Acetaminophen (Tylenol Tab) 650 mg Q6HP PRN PO HEADACHE or DISCOMFORT 05/30/20 04:30 Al Hydrox/Mg Hydrox/Simethicone (Mylanta) 30 ml Q4HP PRN PO HEARTBURN/INDIGESTION 05/30/20 04:30 Albuterol Sulfate (Proventil, Ventolin Hfa) 2 puff QID PRN INH SHORTNESS OF BREATH 05/30/20 09:00 Albuterol/ Ipratropium (Duoneb (Ipr 0.5mg/Alb 2.5mg)) 3 ml QID PRN NEB SOB/WHEEZING 05/30/20 09:00 Amlodipine Besylate (Norvasc) 5 mg DAILY PO 05/30/20 09:00 06/03/20 08:28 Artificial Tears (Akwa Tears) 2 drop QIDP PRN OU DRY EYES 05/30/20 09:00 06/01/20 20:41 Artificial Tears (Akwa Tears) 2 drop TIDP PRN OU DRY EYES 05/30/20 14:15 UNV Aspirin (Ecotrin) 81 mg DAILY PO 05/30/20 09:00 06/03/20 08:27 Atorvastatin Calcium (Lipitor) 10 mg DAILY PO 05/30/20 09:00 06/03/20 08:28 Buspirone HCl (Buspar) 15 mg BID PO 05/30/20 09:00 06/03/20 08:27 Cetirizine HCl (ZyrTEC) 10 mg DAILY PO 05/30/20 09:00 06/03/20 08:28 Citalopram Hydrobromide (CeleXA) 40 mg DAILY PO 05/30/20 09:00 06/03/20 08:27 Cyanocobalamin (Vitamin B12) 1,000 mcg DAILY PO 05/30/20 09:00 06/03/20 08:26 Doxycycline Hyclate (Vibramycin) 100 mg BID PO 05/30/20 09:00 06/04/20 09:00 06/03/20 08:28 Folic Acid (Folic Acid) 1 mg DAILY PO 05/30/20 09:00 06/03/20 08:27 Gabapentin (Neurontin) 100 mg BID PO 05/30/20 09:00 06/03/20 08:28 Guaifenesin (Robitussin Tab) 600 mg BID PO 05/30/20 09:00 06/03/20 08:26 Hydroxyzine HCl (Atarax) 25 mg BID PRN PO ITCHING 05/30/20 04:30 Lamotrigine (LaMICtal) 25 mg QAM PO 06/02/20 09:00 06/03/20 08:28 Magnesium Hydroxide (Milk Of Magnesia) 30 ml DAILYPRN PRN PO CONSTIPATION 05/30/20 04:30 Magnesium Oxide (Mag-Ox) 400 mg DAILY PO 05/30/20 09:00 06/03/20 08:27 Montelukast Sodium (Singulair) 10 mg DAILY PO 05/30/20 09:00 06/03/20 08:26 Multivitamins (Theragram-M) 1 tab DAILY PO 05/30/20 09:00 06/03/20 08:27 Olopatadine HCl (Patanol) 1 drop BID@,17 PRN OU ITCHING 05/30/20 09:00 Oxybutynin Chloride (Ditropan) 5 mg DAILY PO 05/30/20 09:00 06/03/20 08:27 Pantoprazole Sodium (Protonix) 40 mg DAILY PO 05/30/20 09:00 06/03/20 08:27 Salmeterol Xinafoate/ Fluticasone (Advair Hfa / ) 2 puff RBID INH 05/30/20 08:00 06/03/20 08:26 Thiamine HCl (Thiamine HCl) 100 mg DAILY PO 05/30/20 09:00 06/03/20 08:28 Trazodone HCl (Desyrel) 50 mg QHSP PRN PO INSOMNIA 05/30/20 09:00 06/02/20 20:11 Allergies Coded Allergies: ROMULO Inhibitors (Verified Allergy, Severe, ANGIOEDEMA, 11/26/19) azithromycin (Verified Allergy, Severe, ANAPHYLAXIS, 11/26/19) oseltamivir (Verified Allergy, Severe, ANAPHYLAXIS, 11/26/19) latex (Verified Allergy, Intermediate, HIVES, EDEMA, 01/29/20) SEASONAL ALLERGIES (Verified Allergy, Unknown, 11/26/19) JANINE LOERA NP Jun 03, 2020 12:18
--- NOTE | 2020-06-03 16:57 | IPNPDOC ---
Text Note Date of Service The patient was seen on 06/03/20. NOTE Subjective: Patient is a 55-year-old male who was recently admitted to the medicine floor for left foot cellulitis and subsequently discharged to the inpatient mental health unit for severe depression on 05/29. Patient was discharged with doxycycline for completion of antibiotic course. Was called by nursing staff to evaluate patient's left foot for cellulitis and abdominal pain. Patient was seen and examined at the exam room. Patient reported that his left foot is relatively doing better. Some redness remains. However, overall he states that it has improved significantly from the demarcation lines. He does report swelling of his left foot. Patient denies any recent fevers, chills, nausea, vomiting or diarrhea. Patient does report some upper abdominal discomfort that he attributes to a hernia. Objective: Vitals (See below) General: Sitting in exam chair, no acute distress, comfortable, AAOx3 HEENT: NC, AT CVS: +S1S2 Lungs: Fair air entry b/l, Abdomen: Soft, ND, no significant tenderness on palpation Extremities: LLE with edema, RLE with trace edema, - Calf tenderness Assessment and plan: L foot cellulitis - Physical reveals improvement of erythema, no warmth or drainage noted; does appear to be edema - Vascular US on 05/27: was negative for DVT - XR 05/27: 1. Slight soft tissue swelling dorsally. 2. Otherwise negative left foot. No fracture. - Will check CBC, CRP, BNP - Will get Duplex US of LLE - c/w Doxycycline; will extend duration for 5 more days - Will add eminent topical Questionable hernia - Denies any nausea, vomiting or constipation - Physical does not reveal any abdominal tenderness - Advised patient to seek follow-up with outpatient surgical service for further evaluation - Patient has been instructed to remain hydrated and avoid constipation HTN - BP well controlled - c/w Amlodipine CAD - c/w ASA and Atorvastatin HFpEF - Clinically does not appear decompensated states - Not on diuretics COPD - Currently not having any signs of exacerbation - c/w inhaled therapy as ordered MDD - Admitted to the inpatient mental health unit - Managed by psychiatry GERD - c/w Protonix Overactive bladder - c/w oxybutynin Folate / Vitamin B12 deficiency c/w home med DVT prophylaxis - c/w early ambulation VS,Fishbone, I+O VS, Fishbone, I+O Vital Signs Date Time Temp Pulse Resp B/P (MAP) Pulse Ox O2 Delivery O2 Flow Rate FiO2 06/03/20 08:28 75 120/78 06/03/20 06:00 98.0 18 99 06/02/20 07:10 Room Air ALAN GUERRIER MD Jun 03, 2020 16:57
--- NOTE | 2020-06-03 17:38 | REP ---
INDICATION: LLE swelling COMPARISON: None. TECHNIQUE: Real time compression and duplex Doppler interrogation of the left lower extremity deep venous system is performed. FINDINGS: The left common femoral, superficial femoral and popliteal veins are fully compressible with transducer pressure and demonstrate normal spontaneous and phasic flow, without evidence of deep venous thrombosis. IMPRESSION: No evidence of deep venous thrombosis of the left lower extremity femoral popliteal venous system. <Electronically signed by Stalin Anderson > 06/03/20 [id number]
[2020-06-03 17:50] VITALS: BP 112/66
[2020-06-03 18:55] LABS: BASO % 0.5 % (0.0-1.0); EOS # 0.1 10^3/uL (0.0-0.5); EOS % 0.8 % (0.0-3.0); HEMATOCRIT 34.4 % (42.0-52.0); HEMOGLOBIN 11.4 g/dl (13.5-17.5); LYMPH # 2.9 10^3/uL (1.5-5.0); LYMPH % 34.2 % (24.0-44.0); MEAN CORPUSCULAR HEMOGLOBIN 30.4 pg (27.0-33.0); MEAN CORPUSCULAR HGB CONC 33.1 g/dl (32.0-36.5); MEAN CORPUSCULAR VOLUME 91.7 fl (80.0-96.0); MONO # 0.7 10^3/uL (0.0-0.8); MONO % 8.4 % (2.0-8.0); NEUTROPHILS # 4.8 10^3/uL (1.5-8.5); NEUTROPHILS % 55.6 % (36.0-66.0); PLATELET COUNT, AUTOMATED 288 10^3/uL (150-450); RED BLOOD COUNT 3.75 10^6/uL (4.30-6.10); WHITE BLOOD COUNT 8.6 10^3/uL (4.0-10.0)
[2020-06-03 19:13] LABS: BLOOD UREA NITROGEN 16 MG/DL (7-18); CALCIUM LEVEL 8.9 MG/DL (8.5-10.1); CARBON DIOXIDE LEVEL 29 MEQ/L (21-32); CHLORIDE LEVEL 105 MEQ/L (98-107); CREATININE FOR GFR 0.84 MG/DL (0.70-1.30); GLOMERULAR FILTRATION RATE > 60.0 (>56); GLUCOSE, FASTING 126 MG/DL (70-100); MAGNESIUM LEVEL 1.9 MG/DL (1.8-2.4); POTASSIUM SERUM 4.3 MEQ/L (3.5-5.1); SODIUM LEVEL 138 MEQ/L (136-145)
[2020-06-03] MEDS: VANICREAM MOISTURIZING SKIN CREAM 113GM TUBE TOP SCH (20:17)
[2020-06-03] MEDS: traZODone 50 MG TAB PO PRN (20:19)
[2020-06-04 06:29] VITALS: BP 123/63
[2020-06-04] MEDS: ADVAIR HFA 230/21MCG INHALER INH SCH ×2 (08:32→20:56)
[2020-06-04] MEDS: CitaloPRAM (CeleXA) 20 MG TAB PO SCH (08:33)
[2020-06-04] MEDS: busPIRone 5 MG TAB PO SCH ×2 (08:33→20:57)
[2020-06-04] MEDS: GABAPENTIN 100 MG CAP PO SCH ×2 (08:33→20:57)
[2020-06-04] MEDS: THIAMINE 100 MG TAB PO SCH (08:33)
[2020-06-04] MEDS: lamoTRIgine 25MG TAB PO SCH (08:33)
[2020-06-04] MEDS: amLODIPine 5 MG TAB PO SCH (08:33)
[2020-06-04] MEDS: MAGNESIUM OXIDE 400MG TAB (MAG-OX) PO SCH (08:34)
[2020-06-04] MEDS: FOLIC ACID 1 MG TAB PO SCH (08:34)
[2020-06-04] MEDS: ASPIRIN 81MG ENTERIC TABLET PO SCH (08:34)
[2020-06-04] MEDS: MULTIVITAMINS/MINERALS THERAP 1 TAB PO SCH (08:34)
[2020-06-04] MEDS: PANTOPRAZOLE 40MG TAB (PROTONIX) PO SCH (08:34)
[2020-06-04] MEDS: CYANOCOBALAMIN 500 MCG TAB PO SCH (08:34)
[2020-06-04] MEDS: ATORVASTATIN 10 MG TAB PO SCH (08:34)
[2020-06-04] MEDS: DOXYCYCLINE HYCLATE 100MG TABLET PO SCH (08:34)
[2020-06-04] MEDS: CETIRIZINE (ZyrTEC) 10 MG TAB PO SCH (08:34)
[2020-06-04] MEDS: MONTELUKAST 10 MG TAB PO SCH (08:34)
[2020-06-04] MEDS: oxyBUTYnin 5 MG TAB PO SCH (08:35)
[2020-06-04] MEDS: guaiFENesin 200 MG TAB PO SCH ×2 (08:35→20:57)
[2020-06-04] MEDS: VANICREAM MOISTURIZING SKIN CREAM 113GM TUBE TOP SCH ×2 (08:40→22:50)
--- NOTE | 2020-06-04 15:30 | MHIPNPDOC ---
[facility] Progress Note Progress Note DATE OF SERVICE: 06/04/20 HISTORY: Patient is a 55-year-old single, unemployed, silent, male who recently had a psychiatric admission to this facility from 05/14/2020 to 05/26/2020, diagnosis of unspecified bipolar disorder, patient was admitted to medical for cellulitis. While he was on the medical floor he made vague suicidal statements. VITAL SIGNS: See below. CURRENT MEDICATIONS: See below. MENTAL STATUS EXAMINATION: Patient is a 55-year-old single, unemployed, silent, male who had been recently discharged on 05/26/2020, and returned on the same day with complaints of swelling in his leg. He was admitted to medical where he made vague suicidal statements. Speech: normal rate, tone and volume Language skills are intact Thought processes including: Mostly linear, disorganized writing on his folders and has numerous Thought content: Reporting depression, anxiety and fleeting suicidal ideation, racing thoughts Abstract reasoning, and computation: Fair. Description of associations: Denies auditory or visual hallucinations . 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, but more somatic and ruminative about cellulitis Judgment: Fair Insight: Fair Orientation: Alert and oriented to person, place, time and situation Recent and remote memory: Patient has difficulty with short-term memory Attention span and concentration: Fair Language: Expansive Fund of knowledge: Average Mood: Euthymic, appears mildly hypomanic in terms of his writings Affect: flat DIAGNOSES: Unspecified bipolar disorder Alcohol use disorder Nicotine use disorder Asthma COPD Hernia Cellulitis ASSESSMENT:Patient continues to be ruminative, has reported today having difficulty with anger and agitation the last two days but this has been less today, but notes that he has not had this surge of agitation or anger in the past. 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 He states if the worse case scenario happens that he will have to return, reports having difficulty with focusing. He is very repetitive in his interview, and his memory issues are apparent in this interview. While patient does have some improvement, patient has a history of returning to the hospital when feeling overwhelmed. Patient again has numerous notes on various pieces of paper and writing in various stages of thinking - he is quite scattered with regards to his writing. When asked to state what is stopping his discharge, as he reports that he is feeling less depression and not suicidal, he states that he is still disorganized and having racing thoughts. I have reinforced with patient that discharge planning is inevitable and needs to be addressed. He does not feel that he would be safe if discharged tomorrow. MANAGEMENT PLAN: Continue all medications, discharge when stable TIME SPENT: 25 minutes. Vital Signs Vital Signs Date Time Temp Pulse Resp B/P (MAP) Pulse Ox O2 Delivery O2 Flow Rate FiO2 06/04/20 08:33 63 123/63 06/04/20 06:29 98.3 16 100 Nasal Cannula 4.0 Laboratory Data [facility] Labs Laboratory Tests 2 06/03/20 18:38: Immature Granulocyte % (Auto) 0.5, Neutrophils (%) (Auto) 55.6, Lymphocytes (%) (Auto) 34.2, Monocytes (%) (Auto) 8.4H, Eosinophils (%) (Auto) 0.8, Basophils (%) (Auto) 0.5, Neutrophils # (Auto) 4.8, Lymphocytes # (Auto) 2.9, Monocytes # (Auto) 0.7, Eosinophils # (Auto) 0.1, Basophils # (Auto) 0.0, Nucleated Red Blood Cells % (auto) 0.0, Anion Gap 4L, Glomerular Filtration Rate > 60.0, Calcium Level 8.9, Magnesium Level 1.9, C-Reactive Protein, Quantitative 0.30, CR-[id number]-[id number]-Type Natriuretic Peptide 16 CBC/BMP Laboratory Tests 06/03/20 18:38 Current Medications Current Medications Medications (Trade) Dose Ordered Sig/Rey Route PRN Reason Start Time Stop Time Status Last Admin Dose Admin Acetaminophen (Tylenol Tab) 650 mg Q6HP PRN PO HEADACHE or DISCOMFORT 05/30/20 04:30 Al Hydrox/Mg Hydrox/Simethicone (Mylanta) 30 ml Q4HP PRN PO HEARTBURN/INDIGESTION 05/30/20 04:30 Albuterol Sulfate (Proventil, Ventolin Hfa) 2 puff QID PRN INH SHORTNESS OF BREATH 05/30/20 09:00 Albuterol/ Ipratropium (Duoneb (Ipr 0.5mg/Alb 2.5mg)) 3 ml QID PRN NEB SOB/WHEEZING 05/30/20 09:00 Amlodipine Besylate (Norvasc) 5 mg DAILY PO 05/30/20 09:00 06/04/20 08:33 Artificial Tears (Akwa Tears) 2 drop QIDP PRN OU DRY EYES 05/30/20 09:00 06/01/20 20:41 Artificial Tears (Akwa Tears) 2 drop TIDP PRN OU DRY EYES 05/30/20 14:15 UNV Aspirin (Ecotrin) 81 mg DAILY PO 05/30/20 09:00 06/04/20 08:34 Atorvastatin Calcium (Lipitor) 10 mg DAILY PO 05/30/20 09:00 06/04/20 08:34 Buspirone HCl (Buspar) 15 mg BID PO 05/30/20 09:00 06/04/20 08:33 Cetirizine HCl (ZyrTEC) 10 mg DAILY PO 05/30/20 09:00 06/04/20 08:34 Citalopram Hydrobromide (CeleXA) 40 mg DAILY PO 05/30/20 09:00 06/04/20 08:33 Cyanocobalamin (Vitamin B12) 1,000 mcg DAILY PO 05/30/20 09:00 06/04/20 08:34 Doxycycline Hyclate (Vibramycin) 100 mg BID PO 05/30/20 09:00 06/04/20 09:00 DC 06/04/20 08:34 Emollient Cream (Vanicream) Apply to bilateral legs BID TOP 06/03/20 21:00 06/04/20 08:40 Folic Acid (Folic Acid) 1 mg DAILY PO 05/30/20 09:00 06/04/20 08:34 Gabapentin (Neurontin) 100 mg BID PO 05/30/20 09:00 06/04/20 08:33 Guaifenesin (Robitussin Tab) 600 mg BID PO 05/30/20 09:00 06/04/20 08:35 Hydroxyzine HCl (Atarax) 25 mg BID PRN PO ITCHING 05/30/20 04:30 Lamotrigine (LaMICtal) 25 mg QAM PO 06/02/20 09:00 06/04/20 08:33 Magnesium Hydroxide (Milk Of Magnesia) 30 ml DAILYPRN PRN PO CONSTIPATION 05/30/20 04:30 Magnesium Oxide (Mag-Ox) 400 mg DAILY PO 05/30/20 09:00 06/04/20 08:34 Montelukast Sodium (Singulair) 10 mg DAILY PO 05/30/20 09:00 06/04/20 08:34 Multivitamins (Theragram-M) 1 tab DAILY PO 05/30/20 09:00 06/04/20 08:34 Olopatadine HCl (Patanol) 1 drop BID@ PRN OU ITCHING 05/30/20 09:00 Oxybutynin Chloride (Ditropan) 5 mg DAILY PO 05/30/20 09:00 06/04/20 08:35 Pantoprazole Sodium (Protonix) 40 mg DAILY PO 05/30/20 09:00 06/04/20 08:34 Salmeterol Xinafoate/ Fluticasone (Advair Hfa ) 2 puff RBID INH 05/30/20 08:00 06/04/20 08:32 Thiamine HCl (Thiamine HCl) 100 mg DAILY PO 05/30/20 09:00 06/04/20 08:33 Trazodone HCl (Desyrel) 50 mg QHSP PRN PO INSOMNIA 05/30/20 09:00 06/03/20 20:19 Allergies Coded Allergies: ROMULO Inhibitors (Verified Allergy, Severe, ANGIOEDEMA, 11/26/19) azithromycin (Verified Allergy, Severe, ANAPHYLAXIS, 11/26/19) oseltamivir (Verified Allergy, Severe, ANAPHYLAXIS, 11/26/19) latex (Verified Allergy, Intermediate, HIVES, EDEMA, 01/29/20) SEASONAL ALLERGIES (Verified Allergy, Unknown, 11/26/19) JANINE LOERA NP Jun 04, 2020 15:11
[2020-06-04] MEDS: traZODone 50 MG TAB PO PRN (20:57)
[2020-06-05 06:35] VITALS: BP 123/58
[2020-06-05] MEDS: ADVAIR HFA 230/21MCG INHALER INH SCH ×2 (08:17→20:39)
[2020-06-05] MEDS: guaiFENesin 200 MG TAB PO SCH ×2 (08:19→20:38)
[2020-06-05] MEDS: oxyBUTYnin 5 MG TAB PO SCH (08:19)
[2020-06-05] MEDS: MONTELUKAST 10 MG TAB PO SCH (08:20)
[2020-06-05] MEDS: CETIRIZINE (ZyrTEC) 10 MG TAB PO SCH (08:20)
[2020-06-05] MEDS: CYANOCOBALAMIN 500 MCG TAB PO SCH (08:20)
[2020-06-05] MEDS: ATORVASTATIN 10 MG TAB PO SCH (08:20)
[2020-06-05] MEDS: amLODIPine 5 MG TAB PO SCH (08:22)
[2020-06-05] MEDS: FOLIC ACID 1 MG TAB PO SCH (08:23)
[2020-06-05] MEDS: ASPIRIN 81MG ENTERIC TABLET PO SCH (08:23)
[2020-06-05] MEDS: MAGNESIUM OXIDE 400MG TAB (MAG-OX) PO SCH (08:23)
[2020-06-05] MEDS: GABAPENTIN 100 MG CAP PO SCH ×2 (08:23→20:39)
[2020-06-05] MEDS: lamoTRIgine 25MG TAB PO SCH (08:23)
[2020-06-05] MEDS: PANTOPRAZOLE 40MG TAB (PROTONIX) PO SCH (08:23)
[2020-06-05] MEDS: THIAMINE 100 MG TAB PO SCH (08:23)
[2020-06-05] MEDS: MULTIVITAMINS/MINERALS THERAP 1 TAB PO SCH (08:23)
[2020-06-05] MEDS: CitaloPRAM (CeleXA) 20 MG TAB PO SCH (08:23)
[2020-06-05] MEDS: busPIRone 5 MG TAB PO SCH ×2 (08:23→20:39)
[2020-06-05] MEDS: VANICREAM MOISTURIZING SKIN CREAM 113GM TUBE TOP SCH ×2 (08:25→20:40)
--- NOTE | 2020-06-05 14:39 | MHIPNPDOC ---
[facility] Progress Note Progress Note DATE OF SERVICE: 06/05/20 HISTORY: Patient is a 55-year-old single, unemployed, silent, male who recently had a psychiatric admission to this facility from 05/14/2020 to 05/26, diagnosis of unspecified bipolar disorder, patient was admitted to medical for cellulitis. While he was on the medical floor he made vague suicidal statements. VITAL SIGNS: See below. CURRENT MEDICATIONS: See below. MENTAL STATUS EXAMINATION: Patient is a 55-year-old single, unemployed, silent, male who had been recently discharged on 05/26/2020, and returned on the same day with complaints of swelling in his leg. He was admitted to medical where he made vague suicidal statements. Speech: normal rate, tone and volume Language skills are intact Thought processes including: Linear and goal oriented Thought content:denies depression and anxiety no suicidal ideation, racing thoughts Abstract reasoning, and computation: Fair. Description of associations: Denies auditory or visual hallucinations . Description of abnormal or psychotic thoughts: Ruminative about his plans outside of the hospital Judgment: Fair Insight: Fair Orientation: Alert and oriented to person, place, time and situation Recent and remote memory: Patient has difficulty with short-term memory Attention span and concentration: Fair Language: Expansive Fund of knowledge: Average Mood: Euthymic, appears mildly hypomanic in terms of his writings Affect: flat DIAGNOSES: Unspecified bipolar disorder Alcohol use disorder Nicotine use disorder Asthma COPD Hernia Cellulitis ASSESSMENT: Patient reports that he is feeling better and that he he is prepared for his discharge. He is hesitant often when this is discussed and he appears to give himself a moment or two to respond when asked if he is prepared for his discharge on Monday. Reinforced with patient that the cellulitis in his leg is improving. He is observed to be mildly hypomanic in the goal-oriented activities of writing and making multiple lists. He carries a folder with multiple pens, multiple lists (10-15) folded and unfolded. His speech is normal rate, he appears to have less racing thoughts. MANAGEMENT PLAN: Continue all medications, discharge when stable TIME SPENT: 25 minutes. Vital Signs Vital Signs Date Time Temp Pulse Resp B/P (MAP) Pulse Ox O2 Delivery O2 Flow Rate FiO2 06/05/20 08:22 76 123/58 06/05/20 06:35 99.1 18 98 Room Air 06/04/20 06:29 4.0 Current Medications Current Medications Medications (Trade) Dose Ordered Sig/Rey Route PRN Reason Start Time Stop Time Status Last Admin Dose Admin Acetaminophen (Tylenol Tab) 650 mg Q6HP PRN PO HEADACHE or DISCOMFORT 05/30/20 04:30 Al Hydrox/Mg Hydrox/Simethicone (Mylanta) 30 ml Q4HP PRN PO HEARTBURN/INDIGESTION 05/30/20 04:30 Albuterol Sulfate (Proventil, Ventolin Hfa) 2 puff QID PRN INH SHORTNESS OF BREATH 05/30/20 09:00 Albuterol/ Ipratropium (Duoneb (Ipr 0.5mg/Alb 2.5mg)) 3 ml QID PRN NEB SOB/WHEEZING 05/30/20 09:00 Amlodipine Besylate (Norvasc) 5 mg DAILY PO 05/30/20 09:00 06/05/20 08:22 Artificial Tears (Akwa Tears) 2 drop QIDP PRN OU DRY EYES 05/30/20 09:00 06/01/20 20:41 Artificial Tears (Akwa Tears) 2 drop TIDP PRN OU DRY EYES 05/30/20 14:15 UNV Aspirin (Ecotrin) 81 mg DAILY PO 05/30/20 09:00 06/05/20 08:23 Atorvastatin Calcium (Lipitor) 10 mg DAILY PO 05/30/20 09:00 06/05/20 08:20 Buspirone HCl (Buspar) 15 mg BID PO 05/30/20 09:00 06/05/20 08:23 Cetirizine HCl (ZyrTEC) 10 mg DAILY PO 05/30/20 09:00 06/05/20 08:20 Citalopram Hydrobromide (CeleXA) 40 mg DAILY PO 05/30/20 09:00 06/05/20 08:23 Cyanocobalamin (Vitamin B12) 1,000 mcg DAILY PO 05/30/20 09:00 06/05/20 08:20 Doxycycline Hyclate (Vibramycin) 100 mg BID PO 05/30/20 09:00 06/04/20 09:00 DC 06/04/20 08:34 Emollient Cream (Vanicream) Apply to bilateral legs BID TOP 06/03/20 21:00 06/05/20 08:25 Folic Acid (Folic Acid) 1 mg DAILY PO 05/30/20 09:00 06/05/20 08:23 Gabapentin (Neurontin) 100 mg BID PO 05/30/20 09:00 06/05/20 08:23 Guaifenesin (Robitussin Tab) 600 mg BID PO 05/30/20 09:00 06/05/20 08:19 Hydroxyzine HCl (Atarax) 25 mg BID PRN PO ITCHING 05/30/20 04:30 Lamotrigine (LaMICtal) 25 mg QAM PO 06/02/20 09:00 06/05/20 08:23 Magnesium Hydroxide (Milk Of Magnesia) 30 ml DAILYPRN PRN PO CONSTIPATION 05/30/20 04:30 Magnesium Oxide (Mag-Ox) 400 mg DAILY PO 05/30/20 09:00 06/05/20 08:23 Montelukast Sodium (Singulair) 10 mg DAILY PO 05/30/20 09:00 06/05/20 08:20 Multivitamins (Theragram-M) 1 tab DAILY PO 05/30/20 09:00 06/05/20 08:23 Olopatadine HCl (Patanol) 1 drop BID@09,17 PRN OU ITCHING 05/30/20 09:00 Oxybutynin Chloride (Ditropan) 5 mg DAILY PO 05/30/20 09:00 06/05/20 08:19 Pantoprazole Sodium (Protonix) 40 mg DAILY PO 05/30/20 09:00 06/05/20 08:23 Salmeterol Xinafoate/ Fluticasone (Advair Hfa 230/ ) 2 puff RBID INH 05/30/20 08:00 06/05/20 08:17 Thiamine HCl (Thiamine HCl) 100 mg DAILY PO 05/30/20 09:00 06/05/20 08:23 Trazodone HCl (Desyrel) 50 mg QHSP PRN PO INSOMNIA 05/30/20 09:00 06/04/20 20:57 Allergies Coded Allergies: ROMULO Inhibitors (Verified Allergy, Severe, ANGIOEDEMA, 11/26/19) azithromycin (Verified Allergy, Severe, ANAPHYLAXIS, 11/26/19) oseltamivir (Verified Allergy, Severe, ANAPHYLAXIS, 11/26/19) latex (Verified Allergy, Intermediate, HIVES, EDEMA, 01/29/20) SEASONAL ALLERGIES (Verified Allergy, Unknown, 11/26/19) JANINE LOERA NP Jun 05, 2020 14:10
[2020-06-05] MEDS ORDERED: DOXYCYCLINE HYCLATE 100MG TABLET PO ONE (15:00)
[2020-06-05 19:38] VITALS: BP 135/73
[2020-06-06] MEDS ORDERED: DOXYCYCLINE HYCLATE 100MG TABLET PO SCH (06:00)
[2020-06-06] MEDS: DOXYCYCLINE HYCLATE 100MG TABLET PO SCH ×2 (06:00→17:29)
[2020-06-06 08:13] VITALS: BP 132/77
[2020-06-06] MEDS: ADVAIR HFA 230/21MCG INHALER INH SCH ×2 (08:35→20:03)
[2020-06-06] MEDS: busPIRone 5 MG TAB PO SCH ×2 (08:38→20:03)
[2020-06-06] MEDS: MULTIVITAMINS/MINERALS THERAP 1 TAB PO SCH (08:38)
[2020-06-06] MEDS: CYANOCOBALAMIN 500 MCG TAB PO SCH (08:38)
[2020-06-06] MEDS: amLODIPine 5 MG TAB PO SCH (08:38)
[2020-06-06] MEDS: GABAPENTIN 100 MG CAP PO SCH ×2 (08:39→20:03)
[2020-06-06] MEDS: guaiFENesin 200 MG TAB PO SCH ×2 (08:39→20:02)
[2020-06-06] MEDS: FOLIC ACID 1 MG TAB PO SCH (08:39)
[2020-06-06] MEDS: PANTOPRAZOLE 40MG TAB (PROTONIX) PO SCH (08:39)
[2020-06-06] MEDS: MONTELUKAST 10 MG TAB PO SCH (08:39)
[2020-06-06] MEDS: lamoTRIgine 25MG TAB PO SCH (08:39)
[2020-06-06] MEDS: CETIRIZINE (ZyrTEC) 10 MG TAB PO SCH (08:39)
[2020-06-06] MEDS: ATORVASTATIN 10 MG TAB PO SCH (08:39)
[2020-06-06] MEDS: CitaloPRAM (CeleXA) 20 MG TAB PO SCH (08:40)
[2020-06-06] MEDS: MAGNESIUM OXIDE 400MG TAB (MAG-OX) PO SCH (08:40)
[2020-06-06] MEDS: THIAMINE 100 MG TAB PO SCH (08:40)
[2020-06-06] MEDS: ASPIRIN 81MG ENTERIC TABLET PO SCH (08:40)
[2020-06-06] MEDS: oxyBUTYnin 5 MG TAB PO SCH (08:40)
[2020-06-06] MEDS: VANICREAM MOISTURIZING SKIN CREAM 113GM TUBE TOP SCH ×2 (08:46→20:03)
[2020-06-06 16:45] VITALS: BP 135/77
[2020-06-06] MEDS: traZODone 50 MG TAB PO PRN (20:03)
[2020-06-07 06:00] VITALS: BP 128/73
[2020-06-07] MEDS: DOXYCYCLINE HYCLATE 100MG TABLET PO SCH ×2 (06:31→18:03)
[2020-06-07] MEDS: ADVAIR HFA 230/21MCG INHALER INH SCH ×2 (08:15→20:37)
[2020-06-07] MEDS: ATORVASTATIN 10 MG TAB PO SCH (08:17)
[2020-06-07] MEDS: guaiFENesin 200 MG TAB PO SCH ×2 (08:18→20:37)
[2020-06-07] MEDS: MONTELUKAST 10 MG TAB PO SCH (08:18)
[2020-06-07] MEDS: CYANOCOBALAMIN 500 MCG TAB PO SCH (08:18)
[2020-06-07] MEDS: oxyBUTYnin 5 MG TAB PO SCH (08:18)
[2020-06-07] MEDS: CETIRIZINE (ZyrTEC) 10 MG TAB PO SCH (08:18)
[2020-06-07] MEDS: lamoTRIgine 25MG TAB PO SCH (08:19)
[2020-06-07] MEDS: CitaloPRAM (CeleXA) 20 MG TAB PO SCH (08:19)
[2020-06-07] MEDS: amLODIPine 5 MG TAB PO SCH (08:19)
[2020-06-07] MEDS: THIAMINE 100 MG TAB PO SCH (08:19)
[2020-06-07] MEDS: FOLIC ACID 1 MG TAB PO SCH (08:20)
[2020-06-07] MEDS: MULTIVITAMINS/MINERALS THERAP 1 TAB PO SCH (08:20)
[2020-06-07] MEDS: ASPIRIN 81MG ENTERIC TABLET PO SCH (08:20)
[2020-06-07] MEDS: PANTOPRAZOLE 40MG TAB (PROTONIX) PO SCH (08:20)
[2020-06-07] MEDS: busPIRone 5 MG TAB PO SCH ×2 (08:20→20:37)
[2020-06-07] MEDS: GABAPENTIN 100 MG CAP PO SCH ×2 (08:20→20:38)
[2020-06-07] MEDS: MAGNESIUM OXIDE 400MG TAB (MAG-OX) PO SCH (08:21)
[2020-06-07] MEDS: VANICREAM MOISTURIZING SKIN CREAM 113GM TUBE TOP SCH ×2 (08:24→20:39)
[2020-06-07 19:06] VITALS: BP 140/77
[2020-06-07] MEDS: traZODone 50 MG TAB PO PRN (20:37)
[2020-06-08] MEDS: DOXYCYCLINE HYCLATE 100MG TABLET PO SCH ×2 (05:47→17:32)
[2020-06-08 06:26] VITALS: BP 121/73
[2020-06-08] MEDS: ADVAIR HFA 230/21MCG INHALER INH SCH ×2 (08:31→20:49)
[2020-06-08] MEDS: oxyBUTYnin 5 MG TAB PO SCH (08:33)
[2020-06-08] MEDS: amLODIPine 5 MG TAB PO SCH (08:35)
[2020-06-08] MEDS: MAGNESIUM OXIDE 400MG TAB (MAG-OX) PO SCH (08:36)
[2020-06-08] MEDS: guaiFENesin 200 MG TAB PO SCH ×2 (08:36→20:49)
[2020-06-08] MEDS: ASPIRIN 81MG ENTERIC TABLET PO SCH (08:36)
[2020-06-08] MEDS: MULTIVITAMINS/MINERALS THERAP 1 TAB PO SCH (08:36)
[2020-06-08] MEDS: lamoTRIgine 25MG TAB PO SCH (08:36)
[2020-06-08] MEDS: PANTOPRAZOLE 40MG TAB (PROTONIX) PO SCH (08:36)
[2020-06-08] MEDS: MONTELUKAST 10 MG TAB PO SCH (08:36)
[2020-06-08] MEDS: CitaloPRAM (CeleXA) 20 MG TAB PO SCH (08:36)
[2020-06-08] MEDS: busPIRone 5 MG TAB PO SCH ×2 (08:36→20:49)
[2020-06-08] MEDS: THIAMINE 100 MG TAB PO SCH (08:36)
[2020-06-08] MEDS: FOLIC ACID 1 MG TAB PO SCH (08:36)
[2020-06-08] MEDS: CYANOCOBALAMIN 500 MCG TAB PO SCH (08:36)
[2020-06-08] MEDS: CETIRIZINE (ZyrTEC) 10 MG TAB PO SCH (08:36)
[2020-06-08] MEDS: GABAPENTIN 100 MG CAP PO SCH ×2 (08:36→20:49)
[2020-06-08] MEDS: ATORVASTATIN 10 MG TAB PO SCH (08:36)
[2020-06-08] MEDS: VANICREAM MOISTURIZING SKIN CREAM 113GM TUBE TOP SCH ×2 (09:34→20:49)
--- NOTE | 2020-06-08 15:14 | MHIPNPDOC ---
[facility] Progress Note Progress Note DATE OF SERVICE: 06/08/20 HISTORY: Patient is a 55-year-old single, unemployed, silent, male who recently had a psychiatric admission to this facility from 05/14/2020 to , diagnosis of unspecified bipolar disorder, patient was admitted to medical for cellulitis. While he was on the medical floor he made vague suicidal statements. VITAL SIGNS: See below. CURRENT MEDICATIONS: See below. MENTAL STATUS EXAMINATION: Patient is a 55-year-old single, unemployed, silent, male who had been recently discharged on 05/26/2020, and returned on the same day with complaints of swelling in his leg. He was admitted to medical where he made vague suicidal statements. Speech: normal rate, tone and volume Language skills are intact Thought processes including: Linear and goal oriented Thought content:denies depression and anxiety no suicidal ideation, decreased racing thoughts Abstract reasoning, and computation: Fair. Description of associations: Denies auditory or visual hallucinations . Description of abnormal or psychotic thoughts: Ruminative about his plans outside of the hospital Judgment: Improved Insight: Fair Orientation: Alert and oriented to person, place, time and situation Recent and remote memory: Patient has difficulty with short-term memory Attention span and concentration: Fair Language: Expansive Fund of knowledge: Average Mood: Euthymic Affect: flat DIAGNOSES: Unspecified bipolar disorder Alcohol use disorder Nicotine use disorder Asthma COPD Hernia Cellulitis ASSESSMENT: In today's meeting, patient met with primary RN, media planner and myself. Patient states that he does not know if he is ready for today's interview. Attempts to deflect questions about what he needs further in order for him to be comfortable with being discharged. States that after his Monday meeting, he wrote notes about his meeting with me and that he did not feel that he had answers. When I reviewed with him that in his conversation with me DURING the meeting when I was documenting in real time that patient made no mention that he felt upset and felt that his questions had not been answered. He reported in today's meeting that he wrote notes after the meeting that he was unsatisfied. When confronted today he did not identify anything that the hospital needed to do in order to facilitate his discharge other than that he was not "mentally ready" for discharge today. Patient is seen in the groups as cooperative and engaged. He is cooperative and friendly with staff and peers. He has been denying depression and suicidal thinking and had reported for many days up until today that he was readying himself for his discharge today. Many times patient states that he has "lists of things" that he needs to do to move forward but we have reinforced with the patient that his list does not hinder or require him to stay in this facility. His lists consists of things that cannot be accomplished while he is a patient. MANAGEMENT PLAN: Continue all medications, discharge is delayed as patient is reporting that he is not "mentally stable" for discharge. TIME SPENT: 25 minutes. Vital Signs Vital Signs Date Time Temp Pulse Resp B/P (MAP) Pulse Ox O2 Delivery O2 Flow Rate FiO2 06/08/20 08:35 70 131/79 06/08/20 06:26 97.8 14 97 Room Air 06/04/20 06:29 4.0 Current Medications Current Medications Medications (Trade) Dose Ordered Sig/Rey Route PRN Reason Start Time Stop Time Status Last Admin Dose Admin Acetaminophen (Tylenol Tab) 650 mg Q6HP PRN PO HEADACHE or DISCOMFORT 05/30/20 04:30 Al Hydrox/Mg Hydrox/Simethicone (Mylanta) 30 ml Q4HP PRN PO HEARTBURN/INDIGESTION 05/30/20 04:30 Albuterol Sulfate (Proventil, Ventolin Hfa) 2 puff QID PRN INH SHORTNESS OF BREATH 05/30/20 09:00 Albuterol/ Ipratropium (Duoneb (Ipr 0.5mg/Alb 2.5mg)) 3 ml QID PRN NEB SOB/WHEEZING 05/30/20 09:00 Amlodipine Besylate (Norvasc) 5 mg DAILY PO 05/30/20 09:00 06/08/20 08:35 Artificial Tears (Akwa Tears) 2 drop QIDP PRN OU DRY EYES 05/30/20 09:00 06/01/20 20:41 Artificial Tears (Akwa Tears) 2 drop TIDP PRN OU DRY EYES 05/30/20 14:15 UNV Aspirin (Ecotrin) 81 mg DAILY PO 05/30/20 09:00 06/08/20 08:36 Atorvastatin Calcium (Lipitor) 10 mg DAILY PO 05/30/20 09:00 06/08/20 08:36 Buspirone HCl (Buspar) 15 mg BID PO 05/30/20 09:00 06/08/20 08:36 Cetirizine HCl (ZyrTEC) 10 mg DAILY PO 05/30/20 09:00 06/08/20 08:36 Citalopram Hydrobromide (CeleXA) 40 mg DAILY PO 05/30/20 09:00 06/08/20 08:36 Cyanocobalamin (Vitamin B12) 1,000 mcg DAILY PO 05/30/20 09:00 06/08/20 08:36 Doxycycline Hyclate (Vibramycin) 100 mg BID PO 05/30/20 09:00 06/04/20 09:00 DC 06/04/20 08:34 Doxycycline Hyclate (Vibramycin) 100 mg BID@0600,1800 PO 06/06/20 06:00 06/05/20 15:16 DC Doxycycline Hyclate (Vibramycin) 100 mg BID@0600,1800 PO 06/06/20 06:00 06/08/20 05:47 Emollient Cream (Vanicream) Apply to bilateral legs BID TOP 06/03/20 21:00 06/08/20 09:34 Folic Acid (Folic Acid) 1 mg DAILY PO 05/30/20 09:00 06/08/20 08:36 Gabapentin (Neurontin) 100 mg BID PO 05/30/20 09:00 06/08/20 08:36 Guaifenesin (Robitussin Tab) 600 mg BID PO 05/30/20 09:00 06/08/20 08:36 Hydroxyzine HCl (Atarax) 25 mg BID PRN PO ITCHING 05/30/20 04:30 Lamotrigine (LaMICtal) 25 mg QAM PO 06/02/20 09:00 06/08/20 08:36 Magnesium Hydroxide (Milk Of Magnesia) 30 ml DAILYPRN PRN PO CONSTIPATION 05/30/20 04:30 Magnesium Oxide (Mag-Ox) 400 mg DAILY PO 05/30/20 09:00 06/08/20 08:36 Montelukast Sodium (Singulair) 10 mg DAILY PO 05/30/20 09:00 06/08/20 08:36 Multivitamins (Theragram-M) 1 tab DAILY PO 05/30/20 09:00 06/08/20 08:36 Olopatadine HCl (Patanol) 1 drop BID@09,17 PRN OU ITCHING 05/30/20 09:00 Oxybutynin Chloride (Ditropan) 5 mg DAILY PO 05/30/20 09:00 06/08/20 08:33 Pantoprazole Sodium (Protonix) 40 mg DAILY PO 05/30/20 09:00 06/08/20 08:36 Salmeterol Xinafoate/ Fluticasone (Advair Hfa / ) 2 puff RBID INH 05/30/20 08:00 06/08/20 08:31 Thiamine HCl (Thiamine HCl) 100 mg DAILY PO 05/30/20 09:00 06/08/20 08:36 Trazodone HCl (Desyrel) 50 mg QHSP PRN PO INSOMNIA 05/30/20 09:00 06/07/20 20:37 Allergies Coded Allergies: ROMULO Inhibitors (Verified Allergy, Severe, ANGIOEDEMA, 11/26/19) azithromycin (Verified Allergy, Severe, ANAPHYLAXIS, 11/26/19) oseltamivir (Verified Allergy, Severe, ANAPHYLAXIS, 11/26/19) latex (Verified Allergy, Intermediate, HIVES, EDEMA, 01/29/20) SEASONAL ALLERGIES (Verified Allergy, Unknown, 11/26/19) JANINE LOERA NP Jun 08, 2020 10:33
[2020-06-08 16:00] VITALS: BP 129/76
[2020-06-08] MEDS: traZODone 50 MG TAB PO PRN (20:49)
[2020-06-09] MEDS: DOXYCYCLINE HYCLATE 100MG TABLET PO SCH (05:59)
[2020-06-09 06:45] VITALS: BP 124/69
[2020-06-09] MEDS: VANICREAM MOISTURIZING SKIN CREAM 113GM TUBE TOP SCH (08:39)
[2020-06-09] MEDS: ADVAIR HFA 230/21MCG INHALER INH SCH (08:39)
[2020-06-09] MEDS: PANTOPRAZOLE 40MG TAB (PROTONIX) PO SCH (08:40)
[2020-06-09] MEDS: busPIRone 5 MG TAB PO SCH (08:40)
[2020-06-09] MEDS: ATORVASTATIN 10 MG TAB PO SCH (08:40)
[2020-06-09] MEDS: FOLIC ACID 1 MG TAB PO SCH (08:40)
[2020-06-09] MEDS: CETIRIZINE (ZyrTEC) 10 MG TAB PO SCH (08:40)
[2020-06-09] MEDS: GABAPENTIN 100 MG CAP PO SCH (08:40)
[2020-06-09] MEDS: MAGNESIUM OXIDE 400MG TAB (MAG-OX) PO SCH (08:41)
[2020-06-09] MEDS: MULTIVITAMINS/MINERALS THERAP 1 TAB PO SCH (08:41)
[2020-06-09] MEDS: ASPIRIN 81MG ENTERIC TABLET PO SCH (08:41)
[2020-06-09] MEDS: CitaloPRAM (CeleXA) 20 MG TAB PO SCH (08:41)
[2020-06-09] MEDS: guaiFENesin 200 MG TAB PO SCH (08:41)
[2020-06-09] MEDS: CYANOCOBALAMIN 500 MCG TAB PO SCH (08:41)
[2020-06-09] MEDS: MONTELUKAST 10 MG TAB PO SCH (08:41)
[2020-06-09] MEDS: THIAMINE 100 MG TAB PO SCH (08:41)
[2020-06-09] MEDS: lamoTRIgine 25MG TAB PO SCH (08:41)
[2020-06-09] MEDS: oxyBUTYnin 5 MG TAB PO SCH (08:41)
[2020-06-09 08:42] VITALS: BP 125/78
[2020-06-09] MEDS: amLODIPine 5 MG TAB PO SCH (08:42)
[2020-06-09] MEDS ORDERED: ADV500INH INH (13:23)
[2020-06-09] MEDS ORDERED: SING10TA32 PO (13:23)
[2020-06-09] MEDS ORDERED: VITA100018 PO (13:23)
[2020-06-09] MEDS ORDERED: INCR1INH INH (13:23)
[2020-06-09] MEDS ORDERED: EPIN0.3I11 INJ (13:23)
[2020-06-09] MEDS ORDERED: VITA50TA47 PO (13:23)
[2020-06-09] MEDS ORDERED: VENTAER INH (13:23)
[2020-06-09] MEDS ORDERED: PANT40TA29 PO (13:23)
[2020-06-09] MEDS ORDERED: LEVOTAB10 PO (13:23)
[2020-06-09] MEDS ORDERED: FOLI1TAB11 PO (13:23)
[2020-06-09] MEDS ORDERED: POLYOPD OU (13:23)
[2020-06-09] MEDS ORDERED: CELE40TA PO (13:24)
[2020-06-09] MEDS ORDERED: VITMTA PO (13:24)
[2020-06-09] MEDS ORDERED: LAMI25TA PO (13:24)
[2020-06-09] MEDS ORDERED: GABA-1171 PO (13:24)
[2020-06-09] MEDS ORDERED: MAGN1TAB26 PO (13:24)
[2020-06-09] MEDS ORDERED: TRAZ-252 PO (13:24)
[2020-06-09] MEDS ORDERED: OXYB-54 PO (13:24)
[2020-06-09] MEDS ORDERED: MUCI600T31 PO (13:24)
[2020-06-09] MEDS ORDERED: AMLO1TAB24 PO (13:24)
[2020-06-09] MEDS ORDERED: ASPI-161 PO (13:24)
[2020-06-09] MEDS ORDERED: BUSP15TA47 PO (13:24)
[2020-06-09] MEDS ORDERED: OLOP0.1D OU (13:24)
[2020-06-09] MEDS ORDERED: ATOR1TAB19 PO (13:24)
--- NOTE | 2020-06-09 15:16 | MHDSPDOC ---
[facility] Discharge Summary Discharge Summary DATE OF ADMISSION: May 29, 2020 at 22:05 DATE OF DISCHARGE: 06/09/20 at 1511 DISCHARGE DIAGNOSES: Unspecified bipolar disorder Alcohol use disorder Rule out Korsakoff's dementia Nicotine use disorder Asthma COPD Hernia Cellulitis REASON FOR ADMISSION: Patient is a 55-year-old single, unemployed, silent, male who recently had a psychiatric admission to this facility from 05/14/2020 to 05/26/2020, diagnosis of unspecified bipolar disorder and rule out dementia secondary to Korsakoff's syndrome at that time patient has positive suicidal ideation to jump from a bridge or shoot himself. On this occasion patient was admitted to medical for cellulitis. While he was on the medical floor he made vague suicidal statements. CONSULTANTS INVOLVED: See Medical H + P by Hospitalist TREATMENT AND PROGRESS ON THE UNIT: Patient was admitted to the [facility] on a 9.39 legal status he was afforded the following treatment modalities: 1) Individual Therapy 2) Group Therapy 3) Medication Management 4) Milieu Therapy 5) Safe Environment HOSPITAL COURSE: Patient was admitted to psychiatry from a medical floor. He was recently discharged from this unit on May 26 and he returned to the ED on the same evening reporting an increase in swelling and redness in his leg which has cellulitis, while he was on a medical floor he had alluded to suicidal thinking and was subsequently admitted for his vague suicidality. While he had been admitted he was agreeable to mood stabilizer (Lamictal) and attended groups. 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 When asked if he is safe for discharge today he stated "I don't have definitive answer." When asked if he is safe for discharge he states "I cannot not promise that I won't hurt myself." In reviewing his safety plans - patient states this safety plan prior to calling the ambulance is to 1) call his patient case manager, 2) call his sister, 3) call the Hotline, 4) call his neighbor. His concerns are following up with [facility] for his physical/medical needs. Wants to speak to Lawson Davis, ATTErickson about his housing. 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 He states that he know his personal banker at [facility] [employer] which is Anabelle. And upon his discharge he states that he has a list of thing that he needs to attend to. Again all of these tasks were not things that the hospital could assist with nor was hindering his discharge. Patient does appear to be grandiose in his personality, treatment team staff postulates that this is to conceal his poor memory and cognition. He was overheard stating "I am afraid to go home" but does not elaborate. Treatment team have put an application to [facility] for additional services and housing. This may not be considered top priority as patient presents as high functioning but I have my doubts that he can attend to his high level needs such as medications, arranging for his transportation. He states that he has notes to follow through on this, but he appears to have poor ability to function without assistance. He refused releases to his family and that seemed suspect. On his last admission he allowed his mother to be contacted but she contradicted his stories and on this hospitalization he refused. Patient has a long history of alcohol use, and history of COPD and Hepatic Encephalopathy. He has racing thoughts, has been disorganized in his obsessive note taking - while these are observations, he reports that he has not suicidal/homicidal thoughts, intent or planning. He denies depression. He reports anxiety but this relates to his wanting services in place prior to his discharge. Many of these services cannot be met by this hospital as DSS is his top priority. For now, he has housing. He questions whether he can get food stamps or Medicaid. We have strongly reinforced that none of these services can be arranged by the treatment team and he would need to meet with his patient case manager for these. DISCHARGE ASSESSMENT: In today's interview, patient is alert and oriented, pts dress is appropriate. Hygiene and grooming is well-kempt. Smiles on approach and is pleasant and engaged in the interview. Denies depression and anxiety. Denies suicidal and homicidal ideation, planning or intent. Denies and is not observed with delvis, psychotic symptoms of delusions, bizarre thinking, obsessions, paranoia, ruminations illogical thoughts, flight of ideas or having poor insight and judgement. Patient has normal mentation, declines further ho spitalization on a voluntary status and meets criteria for discharge today. Patient encouraged to return to hospital if his symptoms worsen or change and encouraged to call unit if he/she/they needs to speak to provider for questions regarding medications or care. MENTAL STATUS EXAMINATION ON DISCHARGE: Patient is a 55-year-old single, unemployed, silent, male who recently had a psychiatric admission to this facility from 05/14/2020 to 05/26/2020, diagnosis of unspecified bipolar disorder and rule out dementia secondary to Korsakoff's syndrome at that time patient has positive suicidal ideation to jump from a bridge or shoot himself. On this occasion patient was admitted to medical for cellulitis. While he was on the medical floor he made vague suicidal statements. Speech: Is fluid, conversant, normal rate, tone and volume at times during the interview it was fast Language skills are intact Thought processes including: linear and goal oriented, but he appears to confabulate during the interview with treatment team Thought content: denies depression and anxiety. Denies suicidal/homicidal ideation, planning or intent. Abstract reasoning, and computation: fair Description of associations: denies, none observed Description of abnormal or psychotic thoughts: denies, none observed. Judgment: fair Insight: fair Orientation: alert and oriented to person, place, time and situation Recent and remote memory: short term memory loss Attention span and concentration: varies Language: expansive Fund of knowledge: average Mood: Euthymic Mood Affect: reactive MEDICATIONS ON DISCHARGE: See Medication Reconciliation PLAN/FOLLOWUP ARRANGEMENTS: Patient is being discharge to home, he has follow up services at [facility] The amount of time spent in the coordination of care for this patient was approximately 45 minutes. ETOH/Disorder Med Rx ETOH/DRUG DISORDER RX: Offrd @ d/c & pt refused Vital Signs/I&Os Vital Signs Date Time Temp Pulse Resp B/P (MAP) Pulse Ox O2 Delivery O2 Flow Rate FiO2 06/09/20 08:42 96 125/78 06/09/20 06:45 98.6 18 100 Nasal Cannula 2.0 Medications Scheduled Amlodipine Besylate (Amlodipine Besylate) 5 Mg Tablet, 5 MG PO DAILY for Blood Pressure, #7 Aspirin (Aspirin EC) 81 Mg Tablet.dr, 81 MG PO DAILY for Antiplatelet, #7 Atorvastatin Calcium (Atorvastatin Calcium) 10 Mg Tablet, 10 MG PO DAILY for cholesterol, #7 Buspirone HCl (Buspirone HCl) 15 Mg Tablet, 15 MG PO BID for Anxiety, #14 Citalopram Hydrobromide (Celexa) 40 Mg Tablet, 40 MG PO DAILY for Depression, #7 Cyanocobalamin (Vitamin B-12) (Vitamin B-12) 1,000 Mcg Tab, 1,000 MCG PO DAILY for Vitamin Replacement, #7 Folic Acid (Folic Acid) 1 Mg Tab, 1 MG PO DAILY for Vitamin Replacement, #7 Gabapentin (Gabapentin) 100 Mg Capsule, 100 MG PO BID for Anxiety, #14 Lamotrigine (Lamictal) 25 Mg Tablet, 25 MG PO QAM for Mood, #7 Levocetirizine Dihydrochloride (Levocetirizine Dihydrochloride) 5 Mg Tab, 5 MG PO DAILY for Allergies, #7 Magnesium Oxide (Magnesium Oxide) 400 Mg Tablet, 400 MG PO DAILY for Vitamin Replacement, #7 Montelukast Sodium (Singulair) 10 Mg Tab, 10 MG PO DAILY for COPD, #7 Multivitamins (Thera M Plus Tablet) 1 Tab Tab, 1 TAB PO DAILY for Vitamin Replacement, #7 Oxybutynin Chloride (Oxybutynin Chloride ER) 5 Mg Tab, 5 MG PO DAILY for Bladder Spasm, #7 Pantoprazole Sodium (Pantoprazole Sodium) 40 Mg Tab, 40 MG PO DAILY for Acid Reflux, #7 Salmeterol/Fluticasone (Advair 500-50 Diskus) 28 Puff/Inhaler Aerp, 1 PUFF INH BID for Shortness of Breath, #1 Thiamine HCl (Vitamin B-1) 50 Mg Tab, 100 MG PO DAILY for Vitamin Replacement, #7 Umeclidinium [place] (Incruse Ellipta) 62.5 Mcg/Inh Inh, 1 PUFF INH DAILY for Shortness of Breath, #1 Scheduled PRN Acetaminophen (Tylenol Extra Strength) 500 Mg Tablet, 1,000 MG PO Q6H PRN for PAIN, (Reported) Albuterol Sulfate (Ventolin Hfa) 108 Mcg/Act Aer, 2 PUFFS INH Q4H PRN for SHORTNESS OF BREATH, #1 Epinephrine (Epinephrine) 0.3 Mg/0.3 Ml Inj, 0.3 MG INJ ASDIRECTED PRN for ANAPHYLAXIS, #1 Guaifenesin (Mucinex) 600 Mg Tab.er.12h, 600 MG PO BID PRN for CONGESTION, #14 Ipratropium/Albuterol Sulfate (Iprat-Albut 0.5-3(2.5) mg/3 ml) 1 Bell Bell, 3 ML INH QID PRN for SHORTNESS OF BREATH, (Reported) Olopatadine HCl (Olopatadine HCl) 0.1% 5ML Drops, 1 DROP OU BID PRN for ITCHING, #1 Polyvinyl Alcohol (Artificial Tears) 1.4 % Bell, 1 DROP OU QID PRN for DRY EYES, #1 Trazodone HCl (Trazodone HCl) 50 Mg Tablet, 50 MG PO QHS PRN for INSOMNIA, #7 Allergies Coded Allergies: ROMULO Inhibitors (Verified Allergy, Severe, ANGIOEDEMA, 11/26/19) azithromycin (Verified Allergy, Severe, ANAPHYLAXIS, 11/26/19) oseltamivir (Verified Allergy, Severe, ANAPHYLAXIS, 11/26/19) latex (Verified Allergy, Intermediate, HIVES, EDEMA, 01/29/20) SEASONAL ALLERGIES (Verified Allergy, Unknown, 11/26/19) JANINE LOERA DIRECTORY OPERATOR Jun 09, 2020 15:16
== END 2020-06-09 16:44 | disposition home or self-care (01) | DRG 753 ==
LOC: M PSY 22:05
PROVIDERS: ADMIT Psychiatry & Neurology Psychiatry; ATTEND Psychiatry & Neurology Psychiatry
DX: F31.9 Bipolar disorder, unspecified (principal); I11.0 Hypertensive heart disease with heart failure; D69.6 Thrombocytopenia, unspecified; Z99.81 Dependence on supplemental oxygen; L03.116 Cellulitis of left lower limb; I50.32 Chronic diastolic (congestive) heart failure; R45.851 Suicidal ideations; F10.26 Alcohol dependence with alcohol-induced persisting amnestic disorder; J44.9 Chronic obstructive pulmonary disease, unspecified; F17.210 Nicotine dependence, cigarettes, uncomplicated; I25.10 Atherosclerotic heart disease of native coronary artery without angina pectoris; K21.9 Gastro-esophageal reflux disease without esophagitis; N32.81 Overactive bladder; E53.8 Deficiency of other specified B group vitamins; L29.9 Pruritus, unspecified; H10.9 Unspecified conjunctivitis; K44.9 Diaphragmatic hernia without obstruction or gangrene; Z79.899 Other long term (current) drug therapy; Z87.19 Personal history of other diseases of the digestive system; Z91.040 Latex allergy status; Z88.1 Allergy status to other antibiotic agents; Z88.8 Allergy status to other drugs, medicaments and biological substances; Z90.49 Acquired absence of other specified parts of digestive tract; Z56.0 Unemployment, unspecified

== ENCOUNTER 2020-06-19 18:57 | Emergency (ER) | payer OTHER ==
[~2020-06-19] VITALS: Ht 180.3 cm; Wt 72.7 kg
[~2020-06-19 18:57] MED LIST changes: +LAMI25TA PO
[2020-06-19 19:57] LABS: HEMATOCRIT 40.6 % (42.0-52.0); HEMOGLOBIN 13.5 g/dl (13.5-17.5); MEAN CORPUSCULAR HEMOGLOBIN 29.9 pg (27.0-33.0); MEAN CORPUSCULAR HGB CONC 33.3 g/dl (32.0-36.5); MEAN CORPUSCULAR VOLUME 89.8 fl (80.0-96.0); PLATELET COUNT, AUTOMATED 212 10^3/uL (150-450); RED BLOOD COUNT 4.52 10^6/uL (4.30-6.10); WHITE BLOOD COUNT 9.4 10^3/uL (4.0-10.0)
[2020-06-19 20:25] LABS: AMPHETAMINES LEVEL URINE NEGATIVE (NEGATIVE); BARBITURATES URINE NEGATIVE (NEGATIVE); BENZODIAZEPINES URINE NEGATIVE (NEGATIVE); CANNABINOIDS URINE NEGATIVE (NEGATIVE); COCAINE METABOLITE URINE NEGATIVE (NEGATIVE); METHADONE URINE NEGATIVE (NEGATIVE); OPIATES URINE NEGATIVE (NEGATIVE); PHENCYCLIDINE URINE NEGATIVE (NEGATIVE)
[2020-06-19 20:44] LABS: ACETAMINOPHEN LEVEL < 2.0 UG/ML (10.0-30.0); ALBUMIN 3.5 GM/DL (3.2-5.2); ALT/SGPT 27 U/L (12-78); BILIRUBIN,DIRECT 0.2 MG/DL (0.0-0.2); BILIRUBIN,TOTAL 0.4 MG/DL (0.2-1.0); BLOOD UREA NITROGEN 8 MG/DL (7-18); CALCIUM LEVEL 8.7 MG/DL (8.5-10.1); CARBON DIOXIDE LEVEL 31 MEQ/L (21-32); CHLORIDE LEVEL 103 MEQ/L (98-107); CREATININE FOR GFR 0.56 MG/DL (0.70-1.30); ETHYL ALCOHOL (ETHANOL) 0.317 % (0.000-0.010); GLOMERULAR FILTRATION RATE > 60.0 (>56); GLUCOSE, FASTING 101 MG/DL (70-100); POTASSIUM SERUM 3.7 MEQ/L (3.5-5.1); SALICYLATE LEVEL < 1.7 MG/DL (5.0-30.0); SODIUM LEVEL 140 MEQ/L (136-145); THYROID STIMULATING HORMONE 0.153 uIU/ML (0.358-3.740)
[2020-06-19] MEDS ORDERED: ALBUTEROL 90 MCG/ACT 8GM HFA INHALER INH ONE (21:20)
[2020-06-20] MEDS ORDERED: LORazepam 2 MG TAB PO PRN (03:45)
[2020-06-20] MEDS ORDERED: ONDANSETRON 4 MG ORAL DISINTEGRATING TAB PO ONE ×2 (03:45→07:40)
[2020-06-20] MEDS ORDERED: THIAMINE 100 MG TAB PO SCH (03:45)
[2020-06-20] MEDS ORDERED: FOLIC ACID 1 MG TAB PO SCH (09:00)
[2020-06-20] MEDS ORDERED: MULTIVITAMINS/MINERALS THERAP 1 TAB PO SCH (09:00)
[2020-06-20 11:06] VITALS: BP 122/55
== END 2020-06-20 11:08 | disposition home or self-care (01) ==
LOC: M ED 18:57
DX: F10.129 Alcohol abuse with intoxication, unspecified (principal); F32.9 Major depressive disorder, single episode, unspecified; I10 Essential (primary) hypertension; J44.9 Chronic obstructive pulmonary disease, unspecified; K21.9 Gastro-esophageal reflux disease without esophagitis; J30.2 Other seasonal allergic rhinitis; F17.200 Nicotine dependence, unspecified, uncomplicated; Z79.82 Long term (current) use of aspirin; Z79.899 Other long term (current) drug therapy; Z88.8 Allergy status to other drugs, medicaments and biological substances; Z88.1 Allergy status to other antibiotic agents
CPT/HCPCS: 80048; 80076; 80143; 80307; 82077; 84443; 85027; 94640; 99284; Q0162

== ENCOUNTER 2020-07-30 11:18 | Emergency (ER) | payer OTHER ==
[~2020-07-30] VITALS: Ht 180.3 cm; Wt 70.4 kg
[2020-07-30 11:42] LABS: BASO % 0.4 % (0.0-1.0); EOS # 0.2 10^3/uL (0.0-0.5); EOS % 3.5 % (0.0-3.0); HEMATOCRIT 37.2 % (42.0-52.0); HEMOGLOBIN 12.3 g/dl (13.5-17.5); LYMPH # 1.8 10^3/uL (1.5-5.0); LYMPH % 30.9 % (24.0-44.0); MEAN CORPUSCULAR HEMOGLOBIN 29.3 pg (27.0-33.0); MEAN CORPUSCULAR HGB CONC 33.1 g/dl (32.0-36.5); MEAN CORPUSCULAR VOLUME 88.6 fl (80.0-96.0); MONO # 0.6 10^3/uL (0.0-0.8); NEUTROPHILS # 3.1 10^3/uL (1.5-8.5); PLATELET COUNT, AUTOMATED 144 10^3/uL (150-450); WHITE BLOOD COUNT 5.7 10^3/uL (4.0-10.0)
--- NOTE | 2020-07-30 11:49 | REP ---
INDICATION: CHEST PAIN. COMPARISON: 05/27/2020. TECHNIQUE: Single portable AP view of the chest was performed. FINDINGS: There is no evidence of acute infiltrate. There is linear scarring again seen in the left upper lobe. There is blunting of the left costophrenic angle suggesting a small left pleural effusion. The heart is normal in size. The mediastinal silhouette is unremarkable. Visualized osseous structures are unremarkable. IMPRESSION: Small left pleural effusion suspected. <Electronically signed by Stalin Anderson > 07/30/20 [id number]
[2020-07-30] MEDS ORDERED: ONDANSETRON 4MG/2ML VIAL IV ONE (12:00)
[2020-07-30 12:16] LABS: ALBUMIN 3.4 GM/DL (3.2-5.2); ALT/SGPT 68 U/L (12-78); BILIRUBIN,DIRECT 0.2 MG/DL (0.0-0.2); BILIRUBIN,TOTAL 0.4 MG/DL (0.2-1.0); BLOOD UREA NITROGEN 7 MG/DL (7-18); CALCIUM LEVEL 8.7 MG/DL (8.5-10.1); CARBON DIOXIDE LEVEL 29 MEQ/L (21-32); CHLORIDE LEVEL 102 MEQ/L (98-107); CREATININE FOR GFR 0.44 MG/DL (0.70-1.30); GLOMERULAR FILTRATION RATE > 60.0 (>56); GLUCOSE, FASTING 100 MG/DL (70-100); LIPASE 104 U/L (73-393); NT-PRO BNP 46 PG/ML (<125); POTASSIUM SERUM 3.4 MEQ/L (3.5-5.1); SODIUM LEVEL 139 MEQ/L (136-145); THYROID STIMULATING HORMONE 0.664 uIU/ML (0.358-3.740); TOTAL PROTEIN 6.7 GM/DL (6.4-8.2)
[2020-07-30] MEDS ORDERED: POTASSIUM CHLORIDE 10 MEQ SR TABLET PO ONE (17:50)
[2020-07-30 19:18] VITALS: BP 171/90
--- NOTE | 2020-07-30 20:02 | ECGEPIP ---
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
--- NOTE | 2020-07-30 20:21 | ECGEPIP ---
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
== END 2020-07-30 19:28 | disposition home or self-care (01) ==
LOC: M ED 11:18 → EDBD 11:18 → M ED 19:28
DX: R07.9 Chest pain, unspecified (principal); R94.31 Abnormal electrocardiogram [ECG] [EKG]; I42.6 Alcoholic cardiomyopathy; I10 Essential (primary) hypertension; J45.909 Unspecified asthma, uncomplicated; J44.9 Chronic obstructive pulmonary disease, unspecified; F31.9 Bipolar disorder, unspecified; F17.200 Nicotine dependence, unspecified, uncomplicated; F10.11 Alcohol abuse, in remission; Z79.899 Other long term (current) drug therapy; Z79.82 Long term (current) use of aspirin; Z91.048 Other nonmedicinal substance allergy status; Z88.1 Allergy status to other antibiotic agents; Z91.040 Latex allergy status; Z88.8 Allergy status to other drugs, medicaments and biological substances; Z82.49 Family history of ischemic heart disease and other diseases of the circulatory system; Z90.49 Acquired absence of other specified parts of digestive tract
CPT/HCPCS: 71045; 80048; 80076; 83690; 83735; 83880; 84443; 85025; 93005; 93041; 94760; 96374; 99285; J2405

== ENCOUNTER 2020-08-27 22:00 | Emergency (ER) | payer OTHER ==
[~2020-08-27] VITALS: Ht 180.3 cm; Wt 70.4 kg
[~2020-08-27 22:00] MED LIST changes: -DOXY100C37 PO; +DOXY1CAP62 PO; +ERGO500029 PO; -VITA50005 PO
--- NOTE | 2020-08-27 23:36 | REPVR ---
PROCEDURE INFORMATION: Exam: US Duplex Lower Extremity Veins, Bilateral Exam date and time: 08/27/2020 11:16 PM Age: 55 years old Clinical indication: Edema, localized; Lower extremity, bilateral; Additional info: Swelling TECHNIQUE: Imaging protocol: Real-time duplex ultrasound of the extremities with 2-D bermudez scale, color Doppler flow and spectral waveform analysis with image documentation. Complete exam focused on the bilateral lower extremity veins. COMPARISON: US Duplex, Ext,LOWER veins,unilat 06/03/2020 5:04 PM FINDINGS: Right deep veins: Unremarkable. The common femoral, femoral, proximal profunda femoral and popliteal veins are patent without thrombus. Normal Doppler waveforms. Normal compressibility and/or augmentation response. Right superficial veins: Saphenofemoral junction is patent without thrombus. Left deep veins: Unremarkable. The common femoral, femoral, proximal profunda femoral and popliteal veins are patent without thrombus. Normal Doppler waveforms. Normal compressibility and/or augmentation response. Left superficial veins: Saphenofemoral junction is patent without thrombus. Soft tissues: There is subcutaneous edema of the lower legs. IMPRESSION: No evidence of deep vein thrombosis. Subcutaneous edema right and left lower legs. Electronically signed by: Antoine Oneal On 08/27/2020 23:35:37 PM
--- NOTE | 2020-08-27 23:38 | REPVR ---
PROCEDURE INFORMATION: Exam: XR Chest Exam date and time: 08/27/2020 11:19 PM Age: 55 years old Clinical indication: Cough and dyspnea; Additional info: Dyspnea/cough TECHNIQUE: Imaging protocol: XR of the chest. Views: 1 view. COMPARISON: IN PORTABLE CHEST X-RAY 07/30/2020 11:28 AM FINDINGS: Lungs: Unremarkable. No consolidation. Pleural spaces: Unremarkable. No pleural effusion. No pneumothorax. Heart/Mediastinum: Unremarkable. No cardiomegaly. Bones/joints: Unremarkable. IMPRESSION: No acute findings. Electronically signed by: Antione Oneal On 08/27/2020 23:38:26 PM
[2020-08-28 00:17] LABS: BASO # 0.1 10^3/uL (0.0-0.2); BASO % 0.9 % (0.0-1.0); EOS # 0.3 10^3/uL (0.0-0.5); EOS % 4.7 % (0.0-3.0); HEMATOCRIT 31.4 % (42.0-52.0); HEMOGLOBIN 10.2 g/dl (13.5-17.5); LYMPH # 1.9 10^3/uL (1.5-5.0); LYMPH % 28.4 % (24.0-44.0); MEAN CORPUSCULAR HEMOGLOBIN 30.1 pg (27.0-33.0); MEAN CORPUSCULAR HGB CONC 32.5 g/dl (32.0-36.5); MEAN CORPUSCULAR VOLUME 92.6 fl (80.0-96.0); MONO # 0.7 10^3/uL (0.0-0.8); MONO % 10.5 % (2.0-8.0); NEUTROPHILS # 3.7 10^3/uL (1.5-8.5); NEUTROPHILS % 54.6 % (36.0-66.0); PLATELET COUNT, AUTOMATED 284 10^3/uL (150-450); RED BLOOD COUNT 3.39 10^6/uL (4.30-6.10); WHITE BLOOD COUNT 6.8 10^3/uL (4.0-10.0)
[2020-08-28 00:33] LABS: ALBUMIN 3.1 GM/DL (3.2-5.2); ALT/SGPT 64 U/L (12-78); BILIRUBIN,DIRECT < 0.1 MG/DL (0.0-0.2); BILIRUBIN,TOTAL 0.2 MG/DL (0.2-1.0); BLOOD UREA NITROGEN 8 MG/DL (7-18); CALCIUM LEVEL 7.7 MG/DL (8.5-10.1); CARBON DIOXIDE LEVEL 32 MEQ/L (21-32); CHLORIDE LEVEL 106 MEQ/L (98-107); CK-MB VALUE MASS < 1.0 NG/ML (<3.6); CPK CREATINE PHOSPHOKINASE 87 U/L (39-308); CREATININE FOR GFR 0.48 MG/DL (0.70-1.30); ETHYL ALCOHOL (ETHANOL) 0.166 % (0.000-0.010); GLOMERULAR FILTRATION RATE > 60.0 (>56); GLUCOSE, FASTING 82 MG/DL (70-100); MB/CK RELATIVE INDEX 1.15 (< OR =4); NT-PRO BNP 143 PG/ML (<125); POTASSIUM SERUM 3.8 MEQ/L (3.5-5.1); SODIUM LEVEL 142 MEQ/L (136-145); TOTAL PROTEIN 6.2 GM/DL (6.4-8.2); TROPONIN I < 0.02 NG/ML (< 0.10)
[2020-08-28 00:42] LABS: ERYTHROCYTE SEDIMENTATION RATE 14 mm/hr (0-20)
[2020-08-28] MEDS ORDERED: FUROSEMIDE 40MG/4ML VIAL (J1940) IV ONE (01:20)
[2020-08-28] MEDS ORDERED: LASI40TA9 PO (03:18)
[2020-08-28 03:57] VITALS: BP 140/86
--- NOTE | 2020-08-28 05:47 | ECGEPIP ---
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
== END 2020-08-28 03:59 | disposition home or self-care (01) ==
LOC: M ED 22:00
DX: R22.43 Localized swelling, mass and lump, lower limb, bilateral (principal); I11.0 Hypertensive heart disease with heart failure; I50.9 Heart failure, unspecified; K21.9 Gastro-esophageal reflux disease without esophagitis; J44.9 Chronic obstructive pulmonary disease, unspecified; F33.9 Major depressive disorder, recurrent, unspecified; D80.4 Selective deficiency of immunoglobulin M [IgM]; F17.200 Nicotine dependence, unspecified, uncomplicated; Z79.899 Other long term (current) drug therapy; Z88.8 Allergy status to other drugs, medicaments and biological substances; Z91.048 Other nonmedicinal substance allergy status; Z88.1 Allergy status to other antibiotic agents; Z91.040 Latex allergy status
CPT/HCPCS: 71045; 80048; 80076; 82077; 82550; 82553; 83880; 84443; 85025; 85652; 86140; 87040; 93005; 93041; 93970; 94760; 96374; 99285; J1940

== ENCOUNTER 2020-09-21 13:56 | Emergency (ER) | payer OTHER ==
[~2020-09-21] VITALS: Ht 180.3 cm; Wt 65.7 kg
[~2020-09-21 13:56] MED LIST changes: +LASI40TA9 PO
--- NOTE | 2020-09-21 15:56 | REP ---
INDICATION: DYSPNEA/COUGH. COMPARISON: Comparison chest x-ray 27 August 2020. TECHNIQUE: Portable upright AP chest radiograph. FINDINGS: The lungs are hyperinflated but clear. Pleural angles are sharp. Heart size is normal. Pulmonary vasculature is not increased. No bony abnormality.. IMPRESSION: Hyperinflation. Otherwise no acute disease.. <Electronically signed by Vamsi Louis > 09/21/20 [id number]
[2020-09-21] MEDS ORDERED: NS 1,000 ML IV ONE (16:10)
[2020-09-21 17:15] LABS: BASO % 0.5 % (0.0-1.0); EOS # 0.1 10^3/uL (0.0-0.5); EOS % 1.8 % (0.0-3.0); HEMATOCRIT 42.4 % (42.0-52.0); HEMOGLOBIN 14.5 g/dl (13.5-17.5); LYMPH # 1.7 10^3/uL (1.5-5.0); LYMPH % 42.8 % (24.0-44.0); MEAN CORPUSCULAR HGB CONC 34.2 g/dl (32.0-36.5); MEAN CORPUSCULAR VOLUME 90.6 fl (80.0-96.0); MONO # 0.3 10^3/uL (0.0-0.8); MONO % 7.6 % (2.0-8.0); NEUTROPHILS # 1.9 10^3/uL (1.5-8.5); RED BLOOD COUNT 4.68 10^6/uL (4.30-6.10)
[2020-09-21] MEDS ORDERED: ISOVUE-370 76% 100ML VIAL As Ordered ONE (17:16)
[2020-09-21 17:25] LABS: RSV AMPLIFICATION NEGATIVE (NEGATIVE)
[2020-09-21 17:27] LABS: INR 0.93; PARTIAL THROMBOPLASTIN TIME 26.4 SECONDS (24.2-38.5); PROTHROMBIN TIME 12.7 SECONDS (12.5-14.3)
[2020-09-21 17:45] LABS: PLATELET COUNT, AUTOMATED 81 10^3/uL (150-450)
[2020-09-21] MEDS ORDERED: PANTOPRAZOLE 40MG VIAL (C9113 PER 1) IV ONE (18:30)
[2020-09-21] MEDS ORDERED: COMBIVENT RESPIMAT 100-20MCG INHALER 4GM INH ONE (18:50)
[2020-09-21 18:51] LABS: ALBUMIN 3.5 GM/DL (3.2-5.2); ALT/SGPT 77 U/L (12-78); BILIRUBIN,DIRECT 0.5 MG/DL (0.0-0.2); BLOOD UREA NITROGEN 8 MG/DL (7-18); CALCIUM LEVEL 8.1 MG/DL (8.5-10.1); CARBON DIOXIDE LEVEL 26 MEQ/L (21-32); CHLORIDE LEVEL 103 MEQ/L (98-107); CK-MB VALUE MASS < 1.0 NG/ML (<3.6); CPK CREATINE PHOSPHOKINASE 48 U/L (39-308); CREATININE FOR GFR 0.62 MG/DL (0.70-1.30); GLOMERULAR FILTRATION RATE > 60.0 (>56); GLUCOSE, FASTING 83 MG/DL (70-100); MB/CK RELATIVE INDEX 2.08 (< OR =4); POTASSIUM SERUM 3.4 MEQ/L (3.5-5.1); SODIUM LEVEL 141 MEQ/L (136-145); TOTAL PROTEIN 6.6 GM/DL (6.4-8.2); TROPONIN I < 0.02 NG/ML (< 0.10)
--- NOTE | 2020-09-21 18:55 | REPVR ---
PROCEDURE INFORMATION: Exam: CT Abdomen And Pelvis With Contrast Exam date and time: 09/21/2020 4:07 PM Age: 55 years old Clinical indication: Abdominal pain; Generalized; Additional info: Abd pain, jaundice, black stool TECHNIQUE: Imaging protocol: Computed tomography of the abdomen and pelvis with contrast. Radiation optimization: All CT scans at this facility use at least one of these dose optimization techniques: automated exposure control; mA and/or kV adjustment per patient size (includes targeted exams where dose is matched to clinical indication); or iterative reconstruction. Contrast material: ISOVUE 370; Contrast volume: 100 ml; Contrast route: INTRAVENOUS (IV); COMPARISON: CT ABD/PEL W/IV CONTRAST ONLY 05/21/2020 12:13 PM FINDINGS: Liver: The liver is enlarged and diffusely hypodense, consistent with hepatic steatosis. Gallbladder and bile ducts: Cholecystectomy clips are noted. Pancreas: The pancreas is normal. Spleen: The spleen is normal. Adrenal glands: The adrenal glands are normal. Kidneys and ureters: There is no evidence of hydronephrosis. There is a simple appearing 9 mm right renal cortical cyst. Stomach and bowel: The stomach is normal. There is no evidence of intestinal perforation or obstruction. Appendix: The appendix is not clearly visualized. Correlate with surgical history. There is no focal inflammatory process in the right lower quadrant to indicate acute appendicitis. Intraperitoneal space: There is no free intraperitoneal air visualized. There is no evidence of free intraperitoneal or pelvic fluid. Vasculature: Atherosclerotic vascular disease is noted. There is no evidence of an abdominal aortic aneurysm. Lymph nodes: No lymphadenopathy is seen. Urinary bladder: The bladder is normal. Reproductive: The prostate gland measures 4.1 cm in diameter. Bones/joints: Unremarkable. No acute fracture. IMPRESSION: Hepatomegaly, with hepatic steatosis. COMMENTS: Consistent with the [employer]'s Incidental Findings Committee white paper (J Am Maribel Radiol 2018): Any incidental renal lesion less than 1 cm or classified as too small to characterize, or any incidental cystic renal lesion characterized as simple-appearing, is likely benign. No follow-up imaging is recommended for these lesions per consensus recommendations based on imaging criteria. Electronically signed by: Jihan Chi On 09/21/2020 18:54:38 PM
[2020-09-21 19:20] LABS: LIPASE 161 U/L (73-393)
[2020-09-21 19:59] LABS: APPEARANCE, URINE CLOUDY (CLEAR); BACTERIA, URINE AUTO NEGATIVE (NEGATIVE); BILIRUBIN, URINE AUTO NEGATIVE (NEGATIVE); BLOOD, URINE BLOOD NEGATIVE (NEGATIVE); COLOR, URINE AMBER (YELLOW); GLUCOSE, URINE (UA) AUTO NEGATIVE (NEGATIVE); KETONE, URINE AUTO 2+ mg/dL (NEGATIVE); LEUKOCYTE ESTERASE, URINE AUTO NEGATIVE (NEGATIVE); MUCUS, URINE SMALL (NEGATIVE); NITRITE, URINE AUTO NEGATIVE (NEGATIVE); PROTEIN, URINE AUTO 2+ mg/dL (NEGATIVE); RBC, URINE AUTO 1 /HPF (0-3); SPECIFIC GRAVITY URINE AUTO 1.045 (1.002-1.035); SQUAMOUS EPITHELIAL CELL UR AU 0 /HPF (0-6); WBC, URINE AUTO 1 /HPF (0-3)
[2020-09-21] MEDS ORDERED: PEPC1TAB5 PO (20:15)
[2020-09-21] MEDS ORDERED: CARA1TAB6 PO (20:15)
[2020-09-21] MEDS ORDERED: ADV500INH INH (20:15)
[2020-09-21 20:30] VITALS: BP 171/82
--- NOTE | 2020-09-21 20:41 | ECGEPIP ---
[facility] - ED Test Date: 2020-09-21 Pat Name: GORDON SERNA Department: Room: - Gender: Male [employer]: : 1965 Requested By: DI BRADFORD PA-C. Order Number: [id number] Reading MD: Esther Harvey Measurements Intervals [place] Rate: 80 P: 63 ID: [id number] QRS: 65 QRSD: 80 T: 74 QT: 390 QTc: 449 Interpretive Statements Normal sinus rhythm Anteroseptal infarct , age undetermined similar 08/27/20 Electronically Signed on 09-21-2020 20:41:19 EDT by Esther Harvey
== END 2020-09-21 20:43 | disposition home or self-care (01) ==
LOC: M ED 13:56
DX: K29.20 Alcoholic gastritis without bleeding (principal); E86.0 Dehydration; J44.9 Chronic obstructive pulmonary disease, unspecified; D69.6 Thrombocytopenia, unspecified; K21.9 Gastro-esophageal reflux disease without esophagitis; G62.9 Polyneuropathy, unspecified; R16.0 Hepatomegaly, not elsewhere classified; K76.0 Fatty (change of) liver, not elsewhere classified; J30.2 Other seasonal allergic rhinitis; Z79.82 Long term (current) use of aspirin; Z79.899 Other long term (current) drug therapy; Z91.040 Latex allergy status; Z88.1 Allergy status to other antibiotic agents; Z88.8 Allergy status to other drugs, medicaments and biological substances
CPT/HCPCS: 71045; 74177; 80047; 80048; 80076; 81001; 82550; 82553; 83690; 85025; 85049; 85055; 85610; 85730; 87631; 93005; 93041; 94760; 99284; C9113; Q9967

== ENCOUNTER 2021-03-03 12:05 | Emergency (ER) | payer OTHER ==
[~2021-03-03] VITALS: Ht 172.7 cm; Wt 85.0 kg
[~2021-03-03 12:05] MED LIST changes: +CARA1TAB6 PO; -CEFD1CAP8 PO; +CEFD300C41 PO; -CITA40TA4 PO; +CITA40TA7 PO; +DOXY-443 PO; -DOXY1CAP62 PO; +LOSA25TA13 PO; -LOSA25TA14 PO; +LOSA50TA28 PO; -LOSA50TA88 PO; +PEPC1TAB5 PO
[2021-03-03] MEDS ORDERED: methylPREDNISolone 125MG 2ML VIAL IV ONE (12:25)
[2021-03-03] MEDS ORDERED: COMBIVENT RESPIMAT 100-20MCG INHALER 4GM INH ONE (12:25)
[2021-03-03 13:14] LABS: BASO % 0.3 % (0.0-1.0); EOS # 0.3 10^3/uL (0.0-0.5); EOS % 3.7 % (0.0-3.0); HEMATOCRIT 38.2 % (42.0-52.0); LYMPH # 1.7 10^3/uL (1.5-5.0); LYMPH % 23.5 % (24.0-44.0); MEAN CORPUSCULAR HEMOGLOBIN 30.2 pg (27.0-33.0); MEAN CORPUSCULAR VOLUME 88.6 fl (80.0-96.0); MONO # 0.6 10^3/uL (0.0-0.8); MONO % 7.8 % (2.0-8.0); NEUTROPHILS # 4.7 10^3/uL (1.5-8.5); NEUTROPHILS % 64.4 % (36.0-66.0); PLATELET COUNT, AUTOMATED 104 10^3/uL (150-450); RED BLOOD COUNT 4.31 10^6/uL (4.30-6.10); WHITE BLOOD COUNT 7.3 10^3/uL (4.0-10.0)
[2021-03-03 13:54] LABS: ALBUMIN 3.7 GM/DL (3.2-5.2); ALT/SGPT 49 U/L (12-78); BILIRUBIN,DIRECT 0.2 MG/DL (0.0-0.2); BILIRUBIN,TOTAL 0.6 MG/DL (0.2-1.0); BLOOD UREA NITROGEN 12 MG/DL (7-18); CARBON DIOXIDE LEVEL 29 MEQ/L (21-32); CHLORIDE LEVEL 97 MEQ/L (98-107); CREATININE FOR GFR 0.88 MG/DL (0.70-1.30); FREE T4 1.24 NG/DL (0.76-1.46); GLOMERULAR FILTRATION RATE > 60.0 (>56); GLUCOSE, FASTING 119 MG/DL (70-100); NT-PRO BNP 60 PG/ML (<125); POTASSIUM SERUM 4.2 MEQ/L (3.5-5.1); SODIUM LEVEL 133 MEQ/L (136-145); TOTAL PROTEIN 7.1 GM/DL (6.4-8.2)
[2021-03-03 16:15] VITALS: BP 120/72
[2021-03-03] MEDS ORDERED: PRED20TA PO (16:57)
== END 2021-03-03 17:05 | disposition home or self-care (01) ==
LOC: M ED 12:05 → EDBD 12:05 → M ED 17:05
DX: J44.1 Chronic obstructive pulmonary disease with (acute) exacerbation (principal); I10 Essential (primary) hypertension; K21.9 Gastro-esophageal reflux disease without esophagitis; F10.10 Alcohol abuse, uncomplicated; F32.A Depression, unspecified; F41.9 Anxiety disorder, unspecified; F17.200 Nicotine dependence, unspecified, uncomplicated; Z79.51 Long term (current) use of inhaled steroids; Z79.82 Long term (current) use of aspirin; Z79.899 Other long term (current) drug therapy
CPT/HCPCS: 71045; 80048; 80076; 83880; 84439; 84443; 85025; 87798; 93005; 93041; 94640; 94760; 96374; 99285; J2930

== ENCOUNTER 2021-08-08 11:33 | Inpatient (IN) | payer OTHER ==
[~2021-08-08] VITALS: Ht 180.3 cm; Wt 70.5 kg
[~2021-08-08 11:33] MED LIST changes: +ALBU2.5V10 INH; -ALBU83IN INH; -MOME50SP; +NASO50SP3; -OLOP0.1D OU; +OLOP5DRO16 OU
[2021-08-08] MEDS ORDERED: methylPREDNISolone 125MG 2ML VIAL IV ONE (12:45)
[2021-08-08] MEDS: IPRATROPIUM 0.5MG/ALBUTEROL 2.5MG INH SOL UD 3ML (DUONEB) NEB PRN ×2 (12:52→13:03)
[2021-08-08] MEDS ORDERED: FUROSEMIDE 40MG/4ML VIAL (J1940) IV ONE (13:00)
[2021-08-08 13:04] LABS: BASO # 0.1 10^3/uL (0.0-0.2); BASO % 0.6 % (0.0-1.0); EOS # 0.3 10^3/uL (0.0-0.5); EOS % 3.3 % (0.0-3.0); HEMATOCRIT 39.2 % (42.0-52.0); HEMOGLOBIN 13.1 g/dl (13.5-17.5); LYMPH % 12.8 % (24.0-44.0); MEAN CORPUSCULAR HGB CONC 33.4 g/dl (32.0-36.5); MEAN CORPUSCULAR VOLUME 89.7 fl (80.0-96.0); MONO % 12.2 % (2.0-8.0); NEUTROPHILS # 5.8 10^3/uL (1.5-8.5); NEUTROPHILS % 70.9 % (36.0-66.0); PLATELET COUNT, AUTOMATED 218 10^3/uL (150-450); RED BLOOD COUNT 4.37 10^6/uL (4.30-6.10); WHITE BLOOD COUNT 8.1 10^3/uL (4.0-10.0)
[2021-08-08 13:04] LABS: ABG BASE EXCESS 0.3 (-2.0-2.0); ABG HCO3 25.3 MEQ/L (22.0-26.0); ABG O2 SATURATION 93.9 % (95.0-99.0); ABG PARTIAL PRESSURE CO2 41.8 mmHg (35.0-45.0); ABG PARTIAL PRESSURE O2 65.8 mmHg (75.0-100.0); ABG STANDARD HCO3 24.7 MEQ/L (22.0-26.0); ABG TOTAL CO2 26.5 MEQ/L (22.0-29.0); ABG pH (ARTERIAL) 7.399 UNITS (7.350-7.450)
[2021-08-08 14:08] LABS: ALBUMIN 3.3 GM/DL (3.2-5.2); ALT/SGPT 10 U/L (12-78); BILIRUBIN,DIRECT 0.1 MG/DL (0.0-0.2); BILIRUBIN,TOTAL 0.9 MG/DL (0.2-1.0); BLOOD UREA NITROGEN 10 MG/DL (7-18); CALCIUM LEVEL 8.2 MG/DL (8.5-10.1); CARBON DIOXIDE LEVEL 25 MEQ/L (21-32); CHLORIDE LEVEL 104 MEQ/L (98-107); CREATININE FOR GFR 0.74 MG/DL (0.70-1.30); GLOMERULAR FILTRATION RATE > 60.0 (>56); GLUCOSE, FASTING 82 MG/DL (70-100); SODIUM LEVEL 137 MEQ/L (136-145)
[2021-08-08] MEDS ORDERED: MED REC COMMENT (14:14)
[2021-08-08] MEDS ORDERED: HOME MED LIST COMPLETE! XX SCH (14:15)
[2021-08-08] MEDS ORDERED: ISOVUE-370 76% 100ML VIAL As Ordered ONE (14:18)
[2021-08-08] MEDS ORDERED: MOM 30ML SUSPENSION UDC PO PRN (15:50)
[2021-08-08] MEDS ORDERED: ACETAMINOPHEN TAB 650MG DOSE (2X325MG) PO PRN (15:50)
[2021-08-08] MEDS ORDERED: ALBUTEROL SULFATE 2.5 MG/0.5 ML INH NEB SOLN NEB PRN (15:50)
[2021-08-08] MEDS: PANTOPRAZOLE 40MG TAB (PROTONIX) PO SCH (16:59)
[2021-08-08] MEDS: NICOTINE 21MG/24HR 1 EA TRANSDERMAL TD SCH (16:59)
[2021-08-08] MEDS: BENZONATATE 100MG CAPSULE PO SCH ×2 (17:49→21:54)
[2021-08-08] MEDS ORDERED: LevoFLOXacin 750 MG TABLET PO SCH (18:00)
[2021-08-08 18:30] VITALS: BP 142/91
[2021-08-08 18:32] VITALS: BP 148/78
[2021-08-08] MEDS: ADVAIR HFA 230/21MCG INHALER INH SCH (19:12)
[2021-08-08] MEDS: IPRATROPIUM 0.5MG/ALBUTEROL 2.5MG INH SOL UD 3ML (DUONEB) NEB SCH (19:12)
[2021-08-08 20:48] VITALS: O2SAT 91
[2021-08-08] MEDS: methylPREDNISolone 125MG 2ML VIAL IV SCH (21:53)
[2021-08-08] MEDS: ENOXAPARIN 40MG/0.4ML SYRINGE (J1650 PER 10MG) SC SCH (21:54)
[2021-08-08] MEDS: guaiFENesin ER 600 MG TAB PO SCH (21:54)
[2021-08-08 22:00] VITALS: BP 138/89
[2021-08-08 22:29] VITALS: BP 138/89
[2021-08-09] VITALS (7 sets, daily range): BP systolic 122–134; BP diastolic 71–85
[2021-08-09] MEDS: IPRATROPIUM 0.5MG/ALBUTEROL 2.5MG INH SOL UD 3ML (DUONEB) NEB SCH ×4 (02:46→19:43)
[2021-08-09] MEDS: methylPREDNISolone 125MG 2ML VIAL IV SCH ×3 (05:00→21:22)
[2021-08-09 06:10] LABS: HEMATOCRIT 39.3 % (42.0-52.0); HEMOGLOBIN 12.9 g/dl (13.5-17.5); MEAN CORPUSCULAR HEMOGLOBIN 29.7 pg (27.0-33.0); MEAN CORPUSCULAR HGB CONC 32.8 g/dl (32.0-36.5); MEAN CORPUSCULAR VOLUME 90.6 fl (80.0-96.0); PLATELET COUNT, AUTOMATED 223 10^3/uL (150-450); RED BLOOD COUNT 4.34 10^6/uL (4.30-6.10); WHITE BLOOD COUNT 5.3 10^3/uL (4.0-10.0)
[2021-08-09 06:40] LABS: BLOOD UREA NITROGEN 22 MG/DL (7-18); CALCIUM LEVEL 8.7 MG/DL (8.5-10.1); CARBON DIOXIDE LEVEL 31 MEQ/L (21-32); CHLORIDE LEVEL 104 MEQ/L (98-107); CREATININE FOR GFR 0.97 MG/DL (0.70-1.30); GLOMERULAR FILTRATION RATE > 60.0 (>56); GLUCOSE, FASTING 168 MG/DL (70-100); MAGNESIUM LEVEL 2.4 MG/DL (1.8-2.4); POTASSIUM SERUM 4.5 MEQ/L (3.5-5.1); SODIUM LEVEL 141 MEQ/L (136-145)
[2021-08-09] MEDS: ADVAIR HFA 230/21MCG INHALER INH SCH ×2 (07:47→19:43)
[2021-08-09] MEDS: PANTOPRAZOLE 40MG TAB (PROTONIX) PO SCH (08:53)
[2021-08-09] MEDS: guaiFENesin ER 600 MG TAB PO SCH ×2 (08:53→21:22)
[2021-08-09] MEDS ORDERED: ATOR1TAB19 PO (08:54)
[2021-08-09] MEDS ORDERED: FAMO20TA PO (08:54)
[2021-08-09] MEDS ORDERED: LEVOTAB10 PO (08:54)
[2021-08-09] MEDS ORDERED: ALBU8.5H INH (08:54)
[2021-08-09] MEDS ORDERED: PANT40TA29 PO (08:54)
[2021-08-09] MEDS ORDERED: ASPI81TA26 PO (08:54)
[2021-08-09] MEDS ORDERED: LAMO25TA4 PO (08:54)
[2021-08-09] MEDS ORDERED: FURO40TA2 PO (08:54)
[2021-08-09] MEDS ORDERED: POLY1.4S OU (08:54)
[2021-08-09] MEDS ORDERED: VITMTA PO (08:54)
[2021-08-09] MEDS ORDERED: MUCI600T31 PO (08:54)
[2021-08-09] MEDS ORDERED: AMLO1TAB24 PO (08:54)
[2021-08-09] MEDS ORDERED: MONT10TA97 PO (08:54)
[2021-08-09] MEDS ORDERED: CITA40TA7 PO (08:54)
[2021-08-09] MEDS ORDERED: FOLI1TAB11 PO (08:54)
[2021-08-09] MEDS: BENZONATATE 100MG CAPSULE PO SCH ×4 (08:54→21:22)
[2021-08-09] MEDS ORDERED: OXYB5TAB10 PO (08:54)
[2021-08-09] MEDS ORDERED: BUSP15TA47 PO (08:54)
[2021-08-09] MEDS ORDERED: MAGN400T35 PO (08:54)
[2021-08-09] MEDS ORDERED: TRAZ-252 PO (08:54)
[2021-08-09] MEDS ORDERED: EPIN0.3I11 INJ (08:54)
[2021-08-09] MEDS ORDERED: B-12100021 PO (08:54)
[2021-08-09] MEDS ORDERED: GABA-1171 PO (08:54)
[2021-08-09] MEDS ORDERED: ADV500INH INH (08:54)
[2021-08-09] MEDS ORDERED: THIA100T7 PO (08:54)
[2021-08-09] MEDS ORDERED: HOME MED LIST COMPLETE! XX SCH (08:55)
[2021-08-09] MEDS: NICOTINE 21MG/24HR 1 EA TRANSDERMAL TD SCH (08:55)
[2021-08-09] MEDS: ASPIRIN 81 MG CHEW TABLET PO SCH (10:03)
[2021-08-09] MEDS: CYANOCOBALAMIN 500 MCG TAB PO SCH (10:03)
[2021-08-09] MEDS: ATORVASTATIN 10 MG TAB PO SCH (10:03)
[2021-08-09] MEDS: amLODIPine 5 MG TAB PO SCH (10:04)
[2021-08-09] MEDS: GABAPENTIN 100 MG CAP PO SCH ×2 (10:04→21:21)
[2021-08-09] MEDS: CitaloPRAM (CeleXA) 20 MG TAB PO SCH (10:04)
[2021-08-09] MEDS: FOLIC ACID 1 MG TAB PO SCH (10:04)
[2021-08-09] MEDS: FUROSEMIDE 40 MG TAB PO SCH (10:05)
[2021-08-09] MEDS: oxyBUTYnin *DITROPAN XL* 5 MG TABCR PO SCH (10:08)
[2021-08-09] MEDS: MONTELUKAST 10 MG TAB PO SCH (10:08)
[2021-08-09] MEDS: busPIRone 5 MG TAB PO SCH ×2 (10:08→21:22)
[2021-08-09] MEDS: THIAMINE 100 MG TAB PO SCH (10:08)
[2021-08-09] MEDS: lamoTRIgine 25MG TAB PO SCH (10:52)
[2021-08-09] MEDS ORDERED: traZODone 50 MG TAB PO PRN (20:35)
[2021-08-09] MEDS: ENOXAPARIN 40MG/0.4ML SYRINGE (J1650 PER 10MG) SC SCH (21:21)
[2021-08-09] MEDS ORDERED: NICOTINE 21MG/24HR 1 EA TRANSDERMAL TD ONE (21:35)
[2021-08-10] VITALS (9 sets, daily range): BP systolic 113–136; BP diastolic 61–82; O2SAT 92–94
[2021-08-10] MEDS: IPRATROPIUM 0.5MG/ALBUTEROL 2.5MG INH SOL UD 3ML (DUONEB) NEB SCH ×4 (02:43→19:24)
[2021-08-10] MEDS: methylPREDNISolone 125MG 2ML VIAL IV SCH ×2 (05:41→16:53)
[2021-08-10 06:10] LABS: HEMOGLOBIN 11.7 g/dl (13.5-17.5); MEAN CORPUSCULAR HEMOGLOBIN 29.1 pg (27.0-33.0); MEAN CORPUSCULAR HGB CONC 32.5 g/dl (32.0-36.5); MEAN CORPUSCULAR VOLUME 89.6 fl (80.0-96.0); PLATELET COUNT, AUTOMATED 240 10^3/uL (150-450); RED BLOOD COUNT 4.02 10^6/uL (4.30-6.10); WHITE BLOOD COUNT 11.4 10^3/uL (4.0-10.0)
[2021-08-10 06:34] LABS: BLOOD UREA NITROGEN 26 MG/DL (7-18); CALCIUM LEVEL 8.4 MG/DL (8.5-10.1); CARBON DIOXIDE LEVEL 27 MEQ/L (21-32); CHLORIDE LEVEL 110 MEQ/L (98-107); CREATININE FOR GFR 0.84 MG/DL (0.70-1.30); GLOMERULAR FILTRATION RATE > 60.0 (>56); GLUCOSE, FASTING 195 MG/DL (70-100); POTASSIUM SERUM 4.2 MEQ/L (3.5-5.1); SODIUM LEVEL 141 MEQ/L (136-145)
[2021-08-10] MEDS: ADVAIR HFA 230/21MCG INHALER INH SCH ×2 (07:44→19:24)
[2021-08-10] MEDS: ASPIRIN 81 MG CHEW TABLET PO SCH (08:43)
[2021-08-10] MEDS: THIAMINE 100 MG TAB PO SCH (08:43)
[2021-08-10] MEDS: guaiFENesin ER 600 MG TAB PO SCH ×2 (08:44→21:00)
[2021-08-10] MEDS: FOLIC ACID 1 MG TAB PO SCH (08:44)
[2021-08-10] MEDS: lamoTRIgine 25MG TAB PO SCH (08:44)
[2021-08-10] MEDS: GABAPENTIN 100 MG CAP PO SCH ×2 (08:44→21:01)
[2021-08-10] MEDS: oxyBUTYnin *DITROPAN XL* 5 MG TABCR PO SCH (08:44)
[2021-08-10] MEDS: CitaloPRAM (CeleXA) 20 MG TAB PO SCH (08:44)
[2021-08-10] MEDS: busPIRone 5 MG TAB PO SCH ×2 (08:44→21:00)
[2021-08-10] MEDS: CYANOCOBALAMIN 500 MCG TAB PO SCH (08:44)
[2021-08-10] MEDS: ATORVASTATIN 10 MG TAB PO SCH (08:44)
[2021-08-10] MEDS: MONTELUKAST 10 MG TAB PO SCH (08:44)
[2021-08-10] MEDS: PANTOPRAZOLE 40MG TAB (PROTONIX) PO SCH (08:44)
[2021-08-10] MEDS: NICOTINE 21MG/24HR 1 EA TRANSDERMAL TD SCH (08:45)
[2021-08-10] MEDS: BENZONATATE 100MG CAPSULE PO SCH ×3 (08:45→21:00)
[2021-08-10] MEDS: amLODIPine 5 MG TAB PO SCH (08:47)
[2021-08-10] MEDS: FUROSEMIDE 40 MG TAB PO SCH (08:48)
[2021-08-10] MEDS ORDERED: PRED20TA PO (10:55)
[2021-08-10] MEDS ORDERED: BENZ-18 PO (10:55)
[2021-08-10] MEDS ORDERED: ALBU2.5V10 NEB (10:55)
[2021-08-10] MEDS: ENOXAPARIN 40MG/0.4ML SYRINGE (J1650 PER 10MG) SC SCH (21:00)
[2021-08-11 02:00] VITALS: BP 145/71
[2021-08-11] MEDS: IPRATROPIUM 0.5MG/ALBUTEROL 2.5MG INH SOL UD 3ML (DUONEB) NEB SCH ×2 (02:00→07:35)
[2021-08-11] MEDS: methylPREDNISolone 125MG 2ML VIAL IV SCH (05:44)
[2021-08-11 06:00] VITALS: BP 144/78
[2021-08-11 06:30] LABS: HEMATOCRIT 37.4 % (42.0-52.0); HEMOGLOBIN 11.9 g/dl (13.5-17.5); MEAN CORPUSCULAR HEMOGLOBIN 28.5 pg (27.0-33.0); MEAN CORPUSCULAR HGB CONC 31.8 g/dl (32.0-36.5); MEAN CORPUSCULAR VOLUME 89.7 fl (80.0-96.0); PLATELET COUNT, AUTOMATED 243 10^3/uL (150-450); RED BLOOD COUNT 4.17 10^6/uL (4.30-6.10); WHITE BLOOD COUNT 11.8 10^3/uL (4.0-10.0)
[2021-08-11 07:17] LABS: BLOOD UREA NITROGEN 19 MG/DL (7-18); CALCIUM LEVEL 8.7 MG/DL (8.5-10.1); CARBON DIOXIDE LEVEL 28 MEQ/L (21-32); CHLORIDE LEVEL 108 MEQ/L (98-107); CREATININE FOR GFR 0.63 MG/DL (0.70-1.30); GLOMERULAR FILTRATION RATE > 60.0 (>56); GLUCOSE, FASTING 110 MG/DL (70-100); POTASSIUM SERUM 4.5 MEQ/L (3.5-5.1); SODIUM LEVEL 142 MEQ/L (136-145)
[2021-08-11] MEDS: ADVAIR HFA 230/21MCG INHALER INH SCH (07:35)
[2021-08-11] MEDS ORDERED: LEVO500T4 PO (08:21)
[2021-08-11 08:31] VITALS: BP 144/78
[2021-08-11] MEDS: CYANOCOBALAMIN 500 MCG TAB PO SCH (08:31)
[2021-08-11] MEDS: MONTELUKAST 10 MG TAB PO SCH (08:31)
[2021-08-11] MEDS: amLODIPine 5 MG TAB PO SCH (08:31)
[2021-08-11] MEDS: oxyBUTYnin *DITROPAN XL* 5 MG TABCR PO SCH (08:31)
[2021-08-11] MEDS: busPIRone 5 MG TAB PO SCH (08:31)
[2021-08-11] MEDS: PANTOPRAZOLE 40MG TAB (PROTONIX) PO SCH (08:32)
[2021-08-11] MEDS: GABAPENTIN 100 MG CAP PO SCH (08:32)
[2021-08-11] MEDS: BENZONATATE 100MG CAPSULE PO SCH (08:32)
[2021-08-11] MEDS: ATORVASTATIN 10 MG TAB PO SCH (08:32)
[2021-08-11] MEDS: FUROSEMIDE 40 MG TAB PO SCH (08:32)
[2021-08-11] MEDS: guaiFENesin ER 600 MG TAB PO SCH (08:32)
[2021-08-11] MEDS: ASPIRIN 81 MG CHEW TABLET PO SCH (08:32)
[2021-08-11] MEDS: CitaloPRAM (CeleXA) 20 MG TAB PO SCH (08:32)
[2021-08-11] MEDS: FOLIC ACID 1 MG TAB PO SCH (08:33)
[2021-08-11] MEDS: lamoTRIgine 25MG TAB PO SCH (08:33)
[2021-08-11] MEDS: NICOTINE 21MG/24HR 1 EA TRANSDERMAL TD SCH (08:33)
[2021-08-11] MEDS: THIAMINE 100 MG TAB PO SCH (08:33)
[2021-08-11 16:08] LABS: BODY FLUID CULTURE Not indicated. (.); LEGIONELLA ANTIGEN URINE Negative (Negative); ORGANISM ID Not indicated. (.); SPECIMEN SOURCE Urine (.); URINE STREP PNEUMONIAE ANTIGEN Negative (Negative)
[2021-08-13] MEDS ORDERED: PROB1CAP10 PO (12:03)
[2021-08-13] MEDS ORDERED: BACT800T5 PO (12:03)
== END 2021-08-11 11:28 | disposition home or self-care (01) | DRG 140 ==
LOC: EDBD 11:33 → M ED 11:33 → M ED INP 15:48 → ENRESERV 17:29 → M MSPAV 18:24
PROVIDERS: ADMIT Internal Medicine; ATTEND Internal Medicine
DX: J44.1 Chronic obstructive pulmonary disease with (acute) exacerbation (principal); J96.11 Chronic respiratory failure with hypoxia; J18.9 Pneumonia, unspecified organism; I11.0 Hypertensive heart disease with heart failure; I50.32 Chronic diastolic (congestive) heart failure; D69.6 Thrombocytopenia, unspecified; F10.20 Alcohol dependence, uncomplicated; J45.909 Unspecified asthma, uncomplicated; F17.200 Nicotine dependence, unspecified, uncomplicated; F32.9 Major depressive disorder, single episode, unspecified; F41.1 Generalized anxiety disorder; E53.8 Deficiency of other specified B group vitamins; L29.9 Pruritus, unspecified; N32.81 Overactive bladder; B97.89 Other viral agents as the cause of diseases classified elsewhere; R91.8 Other nonspecific abnormal finding of lung field; J44.0 Chronic obstructive pulmonary disease with (acute) lower respiratory infection; Z91.19 Patient's noncompliance with other medical treatment and regimen; Z99.81 Dependence on supplemental oxygen

== ENCOUNTER 2021-09-29 23:46 | Emergency (ER) | payer OTHER ==
[~2021-09-29] VITALS: Ht 180.3 cm; Wt 72.7 kg
[~2021-09-29 23:46] MED LIST changes: +ALBU2.5V10 NEB; +ALBU8.5H INH; +B-12100021 PO; +BENZ-18 PO; +FAMO20TA PO; +FURO40TA2 PO; +LAMO25TA4 PO; +LEVO1TAB39 PO; +MED REC COMMENT; +MONT10TA97 PO; +OXYB5TAB10 PO; +POLY1.4S OU; +PROB1CAP10 PO; +THIA100T7 PO
[2021-09-30 04:33] VITALS: BP 160/93
== END 2021-09-30 06:14 | disposition left against medical advice (07) ==
LOC: M ED 23:46 → EDBD 23:46 → M ED 09-30 06:14
DX: Z53.21 Procedure and treatment not carried out due to patient leaving prior to being seen by health care provider (principal)

== ENCOUNTER 2021-12-03 12:47 | Emergency (ER) | payer OTHER ==
[~2021-12-03] VITALS: Ht 180.3 cm; Wt 73.8 kg
[2021-12-03] MEDS ORDERED: methylPREDNISolone 125MG 2ML VIAL IM ONE (16:55)
[2021-12-03] MEDS ORDERED: PRED20TA PO (17:17)
[2021-12-03] MEDS ORDERED: CIPR3OPO OP (17:19)
[2021-12-03 17:31] VITALS: BP 132/74
[2021-12-04] MEDS ORDERED: ALAW0.02 OP (08:40)
== END 2021-12-03 17:32 | disposition home or self-care (01) ==
LOC: M ED 12:47
DX: L50.9 Urticaria, unspecified (principal); I25.10 Atherosclerotic heart disease of native coronary artery without angina pectoris; J44.9 Chronic obstructive pulmonary disease, unspecified; Z99.81 Dependence on supplemental oxygen; F17.200 Nicotine dependence, unspecified, uncomplicated; J30.9 Allergic rhinitis, unspecified; F12.10 Cannabis abuse, uncomplicated; Z98.61 Coronary angioplasty status; Z79.82 Long term (current) use of aspirin; Z79.899 Other long term (current) drug therapy; Z88.8 Allergy status to other drugs, medicaments and biological substances; Z88.1 Allergy status to other antibiotic agents; Z91.040 Latex allergy status
CPT/HCPCS: 96372; 99283; J2930

== ENCOUNTER 2021-12-07 21:41 | Emergency (ER) | payer OTHER ==
[~2021-12-07] VITALS: Ht 180.3 cm; Wt 72.7 kg
[~2021-12-07 21:41] MED LIST changes: +ALAW0.02 OP; +CIPR3OPO OP
[2021-12-07] MEDS ORDERED: methylPREDNISolone 125MG 2ML VIAL IM ONE (23:05)
[2021-12-07] MEDS ORDERED: hydrOXYzine 50 MG TAB PO ONE (23:05)
[2021-12-07] MEDS ORDERED: CERA453C2 TP (23:11)
[2021-12-07] MEDS ORDERED: CLOB5CR TOP (23:14)
[2021-12-07] MEDS ORDERED: HYDR-3363 PO (23:15)
[2021-12-07 23:36] VITALS: BP 145/90
== END 2021-12-08 00:01 | disposition home or self-care (01) ==
LOC: M ED 21:41 → EDBD 21:41 → M ED 12-08 00:01
DX: L20.9 Atopic dermatitis, unspecified (principal); Z79.82 Long term (current) use of aspirin; Z79.899 Other long term (current) drug therapy; Z88.8 Allergy status to other drugs, medicaments and biological substances; Z88.1 Allergy status to other antibiotic agents; Z91.040 Latex allergy status; J30.81 Allergic rhinitis due to animal (cat) (dog) hair and dander; J30.2 Other seasonal allergic rhinitis; J30.89 Other allergic rhinitis
CPT/HCPCS: 96372; 99284; J2930

== ENCOUNTER 2021-12-13 06:45 | Emergency (ER) | payer OTHER ==
[~2021-12-13] VITALS: Ht 180.3 cm; Wt 72.7 kg
[~2021-12-13 06:45] MED LIST changes: +CERA453C2 TP; +CLOB5CR TOP
[2021-12-13] MEDS ORDERED: hydrOXYzine 50 MG TAB PO STA (08:24)
[2021-12-13] MEDS ORDERED: methylPREDNISolone 125MG 2ML VIAL IM ONE (08:25)
[2021-12-13] MEDS ORDERED: HYDR-643 PO (08:27)
[2021-12-13] MEDS ORDERED: CLOB0.0526 TOP (08:28)
[2021-12-13 08:50] VITALS: BP 112/80
== END 2021-12-13 08:59 | disposition home or self-care (01) ==
LOC: M ED 06:45
DX: L30.9 Dermatitis, unspecified (principal); J44.9 Chronic obstructive pulmonary disease, unspecified; I10 Essential (primary) hypertension; K76.9 Liver disease, unspecified; F10.10 Alcohol abuse, uncomplicated; F17.200 Nicotine dependence, unspecified, uncomplicated; F32.A Depression, unspecified; Z99.81 Dependence on supplemental oxygen; Z88.8 Allergy status to other drugs, medicaments and biological substances; Z91.040 Latex allergy status; J30.2 Other seasonal allergic rhinitis; Z91.09 Other allergy status, other than to drugs and biological substances; Z79.899 Other long term (current) drug therapy; Z79.82 Long term (current) use of aspirin; Z79.51 Long term (current) use of inhaled steroids
CPT/HCPCS: 96372; 99283; J2930

== ENCOUNTER 2022-07-11 10:01 | Emergency (ER) | payer OTHER ==
[~2022-07-11] VITALS: Ht 177.8 cm; Wt 77.8 kg
[~2022-07-11 10:01] MED LIST changes: +ARTIDRO4 OU; +CLOB0.0526 TOP; -COZA50TA PO; -DOXY-350 PO; +DOXY-444 PO; +HYDR-643 PO; +LOSA-528 PO; +MONT-5 PO; -OLOP5DRO16 OU; +OLOP5DRO17 OU; -POLYOPD OU; -SING10TA32 PO
[2022-07-11 12:44] LABS: BASO # 0.1 10^3/uL (0.0-0.2); BASO % 0.6 % (0.0-1.0); EOS % 11.5 % (0.0-3.0); HEMATOCRIT 42.4 % (42.0-52.0); HEMOGLOBIN 13.6 g/dl (13.5-17.5); LYMPH # 1.4 10^3/uL (1.5-5.0); LYMPH % 16.8 % (24.0-44.0); MEAN CORPUSCULAR HEMOGLOBIN 28.5 pg (27.0-33.0); MEAN CORPUSCULAR HGB CONC 32.1 g/dl (32.0-36.5); MEAN CORPUSCULAR VOLUME 88.9 fl (80.0-96.0); MONO # 0.9 10^3/uL (0.0-0.8); MONO % 10.5 % (2.0-8.0); NEUTROPHILS % 60.5 % (36.0-66.0); PLATELET COUNT, AUTOMATED 284 10^3/uL (150-450); RED BLOOD COUNT 4.77 10^6/uL (4.30-6.10); WHITE BLOOD COUNT 8.3 10^3/uL (4.0-10.0)
[2022-07-11 12:58] LABS: ERYTHROCYTE SEDIMENTATION RATE 51 mm/hr (0-20)
[2022-07-11 13:06] LABS: BLOOD UREA NITROGEN 8 MG/DL (9-23); CARBON DIOXIDE LEVEL 28 MMOL/L (20-31); CHLORIDE LEVEL 103 MMOL/L (98-107); CREATININE FOR GFR 0.59 MG/DL (0.70-1.30); GLOMERULAR FILTRATION RATE > 60.0 (>56); GLUCOSE, FASTING 94 MG/DL (60-100); POTASSIUM SERUM 4.2 MMOL/L (3.5-5.1); SODIUM LEVEL 139 MMOL/L (136-145)
[2022-07-11] MEDS ORDERED: methylPREDNISolone 125MG 2ML VIAL IV ONE (13:35)
[2022-07-11] MEDS ORDERED: CLOB0.0548 TOP (14:05)
[2022-07-11] MEDS ORDERED: DOXY-443 PO (14:05)
[2022-07-11] MEDS ORDERED: PRED20TA PO (14:06)
[2022-07-11 14:19] VITALS: BP 184/102
== END 2022-07-11 14:24 | disposition home or self-care (01) ==
LOC: M ED 10:01
DX: L30.9 Dermatitis, unspecified (principal); I25.10 Atherosclerotic heart disease of native coronary artery without angina pectoris; J44.9 Chronic obstructive pulmonary disease, unspecified; Z99.81 Dependence on supplemental oxygen; F17.200 Nicotine dependence, unspecified, uncomplicated; Z79.899 Other long term (current) drug therapy; Z88.1 Allergy status to other antibiotic agents; Z91.040 Latex allergy status; Z79.51 Long term (current) use of inhaled steroids; Z79.52 Long term (current) use of systemic steroids
CPT/HCPCS: 36415; 80048; 85025; 85652; 86140; 99284; J2930

== ENCOUNTER 2022-07-23 02:03 | Emergency (ER) | payer OTHER ==
[~2022-07-23] VITALS: Ht 180.3 cm; Wt 73.0 kg
[2022-07-23 02:25] VITALS: BP 157/97
[2022-07-23 02:37] LABS: BASO % 0.2 % (0.0-1.0); EOS % 0.1 % (0.0-3.0); HEMATOCRIT 43.7 % (42.0-52.0); HEMOGLOBIN 14.4 g/dl (13.5-17.5); LYMPH # 4.1 10^3/uL (1.5-5.0); LYMPH % 28.7 % (24.0-44.0); MEAN CORPUSCULAR VOLUME 88.1 fl (80.0-96.0); MONO # 1.1 10^3/uL (0.0-0.8); MONO % 7.7 % (2.0-8.0); NEUTROPHILS # 8.9 10^3/uL (1.5-8.5); NEUTROPHILS % 62.3 % (36.0-66.0); PLATELET COUNT, AUTOMATED 261 10^3/uL (150-450); RED BLOOD COUNT 4.96 10^6/uL (4.30-6.10); WHITE BLOOD COUNT 14.3 10^3/uL (4.0-10.0)
[2022-07-23 03:47] LABS: INR 0.85; PROTHROMBIN TIME 11.8 SECONDS (12.5-14.5)
[2022-07-23 04:10] LABS: CK-MB VALUE MASS < 1.0 NG/ML (<3.6); CPK CREATINE PHOSPHOKINASE 78 U/L (46-171); MB/CK RELATIVE INDEX 1.28 (< OR =4)
== END 2022-07-23 04:47 | disposition left against medical advice (07) ==
LOC: M ED 02:03 → EDBD 02:03 → M ED 04:47
DX: R06.09 Other forms of dyspnea (principal); Z53.21 Procedure and treatment not carried out due to patient leaving prior to being seen by health care provider

== ENCOUNTER 2022-08-22 01:35 | Emergency (ER) | payer OTHER ==
[~2022-08-22] VITALS: Ht 180.3 cm; Wt 75.0 kg
[~2022-08-22 01:35] MED LIST changes: +CYAN-1; -CYAN100050
[2022-08-22 02:02] LABS: BASO # 0.1 10^3/uL (0.0-0.2); BASO % 0.6 % (0.0-1.0); EOS # 0.6 10^3/uL (0.0-0.5); EOS % 6.6 % (0.0-3.0); HEMATOCRIT 41.1 % (42.0-52.0); HEMOGLOBIN 13.3 g/dl (13.5-17.5); LYMPH # 2.6 10^3/uL (1.5-5.0); LYMPH % 30.2 % (24.0-44.0); MEAN CORPUSCULAR HEMOGLOBIN 28.9 pg (27.0-33.0); MEAN CORPUSCULAR HGB CONC 32.4 g/dl (32.0-36.5); MEAN CORPUSCULAR VOLUME 89.2 fl (80.0-96.0); MONO # 1.1 10^3/uL (0.0-0.8); MONO % 12.7 % (2.0-8.0); NEUTROPHILS # 4.2 10^3/uL (1.5-8.5); NEUTROPHILS % 49.8 % (36.0-66.0); PLATELET COUNT, AUTOMATED 254 10^3/uL (150-450); RED BLOOD COUNT 4.61 10^6/uL (4.30-6.10); WHITE BLOOD COUNT 8.5 10^3/uL (4.0-10.0)
[2022-08-22] MEDS ORDERED: ALBUTEROL SULFATE 2.5MG/0.5ML INH NEB SOLN INH ONE (02:05)
[2022-08-22] MEDS ORDERED: IPRATROPIUM 0.02% SOLN 0.5MG 2.5ML NEB INH ONE (02:05)
[2022-08-22 02:12] LABS: ABG O2 SATURATION 96.4 % (95.0-99.0); ABG PARTIAL PRESSURE CO2 47.1 mmHg (35.0-45.0); ABG PARTIAL PRESSURE O2 88.4 mmHg (75.0-100.0); ABG STANDARD HCO3 24.5 MMOL/L. (22.0-26.0); ABG TOTAL CO2 27.4 MMOL/L (22.0-29.0); ABG pH (ARTERIAL) 7.359 UNITS (7.350-7.450)
[2022-08-22 02:25] LABS: ALBUMIN 3.9 G/DL (3.2-5.2); ALKALINE PHOSPHATASE 70 U/L (46-116); ALT/SGPT 62 U/L (7.0-40); AST/SGOT 24 U/L (<34); BILIRUBIN,DIRECT 0.1 MG/DL (<0.4); BILIRUBIN,TOTAL 0.3 MG/DL (0.3-1.2); BLOOD UREA NITROGEN 11 MG/DL (9-23); CALCIUM LEVEL 9.2 MG/DL (8.5-10.1); CARBON DIOXIDE LEVEL 25 MMOL/L (20-31); CHLORIDE LEVEL 104 MMOL/L (98-107); CK-MB VALUE MASS < 1.0 NG/ML (<3.6); CPK CREATINE PHOSPHOKINASE 67 U/L (46-171); CREATININE FOR GFR 0.73 MG/DL (0.70-1.30); GLOMERULAR FILTRATION RATE > 60.0 (>56); GLUCOSE, FASTING 124 MG/DL (60-100); MB/CK RELATIVE INDEX 1.49 (< OR =4); POTASSIUM SERUM 4.2 MMOL/L (3.5-5.1); SODIUM LEVEL 136 MMOL/L (136-145); TOTAL PROTEIN 7.2 G/DL (5.7-8.2)
[2022-08-22 04:43] LABS: CK-MB VALUE MASS 1.1 NG/ML (<3.6)
[2022-08-22 04:47] LABS: MB/CK RELATIVE INDEX 1.96 (< OR =4)
[2022-08-22] MEDS ORDERED: ISOVUE-370 76% 100ML VIAL As Ordered ONE (05:03)
[2022-08-22 05:33] LABS: CK-MB VALUE MASS 1.1 NG/ML (<3.6)
[2022-08-22 05:34] LABS: MB/CK RELATIVE INDEX 1.92 (< OR =4)
[2022-08-22] MEDS ORDERED: PRED20TA PO (06:56)
[2022-08-22] MEDS ORDERED: ALBU8.5H INH (06:56)
[2022-08-22 07:09] VITALS: BP 112/72; TEMP 96.7; O2SAT 96
== END 2022-08-22 07:30 | disposition home or self-care (01) ==
LOC: M ED 01:35
DX: J44.1 Chronic obstructive pulmonary disease with (acute) exacerbation (principal); I10 Essential (primary) hypertension; E78.5 Hyperlipidemia, unspecified; F10.10 Alcohol abuse, uncomplicated; F17.210 Nicotine dependence, cigarettes, uncomplicated; Z88.8 Allergy status to other drugs, medicaments and biological substances; Z79.899 Other long term (current) drug therapy; Z88.1 Allergy status to other antibiotic agents; Z91.040 Latex allergy status; Z99.81 Dependence on supplemental oxygen
CPT/HCPCS: 36600; 71045; 71275; 80048; 80076; 82550; 82553; 82803; 83605; 85025; 87040; 87486; 87581; 87633; 87798; 93005; 93041; 94640; 94760; 99285; Q9967

== ENCOUNTER 2022-08-26 04:11 | Emergency (ER) | payer OTHER ==
[2022-08-26] MEDS ORDERED: IPRATROPIUM 0.5MG/ALBUTEROL 2.5MG INH SOL UD 3ML (DUONEB) NEB ONE ×2 (04:25→07:10)
[2022-08-26] MEDS ORDERED: ALBUTEROL SULFATE 2.5MG/0.5ML INH NEB SOLN NEB ONE (04:25)
[2022-08-26 05:25] LABS: BASO % 0.4 % (0.0-1.0); EOS # 0.2 10^3/uL (0.0-0.5); EOS % 1.5 % (0.0-3.0); HEMATOCRIT 38.3 % (42.0-52.0); HEMOGLOBIN 12.9 g/dl (13.5-17.5); LYMPH # 1.3 10^3/uL (1.5-5.0); LYMPH % 12.1 % (24.0-44.0); MEAN CORPUSCULAR HEMOGLOBIN 29.5 pg (27.0-33.0); MEAN CORPUSCULAR HGB CONC 33.7 g/dl (32.0-36.5); MEAN CORPUSCULAR VOLUME 87.6 fl (80.0-96.0); NEUTROPHILS # 7.2 10^3/uL (1.5-8.5); NEUTROPHILS % 69.7 % (36.0-66.0); PLATELET COUNT, AUTOMATED 314 10^3/uL (150-450); RED BLOOD COUNT 4.37 10^6/uL (4.30-6.10); WHITE BLOOD COUNT 10.3 10^3/uL (4.0-10.0)
[2022-08-26 05:45] LABS: BLOOD UREA NITROGEN 16 MG/DL (9-23); CALCIUM LEVEL 9.6 MG/DL (8.5-10.1); CARBON DIOXIDE LEVEL 27 MMOL/L (20-31); CHLORIDE LEVEL 101 MMOL/L (98-107); GLOMERULAR FILTRATION RATE > 60.0 (>56); GLUCOSE, FASTING 105 MG/DL (60-100); MAGNESIUM LEVEL 1.7 MG/DL (1.8-2.4); POTASSIUM SERUM 3.8 MMOL/L (3.5-5.1); SODIUM LEVEL 137 MMOL/L (136-145)
[2022-08-26 05:47] LABS: MONO # 1.7 10^3/uL (0.0-0.8)
[2022-08-26] MEDS ORDERED: MAG SULF 1GM/100ML (MAG RUN) 1 GM in IV 1 EA IV ONE (07:10)
[2022-08-26] MEDS ORDERED: PRED20TA PO (07:47)
[2022-08-26] MEDS ORDERED: HOME MED LIST COMPLETE! XX SCH (07:50)
[2022-08-26] MEDS ORDERED: PRED10TA2 PO (07:58)
[2022-08-26 08:38] VITALS: BP 121/69; TEMP 97; O2SAT 95
== END 2022-08-26 08:40 | disposition home or self-care (01) ==
LOC: EDBD 04:11 → M ED 04:11 → CANBEDREQ 07:55 → M ED 08:40
DX: J44.1 Chronic obstructive pulmonary disease with (acute) exacerbation (principal); I50.20 Unspecified systolic (congestive) heart failure; I10 Essential (primary) hypertension; J45.909 Unspecified asthma, uncomplicated; F17.200 Nicotine dependence, unspecified, uncomplicated; Z79.899 Other long term (current) drug therapy
CPT/HCPCS: 71045; 80048; 83735; 85025; 87486; 87581; 87633; 87798; 94640; 96365; 99284; J3475

== ENCOUNTER 2022-08-28 20:19 | Inpatient (IN) | payer OTHER ==
[~2022-08-28] VITALS: Ht 180.3 cm; Wt 75.0 kg
[2022-08-28 21:07] LABS: HEMATOCRIT 40.1 % (42.0-52.0); HEMOGLOBIN 13.2 g/dl (13.5-17.5); MEAN CORPUSCULAR HEMOGLOBIN 28.8 pg (27.0-33.0); MEAN CORPUSCULAR HGB CONC 32.9 g/dl (32.0-36.5); MEAN CORPUSCULAR VOLUME 87.6 fl (80.0-96.0); PLATELET COUNT, AUTOMATED 358 10^3/uL (150-450); RED BLOOD COUNT 4.58 10^6/uL (4.30-6.10)
[2022-08-28 21:34] LABS: ALBUMIN 3.3 G/DL (3.2-5.2); ALKALINE PHOSPHATASE 56 U/L (46-116); ALT/SGPT 24 U/L (7.0-40); AST/SGOT 11 U/L (<34); BILIRUBIN,DIRECT 0.1 MG/DL (<0.4); BILIRUBIN,TOTAL 0.4 MG/DL (0.3-1.2); BLOOD UREA NITROGEN 10 MG/DL (9-23); CALCIUM LEVEL 9.2 MG/DL (8.5-10.1); CARBON DIOXIDE LEVEL 29 MMOL/L (20-31); CHLORIDE LEVEL 100 MMOL/L (98-107); CREATININE FOR GFR 0.67 MG/DL (0.70-1.30); GLOMERULAR FILTRATION RATE > 60.0 (>56); GLUCOSE, FASTING 99 MG/DL (60-100); POTASSIUM SERUM 3.7 MMOL/L (3.5-5.1); SODIUM LEVEL 136 MMOL/L (136-145); TOTAL PROTEIN 6.6 G/DL (5.7-8.2)
[2022-08-28 21:36] LABS: THYROID STIMULATING HORMONE 1.488 uIU/ML (0.55-4.78); THYROXINE (T4) 9.7 UG/DL (4.5-10.9)
[2022-08-28 21:44] LABS: EOSINOPHILS 2 % (0-3); LYMPHOCYTES 27 % (16-44); METAMYELOCYTES 1 % (0-0); MONOCYTES 13 % (0-5); NEUTROPHILS 53 % (28-66); PLATELET ESTIMATE NORMAL (NORMAL)
[2022-08-28] MEDS ORDERED: IPRATROPIUM 0.5MG/ALBUTEROL 2.5MG INH SOL UD 3ML (DUONEB) NEB ONE (22:20)
[2022-08-28] MEDS ORDERED: IPRA0.00 NEB (22:40)
[2022-08-28] MEDS ORDERED: HOME MED LIST COMPLETE! XX SCH (22:45)
[2022-08-28] MEDS ORDERED: ALBUTEROL SULFATE 2.5MG/0.5ML INH NEB SOLN NEB PRN (23:10)
[2022-08-28] MEDS ORDERED: NS 1,000 ML IV ONE (23:45)
[2022-08-28] MEDS ORDERED: NS 1,000 ML IV SCH (23:45)
[2022-08-29 00:30] VITALS: BP 140/83; TEMP 99.1; O2SAT 94
[2022-08-29] MEDS: methylPREDNISolone 40MG 1ML VIAL IV SCH ×2 (00:45→05:55)
[2022-08-29] MEDS: NICOTINE 14 MG/24 HR TRANSDERMAL TD SCH ×2 (00:46→08:12)
[2022-08-29] MEDS: DOXYCYCLINE HYCLATE 100MG TABLET PO SCH ×3 (00:58→20:09)
[2022-08-29] MEDS: IPRATROPIUM 0.5MG/ALBUTEROL 2.5MG INH SOL UD 3ML (DUONEB) NEB SCH ×4 (01:20→19:42)
[2022-08-29] MEDS: HEPARIN SOD (PORCINE) 5000UNITS/ML 1ML VIAL/SYRINGE SC SCH ×3 (05:56→20:09)
[2022-08-29 06:02] VITALS: BP 148/82; TEMP 97.9; O2SAT 95
[2022-08-29 07:05] LABS: BLOOD UREA NITROGEN 10 MG/DL (9-23); CALCIUM LEVEL 8.6 MG/DL (8.5-10.1); CARBON DIOXIDE LEVEL 29 MMOL/L (20-31); CHLORIDE LEVEL 103 MMOL/L (98-107); CREATININE FOR GFR 0.62 MG/DL (0.70-1.30); GLOMERULAR FILTRATION RATE > 60.0 (>56); GLUCOSE, FASTING 161 MG/DL (60-100); POTASSIUM SERUM 4.8 MMOL/L (3.5-5.1); SODIUM LEVEL 138 MMOL/L (136-145)
[2022-08-29] MEDS ORDERED: NICOTINE 14 MG/24 HR TRANSDERMAL TD SCH (09:00)
[2022-08-29] MEDS ORDERED: ISOVUE-370 76% 100ML VIAL As Ordered ONE (09:13)
[2022-08-29] MEDS ORDERED: methylPREDNISolone 40MG 1ML VIAL IV ONE (09:15)
[2022-08-29 09:21] LABS: PROCALCITONIN 0.19 ng/ml
[2022-08-29] MEDS ORDERED: VENTAER INH (09:57)
[2022-08-29] MEDS ORDERED: CLOB5CR TOP (09:58)
[2022-08-29] MEDS ORDERED: ALBU2.5V10 INH (09:58)
[2022-08-29] MEDS ORDERED: MED REC COMMENT (10:02)
[2022-08-29] MEDS: TIOTROPIUM INHALER/CAPSULE (SPIRIVA) INH SCH (10:02)
[2022-08-29] MEDS: ADVAIR HFA 230/21MCG INHALER INH SCH ×2 (10:04→19:42)
[2022-08-29] MEDS: ACETAMINOPHEN TAB 650MG DOSE (2X325MG) PO PRN (10:48)
[2022-08-29 14:00] VITALS: BP 120/76; TEMP 99; O2SAT 94
[2022-08-29] MEDS: cefTRIAXone SOD 1 GM in D5W MINI-BAG PLUS 50 ML IV SCH (16:47)
[2022-08-29 17:06] LABS: CHOLESTEROL LEVEL 130 MG/DL (<200); CHOLESTEROL RISK RATIO 1.82 (<5); HDL CHOLESTEROL 71.1 MG/DL (>40); LDL CHOLESTEROL 47.7 MG/DL (<100); NON-HDL-C 58.9 MG/DL; TRIGLYCERIDES LEVEL 56 MG/DL (<150)
[2022-08-29] MEDS: methylPREDNISolone 125MG 2ML VIAL IV SCH (17:39)
[2022-08-29 20:13] VITALS: BP 140/83; TEMP 99.3; O2SAT 92
[2022-08-30] MEDS: IPRATROPIUM 0.5MG/ALBUTEROL 2.5MG INH SOL UD 3ML (DUONEB) NEB SCH ×6 (01:07→23:39)
[2022-08-30] MEDS: methylPREDNISolone 125MG 2ML VIAL IV SCH ×3 (02:09→17:15)
[2022-08-30] MEDS: guaiFENesin SYRUP 200MG 10ML UDC PO PRN ×3 (02:45→16:01)
[2022-08-30 05:16] VITALS: BP 133/75; TEMP 99; O2SAT 96
[2022-08-30] MEDS: HEPARIN SOD (PORCINE) 5000UNITS/ML 1ML VIAL/SYRINGE SC SCH ×3 (05:22→21:26)
[2022-08-30 06:16] LABS: HEMOGLOBIN 11.9 g/dl (13.5-17.5); MEAN CORPUSCULAR HEMOGLOBIN 28.5 pg (27.0-33.0); MEAN CORPUSCULAR HGB CONC 32.2 g/dl (32.0-36.5); MEAN CORPUSCULAR VOLUME 88.7 fl (80.0-96.0); PLATELET COUNT, AUTOMATED 328 10^3/uL (150-450); RED BLOOD COUNT 4.17 10^6/uL (4.30-6.10); WHITE BLOOD COUNT 9.7 10^3/uL (4.0-10.0)
[2022-08-30 06:45] LABS: ALBUMIN 2.6 G/DL (3.2-5.2); ALKALINE PHOSPHATASE 48 U/L (46-116); ALT/SGPT < 9 U/L (7.0-40); AST/SGOT < 8 U/L (<34); BILIRUBIN,TOTAL 0.2 MG/DL (0.3-1.2); BLOOD UREA NITROGEN 15 MG/DL (9-23); CALCIUM LEVEL 8.7 MG/DL (8.5-10.1); CARBON DIOXIDE LEVEL 26 MMOL/L (20-31); CHLORIDE LEVEL 104 MMOL/L (98-107); CREATININE FOR GFR 0.64 MG/DL (0.70-1.30); GLOMERULAR FILTRATION RATE > 60.0 (>56); GLUCOSE, FASTING 188 MG/DL (60-100); SODIUM LEVEL 140 MMOL/L (136-145); TOTAL PROTEIN 5.6 G/DL (5.7-8.2)
[2022-08-30] MEDS: TIOTROPIUM INHALER/CAPSULE (SPIRIVA) INH SCH (07:47)
[2022-08-30] MEDS: ADVAIR HFA 230/21MCG INHALER INH SCH ×2 (07:48→19:59)
[2022-08-30] MEDS: DOXYCYCLINE HYCLATE 100MG TABLET PO SCH ×2 (08:35→21:27)
[2022-08-30] MEDS: NICOTINE 14 MG/24 HR TRANSDERMAL TD SCH (08:36)
[2022-08-30] MEDS: ACETAMINOPHEN TAB 650MG DOSE (2X325MG) PO PRN ×2 (08:36→16:02)
[2022-08-30] MEDS ORDERED: ASPIRIN 81MG ENTERIC TABLET PO SCH (09:00)
[2022-08-30 14:00] VITALS: BP 150/88; TEMP 99.1; O2SAT 96
[2022-08-30] MEDS: cefTRIAXone SOD 1 GM in D5W MINI-BAG PLUS 50 ML IV SCH (17:15)
[2022-08-30 20:59] VITALS: BP 144/82; TEMP 99.7; O2SAT 94
[2022-08-31] VITALS (50 sets, daily range): BP systolic 52–200; BP diastolic 34–106; TEMP 97.3–99.6; O2SAT 57–100
[2022-08-31] MEDS: ACETAMINOPHEN TAB 650MG DOSE (2X325MG) PO PRN (01:08)
[2022-08-31] MEDS: guaiFENesin SYRUP 200MG 10ML UDC PO PRN (01:08)
[2022-08-31] MEDS: methylPREDNISolone 125MG 2ML VIAL IV SCH (01:08)
[2022-08-31] MEDS ORDERED: diphenhydrAMINE 50MG/ML VIAL As Ordered ONE (01:24)
[2022-08-31] MEDS ORDERED: FAMOTIDINE 20MG/2ML VIAL As Ordered ONE (01:29)
[2022-08-31] MEDS ORDERED: diphenhydrAMINE 50MG/ML VIAL IV STA (01:29)
[2022-08-31] MEDS ORDERED: FAMOTIDINE 20MG/2ML VIAL IVP ONE (01:30)
[2022-08-31] MEDS ORDERED: diphenhydrAMINE 50MG/ML VIAL IV ONE (01:30)
[2022-08-31] MEDS ORDERED: ISOVUE-370 76% 100ML VIAL As Ordered ONE (01:40)
[2022-08-31] MEDS ORDERED: NS 1,000 ML IV SCH (01:45)
[2022-08-31] MEDS ORDERED: MIDAZOLAM 100MG/100ML-0.9%NACL 100 MG in IV 1 EA IV SCH (01:45)
[2022-08-31] MEDS ORDERED: PHENYLEPHRINE 10MG/ML 1ML VIAL IV ONE ×2 (01:51→01:53)
[2022-08-31 01:54] LABS: HEMATOCRIT 45.9 % (42.0-52.0); HEMOGLOBIN 13.9 g/dl (13.5-17.5); MEAN CORPUSCULAR HEMOGLOBIN 28.7 pg (27.0-33.0); MEAN CORPUSCULAR HGB CONC 30.3 g/dl (32.0-36.5); MEAN CORPUSCULAR VOLUME 94.6 fl (80.0-96.0); PLATELET COUNT, AUTOMATED 337 10^3/uL (150-450); RED BLOOD COUNT 4.85 10^6/uL (4.30-6.10); WHITE BLOOD COUNT 15.6 10^3/uL (4.0-10.0)
[2022-08-31] MEDS ORDERED: fentaNYL CITRATE/NaCl 1,000 MCG in IV 1 EA IV SCH (02:00)
[2022-08-31] MEDS ORDERED: FENTANYL DRIP LOCK BOX KEY 1 EACH XX PRN (02:00)
[2022-08-31] MEDS ORDERED: MIDAZOLAM INJ 2MG/2ML VIAL IV STA (02:03)
[2022-08-31] MEDS ORDERED: MIDAZOLAM INJ 2MG/2ML VIAL As Ordered ONE (02:04)
[2022-08-31] MEDS ORDERED: PROPOFOL 1,000 MG/100 ML VIAL As Ordered ONE (02:11)
[2022-08-31] MEDS ORDERED: SODIUM CHLORIDE 0.9% 1000ML IV STA (02:14)
[2022-08-31] MEDS: propofoL 1,000 MG in IV 1 EA IV SCH ×4 (02:17→21:12)
[2022-08-31 02:39] LABS: ATYPICAL LYMPH 6 % (0-5); LYMPHOCYTES 39 % (16-44); METAMYELOCYTES 1 % (0-0); MONOCYTES 9 % (0-5); NEUTROPHILS 41 % (28-66)
[2022-08-31 02:40] LABS: PLATELET ESTIMATE NORMAL (NORMAL)
[2022-08-31 02:42] LABS: ABG BASE EXCESS -5.4 (-2.0-2.0); ABG HCO3 27.3 MMOL/L (22.0-26.0); ABG O2 SATURATION 98.5 % (95.0-99.0); ABG PARTIAL PRESSURE O2 153.9 mmHg (75.0-100.0); ABG STANDARD HCO3 20.1 MMOL/L. (22.0-26.0); ABG TOTAL CO2 30.2 MMOL/L (22.0-29.0)
[2022-08-31 02:44] LABS: ABG pH (ARTERIAL) 7.068 UNITS (7.350-7.450)
[2022-08-31 02:45] LABS: ABG PARTIAL PRESSURE CO2 96.7 mmHg (35.0-45.0)
[2022-08-31] MEDS ORDERED: VANCOMYCIN HCL 750 MG, VIAL MATE ADAPTER 1 EACH in D5W 250 ML IV ONE ×2 (03:00→04:00)
[2022-08-31] MEDS: IPRATROPIUM 0.5MG/ALBUTEROL 2.5MG INH SOL UD 3ML (DUONEB) NEB SCH ×4 (03:18→20:24)
[2022-08-31] MEDS: MIDAZOLAM 5MG/ML 1ML VIAL IV PRN ×3 (03:24→04:32)
[2022-08-31 03:37] LABS: ALBUMIN 2.7 G/DL (3.2-5.2); ALKALINE PHOSPHATASE 54 U/L (46-116); ALT/SGPT 34 U/L (7.0-40); AST/SGOT 42 U/L (<34); BILIRUBIN,TOTAL 0.2 MG/DL (0.3-1.2); BLOOD UREA NITROGEN 22 MG/DL (9-23); CALCIUM LEVEL 8.5 MG/DL (8.5-10.1); CARBON DIOXIDE LEVEL 27 MMOL/L (20-31); CHLORIDE LEVEL 106 MMOL/L (98-107); CREATININE FOR GFR 0.69 MG/DL (0.70-1.30); GLOMERULAR FILTRATION RATE > 60.0 (>56); GLUCOSE, FASTING 204 MG/DL (60-100); POTASSIUM SERUM 4.7 MMOL/L (3.5-5.1); SODIUM LEVEL 140 MMOL/L (136-145)
[2022-08-31] MEDS ORDERED: ePHEDrine INJ 50MG/ML 1ML VIAL IV STA (03:39)
[2022-08-31] MEDS ORDERED: ETOMIDATE INJ 20MG/10ML VIAL IV STA (03:39)
[2022-08-31] MEDS ORDERED: propofoL 200 MG/20 ML VIAL IV ONE (03:40)
[2022-08-31] MEDS: HEPARIN SOD (PORCINE) 5000UNITS/ML 1ML VIAL/SYRINGE SC SCH ×3 (05:36→21:12)
[2022-08-31 05:39] LABS: ABG BASE EXCESS -0.8 (-2.0-2.0); ABG HCO3 26.1 MMOL/L (22.0-26.0); ABG PARTIAL PRESSURE CO2 52.9 mmHg (35.0-45.0); ABG PARTIAL PRESSURE O2 142.8 mmHg (75.0-100.0); ABG STANDARD HCO3 23.8 MMOL/L. (22.0-26.0); ABG TOTAL CO2 27.7 MMOL/L (22.0-29.0); ABG pH (ARTERIAL) 7.311 UNITS (7.350-7.450)
[2022-08-31] MEDS ORDERED: PIPERACILLIN/TAZOBACTAM SOD 3.375 GM in D5W MINI-BAG PLUS 50 ML IV SCH (06:00)
[2022-08-31 06:47] LABS: HEMATOCRIT 38.5 % (42.0-52.0); HEMOGLOBIN 12.4 g/dl (13.5-17.5); MEAN CORPUSCULAR HEMOGLOBIN 29.2 pg (27.0-33.0); MEAN CORPUSCULAR HGB CONC 32.2 g/dl (32.0-36.5); MEAN CORPUSCULAR VOLUME 90.6 fl (80.0-96.0); PLATELET COUNT, AUTOMATED 245 10^3/uL (150-450); RED BLOOD COUNT 4.25 10^6/uL (4.30-6.10); WHITE BLOOD COUNT 19.3 10^3/uL (4.0-10.0)
[2022-08-31 07:18] LABS: ALBUMIN 2.4 G/DL (3.2-5.2); ALKALINE PHOSPHATASE 41 U/L (46-116); ALT/SGPT 16 U/L (7.0-40); AST/SGOT 23 U/L (<34); BILIRUBIN,TOTAL 0.2 MG/DL (0.3-1.2); BLOOD UREA NITROGEN 18 MG/DL (9-23); CALCIUM LEVEL 7.7 MG/DL (8.5-10.1); CARBON DIOXIDE LEVEL 25 MMOL/L (20-31); CHLORIDE LEVEL 105 MMOL/L (98-107); CREATININE FOR GFR 0.61 MG/DL (0.70-1.30); GLOMERULAR FILTRATION RATE > 60.0 (>56); GLUCOSE, FASTING 208 MG/DL (60-100); MAGNESIUM LEVEL 1.7 MG/DL (1.8-2.4); PHOSPHORUS LEVEL 4.1 MG/DL (2.5-4.9); POTASSIUM SERUM 5.2 MMOL/L (3.5-5.1); SODIUM LEVEL 138 MMOL/L (136-145); TOTAL PROTEIN 5.6 G/DL (5.7-8.2)
[2022-08-31] MEDS: CHLORHEXIDINE GLUCONATE 0.12 % 15ML UDC (PERIDEX ORAL RINSE) MT SCH ×2 (07:18→20:13)
[2022-08-31] MEDS: SENNA 8.6 MG TAB (SENOKOT) PO SCH (09:00)
[2022-08-31] MEDS: MIRALAX *UNIT DOSE* 17GM PACKET PO SCH (09:00)
[2022-08-31] MEDS: ASPIRIN 81MG CHEW TABLET PEG SCH (09:01)
[2022-08-31] MEDS ORDERED: DEXTROSE 50% 50ML SYRINGE IV PRN (09:15)
[2022-08-31] MEDS ORDERED: GLUCOSE 4GM CHEW TABLET PO PRN (09:15)
[2022-08-31] MEDS: PANTOPRAZOLE 40MG VIAL IV SCH (09:30)
[2022-08-31] MEDS: NICOTINE 14 MG/24 HR TRANSDERMAL TD SCH (09:30)
[2022-08-31 09:55] LABS: APPEARANCE, URINE CLEAR (CLEAR); BACTERIA, URINE AUTO NEGATIVE (NEGATIVE); BILIRUBIN, URINE AUTO NEGATIVE (NEGATIVE); BLOOD, URINE BLOOD NEGATIVE (NEGATIVE); COLOR, URINE COLORLESS (YELLOW); GLUCOSE, URINE (UA) AUTO NEGATIVE (NEGATIVE); KETONE, URINE AUTO NEGATIVE (NEGATIVE); LEUKOCYTE ESTERASE, URINE AUTO NEGATIVE (NEGATIVE); NITRITE, URINE AUTO NEGATIVE (NEGATIVE); PROTEIN, URINE AUTO NEGATIVE (NEGATIVE); RBC, URINE AUTO 0 /HPF (0-3); SPECIFIC GRAVITY URINE AUTO 1.011 (1.002-1.035); SQUAMOUS EPITHELIAL CELL UR AU 0 /HPF (0-6); UROBILINOGEN, URINE AUTO 0.2 mg/dL (0.0-2.0); WBC, URINE AUTO 0 /HPF (0-3)
[2022-08-31] MEDS: dexmedeTOMidine 200 MCG in IV 1 EA IV SCH ×2 (10:03→17:07)
[2022-08-31] MEDS: LACRILUBE (AKWA TEARS) OPHTH OINT 3.5GM OU SCH ×3 (10:06→20:14)
[2022-08-31] MEDS ORDERED: GLUCAGON INJ 1MG VIAL SC PRN (10:35)
[2022-08-31] MEDS: CEFEPIME HCL 2 GM in D5W MINI-BAG PLUS 50 ML IV SCH ×2 (11:10→20:13)
[2022-08-31] MEDS: INSULIN LISPRO (NovoLOG) PER UNIT SC SCH ×3 (12:02→23:43)
[2022-08-31] MEDS: VANCOMYCIN HCL 1,000 MG, VIAL MATE ADAPTER 1 EACH in NS 250 ML IV SCH ×2 (12:02→20:13)
[2022-08-31] MEDS: methylPREDNISolone 40MG 1ML VIAL IV SCH (12:08)
[2022-08-31] MEDS: MAG SULF 1GM/100ML (MAG RUN) 1 GM in IV 1 EA IV SCH ×2 (15:05→15:54)
[2022-08-31 15:46] LABS: BLOOD UREA NITROGEN 13 MG/DL (9-23); CALCIUM LEVEL 8.8 MG/DL (8.5-10.1); CARBON DIOXIDE LEVEL 27 MMOL/L (20-31); CHLORIDE LEVEL 108 MMOL/L (98-107); CREATININE FOR GFR 0.58 MG/DL (0.70-1.30); GLOMERULAR FILTRATION RATE > 60.0 (>56); GLUCOSE, FASTING 141 MG/DL (60-100); MAGNESIUM LEVEL 1.8 MG/DL (1.8-2.4); POTASSIUM SERUM 4.1 MMOL/L (3.5-5.1); SODIUM LEVEL 142 MMOL/L (136-145)
[2022-09-01] VITALS (24 sets, daily range): BP systolic 111–151; BP diastolic 66–94; TEMP 97.3–99.1; O2SAT 90–99
[2022-09-01] MEDS: IPRATROPIUM 0.5MG/ALBUTEROL 2.5MG INH SOL UD 3ML (DUONEB) NEB SCH ×4 (00:03→20:49)
[2022-09-01] MEDS: methylPREDNISolone 40MG 1ML VIAL IV SCH ×2 (02:36→12:57)
[2022-09-01] MEDS: propofoL 1,000 MG in IV 1 EA IV SCH ×2 (02:42→06:30)
[2022-09-01] MEDS: dexmedeTOMidine 200 MCG in IV 1 EA IV SCH (02:43)
[2022-09-01 04:29] LABS: BASO # 0.1 10^3/uL (0.0-0.2); BASO % 0.9 % (0.0-1.0); HEMATOCRIT 40.6 % (42.0-52.0); HEMOGLOBIN 13.1 g/dl (13.5-17.5); LYMPH # 2.6 10^3/uL (1.5-5.0); LYMPH % 17.1 % (24.0-44.0); MEAN CORPUSCULAR HEMOGLOBIN 28.6 pg (27.0-33.0); MEAN CORPUSCULAR HGB CONC 32.3 g/dl (32.0-36.5); MEAN CORPUSCULAR VOLUME 88.6 fl (80.0-96.0); MONO # 1.3 10^3/uL (0.0-0.8); NEUTROPHILS % 66.9 % (36.0-66.0); PLATELET COUNT, AUTOMATED 294 10^3/uL (150-450); RED BLOOD COUNT 4.58 10^6/uL (4.30-6.10); WHITE BLOOD COUNT 14.9 10^3/uL (4.0-10.0)
[2022-09-01 04:50] LABS: INR 0.98; PROTHROMBIN TIME 13.2 SECONDS (12.5-14.5); VANCOMYCIN LEVEL TROUGH 14.6 UG/ML (10.0-20.0)
[2022-09-01 04:56] LABS: ALBUMIN 2.5 G/DL (3.2-5.2); ALKALINE PHOSPHATASE 45 U/L (46-116); ALT/SGPT 30 U/L (7.0-40); AST/SGOT 22 U/L (<34); BILIRUBIN,TOTAL 0.3 MG/DL (0.3-1.2); BLOOD UREA NITROGEN 13 MG/DL (9-23); CALCIUM LEVEL 8.6 MG/DL (8.5-10.1); CARBON DIOXIDE LEVEL 29 MMOL/L (20-31); CHLORIDE LEVEL 107 MMOL/L (98-107); CREATININE FOR GFR 0.53 MG/DL (0.70-1.30); GLOMERULAR FILTRATION RATE > 60.0 (>56); GLUCOSE, FASTING 118 MG/DL (60-100); MAGNESIUM LEVEL 2.2 MG/DL (1.8-2.4); PHOSPHORUS LEVEL 3.1 MG/DL (2.5-4.9); POTASSIUM SERUM 3.7 MMOL/L (3.5-5.1); SODIUM LEVEL 143 MMOL/L (136-145); TOTAL PROTEIN 5.2 G/DL (5.7-8.2)
[2022-09-01 05:40] LABS: ABG BASE EXCESS 5.2 (-2.0-2.0); ABG HCO3 29.8 MMOL/L (22.0-26.0); ABG O2 SATURATION 96.6 % (95.0-99.0); ABG PARTIAL PRESSURE CO2 43.7 mmHg (35.0-45.0); ABG PARTIAL PRESSURE O2 78.8 mmHg (75.0-100.0); ABG STANDARD HCO3 29.1 MMOL/L. (22.0-26.0); ABG TOTAL CO2 31.2 MMOL/L (22.0-29.0); ABG pH (ARTERIAL) 7.452 UNITS (7.350-7.450)
[2022-09-01] MEDS: VANCOMYCIN HCL 1,000 MG, VIAL MATE ADAPTER 1 EACH in NS 250 ML IV SCH ×3 (06:05→20:30)
[2022-09-01] MEDS: CEFEPIME HCL 2 GM in D5W MINI-BAG PLUS 50 ML IV SCH ×3 (06:05→19:25)
[2022-09-01] MEDS: HEPARIN SOD (PORCINE) 5000UNITS/ML 1ML VIAL/SYRINGE SC SCH ×2 (06:06→13:02)
[2022-09-01] MEDS: INSULIN LISPRO (NovoLOG) PER UNIT SC SCH (06:10)
[2022-09-01] MEDS ORDERED: MIDAZOLAM INJ 2MG/2ML VIAL IV PRN (06:25)
[2022-09-01] MEDS: PANTOPRAZOLE 40MG VIAL IV SCH (08:43)
[2022-09-01] MEDS: SENNA 8.6 MG TAB (SENOKOT) PO SCH (08:43)
[2022-09-01] MEDS: ASPIRIN 81MG CHEW TABLET PEG SCH (08:43)
[2022-09-01] MEDS: CHLORHEXIDINE GLUCONATE 0.12 % 15ML UDC (PERIDEX ORAL RINSE) MT SCH ×2 (08:44→19:58)
[2022-09-01] MEDS: NICOTINE 14 MG/24 HR TRANSDERMAL TD SCH (08:44)
[2022-09-01] MEDS: LACRILUBE (AKWA TEARS) OPHTH OINT 3.5GM OU SCH (08:44)
[2022-09-01] MEDS: MIRALAX *UNIT DOSE* 17GM PACKET PO SCH (08:44)
[2022-09-02] VITALS: BP 141/80; TEMP 98; O2SAT 96
[2022-09-02] MEDS: methylPREDNISolone 40MG 1ML VIAL IV SCH (00:36)
[2022-09-02] MEDS: IPRATROPIUM 0.5MG/ALBUTEROL 2.5MG INH SOL UD 3ML (DUONEB) NEB SCH ×4 (02:11→19:07)
[2022-09-02 04:00] VITALS: BP 126/64; TEMP 98.1; O2SAT 93
[2022-09-02] MEDS: CEFEPIME HCL 2 GM in D5W MINI-BAG PLUS 50 ML IV SCH (04:04)
[2022-09-02] MEDS: VANCOMYCIN HCL 1,000 MG, VIAL MATE ADAPTER 1 EACH in NS 250 ML IV SCH ×3 (04:33→20:34)
[2022-09-02 05:00] LABS: HEMATOCRIT 41.7 % (42.0-52.0); HEMOGLOBIN 13.7 g/dl (13.5-17.5); MEAN CORPUSCULAR HEMOGLOBIN 28.6 pg (27.0-33.0); MEAN CORPUSCULAR HGB CONC 32.9 g/dl (32.0-36.5); MEAN CORPUSCULAR VOLUME 87.1 fl (80.0-96.0); PLATELET COUNT, AUTOMATED 306 10^3/uL (150-450); RED BLOOD COUNT 4.79 10^6/uL (4.30-6.10); WHITE BLOOD COUNT 13.8 10^3/uL (4.0-10.0)
[2022-09-02 05:27] LABS: ATYPICAL LYMPH 2 % (0-5); LYMPHOCYTES 21 % (16-44); MONOCYTES 4 % (0-5); NEUTROPHILS 73 % (28-66); PLATELET ESTIMATE NORMAL (NORMAL)
[2022-09-02 05:29] LABS: ANISOCYTOSIS 1+; MICROCYTOSIS 1+
[2022-09-02 05:36] LABS: BLOOD UREA NITROGEN 17 MG/DL (9-23); CARBON DIOXIDE LEVEL 30 MMOL/L (20-31); CHLORIDE LEVEL 100 MMOL/L (98-107); CREATININE FOR GFR 0.68 MG/DL (0.70-1.30); GLOMERULAR FILTRATION RATE > 60.0 (>56); GLUCOSE, FASTING 188 MG/DL (60-100); POTASSIUM SERUM 4.7 MMOL/L (3.5-5.1); SODIUM LEVEL 135 MMOL/L (136-145)
[2022-09-02 08:00] VITALS: BP 125/78; TEMP 98.7; O2SAT 98
[2022-09-02] MEDS: MIRALAX *UNIT DOSE* 17GM PACKET PO SCH (08:26)
[2022-09-02] MEDS: ASPIRIN 81MG CHEW TABLET PO SCH (08:27)
[2022-09-02] MEDS: PANTOPRAZOLE 40MG TAB (PROTONIX) PO SCH (08:27)
[2022-09-02] MEDS: CHLORHEXIDINE GLUCONATE 0.12 % 15ML UDC (PERIDEX ORAL RINSE) MT SCH ×2 (08:27→20:34)
[2022-09-02] MEDS: ENOXAPARIN 40MG/0.4ML SYRINGE (J1650 PER 10MG) SC SCH (08:27)
[2022-09-02] MEDS: NICOTINE 14 MG/24 HR TRANSDERMAL TD SCH (08:27)
[2022-09-02] MEDS: ATORVASTATIN 20 MG TAB PO SCH (08:27)
[2022-09-02 12:00] VITALS: BP 147/83; TEMP 97.7; O2SAT 91
[2022-09-02] MEDS: SYMBICORT 80/4.5MCG INHALER 6GM INH SCH ×2 (13:11→19:07)
[2022-09-02] MEDS: guaiFENesin ER 600 MG TAB PO SCH ×2 (13:27→20:34)
[2022-09-02] MEDS: predniSONE 20 MG TAB PO SCH (13:27)
[2022-09-02] MEDS: CitaloPRAM (CeleXA) 20 MG TAB PO SCH (13:27)
[2022-09-02] MEDS: TIOTROPIUM INHALER/CAPSULE (SPIRIVA) INH SCH (13:42)
[2022-09-02 14:50] VITALS: BP 140/79; TEMP 98.4; O2SAT 96
[2022-09-02 20:45] VITALS: BP 140/83; TEMP 98.6; O2SAT 96
[2022-09-03] MEDS: IPRATROPIUM 0.5MG/ALBUTEROL 2.5MG INH SOL UD 3ML (DUONEB) NEB SCH ×4 (02:42→19:10)
[2022-09-03] MEDS: VANCOMYCIN HCL 1,000 MG, VIAL MATE ADAPTER 1 EACH in NS 250 ML IV SCH ×3 (05:00→21:30)
[2022-09-03 07:19] LABS: HEMATOCRIT 38.4 % (42.0-52.0); HEMOGLOBIN 12.6 g/dl (13.5-17.5); MEAN CORPUSCULAR HEMOGLOBIN 28.5 pg (27.0-33.0); MEAN CORPUSCULAR HGB CONC 32.8 g/dl (32.0-36.5); MEAN CORPUSCULAR VOLUME 86.9 fl (80.0-96.0); PLATELET COUNT, AUTOMATED 254 10^3/uL (150-450); RED BLOOD COUNT 4.42 10^6/uL (4.30-6.10); WHITE BLOOD COUNT 12.1 10^3/uL (4.0-10.0)
[2022-09-03 07:30] LABS: BLOOD UREA NITROGEN 19 MG/DL (9-23); CALCIUM LEVEL 8.8 MG/DL (8.5-10.1); CARBON DIOXIDE LEVEL 32 MMOL/L (20-31); CHLORIDE LEVEL 100 MMOL/L (98-107); CREATININE FOR GFR 0.66 MG/DL (0.70-1.30); GLOMERULAR FILTRATION RATE > 60.0 (>56); GLUCOSE, FASTING 122 MG/DL (60-100); POTASSIUM SERUM 3.9 MMOL/L (3.5-5.1); SODIUM LEVEL 137 MMOL/L (136-145)
[2022-09-03 07:49] LABS: ATYPICAL LYMPH 4 % (0-5); EOSINOPHILS 2 % (0-3); LYMPHOCYTES 40 % (16-44); MONOCYTES 9 % (0-5); NEUTROPHILS 45 % (28-66); PLATELET ESTIMATE NORMAL (NORMAL)
[2022-09-03] MEDS: TIOTROPIUM INHALER/CAPSULE (SPIRIVA) INH SCH (08:02)
[2022-09-03] MEDS: SYMBICORT 80/4.5MCG INHALER 6GM INH SCH ×2 (08:02→19:10)
[2022-09-03] MEDS: predniSONE 20 MG TAB PO SCH (08:53)
[2022-09-03] MEDS: CitaloPRAM (CeleXA) 20 MG TAB PO SCH (08:53)
[2022-09-03] MEDS: ASPIRIN 81MG CHEW TABLET PO SCH (08:53)
[2022-09-03] MEDS: PANTOPRAZOLE 40MG TAB (PROTONIX) PO SCH (08:53)
[2022-09-03] MEDS: NICOTINE 14 MG/24 HR TRANSDERMAL TD SCH (08:53)
[2022-09-03] MEDS: guaiFENesin ER 600 MG TAB PO SCH ×2 (08:53→21:30)
[2022-09-03] MEDS: ATORVASTATIN 20 MG TAB PO SCH (08:53)
[2022-09-03] MEDS: ENOXAPARIN 40MG/0.4ML SYRINGE (J1650 PER 10MG) SC SCH (08:54)
[2022-09-03] MEDS: CHLORHEXIDINE GLUCONATE 0.12 % 15ML UDC (PERIDEX ORAL RINSE) MT SCH ×2 (08:54→21:30)
[2022-09-03] MEDS: MIRALAX *UNIT DOSE* 17GM PACKET PO SCH (08:54)
[2022-09-03 14:00] VITALS: BP 146/88; TEMP 98.6; O2SAT 93
[2022-09-03 20:50] VITALS: BP 155/90; TEMP 97.9; O2SAT 94
[2022-09-04] MEDS: IPRATROPIUM 0.5MG/ALBUTEROL 2.5MG INH SOL UD 3ML (DUONEB) NEB SCH ×3 (01:43→14:50)
[2022-09-04 05:45] VITALS: BP 157/82; TEMP 97.7; O2SAT 94
[2022-09-04] MEDS: VANCOMYCIN HCL 1,000 MG, VIAL MATE ADAPTER 1 EACH in NS 250 ML IV SCH ×2 (05:47→13:07)
[2022-09-04 05:55] LABS: HEMATOCRIT 37.6 % (42.0-52.0); HEMOGLOBIN 12.2 g/dl (13.5-17.5); MEAN CORPUSCULAR HEMOGLOBIN 28.7 pg (27.0-33.0); MEAN CORPUSCULAR HGB CONC 32.4 g/dl (32.0-36.5); MEAN CORPUSCULAR VOLUME 88.5 fl (80.0-96.0); PLATELET COUNT, AUTOMATED 228 10^3/uL (150-450); RED BLOOD COUNT 4.25 10^6/uL (4.30-6.10); WHITE BLOOD COUNT 11.7 10^3/uL (4.0-10.0)
[2022-09-04 07:10] LABS: LYMPHOCYTES 48 % (16-44); MONOCYTES 5 % (0-5); MYELOCYTES 1 % (0-0); NEUTROPHILS 46 % (28-66); PLATELET ESTIMATE NORMAL (NORMAL)
[2022-09-04] MEDS: SYMBICORT 80/4.5MCG INHALER 6GM INH SCH (07:52)
[2022-09-04] MEDS: TIOTROPIUM INHALER/CAPSULE (SPIRIVA) INH SCH (07:52)
[2022-09-04] MEDS ORDERED: amLODIPine 5 MG TAB PO SCH (09:00)
[2022-09-04] MEDS: MIRALAX *UNIT DOSE* 17GM PACKET PO SCH (09:00)
[2022-09-04] MEDS: CHLORHEXIDINE GLUCONATE 0.12 % 15ML UDC (PERIDEX ORAL RINSE) MT SCH (09:14)
[2022-09-04] MEDS: predniSONE 20 MG TAB PO SCH (09:15)
[2022-09-04] MEDS: guaiFENesin ER 600 MG TAB PO SCH (09:15)
[2022-09-04] MEDS: NICOTINE 14 MG/24 HR TRANSDERMAL TD SCH (09:15)
[2022-09-04] MEDS: ENOXAPARIN 40MG/0.4ML SYRINGE (J1650 PER 10MG) SC SCH (09:15)
[2022-09-04] MEDS: PANTOPRAZOLE 40MG TAB (PROTONIX) PO SCH (09:16)
[2022-09-04] MEDS: ASPIRIN 81MG CHEW TABLET PO SCH (09:16)
[2022-09-04] MEDS: CitaloPRAM (CeleXA) 20 MG TAB PO SCH (09:16)
[2022-09-04] MEDS: ATORVASTATIN 20 MG TAB PO SCH (09:16)
[2022-09-04] MEDS ORDERED: HYDR-3363 PO (10:45)
[2022-09-04] MEDS ORDERED: ASPI81TA26 PO (10:45)
[2022-09-04] MEDS ORDERED: PANT40TA29 PO (10:45)
[2022-09-04] MEDS ORDERED: ATOR1TAB21 PO (10:45)
[2022-09-04] MEDS ORDERED: MUCI600T31 PO (10:45)
[2022-09-04] MEDS ORDERED: CELE40TA PO (10:45)
[2022-09-04] MEDS ORDERED: DOXY-444 PO (10:45)
[2022-09-04] MEDS ORDERED: PRED10TA2 PO (10:45)
[2022-09-04] MEDS ORDERED: TREL1AER PO (10:45)
[2022-09-04] MEDS ORDERED: VENTAER INH (10:45)
[2022-09-04] MEDS ORDERED: NORV5TAB PO (10:45)
[2022-09-04 11:29] VITALS: BP 132/81
[2022-09-04 14:00] VITALS: BP 137/82; TEMP 98.4; O2SAT 93
== END 2022-09-04 15:52 | disposition home health service (06) | DRG 133 ==
LOC: EDBD 20:19 → M ED 20:19 → M ED INP 23:07 → ENRESERV 23:39 → M MSPAV 08-29 00:13 → M ICU 08-31 02:01 → M MSPAV 09-02 14:38
PROVIDERS: ADMIT Internal Medicine; ATTEND Internal Medicine
DX: J96.21 Acute and chronic respiratory failure with hypoxia (principal); J15.212 Pneumonia due to Methicillin resistant Staphylococcus aureus; I11.0 Hypertensive heart disease with heart failure; Z99.81 Dependence on supplemental oxygen; I50.32 Chronic diastolic (congestive) heart failure; E87.29 Other acidosis; J44.1 Chronic obstructive pulmonary disease with (acute) exacerbation; J44.0 Chronic obstructive pulmonary disease with (acute) lower respiratory infection; F17.210 Nicotine dependence, cigarettes, uncomplicated; J96.22 Acute and chronic respiratory failure with hypercapnia; I25.10 Atherosclerotic heart disease of native coronary artery without angina pectoris; N32.81 Overactive bladder; E53.8 Deficiency of other specified B group vitamins; F32.9 Major depressive disorder, single episode, unspecified; K21.9 Gastro-esophageal reflux disease without esophagitis; F10.20 Alcohol dependence, uncomplicated; Z90.49 Acquired absence of other specified parts of digestive tract; Z79.52 Long term (current) use of systemic steroids; Z88.1 Allergy status to other antibiotic agents; Z91.040 Latex allergy status; Z91.048 Other nonmedicinal substance allergy status; Z88.8 Allergy status to other drugs, medicaments and biological substances

== ENCOUNTER 2022-10-18 19:09 | Emergency (ER) | payer MEDICAID, OTHER ==
[~2022-10-18] VITALS: Ht 180.3 cm; Wt 75.8 kg
[~2022-10-18 19:09] MED LIST changes: +ATOR1TAB21 PO; +IPRA0.00 NEB; +NORV5TAB PO; +TREL1AER PO
[2022-10-18] MEDS ORDERED: methylPREDNISolone 125MG 2ML VIAL IV ONE (19:20)
[2022-10-18] MEDS ORDERED: FAMOTIDINE 20MG/2ML VIAL IVP ONE (19:20)
[2022-10-18 19:42] LABS: BASO % 0.4 % (0.0-1.0); EOS # 0.5 10^3/uL (0.0-0.5); EOS % 6.4 % (0.0-3.0); HEMATOCRIT 42.2 % (42.0-52.0); HEMOGLOBIN 13.7 g/dl (13.5-17.5); LYMPH # 2.6 10^3/uL (1.5-5.0); LYMPH % 35.1 % (24.0-44.0); MEAN CORPUSCULAR HEMOGLOBIN 29.3 pg (27.0-33.0); MEAN CORPUSCULAR HGB CONC 32.5 g/dl (32.0-36.5); MEAN CORPUSCULAR VOLUME 90.4 fl (80.0-96.0); MONO # 0.6 10^3/uL (0.0-0.8); MONO % 8.5 % (2.0-8.0); NEUTROPHILS # 3.7 10^3/uL (1.5-8.5); NEUTROPHILS % 49.5 % (36.0-66.0); PLATELET COUNT, AUTOMATED 226 10^3/uL (150-450); RED BLOOD COUNT 4.67 10^6/uL (4.30-6.10); WHITE BLOOD COUNT 7.5 10^3/uL (4.0-10.0)
[2022-10-18 20:11] LABS: ALBUMIN 3.5 G/DL (3.2-5.2); ALKALINE PHOSPHATASE 46 U/L (46-116); ALT/SGPT 20 U/L (7.0-40); AST/SGOT 24 U/L (<34); BILIRUBIN,DIRECT 0.1 MG/DL (<0.4); BILIRUBIN,TOTAL 0.4 MG/DL (0.3-1.2); BLOOD UREA NITROGEN 12 MG/DL (9-23); CALCIUM LEVEL 8.8 MG/DL (8.5-10.1); CARBON DIOXIDE LEVEL 22 MMOL/L (20-31); CHLORIDE LEVEL 109 MMOL/L (98-107); CREATININE FOR GFR 0.63 MG/DL (0.70-1.30); GLOMERULAR FILTRATION RATE > 60.0 (>56); GLUCOSE, FASTING 93 MG/DL (60-100); POTASSIUM SERUM 4.6 MMOL/L (3.5-5.1); SODIUM LEVEL 143 MMOL/L (136-145); TOTAL PROTEIN 6.5 G/DL (5.7-8.2)
[2022-10-18 20:18] LABS: RSV AMPLIFICATION NEGATIVE (NEGATIVE)
[2022-10-18] MEDS ORDERED: PRED20TA PO (23:10)
[2022-10-18 23:19] VITALS: BP 121/76; TEMP 98.8; O2SAT 98
== END 2022-10-18 23:22 | disposition home or self-care (01) ==
LOC: EDBD 19:09 → M ED 19:09
DX: T78.40XA Allergy, unspecified, initial encounter (principal); R22.0 Localized swelling, mass and lump, head; J44.9 Chronic obstructive pulmonary disease, unspecified; F17.200 Nicotine dependence, unspecified, uncomplicated; F10.10 Alcohol abuse, uncomplicated; Z88.1 Allergy status to other antibiotic agents; Z88.8 Allergy status to other drugs, medicaments and biological substances; Z91.040 Latex allergy status; Z91.048 Other nonmedicinal substance allergy status; Z79.52 Long term (current) use of systemic steroids; Z79.02 Long term (current) use of antithrombotics/antiplatelets; Z79.899 Other long term (current) drug therapy
CPT/HCPCS: 80048; 80076; 85025; 87631; 93041; 94760; 96374; 99291; J2930; S0028

== ENCOUNTER 2022-12-02 00:08 | Emergency (ER) | payer MEDICAID, OTHER ==
[~2022-12-02] VITALS: Ht 175.3 cm; Wt 55.0 kg
[~2022-12-02 00:08] MED LIST changes: -CEFD300C41 PO; +CEFD300C42 PO; -COZA1TAB PO; +LOSA-527 PO; -OXYB5TAB10 PO; +OXYB5TAB11 PO
[2022-12-02 00:29] VITALS: BP 121/81; TEMP 98.1; O2SAT 100
[2022-12-02 00:51] LABS: BASO % 0.3 % (0.0-1.0); EOS # 0.1 10^3/uL (0.0-0.5); EOS % 0.8 % (0.0-3.0); HEMATOCRIT 44.3 % (42.0-52.0); HEMOGLOBIN 14.7 g/dl (13.5-17.5); LYMPH # 1.3 10^3/uL (1.5-5.0); LYMPH % 21.5 % (24.0-44.0); MEAN CORPUSCULAR HEMOGLOBIN 29.8 pg (27.0-33.0); MEAN CORPUSCULAR HGB CONC 33.2 g/dl (32.0-36.5); MEAN CORPUSCULAR VOLUME 89.7 fl (80.0-96.0); MONO # 0.4 10^3/uL (0.0-0.8); MONO % 6.3 % (2.0-8.0); NEUTROPHILS # 4.4 10^3/uL (1.5-8.5); NEUTROPHILS % 70.8 % (36.0-66.0); PLATELET COUNT, AUTOMATED 127 10^3/uL (150-450); RED BLOOD COUNT 4.94 10^6/uL (4.30-6.10); WHITE BLOOD COUNT 6.2 10^3/uL (4.0-10.0)
[2022-12-02 01:13] LABS: ALKALINE PHOSPHATASE 68 U/L (46-116); ALT/SGPT 141 U/L (7.0-40); AST/SGOT 271 U/L (<34); BILIRUBIN,DIRECT 0.5 MG/DL (<0.4); BILIRUBIN,TOTAL 1.1 MG/DL (0.3-1.2); BLOOD UREA NITROGEN 17 MG/DL (9-23); CALCIUM LEVEL 8.1 MG/DL (8.5-10.1); CARBON DIOXIDE LEVEL 19 MMOL/L (20-31); CHLORIDE LEVEL 100 MMOL/L (98-107); CK-MB VALUE MASS 1.2 NG/ML (<3.6); CPK CREATINE PHOSPHOKINASE 98 U/L (46-171); CREATININE FOR GFR 0.64 MG/DL (0.70-1.30); GLOMERULAR FILTRATION RATE > 60.0 (>56); GLUCOSE, FASTING 90 MG/DL (60-100); MB/CK RELATIVE INDEX 1.22 (< OR =4); POTASSIUM SERUM 4.2 MMOL/L (3.5-5.1); SODIUM LEVEL 138 MMOL/L (136-145)
[2022-12-02 01:23] LABS: RSV AMPLIFICATION NEGATIVE (NEGATIVE)
[2022-12-02 02:27] LABS: CK-MB VALUE MASS < 1.0 NG/ML (<3.6)
[2022-12-02 02:36] LABS: CPK CREATINE PHOSPHOKINASE 101 U/L (46-171); MB/CK RELATIVE INDEX 0.99 (< OR =4)
[2022-12-02] MEDS ORDERED: PANTOPRAZOLE 40MG VIAL IV ONE (03:00)
[2022-12-02] MEDS ORDERED: IPRATROPIUM 0.5MG/ALBUTEROL 2.5MG INH SOL UD 3ML (DUONEB) NEB ONE (03:00)
[2022-12-02] MEDS ORDERED: PRED20TA PO (03:59)
[2022-12-02] MEDS ORDERED: PANT40TA29 PO (03:59)
== END 2022-12-02 05:13 | disposition home or self-care (01) ==
LOC: M ED 00:08
DX: J44.1 Chronic obstructive pulmonary disease with (acute) exacerbation (principal); K92.1 Melena; J30.81 Allergic rhinitis due to animal (cat) (dog) hair and dander; J30.2 Other seasonal allergic rhinitis; J30.89 Other allergic rhinitis; Z88.1 Allergy status to other antibiotic agents; Z88.8 Allergy status to other drugs, medicaments and biological substances; Z91.040 Latex allergy status
CPT/HCPCS: 71045; 80048; 80076; 82550; 82553; 85025; 87631; 93005; 93041; 94640; 96374; 99284; C9113

== ENCOUNTER 2022-12-31 07:13 | Inpatient (IN) | payer MEDICAID, OTHER, SELFPAY ==
[~2022-12-31] VITALS: Ht 172.7 cm; Wt 76.4 kg
[2022-12-31] MEDS ORDERED: LIDOCAINE 2% 5ML JELLY UROJET TOP ONE (07:45)
[2022-12-31] MEDS ORDERED: NS 2,150 ML in IV 1 EA IV ONE (07:45)
[2022-12-31] MEDS ORDERED: NOREPINEPHRINE 4MG IN D5 250ML 4 MG in IV 1 EA IV SCH ×2 (07:45)
[2022-12-31] MEDS ORDERED: PIPERACILLIN/TAZOBACTAM SOD 4.5 GM in D5W MINI-BAG PLUS 50 ML IV ONE (07:45)
[2022-12-31] MEDS ORDERED: ALBUTEROL SULFATE 2.5MG/0.5ML INH NEB SOLN INH ONE (07:50)
[2022-12-31] MEDS ORDERED: FAMOTIDINE IV BAG 20 MG in IV 1 EA IV ONE (07:50)
[2022-12-31] MEDS ORDERED: diphenhydrAMINE 12.5MG/5ML ELIXIR UDC PO ONE (07:50)
[2022-12-31] MEDS ORDERED: methylPREDNISolone 125MG 2ML VIAL IV ONE (07:50)
[2022-12-31] MEDS ORDERED: IPRATROPIUM 0.5MG/ALBUTEROL 2.5MG INH SOL UD 3ML (DUONEB) NEB ONE (07:50)
[2022-12-31] MEDS ORDERED: diphenhydrAMINE 50MG/ML VIAL IV STA (07:56)
[2022-12-31 07:57] LABS: BASO % 0.2 % (0.0-1.0); EOS # 0.9 10^3/uL (0.0-0.5); HEMATOCRIT 45.2 % (42.0-52.0); HEMOGLOBIN 14.8 g/dl (13.5-17.5); LYMPH # 3.4 10^3/uL (1.5-5.0); LYMPH % 19.5 % (24.0-44.0); MEAN CORPUSCULAR HEMOGLOBIN 30.3 pg (27.0-33.0); MEAN CORPUSCULAR HGB CONC 32.7 g/dl (32.0-36.5); MEAN CORPUSCULAR VOLUME 92.4 fl (80.0-96.0); MONO # 0.6 10^3/uL (0.0-0.8); MONO % 3.4 % (2.0-8.0); NEUTROPHILS # 12.2 10^3/uL (1.5-8.5); NEUTROPHILS % 71.1 % (36.0-66.0); PLATELET COUNT, AUTOMATED 240 10^3/uL (150-450); RED BLOOD COUNT 4.89 10^6/uL (4.30-6.10); WHITE BLOOD COUNT 17.2 10^3/uL (4.0-10.0)
[2022-12-31 07:57] LABS: ABG BASE EXCESS -9.6 (-2.0-2.0); ABG HCO3 16.7 MMOL/L (22.0-26.0); ABG O2 SATURATION 99.3 % (95.0-99.0); ABG PARTIAL PRESSURE CO2 37.7 mmHg (35.0-45.0); ABG PARTIAL PRESSURE O2 223.8 mmHg (75.0-100.0); ABG TOTAL CO2 17.8 MMOL/L (22.0-29.0); ABG pH (ARTERIAL) 7.263 UNITS (7.350-7.450)
[2022-12-31] MEDS: TIOTROPIUM INHALER/CAPSULE (SPIRIVA) INH SCH (08:00)
[2022-12-31] MEDS ORDERED: ISOVUE-370 76% 100ML VIAL As Ordered ONE (08:09)
[2022-12-31 08:18] LABS: INR 1.1; PROTHROMBIN TIME 13.9 SECONDS (12.5-14.5)
[2022-12-31 08:19] LABS: PARTIAL THROMBOPLASTIN TIME 24.8 SECONDS (24.8-34.2)
[2022-12-31] MEDS ORDERED: ONDANSETRON 4MG 2ML VIAL IV ONE (08:30)
[2022-12-31 08:39] LABS: AMYLASE 45 U/L (30-118)
[2022-12-31 08:40] LABS: ALBUMIN 3.5 G/DL (3.2-5.2); ALKALINE PHOSPHATASE 58 U/L (46-116); ALT/SGPT 20 U/L (7.0-40); AST/SGOT 30 U/L (<34); BILIRUBIN,DIRECT 0.1 MG/DL (<0.4); BILIRUBIN,TOTAL 0.2 MG/DL (0.3-1.2); BLOOD UREA NITROGEN 13 MG/DL (9-23); CALCIUM LEVEL 9.1 MG/DL (8.5-10.1); CARBON DIOXIDE LEVEL 17 MMOL/L (20-31); CHLORIDE LEVEL 106 MMOL/L (98-107); CK-MB VALUE MASS < 1.0 NG/ML (<3.6); CREATININE FOR GFR 1.43 MG/DL (0.70-1.30); GLOMERULAR FILTRATION RATE 53.9 (>56); GLUCOSE, FASTING 157 MG/DL (60-100); POTASSIUM SERUM 3.9 MMOL/L (3.5-5.1); SODIUM LEVEL 147 MMOL/L (136-145); TOTAL PROTEIN 6.3 G/DL (5.7-8.2)
[2022-12-31 08:48] LABS: CPK CREATINE PHOSPHOKINASE 54 U/L (46-171); MB/CK RELATIVE INDEX 1.85 (< OR =4)
[2022-12-31 08:51] LABS: PROCALCITONIN 0.11 ng/ml
[2022-12-31 09:00] LABS: ETHYL ALCOHOL (ETHANOL) 0.174 % (0.000-0.010)
[2022-12-31 09:01] LABS: SALICYLATE LEVEL < 3.0 MG/DL (<30)
[2022-12-31 10:20] LABS: APPEARANCE, URINE HAZY (CLEAR); BACTERIA, URINE AUTO NEGATIVE (NEGATIVE); BILIRUBIN, URINE AUTO NEGATIVE (NEGATIVE); BLOOD, URINE BLOOD 1+ (NEGATIVE); COLOR, URINE YELLOW (YELLOW); GLUCOSE, URINE (UA) AUTO NEGATIVE (NEGATIVE); GRANULAR CAST, URINE AUTO 1 /LPF; KETONE, URINE AUTO TRACE mg/dL (NEGATIVE); LEUKOCYTE ESTERASE, URINE AUTO NEGATIVE (NEGATIVE); MUCUS, URINE SMALL (NEGATIVE); NITRITE, URINE AUTO NEGATIVE (NEGATIVE); PROTEIN, URINE AUTO NEGATIVE (NEGATIVE); RBC, URINE AUTO 3 /HPF (0-3); SQUAMOUS EPITHELIAL CELL UR AU 0 /HPF (0-6); UROBILINOGEN, URINE AUTO 0.2 mg/dL (0.0-2.0); WBC, URINE AUTO 4 /HPF (0-3)
[2022-12-31 10:38] LABS: BARBITURATES URINE NEGATIVE (NEGATIVE); COCAINE METABOLITE URINE NEGATIVE (NEGATIVE); METHADONE URINE NEGATIVE (NEGATIVE)
[2022-12-31 10:39] LABS: AMPHETAMINES LEVEL URINE NEGATIVE (NEGATIVE); BENZODIAZEPINES URINE NEGATIVE (NEGATIVE); CANNABINOIDS URINE NEGATIVE (NEGATIVE); OPIATES URINE NEGATIVE (NEGATIVE); PHENCYCLIDINE URINE NEGATIVE (NEGATIVE)
[2022-12-31 10:42] LABS: MB/CK RELATIVE INDEX 1.85 (< OR =4)
[2022-12-31] MEDS ORDERED: MULTIVITAMIN -ADULT INJECTION 10 ML, THIAMINE INJection 100 MG, FOLIC ACID 1 MG in NS 1... IV ONE (11:05)
[2022-12-31] MEDS ORDERED: MED REC IN PROGRESS XX SCH ×2 (11:45→13:00)
[2022-12-31 12:20] LABS: MB/CK RELATIVE INDEX 2.66 (< OR =4)
[2022-12-31] MEDS ORDERED: BISA5TAB73 PO (12:53)
[2022-12-31] MEDS ORDERED: MIRA3350 (12:53)
[2022-12-31] MEDS ORDERED: VENTAER INH (12:53)
[2022-12-31] MEDS ORDERED: TREL1AER PO (12:53)
[2022-12-31] MEDS ORDERED: FOLI1TAB11 PO (12:53)
[2022-12-31] MEDS ORDERED: ASPI-161 PO (12:53)
[2022-12-31] MEDS ORDERED: CITA40TA6 PO (12:53)
[2022-12-31] MEDS ORDERED: PANT40TA29 PO (12:53)
[2022-12-31] MEDS ORDERED: ATOR1TAB21 PO (12:53)
[2022-12-31] MEDS ORDERED: PRED20TA PO (12:53)
[2022-12-31] MEDS ORDERED: HOME MED LIST COMPLETE! XX SCH (13:10)
[2022-12-31] MEDS: HEPARIN SOD (PORCINE) 5000UNITS/ML 1ML VIAL/SYRINGE SQ SCH ×2 (14:00→21:57)
[2022-12-31 15:40] VITALS: BP 157/88; TEMP 99.4; O2SAT 92
[2022-12-31 16:00] VITALS: BP 154/76; O2SAT 95
[2022-12-31] MEDS ORDERED: ALBUTEROL 90 MCG/ACT 8GM HFA INHALER INH PRN (18:25)
[2022-12-31] MEDS ORDERED: MIRALAX *UNIT DOSE* 17GM PACKET PO SCH (18:25)
[2022-12-31] MEDS ORDERED: BISACODYL 5MG TAB PO SCH (18:25)
[2022-12-31 19:00] VITALS: BP 163/95; O2SAT 96
[2022-12-31 20:00] VITALS: BP 143/87; TEMP 99.5; O2SAT 93
[2022-12-31] MEDS ORDERED: LR 1,000 ML IV ONE (20:00)
[2022-12-31] MEDS: amLODIPine 5 MG TAB PO SCH (20:09)
[2022-12-31] MEDS: PIPERACILLIN/TAZOBACTAM SOD 3.375 GM in D5W MINI-BAG PLUS 50 ML IV SCH (20:09)
[2022-12-31] MEDS ORDERED: LORazepam 2 MG TAB PO PRN (20:10)
[2022-12-31] MEDS: ADVAIR HFA 115/21MCG INHALER INH SCH (20:13)
[2022-12-31] MEDS ORDERED: BUDESONIDE 180MCG INHALER (PULMICORT FLEXHALER) INH SCH (21:00)
[2022-12-31 21:02] LABS: BLOOD UREA NITROGEN 16 MG/DL (9-23); CARBON DIOXIDE LEVEL 26 MMOL/L (20-31); CHLORIDE LEVEL 108 MMOL/L (98-107); CREATININE FOR GFR 0.95 MG/DL (0.70-1.30); GLOMERULAR FILTRATION RATE > 60.0 (>56); GLUCOSE, FASTING 199 MG/DL (60-100); POTASSIUM SERUM 4.1 MMOL/L (3.5-5.1); SODIUM LEVEL 144 MMOL/L (136-145)
[2022-12-31] MEDS: THIAMINE 100 MG TAB PO SCH (21:57)
[2022-12-31 22:00] VITALS: BP 144/74; O2SAT 93
[2023-01-01] VITALS (15 sets, daily range): BP systolic 101–141; BP diastolic 55–83; TEMP 97.6–99.3; O2SAT 94–99
[2023-01-01] MEDS ORDERED: ALBUTEROL SULFATE 2.5MG/0.5ML INH NEB SOLN NEB SCH
[2023-01-01] MEDS: PIPERACILLIN/TAZOBACTAM SOD 3.375 GM in D5W MINI-BAG PLUS 50 ML IV SCH ×4 (01:14→21:50)
[2023-01-01] MEDS: HEPARIN SOD (PORCINE) 5000UNITS/ML 1ML VIAL/SYRINGE SQ SCH (06:08)
[2023-01-01 06:32] LABS: BASO % 0.1 % (0.0-1.0); HEMATOCRIT 33.2 % (42.0-52.0); LYMPH # 1.5 10^3/uL (1.5-5.0); LYMPH % 12.8 % (24.0-44.0); MEAN CORPUSCULAR HEMOGLOBIN 30.6 pg (27.0-33.0); MEAN CORPUSCULAR HGB CONC 33.4 g/dl (32.0-36.5); MEAN CORPUSCULAR VOLUME 91.5 fl (80.0-96.0); MONO # 1.1 10^3/uL (0.0-0.8); MONO % 9.6 % (2.0-8.0); NEUTROPHILS % 77.1 % (36.0-66.0); PLATELET COUNT, AUTOMATED 183 10^3/uL (150-450); RED BLOOD COUNT 3.63 10^6/uL (4.30-6.10); WHITE BLOOD COUNT 11.7 10^3/uL (4.0-10.0)
[2023-01-01 06:33] LABS: HEMOGLOBIN 11.1 g/dl (13.5-17.5)
[2023-01-01 07:04] LABS: ALBUMIN 2.9 G/DL (3.2-5.2); ALKALINE PHOSPHATASE 43 U/L (46-116); ALT/SGPT 16 U/L (7.0-40); AST/SGOT 23 U/L (<34); BILIRUBIN,TOTAL 0.2 MG/DL (0.3-1.2); BLOOD UREA NITROGEN 18 MG/DL (9-23); CALCIUM LEVEL 8.3 MG/DL (8.5-10.1); CARBON DIOXIDE LEVEL 28 MMOL/L (20-31); CHLORIDE LEVEL 107 MMOL/L (98-107); CREATININE FOR GFR 0.79 MG/DL (0.70-1.30); GLOMERULAR FILTRATION RATE > 60.0 (>56); GLUCOSE, FASTING 133 MG/DL (60-100); POTASSIUM SERUM 4.1 MMOL/L (3.5-5.1); SODIUM LEVEL 141 MMOL/L (136-145); TOTAL PROTEIN 5.3 G/DL (5.7-8.2)
[2023-01-01] MEDS: ADVAIR HFA 115/21MCG INHALER INH SCH ×2 (07:58→19:31)
[2023-01-01] MEDS: ATORVASTATIN 20 MG TAB PO SCH (08:49)
[2023-01-01] MEDS: MULTIVITAMINS/MINERALS THERAP 1 TAB PO SCH (08:49)
[2023-01-01] MEDS: amLODIPine 5 MG TAB PO SCH (08:50)
[2023-01-01] MEDS: PANTOPRAZOLE 40MG TAB (PROTONIX) PO SCH (08:50)
[2023-01-01] MEDS: FOLIC ACID 1MG TAB PO SCH (08:50)
[2023-01-01] MEDS: THIAMINE 100 MG TAB PO SCH ×2 (08:50→21:51)
[2023-01-01] MEDS: ASPIRIN 81MG ENTERIC TABLET PO SCH (08:53)
[2023-01-01] MEDS ORDERED: FOLIC ACID 1MG TAB PO SCH (09:00)
[2023-01-01] MEDS ORDERED: THIAMINE 100 MG TAB PO SCH (09:00)
[2023-01-01] MEDS: TIOTROPIUM INHALER/CAPSULE (SPIRIVA) INH SCH (10:58)
[2023-01-01] MEDS: IPRATROPIUM 0.5MG/ALBUTEROL 2.5MG INH SOL UD 3ML (DUONEB) NEB SCH ×3 (10:58→19:31)
[2023-01-01] MEDS ORDERED: ENOXAPARIN 40MG/0.4ML SYRINGE (J1650 PER 10MG) SC ONE (13:00)
[2023-01-01] MEDS ORDERED: RIVAROXABAN 10MG TAB (XARELTO) PO SCH (18:00)
[2023-01-01] MEDS: KETOROLAC 0.5% OPHTH SOLN OU SCH ×2 (18:21→21:51)
[2023-01-01] MEDS: predniSONE 20 MG TAB PO SCH (18:21)
[2023-01-01] MEDS: VANICREAM MOISTURIZING SKIN CREAM 113GM TUBE TOP SCH (21:51)
[2023-01-02 02:06] VITALS: O2SAT 92
[2023-01-02] MEDS: PIPERACILLIN/TAZOBACTAM SOD 3.375 GM in D5W MINI-BAG PLUS 50 ML IV SCH ×2 (02:06→08:34)
[2023-01-02 05:12] VITALS: BP 135/93; TEMP 98.3; O2SAT 96
[2023-01-02 05:14] VITALS: BP 135/93
[2023-01-02 05:17] VITALS: TEMP 99.3
[2023-01-02 07:34] LABS: BASO % 0.1 % (0.0-1.0); HEMATOCRIT 38.2 % (42.0-52.0); HEMOGLOBIN 12.3 g/dl (13.5-17.5); LYMPH # 1.2 10^3/uL (1.5-5.0); LYMPH % 12.9 % (24.0-44.0); MEAN CORPUSCULAR HEMOGLOBIN 29.4 pg (27.0-33.0); MEAN CORPUSCULAR HGB CONC 32.2 g/dl (32.0-36.5); MEAN CORPUSCULAR VOLUME 91.2 fl (80.0-96.0); MONO # 0.6 10^3/uL (0.0-0.8); NEUTROPHILS # 7.6 10^3/uL (1.5-8.5); NEUTROPHILS % 80.5 % (36.0-66.0); PLATELET COUNT, AUTOMATED 196 10^3/uL (150-450); RED BLOOD COUNT 4.19 10^6/uL (4.30-6.10); WHITE BLOOD COUNT 9.5 10^3/uL (4.0-10.0)
[2023-01-02] MEDS: IPRATROPIUM 0.5MG/ALBUTEROL 2.5MG INH SOL UD 3ML (DUONEB) NEB SCH ×2 (07:41→11:09)
[2023-01-02] MEDS: TIOTROPIUM INHALER/CAPSULE (SPIRIVA) INH SCH (07:41)
[2023-01-02] MEDS: ADVAIR HFA 115/21MCG INHALER INH SCH (07:42)
[2023-01-02 08:08] LABS: BLOOD UREA NITROGEN 11 MG/DL (9-23); CALCIUM LEVEL 9.2 MG/DL (8.5-10.1); CARBON DIOXIDE LEVEL 26 MMOL/L (20-31); CHLORIDE LEVEL 104 MMOL/L (98-107); GLOMERULAR FILTRATION RATE > 60.0 (>56); GLUCOSE, FASTING 113 MG/DL (60-100); POTASSIUM SERUM 4.2 MMOL/L (3.5-5.1); SODIUM LEVEL 139 MMOL/L (136-145)
[2023-01-02 08:34] VITALS: BP 134/82
[2023-01-02] MEDS: predniSONE 20 MG TAB PO SCH (08:34)
[2023-01-02] MEDS: MULTIVITAMINS/MINERALS THERAP 1 TAB PO SCH (08:35)
[2023-01-02] MEDS: THIAMINE 100 MG TAB PO SCH (08:35)
[2023-01-02] MEDS: amLODIPine 5 MG TAB PO SCH (08:35)
[2023-01-02] MEDS: KETOROLAC 0.5% OPHTH SOLN OU SCH (08:35)
[2023-01-02] MEDS: ATORVASTATIN 20 MG TAB PO SCH (08:35)
[2023-01-02] MEDS: ASPIRIN 81MG ENTERIC TABLET PO SCH (08:35)
[2023-01-02] MEDS: PANTOPRAZOLE 40MG TAB (PROTONIX) PO SCH (08:35)
[2023-01-02] MEDS: FOLIC ACID 1MG TAB PO SCH (08:35)
[2023-01-02] MEDS: VANICREAM MOISTURIZING SKIN CREAM 113GM TUBE TOP SCH (08:36)
[2023-01-02] MEDS ORDERED: ENOXAPARIN 40MG/0.4ML SYRINGE (J1650 PER 10MG) SC SCH (09:00)
[2023-01-02] MEDS ORDERED: VENTAER INH (09:28)
[2023-01-02] MEDS ORDERED: KETO0.5S4 OU (09:28)
[2023-01-02] MEDS ORDERED: AMLO25TA PO (09:28)
[2023-01-02] MEDS ORDERED: EPIP0.3I2 IM (09:28)
[2023-01-02] MEDS ORDERED: PRED10TA2 PO (09:28)
[2023-01-02] MEDS ORDERED: TREL1AER PO (10:04)
== END 2023-01-02 13:57 | disposition home or self-care (01) | DRG 133 ==
LOC: EDBD 07:13 → M ED 07:13 → M ED INP 13:39 → M ICU 15:35 → M MSPAV 01-01 15:48
PROVIDERS: ADMIT Internal Medicine Pulmonary Disease; ATTEND Internal Medicine Nephrology
PROC: 02HV33Z Insertion of Infusion Device into Superior Vena Cava, Percutaneous Approach (ICD-10-PCS; principal; 2022-12-31)
DX: J96.21 Acute and chronic respiratory failure with hypoxia (principal); N17.9 Acute kidney failure, unspecified; I95.9 Hypotension, unspecified; E87.20 Acidosis, unspecified; J44.1 Chronic obstructive pulmonary disease with (acute) exacerbation; J45.901 Unspecified asthma with (acute) exacerbation; I25.10 Atherosclerotic heart disease of native coronary artery without angina pectoris; T78.2XXA Anaphylactic shock, unspecified, initial encounter; F17.200 Nicotine dependence, unspecified, uncomplicated; F10.129 Alcohol abuse with intoxication, unspecified; Z90.49 Acquired absence of other specified parts of digestive tract; Z79.82 Long term (current) use of aspirin; Z79.899 Other long term (current) drug therapy; Z88.1 Allergy status to other antibiotic agents; Z88.8 Allergy status to other drugs, medicaments and biological substances; Z91.040 Latex allergy status; Z91.048 Other nonmedicinal substance allergy status; K02.9 Dental caries, unspecified; I10 Essential (primary) hypertension; F32.A Depression, unspecified; Y90.9 Presence of alcohol in blood, level not specified

== ENCOUNTER 2023-06-10 21:30 | Emergency (ER) | payer MEDICAID, OTHER ==
[~2023-06-10] VITALS: Ht 180.3 cm; Wt 72.7 kg
[~2023-06-10 21:30] MED LIST changes: +AMLO25TA PO; -ASPI-161 PO; +ASPI-615 PO; +BISA5TAB73 PO; +CEFD1CAP9 PO; -CEFD300C42 PO; +EPIP0.3I2 IM; +KETO0.5S4 OU; +MIRA3350; -OXYB5TAB11 PO; +OXYB5TAB14 PO
[2023-06-10 23:17] LABS: BASO # 0.1 10^3/uL (0.0-0.2); BASO % 0.5 % (0.0-1.0); EOS # 0.5 10^3/uL (0.0-0.5); EOS % 5.2 % (0.0-3.0); HEMOGLOBIN 12.3 g/dl (13.5-17.5); LYMPH # 1.7 10^3/uL (1.5-5.0); LYMPH % 16.9 % (24.0-44.0); MEAN CORPUSCULAR HEMOGLOBIN 29.2 pg (27.0-33.0); MEAN CORPUSCULAR HGB CONC 33.2 g/dl (32.0-36.5); MEAN CORPUSCULAR VOLUME 87.9 fl (80.0-96.0); MONO # 0.9 10^3/uL (0.0-0.8); MONO % 8.9 % (2.0-8.0); NEUTROPHILS # 6.7 10^3/uL (1.5-8.5); NEUTROPHILS % 68.3 % (36.0-66.0); PLATELET COUNT, AUTOMATED 289 10^3/uL (150-450); RED BLOOD COUNT 4.21 10^6/uL (4.30-6.10); WHITE BLOOD COUNT 9.8 10^3/uL (4.0-10.0)
[2023-06-10 23:52] LABS: BLOOD UREA NITROGEN 13 MG/DL (9-23); CALCIUM LEVEL 9.1 MG/DL (8.3-10.6); CARBON DIOXIDE LEVEL 31 MMOL/L (20-31); CHLORIDE LEVEL 103 MMOL/L (98-107); CREATININE FOR GFR 0.61 MG/DL (0.70-1.30); GLOMERULAR FILTRATION RATE > 60.0 (>49); GLUCOSE, FASTING 114 MG/DL (74-106); POTASSIUM SERUM 4.3 MMOL/L (3.5-5.1); SODIUM LEVEL 139 MMOL/L (136-145)
[2023-06-11] MEDS: IPRATROPIUM 0.5MG/ALBUTEROL 2.5MG INH SOL UD 3ML (DUONEB) NEB ONE (05:32)
[2023-06-11] MEDS: ACETAMINOPHEN TAB 650MG DOSE (2X325MG) PO ONE (05:55)
[2023-06-11] MEDS: methylPREDNISolone 125MG 2ML VIAL IV ONE (05:55)
[2023-06-11 06:02] VITALS: BP 154/87
[2023-06-11 06:15] VITALS: O2SAT 99
[2023-06-11 06:34] VITALS: TEMP 98
== END 2023-06-11 06:51 | disposition home or self-care (01) ==
LOC: M ED 21:30
DX: L20.9 Atopic dermatitis, unspecified (principal); J44.9 Chronic obstructive pulmonary disease, unspecified; F17.210 Nicotine dependence, cigarettes, uncomplicated; F10.10 Alcohol abuse, uncomplicated; Z88.8 Allergy status to other drugs, medicaments and biological substances; Z91.040 Latex allergy status; Z91.09 Other allergy status, other than to drugs and biological substances; Z79.51 Long term (current) use of inhaled steroids; Z79.1 Long term (current) use of non-steroidal anti-inflammatories (NSAID); Z79.52 Long term (current) use of systemic steroids; Z79.899 Other long term (current) drug therapy
CPT/HCPCS: 80048; 85025; 93970; 94640; 96374; 99284; J2919

== ENCOUNTER → 2023-08-22 | Outpatient (CLI) | payer OTHER ==
[~2023-08-22] MED LIST changes: +DOXY-323 PO; +DOXY-440 PO; -DOXY-443 PO; -DOXY-444 PO
== END ==
LOC: M WHC 07:49
PROVIDERS: ATTEND Family Medicine Addiction Medicine
DX: N63.20 Unspecified lump in the left breast, unspecified quadrant (principal)

== ENCOUNTER 2023-10-29 02:20 | Emergency (ER) | payer OTHER ==
[~2023-10-29] VITALS: Ht 180.3 cm; Wt 72.7 kg
[2023-10-29] MEDS: IPRATROPIUM 0.5MG/ALBUTEROL 2.5MG INH SOL UD 3ML (DUONEB) NEB ONE ×2 (04:24→07:35)
[2023-10-29] MEDS: IPRATROPIUM 0.5MG/ALBUTEROL 2.5MG INH SOL UD 3ML (DUONEB) NEB PRN (04:24)
[2023-10-29 04:55] LABS: BASO % 0.8 % (0.0-1.0); EOS % 1.1 % (0.0-3.0); HEMATOCRIT 48.3 % (42.0-52.0); HEMOGLOBIN 16.3 g/dl (13.5-17.5); LYMPH # 0.6 10^3/uL (1.5-5.0); LYMPH % 15.8 % (24.0-44.0); MEAN CORPUSCULAR HEMOGLOBIN 30.3 pg (27.0-33.0); MEAN CORPUSCULAR HGB CONC 33.7 g/dl (32.0-36.5); MEAN CORPUSCULAR VOLUME 89.8 fl (80.0-96.0); MONO # 0.1 10^3/uL (0.0-0.8); MONO % 1.9 % (2.0-8.0); NEUTROPHILS # 2.9 10^3/uL (1.5-8.5); NEUTROPHILS % 79.8 % (36.0-66.0); PLATELET COUNT, AUTOMATED 159 10^3/uL (150-450); RED BLOOD COUNT 5.38 10^6/uL (4.30-6.10); WHITE BLOOD COUNT 3.6 10^3/uL (4.0-10.0)
[2023-10-29 05:21] LABS: ALBUMIN 4.2 G/DL (3.2-5.2); ALKALINE PHOSPHATASE 74 U/L (46-116); ALT/SGPT 154 U/L (7.0-40); AST/SGOT 224 U/L (<34); BILIRUBIN,DIRECT 0.3 MG/DL (<0.4); BILIRUBIN,TOTAL 0.7 MG/DL (0.3-1.2); BLOOD UREA NITROGEN 13 MG/DL (9-23); CALCIUM LEVEL 8.8 MG/DL (8.3-10.6); CARBON DIOXIDE LEVEL 25 MMOL/L (20-31); CHLORIDE LEVEL 98 MMOL/L (98-107); GLOMERULAR FILTRATION RATE > 60.0 (>49); GLUCOSE, FASTING 70 MG/DL (74-106); POTASSIUM SERUM 4.7 MMOL/L (3.5-5.1); SODIUM LEVEL 137 MMOL/L (136-145)
[2023-10-29 05:24] LABS: THYROID STIMULATING HORMONE 0.489 uIU/ML (0.55-4.78)
[2023-10-29 08:58] VITALS: O2SAT 93
[2023-10-29] MEDS ORDERED: VENTAER INH (08:58)
[2023-10-29] MEDS ORDERED: TREL1AER PO (08:58)
[2023-10-29 09:07] VITALS: BP 143/73; TEMP 97.8; O2SAT 94
== END 2023-10-29 09:10 | disposition home or self-care (01) ==
LOC: M ED 02:20 → EDBD 02:20 → M ED 09:10
DX: J44.1 Chronic obstructive pulmonary disease with (acute) exacerbation (principal); I44.7 Left bundle-branch block, unspecified; F17.210 Nicotine dependence, cigarettes, uncomplicated; F10.10 Alcohol abuse, uncomplicated; Z88.8 Allergy status to other drugs, medicaments and biological substances; Z91.09 Other allergy status, other than to drugs and biological substances; Z91.040 Latex allergy status; Z79.51 Long term (current) use of inhaled steroids; Z79.1 Long term (current) use of non-steroidal anti-inflammatories (NSAID); Z79.52 Long term (current) use of systemic steroids; Z79.899 Other long term (current) drug therapy

== ENCOUNTER 2023-11-07 22:31 | Emergency (ER) | payer OTHER ==
[~2023-11-07] VITALS: Ht 180.3 cm; Wt 64.0 kg
[2023-11-07 22:40] VITALS: TEMP 96.9
[2023-11-07 23:03] LABS: VENOUS BASE EXCESS 0.8 (-2.0-2.0); VENOUS HCO3 29.6 MMOL/L (23.0-27.0); VENOUS O2 SATURATION 61.9 % (60.0-80.0); VENOUS PARTIAL PRESSURE CO2 65.9 mmHg (38.0-50.0); VENOUS PARTIAL PRESSURE O2 34.3 mmHg (30.0-50.0); VENOUS STANDARD HCO3 24.3 MMOL/L; VENOUS TOTAL CO2 31.6 MMOL/L (24.0-28.0)
[2023-11-07 23:06] LABS: BASO % 0.7 % (0.0-1.0); EOS # 0.5 10^3/uL (0.0-0.5); EOS % 9.1 % (0.0-3.0); HEMATOCRIT 41.5 % (42.0-52.0); HEMOGLOBIN 13.4 g/dl (13.5-17.5); LYMPH # 2.3 10^3/uL (1.5-5.0); LYMPH % 41.6 % (24.0-44.0); MEAN CORPUSCULAR HEMOGLOBIN 30.2 pg (27.0-33.0); MEAN CORPUSCULAR HGB CONC 32.3 g/dl (32.0-36.5); MEAN CORPUSCULAR VOLUME 93.7 fl (80.0-96.0); MONO # 0.9 10^3/uL (0.0-0.8); MONO % 16.1 % (2.0-8.0); NEUTROPHILS # 1.8 10^3/uL (1.5-8.5); NEUTROPHILS % 32.1 % (36.0-66.0); PLATELET COUNT, AUTOMATED 251 10^3/uL (150-450); RED BLOOD COUNT 4.43 10^6/uL (4.30-6.10); WHITE BLOOD COUNT 5.6 10^3/uL (4.0-10.0)
[2023-11-07 23:21] LABS: INR 0.91
[2023-11-07] MEDS: IPRATROPIUM 0.5MG/ALBUTEROL 2.5MG INH SOL UD 3ML (DUONEB) NEB PRN (23:30)
[2023-11-07 23:39] LABS: ALBUMIN 3.9 G/DL (3.2-5.2); ALKALINE PHOSPHATASE 63 U/L (46-116); ALT/SGPT 93 U/L (7.0-40); AST/SGOT 65 U/L (<34); BILIRUBIN,DIRECT < 0.1 MG/DL (<0.4); BILIRUBIN,TOTAL 0.2 MG/DL (0.3-1.2); BLOOD UREA NITROGEN 7 MG/DL (9-23); CARBON DIOXIDE LEVEL 30 MMOL/L (20-31); CHLORIDE LEVEL 107 MMOL/L (98-107); CK-MB VALUE MASS < 1.0 NG/ML (<3.6); CPK CREATINE PHOSPHOKINASE 34 U/L (46-171); CREATININE FOR GFR 0.62 MG/DL (0.70-1.30); GLOMERULAR FILTRATION RATE > 60.0 (>49); GLUCOSE, FASTING 50 MG/DL (74-106); MB/CK RELATIVE INDEX 2.94 (< OR =4); POTASSIUM SERUM 4.3 MMOL/L (3.5-5.1); SODIUM LEVEL 141 MMOL/L (136-145); TOTAL PROTEIN 7.3 G/DL (5.7-8.2)
[2023-11-07] MEDS ORDERED: ISOVUE-370 76% 100ML VIAL As Ordered ONE (23:50)
[2023-11-08 01:30] LABS: CK-MB VALUE MASS < 1.0 NG/ML (<3.6)
[2023-11-08 01:32] LABS: CPK CREATINE PHOSPHOKINASE 41 U/L (46-171); MB/CK RELATIVE INDEX 2.43 (< OR =4)
[2023-11-08 05:06] VITALS: BP 115/78; O2SAT 95
[2023-11-08 05:56] LABS: VENOUS BASE EXCESS -1.5 (-2.0-2.0); VENOUS O2 SATURATION 98.5 % (60.0-80.0); VENOUS PARTIAL PRESSURE CO2 38.2 mmHg (38.0-50.0); VENOUS PARTIAL PRESSURE O2 109.6 mmHg (30.0-50.0); VENOUS PH 7.398 UNITS (7.330-7.430); VENOUS STANDARD HCO3 23.3 MMOL/L; VENOUS TOTAL CO2 24.2 MMOL/L (24.0-28.0)
[2023-11-08] MEDS ORDERED: TREL1AER PO (06:26)
[2023-11-08] MEDS ORDERED: VENTAER INH (06:26)
[2023-11-08] MEDS ORDERED: ALBU2.5V10 NEB (06:26)
== END 2023-11-08 06:52 | disposition home or self-care (01) ==
LOC: EDBD 22:31 → M ED 22:31
DX: J44.1 Chronic obstructive pulmonary disease with (acute) exacerbation (principal); R06.02 Shortness of breath; R00.0 Tachycardia, unspecified; F10.10 Alcohol abuse, uncomplicated; F17.210 Nicotine dependence, cigarettes, uncomplicated; Z88.1 Allergy status to other antibiotic agents; Z91.09 Other allergy status, other than to drugs and biological substances; Z91.040 Latex allergy status; Z79.51 Long term (current) use of inhaled steroids; Z79.1 Long term (current) use of non-steroidal anti-inflammatories (NSAID); Z79.52 Long term (current) use of systemic steroids; Z79.899 Other long term (current) drug therapy
CPT/HCPCS: 36415; 71045; 71275; 80048; 80076; 82550; 82553; 82803; 83880; 84443; 84484; 85025; 85610; 87426; 87486; 87581; 87633; 87798; 93005; 93041; 94640; 94760; 99285; Q9967

== ENCOUNTER 2023-12-06 02:21 | Emergency (ER) | payer OTHER ==
[~2023-12-06 02:21] MED LIST changes: -DOXY-323 PO; +DOXY-441 PO
[2023-12-06] MEDS: IPRATROPIUM 0.5MG/ALBUTEROL 2.5MG INH SOL UD 3ML (DUONEB) NEB ONE ×3 (02:42→04:39)
[2023-12-06 02:44] VITALS: O2SAT 93
[2023-12-06 03:35] LABS: BASO % 0.5 % (0.0-1.0); EOS # 0.3 10^3/uL (0.0-0.5); EOS % 6.8 % (0.0-3.0); HEMATOCRIT 41.7 % (42.0-52.0); LYMPH # 1.1 10^3/uL (1.5-5.0); LYMPH % 25.9 % (24.0-44.0); MEAN CORPUSCULAR HEMOGLOBIN 31.2 pg (27.0-33.0); MEAN CORPUSCULAR HGB CONC 33.6 g/dl (32.0-36.5); MEAN CORPUSCULAR VOLUME 92.9 fl (80.0-96.0); MONO # 0.4 10^3/uL (0.0-0.8); MONO % 10.7 % (2.0-8.0); NEUTROPHILS # 2.3 10^3/uL (1.5-8.5); NEUTROPHILS % 55.9 % (36.0-66.0); PLATELET COUNT, AUTOMATED 233 10^3/uL (150-450); RED BLOOD COUNT 4.49 10^6/uL (4.30-6.10); WHITE BLOOD COUNT 4.1 10^3/uL (4.0-10.0)
[2023-12-06] MEDS: LEVALBUTEROL 1.25MG 0.5ML CONCENTRATE NEB NEB ONE ×2 (03:40→03:41)
[2023-12-06 04:05] LABS: ALBUMIN 3.6 G/DL (3.2-5.2); ALKALINE PHOSPHATASE 72 U/L (46-116); ALT/SGPT 118 U/L (7.0-40); AST/SGOT 197 U/L (<34); BILIRUBIN,DIRECT 0.2 MG/DL (<0.4); BILIRUBIN,TOTAL 0.4 MG/DL (0.3-1.2); BLOOD UREA NITROGEN 9 MG/DL (9-23); CALCIUM LEVEL 8.8 MG/DL (8.3-10.6); CARBON DIOXIDE LEVEL 29 MMOL/L (20-31); CHLORIDE LEVEL 100 MMOL/L (98-107); CPK CREATINE PHOSPHOKINASE 62 U/L (46-171); GLOMERULAR FILTRATION RATE > 60.0 (>49); GLUCOSE, FASTING 129 MG/DL (74-106); MB/CK RELATIVE INDEX 3.22 (< OR =4); POTASSIUM SERUM 3.7 MMOL/L (3.5-5.1); SODIUM LEVEL 141 MMOL/L (136-145); TOTAL PROTEIN 7.1 G/DL (5.7-8.2)
[2023-12-06] MEDS: cefTRIAXone SOD 1 GM in D5W MINI-BAG PLUS 50 ML IV ONE (05:18)
[2023-12-06 06:15] VITALS: BP 128/78; O2SAT 96
[2023-12-06] MEDS ORDERED: IPRA0.00 INH (06:18)
[2023-12-06] MEDS ORDERED: PRED10TA2 PO (06:18)
[2023-12-06] MEDS ORDERED: CEFU1TAB22 PO (06:18)
[2023-12-06 06:30] VITALS: TEMP 97.7
== END 2023-12-06 07:02 | disposition home or self-care (01) ==
LOC: M ED 02:21 → EDBD 02:21 → M ED 07:02
DX: J44.1 Chronic obstructive pulmonary disease with (acute) exacerbation (principal); I45.81 Long QT syndrome; I10 Essential (primary) hypertension; K21.9 Gastro-esophageal reflux disease without esophagitis; E78.5 Hyperlipidemia, unspecified; F32.A Depression, unspecified; F17.210 Nicotine dependence, cigarettes, uncomplicated; Z79.51 Long term (current) use of inhaled steroids; Z79.1 Long term (current) use of non-steroidal anti-inflammatories (NSAID); Z79.899 Other long term (current) drug therapy; Z79.52 Long term (current) use of systemic steroids
CPT/HCPCS: 71045; 80048; 80076; 82550; 82553; 84484; 85025; 87486; 87581; 87633; 87798; 93005; 93041; 94640; 94760; 96374; 99285; J0696